=== PATIENT | female | born 1960 | race Caucasian/White ===

== ENCOUNTER 2020-06-09 08:50 | Outpatient (CLI) | payer MEDICARE, SELFPAY ==
[2020-06-09 09:10] LABS: Basophils Absolute Auto 0.04 K/mm3 (0.00-0.10); Basophils Percent Auto 0.5 % (0.0-1.0); Eosinophils Percent Auto 2.6 % (1.0-6.0); Hematocrit 46.1 % (35.0-49.0); Hemoglobin 13.5 g/dL (12.0-15.0); Immature Granulocyte Absolute 0.05 K/mm3 (0.00-0.00); Immature Granulocyte Percent A 0.7 % (0.0-0.0); Lymphocytes Percent Auto 26.2 % (18.0-42.0); Mean Corpuscular HGB Conc 29.3 g/dL (32.0-36.0); Mean Corpuscular Hemoglobin 27.4 pg (27.0-31.0); Mean Corpuscular Volume 93.5 fL (78.0-102.0); Mean Platelet Volume 8.6 fl (9.2-11.8); Monocytes Absolute Auto 0.61 K/mm3 (0.10-0.90); Neutrophils Absolute Auto 4.7 K/mm3 (1.7-7.2); Platelet Count Result 219 K/mm3 (150-420); Red Blood Count 4.93 M/mm3 (4.20-5.40); Red Cell Distribution Width 13.7 % (11.6-14.4); White Blood Count 7.6 K/mm3 (4.8-10.8)
[2020-06-09 09:37] LABS: Albumin Level 3.4 g/dL (3.4-5.0); Alkaline Phosphatase 115 U/L (46-116); Anion Gap 2 mmol/L (8-16); Aspartate Amino Transferase 11 U/L (15-37); Bilirubin,Total 0.6 mg/dL (0.00-1.00); Blood Urea Nitrogen 9 mg/dL (7-18); Calcium 8.8 mg/dL (8.5-10.1); Carbon Dioxide 34 mmol/L (21-32); Chloride 105 mmol/L (98-108); Estimated Glomerular Filt Rate > 60; Glucose 104 mg/dL (70-99); Osmolality Calculated 290 mOsm/kg (285-295); Potassium 4.4 mmol/L (3.5-5.1); Sodium 141 mmol/L (136-145); Total Protein 7.1 g/dL (6.4-8.2)
[2020-06-09 09:45] LABS: Alanine Aminotransferase 17 U/L (14-59)
== END 2020-06-09 08:51 | disposition home or self-care (01) ==
PROVIDERS: PCP Family Medicine; Visit Provider Family Medicine
DX: J96.11 Chronic respiratory failure with hypoxia (principal); J96.12 Chronic respiratory failure with hypercapnia
CPT/HCPCS: 36415; 80053; 85025

== ENCOUNTER 2020-12-22 09:30 | Outpatient (CLI) | payer MEDICARE, SELFPAY ==
[2020-12-22 09:42] LABS: Basophils Absolute Auto 0.08 K/mm3 (0.00-0.10); Basophils Percent Auto 0.8 % (0.0-1.0); Eosinophils Absolute Auto 0.27 K/mm3 (0.02-0.50); Eosinophils Percent Auto 2.8 % (1.0-6.0); Hematocrit 46.3 % (35.0-49.0); Hemoglobin 13.3 g/dL (12.0-15.0); Immature Granulocyte Absolute 0.05 K/mm3 (0.00-0.00); Immature Granulocyte Percent A 0.5 % (0.0-0.0); Lymphocytes Absolute Auto 2.71 K/mm3 (1.10-4.50); Lymphocytes Percent Auto 28.4 % (18.0-42.0); Mean Corpuscular HGB Conc 28.7 g/dL (32.0-36.0); Mean Corpuscular Hemoglobin 25.2 pg (27.0-31.0); Mean Corpuscular Volume 87.9 fL (78.0-102.0); Mean Platelet Volume 9.2 fl (9.2-11.8); Monocytes Absolute Auto 0.74 K/mm3 (0.10-0.90); Monocytes Percent Auto 7.8 % (2.0-11.0); Neutrophils Absolute Auto 5.7 K/mm3 (1.7-7.2); Neutrophils Percent Auto 59.7 % (50.0-70.0); Platelet Count Result 270 K/mm3 (150-420); Red Blood Count 5.27 M/mm3 (4.20-5.40); Red Cell Distribution Width 14.6 % (11.6-14.4); White Blood Count 9.5 K/mm3 (4.8-10.8)
[2020-12-22 11:14] LABS: Alanine Aminotransferase 20 U/L (14-59); Albumin Level 3.6 g/dL (3.4-5.0); Alkaline Phosphatase 108 U/L (46-116); Anion Gap 2 mmol/L (8-16); Aspartate Amino Transferase 11 U/L (15-37); Bilirubin,Total 0.6 mg/dL (0.00-1.00); Blood Urea Nitrogen 11 mg/dL (7-18); Calcium 9.2 mg/dL (8.5-10.1); Carbon Dioxide 39 mmol/L (21-32); Chloride 97 mmol/L (98-108); Cholesterol 189 mg/dL (0-200); Estimated Glomerular Filt Rate > 60; Glucose 101 mg/dL (70-99); HDL Direct 43 mg/dL (40-60); LDL Cholesterol Calculated 112 mg/dL (<130); Osmolality Calculated 285 mOsm/kg (285-295); Potassium 4.1 mmol/L (3.5-5.1); Sodium 138 mmol/L (136-145); Total Protein 7.6 g/dL (6.4-8.2); Triglycerides 168 mg/dL (0-150)
[2020-12-22 11:17] LABS: Thyroid Stimulating Hormone Reflex 1.11 u/IU/mL (0.36-3.74)
[2020-12-25 21:52] LABS: Vitamin D 25 Hydroxy 27 ng/mL (30-100)
== END 2020-12-22 09:31 | disposition home or self-care (01) ==
LOC: CHSLAB 09:32
PROVIDERS: PCP Family Medicine; Visit Provider Family Medicine
DX: J96.11 Chronic respiratory failure with hypoxia (principal); J96.12 Chronic respiratory failure with hypercapnia; E55.9 Vitamin D deficiency, unspecified; Z13.6 Encounter for screening for cardiovascular disorders; D34 Benign neoplasm of thyroid gland
CPT/HCPCS: 36415; 80053; 80061; 82306; 84443; 85025

== ENCOUNTER 2021-08-05 09:18 | Outpatient (CLI) | payer MEDICARE, SELFPAY ==
[2021-08-05 09:55] LABS: Basophils Absolute Auto 0.05 K/mm3 (0.00-0.10); Basophils Percent Auto 0.5 % (0.0-1.0); Eosinophils Absolute Auto 0.15 K/mm3 (0.02-0.50); Eosinophils Percent Auto 1.6 % (1.0-6.0); Hematocrit 45.4 % (35.0-49.0); Hemoglobin 12.3 g/dL (12.0-15.0); Immature Granulocyte Absolute 0.07 K/mm3 (0.00-0.00); Immature Granulocyte Percent A 0.7 % (0.0-0.0); Immature Platelet Fraction Pct 1.5 % (1.0-7.0); Immature Reticulocyte Fraction 24.2 % (2.0-16.52); Lymphocytes Absolute Auto 1.87 K/mm3 (1.10-4.50); Lymphocytes Percent Auto 19.9 % (18.0-42.0); Mean Corpuscular HGB Conc 27.1 g/dL (32.0-36.0); Mean Corpuscular Hemoglobin 22.2 pg (27.0-31.0); Mean Corpuscular Volume 81.9 fL (78.0-102.0); Mean Platelet Volume 9.2 fl (9.2-11.8); Monocytes Percent Auto 7.4 % (2.0-11.0); Neutrophils Absolute Auto 6.6 K/mm3 (1.7-7.2); Neutrophils Percent Auto 69.9 % (50.0-70.0); Platelet Count Result 283 K/mm3 (150-420); Red Blood Count 5.54 M/mm3 (4.20-5.40); Red Cell Distribution Width 16.6 % (11.6-14.4); Reticulocyte Hemoglobin Conten 18.5 pg (28.0-35.0); Reticulocyte Percent 1.64 % (0.50-1.50); Reticulocytes Absolute 0.09 M/mm3 (0.02-0.1); White Blood Count 9.4 K/mm3 (4.8-10.8)
[2021-08-05 10:50] LABS: Alanine Aminotransferase 12 U/L (14-59); Albumin Level 3.1 g/dL (3.4-5.0); Alkaline Phosphatase 120 U/L (46-116); Anion Gap 3 mmol/L (8-16); Aspartate Amino Transferase 13 U/L (15-37); Bilirubin,Total 0.4 mg/dL (0.00-1.00); Blood Urea Nitrogen 11 mg/dL (7-18); Calcium 8.9 mg/dL (8.5-10.1); Carbon Dioxide 40 mmol/L (21-32); Chloride 96 mmol/L (98-108); Estimated Glomerular Filt Rate > 60; Ferritin 10 ng/mL (8-252); Folic Acid 3.5 ng/mL (8.6->20); Glucose 101 mg/dL (70-99); Iron 23 ug/dL (50-170); Osmolality Calculated 287 mOsm/kg (285-295); Percent Iron Saturation 5 % (12-57); Potassium 4.6 mmol/L (3.5-5.1); Sodium 139 mmol/L (136-145); Total Protein 7.4 g/dL (6.4-8.2); Vitamin B12 714 pg/mL (193-986)
[2021-08-07 10:34] LABS: Vitamin D 25 Hydroxy 23 ng/mL (30-100)
== END 2021-08-05 09:19 | disposition home or self-care (01) ==
LOC: CHSLAB 09:25
PROVIDERS: PCP Family Medicine; Visit Provider Family Medicine
DX: J96.11 Chronic respiratory failure with hypoxia (principal); J96.12 Chronic respiratory failure with hypercapnia; E55.9 Vitamin D deficiency, unspecified; D34 Benign neoplasm of thyroid gland; R71.8 Other abnormality of red blood cells
CPT/HCPCS: 36415; 80053; 82306; 82607; 82728; 82746; 83540; 83550; 84443; 85025; 85046; 85055

== ENCOUNTER 2021-09-07 09:01 | Inpatient (IN) | payer OTHER, SELFPAY ==
[2021-09-07] VITALS (24 sets, daily range): BP systolic 95–131; BP diastolic 51–84; PULSE 91–116; RESP 18–27; TEMP 36.6–37.7; O2SAT 86–97; BMI 35.6
--- NOTE | ~2021-09-07 | XR_ITS ---
XR chest 1V portable DATE: 09/10/2021 07:33 INDICATION: Shortness of breath. Covid infection. TECHNIQUE: Portable AP chest on 09/10/2021 at 0708 hours COMPARISON: 09/09/2021 portable AP chest FINDINGS: There is prominent infiltrate in the left mid and lower lung zones and right lower lung zon e. There is cardiomegaly, pulmonary vascular congestion and redistribution. There is mild prominence of minor fissure which may indicate subpleural edema. Small pleural effusions are suggested. Diffuse osteopenia. IMPRESSION: Cardiomegaly, pulmonary vascular congestion, bilateral infiltrates, left greater the righ t. Congestive heart failure and pulmonary edema are suggested. Pneumonia is not excluded. Congestive changes and bilateral infiltrates are increased since 09/09/2021 Reviewed, dictated and finalized at location A. HER AND SHEARER IMPRESSION: Cardiomegaly, pulmonary vascular congestion, bilateral infiltrates, left greater the right. Congestive heart failure and pulmonary edema are sugge sted. Pneumonia is not excluded. Congestive changes and bilateral infiltrates are increased since 09/09/2021
--- NOTE | ~2021-09-07 | XR_ITS ---
EXAMINATION: XR chest 1V portable EXAM DATE: 09/07/2021 13:12 INDICATION: dyspnea, hypoxia. TECHNIQUE: Portable AP frontal chest x-ray was obtained. Comparison is made to prior examination from 08/09/2016. FINDINGS: There is moderate amount of ill-defined bilateral airspace disease, indistinct reticulation . Likely bilateral pneumonia and/or edema. No pneumothorax or pleural effusion. Cardiomediastinal french houette is normal. IMPRESSION: 1. Moderate amount of ill-defined pneumonia or edema. Reviewed, dictated and finalized at location G. HT INSPECTOR
--- NOTE | ~2021-09-07 | XR_ITS ---
EXAMINATION: XR chest 1V portable EXAM DATE: 09/09/2021 08:21 INDICATION: f/u covid pneumonia TECHNIQUE: Portable AP frontal chest x-ray was obtained. Comparison is made to prior examination from 09/08/2021. FINDINGS: There is cardiomegaly. Again there is bibasilar indistinct reticulation, could be edema or pneumonia. Small left pleural effusion. No pneumothorax. There are no osseous abnormalities identifie d. There is aortic arteriosclerosis. IMPRESSION: 1. Moderate amount of bilateral ill-defined airspace disease, pneumonia and/or edema. 2. Small left pleural effusion. 3. Cardiomegaly. Reviewed, dictated and finalized at location G. L MAKER FIREARMS IMPRESSION: 1. Moderate amount of bilateral ill-defined airspace disease, pneumonia and/o r edema. 2. Small left pleural effusion. 3. Cardiomegaly.
--- NOTE | ~2021-09-07 | CT_ITS ---
EXAMINATION: CT brain wo con EXAM DATE: 09/07/2021 13:12 INDICATION: Altered mental status Confusion/Covid Positve/Low O2sats/On Bipap . TECHNIQUE: Spiral CT of the head was performed without contrast. Axial, coronal and sagittal images were reviewed. The dose-length product (DLP) for this examination was 681.00 mGy-cm. The exposure w as tailored according to patient size, and iterative reconstruction (ASIR) was used as additional dos e reduction technique. Comparison is made to prior examination from 07/30/2017. FINDINGS: Study is limited due to patient motion. There is no acute intraparenchymal hemorrhage. No evidence of intraparenchymal brain mass lesion. No evidence of acute infarction. There is no mass e ffect or midline shift. The ventricles are normal in size. There are no extra-axial collections. T here are no acute calvarial fractures. The orbits are unremarkable. Soft tissue is unremarkable. Th e visualized sinuses and mastoid air cells are well aerated. IMPRESSION: 1. No acute intracranial findings. Reviewed, dictated and finalized at location G. IR ELECTRIC MOTOR ASSEMBLER
--- NOTE | 2021-09-07 09:06 | ECG_ITS ---
Measurements Intervals [place] Rate: 117 P: 79 ID: [id number] QRS: 62 QRSD: 110 T: 52 QT: 328 QTc: 458 Interpretive Statements SINUS TACHYCARDIA ATRIAL COUPLET AND ATRIAL PREMATURE COMPLEXES INCOMPLETE RIGHT BUNDLE BRANCH BLOCK BASELINE ARTIFACT- I, II, III, AVR, AVL, V1-V6 ABNORMAL ECG Electronically Signed On 09-07-2021 14:05:01 HVAC COMMERCIAL SALESPERSON by Hong Meade D.O.
--- NOTE | 2021-09-07 09:06 | ED.SOB ---
HPI - SOB/Dyspnea General Chief Complaint: Shortness of Breath/Dyspnea Stated Complaint: ambulance Time Seen by Provider: 09/07/21 09:06 Source: patient Mode of arrival: EMS Limitations: altered mental status History of Present Illness HPI Narrative: 61-year-old woman with a history of COPD with chronic respiratory failure both hypercarbic and hypoxic brought to the emergency department by EMS. Family states that she has not been well lately and seems confused and out of it. Patient does not give a good history but denies chest pain and vomiting. MD elicited complaint: shortness of breath and cough Pertinent past history: COPD and congestive heart failure Onset (ago): day(s) Timing: constant Severity: severe Known history of: COPD and congestive heart failure Associated symptoms: cough and wheezing Treatment prior to arrival: oxygen Related Data Home oxygen amount: other (Unknown) Home Medications Medication Instructions Recorded Confirmed amitriptyline 10 mg PO HS 09/07/21 09/07/21 apixaban [Eliquis] 2.5 mg PO BID 09/07/21 09/07/21 escitalopram oxalate 20 mg PO DAILY 09/07/21 09/07/21 furosemide 40 mg PO DAILY 09/07/21 09/07/21 hydroxyzine HCl 25 mg PO TID PRN 09/07/21 09/07/21 montelukast 10 mg PO DAILY 09/07/21 09/07/21 omeprazole 40 mg PO DAILY 09/07/21 09/07/21 ropinirole 4 mg PO HS 09/07/21 09/07/21 spironolactone 25 mg PO DAILY 09/07/21 09/07/21 trazodone 50 mg PO HS 09/07/21 09/07/21 Allergies Allergy/AdvReac Type Severity Reaction Status Date / Time No Known Drug Allergies Allergy Verified 09/07/21 09:22 Review of Systems Review of Systems: ROS unobtainable: Yes unobtainable due to mental status PMFSH Past Medical History Medical History (Updated 09/07/21 @ 14:03 by Chris Pineda MD) Congestive heart failure COPD (chronic obstructive pulmonary disease) CVA (cerebral vascular accident) GERD (gastroesophageal reflux disease) Jugular vein thrombosis Family History Family History (Updated 09/22/16 @ 14:11 by DOCTOR UNKNOWN) Father Hypertension Acute myocardial infarction Sibling Hypertension Mother Family history of heart disease in male family member before age 55 Brother Acute myocardial infarction Father Acute myocardial infarction Other Cerebrovascular accident Family history of cardiovascular disease Social History Social History (Updated 09/07/21 @ 11:38 by Chris Pineda MD) Smoking status: Current every day smoker Alcohol intake: never Living arrangements: with family Exam Const: General: alert and ill appearing acutely Nutritional Appearance: obese Other: Moderate acute respiratory distress. Hard of hearing. Mildly confused. HENMT: Head: normal to inspection Ears: external ears normal, TM's normal bilaterally and EAC's normal General nose exam: Normal nares present Face and sinus: normal facial exam Mouth: Yes moist mucous membranes Throat: posterior oropharynx normal Eyes: Conjunctivae: conjunctivae normal Pupils: Equal, round and reactive pupils present EOM: EOMs intact bilaterally Resp: Effort & Inspection: labored and tachypneic Auscultation: rales diffuse, wheezes throughout and diminished lung sounds Cardio: Rate: tachycardic Rhythm: regular rhythm GI: GI Palp: Yes Soft to palpation and No Tenderness to palpation present (GI) Skin: General skin exam: normal color, no jaundice and no pallor Rashes: no rashes Other: Cool, dry extremities Neuro: General: moves all extremities, no focal motor deficits and CN's II-XI intact bilaterally Speech: normal speech Extrem: General: normal to inspection and no clubbing, cyanosis or edema Psych: Mental Status: mental status grossly normal Affect: normal affect Attitude: cooperative Thought content: Yes Normal thought content present Course Vital Signs Vital signs: Vital Signs Temperature 37.7 C H 09/07/21 09:10 Pulse Rate 109 H 09/07/21 09:10 Respiratory Rate 26 H 08/24
[2021-09-07 09:34] LABS: Basophils Absolute Auto 0.02 K/mm3 (0.00-0.10); Basophils Percent Auto 0.2 % (0.0-1.0); Hematocrit 43.8 % (35.0-49.0); Hemoglobin 11.6 g/dL (12.0-15.0); Immature Granulocyte Absolute 0.29 K/mm3 (0.00-0.00); Immature Granulocyte Percent A 2.3 % (0.0-0.0); Lymphocytes Absolute Auto 0.92 K/mm3 (1.10-4.50); Lymphocytes Percent Auto 7.4 % (18.0-42.0); Mean Corpuscular HGB Conc 26.5 g/dL (32.0-36.0); Mean Corpuscular Volume 83.1 fL (78.0-102.0); Mean Platelet Volume 8.8 fl (9.2-11.8); Monocytes Absolute Auto 1.25 K/mm3 (0.10-0.90); Monocytes Percent Auto 10.1 % (2.0-11.0); Neutrophils Absolute Auto 9.9 K/mm3 (1.7-7.2); Nucleated Red Blood Cells Absolute Auto 0.05 K/mm3 (0.00-0.00); Nucleated Red Blood Cells Perc 0.4 % (0-0.0); Platelet Count Result 243 K/mm3 (150-420); Red Blood Count 5.27 M/mm3 (4.20-5.40); Red Cell Distribution Width 17.7 % (11.6-14.4); White Blood Count 12.4 K/mm3 (4.8-10.8)
[2021-09-07 09:36] LABS: Carboxyhemoglobin 1.4 % (0-1.5); HCO3 ABG 47.3 mmol/L (23-29); Methemoglobin ABG 0.3 % (0-1.5); Oxygen Content ABG 15.9 %vol (16.0-22.0); Oxygen Saturation ABG 90.9 % (95-97); Oxyhemoglobin 89.4 % (94-100); PO2 ABG 62.4 mmHg (80-90); Reduced Hemoglobin 8.9 % (0-1.5); Total Hemoglobin 12.6 g/dL (12.0-18.0); pH ABG 7.28 (7.35-7.45)
[2021-09-07 09:37] LABS: PCO2 ABG 102.5 mmHg (35-45)
--- NOTE | 2021-09-07 09:37 | PC.NURSE ---
Lab called with critical PCO2 of 102.5 Dr. Pineda notified.
[2021-09-07 09:38] LABS: Device NON-REBREATHER MASK; Modified Allen's Test Pass; Site Drawn RIGHT RADIAL
[2021-09-07 09:43] LABS: INR 1.1; Partial Thromboplastin Time 35.8 SEC (23.90-30.70); Prothrombin Time 11.9 Seconds (9.50-12.10)
[2021-09-07 09:48] LABS: Lactic Acid Reflex 1.3 mmol/L (0.4-2.0)
[2021-09-07] MEDS: methylPREDNISolone SOD SUCC 125 MG VIAL IV PUSH (09:48)
--- NOTE | 2021-09-07 09:50 | PC.NURSE ---
Spoke to who reports pt had not been feeling well this week. States pt had been concerned for UTI. Reports pt not wearing home oxygen like normal. States he was having a hard time getting her to keep her CPAP on and she was out of it. states pt is a full code. He was unaware of her home medications. Did reports she has COPD and wears home oxygen but was unsure how much. Dr. Pineda notified of this conversation.
[2021-09-07 09:51] LABS: Alanine Aminotransferase 12 U/L (14-59); Albumin Level 2.8 g/dL (3.4-5.0); Alkaline Phosphatase 103 U/L (46-116); Aspartate Amino Transferase 15 U/L (15-37); Bilirubin,Total 0.4 mg/dL (0.00-1.00); Blood Urea Nitrogen 23 mg/dL (7-18); Calcium 9.1 mg/dL (8.5-10.1); Chloride 89 mmol/L (98-108); Estimated CRCL calculation 56 ml/min; Estimated Glomerular Filt Rate 52; Glucose 115 mg/dL (70-99); Osmolality Calculated 290 mOsm/kg (285-295); Potassium 3.9 mmol/L (3.5-5.1); Sodium 138 mmol/L (136-145); Total Protein 8.1 g/dL (6.4-8.2)
[2021-09-07] MEDS: ALBUTEROL SULFATE NEB 2.5 MG/3 ML INH 5 MG INHALATION (09:52)
[2021-09-07 09:54] LABS: Carbon Dioxide > 45 mmol/L (21-32)
[2021-09-07 09:55] LABS: CRP 15.2 mg/dL (0.0-0.9)
[2021-09-07 10:09] LABS: Influenza A QL RT-PCR Negative (Negative); Influenza B QL RT-PCR Negative (Negative)
[2021-09-07 10:10] LABS: SARS-CoV-2 RNA PCR Positive (Negative)
[2021-09-07] MEDS: LORazepam INJ (*CRX) 2 MG/ML VIAL 0.5 MG IV PUSH (10:16)
--- NOTE | 2021-09-07 11:45 | PC.NURSE ---
Floor notified of admission. Isabell states they will need to move some things around on the floor and she will get back to bid writer with bed assignment.
--- NOTE | 2021-09-07 12:10 | PC.NURSE ---
Pt to CT with Fabio Wiseman Joann, RT, and comic book writer. Pt remianed on bi-pap during transport. Pulse ox and pulse being monitored during transport. Pt tolerated well.
--- NOTE | 2021-09-07 12:40 | PC.NURSE ---
Urine from stallings obtained and sent to lab.
[2021-09-07 12:47] LABS: Appearance Urine Sl Cloudy (Clear); Bilirubin Urine Negative (Negative); Color Urine Yellow (Yellow); Glucose Urine UA Negative (Negative); Ketones Urine Negative (Negative); Leukocyte Esterase Ur Negative LEU/UL (Negative); Nitrate Urine Negative (Negative); Protein Urine 1+ (Negative); Specific Grav Ur >= 1.030 (1.010-1.020); Urobilinogen Urine 0.2 mg/dL (0.2-1.0)
[2021-09-07 12:51] LABS: Add Urine Microscopic? YES; Bacteria Urine 4+ /hpf; Blood Urine Trace-Intact (Negative); RBC Urine None seen /hpf (0-2); Squamous Epithelial Cell Urine Rare /hpf (Few)
--- NOTE | 2021-09-07 12:54 | PC.NURSE ---
Spoke to Isabell on the floor and pt will be going to room 208 but they are awaiting one discharge to be able to have tele for this pt.
[2021-09-07 13:25] LABS: Base Excess ABG 19.7 mmol/L (0-2); HCO3 ABG 50.5 mmol/L (23-29); Oxygen Content ABG 16.7 %vol (16.0-22.0); Oxygen Saturation ABG 96.1 % (95-97); Oxyhemoglobin 93.5 % (94-100); PO2 ABG 88.2 mmHg (80-90); Total Hemoglobin 12.6 g/dL (12.0-18.0); pH ABG 7.33 (7.35-7.45)
[2021-09-07 13:27] LABS: Device BIPAP; Fractional Inspired Oxygen 60 %; Modified Allen's Test Pass; PCO2 ABG 98.2 mmHg (35-45); Site Drawn RIGHT RADIAL
--- NOTE | 2021-09-07 13:27 | PC.NURSE ---
Lab called with PCO2 of 98.2. Dr. Pineda notified.
[2021-09-07 13:29] LABS: Expiratory Pressure 5 cmH2O; Inspiratory Pressure 12 cmH2O
[2021-09-07 13:50] LABS: NT Pro B Type Natriuretic Pept 705 pg/mL (0-125); Troponin I 52.5 ng/L (0.00-60.4)
[2021-09-07] MEDS: methylPREDNISolone SOD SUCC 40 MG VIAL IV PUSH ×2 (14:40→22:34)
--- NOTE | 2021-09-07 15:47 | PC.NURSE ---
Phone report given to ROX Thomas
--- NOTE | 2021-09-07 16:14 | PHAR ---
LAURENT BARICITINIB RENAL DOSE CHANGE TO 2 MG DAILY STARTING TODAY (09/07/21) WITH DR. MAZA IN ER
[2021-09-07 17:31] LABS: Troponin I 43.1 ng/L (0.00-60.4)
[2021-09-07] MEDS: REMDESIVIR 200 MG/NS 250 ML 200 MG/250 ML BAG 250 MG IVPB (18:27)
[2021-09-07] MEDS: DEXTROSE 5%/0.9% SOD CHL 1,000 ML 100 ML IV CONT (18:27)
[2021-09-07 19:47] LABS: Base Excess ABG 27.3 mmol/L (0-2); HCO3 ABG 62.6 mmol/L (23-29); Oxygen Content ABG 16.4 %vol (16.0-22.0); Oxygen Saturation ABG 97.5 % (95-97); Oxyhemoglobin 96.3 % (94-100); PO2 ABG 114.8 mmHg (80-90)
[2021-09-07 19:52] LABS: Device BIPAP; Modified Allen's Test Pass; PCO2 ABG 163.5 mmHg (35-45); Site Drawn LEFT RADIAL
[2021-09-07 19:53] LABS: Expiratory Pressure 8 cmH2O; Inspiratory Pressure 16 cmH2O
[2021-09-08] VITALS (11 sets, daily range): BP systolic 100–111; BP diastolic 50–70; PULSE 85–107; RESP 16–28; TEMP 36.5–37; O2SAT 94–99
[2021-09-08 00:20] LABS: Base Excess ABG 25.3 mmol/L (0-2); HCO3 ABG 61.1 mmol/L (23-29); Oxygen Content ABG 12.2 %vol (16.0-22.0); Oxygen Saturation ABG 69.9 % (95-97); PO2 ABG 42.3 mmHg (80-90); Total Hemoglobin 12.6 g/dL (12.0-18.0); pH ABG 7.18 (7.35-7.45)
[2021-09-08 00:25] LABS: Device BIPAP; Modified Allen's Test Pass; Site Drawn RIGHT RADIAL
[2021-09-08 00:27] LABS: PCO2 ABG 166.4 mmHg (35-45)
[2021-09-08 00:28] LABS: Expiratory Pressure 10 cmH2O; Inspiratory Pressure 20 cmH2O
--- NOTE | 2021-09-08 01:01 | PC.NURSE ---
Pt much more responsive after changing oxygen delivery from BIPAP to High-Flow. Ice chips were brought to pt and room temp lowered since Cony verbalized she felt very warm. Dr. Pineda placed a fan in the room per pt request. Call light placed within reach and bed is in lowest position for pt safety.
[2021-09-08] MEDS: DEXTROSE 5%/0.9% SOD CHL 1,000 ML 100 ML IV CONT ×2 (04:35→14:29)
[2021-09-08] MEDS: methylPREDNISolone SOD SUCC 40 MG VIAL IV PUSH ×3 (06:02→22:53)
--- NOTE | 2021-09-08 06:19 | PC.NURSE ---
Pt rounding complete. Pt was moved up in bed and educated not to tug on her stallings catheter tube. Pt verbalized understanding, but reinforcement is needed. Call light within reach.
[2021-09-08 06:29] LABS: Hematocrit 43.4 % (35.0-49.0); Mean Corpuscular HGB Conc 25.3 g/dL (32.0-36.0); Mean Corpuscular Hemoglobin 21.6 pg (27.0-31.0); Mean Corpuscular Volume 85.1 fL (78.0-102.0); Mean Platelet Volume 9.4 fl (9.2-11.8); Platelet Count Result 210 K/mm3 (150-420); Red Cell Distribution Width 17.2 % (11.6-14.4); White Blood Count 11.1 K/mm3 (4.8-10.8)
[2021-09-08 06:37] LABS: INR 1.1; Prothrombin Time 11.9 Seconds (9.50-12.10)
[2021-09-08 06:46] LABS: Alanine Aminotransferase 12 U/L (14-59); Albumin Level 2.6 g/dL (3.4-5.0); Alkaline Phosphatase 90 U/L (46-116); Aspartate Amino Transferase 14 U/L (15-37); Bilirubin,Total 0.3 mg/dL (0.00-1.00); Blood Urea Nitrogen 24 mg/dL (7-18); Calcium 9.3 mg/dL (8.5-10.1); Chloride 96 mmol/L (98-108); Estimated CRCL calculation 81 ml/min; Estimated Glomerular Filt Rate > 60; Glucose 120 mg/dL (70-99); Osmolality Calculated 301 mOsm/kg (285-295); Potassium 3.9 mmol/L (3.5-5.1); Sodium 143 mmol/L (136-145); Total Protein 7.6 g/dL (6.4-8.2)
[2021-09-08 06:55] LABS: Carbon Dioxide > 45 mmol/L (21-32)
[2021-09-08 06:56] LABS: Lactic Acid Reflex 0.7 mmol/L (0.4-2.0)
[2021-09-08 07:14] LABS: Alanine Aminotransferase 12 U/L (14-59)
[2021-09-08 07:15] LABS: Aspartate Amino Transferase 14 U/L (15-37)
[2021-09-08 07:37] LABS: Base Excess ABG 28.1 mmol/L (0-2); HCO3 ABG 63.1 mmol/L (23-29); Oxygen Content ABG 13.5 %vol (16.0-22.0); Oxygen Saturation ABG 79.5 % (95-97); Oxyhemoglobin 78.6 % (94-100); PO2 ABG 45.4 mmHg (80-90); Total Hemoglobin 12.2 g/dL (12.0-18.0); pH ABG 7.23 (7.35-7.45)
[2021-09-08 07:59] LABS: Device BIPAP; Modified Allen's Test Pass; PCO2 ABG 155.6 mmHg (35-45); Site Drawn RIGHT RADIAL
[2021-09-08 08:00] LABS: NT Pro B Type Natriuretic Pept 627 pg/mL (0-125)
[2021-09-08 08:01] LABS: Expiratory Pressure 10 cmH2O; Inspiratory Pressure 20 cmH2O
[2021-09-08 08:39] LABS: Band Neutrophils Percent 0 % (0-6); Basophils Percent Manual 0 % (0-1); Eosinophils Percent Manual 0 % (1-6); Lymphocytes Absolute Manual 0.55 K/mm3 (1.1-4.5); Lymphocytes Percent Manual 5 % (18-44); Metamyelocytes Percent 4 %; Monocytes Absolute Manual 0.44 K/mm3 (0.1-0.90); Monocytes Percent Manual 4 % (3-9); Neutrophils Absolute Manual 9.65 K/mm3 (1.7-7.2); Neutrophils Percent Manual 87 % (46-73); Platelet Estimate Adequate (Adequate)
[2021-09-08] MEDS: MONTELUKAST SODIUM 10 MG TABLET PO (10:24)
[2021-09-08] MEDS: NICOTINE (*PBKC) 21 MG PATCH 1 PATCH TRANSDERM (10:24)
[2021-09-08] MEDS: PANTOPRAZOLE 40 MG TABLET PO ×2 (10:24→22:55)
[2021-09-08] MEDS: APIXABAN 2.5 MG TABLET PO ×2 (10:25→17:34)
[2021-09-08] MEDS: FUROSEMIDE 40 MG TABLET PO (10:25)
[2021-09-08] MEDS: ESCITALOPRAM OXALATE 10 MG TABLET 20 MG PO (10:25)
[2021-09-08] MEDS: SPIRONOLACTONE 25 MG TABLET PO (10:25)
[2021-09-08] MEDS: BARICITINIB 2 MG TABLET 4 MG PO (10:31)
[2021-09-08] MEDS: REMDESIVIR 100 MG/NS 250 ML 100 MG/250 ML BAG 250 MG IVPB (10:39)
--- NOTE | 2021-09-08 12:41 | PM.IMHP ---
H&P: HPI History of Present Illness Date/Time: 09/08/21 12:41 this is a 61-year-old female who presents to urgent care with shortness of breath and oxygenation status. Patient has a past medical history of heart failure, COPD, CAD, GERD, GERD,and Jugular vein thrombosis. Patient is 1 month and she was just told but she continues to be confused. Patient is alert and orientated to self only. Patient is a poor historian. Vital signs 107/70, 98, 26, 97.7, 99% on nasal cannula with FiO2 of 70%, WBC 12.4 hemoglobin 11.6 hematocrit 43.8 platelets 2.3 ABG pH 7.28 PCO2 102.5 PO2 62 on 4 bicarb 47.3 sodium 138, potassium 3.9, BUN 23 , creatinine 1.07, glucose 158, lactic acid 1.3, AST 15, ALT 12, alkaline phosphatase 103, troponin 57, CRP 15.2, BUN 75, COVID-positive chest x-ray indicate pneumonia or edema, CT of the head no acute finding EKG sinus tachycardia with a heart rate of 117. Patient will be admitted for COVID-pneumonia, AMS <MANDIE Nunez - Last Filed: 09/09/21 07:20> Chief Complaint: sob, ams <MANDIE Nunez - Last Filed: 09/09/21 07:20> Review of Systems Review of Systems: ROS unobtainable: Yes unobtainable due to mental status <MANDIE Nunez - Last Filed: 09/09/21 07:20> [facility] Past Medical History Medical History: Medical History (Updated 09/07/21 @ 14:03 by Chris Pineda MD) Congestive heart failure COPD (chronic obstructive pulmonary disease) CVA (cerebral vascular accident) GERD (gastroesophageal reflux disease) Jugular vein thrombosis <MANDIE Nunez - Last Filed: 09/09/21 07:20> Family History Family History: Family History (Updated 09/22/16 @ 14:11 by DOCTOR UNKNOWN) Father Hypertension Acute myocardial infarction Sibling Hypertension Mother Family history of heart disease in male family member before age 55 Brother Acute myocardial infarction Father Acute myocardial infarction Other Cerebrovascular accident Family history of cardiovascular disease <MANDIE Nunez - Last Filed: 09/09/21 07:20> Social History Social History: Social History (Updated 09/07/21 @ 11:38 by Chris Pineda MD) Smoking packs per day: 1 Smoking cigarettes per day: 20.0 Smoking status: Current every day smoker Tobacco type: cigarettes Second hand tobacco smoke exposure: Yes Alcohol intake: never Living arrangements: with family <MANDIE Nunez - Last Filed: 09/09/21 07:20> Meds Home Medications and Allergies Home medications: Home Medications Medication Instructions Recorded Confirmed Type amitriptyline 10 mg PO HS 09/07/21 09/07/21 History apixaban [Eliquis] 2.5 mg PO BID 09/07/21 09/07/21 History escitalopram oxalate 20 mg PO DAILY 09/07/21 09/07/21 History furosemide 40 mg PO DAILY 09/07/21 09/07/21 History hydroxyzine HCl 25 mg PO TID PRN 09/07/21 09/07/21 History montelukast 10 mg PO DAILY 09/07/21 09/07/21 History omeprazole 40 mg PO DAILY 09/07/21 09/07/21 History ropinirole 4 mg PO HS 09/07/21 09/07/21 History spironolactone 25 mg PO DAILY 09/07/21 09/07/21 History trazodone 50 mg PO HS 09/07/21 09/07/21 History <MANDIE Nunez - Last Filed: 09/09/21 07:20> Allergies/Adverse reactions: Allergies Allergy/AdvReac Type Severity Reaction Status Date / Time No Known Drug Allergies Allergy Verified 09/07/21 09:22 <MANDIE Nunez - Last Filed: 09/09/21 07:20> Vital Signs Vital Signs - 24 hr 09/07/21 13:00 09/07/21 14:00 09/07/21 14:25 Temperature Pulse Rate 101 H 94 98 Respiratory Rate 18 18 20 Blood Pressure 95/52 L 129/84 Pulse Oximetry 93 97 95 09/07/21 16:21 09/07/21 16:30 09/07/21 16:42 Temperature 97.8 F Pulse Rate 98 102 H Respiratory Rate 24 H 22 H 24 H Blood Pressure 127/51 L 104/80 Pulse Oximetry 97 94 96 09/07/21 17:00 09/07/21 19:00 09/07/21 20:00 Temperature 98 F Pulse Rate 92 95 91 Respiratory Rate 19
[2021-09-08] MEDS: guaiFENesin 12 HR 600 MG TABCR 1200 MG PO ×2 (17:33→22:56)
[2021-09-08] MEDS: BENZONATATE 100 MG CAPSULE 200 MG PO (17:33)
[2021-09-08] MEDS: ALBUTEROL SULFATE (*SP) INHALER 2 PUFF INHALATION ×2 (17:34→22:56)
[2021-09-08] MEDS: FLUTICASONE PROPIONATE 0.05% NA SPR 16 GM BTL (*BKC) 1 SPRAY NASAL ×2 (17:34→22:56)
[2021-09-08] MEDS: LORATADINE 10 MG TABLET PO (17:34)
[2021-09-08] MEDS: AMITRIPTYLINE HCL 10 MG TABLET PO (22:54)
[2021-09-08] MEDS: rOPINIRole HCL 1 MG TABLET 4 MG PO (22:54)
[2021-09-08] MEDS: traZODone HCL 50 MG TABLET PO (22:56)
[2021-09-09] VITALS (10 sets, daily range): BP systolic 107–145; BP diastolic 48–78; PULSE 76–108; RESP 17–23; TEMP 35.5–37.1; O2SAT 74–100
--- NOTE | 2021-09-09 02:27 | PC.NURSE ---
Pt rounding complete. Date on whiteboard updated. Pt was showing signs of confusion asking, Did they leave, and can I go to bed? Pt was reoriented to her room and told she was already in bed. HOB slightly lowered to have Cony be a bit more comfortable. Call light is within reach and bed is in lowest position with the bed alarm on for pt safety.
[2021-09-09] MEDS: DEXTROSE 5%/0.9% SOD CHL 1,000 ML 100 ML IV CONT (03:30)
[2021-09-09] MEDS: methylPREDNISolone SOD SUCC 40 MG VIAL IV PUSH ×3 (05:19→20:40)
[2021-09-09 06:31] LABS: HCO3 ABG 55.2 mmol/L (23-29); Oxygen Content ABG 15.4 %vol (16.0-22.0); Oxygen Saturation ABG 97.2 % (95-97); Oxyhemoglobin 96.7 % (94-100); PO2 ABG 103.1 mmHg (80-90); Total Hemoglobin 11.2 g/dL (12.0-18.0); pH ABG 7.27 (7.35-7.45)
[2021-09-09 06:32] LABS: Basophils Absolute Auto 0.02 K/mm3 (0.00-0.10); Basophils Percent Auto 0.2 % (0.0-1.0); Hematocrit 39.8 % (35.0-49.0); Hemoglobin 10.2 g/dL (12.0-15.0); Immature Granulocyte Absolute 0.22 K/mm3 (0.00-0.00); Immature Granulocyte Percent A 2.7 % (0.0-0.0); Lymphocytes Absolute Auto 0.98 K/mm3 (1.10-4.50); Lymphocytes Percent Auto 11.9 % (18.0-42.0); Mean Corpuscular HGB Conc 25.6 g/dL (32.0-36.0); Mean Corpuscular Hemoglobin 21.8 pg (27.0-31.0); Mean Corpuscular Volume 85.2 fL (78.0-102.0); Mean Platelet Volume 9.5 fl (9.2-11.8); Monocytes Absolute Auto 0.43 K/mm3 (0.10-0.90); Monocytes Percent Auto 5.2 % (2.0-11.0); Neutrophils Absolute Auto 6.6 K/mm3 (1.7-7.2); Platelet Count Result 185 K/mm3 (150-420); Red Blood Count 4.67 M/mm3 (4.20-5.40); White Blood Count 8.2 K/mm3 (4.8-10.8)
[2021-09-09 06:55] LABS: INR 1.2; Prothrombin Time 12.5 Seconds (9.50-12.10)
[2021-09-09 07:00] LABS: Alanine Aminotransferase 11 U/L (14-59); Albumin Level 2.3 g/dL (3.4-5.0); Alkaline Phosphatase 79 U/L (46-116); Aspartate Amino Transferase 13 U/L (15-37); Bilirubin,Total 0.2 mg/dL (0.00-1.00); Blood Urea Nitrogen 22 mg/dL (7-18); Calcium 9.2 mg/dL (8.5-10.1); Chloride 97 mmol/L (98-108); Estimated CRCL calculation 99 ml/min; Estimated Glomerular Filt Rate > 60; Glucose 138 mg/dL (70-99); Modified Allen's Test Pass; NT Pro B Type Natriuretic Pept 808 pg/mL (0-125); Osmolality Calculated 297 mOsm/kg (285-295); PCO2 ABG 123.2 mmHg (35-45); Potassium 3.8 mmol/L (3.5-5.1); Site Drawn RIGHT RADIAL; Sodium 141 mmol/L (136-145); Total Protein 6.6 g/dL (6.4-8.2)
[2021-09-09 07:01] LABS: Device HIGH FLOW NASAL CANN; Fractional Inspired Oxygen 70 %
--- NOTE | 2021-09-09 07:11 | PC.NURSE ---
Dr. Nath notified of pt's critical PcO2 level; no new orders at this time.
[2021-09-09 07:23] LABS: Carbon Dioxide > 45 mmol/L (21-32)
[2021-09-09] MEDS: FLUTICASONE PROPIONATE 0.05% NA SPR 16 GM BTL (*BKC) 1 SPRAY NASAL ×2 (10:30→20:39)
[2021-09-09] MEDS: PANTOPRAZOLE 40 MG TABLET PO ×2 (10:30→20:40)
[2021-09-09] MEDS: BENZONATATE 100 MG CAPSULE 200 MG PO ×3 (11:00→17:00)
[2021-09-09] MEDS: BARICITINIB 2 MG TABLET 4 MG PO (11:50)
[2021-09-09] MEDS: ESCITALOPRAM OXALATE 10 MG TABLET 20 MG PO (11:50)
[2021-09-09] MEDS: FUROSEMIDE 40 MG TABLET PO (11:50)
[2021-09-09] MEDS: DOCUSATE SODIUM 100 MG CAPSULE PO ×2 (11:51→17:37)
[2021-09-09] MEDS: SPIRONOLACTONE 25 MG TABLET PO (11:51)
[2021-09-09] MEDS: guaiFENesin 12 HR 600 MG TABCR 1200 MG PO ×2 (11:52→20:39)
[2021-09-09] MEDS: MONTELUKAST SODIUM 10 MG TABLET PO (11:52)
[2021-09-09] MEDS: LORATADINE 10 MG TABLET PO (11:52)
[2021-09-09] MEDS: ALBUTEROL SULFATE (*SP) INHALER 2 PUFF INHALATION ×4 (11:53→20:39)
[2021-09-09] MEDS: APIXABAN 2.5 MG TABLET PO ×3 (11:53→17:37)
[2021-09-09] MEDS: REMDESIVIR 100 MG/NS 250 ML 100 MG/250 ML BAG 250 MG IVPB (12:12)
--- NOTE | 2021-09-09 14:31 | WPDPN ---
Progress Note: A&P Assessment and Plan (1) 2019 novel coronavirus-infected pneumonia (NCIP): Code(s): U07.1 - COVID-19; J12.82 - Pneumonia due to coronavirus disease 2019 Status: Acute Assessment and Plan: Positive for COVID 09/07/21 Continue supplementary oxygen pco2 102.5>98.2>163.5>166.4>155.6>123.4 po2 62.4>88.2>114.8>42.3>45.4>103.1 lactic acid WNL crp 15.2 continue with azithromycin, Rocephin, olumiant, Solu-Medrol, inhaler and remdesivir Chest x-ray indicates pneumonia trop wnl Blood culture NGTD (2) GERD (gastroesophageal reflux disease): Code(s): K21.9 - Gastro-esophageal reflux disease without esophagitis Status: Acute Assessment and Plan: Continued pantoprazole (3) Congestive heart failure: Code(s): I50.9 - Heart failure, unspecified Status: Acute Assessment and Plan: Compensated BNP 627>808 Continue Lasix 40 mg daily (4) COPD (chronic obstructive pulmonary disease): Code(s): J44.9 - Chronic obstructive pulmonary disease, unspecified Status: Acute Assessment and Plan: Worsening due to COVID-pneumonia Positive for COVID 09/07/21 Continue supplementary oxygen pco2 102.5>98.2>163.5>166.4>155.6>123 po2 62.4>88.2>114.8>42.3>45.4>103.1 lactic acid WNL crp 15.2 continue with azithromycin, Rocephin, olumiant, Solu-Medrol, inhaler and remdesivir Chest x-ray indicates pneumonia Subjective Date/time seen: 09/09/21 14:31 patient mental status has improved since admission still continues to have confusion. She still is requiring HFNC. The patient denies CP, palpitation, extremity numbness, lightheadedness, dizziness, constipation, diarrhea, chills, or fever. Review of Systems Review of Systems: A 14 organ system Review of Systems was performed and pertinent positives included in the HPI, otherwise remaining ROS is negative. Exam Narrative: GENERAL: Confused HEAD: normocephalic, atraumatic. EYES: PERRL. Sclera clear/white. Vision is grossly intact. EARS: External ears normal, auditory canals clear and without drainage, TMs normal without perforation. Hearing grossly intact. NOSE: External nose normal with no obvious nasal discharge, nares without redness, no rhinorrhea. THROAT: Mucous membranes moist, posterior pharynx clear. NECK: Neck supple, non-tender without lymphadenopathy, masses or thyromegaly. CARDIOVASCULAR: Coarse throughout RESPIRATORY: Clear to auscultation. Breath sounds equal bilaterally. No wheezes, rales, or rhonchi. GASTROINTESTINAL: Abdomen soft, non-tender, nondistended. Bowel sounds are active. No hepato-splenomegaly, or palpable masses. No guarding. SKIN: warm, intact with no suspicious lesions or rash, good texture and turgor. NEURO: awake, alert to self only EXTREMITIES: Normal range of motion. No edema. No calf tenderness. Negative Homans sign bilaterally. BACK: Nontender without deformity or crepitance. No flank tenderness. Objective Data Vital Signs Vital Signs: Vital Signs - 24 hr 09/08/21 16:00 09/08/21 20:00 09/09/21 00:00 Temperature 98 F 98.2 F 98.8 F Pulse Rate 88 95 85 Respiratory Rate 21 H 16 17 Blood Pressure 111/56 L 100/57 L 107/48 L Pulse Oximetry 99 98 98 09/09/21 03:53 09/09/21 04:00 09/09/21 08:00 Temperature 98.5 F 97.7 F Pulse Rate 81 83 80 Respiratory Rate 23 H 20 Blood Pressure 128/58 L 125/53 L Pulse Oximetry 98 100 Intake/Output Intake/Output: Intake & Output 09/06/21 09/07/21 09/08/21 09/09/21 23:59 23:59 23:59 23:59 Intake Total 550 5862 1659 Output Total 425 1900 825 Balance 125 3928 834 Meds/Results Medications: Active Medications Generic Name Dose Route Start Last Admin Trade Name Freq PRN Reason Stop Dose Admin Acetaminophen 1,000 mg 09/07/21 12:39 Acetaminophen 500 Mg Tablet PO Q6H PRN Mild Pain (1-3) or Fever Albuterol 2 puff 09/08/21 17:00 09/09/21 11:53 Albuterol Sulfate (*Sp) Inhaler INHA
[2021-09-09] MEDS: AMITRIPTYLINE HCL 10 MG TABLET PO (20:38)
[2021-09-09] MEDS: traZODone HCL 50 MG TABLET PO (20:39)
[2021-09-09] MEDS: rOPINIRole HCL 1 MG TABLET 4 MG PO (20:39)
--- NOTE | 2021-09-09 21:19 | PC.NURSE ---
Patient SP02 dropping to 40.
--- NOTE | 2021-09-09 21:20 | PC.NURSE ---
Notified doctor of low SPO2. Patient continues to remove high flow nasal canula. Experiencing coughing episode. Diaphortic. Repositioned in bed. Hi flow nasal cannula in place. Patient has very thick secretions also. encouraged to cough. SPO2 improved
[2021-09-10] VITALS (8 sets, daily range): BP systolic 126–148; BP diastolic 54–87; PULSE 77–94; RESP 16–24; TEMP 36.1–37.2; O2SAT 94–100
[2021-09-10] MEDS: methylPREDNISolone SOD SUCC 40 MG VIAL IV PUSH ×3 (05:18→22:00)
[2021-09-10 06:03] LABS: Hematocrit 41.8 % (35.0-49.0); Hemoglobin 10.9 g/dL (12.0-15.0); Mean Corpuscular HGB Conc 26.1 g/dL (32.0-36.0); Mean Corpuscular Hemoglobin 21.7 pg (27.0-31.0); Mean Corpuscular Volume 83.3 fL (78.0-102.0); Mean Platelet Volume 9.1 fl (9.2-11.8); Platelet Count Result 174 K/mm3 (150-420); Red Blood Count 5.02 M/mm3 (4.20-5.40)
[2021-09-10 06:18] LABS: INR 1.2; Prothrombin Time 12.6 Seconds (9.50-12.10)
[2021-09-10 06:30] LABS: Alanine Aminotransferase 12 U/L (14-59); Albumin Level 2.4 g/dL (3.4-5.0); Alkaline Phosphatase 75 U/L (46-116); Aspartate Amino Transferase 12 U/L (15-37); Bilirubin,Total 0.4 mg/dL (0.00-1.00); Blood Urea Nitrogen 17 mg/dL (7-18); Calcium 9.5 mg/dL (8.5-10.1); Chloride 96 mmol/L (98-108); Estimated CRCL calculation 106 ml/min; Estimated Glomerular Filt Rate > 60; Glucose 117 mg/dL (70-99); NT Pro B Type Natriuretic Pept 1316 pg/mL (0-125); Osmolality Calculated 296 mOsm/kg (285-295); Potassium 3.9 mmol/L (3.5-5.1); Sodium 142 mmol/L (136-145); Total Protein 6.6 g/dL (6.4-8.2)
[2021-09-10 06:39] LABS: Carbon Dioxide > 45 mmol/L (21-32)
[2021-09-10 06:54] LABS: Band Neutrophils Percent 0 % (0-6); Lymphocytes Absolute Manual 0.72 K/mm3 (1.1-4.5); Lymphocytes Percent Manual 12 % (18-44); Neutrophils Absolute Manual 4.68 K/mm3 (1.7-7.2); Neutrophils Percent Manual 78 % (46-73); Total Cells Counted 100
[2021-09-10 06:55] LABS: Monocytes Absolute Manual 0.42 K/mm3 (0.1-0.90); Monocytes Percent Manual 7 % (3-9); Myelocytes Percent 3 %; Platelet Estimate Adequate (Adequate)
--- NOTE | 2021-09-10 07:20 | PC.NURSE ---
patient has been placed on Bi-pap machine, but she is desatting into the 70's. An attempt was made to notify respiratory therapy, but no one was in the building. The charge nurse and other staff nurses looked at the Bi-pap, and could not figure out what was wrong, so patient was placed back on the High flow at 60L and 70%. Patient stayed in the mid 90's after that.
[2021-09-10] MEDS: DOCUSATE SODIUM 100 MG CAPSULE PO ×2 (09:00→17:17)
[2021-09-10] MEDS: ALBUTEROL SULFATE (*SP) INHALER 2 PUFF INHALATION ×4 (09:15→20:47)
[2021-09-10] MEDS: MONTELUKAST SODIUM 10 MG TABLET PO (09:16)
[2021-09-10] MEDS: LORATADINE 10 MG TABLET PO (09:16)
[2021-09-10] MEDS: ESCITALOPRAM OXALATE 10 MG TABLET 20 MG PO (09:17)
[2021-09-10] MEDS: APIXABAN 2.5 MG TABLET PO ×2 (09:17→17:18)
[2021-09-10] MEDS: PANTOPRAZOLE 40 MG TABLET PO ×2 (09:17→20:48)
[2021-09-10] MEDS: guaiFENesin 12 HR 600 MG TABCR 1200 MG PO ×2 (09:17→20:48)
[2021-09-10] MEDS: BENZONATATE 100 MG CAPSULE 200 MG PO ×3 (09:18→17:17)
[2021-09-10] MEDS: NICOTINE (*PBKC) 21 MG PATCH 1 PATCH TRANSDERM (09:18)
[2021-09-10] MEDS: FLUTICASONE PROPIONATE 0.05% NA SPR 16 GM BTL (*BKC) 1 SPRAY NASAL ×2 (09:18→20:47)
[2021-09-10] MEDS: SPIRONOLACTONE 25 MG TABLET PO (09:18)
[2021-09-10] MEDS: FUROSEMIDE 40 MG TABLET PO (09:19)
[2021-09-10 09:22] LABS: Base Excess ABG 23.9 mmol/L (0-2); HCO3 ABG 54.1 mmol/L (23-29); Oxygen Content ABG 16.9 %vol (16.0-22.0); Oxygen Saturation ABG 96.4 % (95-97); Oxyhemoglobin 95.7 % (94-100); PO2 ABG 88.8 mmHg (80-90); Total Hemoglobin 12.5 g/dL (12.0-18.0); pH ABG 7.39 (7.35-7.45)
[2021-09-10 09:24] LABS: Fractional Inspired Oxygen 71 %; PCO2 ABG 92.1 mmHg (35-45); Site Drawn RIGHT RADIAL
[2021-09-10 09:25] LABS: Device HIGH FLOW NASAL CANN; Modified Allen's Test Pass
[2021-09-10] MEDS: REMDESIVIR 100 MG/NS 250 ML 100 MG/250 ML BAG 250 MG IVPB (10:59)
[2021-09-10] MEDS: BARICITINIB 2 MG TABLET 4 MG PO (12:19)
[2021-09-10] MEDS: SACCHAROMYCES BOULARDII 250 MG CAPSULE PO ×3 (13:47→17:19)
--- NOTE | 2021-09-10 14:34 | PC.NURSE ---
patient has been on high kalpesh most of day. pco2 and po2 remain high. rt is working on bi pap with her @ 1320 today. setting are 08/08. spo2 86-94%. back to bed after lunch.
[2021-09-10 15:40] LABS: Base Excess ABG 24.8 mmol/L (0-2); HCO3 ABG 50.9 mmol/L (23-29); Oxygen Content ABG 16.5 %vol (16.0-22.0); Oxygen Saturation ABG 96.5 % (95-97); Oxyhemoglobin 95.7 % (94-100); PCO2 ABG 59.5 mmHg (35-45); PO2 ABG 75.3 mmHg (80-90); Total Hemoglobin 12.2 g/dL (12.0-18.0); pH ABG 7.55 (7.35-7.45)
[2021-09-10 15:42] LABS: Device BIPAP; Modified Allen's Test Pass; Site Drawn LEFT RADIAL
[2021-09-10 15:43] LABS: Expiratory Pressure 6 cmH2O; Inspiratory Pressure 12 cmH2O
--- NOTE | 2021-09-10 17:01 | P.PNIM_ITS ---
Progress Note: A&P Assessment and Plan (1) 2019 novel coronavirus-infected pneumonia (NCIP): Code(s): U07.1 - COVID-19; J12.82 - Pneumonia due to coronavirus disease 2019 <BILL Calderon - Last Filed: 09/10/21 17:17> Status: Acute <BILL Calderon - Last Filed: 09/10/21 17:17> Assessment and Plan: * Positive for COVID 09/07/21 * Continue supplementary oxygen * pco2 102.5>98.2>163.5>166.4>155.6>123.4 * po2 62.4>88.2>114.8>42.3>45.4>103.1 * lactic acid WNL * crp 15.2 * continue with azithromycin, Rocephin, olumiant, Solu-Medrol, inhaler and remdesivir * Chest x-ray indicates pneumonia * trop wnl * Blood culture NGTD 09/10/2021 ABG showing improvement after BiPAP 07/29 with reading of pH 7.55, p CO2 59.5, pO2 73.5, HCO3 50.9, O2 Sat 96.5%, continue with COVID regimen as noted above <BILL Calderon - Last Filed: 09/10/21 17:17> (2) GERD (gastroesophageal reflux disease): Code(s): K21.9 - Gastro-esophageal reflux disease without esophagitis <BILL Calderon - Last Filed: 09/10/21 17:17> Status: Acute <BILL Calderon - Last Filed: 09/10/21 17:17> Assessment and Plan: * Continued pantoprazole <JOANIE CalderonC - Last Filed: 09/10/21 17:17> (3) Congestive heart failure: Code(s): I50.9 - Heart failure, unspecified <JOANIE CalderonC - Last Filed: 09/10/21 17:17> Status: Acute <BILL Calderon - Last Filed: 09/10/21 17:17> Assessment and Plan: * Compensated * BNP 627>808 * Continue Lasix 40 mg daily 09/10/2021 Lasix increased to BID, <BILL Calderon - Last Filed: 09/10/21 17:17> (4) COPD (chronic obstructive pulmonary disease): Code(s): J44.9 - Chronic obstructive pulmonary disease, unspecified <BILL Calderon - Last Filed: 09/10/21 17:17> Status: Acute <BILL Calderon - Last Filed: 09/10/21 17:17> Assessment and Plan: * Worsening due to COVID-pneumonia * Positive for COVID 09/07/21 * Continue supplementary oxygen * pco2 102.5>98.2>163.5>166.4>155.6>123 * po2 62.4>88.2>114.8>42.3>45.4>103.1 * lactic acid WNL * crp 15.2 * continue with azithromycin, Rocephin, olumiant, Solu-Medrol, inhaler and remdesivir * Chest x-ray indicates pneumonia 09/10/2021 ABG as noted above, continue regimen as noted above, BiPAP added as noted above. <BILL Calderon - Last Filed: 09/10/21 17:17> Subjective Date/time seen: 09/10/21 17:01 Pt is on a [facility] with [facility] and [facility]. Calls made and confirmed today. Still no beds available. Cony states her breathing is not better today. She has coughing episodes but is having a difficult time clearing her throat. She had pain in her chest with coughing only and this is reproducible with pressure applied to her sternum. She denies any fevers or chills. She had some toast this AM. She has no other complaints or concerns this AM. <BILL Calderon - Last Filed: 09/10/21 17:17> Review of Systems Review of Systems: All systems reviewed & are unremarkable except as noted in HPI and below <BILL Calderon - Last Filed: 09/10/21 17:17> Exam Const: General: cooperative, no acute distress, well developed, alert, awake and Physically active <BILL Calderon - Last Filed: 09/10/21 17:17> Nutritional Appearance: obese morbidly obese <BILL Calderon - Last Filed: 09/10/21 17:17> Chest: Other: chest pain reproducible with sternal pressure applied. <BILL Jenkins -
--- NOTE | 2021-09-10 17:01 | PM.IMPN ---
Progress Note: A&P Assessment and Plan (1) 2019 novel coronavirus-infected pneumonia (NCIP): Code(s): U07.1 - COVID-19; J12.82 - Pneumonia due to coronavirus disease 2019 <BILL Calderon - Last Filed: 09/10/21 17:17> Status: Acute <BILL Calderon - Last Filed: 09/10/21 17:17> Assessment and Plan: Positive for COVID 09/07/21 Continue supplementary oxygen pco2 102.5>98.2>163.5>166.4>155.6>123.4 po2 62.4>88.2>114.8>42.3>45.4>103.1 lactic acid WNL crp 15.2 continue with azithromycin, Rocephin, olumiant, Solu-Medrol, inhaler and remdesivir Chest x-ray indicates pneumonia trop wnl Blood culture NGTD 09/10/2021 ABG showing improvement after BiPAP 07/29 with reading of pH 7.55, pCO2 59.5, pO2 73.5, HCO3 50.9, O2 Sat 96.5%, continue with COVID regimen as noted above <BILL Calderon - Last Filed: 09/10/21 17:17> (2) GERD (gastroesophageal reflux disease): Code(s): K21.9 - Gastro-esophageal reflux disease without esophagitis <JOANIE CalderonC - Last Filed: 09/10/21 17:17> Status: Acute <BILL Calderon - Last Filed: 09/10/21 17:17> Assessment and Plan: Continued pantoprazole <JOANIE CalderonC - Last Filed: 09/10/21 17:17> (3) Congestive heart failure: Code(s): I50.9 - Heart failure, unspecified <BILL Calderon - Last Filed: 09/10/21 17:17> Status: Acute <JOANIE CalderonC - Last Filed: 09/10/21 17:17> Assessment and Plan: Compensated BNP 627>808 Continue Lasix 40 mg daily 09/10/2021 Lasix increased to BID, <BILL Calderon - Last Filed: 09/10/21 17:17> (4) COPD (chronic obstructive pulmonary disease): Code(s): J44.9 - Chronic obstructive pulmonary disease, unspecified <BILL Calderon - Last Filed: 09/10/21 17:17> Status: Acute <BILL Calderon - Last Filed: 09/10/21 17:17> Assessment and Plan: Worsening due to COVID-pneumonia Positive for COVID 09/07/21 Continue supplementary oxygen pco2 102.5>98.2>163.5>166.4>155.6>123 po2 62.4>88.2>114.8>42.3>45.4>103.1 lactic acid WNL crp 15.2 continue with azithromycin, Rocephin, olumiant, Solu-Medrol, inhaler and remdesivir Chest x-ray indicates pneumonia 09/10/2021 ABG as noted above, continue regimen as noted above, BiPAP added as noted above. <BILL Calderon - Last Filed: 09/10/21 17:17> Subjective Date/time seen: 09/10/21 17:01 Pt is on a wait list with [facility] and [facility]. Calls made and confirmed today. Still no beds available. Cony states her breathing is not better today. She has coughing episodes but is having a difficult time clearing her throat. She had pain in her chest with coughing only and this is reproducible with pressure applied to her sternum. She denies any fevers or chills. She had some toast this AM. She has no other complaints or concerns this AM. <BILL Calderon - Last Filed: 09/10/21 17:17> Review of Systems Review of Systems: All systems reviewed & are unremarkable except as noted in HPI and below <BILL Calderon - Last Filed: 09/10/21 17:17> Exam Const: General: cooperative, no acute distress, well developed, alert, awake and Physically active <BILL Calderon - Last Filed: 09/10/21 17:17> Nutritional Appearance: obese morbidly obese <BILL Calderon - Last Filed: 09/10/21 17:17> Chest: Other: chest pain reproducible with sternal pressure applied. <BILL Calderon - Last Filed: 09/10/21 17:17> Resp: Effort & Inspection: normal respiratory effort and Actively coughing dry <BILL Calderon - Last Filed: 09/10/21 17:17> Auscultation: rhonchi and diminished lung sounds <BILL Calderon - Last Filed: 09/10/21 17:17> Cardio: Rate: regular rate <BILL Calderon - Last Filed: 09/10/21 17:17> Heart sounds: S1 normal heart sound present and
[2021-09-10] MEDS: FUROSEMIDE INJ 40 MG/4 ML VIAL IV PUSH (17:16)
--- NOTE | 2021-09-10 19:37 | PC.NURSE ---
1829 bi pap off for meals high kalpesh at 60l and 70% applied. ate 50% of supper. son called and update given. she also talked with him. reapplied bi pap with with setting 07/29 and bleed in 12L o2 per mask. hob up. spo2 92%
[2021-09-10] MEDS: AMITRIPTYLINE HCL 10 MG TABLET PO (20:47)
[2021-09-10] MEDS: rOPINIRole HCL 1 MG TABLET 4 MG PO (20:48)
[2021-09-10] MEDS: traZODone HCL 50 MG TABLET PO (20:49)
[2021-09-11] VITALS (10 sets, daily range): BP systolic 115–154; BP diastolic 55–99; PULSE 82–103; RESP 16–22; TEMP 36.2–36.8; O2SAT 92–99
[2021-09-11 05:32] LABS: Hematocrit 47.1 % (35.0-49.0); Hemoglobin 12.7 g/dL (12.0-15.0); Mean Corpuscular Hemoglobin 21.4 pg (27.0-31.0); Mean Corpuscular Volume 79.4 fL (78.0-102.0); Mean Platelet Volume 9.1 fl (9.2-11.8); Platelet Count Result 213 K/mm3 (150-420); Red Blood Count 5.93 M/mm3 (4.20-5.40); Red Cell Distribution Width 17.1 % (11.6-14.4); White Blood Count 6.1 K/mm3 (4.8-10.8)
[2021-09-11 05:40] LABS: INR 1.2
[2021-09-11] MEDS: methylPREDNISolone SOD SUCC 40 MG VIAL IV PUSH ×3 (05:54→21:54)
[2021-09-11 06:00] LABS: Alanine Aminotransferase 14 U/L (14-59); Albumin Level 2.7 g/dL (3.4-5.0); Alkaline Phosphatase 85 U/L (46-116); Aspartate Amino Transferase 12 U/L (15-37); Bilirubin,Total 0.6 mg/dL (0.00-1.00); Blood Urea Nitrogen 18 mg/dL (7-18); Calcium 9.7 mg/dL (8.5-10.1); Chloride 93 mmol/L (98-108); Estimated CRCL calculation 89 ml/min; Estimated Glomerular Filt Rate > 60; Glucose 137 mg/dL (70-99); NT Pro B Type Natriuretic Pept 1282 pg/mL (0-125); Osmolality Calculated 293 mOsm/kg (285-295); Potassium 3.4 mmol/L (3.5-5.1); Sodium 140 mmol/L (136-145); Total Protein 7.3 g/dL (6.4-8.2)
[2021-09-11 06:11] LABS: Carbon Dioxide > 45 mmol/L (21-32)
[2021-09-11 06:16] LABS: Band Neutrophils Percent 1 % (0-6); Basophils Percent Manual 0 % (0-1); Eosinophils Percent Manual 0 % (1-6); Lymphocytes Percent Manual 23 % (18-44); Monocytes Absolute Manual 0.85 K/mm3 (0.1-0.90); Monocytes Percent Manual 14 % (3-9); Neutrophils Absolute Manual 3.84 K/mm3 (1.7-7.2); Neutrophils Percent Manual 62 % (46-73); Platelet Estimate Adequate (Adequate); Total Cells Counted 100
[2021-09-11] MEDS: POTASSIUM CHLORIDE 20 MEQ TABLET PO (08:00)
[2021-09-11] MEDS: FUROSEMIDE INJ 40 MG/4 ML VIAL IV PUSH ×2 (09:34→16:32)
[2021-09-11] MEDS: LORATADINE 10 MG TABLET PO (09:34)
[2021-09-11] MEDS: APIXABAN 2.5 MG TABLET PO ×2 (09:34→17:05)
[2021-09-11] MEDS: PANTOPRAZOLE 40 MG TABLET PO ×2 (09:34→20:25)
[2021-09-11] MEDS: guaiFENesin 12 HR 600 MG TABCR 1200 MG PO ×2 (09:34→20:25)
[2021-09-11] MEDS: ESCITALOPRAM OXALATE 10 MG TABLET 20 MG PO (09:35)
[2021-09-11] MEDS: DOCUSATE SODIUM 100 MG CAPSULE PO ×2 (09:35→19:24)
[2021-09-11] MEDS: SPIRONOLACTONE 25 MG TABLET PO (09:35)
[2021-09-11] MEDS: MONTELUKAST SODIUM 10 MG TABLET PO (09:36)
[2021-09-11] MEDS: BENZONATATE 100 MG CAPSULE 200 MG PO ×3 (09:36→16:33)
[2021-09-11] MEDS: SACCHAROMYCES BOULARDII 250 MG CAPSULE PO ×3 (09:37→16:32)
[2021-09-11] MEDS: FLUTICASONE PROPIONATE 0.05% NA SPR 16 GM BTL (*BKC) 1 SPRAY NASAL ×2 (09:46→20:39)
[2021-09-11] MEDS: ALBUTEROL SULFATE (*SP) INHALER 2 PUFF INHALATION ×4 (09:47→20:40)
[2021-09-11 10:16] LABS: Base Excess ABG 22.8 mmol/L (0-2); HCO3 ABG 49.6 mmol/L (23-29); Oxygen Content ABG 19.3 %vol (16.0-22.0); Oxygen Saturation ABG 98.9 % (95-97); Oxyhemoglobin 97.7 % (94-100); PCO2 ABG 61.1 mmHg (35-45); PO2 ABG 126.4 mmHg (80-90); Total Hemoglobin 13.9 g/dL (12.0-18.0); pH ABG 7.53 (7.35-7.45)
[2021-09-11 10:17] LABS: Site Drawn RIGHT RADIAL
[2021-09-11 10:18] LABS: Device HIGH FLOW THERAPY; Modified Allen's Test Pass
[2021-09-11 10:19] LABS: Fractional Inspired Oxygen 70 %
[2021-09-11] MEDS: BARICITINIB 2 MG TABLET 4 MG PO ×2 (11:00→14:12)
[2021-09-11] MEDS: REMDESIVIR 100 MG/NS 250 ML 100 MG/250 ML BAG 250 MG IVPB (11:11)
[2021-09-11] MEDS: POTASSIUM CHLORIDE 20 MEQ TABLET (11:45)
--- NOTE | 2021-09-11 13:28 | PM.IMPN ---
Progress Note: A&P Assessment and Plan (1) 2019 novel coronavirus-infected pneumonia (NCIP): Code(s): U07.1 - COVID-19; J12.82 - Pneumonia due to coronavirus disease 2019 <Randy ThomasBILL Bacon - Last Filed: 09/11/21 13:48> Status: Acute <Randy GuzmanBILL Bacon - Last Filed: 09/11/21 13:48> Assessment and Plan: Positive for COVID 09/07/21 Continue supplementary oxygen pco2 102.5>98.2>163.5>166.4>155.6>123.4 po2 62.4>88.2>114.8>42.3>45.4>103.1 lactic acid WNL crp 15.2 continue with azithromycin, Rocephin, olumiant, Solu-Medrol, inhaler and remdesivir Chest x-ray indicates pneumonia trop wnl Blood culture NGTD 09/10/2021 ABG showing improvement after BiPAP 07/29 with reading of pH 7.55, pCO2 59.5, pO2 73.5, HCO3 50.9, O2 Sat 96.5%, continue with COVID regimen as noted above 09/11/2021 Now on HFNC 60/60 with SpO2 97%, Pt reports better breathing <Randy GuzmanBILL Bacon - Last Filed: 09/11/21 13:48> (2) GERD (gastroesophageal reflux disease): Code(s): K21.9 - Gastro-esophageal reflux disease without esophagitis <BILL Calderon - Last Filed: 09/11/21 13:48> Status: Acute <Randy ThomasBILL Bacon - Last Filed: 09/11/21 13:48> Assessment and Plan: Continued pantoprazole <BILL Calderon - Last Filed: 09/11/21 13:48> (3) Congestive heart failure: Code(s): I50.9 - Heart failure, unspecified <BILL Calderon - Last Filed: 09/11/21 13:48> Status: Acute <BILL Calderon - Last Filed: 09/11/21 13:48> Assessment and Plan: Compensated BNP 627>808 Continue Lasix 40 mg daily 09/10/2021 Lasix increased to BID 09/11/2021 Pt on Aldactone, continue Lasix <BILL Calderon - Last Filed: 09/11/21 13:48> (4) COPD (chronic obstructive pulmonary disease): Code(s): J44.9 - Chronic obstructive pulmonary disease, unspecified <BILL Calderon - Last Filed: 09/11/21 13:48> Status: Acute <BILL Calderon - Last Filed: 09/11/21 13:48> Assessment and Plan: Worsening due to COVID-pneumonia Positive for COVID 09/07/21 Continue supplementary oxygen pco2 102.5>98.2>163.5>166.4>155.6>123 po2 62.4>88.2>114.8>42.3>45.4>103.1 lactic acid WNL crp 15.2 continue with azithromycin, Rocephin, olumiant, Solu-Medrol, inhaler and remdesivir Chest x-ray indicates pneumonia 09/10/2021 ABG as noted above, continue regimen as noted above, BiPAP added as noted above. 09/11/2021 ABG showing slight increase in pCO2 at 61.1 and increased pO2 at 126.4, Pt now on HFNC as noted above. <BILL Calderon - Last Filed: 09/11/21 13:48> Subjective Date/time seen: 09/11/21 13:28 Pt is quite [place]. Pt states her breathing is doing well. She does complain that it is difficult to eat her breakfast of wiley and toast. When asked what the matter was she replied she did not have her dentures. Her diet was changed to mechanical soft. Pt has no other complaints or concerns at this time. She denies CP but has a cough once in a while especially with deep breathing. Pt currently on HFNC 60/60 with 97% SpO2. <BILL Calderon - Last Filed: 09/11/21 13:48> Review of Systems Review of Systems: All systems reviewed & are unremarkable except as noted in HPI and below <BILL Calderon Last Filed: 09/11/21 13:48> Exam Const: General: cooperative, comfortable, no acute distress, well developed, alert, awake and Physically active <BILL Calderon Last Filed: 09/11/21 13:48> Nutritional Appearance: obese morbidly obese <BILL Calderon - Last Filed: 09/11/21 13:48> Limitations: other limitations (Hard of Hearing) <BILL Calderon Last Filed: 09/11/21 13:48> HENMT: Ears: hearing grossly impaired <BILL Calderon Last Filed: 09/11/21 13:48> Resp: Effort & Inspection: normal respiratory effort <BILL Calderon Xavi Rasta
[2021-09-11] MEDS: traZODone HCL 50 MG TABLET PO (20:25)
[2021-09-11] MEDS: rOPINIRole HCL 1 MG TABLET 4 MG PO (20:25)
[2021-09-11] MEDS: AMITRIPTYLINE HCL 10 MG TABLET PO (20:39)
[2021-09-12] VITALS (9 sets, daily range): BP systolic 104–150; BP diastolic 62–92; PULSE 79–102; RESP 16–20; TEMP 35.9–36.5; O2SAT 95–100
--- NOTE | 2021-09-12 05:10 | PC.NURSE ---
[facility] called to get an update on pt; They said no beds were available but they would keep pt on the wait list.
[2021-09-12 05:27] LABS: Basophils Absolute Auto 0.02 K/mm3 (0.00-0.10); Basophils Percent Auto 0.2 % (0.0-1.0); Eosinophils Absolute Auto 0.09 K/mm3 (0.02-0.50); Eosinophils Percent Auto 0.9 % (1.0-6.0); Hematocrit 49.2 % (35.0-49.0); Hemoglobin 13.4 g/dL (12.0-15.0); Immature Granulocyte Absolute 0.19 K/mm3 (0.00-0.00); Immature Granulocyte Percent A 1.9 % (0.0-0.0); Lymphocytes Absolute Auto 2.55 K/mm3 (1.10-4.50); Lymphocytes Percent Auto 25.2 % (18.0-42.0); Mean Corpuscular HGB Conc 27.2 g/dL (32.0-36.0); Mean Corpuscular Hemoglobin 21.4 pg (27.0-31.0); Mean Corpuscular Volume 78.7 fL (78.0-102.0); Mean Platelet Volume 8.9 fl (9.2-11.8); Monocytes Absolute Auto 1.17 K/mm3 (0.10-0.90); Monocytes Percent Auto 11.6 % (2.0-11.0); Neutrophils Absolute Auto 6.1 K/mm3 (1.7-7.2); Neutrophils Percent Auto 60.2 % (50.0-70.0); Platelet Count Result 244 K/mm3 (150-420); Red Blood Count 6.25 M/mm3 (4.20-5.40); Red Cell Distribution Width 18.1 % (11.6-14.4); White Blood Count 10.1 K/mm3 (4.8-10.8)
[2021-09-12 05:52] LABS: Alanine Aminotransferase 18 U/L (14-59); Albumin Level 2.9 g/dL (3.4-5.0); Alkaline Phosphatase 84 U/L (46-116); Aspartate Amino Transferase 11 U/L (15-37); Blood Urea Nitrogen 26 mg/dL (7-18); Chloride 92 mmol/L (98-108); Estimated CRCL calculation 70 ml/min; Estimated Glomerular Filt Rate > 60; Glucose 106 mg/dL (70-99); NT Pro B Type Natriuretic Pept 563 pg/mL (0-125); Osmolality Calculated 294 mOsm/kg (285-295); Potassium 3.1 mmol/L (3.5-5.1); Sodium 140 mmol/L (136-145); Total Protein 7.3 g/dL (6.4-8.2)
[2021-09-12] MEDS: methylPREDNISolone SOD SUCC 40 MG VIAL IV PUSH ×3 (06:02→21:43)
[2021-09-12 06:05] LABS: Carbon Dioxide > 45 mmol/L (21-32)
--- NOTE | 2021-09-12 06:44 | PC.NURSE ---
Old IV site is nearly out and was removed. New IV site started to the left hand with a #22 gauge catheter.
[2021-09-12 08:21] LABS: Magnesium 1.9 mg/dL (1.8-2.4)
[2021-09-12 08:55] LABS: Base Excess ABG 24.1 mmol/L (0-2); HCO3 ABG 50.5 mmol/L (23-29); Oxygen Content ABG 19.2 %vol (16.0-22.0); Oxyhemoglobin 94.8 % (94-100); PO2 ABG 75.1 mmHg (80-90); Total Hemoglobin 14.4 g/dL (12.0-18.0); pH ABG 7.56 (7.35-7.45)
[2021-09-12] MEDS: FLUTICASONE PROPIONATE 0.05% NA SPR 16 GM BTL (*BKC) 1 SPRAY NASAL ×2 (09:00→21:44)
[2021-09-12] MEDS: BENZONATATE 100 MG CAPSULE 200 MG PO ×3 (09:00→17:11)
[2021-09-12] MEDS: ALBUTEROL SULFATE (*SP) INHALER 2 PUFF INHALATION ×4 (09:00→21:43)
[2021-09-12 09:06] LABS: Fractional Inspired Oxygen 60 %
[2021-09-12 09:07] LABS: Device HIGH FLOW THERAPY; Modified Allen's Test Pass; Site Drawn RIGHT RADIAL
[2021-09-12] MEDS: FUROSEMIDE INJ 40 MG/4 ML VIAL IV PUSH ×2 (09:15→17:11)
[2021-09-12] MEDS: ESCITALOPRAM OXALATE 10 MG TABLET 20 MG PO (09:15)
[2021-09-12] MEDS: MONTELUKAST SODIUM 10 MG TABLET PO (09:16)
[2021-09-12] MEDS: LORATADINE 10 MG TABLET PO (09:16)
[2021-09-12] MEDS: POTASSIUM CHLORIDE 20 MEQ TABLET 40 MEQ PO (09:16)
[2021-09-12] MEDS: PANTOPRAZOLE 40 MG TABLET PO ×2 (09:16→21:42)
[2021-09-12] MEDS: APIXABAN 2.5 MG TABLET PO (09:16)
[2021-09-12] MEDS: DOCUSATE SODIUM 100 MG CAPSULE PO ×2 (09:18→17:00)
[2021-09-12] MEDS: NICOTINE (*PBKC) 21 MG PATCH 1 PATCH TRANSDERM (09:18)
[2021-09-12] MEDS: SPIRONOLACTONE 25 MG TABLET PO (09:18)
[2021-09-12] MEDS: SACCHAROMYCES BOULARDII 250 MG CAPSULE PO ×3 (09:18→17:11)
--- NOTE | 2021-09-12 11:33 | PM.IMPN ---
Progress Note: A&P Assessment and Plan (1) 2019 novel coronavirus-infected pneumonia (NCIP): Code(s): U07.1 - COVID-19; J12.82 - Pneumonia due to coronavirus disease 2018 Status: Acute Assessment and Plan: Positive for COVID 09/07/21 Continue supplementary oxygen pco2 102.5>98.2>163.5>166.4>155.6>123.4 po2 62.4>88.2>114.8>42.3>45.4>103.1 lactic acid WNL crp 15.2 continue with azithromycin, Rocephin, olumiant, Solu-Medrol, inhaler and remdesivir Chest x-ray indicates pneumonia trop wnl Blood culture NGTD 09/10/2021 ABG showing improvement after BiPAP 07/29 with reading of pH 7.55, pCO2 59.5, pO2 73.5, HCO3 50.9, O2 Sat 96.5%, continue with COVID regimen as noted above 09/11/2021 Now on HFNC 60/60 with SpO2 97%, Pt reports better breathing 09/12/2021 HFNC cotinue on current settings as ABG not improved though Pt looks good and sounds better in the lungs. She is likely close to her respiratory baseline. (2) GERD (gastroesophageal reflux disease): Code(s): K21.9 - Gastro-esophageal reflux disease without esophagitis Status: Acute Assessment and Plan: Continued pantoprazole (3) Congestive heart failure: Code(s): I50.9 - Heart failure, unspecified Status: Acute Assessment and Plan: Compensated BNP 627>808 Continue Lasix 40 mg daily 09/10/2021 Lasix increased to BID 09/11/2021 Pt on Aldactone, continue Lasix 09/12/2021 BNP 563 has been trending down, lung sounds clear (4) COPD (chronic obstructive pulmonary disease): Code(s): J44.9 - Chronic obstructive pulmonary disease, unspecified Status: Acute Assessment and Plan: Worsening due to COVID-pneumonia Positive for COVID 09/07/21 Continue supplementary oxygen pco2 102.5>98.2>163.5>166.4>155.6>123 po2 62.4>88.2>114.8>42.3>45.4>103.1 lactic acid WNL crp 15.2 continue with azithromycin, Rocephin, olumiant, Solu-Medrol, inhaler and remdesivir Chest x-ray indicates pneumonia 09/10/2021 ABG as noted above, continue regimen as noted above, BiPAP added as noted above. 09/11/2021 ABG showing slight increase in pCO2 at 61.1 and increased pO2 at 126.4, Pt now on HFNC as noted above. 09/12/2021 Stable Subjective Date/time seen: 09/12/21 11:33 Cony was sitting up having breakfast this AM stating her breathing feel good and is doing better. She is quite [place]. She denies fevers, chills, CP, abdominal pain, muscle/body aches. Her ABG did not show much improvement and her pO2 was decreased today. No changes made to her HFNC. Will obtain ABG in AM. Review of Systems Review of Systems: All systems reviewed & are unremarkable except as noted in HPI and below Exam Const: General: cooperative, comfortable, no acute distress, well developed, alert, awake and Physically active Nutritional Appearance: obese morbidly obese Resp: Effort & Inspection: normal respiratory effort and Actively coughing (minimal with deep breathing) Auscultation: clear to auscultation bilaterally Cardio: Rate: regular rate Heart sounds: S1 normal heart sound present and S2 normal heart sound present Skin: General skin exam: normal color and dry skin Neuro: General: oriented to person, oriented to place, oriented to time, moves all extremities and no focal motor deficits Cranial nerves: Yes CN's II-XII intact bilaterally (grossly intact) Cognition (Neuro): normal cognition Speech: normal speech Motor exam (neuro): 5/5 motor strength present throughout Extrem: General: no pedal edema and no calf tenderness Psych: Appearance: grossly normal Mental Status: mental status grossly normal Speech and movement: Normal speech and movement present Affect: normal affect Attitude: cooperative Thought process: Normal thought process present Objective Data Vital Signs Vital Signs: Vital Signs - 24 hr 09/11/21 11:54 09/11/21 12:00 09/11/21 16:00 Temperature 98.2 F 97.5 F L Pulse Rate 82 85 88 Respiratory Rate 16 20 20 Blood Pre
[2021-09-12] MEDS: guaiFENesin 12 HR 600 MG TABCR 1200 MG PO (21:41)
[2021-09-12] MEDS: traZODone HCL 50 MG TABLET PO (21:42)
[2021-09-12] MEDS: rOPINIRole HCL 1 MG TABLET 4 MG PO (21:42)
[2021-09-12] MEDS: AMITRIPTYLINE HCL 10 MG TABLET PO (21:43)
[2021-09-13] VITALS (10 sets, daily range): BP systolic 108–130; BP diastolic 55–78; PULSE 22–106; RESP 16–96; TEMP 35.7–36.4; O2SAT 94–98
[2021-09-13] MEDS: methylPREDNISolone SOD SUCC 40 MG VIAL IV PUSH ×2 (05:19→20:06)
[2021-09-13 05:27] LABS: HCO3 ABG 44.7 mmol/L (23-29); Oxygen Content ABG 18.7 %vol (16.0-22.0); Oxyhemoglobin 94.8 % (94-100); PCO2 ABG 54.1 mmHg (35-45); PO2 ABG 77.2 mmHg (80-90); pH ABG 7.54 (7.35-7.45)
[2021-09-13 05:33] LABS: Modified Allen's Test Pass; Site Drawn LEFT RADIAL
[2021-09-13 05:34] LABS: Basophils Absolute Auto 0.01 K/mm3 (0.00-0.10); Basophils Percent Auto 0.1 % (0.0-1.0); Eosinophils Absolute Auto 0.01 K/mm3 (0.02-0.50); Eosinophils Percent Auto 0.1 % (1.0-6.0); Hematocrit 47.8 % (35.0-49.0); Hemoglobin 13.2 g/dL (12.0-15.0); Immature Granulocyte Absolute 0.12 K/mm3 (0.00-0.00); Immature Granulocyte Percent A 1.5 % (0.0-0.0); Lymphocytes Absolute Auto 1.04 K/mm3 (1.10-4.50); Lymphocytes Percent Auto 13.4 % (18.0-42.0); Mean Corpuscular HGB Conc 27.6 g/dL (32.0-36.0); Mean Corpuscular Hemoglobin 21.3 pg (27.0-31.0); Mean Corpuscular Volume 77.1 fL (78.0-102.0); Mean Platelet Volume 8.9 fl (9.2-11.8); Monocytes Absolute Auto 0.43 K/mm3 (0.10-0.90); Monocytes Percent Auto 5.5 % (2.0-11.0); Neutrophils Absolute Auto 6.1 K/mm3 (1.7-7.2); Neutrophils Percent Auto 79.4 % (50.0-70.0); Platelet Count Result 267 K/mm3 (150-420); Red Cell Distribution Width 18.6 % (11.6-14.4); White Blood Count 7.8 K/mm3 (4.8-10.8)
[2021-09-13 06:05] LABS: Alanine Aminotransferase 15 U/L (14-59); Albumin Level 2.9 g/dL (3.4-5.0); Alkaline Phosphatase 83 U/L (46-116); Anion Gap 1 mmol/L (8-16); Aspartate Amino Transferase 10 U/L (15-37); Bilirubin,Total 1.1 mg/dL (0.00-1.00); Blood Urea Nitrogen 26 mg/dL (7-18); Calcium 9.3 mg/dL (8.5-10.1); Carbon Dioxide 43 mmol/L (21-32); Chloride 91 mmol/L (98-108); Estimated CRCL calculation 69 ml/min; Estimated Glomerular Filt Rate > 60; Glucose 156 mg/dL (70-99); NT Pro B Type Natriuretic Pept 184 pg/mL (0-125); Osmolality Calculated 287 mOsm/kg (285-295); Potassium 3.5 mmol/L (3.5-5.1); Sodium 135 mmol/L (136-145); Total Protein 7.4 g/dL (6.4-8.2)
[2021-09-13] MEDS: ESCITALOPRAM OXALATE 10 MG TABLET 20 MG PO (09:10)
[2021-09-13] MEDS: FLUTICASONE PROPIONATE 0.05% NA SPR 16 GM BTL (*BKC) 1 SPRAY NASAL ×2 (09:20→20:08)
[2021-09-13] MEDS: ALBUTEROL SULFATE (*SP) INHALER 2 PUFF INHALATION ×4 (09:49→20:08)
[2021-09-13] MEDS: FUROSEMIDE INJ 40 MG/4 ML VIAL IV PUSH ×2 (09:49→17:54)
[2021-09-13 09:50] LABS: Device HIGH FLOW THERAPY; Fractional Inspired Oxygen 60 %
[2021-09-13] MEDS: SPIRONOLACTONE 25 MG TABLET PO (09:50)
[2021-09-13] MEDS: guaiFENesin 12 HR 600 MG TABCR 1200 MG PO ×2 (09:50→20:07)
[2021-09-13] MEDS: LORATADINE 10 MG TABLET PO (09:51)
[2021-09-13] MEDS: APIXABAN 2.5 MG TABLET PO ×2 (09:51→17:54)
[2021-09-13] MEDS: MONTELUKAST SODIUM 10 MG TABLET PO (09:51)
[2021-09-13] MEDS: BENZONATATE 100 MG CAPSULE 200 MG PO ×3 (09:51→17:54)
[2021-09-13] MEDS: SACCHAROMYCES BOULARDII 250 MG CAPSULE PO ×3 (09:51→17:54)
[2021-09-13] MEDS: DOCUSATE SODIUM 100 MG CAPSULE PO ×2 (09:51→17:54)
[2021-09-13] MEDS: PANTOPRAZOLE 40 MG TABLET PO ×2 (09:51→20:06)
[2021-09-13] MEDS: BARICITINIB 2 MG TABLET 4 MG PO (10:35)
--- NOTE | 2021-09-13 16:02 | PM.IMPN ---
Progress Note: A&P Assessment and Plan (1) 2019 novel coronavirus-infected pneumonia (NCIP): Code(s): U07.1 - COVID-19; J12.82 - Pneumonia due to coronavirus disease 2018 Status: Acute Assessment and Plan: Positive for COVID 09/07/21 Continue supplementary oxygen pco2 102.5>98.2>163.5>166.4>155.6>123.4 po2 62.4>88.2>114.8>42.3>45.4>103.1 lactic acid WNL crp 15.2 continue with azithromycin, Rocephin, olumiant, Solu-Medrol, inhaler and remdesivir Chest x-ray indicates pneumonia trop wnl Blood culture NGTD 09/10/2021 ABG showing improvement after BiPAP 07/29 with reading of pH 7.55, pCO2 59.5, pO2 73.5, HCO3 50.9, O2 Sat 96.5%, continue with COVID regimen as noted above 09/11/2021 Now on HFNC 60/60 with SpO2 97%, Pt reports better breathing 09/12/2021 HFNC continue on current settings as ABG not improved though Pt looks good and sounds better in the lungs. She is likely close to her respiratory baseline. 09/13/2021 HFNC with new settings of 50L/50% FiO2 w/ SpO2 of ~97%, lungs clear but a little diminished, talking in complete sentences, no chest pain, hope to transition to [place] tomorrow after AM ABG (2) GERD (gastroesophageal reflux disease): Code(s): K21.9 - Gastro-esophageal reflux disease without esophagitis Status: Acute Assessment and Plan: Continued pantoprazole (3) Congestive heart failure: Code(s): I50.9 - Heart failure, unspecified Status: Acute Assessment and Plan: Compensated BNP 627>808 Continue Lasix 40 mg daily 09/10/2021 Lasix increased to BID 09/11/2021 Pt on Aldactone, continue Lasix 09/12/2021 BNP 563 has been trending down, lung sounds clear 09/13/2021 BNP 184, will not recheck, clear lungs just a little diminished, no rales, cough with deep inspiration (4) COPD (chronic obstructive pulmonary disease): Code(s): J44.9 - Chronic obstructive pulmonary disease, unspecified Status: Acute Assessment and Plan: Worsening due to COVID-pneumonia Positive for COVID 09/07/21 Continue supplementary oxygen pco2 102.5>98.2>163.5>166.4>155.6>123 po2 62.4>88.2>114.8>42.3>45.4>103.1 lactic acid WNL crp 15.2 continue with azithromycin, Rocephin, olumiant, Solu-Medrol, inhaler and remdesivir Chest x-ray indicates pneumonia 09/10/2021 ABG as noted above, continue regimen as noted above, BiPAP added as noted above. 09/11/2021 ABG showing slight increase in pCO2 at 61.1 and increased pO2 at 126.4, Pt now on HFNC as noted above. 09/12/2021 Stable Subjective Date/time seen: 09/13/21 16:02 Cony states she is feeling better today and breathing better. She was on the phone when I entered the room and was able to talk in complete sentences without difficulty. She did not appear to be in any respiratory distress. Pt has no complaints of CP, SOB, abdominal issues, musculoskeletal problems, fevers, chills. Hoping to wean her off of her HFNC tomorrow after ABG results. Review of Systems Review of Systems: All systems reviewed & are unremarkable except as noted in HPI and below Exam Const: General: cooperative, comfortable, no acute distress, well developed, alert, awake and Physically active Nutritional Appearance: obese HENMT: Ears: hearing grossly impaired Resp: Effort & Inspection: normal respiratory effort and Actively coughing (with deep breathing) Auscultation: clear to auscultation bilaterally Cardio: Rate: regular rate Heart sounds: S1 normal heart sound present and S2 normal heart sound present GI: GI Palp: Yes Soft to palpation, No Tenderness to palpation present (GI) and No Guarding due to palpation present (GI) Auscultation: normal bowel sounds Skin: General skin exam: normal color and dry skin Neuro: General: oriented to person, oriented to place, oriented to time, moves all extremities and no focal motor deficits Cranial nerves: Yes CN's II-XII intact bilaterally (grossly intact) Cognition (Neuro): normal cognition Speech: normal
[2021-09-13] MEDS: traZODone HCL 50 MG TABLET PO (20:07)
[2021-09-13] MEDS: rOPINIRole HCL 1 MG TABLET 4 MG PO (20:07)
[2021-09-13] MEDS: AMITRIPTYLINE HCL 10 MG TABLET PO (20:08)
[2021-09-14] VITALS (9 sets, daily range): BP systolic 115–132; BP diastolic 57–76; PULSE 88–102; RESP 18–20; TEMP 35.9–36.5; O2SAT 92–96
[2021-09-14 06:09] LABS: Base Excess ABG 15.4 mmol/L (0-2); HCO3 ABG 40.1 mmol/L (23-29); Oxygen Content ABG 17.9 %vol (16.0-22.0); Oxyhemoglobin 98.3 % (94-100); PCO2 ABG 48.9 mmHg (35-45); PO2 ABG 167.9 mmHg (80-90); Total Hemoglobin 12.7 g/dL (12.0-18.0); pH ABG 7.53 (7.35-7.45)
[2021-09-14 06:13] LABS: Device HIGH FLOW NASAL CANN; Modified Allen's Test Pass; Site Drawn RIGHT RADIAL
[2021-09-14 06:24] LABS: Basophils Absolute Auto 0.01 K/mm3 (0.00-0.10); Basophils Percent Auto 0.1 % (0.0-1.0); Eosinophils Absolute Auto 0.02 K/mm3 (0.02-0.50); Eosinophils Percent Auto 0.2 % (1.0-6.0); Hematocrit 47.5 % (35.0-49.0); Hemoglobin 13.2 g/dL (12.0-15.0); Immature Granulocyte Absolute 0.12 K/mm3 (0.00-0.00); Immature Granulocyte Percent A 1.2 % (0.0-0.0); Lymphocytes Absolute Auto 1.18 K/mm3 (1.10-4.50); Lymphocytes Percent Auto 11.4 % (18.0-42.0); Mean Corpuscular HGB Conc 27.8 g/dL (32.0-36.0); Mean Corpuscular Hemoglobin 21.5 pg (27.0-31.0); Mean Corpuscular Volume 77.4 fL (78.0-102.0); Mean Platelet Volume 9.5 fl (9.2-11.8); Monocytes Absolute Auto 0.62 K/mm3 (0.10-0.90); Neutrophils Absolute Auto 8.4 K/mm3 (1.7-7.2); Neutrophils Percent Auto 81.1 % (50.0-70.0); Platelet Count Result 338 K/mm3 (150-420); Red Blood Count 6.14 M/mm3 (4.20-5.40); Red Cell Distribution Width 18.3 % (11.6-14.4); White Blood Count 10.4 K/mm3 (4.8-10.8)
[2021-09-14 06:47] LABS: Alanine Aminotransferase 16 U/L (14-59); Albumin Level 2.9 g/dL (3.4-5.0); Alkaline Phosphatase 78 U/L (46-116); Anion Gap 1 mmol/L (8-16); Aspartate Amino Transferase 13 U/L (15-37); Bilirubin,Total 1.3 mg/dL (0.00-1.00); Blood Urea Nitrogen 26 mg/dL (7-18); Calcium 9.5 mg/dL (8.5-10.1); Carbon Dioxide 41 mmol/L (21-32); Chloride 91 mmol/L (98-108); Estimated CRCL calculation 72 ml/min; Estimated Glomerular Filt Rate > 60; Glucose 139 mg/dL (70-99); NT Pro B Type Natriuretic Pept 125 pg/mL (0-125); Osmolality Calculated 282 mOsm/kg (285-295); Potassium 3.2 mmol/L (3.5-5.1); Sodium 133 mmol/L (136-145); Total Protein 7.2 g/dL (6.4-8.2)
--- NOTE | 2021-09-14 08:27 | P.PNIM_ITS ---
Progress Note: A&P Assessment and Plan (1) 2019 novel coronavirus-infected pneumonia (NCIP): Code(s): U07.1 - COVID-19; J12.82 - Pneumonia due to coronavirus disease 2019 <BILL Calderon - Last Filed: 09/14/21 14:32> Status: Acute <BILL Claderon - Last Filed: 09/14/21 14:32> Assessment and Plan: * Positive for COVID 09/07/21 * Continue supplementary oxygen * pco2 102.5>98.2>163.5>166.4>155.6>123.4 * po2 62.4>88.2>114.8>42.3>45.4>103.1 * lactic acid WNL * crp 15.2 * continue with azithromycin, Rocephin, olumiant, Solu-Medrol, inhaler and remdesivir * Chest x-ray indicates pneumonia * trop wnl * Blood culture NGTD 09/10/2021 ABG showing improvement after BiPAP 07/29 with reading of pH 7.55, p CO2 59.5, pO2 73.5, HCO3 50.9, O2 Sat 96.5%, continue with COVID regimen as noted above 09/11/2021 Now on HFNC 60/60 with SpO2 97%, Pt reports better breathing 09/12/2021 HFNC continue on current settings as ABG not improved though Pt looks good and sounds better in the lungs. She is likely close to her respiratory baseline. 09/13/2021 HFNC with new settings of 50L/50% FiO2 w/ SpO2 of ~97%, lungs clear but a little diminished, talking in complete sentences, no chest pain, hope to transition to NC tomorrow after AM ABG 09/14/2021 NC @ 5L/min w/ SpO2 >95%, continue with Solu-Medrol (mostly for COPD), Guaifenesin, Baricitinib <BILL Calderon - Last Filed: 09/14/21 14:32> (2) GERD (gastroesophageal reflux disease): Code(s): K21.9 - Gastro-esophageal reflux disease without esophagitis <BILL Calderon - Last Filed: 09/14/21 14:32> Status: Acute <Randy Tang MINER ASSISTANTGrazynaC - Last Filed: 09/14/21 14:32> Assessment and Plan: * Continued pantoprazole <Randy TangCOLERohini - Last Filed: 09/14/21 14:32> (3) Congestive heart failure: Code(s): I50.9 - Heart failure, unspecified <Randy TangCOLEGrazynaElvia - Last Filed: 09/14/21 14:32> Status: Acute <Randy Tang MINER ASSISTANT-C - Last Filed: 09/14/21 14:32> Assessment and Plan: * Compensated * BNP 627>808 * Continue Lasix 40 mg daily 09/10/2021 Lasix increased to BID 09/11/2021 Pt on Aldactone, continue Lasix 09/12/2021 BNP 563 has been trending down, lung sounds clear 09/13/2021 BNP 184, will not recheck, clear lungs just a little diminished, no rales, cough with deep inspiration 09/14/2021 ... <Randy Tang MINER ASSISTANTGrazynaElvia - Last Filed: 09/14/21 14:32> (4) COPD (chronic obstructive pulmonary disease): Code(s): J44.9 - Chronic obstructive pulmonary disease, unspecified <Randy Tang MINER ASSISTANTRohini - Last Filed: 09/14/21 14:32> Status: Acute <Randy Tang BILL - Last Filed: 09/14/21 14:32> Assessment and Plan: * Worsening due to COVID-pneumonia * Positive for COVID 09/07/21 * Continue supplementary oxygen * pco2 102.5>98.2>163.5>166.4>155.6>123 * po2 62.4>88.2>114.8>42.3>45.4>103.1 * lactic acid WNL * crp 15.2 * continue with azithromycin, Rocephin, olumiant, Solu-Medrol, inhaler and remdesivir * Chest x-ray indicates pneumonia 09/10/2021 ABG as noted above, continue regimen as noted above, BiPAP added as noted above. 09/11/2021 ABG showing slight increase in pCO2 at 61.1 and increased pO2 at 126.4, Pt now on HFNC as noted above. 09/12/2021 Stable <Randy Tang, COLE-C - Last Filed: 09/14/21 14:32> Subjective Date/time seen: 09/14/21 08:27 Pt sitting in her bed without complaints. She states her breathing is doing well. I informed her of her ABG and her numbers were good along with her status
--- NOTE | 2021-09-14 08:27 | PM.IMPN ---
Progress Note: A&P Assessment and Plan (1) 2019 novel coronavirus-infected pneumonia (NCIP): Code(s): U07.1 - COVID-19; J12.82 - Pneumonia due to coronavirus disease 2019 <BILL Calderon - Last Filed: 09/14/21 14:32> Status: Acute <BILL Calderon - Last Filed: 09/14/21 14:32> Assessment and Plan: Positive for COVID 09/07/21 Continue supplementary oxygen pco2 102.5>98.2>163.5>166.4>155.6>123.4 po2 62.4>88.2>114.8>42.3>45.4>103.1 lactic acid WNL crp 15.2 continue with azithromycin, Rocephin, olumiant, Solu-Medrol, inhaler and remdesivir Chest x-ray indicates pneumonia trop wnl Blood culture NGTD 09/10/2021 ABG showing improvement after BiPAP 07/29 with reading of pH 7.55, pCO2 59.5, pO2 73.5, HCO3 50.9, O2 Sat 96.5%, continue with COVID regimen as noted above 09/11/2021 Now on HFNC 60/60 with SpO2 97%, Pt reports better breathing 09/12/2021 HFNC continue on current settings as ABG not improved though Pt looks good and sounds better in the lungs. She is likely close to her respiratory baseline. 09/13/2021 HFNC with new settings of 50L/50% FiO2 w/ SpO2 of ~97%, lungs clear but a little diminished, talking in complete sentences, no chest pain, hope to transition to NC tomorrow after AM ABG 09/14/2021 NC @ 5L/min w/ SpO2 >95%, continue with Solu-Medrol (mostly for COPD), Guaifenesin, Baricitinib <BILL Calderon - Last Filed: 09/14/21 14:32> (2) GERD (gastroesophageal reflux disease): Code(s): K21.9 - Gastro-esophageal reflux disease without esophagitis <BILL Calderon - Last Filed: 09/14/21 14:32> Status: Acute <Randy Tang CABLE PULLER-C - Last Filed: 09/14/21 14:32> Assessment and Plan: Continued pantoprazole <Randy GuzmanBILL Bacon - Last Filed: 09/14/21 14:32> (3) Congestive heart failure: Code(s): I50.9 - Heart failure, unspecified <Randy GuzmanBILL Bacon - Last Filed: 09/14/21 14:32> Status: Acute <Randy Cardoza BILL Tang - Last Filed: 09/14/21 14:32> Assessment and Plan: Compensated BNP 627>808 Continue Lasix 40 mg daily 09/10/2021 Lasix increased to BID 09/11/2021 Pt on Aldactone, continue Lasix 09/12/2021 BNP 563 has been trending down, lung sounds clear 09/13/2021 BNP 184, will not recheck, clear lungs just a little diminished, no rales, cough with deep inspiration 09/14/2021 ... <Randy GuzmanBILL Bacon - Last Filed: 09/14/21 14:32> (4) COPD (chronic obstructive pulmonary disease): Code(s): J44.9 - Chronic obstructive pulmonary disease, unspecified <Randy GuzmanBILL Bacon - Last Filed: 09/14/21 14:32> Status: Acute <Randy GuzmanBILL Bacon - Last Filed: 09/14/21 14:32> Assessment and Plan: Worsening due to COVID-pneumonia Positive for COVID 09/07/21 Continue supplementary oxygen pco2 102.5>98.2>163.5>166.4>155.6>123 po2 62.4>88.2>114.8>42.3>45.4>103.1 lactic acid WNL crp 15.2 continue with azithromycin, Rocephin, olumiant, Solu-Medrol, inhaler and remdesivir Chest x-ray indicates pneumonia 09/10/2021 ABG as noted above, continue regimen as noted above, BiPAP added as noted above. 09/11/2021 ABG showing slight increase in pCO2 at 61.1 and increased pO2 at 126.4, Pt now on HFNC as noted above. 09/12/2021 Stable <BILL Claderon - Last Filed: 09/14/21 14:32> Subjective Date/time seen: 09/14/21 08:27 Pt sitting in her bed without complaints. She states her breathing is doing well. I informed her of her ABG and her numbers were good along with her status to change to NC at 5 L/min. She is tolerating this well. She felt relief knowing that she was back on a NC which she uses at home. Pt denies CP, SOB, abdominal issues, fevers, chills, [place], body aches. <BILL Calderon - Last Filed: 09/14/21 14:32> Review of Systems Review of Systems: All systems reviewed & are unremarkable except as noted in HPI and below <Randy Cardoza
[2021-09-14] MEDS: guaiFENesin 12 HR 600 MG TABCR 1200 MG PO ×2 (10:28→21:04)
[2021-09-14] MEDS: APIXABAN 2.5 MG TABLET PO ×2 (10:29→16:29)
[2021-09-14] MEDS: BENZONATATE 100 MG CAPSULE 200 MG PO ×3 (10:29→16:29)
[2021-09-14] MEDS: SPIRONOLACTONE 25 MG TABLET PO (10:29)
[2021-09-14] MEDS: ESCITALOPRAM OXALATE 10 MG TABLET 20 MG PO (10:30)
[2021-09-14] MEDS: LORATADINE 10 MG TABLET PO (10:30)
[2021-09-14] MEDS: MONTELUKAST SODIUM 10 MG TABLET PO (10:30)
[2021-09-14] MEDS: PANTOPRAZOLE 40 MG TABLET PO ×2 (10:30→21:06)
[2021-09-14] MEDS: DOCUSATE SODIUM 100 MG CAPSULE PO (10:31)
[2021-09-14] MEDS: FLUTICASONE PROPIONATE 0.05% NA SPR 16 GM BTL (*BKC) 1 SPRAY NASAL ×2 (10:31→21:08)
[2021-09-14] MEDS: FUROSEMIDE INJ 40 MG/4 ML VIAL IV PUSH ×2 (10:32→16:29)
[2021-09-14] MEDS: methylPREDNISolone SOD SUCC 40 MG VIAL IV PUSH ×2 (10:33→21:04)
[2021-09-14] MEDS: ALBUTEROL SULFATE (*SP) INHALER 2 PUFF INHALATION ×4 (10:36→21:04)
[2021-09-14] MEDS: SACCHAROMYCES BOULARDII 250 MG CAPSULE PO ×3 (10:37→16:30)
[2021-09-14] MEDS: NICOTINE (*PBKC) 21 MG PATCH 1 PATCH TRANSDERM (10:37)
[2021-09-14] MEDS: BARICITINIB 2 MG TABLET 4 MG PO (11:47)
[2021-09-14] MEDS: POTASSIUM CHLORIDE 20 MEQ PACKET (FOR LIQUID) PO (14:05)
[2021-09-14] MEDS: rOPINIRole HCL 1 MG TABLET 4 MG PO (21:05)
[2021-09-14] MEDS: traZODone HCL 50 MG TABLET PO (21:07)
[2021-09-14] MEDS: AMITRIPTYLINE HCL 10 MG TABLET PO (21:08)
[2021-09-15] VITALS (7 sets, daily range): BP systolic 118–138; BP diastolic 63–77; PULSE 72–96; RESP 18–20; TEMP 36–36.6; O2SAT 94–100
[2021-09-15 06:05] LABS: Base Excess ABG 14.5 mmol/L (0-2); HCO3 ABG 41.4 mmol/L (23-29); Oxygen Content ABG 19.8 %vol (16.0-22.0); Oxygen Saturation ABG 94.1 % (95-97); Oxyhemoglobin 92.4 % (94-100); PCO2 ABG 59.3 mmHg (35-45); PO2 ABG 74.2 mmHg (80-90); Total Hemoglobin 15.2 g/dL (12.0-18.0); pH ABG 7.46 (7.35-7.45)
[2021-09-15 06:14] LABS: Modified Allen's Test Pass; Site Drawn LEFT RADIAL
[2021-09-15 06:16] LABS: Basophils Absolute Auto 0.01 K/mm3 (0.00-0.10); Basophils Percent Auto 0.1 % (0.0-1.0); Eosinophils Absolute Auto 0.01 K/mm3 (0.02-0.50); Eosinophils Percent Auto 0.1 % (1.0-6.0); Hematocrit 44.8 % (35.0-49.0); Hemoglobin 12.6 g/dL (12.0-15.0); Immature Granulocyte Absolute 0.14 K/mm3 (0.00-0.00); Immature Granulocyte Percent A 1.2 % (0.0-0.0); Lymphocytes Absolute Auto 1.01 K/mm3 (1.10-4.50); Lymphocytes Percent Auto 8.4 % (18.0-42.0); Mean Corpuscular HGB Conc 28.1 g/dL (32.0-36.0); Mean Corpuscular Hemoglobin 21.8 pg (27.0-31.0); Mean Corpuscular Volume 77.4 fL (78.0-102.0); Monocytes Absolute Auto 0.58 K/mm3 (0.10-0.90); Monocytes Percent Auto 4.8 % (2.0-11.0); Neutrophils Absolute Auto 10.3 K/mm3 (1.7-7.2); Neutrophils Percent Auto 85.4 % (50.0-70.0); Platelet Count Result 408 K/mm3 (150-420); Red Blood Count 5.79 M/mm3 (4.20-5.40); Red Cell Distribution Width 18.1 % (11.6-14.4)
[2021-09-15 06:41] LABS: Alanine Aminotransferase 17 U/L (14-59); Alkaline Phosphatase 75 U/L (46-116); Anion Gap 3 mmol/L (8-16); Aspartate Amino Transferase < 10 U/L (15-37); Bilirubin,Total 1.5 mg/dL (0.00-1.00); Blood Urea Nitrogen 22 mg/dL (7-18); Calcium 9.8 mg/dL (8.5-10.1); Carbon Dioxide 41 mmol/L (21-32); Chloride 91 mmol/L (98-108); Estimated CRCL calculation 80 ml/min; Estimated Glomerular Filt Rate > 60; Glucose 162 mg/dL (70-99); NT Pro B Type Natriuretic Pept 133 pg/mL (0-125); Osmolality Calculated 287 mOsm/kg (285-295); Potassium 3.2 mmol/L (3.5-5.1); Sodium 135 mmol/L (136-145); Total Protein 7.2 g/dL (6.4-8.2)
--- NOTE | 2021-09-15 08:07 | P.PNIM_ITS ---
Progress Note: A&P Assessment and Plan (1) 2019 novel coronavirus-infected pneumonia (NCIP): Code(s): U07.1 - COVID-19; J12.82 - Pneumonia due to coronavirus disease 2019 <BILL Calderon - Last Filed: 09/15/21 16:37> Status: Acute <BILL Calderon - Last Filed: 09/15/21 16:37> Assessment and Plan: * Positive for COVID 09/07/21 * Continue supplementary oxygen * pco2 102.5>98.2>163.5>166.4>155.6>123.4 * po2 62.4>88.2>114.8>42.3>45.4>103.1 * lactic acid WNL * crp 15.2 * continue with azithromycin, Rocephin, olumiant, Solu-Medrol, inhaler and remdesivir * Chest x-ray indicates pneumonia * trop wnl * Blood culture NGTD 09/10/2021 ABG showing improvement after BiPAP 07/29 with reading of pH 7.55, p CO2 59.5, pO2 73.5, HCO3 50.9, O2 Sat 96.5%, continue with COVID regimen as noted above 09/11/2021 Now on HFNC 60/60 with SpO2 97%, Pt reports better breathing 09/12/2021 HFNC continue on current settings as ABG not improved though Pt looks good and sounds better in the lungs. She is likely close to her respiratory baseline. 09/13/2021 HFNC with new settings of 50L/50% FiO2 w/ SpO2 of ~97%, lungs clear but a little diminished, talking in complete sentences, no chest pain, hope to transition to NC tomorrow after AM ABG 09/14/2021 NC @ 5L/min w/ SpO2 >95%, continue with Solu-Medrol (mostly for COPD), Guaifenesin, Baricitinib 09/15/2021 Needs CPAP at night, ABG may be showing Pt's baseline, pCO2 54.9 with pO2 51.5, previous smoker who now admits she started smoking again, will have 6 minute walk test tomorrow. <BILL Calderon - Last Filed: 09/15/21 16:37> (2) GERD (gastroesophageal reflux disease): Code(s): K21.9 - Gastro-esophageal reflux disease without esophagitis <Randy GuzmanBILL Bacon - Last Filed: 09/15/21 16:37> Status: Acute <Randy GuzmanBILL Bacon - Last Filed: 09/15/21 16:37> Assessment and Plan: * Continued pantoprazole <Randy GuzmanBILL Bacon - Last Filed: 09/15/21 16:37> (3) Congestive heart failure: Code(s): I50.9 - Heart failure, unspecified <Randy GuzmanBILL Bacon - Last Filed: 09/15/21 16:37> Status: Acute <Randy GuzmanBILL Bacon - Last Filed: 09/15/21 16:37> Assessment and Plan: * Compensated * BNP 627>808 * Continue Lasix 40 mg daily 09/10/2021 Lasix increased to BID 09/11/2021 Pt on Aldactone, continue Lasix 09/12/2021 BNP 563 has been trending down, lung sounds clear 09/13/2021 BNP 184, will not recheck, clear lungs just a little diminished, no rales, cough with deep inspiration 09/14/2021 ... <Randy GuzmanBILL Bacon - Last Filed: 09/15/21 16:37> (4) COPD (chronic obstructive pulmonary disease): Code(s): J44.9 - Chronic obstructive pulmonary disease, unspecified <BILL Calderon - Last Filed: 09/15/21 16:37> Status: Acute <Randy GuzmanBILL Bacon - Last Filed: 09/15/21 16:37> Assessment and Plan: * Worsening due to COVID-pneumonia * Positive for COVID 09/07/21 * Continue supplementary oxygen * pco2 102.5>98.2>163.5>166.4>155.6>123 * po2 62.4>88.2>114.8>42.3>45.4>103.1 * lactic acid WNL * crp 15.2 * continue with azithromycin, Rocephin, olumiant, Solu-Medrol, inhaler and remdesivir * Chest x-ray indicates pneumonia 09/10/2021 ABG as noted above, continue regimen as noted above, BiPAP added as noted above. 09/11/2021 ABG showing slight increase in pCO2 at 61.1 and increased pO2 at 126.4, Pt now on HFNC as noted above. 09/12/2021 Stable <Randy Tang APN-Elvia - Last Filed: 09/15/21 16:37> Subjective Date/shorty
--- NOTE | 2021-09-15 08:07 | PM.IMPN ---
Progress Note: A&P Assessment and Plan (1) 2019 novel coronavirus-infected pneumonia (NCIP): Code(s): U07.1 - COVID-19; J12.82 - Pneumonia due to coronavirus disease 2019 <BILL Calderon - Last Filed: 09/15/21 16:37> Status: Acute <BILL Calderon - Last Filed: 09/15/21 16:37> Assessment and Plan: Positive for COVID 09/07/21 Continue supplementary oxygen pco2 102.5>98.2>163.5>166.4>155.6>123.4 po2 62.4>88.2>114.8>42.3>45.4>103.1 lactic acid WNL crp 15.2 continue with azithromycin, Rocephin, olumiant, Solu-Medrol, inhaler and remdesivir Chest x-ray indicates pneumonia trop wnl Blood culture NGTD 09/10/2021 ABG showing improvement after BiPAP 07/29 with reading of pH 7.55, pCO2 59.5, pO2 73.5, HCO3 50.9, O2 Sat 96.5%, continue with COVID regimen as noted above 09/11/2021 Now on HFNC 60/60 with SpO2 97%, Pt reports better breathing 09/12/2021 HFNC continue on current settings as ABG not improved though Pt looks good and sounds better in the lungs. She is likely close to her respiratory baseline. 09/13/2021 HFNC with new settings of 50L/50% FiO2 w/ SpO2 of ~97%, lungs clear but a little diminished, talking in complete sentences, no chest pain, hope to transition to NC tomorrow after AM ABG 09/14/2021 NC @ 5L/min w/ SpO2 >95%, continue with Solu-Medrol (mostly for COPD), Guaifenesin, Baricitinib 09/15/2021 Needs CPAP at night, ABG may be showing Pt's baseline, pCO2 54.9 with pO2 51.5, previous smoker who now admits she started smoking again, will have 6 minute walk test tomorrow. <BILL Caldreon - Last Filed: 09/15/21 16:37> (2) GERD (gastroesophageal reflux disease): Code(s): K21.9 - Gastro-esophageal reflux disease without esophagitis <BILL Calderon - Last Filed: 09/15/21 16:37> Status: Acute <Randy GuzmanBILL Bacon - Last Filed: 09/15/21 16:37> Assessment and Plan: Continued pantoprazole <BILL Calderon - Last Filed: 09/15/21 16:37> (3) Congestive heart failure: Code(s): I50.9 - Heart failure, unspecified <BILL Calderon - Last Filed: 09/15/21 16:37> Status: Acute <Randy GuzmanBILL Bacon - Last Filed: 09/15/21 16:37> Assessment and Plan: Compensated BNP 627>808 Continue Lasix 40 mg daily 09/10/2021 Lasix increased to BID 09/11/2021 Pt on Aldactone, continue Lasix 09/12/2021 BNP 563 has been trending down, lung sounds clear 09/13/2021 BNP 184, will not recheck, clear lungs just a little diminished, no rales, cough with deep inspiration 09/14/2021 ... <BILL Calderon - Last Filed: 09/15/21 16:37> (4) COPD (chronic obstructive pulmonary disease): Code(s): J44.9 - Chronic obstructive pulmonary disease, unspecified <BILL Calderon - Last Filed: 09/15/21 16:37> Status: Acute <BILL Calderon - Last Filed: 09/15/21 16:37> Assessment and Plan: Worsening due to COVID-pneumonia Positive for COVID 09/07/21 Continue supplementary oxygen pco2 102.5>98.2>163.5>166.4>155.6>123 po2 62.4>88.2>114.8>42.3>45.4>103.1 lactic acid WNL crp 15.2 continue with azithromycin, Rocephin, olumiant, Solu-Medrol, inhaler and remdesivir Chest x-ray indicates pneumonia 09/10/2021 ABG as noted above, continue regimen as noted above, BiPAP added as noted above. 09/11/2021 ABG showing slight increase in pCO2 at 61.1 and increased pO2 at 126.4, Pt now on HFNC as noted above. 09/12/2021 Stable <Randy Tang, FORENSIC PHOTOGRAPHER-C - Last Filed: 09/15/21 16:37> Subjective Date/time seen: 09/15/21 08:07 Pt was a bit tired this AM and was sleeping late. She is suppose to have her CPAP on at night and was doing so however this seemed to get a bit lost in the light of COVID and attempting to get her back to minimal oxygen requirements. Her ABG this AM is therefor not accurate as she only had her NC on throughout the night. I obtained an additional AB
[2021-09-15] MEDS: methylPREDNISolone SOD SUCC 40 MG VIAL IV PUSH ×2 (09:33→20:34)
[2021-09-15] MEDS: FUROSEMIDE INJ 40 MG/4 ML VIAL IV PUSH ×2 (09:33→16:56)
[2021-09-15] MEDS: NICOTINE (*PBKC) 21 MG PATCH 1 PATCH TRANSDERM (09:34)
[2021-09-15] MEDS: SPIRONOLACTONE 25 MG TABLET PO (09:34)
[2021-09-15] MEDS: DOCUSATE SODIUM 100 MG CAPSULE PO ×2 (09:34→16:56)
[2021-09-15] MEDS: APIXABAN 2.5 MG TABLET PO ×2 (09:35→16:55)
[2021-09-15] MEDS: guaiFENesin 12 HR 600 MG TABCR 1200 MG PO ×2 (09:35→20:29)
[2021-09-15] MEDS: BENZONATATE 100 MG CAPSULE 200 MG PO ×3 (09:35→16:56)
[2021-09-15] MEDS: FLUTICASONE PROPIONATE 0.05% NA SPR 16 GM BTL (*BKC) 1 SPRAY NASAL ×2 (09:36→20:29)
[2021-09-15] MEDS: PANTOPRAZOLE 40 MG TABLET PO ×2 (09:36→20:29)
[2021-09-15] MEDS: LORATADINE 10 MG TABLET PO (09:36)
[2021-09-15] MEDS: ALBUTEROL SULFATE (*SP) INHALER 2 PUFF INHALATION ×4 (09:36→20:48)
[2021-09-15] MEDS: ESCITALOPRAM OXALATE 10 MG TABLET 20 MG PO (09:36)
[2021-09-15] MEDS: MONTELUKAST SODIUM 10 MG TABLET PO (09:36)
[2021-09-15] MEDS: POTASSIUM CHLORIDE 20 MEQ PACKET (FOR LIQUID) PO ×3 (09:39→15:09)
[2021-09-15] MEDS: SACCHAROMYCES BOULARDII 250 MG CAPSULE PO ×3 (09:39→16:56)
[2021-09-15] MEDS: BARICITINIB 2 MG TABLET 4 MG PO (11:12)
[2021-09-15 11:51] LABS: Oxygen Content ABG 16.6 %vol (16.0-22.0); Oxygen Saturation ABG 86.9 % (95-97); Oxyhemoglobin 85.6 % (94-100); PCO2 ABG 54.9 mmHg (35-45); PO2 ABG 51.5 mmHg (80-90); Total Hemoglobin 13.8 g/dL (12.0-18.0); pH ABG 7.48 (7.35-7.45)
[2021-09-15 11:54] LABS: Device NASAL CANNULA; Modified Allen's Test Pass; Site Drawn LEFT RADIAL
--- NOTE | 2021-09-15 18:37 | PC.NURSE ---
Patient cooperative and appropriate with care today. 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 Respiratory contacted. Appetite good. Tolerates O2 via n/c well. Will continue to monitor.
[2021-09-15] MEDS: traZODone HCL 50 MG TABLET PO (20:16)
[2021-09-15] MEDS: AMITRIPTYLINE HCL 10 MG TABLET PO (20:28)
[2021-09-15] MEDS: rOPINIRole HCL 1 MG TABLET 4 MG PO (20:30)
--- NOTE | 2021-09-15 22:10 | PC.NURSE ---
Patient resting in bed with cpap in place.SPO2 98%. Call light in reach. stallings cath patent and draining clear yellow urine.
[2021-09-16] VITALS (13 sets, daily range): BP systolic 110–125; BP diastolic 62–72; PULSE 78–136; RESP 16–95; TEMP 36.4–37.2; O2SAT 87–100
--- NOTE | 2021-09-16 01:42 | PC.NURSE ---
Patient alert and oriented. Call light in reach. Swift catheter patent and draining clear yellow urine. Pain rated at 0
[2021-09-16 05:59] LABS: Base Excess ABG 14.1 mmol/L (0-2); HCO3 ABG 40.4 mmol/L (23-29); Oxygen Content ABG 16.5 %vol (16.0-22.0); Oxygen Saturation ABG 93.9 % (95-97); Oxyhemoglobin 92.8 % (94-100); PCO2 ABG 58.3 mmHg (35-45); PO2 ABG 73.9 mmHg (80-90); Total Hemoglobin 12.6 g/dL (12.0-18.0); pH ABG 7.46 (7.35-7.45)
[2021-09-16 06:08] LABS: Basophils Absolute Auto 0.01 K/mm3 (0.00-0.10); Basophils Percent Auto 0.1 % (0.0-1.0); Eosinophils Absolute Auto 0.03 K/mm3 (0.02-0.50); Eosinophils Percent Auto 0.2 % (1.0-6.0); Hematocrit 44.2 % (35.0-49.0); Hemoglobin 12.4 g/dL (12.0-15.0); Immature Granulocyte Absolute 0.17 K/mm3 (0.00-0.00); Immature Granulocyte Percent A 1.1 % (0.0-0.0); Lymphocytes Absolute Auto 1.72 K/mm3 (1.10-4.50); Mean Corpuscular HGB Conc 28.1 g/dL (32.0-36.0); Mean Corpuscular Hemoglobin 21.9 pg (27.0-31.0); Mean Platelet Volume 9.9 fl (9.2-11.8); Monocytes Absolute Auto 1.34 K/mm3 (0.10-0.90); Monocytes Percent Auto 8.5 % (2.0-11.0); Neutrophils Absolute Auto 12.4 K/mm3 (1.7-7.2); Neutrophils Percent Auto 79.1 % (50.0-70.0); Platelet Count Result 463 K/mm3 (150-420); Red Blood Count 5.67 M/mm3 (4.20-5.40); Red Cell Distribution Width 18.2 % (11.6-14.4); White Blood Count 15.7 K/mm3 (4.8-10.8)
[2021-09-16 06:18] LABS: Device BIPAP; Modified Allen's Test Pass; Site Drawn RIGHT RADIAL
[2021-09-16 06:19] LABS: Expiratory Pressure 13 cmH2O; Inspiratory Pressure 26 cmH2O
[2021-09-16 06:35] LABS: Alanine Aminotransferase 18 U/L (14-59); Alkaline Phosphatase 73 U/L (46-116); Anion Gap 3 mmol/L (8-16); Aspartate Amino Transferase < 10 U/L (15-37); Bilirubin,Total 1.5 mg/dL (0.00-1.00); Blood Urea Nitrogen 24 mg/dL (7-18); Calcium 9.8 mg/dL (8.5-10.1); Carbon Dioxide 39 mmol/L (21-32); Chloride 92 mmol/L (98-108); Estimated CRCL calculation 64 ml/min; Estimated Glomerular Filt Rate 57; Glucose 124 mg/dL (70-99); NT Pro B Type Natriuretic Pept 109 pg/mL (0-125); Osmolality Calculated 283 mOsm/kg (285-295); Potassium 3.5 mmol/L (3.5-5.1); Sodium 134 mmol/L (136-145); Total Protein 7.1 g/dL (6.4-8.2)
--- NOTE | 2021-09-16 07:30 | PC.NURSE ---
Charting for 0358 regarding patients respirations is incorrect. Nurse meant to chart as 02 percentage. This nurse verified with Shakira GRAMAJO over the phone.
[2021-09-16] MEDS: LORATADINE 10 MG TABLET PO (09:49)
[2021-09-16] MEDS: PANTOPRAZOLE 40 MG TABLET PO (09:49)
[2021-09-16] MEDS: ESCITALOPRAM OXALATE 10 MG TABLET 20 MG PO (09:49)
[2021-09-16] MEDS: APIXABAN 2.5 MG TABLET PO (09:49)
[2021-09-16] MEDS: MONTELUKAST SODIUM 10 MG TABLET PO (09:49)
[2021-09-16] MEDS: ALBUTEROL SULFATE (*SP) INHALER 2 PUFF INHALATION ×2 (09:50→13:00)
[2021-09-16] MEDS: guaiFENesin 12 HR 600 MG TABCR 1200 MG PO (09:50)
[2021-09-16] MEDS: SPIRONOLACTONE 25 MG TABLET PO (09:50)
[2021-09-16] MEDS: SACCHAROMYCES BOULARDII 250 MG CAPSULE PO (09:50)
[2021-09-16] MEDS: FLUTICASONE PROPIONATE 0.05% NA SPR 16 GM BTL (*BKC) 1 SPRAY NASAL (09:50)
[2021-09-16] MEDS: NICOTINE (*PBKC) 21 MG PATCH 1 PATCH TRANSDERM (09:50)
[2021-09-16] MEDS: DOCUSATE SODIUM 100 MG CAPSULE PO (09:51)
--- NOTE | 2021-09-16 09:53 | PM.DS ---
DS: Admitting Diagnosis Discharge Date 09/16/2021 Admitting Diagnosis Respiratory Failure, COPD, COVID, CHF DS: Discharge Diagnosis Discharge Diagnosis (1) 2019 novel coronavirus-infected pneumonia (NCIP): Code(s): U07.1 - COVID-19; J12.82 - Pneumonia due to coronavirus disease 2019 Status: Acute Assessment and Plan: Positive for COVID 09/07/21 Continue supplementary oxygen pco2 102.5>98.2>163.5>166.4>155.6>123.4 po2 62.4>88.2>114.8>42.3>45.4>103.1 lactic acid WNL crp 15.2 continue with azithromycin, Rocephin, olumiant, Solu-Medrol, inhaler and remdesivir Chest x-ray indicates pneumonia trop wnl Blood culture NGTD 09/10/2021 ABG showing improvement after BiPAP 07/29 with reading of pH 7.55, pCO2 59.5, pO2 73.5, HCO3 50.9, O2 Sat 96.5%, continue with COVID regimen as noted above 09/11/2021 Now on HFNC 60/60 with SpO2 97%, Pt reports better breathing 09/12/2021 HFNC continue on current settings as ABG not improved though Pt looks good and sounds better in the lungs. She is likely close to her respiratory baseline. 09/13/2021 HFNC with new settings of 50L/50% FiO2 w/ SpO2 of ~97%, lungs clear but a little diminished, talking in complete sentences, no chest pain, hope to transition to NC tomorrow after AM ABG 09/14/2021 NC @ 5L/min w/ SpO2 >95%, continue with Solu-Medrol (mostly for COPD), Guaifenesin, Baricitinib 09/15/2021 Needs CPAP at night, ABG may be showing Pt's baseline, pCO2 54.9 with pO2 51.5, previous smoker who now admits she started smoking again, will have 6 minute walk test tomorrow. 09/16/2021 Pt did well with her 6 minute walk test and may return home at her home oxygen settings with wearing her CPAP at night. She will have steroid taper and inhaler to fruit or nut picker at her pharmacy. (2) GERD (gastroesophageal reflux disease): Code(s): K21.9 - Gastro-esophageal reflux disease without esophagitis Status: Acute Assessment and Plan: Continued pantoprazole (3) Congestive heart failure: Code(s): I50.9 - Heart failure, unspecified Status: Acute Assessment and Plan: Compensated BNP 627>808 Continue Lasix 40 mg daily 09/10/2021 Lasix increased to BID 09/11/2021 Pt on Aldactone, continue Lasix 09/12/2021 BNP 563 has been trending down, lung sounds clear 09/13/2021 BNP 184, will not recheck, clear lungs just a little diminished, no rales, cough with deep inspiration 09/14/2021 ... (4) COPD (chronic obstructive pulmonary disease): Code(s): J44.9 - Chronic obstructive pulmonary disease, unspecified Status: Acute Assessment and Plan: Worsening due to COVID-pneumonia Positive for COVID 09/07/21 Continue supplementary oxygen pco2 102.5>98.2>163.5>166.4>155.6>123 po2 62.4>88.2>114.8>42.3>45.4>103.1 lactic acid WNL crp 15.2 continue with azithromycin, Rocephin, olumiant, Solu-Medrol, inhaler and remdesivir Chest x-ray indicates pneumonia 09/10/2021 ABG as noted above, continue regimen as noted above, BiPAP added as noted above. 09/11/2021 ABG showing slight increase in pCO2 at 61.1 and increased pO2 at 126.4, Pt now on HFNC as noted above. 09/12/2021 Stable DS: Summary Hospital Course Hospital Course: Pt recovered well from her respiratory issues and is able to return home with her home O2 settings. She will also have a steroid taper pack and inhaler to use at home. Time Spent with Patient Time attestation: Total time spent providing and/or coordinating discharge services: < 30 Minutes Exam Const: General: cooperative, comfortable, no acute distress, well developed, alert, awake and Physically active Nutritional Appearance: obese Resp: Effort & Inspection: normal respiratory effort and Actively coughing (with deep inspiration) Auscultation: diminished lung sounds Cardio: Rate: regular rate Heart sounds: S1 normal heart sound present and S2 normal heart sound present Skin: General skin exam: normal color and dry skin Neuro: General: orien
[2021-09-16] MEDS: BENZONATATE 100 MG CAPSULE 200 MG PO (10:17)
--- NOTE | 2021-09-16 11:26 | HOMEO2EVAL ---
Evaluation was performed at [facility] Home Oxygen Evaluation RC: Home Oxygen (O2) Evaluation Start: 09/16/21 05:00 Freq: ONCE Status: Active Protocol: RPE Activity Type Activity Date Activity User E-Sign Co-Sign Detail Recorded Client Recorded Date Recorded By Document 09/16/21 09:00 DIMITRIS [id number] 09/16/21 11:26 DIMITRIS Document 09/16/21 09:02 DIMITRIS [id number] 09/16/21 11:26 DIMITRIS Document 09/16/21 09:04 DIMITRIS [id number] 09/16/21 11:26 DIMITRIS Document 09/16/21 09:06 DIMITRIS [id number] 09/16/21 11:26 DIMITRIS Document 09/16/21 09:08 DIMITRIS [id number] 09/16/21 11:26 DIMITRIS 09/16/21 09/16/21 09/16/21 09:00 09:02 09:04 Home O2 Evaluation Test Phase Resting Resting Resting Oxygen Delivery Room Air Nasal Cannula Nasal Cannula Oxygen Flow Rate (L/min) 1 2 Pulse Oximetry (90-100 %) 87 L 88 L 93 Pulse Rate (60-100 beats/min) 118 H 116 H 110 H Activity Tolerance Fair Rating of Perceived Dyspnea (PD) Rate of Perceived Exertion (PE) Ambulation Distance (feet) Ambulation Distance (meters) Home Oxygen Evaluation Comments at rest will At rest, will will begin walk add oxygen at 1 increase oxygen , using walker lpm to 2 lpm n/c. and gait belt, on 2 lpm Treatment Charges O2 Evaluation - Inpatient 09/16/21 09/16/21 09:06 09:08 Home O2 Evaluation Test Phase Exercise Exercise Oxygen Delivery Nasal Cannula Nasal Cannula Oxygen Flow Rate (L/min) 2 3 Pulse Oximetry (90-100 %) 88 L 92 Pulse Rate (60-100 beats/min) 125 H 136 H Activity Tolerance Poor Poor Rating of Perceived Dyspnea (PD) +2 Mild, Some +2 Mild, Some Difficulty, Difficulty, Noticeable to Noticeable to the Observer the Observer Rate of Perceived Exertion (PE) 13 Somewhat 13 Somewhat Hard Hard Ambulation Distance (feet) 30 30 Ambulation Distance (meters) 9.14 9.14 Home Oxygen Evaluation Comments will increase Walked using oxygen to 3 lpm walker & gait belt, poor gait , legs wobbly, sob due to heart rate. Encouraged PLB. Sp02 on 3 lpm maintained >90% . Treatment Charges
[2021-09-16] MEDS: BARICITINIB 2 MG TABLET 4 MG PO (12:00)
--- NOTE | 2021-09-17 13:31 | PC.NURSE ---
Pt states she received and understood her discharge instructions. Pt has no other comments.
== END 2021-09-16 15:40 | disposition home or self-care (01) | DRG 177 ==
LOC: CHSED 12:09 → CHS2ND 13:05
PROVIDERS: Nurse Practitioner; Nurse Practitioner Family; Admitting Provider Emergency Medicine; Emergency Provider Emergency Medicine; Visit Provider Emergency Medicine
DX: U07.1 COVID-19 (principal); J12.82 Pneumonia due to coronavirus disease 2019; J44.9 Chronic obstructive pulmonary disease, unspecified; J96.12 Chronic respiratory failure with hypercapnia; J96.11 Chronic respiratory failure with hypoxia; I50.9 Heart failure, unspecified; I82.C29 Chronic embolism and thrombosis of unspecified internal jugular vein; F17.200 Nicotine dependence, unspecified, uncomplicated; Z79.01 Long term (current) use of anticoagulants; Z86.73 Personal history of transient ischemic attack (TIA), and cerebral infarction without residual deficits; I25.10 Atherosclerotic heart disease of native coronary artery without angina pectoris; K21.9 Gastro-esophageal reflux disease without esophagitis; F17.210 Nicotine dependence, cigarettes, uncomplicated
CPT/HCPCS: 36415; 36600; 70450; 71045; 80053; 81001; 82375; 82805; 83050; 83605; 83735; 83880; 84450; 84460; 84484; 85025; 85610; 85730; 86140; 87040; 87077; 87086; 87088; 87186; 87502; 93005; 94002; 94003; 94618; 94640; 94660; 96374; 96375; 97014; 97110; 97161; 97165; 97530; 97535; 99285; A9270; C9803; G0283; J0456; J0696; J1940; J2060; J2920; J2930; J7042; U0003; U0005

== ENCOUNTER 2022-08-27 06:39 | Emergency (ER) | payer OTHER, SELFPAY ==
[2022-08-27] VITALS (92 sets, daily range): BP systolic 93–161; BP diastolic 51–112; PULSE 71–125; RESP 11–34; TEMP 36.4–36.6; O2SAT 84–100
--- NOTE | ~2022-08-27 | CT_ITS ---
EXAMINATION: CT brain wo con DATE: 08/27/2022 16:07 INDICATION: Altered mental state TECHNIQUE: Computed tomography (CT) of the head was performed without intravenous contrast. The mA wa s adjusted according to patient size. Iterative reconstruction technique was employed. Exam dose: 60 5.33 mGy-cm total exam DLP. COMPARISON: 09/07/2021 CT brain FINDINGS: No intracranial mass lesion or hemorrhage, midline shift or mass effect effect. Normal vent ricular size. No subdural or epidural hematoma. No fracture or bone destruction of the cranial vault. Normal development and aeration of the paranasal sinuses and mastoid air cells. IMPRESSION: No significant intracranial abnormality Reviewed, dictated and finalized at Location A. Reviewed, dictated and finalized at location B. RIALS ENGINEERING TECHNICIAN
--- NOTE | ~2022-08-27 | XR_ITS ---
Portable chest x-ray Comparison: 09/10/2021 Clinical History: Shortness of breath Findings: Extensive hazy pulmonary disease is present. No pleural effusion or pneumothorax. Cardiom ediastinal silhouette is stable. Bones and soft tissues are unremarkable. Impression: Probable moderate pulmonary edema. Correlate clinically for pneumonia. Consider chronic interstitial disease, although this is felt to be less likely. Reviewed, dictated and finalized at [facility]. RIBUTION DISPATCHER Impression: Probable moderate pulmonary edema. Correlate clinically for pneumonia. Consider chronic interstitial disease, although this is felt to be less likely.
--- NOTE | ~2022-08-27 | CT_ITS ---
EXAMINATION: CT chest high resolution wo ok DATE: 08/27/2022 16:07 INDICATION: respiratory failure TECHNIQUE: Computed tomography (CT) of the chest was performed without intravenous contrast. Automate d exposure control and iterative reconstruction technique were employed. The dose-length product was 818.52 mGy-cm. COMPARISON: X-ray chest 08/27/2022 and CTA chest 07/21/2018. FINDINGS: CHEST: Endotracheal tube terminating 2.5 cm above the maria esther. Thoracic aorta: No significant dilation. Moderate arch calcification. Lung parenchyma and airways: Diffuse tree-in-bud opacities most evident in the right lung. Scattered centrilobular nodular opacities measuring up to 11 mm in the right upper lobe. Mild interlobular sept al thickening. Bibasilar dependent opacities likely representing atelectasis. Mild emphysematous juarez ge. Thoracic inlet, axillae and chest wall: No thyroid or soft tissue mass. No axillary lymphadenopathy. Mediastinum: Mediastinal lymphadenopathy. Dilated central pulmonary arteries as can be seen with pulm onary arterial hypertension. Heart and pericardium: Normal heart size. Aortic valve calcification. No pericardial effusion. Coronary artery calcifications: Mild. Pleura: Trace bilateral pleural fluid. Upper abdomen: No significant finding. Thoracic bones: No acute osseous finding in the chest. IMPRESSION: 1. Tree-in-bud opacities as can be seen with atypical infection (including but not limited to: MAC, T B, fungal), ABPA, airways disease, and less likely aspiration. 2. Nodular opacity in right upper lobe should be followed after the appropriate therapy and cessation of symptoms to ensure resolution. 3. Mediastinal lymphadenopathy. 4. Trace bilateral pleural effusions. 5. Mild interstitial edema. Reviewed, dictated and finalized at location K. G[facility]ENTER IMPRESSION: 1. Tree-in-bud opacities as can be seen with atypical infection (including but not limited to: MAC, TB, fungal), ABPA, airways disease, and less likely aspira tion. 2. Nodular opacity in right upper lobe should be followed after the appropriate therapy and cessation of symptoms to ensure resolution. 3. Mediastinal lymphadenopathy. 4. Trace bilateral pleural effusions. 5. Mild interstitial edema.
--- NOTE | ~2022-08-27 | XR_ITS ---
Portable chest x-ray Comparison: 08/27/2022 at 8:08 AM Clinical History: Tube placement Findings: Endotracheal tube is in satisfactory position. Extensive interstitial disease again presen t. Cardiomediastinal silhouette is stable. Bones and soft tissues are unremarkable. Impression: ET tube in satisfactory position. Stable diffuse chronic interstitial disease versus interstitial pulmonary edema. Reviewed, dictated and finalized at [facility]. RVISOR PHOSPHORIC ACID Impression: ET tube in satisfactory position. Stable diffuse chronic interstitial disease versus interstitial pulmonary edema .
--- NOTE | 2022-08-27 06:43 | ECG_ITS ---
Measurements Intervals [place] Rate: 114 P: MA: 0 QRS: 72 QRSD: 135 T: 45 QT: 316 QTc: 437 Interpretive Statements SINUS TACHYCARDIA RIGHT BUNDLE BRANCH BLOCK BASELINE ARTIFACT- II, III, AVL, AVF, V5-V6 ABNORMAL ECG COMPARED TO ECG 09/07/2021 09:24:16 RIGHT BUNDLE-BRANCH BLOCK NOW PRESENT Electronically Signed On 08-27-2022 7:02:59 LABORATORY ADMINISTRATIVE DIRECTOR by Hong Meade D.O.
[2022-08-27 06:58] LABS: HCO3 ABG 41.9 mmol/L (23-29); Oxygen Content ABG 17.9 %vol (16.0-22.0); Oxygen Saturation ABG 91.3 % (95-97); Oxyhemoglobin 88.2 % (94-100); PO2 ABG 62.9 mmHg (80-90); Total Hemoglobin 14.4 g/dL (12.0-18.0); pH ABG 7.24 (7.35-7.45)
[2022-08-27 07:02] LABS: Hematocrit 45.1 % (35.0-49.0); Hemoglobin 12.9 g/dL (12.0-15.0); Mean Corpuscular HGB Conc 28.6 g/dL (32.0-36.0); Mean Platelet Volume 9.1 fl (9.2-11.8); Modified Allen's Test Pass; PCO2 ABG 100.3 mmHg (35-45); Platelet Count Result 275 K/mm3 (150-420); Red Cell Distribution Width 13.3 % (11.6-14.4); Site Drawn RIGHT RADIAL
[2022-08-27 07:03] LABS: Device NASAL CANNULA
[2022-08-27 07:05] LABS: White Blood Count 27.6 K/mm3 (4.8-10.8)
--- NOTE | 2022-08-27 07:13 | ED.SOB ---
HPI - SOB/Dyspnea General Chief Complaint: Shortness of Breath/Dyspnea Stated Complaint: ambulance Time Seen by Provider: 08/27/22 07:12 Source: EMS, RN notes reviewed and other (MD at change of shift) Mode of arrival: EMS Limitations: altered mental status History of Present Illness HPI Narrative: 62 year old female arrives to the Emergency Department via EMS. Patient is hypoxic and AMS. She has a history of COPD, CVA. Family reports patient decided to take off her home O2 2 days ago. She was dropping her sats into the 50%. When EMS arrived, her O2 sat was 60%. She was given Albuterol neb, Solu Medrol 125mg IVP and Mag Sulfate 2 gm. Upon arrival patient was placed on NRB mask and then venturi at 55%. Her sats now in low 90's. Patient more responsive, but confused still stating she needs someone to come pick her up and still somewhat confused to surroundings. MD elicited complaint: shortness of breath Pertinent past history: COPD Onset (ago): day(s) (2) Context: other (took her home O2 off 2 days ago) Timing: constant Relieving factors: oxygen Known history of: COPD Associated symptoms: denies other symptoms Treatment prior to arrival: oxygen, bronchodilator and other (solu medrol) Related Data Home oxygen amount: other (unknown) Home Medications Medication Instructions Recorded Confirmed amitriptyline 10 mg tablet 10 mg PO HS 09/07/21 09/07/21 apixaban 2.5 mg tablet (Eliquis) 2.5 mg PO BID 09/07/21 09/07/21 escitalopram oxalate 20 mg tablet 20 mg PO DAILY 09/07/21 09/07/21 furosemide 40 mg tablet 40 mg PO DAILY 09/07/21 09/07/21 hydroxyzine HCl 25 mg tablet 25 mg PO TID PRN Anxiety 09/07/21 09/07/21 montelukast 10 mg tablet 10 mg PO DAILY 09/07/21 09/07/21 omeprazole 40 mg capsule,delayed 40 mg PO DAILY 09/07/21 09/07/21 release ropinirole 4 mg tablet 4 mg PO HS 09/07/21 09/07/21 spironolactone 25 mg tablet 25 mg PO DAILY 09/07/21 09/07/21 trazodone 50 mg tablet 50 mg PO HS 09/07/21 09/07/21 Allergies Allergy/AdvReac Type Severity Reaction Status Date / Time No Known Drug Allergies Allergy Verified 09/07/21 09:22 Review of Systems Review of Systems: Patient with known shortness of breath and altered mental status, o/w unable to obtain any meaningful ROS. ROS unobtainable: Yes unobtainable due to medical condition and unobtainable due to mental status Constitutional: Constitutional: Reports as per HPI Cardiovascular: Cardiovascular: Reports as per HPI Respiratory: Respiratory: Reports as per HPI and Reports dyspnea Neurologic: Reports system reviewed and no additional complaints, except as documented and Reports confusion [facility] Past Medical History Medical History (Updated 08/27/22 @ 12:12 by Randy Adhikari MD) Congestive heart failure COPD (chronic obstructive pulmonary disease) CVA (cerebral vascular accident) GERD (gastroesophageal reflux disease) Jugular vein thrombosis Family History Family History Father Hypertension Acute myocardial infarction Sibling Hypertension Mother Family history of heart disease in male family member before age 55 Brother Acute myocardial infarction Father Acute myocardial infarction Other Cerebrovascular accident Family history of cardiovascular disease Social History Social History Smoking packs per day: 1 Smoking cigarettes per day: 20.0 Smoking status: Current every day smoker Tobacco type: cigarettes Second hand tobacco smoke exposure: Yes Alcohol intake: never Exam Const: General: confusion Nutritional Appearance: obese Limitations: altered mental status HENMT: Head: normal to inspection Ears: external ears normal Face/Nose/Sinus: Normal external nose present Face and sinus: normal facial exam Mouth: Yes Normal oral and palatal mucosa present Teeth and gingiva: dentition normal Throat: posterior orophary
[2022-08-27 07:16] LABS: Band Neutrophils Percent 7 % (0-6); Eosinophils Absolute Manual 0.27 K/mm3 (0.02-0.5); Eosinophils Percent Manual 1 % (1-6); Lymphocytes Absolute Manual 1.93 K/mm3 (1.1-4.5); Lymphocytes Percent Manual 7 % (18-44); Metamyelocytes Percent 1 %; Monocytes Absolute Manual 1.93 K/mm3 (0.1-0.90); Monocytes Percent Manual 7 % (3-9); Neutrophils Absolute Manual 23.18 K/mm3 (1.7-7.2); Neutrophils Percent Manual 77 % (46-73); Platelet Estimate Adequate (Adequate); Total Cells Counted 100
[2022-08-27 07:25] LABS: Alanine Aminotransferase 16 U/L (14-59); Albumin Level 2.6 g/dL (3.4-5.0); Alkaline Phosphatase 132 U/L (46-116); Anion Gap 0 mmol/L (8-16); Aspartate Amino Transferase < 10 U/L (15-37); Bilirubin,Total 0.6 mg/dL (0.00-1.00); Blood Urea Nitrogen 21 mg/dL (7-18); Calcium 9.7 mg/dL (8.5-10.1); Carbon Dioxide 41 mmol/L (21-32); Chloride 94 mmol/L (98-108); Estimated Glomerular Filt Rate > 60; Glucose 217 mg/dL (70-99); NT Pro B Type Natriuretic Pept 1073 pg/mL (0-125); Osmolality Calculated 290 mOsm/kg (285-295); Potassium 4.3 mmol/L (3.5-5.1); Sodium 135 mmol/L (136-145); Total Protein 8.5 g/dL (6.4-8.2)
[2022-08-27 07:33] LABS: CRP > 25.0 mg/dL (0.0-0.9)
--- NOTE | 2022-08-27 07:33 | PC.NURSE ---
Pt has been placed on a venturi mask at 55% per respiratory.
[2022-08-27 07:36] LABS: Influenza A QL RT-PCR Negative (Negative); Influenza B QL RT-PCR Negative (Negative); RSV RNA, RT-PCR Negative (Negative); SARS-CoV-2 RNA PCR Negative (Negative)
[2022-08-27 08:10] LABS: Troponin I 28.7 ng/L (0.00-60.4)
[2022-08-27] MEDS: LORazepam INJ (*CRX) 2 MG/ML VIAL 1 MG IV PUSH (08:14)
[2022-08-27] MEDS: FUROSEMIDE INJ 40 MG/4 ML VIAL IV PUSH (09:15)
[2022-08-27 09:22] LABS: Base Excess ABG 9.6 mmol/L (0-2); HCO3 ABG 42.9 mmol/L (23-29); Oxygen Content ABG 18.8 %vol (16.0-22.0); Oxygen Saturation ABG 96.1 % (95-97); Oxyhemoglobin 93.8 % (94-100); PO2 ABG 88.1 mmHg (80-90); Total Hemoglobin 14.2 g/dL (12.0-18.0); pH ABG 7.18 (7.35-7.45)
[2022-08-27 09:24] LABS: Device BIPAP; Modified Allen's Test Pass; PCO2 ABG 117.4 mmHg (35-45); Site Drawn LEFT RADIAL
[2022-08-27 09:25] LABS: Expiratory Pressure 6 cmH2O; Inspiratory Pressure 12 cmH2O
[2022-08-27] MEDS: ETOMIDATE 20 MG/10 ML AMPUL (10:15)
[2022-08-27] MEDS: RAPID SEQUENCE INTUBATION KIT 1 EACH (10:20)
[2022-08-27] MEDS: MIDAZOLAM HCL (*CRX) 2 MG/2 ML VIAL (10:25)
[2022-08-27] MEDS: MIDAZOLAM 100MG/NS 100ML(*CRX) 100 MG/100 ML BAG (10:30)
--- NOTE | 2022-08-27 10:45 | PC.NURSE ---
at 1020 erp intubated pt with 7.5 et tube without difficulty. measures 23 at lip. PCXR completed. thick green secretions suctioned from oral and nasal cavities. specimen collected.
--- NOTE | 2022-08-27 10:48 | PC.NURSE ---
pt continues to cough off and on. resp therapy at bedside suctioning airway. versed titrated ^ to 10mg/hr
[2022-08-27 10:54] LABS: Add Urine Microscopic? YES; Appearance Urine Clear (Clear); Bilirubin Urine Negative (Negative); Blood Urine 1+ (Negative); Color Urine Orange (Yellow); Glucose Urine UA Negative (Negative); Ketones Urine Negative (Negative); Leukocyte Esterase Ur 1+ LEU/UL (Negative); Nitrate Urine Negative (Negative); Protein Urine 2+ (Negative); Specific Grav Ur >= 1.030 (1.010-1.020); pH Urine 5.5 (5.0-8.0)
[2022-08-27 11:02] LABS: Bacteria Urine 3+ /hpf; Squamous Epithelial Cell Urine Few /hpf (Few); WBC Urine 31-50 /hpf (0-3)
[2022-08-27 12:41] LABS: Base Excess ABG 11.2 mmol/L (0-2); HCO3 ABG 41.8 mmol/L (23-29); Oxygen Content ABG 19.2 %vol (16.0-22.0); Oxygen Saturation ABG 99.4 % (95-97); Oxyhemoglobin 97.6 % (94-100); Total Hemoglobin 13.5 g/dL (12.0-18.0); pH ABG 7.28 (7.35-7.45)
[2022-08-27 12:43] LABS: PCO2 ABG 90.8 mmHg (35-45)
[2022-08-27 12:44] LABS: Device VENTILATOR; Modified Allen's Test Pass; Site Drawn RIGHT RADIAL
[2022-08-27 12:45] LABS: Arterial Blood Gas PEEP 10 cmH2O; Arterial Blood Gas Tidal Volume 500 ml; Arterial Blood Gas Vent Mode ASSIST CONTROL; Arterial Blood Gas Ventilator rate 20 /MIN
--- NOTE | 2022-08-27 14:13 | PC.NURSE ---
pt pulled at iv and dislodged right hand site. versed gtt meter installer and remover to right a/c site. dressing applied to right hand iv site.
[2022-08-27 15:45] LABS: Base Excess ABG 15.2 mmol/L (0-2); HCO3 ABG 41.1 mmol/L (23-29); Oxygen Content ABG 18.5 %vol (16.0-22.0); Oxygen Saturation ABG 98.4 % (95-97); Oxyhemoglobin 97.1 % (94-100); PO2 ABG 98.1 mmHg (80-90); Total Hemoglobin 13.5 g/dL (12.0-18.0); pH ABG 7.49 (7.35-7.45)
[2022-08-27 15:48] LABS: Modified Allen's Test Pass
[2022-08-27 15:49] LABS: Device VENTILATOR
[2022-08-27 15:50] LABS: Site Drawn RIGHT RADIAL
[2022-08-27 15:55] LABS: Arterial Blood Gas Ventilator rate 24 /MIN
[2022-08-27 15:57] LABS: Arterial Blood Gas Vent Mode ASSIST CONTROL
[2022-08-27 15:58] LABS: Arterial Blood Gas PEEP 10 cmH2O; Arterial Blood Gas Pressure Support 100 cmH2O
[2022-08-27 16:01] LABS: Arterial Blood Gas Tidal Volume 500 ml; Fractional Inspired Oxygen 60 %
[2022-08-27] MEDS: MIDAZOLAM 100MG/NS 100ML(*CRX) 100 MG/100 ML BAG 15 MG IV CONT (16:54)
--- NOTE | 2022-09-02 13:36 | PC.NURSE ---
FINAL BLOOD CULTURE REPORTS X 2: NO GROWTH AFTER 5 DAYS
--- NOTE | 2022-09-09 14:20 | PC.NURSE ---
FINAL BLOOD CULTURE RESULTS X2: NO GROWTH AFTER 5 DAYS. NO ACTION NEEDED.
== END 2022-08-27 18:00 | disposition short-term general hospital (02) ==
PROVIDERS: Emergency Medicine; Emergency Provider Emergency Medicine
DX: J96.20 Acute and chronic respiratory failure, unspecified whether with hypoxia or hypercapnia (principal); J44.1 Chronic obstructive pulmonary disease with (acute) exacerbation; I50.9 Heart failure, unspecified; K21.9 Gastro-esophageal reflux disease without esophagitis; Z86.73 Personal history of transient ischemic attack (TIA), and cerebral infarction without residual deficits; F17.210 Nicotine dependence, cigarettes, uncomplicated; Z79.01 Long term (current) use of anticoagulants; Z79.51 Long term (current) use of inhaled steroids; Z20.822 Contact with and (suspected) exposure to COVID-19; Z79.899 Other long term (current) drug therapy; Z79.52 Long term (current) use of systemic steroids
CPT/HCPCS: 31500; 36415; 36600; 70450; 71045; 71250; 80053; 81001; 82805; 83880; 84484; 85025; 86140; 87040; 87070; 87077; 87086; 87088; 87147; 87186; 87205; 87637; 93005; 96365; 96367; 96375; 96376; 99291; A4565; J0330; J0456; J0696; J1940; J2060; J2250

== ENCOUNTER 2022-08-27 19:02 | Inpatient (IN) | payer OTHER, SELFPAY ==
[2022-08-27] VITALS (14 sets, daily range): BP systolic 116–128; BP diastolic 68–75; PULSE 76–98; RESP 17–20; TEMP 37.2; O2SAT 95–99; BMI 39.2
--- NOTE | ~2022-08-27 | XR_ITS ---
XR chest 1V portable 08/30/2022 05:58 Indication: Respiratory failure Procedure: AP portable chest Comparison: Comparison to multiple prior studies sequentially, with oldest reviewed study dated 11/2022. Findings: Cardiomegaly. There is developing pulmonary edema. Small right pleural effusion. No pneumot horax. Endotracheal tube tip 3.4 cm above the maria esther. NG tube passes into the stomach. No pneumothora x. No acute osseous abnormality. Impression: 1: Cardiomegaly with developing pulmonary edema. Reviewed, dictated and finalized at location A. T SERVICES COORDINATOR Impression: 1: Cardiomegaly with developing pulmonary edema.
--- NOTE | ~2022-08-27 | CT_ITS ---
EXAMINATION: CT sinus wo con DATE: 09/10/2022 09:07 INDICATION: Sepsis. Evaluate for sinus infection TECHNIQUE: Computed tomography (CT) of the paranasal sinuses was performed without contrast. Iterativ e reconstruction technique was employed. Exam dose: 271.75 mGy-cm total exam DLP. COMPARISON: 09/06/2022 CDT FINDINGS: The paranasal sinuses and mastoid air cells are normally developed and aerated. No mucoperi osteal thickening, air-fluid level, soft tissue mass density of the paranasal sinuses. The mastoid ai r cells are normally developed and aerated. Middle and inner ear apparatus appear normal bilaterally. There is leftward bowing of the nasal septum. The nasal turbinates are symmetric and normal in size. The ostiomeatal units are patent. IMPRESSION: Negative paranasal sinuses and mastoid air cells Reviewed, dictated and finalized at Location A. Reviewed, dictated and finalized at location B. ENT EXPERIENCE COORDINATOR
--- NOTE | ~2022-08-27 | XR_ITS ---
XR chest 1V portable DATE: 09/07/2022 09:39 INDICATION: Post code. Respiratory failure. TECHNIQUE: Portable AP chest on 09/07/2022 0936 hours COMPARISON: 09/07/2022 portable AP chest at 0535 hours FINDINGS: There are persistent bilateral lower lung infiltrates and/or atelectasis, right greater anny n left. Consider pneumonia and aspiration pneumonitis. Heart size appears within normal range considering magnification associated with AP projection. ET tube tip approximately 5 x 5 cm above maria esther. NG tube position is mild determined due to underpene tration in the lower chest and possibly motion is well. No pleural effusion or pneumothorax is evident. IMPRESSION: Persistent bilateral lower lung infiltrate and/atelectasis, right greater than left Reviewed, dictated and finalized at location A. TRAILER FILLER IMPRESSION: Persistent bilateral lower lung infiltrate and/atelectasis, right g reater than left
--- NOTE | ~2022-08-27 | XR_ITS ---
XR chest port-a-cath/central DATE: 09/08/2022 14:28 INDICATION: Tunneled dialysis catheter TECHNIQUE: Portable AP chest on 09/08/2022 at 1423 hours COMPARISON: 09/08/2022 portable AP chest FINDINGS: ET and NG tubes in satisfactory position. Left internal jugular dialysis catheter tip overlies the superior vena cava. No pneumothorax. Prominent bibasilar infiltrate and/or atelectasis. Osteopenia. IMPRESSION: Left internal jugular tunneled dialysis catheter tip overlying superior vena cava Prominent bibasilar infiltrate or atelectasis No pneumothorax Reviewed, dictated and finalized at Location A. Reviewed, dictated and finalized at location B. F BUSINESS OFFICER IMPRESSION: Left internal jugular tunneled dialysis catheter tip overlying supe rior vena cava Prominent bibasilar infiltrate or atelectasis No pneumothorax
--- NOTE | ~2022-08-27 | XR_ITS ---
Portable chest x-ray Comparison: 09/09/2022 Clinical History: Respiratory failure Findings: Endotracheal tube, NG tube, and bilateral central venous lines remain in place. There is p robable bibasilar scarring or atelectasis. Cardiomediastinal silhouette is stable. Bones and soft ti ssues are unremarkable. Impression: Stable support tubes. Probable bibasilar atelectatic change or bibasilar chronic interstitial disease. Reviewed, dictated and finalized at location M. GE BUFFER Impression: Stable support tubes. Probable bibasilar atelectatic change or bibasilar chronic interstitial disease .
--- NOTE | ~2022-08-27 | XR_ITS ---
XR chest ET placement DATE: 09/07/2022 10:32 INDICATION: ET tube placement TECHNIQUE: Portable AP chest on 09/07/2022 at 1020 hours COMPARISON: 09/07/2022 portable AP chest at 0936 hours FINDINGS: ET tube in satisfactory position approximately 3.8 cm above maria esther. NG tube is noted passin g into the stomach. Left internal jugular central venous catheter tip overlies superior vena cava. No pneumothorax. Persistent bibasilar infiltrate and/or atelectasis. IMPRESSION: ET tube in satisfactory position NG tube in stomach Left subclavian central venous catheter in superior vena cava. Bibasilar infiltrate and/or atelectasis Reviewed, dictated and finalized at Location A. Reviewed, dictated and finalized at location A. NG DEPARTMENT END FINDER
--- NOTE | ~2022-08-27 | XR_ITS ---
EXAMINATION: XR chest 1V portable DATE: 09/02/2022 05:39 INDICATION: Respiratory failure. TECHNIQUE: A single frontal view of the chest was obtained. COMPARISON: Chest single view 09/01/2022, chest CT 08/27/2022 FINDINGS: There is a small left pleural effusion. There is a diffuse interstitial pattern in the lung s. There are airspace opacities in the lower lung zones. No pneumothorax. The heart size is normal. T he endotracheal tube tip is 3.0 cm above the maria esther. The nasogastric tube tip is beyond the inferior margin of the radiograph, but at least to the stomach. A left internal jugular central venous cathete r is seen with tip in the superior vena cava. IMPRESSION: 1. Diffuse lung disease with worsening at the lung bases, consistent with pneumonia versus pulmonary edema. 2. Small left pleural effusion. Reviewed, dictated and finalized at location A. ARCH ENGINEER MARINE EQUIPMENT IMPRESSION: 1. Diffuse lung disease with worsening at the lung bases, consistent with pneum onia versus pulmonary edema. 2. Small left pleural effusion.
--- NOTE | ~2022-08-27 | US_ITS ---
EXAMINATION: US venous doppler [facility] DATE: 09/05/2022 09:05 INDICATION: Lower limb edema. Fever. TECHNIQUE: Grayscale ultrasound images without and with compression and Doppler ultrasound images of the bilateral lower extremity veins were obtained. COMPARISON: None. FINDINGS: The visualized portions of right common femoral vein, profunda (deep) femoral vein, femoral vein, pop liteal vein, peroneal veins, posterior tibial veins, and greater saphenous vein outflow are patent. The visualized portions of left common femoral vein, profunda femoral vein, femoral vein, popliteal v ein, peroneal veins, posterior tibial veins, and greater saphenous vein outflow are patent. IMPRESSION: 1. No deep venous thrombosis. Reviewed, dictated and finalized at location A. FISHER
--- NOTE | ~2022-08-27 | XR_ITS ---
Portable chest x-ray Comparison: 09/10/2022 Clinical History: Respiratory failure Findings: Endotracheal tube, NG tube, and right-sided central venous line are in satisfactory positi ons. Bibasilar interstitial prominence again noted. Cardiomediastinal silhouette is stable. Bones an d soft tissues are unremarkable. Impression: Support tubes, as above. Bibasilar chronic interstitial disease or mild bibasilar interstitial pulmonary edema. Reviewed, dictated and finalized at location M. E TRIMMER Impression: Support tubes, as above. Bibasilar chronic interstitial disease or mild bibasilar interstitial pulmonary edema.
--- NOTE | ~2022-08-27 | XR_ITS ---
EXAMINATION: XR chest ET placement DATE: 09/05/2022 05:18 INDICATION: Respiratory failure. Intubation. TECHNIQUE: A single frontal view of the chest was obtained. COMPARISON: Chest single view 09/04/2022, chest CT 08/27/2022 FINDINGS: There are airspace opacities in the lower lung zones. No pleural effusion or pneumothorax. The heart size is normal. The endotracheal tube tip is 3.7 cm above the maria esther. The nasogastric tube tip is beyond the inferior margin of the radiograph, but at least to the stomach. A left internal jug ular central venous catheter is seen with tip in the superior vena cava. IMPRESSION: 1. Stable airspace opacities in the lower lung zones, consistent with atelectasis versus pneumonia. Reviewed, dictated and finalized at location A. HERMAL ELECTRICAL ENGINEER IMPRESSION: 1. Stable airspace opacities in the lower lung zones, consistent with atelectas is versus pneumonia.
--- NOTE | ~2022-08-27 | XR_ITS ---
EXAMINATION: XR chest 1V portable DATE: 09/06/2022 23:51 INDICATION: Change in respiratory status TECHNIQUE: frontal view of the chest was obtained. COMPARISON: Chest radiograph dated 09/06/2022, 09/05/2022 and 09/04/2021 FINDINGS: Large bore left internal jugular central venous catheter with distal tip at the midsuperior vena cava . No significant change in opacities in the left lower lung zone. No pulmonary edema, pleural effusio n or pneumothorax.. The cardiomediastinal silhouette is normal. IMPRESSION: 1. Unchanged mild opacities in the left lower lung zone which could represent atelectasis or pneumoni a but which have improved since 09/04/2022. Reviewed, dictated and finalized at location A. E SAWYER IMPRESSION: 1. Unchanged mild opacities in the left lower lung zone which could represent a telectasis or pneumonia but which have improved since 09/04/2022.
--- NOTE | ~2022-08-27 | XR_ITS ---
Portable chest x-ray Comparison: 09/08/2022 Clinical History: Respiratory failure Findings: Endotracheal tube, NG tube, and left-sided central venous line are in place. Lungs are nolvia ar, without focal consolidation or pleural effusion. Questionable mild bibasilar prominence. Cardiom ediastinal silhouette is stable. Bones and soft tissues are unremarkable. Impression: Support tubes, as above. Possible mild bibasilar interstitial prominence. Correlate for interstitial edema or chronic intersti tial disease at the lung bases. Reviewed, dictated and finalized at location . RNATIONAL RELATIONS TEACHER Impression: Support tubes, as above. Possible mild bibasilar interstitial prominence. Correlate for interstitial kit ma or chronic interstitial disease at the lung bases.
--- NOTE | ~2022-08-27 | XR_ITS ---
EXAMINATION: XR chest 1V portable DATE: 09/01/2022 06:28 INDICATION: Respiratory failure. TECHNIQUE: A single frontal view of the chest was obtained. COMPARISON: Chest single view 08/31/2022, chest CT 08/27/2022 FINDINGS: There is a diffuse interstitial pattern in the lungs. There are mild airspace opacities in left lower lung zone. No pleural effusion or pneumothorax. The heart size is normal. A left internal jugular central venous catheter is seen with tip in the superior vena cava. The endotracheal tube tip is 2.3 cm above the maria esther. The nasogastric tube tip is beyond the inferior margin of the radiograph , but at least to the stomach. IMPRESSION: 1. Stable diffuse lung disease, consistent with pneumonia versus mild pulmonary edema. Reviewed, dictated and finalized at location A. ITORY ACCOUNT MANAGER
--- NOTE | ~2022-08-27 | US_ITS ---
Renal-Bladder ultrasound Clinical History: Renal insufficiency Technique: Real-time sonographic imaging of the kidneys and urinary bladder was performed. Findings: The right kidney measures 12.9 cm in length and the left kidney measures 12.3 cm. There is no hydronephrosis or renal calculus identified. Renal cortical echogenicity is within normal limits. No renal mass lesion is identified. The urinary bladder is collapsed around a Swift catheter.. Impression: Unremarkable ultrasound of the kidneys. Collapsed urinary bladder limits evaluation. Reviewed, dictated and finalized at location M. ING NANNY Impression: Unremarkable ultrasound of the kidneys. Collapsed urinary bladder limits evaluation.
--- NOTE | ~2022-08-27 | XR_ITS ---
EXAMINATION: XR abdomen NG/feed tube insert DATE: 09/05/2022 05:18 INDICATION: Orogastric tube placement. TECHNIQUE: A semiupright view of the abdomen was obtained. COMPARISON: None. FINDINGS: The lower abdomen is excluded. There are no dilated loops of bowel. The nasogastric tube ti p is in the distal stomach. Surgical clips in the right upper quadrant are likely from cholecystectom y. IMPRESSION: 1. Nasogastric tube tip in the distal stomach. Reviewed, dictated and finalized at location A. S AND OPERATIONS TRAINEE
--- NOTE | ~2022-08-27 | XR_ITS ---
XR chest 1V portable 08/30/2022 11:14 Indication: Hemodialysis. Procedure: AP portable chest Comparison: 08/30/2022 and 08/29/2022 Findings: Endotracheal tube tip 3.2 cm above the maria esther. Left IJ central venous catheter tip in the S VC. Distal aspect of the NG tube not visualized. Cardiomegaly with pulmonary edema. Layering right pl eural effusion. No pneumothorax. Impression: 1: Cardiomegaly with pulmonary edema. No significant interval change. Reviewed, dictated and finalized at location A. NISTRATIVE SERVICES COORDINATOR Impression: 1: Cardiomegaly with pulmonary edema. No significant interval change.
--- NOTE | ~2022-08-27 | CT_ITS ---
Clinical Indication: Sepsis CT Scan of the Chest, Abdomen, and Pelvis without Contrast: Technique: Contiguous sections were acquired throughout the chest, abdomen, and pelvis without oral o r IV contrast administration. Dose reduction technique was used on this scan by utilizing automated e xposure control and iterative reconstruction technique. The dose-length product (DLP) was 1823.70 mGy -cm. COMPARISON: 08/27/2022 Findings: Endotracheal tube and NG tube are present. There is no evidence of any significant mediastinal, hilar or axillary lymphadenopathy. The mediastin al soft tissues appear normal. No aortic aneurysm. There is no evidence of pleural or pericardial effusion. Possible mild emphysema. There is minimal bibasilar atelectatic change. No pulmonary consolidation or nodule seen otherwise. The liver, spleen, pancreas, adrenals and kidneys are within normal limits. Cholecystectomy clips are noted. No evidence of aortic aneurysm. No lymphadenopathy. No bowel obstruction or bowel wall thickening. There is no evidence to suggest acute appendicitis. Urinary bladder is collapsed. Swift catheter appears to be within the vagina rather than within the u rinary bladder. No adnexal mass evident. No ascites. Impression: No distinct etiology for sepsis identified. Swift catheter appears to be within the vagina rather than within the urinary bladder. Reassessment o f Swift catheter location recommended. Possible minimal effusion. Reviewed, dictated and finalized at location . ATURE MODEL MAKER Impression: No distinct etiology for sepsis identified. Swift catheter appears to be within the vagina rather than within the urinary b ladder. Reassessment of Swift catheter location recommended. Possible minimal effusion.
--- NOTE | ~2022-08-27 | US_ITS ---
EXAMINATION: US venous doppler UE DATE: 08/30/2022 09:59 INDICATION: History of jugular vein thrombosis. Needs new venous access. TECHNIQUE: Knox scale images with and without compression and Doppler images of the bilateral upper e xtremity veins were obtained. COMPARISON: None. FINDINGS: The bilateral internal jugular vein, subclavian vein, axillary vein, brachial veins, basilic vein, ce phalic vein, radial vein, and ulnar vein are patent. IMPRESSION: 1. Patent bilateral upper extremity veins. No evidence of deep venous thrombosis. Reviewed, dictated and finalized at location A. STED LIVING COORDINATOR IMPRESSION: 1. Patent bilateral upper extremity veins. No evidence of deep venous thrombosi s.
--- NOTE | ~2022-08-27 | XR_ITS ---
Portable chest x-ray Comparison: 08/27/2022 Clinical History: Intubation Findings: Endotracheal tube and NG tube are in satisfactory positions. There is extensive interstiti al disease in the lungs, unchanged. There is prominence of the central pulmonary vasculature, unchang ed. Cardiomediastinal silhouette is stable. Bones and soft tissues are unremarkable. Impression: Probable diffuse chronic interstitial disease. Correlate for interstitial edema. Enlarged central pulmonary vessels. Correlate for pulmonary artery hypertension. Support tubes, as above. Reviewed, dictated and finalized at location . ETRICS EXPERIMENTALIST Impression: Probable diffuse chronic interstitial disease. Correlate for interstitial edema . Enlarged central pulmonary vessels. Correlate for pulmonary artery hypertension . Support tubes, as above.
--- NOTE | ~2022-08-27 | XR_ITS ---
EXAMINATION: XR chest 1V portable DATE: 09/08/2022 05:30 INDICATION: Respiratory failure TECHNIQUE: frontal and lateral views of the chest were obtained. COMPARISON: Chest radiograph dated 09/07/2022 FINDINGS: Endotracheal tube tip 3.6 cm above the maria esther. Nasogastric tube extends below the left hemidiaphragm with distal tip collimated off the study. Left internal jugular central venous catheter with distal tip at the midsuperior vena cava. Opacities at the bilateral lower lung zones, unchanged on the right and slightly increased on the lef t where there is mild tenting of the diaphragm and blunting of the costophrenic angle suggesting a ne w small left pleural effusion. No pneumothorax. Heart size is normal. IMPRESSION: 1. Opacities in bilateral lower lung zones which could represent atelectasis and/or pneumonia. 2. Likely small left pleural effusion. Reviewed, dictated and finalized at location A. D SUPPORT INVESTIGATOR IMPRESSION: 1. Opacities in bilateral lower lung zones which could represent atelectasis an d/or pneumonia. 2. Likely small left pleural effusion.
--- NOTE | ~2022-08-27 | XR_ITS ---
Portable chest x-ray Comparison: 09/09/2022 at 5:41 AM Clinical History: Line placement Findings: Interval placement of right-sided central venous line, in satisfactory position. Endotrach eal tube, NG tube, and left-sided central venous line are unchanged. There is mild pulmonary edema pa ttern. No pneumothorax. Cardiomediastinal silhouette is stable. Bones and soft tissues are unremarka ble. Impression: Interval placement of right-sided central venous line, in satisfactory position. Additional support l shawna are unchanged. No pneumothorax. Mild bibasilar pulmonary edema/atelectasis. Reviewed, dictated and finalized at location M. TOR SERVICES INFORMATION ASSISTANT Impression: Interval placement of right-sided central venous line, in satisfactory position . Additional support lines are unchanged. No pneumothorax. Mild bibasilar pulmonary edema/atelectasis.
--- NOTE | ~2022-08-27 | XR_ITS ---
XR chest 1V portable DATE: 09/06/2022 05:56 INDICATION: Respiratory failure TECHNIQUE: Portable AP chest on 09/06/2022 at 0524 hours COMPARISON: 09/22/2022 portable AP chest at 0445 hours FINDINGS: Left internal jugular central venous catheter tip overlies superior vena cava. Normal heart size. ET and NG tubes have been removed since 09/05/2022. There is mild infiltrate or atelectasis at the lung bases. No pleural effusion or pulmonary vascular congestion or pneumothorax is detected. IMPRESSION: Removal of ET and NG tubes since 09/05/2022 Left internal jugular central venous catheter tip overlies superior vena cava Mild bibasilar infiltrate or atelectasis, mildly improved since 09/05/2022 Reviewed, dictated and finalized at location A. AGE ARCHITECT
--- NOTE | ~2022-08-27 | XR_ITS ---
EXAMINATION: XR fl guide central line place DATE: 09/08/2022 13:35 PACKAGING SUPERVISOR INDICATION: TUNNELED DIALYSIS CATH INSERTION . TECHNIQUE: 2 fluoroscopic images of the lower neck and mid chest were obtained during tunneled dialys is catheter insertion performed by the surgeon. I was not present in the operating room. Fluoroscopy exposure time was 33.8 seconds. Air Kerma 8.77 mGy. DAP [id number] mGym2. COMPARISON: None FINDINGS: There is a mild kink in the mid apex of the turn of the catheter in the lower neck, correlate with fu nction. The tip of the dialysis catheter likely terminates over the right atrium, although assessment is limited by rotation of the image. IMPRESSION: Fluoroscopic documentation of tunnel dialysis catheter insertion. Please refer to the operative note for complete procedural details. Rotation limited images, refer to follow-up radiographs for document ation of final tube position. Reviewed, dictated and finalized at location K. AGING SUPERVISOR IMPRESSION: Fluoroscopic documentation of tunnel dialysis catheter insertion. Please refer to the operative note for complete procedural details. Rotation limited images, refer to follow-up radiographs for documentation of final tube position.
--- NOTE | ~2022-08-27 | XR_ITS ---
EXAMINATION: XR chest ET placement, XR abdomen NG/feed tube insert DATE: 09/07/2022 05:44 INDICATION: Nasogastric tube and endotracheal tube placement TECHNIQUE: 1. AP view of the chest was obtained. 2. AP view of the abdomen was obtained. COMPARISON: Chest radiograph dated 09/06/2022 FINDINGS: CHEST: Endotracheal tube tip 3.8 cm above the maria esther. Large-bore dual-lumen left internal jugular central ve nous catheter with distal tip at the midsuperior vena cava. Increasing interstitial and mild airspace opacities in the bilateral lower lung zones. Possible very small right pleural effusion. No pneumothorax. The cardiomediastinal silhouette is normal. KUB: Nasogastric tube tip in proximal side port in the body the stomach. No dilated loops of bowel in the visualized upper abdomen. IMPRESSION: 1. Endotracheal tube and nasogastric tube in expected positions. 2. Interstitial and airspace opacity in the bilateral lower lung zones which could represent mild pul monary edema or pneumonia. 2. Possible very small right pleural effusion. Reviewed, dictated and finalized at location A. T HISTORY CLERK IMPRESSION: 1. Endotracheal tube and nasogastric tube in expected positions. 2. Interstitial and airspace opacity in the bilateral lower lung zones which co uld represent mild pulmonary edema or pneumonia. 2. Possible very small right pleural effusion.
--- NOTE | ~2022-08-27 | XR_ITS ---
EXAMINATION: XR chest 1V portable DATE: 09/04/2022 05:32 INDICATION: Respiratory failure. TECHNIQUE: A single frontal view of the chest was obtained. COMPARISON: Chest single view 09/03/2022, chest CT 08/27/2022 FINDINGS: There are airspace opacities in the lower lung zones. No pleural effusion or pneumothorax. The heart size is normal. The endotracheal tube tip is 2.5 cm above the maria esther. A left internal jugul ar central venous catheter is seen with tip in the superior vena cava. The nasogastric tube tip is be yond the inferior margin of the radiograph, but at least to the stomach. IMPRESSION: 1. Stable airspace opacities in the lower lung zones, consistent with atelectasis versus pneumonia. Reviewed, dictated and finalized at location A. DEVELOPER IMPRESSION: 1. Stable airspace opacities in the lower lung zones, consistent with atelectas is versus pneumonia.
--- NOTE | ~2022-08-27 | XR_ITS ---
XR chest 1V portable 08/31/2022 07:48 Indication: Respiratory failure Procedure: AP portable chest Comparison: 08/30/2022 and 08/29/2022 Findings: Endotracheal tube tip approximately 3 cm above the maria esther. Left IJ central venous catheter tip in the SVC. Slightly improved diffuse bilateral airspace disease, most likely edema. No significa nt effusion or pneumothorax. Impression: 1: Slightly improved diffuse bilateral airspace disease, most likely edema. Pneumonia less favored. Reviewed, dictated and finalized at location A. NDER PRESS OPERATOR HELPER Impression: 1: Slightly improved diffuse bilateral airspace disease, most likely edema. Pne umonia less favored.
--- NOTE | ~2022-08-27 | XR_ITS ---
EXAMINATION: XR chest 1V portable DATE: 09/03/2022 06:00 INDICATION: Respiratory failure. TECHNIQUE: A single frontal view of the chest was obtained. COMPARISON: Chest one view 09/02/2022, chest CT 08/27/2022 FINDINGS: There are mild airspace opacities in all right lung zones and left lower lung zone. There i s a small left pleural effusion. No pneumothorax. The heart size is normal. The endotracheal tube tip is 2.9 cm above the maria esther. A left internal jugular central venous catheter is seen with tip in the superior vena cava. The nasogastric tube tip is beyond the inferior margin of the radiograph, but at least to the stomach. IMPRESSION: 1. Stable airspace opacities in right lung and left lower lung zone, consistent with pneumonia. 2. Stable small left pleural effusion. Reviewed, dictated and finalized at location A. RCYCLE MAKER
--- NOTE | ~2022-08-27 | XR_ITS ---
Portable chest x-ray Comparison: 08/28/2022 Clinical History: Respiratory failure Findings: Endotracheal tube and NG tube are in satisfactory positions. There is extensive interstiti al disease and mild bibasilar haziness. Cardiomediastinal silhouette is stable. Prominent central pu lmonary arteries are again present. Bones and soft tissues are unremarkable. Impression: Extensive interstitial disease throughout the lungs again present. Correlate for interstitial edema, atypical infection, or chronic interstitial disease. Stable support tubes. Reviewed, dictated and finalized at location . EMATIC MACHINE OPERATOR Impression: Extensive interstitial disease throughout the lungs again present. Correlate fo r interstitial edema, atypical infection, or chronic interstitial disease. Stable support tubes.
--- NOTE | ~2022-08-27 | CT_ITS ---
EXAMINATION: CT brain wo con DATE: 09/06/2022 10:42 INDICATION: Dilated left pupil and facial droop TECHNIQUE: Computed tomography (CT) of the head was performed without intravenous contrast. Sagittal and coronal reconstructions were performed. The mA was adjusted according to patient size. Iterative reconstruction technique was employed. The dose-length product was 605.33 mGy-cm. COMPARISON: head CT dated 08/27/2022 FINDINGS: No acute intracranial hemorrhage, acute infarction or abnormal extra axial fluid collection. There is mild scattered white matter hypoattenuation consistent with chronic small vessel ischemic disease. Ventricles are normal and symmetric. No mass/mass effect. The orbits, paranasal sinuses and mastoid a ir cells are normal. IMPRESSION: 1. No acute intracranial process. 2. Mild scattered white matter hypoattenuation consistent with chronic small vessel ischemic disease. Reviewed, dictated and finalized at location A. FIXER IMPRESSION: 1. No acute intracranial process. 2. Mild scattered white matter hypoattenuation consistent with chronic small ve ssel ischemic disease.
--- NOTE | ~2022-08-27 | XR_ITS ---
EXAMINATION: XR chest 1V portable Exam Date/Time: 08/27/2022 19:15 WINDOW REPAIRER HISTORY: RESPIRATORY DISTRESS Comparison: Same date at 10:38 AM. RESULT: Lines, tubes, and devices: Endotracheal tube remains in stable and good position. NG tube is partial ly out of the [id number], tip and side port terminating in the gastric fundus. Lungs and pleura: Unchanged pulmonary opacities. Cardiomediastinal silhouette: Stable. Other: No acute osseous or upper abdominal finding. IMPRESSION: Endotracheal and nasogastric tubes, in good position. Stable interstitial opacities. Reviewed, dictated and finalized at location K. OW REPAIRER IMPRESSION: Endotracheal and nasogastric tubes, in good position. Stable interstitial opaci ties.
--- NOTE | ~2022-08-27 | XR_ITS ---
EXAM: XR abdomen NG/feed tube insert DATE: 08/27/2022 19:26 HISTORY: ng tube placement . COMPARISON: 12/10/2006. FINDINGS: Stable interstitial opacities. NG tube tip and side port in the stomach. Cholecystectomy c lips. No acute upper abdominal finding. IMPRESSION: NG tube, in good position. Reviewed, dictated and finalized at location K. ENT CARE SPECIALIST IMPRESSION: NG tube, in good position.
[2022-08-27] MEDS: FENTANYL 2,500MCG/NS250ML(*CRX 2,500 MCG/250 ML BAG IV CONT (19:00)
[2022-08-27] MEDS: MIDAZOLAM 100MG/NS 100ML(*CRX) 100 MG/100 ML BAG 10 MG IV CONT (19:00)
--- NOTE | 2022-08-27 19:08 | ADMGEN ---
This patient, Cony Shin, was admitted to Intensive Care Unit-6. Patient/family oriented to hospital policies and general routines including ID bracelet, bed and alarms, visiting hours, pain management, procedures, bathroom and other care routines, personal items, smoking policy, room service/diet, and visiting hours. Information on how to activate the Rapid Response Team has been discussed. Patient/Family are encouraged to report perceived risks to care and to ask questions if they do not understand what they are told or what they should do.
--- NOTE | 2022-08-27 19:14 | PC.NURSE ---
Patient presented with versed drip running at 15 mg/hr. Informed Dr Welch and obtained orders to lower rate of versed to 10 mg/hr and add fentanyl drip. Admitting orders obtained.
[2022-08-27 19:34] LABS: Alveolar/Arterial O2 Gradient 263.7 mmHg; Base Excess ABG 16.2 mEq/l (+/-2.0); Fractional Inspired Oxygen 60 %; Modified Allen's Test Pass; Oxygen Content ABG 17.6 %vol (16.0-22.0); Oxygen Saturation ABG 95.1 % (95.0-100.0); Oxyhemoglobin 94.6 % THb (90.0-100.0); PCO2 ABG 76.6 mmHg (35.0-45.0); PO2 ABG 79.8 mmHg (80.0-100.0); PO2 FiO2 Ratio Arterial Blood 1.33 %; Site Drawn RIGHT RADIAL; Total Hemoglobin 13.2 g/dL (12.0-18.0); pH ABG 7.387 (7.350-7.450)
[2022-08-27 19:35] LABS: Arterial Blood Gas PEEP 10 cmH2O; Arterial Blood Gas Tidal Volume 500 ml; Arterial Blood Gas Vent Mode CMV; Arterial Blood Gas Ventilator rate 18 /MIN; Device VENTILATOR
[2022-08-27 19:41] LABS: Hematocrit 41.2 % (37.0-47.0); Hemoglobin 12.3 g/dL (12.0-15.0); Mean Corpuscular HGB Conc 29.9 g/dl (32-36); Mean Corpuscular Hemoglobin 28.1 pg (26-34); Mean Corpuscular Volume 94.3 fl (80-100); Mean Platelet Volume 9.2 fl (7.4-10.4); Platelet Count Result 287 k/mm3 (150-375); Red Blood Count 4.37 M/mm3 (4.2-5.4); Red Cell Distribution Width 13.3 % (11.5-14.5); White Blood Count 26.7 K/mm3 (4.5-10.0)
[2022-08-27 20:02] LABS: Blood Urea Nitrogen 34 mg/dL (7-17); Calcium 9.5 mg/dL (8.4-10.2); Carbon Dioxide > 40 mmol/L (22-30); Chloride 87 mmol/L (98-107); Estimated CRCL calculation 51 ml/min; Estimated Glomerular Filt Rate 45; Glucose 189 mg/dL (65-110); Magnesium 2.9 mg/dL (1.6-2.3); Potassium 4.4 mmol/L (3.4-5.0); Sodium 132 mmol/L (137-145)
[2022-08-27] MEDS: FUROSEMIDE INJ 40 MG/4 ML VIAL IV PUSH (21:16)
[2022-08-27] MEDS: MINERAL OIL/WHITE PETROLATUM OINTMENT 1 APPLIC EACH EYE (21:16)
[2022-08-27] MEDS: MIDAZOLAM 100MG/NS 100ML(*CRX) 100 MG/100 ML BAG 7 MG IV CONT (22:56)
--- NOTE | 2022-08-27 23:55 | PM.IMHP ---
H&P: HPI History of Present Illness Date/Time: 08/27/22 23:55 Chief Complaint: Acute on chronic respiratory failure. Narrative: This is a 62-year-old female with chronic obstructive pulmonary disease, chronic respiratory failure with hypoxia and hypercarbia, coronary artery disease, congestive heart failure, and history of stroke who is being directly admitted [place] the [place] [facility] and evaluation of acute on chronic respiratory failure. She is intubated on mechanical ventilation at the time my evaluation and is unable to provide history and as such majority of the following is obtained via a review of her electronic medical records. She presented to the ER this morning via EMS for evaluation of hypoxia and altered mental status. Family reported to the ED physician that the patient decided to take her home oxygen off a couple of days before presentation and her oxygen levels had been dropping into the 50s. She had become increasingly confused and they called 911 this morning. On EMS arrival her SpO2 was reportedly 60% on room air and she received an albuterol nebulizer, Solu-Medrol, and magnesium sulfate in route to the hospital. Upon arrival she was placed on a non-rebreather and then Venturi mask 55% with improvement in her saturations. She was reportedly more responsive but remained confused in the ER. Initial ABG showed a pH of 7.24, pCO2 63, and a bicarb of 42. She was placed on BiPAP with a repeat blood gas showing a pH of 7.18 and pCO2 of 88. She was subsequently intubated and ED physician reports that thick, purulent green material was noted in the airway while intubating and that was sent for culture. There was no mention of recent URI symptoms or sick contacts. She was given a dose of Lasix and started on broad-spectrum antibiotics and transferred to [place] ICU for further care. Workup in the ED: Brain CT was unremarkable. Chest x-ray showed moderate pulmonary edema. Chest CT showed small effusions, tree-in-bud opacities, and nodular density at the right upper lobe, and hilar lymphadenopathy. She was negative for COVID, influenza, and RSV. CRP was markedly elevated at greater than 25, proBNP was 1073. Hemoglobin 12.9, hematocrit 45.1, WBC 27.6 with left shift, platelets 275. Sodium 135, potassium 4.3, chloride 94, BUN 21, creatinine 0.93. LFTs normal. DNI 28.7. UA showed 31 to 50 WBC, 1+ leukocyte esterase, 3+ bacteria. Blood, urine, sputum cultures pending. Review of Systems Review of Systems: Unable to be obtained given current condition. [facility] Past Medical History Medical History Cerebrovascular accident Chronic anticoagulation Chronic obstructive pulmonary disease Chronic respiratory failure with hypoxia and hypercapnia Congestive heart failure Gastroesophageal reflux disease Jugular vein thrombosis Surgical History Surgical History (Updated 08/29/22 @ 00:40 by Marielena Alvarez PA-C) Surgical history unknown Family History Family History Father Hypertension Acute myocardial infarction Sibling Hypertension Mother Family history of heart disease in male family member before age 55 Brother Acute myocardial infarction Father Acute myocardial infarction Other Cerebrovascular accident Family history of cardiovascular disease Social History Social History Smoking packs per day: 1 Smoking cigarettes per day: 20.0 Smoking status: Unknown if ever smoked Tobacco type: cigarettes Second hand tobacco smoke exposure: Yes Alcohol intake: unknown Substance use: unknown Spiritual care concerns: No Meds Home Medications and Allergies Home Medications Medication Instructions Recorded Confirmed Type amitriptyline 10 mg tablet 10 mg PO HS 09/07/21
[2022-08-28] VITALS (38 sets, daily range): BP systolic 101–129; BP diastolic 61–75; PULSE 62–96; RESP 18–25; TEMP 37–37.7; O2SAT 94–99; BMI 39.3
--- NOTE | 2022-08-28 | ECHO_ITS ---
Patient Info Name: Cony Shin Age: 62 years : 1960 Gender: Female Ht: 65 in Wt: 236 lbs BSA: 2.27 m2 Heart Rhythm: Sinus Rhythm Exam Date: 08/28/2022 10:26 AM Exam Location: [facility] Pulmonary Patient Status: Inpatient Admit Date: 08/27/2022 Staff Ordering Physician: Brian Welch MD Attending Provider: Khai Jha MD Exam Type: CA echo doppler color flow Summary 1. Left ventricular chamber dimension is normal. 2. Left ventricular systolic function is normal, estimated at 60-65%. 3. The left ventricular diastolic function is grade I diastolic dysfunction. 4. Right ventricular chamber dimension is moderately enlarged. 5. Right ventricular systolic function is normal. 6. There is moderate tricuspid valve regurgitation, which may be underestimated due to the eccentricity of the jet. 7. Dilated inferior vena cava with no collapse upon inspiration consistent with elevated right atrial pressure, 15 mmHg. 8. Pulmonary hypertension with an estimated PASP of 59mmHg. Left Ventricle Left ventricular chamber dimension is normal. Left ventricular systolic function is normal, estimated at 60-65%. There is no increased left ventricular wall thickness. The left ventricular diastolic function is grade I diastolic dysfunction. Right Ventricle Right ventricular chamber dimension is moderately enlarged. Right ventricular systolic function is normal. Left Atria Left atrial chamber dimension is normal. Right Atria Right atrial chamber dimension is normal. Atrial Septum Intact interatrial septum visualized by color flow imaging. Aortic Valve The aortic valve is not well visualized. There is no aortic valve stenosis. There is no aortic valve regurgitation. There is moderate aortic valve calcification. Pulmonic Valve The pulmonic valve is not well visualized. Mitral Valve The mitral valve has thickened leaflets. There is trace mitral valve regurgitation. Tricuspid Valve There is moderate tricuspid valve regurgitation, which may be underestimated due to the eccentricity of the jet. Pericardium/Pleural There is trivial pericardial effusion. Inferior Vena Cava Dilated inferior vena cava with no collapse upon inspiration consistent with elevated right atrial pressure, 15 mmHg. Aorta The aortic root size at the sinus of Valsalva is normal. Left Ventricular Outflow Tract Name Value Normal LVOT 2D LVOT Diameter 2.0 cm LVOT Doppler LVOT Peak Gradient 11 mmHg LVOT Mean Gradient 5 mmHg LVOT VTI 28 cm LVOT VTI/AV VTI Ratio 1.1 LVOT Stroke Volume 91 ml LVOT CO 19.2 l/min LVOT CI 8.5 l/min/m2 Pulmonic Valve Name Value Normal PV Doppler PV Peak Gradient
[2022-08-28 00:22] LABS: Glucose Point of Care 167 mg/dl (65-105)
[2022-08-28] MEDS: cefTRIAXone 2 GM in SODIUM CHLORIDE 0.9% IV 100 ML 200 ML IVPB ×2 (02:43→22:05)
[2022-08-28 05:11] LABS: Alveolar/Arterial O2 Gradient 167.8 mmHg; Base Excess ABG 15.8 mEq/l (+/-2.0); Fractional Inspired Oxygen 45 %; HCO3 ABG 45.1 mEq/l (22.0-26.0); Oxygen Content ABG 21.4 %vol (16.0-22.0); Oxygen Saturation ABG 93.5 % (95.0-100.0); Oxyhemoglobin 92.8 % THb (90.0-100.0); PO2 ABG 70.1 mmHg (80.0-100.0); PO2 FiO2 Ratio Arterial Blood 1.56 %; Total Hemoglobin 16.4 g/dL (12.0-18.0); pH ABG 7.409 (7.350-7.450)
[2022-08-28 05:13] LABS: Device VENTILATOR; Modified Allen's Test Unable to perform; PCO2 ABG 72.9 mmHg (35.0-45.0); Site Drawn RIGHT RADIAL
[2022-08-28 05:14] LABS: Arterial Blood Gas PEEP 10 cmH2O; Arterial Blood Gas Tidal Volume 500 ml; Arterial Blood Gas Vent Mode CMV; Arterial Blood Gas Ventilator rate 18 /MIN
[2022-08-28 05:19] LABS: Hemoglobin A1C 5.7 % (<5.7)
[2022-08-28 05:26] LABS: INR 1.1; Prothrombin Time 13.8 Seconds (11.1-14.7)
[2022-08-28 05:27] LABS: Partial Thromboplastin Time 42.4 SECONDS (22.3-36.8)
[2022-08-28 06:42] LABS: Glucose Point of Care 152 mg/dl (65-105)
[2022-08-28 07:50] LABS: Hematocrit 37.8 % (37.0-47.0); Hemoglobin 11.5 g/dL (12.0-15.0); Mean Corpuscular HGB Conc 30.4 g/dl (32-36); Mean Corpuscular Hemoglobin 28.2 pg (26-34); Mean Corpuscular Volume 92.6 fl (80-100); Mean Platelet Volume 9.5 fl (7.4-10.4); Platelet Count Result 298 k/mm3 (150-375); Red Blood Count 4.08 M/mm3 (4.2-5.4); Red Cell Distribution Width 13.7 % (11.5-14.5); White Blood Count 27.1 K/mm3 (4.5-10.0)
[2022-08-28 08:01] LABS: Alanine Aminotransferase 16 U/L (6-35); Albumin Level 3.4 g/dL (3.5-5.1); Alkaline Phosphatase 134 U/L (38-126); Aspartate Amino Transferase 16 U/L (14-36); Bilirubin,Total 0.2 mg/dL (0.2-1.3); Blood Urea Nitrogen 50 mg/dL (7-17); Calcium 9.3 mg/dL (8.4-10.2); Carbon Dioxide > 40 mmol/L (22-30); Chloride 89 mmol/L (98-107); Estimated CRCL calculation 27 ml/min; Estimated Glomerular Filt Rate 21; Glucose 135 mg/dL (65-110); Potassium 4.2 mmol/L (3.4-5.0); Sodium 135 mmol/L (137-145)
[2022-08-28] MEDS: ALBUTEROL SULFATE NEB 2.5 MG/3 ML INH INHALATION ×3 (08:27→19:44)
[2022-08-28] MEDS: IPRATROPIUM BR 0.02% INH SOLN 0.5 MG/2.5 ML VIAL INHALATION ×3 (08:27→19:44)
[2022-08-28 08:36] LABS: Creatine Kinase 38 U/L (30-135)
[2022-08-28] MEDS: SODIUM CHLORIDE 0.9% IV 500 ML IV CONT (08:43)
[2022-08-28] MEDS: MINERAL OIL/WHITE PETROLATUM OINTMENT 1 APPLIC EACH EYE ×2 (08:44→22:06)
[2022-08-28] MEDS: methylPREDNISolone SOD SUCC 125 MG VIAL 60 MG IV PUSH (08:44)
[2022-08-28] MEDS: ALBUMIN HUMAN 25% 25 GM/100 ML 100 ML IVPB ×2 (08:52→12:05)
[2022-08-28] MEDS: SODIUM CHLORIDE 0.9% IV 1,000 ML 100 ML IV CONT (08:52)
[2022-08-28] MEDS: APIXABAN 2.5 MG TABLET FEED TUBE ×2 (09:20→22:06)
[2022-08-28] MEDS: PERFLUTREN LIPID MICROSPHERES 1.5 ML VIAL DILUTED TO 10 ML TOTAL VOLUME IV PUSH (11:05)
--- NOTE | 2022-08-28 11:10 | WPDCNINT ---
Assessment and Plan Assessment and plan (1) Acute on chronic respiratory failure with hypoxia and hypercapnia: Code(s): J96.21 - Acute and chronic respiratory failure with hypoxia; J96.22 - Acute and chronic respiratory failure with hypercapnia Status: Acute Assessment and Plan: Multifactorial acute on chronic respiratory failure with hypoxia and hypercarbia secondary to COPD, obesity hypoventilation syndrome, CHF and community-acquired pneumonia CT chest 1. Tree-in-bud opacities as can be seen with atypical infection (including but not limited to: MAC, TB, fungal), ABPA, airways disease, and less likely aspiration. 2. Nodular opacity in right upper lobe should be followed after the appropriate therapy and cessation of symptoms to ensure resolution. 3. Mediastinal lymphadenopathy. 4. Trace bilateral pleural effusions. 5. Mild interstitial edema Patient was given Lasix in ER and on presentation but hold further Lasix due to elevation in creatinine Solu-Medrol and bronchodilators Blood and sputum culture Empiric vancomycin Rocephin and azithromycin Chest x-ray ABG reviewed Ventilator settings reviewed-decrease PEEP to 8, increase rate to 20, decrease tidal volume to 450 Influenza RSV and COVID negative Urine Legionella and pneumococcal antigen pending Mycoplasma IgM pending (2) Chronic obstructive pulmonary disease: Code(s): J44.9 - Chronic obstructive pulmonary disease, unspecified Status: Acute Assessment and Plan: See above (3) Congestive heart failure: Code(s): I50.9 - Heart failure, unspecified Status: Acute Assessment and Plan: Hold Lasix due to creatinine elevation Check echocardiogram (4) Acute kidney injury: Code(s): N17.9 - Acute kidney failure, unspecified Status: Acute Assessment and Plan: Patient presented with normal creatinine but was given Lasix in ER and on presentation due to congestive heart failure Creatinine today is 2.3 Hold further diuretics Will give cautious amount of IV fluids Check urine sodium and creatinine Check CK Check renal ultrasound (5) Urinary tract infection: Code(s): N39.0 - Urinary tract infection, site not specified Status: Acute Assessment and Plan: UA suggestive of UTI. She has history of UTI with E coli which was not ESBL Currently on Rocephin Urine culture pending (6) Chronic anticoagulation: Code(s): Z79.01 - salvage determiner (current) use of anticoagulants Status: Acute Assessment and Plan: Patient on Eliquis and she has history of jugular venous thrombosis. Anticoagulation will be continued (7) GERD (gastroesophageal reflux disease): Code(s): K21.9 - Gastro-esophageal reflux disease without esophagitis Status: Acute Assessment and Plan: Continue PPI Plan DVT prophylaxis -Eliquis Stress ulcer prophylaxis -PPI Nutrition -start Tube Feeds Code Status - Full Code Total Critical Care Time - 35 minutes Due to a high probability of clinically significant, life threatening deterioration, the patient required my highest level of preparedness to intervene emergently and I personally spent this critical care time directly and personally managing the patient. This critical care time included obtaining a history; examining the patient; pulse oximetry; ordering and review of studies; arranging urgent treatment with development of a management plan; evaluation of patient's response to treatment; frequent reassessment; and discussions with other providers. It was exclusive of separately billable procedures and treating other patients and teaching time. Please see Assessment and Plan section and the rest of the note for further information on patient assessment and treatment Advertising Dispatch Clerk Consult Note Consult date: 08/28/22 Reason for consult: Acute respiratory failure HPI: Cony Shin is a 62 year old female with chronic obstructive pulmonary disease, chronic respirat
[2022-08-28 11:46] LABS: Glucose Point of Care 145 mg/dl (65-105)
[2022-08-28 16:36] LABS: Creatinine Urine 175.5 mg/dL
[2022-08-28 16:44] LABS: Sodium Urine Random 16 meq/L
--- NOTE | 2022-08-28 16:58 | PM.IMPN ---
Progress Note: A&P Assessment and Plan (1) Acute on chronic respiratory failure with hypoxia and hypercapnia: Code(s): J96.21 - Acute and chronic respiratory failure with hypoxia; J96.22 - Acute and chronic respiratory failure with hypercapnia Status: Acute Assessment and Plan: Patient reportedly stopped wearing her home O2 a couple of days ago for unclear reasons. She has gotten progressively hypoxic and confused since that time. She was started on BiPAP on arrival to the ER however her pH and pCO2 did not improve and in fact worsened and she was subsequently intubated. Currently on a tidal volume of 500 with a PEEP of 10, rate of 20, and an FiO2 of 60%. Repeat blood gas has significantly improved with an ABG of 7.387, pCO2 76.6, bicarb 45.0. Dr. Welch has been consulted and his input is greatly appreciated. 08/28/2021 interval history: patient intubated unable to provide any history or review of symptom discussed with the laborer beam house suspect most likely secondary to pneumonia possibly atypical pneumonia with MAC, TB or fungal, patient empirically treated with vancomycin, ceftriaxone and azithromycin, diuresed, bronchodilator and Solu-Medrol, appreciate intensive will continue to monitor. (2) Chronic obstructive pulmonary disease: Code(s): J44.9 - Chronic obstructive pulmonary disease, unspecified Status: Acute Assessment and Plan: No significant wheezing noted on exam today. Continue scheduled bronchodilators. Hold on steroids. (3) Pneumonia: Code(s): J18.9 - Pneumonia, unspecified organism Status: Acute Assessment and Plan: She has been afebrile though pneumonia suspected with leukocytosis with left shift, markedly elevated CRP, and reports of thick and green secretions noted in the airway upon intubation. Sputum culture pending. Urinary antigens ordered. Continue broad-spectrum antibiotics. (4) Congestive heart failure: Code(s): I50.9 - Heart failure, unspecified Status: Acute Assessment and Plan: Patient was given furosemide 40 milligrams for pulmonary edema noted on chest x-ray at outside facility. No significant swelling noted on exam today. Continue to monitor volume status with close monitoring of I/O and daily weights. (5) Chronic anticoagulation: Code(s): Z79.01 - level designer (current) use of anticoagulants Status: Acute Assessment and Plan: Continue Eliquis. (6) Gastroesophageal reflux disease: Code(s): K21.9 - Gastro-esophageal reflux disease without esophagitis Status: Acute Assessment and Plan: IV Protonix while NPO. (7) Hyperglycemia: Code(s): R73.9 - Hyperglycemia, unspecified Status: Acute Assessment and Plan: Check fasting glucose and hemoglobin A1c. Initiate sliding scale insulin, Accu-Cheks, and hypoglycemic protocol. (8) Encephalopathy: Code(s): G93.40 - Encephalopathy, unspecified Status: Acute Assessment and Plan: Likely due to a combination of hypoxia, hypercarbia, and infection. Brain CT showed no acute findings. Subjective Date/time seen: 08/28/22 16:58 Acute on chronic respiratory failure. HPI- Narrative: This is a 62-year-old female with chronic obstructive pulmonary disease, chronic respiratory failure with hypoxia and hypercarbia, coronary artery disease, congestive heart failure, and history of stroke who is being directly admitted to the ICU from the emergency department at [facility] for further treatment and evaluation of acute on chronic respiratory failure. She is intubated on mechanical ventilation at the time my evaluation and is unable to provide history and as such majority of the following is obtained via a review of her electronic medical records. She presented to the ER this morning via EMS for evaluation of hypoxia and altered mental status. Family reported to the ED physician that the patient decid
[2022-08-28 18:08] LABS: Glucose Point of Care 192 mg/dl (65-105)
[2022-08-28 18:46] LABS: Magnesium 2.9 mg/dL (1.6-2.3)
[2022-08-28] MEDS: MIDAZOLAM 100MG/NS 100ML(*CRX) 100 MG/100 ML BAG IV CONT (22:03)
[2022-08-29] VITALS (74 sets, daily range): BP systolic 104–121; BP diastolic 53–65; PULSE 58–80; RESP 14–32; TEMP 36.7–37.2; O2SAT 90–100
[2022-08-29 00:27] LABS: Glucose Point of Care 192 mg/dl (65-105)
[2022-08-29] MEDS: IPRATROPIUM BR 0.02% INH SOLN 0.5 MG/2.5 ML VIAL INHALATION ×4 (02:36→20:24)
[2022-08-29] MEDS: ALBUTEROL SULFATE NEB 2.5 MG/3 ML INH INHALATION ×4 (02:36→20:23)
[2022-08-29 04:56] LABS: Alveolar/Arterial O2 Gradient 155.9 mmHg; Base Excess ABG 14.5 mEq/l (+/-2.0); Fractional Inspired Oxygen 45 %; HCO3 ABG 43.9 mEq/l (22.0-26.0); Oxygen Content ABG 18.3 %vol (16.0-22.0); Oxygen Saturation ABG 93.8 % (95.0-100.0); Oxyhemoglobin 93.7 % THb (90.0-100.0); PO2 ABG 74.8 mmHg (80.0-100.0); PO2 FiO2 Ratio Arterial Blood 1.66 %; Total Hemoglobin 13.9 g/dL (12.0-18.0); pH ABG 7.361 (7.350-7.450)
[2022-08-29 04:57] LABS: Arterial Blood Gas Vent Mode CMV; Arterial Blood Gas Ventilator rate 20 /MIN; Device VENTILATOR; Modified Allen's Test Pass; PCO2 ABG 79.3 mmHg (35.0-45.0); Site Drawn RIGHT RADIAL
[2022-08-29 04:58] LABS: Arterial Blood Gas PEEP 8 cmH2O; Arterial Blood Gas Tidal Volume 450 ml
[2022-08-29 06:05] LABS: Glucose Point of Care 107 mg/dl (65-105)
[2022-08-29 06:32] LABS: Hematocrit 35.6 % (37.0-47.0); Hemoglobin 10.7 g/dL (12.0-15.0); Mean Corpuscular HGB Conc 30.1 g/dl (32-36); Mean Corpuscular Hemoglobin 28.5 pg (26-34); Mean Corpuscular Volume 94.9 fl (80-100); Mean Platelet Volume 9.4 fl (7.4-10.4); Platelet Count Result 267 k/mm3 (150-375); Red Blood Count 3.75 M/mm3 (4.2-5.4); Red Cell Distribution Width 14.3 % (11.5-14.5); White Blood Count 21.2 K/mm3 (4.5-10.0)
[2022-08-29 06:40] LABS: Anion Gap 7 mmol/L (8-16); Blood Urea Nitrogen 77 mg/dL (7-17); Calcium 9.3 mg/dL (8.4-10.2); Carbon Dioxide 39 mmol/L (22-30); Chloride 90 mmol/L (98-107); Estimated CRCL calculation 16 ml/min; Estimated Glomerular Filt Rate 11; Glucose 110 mg/dL (65-110); Sodium 136 mmol/L (137-145)
[2022-08-29] MEDS: FENTANYL 2,500MCG/NS250ML(*CRX 2,500 MCG/250 ML BAG 7.5 MCG IV CONT (08:38)
[2022-08-29] MEDS: MINERAL OIL/WHITE PETROLATUM OINTMENT 1 APPLIC EACH EYE ×2 (08:40→20:23)
[2022-08-29] MEDS: methylPREDNISolone SOD SUCC 125 MG VIAL 60 MG IV PUSH (08:40)
[2022-08-29] MEDS: APIXABAN 2.5 MG TABLET FEED TUBE (08:40)
[2022-08-29] MEDS: SODIUM CHLORIDE 0.9% IV 500 ML IV CONT (09:42)
[2022-08-29] MEDS: SODIUM CHLORIDE 0.9% IV 1,000 ML 100 ML IV CONT ×2 (09:43→20:34)
--- NOTE | 2022-08-29 10:11 | WPDINTPN ---
Progress Note: A&P Assessment and Plan (1) Acute on chronic respiratory failure with hypoxia and hypercapnia: Code(s): J96.21 - Acute and chronic respiratory failure with hypoxia; J96.22 - Acute and chronic respiratory failure with hypercapnia Status: Acute Assessment and Plan: Multifactorial acute on chronic respiratory failure with hypoxia and hypercarbia secondary to COPD, obesity hypoventilation syndrome, CHF and community-acquired pneumonia CT chest 1. Tree-in-bud opacities as can be seen with atypical infection (including but not limited to: MAC, TB, fungal), ABPA, airways disease, and less likely aspiration. 2. Nodular opacity in right upper lobe should be followed after the appropriate therapy and cessation of symptoms to ensure resolution. 3. Mediastinal lymphadenopathy. 4. Trace bilateral pleural effusions. 5. Mild interstitial edema Patient was given Lasix in ER and on presentation but hold further Lasix due to elevation in creatinine Continue Solu-Medrol and bronchodilators Blood and sputum culture Empiric vancomycin Rocephin and azithromycin Chest x-ray ABG reviewed Ventilator settings reviewed-continue current to vent settings Influenza RSV and COVID negative Urine Legionella and pneumococcal antigen pending Mycoplasma IgM pending (2) Chronic obstructive pulmonary disease: Code(s): J44.9 - Chronic obstructive pulmonary disease, unspecified Status: Acute Assessment and Plan: See above (3) Congestive heart failure: Code(s): I50.9 - Heart failure, unspecified Status: Acute Assessment and Plan: Hold Lasix due to creatinine elevation Echocardiogram ?1. Left ventricular chamber dimension is normal. ? 2. Left ventricular systolic function is normal, estimated at 60-65%. ? 3. The left ventricular diastolic function is grade I diastolic dysfunction. ? 4. Right ventricular chamber dimension is moderately enlarged. ? 5. Right ventricular systolic function is normal. ? 6. There is moderate tricuspid valve regurgitation, which may be underestimated due to the eccentricity of the jet. ? 7. Dilated inferior vena cava with no collapse upon inspiration consistent with elevated right atrial pressure, 15 mmHg. ? 8. Pulmonary hypertension with an estimated PASP of 59mmHg. (4) Acute kidney injury: Code(s): N17.9 - Acute kidney failure, unspecified Status: Acute Assessment and Plan: Patient presented with normal creatinine but was given Lasix in ER and on presentation due to congestive heart failure Creatinine continues to increase and is 4.1 today point Continue to hold diuretics Urine electrolytes suggest prerenal. Although echo shows dilated IVC with increased right atrial pressure, I will give additional IV fluids today and see if creatinine improves Normal CK Unremarkable renal ultrasound Monitor urine output electrolytes and creatinine (5) Urinary tract infection: Code(s): N39.0 - Urinary tract infection, site not specified Status: Acute Assessment and Plan: UA suggestive of UTI. She has history of UTI with E coli which was not ESBL Currently on Rocephin Urine culture pending (6) Chronic anticoagulation: Code(s): Z79.01 - [facility] (current) use of anticoagulants Status: Acute Assessment and Plan: Patient on Eliquis and she has history of jugular venous thrombosis. Anticoagulation will be continued (7) GERD (gastroesophageal reflux disease): Code(s): K21.9 - Gastro-esophageal reflux disease without esophagitis Status: Acute Assessment and Plan: Continue PPI Plan DVT prophylaxis -Eliquis Stress ulcer prophylaxis -PPI Nutrition -start Tube Feeds Code Status - Full Code I spoke to and updated patient's son Juancarlos by phone and discussed in detail patient's current condition including respiratory failure, COPD, CHF, possible pneumonia, acute renal failure and potential of needing dialysis in future. I ex
[2022-08-29] MEDS: METOCLOPRAMIDE HCL 10 MG TABLET FEED TUBE ×2 (11:37→17:24)
--- NOTE | 2022-08-29 11:40 | PCNFU ---
Nutrition Follow-Up Complete: Inadequate Oral Intake as related to mechanical ventilation as evidence by NPO. Goal: Meet estimated nutritional needs Patient is progressing towards goal. We will continue current goal. Pt current nutrition is Vital AF 1.2 at 20 ml/hr. Last recorded weight is 110.2 kg. Bowel Motility:No Bm reported. Labs Reviewed:Cr 4.10,GFR 11, BUN 77, Na 136, Hct 35.6 Meds Noted:Reglan, Versed, Fentanyl, Atrovent,NS Skin: WNL Additional Notes: Patient remains on mechanical vent. Spoke with nursing today, elevated residuals reported. Tube feedings at 20 ml/hr at this time. Reglan started. Goal rate of Vital AF 1.2 at 50 ml/hr will provide 1320 kcals/82 gms protein/892 ml water. Flush 30 ml q 4 hours. Agree with diet orders. Will monitor daily in ICU rounds and reassess every Thursday and Thursday.
[2022-08-29 11:46] LABS: Glucose Point of Care 146 mg/dl (65-105)
--- NOTE | 2022-08-29 11:48 | PM.CNNEP ---
Assessment and Plan Assessment and plan (1) Acute kidney injury: Code(s): N17.9 - Acute kidney failure, unspecified Status: Acute Assessment and Plan: etiology?? (normal renal function on admission) due to overdiuresis? diuretics on hold due to rising creatiine evaluaton to date urine electrolytes prerenal' normal CPK renal ultrasound unremarkable despite signs of volume overload, possible intravascular volume depletion (?) reasonable to give trial of IVFs follow trend of repeat labs and urine (2) Acute on chronic respiratory failure with hypoxia and hypercapnia: Code(s): J96.21 - Acute and chronic respiratory failure with hypoxia; J96.22 - Acute and chronic respiratory failure with hypercapnia Status: Acute Assessment and Plan: multifactorial etiology: COPD DOMINIC CHF pneumonia s/p IV lasix on steroids and bronchodilators follow culture datea broad spectrum antibiotic therapy continue ventilator support (3) Congestive heart failure: Code(s): I50.9 - Heart failure, unspecified Status: Acute Assessment and Plan: as noted by testing on admission s/p IV diuresis Echo with diastolic heart failure and pulmonary HTN follow volume status (4) Pneumonia: Code(s): J18.9 - Pneumonia, unspecified organism Status: Acute Assessment and Plan: suspected with elevated WBC and productive sputm/secretions prior to intubation follow-up on urinary antigens and sputum/blood sultures see #2 on antibiotics (5) COPD (chronic obstructive pulmonary disease): Code(s): J44.9 - Chronic obstructive pulmonary disease, unspecified Status: Chronic Assessment and Plan: see #2 continue current therapy (6) Urinary tract infection: Code(s): N39.0 - Urinary tract infection, site not specified Status: Acute Assessment and Plan: urinalysis highly suggestive follow-up on urine culture Will continue to follow. History of Present Illness Reason for Consult Consult date: 08/29/22 Reason for consult: acute renal failure Chief Complaint Chief complaint: Acute Resp Failure History of Present Illness Narrative: All the information I have obtained is from review of the electronic medical record and discussion with the physician/ nurses involved in the patient's care issues currently intubated and on mechanical ventilation And unable to provide any history. The patient is a 62-year-old female with a past medical history as outlined below who presented as a direct admission to the ICU from [facility] emergency room for further evaluation and treatment of acute on chronic respiratory failure. Apparently, she presented to the emergency room at [facility] via EMS on the day of admission with hypoxia and altered mental status. Family reports that the patient decided to stop taking her home oxygen a few days prior to presentation for unclear reasons. By report, her oxygen levels have been dropping into the 50 percentile range when she did this. This was complicated by the fact that she started becoming increasingly confused and lethargic which prompted them to call 911 on the morning of admission. By the time of EMS arrival, she was reported E 60% on room air and was emergently taken to the nearest emergency room with albuterol nebulizer treatment, steroids, and magnesium sulfate and route to the hospital ER. Further workup and evaluation at the ER at [facility] demonstrated the patient to be still hypoxic and required placement of a non-rebreather oxygen mask. This still did not improve her oxygenation and she had to be started on a Venturi mask which did eventually improve her oxygenation. She was more responsive but still quite confused and ischial ABG showed the patient to have a pH of 7.24 pCO2 of 63 and a bicarb of 42. She was then trans
--- NOTE | 2022-08-29 11:48 | P.CONNP_ITS ---
Assessment and Plan Assessment and plan (1) Acute kidney injury: Code(s): N17.9 - Acute kidney failure, unspecified Status: Acute Assessment and Plan: * etiology?? (normal renal function on admission) * due to overdiuresis? * diuretics on hold due to rising creatiine * evaluaton to date * urine electrolytes prerenal' * normal CPK * renal ultrasound unremarkable * despite signs of volume overload, possible intravascular volume depletion (?) * reasonable to give trial of IVFs * follow trend of repeat labs and urine (2) Acute on chronic respiratory failure with hypoxia and hypercapnia: Code(s): J96.21 - Acute and chronic respiratory failure with hypoxia; J96.22 - Acute and chronic respiratory failure with hypercapnia Status: Acute Assessment and Plan: * multifactorial etiology: * COPD * DOMINIC * CHF * pneumonia * s/p IV lasix * on steroids and bronchodilators * follow culture datea * broad spectrum antibiotic therapy * continue ventilator support (3) Congestive heart failure: Code(s): I50.9 - Heart failure, unspecified Status: Acute Assessment and Plan: * as noted by testing on admission * s/p IV diuresis * Echo with diastolic heart failure and pulmonary HTN * follow volume status (4) Pneumonia: Code(s): J18.9 - Pneumonia, unspecified organism Status: Acute Assessment and Plan: * suspected with elevated WBC and productive sputm/secretions prior to intu bation * follow-up on urinary antigens and sputum/blood sultures * see #2 * on antibiotics (5) COPD (chronic obstructive pulmonary disease): Code(s): J44.9 - Chronic obstructive pulmonary disease, unspecified Status: Chronic Assessment and Plan: * see #2 * continue current therapy (6) Urinary tract infection: Code(s): N39.0 - Urinary tract infection, site not specified Status: Acute Assessment and Plan: * urinalysis highly suggestive * follow-up on urine culture Will continue to follow. History of Present Illness Reason for Consult Consult date: 08/29/22 Reason for consult: acute renal failure Chief Complaint Chief complaint: Acute Resp Failure History of Present Illness Narrative: All the information I have obtained is from review of the electronic medical record and discussion with the physician/ nurses involved in the patient's care issues currently intubated and on mechanical ventilation And unable to provide any history. The patient is a 62-year-old female with a past medical history as outlined below who presented as a direct admission to the ICU from [facility] emergency room for further evaluation and treatment of acute on chronic respiratory failure. Apparently, she presented to the emergency room at [facility] via EMS on the day of admission with hypoxia and altered mental status. Family reports that the patient decided to stop taking her home oxygen a few days prior to presentation for unclear reasons. By report, her oxygen levels have been dropping into the 50 percentile range when she did this. This was complicated by the fact that she started becoming increasingly confused and lethargic which prompted them to call 911 on the morning of admission. By the time of EMS arrival, she was reported E 60% on room air and was emergently taken to the nearest emergency room with albuterol nebulizer treatment, steroids, and magnesium sulfate and route to the hospital ER. Further work
[2022-08-29] MEDS: MIDAZOLAM 100MG/NS 100ML(*CRX) 100 MG/100 ML BAG IV CONT (15:05)
[2022-08-29 18:27] LABS: Glucose Point of Care 192 mg/dl (65-105)
--- NOTE | 2022-08-29 18:49 | PM.IMPN ---
Progress Note: A&P Assessment and Plan (1) Acute on chronic respiratory failure with hypoxia and hypercapnia: Code(s): J96.21 - Acute and chronic respiratory failure with hypoxia; J96.22 - Acute and chronic respiratory failure with hypercapnia Status: Acute Assessment and Plan: Patient reportedly stopped wearing her home O2 a couple of days ago for unclear reasons. She has gotten progressively hypoxic and confused since that time. She was started on BiPAP on arrival to the ER however her pH and pCO2 did not improve and in fact worsened and she was subsequently intubated. Currently on a tidal volume of 500 with a PEEP of 10, rate of 20, and an FiO2 of 60%. Repeat blood gas has significantly improved with an ABG of 7.387, pCO2 76.6, bicarb 45.0. Dr. Welch has been consulted and his input is greatly appreciated. 08/29/2021 interval history:?patient intubated unable to provide any history or review of symptom discussed with the nursing home director suspect most likely secondary to pneumonia possibly atypical pneumonia with MAC, TB or fungal,? patient empirically treated with vancomycin,? ceftriaxone and azithromycin, diuresed, bronchodilator and Solu-Medrol, appreciate intensive will continue to monitor. (2) Chronic obstructive pulmonary disease: Code(s): J44.9 - Chronic obstructive pulmonary disease, unspecified Status: Acute Assessment and Plan: Continue bronchodilators and Solu-Medrol. (3) Pneumonia: Code(s): J18.9 - Pneumonia, unspecified organism Status: Acute Assessment and Plan: She has been afebrile though pneumonia suspected with leukocytosis with left shift, markedly elevated CRP, and reports of thick and green secretions noted in the airway upon intubation. Sputum culture pending. Urinary antigens ordered. Continue broad-spectrum antibiotics. (4) Congestive heart failure: Code(s): I50.9 - Heart failure, unspecified Status: Acute Assessment and Plan: Patient was given furosemide 40 milligrams for pulmonary edema noted on chest x-ray at outside facility. No significant swelling noted on exam today. Continue to monitor volume status with close monitoring of I/O and daily weights. (5) Chronic anticoagulation: Code(s): Z79.01 - [facility] (current) use of anticoagulants Status: Acute Assessment and Plan: Continue Eliquis. (6) Gastroesophageal reflux disease: Code(s): K21.9 - Gastro-esophageal reflux disease without esophagitis Status: Acute Assessment and Plan: IV Protonix while NPO. (7) Hyperglycemia: Code(s): R73.9 - Hyperglycemia, unspecified Status: Acute Assessment and Plan: Check fasting glucose and hemoglobin A1c. Initiate sliding scale insulin, Accu-Cheks, and hypoglycemic protocol. (8) Encephalopathy: Code(s): G93.40 - Encephalopathy, unspecified Status: Acute Assessment and Plan: Likely due to a combination of hypoxia, hypercarbia, and infection. Brain CT showed no acute findings. Subjective Date/time seen: 08/29/22 18:49 08/29/2021 interval history:?patient intubated unable to provide any history or review of symptom discussed with the nursing home director suspect most likely secondary to pneumonia possibly atypical pneumonia with MAC, TB or fungal,? patient empirically treated with vancomycin,? ceftriaxone and azithromycin, diuresed, bronchodilator and Solu-Medrol, appreciate intensive will continue to monitor. Review of Systems Review of Systems: ROS unobtainable: Yes unobtainable due to endotracheal tube Exam Narrative: moderately obese Patient is comfortable, NAD HEENT: ET tube in place LUNGS: normal respiratory effort ABD: distended Lower extremities: no edema SKIN: nonjaundiced Neuro: on vent and sedated. Objective Data Vital Signs Vital Signs: Vital Signs - 24 hr 08/28/22 19:44 08/28/22 19:44 08/28/22 20:02 Temperature Pulse Rate
[2022-08-29 18:57] LABS: Magnesium 3.1 mg/dL (1.6-2.3)
[2022-08-29] MEDS: cefTRIAXone 2 GM in SODIUM CHLORIDE 0.9% IV 100 ML 200 ML IVPB (21:12)
[2022-08-30] VITALS (53 sets, daily range): BP systolic 007–127; BP diastolic 55–87; PULSE 61–96; RESP 18–23; TEMP 36–37; O2SAT 90–100
[2022-08-30] MEDS: METOCLOPRAMIDE HCL 10 MG TABLET FEED TUBE ×4 (00:32→17:37)
[2022-08-30 00:38] LABS: Glucose Point of Care 188 mg/dl (65-105)
[2022-08-30] MEDS: ALBUTEROL SULFATE NEB 2.5 MG/3 ML INH INHALATION ×4 (02:07→20:33)
[2022-08-30] MEDS: IPRATROPIUM BR 0.02% INH SOLN 0.5 MG/2.5 ML VIAL INHALATION ×4 (02:07→20:34)
[2022-08-30 04:38] LABS: Hematocrit 36.1 % (37.0-47.0); Hemoglobin 11.1 g/dL (12.0-15.0); Mean Corpuscular HGB Conc 30.7 g/dl (32-36); Mean Corpuscular Hemoglobin 28.2 pg (26-34); Mean Corpuscular Volume 91.9 fl (80-100); Mean Platelet Volume 9.2 fl (7.4-10.4); Platelet Count Result 274 k/mm3 (150-375); Red Blood Count 3.93 M/mm3 (4.2-5.4); Red Cell Distribution Width 14.5 % (11.5-14.5); White Blood Count 18.8 K/mm3 (4.5-10.0)
[2022-08-30 04:53] LABS: Anion Gap 6 mmol/L (8-16); Blood Urea Nitrogen 102 mg/dL (7-17); Calcium 8.7 mg/dL (8.4-10.2); Carbon Dioxide 37 mmol/L (22-30); Chloride 94 mmol/L (98-107); Estimated CRCL calculation 13 ml/min; Estimated Glomerular Filt Rate 9; Glucose 114 mg/dL (65-110); Potassium 4.6 mmol/L (3.4-5.0); Sodium 137 mmol/L (137-145)
[2022-08-30] MEDS: SODIUM CHLORIDE 0.9% IV 1,000 ML 100 ML IV CONT (05:17)
[2022-08-30 05:19] LABS: Alveolar/Arterial O2 Gradient 170.9 mmHg; Base Excess ABG 7.2 mEq/l (+/-2.0); Fractional Inspired Oxygen 45 %; HCO3 ABG 35.3 mEq/l (22.0-26.0); Oxygen Content ABG 20.7 %vol (16.0-22.0); Oxygen Saturation ABG 94.4 % (95.0-100.0); Oxyhemoglobin 93.2 % THb (90.0-100.0); PO2 ABG 76.5 mmHg (80.0-100.0); Total Hemoglobin 15.8 g/dL (12.0-18.0); pH ABG 7.356 (7.350-7.450)
[2022-08-30 05:23] LABS: Arterial Blood Gas Ventilator rate 20 /MIN; Device VENTILATOR; Modified Allen's Test Unable to perform; PCO2 ABG 64.6 mmHg (35.0-45.0); Site Drawn RIGHT RADIAL
[2022-08-30 05:24] LABS: Arterial Blood Gas PEEP 8 cmH2O; Arterial Blood Gas Tidal Volume 450 ml; Arterial Blood Gas Vent Mode CMV
[2022-08-30 05:30] LABS: Glucose Point of Care 130 mg/dl (65-105)
[2022-08-30] MEDS: methylPREDNISolone SOD SUCC 125 MG VIAL 60 MG IV PUSH (08:31)
[2022-08-30] MEDS: MINERAL OIL/WHITE PETROLATUM OINTMENT 1 APPLIC EACH EYE ×2 (08:31→20:06)
[2022-08-30] MEDS: PANTOPRAZOLE SODIUM IV 40 MG VIAL IV PUSH (08:32)
[2022-08-30 09:05] LABS: Vancomycin Trough 20.5 ug/mL (10.0-20.0)
--- NOTE | 2022-08-30 09:21 | WPDINTPN ---
Progress Note: A&P Assessment and Plan (1) Acute on chronic respiratory failure with hypoxia and hypercapnia: Code(s): J96.21 - Acute and chronic respiratory failure with hypoxia; J96.22 - Acute and chronic respiratory failure with hypercapnia Status: Acute Assessment and Plan: Multifactorial acute on chronic respiratory failure with hypoxia and hypercarbia secondary to COPD, obesity hypoventilation syndrome, CHF and community-acquired pneumonia CT chest 1. Tree-in-bud opacities as can be seen with atypical infection (including but not limited to: MAC, TB, fungal), ABPA, airways disease, and less likely aspiration. 2. Nodular opacity in right upper lobe should be followed after the appropriate therapy and cessation of symptoms to ensure resolution. 3. Mediastinal lymphadenopathy. 4. Trace bilateral pleural effusions. 5. Mild interstitial edema Patient was given Lasix in ER and on presentation but hold further Lasix due to acute renal failure Continue Solu-Medrol and bronchodilators Blood and sputum culture are negative till now Continue empiric vancomycin Rocephin and azithromycin Chest x-ray and ABG reviewed Ventilator settings reviewed-continue current to vent settings Influenza RSV and COVID negative Urine Legionella and pneumococcal antigen pending Mycoplasma IgM pending (2) Chronic obstructive pulmonary disease: Code(s): J44.9 - Chronic obstructive pulmonary disease, unspecified Status: Acute Assessment and Plan: See above (3) Congestive heart failure: Code(s): I50.9 - Heart failure, unspecified Status: Acute Assessment and Plan: Hold Lasix due to creatinine elevation Echocardiogram ?1. Left ventricular chamber dimension is normal. ? 2. Left ventricular systolic function is normal, estimated at 60-65%. ? 3. The left ventricular diastolic function is grade I diastolic dysfunction. ? 4. Right ventricular chamber dimension is moderately enlarged. ? 5. Right ventricular systolic function is normal. ? 6. There is moderate tricuspid valve regurgitation, which may be underestimated due to the eccentricity of the jet. ? 7. Dilated inferior vena cava with no collapse upon inspiration consistent with elevated right atrial pressure, 15 mmHg. ? 8. Pulmonary hypertension with an estimated PASP of 59mmHg. (4) Acute kidney injury: Code(s): N17.9 - Acute kidney failure, unspecified Status: Acute Assessment and Plan: Patient presented with normal creatinine but was given Lasix in ER and on presentation due to congestive heart failure Urine electrolytes suggest prerenal. Although echo shows dilated IVC with increased right atrial pressure, patient was given additional IV fluids but creatinine continues to increase and is at 5.1 today Normal CK Unremarkable renal ultrasound Continue to hold diuretics Discussed with nephrology. Will plan to initiate dialysis today if patient's son agreeable to proceed (5) Urinary tract infection: Code(s): N39.0 - Urinary tract infection, site not specified Status: Acute Assessment and Plan: UA suggestive of UTI. She has history of UTI with E coli which was not ESBL Currently on Rocephin Urine culture pending (6) Chronic anticoagulation: Code(s): Z79.01 - [facility] (current) use of anticoagulants Status: Acute Assessment and Plan: Patient on Eliquis and she has history of jugular venous thrombosis. I spoke to patient's son and he is not aware of any details about this thrombosis She is on anticoagulation rate is currently on hold for invasive procedures Doppler ultrasound to evaluate (7) GERD (gastroesophageal reflux disease): Code(s): K21.9 - Gastro-esophageal reflux disease without esophagitis Status: Acute Assessment and Plan: Continue PPI Plan DVT prophylaxis -Eliquis Stress ulcer prophylaxis -PPI Nutrition -start Tube Feeds Code Status - Full Code 16 I spoke to and update
[2022-08-30] MEDS: MIDAZOLAM HCL (*CRX) 2 MG/2 ML VIAL 4 MG (10:06)
--- NOTE | 2022-08-30 10:15 | PC.NURSE ---
0955: Consent for Hemodialysis catheter obtained from [facility]0: Versed 4mg IV push given. Site confirmed by Krishan Welch and Fantasma GRAMAJO.
--- NOTE | 2022-08-30 11:26 | WPDPROCEDUR ---
Procedures Hemodialysis Catheter Placement Right IJ: Discussed w/ patient and/or surrogate, the non-emergent placement of a hemodialysis catheter, including it's clinincal necessity/indication & associated potential risks & complications.: Yes The patient and/or surrogate understand(s) and acknowledge(s) the need to proceed with hemodialysis catheter insertion as an important element of the patient's clinical management.: Yes HD Catheter Date: 08/30/22 HD Catheter Time: 10:30 Pre-procedural Time-Out was completed immediately before starting the procedure and confirmed: Patient Identification, Site, Procedure, Patient Position and the Availability of Requisite Equipment.: Yes Patient Position: supine Patient Placed on Monitor/Pulse Ox: Yes Provider Prep: mask, sterile gown, sterile gloves, Max. sterile barrier precautions, cap and hand hygiene Hemodialysis Catheter Prep: Povidone-Iodine 1% Ultrasound Used for Placement: Yes Patient Tolerated Procedure: well and no complications Additional Comments: Hemodialysis catheter insertion was not attempted on right IJ site. Patient has history of jugular venous thrombosis. Ultrasound was performed prior to the procedure and showed no thrombus. Right IJ vein was relatively smaller. Two attempts were made and on both times despite having good access to the vein, was unable to advance guidewire comfortably. After trying couple of times procedure was aborted to change the site.
--- NOTE | 2022-08-30 11:28 | P.PCNBED_ITS ---
Procedures Hemodialysis Catheter Placement Left IJ: Discussed w/ patient and/or surrogate, the non-emergent placement of a hemodialysis catheter, including it's clinincal necessity/indication & associated potential risks & complications.: Yes The patient and/or surrogate understand(s) and acknowledge(s) the need to proceed with hemodialysis catheter insertion as an important element of the patient's clinical management.: Yes Consent: Consent was obtained from patient's son by phone HD Catheter Date: 08/30/22 HD Catheter Time: 11:00 Pre-procedural Time-Out was completed immediately before starting the procedure and confirmed: Patient Identification, Site, Procedure, Patient Po sition and the Availability of Requisite Equipment.: Yes Patient Position: supine Patient Placed on Monitor/Pulse Ox: Yes Provider Prep: mask, sterile gown, sterile gloves, Max. sterile barrier precautions, cap and hand hygiene Hemodialysis Catheter Prep: Povidone-Iodine 1% Ultrasound Used for Placement: Yes Hemodialysis Catheter Inserted: triple Length (cm): 20 Depth of Insertion (cm): 20 Post Procedure: sutured in place, good blood return, all ports aspirated, flushed, capped, transparent dressing and aseptic technique maintained throughout procedure Post Procedure X-Ray: tip of catheter in good position and no pneumothorax seen Patient Tolerated Procedure: well Complications: none
[2022-08-30] MEDS: fentaNYL CITRATE INJ (*CRX) 100 MCG/2 ML VIAL (11:29)
[2022-08-30 12:01] LABS: Glucose Point of Care 186 mg/dl (65-105)
[2022-08-30] MEDS: MIDAZOLAM 100MG/NS 100ML(*CRX) 100 MG/100 ML BAG IV CONT (12:19)
[2022-08-30 14:08] LABS: Hepatitis B Surface Antigen Negative (Negative)
[2022-08-30 14:25] LABS: Hepatitis B Surface Anti Res Negative
--- NOTE | 2022-08-30 15:22 | P.PNNP_ITS ---
Progress Note: A&P Assessment and Plan (1) Acute kidney injury: Code(s): N17.9 - Acute kidney failure, unspecified Status: Acute Assessment and Plan: * etiology?? (normal renal function on admission) * possible drop in BP prior to transfer to [place] ICU?? * diuretics on hold due to rising creatinine * evaluation to date * urine electrolytes prerenal' * normal CPK * renal ultrasound unremarkable * no significant response to trial of IVFs yesterday * given declining urine output and risng BUN + creatinine, will proceed with dialysis initiation today * HD catheter placed earlier today * follow electrolytes, volume status, and clearance * fluid removal with HD as tolerated by hemodynamics * follow trend of repeat labs and urine to assess for renal recovery (2) Acute on chronic respiratory failure with hypoxia and hypercapnia: Code(s): J96.21 - Acute and chronic respiratory failure with hypoxia; J96.22 - Acute and chronic respiratory failure with hypercapnia Status: Acute Assessment and Plan: * multifactorial etiology: * COPD * DOMINIC * CHF * pneumonia * s/p IV lasix * on steroids and bronchodilators * follow culture datea * broad spectrum antibiotic therapy * fluid removal with dialysis/HD * continue ventilator support (3) Congestive heart failure: Code(s): I50.9 - Heart failure, unspecified Status: Acute Assessment and Plan: * as noted by testing on admission * s/p IV diuresis * Echo with diastolic heart failure and pulmonary HTN * follow volume status - fluid removal with dialysis/HD (4) Pneumonia: Code(s): J18.9 - Pneumonia, unspecified organism Status: Acute Assessment and Plan: * suspected with elevated WBC and productive sputm/secretions prior to intubation * follow-up on urinary antigens and sputum/blood sultures * see #2 * on antibiotics (5) COPD (chronic obstructive pulmonary disease): Code(s): J44.9 - Chronic obstructive pulmonary disease, unspecified Status: Chronic Assessment and Plan: * see #2 * continue current therapy (6) Urinary tract infection: Code(s): N39.0 - Urinary tract infection, site not specified Status: Acute Assessment and Plan: * urinalysis highly suggestive * follow-up on urine culture Will continue to follow. Subjective Date/time seen: 08/30/22 15:22 Tolerating dialysis treatment at the time of my visit (seen on HD at 3:10PM); w orsening renal dysfunction noted with declining urine output in the last 24 hours with no significant response to trial of IVFs yesterday; acceptable hemodynamics and remains intubated and on full mechanical ventilator support. Exam Narrative: General: WD/WN femnale intubated/sedated and on mechanical ventilaltion Heart: normal S1 and S2; no rub Lungs: coarse breath sound with a few crackles at the bases Abdomen: soft, nontender, nondistended, positive bowel sounds Extremities: no cyanosis or clubbing; no edema Skin: warm and dry Objective Data Vital Signs Vital Signs: Vital Signs Temp Pulse Resp BP Pulse Ox O2 Del Method FiO2 08/30/22 14:00 98.0 F 67 21 H 117/57 L 96 08/30/22 14:00 65 08/30/22 12:00 98.0 F 64 21 H 117/57 L 96 08/30/22 14:30 98.2 F 68 23 H 119/58 L 96 08/30/22 10:42 77
--- NOTE | 2022-08-30 15:22 | PM.PNNEP ---
Progress Note: A&P Assessment and Plan (1) Acute kidney injury: Code(s): N17.9 - Acute kidney failure, unspecified Status: Acute Assessment and Plan: etiology?? (normal renal function on admission) possible drop in BP prior to transfer to [place] ICU?? diuretics on hold due to rising creatinine evaluation to date urine electrolytes prerenal' normal CPK renal ultrasound unremarkable no significant response to trial of IVFs yesterday given declining urine output and risng BUN + creatinine, will proceed with dialysis initiation today HD catheter placed earlier today follow electrolytes, volume status, and clearance fluid removal with HD as tolerated by hemodynamics follow trend of repeat labs and urine to assess for renal recovery (2) Acute on chronic respiratory failure with hypoxia and hypercapnia: Code(s): J96.21 - Acute and chronic respiratory failure with hypoxia; J96.22 - Acute and chronic respiratory failure with hypercapnia Status: Acute Assessment and Plan: multifactorial etiology: COPD DOMINIC CHF pneumonia s/p IV lasix on steroids and bronchodilators follow culture datea broad spectrum antibiotic therapy fluid removal with dialysis/HD continue ventilator support (3) Congestive heart failure: Code(s): I50.9 - Heart failure, unspecified Status: Acute Assessment and Plan: as noted by testing on admission s/p IV diuresis Echo with diastolic heart failure and pulmonary HTN follow volume status - fluid removal with dialysis/HD (4) Pneumonia: Code(s): J18.9 - Pneumonia, unspecified organism Status: Acute Assessment and Plan: suspected with elevated WBC and productive sputm/secretions prior to intubation follow-up on urinary antigens and sputum/blood sultures see #2 on antibiotics (5) COPD (chronic obstructive pulmonary disease): Code(s): J44.9 - Chronic obstructive pulmonary disease, unspecified Status: Chronic Assessment and Plan: see #2 continue current therapy (6) Urinary tract infection: Code(s): N39.0 - Urinary tract infection, site not specified Status: Acute Assessment and Plan: urinalysis highly suggestive follow-up on urine culture Will continue to follow. Subjective Date/time seen: 08/30/22 15:22 Tolerating dialysis treatment at the time of my visit (seen on HD at 3:10PM); worsening renal dysfunction noted with declining urine output in the last 24 hours with no significant response to trial of IVFs yesterday; acceptable hemodynamics and remains intubated and on full mechanical ventilator support. Exam Narrative: General: WD/WN femnale intubated/sedated and on mechanical ventilaltion Heart: normal S1 and S2; no rub Lungs: coarse breath sound with a few crackles at the bases Abdomen: soft, nontender, nondistended, positive bowel sounds Extremities: no cyanosis or clubbing; no edema Skin: warm and dry Objective Data Vital Signs Vital Signs: Vital Signs Temp Pulse Resp BP Pulse Ox O2 Del Method FiO2 08/30/22 14:00 98.0 F 67 21 H 117/57 L 96 08/30/22 14:00 65 08/30/22 12:00 98.0 F 64 21 H 117/57 L 96 08/30/22 14:30 98.2 F 68 23 H 119/58 L 96 08/30/22 10:42 77 20 90 08/30/22 06:42 66 20 96 08/30/22 05:10 66 20 96 08/29/22 22:30 71 20 96 08/29/22 22:15 77 21 H 96 08/29/22 22:01 77 20 121/63 97 08/29/22 22:00 76 22 H 96 08/29/22 21:45 70 19 97 08/29/22 21:30 70 14 97 08/29/22 21:15 60 20 96 08/29/22 21:01 62 20 110/53 L 95 08/29/22 21:00 61 20 94 08/29/22 20:50 61 20 95 08/29/22 20:14 59 L 21 H 96 08/29/22 18:01 63 23 H 107/56 L 90 08/29/22 18:00 61 18 90 08/29/22 17:45 62 18 95 08/29/22 17:30 63 21 H 95 08/29/22 17:15 70 17
[2022-08-30 17:26] LABS: Glucose Point of Care 165 mg/dl (65-105)
[2022-08-30] MEDS: FENTANYL 2,500MCG/NS250ML(*CRX 2,500 MCG/250 ML BAG 7.5 MCG IV CONT (18:05)
[2022-08-30 20:17] LABS: Magnesium 2.5 mg/dL (1.6-2.3)
[2022-08-30] MEDS: cefTRIAXone 2 GM in SODIUM CHLORIDE 0.9% IV 100 ML 200 ML IVPB (21:46)
[2022-08-31] VITALS (153 sets, daily range): BP systolic 81–121; BP diastolic 44–78; PULSE 58–82; RESP 15–26; TEMP 36–37.4; O2SAT 80–100
[2022-08-31 00:33] LABS: Glucose Point of Care 161 mg/dl (65-105)
[2022-08-31] MEDS: METOCLOPRAMIDE HCL 10 MG TABLET FEED TUBE ×3 (00:36→18:11)
[2022-08-31] MEDS: IPRATROPIUM BR 0.02% INH SOLN 0.5 MG/2.5 ML VIAL INHALATION ×4 (02:26→20:03)
[2022-08-31] MEDS: ALBUTEROL SULFATE NEB 2.5 MG/3 ML INH INHALATION ×4 (02:26→20:03)
[2022-08-31 05:29] LABS: Base Excess ABG 4.3 mEq/l (+/-2.0); Fractional Inspired Oxygen 40 %; HCO3 ABG 30.2 mEq/l (22.0-26.0); Oxygen Content ABG 16.3 %vol (16.0-22.0); Oxygen Saturation ABG 93.7 % (95.0-100.0); Oxyhemoglobin 93.5 % THb (90.0-100.0); PCO2 ABG 50.8 mmHg (35.0-45.0); PO2 ABG 69.8 mmHg (80.0-100.0); PO2 FiO2 Ratio Arterial Blood 1.75 %; Total Hemoglobin 12.4 g/dL (12.0-18.0); pH ABG 7.392 (7.350-7.450)
[2022-08-31 05:30] LABS: Device VENTILATOR; Modified Allen's Test Pass; Site Drawn RIGHT RADIAL
[2022-08-31 05:31] LABS: Arterial Blood Gas PEEP 8 cmH2O; Arterial Blood Gas Tidal Volume 450 ml; Arterial Blood Gas Vent Mode CMV; Arterial Blood Gas Ventilator rate 20 /MIN
[2022-08-31 05:36] LABS: Hematocrit 34.3 % (37.0-47.0); Hemoglobin 10.4 g/dL (12.0-15.0); Mean Corpuscular HGB Conc 30.3 g/dl (32-36); Mean Corpuscular Hemoglobin 27.6 pg (26-34); Mean Platelet Volume 9.3 fl (7.4-10.4); Platelet Count Result 274 k/mm3 (150-375); Red Blood Count 3.77 M/mm3 (4.2-5.4); Red Cell Distribution Width 14.6 % (11.5-14.5); White Blood Count 16.6 K/mm3 (4.5-10.0)
[2022-08-31 05:52] LABS: Anion Gap 5 mmol/L (8-16); Blood Urea Nitrogen 67 mg/dL (7-17); Calcium 8.8 mg/dL (8.4-10.2); Carbon Dioxide 30 mmol/L (22-30); Chloride 102 mmol/L (98-107); Estimated CRCL calculation 20 ml/min; Estimated Glomerular Filt Rate 14; Glucose 106 mg/dL (65-110); Magnesium 2.6 mg/dL (1.6-2.3); Potassium 4.4 mmol/L (3.4-5.0); Sodium 137 mmol/L (137-145)
[2022-08-31] MEDS: MIDAZOLAM 100MG/NS 100ML(*CRX) 100 MG/100 ML BAG IV CONT (07:21)
[2022-08-31 07:49] LABS: Mycoplasma IgM Antibody Titer 287 U/mL (<770)
--- NOTE | 2022-08-31 07:54 | PC.NURSE ---
0750: Patient placed on sedation vacation.
[2022-08-31] MEDS: MINERAL OIL/WHITE PETROLATUM OINTMENT 1 APPLIC EACH EYE ×2 (08:07→20:18)
[2022-08-31] MEDS: methylPREDNISolone SOD SUCC 125 MG VIAL 60 MG IV PUSH (08:07)
[2022-08-31] MEDS: PANTOPRAZOLE SODIUM IV 40 MG VIAL IV PUSH (08:08)
--- NOTE | 2022-08-31 08:39 | WPDINTPN ---
Progress Note: A&P Assessment and Plan (1) Acute on chronic respiratory failure with hypoxia and hypercapnia: Code(s): J96.21 - Acute and chronic respiratory failure with hypoxia; J96.22 - Acute and chronic respiratory failure with hypercapnia Status: Acute Assessment and Plan: Multifactorial acute on chronic respiratory failure with hypoxia and hypercarbia secondary to COPD, obesity hypoventilation syndrome, CHF and community-acquired pneumonia CT chest 1. Tree-in-bud opacities as can be seen with atypical infection (including but not limited to: MAC, TB, fungal), ABPA, airways disease, and less likely aspiration. 2. Nodular opacity in right upper lobe should be followed after the appropriate therapy and cessation of symptoms to ensure resolution. 3. Mediastinal lymphadenopathy. 4. Trace bilateral pleural effusions. 5. Mild interstitial edema Patient was given Lasix in ER and on presentation but hold further Lasix due to acute renal failure hemodialysis initiated remove volume Continue Solu-Medrol and bronchodilators Blood and sputum culture are negative till now Continue empiric vancomycin Rocephin and azithromycin Chest x-ray and ABG reviewed Ventilator settings reviewed- decrease PEEP to 5 Influenza RSV and COVID negative Urine Legionella and pneumococcal antigen pending Mycoplasma IgM pending WBC improving. afebrile (2) Chronic obstructive pulmonary disease: Code(s): J44.9 - Chronic obstructive pulmonary disease, unspecified Status: Acute Assessment and Plan: See above (3) Congestive heart failure: Code(s): I50.9 - Heart failure, unspecified Status: Acute Assessment and Plan: hemodialysis to Echocardiogram ?1. Left ventricular chamber dimension is normal. ? 2. Left ventricular systolic function is normal, estimated at 60-65%. ? 3. The left ventricular diastolic function is grade I diastolic dysfunction. ? 4. Right ventricular chamber dimension is moderately enlarged. ? 5. Right ventricular systolic function is normal. ? 6. There is moderate tricuspid valve regurgitation, which may be underestimated due to the eccentricity of the jet. ? 7. Dilated inferior vena cava with no collapse upon inspiration consistent with elevated right atrial pressure, 15 mmHg. ? 8. Pulmonary hypertension with an estimated PASP of 59mmHg. (4) Acute kidney injury: Code(s): N17.9 - Acute kidney failure, unspecified Status: Acute Assessment and Plan: Patient presented with normal creatinine but was given Lasix in ER and on presentation due to congestive heart failure Urine electrolytes suggest prerenal. Although echo shows dilated IVC with increased right atrial pressure, patient was given additional IV fluids but creatinine continues to increase Normal CK Unremarkable renal ultrasound 08/30 after discussion with Nephrology, left internal jugular hemodialysis catheter was placed and patient was started on hemodialysis. 3 to fluid was removed she will need additional sessions to remove additional fluid. Discussed with nephrology and they will try to get her dialyzed again today (5) Urinary tract infection: Code(s): N39.0 - Urinary tract infection, site not specified Status: Acute Assessment and Plan: UA suggestive of UTI. She has history of UTI with E coli which was not ESBL Currently on Rocephin Urine culture is growing Klebsiella which is sensitive to Rocephin (6) Chronic anticoagulation: Code(s): Z79.01 - manager terminal (current) use of anticoagulants Status: Acute Assessment and Plan: Patient on Eliquis and she has history of jugular venous thrombosis. I spoke to patient's son and he is not aware of any details about this thrombosis She is on anticoagulation rate is currently on hold for invasive procedures Doppler ultrasound to evaluate (7) GERD (gastroesophageal reflux disease): Code(s): K21.9 - Gastro-esophageal reflux disease without
[2022-08-31] MEDS: APIXABAN 2.5 MG TABLET FEED TUBE ×2 (09:24→20:18)
--- NOTE | 2022-08-31 10:44 | PM.PNNEP ---
Progress Note: A&P Assessment and Plan (1) Acute kidney injury: Code(s): N17.9 - Acute kidney failure, unspecified Status: Acute Assessment and Plan: etiology?? (normal renal function on admission) possible drop in BP prior to transfer to [place] ICU?? evaluation to date urine electrolytes prerenal normal CPK renal ultrasound unremarkable no significant response to trial of IVFs given declining urine output and risng BUN + creatinine, initiated on HD yesterday (08/30/22) HD catheter in place follow electrolytes, volume status, and clearance fluid removal with HD as tolerated by hemodynamics DUF (dry ultrafiltration) today for further fluid removal follow trend of repeat labs and urine to assess for renal recovery (2) Acute on chronic respiratory failure with hypoxia and hypercapnia: Code(s): J96.21 - Acute and chronic respiratory failure with hypoxia; J96.22 - Acute and chronic respiratory failure with hypercapnia Status: Acute Assessment and Plan: multifactorial etiology: COPD DOMINIC CHF pneumonia s/p IV lasix on steroids and bronchodilators follow culture datea broad spectrum antibiotic therapy fluid removal with dialysis/HD continue ventilator support (3) Congestive heart failure: Code(s): I50.9 - Heart failure, unspecified Status: Acute Assessment and Plan: as noted by testing on admission s/p IV diuresis Echo with diastolic heart failure and pulmonary HTN follow volume status - fluid removal with dialysis/HD (4) Pneumonia: Code(s): J18.9 - Pneumonia, unspecified organism Status: Acute Assessment and Plan: suspected with elevated WBC and productive sputm/secretions prior to intubation follow-up on urinary antigens and sputum/blood sultures see #2 on antibiotics (5) COPD (chronic obstructive pulmonary disease): Code(s): J44.9 - Chronic obstructive pulmonary disease, unspecified Status: Chronic Assessment and Plan: see #2 continue current therapy (6) Urinary tract infection: Code(s): N39.0 - Urinary tract infection, site not specified Status: Acute Assessment and Plan: urinalysis highly suggestive follow-up on urine culture Will continue to follow. Subjective Date/time seen: 08/31/22 10:44 Tolerating dry ultrafiltration at the time of my visit (seen on DUF at 10:35AM); remains intubated/sedated and on mechanical ventilation; stable hemodynamics noted; tolerated hemodialysis treatment yesterday without any issues or problems; discussed with family at bedside. Exam Narrative: General: WD/WN femnale intubated/sedated and on mechanical ventilaltion Heart: normal S1 and S2; no rub Lungs: coarse breath sound with bibasilar crackles Abdomen: soft, nontender, nondistended, positive bowel sounds Extremities: no cyanosis or clubbing; no edema Skin: warm and intact Objective Data Vital Signs Vital Signs: Vital Signs Temp Pulse Resp BP Pulse Ox O2 Del Method FiO2 08/31/22 10:44 68 20 91/47 L 90 08/31/22 10:31 68 23 H 98/44 L 91 08/31/22 10:30 66 21 H 90 08/31/22 10:17 65 20 91 08/31/22 10:16 66 20 95/50 L 91 08/31/22 10:15 65 20 100/49 L 90 08/31/22 10:12 67 18 99/50 L 91 08/31/22 10:02 73 20 99 08/31/22 14:00 65 08/31/22 13:57 66 20 08/31/22 13:06 98.6 F 65 20 106/58 L 90 08/31/22 13:00 67 104/54 L 08/31/22 12:45 64 102/47 L 08/31/22 12:00 62 20 100/56 L 92 08/31/22 12:00 40 08/31/22 12:00 62 08/31/22 11:12 60 92 Mechanical Ventilation 40 08/31/22 10:55 61 20 08/31/22 10:59 61 90 Mechanical Ventilation 40 08/31/22 12:30 64 100/56 L 08/31/22 12:15 61 94/50 L 08/31/22 12:00 63 98/54 L 08/31/22 11:45 63 97/48 L 08/31/22 11:30 59 L 95/48 L
--- NOTE | 2022-08-31 10:44 | P.PNNP_ITS ---
Progress Note: A&P Assessment and Plan (1) Acute kidney injury: Code(s): N17.9 - Acute kidney failure, unspecified Status: Acute Assessment and Plan: * etiology?? (normal renal function on admission) * possible drop in BP prior to transfer to [place] ICU?? * evaluation to date * urine electrolytes prerenal * normal CPK * renal ultrasound unremarkable * no significant response to trial of IVFs * given declining urine output and risng BUN + creatinine, initiated on HD yesterday (08/30/22) * HD catheter in place * follow electrolytes, volume status, and clearance * fluid removal with HD as tolerated by hemodynamics * DUF (dry ultrafiltration) today for further fluid removal * follow trend of repeat labs and urine to assess for renal recovery (2) Acute on chronic respiratory failure with hypoxia and hypercapnia: Code(s): J96.21 - Acute and chronic respiratory failure with hypoxia; J96.22 - Acute and chronic respiratory failure with hypercapnia Status: Acute Assessment and Plan: * multifactorial etiology: * COPD * DOMINIC * CHF * pneumonia * s/p IV lasix * on steroids and bronchodilators * follow culture datea * broad spectrum antibiotic therapy * fluid removal with dialysis/HD * continue ventilator support (3) Congestive heart failure: Code(s): I50.9 - Heart failure, unspecified Status: Acute Assessment and Plan: * as noted by testing on admission * s/p IV diuresis * Echo with diastolic heart failure and pulmonary HTN * follow volume status - fluid removal with dialysis/HD (4) Pneumonia: Code(s): J18.9 - Pneumonia, unspecified organism Status: Acute Assessment and Plan: * suspected with elevated WBC and productive sputm/secretions prior to intubation * follow-up on urinary antigens and sputum/blood sultures * see #2 * on antibiotics (5) COPD (chronic obstructive pulmonary disease): Code(s): J44.9 - Chronic obstructive pulmonary disease, unspecified Status: Chronic Assessment and Plan: * see #2 * continue current therapy (6) Urinary tract infection: Code(s): N39.0 - Urinary tract infection, site not specified Status: Acute Assessment and Plan: * urinalysis highly suggestive * follow-up on urine culture Will continue to follow. Subjective Date/time seen: 08/31/22 10:44 Tolerating dry ultrafiltration at the time of my visit (seen on DUF at 10:35AM); remains intubated/sedated and on mechanical ventilation; stable hemodynamics noted; tolerated hemodialysis treatment yesterday without any issues or problems; discussed with family at bedside. Exam Narrative: General: WD/WN femnale intubated/sedated and on mechanical ventilaltion Heart: normal S1 and S2; no rub Lungs: coarse breath sound with bibasilar crackles Abdomen: soft, nontender, nondistended, positive bowel sounds Extremities: no cyanosis or clubbing; no edema Skin: warm and intact Objective Data Vital Signs Vital Signs: Vital Signs Temp Pulse Resp BP Pulse Ox O2 Del Method FiO2 08/31/22 10:44 68 20 91/47 L 90 08/31/22 10:31 68 23 H 98/44 L 91 08/31/22 10:30 66 21 H 90 08/31/22 10:17 65 20 91 08/31/22 10:16 66 20 95/50 L 91 08/31/22 10:15 65 20 100/49 L 90
[2022-08-31 10:51] LABS: Glucose Point of Care 198 mg/dl (65-105)
--- NOTE | 2022-08-31 14:35 | PM.IMPN ---
Progress Note: A&P Assessment and Plan (1) Acute on chronic respiratory failure with hypoxia and hypercapnia: Code(s): J96.21 - Acute and chronic respiratory failure with hypoxia; J96.22 - Acute and chronic respiratory failure with hypercapnia Status: Acute Assessment and Plan: Patient reportedly stopped wearing her home O2 a couple of days ago for unclear reasons. She has gotten progressively hypoxic and confused since that time. She was started on BiPAP on arrival to the ER however her pH and pCO2 did not improve and in fact worsened and she was subsequently intubated. Currently on a tidal volume of 500 with a PEEP of 10, rate of 20, and an FiO2 of 60%. Repeat blood gas has significantly improved with an ABG of 7.387, pCO2 76.6, bicarb 45.0. Dr. Welch has been consulted and his input is greatly appreciated. 08/30/2021 interval history: currently patient is having cardiac echo, ?patient intubated unable to provide any history or review of symptom discussed with the adjunct professor of law suspect most likely secondary to pneumonia possibly atypical pneumonia with MAC, TB or fungal,? patient empirically treated with vancomycin,? ceftriaxone and azithromycin, patient is being diuresed however patient may need dialysis to remove fluids and adjunct professor of law will place temporary catheter, will continue bronchodilator and Solu-Medrol, appreciate intensive will continue to monitor. (2) Chronic obstructive pulmonary disease: Code(s): J44.9 - Chronic obstructive pulmonary disease, unspecified Status: Acute Assessment and Plan: Continue bronchodilators and Solu-Medrol. (3) Pneumonia: Code(s): J18.9 - Pneumonia, unspecified organism Status: Acute Assessment and Plan: She has been afebrile though pneumonia suspected with leukocytosis with left shift, markedly elevated CRP, and reports of thick and green secretions noted in the airway upon intubation. Sputum culture pending. Urinary antigens ordered. Continue broad-spectrum antibiotics. (4) Congestive heart failure: Code(s): I50.9 - Heart failure, unspecified Status: Acute Assessment and Plan: Patient was given furosemide 40 milligrams for pulmonary edema noted on chest x-ray at outside facility. No significant swelling noted on exam today. Continue to monitor volume status with close monitoring of I/O and daily weights. (5) Chronic anticoagulation: Code(s): Z79.01 - termite treater helper (current) use of anticoagulants Status: Acute Assessment and Plan: Continue Eliquis. (6) Gastroesophageal reflux disease: Code(s): K21.9 - Gastro-esophageal reflux disease without esophagitis Status: Acute Assessment and Plan: IV Protonix while NPO. (7) Hyperglycemia: Code(s): R73.9 - Hyperglycemia, unspecified Status: Acute Assessment and Plan: Check fasting glucose and hemoglobin A1c. Initiate sliding scale insulin, Accu-Cheks, and hypoglycemic protocol. (8) Encephalopathy: Code(s): G93.40 - Encephalopathy, unspecified Status: Acute Assessment and Plan: Likely due to a combination of hypoxia, hypercarbia, and infection. Brain CT showed no acute findings. Subjective Date/time seen: 08/30/22 14:35 08/30/2021 interval history: currently patient is having cardiac echo, ?patient intubated unable to provide any history or review of symptom discussed with the adjunct professor of law suspect most likely secondary to pneumonia possibly atypical pneumonia with MAC, TB or fungal,? patient empirically treated with vancomycin,? ceftriaxone and azithromycin, patient is being diuresed however patient may need dialysis to remove fluids and adjunct professor of law will place temporary catheter, will continue bronchodilator and Solu-Medrol, appreciate intensive will continue to monitor. Review of Systems Review of Systems: ROS unobtainable: Yes unobtainable due to endotracheal tube Exam Narrative:
--- NOTE | 2022-08-31 15:27 | PM.IMPN ---
Progress Note: A&P Assessment and Plan (1) Acute on chronic respiratory failure with hypoxia and hypercapnia: Code(s): J96.21 - Acute and chronic respiratory failure with hypoxia; J96.22 - Acute and chronic respiratory failure with hypercapnia Status: Acute Assessment and Plan: Patient reportedly stopped wearing her home O2 a couple of days ago for unclear reasons. She has gotten progressively hypoxic and confused since that time. She was started on BiPAP on arrival to the ER however her pH and pCO2 did not improve and in fact worsened and she was subsequently intubated. Currently on a tidal volume of 500 with a PEEP of 10, rate of 20, and an FiO2 of 60%. Repeat blood gas has significantly improved with an ABG of 7.387, pCO2 76.6, bicarb 45.0. Dr. Welch has been consulted and his input is greatly appreciated. 08/31/2021 interval history: on 08/30 patient had vasular study, ?patient intubated unable to provide any history or review of symptom discussed with the director supply chain suspect most likely secondary to pneumonia possibly atypical pneumonia with MAC, TB or fungal,? patient empirically treated with vancomycin,? ceftriaxone and azithromycin, patient is being diuresed however patient patient is volume overloaded,may need dialysis to remove fluids and on 08/30 director supply chain placed temporary catheter, and today patient had dialysis and 3L was remove, this will help,will continue bronchodilator and Solu-Medrol, appreciate intensive will continue to monitor. (2) Chronic obstructive pulmonary disease: Code(s): J44.9 - Chronic obstructive pulmonary disease, unspecified Status: Acute Assessment and Plan: Continue bronchodilators and Solu-Medrol. (3) Pneumonia: Code(s): J18.9 - Pneumonia, unspecified organism Status: Acute Assessment and Plan: She has been afebrile though pneumonia suspected with leukocytosis with left shift, markedly elevated CRP, and reports of thick and green secretions noted in the airway upon intubation. Sputum culture pending. Urinary antigens ordered. Continue broad-spectrum antibiotics. (4) Congestive heart failure: Code(s): I50.9 - Heart failure, unspecified Status: Acute Assessment and Plan: Patient was given furosemide 40 milligrams for pulmonary edema noted on chest x-ray at outside facility. No significant swelling noted on exam today. Continue to monitor volume status with close monitoring of I/O and daily weights. (5) Chronic anticoagulation: Code(s): Z79.01 - termination clerk (current) use of anticoagulants Status: Acute Assessment and Plan: Continue Eliquis. (6) Gastroesophageal reflux disease: Code(s): K21.9 - Gastro-esophageal reflux disease without esophagitis Status: Acute Assessment and Plan: IV Protonix while NPO. (7) Hyperglycemia: Code(s): R73.9 - Hyperglycemia, unspecified Status: Acute Assessment and Plan: Check fasting glucose and hemoglobin A1c. Initiate sliding scale insulin, Accu-Cheks, and hypoglycemic protocol. (8) Encephalopathy: Code(s): G93.40 - Encephalopathy, unspecified Status: Acute Assessment and Plan: Likely due to a combination of hypoxia, hypercarbia, and infection. Brain CT showed no acute findings. Subjective Date/time seen: 08/31/22 15:27 Patient reportedly stopped wearing her home O2 a couple of days ago for unclear reasons. She has gotten progressively hypoxic and confused since that time. She was started on BiPAP on arrival to the ER however her pH and pCO2 did not improve and in fact worsened and she was subsequently intubated. Currently on a tidal volume of 500 with a PEEP of 10, rate of 20, and an FiO2 of 60%. Repeat blood gas has significantly improved with an ABG of 7.387, pCO2 76.6, bicarb 45.0. Dr. Welch has been consulted and his input is greatly appreciated. 08/31/2021 interval history: on 08/30 patient had
[2022-08-31 18:18] LABS: Glucose Point of Care 203 mg/dl (65-105)
[2022-08-31] MEDS: INSULIN ASPART (*BKC) 100 UNITS/ML SUB-Q (18:23)
[2022-08-31 19:41] LABS: Legionella pneumophila Ag Ur Not Detected (Not Detected)
[2022-08-31 19:54] LABS: Vancomycin Random 23.8 ug/mL (10-20)
[2022-08-31] MEDS: cefTRIAXone 2 GM in SODIUM CHLORIDE 0.9% IV 100 ML 200 ML IVPB (21:07)
[2022-09-01] VITALS (32 sets, daily range): BP systolic 99–132; BP diastolic 48–97; PULSE 57–73; RESP 20–22; TEMP 37.1–37.5; O2SAT 92–98
[2022-09-01] MEDS: METOCLOPRAMIDE HCL 10 MG TABLET FEED TUBE ×4 (01:06→18:08)
[2022-09-01 01:17] LABS: Glucose Point of Care 137 mg/dl (65-105)
[2022-09-01] MEDS: ALBUTEROL SULFATE NEB 2.5 MG/3 ML INH INHALATION ×4 (01:37→20:40)
[2022-09-01] MEDS: IPRATROPIUM BR 0.02% INH SOLN 0.5 MG/2.5 ML VIAL INHALATION ×4 (01:37→20:40)
[2022-09-01] MEDS: FENTANYL 2,500MCG/NS250ML(*CRX 2,500 MCG/250 ML BAG 7.5 MCG IV CONT (04:20)
[2022-09-01 04:45] LABS: Hematocrit 36.5 % (37.0-47.0); Mean Corpuscular HGB Conc 30.1 g/dl (32-36); Mean Corpuscular Hemoglobin 28.1 pg (26-34); Mean Corpuscular Volume 93.4 fl (80-100); Mean Platelet Volume 9.3 fl (7.4-10.4); Platelet Count Result 282 k/mm3 (150-375); Red Blood Count 3.91 M/mm3 (4.2-5.4); Red Cell Distribution Width 14.6 % (11.5-14.5); White Blood Count 16.3 K/mm3 (4.5-10.0)
[2022-09-01 05:00] LABS: Anion Gap 6 mmol/L (8-16); Blood Urea Nitrogen 87 mg/dL (7-17); Calcium 9.1 mg/dL (8.4-10.2); Carbon Dioxide 29 mmol/L (22-30); Chloride 100 mmol/L (98-107); Estimated CRCL calculation 16 ml/min; Estimated Glomerular Filt Rate 11; Glucose 127 mg/dL (65-110); Magnesium 2.8 mg/dL (1.6-2.3); Sodium 135 mmol/L (137-145)
[2022-09-01 05:48] LABS: Alveolar/Arterial O2 Gradient 165.1 mmHg; Base Excess ABG 2.3 mEq/l (+/-2.0); Fractional Inspired Oxygen 40 %; HCO3 ABG 28.1 mEq/l (22.0-26.0); Oxygen Saturation ABG 91.8 % (95.0-100.0); Oxyhemoglobin 91.5 % THb (90.0-100.0); PCO2 ABG 48.8 mmHg (35.0-45.0); Total Hemoglobin 11.6 g/dL (12.0-18.0); pH ABG 7.378 (7.350-7.450)
[2022-09-01 05:49] LABS: Device VENTILATOR; Modified Allen's Test Pass; Site Drawn RIGHT RADIAL
[2022-09-01 05:50] LABS: Arterial Blood Gas PEEP 5 cmH2O; Arterial Blood Gas Tidal Volume 450 ml; Arterial Blood Gas Vent Mode CMV; Arterial Blood Gas Ventilator rate 20 /MIN
[2022-09-01] MEDS: APIXABAN 2.5 MG TABLET FEED TUBE ×2 (08:57→20:55)
[2022-09-01] MEDS: MINERAL OIL/WHITE PETROLATUM OINTMENT 1 APPLIC EACH EYE ×2 (08:58→20:55)
[2022-09-01] MEDS: PANTOPRAZOLE SODIUM IV 40 MG VIAL IV PUSH (08:58)
[2022-09-01] MEDS: methylPREDNISolone SOD SUCC 125 MG VIAL 60 MG IV PUSH (08:58)
--- NOTE | 2022-09-01 09:34 | WPDINTPN ---
Progress Note: A&P Assessment and Plan (1) Acute on chronic respiratory failure with hypoxia and hypercapnia: Code(s): J96.21 - Acute and chronic respiratory failure with hypoxia; J96.22 - Acute and chronic respiratory failure with hypercapnia Status: Acute Assessment and Plan: Multifactorial acute on chronic respiratory failure with hypoxia and hypercarbia secondary to COPD, obesity hypoventilation syndrome, CHF and community-acquired pneumonia CT chest 1. Tree-in-bud opacities as can be seen with atypical infection (including but not limited to: MAC, TB, fungal), ABPA, airways disease, and less likely aspiration. 2. Nodular opacity in right upper lobe should be followed after the appropriate therapy and cessation of symptoms to ensure resolution. 3. Mediastinal lymphadenopathy. 4. Trace bilateral pleural effusions. 5. Mild interstitial edema Patient was given Lasix in ER and on presentation but hold further Lasix due to acute renal failure hemodialysis initiated to remove volume Continue Short course of Solu-Medrol and continue bronchodilators Blood culture are negative till now sputum cultures growing Haemophilus influenzae Continue empiric vancomycin Rocephin and azithromycin workup required pneumonia coverage Chest x-ray and ABG reviewed Ventilator settings reviewed- decrease PEEP to 5 Influenza RSV and COVID negative Urine Legionella was negativeand pneumococcal antigen pending Mycoplasma IgM was low WBC improving. afebrile I will evaluate for weaning trial after hemodialysis session today (2) Chronic obstructive pulmonary disease: Code(s): J44.9 - Chronic obstructive pulmonary disease, unspecified Status: Acute Assessment and Plan: See above (3) Congestive heart failure: Code(s): I50.9 - Heart failure, unspecified Status: Acute Assessment and Plan: hemodialysis to remove fluid Echocardiogram ?1. Left ventricular chamber dimension is normal. ? 2. Left ventricular systolic function is normal, estimated at 60-65%. ? 3. The left ventricular diastolic function is grade I diastolic dysfunction. ? 4. Right ventricular chamber dimension is moderately enlarged. ? 5. Right ventricular systolic function is normal. ? 6. There is moderate tricuspid valve regurgitation, which may be underestimated due to the eccentricity of the jet. ? 7. Dilated inferior vena cava with no collapse upon inspiration consistent with elevated right atrial pressure, 15 mmHg. ? 8. Pulmonary hypertension with an estimated PASP of 59mmHg. (4) Acute kidney injury: Code(s): N17.9 - Acute kidney failure, unspecified Status: Acute Assessment and Plan: Patient presented with normal creatinine but was given Lasix in ER and on presentation due to congestive heart failure Urine electrolytes suggest prerenal. Although echo shows dilated IVC with increased right atrial pressure, patient was given additional IV fluids but creatinine continues to increase Normal CK Unremarkable renal ultrasound 08/30 after discussion with Nephrology, left internal jugular hemodialysis catheter was placed and patient was started on hemodialysis. 3 to fluid was removed 08/31 3.5 L fluid was removed she is scheduled for another dialysis session today (5) Urinary tract infection: Code(s): N39.0 - Urinary tract infection, site not specified Status: Acute Assessment and Plan: UA suggestive of UTI. She has history of UTI with E coli which was not ESBL Currently on Rocephin Urine culture is growing Klebsiella which is sensitive to Rocephin (6) Chronic anticoagulation: Code(s): Z79.01 - FDC (current) use of anticoagulants Status: Acute Assessment and Plan: Patient on Eliquis and she has history of jugular venous thrombosis. I spoke to patient's son and he is not aware of any details about Doppler ultrasound done on this hospitalization were negative (7) GERD (gastroesophageal re
--- NOTE | 2022-09-01 10:01 | PM.PNNEP ---
Progress Note: A&P Assessment and Plan (1) Acute kidney injury: Code(s): N17.9 - Acute kidney failure, unspecified Status: Acute Assessment and Plan: etiology?? (normal renal function on admission) possible drop in BP prior to transfer to [place] ICU?? evaluation to date urine electrolytes prerenal normal CPK renal ultrasound unremarkable no significant response to trial of IVFs given declining urine output and risng BUN + creatinine, initiated on HD (on 08/30/22) HD catheter in place follow electrolytes, volume status, and clearance fluid removal with HD as tolerated by hemodynamics DUF (dry ultrafiltration) yesterday (08/31/22) for further fluid removal had planned HD treatment today but due to several emergent HD cases, will plan HD tomorrow follow trend of repeat labs and urine to assess for renal recovery (2) Acute on chronic respiratory failure with hypoxia and hypercapnia: Code(s): J96.21 - Acute and chronic respiratory failure with hypoxia; J96.22 - Acute and chronic respiratory failure with hypercapnia Status: Acute Assessment and Plan: multifactorial etiology: COPD DOMINIC CHF pneumonia on steroids and bronchodilators follow culture data - sputum cx results noted broad spectrum antibiotic therapy continue fluid removal with dialysis/HD continue ventilator support (3) Congestive heart failure: Code(s): I50.9 - Heart failure, unspecified Status: Acute Assessment and Plan: as noted by testing on admission s/p IV diuresis Echo with diastolic heart failure and pulmonary HTN follow volume status - fluid removal with dialysis/HD (4) Pneumonia: Code(s): J18.9 - Pneumonia, unspecified organism Status: Acute Assessment and Plan: suspected with elevated WBC and productive sputm/secretions prior to intubation follow-up on urinary antigens and sputum/blood cultures - results noted to date see #2 on antibiotics (5) COPD (chronic obstructive pulmonary disease): Code(s): J44.9 - Chronic obstructive pulmonary disease, unspecified Status: Chronic Assessment and Plan: see #2 continue current therapy (6) Urinary tract infection: Code(s): N39.0 - Urinary tract infection, site not specified Status: Acute Assessment and Plan: urinalysis highly suggestive follow-up on urine culture Will continue to follow. Subjective Date/time seen: 09/01/22 10:01 Tolerated dry ultrafiltration (DUF) session yesterday with approximately 3.5L fluid removal; remains intubated/sedated and on mechanical ventilation; making some urine but BUN + creatinine rising without dialytic intervention; remains hemodynamically stable. Exam Narrative: General: WD/WN femnale intubated/sedated and on mechanical ventilaltion Heart: normal S1 and S2; no rub Lungs: coarse breath sound with bibasilar crackles Abdomen: soft, nontender, nondistended, positive bowel sounds Extremities: no cyanosis or clubbing; no edema Skin: no rash Objective Data Vital Signs Vital Signs: Vital Signs Temp Pulse Resp BP Pulse Ox O2 Del Method FiO2 09/01/22 10:00 69 20 115/55 L 92 09/01/22 10:00 69 09/01/22 11:12 68 92 Mechanical Ventilation 40 09/01/22 10:51 69 20 09/01/22 10:51 69 20 09/01/22 08:00 60 20 09/01/22 08:00 60 20 09/01/22 08:00 40 09/01/22 08:00 60 20 94 Mechanical Ventilation 40 09/01/22 08:00 60 09/01/22 08:12 73 97 Mechanical Ventilation 40 09/01/22 08:11 73 20 09/01/22 07:00 65 09/01/22 07:30 98.9 F 60 20 105/57 L 94 09/01/22 04:00 40 09/01/22 06:00 67 20 132/52 L 96 09/01/22 06:00 67 09/01/22 04:27 70 93 Mechanical Ventilation 40 09/01/22 04:00 95 Mechanical Ventilation 40 09/01/22 04:21 65 20 09/01/22 04:20 65 20
--- NOTE | 2022-09-01 10:01 | P.PNNP_ITS ---
Progress Note: A&P Assessment and Plan (1) Acute kidney injury: Code(s): N17.9 - Acute kidney failure, unspecified Status: Acute Assessment and Plan: * etiology?? (normal renal function on admission) * possible drop in BP prior to transfer to [place] ICU?? * evaluation to date * urine electrolytes prerenal * normal CPK * renal ultrasound unremarkable * no significant response to trial of IVFs * given declining urine output and risng BUN + creatinine, initiated on HD (on 08/30/22) * HD catheter in place * follow electrolytes, volume status, and clearance * fluid removal with HD as tolerated by hemodynamics * DUF (dry ultrafiltration) yesterday (08/31/22) for further fluid removal * had planned HD treatment today but due to several emergent HD cases, will plan HD tomorrow * follow trend of repeat labs and urine to assess for renal recovery (2) Acute on chronic respiratory failure with hypoxia and hypercapnia: Code(s): J96.21 - Acute and chronic respiratory failure with hypoxia; J96.22 - Acute and chronic respiratory failure with hypercapnia Status: Acute Assessment and Plan: * multifactorial etiology: * COPD * DOMINIC * CHF * pneumonia * on steroids and bronchodilators * follow culture data - sputum cx results noted * broad spectrum antibiotic therapy * continue fluid removal with dialysis/HD * continue ventilator support (3) Congestive heart failure: Code(s): I50.9 - Heart failure, unspecified Status: Acute Assessment and Plan: * as noted by testing on admission * s/p IV diuresis * Echo with diastolic heart failure and pulmonary HTN * follow volume status - fluid removal with dialysis/HD (4) Pneumonia: Code(s): J18.9 - Pneumonia, unspecified organism Status: Acute Assessment and Plan: * suspected with elevated WBC and productive sputm/secretions prior to intubation * follow-up on urinary antigens and sputum/blood cultures - results noted to date * see #2 * on antibiotics (5) COPD (chronic obstructive pulmonary disease): Code(s): J44.9 - Chronic obstructive pulmonary disease, unspecified Status: Chronic Assessment and Plan: * see #2 * continue current therapy (6) Urinary tract infection: Code(s): N39.0 - Urinary tract infection, site not specified Status: Acute Assessment and Plan: * urinalysis highly suggestive * follow-up on urine culture Will continue to follow. Subjective Date/time seen: 09/01/22 10:01 Tolerated dry ultrafiltration (DUF) session yesterday with approximately 3.5L fluid removal; remains intubated/sedated and on mechanical ventilation; making some urine but BUN + creatinine rising without dialytic intervention; remains hemodynamically stable. Exam Narrative: General: WD/WN femnale intubated/sedated and on mechanical ventilaltion Heart: normal S1 and S2; no rub Lungs: coarse breath sound with bibasilar crackles Abdomen: soft, nontender, nondistended, positive bowel sounds Extremities: no cyanosis or clubbing; no edema Skin: no rash Objective Data Vital Signs Vital Signs: Vital Signs Temp Pulse Resp BP Pulse Ox O2 Del Method FiO2 09/01/22 10:00 69 20 115/55 L 92 09/01/22 10:00 69 09/01/22 11:12 68 92 Mechanical Ventilation 40 09/01/22 10
[2022-09-01] MEDS: MIDAZOLAM 100MG/NS 100ML(*CRX) 100 MG/100 ML BAG IV CONT (10:51)
--- NOTE | 2022-09-01 11:04 | PCFNICU ---
ICU Rounding Note: Pt current nutrition is Vital 1.2 @ goal rate 50 ml/h with flushes 20 ml q 4. 1320 kcals, 82 g protein, 892 ml free water. Total water 1072 ml. Nutrition recommendation: Continue current tube feeding rate and flushes. If volume decrease is desired, could change formula to Nepro @ 35 ml/h for 1386 kcals, 62 g protein, 559 ml free water Last recorded weight is 110.6 kg. Bowel Motility: +1 BM 09/01/21 Labs Reviewed: Hgb 11, Hct 36.5, Na 135, GFR 11, BUN 87, Cre 4.0 Meds Noted: Fentayl, Versed,Reglan Skin: WNL Additional Notes: Dialysis today. Pt remains on ventilator. Discussed with MD, to remain on Vital 1.2 for now. Agree with current orders Following daily in ICU rounds. Will monitor daily in ICU rounds and reassess every Thursday and Thursday..
[2022-09-01 11:53] LABS: Glucose Point of Care 170 mg/dl (65-105)
[2022-09-01] MEDS: ALTEPLASE 2 MG VIAL (CATHFLO) IV PUSH (12:29)
--- NOTE | 2022-09-01 15:52 | PM.IMPN ---
Progress Note: A&P Assessment and Plan (1) Acute on chronic respiratory failure with hypoxia and hypercapnia: Code(s): J96.21 - Acute and chronic respiratory failure with hypoxia; J96.22 - Acute and chronic respiratory failure with hypercapnia Status: Acute Assessment and Plan: Patient reportedly stopped wearing her home O2 a couple of days ago for unclear reasons. She has gotten progressively hypoxic and confused since that time. She was started on BiPAP on arrival to the ER however her pH and pCO2 did not improve and in fact worsened and she was subsequently intubated. Currently on a tidal volume of 500 with a PEEP of 10, rate of 20, and an FiO2 of 60%. Repeat blood gas has significantly improved with an ABG of 7.387, pCO2 76.6, bicarb 45.0. Dr. Welch has been consulted and his input is greatly appreciated. 09/01/2021 interval history: on 08/30 patient had vasular study, ?patient intubated unable to provide any history or review of symptom discussed with the coal inspector suspect most likely secondary to pneumonia possibly atypical pneumonia with MAC, TB or fungal,? patient empirically treated with vancomycin,? ceftriaxone and azithromycin, patient is being diuresed however patient patient is volume overloaded,may need dialysis to remove fluids and on 08/30 coal inspector placed temporary catheter, and on 08/31 patient had dialysis and 3.5L was removed, this will help with volume overload, patient is seen by executive admin, will continue bronchodilator and Solu-Medrol, appreciate intensive and Nephrology will continue to monitor. (2) Chronic obstructive pulmonary disease: Code(s): J44.9 - Chronic obstructive pulmonary disease, unspecified Status: Acute Assessment and Plan: Continue bronchodilators and Solu-Medrol. (3) Pneumonia: Code(s): J18.9 - Pneumonia, unspecified organism Status: Acute Assessment and Plan: She has been afebrile though pneumonia suspected with leukocytosis with left shift, markedly elevated CRP, and reports of thick and green secretions noted in the airway upon intubation. Sputum culture pending. Urinary antigens ordered. Continue broad-spectrum antibiotics. (4) Congestive heart failure: Code(s): I50.9 - Heart failure, unspecified Status: Acute Assessment and Plan: Patient was given furosemide 40 milligrams for pulmonary edema noted on chest x-ray at outside facility. No significant swelling noted on exam today. Continue to monitor volume status with close monitoring of I/O and daily weights. (5) Chronic anticoagulation: Code(s): Z79.01 - long-term (current) use of anticoagulants Status: Acute Assessment and Plan: Continue Eliquis. (6) Gastroesophageal reflux disease: Code(s): K21.9 - Gastro-esophageal reflux disease without esophagitis Status: Acute Assessment and Plan: IV Protonix while NPO. (7) Hyperglycemia: Code(s): R73.9 - Hyperglycemia, unspecified Status: Acute Assessment and Plan: Check fasting glucose and hemoglobin A1c. Initiate sliding scale insulin, Accu-Cheks, and hypoglycemic protocol. (8) Encephalopathy: Code(s): G93.40 - Encephalopathy, unspecified Status: Acute Assessment and Plan: Likely due to a combination of hypoxia, hypercarbia, and infection. Brain CT showed no acute findings. Subjective Date/time seen: 09/01/22 15:52 09/01/2021 interval history: on 08/30 patient had vasular study, ?patient intubated unable to provide any history or review of symptom discussed with the coal inspector suspect most likely secondary to pneumonia possibly atypical pneumonia with MAC, TB or fungal,? patient empirically treated with vancomycin,? ceftriaxone and azithromycin, patient is being diuresed however patient patient is volume overloaded,may need dialysis to remove fluids and on 08/30 coal inspector placed temporary catheter, and on 08/31 amelia
[2022-09-01] MEDS: CENTRAL LINE FLUSH 10 ML IV PUSH ×3 (16:16→21:03)
[2022-09-01 18:08] LABS: Glucose Point of Care 194 mg/dl (65-105)
[2022-09-01] MEDS: cefTRIAXone 2 GM in SODIUM CHLORIDE 0.9% IV 100 ML 200 ML IVPB (21:02)
[2022-09-02] VITALS (42 sets, daily range): BP systolic 101–140; BP diastolic 49–74; PULSE 56–83; RESP 10–23; TEMP 35.3–37.2; O2SAT 91–98
[2022-09-02 00:14] LABS: Glucose Point of Care 138 mg/dl (65-105)
[2022-09-02] MEDS: ALBUTEROL SULFATE NEB 2.5 MG/3 ML INH INHALATION ×4 (02:10→20:03)
[2022-09-02] MEDS: IPRATROPIUM BR 0.02% INH SOLN 0.5 MG/2.5 ML VIAL INHALATION ×4 (02:10→20:04)
[2022-09-02 04:26] LABS: Hematocrit 35.5 % (37.0-47.0); Hemoglobin 10.8 g/dL (12.0-15.0); Mean Corpuscular HGB Conc 30.4 g/dl (32-36); Mean Corpuscular Hemoglobin 28.2 pg (26-34); Mean Corpuscular Volume 92.7 fl (80-100); Mean Platelet Volume 9.4 fl (7.4-10.4); Platelet Count Result 308 k/mm3 (150-375); Red Blood Count 3.83 M/mm3 (4.2-5.4); Red Cell Distribution Width 14.4 % (11.5-14.5)
[2022-09-02 04:39] LABS: Magnesium 2.7 mg/dL (1.6-2.3)
[2022-09-02 04:50] LABS: Anion Gap 7 mmol/L (8-16); Blood Urea Nitrogen 95 mg/dL (7-17); Calcium 9.1 mg/dL (8.4-10.2); Carbon Dioxide 30 mmol/L (22-30); Chloride 106 mmol/L (98-107); Estimated CRCL calculation 18 ml/min; Estimated Glomerular Filt Rate 12; Glucose 130 mg/dL (65-110); Phosphorus 4.9 mg/dL (2.5-4.5); Potassium 3.8 mmol/L (3.4-5.0); Sodium 143 mmol/L (137-145)
[2022-09-02 04:59] LABS: Band Neutrophils Percent 7 % (0-6); Lymphocytes Absolute Manual 3.15 K/mm3 (1.1-4.5); Metamyelocytes Percent 1 %; Monocytes Absolute Manual 0.63 K/mm3 (0.1-0.90); Monocytes Percent Manual 3 % (3-9); Neutrophils Absolute Manual 17.01 K/mm3 (1.7-7.2); Neutrophils Percent Manual 74 % (46-73); Total Cells Counted 100
[2022-09-02 05:00] LABS: Platelet Estimate Adequate (Adequate); Schistocytes None Seen (NORMAL)
[2022-09-02] MEDS: METOCLOPRAMIDE HCL 10 MG TABLET FEED TUBE ×4 (05:54→17:08)
[2022-09-02] MEDS: CENTRAL LINE FLUSH 10 ML IV PUSH ×4 (05:56→22:00)
[2022-09-02 06:03] LABS: Alveolar/Arterial O2 Gradient 190.6 mmHg; Base Excess ABG 6.6 mEq/l (+/-2.0); Fractional Inspired Oxygen 45 %; HCO3 ABG 32.9 mEq/l (22.0-26.0); Oxygen Saturation ABG 92.7 % (95.0-100.0); Oxyhemoglobin 91.9 % THb (90.0-100.0); PCO2 ABG 55.9 mmHg (35.0-45.0); PO2 ABG 66.7 mmHg (80.0-100.0); PO2 FiO2 Ratio Arterial Blood 1.48 %; Total Hemoglobin 11.6 g/dL (12.0-18.0); pH ABG 7.388 (7.350-7.450)
[2022-09-02 06:04] LABS: Arterial Blood Gas PEEP 5 cmH2O; Arterial Blood Gas Tidal Volume 450 ml; Arterial Blood Gas Vent Mode CMV; Arterial Blood Gas Ventilator rate 20 /MIN; Device VENTILATOR; Modified Allen's Test Pass; Site Drawn LEFT RADIAL
--- NOTE | 2022-09-02 08:56 | PM.PNNEP ---
Progress Note: A&P Assessment and Plan (1) Acute kidney injury: Code(s): N17.9 - Acute kidney failure, unspecified Status: Acute Assessment and Plan: etiology?? (normal renal function on admission) possible drop in BP prior to transfer to [place] ICU?? evaluation to date urine electrolytes prerenal normal CPK renal ultrasound unremarkable no significant response to trial of IVFs given declining urine output and risng BUN + creatinine, initiated on HD (on 08/30/22) HD catheter in place follow electrolytes, volume status, and clearance fluid removal with HD as tolerated by hemodynamics DUF (dry ultrafiltration) on 08/31/22 for further fluid removal HD today follow trend of repeat labs and urine to assess for renal recovery (2) Acute on chronic respiratory failure with hypoxia and hypercapnia: Code(s): J96.21 - Acute and chronic respiratory failure with hypoxia; J96.22 - Acute and chronic respiratory failure with hypercapnia Status: Acute Assessment and Plan: multifactorial etiology: COPD DOMINIC CHF pneumonia on steroids and bronchodilators follow culture data - sputum cx results noted broad spectrum antibiotic therapy continue fluid removal with dialysis/HD continue ventilator support (3) Congestive heart failure: Code(s): I50.9 - Heart failure, unspecified Status: Acute Assessment and Plan: as noted by testing on admission s/p IV diuresis Echo with diastolic heart failure and pulmonary HTN follow volume status - fluid removal with dialysis/HD (4) Pneumonia: Code(s): J18.9 - Pneumonia, unspecified organism Status: Acute Assessment and Plan: suspected with elevated WBC and productive sputm/secretions prior to intubation follow-up on urinary antigens and sputum/blood cultures - results noted to date see #2 on antibiotics (5) COPD (chronic obstructive pulmonary disease): Code(s): J44.9 - Chronic obstructive pulmonary disease, unspecified Status: Chronic Assessment and Plan: see #2 continue current therapy (6) Urinary tract infection: Code(s): N39.0 - Urinary tract infection, site not specified Status: Acute Assessment and Plan: urine culture with Klebsiella on antibiotics Will continue to follow. Subjective Date/time seen: 09/02/22 08:56 Tolerating hemodialysis treatment at the time of my visit (seen on HD at 8:45AM); remains intubated and on mechanical ventilation; making a bit more urine in the last 24 - 48 hours; opens eyes at times; remains hemodynamically stable. Exam Narrative: General: WD/WN femnale intubated and on mechanical ventilaltion Heart: normal S1 and S2; no rub Lungs: coarse breath sound with bibasilar crackles Abdomen: soft, nontender, nondistended, positive bowel sounds Extremities: no cyanosis or clubbing; no edema Skin: no nodules Objective Data Vital Signs Vital Signs: Vital Signs Temp Pulse Resp BP Pulse Ox O2 Del Method FiO2 09/02/22 08:45 74 111/54 L 09/02/22 08:00 62 09/02/22 08:30 70 108/49 L 09/02/22 07:30 45 09/02/22 07:30 98.5 F 63 20 126/58 L 91 09/02/22 08:15 73 106/74 09/02/22 08:00 65 120/49 L 09/02/22 07:45 63 111/50 L 09/02/22 06:53 58 L 20 09/02/22 06:00 57 L 20 09/02/22 06:00 57 L 20 09/02/22 06:00 60 20 124/60 92 09/02/22 06:00 60 09/02/22 05:05 59 L 95 Mechanical Ventilation 45 09/02/22 04:31 45 09/02/22 04:00 65 09/02/22 04:00 40 09/02/22 04:00 92 Mechanical Ventilation 40 09/02/22 04:25 64 20 09/02/22 04:25 64 20 09/02/22 04:00 98.7 F 63 20 117/50 L 92 09/02/22 02:12 59 L 95 Mechanical Ventilation 40 09/02/22 02:20 59 L 20 09/02/22 02:10 60 20 09/02/22 02:04 59 L 20 09/02/22 02:04
--- NOTE | 2022-09-02 08:56 | P.PNNP_ITS ---
Progress Note: A&P Assessment and Plan (1) Acute kidney injury: Code(s): N17.9 - Acute kidney failure, unspecified Status: Acute Assessment and Plan: * etiology?? (normal renal function on admission) * possible drop in BP prior to transfer to [place] ICU?? * evaluation to date * urine electrolytes prerenal * normal CPK * renal ultrasound unremarkable * no significant response to trial of IVFs * given declining urine output and risng BUN + creatinine, initiated on HD (on 08/30/22) * HD catheter in place * follow electrolytes, volume status, and clearance * fluid removal with HD as tolerated by hemodynamics * DUF (dry ultrafiltration) on 08/31/22 for further fluid removal * HD today * follow trend of repeat labs and urine to assess for renal recovery (2) Acute on chronic respiratory failure with hypoxia and hypercapnia: Code(s): J96.21 - Acute and chronic respiratory failure with hypoxia; J96.22 - Acute and chronic respiratory failure with hypercapnia Status: Acute Assessment and Plan: * multifactorial etiology: * COPD * DOMINIC * CHF * pneumonia * on steroids and bronchodilators * follow culture data - sputum cx results noted * broad spectrum antibiotic therapy * continue fluid removal with dialysis/HD * continue ventilator support (3) Congestive heart failure: Code(s): I50.9 - Heart failure, unspecified Status: Acute Assessment and Plan: * as noted by testing on admission * s/p IV diuresis * Echo with diastolic heart failure and pulmonary HTN * follow volume status - fluid removal with dialysis/HD (4) Pneumonia: Code(s): J18.9 - Pneumonia, unspecified organism Status: Acute Assessment and Plan: * suspected with elevated WBC and productive sputm/secretions prior to intubation * follow-up on urinary antigens and sputum/blood cultures - results noted to date * see #2 * on antibiotics (5) COPD (chronic obstructive pulmonary disease): Code(s): J44.9 - Chronic obstructive pulmonary disease, unspecified Status: Chronic Assessment and Plan: * see #2 * continue current therapy (6) Urinary tract infection: Code(s): N39.0 - Urinary tract infection, site not specified Status: Acute Assessment and Plan: * urine culture with Klebsiella * on antibiotics Will continue to follow. Subjective Date/time seen: 09/02/22 08:56 Tolerating hemodialysis treatment at the time of my visit (seen on HD at 8:45AM); remains intubated and on mechanical ventilation; making a bit more urine in the last 24 - 48 hours; opens eyes at times; remains hemodynamically stable. Exam Narrative: General: WD/WN femnale intubated and on mechanical ventilaltion Heart: normal S1 and S2; no rub Lungs: coarse breath sound with bibasilar crackles Abdomen: soft, nontender, nondistended, positive bowel sounds Extremities: no cyanosis or clubbing; no edema Skin: no nodules Objective Data Vital Signs Vital Signs: Vital Signs Temp Pulse Resp BP Pulse Ox O2 Del Method FiO2 09/02/22 08:45 74 111/54 L 09/02/22 08:00 62 09/02/22 08:30 70 108/49 L 09/02/22 07:30 45 09/02/22 07:30 98.5 F 63 20 126/58 L 91 09/02/22 08:15 73 106/74 09/02/22 08:00 65 120/49 L
--- NOTE | 2022-09-02 09:57 | WPDINTPN ---
Progress Note: A&P Assessment and Plan (1) Acute on chronic respiratory failure with hypoxia and hypercapnia: Code(s): J96.21 - Acute and chronic respiratory failure with hypoxia; J96.22 - Acute and chronic respiratory failure with hypercapnia Status: Acute Assessment and Plan: Multifactorial acute on chronic respiratory failure with hypoxia and hypercarbia secondary to COPD, obesity hypoventilation syndrome, CHF and community-acquired pneumonia 08/27/22 CT chest 1. Tree-in-bud opacities as can be seen with atypical infection (including but not limited to: MAC, TB, fungal), ABPA, airways disease, and less likely aspiration. 2. Nodular opacity in right upper lobe should be followed after the appropriate therapy and cessation of symptoms to ensure resolution. 3. Mediastinal lymphadenopathy. 4. Trace bilateral pleural effusions. 5. Mild interstitial edema -08/30/2022 hemodialysis initiated to remove volume -steroids were discontinued -continue bronchodilators -08/27/22: Blood culture are negative till now -08/27/22: sputum cultures growing Haemophilus influenzae -vancomycin discontinued on 09/01/2022 -currently ceftriaxone azithromycin (#7) -chest x-ray this morning: Diffuse lung disease with worsening at the lung bases, consistent with pneumonia versus pulmonary edema. Small left pleural effusion. -patient was switched to ASV mode of ventilation is more comfortable on this -Influenza RSV and COVID negative - Urine Legionella was negative and pneumococcal antigen pending Mycoplasma IgM was low WBC count increase likely related to pneumonia, steroids -once patient is done with her dialysis today, will place her on SBT and evaluate for extubation (2) Chronic obstructive pulmonary disease: Code(s): J44.9 - Chronic obstructive pulmonary disease, unspecified Status: Acute Assessment and Plan: Continue mechanical ventilation, antibiotics and bronchodilators -off steroids (3) Congestive heart failure: Code(s): I50.9 - Heart failure, unspecified Status: Acute Assessment and Plan: hemodialysis to remove fluid Echocardiogram ?1. Left ventricular chamber dimension is normal. ? 2. Left ventricular systolic function is normal, estimated at 60-65%. ? 3. The left ventricular diastolic function is grade I diastolic dysfunction. ? 4. Right ventricular chamber dimension is moderately enlarged. ? 5. Right ventricular systolic function is normal. ? 6. There is moderate tricuspid valve regurgitation, which may be underestimated due to the eccentricity of the jet. ? 7. Dilated inferior vena cava with no collapse upon inspiration consistent with elevated right atrial pressure, 15 mmHg. ? 8. Pulmonary hypertension with an estimated PASP of 59mmHg. (4) Acute kidney injury: Code(s): N17.9 - Acute kidney failure, unspecified Status: Acute Assessment and Plan: Patient presented with normal creatinine but was given Lasix in ER and on presentation due to congestive heart failure Urine electrolytes suggest prerenal. Although echo shows dilated IVC with increased right atrial pressure, patient was given additional IV fluids but creatinine continuesdto increase Normal CK Unremarkable renal ultrasound 08/30 after discussion with Nephrology, left internal jugular hemodialysis catheter was placed and patient was started on hemodialysis with removal of 3 L of fluid 08/31 3.5 L fluid was removed 09/02: Getting dialyzed again today -urology following (5) Urinary tract infection: Code(s): N39.0 - Urinary tract infection, site not specified Status: Acute Assessment and Plan: UA suggestive of UTI. She has history of E coli UTI -08/27/2022: Urine culture is growing Klebsiella which is pansensitive -continue ceftriaxone (6) Chronic anticoagulation: Code(s): Z79.01 - retirement (current) use of anticoagulants Status: Acute Assessment and Plan: Patient on Eliquis a
[2022-09-02] MEDS: MINERAL OIL/WHITE PETROLATUM OINTMENT 1 APPLIC EACH EYE ×2 (11:23→20:34)
[2022-09-02] MEDS: APIXABAN 2.5 MG TABLET FEED TUBE ×2 (11:23→20:34)
[2022-09-02] MEDS: ESCITALOPRAM OXALATE 10 MG TABLET 20 MG PO (11:24)
[2022-09-02] MEDS: PANTOPRAZOLE SODIUM IV 40 MG VIAL IV PUSH (11:24)
[2022-09-02 11:28] LABS: Glucose Point of Care 142 mg/dl (65-105)
--- NOTE | 2022-09-02 11:44 | PCNFU ---
Nutrition Follow-Up Complete: Inadequate Oral Intake as related to mechanical ventilation as evidence by NPO. Goal: Meet estimated nutritional needs Patient is progressing towards goal. We will continue current goal. Pt current nutrition is Vital AF 1.2 at 50 ml/hr. Last recorded weight is 106.8 kg. Bowel Motility:+Bm reported 09/02 Labs Reviewed:Mg 2.7,GFR 12, BUN 95, Cr 3.7,Hct 35.5 Meds Noted:Reglan, Fentanyl, Versed, Rocephin, Zithromax,Eliquis, Protonix. Skin: WNL Additional Notes: Patient remains on mechanical vent. Tube feedings being tolerated at goal rate, providing 1320 kcals/82 gms protein/892 ml water. Flush 30 ml q 4 hours. Plans for breathing trial after dialysis today. Will monitor daily in ICU rounds and reassess every Thursday and Thursday.
[2022-09-02] MEDS: MIDAZOLAM 100MG/NS 100ML(*CRX) 100 MG/100 ML BAG IV CONT (13:35)
[2022-09-02] MEDS: FENTANYL 2,500MCG/NS250ML(*CRX 2,500 MCG/250 ML BAG 7.5 MCG IV CONT (13:36)
--- NOTE | 2022-09-02 17:49 | PM.IMPN ---
Progress Note: A&P Assessment and Plan (1) Acute on chronic respiratory failure with hypoxia and hypercapnia: Code(s): J96.21 - Acute and chronic respiratory failure with hypoxia; J96.22 - Acute and chronic respiratory failure with hypercapnia Status: Acute Assessment and Plan: Patient reportedly stopped wearing her home O2 a couple of days ago for unclear reasons. She has gotten progressively hypoxic and confused since that time. She was started on BiPAP on arrival to the ER however her pH and pCO2 did not improve and in fact worsened and she was subsequently intubated. Currently on a tidal volume of 500 with a PEEP of 10, rate of 20, and an FiO2 of 60%. Repeat blood gas has significantly improved with an ABG of 7.387, pCO2 76.6, bicarb 45.0. Dr. Welch has been consulted and his input is greatly appreciated. 09/02/2021 interval history: on 08/30 patient had vasular study, ?patient intubated unable to provide any history or review of symptom discussed with the plasterer rough suspect most likely secondary to pneumonia possibly atypical pneumonia with MAC, TB or fungal,? patient empirically treated with vancomycin,? ceftriaxone and azithromycin, patient is being diuresed however patient patient is volume overloaded,may need dialysis to remove fluids and on 08/30 plasterer rough placed temporary catheter, and on 08/31 patient had dialysis and 3.5L was removed, this will help with volume overload, today discussed with plasterer rough patient clinical symptoms are improved sedation is ready may give weaning trial tomorrow, patient is seen by gyro compass tester, will have hemodialysis today, will continue bronchodilator and Solu-Medrol, appreciate intensive and Nephrology will continue to monitor. (2) Chronic obstructive pulmonary disease: Code(s): J44.9 - Chronic obstructive pulmonary disease, unspecified Status: Acute Assessment and Plan: Continue bronchodilators and Solu-Medrol. (3) Pneumonia: Code(s): J18.9 - Pneumonia, unspecified organism Status: Acute Assessment and Plan: She has been afebrile though pneumonia suspected with leukocytosis with left shift, markedly elevated CRP, and reports of thick and green secretions noted in the airway upon intubation. Sputum culture pending. Urinary antigens ordered. Continue broad-spectrum antibiotics. (4) Congestive heart failure: Code(s): I50.9 - Heart failure, unspecified Status: Acute Assessment and Plan: Patient was given furosemide 40 milligrams for pulmonary edema noted on chest x-ray at outside facility. No significant swelling noted on exam today. Continue to monitor volume status with close monitoring of I/O and daily weights. (5) Chronic anticoagulation: Code(s): Z79.01 - care home (current) use of anticoagulants Status: Acute Assessment and Plan: Continue Eliquis. (6) Gastroesophageal reflux disease: Code(s): K21.9 - Gastro-esophageal reflux disease without esophagitis Status: Acute Assessment and Plan: IV Protonix while NPO. (7) Hyperglycemia: Code(s): R73.9 - Hyperglycemia, unspecified Status: Acute Assessment and Plan: Check fasting glucose and hemoglobin A1c. Initiate sliding scale insulin, Accu-Cheks, and hypoglycemic protocol. (8) Encephalopathy: Code(s): G93.40 - Encephalopathy, unspecified Status: Acute Assessment and Plan: Likely due to a combination of hypoxia, hypercarbia, and infection. Brain CT showed no acute findings. Subjective Date/time seen: 09/02/22 17:49 09/02/2021 interval history: on 08/30 patient had vasular study, ?patient intubated unable to provide any history or review of symptom discussed with the plasterer rough suspect most likely secondary to pneumonia possibly atypical pneumonia with MAC, TB or fungal,? patient empirically treated with vancomycin,? ceftriaxone and azithromycin, patient is being diuresed
[2022-09-02 18:10] LABS: Glucose Point of Care 136 mg/dl (65-105)
[2022-09-02 20:09] LABS: Pneumococcal Antigen Urine Not Detected (Not Detected)
[2022-09-02] MEDS: cefTRIAXone 2 GM in SODIUM CHLORIDE 0.9% IV 100 ML 200 ML IVPB (22:20)
[2022-09-02 23:37] LABS: Glucose Point of Care 128 mg/dl (65-105)
[2022-09-03] VITALS (36 sets, daily range): BP systolic 99–136; BP diastolic 46–62; PULSE 70–94; RESP 15–23; TEMP 36.9–37.9; O2SAT 92–97
[2022-09-03] MEDS: METOCLOPRAMIDE HCL 10 MG TABLET FEED TUBE ×4 (00:05→23:52)
[2022-09-03] MEDS: IPRATROPIUM BR 0.02% INH SOLN 0.5 MG/2.5 ML VIAL INHALATION ×4 (02:35→20:50)
[2022-09-03] MEDS: ALBUTEROL SULFATE NEB 2.5 MG/3 ML INH INHALATION ×4 (02:35→20:50)
[2022-09-03 05:41] LABS: Alveolar/Arterial O2 Gradient 197.1 mmHg; Base Excess ABG -0.8 mEq/l (+/-2.0); Carboxyhemoglobin 0.3 % THb (0-2.0); Fractional Inspired Oxygen 45 %; HCO3 ABG 25.3 mEq/l (22.0-26.0); Methemoglobin ABG 0.3 %THb (0-1.5); Oxygen Content ABG 15.9 %vol (16.0-22.0); Oxygen Saturation ABG 92.9 % (95.0-100.0); Oxyhemoglobin 92.6 % THb (90.0-100.0); PCO2 ABG 47.7 mmHg (35.0-45.0); PO2 ABG 69.5 mmHg (80.0-100.0); PO2 FiO2 Ratio Arterial Blood 1.54 %; Reduced Hemoglobin 6.8 %THb (0-5.0); Total Hemoglobin 12.2 g/dL (12.0-18.0); pH ABG 7.342 (7.350-7.450)
[2022-09-03 05:43] LABS: Device VENTILATOR; Modified Allen's Test Pass; Site Drawn RIGHT RADIAL
[2022-09-03 05:44] LABS: Arterial Blood Gas PEEP 5 cmH2O; Arterial Blood Gas Tidal Volume 450 ml; Arterial Blood Gas Vent Mode CMV; Arterial Blood Gas Ventilator rate 20 /MIN
[2022-09-03] MEDS: CENTRAL LINE FLUSH 10 ML IV PUSH ×4 (06:35→21:25)
[2022-09-03 06:49] LABS: Hematocrit 39.6 % (37.0-47.0); Hemoglobin 11.9 g/dL (12.0-15.0); Mean Corpuscular HGB Conc 30.1 g/dl (32-36); Mean Corpuscular Hemoglobin 28.6 pg (26-34); Mean Corpuscular Volume 95.2 fl (80-100); Mean Platelet Volume 9.3 fl (7.4-10.4); Platelet Count Result 307 k/mm3 (150-375); Red Blood Count 4.16 M/mm3 (4.2-5.4); Red Cell Distribution Width 14.4 % (11.5-14.5); White Blood Count 23.4 K/mm3 (4.5-10.0)
[2022-09-03 07:06] LABS: Alanine Aminotransferase 38 U/L (6-35); Albumin Level 3.8 g/dL (3.5-5.1); Alkaline Phosphatase 87 U/L (38-126); Anion Gap 7 mmol/L (8-16); Aspartate Amino Transferase 29 U/L (14-36); Bilirubin,Total 0.7 mg/dL (0.2-1.3); Blood Urea Nitrogen 63 mg/dL (7-17); Calcium 9.5 mg/dL (8.4-10.2); Carbon Dioxide 27 mmol/L (22-30); Chloride 106 mmol/L (98-107); Estimated CRCL calculation 25 ml/min; Estimated Glomerular Filt Rate 19; Glucose 133 mg/dL (65-110); Magnesium 2.4 mg/dL (1.6-2.3); Phosphorus 6.1 mg/dL (2.5-4.5); Potassium 4.9 mmol/L (3.4-5.0); Sodium 140 mmol/L (137-145)
[2022-09-03 07:17] LABS: Band Neutrophils Percent 5 % (0-6); Lymphocytes Absolute Manual 4.91 K/mm3 (1.1-4.5); Lymphocytes Percent Manual 21 % (18-44); Monocytes Absolute Manual 1.63 K/mm3 (0.1-0.90); Monocytes Percent Manual 7 % (3-9); Neutrophils Percent Manual 54 % (46-73); Total Cells Counted 100
[2022-09-03 07:18] LABS: Eosinophils Percent Manual 3 % (0-4); Metamyelocytes Percent 5 %; Myelocytes Percent 5 %; Platelet Estimate Adequate (Adequate); Schistocytes None Seen (NORMAL)
[2022-09-03] MEDS: MINERAL OIL/WHITE PETROLATUM OINTMENT 1 APPLIC EACH EYE ×2 (08:03→20:27)
[2022-09-03] MEDS: APIXABAN 2.5 MG TABLET FEED TUBE ×2 (08:03→20:27)
[2022-09-03] MEDS: ESCITALOPRAM OXALATE 10 MG TABLET 20 MG PO (08:03)
[2022-09-03] MEDS: PANTOPRAZOLE SODIUM IV 40 MG VIAL IV PUSH (08:03)
[2022-09-03] MEDS: FUROSEMIDE INJ 40 MG/4 ML VIAL IV PUSH (10:47)
--- NOTE | 2022-09-03 11:17 | WPDINTPN ---
Progress Note: A&P Assessment and Plan (1) Acute on chronic respiratory failure with hypoxia and hypercapnia: Code(s): J96.21 - Acute and chronic respiratory failure with hypoxia; J96.22 - Acute and chronic respiratory failure with hypercapnia Status: Acute Assessment and Plan: Multifactorial acute on chronic respiratory failure with hypoxia and hypercarbia secondary to COPD, obesity hypoventilation syndrome, CHF and community-acquired pneumonia 08/27/22 CT chest 1. Tree-in-bud opacities as can be seen with atypical infection (including but not limited to: MAC, TB, fungal), ABPA, airways disease, and less likely aspiration. 2. Nodular opacity in right upper lobe should be followed after the appropriate therapy and cessation of symptoms to ensure resolution. 3. Mediastinal lymphadenopathy. 4. Trace bilateral pleural effusions. 5. Mild interstitial edema -08/30/2022 hemodialysis initiated to remove volume -steroids were discontinued -continue bronchodilators -08/27/22: Blood culture are negative till now -08/27/22: sputum cultures growing Haemophilus influenzae -vancomycin discontinued on 09/01/2022 -currently ceftriaxone azithromycin (#7) -chest x-ray this morning: Stable airspace opacities in right lung and left lower lung zone, consistent with pneumonia.. Stable small left pleural effusion. -patient tolerated ASV mode of ventilation on 09/02/2022 -switched to pressure support ventilation 05/28 this morning, will place her on 03/28 and evaluate for extubation -Influenza RSV and COVID negative - Urine Legionella and pneumococcal antigen are negative Mycoplasma IgM was low WBC count increase likely related to pneumonia, steroids -patient was dialyzed on 08/30, 08/31, 09/02 -currently in negative 1400 mL in fluid balance since admission -will give a dose of Lasix this morning (2) Chronic obstructive pulmonary disease: Code(s): J44.9 - Chronic obstructive pulmonary disease, unspecified Status: Acute Assessment and Plan: Continue mechanical ventilation, antibiotics and bronchodilators -off steroids (3) Congestive heart failure: Code(s): I50.9 - Heart failure, unspecified Status: Acute Assessment and Plan: hemodialysis to remove fluid Echocardiogram ?1. Left ventricular chamber dimension is normal. ? 2. Left ventricular systolic function is normal, estimated at 60-65%. ? 3. The left ventricular diastolic function is grade I diastolic dysfunction. ? 4. Right ventricular chamber dimension is moderately enlarged. ? 5. Right ventricular systolic function is normal. ? 6. There is moderate tricuspid valve regurgitation, which may be underestimated due to the eccentricity of the jet. ? 7. Dilated inferior vena cava with no collapse upon inspiration consistent with elevated right atrial pressure, 15 mmHg. ? 8. Pulmonary hypertension with an estimated PASP of 59mmHg. (4) Acute kidney injury: Code(s): N17.9 - Acute kidney failure, unspecified Status: Acute Assessment and Plan: Patient presented with normal creatinine but was given Lasix in ER and on presentation due to congestive heart failure Urine electrolytes suggest prerenal. Although echo shows dilated IVC with increased right atrial pressure, patient was given additional IV fluids but creatinine continuesdto increase Normal CK Unremarkable renal ultrasound - 08/30:: After discussion with Nephrology, left internal jugular hemodialysis catheter was placed and patient was started on hemodialysis with removal of 3 L of fluid - 08/31: 3.5 L fluid was removed - 09/02: 3000 mL fluid removal -nephrology following (5) Urinary tract infection: Code(s): N39.0 - Urinary tract infection, site not specified Status: Acute Assessment and Plan: UA suggestive of UTI. She has history of E coli UTI -08/27/2022: Urine culture is growing Klebsiella which is pansensitive -continue ceftriaxone (6) Chronic anticoagulation:
--- NOTE | 2022-09-03 11:36 | PCFNICU ---
ICU Rounding Note: Pt current nutrition is Vital AF 1.2 at 50 ml/hr. Last recorded weight is 105.4 kg. Bowel Motility:+BM reported 09/02 Labs Reviewed:Mg 2.4,BUN 63, Cr 2.5,Glu 133 Meds Noted:Reglan,Rocephin, Zithromax,Eliquis, Protonix Skin: WNL Additional Notes: Patient remains on mechanical vent. Tube feedings on hold for possible extubated. Plans for breathing trial today. Following daily in ICU rounds. Will monitor daily in ICU rounds and reassess every Thursday and Thursday.
[2022-09-03 11:51] LABS: Alveolar/Arterial O2 Gradient 193.7 mmHg; Base Excess ABG 0.1 mEq/l (+/-2.0); Fractional Inspired Oxygen 45 %; HCO3 ABG 26.9 mEq/l (22.0-26.0); Oxygen Content ABG 16.6 %vol (16.0-22.0); Oxygen Saturation ABG 91.6 % (95.0-100.0); Oxyhemoglobin 91.6 % THb (90.0-100.0); PCO2 ABG 53.1 mmHg (35.0-45.0); PO2 ABG 66.8 mmHg (80.0-100.0); PO2 FiO2 Ratio Arterial Blood 1.48 %; Total Hemoglobin 12.9 g/dL (12.0-18.0); pH ABG 7.323 (7.350-7.450)
[2022-09-03 11:52] LABS: Device CPAP; Modified Allen's Test Pass; Site Drawn RIGHT RADIAL
[2022-09-03 11:53] LABS: CPAP 5 cmH2O
--- NOTE | 2022-09-03 11:54 | P.PNNP_ITS ---
Progress Note: A&P Assessment and Plan (1) Acute kidney injury: Code(s): N17.9 - Acute kidney failure, unspecified Status: Acute Assessment and Plan: * etiology?? (normal renal function on admission) * evaluation to date * urine electrolytes prerenal * normal CPK * renal ultrasound unremarkable * no significant response to trial of IVFs * given declining urine output and risng BUN + creatinine, initiated on HD (on 08/30/22) * HD catheter in place * follow electrolytes, volume status, and clearance * fluid removal with HD as tolerated by hemodynamics * plan HD tomorrow * follow trend of repeat labs and urine to assess for renal recovery (2) Acute on chronic respiratory failure with hypoxia and hypercapnia: Code(s): J96.21 - Acute and chronic respiratory failure with hypoxia; J96.22 - Acute and chronic respiratory failure with hypercapnia Status: Acute Assessment and Plan: * multifactorial etiology: * COPD * DOMINIC * CHF * pneumonia * on steroids and bronchodilators * follow culture data - sputum cx results noted * broad spectrum antibiotic therapy * continue fluid removal with dialysis/HD * continue ventilator support (3) Congestive heart failure: Code(s): I50.9 - Heart failure, unspecified Status: Acute Assessment and Plan: * as noted by testing on admission * s/p IV diuresis * Echo with diastolic heart failure and pulmonary HTN * follow volume status - fluid removal with dialysis/HD (4) Pneumonia: Code(s): J18.9 - Pneumonia, unspecified organism Status: Acute Assessment and Plan: * suspected with elevated WBC and productive sputm/secretions prior to intubation * follow-up on urinary antigens and sputum/blood cultures - results noted to date * see #2 * on antibiotics (5) COPD (chronic obstructive pulmonary disease): Code(s): J44.9 - Chronic obstructive pulmonary disease, unspecified Status: Chronic Assessment and Plan: * see #2 * continue current therapy (6) Urinary tract infection: Code(s): N39.0 - Urinary tract infection, site not specified Status: Acute Assessment and Plan: * urine culture with Klebsiella * on antibiotics Will continue to follow. Subjective Date/time seen: 09/03/22 11:54 Tolerated hemodialysis treatment yesterday without any issues or problems; remains intubated and on mechanical ventilation; opens eyes and follows simple commands; remains hemodynamically stable; appears to be making more urine output as well. Exam Narrative: General: WD/WN female intubated and on mechanical ventilaltion Heart: normal S1 and S2; no rub Lungs: coarse breath sound with bibasilar crackles Abdomen: soft, nontender, nondistended, positive bowel sounds Extremities: no cyanosis or clubbing; no edema Skin: warm and dry Objective Data Vital Signs Vital Signs: Vital Signs Temp Pulse Resp BP Pulse Ox O2 Del Method FiO2 09/03/22 12:00 98.6 F 82 18 136/60 93 09/03/22 12:00 45 09/03/22 12:32 88 17 09/03/22 12:00 97 Mechanical Ventilation 55 09/03/22 12:00 83 09/03/22 12:03 82 94 Mechanical Ventilation 45 09/03/22 12:10 81 16 09/03/22 10:00 82 126/60 09/03/22 10:00 78
--- NOTE | 2022-09-03 11:54 | PM.PNNEP ---
Progress Note: A&P Assessment and Plan (1) Acute kidney injury: Code(s): N17.9 - Acute kidney failure, unspecified Status: Acute Assessment and Plan: etiology?? (normal renal function on admission) evaluation to date urine electrolytes prerenal normal CPK renal ultrasound unremarkable no significant response to trial of IVFs given declining urine output and risng BUN + creatinine, initiated on HD (on 08/30/22) HD catheter in place follow electrolytes, volume status, and clearance fluid removal with HD as tolerated by hemodynamics plan HD tomorrow follow trend of repeat labs and urine to assess for renal recovery (2) Acute on chronic respiratory failure with hypoxia and hypercapnia: Code(s): J96.21 - Acute and chronic respiratory failure with hypoxia; J96.22 - Acute and chronic respiratory failure with hypercapnia Status: Acute Assessment and Plan: multifactorial etiology: COPD DOMINIC CHF pneumonia on steroids and bronchodilators follow culture data - sputum cx results noted broad spectrum antibiotic therapy continue fluid removal with dialysis/HD continue ventilator support (3) Congestive heart failure: Code(s): I50.9 - Heart failure, unspecified Status: Acute Assessment and Plan: as noted by testing on admission s/p IV diuresis Echo with diastolic heart failure and pulmonary HTN follow volume status - fluid removal with dialysis/HD (4) Pneumonia: Code(s): J18.9 - Pneumonia, unspecified organism Status: Acute Assessment and Plan: suspected with elevated WBC and productive sputm/secretions prior to intubation follow-up on urinary antigens and sputum/blood cultures - results noted to date see #2 on antibiotics (5) COPD (chronic obstructive pulmonary disease): Code(s): J44.9 - Chronic obstructive pulmonary disease, unspecified Status: Chronic Assessment and Plan: see #2 continue current therapy (6) Urinary tract infection: Code(s): N39.0 - Urinary tract infection, site not specified Status: Acute Assessment and Plan: urine culture with Klebsiella on antibiotics Will continue to follow. Subjective Date/time seen: 09/03/22 11:54 Tolerated hemodialysis treatment yesterday without any issues or problems; remains intubated and on mechanical ventilation; opens eyes and follows simple commands; remains hemodynamically stable; appears to be making more urine output as well. Exam Narrative: General: WD/WN female intubated and on mechanical ventilaltion Heart: normal S1 and S2; no rub Lungs: coarse breath sound with bibasilar crackles Abdomen: soft, nontender, nondistended, positive bowel sounds Extremities: no cyanosis or clubbing; no edema Skin: warm and dry Objective Data Vital Signs Vital Signs: Vital Signs Temp Pulse Resp BP Pulse Ox O2 Del Method FiO2 09/03/22 12:00 98.6 F 82 18 136/60 93 09/03/22 12:00 45 09/03/22 12:32 88 17 09/03/22 12:00 97 Mechanical Ventilation 55 09/03/22 12:00 83 09/03/22 12:03 82 94 Mechanical Ventilation 45 09/03/22 12:10 81 16 09/03/22 10:00 82 126/60 09/03/22 10:00 78 09/03/22 10:08 84 19 09/03/22 10:08 84 19 09/03/22 09:03 79 15 09/03/22 09:02 79 15 09/03/22 08:00 98.6 F 76 16 123/57 L 94 09/03/22 08:29 78 16 09/03/22 08:26 78 95 Mechanical Ventilation 45 09/03/22 08:23 84 17 09/03/22 08:00 45 09/03/22 08:00 94 Mechanical Ventilation 55 09/03/22 08:00 76 09/03/22 08:00 78 16 09/03/22 08:00 78 18 09/03/22 06:00 88 16 105/62 95 09/03/22 06:00 88 09/03/22 05:22 79 95 Mechanical Ventilation 45 09/03/22 04:00 20 94 Mechanical Ventilation 55 09/03/22 04:00 55 09/03/22 04:00 98.9 F 7
[2022-09-03 11:58] LABS: Glucose Point of Care 128 mg/dl (65-105)
[2022-09-03] MEDS: dexmedeTOMIDine 400 MCG/100 ML 400 MCG/100 ML BAG 5.27 MCG IV CONT (12:10)
[2022-09-03 17:12] LABS: Glucose Point of Care 153 mg/dl (65-105)
[2022-09-03] MEDS: dexmedeTOMIDine 400 MCG/100 ML 400 MCG/100 ML BAG 13.18 MCG IV CONT (21:20)
[2022-09-03] MEDS: cefTRIAXone 2 GM in SODIUM CHLORIDE 0.9% IV 100 ML 200 ML IVPB (21:24)
[2022-09-03 23:58] LABS: Glucose Point of Care 199 mg/dl (65-105)
[2022-09-04] VITALS (57 sets, daily range): BP systolic 82–125; BP diastolic 45–88; PULSE 69–97; RESP 13–28; TEMP 36–37.6; O2SAT 93–99
[2022-09-04] MEDS: IPRATROPIUM BR 0.02% INH SOLN 0.5 MG/2.5 ML VIAL INHALATION ×4 (02:45→20:41)
[2022-09-04] MEDS: ALBUTEROL SULFATE NEB 2.5 MG/3 ML INH INHALATION ×4 (02:46→20:41)
[2022-09-04] MEDS: dexmedeTOMIDine 400 MCG/100 ML 400 MCG/100 ML BAG 18.45 MCG IV CONT (03:14)
[2022-09-04 04:38] LABS: Hematocrit 36.2 % (37.0-47.0); Hemoglobin 11.5 g/dL (12.0-15.0); Mean Corpuscular HGB Conc 31.8 g/dl (32-36); Mean Corpuscular Hemoglobin 28.3 pg (26-34); Mean Corpuscular Volume 88.9 fl (80-100); Red Blood Count 4.07 M/mm3 (4.2-5.4); White Blood Count 21.2 K/mm3 (4.5-10.0)
[2022-09-04 05:00] LABS: Alanine Aminotransferase 34 U/L (6-35); Albumin Level 3.7 g/dL (3.5-5.1); Alkaline Phosphatase 84 U/L (38-126); Anion Gap 8 mmol/L (8-16); Aspartate Amino Transferase 21 U/L (14-36); Bilirubin,Total 0.4 mg/dL (0.2-1.3); Blood Urea Nitrogen 77 mg/dL (7-17); Calcium 9.7 mg/dL (8.4-10.2); Carbon Dioxide 28 mmol/L (22-30); Chloride 106 mmol/L (98-107); Estimated CRCL calculation 22 ml/min; Estimated Glomerular Filt Rate 16; Glucose 168 mg/dL (65-110); Magnesium 2.4 mg/dL (1.6-2.3); Potassium 4.3 mmol/L (3.4-5.0); Sodium 142 mmol/L (137-145)
[2022-09-04 05:03] LABS: Alveolar/Arterial O2 Gradient 176.5 mmHg; Base Excess ABG 0.9 mEq/l (+/-2.0); Carboxyhemoglobin 0.5 % THb (0-2.0); Fractional Inspired Oxygen 40 %; Methemoglobin ABG 0.4 %THb (0-1.5); Oxygen Content ABG 22.9 %vol (16.0-22.0); Oxygen Saturation ABG 93.1 % (95.0-100.0); Oxyhemoglobin 91.9 % THb (90.0-100.0); PCO2 ABG 38.6 mmHg (35.0-45.0); PO2 ABG 64.3 mmHg (80.0-100.0); PO2 FiO2 Ratio Arterial Blood 1.61 %; Reduced Hemoglobin 7.2 %THb (0-5.0); Total Hemoglobin 17.8 g/dL (12.0-18.0); pH ABG 7.429 (7.350-7.450)
[2022-09-04 05:04] LABS: Arterial Blood Gas PEEP 5 cmH2O; Arterial Blood Gas Vent Mode ASV; Device VENTILATOR; Modified Allen's Test Pass; Site Drawn LEFT RADIAL
[2022-09-04 05:11] LABS: Band Neutrophils Percent 2 % (0-6); Lymphocytes Absolute Manual 4.66 K/mm3 (1.1-4.5); Monocytes Absolute Manual 1.48 K/mm3 (0.1-0.90); Monocytes Percent Manual 7 % (3-9); Neutrophils Absolute Manual 15.05 K/mm3 (1.7-7.2); Neutrophils Percent Manual 69 % (46-73); Total Cells Counted 100
[2022-09-04 05:12] LABS: Platelet Estimate Adequate (Adequate); Schistocytes None Seen (NORMAL)
[2022-09-04] MEDS: METOCLOPRAMIDE HCL 10 MG TABLET FEED TUBE ×3 (05:32→17:06)
[2022-09-04] MEDS: CENTRAL LINE FLUSH 10 ML IV PUSH ×4 (05:33→20:32)
[2022-09-04 07:40] LABS: Ethanol < 10 mg/dL (<10)
[2022-09-04] MEDS: dexmedeTOMIDine 400 MCG/100 ML 400 MCG/100 ML BAG 21.08 MCG IV CONT (07:57)
[2022-09-04] MEDS: MIDAZOLAM HCL (*CRX) 2 MG/2 ML VIAL IV PUSH (08:10)
[2022-09-04] MEDS: ALTEPLASE 2 MG VIAL (CATHFLO) IV PUSH ×2 (08:11→08:12)
--- NOTE | 2022-09-04 09:34 | WPDINTPN ---
Progress Note: A&P Assessment and Plan (1) Acute on chronic respiratory failure with hypoxia and hypercapnia: Code(s): J96.21 - Acute and chronic respiratory failure with hypoxia; J96.22 - Acute and chronic respiratory failure with hypercapnia Status: Acute Assessment and Plan: Multifactorial acute on chronic respiratory failure with hypoxia and hypercarbia secondary to COPD, obesity hypoventilation syndrome, CHF and community-acquired pneumonia Patient was intubated in the ER on 08/27/2022 -currently on ASV mode of ventilation, 45% FiO2 and peep of 5 -chest x-ray this morning: Stable airspace opacities in the lower lung zones, consistent with atelectasis versus pneumonia -09/03/2022: Patient tolerated pressure support ventilation, post SBT ABG showed hypercapnia and hypoxia. He was placed on ASV mode -patient getting dialysis this morning, will try weaning trial after that -08/30/2022 hemodialysis initiated to remove volume -steroids were discontinued -continue bronchodilators -08/27/22: Blood culture are negative till now -08/27/22: sputum cultures growing Haemophilus influenzae -vancomycin discontinued on 09/01/2022 -currently on ceftriaxone, azithromycin (#8) -leukocytosis persists -Influenza RSV and COVID negative - Urine Legionella and pneumococcal antigen are negative -Mycoplasma IgM was low -patient was dialyzed on 08/30, 08/31, 09/02 -patient diuresed on 09/03/2022 08/27/22 CT chest 1. Tree-in-bud opacities as can be seen with atypical infection (including but not limited to: MAC, TB, fungal), ABPA, airways disease, and less likely aspiration. 2. Nodular opacity in right upper lobe should be followed after the appropriate therapy and cessation of symptoms to ensure resolution. 3. Mediastinal lymphadenopathy. 4. Trace bilateral pleural effusions. 5. Mild interstitial edema (2) Chronic obstructive pulmonary disease: Code(s): J44.9 - Chronic obstructive pulmonary disease, unspecified Status: Acute Assessment and Plan: Continue mechanical ventilation, antibiotics and bronchodilators -off steroids (3) Congestive heart failure: Code(s): I50.9 - Heart failure, unspecified Status: Acute Assessment and Plan: hemodialysis to remove fluid 08/28/2022 Echocardiogram ?1. Left ventricular chamber dimension is normal. ? 2. Left ventricular systolic function is normal, estimated at 60-65%. ? 3. The left ventricular diastolic function is grade I diastolic dysfunction. ? 4. Right ventricular chamber dimension is moderately enlarged. ? 5. Right ventricular systolic function is normal. ? 6. There is moderate tricuspid valve regurgitation, which may be underestimated due to the eccentricity of the jet. ? 7. Dilated inferior vena cava with no collapse upon inspiration consistent with elevated right atrial pressure, 15 mmHg. ? 8. Pulmonary hypertension with an estimated PASP of 59mmHg. (4) Acute kidney injury: Code(s): N17.9 - Acute kidney failure, unspecified Status: Acute Assessment and Plan: Patient presented with normal creatinine but was given Lasix in ER and on presentation due to congestive heart failure Urine electrolytes suggest prerenal. Although echo shows dilated IVC with increased right atrial pressure, patient was given additional IV fluids but creatinine continuesdto increase Normal CK Unremarkable renal ultrasound - 08/30:: After discussion with Nephrology, left internal jugular hemodialysis catheter was placed and patient was started on hemodialysis with removal of 3 L of fluid - 08/31: 3.5 L fluid was removed - 09/02: 3000 mL fluid removal -nephrology following (5) Urinary tract infection: Code(s): N39.0 - Urinary tract infection, site not specified Status: Acute Assessment and Plan: UA suggestive of UTI. She has history of E coli UTI -08/27/2022: Urine culture is growing Klebsiella which is pansensitive -continue ceftriaxone
[2022-09-04] MEDS: ALBUMIN HUMAN 25% 12.5 GM/50ML 50 ML IVPB ×4 (10:00→11:48)
--- NOTE | 2022-09-04 11:24 | PCFNICU ---
ICU Rounding Note: Pt current nutrition is Vital AF 1.2 at 50 ml/hr. Last recorded weight is 104.6 kg. Bowel Motility:+BM reported 09/04 Labs Reviewed:Mg 2.4,PO4 5.0,BUN 77, Cr 2.9,Glu 168.Hct 36.2,Hgb 11.5 Meds Noted:Reglan,Versed, Precedex Skin: WNL Additional Notes: Patient remains on mechanical vent. Tube feedings continue of Vital AF 1.2 at 50 ml/hr and tolerating with free water Flush 30 ml q 4 hours. Dialysis today. Plans for another breathing trial. Agree with diet orders. Following daily in ICU rounds. Will monitor daily in ICU rounds and reassess every Thursday and Thursday.
[2022-09-04] MEDS: MINERAL OIL/WHITE PETROLATUM OINTMENT 1 APPLIC EACH EYE ×2 (11:27→20:32)
[2022-09-04 11:47] LABS: Glucose Point of Care 157 mg/dl (65-105)
[2022-09-04] MEDS: fentaNYL CITRATE INJ (*CRX) 100 MCG/2 ML VIAL 25 MCG IV PUSH (12:12)
--- NOTE | 2022-09-04 12:25 | P.PNNP_ITS ---
Progress Note: A&P Assessment and Plan (1) Acute kidney injury: Code(s): N17.9 - Acute kidney failure, unspecified Status: Acute Assessment and Plan: * etiology?? (normal renal function on admission) * evaluation to date * urine electrolytes prerenal * normal CPK * renal ultrasound unremarkable * no significant response to trial of IVFs * given declining urine output and risng BUN + creatinine, initiated on HD (on 08/30/22) * HD catheter in place * follow electrolytes, volume status, and clearance * fluid removal with HD as tolerated by hemodynamics * HD today * follow trend of repeat labs and urine to assess for renal recovery (2) Acute on chronic respiratory failure with hypoxia and hypercapnia: Code(s): J96.21 - Acute and chronic respiratory failure with hypoxia; J96.22 - Acute and chronic respiratory failure with hypercapnia Status: Acute Assessment and Plan: * multifactorial etiology: * COPD * DOMINIC * CHF * pneumonia * on steroids and bronchodilators * follow culture data - sputum cx results noted * broad spectrum antibiotic therapy * continue fluid removal with dialysis/HD * continue ventilator support (3) Congestive heart failure: Code(s): I50.9 - Heart failure, unspecified Status: Acute Assessment and Plan: * as noted by testing on admission * s/p IV diuresis * Echo with diastolic heart failure and pulmonary HTN * follow volume status - fluid removal with dialysis/HD (4) Pneumonia: Code(s): J18.9 - Pneumonia, unspecified organism Status: Acute Assessment and Plan: * suspected with elevated WBC and productive sputm/secretions prior to intu bation * follow-up on urinary antigens and sputum/blood cultures - results noted to date * see #2 * on antibiotics (5) COPD (chronic obstructive pulmonary disease): Code(s): J44.9 - Chronic obstructive pulmonary disease, unspecified Status: Chronic Assessment and Plan: * see #2 * continue current therapy (6) Urinary tract infection: Code(s): N39.0 - Urinary tract infection, site not specified Status: Acute Assessment and Plan: * urine culture with Klebsiella * on antibiotics Will continue to follow. Subjective Date/time seen: 09/04/22 12:25 Tolerating dialysis at the time of my visit (seen on HD at ~ 12:15PM); attempts at aggressive fluid removal with HD/DUF seem to be limited by her hemodynamics (BP will drop toward the end of treatments); remains intubated and on mechanical ventilation; attempts at ventilator weaning happered by ongoing issues with hypercapnia and hypoxia (as noted by ABGs); continue to make some urine. Exam Narrative: General: WD/WN female intubated and on mechanical ventilaltion Heart: normal S1 and S2; no rub Lungs: coarse breath sound a few crackles at bases Abdomen: soft, nontender, nondistended, positive bowel sounds Extremities: no cyanosis or clubbing; no edema Skin: warm and dry Objective Data Vital Signs Vital Signs: Vital Signs Temp Pulse Resp BP Pulse Ox O2 Del Method FiO2 09/04/22 12:00 94 Mechanical Ventilation 40 09/04/22 12:01 73 23 H 09/04/22 11:45 99.3 F 76 25 H 83/51 L 94 09/04/22 11:30 73 96/62 L 09/04/22 11:15 73 103/62 09/04/22 11:00 73 11
--- NOTE | 2022-09-04 12:25 | PM.PNNEP ---
Progress Note: A&P Assessment and Plan (1) Acute kidney injury: Code(s): N17.9 - Acute kidney failure, unspecified Status: Acute Assessment and Plan: etiology?? (normal renal function on admission) evaluation to date urine electrolytes prerenal normal CPK renal ultrasound unremarkable no significant response to trial of IVFs given declining urine output and risng BUN + creatinine, initiated on HD (on 08/30/22) HD catheter in place follow electrolytes, volume status, and clearance fluid removal with HD as tolerated by hemodynamics HD today follow trend of repeat labs and urine to assess for renal recovery (2) Acute on chronic respiratory failure with hypoxia and hypercapnia: Code(s): J96.21 - Acute and chronic respiratory failure with hypoxia; J96.22 - Acute and chronic respiratory failure with hypercapnia Status: Acute Assessment and Plan: multifactorial etiology: COPD DOMINIC CHF pneumonia on steroids and bronchodilators follow culture data - sputum cx results noted broad spectrum antibiotic therapy continue fluid removal with dialysis/HD continue ventilator support (3) Congestive heart failure: Code(s): I50.9 - Heart failure, unspecified Status: Acute Assessment and Plan: as noted by testing on admission s/p IV diuresis Echo with diastolic heart failure and pulmonary HTN follow volume status - fluid removal with dialysis/HD (4) Pneumonia: Code(s): J18.9 - Pneumonia, unspecified organism Status: Acute Assessment and Plan: suspected with elevated WBC and productive sputm/secretions prior to intubation follow-up on urinary antigens and sputum/blood cultures - results noted to date see #2 on antibiotics (5) COPD (chronic obstructive pulmonary disease): Code(s): J44.9 - Chronic obstructive pulmonary disease, unspecified Status: Chronic Assessment and Plan: see #2 continue current therapy (6) Urinary tract infection: Code(s): N39.0 - Urinary tract infection, site not specified Status: Acute Assessment and Plan: urine culture with Klebsiella on antibiotics Will continue to follow. Subjective Date/time seen: 09/04/22 12:25 Tolerating dialysis at the time of my visit (seen on HD at ~ 12:15PM); attempts at aggressive fluid removal with HD/DUF seem to be limited by her hemodynamics (BP will drop toward the end of treatments); remains intubated and on mechanical ventilation; attempts at ventilator weaning happered by ongoing issues with hypercapnia and hypoxia (as noted by ABGs); continue to make some urine. Exam Narrative: General: WD/WN female intubated and on mechanical ventilaltion Heart: normal S1 and S2; no rub Lungs: coarse breath sound a few crackles at bases Abdomen: soft, nontender, nondistended, positive bowel sounds Extremities: no cyanosis or clubbing; no edema Skin: warm and dry Objective Data Vital Signs Vital Signs: Vital Signs Temp Pulse Resp BP Pulse Ox O2 Del Method FiO2 09/04/22 12:00 94 Mechanical Ventilation 40 09/04/22 12:01 73 23 H 09/04/22 11:45 99.3 F 76 25 H 83/51 L 94 09/04/22 11:30 73 96/62 L 09/04/22 11:15 73 103/62 09/04/22 11:00 73 113/56 L 09/04/22 10:45 77 112/67 09/04/22 10:30 72 106/65 09/04/22 10:15 77 106/54 L 09/04/22 10:00 72 85/55 L 09/04/22 09:45 74 91/50 L 09/04/22 09:30 73 88/52 L 09/04/22 09:15 72 91/45 L 09/04/22 09:00 72 98/51 L 09/04/22 08:52 69 103/56 L 09/04/22 11:26 74 25 H 09/04/22 10:49 78 94 Mechanical Ventilation 40 09/04/22 10:00 77 09/04/22 10:00 76 22 H 85/55 L 97 09/04/22 09:45 70 24 H 09/04/22 08:52 40 09/04/22 07:45 98.9 F 69 16 100/55 L 96 09/04/22 08:47 74 96 Mechanical Ventilation 40
[2022-09-04] MEDS: APIXABAN 2.5 MG TABLET FEED TUBE ×2 (12:33→20:32)
[2022-09-04] MEDS: PANTOPRAZOLE SODIUM IV 40 MG VIAL IV PUSH (12:33)
[2022-09-04] MEDS: ESCITALOPRAM OXALATE 10 MG TABLET 20 MG PO (12:34)
[2022-09-04] MEDS: dexmedeTOMIDine 400 MCG/100 ML 400 MCG/100 ML BAG 26.35 MCG IV CONT (12:41)
[2022-09-04 14:51] LABS: Hepatitis B Core Ab Total Nonreactive (Nonreactive)
[2022-09-04] MEDS: PROPOFOL IV EMULSION 100 ML 3.14 MG IV CONT (15:03)
[2022-09-04 17:23] LABS: Glucose Point of Care 140 mg/dl (65-105)
[2022-09-04] MEDS: PROPOFOL IV EMULSION 100 ML 12.55 MG IV CONT (22:29)
[2022-09-05] VITALS (36 sets, daily range): BP systolic 102–200; BP diastolic 56–115; PULSE 78–126; RESP 14–28; TEMP 36–38.2; O2SAT 90–100
[2022-09-05 00:11] LABS: Glucose Point of Care 176 mg/dl (65-105)
[2022-09-05] MEDS: METOCLOPRAMIDE HCL 10 MG TABLET FEED TUBE (00:30)
[2022-09-05] MEDS: ALBUTEROL SULFATE NEB 2.5 MG/3 ML INH INHALATION ×4 (02:03→20:49)
[2022-09-05] MEDS: IPRATROPIUM BR 0.02% INH SOLN 0.5 MG/2.5 ML VIAL INHALATION ×4 (02:07→20:49)
[2022-09-05] MEDS: PROPOFOL IV EMULSION 100 ML 18.83 MG IV CONT (05:04)
--- NOTE | 2022-09-05 05:05 | PC.NURSE ---
At approximately 0505, pt's vent started alarming. This RN noticed that the pt's ETT was pulled out to 20 cm and OG all the way out. Tube feeds stopped and RT called for assistance. tooth cutter clutch Hira also at bedside. Large amounts of tube feeding suctioned from airway. Propofol titrated to 30 and RT advanced ETT back to 25 cm. OG reinserted at 75 cm and secured to ETT. Stat xray for ETT and OG placement called. Pt VSS.
[2022-09-05 05:28] LABS: Basophils Absolute Auto 0.1 K/mm3 (0.0-0.1); Basophils Percent Auto 0.3 % (0.2-1.2); Eosinophils Absolute Auto 0.9 K/mm3 (0-0.3); Eosinophils Percent Auto 2.5 % (0-4.4); Hematocrit 40.9 % (37.0-47.0); Hemoglobin 12.6 g/dL (12.0-15.0); Immature Granulocyte Absolute 2.99 K/mm3 (0.00-0.031); Immature Granulocyte Percent A 8.8 % (0-0.5); Lymphocytes Absolute Auto 4.17 K/mm3 (0.9-3.2); Lymphocytes Percent Auto 12.3 % (18.3-44.2); Mean Corpuscular HGB Conc 30.8 g/dl (32-36); Mean Corpuscular Hemoglobin 28.3 pg (26-34); Mean Corpuscular Volume 91.9 fl (80-100); Mean Platelet Volume 9.7 fl (7.4-10.4); Monocytes Absolute Auto 1.9 K/mm3 (0.1-0.6); Monocytes Percent Auto 5.7 % (2.6-8.5); Neutrophils Absolute Auto 23.9 K/mm3 (1.3-6.7); Neutrophils Percent Auto 70.4 % (45.5-73.1); Platelet Count Result 330 k/mm3 (150-375); Red Blood Count 4.45 M/mm3 (4.2-5.4); Red Cell Distribution Width 14.3 % (11.5-14.5); White Blood Count 33.9 K/mm3 (4.5-10.0)
[2022-09-05 05:37] LABS: Alanine Aminotransferase 31 U/L (6-35); Albumin Level 4.7 g/dL (3.5-5.1); Alkaline Phosphatase 89 U/L (38-126); Anion Gap 14 mmol/L (8-16); Aspartate Amino Transferase 23 U/L (14-36); Bilirubin,Total 0.6 mg/dL (0.2-1.3); Blood Urea Nitrogen 78 mg/dL (7-17); Calcium 9.8 mg/dL (8.4-10.2); Carbon Dioxide 23 mmol/L (22-30); Chloride 101 mmol/L (98-107); Estimated CRCL calculation 15 ml/min; Estimated Glomerular Filt Rate 11; Glucose 133 mg/dL (65-110); Magnesium 2.2 mg/dL (1.6-2.3); Phosphorus 6.3 mg/dL (2.5-4.5); Potassium 4.5 mmol/L (3.4-5.0); Sodium 138 mmol/L (137-145); Triglycerides 222 mg/dL (<150)
[2022-09-05] MEDS: CENTRAL LINE FLUSH 10 ML IV PUSH ×4 (06:01→22:02)
[2022-09-05 06:14] LABS: Base Excess ABG -3.9 mEq/l (+/-2.0); Carboxyhemoglobin 0.6 % THb (0-2.0); Fractional Inspired Oxygen 35 %; HCO3 ABG 20.9 mEq/l (22.0-26.0); Methemoglobin ABG 0.3 %THb (0-1.5); Oxygen Saturation ABG 94.1 % (95.0-100.0); Oxyhemoglobin 93.4 % THb (90.0-100.0); PCO2 ABG 37.4 mmHg (35.0-45.0); PO2 ABG 72.1 mmHg (80.0-100.0); PO2 FiO2 Ratio Arterial Blood 2.06 %; Reduced Hemoglobin 5.7 %THb (0-5.0); Total Hemoglobin 13.7 g/dL (12.0-18.0); pH ABG 7.365 (7.350-7.450)
[2022-09-05 06:15] LABS: Device VENTILATOR; Modified Allen's Test Pass; Site Drawn LEFT RADIAL
[2022-09-05 06:16] LABS: Arterial Blood Gas PEEP 5 cmH2O; Arterial Blood Gas Vent Mode ASV
[2022-09-05] MEDS: ALTEPLASE 2 MG VIAL (CATHFLO) IV PUSH (06:57)
--- NOTE | 2022-09-05 07:56 | WPDINTPN ---
Progress Note: A&P Assessment and Plan (1) Acute on chronic respiratory failure with hypoxia and hypercapnia: Code(s): J96.21 - Acute and chronic respiratory failure with hypoxia; J96.22 - Acute and chronic respiratory failure with hypercapnia Status: Acute Assessment and Plan: Multifactorial acute on chronic respiratory failure with hypoxia and hypercarbia secondary to COPD, obesity hypoventilation syndrome, CHF and community-acquired pneumonia Patient was intubated in the ER on 08/27/2022 -currently on ASV mode of ventilation, 35% FiO2 and peep of 5 -chest x-ray this morning: Stable airspace opacities in the lower lung zones, consistent with atelectasis versus pneumonia. -09/03/2022: Patient tolerated pressure support ventilation, post SBT ABG showed hypercapnia and hypoxia. He was placed on ASV mode -09/04: Patient got her dialysis very late so was unable to place her on breathing trial -09/05: will place patient on breathing trial today -08/30/2022 hemodialysis initiated to remove volume -steroids were discontinued -continue bronchodilators -08/27/22: Blood culture are negative till now -08/27/22: sputum cultures growing Haemophilus influenzae -vancomycin discontinued on 09/01/2022 -completed 7 days of ceftriaxone, azithromycin (discontinued on 09/03) -09/05: leukocytosis increased with low-grade fevers, will obtain lower extremity venous Dopplers, repeat blood cultures, sputum cultures, urine cultures -Influenza RSV and COVID negative - Urine Legionella and pneumococcal antigen are negative -Mycoplasma IgM was low -patient was dialyzed on 08/30, 08/31, 09/02 -patient diuresed on 09/03/2022 08/27/22 CT chest 1. Tree-in-bud opacities as can be seen with atypical infection (including but not limited to: MAC, TB, fungal), ABPA, airways disease, and less likely aspiration. 2. Nodular opacity in right upper lobe should be followed after the appropriate therapy and cessation of symptoms to ensure resolution. 3. Mediastinal lymphadenopathy. 4. Trace bilateral pleural effusions. 5. Mild interstitial edema (2) Chronic obstructive pulmonary disease: Code(s): J44.9 - Chronic obstructive pulmonary disease, unspecified Status: Acute Assessment and Plan: Continue mechanical ventilation, antibiotics and bronchodilators -off steroids (3) Congestive heart failure: Code(s): I50.9 - Heart failure, unspecified Status: Acute Assessment and Plan: hemodialysis to remove fluid 08/28/2022 Echocardiogram ?1. Left ventricular chamber dimension is normal. ? 2. Left ventricular systolic function is normal, estimated at 60-65%. ? 3. The left ventricular diastolic function is grade I diastolic dysfunction. ? 4. Right ventricular chamber dimension is moderately enlarged. ? 5. Right ventricular systolic function is normal. ? 6. There is moderate tricuspid valve regurgitation, which may be underestimated due to the eccentricity of the jet. ? 7. Dilated inferior vena cava with no collapse upon inspiration consistent with elevated right atrial pressure, 15 mmHg. ? 8. Pulmonary hypertension with an estimated PASP of 59mmHg. (4) Acute kidney injury: Code(s): N17.9 - Acute kidney failure, unspecified Status: Acute Assessment and Plan: Patient presented with normal creatinine but was given Lasix in ER and on presentation due to congestive heart failure Urine electrolytes suggest prerenal. Although echo shows dilated IVC with increased right atrial pressure, patient was given additional IV fluids but creatinine continuesdto increase Normal CK Unremarkable renal ultrasound - 08/30:: After discussion with Nephrology, left internal jugular hemodialysis catheter was placed and patient was started on hemodialysis with removal of 3000 mL of fluid - 08/31: 3500 fluid was removed - 09/02: 3000 mL fluid removal -09/04: 3000 mL fluid removal -nephrology following (5) Urinary tract infection: Co
[2022-09-05] MEDS: ESCITALOPRAM OXALATE 10 MG TABLET 20 MG PO (08:26)
[2022-09-05] MEDS: APIXABAN 2.5 MG TABLET FEED TUBE (08:26)
[2022-09-05] MEDS: PANTOPRAZOLE SODIUM IV 40 MG VIAL IV PUSH (08:26)
[2022-09-05] MEDS: MINERAL OIL/WHITE PETROLATUM OINTMENT 1 APPLIC EACH EYE ×2 (08:26→20:35)
--- NOTE | 2022-09-05 09:34 | PM.PNNEP ---
Progress Note: A&P Assessment and Plan (1) Acute kidney injury: Code(s): N17.9 - Acute kidney failure, unspecified Status: Acute Assessment and Plan: etiology?? (normal renal function on admission) evaluation to date urine electrolytes prerenal normal CPK renal ultrasound unremarkable no significant response to trial of IVFs given declining urine output and risng BUN + creatinine, initiated on HD (on 08/30/22) HD catheter in place follow electrolytes, volume status, and clearance fluid removal with HD as tolerated by hemodynamics plan HD tomorrow follow trend of repeat labs and urine to assess for renal recovery (2) Acute on chronic respiratory failure with hypoxia and hypercapnia: Code(s): J96.21 - Acute and chronic respiratory failure with hypoxia; J96.22 - Acute and chronic respiratory failure with hypercapnia Status: Acute Assessment and Plan: multifactorial etiology: COPD DOMINIC CHF pneumonia on steroids and bronchodilators follow culture data - sputum cx results noted broad spectrum antibiotic therapy continue fluid removal with dialysis/HD continue ventilator support - weaning in progress (3) Congestive heart failure: Code(s): I50.9 - Heart failure, unspecified Status: Acute Assessment and Plan: as noted by testing on admission s/p IV diuresis with limited response Echo with diastolic heart failure and pulmonary HTN follow volume status - fluid removal with dialysis/HD (4) Pneumonia: Code(s): J18.9 - Pneumonia, unspecified organism Status: Acute Assessment and Plan: suspected with elevated WBC and productive sputm/secretions prior to intubation follow-up on urinary antigens and sputum/blood cultures - results noted to date see #2 on antibiotics (5) COPD (chronic obstructive pulmonary disease): Code(s): J44.9 - Chronic obstructive pulmonary disease, unspecified Status: Chronic Assessment and Plan: see #2 continue current therapy (6) Urinary tract infection: Code(s): N39.0 - Urinary tract infection, site not specified Status: Acute Assessment and Plan: urine culture with Klebsiella on antibiotics Will continue to follow. Subjective Date/time seen: 09/05/22 09:34 Tolerated dialysis + DUF yesterday with ~ 3L fluid removal -- attempts at removing more fluid resulted in drops in systolic blood pressure; noted plan for SBT and possible extubation later today depending on results; still making reasonable urine output. Exam Narrative: General: WD/WN female intubated and on mechanical ventilaltion Heart: normal S1 and S2; no rub Lungs: coarse breath sound; decreased at bases Abdomen: soft, nontender, nondistended, positive bowel sounds Extremities: no cyanosis or clubbing; no edema Skin: warm and intact Objective Data Vital Signs Vital Signs: Vital Signs Temp Pulse Resp BP Pulse Ox O2 Del Method FiO2 09/05/22 09:15 83 21 H 09/05/22 09:15 83 95 Mechanical Ventilation 35 09/05/22 08:00 93 Mechanical Ventilation 50 09/05/22 08:00 30 09/05/22 05:05 Mechanical Ventilation 09/05/22 06:00 90 17 120/65 96 09/05/22 06:00 90 09/05/22 04:00 35 09/05/22 04:00 100 F H 87 19 116/69 97 09/05/22 04:00 87 09/05/22 06:08 87 93 Mechanical Ventilation 35 09/05/22 06:13 Mechanical Ventilation 30 09/05/22 04:00 Mechanical Ventilation 35 09/05/22 05:04 91 27 H 09/05/22 03:20 85 20 09/05/22 02:54 99.8 F H 09/05/22 02:00 91 14 102/62 99 09/05/22 02:00 91 09/05/22 02:05 84 100 Mechanical Ventilation 40 09/05/22 02:05 84 20 09/04/22 20:58 97 27 H 09/04/22 23:00 86 98 Mechanical Ventilation 40 09/04/22 20:45 94 27 H 09/05/22 00:00 35 09/05/22 00:00 Me
--- NOTE | 2022-09-05 09:34 | P.PNNP_ITS ---
Progress Note: A&P Assessment and Plan (1) Acute kidney injury: Code(s): N17.9 - Acute kidney failure, unspecified Status: Acute Assessment and Plan: * etiology?? (normal renal function on admission) * evaluation to date * urine electrolytes prerenal * normal CPK * renal ultrasound unremarkable * no significant response to trial of IVFs * given declining urine output and risng BUN + creatinine, initiated on HD (on 08/30/22) * HD catheter in place * follow electrolytes, volume status, and clearance * fluid removal with HD as tolerated by hemodynamics * plan HD tomorrow * follow trend of repeat labs and urine to assess for renal recovery (2) Acute on chronic respiratory failure with hypoxia and hypercapnia: Code(s): J96.21 - Acute and chronic respiratory failure with hypoxia; J96.22 - Acute and chronic respiratory failure with hypercapnia Status: Acute Assessment and Plan: * multifactorial etiology: * COPD * DOMINIC * CHF * pneumonia * on steroids and bronchodilators * follow culture data - sputum cx results noted * broad spectrum antibiotic therapy * continue fluid removal with dialysis/HD * continue ventilator support - weaning in progress (3) Congestive heart failure: Code(s): I50.9 - Heart failure, unspecified Status: Acute Assessment and Plan: * as noted by testing on admission * s/p IV diuresis with limited response * Echo with diastolic heart failure and pulmonary HTN * follow volume status - fluid removal with dialysis/HD (4) Pneumonia: Code(s): J18.9 - Pneumonia, unspecified organism Status: Acute Assessment and Plan: * suspected with elevated WBC and productive sputm/secretions prior to intubation * follow-up on urinary antigens and sputum/blood cultures - results noted to date * see #2 * on antibiotics (5) COPD (chronic obstructive pulmonary disease): Code(s): J44.9 - Chronic obstructive pulmonary disease, unspecified Status: Chronic Assessment and Plan: * see #2 * continue current therapy (6) Urinary tract infection: Code(s): N39.0 - Urinary tract infection, site not specified Status: Acute Assessment and Plan: * urine culture with Klebsiella * on antibiotics Will continue to follow. Subjective Date/time seen: 09/05/22 09:34 Tolerated dialysis + DUF yesterday with ~ 3L fluid removal -- attempts at removing more fluid resulted in drops in systolic blood pressure; noted plan for SBT and possible extubation later today depending on results; still making reasonable urine output. Exam Narrative: General: WD/WN female intubated and on mechanical ventilaltion Heart: normal S1 and S2; no rub Lungs: coarse breath sound; decreased at bases Abdomen: soft, nontender, nondistended, positive bowel sounds Extremities: no cyanosis or clubbing; no edema Skin: warm and intact Objective Data Vital Signs Vital Signs: Vital Signs Temp Pulse Resp BP Pulse Ox O2 Del Method FiO2 09/05/22 09:15 83 21 H 09/05/22 09:15 83 95 Mechanical Ventilation 35 09/05/22 08:00 93 Mechanical Ventilation 50 09/05/22 08:00 30 09/05/22 05:05 Mechanical Ventilation 09/05/22 06:00 90 17 120/65 96 09/05/22 06:00 90 09/05/22 04
[2022-09-05 11:32] LABS: Alveolar/Arterial O2 Gradient 100.1 mmHg; Base Excess ABG -2.5 mEq/l (+/-2.0); Fractional Inspired Oxygen 30 %; HCO3 ABG 22.7 mEq/l (22.0-26.0); Oxygen Content ABG 17.7 %vol (16.0-22.0); Oxygen Saturation ABG 92.4 % (95.0-100.0); Oxyhemoglobin 91.3 % THb (90.0-100.0); PCO2 ABG 40.8 mmHg (35.0-45.0); PO2 ABG 65.9 mmHg (80.0-100.0); Total Hemoglobin 13.8 g/dL (12.0-18.0); pH ABG 7.364 (7.350-7.450)
[2022-09-05 11:33] LABS: Device VENTILATOR; Modified Allen's Test Pass; Site Drawn RIGHT RADIAL
[2022-09-05 11:34] LABS: Arterial Blood Gas PEEP 5 cmH2O; Arterial Blood Gas Pressure Support 8 cmH2O; Arterial Blood Gas Vent Mode SPONTANEOUS
[2022-09-05] MEDS: racEPINEPHrine 2.25% NEBU SOLN 0.5 ML VIAL.NEB INHALATION (12:15)
[2022-09-05] MEDS: METOPROLOL TARTRATE INJ 5 MG/5 ML VIAL IV PUSH (12:22)
[2022-09-05 12:26] LABS: Glucose Point of Care 149 mg/dl (65-105)
--- NOTE | 2022-09-05 13:13 | PCNFU ---
Nutrition Follow-Up Complete: Inadequate Oral Intake as related to mechanical ventilation as evidence by NPO. Goal: Meet estimated nutritional needs Patient is progressing towards goal. We will continue current goal. Pt current nutrition is Vital AF 1.2 at 50 ml/hr. Last recorded weight is 101.4 kg. Bowel Motility:+Bm reported 09/05 Labs Reviewed:TG 222,Glu 133, BUN 78,GFR 11, Cr 4.10 Meds Noted:Reglan,Eliquis Skin: WNL Additional Notes: Patient remains on mechanical vent at this time. Breathing trial today. Tube feedings on hold for possible extubation. Agree with diet orders. Will monitor daily in ICU rounds and reassess every Thursday and Thursday.
[2022-09-05] MEDS: DEXAMETHASONE SOD PHOS INJ 4 MG/ML VIAL IV PUSH ×3 (13:42→23:48)
--- NOTE | 2022-09-05 15:22 | PM.IMPN ---
Progress Note: A&P Assessment and Plan (1) Acute on chronic respiratory failure with hypoxia and hypercapnia: Code(s): J96.21 - Acute and chronic respiratory failure with hypoxia; J96.22 - Acute and chronic respiratory failure with hypercapnia Status: Acute Assessment and Plan: Multifactorial acute on chronic respiratory failure with hypoxia and hypercarbia secondary to COPD, obesity hypoventilation syndrome, CHF and community-acquired pneumonia Patient was intubated in the ER on 08/27/2022 extubated and placed on bipap 09/05/2022 Chest xary: Stable airspace opacities in the lower lung zones, consistent with atelectasis versus pneumonia. HD started to remove fluid. steroid discontinued continue on bronchodilator -08/27/22: Blood culture are negative till now -08/27/22: sputum cultures growing Haemophilus influenzae -vancomycin discontinued on 09/01/2022 -completed 7 days of ceftriaxone, azithromycin (discontinued on 09/03) -09/05: leukocytosis increased with low-grade fevers, lower extremity venous Dopplers negative, repeat blood cultures, sputum cultures, urine cultures -Influenza RSV and COVID negative - Urine Legionella and pneumococcal antigen are negative -Mycoplasma IgM was low -patient was dialyzed on 08/30, 08/31, 09/02 -patient diuresed on 09/03/2022 08/27/22 CT chest 1. Tree-in-bud opacities as can be seen with atypical infection (including but not limited to: MAC, TB, fungal), ABPA, airways disease, and less likely aspiration. 2. Nodular opacity in right upper lobe should be followed after the appropriate therapy and cessation of symptoms to ensure resolution. 3. Mediastinal lymphadenopathy. 4. Trace bilateral pleural effusions. 5. Mild interstitial edema (2) Chronic obstructive pulmonary disease: Code(s): J44.9 - Chronic obstructive pulmonary disease, unspecified Status: Acute Assessment and Plan: Continue mechanical ventilation, antibiotics and bronchodilators -off steroids (3) Congestive heart failure: Code(s): I50.9 - Heart failure, unspecified Status: Acute Assessment and Plan: hemodialysis to remove fluid 08/28/2022 Echocardiogram ?1. Left ventricular chamber dimension is normal. ? 2. Left ventricular systolic function is normal, estimated at 60-65%. ? 3. The left ventricular diastolic function is grade I diastolic dysfunction. ? 4. Right ventricular chamber dimension is moderately enlarged. ? 5. Right ventricular systolic function is normal. ? 6. There is moderate tricuspid valve regurgitation, which may be underestimated due to the eccentricity of the jet. ? 7. Dilated inferior vena cava with no collapse upon inspiration consistent with elevated right atrial pressure, 15 mmHg. ? 8. Pulmonary hypertension with an estimated PASP of 59mmHg. (4) Acute kidney injury: Code(s): N17.9 - Acute kidney failure, unspecified Status: Acute Assessment and Plan: Patient presented with normal creatinine but was given Lasix in ER and on presentation due to congestive heart failure Urine electrolytes suggest prerenal. Although echo shows dilated IVC with increased right atrial pressure, patient was given additional IV fluids but creatinine continuesdto increase Normal CK Unremarkable renal ultrasound - 08/30:: After discussion with Nephrology, left internal jugular hemodialysis catheter was placed and patient was started on hemodialysis with removal of 3000 mL of fluid - 08/31: 3500 fluid was removed - 09/02: 3000 mL fluid removal -09/04: 3000 mL fluid removal -nephrology following (5) Urinary tract infection: Code(s): N39.0 - Urinary tract infection, site not specified Status: Acute Assessment and Plan: UA suggestive of UTI. She has history of E coli UTI -08/27/2022: Urine culture is growing Klebsiella which is pansensitive -status post ceftriaxone (6) Chronic anticoagulation: Code(s): Z79.01 - [facility] (current) use of anticoagu
[2022-09-05 18:46] LABS: Glucose Point of Care 175 mg/dl (65-105)
[2022-09-05] MEDS: ONDANSETRON INJ 4 MG/2 ML VIAL IV PUSH ×2 (19:44→23:48)
--- NOTE | 2022-09-05 19:50 | PCRCNOTE ---
Per MD and RN, Airvo was suggested, after pt vomited in her BIPAP mask once. RN was concern about aspiration. RT placed pt on 40L/40Fi02. Per RN, she stated pt is a COPD/C02 Retainer pt. That requires CPAP at night. RT suggested that X-ray be done. RT voiced his concerns about voice and the possibilities of this pt C02 climbing.
--- NOTE | 2022-09-05 20:39 | PCRCNOTE ---
pt sp02 drop to 74-81% while sleeping. Aviro setting was titrated with the goal to maintain 90% saturation. Unable to achieve saturation. Pt placed back on BIPAP with order setting. Sp02 95% on BIPAP 40% FI02
[2022-09-05 22:07] LABS: Alveolar/Arterial O2 Gradient 180.1 mmHg; Base Excess ABG -8.3 mEq/l (+/-2.0); Fractional Inspired Oxygen 45 %; HCO3 ABG 19.1 mEq/l (22.0-26.0); Methemoglobin ABG 0.4 %THb (0-1.5); Oxygen Content ABG 18.8 %vol (16.0-22.0); Oxygen Saturation ABG 95.2 % (95.0-100.0); Oxyhemoglobin 93.7 % THb (90.0-100.0); PCO2 ABG 45.9 mmHg (35.0-45.0); PO2 ABG 88.5 mmHg (80.0-100.0); PO2 FiO2 Ratio Arterial Blood 1.97 %; Reduced Hemoglobin 4.9 %THb (0-5.0); Total Hemoglobin 14.2 g/dL (12.0-18.0)
[2022-09-05 22:10] LABS: Device BIPAP; Modified Allen's Test Pass; Site Drawn LEFT RADIAL; pH ABG 7.236 (7.350-7.450)
[2022-09-05 22:11] LABS: Expiratory Pressure 6 cmH2O; Inspiratory Pressure 14 cmH2O
[2022-09-06] VITALS (37 sets, daily range): BP systolic 98–173; BP diastolic 59–122; PULSE 77–122; RESP 17–22; TEMP 36–37.4; O2SAT 87–100
[2022-09-06 00:02] LABS: Glucose Point of Care 156 mg/dl (65-105)
[2022-09-06] MEDS: ALBUTEROL SULFATE NEB 2.5 MG/3 ML INH INHALATION ×2 (02:49→08:19)
[2022-09-06] MEDS: IPRATROPIUM BR 0.02% INH SOLN 0.5 MG/2.5 ML VIAL INHALATION ×4 (02:49→20:23)
[2022-09-06] MEDS: ONDANSETRON INJ 4 MG/2 ML VIAL IV PUSH (04:10)
[2022-09-06] MEDS: DEXAMETHASONE SOD PHOS INJ 4 MG/ML VIAL IV PUSH (05:14)
[2022-09-06] MEDS: CENTRAL LINE FLUSH 10 ML IV PUSH ×3 (05:18→22:50)
[2022-09-06 05:33] LABS: Alveolar/Arterial O2 Gradient 150.4 mmHg; Base Excess ABG -6.9 mEq/l (+/-2.0); Fractional Inspired Oxygen 40 %; HCO3 ABG 19.8 mEq/l (22.0-26.0); Oxygen Content ABG 17.5 %vol (16.0-22.0); Oxygen Saturation ABG 94.9 % (95.0-100.0); PCO2 ABG 44.2 mmHg (35.0-45.0); Total Hemoglobin 13.2 g/dL (12.0-18.0)
[2022-09-06 05:42] LABS: Device BIPAP; Modified Allen's Test Pass; Site Drawn LEFT RADIAL
[2022-09-06 05:43] LABS: Expiratory Pressure 6 cmH2O; Inspiratory Pressure 14 cmH2O
[2022-09-06 05:44] LABS: Basophils Absolute Auto 0.2 K/mm3 (0.0-0.1); Basophils Percent Auto 0.7 % (0.2-1.2); Hematocrit 41.5 % (37.0-47.0); Hemoglobin 12.9 g/dL (12.0-15.0); Immature Granulocyte Absolute 2.01 K/mm3 (0.00-0.031); Immature Granulocyte Percent A 7.4 % (0-0.5); Lymphocytes Absolute Auto 2.17 K/mm3 (0.9-3.2); Mean Corpuscular HGB Conc 31.1 g/dl (32-36); Mean Corpuscular Hemoglobin 28.4 pg (26-34); Mean Corpuscular Volume 91.2 fl (80-100); Mean Platelet Volume 9.8 fl (7.4-10.4); Monocytes Absolute Auto 0.9 K/mm3 (0.1-0.6); Monocytes Percent Auto 3.2 % (2.6-8.5); Neutrophils Absolute Auto 21.9 K/mm3 (1.3-6.7); Neutrophils Percent Auto 80.7 % (45.5-73.1); Platelet Count Result 382 k/mm3 (150-375); Red Blood Count 4.55 M/mm3 (4.2-5.4); Red Cell Distribution Width 14.1 % (11.5-14.5); White Blood Count 27.1 K/mm3 (4.5-10.0)
[2022-09-06 05:53] LABS: Alanine Aminotransferase 34 U/L (6-35); Alkaline Phosphatase 98 U/L (38-126); Anion Gap 20 mmol/L (8-16); Aspartate Amino Transferase 18 U/L (14-36); Bilirubin,Total 0.5 mg/dL (0.2-1.3); Blood Urea Nitrogen 117 mg/dL (7-17); Calcium 10.2 mg/dL (8.4-10.2); Carbon Dioxide 18 mmol/L (22-30); Chloride 101 mmol/L (98-107); Estimated CRCL calculation 12 ml/min; Estimated Glomerular Filt Rate 8; Glucose 151 mg/dL (65-110); Magnesium 2.5 mg/dL (1.6-2.3); Phosphorus 12.3 mg/dL (2.5-4.5); Potassium 5.3 mmol/L (3.4-5.0); Sodium 139 mmol/L (137-145)
[2022-09-06] MEDS: ALTEPLASE 2 MG VIAL (CATHFLO) IV PUSH (07:50)
[2022-09-06] MEDS: PANTOPRAZOLE SODIUM IV 40 MG VIAL IV PUSH (09:35)
--- NOTE | 2022-09-06 09:50 | WPDINTPN ---
Progress Note: A&P Assessment and Plan (1) Acute on chronic respiratory failure with hypoxia and hypercapnia: Code(s): J96.21 - Acute and chronic respiratory failure with hypoxia; J96.22 - Acute and chronic respiratory failure with hypercapnia Status: Acute Assessment and Plan: Multifactorial acute on chronic respiratory failure with hypoxia and hypercarbia secondary to COPD, obesity hypoventilation syndrome, CHF and community-acquired pneumonia Patient was intubated in the ER on 08/27/2022 Extubated on 09/05/2022. Post extubation patient had some stridor, dyspnea, tachycardia and hypertension. Patient was given Decadron, racemic epinephrine with improvement -chest x-ray this morning: Left internal jugular central venous catheter tip overlies superior vena cava. Mild bibasilar infiltrate or atelectasis, mildly improved since 09/05/2022 -patient uses 5-6 L of oxygen at home during the day and CPAP at night -will place patient on home oxygen settings evaluate, if she does not tolerate will place her on Airvo and/or BiPAP -08/30/2022 hemodialysis initiated to remove volume -steroids were discontinued -continue bronchodilators -08/27/22: Blood culture are negative till now -08/27/22: sputum cultures growing Haemophilus influenzae -vancomycin discontinued on 09/01/2022 -completed 7 days of ceftriaxone, azithromycin (discontinued on 09/03) -09/05: leukocytosis increased with low-grade fevers, will obtain lower extremity venous Dopplers, repeat blood cultures, sputum cultures, urine cultures 09/06: Leukocytosis improving, will continue to monitor, afebrile, hemodynamically stable. Will hold off antibiotics -Influenza RSV and COVID negative - Urine Legionella and pneumococcal antigen are negative -Mycoplasma IgM was low -patient was dialyzed on 08/30, 08/31, 09/02 -patient diuresed on 09/03/2022 08/27/22 CT chest 1. Tree-in-bud opacities as can be seen with atypical infection (including but not limited to: MAC, TB, fungal), ABPA, airways disease, and less likely aspiration. 2. Nodular opacity in right upper lobe should be followed after the appropriate therapy and cessation of symptoms to ensure resolution. 3. Mediastinal lymphadenopathy. 4. Trace bilateral pleural effusions. 5. Mild interstitial edema (2) Chronic obstructive pulmonary disease: Code(s): J44.9 - Chronic obstructive pulmonary disease, unspecified Status: Acute Assessment and Plan: Continue mechanical ventilation, antibiotics and bronchodilators -off steroids (3) Congestive heart failure: Code(s): I50.9 - Heart failure, unspecified Status: Acute Assessment and Plan: hemodialysis to remove fluid 08/28/2022 Echocardiogram ?1. Left ventricular chamber dimension is normal. ? 2. Left ventricular systolic function is normal, estimated at 60-65%. ? 3. The left ventricular diastolic function is grade I diastolic dysfunction. ? 4. Right ventricular chamber dimension is moderately enlarged. ? 5. Right ventricular systolic function is normal. ? 6. There is moderate tricuspid valve regurgitation, which may be underestimated due to the eccentricity of the jet. ? 7. Dilated inferior vena cava with no collapse upon inspiration consistent with elevated right atrial pressure, 15 mmHg. ? 8. Pulmonary hypertension with an estimated PASP of 59mmHg. (4) Acute kidney injury: Code(s): N17.9 - Acute kidney failure, unspecified Status: Acute Assessment and Plan: Patient presented with normal creatinine but was given Lasix in ER and on presentation due to congestive heart failure Urine electrolytes suggest prerenal. Although echo shows dilated IVC with increased right atrial pressure, patient was given additional IV fluids but creatinine continuesdto increase Normal CK Unremarkable renal ultrasound - 08/30:: After discussion with Nephrology, left internal jugular hemodialysis catheter was placed and patient was started on hemodialy
--- NOTE | 2022-09-06 09:51 | PCHDNOTE ---
Cathflo instilled for 30 mins in both limbs of CVC due to inability to aspirate; Both limbs flush with ease. After cathflo art limb aspirates, but sluggish; venous limb aspirates with ease. Pt connected to machine with lines reversed and 200BFR with art pressures -220 thru -270 and frequent alarms when pt moves, which was frequently. Pt got heparin bolus and 500cc/hr maintenance and clotting observed in venous chamber, along with increasing venous pressures after one hour of treatment. Tx was d/c'd and Dr. Hernadez notified. Dr. Villareal updated and pt will get Permcath on Thursday.
[2022-09-06] MEDS: FUROSEMIDE INJ 40 MG/4 ML VIAL IV PUSH (09:58)
--- NOTE | 2022-09-06 11:48 | PCSTNOTE ---
Bedside swallowing evaluation. Patient has history of severe respiratory problems and came to ER on 08/27/22 and was subsequently admitted with acute and chronic respiratory failure and placed on mechanical ventilation. Extubated on 09/05/22. NG tube was removed as well. Patient is alert but confused, follow commands with 50% accuracy. Patient positioned upright in bed and presented with individual 3 ML trials of chilled applesauce by spoon, given by speech pathologist. No signs of aspiration were observed (NO: coughing, gagging, watering eyes, delayed oral transit). Vocal quality was hoarse prior to swallowing trials, and hoarse afterwards as well. Please note: silent aspiration cannot be ruled out at bedside. Recommendations: pureed diet with moderately thickened liquids (level 4 and 3). Swallowing precaution recommendations posted in chart. Patient is not a candidate for modified barium swallow study today due to confusion. Discussed with physician and nurse and recommended modified barium swallow study possibly tomorrow if patient is less confused and able to follow directions. Thank you for the referral of this patient.
[2022-09-06] MEDS: ESCITALOPRAM OXALATE 10 MG TABLET 20 MG PO (12:05)
[2022-09-06] MEDS: APIXABAN 2.5 MG TABLET FEED TUBE ×2 (12:06→22:50)
[2022-09-06 12:31] LABS: Glucose Point of Care 154 mg/dl (65-105)
--- NOTE | 2022-09-06 12:41 | P.PNNP_ITS ---
Progress Note: A&P Assessment and Plan (1) Acute kidney injury: Code(s): N17.9 - Acute kidney failure, unspecified Status: Acute Assessment and Plan: * FARZANEH * evaluation to date * urine electrolytes prerenal * normal CPK * renal ultrasound unremarkable * no significant response to trial of IVFs * given declining urine output and risng BUN + creatinine, initiated on HD (on 08/30/22) * HD catheter in place * follow electrolytes, volume status, and clearance * fluid removal with HD as tolerated by hemodynamics * today the catheter did not work very well. * She gets a tunneled dialysis catheter on Thursday * she got a short dialysis today removing about 1L. * follow trend of repeat labs and urine to assess for renal recovery (2) Acute on chronic respiratory failure with hypoxia and hypercapnia: Code(s): J96.21 - Acute and chronic respiratory failure with hypoxia; J96.22 - Acute and chronic respiratory failure with hypercapnia Status: Acute Assessment and Plan: * multifactorial etiology: * COPD * DOMINIC * CHF * pneumonia * on steroids and bronchodilators * follow culture data - sputum cx results Show lower respiratory tract organisms on Gram stain * broad spectrum antibiotic therapy * continue fluid removal with dialysis/HD * off the ventilator now. (3) Congestive heart failure: Code(s): I50.9 - Heart failure, unspecified Status: Acute Assessment and Plan: * as noted by testing on admission * s/p IV diuresis with limited response * Echo with diastolic heart failure and pulmonary HTN * follow volume status - fluid removal with dialysis/HD * Catheter did not work very well this morning. I asked the nurse to try it again this afternoon. * will give a couple of doses of Bumex. (4) Pneumonia: Code(s): J18.9 - Pneumonia, unspecified organism Status: Acute Assessment and Plan: * Finished the course of antibiotics. (5) COPD (chronic obstructive pulmonary disease): Code(s): J44.9 - Chronic obstructive pulmonary disease, unspecified Status: Chronic Assessment and Plan: * see #2 * continue current therapy (6) Urinary tract infection: Code(s): N39.0 - Urinary tract infection, site not specified Status: Acute Assessment and Plan: * Finished the course Subjective Date/time seen: 09/06/22 12:41 Interval history: 09/06/2022 patient is awake. She is extubated. She is a little confused. She denies shortness of breath. Exam Narrative: General: WD/WN female intubated and on mechanical ventilaltion Heart: normal S1 and S2; no rub or gallop Lungs: coarse breath sound; decreased at bases. Mildly increased expiratory phase Abdomen: soft, nontender, nondistended, positive bowel sounds Extremities: no cyanosis or clubbing; no edema Skin: no rash Objective Data Vital Signs Vital Signs: Vital Signs - 24 hr 09/05/22 13:45 09/05/22 13:45 09/05/22 14:01 Temperature Pulse Rate 88 93 91 Respiratory Rate 22 H 22 H 23 H Blood Pressure Pulse Oximetry 93 Oxygen Delivery BiPAP Oxygen Flow Rate Fraction of Inspired Oxygen 09/05/22 13:50 09/05/22 14:00 09/05/22 14:00 Temperature Pulse Rate 87 86 Resp
--- NOTE | 2022-09-06 12:41 | PM.PNNEP ---
Progress Note: A&P Assessment and Plan (1) Acute kidney injury: Code(s): N17.9 - Acute kidney failure, unspecified Status: Acute Assessment and Plan: FARZANEH evaluation to date urine electrolytes prerenal normal CPK renal ultrasound unremarkable no significant response to trial of IVFs given declining urine output and risng BUN + creatinine, initiated on HD (on 08/30/22) HD catheter in place follow electrolytes, volume status, and clearance fluid removal with HD as tolerated by hemodynamics today the catheter did not work very well. She gets a tunneled dialysis catheter on Thursday she got a short dialysis today removing about 1L. follow trend of repeat labs and urine to assess for renal recovery (2) Acute on chronic respiratory failure with hypoxia and hypercapnia: Code(s): J96.21 - Acute and chronic respiratory failure with hypoxia; J96.22 - Acute and chronic respiratory failure with hypercapnia Status: Acute Assessment and Plan: multifactorial etiology: COPD DOMINIC CHF pneumonia on steroids and bronchodilators follow culture data - sputum cx results Show lower respiratory tract organisms on Gram stain broad spectrum antibiotic therapy continue fluid removal with dialysis/HD off the ventilator now. (3) Congestive heart failure: Code(s): I50.9 - Heart failure, unspecified Status: Acute Assessment and Plan: as noted by testing on admission s/p IV diuresis with limited response Echo with diastolic heart failure and pulmonary HTN follow volume status - fluid removal with dialysis/HD Catheter did not work very well this morning. I asked the nurse to try it again this afternoon. will give a couple of doses of Bumex. (4) Pneumonia: Code(s): J18.9 - Pneumonia, unspecified organism Status: Acute Assessment and Plan: Finished the course of antibiotics. (5) COPD (chronic obstructive pulmonary disease): Code(s): J44.9 - Chronic obstructive pulmonary disease, unspecified Status: Chronic Assessment and Plan: see #2 continue current therapy (6) Urinary tract infection: Code(s): N39.0 - Urinary tract infection, site not specified Status: Acute Assessment and Plan: Finished the course Subjective Date/time seen: 09/06/22 12:41 Interval history: 09/06/2022 patient is awake. She is extubated. She is a little confused. She denies shortness of breath. Exam Narrative: General: WD/WN female intubated and on mechanical ventilaltion Heart: normal S1 and S2; no rub or gallop Lungs: coarse breath sound; decreased at bases. Mildly increased expiratory phase Abdomen: soft, nontender, nondistended, positive bowel sounds Extremities: no cyanosis or clubbing; no edema Skin: no rash Objective Data Vital Signs Vital Signs: Vital Signs - 24 hr 09/05/22 13:45 09/05/22 13:45 09/05/22 14:01 Temperature Pulse Rate 88 93 91 Respiratory Rate 22 H 22 H 23 H Blood Pressure Pulse Oximetry 93 Oxygen Delivery BiPAP Oxygen Flow Rate Fraction of Inspired Oxygen 09/05/22 13:50 09/05/22 14:00 09/05/22 14:00 Temperature Pulse Rate 87 86 Respiratory Rate 19 Blood Pressure 128/69 123/88 Pulse Oximetry 93 Oxygen Delivery Oxygen Flow Rate Fraction of Inspired Oxygen 09/05/22 16:24 09/05/22 16:00 09/05/22 16:00 Temperature Pulse Rate 88 80 Respiratory Rate 21 H Blood Pressure Pulse Oximetry 96 93 Oxygen Delivery BiPAP BiPAP Oxygen Flow Rate Fraction of Inspired Oxygen 50 09/05/22 16:00 09/05/22 18:00 09/05/22 18:00 Temperature 98.8 F Pulse Rate 81 79 85 Respiratory Rate 20 20 Blood Pressure 132/62 132/66 Pulse Oximetry 96 97 Oxygen Delivery Oxygen Flow Rate Fraction of Inspired Oxygen 09/05/22 20:55 09/05/22 20:00 09/05/22 20:00 Temperature Pulse
[2022-09-06] MEDS: LEVALBUTEROL NEB 1.25 MG/3 ML 0.63 MG INHALATION ×2 (13:19→20:22)
[2022-09-06 13:45] LABS: Anion Gap 18 mmol/L (8-16); Blood Urea Nitrogen 108 mg/dL (7-17); Calcium 10.4 mg/dL (8.4-10.2); Carbon Dioxide 20 mmol/L (22-30); Chloride 102 mmol/L (98-107); Estimated CRCL calculation 11 ml/min; Estimated Glomerular Filt Rate 8; Glucose 175 mg/dL (65-110); Potassium 5.3 mmol/L (3.4-5.0); Sodium 140 mmol/L (137-145)
--- NOTE | 2022-09-06 14:19 | PM.IMPN ---
Progress Note: A&P Assessment and Plan (1) Acute on chronic respiratory failure with hypoxia and hypercapnia: Code(s): J96.21 - Acute and chronic respiratory failure with hypoxia; J96.22 - Acute and chronic respiratory failure with hypercapnia Status: Acute Assessment and Plan: Multifactorial acute on chronic respiratory failure with hypoxia and hypercarbia secondary to COPD, obesity hypoventilation syndrome, CHF and community-acquired pneumonia Patient was intubated in the ER on 08/27/2022 extubated and placed on bipap 09/05/2022 Chest xary: Stable airspace opacities in the lower lung zones, consistent with atelectasis versus pneumonia. HD started to remove fluid. steroid discontinued continue on bronchodilator -08/27/22: Blood culture are negative till now -08/27/22: sputum cultures growing Haemophilus influenzae -vancomycin discontinued on 09/01/2022 -completed 7 days of ceftriaxone, azithromycin (discontinued on 09/03) -09/05: leukocytosis increased with low-grade fevers, lower extremity venous Dopplers negative, repeat blood cultures, sputum cultures, urine cultures -Influenza RSV and COVID negative - Urine Legionella and pneumococcal antigen are negative -Mycoplasma IgM was low -patient was dialyzed on 08/30, 08/31, 09/02, 09/04, 09/06 -patient diuresed on 09/03/2022 08/27/22 CT chest 1. Tree-in-bud opacities as can be seen with atypical infection (including but not limited to: MAC, TB, fungal), ABPA, airways disease, and less likely aspiration. 2. Nodular opacity in right upper lobe should be followed after the appropriate therapy and cessation of symptoms to ensure resolution. 3. Mediastinal lymphadenopathy. 4. Trace bilateral pleural effusions. 5. Mild interstitial edema Switched to nasal cannula 5-6 L. Which her home requirement BiPAP at night Continue to monitor in ICU (2) Chronic obstructive pulmonary disease: Code(s): J44.9 - Chronic obstructive pulmonary disease, unspecified Status: Acute Assessment and Plan: Continue mechanical ventilation, antibiotics and bronchodilators -off steroids (3) Congestive heart failure: Code(s): I50.9 - Heart failure, unspecified Status: Acute Assessment and Plan: hemodialysis to remove fluid 08/28/2022 Echocardiogram ?1. Left ventricular chamber dimension is normal. ? 2. Left ventricular systolic function is normal, estimated at 60-65%. ? 3. The left ventricular diastolic function is grade I diastolic dysfunction. ? 4. Right ventricular chamber dimension is moderately enlarged. ? 5. Right ventricular systolic function is normal. ? 6. There is moderate tricuspid valve regurgitation, which may be underestimated due to the eccentricity of the jet. ? 7. Dilated inferior vena cava with no collapse upon inspiration consistent with elevated right atrial pressure, 15 mmHg. ? 8. Pulmonary hypertension with an estimated PASP of 59mmHg. (4) Acute kidney injury: Code(s): N17.9 - Acute kidney failure, unspecified Status: Acute Assessment and Plan: Patient presented with normal creatinine but was given Lasix in ER and on presentation due to congestive heart failure Urine electrolytes suggest prerenal. Although echo shows dilated IVC with increased right atrial pressure, patient was given additional IV fluids but creatinine continuesdto increase Normal CK Unremarkable renal ultrasound - 08/30:: After discussion with Nephrology, left internal jugular hemodialysis catheter was placed and patient was started on hemodialysis with removal of 3000 mL of fluid - 08/31: 3500 fluid was removed - 09/02: 3000 mL fluid removal -09/04: 3000 mL fluid removal -09/06: 1 L fluid removal (5) Urinary tract infection: Code(s): N39.0 - Urinary tract infection, site not specified Status: Acute Assessment and Plan: UA suggestive of UTI. She has history of E coli UTI -08/27/2022: Urine culture is growing Klebsiella which is pansensi
[2022-09-06] MEDS: BUMETANIDE INJ 2.5 MG/10 ML VIAL 2 MG IV PUSH ×2 (14:36→17:24)
[2022-09-06] MEDS: SODIUM CHLORIDE 0.9% IV 1,000 ML 999 ML IV CONT (15:49)
[2022-09-06 18:08] LABS: Glucose Point of Care 116 mg/dl (65-105)
[2022-09-06 18:35] LABS: Anion Gap 20 mmol/L (8-16); Blood Urea Nitrogen 116 mg/dL (7-17); Calcium 10.1 mg/dL (8.4-10.2); Carbon Dioxide 19 mmol/L (22-30); Chloride 103 mmol/L (98-107); Estimated CRCL calculation 11 ml/min; Estimated Glomerular Filt Rate 7; Glucose 169 mg/dL (65-110); Potassium 5.3 mmol/L (3.4-5.0); Sodium 142 mmol/L (137-145)
[2022-09-06] MEDS: INSULIN HUMAN REGULAR (*BKC) 100 UNITS/ML 10 UNITS IV PUSH (19:01)
[2022-09-06] MEDS: SODIUM BICARBONATE 8.4% 50 MEQ/50 ML SYRINGE IV PUSH (19:02)
[2022-09-06] MEDS: DEXTROSE 50% 25 GM/50 ML SYRINGE IV PUSH (19:06)
[2022-09-06] MEDS: SODIUM ZIRCONIUM CYCLOSILICATE 10 GM POWD.PACK PO (20:11)
[2022-09-06] MEDS: hydrALAZINE HCL 20 MG/ML VIAL 10 MG IV PUSH (20:13)
[2022-09-06] MEDS: MINERAL OIL/WHITE PETROLATUM OINTMENT 1 APPLIC EACH EYE (20:16)
[2022-09-06 23:49] LABS: Alveolar/Arterial O2 Gradient 247.9 mmHg; Base Excess ABG -5.9 mEq/l (+/-2.0); Fractional Inspired Oxygen 100 %; HCO3 ABG 23.1 mEq/l (22.0-26.0); Oxygen Saturation ABG 99.7 % (95.0-100.0); Oxyhemoglobin 98.4 % THb (90.0-100.0); PO2 ABG 404.9 mmHg (80.0-100.0); PO2 FiO2 Ratio Arterial Blood 4.05 %; Total Hemoglobin 14.4 g/dL (12.0-18.0)
[2022-09-06 23:50] LABS: Device NON-INVASIVE VENT; Modified Allen's Test Pass; PCO2 ABG 60.2 mmHg (35.0-45.0); Site Drawn RIGHT RADIAL; pH ABG 7.201 (7.350-7.450)
[2022-09-06 23:51] LABS: Non-Invasive Expiratory Pressure 6 CMH2O; Non-Invasive Inspiratory Pressure 14 CMH2O; Non-Invasive Vent Rate 20 /MIN
[2022-09-07] VITALS (100 sets, daily range): BP systolic 89–203; BP diastolic 45–127; PULSE 83–156; RESP 14–29; TEMP 36.2–37.2; O2SAT 87–100
[2022-09-07 00:37] LABS: Hematocrit 42.9 % (37.0-47.0); Hemoglobin 13.3 g/dL (12.0-15.0); Mean Corpuscular Hemoglobin 28.5 pg (26-34); Mean Corpuscular Volume 91.9 fl (80-100); Mean Platelet Volume 9.5 fl (7.4-10.4); Platelet Count Result 388 k/mm3 (150-375); Red Blood Count 4.67 M/mm3 (4.2-5.4); Red Cell Distribution Width 14.3 % (11.5-14.5)
[2022-09-07 00:47] LABS: Lactic Acid Reflex 0.7 mmol/L (0.7-2.0)
[2022-09-07 00:53] LABS: Anion Gap 21 mmol/L (8-16); Calcium 9.9 mg/dL (8.4-10.2); Carbon Dioxide 19 mmol/L (22-30); Chloride 103 mmol/L (98-107); Estimated CRCL calculation 11 ml/min; Estimated Glomerular Filt Rate 7; Glucose 126 mg/dL (65-110); Magnesium 2.6 mg/dL (1.6-2.3); Sodium 143 mmol/L (137-145)
[2022-09-07 00:57] LABS: Blood Urea Nitrogen 121 mg/dL (7-17); Phosphorus 12.8 mg/dL (2.5-4.5)
[2022-09-07 01:14] LABS: Troponin I 0.044 ng/mL (0.000-0.034)
[2022-09-07] MEDS: LEVALBUTEROL NEB 1.25 MG/3 ML 0.63 MG INHALATION ×4 (02:15→19:51)
[2022-09-07] MEDS: IPRATROPIUM BR 0.02% INH SOLN 0.5 MG/2.5 ML VIAL INHALATION ×4 (02:15→19:51)
[2022-09-07] MEDS: hydrALAZINE HCL 20 MG/ML VIAL 10 MG IV PUSH (04:09)
[2022-09-07] MEDS: ONDANSETRON INJ 4 MG/2 ML VIAL IV PUSH (05:05)
[2022-09-07 05:12] LABS: Base Excess ABG -7.4 mEq/l (+/-2.0); Carboxyhemoglobin 0.2 % THb (0-2.0); HCO3 ABG 25.2 mEq/l (22.0-26.0); Methemoglobin ABG 0.5 %THb (0-1.5); Oxygen Content ABG 20.1 %vol (16.0-22.0); Oxygen Saturation ABG 97.3 % (95.0-100.0); Oxyhemoglobin 96.8 % THb (90.0-100.0); PO2 ABG 137.3 mmHg (80.0-100.0); PO2 FiO2 Ratio Arterial Blood 3.92 %; Reduced Hemoglobin 2.5 %THb (0-5.0); Total Hemoglobin 14.6 g/dL (12.0-18.0)
[2022-09-07] MEDS: ETOMIDATE 20 MG/10 ML AMPUL 15 MG IV PUSH (05:17)
[2022-09-07] MEDS: ROCURONIUM BROMIDE 50 MG/5 ML VIAL 80 MG IV PUSH (05:18)
[2022-09-07] MEDS: MIDAZOLAM 100MG/NS 100ML(*CRX) 100 MG/100 ML BAG IV CONT (05:53)
[2022-09-07] MEDS: FENTANYL 2,500MCG/NS250ML(*CRX 2,500 MCG/250 ML BAG IV CONT (05:55)
--- NOTE | 2022-09-07 05:55 | P.RRN_ITS ---
Critical Care Event Note Summary Code activated: No Narrative: Patient had significant decline and vomit to with aspiration while on BiPAP upon evaluation it was noted patient in moderate respiratory distress, altered mental status, lethargic, unresponsive. Objective: Unresponsive, respiratory distress Subjective: Unresponsive General: In bed in moderate respiratory distress, unresponsive. HEENT: Atraumatic normocephalic, PERRLA, EOM intact, supple no JVD. Respiratory: Tachypneic, diminished breath sounds. Cardiovascular: S1-S2 heard Abdomen: Soft nontender nondistended no hepatosplenomegaly Extremities: No edema, no clubbing. Central nervous system: Lethargy Assessment and plan; 1. Hypercarbic respiratory failure: ABG reviewed patient was placed on ventilator. The ventilator management as per button station worker critical care 2. Altered mental status: Likely secondary to toxic metabolic encephalopathy secondary to hypercarbia 3. Aspiration pneumonia: Patient placed on Zosyn and vancomycin, labs in progress. This case had a high probability of a clinically significant, sudden, or life threatening deterioration of this patient's condition which required my full and direct attention, intervention and personal management. Critical care time: 75 - 104 mins
[2022-09-07] MEDS: CENTRAL LINE FLUSH 10 ML IV PUSH ×4 (05:56→21:42)
--- NOTE | 2022-09-07 05:56 | WPDPROCEDUR ---
Procedures Intubation Intubation Date: 09/07/22 Intubation Time: 05:10 Sedative: etomidate Mg given: 15 Paralytic: rocuronium Mg given: 80 Laryngoscope: fiber optic video scope Assist device used: fiber optic device ET tube size: 7.5 Tube secured depth (cm): 26 Tube secured location: lips Tube placement confirmation: visualized tube passing through cords, equal breath sounds bilaterally, no breath sounds over epigastrium and confirmation by capnometry Patient tolerated procedure: well and no complications Intubation complications: none
[2022-09-07 06:01] LABS: Basophils Absolute Auto 0.3 K/mm3 (0.0-0.1); Basophils Percent Auto 0.7 % (0.2-1.2); Eosinophils Absolute Auto 0.2 K/mm3 (0-0.3); Eosinophils Percent Auto 0.6 % (0-4.4); Hematocrit 44.7 % (37.0-47.0); Hemoglobin 13.5 g/dL (12.0-15.0); Immature Granulocyte Absolute 1.95 K/mm3 (0.00-0.031); Immature Granulocyte Percent A 5.2 % (0-0.5); Lymphocytes Absolute Auto 2.23 K/mm3 (0.9-3.2); Mean Corpuscular HGB Conc 30.2 g/dl (32-36); Mean Corpuscular Hemoglobin 28.5 pg (26-34); Mean Corpuscular Volume 94.3 fl (80-100); Mean Platelet Volume 9.9 fl (7.4-10.4); Monocytes Absolute Auto 2.6 K/mm3 (0.1-0.6); Neutrophils Absolute Auto 29.9 K/mm3 (1.3-6.7); Neutrophils Percent Auto 80.5 % (45.5-73.1); Platelet Count Result 457 k/mm3 (150-375); Red Blood Count 4.74 M/mm3 (4.2-5.4); Red Cell Distribution Width 14.3 % (11.5-14.5); White Blood Count 37.2 K/mm3 (4.5-10.0)
[2022-09-07 06:08] LABS: Glucose Point of Care 217 mg/dl (65-105)
[2022-09-07 06:11] LABS: Alanine Aminotransferase 33 U/L (6-35); Alkaline Phosphatase 97 U/L (38-126); Anion Gap 22 mmol/L (8-16); Aspartate Amino Transferase 18 U/L (14-36); Bilirubin,Total 0.5 mg/dL (0.2-1.3); Calcium 9.4 mg/dL (8.4-10.2); Carbon Dioxide 19 mmol/L (22-30); Chloride 100 mmol/L (98-107); Estimated CRCL calculation 10 ml/min; Estimated Glomerular Filt Rate 6; Glucose 211 mg/dL (65-110); Magnesium 2.6 mg/dL (1.6-2.3); Sodium 141 mmol/L (137-145); Triglycerides 233 mg/dL (<150)
[2022-09-07 06:11] LABS: pH ABG 7.059 (7.350-7.450)
[2022-09-07 06:12] LABS: Device NON-INVASIVE VENT; Fractional Inspired Oxygen 100 %; Modified Allen's Test Pass; PCO2 ABG 91.4 mmHg (35.0-45.0); Site Drawn RIGHT RADIAL
[2022-09-07 06:13] LABS: Non-Invasive Expiratory Pressure 6 CMH2O; Non-Invasive Inspiratory Pressure 14 CMH2O; Non-Invasive Vent Rate 20 /MIN
[2022-09-07] MEDS: INSULIN ASPART (*BKC) 100 UNITS/ML SUB-Q ×2 (06:30→11:18)
[2022-09-07 06:46] LABS: Blood Urea Nitrogen 131 mg/dL (7-17); Phosphorus 15.9 mg/dL (2.5-4.5)
--- NOTE | 2022-09-07 07:35 | WPDINTPN ---
Progress Note: A&P Assessment and Plan (1) Sepsis: Code(s): A41.9 - Sepsis, unspecified organism Status: Acute Assessment and Plan: Leukocytosis, hypercapnic respiratory failure -WBC trending up -afebrile -09/05/2022 Blood cultures: Preliminary results are negative x2 -09/22/2022 urine cultures negative so far -09/22/2022 sputum cultures negative so far Patient was Re-intubated on 09/07/2022 due to possible aspiration, hypercapnia respiratory failure S seen on ABG, possible pneumonia -started patient on vancomycin and Zosyn (09/07) -blood pressures have remained stable (2) Acute on chronic respiratory failure with hypoxia and hypercapnia: Code(s): J96.21 - Acute and chronic respiratory failure with hypoxia; J96.22 - Acute and chronic respiratory failure with hypercapnia Status: Acute Assessment and Plan: Multifactorial acute on chronic respiratory failure with hypoxia and hypercarbia secondary to COPD, obesity hypoventilation syndrome, CHF and community-acquired pneumonia. Patient uses 5-6 L of oxygen at home all times and CPAP at night Patient was intubated in the ER on 08/27/2022 Extubated on 09/05/2022. Post extubation patient had some stridor, dyspnea, tachycardia and hypertension. Patient was given Decadron, racemic epinephrine with improvement RE intubated 09/07/2022, due to hypercapnic respiratory failure and possible aspiration she had emesis, will obtain post intubation and ABG -chest x-ray this morning:?Interstitial and airspace opacity in the bilateral lower lung zones which could represent mild pulmonary edema or pneumonia.. Possible very small right pleural effusion. ET tube and OG tube in place -Vancomycin and Zosyn was started 09/07 -Influenza RSV and COVID negative on admission - Urine Legionella and pneumococcal antigen are negative on admission -Mycoplasma IgM was low on admission 08/27/22 CT chest 1. Tree-in-bud opacities as can be seen with atypical infection (including but not limited to: MAC, TB, fungal), ABPA, airways disease, and less likely aspiration. 2. Nodular opacity in right upper lobe should be followed after the appropriate therapy and cessation of symptoms to ensure resolution. 3. Mediastinal lymphadenopathy. 4. Trace bilateral pleural effusions. 5. Mild interstitial edema (3) Acute kidney injury: Code(s): N17.9 - Acute kidney failure, unspecified Status: Acute Assessment and Plan: Patient presented with normal creatinine but was given Lasix in ER and on presentation due to congestive heart failure Urine electrolytes suggest prerenal. Although echo shows dilated IVC with increased right atrial pressure, patient was given additional IV fluids but creatinine continuesdto increase Normal CK Unremarkable renal ultrasound -dialysis started on 08/30/2022 -patient was dialyzed on 08/30, 08/31, 09/02, 09/03, 09/04 -patient was diuresed on 09/05 with 1000 mL in fluid removal as the dialysis catheter was not functioning well -discussed with Nephrology, likely will get a PermCath on Thursday09/08/2022 (4) Chronic obstructive pulmonary disease: Code(s): J44.9 - Chronic obstructive pulmonary disease, unspecified Status: Acute Assessment and Plan: Continue mechanical ventilation, antibiotics and bronchodilators -off steroids (5) Congestive heart failure: Code(s): I50.9 - Heart failure, unspecified Status: Acute Assessment and Plan: hemodialysis to remove fluid 08/28/2022 Echocardiogram ?1. Left ventricular chamber dimension is normal. ? 2. Left ventricular systolic function is normal, estimated at 60-65%. ? 3. The left ventricular diastolic function is grade I diastolic dysfunction. ? 4. Right ventricular chamber dimension is moderately enlarged. ? 5. Right ventricular systolic function is normal. ? 6. There is moderate tricuspid valve regurgitation, which may be underestimated due to the eccentricity of the jet. ?
[2022-09-07 08:05] LABS: Alveolar/Arterial O2 Gradient 171.7 mmHg; Base Excess ABG -4.6 mEq/l (+/-2.0); Fractional Inspired Oxygen 50 %; HCO3 ABG 23.3 mEq/l (22.0-26.0); Oxygen Content ABG 19.8 %vol (16.0-22.0); Oxygen Saturation ABG 97.9 % (95.0-100.0); Oxyhemoglobin 96.9 % THb (90.0-100.0); PO2 ABG 124.1 mmHg (80.0-100.0); PO2 FiO2 Ratio Arterial Blood 2.48 %; Total Hemoglobin 14.4 g/dL (12.0-18.0)
[2022-09-07 08:10] LABS: pH ABG 7.252 (7.350-7.450)
[2022-09-07 08:11] LABS: Arterial Blood Gas Vent Mode CMV; Arterial Blood Gas Ventilator rate 20 /MIN; Device VENTILATOR; Modified Allen's Test Pass; Site Drawn RIGHT RADIAL
[2022-09-07 08:11] LABS: Lactic Acid Reflex 0.9 mmol/L (0.7-2.0)
[2022-09-07 08:12] LABS: Arterial Blood Gas PEEP 8 cmH2O; Arterial Blood Gas Tidal Volume 450 ml
[2022-09-07] MEDS: PANTOPRAZOLE SODIUM IV 40 MG VIAL IV PUSH (09:13)
[2022-09-07] MEDS: BUMETANIDE INJ 2.5 MG/10 ML VIAL 2 MG IV PUSH ×2 (09:13→17:07)
--- NOTE | 2022-09-07 09:13 | P.PNNP_ITS ---
Progress Note: A&P Assessment and Plan (1) Acute kidney injury: Code(s): N17.9 - Acute kidney failure, unspecified Status: Acute Assessment and Plan: * FARZANEH * evaluation to date * urine electrolytes prerenal * normal CPK * renal ultrasound unremarkable * no significant response to trial of IVFs * given declining urine output and risng BUN + creatinine, initiated on HD (on 08/30/22) * HD catheter in place * Yesterday they tried to do dialysis in the morning but the catheter would not work they tried later in the afternoon again and in spite of repositioning catheter, reducing head movement etc they were unable to do much dialysis. 1L was removed yesterday. * She gets a tunneled dialysis catheter on Thursday * follow trend of repeat labs and urine to assess for renal recovery (2) Acute on chronic respiratory failure with hypoxia and hypercapnia: Code(s): J96.21 - Acute and chronic respiratory failure with hypoxia; J96.22 - Acute and chronic respiratory failure with hypercapnia Status: Acute Assessment and Plan: * multifactorial etiology: * COPD * DOMINIC * CHF * pneumonia * Now aspiration pneumonia is added to the list. * on steroids and bronchodilators * follow culture data - sputum cx results Show lower respiratory tract organisms on Gram stain * broad spectrum antibiotic therapy * Remove fluid when she gets a new catheter. (3) Congestive heart failure: Code(s): I50.9 - Heart failure, unspecified Status: Acute Assessment and Plan: * as noted by testing on admission * s/p IV diuresis with limited response * Echo shows diastolic heart failure and pulmonary HTN * follow volume status - fluid removal with dialysis/HD * Tunnel line will be placed tomorrow. Will do dialysis after that (4) Pneumonia: Code(s): J18.9 - Pneumonia, unspecified organism Status: Acute Assessment and Plan: * Because of the recent aspiration event, she is back on antibiotics. (5) COPD (chronic obstructive pulmonary disease): Code(s): J44.9 - Chronic obstructive pulmonary disease, unspecified Status: Chronic Assessment and Plan: * see #2 * continue current therapy (6) Urinary tract infection: Code(s): N39.0 - Urinary tract infection, site not specified Status: Acute Assessment and Plan: * Treatment completed Subjective Date/time seen: 09/07/22 09:13 Interval history: 09/06/2022 patient is awake. She is extubated. She is a little confused. She denies shortness of breath. 09/07/2022 Patient aspirated last night and needed to be intubated. Food was suctioned from her trachea. She is on 2 sedatives right now. She opens her eyes and regards the examiner, but does not interact much more than that. Exam Narrative: General: WD/WN female intubated and on mechanical ventilaltion. On sedatives. Heart: normal S1 and S2; no rub or gallop Lungs: coarse breath sounds bilaterally. Abdomen: soft, nontender, nondistended, positive bowel sounds Extremities: no edema Skin: no rash or subQ not Objective Data Vital Signs Vital Signs: Vital Signs - 24 hr 09/06/22 09:32 09/06/22 09:32 09/06/22 09:39 Temperature Pulse Rate 114 H Respiratory Rate Blood Pressure 130/97 H 142/85 H Pulse Oximetry 87 L Oxygen [employer]
--- NOTE | 2022-09-07 09:13 | PM.PNNEP ---
Progress Note: A&P Assessment and Plan (1) Acute kidney injury: Code(s): N17.9 - Acute kidney failure, unspecified Status: Acute Assessment and Plan: FARZANEH evaluation to date urine electrolytes prerenal normal CPK renal ultrasound unremarkable no significant response to trial of IVFs given declining urine output and risng BUN + creatinine, initiated on HD (on 08/30/22) HD catheter in place Yesterday they tried to do dialysis in the morning but the catheter would not work they tried later in the afternoon again and in spite of repositioning catheter, reducing head movement etc they were unable to do much dialysis. 1L was removed yesterday. She gets a tunneled dialysis catheter on Thursday follow trend of repeat labs and urine to assess for renal recovery (2) Acute on chronic respiratory failure with hypoxia and hypercapnia: Code(s): J96.21 - Acute and chronic respiratory failure with hypoxia; J96.22 - Acute and chronic respiratory failure with hypercapnia Status: Acute Assessment and Plan: multifactorial etiology: COPD DOMINIC CHF pneumonia Now aspiration pneumonia is added to the list. on steroids and bronchodilators follow culture data - sputum cx results Show lower respiratory tract organisms on Gram stain broad spectrum antibiotic therapy Remove fluid when she gets a new catheter. (3) Congestive heart failure: Code(s): I50.9 - Heart failure, unspecified Status: Acute Assessment and Plan: as noted by testing on admission s/p IV diuresis with limited response Echo shows diastolic heart failure and pulmonary HTN follow volume status - fluid removal with dialysis/HD Tunnel line will be placed tomorrow. Will do dialysis after that (4) Pneumonia: Code(s): J18.9 - Pneumonia, unspecified organism Status: Acute Assessment and Plan: Because of the recent aspiration event, she is back on antibiotics. (5) COPD (chronic obstructive pulmonary disease): Code(s): J44.9 - Chronic obstructive pulmonary disease, unspecified Status: Chronic Assessment and Plan: see #2 continue current therapy (6) Urinary tract infection: Code(s): N39.0 - Urinary tract infection, site not specified Status: Acute Assessment and Plan: Treatment completed Subjective Date/time seen: 09/07/22 09:13 Interval history: 09/06/2022 patient is awake. She is extubated. She is a little confused. She denies shortness of breath. 09/07/2022 Patient aspirated last night and needed to be intubated. Food was suctioned from her trachea. She is on 2 sedatives right now. She opens her eyes and regards the examiner, but does not interact much more than that. Exam Narrative: General: WD/WN female intubated and on mechanical ventilaltion. On sedatives. Heart: normal S1 and S2; no rub or gallop Lungs: coarse breath sounds bilaterally. Abdomen: soft, nontender, nondistended, positive bowel sounds Extremities: no edema Skin: no rash or subQ not Objective Data Vital Signs Vital Signs: Vital Signs - 24 hr 09/06/22 09:32 09/06/22 09:32 09/06/22 09:39 Temperature Pulse Rate 114 H Respiratory Rate Blood Pressure 130/97 H 142/85 H Pulse Oximetry 87 L Oxygen Delivery High Flow Nasal Cannula Oxygen Flow Rate 6 Fraction of Inspired Oxygen 09/06/22 09:34 09/06/22 09:59 09/06/22 10:00 Temperature Pulse Rate 114 H 106 H Respiratory Rate 19 Blood Pressure 173/79 H 173/79 H Pulse Oximetry 94 93 Oxygen Delivery High Flow Nasal Cannula Oxygen Flow Rate 6 Fraction of Inspired Oxygen 09/06/22 10:48 09/06/22 12:00 09/06/22 13:19 Temperature 98.5 F Pulse Rate 104 H 97 Respiratory Rate 22 H 21 H Blood Pressure 126/73 140/74 Pulse Oximetry 97 Oxygen Delivery Oxygen Flow Rate Fraction of Inspired Oxygen 09/06/22 13:20 01
[2022-09-07] MEDS: APIXABAN 2.5 MG TABLET FEED TUBE ×2 (09:14→21:41)
[2022-09-07] MEDS: ESCITALOPRAM OXALATE 10 MG TABLET 20 MG PO (09:14)
[2022-09-07] MEDS: MINERAL OIL/WHITE PETROLATUM OINTMENT 1 APPLIC EACH EYE ×3 (09:14→21:42)
--- NOTE | 2022-09-07 09:32 | ECG_ITS ---
Measurements Intervals [place] Rate: 106 P: -48 [place]: 138 QRS: 32 QRSD: 138 T: 30 QT: 343 QTc: 456 Interpretive Statements SINUS TACHYCARDIA POSSIBLE LEFT ATRIAL ENLARGEMENT RIGHT BUNDLE BRANCH BLOCK ABNORMAL ECG COMPARED TO ECG 08/27/2022 06:47:03 NO SIGNIFICANT CHANGES Electronically Signed On 09-07-2022 13:57:54 [employer]PLICATION OPERATIONS ENGINEER by Hong Meade D.O.
[2022-09-07 09:33] LABS: Glucose Point of Care 145 mg/dl (65-105)
[2022-09-07 09:50] LABS: Hematocrit 41.1 % (37.0-47.0); Hemoglobin 12.4 g/dL (12.0-15.0); Mean Corpuscular HGB Conc 30.2 g/dl (32-36); Mean Corpuscular Hemoglobin 28.2 pg (26-34); Mean Corpuscular Volume 93.6 fl (80-100); Mean Platelet Volume 9.9 fl (7.4-10.4); Platelet Count Result 416 k/mm3 (150-375); Red Blood Count 4.39 M/mm3 (4.2-5.4); Red Cell Distribution Width 14.4 % (11.5-14.5); White Blood Count 36.3 K/mm3 (4.5-10.0)
[2022-09-07 09:51] LABS: Alveolar/Arterial O2 Gradient 157.8 mmHg; Carboxyhemoglobin 0.4 % THb (0-2.0); Fractional Inspired Oxygen 45 %; Methemoglobin ABG 0.4 %THb (0-1.5); Oxygen Content ABG 18.1 %vol (16.0-22.0); Oxygen Saturation ABG 93.3 % (95.0-100.0); Oxyhemoglobin 93.5 % THb (90.0-100.0); PO2 ABG 86.4 mmHg (80.0-100.0); PO2 FiO2 Ratio Arterial Blood 1.92 %; Reduced Hemoglobin 5.7 %THb (0-5.0); Total Hemoglobin 13.7 g/dL (12.0-18.0)
[2022-09-07 09:53] LABS: PCO2 ABG 67.4 mmHg (35.0-45.0)
[2022-09-07 09:54] LABS: Device VENTILATOR; Modified Allen's Test Pass; Site Drawn RIGHT RADIAL
[2022-09-07 09:55] LABS: Arterial Blood Gas PEEP 5 cmH2O; Arterial Blood Gas Tidal Volume 450 ml; Arterial Blood Gas Vent Mode CMV; Arterial Blood Gas Ventilator rate 20 /MIN
[2022-09-07 10:01] LABS: INR 1.2; Prothrombin Time 14.9 Seconds (11.1-14.7)
[2022-09-07 10:03] LABS: Anion Gap 24 mmol/L (8-16); Calcium 8.8 mg/dL (8.4-10.2); Carbon Dioxide 21 mmol/L (22-30); Chloride 98 mmol/L (98-107); Estimated CRCL calculation 10 ml/min; Estimated Glomerular Filt Rate 7; Glucose 375 mg/dL (65-110); Magnesium 2.8 mg/dL (1.6-2.3); Potassium 5.1 mmol/L (3.4-5.0); Sodium 143 mmol/L (137-145)
[2022-09-07 10:14] LABS: Blood Urea Nitrogen 135 mg/dL (7-17); Phosphorus 15.1 mg/dL (2.5-4.5)
[2022-09-07 10:29] LABS: Band Neutrophils Percent 7 % (0-6); Lymphocytes Absolute Manual 3.99 K/mm3 (1.1-4.5); Metamyelocytes Percent 1 %; Monocytes Absolute Manual 1.45 K/mm3 (0.1-0.90); Monocytes Percent Manual 4 % (3-9); Myelocytes Percent 7 %; Neutrophils Absolute Manual 27.95 K/mm3 (1.7-7.2); Neutrophils Percent Manual 70 % (46-73); Total Cells Counted 100
[2022-09-07] MEDS: ROCURONIUM BROMIDE 50 MG/5 ML VIAL IV PUSH (10:29)
[2022-09-07] MEDS: ETOMIDATE 40 MG/20 ML VIAL 20 MG IV PUSH (10:29)
[2022-09-07 10:30] LABS: Platelet Estimate Increased (Adequate); Schistocytes None Seen (NORMAL)
--- NOTE | 2022-09-07 10:31 | PDCODEBLUE ---
Code Blue Note Code Blue Note Time Arrived at Code Blue: 09/07/2022 9:27 a.m. Initial Rhythm on Arrival: Asystole Cardiac Rhythm Post Code: SVT Code Blue Summary: Nurses with turning the patient and cleaning her when she desaturated and became ashen in color, I was called and went to the bedside immediately which she initially had a pulse and was difficult to bag her, and then she lost her pulse at 9:27 a.m. and CPR was started. Patient was given 1 round of epinephrine, bicarbonate and D50 and we had return of spontaneous circulation and 9:29 a.m. patient was placed back on the ventilator. On examination patient had bilateral breath sounds, chest x-ray showed ET tube in appropriate position, bilateral lung infiltrates and/or atelectasis right greater than left. Patient opens her eyes, follows simple commands in bilateral upper and lower extremities. [place] labs and ABGs were ordered
--- NOTE | 2022-09-07 10:36 | WPDPROCEDUR ---
Procedures Intubation Intubation Date: 09/07/22 Intubation Time: 10:30 Consent: Emergent intubation as patient was desaturating, was unable to bag the patient, decided to remove the ETT and bagged the patient. Once ETT was out it was shown to be clogged at the end with thick secretions. Once patient was bagged her O2 sats were 100%. Sedative: etomidate Paralytic: rocuronium Laryngoscope: fiber optic video scope Assist device used: fiber optic device ET tube size: 7.5 Tube secured depth (cm): 22 Tube secured location: lips Tube placement confirmation: visualized tube passing through cords, equal breath sounds bilaterally, no breath sounds over epigastrium and confirmation by capnometry Patient tolerated procedure: well Intubation complications: none
[2022-09-07] MEDS: SODIUM ZIRCONIUM CYCLOSILICATE 10 GM POWD.PACK PO (11:10)
[2022-09-07 11:39] LABS: Glucose Point of Care 328 mg/dl (65-105)
[2022-09-07 12:48] LABS: Reflex Lactic Acid Yes or No Add Lactic
[2022-09-07] MEDS: DORNASE ALFA INH SOLN 1 MG/ML 2.5 ML AMP 2.5 MG INHALATION ×2 (12:55→19:53)
[2022-09-07 13:06] LABS: Alveolar/Arterial O2 Gradient 359.2 mmHg; Base Excess ABG -1.6 mEq/l (+/-2.0); Carboxyhemoglobin 0.2 % THb (0-2.0); Fractional Inspired Oxygen 80 %; HCO3 ABG 25.5 mEq/l (22.0-26.0); Methemoglobin ABG 0.3 %THb (0-1.5); Oxygen Content ABG 19.4 %vol (16.0-22.0); Oxygen Saturation ABG 98.8 % (95.0-100.0); Oxyhemoglobin 97.9 % THb (90.0-100.0); PCO2 ABG 52.2 mmHg (35.0-45.0); PO2 ABG 156.4 mmHg (80.0-100.0); PO2 FiO2 Ratio Arterial Blood 1.95 %; Reduced Hemoglobin 1.6 %THb (0-5.0); Total Hemoglobin 13.9 g/dL (12.0-18.0); pH ABG 7.306 (7.350-7.450)
[2022-09-07 13:08] LABS: Arterial Blood Gas PEEP 5 cmH2O; Arterial Blood Gas Vent Mode CMV; Arterial Blood Gas Ventilator rate 20 /MIN; Device VENTILATOR; Modified Allen's Test Pass; Site Drawn RIGHT RADIAL
[2022-09-07 13:09] LABS: Arterial Blood Gas Tidal Volume 450 ml
[2022-09-07 13:32] LABS: Appearance Urine Slightly Cloudy (Clear); Bilirubin Urine Negative (Negative); Blood Urine 2+ (Negative); Color Urine Yellow (Yellow); Glucose Urine UA Negative (Negative); Ketones Urine Negative (Negative); Leukocyte Esterase Ur 1+ LEU/UL (NEGATIVE); Nitrate Urine Negative (Negative); Protein Urine 2+ mg/dL (Negative); Specific Grav Ur >= 1.030 (1.001-1.035); Urobilinogen Urine 0.2 mg/dL (<2.0)
--- NOTE | 2022-09-07 13:40 | PM.IMPN ---
Progress Note: A&P Assessment and Plan (1) Acute on chronic respiratory failure with hypoxia and hypercapnia: Code(s): J96.21 - Acute and chronic respiratory failure with hypoxia; J96.22 - Acute and chronic respiratory failure with hypercapnia Status: Acute Assessment and Plan: Multifactorial acute on chronic respiratory failure with hypoxia and hypercarbia secondary to COPD, obesity hypoventilation syndrome, CHF and community-acquired pneumonia Patient was intubated in the ER on 08/27/2022 extubated and placed on bipap 09/05/2022 Chest xary: Stable airspace opacities in the lower lung zones, consistent with atelectasis versus pneumonia. HD started to remove fluid. steroid discontinued continue on bronchodilator -08/27/22: Blood culture are negative till now -08/27/22: sputum cultures growing Haemophilus influenzae -vancomycin discontinued on 09/01/2022 -completed 7 days of ceftriaxone, azithromycin (discontinued on 09/03) -09/05: leukocytosis increased with low-grade fevers, lower extremity venous Dopplers negative, repeat blood cultures, sputum cultures, urine cultures -Influenza RSV and COVID negative - Urine Legionella and pneumococcal antigen are negative -Mycoplasma IgM was low -patient was dialyzed on 08/30, 08/31, 09/02, 09/04, 09/06 -patient diuresed on 09/03/2022 08/27/22 CT chest 1. Tree-in-bud opacities as can be seen with atypical infection (including but not limited to: MAC, TB, fungal), ABPA, airways disease, and less likely aspiration. 2. Nodular opacity in right upper lobe should be followed after the appropriate therapy and cessation of symptoms to ensure resolution. 3. Mediastinal lymphadenopathy. 4. Trace bilateral pleural effusions. 5. Mild interstitial edema Switched to nasal cannula 5-6 L. Which her home requirement BiPAP at night Continue to monitor in ICU 09/07/2022 reintubated due to hypercapnic respiratory failure and possible aspiration with emesis. Vanc and Zosyn started (2) Chronic obstructive pulmonary disease: Code(s): J44.9 - Chronic obstructive pulmonary disease, unspecified Status: Acute Assessment and Plan: Continue mechanical ventilation, antibiotics and bronchodilators -off steroids (3) Congestive heart failure: Code(s): I50.9 - Heart failure, unspecified Status: Acute Assessment and Plan: hemodialysis to remove fluid 08/28/2022 Echocardiogram ?1. Left ventricular chamber dimension is normal. ? 2. Left ventricular systolic function is normal, estimated at 60-65%. ? 3. The left ventricular diastolic function is grade I diastolic dysfunction. ? 4. Right ventricular chamber dimension is moderately enlarged. ? 5. Right ventricular systolic function is normal. ? 6. There is moderate tricuspid valve regurgitation, which may be underestimated due to the eccentricity of the jet. ? 7. Dilated inferior vena cava with no collapse upon inspiration consistent with elevated right atrial pressure, 15 mmHg. ? 8. Pulmonary hypertension with an estimated PASP of 59mmHg. (4) Acute kidney injury: Code(s): N17.9 - Acute kidney failure, unspecified Status: Acute Assessment and Plan: Patient presented with normal creatinine but was given Lasix in ER and on presentation due to congestive heart failure Urine electrolytes suggest prerenal. Although echo shows dilated IVC with increased right atrial pressure, patient was given additional IV fluids but creatinine continuesdto increase Normal CK Unremarkable renal ultrasound - 08/30:: After discussion with Nephrology, left internal jugular hemodialysis catheter was placed and patient was started on hemodialysis with removal of 3000 mL of fluid - 08/31: 3500 fluid was removed - 09/02: 3000 mL fluid removal -09/04: 3000 mL fluid removal -09/06: 1 L fluid removal Plan for PermCath placement on 09/08/2022 has dialysis catheter not functioning well (5) Urinary tract infection: Code(s): N39.0 - Urinary
[2022-09-07 13:41] LABS: Bacteria Urine Trace /hpf; Hyaline Casts Urine 20-29 /lpf; Mucus Urine Rare /lpf; RBC Urine 51-75 /hpf (0-2); Squamous Epithelial Cell Urine Occasional /hpf (Few); WBC Clumps Urine Present /HPF; WBC Urine >75 /hpf (0-3)
[2022-09-07 13:42] LABS: Add Urine Microscopic? YES; Lactic Acid 1.1 mmol/L (0.7-2.0)
[2022-09-07 17:06] LABS: Glucose Point of Care 71 mg/dl (65-105)
[2022-09-07 20:56] LABS: Glucose Point of Care 100 mg/dl (65-105)
[2022-09-08] VITALS (37 sets, daily range): BP systolic 98–118; BP diastolic 57–70; PULSE 90–104; RESP 17–28; TEMP 36.3–37.1; O2SAT 92–98; BMI 36.7
[2022-09-08] MEDS: LEVALBUTEROL NEB 1.25 MG/3 ML 0.63 MG INHALATION ×4 (03:17→21:03)
[2022-09-08] MEDS: IPRATROPIUM BR 0.02% INH SOLN 0.5 MG/2.5 ML VIAL INHALATION ×4 (03:17→21:04)
[2022-09-08 04:32] LABS: Basophils Absolute Auto 0.1 K/mm3 (0.0-0.1); Basophils Percent Auto 0.4 % (0.2-1.2); Eosinophils Absolute Auto 0.1 K/mm3 (0-0.3); Eosinophils Percent Auto 0.3 % (0-4.4); Hematocrit 39.9 % (37.0-47.0); Hemoglobin 12.8 g/dL (12.0-15.0); Immature Granulocyte Absolute 0.74 K/mm3 (0.00-0.031); Immature Granulocyte Percent A 2.7 % (0-0.5); Lymphocytes Absolute Auto 3.03 K/mm3 (0.9-3.2); Lymphocytes Percent Auto 11.2 % (18.3-44.2); Mean Corpuscular HGB Conc 32.1 g/dl (32-36); Mean Corpuscular Hemoglobin 28.4 pg (26-34); Mean Corpuscular Volume 88.5 fl (80-100); Mean Platelet Volume 9.8 fl (7.4-10.4); Monocytes Absolute Auto 1.8 K/mm3 (0.1-0.6); Monocytes Percent Auto 6.5 % (2.6-8.5); Neutrophils Absolute Auto 21.3 K/mm3 (1.3-6.7); Neutrophils Percent Auto 78.9 % (45.5-73.1); Platelet Count Result 340 k/mm3 (150-375); Red Blood Count 4.51 M/mm3 (4.2-5.4); Red Cell Distribution Width 14.1 % (11.5-14.5)
[2022-09-08 04:53] LABS: Alanine Aminotransferase 30 U/L (6-35); Albumin Level 4.5 g/dL (3.5-5.1); Alkaline Phosphatase 83 U/L (38-126); Anion Gap 21 mmol/L (8-16); Aspartate Amino Transferase 19 U/L (14-36); Bilirubin,Total 0.9 mg/dL (0.2-1.3); Carbon Dioxide 23 mmol/L (22-30); Chloride 95 mmol/L (98-107); Estimated CRCL calculation 8 ml/min; Estimated Glomerular Filt Rate 5; Glucose 133 mg/dL (65-110); Magnesium 2.6 mg/dL (1.6-2.3); Phosphorus 12.6 mg/dL (2.5-4.5); Potassium 4.9 mmol/L (3.4-5.0); Sodium 139 mmol/L (137-145)
[2022-09-08 05:19] LABS: Hypochromasia 2+ (NORMAL); Platelet Estimate Adequate (Adequate); Schistocytes None Seen (NORMAL)
[2022-09-08 05:45] LABS: Alveolar/Arterial O2 Gradient 160.9 mmHg; Base Excess ABG -3.7 mEq/l (+/-2.0); Carboxyhemoglobin 0.6 % THb (0-2.0); Fractional Inspired Oxygen 40 %; HCO3 ABG 22.3 mEq/l (22.0-26.0); Methemoglobin ABG 0.2 %THb (0-1.5); Oxygen Content ABG 17.7 %vol (16.0-22.0); Oxygen Saturation ABG 93.8 % (95.0-100.0); Oxyhemoglobin 91.5 % THb (90.0-100.0); PCO2 ABG 43.9 mmHg (35.0-45.0); PO2 ABG 73.8 mmHg (80.0-100.0); PO2 FiO2 Ratio Arterial Blood 1.85 %; Reduced Hemoglobin 7.7 %THb (0-5.0); Total Hemoglobin 13.7 g/dL (12.0-18.0); pH ABG 7.323 (7.350-7.450)
[2022-09-08 05:46] LABS: Site Drawn RIGHT RADIAL
[2022-09-08 05:47] LABS: Arterial Blood Gas PEEP 5 cmH2O; Arterial Blood Gas Tidal Volume 450 ml; Arterial Blood Gas Vent Mode CMV; Arterial Blood Gas Ventilator rate 20 /MIN; Device VENTILATOR; Modified Allen's Test Pass
[2022-09-08] MEDS: CENTRAL LINE FLUSH 10 ML IV PUSH ×4 (05:58→20:37)
[2022-09-08 06:01] LABS: Blood Urea Nitrogen 156 mg/dL (7-17)
[2022-09-08] MEDS: PANTOPRAZOLE SODIUM IV 40 MG VIAL IV PUSH (08:41)
[2022-09-08] MEDS: BUMETANIDE INJ 2.5 MG/10 ML VIAL 2 MG IV PUSH ×2 (08:41→17:54)
[2022-09-08] MEDS: ESCITALOPRAM OXALATE 10 MG TABLET 20 MG PO (08:42)
[2022-09-08] MEDS: MINERAL OIL/WHITE PETROLATUM OINTMENT 1 APPLIC EACH EYE ×4 (08:42→20:29)
[2022-09-08] MEDS: APIXABAN 2.5 MG TABLET FEED TUBE ×2 (08:42→20:29)
[2022-09-08] MEDS: DORNASE ALFA INH SOLN 1 MG/ML 2.5 ML AMP 2.5 MG INHALATION (10:01)
--- NOTE | 2022-09-08 10:09 | PM.PNNEP ---
Progress Note: A&P Assessment and Plan (1) Acute kidney injury: Code(s): N17.9 - Acute kidney failure, unspecified Status: Acute Assessment and Plan: suspect due to ATN evaluation to date urine electrolytes prerenal normal CPK renal ultrasound unremarkable no significant response to trial of IVFs given declining urine output and risng BUN + creatinine, initiated on HD (on 08/30/22) poor dialysis treatment on Thursday (09/06/22) plan tunneled HD catheter placement today resume dialysis treatment tomorrow follow trend of repeat labs and urine to assess for renal recovery (2) Acute on chronic respiratory failure with hypoxia and hypercapnia: Code(s): J96.21 - Acute and chronic respiratory failure with hypoxia; J96.22 - Acute and chronic respiratory failure with hypercapnia Status: Acute Assessment and Plan: multifactorial etiology: COPD DOMINIC CHF pneumonia now aspiration pneumonia is added to the list. on steroids and bronchodilators follow culture data broad spectrum antibiotic therapy ongoing fluid removal with dialysis (3) Congestive heart failure: Code(s): I50.9 - Heart failure, unspecified Status: Acute Assessment and Plan: as noted by testing on admission s/p IV diuresis with limited response Echo shows diastolic heart failure and pulmonary HTN follow volume status - fluid removal with dialysis/HD plan HD tomorrow with fluid removal as tolerated (4) Pneumonia: Code(s): J18.9 - Pneumonia, unspecified organism Status: Acute Assessment and Plan: due to concerns for aspiration, on antibiotics follow repeat culture data (5) COPD (chronic obstructive pulmonary disease): Code(s): J44.9 - Chronic obstructive pulmonary disease, unspecified Status: Chronic Assessment and Plan: see #2 continue current therapy Will continue to follow. Subjective Date/time seen: 09/08/22 10:09 Chart reviewed - assuming care from Dr. Hernadez; events noted yesterday with regard to possible aspiration, need for re-intubation, and subsequen rapid response/code blue; remains hemodynamically stable but significant rise in BUN + creatinine noted with associated low urine output; tentatively scheduled for tunneled HD catheter placement today; remains intubated and on mechanical ventilation. Exam Narrative: General: WD/WN female intubated and on mechanical ventilaltion. Heart: normal S1 and S2; no rub Lungs: coarse breath sounds bilaterally Abdomen: soft, nontender, nondistended, positive bowel sounds Extremities: trace edema Skin: warm and dry Objective Data Vital Signs Vital Signs: Vital Signs Temp Pulse Resp BP Pulse Ox O2 Del Method FiO2 09/08/22 10:00 104 H 20 104/70 97 09/08/22 10:05 100 95 Mechanical Ventilation 50 09/08/22 10:02 99 20 09/08/22 08:00 100 09/08/22 08:00 40 09/08/22 08:00 100 22 H 96 Mechanical Ventilation 40 09/08/22 07:35 98.8 F 99 25 H 110/64 95 09/08/22 05:12 90 95 Mechanical Ventilation 40 09/08/22 06:00 102 H 22 H 98/64 L 93 09/08/22 05:59 102 H 09/08/22 04:00 94 20 94 Mechanical Ventilation 40 09/08/22 04:00 40 09/08/22 04:00 97 09/08/22 04:00 97.8 F 94 20 108/67 93 09/07/22 23:15 94 20 09/08/22 02:15 93 95 Mechanical Ventilation 40 09/08/22 02:00 96 09/08/22 02:00 96 22 H 107/63 93 09/08/22 00:00 94 20 94 Mechanical Ventilation 40 09/08/22 00:00 40 09/08/22 00:00 97.3 F L 94 20 112/57 L 94 09/08/22 00:00 94 09/07/22 22:56 93 94 Mechanical Ventilation 40 09/07/22 22:00 92 09/07/22 22:00 93 22 H 119/58 L 92 09/07/22 20:00 97 20 94 Mechanical Ventilation 40 09/07/22 20:00 40 09/07/22 20:00 97 09/07/22 20:00 97.5 F L 97 20 117/5
--- NOTE | 2022-09-08 10:09 | P.PNNP_ITS ---
Progress Note: A&P Assessment and Plan (1) Acute kidney injury: Code(s): N17.9 - Acute kidney failure, unspecified Status: Acute Assessment and Plan: * suspect due to ATN * evaluation to date * urine electrolytes prerenal * normal CPK * renal ultrasound unremarkable * no significant response to trial of IVFs * given declining urine output and risng BUN + creatinine, initiated on HD (on 08/30/22) * poor dialysis treatment on Thursday (09/06/22) * plan tunneled HD catheter placement today * resume dialysis treatment tomorrow * follow trend of repeat labs and urine to assess for renal recovery (2) Acute on chronic respiratory failure with hypoxia and hypercapnia: Code(s): J96.21 - Acute and chronic respiratory failure with hypoxia; J96.22 - Acute and chronic respiratory failure with hypercapnia Status: Acute Assessment and Plan: * multifactorial etiology: * COPD * DOMINIC * CHF * pneumonia * now aspiration pneumonia is added to the list. * on steroids and bronchodilators * follow culture data * broad spectrum antibiotic therapy * ongoing fluid removal with dialysis (3) Congestive heart failure: Code(s): I50.9 - Heart failure, unspecified Status: Acute Assessment and Plan: * as noted by testing on admission * s/p IV diuresis with limited response * Echo shows diastolic heart failure and pulmonary HTN * follow volume status - fluid removal with dialysis/HD * plan HD tomorrow with fluid removal as tolerated (4) Pneumonia: Code(s): J18.9 - Pneumonia, unspecified organism Status: Acute Assessment and Plan: * due to concerns for aspiration, on antibiotics * follow repeat culture data (5) COPD (chronic obstructive pulmonary disease): Code(s): J44.9 - Chronic obstructive pulmonary disease, unspecified Status: Chronic Assessment and Plan: * see #2 * continue current therapy Will continue to follow. Subjective Date/time seen: 09/08/22 10:09 Chart reviewed - assuming care from Dr. Hernadez; events noted yesterday with regard to possible aspiration, need for re-intubation, and subsequen rapid response/code blue; remains hemodynamically stable but significant rise in BUN + creatinine noted with associated low urine output; tentatively scheduled for tunneled HD catheter placement today; remains intubated and on mechanical ve ntilation. Exam Narrative: General: WD/WN female intubated and on mechanical ventilaltion. Heart: normal S1 and S2; no rub Lungs: coarse breath sounds bilaterally Abdomen: soft, nontender, nondistended, positive bowel sounds Extremities: trace edema Skin: warm and dry Objective Data Vital Signs Vital Signs: Vital Signs Temp Pulse Resp BP Pulse Ox O2 Del Method FiO2 09/08/22 10:00 104 H 20 104/70 97 09/08/22 10:05 100 95 Mechanical Ventilation 50 09/08/22 10:02 99 20 09/08/22 08:00 100 09/08/22 08:00 40 09/08/22 08:00 100 22 H 96 Mechanical Ventilation 40 09/08/22 07:35 98.8 F 99 25 H 110/64 95 09/08/22 05:12 90 95 Mechanical Ventilation 40 09/08/22 06:00 102 H 22 H 98/64 L 93 09/08/22 05:59 102 H 09/08/22 04:00 94 20 94 Mechanical Ventilation 40 09/08/22 04:00 40
--- NOTE | 2022-09-08 10:50 | PM.CNGS ---
Assessment and Plan Assessment and plan (1) Complication, dialysis catheter clot or failure: Status: Acute Assessment and Plan: Left IJ temporary dialysis catheter placed on 08/30/22 after failed attempt on the right side. Over the weekend, they were unable to complete dialysis due to the left IJ catheter not functioning well. Nephrology has requested tunneled dialysis catheter placement. I have discussed the patient's case and plan of care with Dr. Gauthier. He will speak with the OR to try and add the patient onto the OR schedule later today for placement of Permacath. If this is more urgent and unable to add her onto the schedule until later today, then another option would be trying to exchange the left IJ catheter over a guidewire today at the bedside. Dr. Gauthier will call the OR and plan accordingly. Thank you for allowing us to see the patient in consultation. (2) Acute kidney injury: Code(s): N17.9 - Acute kidney failure, unspecified Status: Acute (3) Acute on chronic respiratory failure with hypoxia and hypercapnia: Code(s): J96.21 - Acute and chronic respiratory failure with hypoxia; J96.22 - Acute and chronic respiratory failure with hypercapnia Status: Acute (4) Pneumonia: Code(s): J18.9 - Pneumonia, unspecified organism Status: Acute (5) Sepsis: Code(s): A41.9 - Sepsis, unspecified organism Status: Acute (6) Urinary tract infection: Code(s): N39.0 - Urinary tract infection, site not specified Status: Acute (7) Chronic anticoagulation: Code(s): Z79.01 - [facility] (current) use of anticoagulants Status: Acute Assessment and Plan: Currently on Eliquis 2.5 mg Q12H with last dose this morning. Discussed this with Dr. Gauthier. Increases surgical risks. (8) Chronic obstructive pulmonary disease: Code(s): J44.9 - Chronic obstructive pulmonary disease, unspecified Status: Acute (9) Congestive heart failure: Code(s): I50.9 - Heart failure, unspecified Status: Acute (10) Obesity (BMI 30-39.9): Code(s): E66.9 - Obesity, unspecified Status: Acute Plan I have discussed the patient's case and plan of care with Dr. Gauthier. 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 She presented to the ER on 08/27/2022 via EMS with hypoxia and altered mental status. She was intubated in the ER. She was admitted to the ICU and has been treated for pneumonia, urinary tract infection, and acute kidney injury. She was eventually extubated on 09/05/2022 and reintubated yesterday due to hypercapnic respiratory failure and possible aspiration after having emesis. Yesterday morning, after being cleaned up by nursing staff she desaturated and had cardiopulmonary arrest. She had return of spontaneous circulation after 2 minutes. Her ETT tube was found to be clogged and she was reintubated. Nephrology has been following and she was started on hemodialysis through a left IJ temporary dialysis catheter on 08/30/2022. Over the weekend, they have had issues with her left IJ dialysis catheter not functioning. They attempted dialysis 2 days ago and were unable to complete dialysis due to positional alarms. She only had 1 liter removed. We are now asked to see the patient in consultation for tunneled dialysis catheter placement. She is seen in the ICU intubated and sedated. No family at the bedside. To note, in review of her EMR, she has a history of jugular vein thrombosis but details are unknown even after contacting her family. She is currently on Eliquis 2.5 mg Q12H with her most recent dose given this morning. Since admission, she had a venous doppler ultrasound of upper extremities that showed NO DVT with
--- NOTE | 2022-09-08 11:01 | PCNFU ---
Nutrition Follow-Up Complete: Inadequate Oral Intake as related to mechanical ventilation as evidence by NPO. Goal: Meet estimated nutritional needs - Not meeting goal due to NPO Pt current nutrition is NPO for placement of dialysis port today. Nutrition recommendation: Nepro @ 50 ml/h with Prosource TF protein modular once per day. 1980 kcals, total 109 g protein, 800 ml free water. Flushes 30 ml q 4 hours for total 980 ml free water. Last recorded weight is 100.1 kg. -16 lb weight loss/ 10 days. Bowel Motility: +1 BM 09/07/22 Labs Reviewed: Na 139, eGFR 5, BUN 156, Cre 7.7, PO4 12.6 Meds Noted: fentanyk, versed, rocephin, reglan Skin: WNL Additional Notes: Pt to start on dialysis, getting a port placed today. No propofol. Sedation with fentanyl, versed. Had brief cardiac arrest yesterday. When tube feeding is restarted recommend switching formula to Nepro because of labs. Will monitor daily in ICU rounds and reassess every Thursday and Thursday.
[2022-09-08 12:13] LABS: Glucose Point of Care 180 mg/dl (65-105)
--- NOTE | 2022-09-08 12:59 | WPDHPUPDATE1 ---
History and Physical Update Update Date/Time: 09/08/22 12:59 History and Physical has been reviewed, including an updated exam of the patient. There are NO changes in the patient's condition. Risks, benefits, and alternatives have been discussed and questions answered. Patient agrees to proceed with procedure.
--- NOTE | 2022-09-08 13:06 | WPDANESEPPF ---
Anes - Initial Pre Proc Eval Procedure: Operation Date: 09/08/22 13:30 Proposed Procedures p Insertion Tunneled Dialysis Catheter - Paulette Gauthier MD Date/Time: 09/08/22 13:06 Surgeon: John Jha MD Pre Op Diagnosis: Acute Resp Failure Patient Data Age: 62 Gender: F Height: 1.65 m Weight: 100.1 kg Last Vital Signs Temp 97.8 F 09/08/22 12:00 Pulse 104 H 09/08/22 12:00 Resp 20 09/08/22 12:00 BP 113/63 09/08/22 12:00 Pulse Ox 98 09/08/22 12:00 O2 Del Method Mechanical Ventilation 09/08/22 11:08 O2 Flow Rate 4 09/06/22 20:25 FiO2 50 09/08/22 11:08 Allergies Allergy/AdvReac Type Severity Reaction Status Date / Time No Known Drug Allergies Allergy Verified 09/07/21 09:22 Home Medications Medication Instructions Recorded Confirmed Type amitriptyline 10 mg tablet 10 mg PO HS 09/07/21 08/27/22 History apixaban 2.5 mg tablet (Eliquis) 2.5 mg PO BID 09/07/21 08/27/22 History escitalopram oxalate 20 mg tablet 20 mg PO DAILY 09/07/21 08/27/22 History furosemide 40 mg tablet 40 mg PO DAILY 09/07/21 08/27/22 History hydroxyzine HCl 25 mg tablet 25 mg PO TID PRN Anxiety 09/07/21 08/27/22 History montelukast 10 mg tablet 10 mg PO DAILY 09/07/21 08/27/22 History omeprazole 40 mg capsule,delayed 40 mg PO DAILY 09/07/21 08/27/22 History release ropinirole 4 mg tablet 4 mg PO HS 09/07/21 08/27/22 History spironolactone 25 mg tablet 25 mg PO DAILY 09/07/21 08/27/22 History trazodone 50 mg tablet 50 mg PO HS 09/07/21 08/27/22 History albuterol sulfate 90 mcg/actuation 2 puff inhalation QID PRN 09/16/21 08/27/22 Rx aerosol inhaler (Proventil HFA) shortness of breath #1 BA unit Laboratory Tests 09/07/22 09/07/22 09/07/22 12:58 13:24 13:24 WBC RBC Hgb Hct MCV MCH MCHC RDW Plt Count MPV Immature Gran % (Auto) Neut % (Auto) Lymph % (Auto) [place]verse % (Auto) Eos % (Auto) Baso % (Auto) Lymph # (Auto) [place] # (Auto) Eos # (Auto) Baso # (Auto) Abs Immat Gran (auto) Absolute Neuts (auto) Absolute Nucleated RBC Nucleated RBC % Platelet Estimate Hypochromasia Schistocytes Puncture Site Right radial ABG pH 7.306 L (7.350-7.450) ABG pCO2 52.2 mmHg H mmHg (35.0-45.0) ABG pO2 156.4 mmHg H mmHg (80.0-100.0) ABG PO2/FiO2 Ratio 1.95 % % ABG HCO3 25.5 mEq/l mEq/l (22.0-26.0) ABG O2 Saturation 98.8 % % (95.0-100.0) ABG O2 Content 19.4 %vol %vol (16.0-22.0) ABG Base Excess -1.6 mEq/l mEq/l (+/-2.0) A-a Gradient 359.2 mmHg mmHg Oxyhemoglobin 97.9 % THb % THb (90.0-100.0) Carboxyhemoglobin 0.2 % THb % THb (0-2.0) Methemoglobin 0.3 %THb %THb (0-1.5) Reduced Hemoglobin 1.6 %THb %THb (0-5.0) Total Hemoglobin 13.9 g/dL g/dL (12.0-18.0) O2 Delivery Device Ventilator O2 Liters/Min Not Reportable Minute Volume Not Reportable Vent Rate 20 /MIN /MIN Vent Mode Cmv FiO2 80 % % Tidal Volume 450 ml ml PEEP 5 cmH2O cmH2O Peak Inspir Pressure Not Reportable Pressure Support Not Reportable Sodium Potassium Chloride Carbon Dioxide Anion Gap BUN Creatinine Estim Creat Clear Calc Estimated GFR Glucose POC Capillary Glucose Lactic Acid 1.1 mmol/L mmol/L (0.7-2.0) Calcium Phosphorus Magnesium Total Bilirubin
--- NOTE | 2022-09-08 13:14 | WPDINTPN ---
Progress Note: A&P Assessment and Plan (1) Sepsis: Code(s): A41.9 - Sepsis, unspecified organism Status: Acute Assessment and Plan: Leukocytosis, hypercapnic respiratory failure -WBC improving -afebrile -09/07/2022 blood cultures, preliminary results are negative x2 -09/05/2022 Blood cultures: Preliminary results are negative x2 -09/05/2022 urine cultures are negative -09/22/2022 urine cultures negative so far -09/22/2022 sputum cultures negative so far Patient was Re-intubated on 09/07/2022 due to possible aspiration, hypercapnia respiratory failure S seen on ABG, possible pneumonia -started patient on vancomycin and Zosyn (09/07) -blood pressures have remained stable (2) Acute on chronic respiratory failure with hypoxia and hypercapnia: Code(s): J96.21 - Acute and chronic respiratory failure with hypoxia; J96.22 - Acute and chronic respiratory failure with hypercapnia Status: Acute Assessment and Plan: Multifactorial acute on chronic respiratory failure with hypoxia and hypercarbia secondary to COPD, obesity hypoventilation syndrome, CHF and community-acquired pneumonia. Patient uses 5-6 L of oxygen at home all times and CPAP at night Patient was intubated in the ER on 08/27/2022 Extubated on 09/05/2022. Post extubation patient had some stridor, dyspnea, tachycardia and hypertension. Patient was given Decadron, racemic epinephrine with improvement RE intubated 09/07/2022, due to hypercapnic respiratory failure and possible aspiration she had emesis, -09/07/2022: Patient became hypoxic, Unable to bag the patient, ETT was removed, had inch and a half plan of thick secretions. New ETT was inserted using a glide scope, intubation was uneventful -chest x-ray this morning:?Opacities in bilateral lower lung zones which could represent atelectasis and/or pneumonia.. Likely small left pleural effusion ABGs reviewed -continue vancomycin and Zosyn was started 09/07 -Influenza RSV and COVID negative on admission - Urine Legionella and pneumococcal antigen are negative on admission -Mycoplasma IgM was low on admission 08/27/22 CT chest 1. Tree-in-bud opacities as can be seen with atypical infection (including but not limited to: MAC, TB, fungal), ABPA, airways disease, and less likely aspiration. 2. Nodular opacity in right upper lobe should be followed after the appropriate therapy and cessation of symptoms to ensure resolution. 3. Mediastinal lymphadenopathy. 4. Trace bilateral pleural effusions. 5. Mild interstitial edema (3) Acute kidney injury: Code(s): N17.9 - Acute kidney failure, unspecified Status: Acute Assessment and Plan: Patient presented with normal creatinine but was given Lasix in ER and on presentation due to congestive heart failure Urine electrolytes suggest prerenal. Although echo shows dilated IVC with increased right atrial pressure, patient was given additional IV fluids but creatinine continuesdto increase Normal CK Unremarkable renal ultrasound -dialysis started on 08/30/2022 -patient was dialyzed on 08/30, 08/31, 09/02, 09/03, 09/04 -patient was diuresed on 09/05 with 1000 mL in fluid removal as the dialysis catheter was not functioning well -discussed with Nephrology, discussed with surgery, PermCath this afternoon and dialysis thereafter (4) Chronic obstructive pulmonary disease: Code(s): J44.9 - Chronic obstructive pulmonary disease, unspecified Status: Acute Assessment and Plan: Continue mechanical ventilation, antibiotics and bronchodilators -off steroids (5) Congestive heart failure: Code(s): I50.9 - Heart failure, unspecified Status: Acute Assessment and Plan: hemodialysis to remove fluid 08/28/2022 Echocardiogram ?1. Left ventricular chamber dimension is normal. ? 2. Left ventricular systolic function is normal, estimated at 60-65%. ? 3. The left ventricular diastolic function is grade I diastolic dysfunction. ?
[2022-09-08] MEDS: HEPARIN SODIUM 5,000 UNITS/ML VIAL 5000 UNITS IRRIGATION (13:39)
--- NOTE | 2022-09-08 13:53 | SUR.OPER ---
28CM DURAFLOW HEMODIALYSIS CATHETER SET EXP LOT [id number] LEFT IJ
[2022-09-08] MEDS: HEPARIN SODIUM, PORCINE 10,000 UNITS/10 ML VIAL 4500 UNITS XX (13:54)
--- NOTE | 2022-09-08 14:11 | P.OP_ITS ---
Procedure Note - Detailed Date of Procedure 09/08/22 Pre-op Diagnosis Acute renal failure Post-op Diagnosis Same Procedure Performed placement of 28 cm tunneled hemodialysis catheter in left internal jugular vein under fluroscopic guidance Surgeon Paulette Gauthier MD Anesthesia General and Local Indications 62 y/o F presenting c MSOF, including ARF, necessitating emergent dialysis Findings wire exchange LIJ Description of Procedure Patient was taken to the operating room and placed in the supine position. After adequate induction of general anesthesia, the patient was prepped and draped in normal sterile fashion. A time-out was then done to verify the patient's identity as well as the procedure being performed. I began by using fluro and confirming placement of previously placed temporary dialysis catheter in the left internal jugular vein. Once this was done, I placed a guidewire over the catheter. Again using fluro to confirm position, I removed the previously placed catheter. I then went ahead and measured the 28 cm tunneled dialysis catheter to our stick site in the left neck. I then localized the tract going from the left chest to the left neck. I then made a small incision in the left chest and tunneled the catheter to the left neck. I then serially dilated the left internal jugular vein under fluoroscopic guidance. Once adequately dilated, I placed the dilating sheath over the guidewire into the left internal jugular vein under fluoroscopic visualization. Once this was noted to be in good position, I removed both the guidewire and dilator, now just leaving the sheath in the vein. I then went ahead and fed the previously tunneled catheter into the sheath. Once the catheter was fed and positioned correctly, I went ahead and peeled the sheath away. Final fluoroscopic view showed the catheter in good position from its insertion point in the left chest to its termination in the atrial caval junction. It was noted there was no kinking of the catheter. I was able to easily draw and flush from both ports of the catheter. I placed 2.2 and 2.3 cc of final heparin flush into each port as marked. The catheter was then sutured into place and the incision in the n mikey was closed with 4 O Monocryl subcuticular suture. The patient tolerated the procedure well and will be transferred to the ICU in critical condition. Sterile dressing was placed on the catheter. Portable chest x-ray will be done in the ICU. Implants 28 cm tunneled hemodialysis catheter Estimated Blood Loss 10 Drains No Packing No Pathology None sent Complications No immediate complications Condition Stable Disposition ICU [facility] Billing Surgery - Charge Forward: Surgery Billing
--- NOTE | 2022-09-08 14:34 | SUR.OPER ---
late entry transfered to ICU with anesthesia HOB/ventilation per bag/full monitor visible and on. Nurse and PCT assisting transfer. No complications.Report given to PODODERMATOLOGIST per Henrry Mcconnell RN. Informed patient needs post op chest x-ray as per Dr Gauthier.
--- NOTE | 2022-09-08 17:19 | PM.IMPN ---
Progress Note: A&P Assessment and Plan (1) Acute on chronic respiratory failure with hypoxia and hypercapnia: Code(s): J96.21 - Acute and chronic respiratory failure with hypoxia; J96.22 - Acute and chronic respiratory failure with hypercapnia Status: Acute Assessment and Plan: Multifactorial acute on chronic respiratory failure with hypoxia and hypercarbia secondary to COPD, obesity hypoventilation syndrome, CHF and community-acquired pneumonia Patient was intubated in the ER on 08/27/2022 extubated and placed on bipap 09/05/2022 Chest xary: Stable airspace opacities in the lower lung zones, consistent with atelectasis versus pneumonia. HD started to remove fluid. steroid discontinued continue on bronchodilator -08/27/22: Blood culture are negative till now -08/27/22: sputum cultures growing Haemophilus influenzae -vancomycin discontinued on 09/01/2022 -completed 7 days of ceftriaxone, azithromycin (discontinued on 09/03) -09/05: leukocytosis increased with low-grade fevers, lower extremity venous Dopplers negative, repeat blood cultures, sputum cultures, urine cultures -Influenza RSV and COVID negative - Urine Legionella and pneumococcal antigen are negative -Mycoplasma IgM was low -patient was dialyzed on 08/30, 08/31, 09/02, 09/04, 09/06 -patient diuresed on 09/03/2022 08/27/22 CT chest 1. Tree-in-bud opacities as can be seen with atypical infection (including but not limited to: MAC, TB, fungal), ABPA, airways disease, and less likely aspiration. 2. Nodular opacity in right upper lobe should be followed after the appropriate therapy and cessation of symptoms to ensure resolution. 3. Mediastinal lymphadenopathy. 4. Trace bilateral pleural effusions. 5. Mild interstitial edema Switched to nasal cannula 5-6 L. Which her home requirement BiPAP at night Continue to monitor in ICU 09/07/2022 reintubated due to hypercapnic respiratory failure and possible aspiration with emesis. Vanc and Zosyn started continue per beam department supervisor (2) Chronic obstructive pulmonary disease: Code(s): J44.9 - Chronic obstructive pulmonary disease, unspecified Status: Acute Assessment and Plan: Continue mechanical ventilation, antibiotics and bronchodilators -off steroids (3) Congestive heart failure: Code(s): I50.9 - Heart failure, unspecified Status: Acute Assessment and Plan: hemodialysis to remove fluid 08/28/2022 Echocardiogram ?1. Left ventricular chamber dimension is normal. ? 2. Left ventricular systolic function is normal, estimated at 60-65%. ? 3. The left ventricular diastolic function is grade I diastolic dysfunction. ? 4. Right ventricular chamber dimension is moderately enlarged. ? 5. Right ventricular systolic function is normal. ? 6. There is moderate tricuspid valve regurgitation, which may be underestimated due to the eccentricity of the jet. ? 7. Dilated inferior vena cava with no collapse upon inspiration consistent with elevated right atrial pressure, 15 mmHg. ? 8. Pulmonary hypertension with an estimated PASP of 59mmHg. (4) Acute kidney injury: Code(s): N17.9 - Acute kidney failure, unspecified Status: Acute Assessment and Plan: Patient presented with normal creatinine but was given Lasix in ER and on presentation due to congestive heart failure Urine electrolytes suggest prerenal. Although echo shows dilated IVC with increased right atrial pressure, patient was given additional IV fluids but creatinine continuesdto increase Normal CK Unremarkable renal ultrasound - 08/30:: After discussion with Nephrology, left internal jugular hemodialysis catheter was placed and patient was started on hemodialysis with removal of 3000 mL of fluid - 08/31: 3500 fluid was removed - 09/02: 3000 mL fluid removal -09/04: 3000 mL fluid removal -09/06: 1 L fluid removal permcath placemet 09/08 (5) Urinary tract infection: Code(s): N39.0 - Urinary tract infection, site not specified
[2022-09-08] MEDS: TOLNAFTATE 1% POWDER 45 GM BTL 1 APPLIC TOPICAL ×2 (17:54→20:30)
[2022-09-08 18:31] LABS: Glucose Point of Care 187 mg/dl (65-105)
[2022-09-09] VITALS (163 sets, daily range): BP systolic 50–172; BP diastolic 34–127; PULSE 84–133; RESP 15–44; TEMP 36–37.5; O2SAT 88–98
[2022-09-09 00:06] LABS: Glucose Point of Care 204 mg/dl (65-105)
[2022-09-09] MEDS: INSULIN ASPART (*BKC) 100 UNITS/ML SUB-Q ×3 (00:13→23:51)
[2022-09-09] MEDS: LEVALBUTEROL NEB 1.25 MG/3 ML 0.63 MG INHALATION ×4 (02:40→20:38)
[2022-09-09] MEDS: IPRATROPIUM BR 0.02% INH SOLN 0.5 MG/2.5 ML VIAL INHALATION ×4 (02:40→20:38)
[2022-09-09] MEDS: MIDAZOLAM 100MG/NS 100ML(*CRX) 100 MG/100 ML BAG IV CONT ×2 (02:47→18:17)
[2022-09-09 04:20] LABS: Basophils Absolute Auto 0.1 K/mm3 (0.0-0.1); Basophils Percent Auto 0.4 % (0.2-1.2); Eosinophils Absolute Auto 0.1 K/mm3 (0-0.3); Eosinophils Percent Auto 0.4 % (0-4.4); Immature Granulocyte Absolute 0.37 K/mm3 (0.00-0.031); Immature Granulocyte Percent A 1.8 % (0-0.5); Lymphocytes Absolute Auto 2.52 K/mm3 (0.9-3.2); Lymphocytes Percent Auto 12.5 % (18.3-44.2); Mean Corpuscular HGB Conc 32.4 g/dl (32-36); Mean Corpuscular Hemoglobin 28.3 pg (26-34); Mean Corpuscular Volume 87.3 fl (80-100); Mean Platelet Volume 10.2 fl (7.4-10.4); Monocytes Absolute Auto 1.9 K/mm3 (0.1-0.6); Monocytes Percent Auto 9.4 % (2.6-8.5); Neutrophils Absolute Auto 15.1 K/mm3 (1.3-6.7); Neutrophils Percent Auto 75.5 % (45.5-73.1); Platelet Count Result 331 k/mm3 (150-375); Red Blood Count 4.24 M/mm3 (4.2-5.4); Red Cell Distribution Width 14.2 % (11.5-14.5); White Blood Count 20.1 K/mm3 (4.5-10.0)
[2022-09-09 04:58] LABS: Alanine Aminotransferase 24 U/L (6-35); Albumin Level 4.1 g/dL (3.5-5.1); Alkaline Phosphatase 72 U/L (38-126); Anion Gap 22 mmol/L (8-16); Aspartate Amino Transferase 15 U/L (14-36); Bilirubin,Total 0.6 mg/dL (0.2-1.3); Calcium 8.8 mg/dL (8.4-10.2); Carbon Dioxide 23 mmol/L (22-30); Chloride 98 mmol/L (98-107); Estimated CRCL calculation 8 ml/min; Estimated Glomerular Filt Rate 5; Glucose 181 mg/dL (65-110); Potassium 4.3 mmol/L (3.4-5.0); Sodium 143 mmol/L (137-145)
[2022-09-09] MEDS: CENTRAL LINE FLUSH 10 ML IV PUSH ×4 (05:06→21:45)
[2022-09-09 05:33] LABS: PCO2 ABG 41.8 mmHg (35.0-45.0); pH ABG 7.395 (7.350-7.450)
[2022-09-09 05:34] LABS: Base Excess ABG 0.1 mEq/l (+/-2.0); Oxygen Saturation ABG 95.7 % (95.0-100.0); PO2 ABG 79.7 mmHg (80.0-100.0); Total Hemoglobin 13.6 g/dL (12.0-18.0)
[2022-09-09 05:35] LABS: Oxygen Content ABG 17.9 %vol (16.0-22.0); Oxyhemoglobin 93.3 % THb (90.0-100.0)
[2022-09-09 05:36] LABS: Carboxyhemoglobin 0.2 % THb (0-2.0); Device VENTILATOR; Fractional Inspired Oxygen 40 %; Methemoglobin ABG 0.3 %THb (0-1.5); Modified Allen's Test Pass; PO2 FiO2 Ratio Arterial Blood 1.99 %; Reduced Hemoglobin 6.2 %THb (0-5.0); Site Drawn RIGHT RADIAL
[2022-09-09 05:37] LABS: Arterial Blood Gas PEEP 5 cmH2O; Arterial Blood Gas Tidal Volume 450 ml; Arterial Blood Gas Vent Mode CMV; Arterial Blood Gas Ventilator rate 20 /MIN
[2022-09-09 05:43] LABS: Blood Urea Nitrogen 187 mg/dL (7-17)
--- NOTE | 2022-09-09 09:47 | WPDINTPN ---
Progress Note: A&P Assessment and Plan (1) Sepsis: Code(s): A41.9 - Sepsis, unspecified organism Status: Acute Assessment and Plan: Leukocytosis, hypercapnic respiratory failure -WBC improving -afebrile -09/07/2022 blood cultures, preliminary results are negative x2 -09/05/2022 Blood cultures: Preliminary results are negative x2 -09/05/2022 urine cultures are negative -09/22/2022 urine cultures negative so far -09/22/2022 sputum cultures negative so far Patient was Re-intubated on 09/07/2022 due to possible aspiration, hypercapnia respiratory failure S seen on ABG, possible pneumonia -started patient on vancomycin and Zosyn (09/07) -blood pressures have remained stable (2) Acute on chronic respiratory failure with hypoxia and hypercapnia: Code(s): J96.21 - Acute and chronic respiratory failure with hypoxia; J96.22 - Acute and chronic respiratory failure with hypercapnia Status: Acute Assessment and Plan: Multifactorial acute on chronic respiratory failure with hypoxia and hypercarbia secondary to COPD, obesity hypoventilation syndrome, CHF and community-acquired pneumonia. Patient uses 5-6 L of oxygen at home all times and CPAP at night Patient was intubated in the ER on 08/27/2022 Extubated on 09/05/2022. Post extubation patient had some stridor, dyspnea, tachycardia and hypertension. Patient was given Decadron, racemic epinephrine with improvement RE intubated 09/07/2022, due to hypercapnic respiratory failure and possible aspiration she had emesis, -09/07/2022: Patient became hypoxic, Unable to bag the patient, ETT was removed, had inch and a half plan of thick secretions. New ETT was inserted using a glide scope, intubation was uneventful -chest x-ray reviewed - ABGs reviewed. I will decrease minute ventilation to increase her pCO2 up slowly as patient has chronic hypercarbia and will develop acidosis once extubated -continue vancomycin and Zosyn was started 09/07 -Influenza RSV and COVID negative on admission - Urine Legionella and pneumococcal antigen are negative on admission -Mycoplasma IgM was low on admission 08/27/22 CT chest 1. Tree-in-bud opacities as can be seen with atypical infection (including but not limited to: MAC, TB, fungal), ABPA, airways disease, and less likely aspiration. 2. Nodular opacity in right upper lobe should be followed after the appropriate therapy and cessation of symptoms to ensure resolution. 3. Mediastinal lymphadenopathy. 4. Trace bilateral pleural effusions. 5. Mild interstitial edema (3) Acute kidney injury: Code(s): N17.9 - Acute kidney failure, unspecified Status: Acute Assessment and Plan: Patient presented with normal creatinine but was given Lasix in ER and on presentation due to congestive heart failure Urine electrolytes suggest prerenal. Although echo shows dilated IVC with increased right atrial pressure, patient was given additional IV fluids but creatinine continuesdto increase Normal CK Unremarkable renal ultrasound -dialysis started on 08/30/2022 -patient was dialyzed on 08/30, 08/31, 09/02, 09/03, 09/04 -patient was diuresed on 09/05 with 1000 mL in fluid removal as the dialysis catheter was not functioning well -09/08 tunneled dialysis catheter was placed. - 09/09 patient is scheduled for dialysis today but there is some issue with the tunneled dialysis catheter. General surgery will re-evaluate the catheter today (4) Chronic obstructive pulmonary disease: Code(s): J44.9 - Chronic obstructive pulmonary disease, unspecified Status: Acute Assessment and Plan: Continue mechanical ventilation, antibiotics and bronchodilators -off steroids (5) Congestive heart failure: Code(s): I50.9 - Heart failure, unspecified Status: Acute Assessment and Plan: hemodialysis to remove fluid 08/28/2022 Echocardiogram ?1. Left ventricular chamber dimension is normal. ? 2. Left ventricular systolic function is
[2022-09-09] MEDS: ESCITALOPRAM OXALATE 10 MG TABLET 20 MG PO (09:54)
[2022-09-09] MEDS: MINERAL OIL/WHITE PETROLATUM OINTMENT 1 APPLIC EACH EYE ×3 (09:54→21:15)
[2022-09-09] MEDS: PANTOPRAZOLE SODIUM IV 40 MG VIAL IV PUSH (09:54)
[2022-09-09] MEDS: BUMETANIDE INJ 2.5 MG/10 ML VIAL 2 MG IV PUSH ×2 (09:54→17:00)
[2022-09-09] MEDS: APIXABAN 2.5 MG TABLET FEED TUBE ×2 (09:54→21:05)
[2022-09-09] MEDS: TOLNAFTATE 1% POWDER 45 GM BTL 1 APPLIC TOPICAL ×2 (09:55→21:05)
--- NOTE | 2022-09-09 10:04 | WPDANESPN ---
Anes - Prog Note Post-Op Date/Time: 09/09/22 10:04 Respiratory status: other (pt remains on ventilatory suppport) Airway patency: other (pt intubated) Mental status: baseline and other (sedated) Vital Signs: Last Vital Signs Temp 97.3 F L 09/09/22 08:26 Pulse 94 09/09/22 08:26 Resp 23 H 09/09/22 08:26 BP 101/61 09/09/22 08:26 Pulse Ox 95 09/09/22 08:26 O2 Del Method Mechanical Ventilation 09/09/22 04:45 O2 Flow Rate 4 09/06/22 20:25 FiO2 40 09/09/22 04:45 Pain Score (VAS): 0 I/O: Intake & Output 09/08/22 09/09/22 09/09/22 23:59 07:59 15:59 Intake Total 100 540 Output Total 100 200 Balance 0 340 Laboratory Tests 09/09/22 04:00 09/09/22 04:00 09/08/22 09/08/22 09/09/22 11:38 18:28 00:03 WBC RBC Hgb Hct MCV MCH MCHC RDW Plt Count MPV Immature Gran % (Auto) Neut % (Auto) Lymph % (Auto) Bowman % (Auto) Eos % (Auto) Baso % (Auto) Lymph # (Auto) Bowman # (Auto) Eos # (Auto) Baso # (Auto) Abs Immat Gran (auto) Absolute Neuts (auto) Absolute Nucleated RBC Nucleated RBC % Puncture Site ABG pH ABG pCO2 ABG pO2 ABG PO2/FiO2 Ratio ABG HCO3 ABG O2 Saturation ABG O2 Content ABG Base Excess A-a Gradient Oxyhemoglobin Carboxyhemoglobin Methemoglobin Reduced Hemoglobin Total Hemoglobin O2 Delivery Device O2 Liters/Min Minute Volume Vent Rate Vent Mode FiO2 Tidal Volume PEEP Peak Inspir Pressure Pressure Support Sodium Potassium Chloride Carbon Dioxide Anion Gap BUN Creatinine Estim Creat Clear Calc Estimated GFR Glucose POC Capillary Glucose 180 H 187 H 204 H Calcium Total Bilirubin AST ALT Alkaline Phosphatase Total Protein Albumin 09/09/22 09/09/22 09/09/22 04:00 04:00 04:30 WBC 20.1 H RBC 4.24 Hgb 12.0 Hct 37.0 MCV 87.3 MCH 28.3 MCHC 32.4 RDW 14.2 Plt Count 331 MPV 10.2 Immature Gran % (Auto) 1.8 H Neut % (Auto) 75.5 H Lymph % (Auto) 12.5 L Bowman % (Auto) 9.4 H Eos % (Auto) 0.4 Baso % (Auto) 0.4 Lymph # (Auto) 2.52 Bowman # (Auto) 1.9 H Eos # (Auto) 0.1 Baso # (Auto) 0.1 Abs Immat Gran (auto) 0.37 H Absolute Neuts (auto) 15.1 H Absolute Nucleated RBC 0.0 Nucleated RBC % 0.0 Puncture Site Right radial ABG pH 7.395 ABG pCO2 41.8 ABG pO2 79.7 L ABG PO2/FiO2 Ratio 1.99 ABG HCO3 25.0 ABG O2 Saturation 95.7 ABG O2 Content 17.9 ABG Base Excess 0.1 A-a Gradient 81.0 Oxyhemoglobin 93.3 Carboxyhemoglobin 0.2 Methemoglobin 0.3 Reduced Hemoglobin 6.2 H Total Hemoglobin 13.6 O2 Delivery Device Ventilator O2 Liters/Min Not Reportable Minute Volume Not Reportable Vent Rate 20 Vent Mode Cmv FiO2 40 Tidal Volume 450 PEEP 5 Peak Inspir Pressure Not Reportable Pressure Support Not Reportable Sodium 143 Potassium 4.3 Chloride 98 Carbon Dioxide 23 Anion Gap 22 H BUN 187 H D Creatinine 8.00 H Estim Creat Clear Calc 8 Estimated GFR 5 L Glucose 181 H POC Capillary Glucose Calcium 8.8 Total Bilirubin 0.6 AST 15 ALT 24 Alkaline Phosphatase 72 Total Protein 8.0 Albumin 4.1 Microbiology 09/05/22 08:17 Sputum Sputum Culture - Final Post-procedural complaints: none Patient Feedback: Patient satisfied with anesthetic care.
[2022-09-09] MEDS: DORNASE ALFA INH SOLN 1 MG/ML 2.5 ML AMP 2.5 MG INHALATION ×2 (11:07→20:38)
--- NOTE | 2022-09-09 11:48 | PCNFU ---
Nutrition Follow-Up Complete: Inadequate Oral Intake as related to mechanical ventilation as evidence by NPO. Goal; Meet estimated nutritional needs Patient is progressing towards goal. We will continue current goal. Pt current nutrition is Nepro at 50 ml/hr. Last recorded weight is 100.8 kg. Bowel Motility:+BM reported 09/07 Labs Reviewed:Glu 181, Cr 8.0,BUN 187, GFR 5 Meds Noted:Fentanyl, Versed, Rocephin. Skin: WNL Additional Notes: Patient reintubated on 09/07. Tube feeding formula change to Nepro at goal rate of 50 ml/hr which is providing 1980 kcals/89 gms protein/800 ml water. Tolerating tube feeding per nursing. Protein Modular of Prosource once daily adding an additional 80 kcals and 20 gms protein. Flush 30 ml q 4 hours. Dialysis today. Will monitor daily in ICU rounds and reassess every Thursday and Thursday.
--- NOTE | 2022-09-09 11:52 | P.PNNP_ITS ---
Progress Note: A&P Assessment and Plan (1) Acute kidney injury: Code(s): N17.9 - Acute kidney failure, unspecified Status: Acute Assessment and Plan: * suspect due to ATN * evaluation to date * urine electrolytes prerenal * normal CPK * renal ultrasound unremarkable * no significant response to trial of IVFs * given declining urine output and risng BUN + creatinine, initiated on HD (on 08/30/22) * poor dialysis treatment on Thursday (09/06/22) * s/p tunneled catheter yesterday -- unfortunately, catheter not working * possibly repositioning versus need tempoorary catheter?? * will reattempt HD later today depending on intervention * follow trend of repeat labs and urine to assess for renal recovery (2) Acute on chronic respiratory failure with hypoxia and hypercapnia: Code(s): J96.21 - Acute and chronic respiratory failure with hypoxia; J96.22 - Acute and chronic respiratory failure with hypercapnia Status: Acute Assessment and Plan: * multifactorial etiology: * COPD * DOMINIC * CHF * pneumonia (aspiration?) * on steroids and bronchodilators * follow culture data * broad spectrum antibiotic therapy * fluid removal with dialysis as tolerated (3) Congestive heart failure: Code(s): I50.9 - Heart failure, unspecified Status: Acute Assessment and Plan: * as noted by testing on admission * s/p IV diuresis with limited response * Echo shows diastolic heart failure and pulmonary HTN * follow volume status - fluid removal with dialysis/HD (4) Pneumonia: Code(s): J18.9 - Pneumonia, unspecified organism Status: Acute Assessment and Plan: * due to concerns for aspiration - on antibiotics * follow repeat culture data (5) COPD (chronic obstructive pulmonary disease): Code(s): J44.9 - Chronic obstructive pulmonary disease, unspecified Status: Chronic Assessment and Plan: * see #2 * continue current therapy Will continue to follow. Subjective Date/time seen: 09/09/22 11:52 S/P tunneled HD catheter placement yesterday (and removal of IJ temporary catheter) and tolerated procedure reasonably well; unfortunately, despite attempts by HD nurse with regard to repositioning, power flusing, reversing lines...etc, new HD catheter would not function properly -- Surgery notified of this issue; remains intubated and on mechanical ventilation. Exam Narrative: General: WD/WN female intubated and on mechanical ventilaltion. Heart: normal S1 and S2; no rub Lungs: coarse breath sounds bilaterally Abdomen: soft, nontender, nondistended, positive bowel sounds Extremities: trace edema present Skin: warm and intact Objective Data Vital Signs Vital Signs: Vital Signs Temp Pulse Resp BP Pulse Ox O2 Del Method FiO2 09/09/22 11:26 93 92 Mechanical Ventilation 40 09/09/22 09:00 98 20 09/09/22 09:00 98 95 Mechanical Ventilation 40 09/09/22 08:57 40 09/09/22 10:34 88 20 88/50 L 96 09/09/22 10:31 88 17 94/57 L 94 09/09/22 10:30 90 18 94 09/09/22 10:16 95 23 H 90/55 L 94 09/09/22 10:15 93 23 H 93 09/09/22 10:01 95 23 H 95/55 L 94 09/09/22 10:00 93 24 H 94 09/09/22 09:46 90 20 106/47 L 94 09/09/22 09:45 96 23 H
--- NOTE | 2022-09-09 11:52 | PM.PNNEP ---
Progress Note: A&P Assessment and Plan (1) Acute kidney injury: Code(s): N17.9 - Acute kidney failure, unspecified Status: Acute Assessment and Plan: suspect due to ATN evaluation to date urine electrolytes prerenal normal CPK renal ultrasound unremarkable no significant response to trial of IVFs given declining urine output and risng BUN + creatinine, initiated on HD (on 08/30/22) poor dialysis treatment on Thursday (09/06/22) s/p tunneled catheter yesterday -- unfortunately, catheter not working possibly repositioning versus need tempoorary catheter?? will reattempt HD later today depending on intervention follow trend of repeat labs and urine to assess for renal recovery (2) Acute on chronic respiratory failure with hypoxia and hypercapnia: Code(s): J96.21 - Acute and chronic respiratory failure with hypoxia; J96.22 - Acute and chronic respiratory failure with hypercapnia Status: Acute Assessment and Plan: multifactorial etiology: COPD DOMINIC CHF pneumonia (aspiration?) on steroids and bronchodilators follow culture data broad spectrum antibiotic therapy fluid removal with dialysis as tolerated (3) Congestive heart failure: Code(s): I50.9 - Heart failure, unspecified Status: Acute Assessment and Plan: as noted by testing on admission s/p IV diuresis with limited response Echo shows diastolic heart failure and pulmonary HTN follow volume status - fluid removal with dialysis/HD (4) Pneumonia: Code(s): J18.9 - Pneumonia, unspecified organism Status: Acute Assessment and Plan: due to concerns for aspiration - on antibiotics follow repeat culture data (5) COPD (chronic obstructive pulmonary disease): Code(s): J44.9 - Chronic obstructive pulmonary disease, unspecified Status: Chronic Assessment and Plan: see #2 continue current therapy Will continue to follow. Subjective Date/time seen: 09/09/22 11:52 S/P tunneled HD catheter placement yesterday (and removal of IJ temporary catheter) and tolerated procedure reasonably well; unfortunately, despite attempts by HD nurse with regard to repositioning, power flusing, reversing lines...etc, new HD catheter would not function properly -- Surgery notified of this issue; remains intubated and on mechanical ventilation. Exam Narrative: General: WD/WN female intubated and on mechanical ventilaltion. Heart: normal S1 and S2; no rub Lungs: coarse breath sounds bilaterally Abdomen: soft, nontender, nondistended, positive bowel sounds Extremities: trace edema present Skin: warm and intact Objective Data Vital Signs Vital Signs: Vital Signs Temp Pulse Resp BP Pulse Ox O2 Del Method FiO2 09/09/22 11:26 93 92 Mechanical Ventilation 40 09/09/22 09:00 98 20 09/09/22 09:00 98 95 Mechanical Ventilation 40 09/09/22 08:57 40 09/09/22 10:34 88 20 88/50 L 96 09/09/22 10:31 88 17 94/57 L 94 09/09/22 10:30 90 18 94 09/09/22 10:16 95 23 H 90/55 L 94 09/09/22 10:15 93 23 H 93 09/09/22 10:01 95 23 H 95/55 L 94 09/09/22 10:00 93 24 H 94 09/09/22 09:46 90 20 106/47 L 94 09/09/22 09:45 96 23 H 94 09/09/22 09:31 94 22 H 99/61 L 93 09/09/22 09:30 91 25 H 95 09/09/22 09:16 94 24 H 99/59 L 95 09/09/22 09:15 95 22 H 95 09/09/22 09:03 91 23 H 96/57 L 95 09/09/22 09:01 91 24 H 94/59 L 95 09/09/22 09:00 91 25 H 94 09/09/22 08:56 89 24 H 94/53 L 94 09/09/22 08:45 90 23 H 96 09/09/22 08:44 93 25 H 95/55 L 95 09/09/22 08:30 95 23 H 95 09/09/22 08:28 96 22 H 101/61 95 09/09/22 08:15 93 22 H 92 09/09/22 08:01 91 21 H 85/64 L 96 09/09/22 08:00 92 21 H 95 09/09/22 07:45 94 21 H 96 09/09/22 07:30 93 23 H 92 01
[2022-09-09] MEDS: MIDAZOLAM HCL (*CRX) 2 MG/2 ML VIAL 4 MG IV PUSH (12:32)
--- NOTE | 2022-09-09 12:54 | P.OP_ITS ---
Procedure Note - Detailed Date of Procedure 09/09/22 Pre-op Diagnosis acute renal failure, nonfunctional tunneled dialysis catheter Post-op Diagnosis Same Procedure Performed placement of 12 Setswana right the subclavian vein temporary hemodialysis catheter measuring 20 cm Surgeon Paulette Gauthier MD Anesthesia Local Indications 62-year-old female with multiple medical issues including acute renal necessitating emergent dialysis. Patient had previously placed left internal jugular tunneled hemodialysis catheter, however the catheter is very positional and unable to be used for dialysis this point. Findings right subclavian vein 1st stick Description of Procedure The patient was placed in the supine position. The bed was then placed in Trendelenburg with the patient facing to her left to expose the right neck/chest. I then prepped and draped the right chest in normal sterile fashion. A time-out was then done to verify the patient's identity as well as the procedure being performed. I then used the ultrasound to view the right internal jugular vein. The vein was noted to be very small and previous attempt at cannulation by the ICU doctor was unsuccessful. Given this, decision was made to use the right subclavian vein for access. I then used the 18 gauge needle to gain access into the right subclavian vein. Once this was noted in good position, I removed the needle just leaving the guidewire in the vein. I then enlarged the incision around the guidewire in the right chest. I then dilated the vein and using the dilators provided in the kit under sterile Seldinger technique. Once the vein was adequately dilated, I was able to easily slide the catheter over the guidewire into the right internal jugular vein. I placed a 20 cm 12 Setswana Trialysis catheter into the right subclavian vein. I then removed the guidewire, now just leaving the catheter in the vein. I was then able to easily draw and flush from all 3 port sites . I then sutured the catheter in place in the right chest. Sterile dressing was then placed. I did not place final heparin flush into the catheter as the patient is going to get emergent dialysis today. The patient tolerated the procedure well. Estimated Blood Loss 10 Drains No Packing No Pathology None sent Complications No immediate complications Condition Critical Disposition ICU [facility] Billing Surgery - Charge Forward: Surgery Billing
[2022-09-09 13:19] LABS: Glucose Point of Care 208 mg/dl (65-105)
[2022-09-09] MEDS: FENTANYL 2,500MCG/NS250ML(*CRX 2,500 MCG/250 ML BAG IV CONT (18:16)
[2022-09-09] MEDS: NOREPINEPHRINE 8 MG/D5W 250 ML 8 MG/250 ML BAG 9.38 MG IV CONT (18:18)
[2022-09-09] MEDS: MIDAZOLAM HCL (*CRX) 2 MG/2 ML VIAL IV PUSH (21:05)
[2022-09-09 23:51] LABS: Glucose Point of Care 245 mg/dl (65-105)
[2022-09-10] VITALS (76 sets, daily range): BP systolic 57–185; BP diastolic 26–89; PULSE 85–136; RESP 20–42; TEMP 36–39.3; O2SAT 95–100
--- NOTE | 2022-09-10 | ECHO_ITS ---
Patient Info Name: Cony Shin Age: 62 years : 1960 Gender: Female Ht: 65 in Wt: 218 lbs BSA: 2.17 m2 HR: 118 bpm BP: 84 / 52 mmHg Heart Rhythm: Sinus Rhythm Technical Quality: Fair Exam Date: 09/10/2022 12:46 PM Exam Location: [facility] Patient Status: Inpatient Admit Date: 08/27/2022 Staff Ordering Physician: Brian Welch MD [employer] Material Operator: Ching Wilson RDCS Attending Provider: Khai Jha MD Exam Type: CA echo limited w contrast Study Info Indications - Shock, RV, LV FUNCTION Limited two-dimensional transthoracic echocardiogram is performed with contrast. Contrast/Agitated Saline Contrast/Ag. Saline: Definity Amount: 3.00 ml Administered By: Ching Wilson RDCS Existing IV Access: Yes IV Access Condition: patent with no signs of infiltration Summary 1. Technically difficult study with limited views. Regional wall motion assessment limited due to poor endomyocardial border definition despite definity contrast enhancement. 2. Left ventricular chamber dimension is normal. 3. Left ventricular systolic function is normal, estimated at 65-70%. 4. There is mildly increased left ventricular wall thickness. 5. Right ventricular chamber dimension is normal. 6. Right ventricular systolic function is moderately reduced. TAPSE 1.3. 7. There is trace tricuspid valve regurgitation. 8. Mild pulmonary hypertension, estimated pulmonary arterial systolic pressure is 37 mmHg. 9. Normal inferior vena cava with <50% collapse upon inspiration consistent with elevated right atrial pressure, 10 mmHg. Left Ventricle Technically difficult study with limited views. Regional wall motion assessment limited due to poor endomyocardial border definition despite definity contrast enhancement. Left ventricular chamber dimension is normal. Left ventricular systolic function is normal, estimated at 65-70%. There is mildly increased left ventricular wall thickness. Right Ventricle Right ventricular chamber dimension is normal. Right ventricular systolic function is moderately reduced. TAPSE 1.3. Aortic Valve The aortic valve is not well visualized. Pulmonic Valve The pulmonic valve is not well visualized. Mitral Valve The mitral valve has normal leaflets. Tricuspid Valve The tricuspid valve leaflets are normal. There is trace tricuspid valve regurgitation. Mild pulmonary hypertension, estimated pulmonary arterial systolic pressure is 37 mmHg. Pericardium/Pleural The pericardium appears normal. There is trivial pericardial effusion. Left pleural effusion. Inferior Vena Cava Normal inferior vena cava with <50% collapse upon inspiration consistent with elevated right atrial pressure, 10 mmHg. Tricuspid Valve Name Value Normal TV Regurgitation Doppler TR Peak Velocity 260 cm/s TR Peak Gradient 27 mmHg Estimated PAP/RSVP RA Pressure 10 mmHg <=5 PA Systolic Pressure 37 mmHg <36 RV Systolic Pressure 37 mmHg <36 Ventricles
[2022-09-10] MEDS: NOREPINEPHRINE 8 MG/D5W 250 ML 8 MG/250 ML BAG 46.88 MG IV CONT (01:07)
[2022-09-10 01:52] LABS: Vancomycin Random 17.4 ug/mL (10-20)
[2022-09-10] MEDS: IPRATROPIUM BR 0.02% INH SOLN 0.5 MG/2.5 ML VIAL INHALATION ×4 (02:01→20:14)
[2022-09-10] MEDS: LEVALBUTEROL NEB 1.25 MG/3 ML 0.63 MG INHALATION ×4 (02:01→20:13)
[2022-09-10] MEDS: CENTRAL LINE FLUSH 10 ML IV PUSH ×4 (05:27→20:59)
[2022-09-10] MEDS: SODIUM CHLORIDE 0.9% IV 1,000 ML 999 ML IV CONT ×2 (05:37→11:14)
[2022-09-10] MEDS: INSULIN ASPART (*BKC) 100 UNITS/ML SUB-Q ×2 (05:41→18:16)
[2022-09-10 05:42] LABS: Glucose Point of Care 259 mg/dl (65-105)
[2022-09-10 05:53] LABS: Alveolar/Arterial O2 Gradient 224.7 mmHg; Base Excess ABG -4.6 mEq/l (+/-2.0); Carboxyhemoglobin 0.7 % THb (0-2.0); Device VENTILATOR; Fractional Inspired Oxygen 50 %; HCO3 ABG 20.6 mEq/l (22.0-26.0); Methemoglobin ABG 0.5 %THb (0-1.5); Modified Allen's Test Pass; Oxygen Content ABG 22.3 %vol (16.0-22.0); Oxygen Saturation ABG 96.3 % (95.0-100.0); Oxyhemoglobin 94.8 % THb (90.0-100.0); PCO2 ABG 38.8 mmHg (35.0-45.0); PO2 ABG 88.2 mmHg (80.0-100.0); PO2 FiO2 Ratio Arterial Blood 1.76 %; Site Drawn RIGHT RADIAL; Total Hemoglobin 16.7 g/dL (12.0-18.0); pH ABG 7.343 (7.350-7.450)
[2022-09-10 05:54] LABS: Arterial Blood Gas PEEP 5 cmH2O; Arterial Blood Gas Tidal Volume 400 ml; Arterial Blood Gas Vent Mode CMV; Arterial Blood Gas Ventilator rate 18 /MIN
[2022-09-10 06:06] LABS: Basophils Absolute Auto 0.2 K/mm3 (0.0-0.1); Basophils Percent Auto 0.4 % (0.2-1.2); Hematocrit 40.4 % (37.0-47.0); Hemoglobin 12.8 g/dL (12.0-15.0); Immature Granulocyte Absolute 1.43 K/mm3 (0.00-0.031); Immature Granulocyte Percent A 3.2 % (0-0.5); Lymphocytes Percent Auto 3.8 % (18.3-44.2); Mean Corpuscular HGB Conc 31.7 g/dl (32-36); Mean Corpuscular Hemoglobin 27.8 pg (26-34); Mean Corpuscular Volume 87.6 fl (80-100); Mean Platelet Volume 10.8 fl (7.4-10.4); Monocytes Absolute Auto 2.8 K/mm3 (0.1-0.6); Monocytes Percent Auto 6.2 % (2.6-8.5); Neutrophils Absolute Auto 39.1 K/mm3 (1.3-6.7); Neutrophils Percent Auto 86.4 % (45.5-73.1); Platelet Count Result 355 k/mm3 (150-375); Red Blood Count 4.61 M/mm3 (4.2-5.4); Red Cell Distribution Width 14.2 % (11.5-14.5); White Blood Count 45.2 K/mm3 (4.5-10.0)
[2022-09-10 06:36] LABS: Alanine Aminotransferase 552 U/L (6-35); Albumin Level 4.5 g/dL (3.5-5.1); Alkaline Phosphatase 79 U/L (38-126); Anion Gap 18 mmol/L (8-16); Aspartate Amino Transferase 540 U/L (14-36); Bilirubin,Total 1.1 mg/dL (0.2-1.3); Blood Urea Nitrogen 107 mg/dL (7-17); Calcium 8.4 mg/dL (8.4-10.2); Carbon Dioxide 22 mmol/L (22-30); Chloride 98 mmol/L (98-107); Glucose 261 mg/dL (65-110); Phosphorus 6.2 mg/dL (2.5-4.5); Potassium 4.7 mmol/L (3.4-5.0); Sodium 138 mmol/L (137-145)
[2022-09-10 06:40] LABS: Estimated CRCL calculation 10 ml/min; Estimated Glomerular Filt Rate 7
[2022-09-10] MEDS: NOREPINEPHRINE 8 MG/D5W 250 ML 8 MG/250 ML BAG 28.13 MG IV CONT ×2 (06:52→17:18)
[2022-09-10 07:09] LABS: Glucose Point of Care 122 mg/dl (65-105)
--- NOTE | 2022-09-10 07:47 | WPDINTPN ---
Progress Note: A&P Assessment and Plan (1) Sepsis: Code(s): A41.9 - Sepsis, unspecified organism Status: Acute Assessment and Plan: -09/07/2022 blood cultures, preliminary results are negative x2 -09/05/2022 Blood cultures: Preliminary results are negative x2 -09/05/2022 urine cultures are negative -09/22/2022 urine cultures negative so far -09/22/2022 sputum cultures negative so far Patient was Re-intubated on 09/07/2022 due to possible aspiration, hypercapnia respiratory failure , possible pneumonia patient was started on vancomycin and Zosyn (09/07) 09/10 patient became febrile overnight, tachycardic and hypotensive suggestive of sepsis. She is already on vancomycin Zosyn Patient had her tunneled dialysis catheter manipulated multiple times yesterday trouble should and a right subclavian temporary dialysis catheter was placed which could be the cause of fever. Patient also appears to be tender on abdominal exam. No significant diarrhea -repeat blood culture sent -change Swift catheter, send UA and urine culture -repeat sputum cultures -CT chest abdomen pelvis noncontrast and CT sinuses noncontrast to evaluate for source of infection -continue vancomycin, change Zosyn to imipenem (2) Shock: Code(s): R57.9 - Shock, unspecified Status: Acute Assessment and Plan: Likely secondary to sepsis and sedation Patient was given 1 L saline overnight and I will give additional fluid boluses 1 Patient is on hemodialysis and hence not a candidate for liberal IV fluids (3) Acute on chronic respiratory failure with hypoxia and hypercapnia: Code(s): J96.21 - Acute and chronic respiratory failure with hypoxia; J96.22 - Acute and chronic respiratory failure with hypercapnia Status: Acute Assessment and Plan: Multifactorial acute on chronic respiratory failure with hypoxia and hypercarbia secondary to COPD, obesity hypoventilation syndrome, CHF and community-acquired pneumonia. Patient uses 5-6 L of oxygen at home all times and CPAP at night Patient was intubated in the ER on 08/27/2022 Extubated on 09/05/2022. Post extubation patient had some stridor, dyspnea, tachycardia and hypertension. Patient was given Decadron, racemic epinephrine with improvement RE intubated 09/07/2022, due to hypercapnic respiratory failure and possible aspiration she had emesis, -09/07/2022: Patient became hypoxic, Unable to bag the patient, ETT was removed, had inch and a half plan of thick secretions. New ETT was inserted using a glide scope, intubation was uneventful -chest x-ray reviewed - ABGs reviewed. -Influenza RSV and COVID negative on admission - Urine Legionella and pneumococcal antigen are negative on admission -Mycoplasma IgM was low on admission 08/27/22 CT chest 1. Tree-in-bud opacities as can be seen with atypical infection (including but not limited to: MAC, TB, fungal), ABPA, airways disease, and less likely aspiration. 2. Nodular opacity in right upper lobe should be followed after the appropriate therapy and cessation of symptoms to ensure resolution. 3. Mediastinal lymphadenopathy. 4. Trace bilateral pleural effusions. 5. Mild interstitial edema (4) Acute kidney injury: Code(s): N17.9 - Acute kidney failure, unspecified Status: Acute Assessment and Plan: Patient presented with normal creatinine but was given Lasix in ER and on presentation due to congestive heart failure Urine electrolytes suggest prerenal. Although echo shows dilated IVC with increased right atrial pressure, patient was given additional IV fluids but creatinine continuesdto increase Normal CK Unremarkable renal ultrasound -dialysis started on 08/30/2022 -patient was diuresed on 09/05 with 1000 mL in fluid removal as the dialysis catheter was not functioning well -09/08 tunneled dialysis catheter was placed. - 09/09-tunneled dialysis catheter did not work properly and despite multiple attempts to fix it by general surgery it
--- NOTE | 2022-09-10 10:07 | P.PNNP_ITS ---
Progress Note: A&P Assessment and Plan (1) Acute kidney injury: Code(s): N17.9 - Acute kidney failure, unspecified Status: Acute Assessment and Plan: * suspect due to ATN * evaluation to date * urine electrolytes prerenal * normal CPK * renal ultrasound unremarkable * no significant response to trial of IVFs * given declining urine output and risng BUN + creatinine, initiated on HD (on 08/30/22) * poor dialysis treatment on Thursday (09/06/22) * s/p tunneled catheter yesterday -- unfortunately, catheter not working * possibly repositioning versus need tempoorary catheter?? * will reattempt HD later today depending on intervention * follow trend of repeat labs and urine to assess for renal recovery (2) Shock: Code(s): R57.9 - Shock, unspecified Status: Acute Assessment and Plan: * s/p IVF boluses and on levophed * fluid removal with HD will be challenging in this situation * follow repeat cultures * on antibioitcs (3) Acute on chronic respiratory failure with hypoxia and hypercapnia: Code(s): J96.21 - Acute and chronic respiratory failure with hypoxia; J96.22 - Acute and chronic respiratory failure with hypercapnia Status: Acute Assessment and Plan: * multifactorial etiology: * COPD * DOMINIC * CHF * pneumonia (aspiration?) * possible sepsis * follow culture data * on broad spectrum antibiotic therapy * fluid removal with dialysis as tolerated by hemodynamics (4) Congestive heart failure: Code(s): I50.9 - Heart failure, unspecified Status: Acute Assessment and Plan: * as noted by testing on admission * s/p IV diuresis with limited response * Echo shows diastolic heart failure and pulmonary HTN * follow volume status - fluid removal with dialysis/HD (5) Pneumonia: Code(s): J18.9 - Pneumonia, unspecified organism Status: Acute Assessment and Plan: * due to concerns for aspiration - on antibiotics * follow repeat culture data (6) COPD (chronic obstructive pulmonary disease): Code(s): J44.9 - Chronic obstructive pulmonary disease, unspecified Status: Chronic Assessment and Plan: * see #2 * continue current therapy The patient remains critically ill with noted deterioration in the last 24 hours. Given her deteriorating clinical status, may need to discuss goals of care with family to determine how aggressive care should be at this time. Will continue to follow. Subjective Date/time seen: 09/10/22 10:07 Events overnight/last 24 hours noted -- s/p temporary subclavian HD catheter placed with subsequent short dialysis treatment in the evening; hypotension t oward the end of dialyis treatment with persisted even after discontinuation of HD treatment requiring initiation of vasopressors and IVF boluses; febrile overnight/this AM; remains intubated and sedated and just started dialysis treatment at the time of my visit. Exam Narrative: General: WD/WN female intubated and on mechanical ventilaltion. Heart: normal S1 and S2; no rub Lungs: coarse breath sounds bilaterally Abdomen: soft, nontender, nondistended, positive bowel sounds Extremities: 1+ edema noted Skin: no rash Objective Data Vital Signs Vital Signs: Vital Signs Temp Pulse Resp BP Pulse Ox O2 Del Method FiO2 09/10/22 09:45 102.7 F H 118 H 34 H 88/59 L 95
--- NOTE | 2022-09-10 10:07 | PM.PNNEP ---
Progress Note: A&P Assessment and Plan (1) Acute kidney injury: Code(s): N17.9 - Acute kidney failure, unspecified Status: Acute Assessment and Plan: suspect due to ATN evaluation to date urine electrolytes prerenal normal CPK renal ultrasound unremarkable no significant response to trial of IVFs given declining urine output and risng BUN + creatinine, initiated on HD (on 08/30/22) poor dialysis treatment on Thursday (09/06/22) s/p tunneled catheter yesterday -- unfortunately, catheter not working possibly repositioning versus need tempoorary catheter?? will reattempt HD later today depending on intervention follow trend of repeat labs and urine to assess for renal recovery (2) Shock: Code(s): R57.9 - Shock, unspecified Status: Acute Assessment and Plan: s/p IVF boluses and on levophed fluid removal with HD will be challenging in this situation follow repeat cultures on antibioitcs (3) Acute on chronic respiratory failure with hypoxia and hypercapnia: Code(s): J96.21 - Acute and chronic respiratory failure with hypoxia; J96.22 - Acute and chronic respiratory failure with hypercapnia Status: Acute Assessment and Plan: multifactorial etiology: COPD DOMINIC CHF pneumonia (aspiration?) possible sepsis follow culture data on broad spectrum antibiotic therapy fluid removal with dialysis as tolerated by hemodynamics (4) Congestive heart failure: Code(s): I50.9 - Heart failure, unspecified Status: Acute Assessment and Plan: as noted by testing on admission s/p IV diuresis with limited response Echo shows diastolic heart failure and pulmonary HTN follow volume status - fluid removal with dialysis/HD (5) Pneumonia: Code(s): J18.9 - Pneumonia, unspecified organism Status: Acute Assessment and Plan: due to concerns for aspiration - on antibiotics follow repeat culture data (6) COPD (chronic obstructive pulmonary disease): Code(s): J44.9 - Chronic obstructive pulmonary disease, unspecified Status: Chronic Assessment and Plan: see #2 continue current therapy The patient remains critically ill with noted deterioration in the last 24 hours. Given her deteriorating clinical status, may need to discuss goals of care with family to determine how aggressive care should be at this time. Will continue to follow. Subjective Date/time seen: 09/10/22 10:07 Events overnight/last 24 hours noted -- s/p temporary subclavian HD catheter placed with subsequent short dialysis treatment in the evening; hypotension toward the end of dialyis treatment with persisted even after discontinuation of HD treatment requiring initiation of vasopressors and IVF boluses; febrile overnight/this AM; remains intubated and sedated and just started dialysis treatment at the time of my visit. Exam Narrative: General: WD/WN female intubated and on mechanical ventilaltion. Heart: normal S1 and S2; no rub Lungs: coarse breath sounds bilaterally Abdomen: soft, nontender, nondistended, positive bowel sounds Extremities: 1+ edema noted Skin: no rash Objective Data Vital Signs Vital Signs: Vital Signs Temp Pulse Resp BP Pulse Ox O2 Del Method FiO2 09/10/22 09:45 102.7 F H 118 H 34 H 88/59 L 95 09/10/22 09:20 115 H 98 Mechanical Ventilation 50 09/10/22 08:00 102.8 F H 117 H 36 H 109/70 98 09/10/22 08:29 116 H 98 Mechanical Ventilation 50 09/10/22 08:16 117 H 34 H 09/10/22 07:06 115 H 110/61 09/10/22 06:52 115 H 09/10/22 06:45 115 H 110/60 09/10/22 06:31 117 H 103/62 09/10/22 05:15 102.1 F H 134 H 34 H 97 Mechanical Ventilation 09/10/22 06:23 119 H 101/69 09/10/22 06:00 124 H 09/10/22 06:00 124 H 36 H 09/10/22 05:00 127 H 34 H 09/10/22 06:00 36 H 09/10/22 05:0
--- NOTE | 2022-09-10 10:29 | P.PNINT_ITS ---
Progress Note: A&P Assessment and Plan (1) Sepsis: Code(s): A41.9 - Sepsis, unspecified organism Status: Acute Assessment and Plan: -09/07/2022 blood cultures, preliminary results are negative x2 -09/05/2022 Blood cultures: Preliminary results are negative x2 -09/05/2022 urine cultures are negative -09/22/2022 urine cultures negative so far -09/22/2022 sputum cultures negative so far Patient was Re-intubated on 09/07/2022 due to possible aspiration, hypercapnia respiratory failure , possible pneumonia patient was started on vancomycin and Zosyn (09/07) 09/10 patient became febrile overnight, tachycardic and hypotensive suggestive of sepsis. She is already on vancomycin Zosyn Patient had her tunneled dialysis catheter manipulated multiple times yesterday trouble should and a right subclavian temporary dialysis catheter was placed which could be the cause of fever. Patient also appears to be tender on abdominal exam. No significant diarrhea -repeat blood culture sent -change Swift catheter, send UA and urine culture -repeat sputum cultures -CT chest abdomen pelvis noncontrast and CT sinuses noncontrast to evaluate for source of infection -continue vancomycin, change Zosyn to imipenem (2) Shock: Code(s): R57.9 - Shock, unspecified Status: Acute Assessment and Plan: Likely secondary to sepsis and sedation Patient was given 1 L saline overnight and I will give additional fluid boluses 1 Patient is on hemodialysis and hence not a candidate for liberal IV fluids (3) Acute on chronic respiratory failure with hypoxia and hypercapnia: Code(s): J96.21 - Acute and chronic respiratory failure with hypoxia; J96.22 - Acute and chronic respiratory failure with hypercapnia Status: Acute Assessment and Plan: Multifactorial acute on chronic respiratory failure with hypoxia and hypercarbia secondary to COPD, obesity hypoventilation syndrome, CHF and community-acquired pneumonia. Patient uses 5-6 L of oxygen at home all times and CPAP at night Patient was intubated in the ER on 08/27/2022 Extubated on 09/05/2022. Post extubation patient had some stridor, dyspnea, tachycardia and hypertension. Patient was given Decadron, racemic epinephrine with improvement RE intubated 09/07/2022, due to hypercapnic respiratory failure and possible aspiration she had emesis, -09/07/2022: Patient became hypoxic, Unable to bag the patient, ETT was removed, had inch and a half plan of thick secretions. New ETT was inserted using a glide scope, intubation was uneventful -chest x-ray reviewed - ABGs reviewed. -Influenza RSV and COVID negative on admission - Urine Legionella and pneumococcal antigen are negative on admission -Mycoplasma IgM was low on admission 08/27/22 CT chest 1. Tree-in-bud opacities as can be seen with atypical infection (including but not limited to: MAC, TB, fungal), ABPA, airways disease, and less likely aspiration. 2. Nodular opacity in right upper lobe should be followed after the appropriate therapy and cessation of symptoms to ensure resolution. 3. Mediastinal lymphadenopathy. 4. Trace bilateral pleural effusions. 5. Mild interstitial edema (4) Acute kidney injury: Code(s): N17.9 - Acute kidney failure, unspecified Status: Acute Assessment and Plan: Patient presented with normal creatinine but was given Lasix in ER and on presentation due to congestive heart failure Urine electrolytes suggest prerenal. Although echo shows dilated IVC with increased right atrial pressure, patient was given additional IV fluids but creatinine continuesdto increase Normal CK Unremarkable jae
[2022-09-10] MEDS: EPINEPHrine INJ 1 MG in DEXTROSE 5% IN WATER 250 ML 45.18 MG IV CONT (10:30)
[2022-09-10] MEDS: SODIUM BICARBONATE 8.4% 50 MEQ/50 ML SYRINGE 100 MEQ IV PUSH ×2 (10:31→11:14)
[2022-09-10] MEDS: ALBUMIN HUMAN 5% 25 GM/500 ML BTL IV CONT (10:32)
[2022-09-10] MEDS: VASOPRESSIN INJ 100 UNITS in DEXTROSE 5% 95 ML IV CONT (10:38)
[2022-09-10 11:14] LABS: Appearance Urine Cloudy (Clear); Bilirubin Urine Negative (Negative); Blood Urine 3+ (Negative); Color Urine Yellow (Yellow); Glucose Urine UA Negative (Negative); Ketones Urine Negative (Negative); Leukocyte Esterase Ur 2+ LEU/UL (Negative); Nitrate Urine Negative (Negative); Protein Urine 2+ mg/dL (Negative); Urobilinogen Urine 0.2 mg/dL (<2.0); pH Urine 5.5 (5.0-9.0)
[2022-09-10] MEDS: CALCIUM GLUC 2,000 MG/NS 100ML 2,000 MG/100 ML BAG 100 MG IVPB (11:16)
[2022-09-10 11:26] LABS: Bacteria Urine Trace /hpf; Mucus Urine Rare /lpf; RBC Urine >75 /hpf (0-2); Renal Epithelial Cells Urine Rare /hpf (None Seen); Squamous Epithelial Cell Urine Rare /hpf (Few); WBC Clumps Urine Present /HPF; WBC Urine >75 /hpf
[2022-09-10 11:27] LABS: Add Urine Microscopic? YES
[2022-09-10] MEDS: VANCOMYCIN ORAL 500 MG/10 ML SYRUP FEED TUBE (11:29)
--- NOTE | 2022-09-10 11:36 | P.PNCROSS_ITS ---
Event Note Event Note Event Note: Patient continues to deteriorate requiring increasing dose of pressors. I requ neelad dialysis nurse to discontinue hemodialysis after 1 hour as patient was too unstable. Arterial line was placed emergently to get accurate blood pressure monitoring since patient was on high dose of vasopressors. Patient was given additional 2 amps of bicarb is being given calcium now. 1 L saline bolus is additionally being given at this time. Patient is on Levophed vasopressin and epinephrine. Patient's son and are bedside. Again had detailed discussion with them explained them patient's current status including severe septic shock, respiratory failure and baseline medical condition. I explained them the patient is critically ill and may not survive this hospitalization considering severe sepsis and shock she is in. They requested the patient be kept full code at this time until they can have other family members visit her. I spoken to General surgery and Dr. Gauthier will be here shortly to remove the tunneled dialysis catheter. Will also get stat echo. Additional critical care time 60 minutes
[2022-09-10 11:47] LABS: Toxigenic C. Diff NEGATIVE (NEGATIVE)
--- NOTE | 2022-09-10 11:54 | P.PCNBED_ITS ---
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 Patient hemodynamically unstable. Procedure done emergently for accurate blood pressure monitoring. Later I spoke to patient's son and and updated them with the reasoning behind the emergent procedure.
--- NOTE | 2022-09-10 11:57 | W.PM.PROC2 ---
Procedure Note - Detailed Date of Procedure 09/10/22 Pre-op Diagnosis septic shock, renal failure, nonfunctional [facility] TDC Post-op Diagnosis Same Procedure Performed Removal left internal jugular tunneled dialysis catheter Surgeon Paulette Gauthier MD Anesthesia General Indications 62-year-old female with worsening septic shock of unknown origin. Patient had left internal jugular tunnel dialysis catheter placed 2 days ago, however this is very positional and has been largely nonfunctional for dialysis. The patient has subsequently had a right subclavian temporary dialysis catheter placed that is working properly. Given her worsening sepsis, I have been asked to remove tunnel dialysis catheter. Findings Clot noted at the end left IJ tunneled dialysis catheter, tip sent for culture Description of Procedure The patient was placed in the supine position. Patient was already adequately sedated and is on mechanical ventilation. I then prepped and draped the area in normal sterile fashion. A time-out was then done to verify the patient's identity, as well as the procedure being performed. I began by removing the previously placed stitches in the left chest. I then gently placed traction on the catheter and was able to free up the cuff. Once the cuff was freed, I was able to gently remove the catheter in full. The tip of the catheter was noted to be clotted. I then cut the tip off and send the tip for culture. I then held pressure at the level of the left internal jugular vein for approximately 5 minutes. No bleeding or hematoma was noted. Sterile dressing including pressure dressing at the left internal jugular vein was placed. The patient tolerated the procedure and will continue to be in critical condition in the ICU. Estimated Blood Loss 10 Complications No immediate complications Condition Critical Disposition ICU [facility] Billing Surgery - Charge Forward: Surgery Billing
[2022-09-10 12:02] LABS: Glucose Point of Care 213 mg/dl (65-105)
--- NOTE | 2022-09-10 12:03 | PCFNICU ---
ICU Rounding Note: Pt current nutrition is Nepro at 50 ml/hr Last recorded weight is 99.2 kg. Bowel Motility:FMS-discussed with Vision Teacher. Plans for Cdiff culture. Labs Reviewed:BUN 107,GFR 18,Cr 6.2,PO4 6.2 Meds Noted:Levophed,Vasopressin,Epinephrine,Versed, Fentanyl,Vancomycin Skin: WNL Additional Notes: Patient remains on mechanical vent. Tube feedings on hold. 3 vasopressors today. Dialysis discontinue after 1 hour of treatment. Artline placed. Following daily in ICU rounds. Will monitor daily in ICU rounds and reassess every Thursday and Thursday.
[2022-09-10 12:10] LABS: Alveolar/Arterial O2 Gradient 213.9 mmHg; Base Excess ABG -0.9 mEq/l (+/-2.0); Fractional Inspired Oxygen 50 %; HCO3 ABG 23.8 mEq/l (22.0-26.0); Oxygen Content ABG 14.8 %vol (16.0-22.0); Oxygen Saturation ABG 97.4 % (95.0-100.0); Oxyhemoglobin 95.6 % THb (90.0-100.0); PCO2 ABG 39.8 mmHg (35.0-45.0); PO2 ABG 97.8 mmHg (80.0-100.0); PO2 FiO2 Ratio Arterial Blood 1.96 %; Total Hemoglobin 10.9 g/dL (12.0-18.0); pH ABG 7.395 (7.350-7.450)
[2022-09-10 12:12] LABS: Device VENTILATOR; Site Drawn ARTLINE
[2022-09-10 12:13] LABS: Arterial Blood Gas PEEP 5 cmH2O; Arterial Blood Gas Tidal Volume 450 ml; Arterial Blood Gas Vent Mode CMV; Arterial Blood Gas Ventilator rate 18 /MIN
[2022-09-10] MEDS: PERFLUTREN LIPID MICROSPHERES 1.5 ML VIAL DILUTED TO 10 ML TOTAL VOLUME IV PUSH (13:13)
--- NOTE | 2022-09-10 13:14 | IVDEFINITY ---
Prior to administration of IV Definity the patient was educated on the risks and benefits of the imaging enhancing agent including potential adverse side effects. The patient verbalized understanding. Allergies were verified. No exclusion criteria were identified and at least one of the following inclusion criteria were met: 1) physician request, 2) patient technically difficult to image (per the [place] [employer] guidelines of two or more segments not discernable within the apical view), or 3) questionable left ventricular function. ?
[2022-09-10] MEDS: PANTOPRAZOLE SODIUM IV 40 MG VIAL IV PUSH (14:49)
[2022-09-10] MEDS: TOLNAFTATE 1% POWDER 45 GM BTL 1 APPLIC TOPICAL ×2 (14:50→20:58)
[2022-09-10] MEDS: MINERAL OIL/WHITE PETROLATUM OINTMENT 1 APPLIC EACH EYE ×2 (14:50→20:58)
[2022-09-10] MEDS: INSULIN GLARGINE (*BKC) 100 UNITS/ML 15 UNITS SUB-Q (14:52)
[2022-09-10 18:09] LABS: Glucose Point of Care 245 mg/dl (65-105)
[2022-09-10 20:58] LABS: Glucose Point of Care 185 mg/dl (65-105)
[2022-09-10] MEDS: APIXABAN 2.5 MG TABLET FEED TUBE (20:58)
[2022-09-11] VITALS (65 sets, daily range): BP systolic 71–126; BP diastolic 34–59; PULSE 85–108; RESP 18–25; TEMP 34.1–37.4; O2SAT 91–99
[2022-09-11 00:38] LABS: Glucose Point of Care 188 mg/dl (65-105)
[2022-09-11] MEDS: LEVALBUTEROL NEB 1.25 MG/3 ML 0.63 MG INHALATION ×3 (01:47→14:37)
[2022-09-11] MEDS: IPRATROPIUM BR 0.02% INH SOLN 0.5 MG/2.5 ML VIAL INHALATION ×3 (01:49→14:37)
[2022-09-11] MEDS: INSULIN ASPART (*BKC) 100 UNITS/ML SUB-Q ×2 (04:41→16:13)
[2022-09-11 04:43] LABS: Glucose Point of Care 205 mg/dl (65-105)
[2022-09-11 05:12] LABS: Alveolar/Arterial O2 Gradient 152.7 mmHg; Base Excess ABG -0.9 mEq/l (+/-2.0); Carboxyhemoglobin 0.5 % THb (0-2.0); Fractional Inspired Oxygen 40 %; HCO3 ABG 25.2 mEq/l (22.0-26.0); Methemoglobin ABG 0.4 %THb (0-1.5); Oxygen Content ABG 18.2 %vol (16.0-22.0); Oxygen Saturation ABG 94.9 % (95.0-100.0); Oxyhemoglobin 93.5 % THb (90.0-100.0); PO2 ABG 78.5 mmHg (80.0-100.0); PO2 FiO2 Ratio Arterial Blood 1.96 %; Reduced Hemoglobin 5.6 %THb (0-5.0); Total Hemoglobin 13.8 g/dL (12.0-18.0); pH ABG 7.347 (7.350-7.450)
[2022-09-11 05:13] LABS: Device VENTILATOR; Modified Allen's Test Pass; Site Drawn LEFT RADIAL
[2022-09-11 05:14] LABS: Arterial Blood Gas PEEP 5 cmH2O; Arterial Blood Gas Tidal Volume 450 ml; Arterial Blood Gas Vent Mode CMV; Arterial Blood Gas Ventilator rate 18 /MIN
[2022-09-11 05:38] LABS: Hemoglobin 10.5 g/dL (12.0-15.0); Mean Corpuscular HGB Conc 31.8 g/dl (32-36); Mean Corpuscular Hemoglobin 28.8 pg (26-34); Mean Corpuscular Volume 90.7 fl (80-100); Platelet Count Result 180 k/mm3 (150-375); Red Blood Count 3.64 M/mm3 (4.2-5.4); Red Cell Distribution Width 14.5 % (11.5-14.5); White Blood Count 32.3 K/mm3 (4.5-10.0)
[2022-09-11 06:01] LABS: Albumin Level 3.6 g/dL (3.5-5.1); Alkaline Phosphatase 59 U/L (38-126); Anion Gap 15 mmol/L (8-16); Bilirubin,Total 0.6 mg/dL (0.2-1.3); Blood Urea Nitrogen 116 mg/dL (7-17); Calcium 8.7 mg/dL (8.4-10.2); Carbon Dioxide 25 mmol/L (22-30); Chloride 97 mmol/L (98-107); Estimated CRCL calculation 11 ml/min; Estimated Glomerular Filt Rate 7; Glucose 189 mg/dL (65-110); Potassium 3.5 mmol/L (3.4-5.0); Sodium 137 mmol/L (137-145)
[2022-09-11 06:52] LABS: Alanine Aminotransferase 1901 U/L (6-35); Aspartate Amino Transferase 829 U/L (14-36)
[2022-09-11] MEDS: MIDAZOLAM 100MG/NS 100ML(*CRX) 100 MG/100 ML BAG IV CONT (07:50)
[2022-09-11] MEDS: PANTOPRAZOLE SODIUM IV 40 MG VIAL IV PUSH (08:27)
[2022-09-11] MEDS: APIXABAN 2.5 MG TABLET FEED TUBE (08:27)
[2022-09-11] MEDS: TOLNAFTATE 1% POWDER 45 GM BTL 1 APPLIC TOPICAL (08:27)
[2022-09-11] MEDS: INSULIN GLARGINE (*BKC) 100 UNITS/ML 20 UNITS SUB-Q (08:28)
[2022-09-11 08:44] LABS: Glucose Point of Care 197 mg/dl (65-105)
[2022-09-11] MEDS: CENTRAL LINE FLUSH 10 ML IV PUSH ×3 (08:47→17:32)
--- NOTE | 2022-09-11 09:01 | WPDINTPN ---
Progress Note: A&P Assessment and Plan (1) Sepsis: Code(s): A41.9 - Sepsis, unspecified organism Status: Acute Assessment and Plan: -09/07/2022 blood cultures, preliminary results are negative x2 -09/05/2022 Blood cultures: Preliminary results are negative x2 -09/05/2022 urine cultures are negative -09/22/2022 urine cultures negative so far -09/22/2022 sputum cultures negative so far Patient was Re-intubated on 09/07/2022 due to possible aspiration, hypercapnia respiratory failure , possible pneumonia patient was started on vancomycin and Zosyn (09/07) 09/10 patient became febrile overnight, tachycardic and hypotensive suggestive of sepsis. She was already on vancomycin Zosyn Patient had her tunneled dialysis catheter manipulated multiple times 09/09 trouble should and a right subclavian temporary dialysis catheter was placed which could be the cause of fever. Patient also appears to be tender on abdominal exam. No significant diarrhea She was placed on dialysis which further led to drop in blood pressure. Patient was given albumin bolus, vasopressin and started on epinephrine infusion CT scan of sinuses chest abdomen pelvis were done and did not show any specific source of infection Stool was negative for C diff -will DC p.o. vanc I also discussed with Dr. Gauthier from General surgery and he removed the tunneled dialysis catheter as a suspected may be infected -repeat blood culture sent and is growing Gram-positive cocci in 1/2 bottles -Swift catheter was changed - UA suggestive of UTI and urine culture is pending -sputum cultures is pending but CT scan not suggestive of pneumonia -continue vancomycin and imipenem (2) Bacteremia: Code(s): R78.81 - Bacteremia Status: Acute Assessment and Plan: See above (3) Shock: Code(s): R57.9 - Shock, unspecified Status: Acute Assessment and Plan: Likely secondary to sepsis Hold further IV fluids Epinephrine and vasopressin has been weaned off Currently on low-dose Levophed which will be continued. Will re-attempt hemodialysis today Repeat echo was ordered (4) Acute on chronic respiratory failure with hypoxia and hypercapnia: Code(s): J96.21 - Acute and chronic respiratory failure with hypoxia; J96.22 - Acute and chronic respiratory failure with hypercapnia Status: Acute Assessment and Plan: Multifactorial acute on chronic respiratory failure with hypoxia and hypercarbia secondary to COPD, obesity hypoventilation syndrome, CHF and community-acquired pneumonia. Patient uses 5-6 L of oxygen at home all times and CPAP at night Patient was intubated in the ER on 08/27/2022 Extubated on 09/05/2022. Post extubation patient had some stridor, dyspnea, tachycardia and hypertension. Patient was given Decadron, racemic epinephrine with improvement RE intubated 09/07/2022, due to hypercapnic respiratory failure and possible aspiration she had emesis, -09/07/2022: Patient became hypoxic, Unable to bag the patient, ETT was removed, had inch and a half plan of thick secretions. New ETT was inserted using a glide scope, intubation was uneventful -chest x-ray reviewed - ABGs reviewed. -Influenza RSV and COVID negative on admission - Urine Legionella and pneumococcal antigen are negative on admission -Mycoplasma IgM was low on admission -will attempt weaning trial if patient tolerates hemodialysis (5) Acute kidney injury: Code(s): N17.9 - Acute kidney failure, unspecified Status: Acute Assessment and Plan: Patient presented with normal creatinine but was given Lasix in ER and on presentation due to congestive heart failure Urine electrolytes suggest prerenal. Although echo shows dilated IVC with increased right atrial pressure, patient was given additional IV fluids but creatinine continuesdto increase Normal CK Unremarkable renal ultrasound -dialysis started on 08/30/2022 -patient was diuresed on 09/05 with 1000 mL in fluid rem
[2022-09-11] MEDS: NOREPINEPHRINE 8 MG/D5W 250 ML 8 MG/250 ML BAG 18.75 MG IV CONT (09:15)
[2022-09-11] MEDS: EPOETIN ALFA-EPBX 4,000 UNITS/ML VIAL 4000 UNITS IV PUSH (09:44)
[2022-09-11] MEDS: SODIUM CHLORIDE 0.9% IV 1,000 ML 999 ML IV CONT (09:45)
--- NOTE | 2022-09-11 09:54 | PC.NURSE ---
Called pt's son Juancarlos with patient update and per Dr. Welch's request; discussed patient needing CRRT and not tolerating hemodialysis and need for transfer to different facility for that; Juancarlos stated that he understood and was okay with transfer; Dr. Welch updated and starting phone calls for transfer facility's
--- NOTE | 2022-09-11 10:15 | PCFNICU ---
ICU Rounding Note: Pt current nutrition is Nepor @ 50ml/hr. Nutrition recommendation: Continue with current plan of care Last recorded weight is 103.3 kg. Bowel Motility: +BM 09/10 Labs Reviewed: Hgb:10.5, HCT:33, BUN:116, Cr:5.8, Glu:197 Meds Noted: eliquis, Levophed,Vasopressin,Epinephrine,Versed, Fentanyl,Vancomycin Skin: WNL Additional Notes: Pt continues on mechanical ventilation. Tube feeding at goal rate and pt is tolerating. prosource added for additional protein. Pt not tolerating dialysis, potential to transfer today. Following daily in ICU rounds. Will monitor daily in ICU rounds and reassess every Thursday and Thursday.
--- NOTE | 2022-09-11 12:07 | P.PNNP_ITS ---
Progress Note: A&P Assessment and Plan (1) Acute kidney injury: Code(s): N17.9 - Acute kidney failure, unspecified Status: Acute Assessment and Plan: * suspect due to ATN * evaluation to date * urine electrolytes prerenal * normal CPK * renal ultrasound unremarkable * no significant response to trial of IVFs * given declining urine output and risng BUN + creatinine, initiated on HD (on 08/30/22) * poor dialysis treatment on Thursday (09/06/22) * s/p tunneled catheter yesterday -- unfortunately, catheter not working * s/p new temporary HD catheter -- working reasonably well * follow trend of repeat labs and urine to assess for renal recovery (2) Shock: Code(s): R57.9 - Shock, unspecified Status: Acute Assessment and Plan: * s/p IVF boluses and on levophed * fluid removal with HD will be challenging in this situation * follow repeat cultures * on antibioitcs (3) Acute on chronic respiratory failure with hypoxia and hypercapnia: Code(s): J96.21 - Acute and chronic respiratory failure with hypoxia; J96.22 - Acute and chronic respiratory failure with hypercapnia Status: Acute Assessment and Plan: * multifactorial etiology: * COPD * DOMINIC * CHF * pneumonia (aspiration?) * possible sepsis * follow culture data * on broad spectrum antibiotic therapy * fluid removal with dialysis as tolerated by hemodynamics (4) Congestive heart failure: Code(s): I50.9 - Heart failure, unspecified Status: Acute Assessment and Plan: * as noted by testing on admission * s/p IV diuresis with limited response * Echo shows diastolic heart failure and pulmonary HTN * follow volume status - fluid removal with dialysis/HD (5) Pneumonia: Code(s): J18.9 - Pneumonia, unspecified organism Status: Acute Assessment and Plan: * due to concerns for aspiration - on antibiotics * follow repeat culture data (6) COPD (chronic obstructive pulmonary disease): Code(s): J44.9 - Chronic obstructive pulmonary disease, unspecified Status: Chronic Assessment and Plan: * see #2 * continue current therapy The patient remains critically ill with noted deterioration in the last 24 hours. Given her deteriorating clinical status, may need to discuss goals of care with family to determine how aggressive care should be at this time. Furthermore, may need transfer to another facility where CRRT is available given limitations with intermittent HD as noted. Will continue to follow. Subjective Date/time seen: 09/11/22 12:07 Patient tolerating hemodialysis treatment at the time of my visit (seen on HD at 12:00PM); not tolerating fluid removal so ultrafiltration is currently off; remains intubated and on mechanical ventilation as well as vasopressor therapy. Exam Narrative: General: WD/WN female intubated and on mechanical ventilaltion. Heart: normal S1 and S2; no rub Lungs: coarse breath sounds bilaterally Abdomen: soft, nontender, nondistended, positive bowel sounds Extremities: 1+ edema noted Skin: no rash Objective Data Vital Signs Vital Signs: Vital Signs Temp Pulse Resp BP Pulse Ox O2 Del Method FiO2 09/11/22 12:00 97 Mechanical Ventilation 40 09/11/22 12:42 96 24 H 09/11/22 12:41 96 24 H 09/11/22 12:39 96 107/50 L
--- NOTE | 2022-09-11 12:07 | PM.PNNEP ---
Progress Note: A&P Assessment and Plan (1) Acute kidney injury: Code(s): N17.9 - Acute kidney failure, unspecified Status: Acute Assessment and Plan: suspect due to ATN evaluation to date urine electrolytes prerenal normal CPK renal ultrasound unremarkable no significant response to trial of IVFs given declining urine output and risng BUN + creatinine, initiated on HD (on 08/30/22) poor dialysis treatment on Thursday (09/06/22) s/p tunneled catheter yesterday -- unfortunately, catheter not working s/p new temporary HD catheter -- working reasonably well follow trend of repeat labs and urine to assess for renal recovery (2) Shock: Code(s): R57.9 - Shock, unspecified Status: Acute Assessment and Plan: s/p IVF boluses and on levophed fluid removal with HD will be challenging in this situation follow repeat cultures on antibioitcs (3) Acute on chronic respiratory failure with hypoxia and hypercapnia: Code(s): J96.21 - Acute and chronic respiratory failure with hypoxia; J96.22 - Acute and chronic respiratory failure with hypercapnia Status: Acute Assessment and Plan: multifactorial etiology: COPD DOMINIC CHF pneumonia (aspiration?) possible sepsis follow culture data on broad spectrum antibiotic therapy fluid removal with dialysis as tolerated by hemodynamics (4) Congestive heart failure: Code(s): I50.9 - Heart failure, unspecified Status: Acute Assessment and Plan: as noted by testing on admission s/p IV diuresis with limited response Echo shows diastolic heart failure and pulmonary HTN follow volume status - fluid removal with dialysis/HD (5) Pneumonia: Code(s): J18.9 - Pneumonia, unspecified organism Status: Acute Assessment and Plan: due to concerns for aspiration - on antibiotics follow repeat culture data (6) COPD (chronic obstructive pulmonary disease): Code(s): J44.9 - Chronic obstructive pulmonary disease, unspecified Status: Chronic Assessment and Plan: see #2 continue current therapy The patient remains critically ill with noted deterioration in the last 24 hours. Given her deteriorating clinical status, may need to discuss goals of care with family to determine how aggressive care should be at this time. Furthermore, may need transfer to another facility where CRRT is available given limitations with intermittent HD as noted. Will continue to follow. Subjective Date/time seen: 09/11/22 12:07 Patient tolerating hemodialysis treatment at the time of my visit (seen on HD at 12:00PM); not tolerating fluid removal so ultrafiltration is currently off; remains intubated and on mechanical ventilation as well as vasopressor therapy. Exam Narrative: General: WD/WN female intubated and on mechanical ventilaltion. Heart: normal S1 and S2; no rub Lungs: coarse breath sounds bilaterally Abdomen: soft, nontender, nondistended, positive bowel sounds Extremities: 1+ edema noted Skin: no rash Objective Data Vital Signs Vital Signs: Vital Signs Temp Pulse Resp BP Pulse Ox O2 Del Method FiO2 09/11/22 12:00 97 Mechanical Ventilation 40 09/11/22 12:42 96 24 H 09/11/22 12:41 96 24 H 09/11/22 12:39 96 107/50 L 09/11/22 12:00 40 09/11/22 12:00 98.9 F 98 24 H 107/50 L 99 09/11/22 12:00 97 09/11/22 11:55 98 99 Mechanical Ventilation 50 09/11/22 10:00 99 09/11/22 10:05 98 18 09/11/22 10:04 98 18 09/11/22 10:00 98.4 F 98 105/44 L 91 09/11/22 09:41 104 H 80/36 L 09/11/22 09:38 94 96/42 L 09/11/22 12:45 96 111/48 L 09/11/22 12:30 96 111/48 L 09/11/22 12:15 95 108/46 L 09/11/22 12:00 100 117/50 L 09/11/22 11:45 96 109/49 L 09/11/22 11:30 98 104/47 L 09/11/22 11:15 97 101/45 L
[2022-09-11 12:29] LABS: Glucose Point of Care 135 mg/dl (65-105)
[2022-09-11 16:07] LABS: Glucose Point of Care 210 mg/dl (65-105)
[2022-09-11] MEDS: NOREPINEPHRINE 8 MG/D5W 250 ML 8 MG/250 ML BAG 33.75 MG IV CONT (17:29)
[2022-09-11] MEDS: FENTANYL 2,500MCG/NS250ML(*CRX 2,500 MCG/250 ML BAG IV CONT (17:33)
--- NOTE | 2022-09-25 13:48 | PM.TDS ---
Transfer Discharge Sum: Prov Provider Date of admission: 08/27/22 19:02 Primary care physician: UNKNOWN,DOCTOR Admitting clinician: John Jha MD Consults: 08/29/22 Consult to Physician Routine Comment: spoke w office @ 0880 (, ) Consulting Provider: Sy Osborne callisthenics instructor/MD group to consult: Nephrology Reason for consultation: FARZANEH Has provider been notified: Yes 09/03/22 Consult to Physician Routine Comment: Consulting Provider: Porter Villareal Reason for consultation: respiratory failure Has provider been notified: Yes 09/08/22 08:01 Consult to Physician Routine Comment: spoke w office @ 0815 (, ) Consulting Provider: Paulette Gauthier callisthenics instructor/MD group to consult: SURGERY Reason for consultation: PERMACATH Has provider been notified: Yes Receiving physician/facility: [facility] DS: Admitting Diagnosis Discharge Date 09/11/22 Admitting Diagnosis Acute on chronic respiratory failure DS: Discharge Diagnosis Discharge Diagnosis (1) Shock: Code(s): R57.9 - Shock, unspecified Status: Acute (2) Sepsis: Code(s): A41.9 - Sepsis, unspecified organism Status: Acute (3) Bacteremia: Code(s): R78.81 - Bacteremia Status: Acute (4) Acute on chronic respiratory failure with hypoxia and hypercapnia: Code(s): J96.21 - Acute and chronic respiratory failure with hypoxia; J96.22 - Acute and chronic respiratory failure with hypercapnia Status: Acute (5) Acute kidney injury: Code(s): N17.9 - Acute kidney failure, unspecified Status: Acute (6) Chronic obstructive pulmonary disease: Code(s): J44.9 - Chronic obstructive pulmonary disease, unspecified Status: Acute (7) Congestive heart failure: Code(s): I50.9 - Heart failure, unspecified Status: Acute (8) Chronic anticoagulation: 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 Status: Acute (9) Gastroesophageal reflux disease: Code(s): K21.9 - Gastro-esophageal reflux disease without esophagitis Status: Acute Transfer Discharge Sum: Med Medications Active and Home Medications: Home Medications amitriptyline 10 mg tablet 10 mg PO HS 09/07/21 [History Confirmed 08/27/22] apixaban 2.5 mg tablet (Eliquis) 2.5 mg PO BID 09/07/21 [History Confirmed 08/27/22] escitalopram oxalate 20 mg tablet 20 mg PO DAILY 09/07/21 [History Confirmed 08/27/22] furosemide 40 mg tablet 40 mg PO DAILY 09/07/21 [History Confirmed 08/27/22] hydroxyzine HCl 25 mg tablet 25 mg PO TID PRN Anxiety 09/07/21 [History Confirmed 08/27/22] montelukast 10 mg tablet 10 mg PO DAILY 09/07/21 [History Confirmed 08/27/22] omeprazole 40 mg capsule,delayed release 40 mg PO DAILY 09/07/21 [History Confirmed 08/27/22] ropinirole 4 mg tablet 4 mg PO HS 09/07/21 [History Confirmed 08/27/22] spironolactone 25 mg tablet 25 mg PO DAILY 09/07/21 [History Confirmed 08/27/22] trazodone 50 mg tablet 50 mg PO HS 09/07/21 [History Confirmed 08/27/22] albuterol sulfate 90 mcg/actuation aerosol inhaler (Proventil HFA) 2 puff inhalation QID PRN shortness of breath #1 BA unit 09/16/21 [Rx Confirmed 08/27/22] Transfer Discharge Sum: Hosp Hospital Course Hospital course: Cony Shin is a 62 year old female with past medical history of chronic obstructive pulmonary disease, chronic respiratory failure with hypoxia and hypercarbia, coronary artery disease, congestive heart failure, and history of stroke who was directly admitted to the ICU from the emergency department at [facility] for further treatment and evaluation of acute on chronic respiratory failure on 08/28/22. She she presented there with hypoxia, respiratory distress and confusion.? ABG showed hypercarbic respiratory failure.? BiPAP was not attempted but ABG got worse and patient had to be intubated.? Post intubation patient was transferred to [facility] for [facility]
== END 2022-09-11 18:15 | disposition short-term general hospital (02) | DRG 870 ==
PROVIDERS: Internal Medicine; Internal Medicine Nephrology; Nurse Practitioner; Physician Assistant; Surgery; Admitting Provider Internal Medicine; Visit Provider Internal Medicine
PROC: 0JH63XZ Insertion of Tunneled Vascular Access Device into Chest Subcutaneous Tissue and Fascia, Percutaneous Approach (ICD-10-PCS; CPT 36908; principal; 2022-09-08 13:30)
DX: A41.9 Sepsis, unspecified organism (principal); G92.8 Other toxic encephalopathy; J96.21 Acute and chronic respiratory failure with hypoxia; J96.22 Acute and chronic respiratory failure with hypercapnia; J69.0 Pneumonitis due to inhalation of food and vomit; R65.21 Severe sepsis with septic shock; T82.49XA Other complication of vascular dialysis catheter, initial encounter; N39.0 Urinary tract infection, site not specified; Z79.01 Long term (current) use of anticoagulants; I50.9 Heart failure, unspecified; K21.9 Gastro-esophageal reflux disease without esophagitis; R73.9 Hyperglycemia, unspecified; I25.10 Atherosclerotic heart disease of native coronary artery without angina pectoris; B96.1 Klebsiella pneumoniae [K. pneumoniae] as the cause of diseases classified elsewhere; Z20.822 Contact with and (suspected) exposure to COVID-19; Z86.73 Personal history of transient ischemic attack (TIA), and cerebral infarction without residual deficits; Z79.899 Other long term (current) drug therapy; Z79.51 Long term (current) use of inhaled steroids; Z82.49 Family history of ischemic heart disease and other diseases of the circulatory system; Z82.3 Family history of stroke
CPT/HCPCS: 36415; 36600; 70450; 70486; 71045; 71250; 74176; 76775; 77001; 80048; 80053; 80202; 80307; 81001; 82375; 82550; 82570; 82805; 82948; 83036; 83050; 83605; 83735; 84100; 84300; 84478; 84484; 85025; 85027; 85610; 85730; 86704; 86706; 86738; 87040; 87070; 87075; 87086; 87147; 87181; 87186; 87205; 87340; 87449; 87493; 87899; 92610; 93005; 93308; 93970; 94002; 94003; 94640; 94660; C1752; A9270; C1750; C1751; C8924; C8929; C9113; G0257; J0131; J0171; J0282; J0360; J0456; J0612; J0696; J0743; J1100; J1644; J1815; J1940; J2250; J2405; J2543; J2704; J2930; J2997; J3010; J3370; J7030; J7040; J7060; P9045; P9047; Q5105; Q9957

== ENCOUNTER 2022-10-08 14:17 | Observation (INO) | payer OTHER, SELFPAY ==
[2022-10-08] VITALS (56 sets, daily range): BP systolic 86–139; BP diastolic 51–82; PULSE 72–161; RESP 11–26; TEMP 37.5; O2SAT 92–100
--- NOTE | ~2022-10-08 | XR_ITS ---
EXAMINATION: XR chest 2V DATE: 10/08/2022 14:56 INDICATION: Shortness of breath TECHNIQUE: AP and lateral views of the chest are obtained. COMPARISON: 09/11/2022 FINDINGS: Cardiomegaly is noted. There is a mild diffuse interstitial pattern. There are small pleura l effusions. No pneumothorax. There are bibasilar airspace opacities. There is mild thoracic spondylo sis. IMPRESSION: 1. Cardiomegaly with mild pulmonary edema. 2. Small pleural effusions with associated bibasilar airspace opacities, atelectasis versus pneumonia . Reviewed, dictated and finalized at location B. RNAL COMMUNICATIONS MANAGER IMPRESSION: 1. Cardiomegaly with mild pulmonary edema. 2. Small pleural effusions with associated bibasilar airspace opacities, atelec tasis versus pneumonia.
--- NOTE | 2022-10-08 14:32 | ECG_ITS ---
Measurements Intervals [place] Rate: 96 P: 40 IA: 140 QRS: 22 QRSD: 112 T: 14 QT: 326 QTc: 413 Interpretive Statements SINUS RHYTHM WITH OCCASIONAL SUPRAVENTRICULAR PREMATURE COMPLEXES INCOMPLETE RIGHT BUNDLE BRANCH BLOCK [90+ ms QRS DURATION, TERMINAL R IN V1/V2, 40+ ms S IN I/aVL/V4/V5/V6] COMPARED TO ECG 09/07/2022 09:51:15 SINUS RHYTHM NOW PRESENT Electronically Signed On 10-08-2022 15:39:33 APPRENTICE PATTERN MAKER by Bg Chaparro M.D.
[2022-10-08 14:49] LABS: Basophils Percent Auto 0.4 % (0.2-1.2); Eosinophils Absolute Auto 0.2 K/mm3 (0-0.3); Eosinophils Percent Auto 2.4 % (0-4.4); Hematocrit 28.4 % (37.0-47.0); Immature Granulocyte Absolute 0.16 K/mm3 (0.00-0.031); Lymphocytes Absolute Auto 2.45 K/mm3 (0.9-3.2); Lymphocytes Percent Auto 30.4 % (18.3-44.2); Mean Corpuscular HGB Conc 28.2 g/dl (32-36); Mean Corpuscular Volume 95.9 fl (80-100); Mean Platelet Volume 8.7 fl (7.4-10.4); Monocytes Absolute Auto 0.7 K/mm3 (0.1-0.6); Monocytes Percent Auto 8.8 % (2.6-8.5); Neutrophils Absolute Auto 4.5 K/mm3 (1.3-6.7); Platelet Count Result 307 k/mm3 (150-375); Red Blood Count 2.96 M/mm3 (4.2-5.4); Red Cell Distribution Width 14.8 % (11.5-14.5); White Blood Count 8.1 K/mm3 (4.5-10.0)
[2022-10-08 15:04] LABS: Alanine Aminotransferase 23 U/L (6-35); Albumin Level 2.9 g/dL (3.5-5.1); Alkaline Phosphatase 150 U/L (38-126); Aspartate Amino Transferase 26 U/L (14-36); Bilirubin,Total 0.3 mg/dL (0.2-1.3); Blood Urea Nitrogen 13 mg/dL (7-17); Calcium 8.1 mg/dL (8.4-10.2); Carbon Dioxide > 40 mmol/L (22-30); Chloride 97 mmol/L (98-107); Estimated CRCL calculation 53 ml/min; Estimated Glomerular Filt Rate 45; Glucose 123 mg/dL (65-110); Potassium 4.1 mmol/L (3.4-5.0); Sodium 138 mmol/L (137-145)
[2022-10-08 15:15] LABS: Platelet Estimate Adequate (Adequate)
[2022-10-08 15:16] LABS: Anisocytosis 1+ (NORMAL); Hypochromasia 1+ (NORMAL); Schistocytes None Seen (NORMAL)
[2022-10-08] MEDS: ALBUTEROL SULFATE NEB 2.5 MG/3 ML INH INHALATION (15:43)
[2022-10-08] MEDS: LORazepam (*CRX) 0.5 MG TABLET PO (15:49)
--- NOTE | 2022-10-08 16:52 | ED.GENADULT ---
HPI - General Adult General Chief complaint: Shortness of Breath/Dyspnea Stated complaint: SOB Time Seen by Provider: 10/08/22 14:23 History of Present Illness HPI narrative: 62 old female presented to the emergency department for evaluation of hypoxia. Patient was at a skilled facility for rehab when they state they are doing the morning vitals rounds and found her to be hypoxic on 3 L. Patient states that she supposed be on 5 L of oxygen by nasal cannula. Patient states that she started on 3 L and 2009 but that her physicians have slowly bumped her up to 5 L and she is was to be at 5 L at all times. Patient had a prolonged illness and ultimately ended up getting temporary dialysis and went to the skilled facility for rehab. She states that the [facility] facility told her that 3 L was good enough. Patient was treated with a breathing treatment and placed on 4 L and she is saturating in mid 90s. Upon arrival to the emergency department patient states she has no chest pain or shortness of breath. Related Data Home Medications Medication Instructions Recorded Confirmed amitriptyline 10 mg tablet 10 mg PO HS 09/07/21 08/27/22 apixaban 2.5 mg tablet (Eliquis) 2.5 mg PO BID 09/07/21 08/27/22 escitalopram oxalate 20 mg tablet 20 mg PO DAILY 09/07/21 08/27/22 furosemide 40 mg tablet 40 mg PO DAILY 09/07/21 08/27/22 hydroxyzine HCl 25 mg tablet 25 mg PO TID PRN Anxiety 09/07/21 08/27/22 montelukast 10 mg tablet 10 mg PO DAILY 09/07/21 08/27/22 omeprazole 40 mg capsule,delayed 40 mg PO DAILY 09/07/21 08/27/22 release ropinirole 4 mg tablet 4 mg PO HS 09/07/21 08/27/22 spironolactone 25 mg tablet 25 mg PO DAILY 09/07/21 08/27/22 trazodone 50 mg tablet 50 mg PO HS 09/07/21 08/27/22 Allergies Allergy/AdvReac Type Severity Reaction Status Date / Time No Known Drug Allergies Allergy Verified 09/07/21 09:22 Review of Systems Review of Systems: CONSTITUTIONAL: Denies fever, chills, or sweats. EYES: Denies visual changes, redness, or discharge. ENT: Denies rhinorrhea, congestion, sore throat, or otalgia. CARDIOVASCULAR: Denies chest pain, palpitations, or edema. RESPIRATORY: See HPI GASTROINTESTINAL: Denies abdominal pain, nausea, vomiting, or diarrhea. GENITOURINARY: Denies dysuria or hematuria. SKIN: Denies rash or itching. MUSCULOSKELETAL: Denies back pain, joint pain, or myalgia. NEUROLOGIC: Denies headache, numbness, or weakness. PSYCHIATRIC: Denies anxiety or depression. [facility] Past Medical History Medical History (Updated 10/08/22 @ 19:32 by Hosea Weaver MD) Cerebrovascular accident Chronic anticoagulation Chronic obstructive pulmonary disease Chronic respiratory failure with hypoxia and hypercapnia Congestive heart failure Diastolic dysfunction Echo in August 2022 showed normal LV function with an EF of 60 to 65%, grade 1 diastolic dysfunction, moderate enlarged right ventricular chamber, normal right ventricular systolic function, moderate tricuspid valve regurgitation, and pulmonary hypertension with an estimated PASP of 59 mmHg. Gastroesophageal reflux disease Jugular vein thrombosis Surgical History Surgical History Surgical history unknown Family History Family History Father Hypertension Acute myocardial infarction Sibling Hypertension Mother Family history of heart disease in male family member before age 55 Brother Acute myocardial infarction Father Acute myocardial infarction Other Cerebrovascular accident Family history of cardiovascular disease Social History Social History (Updated 10/08/22 @ 18:56 by Marielena Alvarez PA-C) Social History: Surrogate medical decision maker: Shabbir or Braeden Shin, children. Code status: Full code. Smoking packs per day: 1 Smoking cigarettes per day: 20.0 Smoking status: Unknown if ever smoked Tobacco type: cigare
--- NOTE | 2022-10-08 17:01 | ECG_ITS ---
Measurements Intervals [place] Rate: 142 P: -85 OK: 113 QRS: 25 QRSD: 87 T: 24 QT: 295 QTc: 454 Interpretive Statements ATRIAL FLUTTER WITH 2-1 BLOCK POSSIBLE RIGHT VENTRICULAR CONDUCTION DELAY [RSR (QR) IN V1/V2] ST DEPRESSION, CONSIDER SUBENDOCARDIAL INJURY [0.2+ mV ST DEPRESSION] COMPARED TO ECG 10/08/2022 14:35:08 THE PATIENT IS NOW IN ATRIAL FLUTTER Electronically Signed On 10-08-2022 19:50:38 SPACE SYSTEMS OPERATIONS SUPERINTENDENT by Zaira Galarza M.D.
--- NOTE | 2022-10-08 17:05 | ECG_ITS ---
Measurements Intervals [place] Rate: 149 P: 252 [place]: 94 QRS: 9 QRSD: 102 T: -21 QT: 226 QTc: 356 Interpretive Statements SUPRAVENTRICULAR TACHYCARDIA, POSSIBLE ATRIAL FLUTTER INCOMPLETE RIGHT BUNDLE BRANCH BLOCK [90+ ms QRS DURATION, TERMINAL R IN V1/V2, 40+ ms S IN I/aVL/V4/V5/V6] NONSPECIFIC ST & T-WAVE ABNORMALITY ABNORMAL RHYTHM ECG COMPARED TO ECG 10/08/2022 14:35:08 SUPRAVENTRICULAR TACHYCARDIA NOW PRESENT Electronically Signed On 10-09-2022 14:50:07 WEBMETHODS ARCHITECT by Bg Chaparro M.D.
[2022-10-08] MEDS: dilTIAZem HCl INJ 25 MG/5 ML VIAL 10 MG IV PUSH (17:11)
--- NOTE | 2022-10-08 17:12 | PC.NURSE ---
Addendum entered by Fantasma Candelario RN 10/08/22 17:12: pt dc cancelled d/t increased HR, DR MORNA aware ekg done diltiazem 10mg ivp x1 edp to order Lopressor 5 mg ivp Original Note: pt dc cancelled d/t increased R
[2022-10-08] MEDS: METOPROLOL TARTRATE INJ 5 MG/5 ML VIAL IV PUSH (17:16)
--- NOTE | 2022-10-08 17:41 | PC.NURSE ---
Dr. Weaver at bedside, pacer pads in place, 6mg adenosine given at 1735, and heart rate slowed down to 132 bpm and returned to 146bpm. 12mg adenosine given at 1740 and no change in heart race.
[2022-10-08] MEDS: ADENOSINE IV SOLN 6 MG/2 ML VIAL 12 MG IV PUSH (17:43)
[2022-10-08] MEDS: ADENOSINE IV SOLN 6 MG/2 ML VIAL IV PUSH (17:43)
[2022-10-08] MEDS: AMIODARONE 150 MG/D5W 100 ML 150 MG/100 ML BAG 600 MG IV CONT (17:58)
[2022-10-08] MEDS: AMIODARONE 360 MG/D5W 200 ML 360 MG/200 ML BAG 33.33 MG IV CONT (18:09)
--- NOTE | 2022-10-08 18:10 | ECG_ITS ---
Measurements Intervals [place] Rate: 79 P: 32 ID: 142 QRS: 21 QRSD: 113 T: 24 QT: 346 QTc: 399 Interpretive Statements SINUS RHYTHM WITH OCCASIONAL SUPRAVENTRICULAR PREMATURE COMPLEXES INCOMPLETE RIGHT BUNDLE BRANCH BLOCK [90+ ms QRS DURATION, TERMINAL R IN V1/V2, 40+ ms S IN I/aVL/V4/V5/V6] NONSPECIFIC ST & T-WAVE ABNORMALITY ABNORMAL ECG COMPARED TO ECG 10/08/2022 17:40:02 SINUS RHYTHM NOW PRESENT INCOMPLETE RIGHT BUNDLE-BRANCH BLOCK NOW PRESENT T-WAVE ABNORMALITY NOW PRESENT Electronically Signed On 10-14-2022 14:05:57 ONLINE MARKETING SPECIALIST by Benito Altamirano M.D.
[2022-10-08 18:23] LABS: Influenza A QL RT-PCR Negative (Negative); Influenza B QL RT-PCR Negative (Negative); SARS-CoV-2 RNA PCR Negative
[2022-10-08] MEDS: SODIUM CHLORIDE 0.9% IV 1,000 ML 125 ML IV CONT (18:31)
--- NOTE | 2022-10-08 18:45 | PM.IMHP ---
H&P: HPI History of Present Illness Date/Time: 10/08/22 18:45 Chief Complaint: Shortness of breath. Narrative: This is a 62-year-old female with chronic obstructive pulmonary disease, chronic respiratory failure with hypoxia and hypercarbia, coronary artery disease, congestive heart failure, and history of stroke who came to the emergency department for evaluation of shortness of breath. She is known to myself and the hospitalist service from a recent admission early last month with acute on chronic respiratory failure and pneumonia requiring endotracheal intubation. She went into acute renal failure during the stay and required dialysis, later developing Staph epidermis bacteremia thought to be secondary to a tunneled dialysis catheter which was removed. She was ultimately transferred to a tertiary care facility for CRRT. She was discharged to a senior care facility about 2 weeks ago where she remains. When she got there she was not able to walk and is now up with a walker with some assistance. She is hopeful that she will be able to go home following this hospitalization. In any event she was complaining of shortness of breath this morning and was found hypoxic in the 70s on 3 L. Patient tells me that she uses 5 L while at home and she states that she was not feeling short of breath at all this morning. She was given a nebulizer treatment in route to the hospital and her SpO2 has been maintaining in the mid to upper 90s on 5 L. Chest x-ray showed cardiomegaly with mild pulmonary edema and small pleural effusions with associated bibasilar airspace opacities (atelectasis versus pneumonia). She otherwise appeared euvolemic, felt fine, and was going to be discharged. While the paperwork was being processed, she went into atrial flutter with rapid ventricular response which did not respond to diltiazem or metoprolol. Adenosine x2 slowed her down briefly. She has since been started on amiodarone drip with some improvement in her rate and she is being admitted in this setting. She has only mild sensations of racing heart and she overtly denies chest pain and pleuritic pain. She has also not feeling short of breath and denies nausea, vomiting, and sweats. She goes on to say that is not unusual for her to have palpitations though CT she has ever been diagnosed with atrial fibrillation or flutter. Review of Systems Review of Systems: Twelve systems were reviewed and are negative except for as per HPI. PMFSH Past Medical History Medical History (Updated 10/08/22 @ 21:58 by Marielena Alvarez PA-C) Cerebrovascular accident Chronic anticoagulation Chronic obstructive pulmonary disease Chronic respiratory failure with hypoxia and hypercapnia Congestive heart failure Diastolic dysfunction Echo in August 2022 showed normal LV function with an EF of 60 to 65%, grade 1 diastolic dysfunction, moderate enlarged right ventricular chamber, normal right ventricular systolic function, moderate tricuspid valve regurgitation, and pulmonary hypertension with an estimated PASP of 59 mmHg. Gastroesophageal reflux disease Jugular vein thrombosis Renal failure Requiring temporary dialysis and CRRT in 09/15. Staphylococcus epidermidis bacteremia (08/2022) Surgical History Surgical History (Updated 10/08/22 @ 21:53 by Marielena Alvarez PA-C) History of 3 sections History of cholecystectomy History of left knee replacement Family History Family History Father Hypertension Acute myocardial infarction Sibling Hypertension Mother Family history of heart disease in male family member before age 55 Brother Acute myocardial infarction Father Acute myocardial infarction Other Cerebrovascular accident Family history of cardiovascular disease Social History Social History (Updated 10/08/22 @ 21:54 by Marielena Alvarez PA-C) Social History: Surrogate medical decision maker: Sai Fleming
[2022-10-09] VITALS (25 sets, daily range): BP systolic 120–157; BP diastolic 57–79; PULSE 67–88; RESP 12–24; TEMP 36.8–37; O2SAT 94–100
[2022-10-09 00:21] LABS: Hematocrit 27.5 % (37.0-47.0); Hemoglobin 7.8 g/dL (12.0-15.0)
[2022-10-09] MEDS: AMIODARONE 360 MG/D5W 200 ML 360 MG/200 ML BAG 33.3 MG IV CONT (00:35)
[2022-10-09 01:05] LABS: NT Pro B Type Natriuretic Pept 2790 pg/mL (19.9-100); Troponin I 0.017 ng/mL (0.000-0.034)
[2022-10-09 01:56] LABS: Iron 16 ug/dL (37-170)
[2022-10-09 02:06] LABS: Percent Iron Saturation 6 % (20-50)
[2022-10-09] MEDS: AMIODARONE 360 MG/D5W 200 ML 360 MG/200 ML BAG 16.66 MG IV CONT (05:26)
[2022-10-09 05:54] LABS: Folic Acid 5.3 ng/mL (2.76->20)
--- NOTE | 2022-10-09 07:30 | PC.NURSE ---
Breakfast tray ordered for pt and had sent to IMU room.
--- NOTE | 2022-10-09 08:00 | ADMGEN ---
This patient, Cony Shin, was admitted to IMU Room 204-01. Patient/family oriented to hospital policies and general routines including ID bracelet, bed and alarms, visiting hours, pain management, procedures, bathroom and other care routines, personal items, smoking policy, room service/diet, and visiting hours. Information on how to activate the Rapid Response Team has been discussed. Patient/Family are encouraged to report perceived risks to care and to ask questions if they do not understand what they are told or what they should do.
--- NOTE | 2022-10-09 13:28 | PCOTNOTE ---
Attempted to see patient for OT evaluation. She adamantly declined any/all activity due to being too tired . Will continue to attempt. RN updated.
--- NOTE | 2022-10-09 13:32 | PM.CNCAR ---
Assessment and Plan Assessment and plan (1) Atrial flutter with rapid ventricular response: Code(s): I48.92 - Unspecified atrial flutter Status: Acute Assessment and Plan: Episode of atrial flutter with RVR in the ER, converted to sinus rhythm on amiodarone and remains in sinus rhythm now. Will start low dose beta polina. She is already on systemic anticoagulation with apixaban 2.5mg b.i.d. This should be increased to 5mg b.i.d. for therapeutic dosing. OK for discharge from a cardiac standpoint with close follow up in our office which I will arrange. (2) Diastolic dysfunction: Code(s): I51.89 - Other ill-defined heart diseases Status: Acute Assessment and Plan: She has HFpEF. Some lower extremity swelling and pulmonary edema on chest xray. Was previously on diuretic but states she was taken off of it during her last hospitalization (presumably because of her FARZANEH requiring dialysis). Recommend 40mg p.o. lasix daily. We can further optimize her medical therapy for HFpEF as an outpatient. History of Present Illness History of Present Illness Consult date/time: 10/09/22 13:32 Requesting physician: Hosea Weaver MD Consult reason: Other (Atrial flutter ) Reason For Visit: Atrial Flutter Narrative: Cony Shin is a 62 year old female with a past medical history of coronary artery disease, congestive heart failure, and chronic obstructive pulmonary disease. This is a patient who presented to the emergency department from her intermediate facility because of low oxygen saturations noted on a routine vital signs check. She denies any complaint of significant shortness of breath at that time. Upon evaluation in the emergency department she was noted to be hypoxic and had an SpO2 in the 70's. She was feeling well after receiving a nebulizer treatment but it was noted on telemetry that she was in atrial flutter with rapid ventricular response. She was treated with diltiazem, metoprolol, adenosine, and ultimately was placed on amiodarone. She converted to sinus rhythm and remains in sinus rhythm now. She does report a history of arrhythmias and is on eliquis for stroke prophylaxis. She also reports a history of congestive heart failure and has been having some swelling because she was taken off of any diuretic during her last hospitalization. Review of Systems Constitutional: Constitutional: Denies chills, Denies fever(s), Denies headache(s) and Denies malaise Eyes: Eyes: Denies change in vision ENT: Reports Normal hearing present, Denies dizziness, Denies headache(s) and Denies hearing loss Cardiovascular: Cardiovascular: Denies chest pain, Denies chest pain at rest, Denies chest pain with activity, Denies syncope, Denies leg edema, Denies palpitations, Denies dyspnea and Denies dyspnea on exertion Respiratory: Respiratory: Denies cough, Denies dyspnea, Denies dyspnea on exertion and Denies wheezing Gastrointestinal: Gastrointestinal: Denies abdominal pain, Denies constipation and Denies diarrhea Genitourinary: Genitourinary: Denies hematuria and Denies dysuria Musculoskeletal: Musculoskeletal: Denies myalgias, Denies arthralgias and Denies muscle cramps Integumentary/Breasts: Skin/Breast: Denies wounds Neurologic: Reports Normal hearing present, Denies confusion, Denies dizziness, Denies syncope and Denies headache(s) Psychiatric: Psychiatric: Denies anxiety, Denies confusion and Denies depression Endocrine: Endocrine: Denies cold intolerance, Denies flushing, Denies heat intolerance and Denies palpitations Hematologic/Lymphatic: Hematologic/Lymphatic: Denies easy bleeding and Denies easy bruising Allergic/Immunologic: Allergic/Immunologic: Denies wheezing PMFSH Past Medical History Medical History Cerebrovascular accident Chronic anticoagulation Chronic obstructive pulmonary disease Chronic respiratory failure with hyp
--- NOTE | 2022-10-09 14:53 | PM.DS ---
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 Patient states that she is typically on 5 L at home and reports that she was not all feeling short of breath this morning. Workup today for showed a normocytic anemia with an H&H lower than what she had been running with her recent hospitalization. Creatinine continues to improve. Chest x-ray shows mild pulmonary edema and small pleural effusions as well as atelectasis, pneumonia seems unlikely by history. Patient states that she has not been started back on furosemide since her acute kidney injury with her most recent hospitalization. Pulmonary embolism seems unlikely as she is on Eliquis. Prior to her being discharged she went into atrial flutter with rapid ventricular response which did not respond to diltiazem or metoprolol. She was put on an amiodarone drip with significant rate improvement. Time Spent with Patient Time attestation: Total time spent providing and/or coordinating discharge services: DS: Data Data Completed and Pending Labs on day of discharge: Labs from last 24 hours 10/09/22 10/09/22 10/09/22 00:00 00:00 00:00 WBC RBC Hgb 7.8 L Hct 27.5 L MCV MCH MCHC RDW Plt Count MPV Immature Gran % (Auto) Neut % (Auto) Lymph % (Auto) [place] % (Auto) Eos % (Auto) Baso % (Auto) Lymph # (Auto) [place] # (Auto) Eos # (Auto) Baso # (Auto) Abs Immat Gran (auto) Absolute Neuts (auto) Absolute Nucleated RBC Nucleated RBC % Platelet Estimate Hypochromasia Anisocytosis Schistocytes Sodium Potassium Chloride Carbon Dioxide Anion Gap BUN Creatinine Estim Creat Clear Calc Estimated GFR Glucose Calcium Iron TIBC % Saturation Ferritin Total Bilirubin AST ALT Alkaline Phosphatase Troponin I 0.017 NT-Pro-B Natriuret Pep 2790 H Total Protein Albumin Vitamin B12 534.0 Folate 5.3 TSH (Reflex) Influenza A (RT-PCR) Influenza B (RT-PCR) SARS-CoV-2 RNA (RT-PCR) 10/09/22 10/08/22 10/08/22 00:00 17:20 14:39 WBC RBC Hgb Hct MCV MCH MCHC RDW Plt Count MPV Immature Gran % (Auto) Neut % (Auto) Lymph % (Auto) [place] % (Auto) Eos % (Auto) Baso % (Auto) Lymph # (Auto) [place] # (Auto) Eos # (Auto) Baso # (Auto) Abs Immat Gran (auto) Absolute Neuts (auto) Absolute Nucleated RBC Nucleated RBC % Platelet Estimate Hypochromasia Anisocytosis Schistocytes Sodium 138 Potassium 4.1 Chloride 97 L Carbon Dioxide > 40 H Anion Gap BUN 13 D Creatinine 1.20 H Estim Creat Clear Calc 53 Estimated GFR 45 L Glucose 123 H Calcium 8.1 L Iron 16 L TIBC 284 % S[place]
--- NOTE | 2022-10-09 15:02 | PM.IMPN ---
Progress Note: A&P Assessment and Plan (1) Atrial flutter with rapid ventricular response: Code(s): I48.92 - Unspecified atrial flutter Status: Acute Assessment and Plan: Prior to her being discharged from the ED she went into atrial flutter with rapid ventricular response which did not respond to diltiazem or metoprolol. She was put on an amiodarone drip with significant rate improvement. cardiology consulted patient started on metoprolol 2.5 mg p.o. q12h patient being monitored by telemetry continue amiodarone drip for total of 24 hours blood pressure stable (2) Normocytic anemia: Code(s): D64.9 - Anemia, unspecified Status: Acute Assessment and Plan: patient with a history of anemia. Takes iron daily. monitor H&H iron studies revealed low iron, low % saturation, normal TIBC and normal ferritin continue ferrous sulfate 324 mg daily (3) Diastolic dysfunction: Code(s): I51.89 - Other ill-defined heart diseases Status: Acute Assessment and Plan: Patient with a history of diastolic dysfunction. Patient was on furosemide but this was discontinued due to recent hospitalization she had an FARZANEH. Chest x-ray revealed pulmonary edema, and small pleural effusions as well as atelectasis. I discussed case with aluminum pool installer and he stated that furosemide can be restarted. Patient not in acute exacerbation. Continue home medications (4) Renal failure: Code(s): N19 - Unspecified kidney failure Status: Acute Assessment and Plan: Patient recently hospitalized and had an FARZANEH. Patient's creatinine in improving from hospitalization. Discussed case with Nephrology. (5) Chronic anticoagulation: Code(s): Z79.01 - detention (current) use of anticoagulants Status: Acute Assessment and Plan: Patient on Eliquis. This was increased from 2.5 mg to 5 mg for stroke prophylaxis. (6) Chronic respiratory failure with hypoxia, on home oxygen therapy: Code(s): J96.11 - Chronic respiratory failure with hypoxia; Z99.81 - Dependence on supplemental oxygen Status: Acute Assessment and Plan: Not in acute exacerbation. Patient on home oxygen at 5 L and saturation is 100%. DuoNebs every 6 hours (7) Chronic obstructive pulmonary disease: Code(s): J44.9 - Chronic obstructive pulmonary disease, unspecified Status: Acute Assessment and Plan: see above Time Spent With Patient Time with patient: Greater than 35 minutes Subjective Date/time seen: 10/09/22 15:02 Interval history: patient lying in bed relaxing when I enter the room. Patient in a bad mood due to being hospitalized. Patient stated to me that she does not having any symptoms but due to her low oxygenation status she was sent to the ED. patient started crying when discussing being in the hospital because she did not want to miss her granddaughter's birthday libertarian this weekend. Patient denies chest pain, shortness a breath, heart palpitations, difficulty breathing, nausea, vomiting and fever. Review of Systems Review of Systems: All systems reviewed & are unremarkable except as noted in HPI and below Exam Narrative: GENERAL: Comfortable, no acute distress HENMT: moist mucous membranes EYES: EOM intact b/l NECK: no lymphadenopathy RESPIRATORY: distant breath sounds CARDIO: Distant heart sounds but regular rate and rhythm GI: soft, nontender, bowel sounds present SKIN: no rashes EXTREMITIES: no edema, redness or tenderness Objective Data Vital Signs Vital Signs: Vital Signs - 24 hr 10/08/22 15:35 10/08/22 15:43 10/08/22 15:54 Temperature Pulse Rate 98 91 95 Respiratory Rate 13 18 21 H Blood Pressure Pulse Oximetry 94 Oxygen Delivery Oxygen Flow Rate 10/08/22 17:11 10/08/22 17:16 10/08/22 17:20 Temperature Pulse Rate 154 H 150 H 148 H Respiratory Ra
[2022-10-09] MEDS: PANTOPRAZOLE 40 MG TABLET PO (17:14)
[2022-10-09] MEDS: SACCHAROMYCES BOULARDII 250 MG CAPSULE PO (17:14)
[2022-10-09] MEDS: APIXABAN 5 MG TABLET PO (17:14)
[2022-10-09] MEDS: VANCOMYCIN ORAL 125 MG/2.5 ML SYRUP PO ×2 (17:14→23:16)
[2022-10-09] MEDS: ALBUTEROL SULFATE NEB 2.5 MG/3 ML INH INHALATION (22:07)
[2022-10-09] MEDS: IPRATROPIUM BR 0.02% INH SOLN 0.5 MG/2.5 ML VIAL INHALATION (22:08)
[2022-10-09] MEDS: METOPROLOL TARTRATE 12.5 MG TABLET PO (22:14)
[2022-10-09] MEDS: traZODone HCL 50 MG TABLET PO (22:14)
[2022-10-09] MEDS: QUEtiapine FUMARATE 25 MG TABLET PO (22:14)
[2022-10-10] VITALS (17 sets, daily range): BP systolic 107–155; BP diastolic 54–75; PULSE 63–84; RESP 18–22; TEMP 36.2–36.8; O2SAT 97–99
[2022-10-10 05:00] LABS: Basophils Percent Auto 0.3 % (0.2-1.2); Eosinophils Absolute Auto 0.2 K/mm3 (0-0.3); Hematocrit 26.4 % (37.0-47.0); Hemoglobin 7.4 g/dL (12.0-15.0); Immature Granulocyte Absolute 0.06 K/mm3 (0.00-0.031); Immature Granulocyte Percent A 0.8 % (0-0.5); Lymphocytes Percent Auto 32.4 % (18.3-44.2); Mean Corpuscular Hemoglobin 27.1 pg (26-34); Mean Corpuscular Volume 96.7 fl (80-100); Mean Platelet Volume 8.5 fl (7.4-10.4); Monocytes Absolute Auto 0.7 K/mm3 (0.1-0.6); Monocytes Percent Auto 8.7 % (2.6-8.5); Neutrophils Absolute Auto 4.2 K/mm3 (1.3-6.7); Neutrophils Percent Auto 54.8 % (45.5-73.1); Platelet Count Result 239 k/mm3 (150-375); Red Blood Count 2.73 M/mm3 (4.2-5.4); Red Cell Distribution Width 14.9 % (11.5-14.5); White Blood Count 7.7 K/mm3 (4.5-10.0)
[2022-10-10 05:10] LABS: Alanine Aminotransferase 23 U/L (6-35); Albumin Level 2.8 g/dL (3.5-5.1); Alkaline Phosphatase 135 U/L (38-126); Aspartate Amino Transferase 30 U/L (14-36); Bilirubin,Total 0.3 mg/dL (0.2-1.3); Blood Urea Nitrogen 14 mg/dL (7-17); Calcium 8.6 mg/dL (8.4-10.2); Carbon Dioxide > 40 mmol/L (22-30); Chloride 98 mmol/L (98-107); Estimated CRCL calculation 49 ml/min; Estimated Glomerular Filt Rate 41; Glucose 81 mg/dL (65-110); Potassium 4.3 mmol/L (3.4-5.0); Sodium 138 mmol/L (137-145)
[2022-10-10 05:46] LABS: Platelet Estimate Adequate (Adequate)
[2022-10-10 05:47] LABS: Anisocytosis 1+ (NORMAL); Hypochromasia 2+ (NORMAL); Microcytosis 1+ (NORMAL)
[2022-10-10 05:48] LABS: Atypical Lymphocytes Present; Macrocytosis 1+ (NORMAL); Schistocytes None Seen (NORMAL); Spherocytes 1+ (NORMAL); Stomatocytes 1+ (NORMAL)
[2022-10-10] MEDS: VANCOMYCIN ORAL 125 MG/2.5 ML SYRUP PO ×2 (06:19→12:56)
[2022-10-10] MEDS: ALBUTEROL SULFATE NEB 2.5 MG/3 ML INH INHALATION ×2 (08:39→14:15)
[2022-10-10] MEDS: IPRATROPIUM BR 0.02% INH SOLN 0.5 MG/2.5 ML VIAL INHALATION ×2 (08:39→14:15)
--- NOTE | 2022-10-10 08:47 | PCOTNOTE ---
Attempted to see pt. for occupational therapy evaluation. Pt. with reparatory therapy at this time.
--- NOTE | 2022-10-10 08:57 | PM.IMPN ---
Progress Note: A&P Assessment and Plan (1) Atrial flutter with rapid ventricular response: Code(s): I48.92 - Unspecified atrial flutter Status: Acute Assessment and Plan: Prior to her being discharged from the ED she went into atrial flutter with rapid ventricular response which did not respond to diltiazem or metoprolol. She was put on an amiodarone drip with significant rate improvement. cardiology consulted patient started on metoprolol 2.5 mg p.o. q12h patient being monitored by telemetry continue amiodarone drip for total of 24 hours blood pressure stable (2) Normocytic anemia: Code(s): D64.9 - Anemia, unspecified Status: Acute Assessment and Plan: patient with a history of anemia. Takes iron daily. monitor H&H iron studies revealed low iron, low % saturation, normal TIBC and normal ferritin continue ferrous sulfate 324 mg daily (3) Diastolic dysfunction: Code(s): I51.89 - Other ill-defined heart diseases Status: Acute Assessment and Plan: Patient with a history of diastolic dysfunction. Patient was on furosemide but this was discontinued due to recent hospitalization she had an FARZANEH. Chest x-ray revealed pulmonary edema, and small pleural effusions as well as atelectasis. I discussed case with society reporter and he stated that furosemide can be restarted. Patient not in acute exacerbation. Continue home medications (4) Renal failure: Code(s): N19 - Unspecified kidney failure Status: Acute Assessment and Plan: Patient recently hospitalized and had an FARZANEH. Patient's creatinine in improving from hospitalization. Discussed case with Nephrology. 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 This was increased from 2.5 mg to 5 mg for stroke prophylaxis. (6) Chronic respiratory failure with hypoxia, on home oxygen therapy: Code(s): J96.11 - Chronic respiratory failure with hypoxia; Z99.81 - Dependence on supplemental oxygen Status: Acute Assessment and Plan: Not in acute exacerbation. Patient on home oxygen at 5 L and saturation is 100%. DuoNebs every 6 hours (7) Chronic obstructive pulmonary disease: Code(s): J44.9 - Chronic obstructive pulmonary disease, unspecified Status: Acute Assessment and Plan: see above (8) C. difficile colitis: Code(s): A04.72 - Enterocolitis due to Clostridium difficile, not specified as recurrent Status: Acute Assessment and Plan: Patient presented to the ED on vanc for C. diff. Will continue PO vanc here. Isolation due to patient continuing to have diarrhea. Subjective Date/time seen: 10/10/22 08:57 Objective Data Vital Signs Vital Signs: Vital Signs - 24 hr 10/09/22 12:00 10/09/22 10:00 10/09/22 12:00 Temperature 98.6 F Pulse Rate 78 80 88 Respiratory Rate 16 Blood Pressure 140/68 Pulse Oximetry 100 Oxygen Delivery Oxygen Flow Rate 10/09/22 12:11 10/09/22 14:00 10/09/22 16:00 Temperature 98.4 F Pulse Rate 85 78 Respiratory Rate 20 Blood Pressure 147/58 H Pulse Oximetry 100 97 Oxygen Delivery Nasal Cannula Oxygen Flow Rate 5 10/09/22 16:00 10/09/22 16:00 10/09/22 18:00 Temperature Pulse Rate 77 83 Respiratory Rate Blood Pressure Pulse Oximetry 100 Oxygen Delivery Nasal Cannula Oxygen Flow Rate 5 10/09/22 21:35 10/09/22 22:09 10/09/22 22:14 Temperature 98.3 F Pulse Rate 82 80 79 Respiratory Rate 20 18 Blood Pressure 157/74 H Pulse Oximetry 99 Oxygen Delivery Oxygen Flow Rate 10/09/22 20:00 10/09/22 20:00 10/09/22 22:00 Temperature Pulse Rate 79 79 67 Respiratory Rate 18 Blood Pressure
[2022-10-10] MEDS: SACCHAROMYCES BOULARDII 250 MG CAPSULE PO (09:33)
[2022-10-10] MEDS: CHOLECALCIFEROL 1,000 UNITS TABLET 4000 UNITS PO (09:34)
[2022-10-10] MEDS: APIXABAN 5 MG TABLET PO (09:34)
[2022-10-10] MEDS: FERROUS SULFATE 324 MG TABLET PO (09:34)
[2022-10-10] MEDS: FUROSEMIDE 20 MG TABLET PO (09:34)
[2022-10-10] MEDS: PANTOPRAZOLE 40 MG TABLET PO (09:34)
[2022-10-10] MEDS: ESCITALOPRAM OXALATE 10 MG TABLET 20 MG PO (09:34)
[2022-10-10] MEDS: MONTELUKAST SODIUM 10 MG TABLET PO (09:34)
[2022-10-10] MEDS: METOPROLOL TARTRATE 12.5 MG TABLET PO (09:35)
[2022-10-10 10:31] LABS: IFOB Positive Control Positive; Immunochemical Fecal Occult Bl Negative (N)
--- NOTE | 2022-10-10 12:22 | PM.PNCARD ---
Progress Note: A&P Assessment and Plan (1) Atrial flutter: Qualifiers: Atrial flutter type: unspecified Qualified Code(s): I48.92 - Unspecified atrial flutter Code(s): I48.92 - Unspecified atrial flutter Status: Acute Plan This is a 62-year-old lady who has been found to have atrial flutter. She is back in sinus rhythm after being given an amiodarone infusion and is now been put on metoprolol treatment. She is already anticoagulated because of DVT history. The patient's rhythm is stable I do not have any documentation of additional cardiac problems although she is a very poor historian. She is hopeful of being discharged to home if not today relatively soon. Her PCP is up in [place]. Told the patient that she can certainly follow up with our practice after discharge here at [facility] or choose a physician that sees patients up in [place] for her convenience. She is stable for discharge as my nurse practitioner indicated yesterday. I will transition her metoprolol to succinate for more dosing convenience for her. Zay Bridges MD [facility] Subjective Date/time seen: Date of service: 10/10/22 12:22 Interval history: Follow-up visit in this 62-year-old female with: Episode of atrial flutter with two-to-one conduction/RVR occurred upon admission here. She was treated with IV amiodarone restoring sinus rhythm. Patient had already been systemically anticoagulated with apixaban. Now on low-dose beta-polina and in sinus rhythm. Patient a feels well today offers no complaints and is hopeful of being discharged. Very poor historian regarding previous cardiovascular problems. Exam Const: General: comfortable and no acute distress Other: Obese somewhat anxious white female pleasant and cooperative no distress HENMT: Mouth: Yes moist mucous membranes Eyes: Sclera: sclerae normal Neck: Neck: supple Resp: Effort & Inspection: normal respiratory effort Auscultation: clear to auscultation bilaterally Other: No pulmonary rales or wheezing Cardio: Rate: regular rate Rhythm: regular rhythm GI: GI Palp: Yes Soft to palpation Auscultation: normal bowel sounds Skin: General skin exam: normal color Neuro: Other: Alert and oriented x3, poor historian Objective Data Vital Signs Vital Signs: Vital Signs - 24 hr 10/09/22 14:00 10/09/22 16:00 10/09/22 16:00 Temperature 36.9 C Pulse Rate 85 78 77 Respiratory Rate 20 Blood Pressure 147/58 H Pulse Oximetry 97 Oxygen Delivery Oxygen Flow Rate 10/09/22 16:00 10/09/22 18:00 10/09/22 21:35 Temperature 36.8 C Pulse Rate 83 82 Respiratory Rate 20 Blood Pressure 157/74 H Pulse Oximetry 100 99 Oxygen Delivery Nasal Cannula Oxygen Flow Rate 5 10/09/22 22:09 10/09/22 22:14 10/09/22 20:00 Temperature Pulse Rate 80 79 79 Respiratory Rate 18 18 Blood Pressure Pulse Oximetry 99 Oxygen Delivery Nasal Cannula Oxygen Flow Rate 5 10/09/22 20:00 10/09/22 22:00 10/10/22 00:18 Temperature 36.8 C Pulse Rate 79 67 79 Respiratory Rate 20 Blood Pressure 149/72 H Pulse Oximetry 98 Oxygen Delivery Oxygen Flow Rate 10/10/22 00:00 10/10/22 00:00 10/10/22 04:16 Temperature 36.8 C Pulse Rate 79 79 63 Respiratory Rate 20 20 Blood Pressure 107/54 L Pulse Oximetry 98 98 Oxygen Delivery Nasal Cannula Oxygen Flow Rate 5 10/10/22 02:00 10/10/22 04:00 10/10/22 04:00 Temperature Pulse Rate 70 70 63 Respiratory Rate 20 Blood Pressure Pulse Oximetry 98 Oxygen Delivery Nasal Cannula Oxygen Flow Rate 5 10/10/22 06:00 10/10/22 08:40 10/10/22 09:02 Temperature Pulse Rate 76 84 84 Respiratory Rate 20 20 Blood Pressure Pulse Oximetry Oxygen Delivery Oxygen Flow Rate 10/10/22 08:00 10/10/22 09:35 10/10/22 08:00 Temperature 36.4 C Pulse Rate 71 78 71 Respiratory Rate 22 H Blood Pressure 121/54 L Pulse Oximetry 99 Oxy
--- NOTE | 2022-10-10 15:20 | PM.DS ---
DS: Admitting Diagnosis Discharge Date 10/10/22 Admitting Diagnosis A flutter RVR DS: Discharge Diagnosis Discharge Diagnosis (1) Atrial flutter with rapid ventricular response: Code(s): I48.92 - Unspecified atrial flutter Status: Acute Assessment and Plan: Prior to her being discharged from the ED she went into atrial flutter with rapid ventricular response which did not respond to diltiazem or metoprolol. She was put on an amiodarone drip with significant rate improvement. cardiology consulted patient started on metoprolol 2.5 mg p.o. q12h patient being monitored by telemetry continue amiodarone drip for total of 24 hours Then discontinue. blood pressure stable (2) Normocytic anemia: Code(s): D64.9 - Anemia, unspecified Status: Acute Assessment and Plan: patient with a history of anemia. Takes iron daily. monitor H&H iron studies revealed low iron, low % saturation, normal TIBC and normal ferritin continue ferrous sulfate 324 mg daily (3) Diastolic dysfunction: Code(s): I51.89 - Other ill-defined heart diseases Status: Acute Assessment and Plan: Patient with a history of diastolic dysfunction. Patient was on furosemide but this was discontinued due to recent hospitalization she had an FARZANEH. Chest x-ray revealed pulmonary edema, and small pleural effusions as well as atelectasis. I discussed case with process improvement analyst and he stated that furosemide can be restarted. Furosemide prescribed 20 mg twice a day. Patient not in acute exacerbation. Continue home medications (4) Renal failure: Code(s): N19 - Unspecified kidney failure Status: Acute Assessment and Plan: Patient recently hospitalized and had an FARZANEH. Patient's creatinine in improving from hospitalization. Discussed case with Nephrology. Nephrology okay with patient being restarted on Lasix (5) Chronic anticoagulation: Code(s): Z79.01 - [facility] (current) use of anticoagulants Status: Acute Assessment and Plan: Patient on Eliquis. This was increased from 2.5 mg to 5 mg for stroke prophylaxis. (6) Chronic respiratory failure with hypoxia, on home oxygen therapy: Code(s): J96.11 - Chronic respiratory failure with hypoxia; Z99.81 - Dependence on supplemental oxygen Status: Acute Assessment and Plan: Not in acute exacerbation. Patient on home oxygen at 5 L and saturation is 100%. [place] every 6 hours (7) Chronic obstructive pulmonary disease: Code(s): J44.9 - Chronic obstructive pulmonary disease, unspecified Status: Acute Assessment and Plan: see above DS: Summary Hospital Course Reason for hospitalization: A flutter RVR Hospital Course: The patient presented to the emergency department from [facility] for evaluation after she was found to have an SpO2 in the 70s on 3 L. Patient states that she is typically on 5 L at home and reports that she was not all feeling short of breath this morning. Workup today for showed a normocytic anemia with an H&H lower than what she had been running with her recent hospitalization. Patient is stable and asymptomatic. Creatinine continues to improve. Chest x-ray shows mild pulmonary edema and small pleural effusions as well as atelectasis, pneumonia seems unlikely by history. Patient states that she has not been started back on furosemide since her acute kidney injury with her most recent hospitalization. I talked with Nephrology and they were okay with patient being restarted on furosemide. Patient restarted on furosemide 20 mg b.i.d. and this will be continued as an outpatient. Pulmonary embolism seems unlikely as she is on Eliquis. Prior to her being discharged she went into atrial flutter with rapid ventricular response which did not respond to diltiazem or metoprolol. She was put on an amiodarone drip with sig
== END 2022-10-10 17:09 | disposition home or self-care (01) ==
LOC: ANHED 18:19 → ANHIMU 10-09 13:11
PROVIDERS: Internal Medicine Critical Care Medicine; Physician Assistant; Admitting Provider Family Medicine; Emergency Provider Emergency Medicine; PCP Internal Medicine; Visit Provider Internal Medicine
DX: I48.92 Unspecified atrial flutter (principal); J96.12 Chronic respiratory failure with hypercapnia; J96.11 Chronic respiratory failure with hypoxia; Z99.81 Dependence on supplemental oxygen; I51.89 Other ill-defined heart diseases; D64.9 Anemia, unspecified; N19 Unspecified kidney failure; K21.9 Gastro-esophageal reflux disease without esophagitis; J44.9 Chronic obstructive pulmonary disease, unspecified; Z87.891 Personal history of nicotine dependence; Z79.01 Long term (current) use of anticoagulants; Z20.822 Contact with and (suspected) exposure to COVID-19
CPT/HCPCS: 36415; 71046; 80053; 82274; 82607; 82728; 82746; 83540; 83550; 83880; 84443; 84484; 85014; 85018; 85025; 87636; 93005; 94640; 96365; 96366; 96375; 97161; 97165; 99285; A9270; G0378; J0153; J0282; J7030

== ENCOUNTER 2022-10-20 06:10 | Emergency (ER) | payer OTHER, SELFPAY ==
[2022-10-20] VITALS (26 sets, daily range): BP systolic 73–161; BP diastolic 54–138; PULSE 82–90; RESP 12–31; TEMP 36.8–37.2; O2SAT 58–100
--- NOTE | ~2022-10-20 | XR_ITS ---
Portable chest x-ray Comparison: 10/08/2022 Clinical History: Shortness of breath Findings: Moderate interstitial pulmonary edema pattern is present. Questionable small right pleural effusion. Cardiomediastinal silhouette is stable. Bones and soft tissues are unremarkable. Impression: Moderate interstitial pulmonary edema pattern with possible small right pleural effusion. Reviewed, dictated and finalized at [facility]. REMOVER Impression: Moderate interstitial pulmonary edema pattern with possible small right pleural effusion.
--- NOTE | 2022-10-20 06:18 | ED.SOB ---
HPI - SOB/Dyspnea General Chief Complaint: Shortness of Breath/Dyspnea Stated Complaint: SOB Time Seen by Provider: 10/20/22 06:18 Source: patient, EMS and RN notes reviewed Mode of arrival: EMS Limitations: no limitations History of Present Illness HPI Narrative: patient apparently somehow got her oxygen turned off or knocked off her face in the middle the night. Woke up this morning confused short of breath could not breathe. Oxygen saturations at 82%. Patient put on oxygen by EMS and slowly improving becoming more responsive still confused when trying to answer questions MD elicited complaint: shortness of breath Pertinent past history: COPD Onset (ago): hour(s) (1.5) Timing: constant Severity: severe Exacerbating factors: other ( oxygen was not on) Relieving factors: oxygen Known history of: COPD Associated symptoms: lightheadedness and other ( Confusion) Related Data Home oxygen amount: other (6 liters) Home Medications Medication Instructions Recorded Confirmed escitalopram oxalate 20 mg tablet 20 mg PO DAILY 09/07/21 10/20/22 montelukast 10 mg tablet 10 mg PO DAILY 09/07/21 10/20/22 omeprazole 40 mg capsule,delayed 40 mg PO DAILY 09/07/21 10/20/22 release trazodone 50 mg tablet 50 mg PO HS 09/07/21 10/20/22 B-complex with vitamin C 1 cap PO DAILY 10/09/22 10/20/22 Saccharomyces boulardii 250 mg 250 mg PO BID 10/09/22 10/20/22 capsule bisacodyl 10 mg rectal suppository 10 mg RECTAL DAILY PRN Constipation 10/09/22 10/20/22 cholecalciferol (vitamin D3) 100 100 mcg PO DAILY 10/09/22 10/20/22 mcg (4,000 unit) tablet magnesium citrate (Citroma oral 300 ml PO DAILY PRN Constipation 10/09/22 10/20/22 solution) magnesium hydroxide 400 mg/5 mL 30 ml PO HS PRN Constipation 10/09/22 10/20/22 oral suspension (Milk of Magnesia) melatonin 5 mg capsule 5 mg PO HS PRN Insomnia 10/09/22 10/20/22 quetiapine 25 mg tablet 25 mg PO HS 10/09/22 10/20/22 sodium phosphates 19 gram-7 118 ml RECTAL ONCE 10/09/22 10/20/22 gram/118 mL enema (Fleet Enema) amitriptyline 10 mg tablet 10 mg PO HS 10/20/22 10/20/22 ropinirole 4 mg tablet 4 mg PO HS 10/20/22 10/20/22 topiramate 100 mg tablet 200 mg PO BID 10/20/22 10/20/22 Allergies Allergy/AdvReac Type Severity Reaction Status Date / Time No Known Drug Allergies Allergy Unknown Verified 10/09/22 01:47 Review of Systems Review of Systems: All systems reviewed & are unremarkable except as noted in HPI and below PMFSH Past Medical History Medical History 2018 novel coronavirus-infected pneumonia (NCIP) Acute exacerbation of chronic obstructive pulmonary disease Acute kidney injury Acute on chronic respiratory failure with hypoxia and hypercapnia Atrial flutter with rapid ventricular response Bacteremia C. difficile colitis Cerebrovascular accident Chronic anticoagulation Chronic obstructive pulmonary disease Congestive heart failure COPD (chronic obstructive pulmonary disease) Diastolic dysfunction Echo in August 2022 showed normal LV function with an EF of 60 to 65%, grade 1 diastolic dysfunction, moderate enlarged right ventricular chamber, normal right ventricular systolic function, moderate tricuspid valve regurgitation, and pulmonary hypertension with an estimated PASP of 59 mmHg. Encephalopathy Gastroesophageal reflux disease Jugular vein thrombosis Normocytic anemia Obesity (BMI 30-39.9) Pneumonia Renal failure Requiring temporary dialysis and CRRT in 09/15. Sepsis Shock Staphylococcus epidermidis bacteremia (08/2022) Urinary tract infection Surgical History Surgical History History of 3 sections History of cholecystectomy History of left knee replacement Family History Family History Father Hypertension Acute myocardial infarction Sibling Hypertension Mother Family his
--- NOTE | 2022-10-20 06:32 | PC.NURSE ---
Pt's son, Juancarlos Shin, calls for an update and wants to be called when pt is ready to be discharged.
[2022-10-20 06:54] LABS: Base Excess ABG 19.1 mmol/L (0-2); HCO3 ABG 44.8 mmol/L (23-29); Oxygen Content ABG 11.1 %vol (16.0-22.0); Oxygen Saturation ABG 89.1 % (95-97); Oxyhemoglobin 88.2 % (94-100); PCO2 ABG 60.7 mmHg (35-45); PO2 ABG 47.8 mmHg (80-90); Total Hemoglobin 8.9 g/dL (12.0-18.0); pH ABG 7.49 (7.35-7.45)
[2022-10-20 06:57] LABS: Basophils Absolute Auto 0.04 K/mm3 (0.00-0.10); Basophils Percent Auto 0.4 % (0.0-1.0); Eosinophils Absolute Auto 0.06 K/mm3 (0.02-0.50); Eosinophils Percent Auto 0.7 % (1.0-6.0); Hematocrit 26.7 % (35.0-49.0); Hemoglobin 7.4 g/dL (12.0-15.0); Immature Granulocyte Absolute 0.05 K/mm3 (0.00-0.00); Immature Granulocyte Percent A 0.6 % (0.0-0.0); Lymphocytes Absolute Auto 2.18 K/mm3 (1.10-4.50); Lymphocytes Percent Auto 24.2 % (18.0-42.0); Mean Corpuscular HGB Conc 27.7 g/dL (32.0-36.0); Mean Corpuscular Hemoglobin 26.5 pg (27.0-31.0); Mean Corpuscular Volume 95.7 fL (78.0-102.0); Mean Platelet Volume 9.2 fl (9.2-11.8); Monocytes Absolute Auto 0.58 K/mm3 (0.10-0.90); Monocytes Percent Auto 6.4 % (2.0-11.0); Neutrophils Absolute Auto 6.1 K/mm3 (1.7-7.2); Neutrophils Percent Auto 67.7 % (50.0-70.0); Platelet Count Result 268 K/mm3 (150-420); Red Blood Count 2.79 M/mm3 (4.20-5.40)
[2022-10-20 06:58] LABS: Device HIGH FLOW NASAL CANN; Modified Allen's Test Pass
--- NOTE | 2022-10-20 07:06 | PC.NURSE ---
Pt remains confused at times, asking same questions, hard to get complete accurate hx. Phone # obtained for pts. son who lives c her, pt keeps stating she wants to go home when her O2 levels are up. And then asking for her friend to take her clothes home. Spo2 noted upper 80's on 6L [place] O2. Update report given to Dr Putnam, Report givent eugene Nunez RN
[2022-10-20 07:17] LABS: Lactic Acid Reflex 1.6 mmol/L (0.4-2.0)
--- NOTE | 2022-10-20 07:18 | ED.GENADULT ---
HPI - General Adult General Chief complaint: Shortness of Breath/Dyspnea Stated complaint: SOB Time Seen by Provider: 10/20/22 06:18 Source: patient, EMS and RN notes reviewed Mode of arrival: EMS Limitations: no limitations History of Present Illness HPI narrative: I took over from the previous provider in the management of this patient. Please refer to the note for further details. In brief, the patient is a 62-year-old woman with multiple comorbidities including history of COPD on oxygen 6 L at all times, on CPAP therapy at night, prior stroke, history of respiratory failure, chronic kidney disease, congestive heart failure. Also with obesity, UTIs, GERD, atrial flutter on Eliquis therapy. she presents from home via EMS due to increasing dyspnea and confusion. The patient had an oxygen saturation of 82% on her home oxygen at home 6 L. she received Solu-Medrol 125 mg IV by EMS as well as a DuoNeb. She was transferred here for further evaluation. Related Data Home Medications Medication Instructions Recorded Confirmed escitalopram oxalate 20 mg tablet 20 mg PO DAILY 09/07/21 10/20/22 montelukast 10 mg tablet 10 mg PO DAILY 09/07/21 10/20/22 omeprazole 40 mg capsule,delayed 40 mg PO DAILY 09/07/21 10/20/22 release trazodone 50 mg tablet 50 mg PO HS 09/07/21 10/20/22 B-complex with vitamin C 1 cap PO DAILY 10/09/22 10/20/22 Saccharomyces boulardii 250 mg 250 mg PO BID 10/09/22 10/20/22 capsule bisacodyl 10 mg rectal suppository 10 mg RECTAL DAILY PRN Constipation 10/09/22 10/20/22 cholecalciferol (vitamin D3) 100 100 mcg PO DAILY 10/09/22 10/20/22 mcg (4,000 unit) tablet magnesium citrate (Citroma oral 300 ml PO DAILY PRN Constipation 10/09/22 10/20/22 solution) magnesium hydroxide 400 mg/5 mL 30 ml PO HS PRN Constipation 10/09/22 10/20/22 oral suspension (Milk of Magnesia) melatonin 5 mg capsule 5 mg PO HS PRN Insomnia 10/09/22 10/20/22 quetiapine 25 mg tablet 25 mg PO HS 10/09/22 10/20/22 sodium phosphates 19 gram-7 118 ml RECTAL ONCE 10/09/22 10/20/22 gram/118 mL enema (Fleet Enema) amitriptyline 10 mg tablet 10 mg PO HS 10/20/22 10/20/22 ropinirole 4 mg tablet 4 mg PO HS 10/20/22 10/20/22 topiramate 100 mg tablet 400 mg PO BID 10/20/22 10/20/22 Allergies Allergy/AdvReac Type Severity Reaction Status Date / Time No Known Drug Allergies Allergy Unknown Verified 10/09/22 01:47 Review of Systems Review of Systems: All systems reviewed & are unremarkable except as noted in HPI and below Constitutional: Constitutional: Reports as per HPI, Reports no additional constitutional complaints, Denies chills, Denies excessive sweating, Reports fatigue, Denies fever(s), Denies headache(s) and Denies weakness Eyes: Eyes: Reports as per HPI, Reports no additional eye complaints, Denies change in vision and Denies photophobia ENT: Reports system reviewed and no additional complaints, except as documented, Reports as per HPI, Denies dysphagia, Denies vertigo, Denies dizziness, Denies headache(s), Denies lip swelling, Denies nasal congestion, Denies sore throat, Denies throat swelling and Denies tongue swelling Cardiovascular: Cardiovascular: Reports as per HPI, Reports no additional cardiovascular complaints, Denies chest pain, Denies syncope, Denies rapid heart rate and Reports dyspnea Respiratory: Respiratory: Reports as per HPI, Reports no additional respiratory complaints, Denies chest congestion, Denies cough, Reports dyspnea and Denies wheezing Gastrointestinal: Gastrointestinal: Reports as per HPI, Reports no additional gastrointestinal complaints, Denies abdominal pain, Denies constipation, Denies dysphagia, Denies diarrhea, Denies nausea and Denies vomiting Genitourinary: Genitourinary: Reports as per HPI, Denies hematuria, Denies urinary frequency, Denies dysuria, Denies urinary incontinence and Denies urinary urgency Musculoskeletal: Musculoskeletal: Reports no additional musculoskeletal complaints, Denie
--- NOTE | 2022-10-20 07:20 | ECG_ITS ---
Measurements Intervals [place] Rate: 84 P: 59 NV: 153 QRS: 54 QRSD: 131 T: 64 QT: 360 QTc: 426 Interpretive Statements SINUS RHYTHM RIGHT BUNDLE BRANCH BLOCK ABNORMAL ECG COMPARED TO ECG 10/08/2022 18:10:22 RIGHT BUNDLE-BRANCH BLOCK NOW PRESENT Electronically Signed On 10-20-2022 13:51:41 PRODUCTION STAGE MANAGER by Isaac Orlando M.D.
[2022-10-20 07:21] LABS: Alanine Aminotransferase 40 U/L (14-59); Albumin Level 2.3 g/dL (3.4-5.0); Alkaline Phosphatase 135 U/L (46-116); Aspartate Amino Transferase 30 U/L (15-37); Bilirubin,Total 0.3 mg/dL (0.00-1.00); Blood Urea Nitrogen 12 mg/dL (7-18); Chloride 95 mmol/L (98-108); Estimated CRCL calculation 42 ml/min; Estimated Glomerular Filt Rate 38; Glucose 106 mg/dL (70-99); Osmolality Calculated 293 mOsm/kg (285-295); Potassium 4.7 mmol/L (3.5-5.1); Sodium 142 mmol/L (136-145)
[2022-10-20 07:22] LABS: Appearance Urine Clear (Clear); Bilirubin Urine Negative (Negative); Blood Urine Negative (Negative); Color Urine Light Yellow (Yellow); Glucose Urine UA Negative (Negative); Ketones Urine Negative (Negative); Leukocyte Esterase Ur 1+ LEU/UL (Negative); Nitrate Urine Negative (Negative); Protein Urine Negative (Negative); Urobilinogen Urine 0.2 mg/dL (0.2-1.0); pH Urine 7.5 (5.0-8.0)
[2022-10-20 07:23] LABS: NT Pro B Type Natriuretic Pept 1874 pg/mL (0-125)
[2022-10-20 07:23] LABS: CRP 2.1 mg/dL (0.0-0.9); Magnesium 1.7 mg/dL (1.8-2.4)
[2022-10-20 07:33] LABS: Influenza A QL RT-PCR Negative (Negative); Influenza B QL RT-PCR Negative (Negative); SARS-CoV-2 RNA PCR Negative (Negative)
[2022-10-20 07:34] LABS: Carbon Dioxide > 45 mmol/L (21-32)
[2022-10-20 07:39] LABS: Add Urine Microscopic? YES; Bacteria Urine 1+ /hpf; Squamous Epithelial Cell Urine None seen /hpf (Few)
[2022-10-20 07:43] LABS: Troponin I 29.3 ng/L (0.00-60.4)
[2022-10-20 07:44] LABS: D Dimer 1.13 mg/L (0.19-0.50)
[2022-10-20] MEDS: IPRATROPIUM 0.5 MG/ALBUTEROL SULFATE 2.5 MG AMPUL.NEB 3 ML INHALATION (07:58)
[2022-10-20] MEDS: FUROSEMIDE INJ 100 MG/10 ML VIAL 80 MG IV PUSH (08:05)
[2022-10-20 08:31] LABS: Erythrocyte Sedimentation Rate 64 mm/hr (0-20)
[2022-10-20 08:41] LABS: Strep Group A RT-PCR NOT DETECTED (Negative)
[2022-10-20 09:17] LABS: pH VBG 7.33 (7.33-7.43)
[2022-10-20 09:19] LABS: HCO3 VBG 45.6 mEq/l (24.0-30.0); PCO2 VBG 88.7 mmHg (42.0-48.0); PO2 VBG 30.4 mmHg (35.0-45.0)
[2022-10-20 09:20] LABS: Device BIPAP
[2022-10-20 09:21] LABS: Expiratory Pressure 8 cmH2O; Inspiratory Pressure 18 cmH2O
--- NOTE | 2022-10-23 14:19 | PC.NURSE ---
final urine culture report reviewed. pt transferred to [facility] with dx of UTI
--- NOTE | 2022-10-26 18:40 | PC.NURSE ---
FINAL BLOOD CULTURE RESULTS: no growth after 5 days.
--- NOTE | 2022-10-28 13:18 | PC.NURSE ---
final blood culture reports x2 reviewed. no growth after 5 days. no change in plan of care.
== END 2022-10-20 09:55 | disposition short-term general hospital (02) ==
PROVIDERS: Emergency Medicine; Emergency Provider Emergency Medicine; PCP Internal Medicine
DX: J96.92 Respiratory failure, unspecified with hypercapnia (principal); J96.91 Respiratory failure, unspecified with hypoxia; I50.9 Heart failure, unspecified; J44.1 Chronic obstructive pulmonary disease with (acute) exacerbation; N18.9 Chronic kidney disease, unspecified; N39.0 Urinary tract infection, site not specified; Z20.822 Contact with and (suspected) exposure to COVID-19; Z86.73 Personal history of transient ischemic attack (TIA), and cerebral infarction without residual deficits; Z99.81 Dependence on supplemental oxygen; Z87.891 Personal history of nicotine dependence; Z79.01 Long term (current) use of anticoagulants
CPT/HCPCS: 36415; 36600; 71045; 80053; 81001; 82803; 82805; 83605; 83735; 83880; 84484; 85025; 85380; 85652; 86140; 87040; 87077; 87086; 87088; 87186; 87636; 87651; 93005; 94640; 96365; 96375; 99285; J1650; J1940; J2543

== ENCOUNTER 2022-10-20 10:30 | Inpatient (IN) | payer OTHER, SELFPAY ==
[2022-10-20] VITALS (36 sets, daily range): BP systolic 108–131; BP diastolic 13–99; PULSE 69–90; RESP 13–31; TEMP 36.6–36.9; O2SAT 82–100; BMI 37.2
--- NOTE | ~2022-10-20 | CT_ITS ---
EXAMINATION: CTA chest PE protocol DATE: 10/20/2022 14:04 INDICATION: Shortness of breath. TECHNIQUE: Computed tomography angiography (CTA) of the chest was performed with 100 mL Omnipaque-350 intravenous contrast timed to evaluate the pulmonary arteries. Coronal maximum intensity projection 3D-reconstructions were created by the technologist. Automated exposure control and iterative reconst ruction technique were employed. The dose-length product was 793.13 mGy-cm. COMPARISON: Chest CT 09/10/2022, 08/27/22 FINDINGS: There is mild emphysema. There is smooth septal thickening in the lungs, consistent with mi ld pulmonary edema. There are small pleural effusions. There is mild dependent atelectasis bilaterall y. Left thyroid lobe is enlarged. Cardiomegaly is noted. There are coronary artery calcifications. Th ere are calcifications aortic valve. There is no pulmonary embolus. There is mild right hilar and med iastinal lymphadenopathy, likely reactive. There are changes of cholecystectomy. There are multiple h ealing left-sided rib fractures with callus formation. IMPRESSION: 1. No pulmonary embolus. 2. Mild pulmonary edema with small pleural effusions. 3. Mild emphysema. 4. Mild right hilar and mediastinal lymphadenopathy, likely reactive. Reviewed, dictated and finalized at location A. R METAL PATTERNS
--- NOTE | ~2022-10-20 | US_ITS ---
EXAMINATION: US venous doppler [facility] DATE: 10/20/2022 15:20 INDICATION: Lower limb edema. TECHNIQUE: Grayscale ultrasound images without and with compression and Doppler ultrasound images of the bilateral lower extremity veins were obtained. COMPARISON: None. FINDINGS: The visualized portions of right common femoral vein, profunda (deep) femoral vein, femoral vein, pop liteal vein, peroneal veins, posterior tibial veins, and greater saphenous vein outflow are patent. The visualized portions of left common femoral vein, profunda femoral vein, femoral vein, popliteal v ein, peroneal veins, posterior tibial veins, and greater saphenous vein outflow are patent. IMPRESSION: 1. No deep venous thrombosis. Reviewed, dictated and finalized at location A. ICAL RESEARCH SPECIALIST
--- NOTE | 2022-10-20 10:41 | ADMIMU ---
This patient, Cony Shin, was admitted to IMU status, and placed in Intensive Care Unit-2. Patient/family oriented to hospital policies and general routines including ID bracelet, bed and alarms, visiting hours, pain management, procedures, bathroom and other care routines, personal items, smoking policy, room service/diet, and visiting hours. Valuables list has been completed. Information on how to activate the Rapid Response Team has been discussed. Patient/Family are encouraged to report perceived risks to care and to ask questions if they do not understand what they are told or what they should do.
--- NOTE | 2022-10-20 11:47 | PM.IMHP ---
H&P: HPI History of Present Illness Date/Time: 10/20/22 11:45 Chief Complaint: Shortness of breath Narrative: patient is 62-year-old female with a past medical history of acute on chronic respiratory failure with hypoxia and hypercapnia, a flutter, CHF, CVA, encephalopathy, shock and sepsis who presented to the ED at [facility] with complaints of shortness of breath. Patient stated that her CPAP was overloaded water and she was unable to breathe. She stated that her did notice that she was desatting and she did not know what time it was or what had happened. According to the ED physician note, it was noted that the patient's oxygen was turned off at home and her saturation was 82% on room air. Patient is a very poor historian and also stated that she was just released from [facility] however review of her last visit which was about 10 days ago patient had went home from the hospital as she did well with PT and OT. Labs remained stable at this time. It is noted that her H&H is slightly 7.4/26.7. Chest x-ray did show moderate CHF. D-dimer is elevated at 1.13. Patient did come over on CPAP was able to titrate the CPAP off and she is currently on 5 L nasal cannula per home settings. Saturations have been stable awaiting results from ABG that was ordered at 12:45 p.m.. Currently patient denies any nausea, vomiting, diarrhea, constipation, sweats, fevers, chills. She did state that she had chest pain, shortness a breath, difficulty breathing or taking a deep breath on inspiration. She did deny any sputum changes or wheezes. She denies having a cough. CTA was ordered due to elevated D-dimer. Will get venous Dopplers as well. Patient is being admitted to the hospitalist service as an inpatient and will need greater than 2 midnights for evaluation and recovery. Review of Systems Review of Systems: All systems reviewed & are unremarkable except as noted in HPI and below PMFSH Past Medical History Medical History 2019 novel coronavirus-infected pneumonia (NCIP) Acute exacerbation of chronic obstructive pulmonary disease Acute kidney injury Acute on chronic respiratory failure with hypoxia and hypercapnia Atrial flutter with rapid ventricular response Bacteremia C. difficile colitis Cerebrovascular accident Chronic anticoagulation Chronic obstructive pulmonary disease Congestive heart failure COPD (chronic obstructive pulmonary disease) Diastolic dysfunction Echo in August 2022 showed normal LV function with an EF of 60 to 65%, grade 1 diastolic dysfunction, moderate enlarged right ventricular chamber, normal right ventricular systolic function, moderate tricuspid valve regurgitation, and pulmonary hypertension with an estimated PASP of 59 mmHg. Encephalopathy Gastroesophageal reflux disease Jugular vein thrombosis Normocytic anemia Obesity (BMI 30-39.9) Pneumonia Renal failure Requiring temporary dialysis and CRRT in 09/15. Sepsis Shock Staphylococcus epidermidis bacteremia (08/2022) Urinary tract infection Surgical History Surgical History History of 3 sections History of cholecystectomy History of left knee replacement Family History Family History Father Hypertension Acute myocardial infarction Sibling Hypertension Mother Family history of heart disease in male family member before age 55 Brother Acute myocardial infarction Father Acute myocardial infarction Other Cerebrovascular accident Family history of cardiovascular disease Social History Social History Social History: Surrogate medical decision maker: Sainestor Shin, brother. Code status: Full code. Smoking packs per day: 1 Smoking cigarettes per day: 20.0 Years smoked: 50 Smokin
[2022-10-20] MEDS: MAGNESIUM SULF 4 GM/WATER100ML 4 GM/100 ML BAG IVPB (12:30)
[2022-10-20] MEDS: FUROSEMIDE INJ 40 MG/4 ML VIAL IV PUSH ×2 (12:30→17:17)
[2022-10-20] MEDS: METOPROLOL SUCCINATE EXT REL 25 MG TABCR PO (12:31)
[2022-10-20] MEDS: ESCITALOPRAM OXALATE 10 MG TABLET 20 MG PO (12:31)
[2022-10-20] MEDS: MONTELUKAST SODIUM 10 MG TABLET PO (12:32)
[2022-10-20 13:15] LABS: Alveolar/Arterial O2 Gradient 151.2 mmHg; Base Excess ABG 18.1 mEq/l (+/-2.0); Carboxyhemoglobin 0.9 % THb (0-2.0); Fractional Inspired Oxygen 40 %; HCO3 ABG 44.5 mEq/l (22.0-26.0); Methemoglobin ABG 0.4 %THb (0-1.5); Oxygen Content ABG 11.4 %vol (16.0-22.0); Oxygen Saturation ABG 90.5 % (95.0-100.0); Oxyhemoglobin 90.6 % THb (90.0-100.0); PO2 ABG 58.6 mmHg (80.0-100.0); PO2 FiO2 Ratio Arterial Blood 1.46 %; Reduced Hemoglobin 8.1 %THb (0-5.0); Total Hemoglobin 8.9 g/dL (12.0-18.0); pH ABG 7.449 (7.350-7.450)
[2022-10-20 13:18] LABS: PCO2 ABG 65.6 mmHg (35.0-45.0); Site Drawn RIGHT RADIAL
[2022-10-20 13:19] LABS: Device NASAL CANNULA; Modified Allen's Test Pass
[2022-10-20] MEDS: rOPINIRole HCL 1 MG TABLET PO (14:56)
[2022-10-20] MEDS: TOPIRAMATE 100 MG TABLET 200 MG PO (17:18)
[2022-10-20] MEDS: APIXABAN 5 MG TABLET PO (17:18)
[2022-10-20] MEDS: rOPINIRole HCL 1 MG TABLET 4 MG PO (20:14)
[2022-10-20] MEDS: traZODone HCL 50 MG TABLET PO (20:15)
[2022-10-20] MEDS: QUEtiapine FUMARATE 25 MG TABLET PO (20:15)
[2022-10-20] MEDS: AMITRIPTYLINE HCL 10 MG TABLET PO (20:15)
--- NOTE | 2022-10-20 22:46 | PC.NURSE ---
Report given to Grant GRAMAJO, all patient belongings and medication sent with patient.
--- NOTE | 2022-10-20 23:08 | PC.NURSE ---
Patient admitted on 3 Med-Surg on 10/20/2021 at 22:40
[2022-10-21] VITALS (9 sets, daily range): BP systolic 104–127; BP diastolic 49–65; PULSE 67–76; RESP 16–20; TEMP 35.9–36.4; O2SAT 93–100
[2022-10-21 06:29] LABS: Basophils Percent Auto 0.2 % (0.2-1.2); Eosinophils Absolute Auto 0.1 K/mm3 (0-0.3); Eosinophils Percent Auto 1.2 % (0-4.4); Hematocrit 23.2 % (37.0-47.0); Immature Granulocyte Absolute 0.06 K/mm3 (0.00-0.031); Immature Granulocyte Percent A 0.7 % (0-0.5); Lymphocytes Absolute Auto 2.24 K/mm3 (0.9-3.2); Lymphocytes Percent Auto 27.7 % (18.3-44.2); Mean Corpuscular HGB Conc 28.9 g/dl (32-36); Mean Corpuscular Hemoglobin 26.6 pg (26-34); Mean Corpuscular Volume 92.1 fl (80-100); Mean Platelet Volume 9.2 fl (7.4-10.4); Monocytes Absolute Auto 0.7 K/mm3 (0.1-0.6); Monocytes Percent Auto 8.4 % (2.6-8.5); Neutrophils Percent Auto 61.8 % (45.5-73.1); Platelet Count Result 227 k/mm3 (150-375); Red Blood Count 2.52 M/mm3 (4.2-5.4); Red Cell Distribution Width 14.2 % (11.5-14.5); White Blood Count 8.1 K/mm3 (4.5-10.0)
[2022-10-21 06:49] LABS: Alanine Aminotransferase 30 U/L (6-35); Albumin Level 2.9 g/dL (3.5-5.1); Alkaline Phosphatase 118 U/L (38-126); Aspartate Amino Transferase 29 U/L (14-36); Bilirubin,Total 0.4 mg/dL (0.2-1.3); Blood Urea Nitrogen 20 mg/dL (7-17); Calcium 8.7 mg/dL (8.4-10.2); Carbon Dioxide > 40 mmol/L (22-30); Chloride 85 mmol/L (98-107); Estimated CRCL calculation 39 ml/min; Estimated Glomerular Filt Rate 32; Glucose 94 mg/dL (65-110); Magnesium 2.7 mg/dL (1.6-2.3); Potassium 3.4 mmol/L (3.4-5.0); Sodium 135 mmol/L (137-145)
[2022-10-21 06:52] LABS: Hemoglobin 6.7 g/dL (12.0-15.0)
[2022-10-21 07:12] LABS: Anisocytosis 1+ (NORMAL); Hypochromasia 2+ (NORMAL); Microcytosis 1+ (NORMAL); Platelet Estimate Adequate (Adequate); Schistocytes None Seen (NORMAL)
--- NOTE | 2022-10-21 09:15 | P.PNIM_ITS ---
Progress Note: A&P Assessment and Plan (1) Acute on chronic congestive heart failure: Code(s): I50.9 - Heart failure, unspecified Status: Inactive Assessment and Plan: * acute on chronic diastolic heart failure in exacerbation * Chest xray shows moderate pulmonary edema * echo shows an EF of 60 65% with grade 1 diastolic dysfunction * 2+ pitting edema bilateral lower extremities * BNP 1874 * hold IV Lasix 40 mg b.i.d. 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 * started last visit with AFib RVR * currently in sinus rhythm * Hold Eliquis since her HGB is low (3) Acute on chronic respiratory failure with hypoxia and hypercapnia: Code(s): J96.21 - Acute and chronic respiratory failure with hypoxia; J96.22 - Acute and chronic respiratory failure with hypercapnia Status: Acute Assessment and Plan: * upon arrival to the hospital patient was noted to be 82% on 5 L nasal cannula at home * ABG did show respiratory acidosis patient was placed on BiPAP * repeat ABG ordered and pending * continue home O2 at 5 L along with home BiPAP CPAP * Trend respiratory status * adjust therapy as indicated (4) Chronic obstructive pulmonary disease: Code(s): J44.9 - Chronic obstructive pulmonary disease, unspecified Status: Acute Assessment and Plan: * patient denies any cough with sputum changes or increased amount of sputum, or wheezes * patient does have shortness of breath * chronic not in exacerbation * supplemental oxygen wean to maintain home settings and saturation greater than 88% * Atrovent and albuterol ordered, Singulair continued * Trend respiratory status * adjust therapy as indicated (5) Iron deficiency anemia: Code(s): D50.9 - Iron deficiency anemia, unspecified Status: Acute Assessment and Plan: * anemia labs from last visit: Iron 16, TIBC 284,% saturation 6, ferritin 46.60, B12 534, folate 5.3 * iron 325 b.i.d. ordered * current H&H 6.7/23.2 * One unit of PRBC given 10/21/22 * Occult blood ordered * continue trend H&H * transfuse as indicated if hemoglobin less than 7 * Hold Eliquis for now (6) Elevated d-dimer: Code(s): R79.89 - Other specified abnormal findings of blood chemistry Status: Acute Assessment and Plan: * D-dimer 1.13 * CTA shows no PE, however, indicates pulmonary edema * Hold home Eliquis since she is now anemic * will rule out PE with patient complaining of chest pain, difficulty with inspiration or deep inspiration, tachypnea * venous Dopplers no DVT noted * continue Trend respiratory status (7) Restless leg syndrome: Code(s): G25.81 - Restless legs syndrome Status: Acute Assessment and Plan: * seems to be a problem right now as patient cannot hold still * will add a 1 time dose of 2 mg of ropinirole * continue home dose (8) Acute metabolic encephalopathy: Code(s): G93.41 - [place]
--- NOTE | 2022-10-21 09:15 | PM.IMPN ---
Progress Note: A&P Assessment and Plan (1) Acute on chronic congestive heart failure: Code(s): I50.9 - Heart failure, unspecified Status: Inactive Assessment and Plan: acute on chronic diastolic heart failure in exacerbation Chest xray shows moderate pulmonary edema echo shows an EF of 60 65% with grade 1 diastolic dysfunction 2+ pitting edema bilateral lower extremities BNP 1874 hold IV Lasix 40 mg b.i.d. due to worsening renal function Give one dose of Diamox 500mg IV with CO2 elevated continue home metoprolol trend daily weights trend urine output adjust therapy as indicated (2) Chronic anticoagulation: Code(s): Z79.01 - FDC (current) use of anticoagulants Status: Acute Assessment and Plan: currently on Eliquis 5 mg b.i.d. started last visit with AFib RVR currently in sinus rhythm Hold Eliquis since her HGB is low (3) Acute on chronic respiratory failure with hypoxia and hypercapnia: Code(s): J96.21 - Acute and chronic respiratory failure with hypoxia; J96.22 - Acute and chronic respiratory failure with hypercapnia Status: Acute Assessment and Plan: upon arrival to the hospital patient was noted to be 82% on 5 L nasal cannula at home ABG did show respiratory acidosis patient was placed on BiPAP repeat ABG ordered and pending continue home O2 at 5 L along with home BiPAP CPAP Trend respiratory status adjust therapy as indicated (4) Chronic obstructive pulmonary disease: Code(s): J44.9 - Chronic obstructive pulmonary disease, unspecified Status: Acute Assessment and Plan: patient denies any cough with sputum changes or increased amount of sputum, or wheezes patient does have shortness of breath chronic not in exacerbation supplemental oxygen wean to maintain home settings and saturation greater than 88% Atrovent and albuterol ordered, Singulair continued Trend respiratory status adjust therapy as indicated (5) Iron deficiency anemia: Code(s): D50.9 - Iron deficiency anemia, unspecified Status: Acute Assessment and Plan: anemia labs from last visit: Iron 16, TIBC 284,% saturation 6, ferritin 46.60, B12 534, folate 5.3 iron 325 b.i.d. ordered current H&H 6.7/23.2 One unit of PRBC given 10/21/22 Occult blood ordered continue trend H&H transfuse as indicated if hemoglobin less than 7 Hold Eliquis for now (6) Elevated d-dimer: Code(s): R79.89 - Other specified abnormal findings of blood chemistry Status: Acute Assessment and Plan: D-dimer 1.13 CTA shows no PE, however, indicates pulmonary edema Hold home Eliquis since she is now anemic will rule out PE with patient complaining of chest pain, difficulty with inspiration or deep inspiration, tachypnea venous Dopplers no DVT noted continue Trend respiratory status (7) Restless leg syndrome: Code(s): G25.81 - Restless legs syndrome Status: Acute Assessment and Plan: seems to be a problem right now as patient cannot hold still will add a 1 time dose of 2 mg of ropinirole continue home dose (8) Acute metabolic encephalopathy: Code(s): G93.41 - Metabolic encephalopathy Status: Acute Assessment and Plan: patient does seem slightly confused most likely related to low oxygen could also be chronic as the patient did have a stroke and seemed to be a little demented continue trend mental status consider head CT if indicated Time Spent With Patient Time: 53 minnutes Time with patient: Greater than 35 minutes Subjective Date/time seen: 10/21/22 09:15 Interval history: 10/21/22 0915 Patient is doing ok. She is wanting to know if she can go home. Currently, HGB 6.7 HCT 23.2. Will give patient one unit o
[2022-10-21] MEDS: SODIUM CHLORIDE 0.9% IV 250 ML 30 ML IV CONT (09:30)
[2022-10-21] MEDS: MONTELUKAST SODIUM 10 MG TABLET PO (09:31)
[2022-10-21] MEDS: METOPROLOL SUCCINATE EXT REL 25 MG TABCR PO (09:31)
[2022-10-21] MEDS: CHOLECALCIFEROL 1,000 UNITS TABLET 4000 UNITS PO (09:31)
[2022-10-21] MEDS: acetaZOLAMIDE SODIUM FOR INJ 500 MG VIAL IV PUSH (09:31)
[2022-10-21] MEDS: TOPIRAMATE 100 MG TABLET 200 MG PO ×2 (09:32→16:41)
[2022-10-21] MEDS: VITAMIN B COMPLEX/VIT C CAPSULE 1 EACH PO (09:32)
[2022-10-21] MEDS: ESCITALOPRAM OXALATE 10 MG TABLET 20 MG PO (09:32)
[2022-10-21] MEDS: APIXABAN 5 MG TABLET PO (09:33)
[2022-10-21 18:33] LABS: Hematocrit 27.5 % (37.0-47.0); Hemoglobin 7.9 g/dL (12.0-15.0)
[2022-10-21 20:05] LABS: IFOB Positive Control Positive; Immunochemical Fecal Occult Bl Negative (N)
[2022-10-21] MEDS: rOPINIRole HCL 1 MG TABLET 4 MG PO (21:07)
[2022-10-21] MEDS: traZODone HCL 50 MG TABLET PO (21:07)
[2022-10-21] MEDS: QUEtiapine FUMARATE 25 MG TABLET PO (21:07)
[2022-10-21] MEDS: AMITRIPTYLINE HCL 10 MG TABLET PO (21:07)
[2022-10-22] VITALS (7 sets, daily range): BP systolic 105–122; BP diastolic 40–64; PULSE 68–90; RESP 14–20; TEMP 35.9–36.4; O2SAT 87–99
[2022-10-22 06:16] LABS: Alanine Aminotransferase 36 U/L (6-35); Albumin Level 3.2 g/dL (3.5-5.1); Alkaline Phosphatase 123 U/L (38-126); Aspartate Amino Transferase 33 U/L (14-36); Bilirubin,Total 0.4 mg/dL (0.2-1.3); Blood Urea Nitrogen 19 mg/dL (7-17); Calcium 8.9 mg/dL (8.4-10.2); Carbon Dioxide > 40 mmol/L (22-30); Chloride 88 mmol/L (98-107); Estimated CRCL calculation 42 ml/min; Estimated Glomerular Filt Rate 35; Glucose 92 mg/dL (65-110); Magnesium 2.4 mg/dL (1.6-2.3); Potassium 3.3 mmol/L (3.4-5.0); Sodium 134 mmol/L (137-145)
[2022-10-22 06:30] LABS: Basophils Absolute Auto 0.1 K/mm3 (0.0-0.1); Basophils Percent Auto 0.6 % (0.2-1.2); Eosinophils Absolute Auto 0.3 K/mm3 (0-0.3); Eosinophils Percent Auto 2.4 % (0-4.4); Hematocrit 28.1 % (37.0-47.0); Hemoglobin 8.1 g/dL (12.0-15.0); Immature Granulocyte Absolute 0.06 K/mm3 (0.00-0.031); Immature Granulocyte Percent A 0.6 % (0-0.5); Lymphocytes Absolute Auto 1.75 K/mm3 (0.9-3.2); Lymphocytes Percent Auto 16.2 % (18.3-44.2); Mean Corpuscular HGB Conc 28.8 g/dl (32-36); Mean Corpuscular Volume 93.7 fl (80-100); Mean Platelet Volume 9.3 fl (7.4-10.4); Monocytes Absolute Auto 0.9 K/mm3 (0.1-0.6); Neutrophils Absolute Auto 7.8 K/mm3 (1.3-6.7); Neutrophils Percent Auto 72.2 % (45.5-73.1); Platelet Count Result 252 k/mm3 (150-375); Red Cell Distribution Width 14.3 % (11.5-14.5); White Blood Count 10.8 K/mm3 (4.5-10.0)
[2022-10-22 08:40] LABS: Hypochromasia 1+ (NORMAL); Platelet Estimate Adequate (Adequate); Schistocytes None Seen (NORMAL); Stomatocytes 1+ (NORMAL)
[2022-10-22] MEDS: METOPROLOL SUCCINATE EXT REL 25 MG TABCR PO (09:01)
[2022-10-22] MEDS: TOPIRAMATE 100 MG TABLET 200 MG PO ×2 (09:01→17:08)
[2022-10-22] MEDS: MONTELUKAST SODIUM 10 MG TABLET PO (09:03)
[2022-10-22] MEDS: ESCITALOPRAM OXALATE 10 MG TABLET 20 MG PO (09:03)
[2022-10-22] MEDS: FUROSEMIDE INJ 40 MG/4 ML VIAL IV PUSH ×2 (09:04→17:07)
[2022-10-22] MEDS: CHOLECALCIFEROL 1,000 UNITS TABLET 4000 UNITS PO (09:04)
[2022-10-22] MEDS: VITAMIN B COMPLEX/VIT C CAPSULE 1 EACH PO (09:04)
--- NOTE | 2022-10-22 13:57 | PM.IMPN ---
Progress Note: A&P Assessment and Plan (1) Acute on chronic congestive heart failure: Code(s): I50.9 - Heart failure, unspecified Status: Acute Assessment and Plan: Patient presented with shortness of breath, lower extremity edema. CXR on presentation showed moderate interstitial pulmonary edema with possible small right pleural effusion. BNP 1900 on admission patient has been diuresed with IV Lasix with symptomatic improvement IV Lasix held given elevation in serum creatinine plan to resume home Lasix 20 mg b.i.d. for tomorrow morning if continued improvement in renal function last echo in August 2022 showed EF of 60-65% with grade 1 diastolic dysfunction patient was given 1 dose of Diamox. appears to have chronically elevated serum bicarb lower extremity edema has improved continue to monitor volume status. Monitor I&O and daily weights (2) Acute on chronic respiratory failure with hypoxia and hypercapnia: Code(s): J96.21 - Acute and chronic respiratory failure with hypoxia; J96.22 - Acute and chronic respiratory failure with hypercapnia Status: Acute Assessment and Plan: patient with chronic home oxygen requirement of 5 L, increases up to 8 L with activity. Noted to be hypoxic on presentation at 82% patient initially placed on BiPAP upon review of ABG which demonstrated hypercapnia patient is now maintaining adequate O2 sats on her chronic 5 L supplemental O2 continue home CPAP (3) Chronic obstructive pulmonary disease: Code(s): J44.9 - Chronic obstructive pulmonary disease, unspecified Status: Chronic Assessment and Plan: not in acute exacerbation continue albuterol and Atrovent nebs as needed continue singular supportive care continue supplemental oxygen (4) Iron deficiency anemia: Code(s): D50.9 - Iron deficiency anemia, unspecified Status: Acute Assessment and Plan: patient noted to be anemic with hemoglobin of 6.7 patient transfuse 1 unit packed RBC on 10/21/2022 H&H remaining stable following transfusion Eliquis on hold at this time due to anemia stool occult blood test is negative likely due to iron deficiency. Continue oral iron supplementation trend H&H to ensure remaining stable (5) UTI (urinary tract infection): Code(s): N39.0 - Urinary tract infection, site not specified Status: Acute Assessment and Plan: urinalysis abnormal on presentation. patient isn incontinent and not able to indicate symptoms urine culture with growth of >100k Klebsiella pneumoniae will begin IV ceftriaxone (6) Elevated d-dimer: Code(s): R79.89 - Other specified abnormal findings of blood chemistry Status: Acute Assessment and Plan: D-dimer 1.13 CTA shows no PE Hold home Eliquis since she is now anemic venous Dopplers no DVT noted (7) Acute metabolic encephalopathy: Code(s): G93.41 - Metabolic encephalopathy Status: Acute Assessment and Plan: resolved. Likely due to hypercapnia /hypoxia may have been worsened due to UTI. See above patient A&O x4 this time Subjective Date/time seen: 10/22/22 13:57 Interval history: Date of service: 10/22/2022 Priscila Shin is a 62-year-old female with history of chronic respiratory failure on 5 L supplemental O2, COPD, DOMINIC, CVA, diastolic CHF, and several other medical problems who is seen in follow-up for CHF exacerbation. She is feeling well at this time. States her shortness of breath has improved. She denies cough or chest pain. Denies wheezing. Does endorse orthopnea and some conversational dyspnea. Feels her swelling has gone down in her legs. She denies abdominal pain, nausea, vomiting, fever, or chills. She states that she is incontinent of urine. denies dysuria or hematuria. Review of Systems Review of Systems: All systems reviewed & are unremarkable ex
--- NOTE | 2022-10-22 13:57 | P.PNIM_ITS ---
Progress Note: A&P Assessment and Plan (1) Acute on chronic congestive heart failure: Code(s): I50.9 - Heart failure, unspecified Status: Acute Assessment and Plan: Patient presented with shortness of breath, lower extremity edema. CXR on presentation showed moderate interstitial pulmonary edema with possible small right pleural effusion. BNP 1900 on admission * patient has been diuresed with IV Lasix with symptomatic improvement * IV Lasix held given elevation in serum creatinine * plan to resume home Lasix 20 mg b.i.d. for tomorrow morning if continued improvement in renal function * last echo in August 2022 showed EF of 60-65% with grade 1 diastolic dysfunction * patient was given 1 dose of Diamox. appears to have chronically elevated serum bicarb * lower extremity edema has improved * continue to monitor volume status. Monitor I&O and daily weights (2) Acute on chronic respiratory failure with hypoxia and hypercapnia: Code(s): J96.21 - Acute and chronic respiratory failure with hypoxia; J96.22 - Acute and chronic respiratory failure with hypercapnia Status: Acute Assessment and Plan: patient with chronic home oxygen requirement of 5 L, increases up to 8 L with activity. Noted to be hypoxic on presentation at 82% * patient initially placed on BiPAP upon review of ABG which demonstrated hypercapnia * patient is now maintaining adequate O2 sats on her chronic 5 L supplemental O2 * continue home CPAP (3) Chronic obstructive pulmonary disease: Code(s): J44.9 - Chronic obstructive pulmonary disease, unspecified Status: Chronic Assessment and Plan: not in acute exacerbation * continue albuterol and Atrovent nebs as needed * continue singular * supportive care * continue supplemental oxygen (4) Iron deficiency anemia: Code(s): D50.9 - Iron deficiency anemia, unspecified Status: Acute Assessment and Plan: patient noted to be anemic with hemoglobin of 6.7 * patient transfuse 1 unit packed RBC on 10/21/2022 * H&H remaining stable following transfusion * Eliquis on hold at this time due to anemia * stool occult blood test is negative * likely due to iron deficiency. Continue oral iron supplementation * trend H&H to ensure remaining stable (5) UTI (urinary tract infection): Code(s): N39.0 - Urinary tract infection, site not specified Status: Acute Assessment and Plan: urinalysis abnormal on presentation. patient isn incontinent and not able to indicate symptoms * urine culture with growth of >100k Klebsiella pneumoniae * will begin IV ceftriaxone (6) Elevated d-dimer: Code(s): R79.89 - Other specified abnormal findings of blood chemistry Status: Acute Assessment and Plan: D-dimer 1.13 * CTA shows no PE * Hold home Eliquis since she is now anemic * venous Dopplers no DVT noted (7) Acute metabolic encephalopathy: Code(s): G93.41 - Metabolic encephalopathy Status: Acute Assessment and Plan: resolved. * Likely due to hypercapnia /hypoxia * may have been worsened due to UTI. See above * patient A&O x4 this time Subjective Date/time seen: 10/22/22 13:57 Interval history: Date of service: 10/22/2022 Priscila Shin is a 62-year-old female with history of chronic respiratory failure on 5 L supplemental O2, COPD, DOMINIC, CVA, diastolic CHF, and several other medical problems who is seen in follow-up for CHF exacerbation. She is
[2022-10-22] MEDS: traZODone HCL 50 MG TABLET PO (20:29)
[2022-10-22] MEDS: AMITRIPTYLINE HCL 10 MG TABLET PO (20:30)
[2022-10-22] MEDS: rOPINIRole HCL 1 MG TABLET 4 MG PO (20:30)
[2022-10-22] MEDS: QUEtiapine FUMARATE 25 MG TABLET PO (20:30)
[2022-10-23 02:25] VITALS: O2SAT 96
[2022-10-23 05:30] VITALS: BP 105/59; PULSE 82; RESP 18; TEMP 36.2; O2SAT 99
[2022-10-23 07:46] LABS: Hemoglobin 7.8 g/dL (12.0-15.0); Mean Corpuscular HGB Conc 28.9 g/dl (32-36); Mean Corpuscular Hemoglobin 26.6 pg (26-34); Mean Corpuscular Volume 92.2 fl (80-100); Mean Platelet Volume 9.4 fl (7.4-10.4); Platelet Count Result 247 k/mm3 (150-375); Red Blood Count 2.93 M/mm3 (4.2-5.4); Red Cell Distribution Width 14.4 % (11.5-14.5); White Blood Count 9.5 K/mm3 (4.5-10.0)
[2022-10-23 08:03] LABS: Blood Urea Nitrogen 21 mg/dL (7-17); Calcium 8.7 mg/dL (8.4-10.2); Carbon Dioxide > 40 mmol/L (22-30); Chloride 87 mmol/L (98-107); Estimated CRCL calculation 36 ml/min; Estimated Glomerular Filt Rate 28; Glucose 86 mg/dL (65-110); Potassium 3.6 mmol/L (3.4-5.0); Sodium 133 mmol/L (137-145)
[2022-10-23] MEDS: CHOLECALCIFEROL 1,000 UNITS TABLET 4000 UNITS PO (08:36)
[2022-10-23] MEDS: TOPIRAMATE 100 MG TABLET 200 MG PO (08:36)
[2022-10-23] MEDS: ESCITALOPRAM OXALATE 10 MG TABLET 20 MG PO (08:36)
[2022-10-23] MEDS: POTASSIUM CHLORIDE 20 MEQ PACKET (FOR LIQUID) PO (08:36)
[2022-10-23] MEDS: MONTELUKAST SODIUM 10 MG TABLET PO (08:36)
[2022-10-23 08:37] VITALS: PULSE 71
[2022-10-23] MEDS: FUROSEMIDE INJ 40 MG/4 ML VIAL IV PUSH (08:37)
[2022-10-23] MEDS: METOPROLOL SUCCINATE EXT REL 25 MG TABCR PO (08:37)
--- NOTE | 2022-10-23 09:30 | PM.DS ---
DS: Admitting Diagnosis Discharge Date 10/23/22929 Admitting Diagnosis COPD exacerbation, acute on chronic respiratory failure, UTI, CHF exacerbation DS: Discharge Diagnosis Discharge Diagnosis (1) Acute on chronic congestive heart failure: Code(s): I50.9 - Heart failure, unspecified Status: Acute Assessment and Plan: Patient presented with shortness of breath, lower extremity edema. CXR on presentation showed moderate interstitial pulmonary edema with possible small right pleural effusion. BNP 1900 on admission patient has been diuresed with IV Lasix with symptomatic improvement IV Lasix held given elevation in serum creatinine plan to resume home Lasix 20 mg b.i.d. for tomorrow morning if continued improvement in renal function last echo in August 2022 showed EF of 60-65% with grade 1 diastolic dysfunction patient was given 1 dose of Diamox. appears to have chronically elevated serum bicarb lower extremity edema has improved continue to monitor volume status. Monitor I&O and daily weights (2) Acute on chronic respiratory failure with hypoxia and hypercapnia: Code(s): J96.21 - Acute and chronic respiratory failure with hypoxia; J96.22 - Acute and chronic respiratory failure with hypercapnia Status: Acute Assessment and Plan: patient with chronic home oxygen requirement of 5 L, increases up to 8 L with activity. Noted to be hypoxic on presentation at 82% patient initially placed on BiPAP upon review of ABG which demonstrated hypercapnia patient is now maintaining adequate O2 sats on her chronic 5 L supplemental O2 continue home CPAP (3) Chronic obstructive pulmonary disease: Code(s): J44.9 - Chronic obstructive pulmonary disease, unspecified Status: Chronic Assessment and Plan: not in acute exacerbation continue albuterol and Atrovent nebs as needed continue singular supportive care continue supplemental oxygen (4) Iron deficiency anemia: Code(s): D50.9 - Iron deficiency anemia, unspecified Status: Acute Assessment and Plan: patient noted to be anemic with hemoglobin of 6.7 patient transfuse 1 unit packed RBC on 10/21/2022 H&H remaining stable following transfusion Eliquis on hold at this time due to anemia stool occult blood test is negative likely due to iron deficiency. Continue oral iron supplementation trend H&H to ensure remaining stable (5) UTI (urinary tract infection): Code(s): N39.0 - Urinary tract infection, site not specified Status: Acute Assessment and Plan: urinalysis abnormal on presentation. patient isn incontinent and not able to indicate symptoms urine culture with growth of >100k Klebsiella pneumoniae will begin IV ceftriaxone (6) Elevated d-dimer: Code(s): R79.89 - Other specified abnormal findings of blood chemistry Status: Acute Assessment and Plan: D-dimer 1.13 CTA shows no PE Hold home Eliquis since she is now anemic venous Dopplers no DVT noted (7) Acute metabolic encephalopathy: Code(s): G93.41 - Metabolic encephalopathy Status: Acute Assessment and Plan: resolved. Likely due to hypercapnia /hypoxia may have been worsened due to UTI. See above patient A&O x4 this time DS: Summary Hospital Course Hospital Course: Patient is a 62-year-old female with a past medical history of chronic respiratory failure with home O2, a flutter, CHF, CVA, encephalopathy, sepsis who presented the ED at [facility] with complaints of shortness of breath and was transferred to [place] for further evaluation and treatment. Upon arrival to the ED patient was noted to have a saturation in the 80s. Patient called EMS and patient was given Solu-Medrol along with a breathing treatment. Chest x-ray did show moderate CHF. Patient was given IV Lasix at [facility] and is transferred here for further evaluat
--- NOTE | 2022-10-23 09:30 | P.DS_ITS ---
DS: Admitting Diagnosis Discharge Date 10/23/22929 Admitting Diagnosis COPD exacerbation, acute on chronic respiratory failure, UTI, CHF exacerbation DS: Discharge Diagnosis Discharge Diagnosis (1) Acute on chronic congestive heart failure: Code(s): I50.9 - Heart failure, unspecified Status: Acute Assessment and Plan: Patient presented with shortness of breath, lower extremity edema. CXR on presentation showed moderate interstitial pulmonary edema with possible small right pleural effusion. BNP 1900 on admission * patient has been diuresed with IV Lasix with symptomatic improvement * IV Lasix held given elevation in serum creatinine * plan to resume home Lasix 20 mg b.i.d. for tomorrow morning if continued improvement in renal function * last echo in August 2022 showed EF of 60-65% with grade 1 diastolic dysfunction * patient was given 1 dose of Diamox. appears to have chronically elevated serum bicarb * lower extremity edema has improved * continue to monitor volume status. Monitor I&O and daily weights (2) Acute on chronic respiratory failure with hypoxia and hypercapnia: Code(s): J96.21 - Acute and chronic respiratory failure with hypoxia; J96.22 - Acute and chronic respiratory failure with hypercapnia Status: Acute Assessment and Plan: patient with chronic home oxygen requirement of 5 L, increases up to 8 L with activity. Noted to be hypoxic on presentation at 82% * patient initially placed on BiPAP upon review of ABG which demonstrated hypercapnia * patient is now maintaining adequate O2 sats on her chronic 5 L supplemental O2 * continue home CPAP (3) Chronic obstructive pulmonary disease: Code(s): J44.9 - Chronic obstructive pulmonary disease, unspecified Status: Chronic Assessment and Plan: not in acute exacerbation * continue albuterol and Atrovent nebs as needed * continue singular * supportive care * continue supplemental oxygen (4) Iron deficiency anemia: Code(s): D50.9 - Iron deficiency anemia, unspecified Status: Acute Assessment and Plan: patient noted to be anemic with hemoglobin of 6.7 * patient transfuse 1 unit packed RBC on 10/21/2022 * H&H remaining stable following transfusion * Eliquis on hold at this time due to anemia * stool occult blood test is negative * likely due to iron deficiency. Continue oral iron supplementation * trend H&H to ensure remaining stable (5) UTI (urinary tract infection): Code(s): N39.0 - Urinary tract infection, site not specified Status: Acute Assessment and Plan: urinalysis abnormal on presentation. patient isn incontinent and not able to indicate symptoms * urine culture with growth of >100k Klebsiella pneumoniae * will begin IV ceftriaxone (6) Elevated d-dimer: Code(s): R79.89 - Other specified abnormal findings of blood chemistry Status: Acute Assessment and Plan: D-dimer 1.13 * CTA shows no PE * Hold home Eliquis since she is now anemic * venous Dopplers no DVT noted (7) Acute metabolic encephalopathy: Code(s): G93.41 - Metabolic encephalopathy Status: Acute Assessment and Plan: resolved. * Likely due to hypercapnia /hypoxia * may have been worsened due to UTI. See above * patient A&O x4 this time DS: Summary Hospital Course Hospital Course: Patient is a 62-year-old female with a past medical history of chronic respiratory failure with home O2, a flut
[2022-10-23] MEDS: VITAMIN B COMPLEX/VIT C CAPSULE 1 EACH PO (11:11)
[2022-10-23] MEDS: CEFDINIR 300 MG CAPSULE PO (11:11)
[2022-10-23] MEDS: IRON SUCROSE COMPLEX 500 MG in SODIUM CHLORIDE 0.9% IV 250 ML 78.57 MG IVPB (11:31)
[2022-10-23 15:19] VITALS: BP 104/54; PULSE 72; RESP 18; TEMP 36.1; O2SAT 99
== END 2022-10-23 15:50 | disposition home or self-care (01) | DRG 189 ==
LOC: ANHICU 11:52 → ANH3MEDSUR 22:43
PROVIDERS: Physician Assistant; Admitting Provider Chiropractor; PCP Internal Medicine; Visit Provider Nurse Practitioner
DX: J96.22 Acute and chronic respiratory failure with hypercapnia (principal); G93.41 Metabolic encephalopathy; I50.33 Acute on chronic diastolic (congestive) heart failure; N39.0 Urinary tract infection, site not specified; J96.21 Acute and chronic respiratory failure with hypoxia; B96.1 Klebsiella pneumoniae [K. pneumoniae] as the cause of diseases classified elsewhere; D50.9 Iron deficiency anemia, unspecified; G47.33 Obstructive sleep apnea (adult) (pediatric); G25.81 Restless legs syndrome; J44.9 Chronic obstructive pulmonary disease, unspecified; R79.89 Other specified abnormal findings of blood chemistry; Z79.01 Long term (current) use of anticoagulants; Z99.81 Dependence on supplemental oxygen; Z86.73 Personal history of transient ischemic attack (TIA), and cerebral infarction without residual deficits
CPT/HCPCS: 36415; 36430; 36600; 71275; 80048; 80053; 82274; 82375; 82805; 83050; 83735; 85014; 85018; 85025; 85027; 86850; 86900; 86901; 86923; 93970; 94002; 94660; 97161; A9270; J0696; J1120; J1756; J1940; J3475; J7050; P9016; Q9967

== ENCOUNTER 2023-04-06 20:41 | Emergency (ER) | payer OTHER, SELFPAY ==
[2023-04-06] VITALS (16 sets, daily range): BP systolic 94–135; BP diastolic 47–80; PULSE 92–109; RESP 14–20; TEMP 36.4; O2SAT 78–100
--- NOTE | ~2023-04-06 | XR_ITS ---
EXAMINATION: XR chest 1V portable Exam Date/Time: 04/06/2023 21:00 CDT HISTORY: COUGH Comparison: 10/20/2022. RESULT: Lines, tubes, and devices: None. Lungs and pleura: Suggestion of reticulonodular opacities in the right lower lung. Cardiomediastinal silhouette: Stable. Other: No acute osseous or upper abdominal finding. IMPRESSION: Pulmonary opacities may represent bronchiolitis, as can be seen with atypical infection, asthma, aspi ration, and small airways disease. Reviewed, dictated and finalized at location K. IMPRESSION: Pulmonary opacities may represent bronchiolitis, as can be seen with atypical i nfection, asthma, aspiration, and small airways disease.
--- NOTE | ~2023-04-06 | CT_ITS ---
EXAMINATION: CT chest abdomen pelvis w con DATE: 04/06/2023 22:04 INDICATION: Chest pain, Abdominal pain, hypotension . TECHNIQUE: Computed tomography (CT) of the chest, abdomen, and pelvis was performed with 100 mL Omnip aque-350 intravenous contrast. Automated exposure control and iterative reconstruction technique were employed. The dose-length product was 1932.17 mGy-cm. COMPARISON: 09/10/2022; CTPA 08/19/2023 FINDINGS: CHEST: Thoracic aorta: Mild arch calcification. Lung parenchyma and airways: Emphysematous change. Bibasilar scar/atelectasis, including a focus of r ounded atelectasis in the right medial lower lung. Thoracic inlet, axillae and chest wall: No thyroid or soft tissue mass. No axillary lymphadenopathy. Mediastinum: Stable mediastinal and right hilar lymphadenopathy.. Heart and pericardium: Normal heart size. Aortic valve calcification. No pericardial effusion. Coronary artery calcifications: Mild. Pleura: No effusion or mass. Thoracic bones: No acute osseous finding in the chest. Multiple left-sided healed rib fractures. ABDOMEN/PELVIS: Liver: Normal. Biliary/Gallbladder: Gallbladder is absent. No bile duct dilation. Pancreas: No mass or duct dilation. Spleen: Normal. Adrenals:No mass. Kidneys: Bilateral cortical atrophy and scarring, no suspicious mass or hydronephrosis. GI tract: No small or large bowel dilation. Normal appendix. Diverticulosis without diverticulitis. Mesentery/Peritoneum: No ascites, mass, or free air. Retroperitoneum: No mass Atherosclerotic abdominal aortic and/or arterial calcifications. Pelvis: Pelvic organs are within normal limits Soft Tissues: 8.0 x 17.4 x 15.0 cm heterogeneous collection in the left rectus abdominis muscle, mackenzie ed thickening of the left anterior abdominal wall, with significant surrounding subcutaneous strandin g. Abdominopelvic bones: No acute osseous finding in the abdomen/pelvis. IMPRESSION: Large left rectus abdominis intramuscular hematoma measuring up to 15.0 cm, with considerable surroun ding soft tissue hemorrhage/fluid in the left anterior abdominal wall. No active extravasation detect ed. Reviewed, dictated and finalized at location K. IMPRESSION: Large left rectus abdominis intramuscular hematoma measuring up to 15.0 cm, wit h considerable surrounding soft tissue hemorrhage/fluid in the left anterior ab dominal wall. No active extravasation detected.
--- NOTE | 2023-04-06 20:51 | ECG_ITS ---
Measurements Intervals [place] Rate: 100 P: 60 [place]: 132 QRS: 53 QRSD: 142 T: 32 QT: 349 QTc: 452 Interpretive Statements SINUS TACHYCARDIA RIGHT BUNDLE BRANCH BLOCK COMPARED TO ECG 10/20/2022 07:46:02 SINUS TACHYCARDIA NOW PRESENT Electronically Signed On 04-07-2023 14:37:34 CDT by Bg Chaparro M.D.
--- NOTE | 2023-04-06 21:02 | ED.GENADULT ---
HPI - General Adult General Chief complaint: Weakness Stated complaint: HYPOTENSIVE, ABD PAIN, N/V Time Seen by Provider: 04/06/23 21:00 History of Present Illness HPI narrative: This is a 63-year-old female presenting to ED for abdominal pain and hypertension. Patient states that earlier today she was coughing and felt something pop in the left side of her abdomen. She then called her who called EMS. When [facility] arrived the patient was pale clammy diaphoretic with a blood pressure of 70/40. She is given a small fluid bolus and brought to the hospital. At this time the patient says she does not have pain anywhere. She denies fever chills headache chest pain difficulty breathing or abdominal pain. She does say that her abdomen is more distended than usual. Related Data Home Medications Medication Instructions Recorded Confirmed escitalopram oxalate 20 mg tablet 20 mg PO DAILY 09/07/21 10/20/22 montelukast 10 mg tablet 10 mg PO DAILY 09/07/21 10/20/22 omeprazole 40 mg capsule,delayed 40 mg PO DAILY 09/07/21 10/20/22 release trazodone 50 mg tablet 50 mg PO HS 09/07/21 10/20/22 B-complex with vitamin C 1 cap PO DAILY 10/09/22 10/20/22 Saccharomyces boulardii 250 mg 250 mg PO BID 10/09/22 10/20/22 capsule bisacodyl 10 mg rectal suppository 10 mg RECTAL DAILY PRN Constipation 10/09/22 10/20/22 cholecalciferol (vitamin D3) 100 100 mcg PO DAILY 10/09/22 10/20/22 mcg (4,000 unit) tablet magnesium citrate (Citroma oral 300 ml PO DAILY PRN Constipation 10/09/22 10/20/22 solution) magnesium hydroxide 400 mg/5 mL 30 ml PO HS PRN Constipation 10/09/22 10/20/22 oral suspension (Milk of Magnesia) melatonin 5 mg capsule 5 mg PO HS PRN Insomnia 10/09/22 10/20/22 quetiapine 25 mg tablet 25 mg PO HS 10/09/22 10/20/22 sodium phosphates 19 gram-7 118 ml RECTAL ONCE 10/09/22 10/20/22 gram/118 mL enema (Fleet Enema) amitriptyline 10 mg tablet 10 mg PO HS 10/20/22 10/20/22 ropinirole 4 mg tablet 4 mg PO HS 10/20/22 10/20/22 topiramate 100 mg tablet 200 mg PO BID 10/20/22 10/20/22 Allergies Allergy/AdvReac Type Severity Reaction Status Date / Time No Known Drug Allergies Allergy Unknown Verified 04/06/23 20:57 [facility] Past Medical History Medical History 2018 novel coronavirus-infected pneumonia (NCIP) Acute exacerbation of chronic obstructive pulmonary disease Acute kidney injury Acute on chronic respiratory failure with hypoxia and hypercapnia Atrial flutter with rapid ventricular response Bacteremia C. difficile colitis Cerebrovascular accident Chronic anticoagulation Chronic obstructive pulmonary disease Congestive heart failure COPD (chronic obstructive pulmonary disease) Diastolic dysfunction Echo in August 2022 showed normal LV function with an EF of 60 to 65%, grade 1 diastolic dysfunction, moderate enlarged right ventricular chamber, normal right ventricular systolic function, moderate tricuspid valve regurgitation, and pulmonary hypertension with an estimated PASP of 59 mmHg. Encephalopathy Gastroesophageal reflux disease Jugular vein thrombosis Normocytic anemia Obesity (BMI 30-39.9) Pneumonia Renal failure Requiring temporary dialysis and CRRT in 09/15. Sepsis Shock Staphylococcus epidermidis bacteremia (08/2022) Urinary tract infection Surgical History Surgical History History of 3 sections History of cholecystectomy History of left knee replacement Family History Family History Father Hypertension Acute myocardial infarction Sibling Hypertension Mother Family history of heart disease in male family member before age 55 Brother Acute myocardial infarction Father Acute myocardial infarction Other Cerebrovascular accident Family history of cardiovascular disease Social History Social History (Reviewed 04/06/23
[2023-04-06] MEDS: SODIUM CHLORIDE 0.9% IV 2,000 ML 999 ML IV CONT (21:03)
[2023-04-06 21:06] LABS: Hematocrit 23.8 % (37.0-47.0); Mean Corpuscular Hemoglobin 26.8 pg (26-34); Mean Corpuscular Volume 92.6 fl (80-100); Platelet Count Result 474 k/mm3 (150-375); Red Blood Count 2.57 M/mm3 (4.2-5.4); Red Cell Distribution Width 14.4 % (11.5-14.5); White Blood Count 43.7 K/mm3 (4.5-10.0)
[2023-04-06 21:15] LABS: Alanine Aminotransferase 19 U/L (6-35); Albumin Level 3.4 g/dL (3.5-5.1); Alkaline Phosphatase 57 U/L (38-126); Anion Gap 7 mmol/L (8-16); Aspartate Amino Transferase 19 U/L (14-36); Bilirubin,Total 0.3 mg/dL (0.2-1.3); Blood Urea Nitrogen 30 mg/dL (7-17); Calcium 8.5 mg/dL (8.4-10.2); Carbon Dioxide 33 mmol/L (22-30); Chloride 88 mmol/L (98-107); Estimated CRCL calculation 37 ml/min; Estimated Glomerular Filt Rate 27; Glucose 204 mg/dL (65-110); Potassium 5.6 mmol/L (3.4-5.0); Sodium 128 mmol/L (137-145)
[2023-04-06 21:18] LABS: INR 1.1
[2023-04-06 21:19] LABS: Partial Thromboplastin Time 30.3 SECONDS (22.3-36.8)
[2023-04-06 21:23] LABS: Hemoglobin 6.9 g/dL (12.0-15.0)
[2023-04-06] MEDS: IPRATROPIUM BR 0.02% INH SOLN 0.5 MG/2.5 ML VIAL INHALATION (21:23)
[2023-04-06] MEDS: ALBUTEROL SULFATE NEB 2.5 MG/3 ML INH 5 MG INHALATION (21:23)
[2023-04-06 21:27] LABS: NT Pro B Type Natriuretic Pept 793 pg/mL (19.9-100); Troponin I 0.024 ng/mL (0.000-0.034)
[2023-04-06] MEDS: ONDANSETRON INJ 4 MG/2 ML VIAL IV PUSH (21:27)
[2023-04-06] MEDS: SODIUM CHLORIDE 0.9% IV 1,000 ML 999 ML IV CONT (21:27)
[2023-04-06 21:28] LABS: Band Neutrophils Percent 2 % (0-6); Total Cells Counted 100
[2023-04-06 21:29] LABS: Lymphocytes Absolute Manual 1.74 K/mm3 (1.1-4.5); Lymphocytes Percent Manual 4 % (18-44); Metamyelocytes Percent 1 %; Monocytes Absolute Manual 2.62 K/mm3 (0.1-0.90); Monocytes Percent Manual 6 % (3-9); Myelocytes Percent 1 %; Neutrophils Absolute Manual 38.45 K/mm3 (1.7-7.2); Neutrophils Percent Manual 86 % (46-73); Platelet Estimate Increased (Adequate); Schistocytes None Seen (NORMAL)
[2023-04-06 22:05] LABS: Lactic Acid Reflex 4.7 mmol/L (0.7-2.0)
[2023-04-06 22:17] LABS: Creatine Kinase 20 U/L (30-135); Lipase 133 U/L (23-300); Magnesium 1.8 mg/dL (1.6-2.3); Phosphorus 3.5 mg/dL (2.5-4.5)
[2023-04-06 22:24] LABS: Influenza A QL RT-PCR Negative (Negative); Influenza B QL RT-PCR Negative (Negative); RSV RNA, RT-PCR Negative (Negative); SARS-CoV-2 RNA PCR Negative (Negative)
[2023-04-06 22:27] LABS: Glucose Point of Care 145 mg/dl (65-105)
[2023-04-06 23:32] LABS: Appearance Urine Cloudy (Clear); Bacteria Urine None Seen /hpf; Bilirubin Urine Negative (Negative); Blood Urine Negative (Negative); Calcium Oxalate Crystals Urine Present /hpf; Color Urine Yellow (Yellow); Glucose Urine UA Negative (Negative); Ketones Urine Negative (Negative); Leukocyte Esterase Ur Negative LEU/UL (Negative); Mucus Urine Present /lpf; Need Manual Microscopic Reviewed; Nitrate Urine Negative (Negative); Non Pathogenic Casts >20; Protein Urine Trace mg/dL (Negative); RBC Urine 0-2 /hpf (0-2); Squamous Epithelial Cell Urine None seen /hpf (Few); Urobilinogen Urine 0.2 mg/dL (<2.0); WBC Urine 0-5 /hpf
[2023-04-06 23:33] LABS: Add Urine Microscopic? YES; Specific Grav Ur 1.044 (1.001-1.035)
[2023-04-06] MEDS: HUMAN PROTHROMBIN COMPLEX(PCC) 5,000 UNITS in PREMIXIV 0 ML 504 UNITS IV CONT (23:37)
[2023-04-06] MEDS: INSULIN HUMAN REGULAR (*BKC) 100 UNITS/ML 10 UNITS IV PUSH (23:41)
[2023-04-06] MEDS: DEXTROSE 50% 25 GM/50 ML SYRINGE IV PUSH (23:42)
[2023-04-07] VITALS (32 sets, daily range): BP systolic 97–150; BP diastolic 59–110; PULSE 92–106; RESP 12–23; TEMP 36.4–36.5; O2SAT 79–100
[2023-04-07] MEDS: SODIUM ZIRCONIUM CYCLOSILICATE 10 GM POWD.PACK PO (00:38)
[2023-04-07 00:45] LABS: Reflex Lactic Acid Yes or No Add Lactic
[2023-04-07] MEDS: SODIUM CHLORIDE 0.9% IV 250 ML 30 ML IV CONT (01:00)
[2023-04-07] MEDS: TUBING, BLOOD PLUM PUMP TUBING 1 EACH XX (01:04)
== END 2023-04-07 03:54 | disposition short-term general hospital (02) ==
PROVIDERS: Emergency Provider Emergency Medicine; PCP Internal Medicine
DX: S30.1XXA Contusion of abdominal wall, initial encounter (principal); D64.9 Anemia, unspecified; E86.0 Dehydration; Z20.822 Contact with and (suspected) exposure to COVID-19; J44.9 Chronic obstructive pulmonary disease, unspecified; J96.10 Chronic respiratory failure, unspecified whether with hypoxia or hypercapnia; I48.92 Unspecified atrial flutter; I50.9 Heart failure, unspecified; K21.9 Gastro-esophageal reflux disease without esophagitis; E66.9 Obesity, unspecified; Z68.41 Body mass index [BMI] 40.0-44.9, adult; Z96.652 Presence of left artificial knee joint; Z87.440 Personal history of urinary (tract) infections; Z86.73 Personal history of transient ischemic attack (TIA), and cerebral infarction without residual deficits; Z87.891 Personal history of nicotine dependence; Z86.16 Personal history of COVID-19; Z87.01 Personal history of pneumonia (recurrent); Z90.49 Acquired absence of other specified parts of digestive tract; Z79.01 Long term (current) use of anticoagulants; I45.10 Unspecified right bundle-branch block; R00.0 Tachycardia, unspecified; X50.9XXA Other and unspecified overexertion or strenuous movements or postures, initial encounter
CPT/HCPCS: 36415; 36430; 71045; 71260; 74177; 80053; 81001; 82550; 82948; 83605; 83690; 83735; 83880; 84100; 84443; 84484; 85025; 85610; 85730; 86850; 86900; 86901; 86923; 87040; 87637; 93005; 94640; 96361; 96365; 96375; 99285; A9270; J1815; J2405; J7030; J7050; J7168; P9016; Q9967

== ENCOUNTER 2023-07-13 12:51 | Emergency (ER) | payer OTHER, SELFPAY ==
[2023-07-13] VITALS (39 sets, daily range): BP systolic 91–173; BP diastolic 66–117; PULSE 90–106; RESP 13–20; TEMP 36.1–36.6; O2SAT 87–100
--- NOTE | ~2023-07-13 | CT_ITS ---
EXAMINATION: CT abdomen pelvis w con DATE: 07/13/2023 14:37 INDICATION: Right-sided abdominal pain for 2 days. TECHNIQUE: Computed tomography (CT) of the abdomen and pelvis was performed with 100 cc Omnipaque 350 intravenous contrast. The dose-length product was 1550.94 mGy-cm. Automated exposure control and ite rative reconstruction technique were employed. COMPARISON: CT dated 04/06/2013. FINDINGS: There is a large right rectus sheath hematoma with extension into the peritoneum. Mild mass effect on the bladder. No evidence for active extravasation. Dependent atelectasis. Heart size normal. Fatty infiltration of the liver. The spleen, pancreas, adre nal glands and kidneys are unremarkable. No significant vascular abnormality. No lymphadenopathy. Col onic diverticulosis without diverticulitis. IMPRESSION: 1. Large right rectus sheath hematoma with intraperitoneal extension causing mild mass effect on the bladder. No evidence for active extravasation. Interval resolution of left rectus sheath hematoma sin ce 04/06/2023 examination. Reviewed, dictated and finalized at location B. TER ASSEMBLER IMPRESSION: 1. Large right rectus sheath hematoma with intraperitoneal extension causing mi ld mass effect on the bladder. No evidence for active extravasation. Interval r esolution of left rectus sheath hematoma since 04/06/2023 examination.
--- NOTE | 2023-07-13 13:07 | ED.ABDPAIN ---
HPI - Abdominal Pain General Chief Complaint: Abdominal Pain Stated Complaint: R abdominal pain Time Seen by Provider: 07/13/23 13:06 History of Present Illness HPI narrative: 63 years old white female came from home by ambulance complaining of right abdominal pain started 2-3 days ago. aching , no radiation, associated with nausea and vomiting once on arrival to the ED. History of dehydration, COPD on 5 L oxygen by nasal cannula, congestive heart failure, chronic anticoagulation, CVA, C diff, GERD, jugular vein thrombosis, normocytic anemia, obesity, pneumonia, renal failure, urinary tract infection Related Data Home Medications Medication Instructions Recorded Confirmed escitalopram oxalate 20 mg tablet 20 mg PO DAILY 09/07/21 10/20/22 montelukast 10 mg tablet 10 mg PO DAILY 09/07/21 10/20/22 omeprazole 40 mg capsule,delayed 40 mg PO DAILY 09/07/21 10/20/22 release trazodone 50 mg tablet 50 mg PO HS 09/07/21 10/20/22 B-complex with vitamin C 1 cap PO DAILY 10/09/22 10/20/22 Saccharomyces boulardii 250 mg 250 mg PO BID 10/09/22 10/20/22 capsule bisacodyl 10 mg rectal suppository 10 mg RECTAL DAILY PRN Constipation 10/09/22 10/20/22 cholecalciferol (vitamin D3) 100 100 mcg PO DAILY 10/09/22 10/20/22 mcg (4,000 unit) tablet magnesium citrate (Citroma oral 300 ml PO DAILY PRN Constipation 10/09/22 10/20/22 solution) magnesium hydroxide 400 mg/5 mL 30 ml PO HS PRN Constipation 10/09/22 10/20/22 oral suspension (Milk of Magnesia) melatonin 5 mg capsule 5 mg PO HS PRN Insomnia 10/09/22 10/20/22 quetiapine 25 mg tablet 25 mg PO HS 10/09/22 10/20/22 sodium phosphates 19 gram-7 118 ml RECTAL ONCE 10/09/22 10/20/22 gram/118 mL enema (Fleet Enema) amitriptyline 10 mg tablet 10 mg PO HS 10/20/22 10/20/22 ropinirole 4 mg tablet 4 mg PO HS 10/20/22 10/20/22 topiramate 100 mg tablet 200 mg PO BID 10/20/22 10/20/22 Allergies Allergy/AdvReac Type Severity Reaction Status Date / Time No Known Drug Allergies Allergy Unknown Verified 07/13/23 13:02 Review of Systems Review of Systems: All systems reviewed & are unremarkable except as noted in HPI and below PMFSH Past Medical History Medical History 2018 novel coronavirus-infected pneumonia (NCIP) Acute exacerbation of chronic obstructive pulmonary disease Acute kidney injury Acute on chronic respiratory failure with hypoxia and hypercapnia Atrial flutter with rapid ventricular response Bacteremia C. difficile colitis Cerebrovascular accident Chronic anticoagulation Chronic obstructive pulmonary disease Congestive heart failure COPD (chronic obstructive pulmonary disease) Diastolic dysfunction Echo in August 2022 showed normal LV function with an EF of 60 to 65%, grade 1 diastolic dysfunction, moderate enlarged right ventricular chamber, normal right ventricular systolic function, moderate tricuspid valve regurgitation, and pulmonary hypertension with an estimated PASP of 59 mmHg. Encephalopathy Gastroesophageal reflux disease Jugular vein thrombosis Normocytic anemia Obesity (BMI 30-39.9) Pneumonia Renal failure Requiring temporary dialysis and CRRT in 09/15. Sepsis Shock Staphylococcus epidermidis bacteremia (08/2022) Urinary tract infection Surgical History Surgical History History of 3 sections History of cholecystectomy History of left knee replacement Family History Family History Father Hypertension Acute myocardial infarction Sibling Hypertension Mother Family history of heart disease in male family member before age 55 Brother Acute myocardial infarction Father Acute myocardial infarction Other Cerebrovascular accident Family history of cardiovascular disease Social History Social History Social History: Surrogate med
--- NOTE | 2023-07-13 13:11 | PC.NURSE ---
Patient is on baseline home o2 at 5L
[2023-07-13] MEDS: SODIUM CHLORIDE 0.9% IV 1,000 ML 999 ML IV CONT (13:20)
[2023-07-13] MEDS: ONDANSETRON INJ 4 MG/2 ML VIAL IV PUSH (13:21)
[2023-07-13] MEDS: HYDROmorphone HCL INJ (*CRX) 2 MG/ML VIAL 0.5 MG IV PUSH ×2 (13:21→15:39)
[2023-07-13 13:27] LABS: Hematocrit 32.3 % (35.0-42.0); Hemoglobin 9.8 g/dL (11.7-13.8); Mean Corpuscular HGB Conc 30.3 g/dL (32.0-36.0); Mean Corpuscular Hemoglobin 26.8 pg (27.0-31.0); Mean Corpuscular Volume 88.3 fL (78.0-102.0); Mean Platelet Volume 8.9 fl (9.2-11.8); Platelet Count Result 323 K/mm3 (150-420); Red Blood Count 3.66 M/mm3 (4.20-5.40); Red Cell Distribution Width 13.6 % (11.6-14.4)
[2023-07-13 13:28] LABS: White Blood Count 22.6 K/mm3 (4.8-10.8)
[2023-07-13 13:40] LABS: Appearance Urine Clear (Clear); Bilirubin Urine Negative (Negative); Blood Urine Negative (Negative); Color Urine Light Yellow (Yellow); Glucose Urine UA Negative (Negative); Ketones Urine Negative (Negative); Leukocyte Esterase Ur 2+ LEU/UL (Negative); Nitrate Urine Negative (Negative); Protein Urine Negative (Negative); Urobilinogen Urine 0.2 mg/dL (0.2-1.0)
[2023-07-13 13:41] LABS: Band Neutrophils Percent 0 % (0-6); Basophils Percent Manual 0 % (0-1); Eosinophils Percent Manual 0 % (1-6); Lymphocytes Absolute Manual 1.58 K/mm3 (1.1-4.5); Lymphocytes Percent Manual 7 % (18-44); Monocytes Absolute Manual 0.67 K/mm3 (0.1-0.90); Monocytes Percent Manual 3 % (3-9); Neutrophils Absolute Manual 20.34 K/mm3 (1.7-7.2); Neutrophils Percent Manual 90 % (46-73); Platelet Estimate Adequate (Adequate); Total Cells Counted 100
[2023-07-13 13:43] LABS: Lactic Acid Reflex 2.9 mmol/L (0.4-2.0)
[2023-07-13 13:45] LABS: Add Urine Microscopic? YES; Bacteria Urine 4+ /hpf; RBC Urine None seen /hpf (0-2); Squamous Epithelial Cell Urine Few /hpf (Few)
[2023-07-13 13:58] LABS: Alanine Aminotransferase 13 U/L (14-59); Albumin Level 2.8 g/dL (3.4-5.0); Alkaline Phosphatase 94 U/L (46-116); Anion Gap 3 mmol/L (8-16); Aspartate Amino Transferase < 10 U/L (15-37); Bilirubin,Total 0.3 mg/dL (0.00-1.00); Blood Urea Nitrogen 23 mg/dL (7-18); Calcium 9.1 mg/dL (8.5-10.1); Carbon Dioxide 40 mmol/L (21-32); Chloride 91 mmol/L (98-108); Estimated Glomerular Filt Rate 34; Glucose 176 mg/dL (70-99); Lipase 32 U/L (16-77); Osmolality Calculated 285 mOsm/kg (285-295); Potassium 3.7 mmol/L (3.5-5.1); Sodium 134 mmol/L (136-145)
--- NOTE | 2023-07-13 14:10 | PC.NURSE ---
Patient taken down to Ct.
--- NOTE | 2023-07-13 14:32 | PC.NURSE ---
Patient back in room from Ct.
--- NOTE | 2023-07-13 15:40 | PC.NURSE ---
Lab has been notified of blood cultures, will start antibiotic once drawn.
--- NOTE | 2023-07-13 15:45 | PC.NURSE ---
lab is finished with blood cultures, will start antibiotics at this time.
[2023-07-13 16:23] LABS: Reflex Lactic Acid Yes or No Add Lactic
[2023-07-13 16:27] LABS: Lactic Acid 1.6 mmol/L (0.4-2.0)
--- NOTE | 2023-07-16 17:15 | PCDIET ---
pt transferred to [facility] in [place]. room 460. charge nurse, kathie, contacted and final urine culture report shared, >100,000 E. coli. RBV completed.
--- NOTE | 2023-07-19 12:39 | PC.NURSE ---
Final blood culture result: no growth after 5 days, no further action or treatment needed at this time.
== END 2023-07-13 18:25 | disposition short-term general hospital (02) ==
PROVIDERS: Emergency Provider Emergency Medicine; PCP Internal Medicine
DX: S30.1XXA Contusion of abdominal wall, initial encounter (principal); D72.829 Elevated white blood cell count, unspecified; R05.9 Cough, unspecified; N39.0 Urinary tract infection, site not specified; J44.9 Chronic obstructive pulmonary disease, unspecified; Z99.81 Dependence on supplemental oxygen; I50.9 Heart failure, unspecified; Z86.73 Personal history of transient ischemic attack (TIA), and cerebral infarction without residual deficits; Z87.891 Personal history of nicotine dependence; X58.XXXA Exposure to other specified factors, initial encounter
CPT/HCPCS: 11740; 36415; 74177; 80053; 81001; 83605; 83690; 85025; 87040; 87077; 87086; 87088; 87186; 96361; 96365; 96375; 99285; J0696; J1170; J2405; J7030; Q9967

== ENCOUNTER 2023-10-15 08:58 | Outpatient (CLI) | payer MEDICARE, MEDICAID, SELFPAY ==
--- NOTE | ~2023-10-15 | US_ITS ---
EXAMINATION: US venous doppler UE DATE: 10/15/2023 INDICATION: History of bilateral jugular vein thrombosis, request for scanner proximal veins only COMPARISON: 08/30/2022 TECHNIQUE: Grayscale ultrasound images without and with compression and Doppler ultrasound images of the bilateral upper extremity veins were obtained. COMPARISON: None. FINDINGS: There is chronic eccentric thrombosis in the right internal jugular vein. The right subclavian vein a nd axillary vein are patent. The left internal jugular vein, subclavian vein, and axillary vein are patent. IMPRESSION: 1. 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 2. No central left venous thrombosis. Reviewed, dictated and finalized at location L. ILLERY MILLER
--- NOTE | ~2023-10-15 | CT_ITS ---
CT of the Abdomen and Pelvis: Indication: Hematoma Technique: 2.5 mm axial scans were obtained through the abdomen and pelvis following intravenous adm inistration of 100 cc of Omnipaque 350. Dose reduction technique was used on this scan by utilizing a utomated exposure control and iterative reconstruction technique. The dose-length product (DLP) was 1 641.25 mGy-cm. COMPARISON: 07/13/2023 Findings: Scans through the lung bases are unremarkable. The liver, spleen, pancreas, adrenals and kidneys are within normal limits. Patient is status post ch olecystectomy. There are atherosclerotic calcifications of the aorta. No lymphadenopathy. No bowel obstruction or bowel wall thickening. There is no evidence to suggest acute appendicitis. Sm all residual hematoma present at the right rectus abdominis musculature as compared to prior exam, no w measuring approximately 2.9 x 1.9 cm. Images through the pelvis were performed. Questionable mild urinary bladder wall thickening. No pelvi c mass. No ascites. Impression: Small residual hematoma in the right rectus abdominis musculature, as detailed above, markedly decrea sed from prior exam. Reviewed, dictated and finalized at location . [employer]OR ASSEMBLER Impression: Small residual hematoma in the right rectus abdominis musculature, as detailed above, markedly decreased from prior exam.
[2023-10-15 09:23] LABS: Estimated Glomerular Filt Rate 45
== END 2023-10-15 08:59 | disposition home or self-care (01) ==
LOC: CHSIMG 09:02
PROVIDERS: PCP Internal Medicine; Visit Provider Internal Medicine Hematology
DX: I82.C21 Chronic embolism and thrombosis of right internal jugular vein (principal); S30.1XXA Contusion of abdominal wall, initial encounter
CPT/HCPCS: 74177; 93970; Q9967

== ENCOUNTER 2023-12-17 10:03 | Outpatient (CLI) | payer OTHER, SELFPAY ==
--- NOTE | ~2023-12-17 | CT_ITS ---
CT Scan of the Chest without Contrast: Clinical Indication: Lung cancer screening, nicotine dependence Technique: Contiguous sections were acquired throughout the chest without intravenous contrast. Dose reduction technique was used on this scan by utilizing automated exposure control and iterative recon struction technique. The dose-length product (DLP) was 341.26 mGy-cm. COMPARISON: 04/06/2023 Findings: Stable enlarged left thyroid lobe. There is no evidence of any significant mediastinal, hilar or axillary lymphadenopathy. Atherosclerot ic calcifications of the aorta are present. There is no evidence of pleural or pericardial effusion. There is irregular airspace opacity in the posterior right lower lobe, improved from prior exam, like ly representing postinflammatory change, as there is a previous more extensive area of consolidation in this location. Mild emphysema. Images through the upper abdomen reveal no abnormalities. Impression: Lung RADS 2: Benign appearance. 12 month follow-up screening CT advised. Reviewed, dictated and finalized at location . Impression: Lung RADS 2: Benign appearance. 12 month follow-up screening CT advised.
== END 2023-12-17 10:04 | disposition home or self-care (01) ==
PROVIDERS: PCP Internal Medicine; Visit Provider Internal Medicine Hematology
DX: Z12.2 Encounter for screening for malignant neoplasm of respiratory organs (principal); Z87.891 Personal history of nicotine dependence
CPT/HCPCS: 71271

== ENCOUNTER 2024-12-01 20:35 | Inpatient (IN) | payer MEDICARE, MEDICAID, SELFPAY ==
[2024-12-01] VITALS (8 sets, daily range): BP systolic 98–142; BP diastolic 63–106; PULSE 104–115; RESP 16–23; TEMP 37.7–39.4; O2SAT 92–99
--- NOTE | ~2024-12-01 | US_ITS ---
US renal BI Ordering provider: Sy Osborne MD History: . FARZANEH/ARF . Comparison: None. Technique: Ultrasound bilateral kidneys. Findings: RIGHT KIDNEY: Measures 11.6x 4.9x 5.3 cm in length which is normal in size. No renal cysts. No renal mass or visualized echogenic stones. Otherwise, normal echotexture and contour. No hydronephrosis. No rmal renal cortical thickness. LEFT KIDNEY: Measures 10.6x 5x 4.6 cm in length which is normal in size. No renal cysts. No renal mas s or visualized echogenic stones. Otherwise, normal echotexture and contour. No hydronephrosis. Chiara l renal cortical thickness. BLADDER: Normal. Ureteral jets were not seen bilaterally. IMPRESSION: Normal study. Reviewed, dictated and finalized at location A. IMPRESSION: Normal study.
--- NOTE | ~2024-12-01 | US_ITS ---
EXAMINATION: US venous doppler [facility] DATE: 12/02/2024 16:19 INDICATION: Upper extremity swelling TECHNIQUE: Grayscale images without and with compression and Doppler images of the bilateral upper ex tremity veins were obtained. COMPARISON: None. FINDINGS: The right internal jugular vein, subclavian vein, axillary vein, brachial vein, basilic vein, cephali c vein, radial vein, and ulnar vein are patent. The left internal jugular vein, subclavian vein, axillary vein, brachial vein, basilic vein, cephalic vein, radial vein, and ulnar vein are patent. IMPRESSION: 1. Patent bilateral upper extremity veins. No evidence of venous thrombosis. Reviewed, dictated and finalized at location A.
--- NOTE | ~2024-12-01 | XR_ITS ---
Portable chest x-ray Comparison: 12/01/2024 Clinical History: CHF, pneumonia Findings: Probable minimal bibasilar pulmonary edema with discoid left basilar atelectasis. Cardiom ediastinal silhouette is stable. Bones and soft tissues are unremarkable. Impression: Probable minimal bibasilar pulmonary edema with discoid left basilar atelectasis. Reviewed, dictated and finalized at location . Impression: Probable minimal bibasilar pulmonary edema with discoid left basilar atelectasi s.
--- NOTE | ~2024-12-01 | US_ITS ---
EXAMINATION: US venous doppler [facility] DATE: 12/02/2024 16:18 INDICATION: Lower limb swelling TECHNIQUE: Grayscale ultrasound images without and with compression and Doppler ultrasound images of the bilateral lower extremity veins were obtained. COMPARISON: None. FINDINGS: The visualized portions of right common femoral vein, profunda (deep) femoral vein, femoral vein, pop liteal vein, posterior tibial veins, peroneal veins and greater saphenous vein outflow are patent. The visualized portions of left common femoral vein, profunda femoral vein, femoral vein, popliteal v ein, posterior tibial veins, peroneal veins and greater saphenous vein outflow are patent. IMPRESSION: 1. No deep venous thrombosis in either lower limb. Reviewed, dictated and finalized at location A.
--- NOTE | ~2024-12-01 | XR_ITS ---
XR chest 1V portable Ordering provider: Khai Galindo MD History: 64 years Female with . dyspnea . Comparison: April 06, 2023 FINDINGS: MEDIASTINUM: The cardiac silhouette is slightly enlarged. Congestive sully. LUNGS: No effusions or pneumothorax. Bilateral interstitial thickening suggestive of pulmonary edema versus pneumonitis more prominent in the lower lobes. OTHER: No free air under the diaphragm. IMPRESSION: Cardiomegaly with cardiac decompensation and pulmonary edema. Pneumonitis in the lower lobes is not e xcluded Reviewed, dictated and finalized at location A. IMPRESSION: Cardiomegaly with cardiac decompensation and pulmonary edema. Pneumonitis in th e lower lobes is not excluded
--- NOTE | ~2024-12-01 | CT_ITS ---
CTA chest PE protocol Ordering provider: Zay Gray MD History: 64 years Female with . R/O PE . Comparison: None. Technique: CT angiogram chest was performed following timed intravenous injection of contrast. Thin s lice axial images and reformatted coronal images were obtained. Three dimensional reformatted images of the chest were also obtained using a [employer] workstation. . Automated exposure control and iterati ve reconstruction technique were employed. The dose-length product was 1038.26 mGy-cm. 100 mL Omnipaq ue 350 was given IV. Findings: PULMONARY ARTERIES: No pulmonary embolus. VISUALIZED THORACIC INLET: Left thyroid nodule is noted. Ultrasound evaluation advised. MEDIASTINUM: Aorta/coronary arteries: Mild atheromatous disease. Heart/other: The heart is not enlarged. Lymph nodes: No mediastinal or hilar adenopathy. Precarinal lymph node measuring 1.6 cm noted. LUNGS: Atelectasis versus pneumonia seen in the right lung base inferiorly. Minimal atelectasis versus pneum onia in the left lung base is also noted. No pulmonary nodules or masses. No effusions. No pneumothor ax. VISUALIZED UPPER abdomen: the visualized upper abdomen is normal. MUSCULOSKELETAL: Soft tissues: The superficial soft tissues are normal. Bones: Age appropriate degenerative changes of the spine. IMPRESSION: 1. No pulmonary embolism. 2. Bilateral basal atelectasis versus pneumonia. Clinical correlation advised. Reviewed, dictated and finalized at location A.
--- NOTE | 2024-12-01 20:59 | ECG_ITS ---
Test Date: 2024-12-01 21:07:02 Measurements Intervals [place] Rate: 110 P: 0 KS: 0 QRS: 28 QRSD: 142 T: 37 QT: 335 QTc: 453 Interpretive Statements SINUS TACHYCARDIA WITH FREQUENT ATRIAL PREMATURE COMPLEXES RIGHT BUNDLE BRANCH BLOCK BASELINE ARTIFACT- II, AVF, V4-V6 ABNORMAL ECG No previous ECG available for comparison Electronically Signed On 12-02-2024 06:20:10 CDT by Hong Meade D.O.
[2024-12-01 21:08] LABS: Basophils Percent Auto 0.2 % (0.2-1.2); Eosinophils Absolute Auto 0.1 K/mm3 (0-0.3); Eosinophils Percent Auto 0.6 % (0-4.4); Hematocrit 34.6 % (37.0-47.0); Hemoglobin 9.8 g/dL (12.0-15.0); Immature Granulocyte Absolute 0.16 K/mm3 (0.00-0.031); Immature Granulocyte Percent A 1.1 % (0-0.5); Lymphocytes Percent Auto 6.1 % (18.3-44.2); Mean Corpuscular HGB Conc 28.3 g/dl (32-36); Mean Corpuscular Hemoglobin 26.6 pg (26-34); Mean Corpuscular Volume 93.8 fl (80-100); Mean Platelet Volume 8.8 fl (7.4-10.4); Monocytes Absolute Auto 0.9 K/mm3 (0.1-0.6); Neutrophils Absolute Auto 12.7 K/mm3 (1.3-6.7); Platelet Count Result 223 k/mm3 (150-375); Red Blood Count 3.69 M/mm3 (4.2-5.4); Red Cell Distribution Width 14.6 % (11.5-14.5); White Blood Count 14.8 K/mm3 (4.5-10.0)
[2024-12-01 21:17] LABS: Platelet Estimate Adequate (Adequate); Schistocytes None Seen; Stomatocytes 1+
[2024-12-01 21:20] LABS: Prothrombin Time 13.7 Seconds (11.1-14.7)
[2024-12-01 21:21] LABS: Partial Thromboplastin Time 31.9 Seconds (22.3-36.8)
[2024-12-01 21:30] LABS: Alanine Aminotransferase 13 U/L (6-35); Albumin Level 3.7 g/dL (3.5-5.1); Alkaline Phosphatase 85 U/L (38-126); Aspartate Amino Transferase 16 U/L (14-36); Blood Urea Nitrogen 22 mg/dL (7-17); Calcium 8.5 mg/dL (8.4-10.2); Carbon Dioxide > 40 mmol/L (22-30); Chloride 88 mmol/L (98-107); Estimated CRCL calculation 62 ml/min; Estimated Glomerular Filt Rate 52; Glucose 147 mg/dL (65-110); Lipase 61 U/L (23-300); Magnesium 1.4 mg/dL (1.6-2.3); Potassium 4.6 mmol/L (3.4-5.0); Sodium 133 mmol/L (137-145)
--- OUTSIDE RECORDS SUMMARY | 2024-12-01 21:30 | XMS_ITS | Clinical Summary ---
Author Organization [facility] Address [address] [place] [address] Phone Care Team Providers Care Batt Machine Operator Name Role Phone Unavailable Primary Care Provider Unavailabl e Allergies No known active allergies Medications apixaban (ELIQUIS) 2.5 mg tablet Take by mouth 2 times daily. Active escitalopram oxalate (LEXAPRO) 20 mg tablet Take 20 mg by mouth daily. Active montelukast (SINGULAIR) 10 mg tablet Take 10 mg by mouth daily at bedtime. Active omeprazole (PriLOSEC) 40 mg Capsule, Delayed Release(E.C.) Take 40 mg by mouth daily. Active traZODone (DESYREL) 50 mg tablet Take 50 mg by mouth daily at bedtime. Active albuterol sulfate HFA 90 mcg/actuation aerosol inhaler Take 2 Puffs by inhalation every 6 hours as needed for Shortness of Breath. Active B-complex + vitamin C (SUPER B-C) Tablet Take 1 Tablet by mouth daily. 3 Active cholecalciferol , vitamin D3, 1,000 unit Take 4 Tablets (4,000 Units) by mouth daily. 3 Active melatonin 5 mg Tablet, Rapid Dissolve Take 1 Tablet (5 mg) by mouth nightly as needed for Insomnia. 3 Active miconazole nitrate (REMEDY-AF,ZEAS ORB-AF) 2 % PowderIndicatio ns:necrotizing fasciitis of perineum or genital area Apply to affected area 2 times daily. 3 Active QUEtiapine (SEROquel) 25 mg tablet Take 1 Tablet (25 mg) by mouth daily at bedtime. 1 3 Active Active Problems Problem Noted Date Diagnosed Date DM (diabetes mellitus), type 2 09/22/2022 Acute on chronic respiratory failure with hypoxi a 09/17/2022 Gastroesophageal reflux disease 09/17/2022 Staph infection 09/17/2022 FARZANEH (acute kidney injury) 09/12/2022 Gram-positive cocci bacteremia 09/12/2022 Acute renal failure with tubular necrosis 2022 Elevated transaminase level 09/12/2022 History of CVA (cerebrovascular accident) 2022 Hypervolemia 09/12/2022 COPD (chronic obstructive pulmonary disease) CHF (congestive heart failure) 09/11/2022 CAD (coronary atherosclerotic disease) Cerebrovascular accident (CVA) due to embolism 0 09/11/2022 Obesity (BMI 30.0-34.9) 09/11/2022 Obesity hypoventilation syndrome 09/11/2022 Resolved Problems Problem Noted Date Diagnosed Date Resolved Date Shock circulatory 09/17/2022 09/24/2022 Severe sepsis with septic shock 09/17/2022 09/24/2022 Septic encephalopathy 09/12/20222022 Acute respiratory failure wi th hypoxia and hypercapnia 09/12/2022 09/24/2022 Hyperkalemia 09/12/2022 09/24/2022 Social History Tobacco Use Types Packs/Day Years Used Date Smoking Tobacco: Never Assessed Comments Unknown Sex and Gender Information Value Date Recorded Sex Assigned at Not on file Legal Sex Female 10:10 AM SEED TESTER Gender Identity Not on file Sexual Orientation Not on file Last Filed Vital Signs Vital Sign Reading Time Taken Comments Blood Pressure 116/68 09/24/2022 11:01 AM SEED TESTER Pulse 96 09/24/2022 11:01 AM SEED TESTER Temperature 36.3 C (97.4 F) 09/24/2022 11:01 AM SEED TESTER Respiratory Rate 16 09/24/2022 11:0 1 AM SEED TESTER Oxygen Saturation 92% 09/24/2022 4:5 5 PM SEED TESTER Inhaled Oxygen Concentration - - Weight 99.8 kg (220 lb) 09/22/2022 6:00 AM SEED TESTER bedscale not zeroed Height 167.6 cm (5' 6 ) 09/17/2022 10:2 8 AM SEED TESTER Body Mass Index 35.51 09/17/2022 10:28 AM SEED TESTER Plan of Treatment Health Maintenance Due Date Last Done Comments DIABETES ANNUAL FOOT EXAM 1976 DIABETES ANNUAL RETINAL EXAM 1976 DIABETES HBA1C Q 6 MONTHS 1976 DIABETES MICROALBUMIN ANNUAL SCREEN 1976 LDL CHOLESTEROL ANNUAL 1976 DTAP/TDAP/TD VACCINES (1 - Tdap) 1977 PNEUMOCOCCAL VACCINE 50+ YEARS (1 of 2 - PCV) 03/01/19 77 BREAST CANCER SCREENING 1998 COLORECTAL SCREENING 2003 Colorectal Cancer Screening 2003 FIT-DNA Q 3 years 2003 FIT/FOBT Q 1 year 2003 Flex Sig/CT Colonography Q 5 years 2003 ZOSTER VACCINE (1 of 2) 2008 RSV VACCINE (60+ or ) (1 - Risk 60-74 years 1-dose series) 2018 OSTEOPOROSIS SCREENING 2023 INFLUENZA VACCINE (#1) 2024 Insurance MEDICAID [facility] Advance Directives For more information, please contact: [phone] * Full Code (Latest Code Status on File) Date Activated Date Inactivated Comments 09/11/2022 7:58 PM 09/24/2022 7:43 PM
--- OUTSIDE RECORDS SUMMARY | 2024-12-01 21:30 | XMS_ITS | Clinical Summary ---
Author Organization [facility] Address [address] [place] [address] Care Team Providers Care Sports Coordinator Name Role Phone Heri Juarez MD Unavailable Lucho Golden MD Primary Care Provider [phone] Allergies No known active allergies Medications furosemide 40 MG tablet Take 1 tablet (40 mg total) by mouth 2 (two) times daily. 9 Active montelukast 10 MG tablet Take 1 tablet (10 mg total) by mouth daily. 8 Active omeprazole 40 MG capsule Take 1 tablet by mouth 2 (two) times a day. 8 Active PROAIR HFA 108 (90 Base) MCG/ACT inhaler Inhale 1 puff into the lungs as needed. 8 Active spironolactone 25 MG tablet Take 1 tablet (25 mg total) by mouth daily. 8 Active trazodone 50 MG tablet Take 1 tablet (50 mg total) by mouth nightly at bedtime. 8 Active triamcinolone 0.1 % cream JULIANNE EXT AA BID PRN 0 9 Active budesonide-form oterol 160-4.5 MCG/ACT inhaler Inhale 2 puffs into the lungs 2 (two) times daily. Active topiramate 100 MG tablet Take 1 tablet (100 mg total) by mouth 2 (two) times daily. Active COMPRESSION STOCKINGSIndica tions:Acute deep vein thrombosis (DVT) of other vein of right upper extremity ([facility]),PAD (peripheral artery disease) 20-30 MMHg Compression Stocking Knee High open or closed toe Dx I83.893 1 Container 6 9 Active amitriptyline 10 MG tablet Take 1 tablet (10 mg total) by mouth nightly at bedtime. 1 9 Active potassium chloride CR 10 MEQ Tab CR tablet Take 1 tablet (10 mEq total) by mouth 2 (two) times daily. 0 9 Active OXYGEN 2 L/mL by Nasal route continuous. Active escitalopram 20 MG tablet Take 1 tablet (20 mg total) by mouth daily. 1 9 Active hydrOXYzine 25 MG tablet Take 1 tablet (25 mg total) by mouth 3 (three) times daily as needed. 1 Active rOPINIRole 4 MG tablet Take 1 tablet (4 mg total) by mouth nightly at bedtime. at bedtime. 1 Active fluticasone propionate 50 MCG/ACT nasal spray USE 2 PUFFS IN EACH NOSTRIL DAILY 1 Active FEROSUL 325 (65 Fe) MG tablet Take 1 tablet (325 mg total) by mouth 2 (two) times daily. 3 Active TRELEGY ELLIPTA 200-62.5-25 MCG/ACT AEROSOL POWDER, BREATH ACTIVATED Inhale 1 puff into the lungs daily. 3 Active metoprolol succinate ER (TOPROL-XL) 25 MG 24 hr tablet Take 1 tablet (25 mg total) by mouth daily. 3 Active Active Problems Problem Noted Date Diagnosed Date Blood loss 07/13/2023 Chronic deep vein thrombosis (DVT) of right upper extremity, unspecified vein ([facility]) 11/27/2020 Acute deep vein thrombosis ( DVT) of other vein of right upper extremity ([facility]) 10/12/2018 PAD (peripheral artery disease) 10/12/2018 Thrombus 09/15/2018 Jugular vein occlusion ([facility]) 019 Family History Relation Status Comments Father Maternal Grandfather Maternal Grandmother Mother Paternal Grandfather Paternal Grandmother Sister 1 Alive Sister 2 Alive Social History Tobacco Use Types Packs/Day Years Used Date Smoking Tobacco: Former Cigarettes Q uit: 2015 Smokeless Tobacco: Never Alcohol Use Standard Drinks/Week Comments No 0 (1 standard drink = 0.6 oz pur e alcohol) [facility] Utilities Answer Date Recorded In the past 12 months has th e electric, gas, oil, or water company threatened to shut off services in your home? No 07/13/2023 Humiliation, Afraid, Rape, and Kick questionnair e Answer Date Recorded Within the last year, have y ou been afraid of your partner or ex-partner? No 07/13/2023 Within the last year, have y ou been humiliated or emotionally abused in other ways by your partner or ex-partner? No Within the last year, have y ou been kicked, hit, slapped, or otherwise physically hurt by your partner or ex-partner? No 07/13/2023 Within the last year, have y ou been raped or forced to have any kind of sexual activity by your partner or ex-partner? No 07/13/2023 AUDIT-C Answer Date Recorded Frequency of Alcohol Consumption Never 09/14/2018 Average Number of Drinks Not on file 019 Frequency of Binge Drinking Not on file 08/25 Overall Financial Resource Strain (CARDIA) Answe r Date Recorded How hard is it for you to pa y for the very basics like food, housing, medical care, and heating? Not hard at all 07/13/2023 PHQ-2 Answer Date Recorded PHQ-2 Score - If the patient scores above 3, please move on to questions 3-9 5 04/24/2021 Hunger Vital Sign Answer Date Recorded Within the past 12 months, y ou worried that your food would run out before you got the money to buy more. Never true 07/13/20 23 Within the past 12 months, t he food you bought just didn't last and you didn't have money to get more. Never true 07/13/2023 PRAPARE - Transportation Answer Date Re corded In the past 12 months, has l ack of transportation kept you from medical appointments or from getting medications? No 06/25 In the past 12 months, has l ack of transportation kept you from meetings, work, or from getting things needed for daily living? No 07/13/2023 Housing Stability Vital Sign Answer Sree e Recorded In the last 12 months, was t here a time when you were not able to pay the mortgage or rent on time? No 07/13/2023 In the last 12 months, how many places have you lived? 1 07/13/2023 In the last 12 months, was t here a time when you did not have a steady place to sleep or slept in a senior living (including now)? No 07/13/2023 Comments No Sex and Gender Information Value Date Recorded Sex Assigned at Not on file Legal Sex Female 3:29 PM CERTIFIED HYPERBARIC TECHNICIAN Gender Identity Not on file Sexual Orientation Not on file Occupation Industry Job Start Date Job End Date Not on file Not on file Not on file Not on file Last Filed Vital Signs Vital Sign Reading Time Taken Comments Blood Pressure 154/46 07/20/2023 7:51 AM CERTIFIED HYPERBARIC TECHNICIAN Pulse 94 07/20/2023 7:59 AM CERTIFIED HYPERBARIC TECHNICIAN Temperature 36.8 C (98.2 F) 07/20/2023 7:51 AM CERTIFIED HYPERBARIC TECHNICIAN Respiratory Rate 18 07/19/2023 4:11 AM CERTIFIED HYPERBARIC TECHNICIAN Oxygen Saturation 95% 07/20/2023 7:51 AM CERTIFIED HYPERBARIC TECHNICIAN Inhaled Oxygen Concentration - - Weight 115.8 kg (255 lb 4.7 oz) 07/15/2023 2:53 AM CERTIFIED HYPERBARIC TECHNICIAN Height 165.1 cm (5' 5 ) 07/13/2023 9:51 PM CERTIFIED HYPERBARIC TECHNICIAN Body Mass Index 42.48 07/13/2023 9:51 PM CERTIFIED HYPERBARIC TECHNICIAN Plan of Treatment Health Maintenance Due Date Last Done Comments ASCVD LDL 1958 ASCVD Statin 1958 Colorectal Cancer Screening Colonoscopy (10 Years) 1958 DTaP, Tdap and Td Vaccines (1 - Tdap) 1977 Mammogram Screening 1998 Zoster Vaccines (1 of 2) 2008 RSV Immunization or 60+ Years (1 - Risk 60-74 years 1-dose series) 2018 Annual Medicare Wellness Visit 2023 Dexa Scan (General) 2023 Pneumococcal Vaccine: 65+ Years (1 of 1 - PCV) 2023 COVID-19 Vaccine (1 - 2024-25 season) 2024 Hepatitis C Completed 09/16/2022, 08/25, 09/16/2022, Additional history exists Meningococcal B Vaccine Aged Out No l onger eligible based on patient's age to complete this topic Meningococcal Vaccine Aged Out No maru arie eligible based on patient's age to complete this topic RSV Immunizations Under 20 Months Aged Out No longer eligible based on patient's age to complete this topic Goals Goal Patient Goal Type Associated Problems Recent Progress Patient-Stated? Author Family - family caregiver with be involved in care transitions and discharge planning Lifestyle No Gricelda Arreaga, RN Insurance [facility] Advance Directives * Full Code (Latest Code Status on File) Date Activated Date Inactivated Comments 07/13/2023 7:44 PM 07/20/2023 3:30 PM * Full Code Date Activated Date Inactivated Comments 09/14/2018 7:08 PM 09/19/2018 4:55 PM Care Teams Sports Coordinator Relationship Specialty Start Date End Date Lucho Golden MD [address] [place] [address] PCP - General INTERNAL MEDICINE 07/14/23 Heri Juarez MD Vascular/Sports Administrator INTERNAL MEDICINE 09/21/18
--- OUTSIDE RECORDS SUMMARY | 2024-12-01 21:30 | XMS_ITS | Clinical Summary ---
Author Organization [facility] Address [address] [address] Phone Care Team Providers Care Heavy Equipment Supervisor Name Role Phone Unavailable Primary Care Provider Unavailabl e Social History Tobacco Use Types Packs/Day Years Used Date Smoking Tobacco: Never Assessed Comments Unknown Sex and Gender Information Value Date Recorded Sex Assigned at Not on file Legal Sex Female 10:12 PM CDT Gender Identity Not on file Sexual Orientation Not on file Plan of Treatment Not on file
--- OUTSIDE RECORDS SUMMARY | 2024-12-01 21:30 | XMS_ITS ---
Author Organization [facility] Care Team Providers Care Transmission And Coordination Engineer Name Role Phone Shireen Castaneda Unavailable Unavaila Ronnie Angela Unavailable Unavailable Allergies and adverse reactions No Known Allergies Care Team Name Role Address Phone Organization Dates Ronnie Paez PCP [address], [place], [facility] (Office): [facility] 09/25/2022 - 10/08/2022 Shireen Castaneda Attending Physician [address], [place], [facility] (Office): : [facility] 09/25/2022 - 10/08/2022 Goals Section Description Status Target Date The resident will have no in dications of psychosocial well-being problem by/through review date. Active 01/06/2023 Current level of care is lesly ropriate considering current physical/ social/ emotional status. Active 01/06/2023 If the resident's heart stop s, or if they stop breathing, CPR WILL be initiated in honor with their FULL code wishes. Active Minimize the risk of residen t exposure to the novel Coronavirus (COVID-19). Active 01/06/2023 Prevent a serious fall related injury Active 01/06/2023 Resident dietary PREFERENCES will be honored thr ough next review. Active 01/06/2023 Resident to maintain Isolation as directed Activ e 01/06/2023 Resident will be able to safely and comfortably consume meals. Active 01/06/2023 Resident will be free from s igns and symptoms of abnormal bleeding through the next review date. Active 01/06/2023 Resident will be free of com plications related to ADL deficit through next review date: Active 01/06/2023 Resident will be kept clean, dry and comfortable daily through next review Active 01/06/2023 Resident will be maintained at their respiratory baseline with a patent airway and unlabored respirations through next review date. Active 01/06/2023 Resident will have a regular bowel elimination pattern AEB soft/formed bowel movements at least once every three days through the next review: Active 01/06/2023 Resident will have a regular bowel elimination pattern AEB soft/formed bowel movements at least once every three days through the next review: Active 01/06/2023 Resident will have adequate fluid volume balance AEB good skin turgor, pink & moist mucous membranes, and sufficient fluid intake through next review. Active 01/06/2023 Resident will maintain ADEQUATE NUTRITION levels . Active 01/06/2023 Resident will maintain intac t skin or current condition of skin integrity through next review date. Active 01/06/2023 Resident will participate in ordered therapy ser vices Active 01/06/2023 Resident will receive the le ast dosage of the prescribed psychotropic drug(s) to ensure maximum functional ability both mentally and physically through next review date. Active 12/22 Resident will remain free fr om discomfort or further complications related to renal disease. Active 01/06/2023 Residents preferences will be honored as able Ac tive 01/06/2023 The resident will be kept cl danish and comfortable through next review date. Active 01/06/2023 The resident will have all n eeded items and materials to fully engage in preferred individual INDEPENDENT pursuits Active The resident will have an un derstanding of the disease process and the importance of compliance with treatment through the review date. Active 01/06/2023 The resident will have impro chris mood state (SPECIFY: happier, calmer appearance, no s/sx of depression, anxiety or sadness) through the review date. Active 01/06/2023 The resident will have impro chris sleep pattern by reporting satisfaction with rest or fewer documented episodes of insomnia through the review date Active 01/06/2023 The resident will have no co mplications from hyper or hypoglycemia through the review date. Active 01/06/2023 The resident will have no in dications of psychosocial well-being problem by/through review date. Active 01/06/2023 The resident will have no s/ sx of fluid volume deficit through review date. Active 01/06/2023 The resident will maintain o ptimal quality of life within limitation imposed by visual function through the review date. Active 01/06/2023 The resident will not harm t hemselves or others through their personal choices though next review Active 01/06/2023 The resident will not have c omplications related to aspiration through the review date. Active 01/06/2023 The resident will remain lory e of complications related to altered hematological status through the review date. Active 01/07/20 23 Immunizations Immunization Status Vaccine Details Vaccine Code CodeSystem Date Notes Flucelvax (Influenza vaccine) cancelled Influenza, split virus, quadrivalent, injectable, preservative free 150 CVX created date: 09/25/2022 consent date: 09/25/2022 Pneumovax (PCV 20) cancelled Pneumococcal conjugate vaccine 20-valent (PCV20), polysaccharide ESE255 conjugate, adjuvant, preservative free 216 CVX created date: 09/25/2022 consent date: 09/25/2022 Mental Status Section Date Assessment Total Score Description 10/08/2022 CAM 0 No delirium ind icated 09/30/2022 BIMS 10 moderate cognit faheem impairment CAM 0 No delirium ind icated PHQ-9 15 moderately judah re depression Problems Problem # Description Date of onset Resolved Date Code CodeSystem Concern Status 1 ENTEROCOLITIS DUE TO CLOSTRIDIUM DIFFICILE, NOT SPECIFIED RECURRENT 09/30/[address] active 2 ACUTE RESPIRATORY FAILURE WITH HYPERCAPNIA 09/24/[address] active 3 ACUTE RESPIRATORY FAILURE WITH HYPOXIA 09/24/[address] active 4 ANEMIA, UNSPECIFIED 09/24/[address] active 5 ATHEROSCLEROTIC HEART DISEASE OF [place] CORONARY ARTERY WITHOUT ANGINA PECTORIS 09/24/[address] active 6 CEREBRAL INFARCTION DUE TO EMBOLISM OF UNSPECIFIED CEREBRAL ARTERY 09/24/[address] active 7 CHRONIC KIDNEY DISEASE, UNSPECIFIED 09/24/[address] active 8 CHRONIC OBSTRUCTIVE PULMONARY DISEASE, UNSPECIFIED 09/24/[address] active 9 CHRONIC RESPIRATORY FAILURE WITH HYPOXIA 09/24/[address] active 10 COGNITIVE COMMUNICATION DEFICIT 09/24/[address] active 11 DYSPHAGIA, ORAL PHASE 09/24/[address] active 12 ENCEPHALOPATHY, UNSPECIFIED 09/24/[address] active 13 ESSENTIAL (PRIMARY) HYPERTENSION 09/24/[address] active 14 GASTRO-ESOPHAGEAL REFLUX DISEASE WITH ESOPHAGITIS, WITHOUT BLEEDING 09/24/[address] active 15 HEART FAILURE, UNSPECIFIED 09/24/[address] active 16 HYPERKALEMIA 09/24/[address] active 17 HYPERLIPIDEMIA, UNSPECIFIED 09/24/[address] active 18 MUSCLE WEAKNESS (GENERALIZED) 09/24/[address] active 19 OBESITY, UNSPECIFIED 09/24/[address] active 20 OBSTRUCTIVE SLEEP APNEA (ADULT) (PEDIATRIC) 09/24/[address] active 21 OTHER LACK OF COORDINATION 09/24/[address] active 22 SEVERE SEPSIS WITH SEPTIC SHOCK 09/24/[address] active 23 SHOCK, UNSPECIFIED 09/24/[address] active 24 TYPE 2 DIABETES MELLITUS WITHOUT COMPLICATIONS 09/24/[address] active 25 UNSPECIFIED ATRIAL FIBRILLATION 09/24/[address] active Reason for Referral No Reasons for Referral Entered Social History Social History Observation Description Start Date End Date Code Code System Current Smoking Status Tobacco smoking consumption unknown 195257351 SNOMED CT Sex Assigned At Female 1960 87126-8 [facility] Vital Signs Code Code System Vitals Name Values and Units Timing Information 31265-2 [facility] Pain Level Value=5.0 10/08/2022 9279-1 [facility] Respiratory Rate Value=18.0 Units=/m in 10/08/2022 8462-4 [facility] Blood Pressure-Diastolic Value=61 Un its=mmHg 10/08/2022 8480-6 [facility] Blood Pressure-Systolic Mionf=799 Un its=mmHg 10/08/2022 8310-5 [facility] Body Temperature Value=97.2 Units= F 10/08/2022 8867-4 [facility] Heart rate Value=98.0 Units=/min 85931-8 [facility] O2 % BldC Oximetry Value=93.0 Units= % 10/08/2022 91676-8 [facility] Weight Mpokk=828.8 Units=Lbs 10/2022 8302-2 [facility] Height Value=66.0 Units=Inches 09/25/2022
[2024-12-01] MEDS: ACETAMINOPHEN 500 MG TABLET 1000 MG PO (21:31)
[2024-12-01 21:35] LABS: Procalcitonin 0.4 ng/mL
[2024-12-01 21:38] LABS: NT Pro B Type Natriuretic Pept 758 pg/mL (19.9-100)
[2024-12-01] MEDS: MAGNESIUM SULF 2 GM/WATER 50ML 2 GM/50 ML BAG IVPB (21:50)
[2024-12-01] MEDS: IPRATROPIUM 0.5 MG/ALBUTEROL SULFATE 2.5 MG AMPUL.NEB 3 ML INHALATION (21:51)
[2024-12-01 21:54] LABS: Lactic Acid Reflex 1.5 mmol/L (0.7-2.0)
[2024-12-01 22:03] LABS: Alveolar/Arterial O2 Gradient 179.7 mmHg; Base Excess ABG 6.5 mEq/l (+/-2.0); Fractional Inspired Oxygen 50 %; HCO3 ABG 34.3 mEq/l (22.0-26.0); Oxygen Content ABG 16.8 %vol (16.0-22.0); Oxygen Saturation ABG 97.2 % (95.0-100.0); Oxyhemoglobin 95.8 % THb (90.0-100.0); PO2 ABG 103.2 mmHg (80.0-100.0); PO2 FiO2 Ratio Arterial Blood 2.06 %; Total Hemoglobin 12.4 g/dL (12.0-18.0); pH ABG 7.337 (7.350-7.450)
[2024-12-01 22:11] LABS: Device NON-REBREATHER MASK; Modified Allen's Test Pass; PCO2 ABG 65.4 mmHg (35.0-45.0); Site Drawn RIGHT RADIAL
[2024-12-01 22:21] LABS: Influenza A QL RT-PCR Negative (Negative); Influenza B QL RT-PCR Negative (Negative); RSV RNA, RT-PCR Negative (Negative); SARS-CoV-2 RNA PCR Negative (Negative)
[2024-12-01 22:30] LABS: Troponin I 0.024 ng/mL (0.000-0.034)
[2024-12-01 23:28] LABS: Bacteria Urine None Seen /hpf; Hyaline Casts Urine Present /lpf; Need Manual Microscopic Reviewed; RBC Urine 0-2 /hpf (0-2); Squamous Epithelial Cell Urine Occasional /hpf (Few); WBC Urine 0-5 /hpf (0-3)
[2024-12-01 23:36] LABS: Appearance Urine Clear (Clear); Blood Urine Negative (Negative); Color Urine Yellow (Yellow); Glucose Urine UA Negative (Negative); Ketones Urine Negative (Negative); Protein Urine 2+ mg/dL (Negative)
[2024-12-01 23:37] LABS: Add Urine Microscopic? YES; Bilirubin Urine Negative (Negative); Leukocyte Esterase Ur Negative LEU/UL (Negative); Nitrate Urine Negative (Negative); Urobilinogen Urine 0.2 mg/dL (<2.0)
[2024-12-02] VITALS (31 sets, daily range): BP systolic 103–148; BP diastolic 48–88; PULSE 83–106; RESP 14–25; TEMP 36.1–37.6; O2SAT 92–100; BMI 42.2
--- NOTE | 2024-12-02 | ECHO_ITS ---
Patient Info Name: Cony Shin Age: 64 years : 1960 Gender: Female Ht: 66 in Wt: 261 lbs BSA: 2.41 m2 HR: 88 bpm BP: 136 / 63 mmHg Heart Rhythm: Sinus Rhythm Technical Quality: Fair Exam Date: 12/02/2024 2:13 PM Exam Location: Echo Lab Patient Status: Inpatient Admit Date: 12/02/2024 Staff Ordering Physician: Teofilo Farfan MD Silver Designer: Ching Wilson RDCS Attending Provider: Gerardo Patel MD Exam Type: CA echo dop color flow w con Study Info Indications - r/o chf Complete two-dimensional, color flow and Doppler transthoracic echocardiogram is performed with contrast to opacify the left ventricle and to improve the deliniation of the left ventricle endocardial borders. Contrast/Agitated Saline Contrast/Ag. Saline: Definity Amount: 2.00 ml Administered By: Ching Wilson RDCS Existing IV Access: Yes IV Access Condition: patent with no signs of infiltration Summary 1. The left ventricle is normal in size and systolic function. The left ventricular ejection fraction visually estimated to be 60-60%. 2. The right ventricle is dilated with normal systolic function. 3. There are no significant valvular abnormalities. 4. Technically difficult study. Left Ventricle The left ventricle is normal in size and systolic function. The left ventricular ejection fraction visually estimated to be 60-60%. Diastolic dysfunction is present. Right Ventricle The right ventricle is dilated with normal systolic function. Left Atria The left atrium is normal size. Right Atria The right atrium is normal size. Atrial Septum The atrial septum appears intact. Aortic Valve The aortic valve appears to be opening well. Pulmonic Valve The pulmonic valve is not visualized. Mitral Valve The mitral valve is grossly normal. There is trace mitral regurgitation. Tricuspid Valve The tricuspid valve is grossly normal. There is trace tricuspid regurgitation. Pericardium/Pleural Pericardium is normal in appearance with no evidence for significant pericardial effusion. Inferior Vena Cava Normal inferior vena cava with <50% collapse upon inspiration consistent with elevated right atrial pressure, 8 mmHg. Normal inferior vena cava with <50% collapse upon inspiration consistent with elevated right atrial pressure, 8 mmHg. Aorta The aortic root at the level of the sinus of Valsalva measures 2.9 cm in diameter. Left Ventricular Outflow Tract Name Value Normal LVOT 2D LVOT Diameter 2.03 cm LVOT Doppler LVOT Peak Gradient 5 mmHg LVOT Mean Gradient 3 mmHg LVOT VTI 20.87 cm LVOT VTI/AV VTI Ratio 0.57 LVOT Stroke Volume 67.65 ml LVOT CO 5.83 l/min LVOT CI 2.42 L/min/m2 Mitral Valve Name Value Normal MV Doppler MV Decel [place] 331.53 cm/s2 MV PHT 0 s MV Area (PHT) 2.71 cm2 4.00-5.00 MV Diastolic Function MV E Peak Velocity 92.71 cm/s MV A Peak Velocity 140.86 cm/s MV E/A 0.66 MV Decel Time 0 s MV Annular TDI MV E/e' (Septal) 15.14 <=8.00 MV E/e' (Lateral) 14.38 <=8.00 MV E/e' (Average) 14.76 Tricuspid Valve Name Value Normal TV Regurgitation Doppler TR Peak Velocity 216.21 cm/s TR Peak Gradient 19 mmHg Estimated PAP/RSVP RA Pressure 8 mmHg <=5 PA Systolic Pressure 27 mmHg <36 RV Systolic Pressure 27 mmHg <36 Aorta Name Value Normal Ascending Aorta Ao Root Diameter (MM) 3.17 cm Ao Root Diam Index (MM) 1.32 cm/m2 Aortic Valve Name Value Normal AV Doppler AV Peak Velocity 207.41 cm/s AV Peak Gradient 17 mmHg AV Mean Gradient 10 mmHg AV VTI 36.48 cm AV Area (Cont Eq VTI) 1.86 cm2 >=3.00 AV Area (Cont Eq Frank) 1.70 cm2 AV Regurgitation 2D LVOT Area 3.24 cm2 Ventricles Name Value Normal LV Dimensions 2D/MM IVS Diastolic Thickness (2D) 1.03 cm 0.60-1.00 LVID Diastole (2D) 4.87 cm 3.80-5.20 LVIW Diastolic Thickness (2D) 0.93 cm 0.60-0.90 LVID Systole (2D) 3.24 cm 2.20-3.50 LVOT Diameter 2.03 cm LV Mass (2D Cubed) 168.47 g 67.00-162.00 LV Mass Index (2D Cubed) 0.01 g/cm2 0.00-0.01 Relative Wall Thickness (2D) 0.38 LV Fractional Shortening/Ejection Fraction 2D/MM LV Fractional Shortening (2D) 34 % 27-45 LV EF (2D Teicholz) 62 % 54-74 LV Diastolic Volume (4C MOD) 94.40 ml LV EF (4C MOD) 74 % LV Diastolic Volume (2C MOD) 60.68 ml LV EF (2C MOD) 68 % LV Diastolic Volume (BP MOD) 75.71 ml 46.00-106.00 LV Diastolic Volume Index (BP MOD) 0.03 l/m2 0.03-0.06 LV Systolic Volume (BP MOD) 23.14 ml 14.00-42.00 LV Systolic Volume Index (BP MOD) 0.01 l/m2 0.01-0.02 LV EF (BP MOD) 69 % 54-74 LV Diastolic Length (4C) 8.29 cm LV Systolic Length (4C) 6.91 cm LV Stroke Volume (4C MOD) 70.32 ml Atria Name Value Normal LA Dimensions LA Dimension (MM) 4.04 cm 2.70-3.80 LA Volume (4C A-L) 46.25 ml LA Volume (BP A-L) 63.85 ml RA Dimensions RA Area (4C) 19.84 cm2 <=18.00 Report Signatures
--- NOTE | 2024-12-02 00:13 | ED_ITS ---
HPI - General Adult General Chief complaint: Shortness of Breath/Dyspnea Stated complaint: SOB Time Seen by Provider: 12/01/24 20:44 History of Present Illness HPI narrative: Patient is 64-year-old female who presents emergency department with chief complaint of shortness of breath. The patient has history COPD and wears oxygen at home patient has been having increasing shortness of breath and was found to be saturating in the 80s at home the patient reports that patient reports she has hand having increasing shortness of breath just has not felt well reports she was diagnosed with UTI yesterday and started on Cipro Related Data Home Medications ?Medication ?Instructions ?Recorded ?Confirmed ?Last Taken ?Type escitalopram oxalate 20 mg tablet 20 mg PO DAILY 09/07/21 10/20/22 Unknown History montelukast 10 mg tablet 10 mg PO DAILY 09/07/21 10/20/22 Unknown History omeprazole 40 mg capsule,delayed 40 mg PO DAILY 09/07/21 10/20/22 Unknown History release trazodone 50 mg tablet 50 mg PO HS 09/07/21 10/20/22 Unknown History B-complex with vitamin C 1 cap PO DAILY 10/09/22 10/20/22 Unknown History Saccharomyces boulardii 250 mg 250 mg PO BID 10/09/22 10/20/22 Unknown History capsule bisacodyl 10 mg rectal suppository 10 mg RECTAL DAILY PRN Constipation 10/09/22 10/20/22 Unknown History cholecalciferol (vitamin D3) 100 100 mcg PO DAILY 10/09/22 10/20/22 Unknown History mcg (4,000 unit) tablet magnesium citrate (Citroma oral 300 ml PO DAILY PRN Constipation 10/09/22 10/20/22 Unknown History solution) magnesium hydroxide 400 mg/5 mL 30 ml PO HS PRN Constipation 10/09/22 10/20/22 Unknown History oral suspension (Milk of Magnesia) melatonin 5 mg capsule 5 mg PO HS PRN Insomnia 10/09/22 10/20/22 Unknown History quetiapine 25 mg tablet 25 mg PO HS 10/09/22 10/20/22 Unknown History sodium phosphates 19 gram-7 118 ml RECTAL ONCE 10/09/22 10/20/22 Unknown History gram/118 mL enema (Fleet Enema) amitriptyline 10 mg tablet 10 mg PO HS 10/20/22 10/20/22 Unknown History ropinirole 4 mg tablet 4 mg PO HS 10/20/22 10/20/22 Unknown History topiramate 100 mg tablet 200 mg PO BID 10/20/22 10/20/22 Unknown History Allergies Allergy/AdvReac Type Severity Reaction Status Date / Time No Known Drug Allergies Allergy Unknown Verified 07/13/23 13:02 Review of Systems 2 Review of Systems: A 10 system review of systems was completed on the patient and is negative except for what is stated in the HPI. Nursing and ancillary documentation was reviewed. [facility] Past Medical History Medical History Acute exacerbation of chronic obstructive pulmonary disease C. difficile colitis Renal failure Requiring temporary dialysis and CRRT in 09/15. Staphylococcus epidermidis bacteremia (08/2022) Diastolic dysfunction Echo in August 2022 showed normal LV function with an EF of 60 to 65%, grade 1 diastolic dysfunction, moderate enlarged right ventricular chamber, normal right ventricular systolic function, moderate tricuspid valve regurgitation, and pulmonary hypertension with an estimated PASP of 59 mmHg. Normocytic anemia Atrial flutter with rapid ventricular response Bacteremia Shock Obesity (BMI 30-39.9) Sepsis Urinary tract infection Acute kidney injury Encephalopathy Chronic anticoagulation Gastroesophageal reflux disease Cerebrovascular accident Pneumonia Chronic obstructive pulmonary disease Acute on chronic respiratory failure with hypoxia and hypercapnia Jugular vein thrombosis 2019 novel coronavirus-infected pneumonia (NCIP) Congestive heart failure COPD (chronic obstructive pulmonary disease) Surgical History Surgical History History of cholecystectomy History of 3 sections History of left knee replacement Family History Family History Father Hypertension Acute myocardial infarction Sibling Hypertension Mother Family history of heart disease in male family member before age 55 Brother Acute myocardial infarction Father Acute myocardial infarction Other Cerebrovascular accident Family history of cardiovascular disease Social History Social History Social History: Surrogate medical decision maker: Sainestor Shin, brother. Code status: Full code. Smoking packs per day: 1 Smoking cigarettes per day: 20.0 Years smoked: 50 Smoking pack-years: 50.00 Smoking status: Former smoker Tobacco type: cigarettes Second hand tobacco smoke exposure: Yes Smoking end date: 08/23/22 Alcohol intake: unknown Drinks per week: 0 Substance use: unknown Lack of Transportation: No Lack of Food: Never True Current Housing: I Have Housing Concerned About Future Housing: No Difficulty Paying Gas/Electric Bills: No Difficulty Paying for Meds: No Currently Unemployed: No Education: High School Diploma/GED Difficulty w/ Childcare or Family Care: No Living arrangements: with family Additional living arrangements comments: Lives with family in [place]. 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 Spiritual care concerns: No Exam 2 Narrative: GENERAL: Well-appearing, well-nourished, and in no acute distress. HEAD: Normocephalic, atraumatic. EYES: PERRLA and EOMI. ENT: Nares clear, no rhinorrhea or epistaxis. Mucous membranes moist. NECK: Supple. CHEST: Clear to auscultation. No respiratory distress. HEART: Regular rate and rhythm. No murmur heard. Normal peripheral pulses. ABDOMEN: Soft, nontender, nondistended, normal active bowel sounds. EXTREMITIES: Normal range of motion. No edema. SKIN: Warm, dry, no rash. NEURO: No focal deficits. Alert and oriented x3. PSYCH: Normal mood and affect. Course Vital Signs Vital signs: Vital Signs Temperature 37.7 C H 12/01/24 20:37 Pulse Rate 115 H 12/01/24 20:37 Respiratory Rate 22 H 12/01/24 20:37 Blood Pressure 142/106 H 12/01/24 20:37 Pulse Oximetry 98 12/01/24 20:37 Oxygen Delivery Non-Rebreather Mask 12/01/24 20:37 Oxygen Flow Rate 15 12/01/24 20:37 Temperature 39.4 C H 12/01/24 21:30 Pulse Rate 104 H 12/01/24 22:02 Respiratory Rate 17 12/01/24 22:25 Blood Pressure 98/63 L 12/01/24 21:30 Pulse Oximetry 92 12/01/24 22:25 Oxygen Delivery BiPAP 12/01/24 22:25 Oxygen Flow Rate 10 12/01/24 21:37 Medical Decision Making Vital Signs Vital Signs: Vital Signs Temperature 37.7 C H 12/01/24 20:37 Pulse Rate 115 H 12/01/24 20:37 Respiratory Rate 22 H 12/01/24 20:37 Blood Pressure 142/106 H 12/01/24 20:37 Pulse Oximetry 98 12/01/24 20:37 Oxygen Delivery Non-Rebreather Mask 12/01/24 20:37 Oxygen Flow Rate 15 12/01/24 20:37 Temperature 39.4 C H 12/01/24 21:30 Pulse Rate 104 H 12/01/24 22:02 Respiratory Rate 17 12/01/24 22:25 Blood Pressure 98/63 L 12/01/24 21:30 Pulse Oximetry 92 12/01/24 22:25 Oxygen Delivery BiPAP 12/01/24 22:25 Oxygen Flow Rate 10 12/01/24 21:37 Lab Data 12/01/24 21:03 12/01/24 21:03 Labs: Lab Results 12/01/24 12/01/24 12/01/24 Range/Units 21:03 21:03 21:26 WBC 14.8 H (4.5-10.0) K/mm3 RBC 3.69 L (4.2-5.4) M/mm3 Hgb 9.8 L (12.0-15.0) g/dL Hct 34.6 L (37.0-47.0) % MCV 93.8 (80-100) fl MCH 26.6 (26-34) pg MCHC 28.3 L (32-36) g/dl RDW 14.6 H (11.5-14.5) % Plt Count 223 D (150-375) k/mm3 MPV 8.8 (7.4-10.4) fl Immature Gran % (Auto) 1.1 H (0-0.5) % Neut % (Auto) 86.0 H (45.5-73.1) % Lymph % (Auto) 6.1 L (18.3-44.2) % [place] % (Auto) 6.0 (2.6-8.5) % Eos % (Auto) 0.6 (0-4.4) % Baso % (Auto) 0.2 (0.2-1.2) % Lymph # (Auto) 0.90 (0.9-3.2) K/mm3 [place] # (Auto) 0.9 H (0.1-0.6) K/mm3 Eos # (Auto) 0.1 (0-0.3) K/mm3 Baso # (Auto) 0.0 (0.0-0.1) K/mm3 Abs Immat Gran (auto) 0.16 H (0.00-0.031) K/mm3 Absolute Neuts (auto) 12.7 H (1.3-6.7) K/mm3 Absolute Nucleated RBC 0.000 (0.0-0.012) K/mm3 Band Neutrophils % Not Reportable Nucleated RBC % 0.0 (0.0-0.2) % Platelet Estimate Adequate (Adequate) Stomatocytes 1+ Schistocytes None seen PT 13.7 (11.1-14.7) Seconds INR 1.0 APTT 31.9 (22.3-36.8) Seconds Sodium 133 L (137-145) mmol/L Potassium 4.6 (3.4-5.0) mmol/L Chloride 88 L (98-107) mmol/L Carbon Dioxide > 40 H (22-30) mmol/L Anion Gap (4-12) mmol/L BUN 22 H (7-17) mg/dL Creatinine 1.06 H (0.7-1.0) mg/dL Estim Creat Clear Calc 62 ml/min Estimated GFR 52 L (59 - ) Glucose 147 H (65-110) mg/dL Lactic Acid 1.5 (0.7-2.0) mmol/L Calcium 8.5 (8.4-10.2) mg/dL Magnesium 1.4 L (1.6-2.3) mg/dL Total Bilirubin 1.0 (0.2-1.3) mg/dL AST 16 (14-36) U/L ALT 13 (6-35) U/L Alkaline Phosphatase 85 (38-126) U/L Troponin I Cancelled 0.024 NT-Pro-B Natriuret Pep 758 H (19.9-100) pg/mL Total Protein 7.0 (6.3-8.2) g/dL Albumin 3.7 (3.5-5.1) g/dL Lipase 61 (23-300) U/L Procalcitonin 0.4 ng/mL Urine Color (Yellow) Urine Appearance (Clear) Urine pH (5.0-9.0) Ur Specific [place] (1.001-1.035) Urine Protein (Negative) mg/dL Urine Glucose (UA) (Negative) mg/dL Urine Ketones (Negative) mg/dL Ur Blood (Man) (Negative) Urine Nitrate (Negative) Urine Bilirubin (Negative) Urine Urobilinogen (<2.0) mg/dL Add Ur Microanalysis Leukocyte Esterase Rfl (Negative) JAVY/UL Urine RBC (0-2) /hpf Urine WBC (0-3) /hpf Ur Squamous Epith Cells (Few) /hpf Urine Bacteria /hpf Urine Casts Hyaline Casts (None) /lpf Influenza A (RT-PCR) Negative (Negative) Influenza B (RT-PCR) Negative (Negative) RSV (RT-PCR) Negative (Negative) SARS-CoV-2 RNA (RT-PCR) Negative (Negative) 12/01/24 Range/Units 22:56 WBC (4.5-10.0) K/mm3 RBC (4.2-5.4) M/mm3 Hgb (12.0-15.0) g/dL Hct (37.0-47.0) % MCV (80-100) fl MCH (26-34) pg MCHC (32-36) g/dl RDW (11.5-14.5) % Plt Count (150-375) k/mm3 MPV (7.4-10.4) fl Immature Gran % (Auto) (0-0.5) % Neut % (Auto) (45.5-73.1) % Lymph % (Auto) (18.3-44.2) % [place] % (Auto) (2.6-8.5) % Eos % (Auto) (0-4.4) % Baso % (Auto) (0.2-1.2) % Lymph # (Auto) (0.9-3.2) K/mm3 [place] # (Auto) (0.1-0.6) K/mm3 Eos # (Auto) (0-0.3) K/mm3 Baso # (Auto) (0.0-0.1) K/mm3 Abs Immat Gran (auto) (0.00-0.031) K/mm3 Absolute Neuts (auto) (1.3-6.7) K/mm3 Absolute Nucleated RBC (0.0-0.012) K/mm3 Band Neutrophils % Nucleated RBC % (0.0-0.2) % Platelet Estimate (Adequate) Stomatocytes Schistocytes PT (11.1-14.7) Seconds INR APTT (22.3-36.8) Seconds Sodium (137-145) mmol/L Potassium (3.4-5.0) mmol/L Chloride (98-107) mmol/L Carbon Dioxide (22-30) mmol/L Anion Gap (4-12) mmol/L BUN (7-17) mg/dL Creatinine (0.7-1.0) mg/dL Estim Creat Clear Calc ml/min Estimated GFR (59 - ) Glucose (65-110) mg/dL Lactic Acid (0.7-2.0) mmol/L Calcium (8.4-10.2) mg/dL Magnesium (1.6-2.3) mg/dL Total Bilirubin (0.2-1.3) mg/dL AST (14-36) U/L ALT (6-35) U/L Alkaline Phosphatase (38-126) U/L Troponin I NT-Pro-B Natriuret Pep (19.9-100) pg/mL Total Protein (6.3-8.2) g/dL Albumin (3.5-5.1) g/dL Lipase (23-300) U/L Procalcitonin ng/mL Urine Color Yellow (Yellow) Urine Appearance Clear (Clear) Urine pH 6.0 (5.0-9.0) Ur Specific [place] 1.020 (1.001-1.035) Urine Protein 2+ H (Negative) mg/dL Urine Glucose (UA) Negative (Negative) mg/dL Urine Ketones Negative (Negative) mg/dL Ur Blood (Man) Negative (Negative) Urine Nitrate Negative (Negative) Urine Bilirubin Negative (Negative) Urine Urobilinogen 0.2 (<2.0) mg/dL Add Ur Microanalysis Reviewed Leukocyte Esterase Rfl Negative (Negative) JAVY/UL Urine RBC 0-2 (0-2) /hpf Urine WBC 0-5 (0-3) /hpf Ur Squamous Epith Cells Occasional (Few) /hpf Urine Bacteria None seen /hpf Urine Casts 11-20 Hyaline Casts Present (None) /lpf Influenza A (RT-PCR) (Negative) Influenza B (RT-PCR) (Negative) RSV (RT-PCR) (Negative) SARS-CoV-2 RNA (RT-PCR) (Negative) ABG Data ABG results: 12/01/24 21:39 Puncture Site Right radial ABG pH 7.337 L ABG pCO2 65.4 H* ABG pO2 103.2 H ABG PO2/FiO2 Ratio 2.06 ABG HCO3 34.3 H ABG O2 Saturation 97.2 ABG O2 Content 16.8 ABG Base Excess 6.5 A-a Gradient 179.7 Oxyhemoglobin 95.8 Total Hemoglobin 12.4 O2 Delivery Device Non-rebreather mask O2 Liters/Min 10.0 FiO2 50 Critical Care Time Critical Care Time Critical Care Time: Yes Total Critical Care Time: 35 Discharge Plan Discharge Clinical Impression: Acute on chronic respiratory failure with hypoxia and hypercapnia, Chronic obstructive pulmonary disease Patient Disposition: Still a Patient Condition: Stable Patient Language: Togolese Prescriptions: No Action amitriptyline 10 mg tablet 10 mg PO HS topiramate 100 mg tablet 200 mg PO BID ropinirole 4 mg tablet 4 mg PO HS trazodone 50 mg tablet 50 mg PO HS omeprazole 40 mg capsule,delayed release(DR/EC) 40 mg PO DAILY montelukast 10 mg tablet 10 mg PO DAILY escitalopram oxalate 20 mg tablet 20 mg PO DAILY albuterol sulfate [Proventil HFA] 90 mcg/actuation Hfa Aerosol Inhaler 2 puff inhalation QID PRN (Reason: shortness of breath) Qty: 1 0RF potassium chloride 20 mEq Packet 20 meq PO DAILY Qty: 30 0RF cefdinir 300 mg Capsule 300 mg PO Q12HR Qty: 20 0RF ferrous sulfate 325 mg (65 mg iron) tablet 325 mg PO BID Qty: 60 0RF quetiapine 25 mg tablet 25 mg PO HS B-complex with vitamin C Capsule 1 cap PO DAILY Saccharomyces boulardii 250 mg Capsule 250 mg PO BID Patient Comments: until 10/27/22 cholecalciferol (vitamin D3) 100 mcg (4,000 unit) Tablet 100 mcg PO DAILY magnesium hydroxide [Milk of Magnesia] 400 mg/5 mL Suspension 30 ml PO HS PRN (Reason: Constipation) bisacodyl 10 mg Suppository 10 mg RECTAL DAILY PRN (Reason: Constipation) Fleet Enema 19-7 gram/118 mL Enema 118 ml RECTAL ONCE magnesium citrate [Citroma] Solution 300 ml PO DAILY PRN (Reason: Constipation) melatonin 5 mg Capsule 5 mg PO HS PRN (Reason: Insomnia) furosemide 20 mg Tablet 20 mg PO BID Qty: 60 0RF metoprolol succinate [Toprol XL] 25 mg Tablet Extended Release 24 Hr 25 mg PO QAM Qty: 30 0RF Eliquis 5 mg Tablet 5 mg PO BID Qty: 60 0RF Follow-up/Referrals: Venancio Breaux DO [Primary Care Provider] - Time of Disposition: 00:31
[2024-12-02] MEDS: methylPREDNISolone SOD SUCC 125 MG VIAL 60 MG IV PUSH ×3 (00:48→13:02)
[2024-12-02] MEDS: IPRATROPIUM 0.5 MG/ALBUTEROL SULFATE 2.5 MG AMPUL.NEB 3 ML INHALATION ×4 (01:44→20:43)
[2024-12-02 02:05] LABS: Alveolar/Arterial O2 Gradient 137.1 mmHg; Base Excess ABG 6.1 mEq/l (+/-2.0); Fractional Inspired Oxygen 40 %; HCO3 ABG 34.1 mEq/l (22.0-26.0); Oxygen Content ABG 14.3 %vol (16.0-22.0); Oxygen Saturation ABG 91.3 % (95.0-100.0); Oxyhemoglobin 91.5 % THb (90.0-100.0); PO2 ABG 68.2 mmHg (80.0-100.0); Total Hemoglobin 11.1 g/dL (12.0-18.0); pH ABG 7.309 (7.350-7.450)
[2024-12-02 02:10] LABS: Device BIPAP; Expiratory Pressure 5 cmH2O; Inspiratory Pressure 15 cmH2O; Modified Allen's Test Pass; PCO2 ABG 69.5 mmHg (35.0-45.0); Site Drawn RIGHT RADIAL
[2024-12-02 02:12] LABS: Troponin I 0.024 ng/mL (0.000-0.034)
--- NOTE | 2024-12-02 02:22 | ADMGEN ---
This patient, Cony Shin, was admitted to IMU Room 209-. Patient/family oriented to hospital policies and general routines including ID bracelet, bed and alarms, visiting hours, pain management, procedures, bathroom and other care routines, personal items, smoking policy, room service/diet, and visiting hours. Information on how to activate the Rapid Response Team has been discussed. Patient/Family are encouraged to report perceived risks to care and to ask questions if they do not understand what they are told or what they should do.
--- NOTE | 2024-12-02 03:33 | PM.IMHP ---
H&P: HPI History of Present Illness Date/Time: 12/02/24 03:33 Chief Complaint: 1. Shortness of breath Narrative: Cony Shin is a 64-year-old female with a medical history significant for obesity, depression with anxiety, hypertension, insomnia, restless leg syndrome, chronic hypoxia Over the last 1-2 weeks has been developing worsening dyspnea; it 1st was present with moderate exertion but in the last few days has come under present even at rest, poly elevated by rescue inhaler as an activity; associated with malaise, insomnia, anorexia restriction of ADLs She denies fevers, hemoptysis, flank pain, dysuria, dizziness, chest pain or LOC. She does not smoke/chew tobacco, vapes nicotine, drink alcohol or consume recreational/illicit drugs. Work-up findings WBC 14.8; HGB 9.8; MCV 93; PLT 223; PT 13, INR 1, APTT 31 ABG: PH 7.33, pCO2 65, PO2 103 NA 133, K 4.6, Cl 88, CO2> 60, BUN 22, CR 1.06, GFR 52 Lactic acid 1.5, mg 1.4 Troponin 0.024, 0.024; BNP 758 UA: Unremarkable Influenza a/B, RSV, COVID-19: Negative CXR: Cardiomegaly with cardiac decompensation and pulmonary edema. Pneumonitis in the lower lobes is not excluded Cony Shin be admitted, evaluated, managed for COPD exacerbation with acute on chronic hypoxia with hypercapnia Review of Systems Review of Systems: All systems reviewed & are unremarkable except as noted in HPI and below PMFSH Past Medical History Medical History Acute exacerbation of chronic obstructive pulmonary disease C. difficile colitis Renal failure Requiring temporary dialysis and CRRT in 09/15. Staphylococcus epidermidis bacteremia (08/2022) Diastolic dysfunction Echo in August 2022 showed normal LV function with an EF of 60 to 65%, grade 1 diastolic dysfunction, moderate enlarged right ventricular chamber, normal right ventricular systolic function, moderate tricuspid valve regurgitation, and pulmonary hypertension with an estimated PASP of 59 mmHg. Normocytic anemia Atrial flutter with rapid ventricular response Bacteremia Shock Obesity (BMI 30-39.9) Sepsis Urinary tract infection Acute kidney injury Encephalopathy Chronic anticoagulation Gastroesophageal reflux disease Cerebrovascular accident Pneumonia Chronic obstructive pulmonary disease Acute on chronic respiratory failure with hypoxia and hypercapnia Jugular vein thrombosis 2019 novel coronavirus-infected pneumonia (NCIP) Congestive heart failure COPD (chronic obstructive pulmonary disease) Surgical History Surgical History History of cholecystectomy History of 3 sections History of left knee replacement Family History Family History Father Hypertension Acute myocardial infarction Sibling Hypertension Mother Family history of heart disease in male family member before age 55 Brother Acute myocardial infarction Father Acute myocardial infarction Other Cerebrovascular accident Family history of cardiovascular disease Social History Social History Social History: Surrogate medical decision maker: Sai Shin, brother. Code status: Full code. Smoking packs per day: 1 Smoking cigarettes per day: 20.0 Years smoked: 50 Smoking pack-years: 50.00 Smoking status: Former smoker Tobacco type: cigarettes Second hand tobacco smoke exposure: Yes Smoking end date: 08/23/22 Alcohol intake: never Drinks per week: 0 Substance use: never Do You Feel Safe in your Home?: Yes Lack of Transportation: No Lack of Food: Never True Current Housing: I Have Housing Concerned About Future Housing: No Difficulty Paying Gas/Electric Bills: No Difficulty Paying for Meds: No Currently Unemployed: No Education: High School Diploma/GED Difficulty w/ Childcare or Family Care: No Living arrangements: with family Additional living arrangements comments: Lives with family in [place]. 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 Spiritual care concerns: No Meds Home Medications and Allergies Home Medications ?Medication ?Instructions ?Recorded ?Confirmed ?Type escitalopram oxalate 20 mg tablet 20 mg PO DAILY 09/07/21 12/02/24 History montelukast 10 mg tablet 10 mg PO DAILY 09/07/21 12/02/24 History omeprazole 40 mg capsule,delayed 40 mg PO DAILY 09/07/21 12/02/24 History release trazodone 50 mg tablet 50 mg PO HS 09/07/21 12/02/24 History albuterol sulfate 90 mcg/actuation 2 puff inhalation QID PRN 09/16/21 12/02/24 Rx aerosol inhaler (Proventil HFA) shortness of breath #1 BA unit magnesium hydroxide 400 mg/5 mL 30 ml PO HS PRN Constipation 10/09/22 12/02/24 History oral suspension (Milk of Magnesia) melatonin 5 mg capsule 5 mg PO HS PRN Insomnia 10/09/22 12/02/24 History quetiapine 25 mg tablet 25 mg PO HS 10/09/22 12/02/24 History apixaban 5 mg tablet (Eliquis) 5 mg PO BID #60 tabs 10/10/22 12/02/24 Rx furosemide 20 mg tablet 20 mg PO BID #60 tabs 10/10/22 12/02/24 Rx metoprolol succinate 25 mg 25 mg PO QAM #30 tabs 10/10/22 12/02/24 Rx tablet,extended release 24 hr (Toprol XL) amitriptyline 10 mg tablet 10 mg PO HS 10/20/22 12/02/24 History ropinirole 4 mg tablet 4 mg PO HS 10/20/22 12/02/24 History topiramate 100 mg tablet 200 mg PO BID 10/20/22 12/02/24 History potassium chloride 20 mEq oral 20 meq PO DAILY #30 ea 10/23/22 12/02/24 Rx packet ferrous sulfate 325 mg (65 mg 325 mg PO BID #60 tabs 10/25/22 12/02/24 Rx iron) tablet ciprofloxacin HCl 250 mg tablet 250 mg PO Q12H 12/02/24 12/02/24 History duloxetine 20 mg capsule,delayed 20 mg PO DAILY 12/02/24 12/02/24 History release Allergies Allergy/AdvReac Type Severity Reaction Status Date / Time No Known Drug Allergies Allergy Unknown Verified 07/13/23 13:02 Vital Signs Vital Signs - 24 hr 12/01/24 20:37 12/01/24 21:01 12/01/24 21:30 Temperature 99.9 F H 102.9 F H Pulse Rate 115 H 105 H 110 H Respiratory Rate 22 H 16 18 Blood Pressure 142/106 H 124/89 98/63 L Pulse Oximetry 98 99 98 Oxygen Delivery Non-Rebreather Mask Oxygen Flow Rate 15 Fraction of Inspired Oxygen 12/01/24 21:37 12/01/24 21:39 12/01/24 21:51 Temperature Pulse Rate 108 H 108 H Respiratory Rate 23 H Blood Pressure Pulse Oximetry 97 Oxygen Delivery Non-Rebreather Mask Oxygen Flow Rate 10 Fraction of Inspired Oxygen 12/01/24 21:51 12/01/24 22:02 12/01/24 22:25 Temperature Pulse Rate 108 H 104 H Respiratory Rate 23 H 17 17 Blood Pressure Pulse Oximetry 92 Oxygen Delivery BiPAP Oxygen Flow Rate Fraction of Inspired Oxygen 12/01/24 22:25 12/02/24 00:41 12/02/24 01:16 Temperature 99.6 F Pulse Rate 99 99 Respiratory Rate 15 15 Blood Pressure 132/82 140/76 Pulse Oximetry 93 93 Oxygen Delivery BiPAP Oxygen Flow Rate Fraction of Inspired Oxygen 12/02/24 01:39 12/02/24 01:44 12/02/24 01:48 Temperature Pulse Rate 100 100 97 Respiratory Rate 20 14 18 Blood Pressure Pulse Oximetry 94 Oxygen Delivery BiPAP Oxygen Flow Rate Fraction of Inspired Oxygen 12/02/24 02:36 12/02/24 03:22 Temperature 98.4 F Pulse Rate 102 H Respiratory Rate 24 H Blood Pressure 109/64 Pulse Oximetry 95 Oxygen Delivery BiPAP Oxygen Flow Rate Fraction of Inspired Oxygen 50 Exam Const: General: in distress HENMT: Ears: TM's normal bilaterally Face/Nose/Sinus: Normal nares present Eyes: General: appearance normal, both eyes and all related structures Sclera: sclerae normal Pupils: Equal, round and reactive pupils present Neck: Neck: supple Resp: Effort & Inspection: abnormal respiratory effort Auscultation: wheezes and diminished lung sounds bilateral throughout Cardio: Rate: regular rate Skin: General skin exam: normal color Neuro: Motor exam (neuro): 5/5 motor strength present throughout and Normal motor muscle tone present throughout Sensory Exam: normal sensation Extrem: General: normal to inspection Psych: Mental Status: mental status grossly normal Affect: Anxious affect present H&P: Results Labs Labs: Short CBC 12/01/24 Range/Units 21:03 WBC 14.8 H (4.5-10.0) K/mm3 Hgb 9.8 L (12.0-15.0) g/dL Hct 34.6 L (37.0-47.0) % Plt Count 223 D (150-375) k/mm3 BMP 12/01/24 21:03 Sodium 133 L Potassium 4.6 Chloride 88 L Carbon Dioxide > 40 H BUN 22 H Creatinine 1.06 H Glucose 147 H Calcium 8.5 Cardiac Enzymes 12/01/24 12/01/24 12/02/24 Range/Units 21:03 21:03 01:46 Troponin I Cancelled 0.024 0.024 Liver Function 12/01/24 Range/Units 21:03 Total Bilirubin 1.0 (0.2-1.3) mg/dL AST 16 (14-36) U/L ALT 13 (6-35) U/L Alkaline Phosphatase 85 (38-126) U/L Albumin 3.7 (3.5-5.1) g/dL Urine 12/01/24 Range/Units 22:56 Urine Color Yellow (Yellow) Urine Appearance Clear (Clear) Urine pH 6.0 (5.0-9.0) Ur Specific [place] 1.020 (1.001-1.035) Urine Protein 2+ H (Negative) mg/dL Urine Glucose (UA) Negative (Negative) mg/dL Assessment and Plan Assessment and plan (1) Acute on chronic respiratory failure with hypoxia and hypercapnia: Code(s): J96.21 - Acute and chronic respiratory failure with hypoxia; J96.22 - Acute and chronic respiratory failure with hypercapnia Status: Acute Plan Acute and principal conditions 1. Acute on chronic hypoxia with hypercapnia 2. Community-acquired 3. Fluid overload Rx: A. Zosyn, anti-tussives; DuoNeb; Steroids B. BiPAP; monitor blood gases C. Supplemental oxygen with wean as tolerated D. IV Lasix E. ECHO Chronic and stable conditions 1. Obesity, BMI 42. 2. RLS 3. Hypertension 4. Depression with anxiety. 5. Insomnia 6. GERD. Miscellaneous care 1. Code status. Full 2. VTE prophylaxis. 3. Nutrition. Heart healthy. Hospitalist [facility] Advance Care Plan I have confirmed that the patient's Advanced Care Plan is present, code status is documented, or surrogate decision maker is listed in patient medical record.: Yes Medication Reconciliation I have utilized all available resources to obtain, update and review the patients current medications (includes all prescriptions, OTC, herbals, cannabis, and nutritional supplements).: Yes The patient is not eligible for med reconciliation; the patient is in a emergent medical situation where delaying treatment would jeopardize the patients health.: Yes
[2024-12-02] MEDS: PIPERACILLN/TAZ 3.375GM/NS50ML 3.375 GM/50 ML BAG IVPB ×3 (03:57→17:04)
[2024-12-02 05:09] LABS: Fractional Inspired Oxygen 40 %; HCO3 VBG 31.4 mEq/l (24.0-30.0); PCO2 VBG 51.8 mmHg (42.0-48.0); PO2 VBG 42.5 mmHg (35.0-45.0)
[2024-12-02 05:10] LABS: Device NON-INVASIVE VENT; Non-Invasive Expiratory Pressure 8 CMH2O; Non-Invasive Inspiratory Pressure 16 CMH2O; Non-Invasive Vent Rate 22 /MIN
[2024-12-02 05:16] LABS: Basophils Percent Auto 0.1 % (0.2-1.2); Eosinophils Percent Auto 0.1 % (0-4.4); Hematocrit 35.7 % (37.0-47.0); Hemoglobin 10.1 g/dL (12.0-15.0); Lymphocytes Absolute Auto 0.35 K/mm3 (0.9-3.2); Lymphocytes Percent Auto 3.5 % (18.3-44.2); Mean Corpuscular HGB Conc 28.3 g/dl (32-36); Mean Corpuscular Hemoglobin 26.6 pg (26-34); Mean Corpuscular Volume 94.2 fl (80-100); Mean Platelet Volume 9.3 fl (7.4-10.4); Monocytes Absolute Auto 0.1 K/mm3 (0.1-0.6); Neutrophils Absolute Auto 9.3 K/mm3 (1.3-6.7); Neutrophils Percent Auto 94.3 % (45.5-73.1); Platelet Count Result 207 k/mm3 (150-375); Red Blood Count 3.79 M/mm3 (4.2-5.4); Red Cell Distribution Width 14.8 % (11.5-14.5); White Blood Count 9.9 K/mm3 (4.5-10.0)
[2024-12-02 05:24] LABS: Hemoglobin A1C 5.6 % (<5.7)
[2024-12-02 05:27] LABS: Alanine Aminotransferase 13 U/L (6-35); Albumin Level 3.8 g/dL (3.5-5.1); Alkaline Phosphatase 87 U/L (38-126); Anion Gap 11 mmol/L (4-12); Aspartate Amino Transferase 13 U/L (14-36); Bilirubin,Total 0.6 mg/dL (0.2-1.3); Blood Urea Nitrogen 25 mg/dL (7-17); Carbon Dioxide 32 mmol/L (22-30); Chloride 90 mmol/L (98-107); Cholesterol 146 mg/dL (0-200); Estimated CRCL calculation 56 ml/min; Estimated Glomerular Filt Rate 47; Glucose 210 mg/dL (65-110); HDL Direct 43 mg/dL; Potassium 4.8 mmol/L (3.4-5.0); Sodium 133 mmol/L (137-145); Triglycerides 118 mg/dL (<150)
[2024-12-02 05:43] LABS: LDL Cholesterol Direct < 30 mg/dL
[2024-12-02 05:49] LABS: Band Neutrophils Percent 0 % (0-6); Hypochromasia 1+; Platelet Estimate Adequate (Adequate)
[2024-12-02 05:50] LABS: Schistocytes None Seen
[2024-12-02] MEDS: ESCITALOPRAM OXALATE 10 MG TABLET 20 MG PO (09:36)
[2024-12-02] MEDS: PANTOPRAZOLE 40 MG TABLET PO ×2 (09:36→20:35)
[2024-12-02] MEDS: METOPROLOL SUCCINATE EXT REL 25 MG TABCR PO (09:36)
[2024-12-02] MEDS: FERROUS SULFATE 325 MG TABLET DR PO ×2 (09:36→17:04)
[2024-12-02] MEDS: TOPIRAMATE 100 MG TABLET 200 MG PO ×2 (09:36→20:35)
--- NOTE | 2024-12-02 10:45 | PM.IMPN ---
Progress Note: A&P Assessment and Plan (1) Acute on chronic respiratory failure with hypoxia and hypercapnia: Code(s): J96.21 - Acute and chronic respiratory failure with hypoxia; J96.22 - Acute and chronic respiratory failure with hypercapnia Status: Acute Plan COPD exacerbation: Home O2 Long smoking history Previous exacerbation on 01/14/2024 Multiple comorbid conditions including CHF COPD Exacerbation requiring BiPAP Currently on steroid methylprednisone 60 mg IV q.8 hours No evidence of Pulmonology workup done as OP ECHO ordered Currently on Zosyn Negative for RSV Influenza and COVID CHF exacerbation BNP 758 Continue Lasix 20 mg p.o. b.i.d. monitor renal function during diuresis echocardiogram pending EKG sinus tachycardia Chest x-ray Pulmonary edema Optimize Scooter inhibitors, beta-blockers, ARNI Daily weights. fluid restriction Strict I&O's elevate/Scooter wrap legs if needed Continue metoprolol succinate to 25 mg p.o. q.d. Optimize blood pressure less than 130/80. Fall risk assessment. Subjective Date/time seen: 12/02/24 10:45 Interval history: 64-year-old female with a past medical history of obesity, depression, anxiety, hypertension, insomnia, restless leg syndrome, chronic hypoxia. Patient is admitted in the setting of COPD exacerbation with acute on chronic hypoxia with hypercapnia Pertinent ED labs: WBC 9 point, Hemoglobin 10.1, platelet 207, sodium 133, potassium 4.3, BUN 25, creatinine 1.15, GFR 47 Negative for RSV, COVID, fluid ABG shows pH 7.3, CO2 69.5, O2 68.2, bicarb 34.1, O2 saturation 91.3 Chest x-ray shows cardiomegaly with cardiac decompensation and pulmonary edema. Pneumonitis in the left lower lobe is not excluded Patient is admitted in the setting of COPD exacerbation versus CHF exacerbation. Order echocardiogram. BNP is 758. Review of Systems Review of Systems: All systems reviewed & are unremarkable except as noted in HPI and below Exam Const: General: in distress HENMT: Ears: TM's normal bilaterally Face/Nose/Sinus: Normal nares present Eyes: General: appearance normal, both eyes and all related structures Sclera: sclerae normal Pupils: Equal, round and reactive pupils present Neck: Neck: supple Resp: Effort & Inspection: abnormal respiratory effort Auscultation: wheezes and diminished lung sounds bilateral throughout Cardio: Rate: regular rate Skin: General skin exam: normal color Neuro: Cranial nerves: Yes Equal, round and reactive pupils present Motor exam (neuro): 5/5 motor strength present throughout and Normal motor muscle tone present throughout Sensory Exam: normal sensation Extrem: General: normal to inspection Psych: Mental Status: mental status grossly normal Affect: Anxious affect present Objective Data Vital Signs Vital Signs: Vital Signs - 24 hr 12/01/24 20:37 12/01/24 21:01 12/01/24 21:30 Temperature 99.9 F H 102.9 F H Pulse Rate 115 H 105 H 110 H Respiratory Rate 22 H 16 18 Blood Pressure 142/106 H 124/89 98/63 L Pulse Oximetry 98 99 98 Oxygen Delivery Non-Rebreather Mask Oxygen Flow Rate 15 Fraction of Inspired Oxygen 12/01/24 21:37 12/01/24 21:39 12/01/24 21:51 Temperature Pulse Rate 108 H 108 H Respiratory Rate 23 H Blood Pressure Pulse Oximetry 97 Oxygen Delivery Non-Rebreather Mask Oxygen Flow Rate 10 Fraction of Inspired Oxygen 12/01/24 21:51 12/01/24 22:02 12/01/24 22:25 Temperature Pulse Rate 108 H 104 H Respiratory Rate 23 H 17 17 Blood Pressure Pulse Oximetry 92 Oxygen Delivery BiPAP Oxygen Flow Rate Fraction of Inspired Oxygen 12/01/24 22:25 12/02/24 00:41 12/02/24 01:16 Temperature 99.6 F Pulse Rate 99 99 Respiratory Rate 15 15 Blood Pressure 132/82 140/76 Pulse Oximetry 93 93 Oxygen Delivery BiPAP Oxygen Flow Rate Fraction of Inspired Oxygen 12/02/24 01:39 12/02/24 01:44 12/02/24 01:48 Temperature Pulse Rate 100 100 97 Respiratory Rate 20 14 18 Blood Pressure Pulse Oximetry 94 Oxygen Delivery BiPAP Oxygen Flow Rate Fraction of Inspired Oxygen 12/02/24 02:36 12/02/24 03:22 12/02/24 03:34 Temperature 98.4 F Pulse Rate 102 H 100 Respiratory Rate 24 H 23 H Blood Pressure 109/64 Pulse Oximetry 95 94 Oxygen Delivery BiPAP BiPAP Oxygen Flow Rate Fraction of Inspired Oxygen 50 12/02/24 03:48 12/02/24 04:00 12/02/24 04:24 Temperature 97.0 F L Pulse Rate 106 H 93 101 H Respiratory Rate 25 H Blood Pressure 148/48 H Pulse Oximetry 100 Oxygen Delivery Oxygen Flow Rate Fraction of Inspired Oxygen 12/02/24 06:00 12/02/24 08:00 12/02/24 08:17 Temperature 98.2 F Pulse Rate 90 88 86 Respiratory Rate 22 H 16 Blood Pressure 136/63 Pulse Oximetry 96 Oxygen Delivery Oxygen Flow Rate Fraction of Inspired Oxygen 12/02/24 08:20 Temperature Pulse Rate 88 Respiratory Rate 22 H Blood Pressure Pulse Oximetry 98 Oxygen Delivery BiPAP Oxygen Flow Rate Fraction of Inspired Oxygen Intake/Output Intake/Output: Intake & Output 11/29/24 11/30/24 12/01/24 12/02/24 23:59 23:59 23:59 23:59 Intake Total 100 Balance 100 Meds/Results Medications: Active Medications Generic Name Dose Route Start Last Admin Trade Name Freq PRN Reason Stop Dose Admin Acetaminophen 650 mg 12/02/24 03:29 Acetaminophen 325 Mg Tablet PO Q4H PRN Mild Pain (1-3) or Fever Albuterol/Ipratropium 3 ml 12/02/24 02:00 12/02/24 08:16 Ipratropium 0.5 Mg/Albuterol Sulfate 2.5 Mg Ampul.Neb 3 Ml INHALATION 3 ml Q6HRT YODIT Administration Albuterol/Ipratropium 3 ml 12/02/24 03:30 Ipratropium 0.5 Mg/Albuterol Sulfate 2.5 Mg Ampul.Neb 3 Ml INHALATION Q4HRT PRN shortness of breath/Wheezing Duloxetine HCl 20 mg 12/02/24 09:00 Duloxetine Hcl 20 Mg Capsule. PO DAILY YODIT Escitalopram Oxalate 20 mg 12/02/24 09:00 12/02/24 09:36 Escitalopram Oxalate 10 Mg Tablet PO 20 mg DAILY YODIT Administration Ferrous Sulfate 325 mg 12/02/24 09:00 12/02/24 09:36 Ferrous Sulfate [address] PO 325 mg BID YODIT Administration Guaifenesin/Dextromethorphan 10 ml 12/02/24 03:29 Guaifenesin/Dextromethorphan 10 Ml Udc PO Q4H PRN Cough Heparin Sodium (Porcine) 5,000 units 12/02/24 06:00 12/02/24 06:21 Heparin Sodium 5,000 Units/Ml Vial SUB-Q Not Given Q8HR [facility] Piperacillin/Tazobactam/Dextrose 3.375 gm in 50 mls @ 100 mls/hr 12/02/24 04:00 12/02/24 04:27 Zosyn 3.375 Gm/Ns 50 Ml IVPB Infused Q6HR YODIT Infusion Melatonin 5 mg 12/02/24 03:29 Melatonin 5 Mg Tablet PO HS PRN Insomnia Methylprednisolone Sodium Succinate 60 mg 12/02/24 00:35 12/02/24 06:21 Methylprednisolone Sod Succ 125 Mg Vial IV PUSH 60 mg Q8HR YODIT Administration Metoprolol Succinate 25 mg 12/02/24 09:00 12/02/24 09:36 Metoprolol Succinate Ext Rel 25 Mg Tabcr PO 25 mg QAM YODIT Administration Miscellaneous Information 1 each 12/02/24 00:01 External Med History Indicated Pt Is Taking Duloxetine Dr 20mg Bid Versus Daily, Please C XX 01/01/25 00:00 CLARIFY YODIT Ondansetron HCl 4 mg 12/02/24 00:29 Ondansetron Inj 4 Mg/2 Ml Vial IV PUSH Q4H PRN Nausea Pantoprazole Sodium 40 mg 12/02/24 09:00 12/02/24 09:36 Pantoprazole 40 Mg Tablet PO 40 mg Q12HR YODIT Administration Quetiapine Fumarate 25 mg 12/02/24 21:00 Quetiapine Fumarate 25 Mg Tablet PO HS YODIT Ropinirole HCl 4 mg 12/02/24 21:00 Ropinirole Hcl 1 Mg Tablet PO HS YODIT Topiramate 200 mg 12/02/24 09:00 12/02/24 09:36 Topiramate 100 Mg Tablet PO 200 mg Q12HR YODIT Administration Radiology Results: ITS Impressions Chest X-Ray 12/01/24 21:45 IMPRESSION: Cardiomegaly with cardiac decompensation and pulmonary edema. Pneumonitis in the lower lobes is not excluded Labs Labs: Laboratory Results - last 24 hr 12/01/24 12/01/24 12/01/24 21:03 21:03 21:26 WBC 14.8 H RBC 3.69 L Hgb 9.8 L Hct 34.6 L MCV 93.8 MCH 26.6 MCHC 28.3 L RDW 14.6 H Plt Count 223 D MPV 8.8 Immature Gran % (Auto) 1.1 H Neut % (Auto) 86.0 H Lymph % (Auto) 6.1 L [place] % (Auto) 6.0 Eos % (Auto) 0.6 Baso % (Auto) 0.2 Lymph # (Auto) 0.90 [place] # (Auto) 0.9 H Eos # (Auto) 0.1 Baso # (Auto) 0.0 Abs Immat Gran (auto) 0.16 H Absolute Neuts (auto) 12.7 H Absolute Nucleated RBC 0.000 Band Neutrophils % Not Reportable Nucleated RBC % 0.0 Platelet Estimate Adequate Hypochromasia Stomatocytes 1+ Schistocytes None seen PT 13.7 INR 1.0 APTT 31.9 Puncture Site ABG pH ABG pCO2 ABG pO2 ABG PO2/FiO2 Ratio ABG HCO3 ABG O2 Saturation ABG O2 Content ABG Base Excess VBG pH VBG pCO2 VBG pO2 VBG HCO3 A-a Gradient Oxyhemoglobin Total Hemoglobin O2 Delivery Device O2 Liters/Min Vent Rate FiO2 Expiratory Pressure Inspiratory Pressure Sodium 133 L Potassium 4.6 Chloride 88 L Carbon Dioxide > 40 H Anion Gap BUN 22 H Creatinine 1.06 H Estim Creat Clear Calc 62 Estimated GFR 52 L Glucose 147 H Hemoglobin A1c Lactic Acid 1.5 Calcium 8.5 Magnesium 1.4 L Total Bilirubin 1.0 AST 16 ALT 13 Alkaline Phosphatase 85 Troponin I Cancelled 0.024 NT-Pro-B Natriuret Pep 758 H Total Protein 7.0 Albumin 3.7 Triglycerides Cholesterol LDL Cholesterol Direct HDL Direct Lipase 61 Procalcitonin 0.4 Urine Color Urine Appearance Urine pH Ur Specific [place] Urine Protein Urine Glucose (UA) Urine Ketones Ur Blood (Man) Urine Nitrate Urine Bilirubin Urine Urobilinogen Add Ur Microanalysis Leukocyte Esterase Rfl Urine RBC Urine WBC Ur Squamous Epith Cells Urine Bacteria Urine Casts Hyaline Casts Influenza A (RT-PCR) Negative Influenza B (RT-PCR) Negative RSV (RT-PCR) Negative SARS-CoV-2 RNA (RT-PCR) Negative 12/01/24 12/01/24 12/02/24 21:39 22:56 01:46 WBC RBC Hgb Hct MCV MCH MCHC RDW Plt Count MPV Immature Gran % (Auto) Neut % (Auto) Lymph % (Auto) [place] % (Auto) Eos % (Auto) Baso % (Auto) Lymph # (Auto) [place] # (Auto) Eos # (Auto) Baso # (Auto) Abs Immat Gran (auto) Absolute Neuts (auto) Absolute Nucleated RBC Band Neutrophils % Nucleated RBC % Platelet Estimate Hypochromasia Stomatocytes Schistocytes PT INR APTT Puncture Site Right radial ABG pH 7.337 L ABG pCO2 65.4 H* ABG pO2 103.2 H ABG PO2/FiO2 Ratio 2.06 ABG HCO3 34.3 H ABG O2 Saturation 97.2 ABG O2 Content 16.8 ABG Base Excess 6.5 VBG pH VBG pCO2 VBG pO2 VBG HCO3 A-a Gradient 179.7 Oxyhemoglobin 95.8 Total Hemoglobin 12.4 O2 Delivery Device Non-rebreather mask O2 Liters/Min 10.0 Vent Rate FiO2 50 Expiratory Pressure Inspiratory Pressure Sodium Potassium Chloride Carbon Dioxide Anion Gap BUN Creatinine Estim Creat Clear Calc Estimated GFR Glucose Hemoglobin A1c Lactic Acid Calcium Magnesium Total Bilirubin AST ALT Alkaline Phosphatase Troponin I 0.024 NT-Pro-B Natriuret Pep Total Protein Albumin Triglycerides Cholesterol LDL Cholesterol Direct HDL Direct Lipase Procalcitonin Urine Color Yellow Urine Appearance Clear Urine pH 6.0 Ur Specific [place] 1.020 Urine Protein 2+ H Urine Glucose (UA) Negative Urine Ketones Negative Ur Blood (Man) Negative Urine Nitrate Negative Urine Bilirubin Negative Urine Urobilinogen 0.2 Add Ur Microanalysis Reviewed Leukocyte Esterase Rfl Negative Urine RBC 0-2 Urine WBC 0-5 Ur Squamous Epith Cells Occasional Urine Bacteria None seen Urine Casts 11-20 Hyaline Casts Present Influenza A (RT-PCR) Influenza B (RT-PCR) RSV (RT-PCR) SARS-CoV-2 RNA (RT-PCR) 12/02/24 12/02/24 12/02/24 01:47 04:37 05:00 WBC 9.9 RBC 3.79 L Hgb 10.1 L Hct 35.7 L MCV 94.2 MCH 26.6 MCHC 28.3 L RDW 14.8 H Plt Count 207 MPV 9.3 Immature Gran % (Auto) 1.0 H Neut % (Auto) 94.3 H Lymph % (Auto) 3.5 L [place] % (Auto) 1.0 L Eos % (Auto) 0.1 Baso % (Auto) 0.1 L Lymph # (Auto) 0.35 L [place] # (Auto) 0.1 Eos # (Auto) 0.0 Baso # (Auto) 0.0 Abs Immat Gran (auto) 0.10 H Absolute Neuts (auto) 9.3 H Absolute Nucleated RBC 0.000 Band Neutrophils % 0 Nucleated RBC % 0.0 Platelet Estimate Adequate Hypochromasia 1+ Stomatocytes Schistocytes None seen PT INR APTT Puncture Site Right radial ABG pH 7.309 L ABG pCO2 69.5 H* ABG pO2 68.2 L ABG PO2/FiO2 Ratio 1.70 ABG HCO3 34.1 H ABG O2 Saturation 91.3 L ABG O2 Content 14.3 L ABG Base Excess 6.1 VBG pH 7.400 VBG pCO2 51.8 H VBG pO2 42.5 VBG HCO3 31.4 H A-a Gradient 137.1 Oxyhemoglobin 91.5 Total Hemoglobin 11.1 L O2 Delivery Device Bipap Non-invasive vent O2 Liters/Min Not Reportable Not Reportable Vent Rate 22 FiO2 40 40 Expiratory Pressure 5 8 Inspiratory Pressure 15 16 Sodium 133 L Potassium 4.8 Chloride 90 L Carbon Dioxide 32 H Anion Gap 11 BUN 25 H Creatinine 1.15 H Estim Creat Clear Calc 56 Estimated GFR 47 L Glucose 210 H Hemoglobin A1c 5.6 Lactic Acid Calcium 9.0 Magnesium Total Bilirubin 0.6 AST 13 L ALT 13 Alkaline Phosphatase 87 Troponin I NT-Pro-B Natriuret Pep Total Protein 7.0 Albumin 3.8 Triglycerides 118 Cholesterol 146 LDL Cholesterol Direct < 30 HDL Direct 43 Lipase Procalcitonin Urine Color Urine Appearance Urine pH Ur Specific [place] Urine Protein Urine Glucose (UA) Urine Ketones Ur Blood (Man) Urine Nitrate Urine Bilirubin Urine Urobilinogen Add Ur Microanalysis Leukocyte Esterase Rfl Urine RBC Urine WBC Ur Squamous Epith Cells Urine Bacteria Urine Casts Hyaline Casts Influenza A (RT-PCR) Influenza B (RT-PCR) RSV (RT-PCR) SARS-CoV-2 RNA (RT-PCR) Hospitalist [facility] Advance Care Plan I have confirmed that the patient's Advanced Care Plan is present, code status is documented, or surrogate decision maker is listed in patient medical record.: Yes Medication Reconciliation I have utilized all available resources to obtain, update and review the patients current medications (includes all prescriptions, OTC, herbals, cannabis, and nutritional supplements).: Yes
--- NOTE | 2024-12-02 11:17 | PM.CNPUL ---
Assessment and Plan Assessment and plan (1) Chronic obstructive pulmonary disease: Code(s): J44.9 - Chronic obstructive pulmonary disease, unspecified Status: Chronic Assessment and Plan: Regarding her COPD the patient has been on oxygen for the last 5 years. I have no PFTs. She is using 5 L at rest with home saturations 92-96%. For CT scan in our system is from 08/27/2022 and this shows mild apical predominant centrilobular emphysema. She is using 6 L with activity but even with walking room to room her saturations go into the mid 70s. Patient is maintained on trelegy inhaler but she does not use a because of the taste. Patient takes montelukast 10 and albuterol p.r.n.. Patient follows with a certification technician in [place] Dr. Zamorano. Patient has chronic hypercarbic respiratory failure from her COPD with a blood gas of 7.34/65/103 and a serum bicarbonate greater than 40. She would benefit from a noninvasive ventilation. Patient was placed on BiPAP but could not tolerate these settings because the flow in pressures were too high. I will initiate the process for a home noninvasive ventilator with the AVAPS mode. 12/02/24: patient with a history of COPD, worsening cough, shortness of breath and hypoxemia. She says she has had no change in her phlegm production. No wheezing currently. Plan: will treat the patient for COPD exacerbation and will continue Solu-Medrol 60 Q 8. Will change to prednisone 40 mg p.o. q.day on 12/03/2024. Continue DuoNebs q.6 hours. Continue montelukast 10. Patient has a history of UTI and was started on ciprofloxacin on 12/01/2024. Patient currently on Zosyn. Will add azithromycin. Goal saturation 90-94%. Adjust study oxygen accordingly. I will send respiratory pathogen panel, mycoplasma IgM antibody, urine pneumococcal, urine Legionella studies looking for infectious etiology. I will send alpha 1 anti trypsin genotype and level looking for genetic predisposition for her COPD. Patient has a positive D-dimer and I will check a CT angiogram of the chest, she has swelling of the lower extremities and upper extremities bilaterally and I will get upper and lower extremity Dopplers. Echocardiogram has been ordered. Discussed with family in room and Dr. Farfan, will follow with you. (2) Chronic hypercapnic respiratory failure: Code(s): J96.12 - Chronic respiratory failure with hypercapnia Status: Acute Assessment and Plan: Patient has chronic hypercarbic respiratory failure from her COPD with a blood gas of 7.34/65/103 and a serum bicarbonate greater than 40. She would benefit from a noninvasive ventilation. Patient was placed on BiPAP but could not tolerate these settings because the flow in pressures were too high. I will initiate the process for a home noninvasive ventilator with the AVAPS mode. 12/02/2024: When I enter the room the patient was on BiPAP in no respiratory distress. Patient told me the machine and the breathing was uncomfortable and that she would not be able to sleep with this. I changed her to noninvasive ventilator with the AVAS mode an adjusted settings to comfort resulting in a rate of 14, tidal volume 500, EPAP 5, minimal inspiratory pressure 6, maximal inspiratory pressure 25, inspiratory time 1.0, rise of 1 which is are fast this and it and 40% FiO2. She was able to tolerate these settings. She felt she could come off of the BiPAP and I placed her on 5 L nasal cannula and after 12 minutes her saturations were 92%. Plan: Patient can use noninvasive ventilation with the AVAPS mode p.r.n. during the day but should wear this at night. I will perform an overnight oximetry and ABG prior to removal on these settings. History of Present Illness History of Present Illness Consult date: 12/02/24 Chief complaint: Acute hypoxic/hypercapnic respiratory failure, [employer] Narrative: 12/02/2024: This is a new pulmonary consult for acute on chronic hypercarbic and hypoxemic respiratory failure. 64-year-old with a history of hypertension, restless legs syndrome, anxiety and COPD. Regarding her COPD the patient has been on oxygen for the last 5 years. I have no PFTs. She is using 5 L at rest with home saturations 92-96%. For CT scan in our system is from 08/27/2022 and this shows mild apical predominant centrilobular emphysema. She is using 6 L with activity but even with walking room to room her saturations go into the mid 70s. Patient is maintained on trelegy inhaler but she does not use a because of the taste. Patient takes montelukast 10 and albuterol p.r.n.. Patient follows with a certification technician in [place] Dr. Zamorano. Patient is currently on BiPAP and family is in the room who aids with history. For the last 2-3 weeks patient has had worsening shortness of breath, wheezing, cough with no phlegm production, swelling of the legs and abdomen. She was diagnosed with the UTI on 12/01/2024 and started on ciprofloxacin. Later the night, She had worsening hypoxemia and yesterday she could not keep her saturations up and presented to the emergency room. in the emergency room her blood pressure was 142/106, heart rate 115, respirations 22 and on 15 L non-rebreather her saturation were 98%. Patient had white blood cell count of 14.8 was 0.6% eosinophils equals 89 per micro L, creatinine 1.16, serum bicarbonate greater than 40, COVID influenza and RSV RT PCR study negative. ABG on 10 L non-rebreather was 7.34/65/103. Procalcitonin was 0.4. BNP was 758. Chest x-ray showed pulmonary congestion with left greater than right interstitial infiltrates. Patient was treated for COPD exacerbation, pneumonia, fluid overload. 12/02/2024: When I enter the room the patient was on BiPAP in no respiratory distress. She was awake communicative and following simple commands. The patient told me she was breathing back to her normal. She complained of some dizziness but denied fever, chills, rigors, wheezing, phlegm production or hemoptysis. She said her coughing is slightly increased compared to her baseline. Patient was on BiPAP rate of 22, pressures 16/8 with tidal volumes 880 inspiratory time 1.0 with a blood gas of 7.40/52/43. patient told me the machine and the breathing was uncomfortable and that she would not be able to sleep with this. I changed her to noninvasive ventilator with the AVAS mode an adjusted settings to comfort resulting in a rate of 14, tidal volume 500, EPAP 5, minimal inspiratory pressure 6, maximal inspiratory pressure 25, inspiratory time 1.0, rise of 1 which is are fast this and it and 40% FiO2. She was able to tolerate these settings. She felt she could come off of the BiPAP and I placed her on 5 L nasal cannula and after 12 minutes her saturations were 92%. DATA 12/17/2023: CT Scan of the Chest without Contrast: Clinical Indication: Lung cancer screening, nicotine dependence Technique: Contiguous sections were acquired throughout the chest without intravenous contrast. Dose reduction technique was used on this scan by utilizing automated exposure control and iterative reconstruction technique. The dose-length product (DLP) was 341.26 mGy-cm. COMPARISON: 04/06/2023 Findings: Stable enlarged left thyroid lobe. There is no evidence of any significant mediastinal, hilar or axillary lymphadenopathy. Atherosclerotic calcifications of the aorta are present. There is no evidence of pleural or pericardial effusion. There is irregular airspace opacity in the posterior right lower lobe, improved from prior exam, likely representing postinflammatory change, as there is a previous more extensive area of consolidation in this location. Mild emphysema. Images through the upper abdomen reveal no abnormalities. Impression: Lung RADS 2: Benign appearance. 12 month follow-up screening CT advised. 09/10/2022: Echo Summary 1. Technically difficult study with limited views. Regional wall motion assessment limited due to poor endomyocardial border definition despite definity contrast enhancement. 2. Left ventricular chamber dimension is normal. 3. Left ventricular systolic function is normal, estimated at 65-70%. 4. There is mildly increased left ventricular wall thickness. 5. Right ventricular chamber dimension is normal. 6. Right ventricular systolic function is moderately reduced. TAPSE 1.3. 7. There is trace tricuspid valve regurgitation. 8. Mild pulmonary hypertension, estimated pulmonary arterial systolic pressure is 37 mmHg. 9. Normal inferior vena cava with <50% collapse upon inspiration consistent with elevated right atrial pressure, 10 mmHg. 08/28/2022: Summary 1. Left ventricular chamber dimension is normal. 2. Left ventricular systolic function is normal, estimated at 60-65%. 3. The left ventricular diastolic function is grade I diastolic dysfunction. 4. Right ventricular chamber dimension is moderately enlarged. 5. Right ventricular systolic function is normal. 6. There is moderate tricuspid valve regurgitation, which may be underestimated due to the eccentricity of the jet. 7. Dilated inferior vena cava with no collapse upon inspiration consistent with elevated right atrial pressure, 15 mmHg. 8. Pulmonary hypertension with an estimated PASP of 59mmHg. Right Ventricle Right ventricular chamber dimension is moderately enlarged. Right ventricular systolic function is normal. Right Atria Right atrial chamber dimension is normal. Atrial Septum Intact interatrial septum visualized by color flow imaging. 08/27/2022: EXAMINATION: CT chest high resolution wo co DATE: 08/27/2022 16:07 INDICATION: respiratory failure TECHNIQUE: Computed tomography (CT) of the chest was performed without intravenous contrast. Automated exposure control and iterative reconstruction technique were employed. The dose-length product was 818.52 mGy-cm. COMPARISON: X-ray chest 08/27/2022 and CTA chest 07/21/2018. FINDINGS: CHEST: Endotracheal tube terminating 2.5 cm above the maria esther. Thoracic aorta: No significant dilation. Moderate arch calcification. Lung parenchyma and airways: Diffuse tree-in-bud opacities most evident in the right lung. Scattered centrilobular nodular opacities measuring up to 11 mm in the right upper lobe. Mild interlobular septal thickening. Bibasilar dependent opacities likely representing atelectasis. Mild emphysematous change. Thoracic inlet, axillae and chest wall: No thyroid or soft tissue mass. No axillary lymphadenopathy. Mediastinum: Mediastinal lymphadenopathy. Dilated central pulmonary arteries as can be seen with pulmonary arterial hypertension. Heart and pericardium: Normal heart size. Aortic valve calcification. No pericardial effusion. Coronary artery calcifications: Mild. Pleura: Trace bilateral pleural fluid. Upper abdomen: No significant finding. Thoracic bones: No acute osseous finding in the chest. IMPRESSION: 1. Tree-in-bud opacities as can be seen with atypical infection (including but not limited to: MAC, TB, fungal), ABPA, airways disease, and less likely aspiration. 2. Nodular opacity in right upper lobe should be followed after the appropriate therapy and cessation of symptoms to ensure resolution. 3. Mediastinal lymphadenopathy. 4. Trace bilateral pleural effusions. 5. Mild interstitial edema. Review of Systems Constitutional: Constitutional: Reports no additional constitutional complaints Eyes: Eyes: Reports no additional eye complaints ENT: Reports system reviewed and no additional complaints, except as documented Cardiovascular: Cardiovascular: Reports no additional cardiovascular complaints Respiratory: Respiratory: Reports no additional respiratory complaints Gastrointestinal: Gastrointestinal: Reports no additional gastrointestinal complaints Musculoskeletal: Musculoskeletal: Reports no additional musculoskeletal complaints Neurologic: Reports system reviewed and no additional complaints, except as documented Psychiatric: Psychiatric: Reports no additional psychiatric complaints Endocrine: Endocrine: Reports no additional endocrine complaints Hematologic/Lymphatic: Hematologic/Lymphatic: Reports no additional hematologic/lymphatic complaints Allergic/Immunologic: Allergic/Immunologic: Reports no additional allergic/immunologic complaints FOR[facility]LY [facility] Past Medical History Medical History Acute exacerbation of chronic obstructive pulmonary disease C. difficile colitis Renal failure Requiring temporary dialysis and CRRT in 09/15. Staphylococcus epidermidis bacteremia (08/2022) Diastolic dysfunction Echo in August 2022 showed normal LV function with an EF of 60 to 65%, grade 1 diastolic dysfunction, moderate enlarged right ventricular chamber, normal right ventricular systolic function, moderate tricuspid valve regurgitation, and pulmonary hypertension with an estimated PASP of 59 mmHg. Normocytic anemia Atrial flutter with rapid ventricular response Bacteremia Shock Obesity (BMI 30-39.9) Sepsis Urinary tract infection Acute kidney injury Encephalopathy Chronic anticoagulation Gastroesophageal reflux disease Cerebrovascular accident Pneumonia Chronic obstructive pulmonary disease Acute on chronic respiratory failure with hypoxia and hypercapnia Jugular vein thrombosis 2019 novel coronavirus-infected pneumonia (NCIP) Congestive heart failure COPD (chronic obstructive pulmonary disease) Surgical History Surgical History History of cholecystectomy History of 3 sections History of left knee replacement Family History Family History Father Hypertension Acute myocardial infarction Sibling Hypertension Mother Family history of heart disease in male family member before age 55 Brother Acute myocardial infarction Father Acute myocardial infarction Other Cerebrovascular accident Family history of cardiovascular disease Social History Social History Social History: Surrogate medical decision maker: Sai Shin, brother. Code status: Full code. Smoking packs per day: 1 Smoking cigarettes per day: 20.0 Years smoked: 50 Smoking pack-years: 50.00 Smoking status: Former smoker Tobacco type: cigarettes Second hand tobacco smoke exposure: Yes Smoking end date: 08/23/22 Alcohol intake: never Drinks per week: 0 Substance use: never Do You Feel Safe in your Home?: Yes Lack of Transportation: No Lack of Food: Never True Current Housing: I Have Housing Concerned About Future Housing: No Difficulty Paying Gas/Electric Bills: No Difficulty Paying for Meds: No Currently Unemployed: No Education: High School Diploma/GED Difficulty w/ Childcare or Family Care: No Living arrangements: with family Additional living arrangements comments: Lives with family in [place]. 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 Spiritual care concerns: No Meds Home Medications and Allergies Home Medications ?Medication ?Instructions ?Recorded ?Confirmed ?Type escitalopram oxalate 20 mg tablet 20 mg PO DAILY 09/07/21 12/02/24 History montelukast 10 mg tablet 10 mg PO DAILY 09/07/21 12/02/24 History omeprazole 40 mg capsule,delayed 40 mg PO DAILY 09/07/21 12/02/24 History release trazodone 50 mg tablet 50 mg PO HS 09/07/21 12/02/24 History albuterol sulfate 90 mcg/actuation 2 puff inhalation QID PRN 09/16/21 12/02/24 Rx aerosol inhaler (Proventil HFA) shortness of breath #1 BA unit magnesium hydroxide 400 mg/5 mL 30 ml PO HS PRN Constipation 10/09/22 12/02/24 History oral suspension (Milk of Magnesia) melatonin 5 mg capsule 5 mg PO HS PRN Insomnia 10/09/22 12/02/24 History quetiapine 25 mg tablet 25 mg PO HS 10/09/22 12/02/24 History apixaban 5 mg tablet (Eliquis) 5 mg PO BID #60 tabs 10/10/22 12/02/24 Rx furosemide 20 mg tablet 20 mg PO BID #60 tabs 10/10/22 12/02/24 Rx metoprolol succinate 25 mg 25 mg PO QAM #30 tabs 10/10/22 12/02/24 Rx tablet,extended release 24 hr (Toprol XL) amitriptyline 10 mg tablet 10 mg PO HS 10/20/22 12/02/24 History ropinirole 4 mg tablet 4 mg PO HS 10/20/22 12/02/24 History topiramate 100 mg tablet 200 mg PO BID 10/20/22 12/02/24 History potassium chloride 20 mEq oral 20 meq PO DAILY #30 ea 10/23/22 12/02/24 Rx packet ferrous sulfate 325 mg (65 mg 325 mg PO BID #60 tabs 10/25/22 12/02/24 Rx iron) tablet ciprofloxacin HCl 250 mg tablet 250 mg PO Q12H 12/02/24 12/02/24 History duloxetine 20 mg capsule,delayed 20 mg PO DAILY 12/02/24 12/02/24 History release Allergies Allergy/AdvReac Type Severity Reaction Status Date / Time No Known Drug Allergies Allergy Unknown Verified 07/13/23 13:02 Vital Signs Vital Signs - 24 hr 12/01/24 20:37 12/01/24 21:01 12/01/24 21:30 Temperature 37.7 C H 39.4 C H Pulse Rate 115 H 105 H 110 H Respiratory Rate 22 H 16 18 Blood Pressure 142/106 H 124/89 98/63 L Pulse Oximetry 98 99 98 Oxygen Delivery Non-Rebreather Mask Oxygen Flow Rate 15 Fraction of Inspired Oxygen 12/01/24 21:37 12/01/24 21:39 12/01/24 21:51 Temperature Pulse Rate 108 H 108 H Respiratory Rate 23 H Blood Pressure Pulse Oximetry 97 Oxygen Delivery Non-Rebreather Mask Oxygen Flow Rate 10 Fraction of Inspired Oxygen 12/01/24 21:51 12/01/24 22:02 12/01/24 22:25 Temperature Pulse Rate 108 H 104 H Respiratory Rate 23 H 17 17 Blood Pressure Pulse Oximetry 92 Oxygen Delivery BiPAP Oxygen Flow Rate Fraction of Inspired Oxygen 12/01/24 22:25 12/02/24 00:41 12/02/24 01:16 Temperature 37.6 C Pulse Rate 99 99 Respiratory Rate 15 15 Blood Pressure 132/82 140/76 Pulse Oximetry 93 93 Oxygen Delivery BiPAP Oxygen Flow Rate Fraction of Inspired Oxygen 12/02/24 01:39 12/02/24 01:44 12/02/24 01:48 Temperature Pulse Rate 100 100 97 Respiratory Rate 20 14 18 Blood Pressure Pulse Oximetry 94 Oxygen Delivery BiPAP Oxygen Flow Rate Fraction of Inspired Oxygen 12/02/24 02:36 12/02/24 03:22 12/02/24 03:34 Temperature 36.9 C Pulse Rate 102 H 100 Respiratory Rate 24 H 23 H Blood Pressure 109/64 Pulse Oximetry 95 94 Oxygen Delivery BiPAP BiPAP Oxygen Flow Rate Fraction of Inspired Oxygen 50 12/02/24 03:48 12/02/24 04:00 12/02/24 04:24 Temperature 36.1 C L Pulse Rate 106 H 93 101 H Respiratory Rate 25 H Blood Pressure 148/48 H Pulse Oximetry 100 Oxygen Delivery Oxygen Flow Rate Fraction of Inspired Oxygen 12/02/24 06:00 12/02/24 08:00 12/02/24 08:00 Temperature 36.8 C Pulse Rate 90 88 Respiratory Rate 22 H Blood Pressure 136/63 Pulse Oximetry 96 98 Oxygen Delivery BiPAP Oxygen Flow Rate Fraction of Inspired Oxygen 45 12/02/24 08:17 12/02/24 08:20 Temperature Pulse Rate 86 88 Respiratory Rate 16 22 H Blood Pressure Pulse Oximetry 98 Oxygen Delivery BiPAP Oxygen Flow Rate Fraction of Inspired Oxygen Exam Const: General: cooperative, healthy appearing and comfortable Orientation/consciousness: oriented to person, oriented to place and oriented to time HENMT: Head: normal to inspection Ears: hearing grossly normal bilaterally Eyes: General: appearance normal, both eyes and all related structures Neck: Neck: normal visual inspection Chest: Chest palpation & inspection: normal inspection of the chest Resp: Effort & Inspection: normal respiratory effort and able to speak in complete sentences Auscultation: no crackles, no rales, no rhonchi, no wheezes and diminished lung sounds Cardio: Jugular venous distension: no JVD GI: Inspection: normal to inspection GI Palp: No abdominal tenderness Skin: General skin exam: normal color Neuro: General: oriented to person, oriented to place and oriented to time Extrem: General: edema Other: pitting edema upper and lower extremities Psych: Appearance: grossly normal Results Laboratory Findings 12/02/24 04:37 12/02/24 04:37 ABG, PT/INR, D-dimer: ABG ABG pH 7.309 (7.350-7.450) L 12/02/24 01:47 ABG pCO2 69.5 mmHg (35.0-45.0) H* 12/02/24 01:47 ABG pO2 68.2 mmHg (80.0-100.0) L 12/02/24 01:47 ABG O2 Saturation 91.3 % (95.0-100.0) L 12/02/24 01:47 PT/INR, D-dimer PT 13.7 Seconds (11.1-14.7) 12/01/24 21:03 INR 1.0 12/01/24 21:03 Abnormal lab findings: Abnormal Labs 12/01/24 12/01/24 12/01/24 21:03 21:39 22:56 WBC 14.8 H RBC 3.69 L Hgb 9.8 L Hct 34.6 L MCHC 28.3 L RDW 14.6 H Immature Gran % (Auto) 1.1 H Neut % (Auto) 86.0 H Lymph % (Auto) 6.1 L [place] % (Auto) Baso % (Auto) Lymph # (Auto) [place] # (Auto) 0.9 H Abs Immat Gran (auto) 0.16 H Absolute Neuts (auto) 12.7 H ABG pH 7.337 L ABG pCO2 65.4 H* ABG pO2 103.2 H ABG HCO3 34.3 H ABG O2 Saturation ABG O2 Content VBG pCO2 VBG HCO3 Total Hemoglobin Sodium 133 L Chloride 88 L Carbon Dioxide > 40 H BUN 22 H Creatinine 1.06 H Estimated GFR 52 L Glucose 147 H Magnesium 1.4 L AST NT-Pro-B Natriuret Pep 758 H Urine Protein 2+ H 12/02/24 12/02/24 12/02/24 01:47 04:37 05:00 WBC RBC 3.79 L Hgb 10.1 L Hct 35.7 L MCHC 28.3 L RDW 14.8 H Immature Gran % (Auto) 1.0 H Neut % (Auto) 94.3 H Lymph % (Auto) 3.5 L [place] % (Auto) 1.0 L Baso % (Auto) 0.1 L Lymph # (Auto) 0.35 L [place] # (Auto) Abs Immat Gran (auto) 0.10 H Absolute Neuts (auto) 9.3 H ABG pH 7.309 L ABG pCO2 69.5 H* ABG pO2 68.2 L ABG HCO3 34.1 H ABG O2 Saturation 91.3 L ABG O2 Content 14.3 L VBG pCO2 51.8 H VBG HCO3 31.4 H Total Hemoglobin 11.1 L Sodium 133 L Chloride 90 L Carbon Dioxide 32 H BUN 25 H Creatinine 1.15 H Estimated GFR 47 L Glucose 210 H Magnesium AST 13 L NT-Pro-B Natriuret Pep Urine Protein Diagnostic Findings Additional studies: ITS Impressions Chest X-Ray 12/01/24 21:45 IMPRESSION: Cardiomegaly with cardiac decompensation and pulmonary edema. Pneumonitis in the lower lobes is not excluded
[2024-12-02 11:21] LABS: Alveolar/Arterial O2 Gradient 136.4 mmHg; Base Excess ABG 11.3 mEq/l (+/-2.0); Fractional Inspired Oxygen 40 %; Oxygen Content ABG 13.5 %vol (16.0-22.0); Oxygen Saturation ABG 91.6 % (95.0-100.0); Oxyhemoglobin 92.5 % THb (90.0-100.0); PO2 ABG 66.7 mmHg (80.0-100.0); PO2 FiO2 Ratio Arterial Blood 1.67 %; Total Hemoglobin 10.3 g/dL (12.0-18.0); pH ABG 7.355 (7.350-7.450)
[2024-12-02 11:23] LABS: PCO2 ABG 71.4 mmHg (35.0-45.0)
[2024-12-02 11:24] LABS: Device BIPAP; Expiratory Pressure 8 cmH2O; Inspiratory Pressure 16 cmH2O; Modified Allen's Test Pass; Site Drawn RIGHT RADIAL
[2024-12-02 12:07] LABS: D Dimer 2.17 ug/mL (<0.48)
--- NOTE | 2024-12-02 12:41 | PC.NURSE ---
On 12/02/24, the student, [Susu Hinkle], provided care and completed [facility] documentation on this patient. I have reviewed the student's documentation and agree with the findings.
[2024-12-02] MEDS: PERFLUTREN LIPID MICROSPHERES 1.5 ML VIAL DILUTED TO 10 ML TOTAL VOLUME IV PUSH (14:35)
--- NOTE | 2024-12-02 15:04 | IVDEFINITY ---
Prior to administration of IV Definity the patient was educated on the risks and benefits of the imaging enhancing agent including potential adverse side effects. The patient verbalized understanding. Allergies were verified. No exclusion criteria were identified and at least one of the following inclusion criteria were met: 1) physician request, 2) patient technically difficult to image (per the [place] [employer] guidelines of two or more segments not discernable within the apical view), or 3) questionable left ventricular function. ?
[2024-12-02] MEDS: AZITHROMYCIN 500 MG/NS 250 ML 500 MG/250 ML BAG 250 MG IVPB (17:04)
[2024-12-02] MEDS: QUEtiapine FUMARATE 25 MG TABLET PO (20:35)
[2024-12-02] MEDS: rOPINIRole HCL 1 MG TABLET 4 MG PO (20:35)
[2024-12-02] MEDS: AMITRIPTYLINE HCL 10 MG TABLET PO (20:35)
[2024-12-02] MEDS: traZODone HCL 50 MG TABLET PO (20:35)
[2024-12-03] VITALS (34 sets, daily range): BP systolic 103–167; BP diastolic 51–97; PULSE 64–170; RESP 15–23; TEMP 36.7–37.2; O2SAT 92–99
[2024-12-03] MEDS: PIPERACILLN/TAZ 3.375GM/NS50ML 3.375 GM/50 ML BAG IVPB ×5 (00:58→23:17)
--- NOTE | 2024-12-03 01:11 | PCRCNOTE ---
Patient is on an overnight sleep study, therefore her 0200 breathing tx was not given. See next scheduled tx
[2024-12-03 05:11] LABS: Alveolar/Arterial O2 Gradient 117.6 mmHg; Base Excess ABG 11.7 mEq/l (+/-2.0); Fractional Inspired Oxygen 40 %; HCO3 ABG 37.8 mEq/l (22.0-26.0); Oxygen Content ABG 14.7 %vol (16.0-22.0); Oxygen Saturation ABG 97.6 % (95.0-100.0); Oxyhemoglobin 97.5 % THb (90.0-100.0); PCO2 ABG 58.1 mmHg (35.0-45.0); PO2 ABG 100.8 mmHg (80.0-100.0); PO2 FiO2 Ratio Arterial Blood 2.52 %; Total Hemoglobin 10.6 g/dL (12.0-18.0); pH ABG 7.431 (7.350-7.450)
[2024-12-03 05:14] LABS: Device OTHER DEVICE; Modified Allen's Test Pass; Site Drawn RIGHT RADIAL
[2024-12-03 05:49] LABS: Basophils Percent Auto 0.1 % (0.2-1.2); Hematocrit 31.2 % (37.0-47.0); Hemoglobin 9.4 g/dL (12.0-15.0); Immature Granulocyte Absolute 0.08 K/mm3 (0.00-0.031); Immature Granulocyte Percent A 0.7 % (0-0.5); Lymphocytes Absolute Auto 1.29 K/mm3 (0.9-3.2); Lymphocytes Percent Auto 10.7 % (18.3-44.2); Mean Corpuscular HGB Conc 30.1 g/dl (32-36); Mean Corpuscular Volume 89.7 fl (80-100); Mean Platelet Volume 9.5 fl (7.4-10.4); Monocytes Absolute Auto 1.1 K/mm3 (0.1-0.6); Monocytes Percent Auto 8.8 % (2.6-8.5); Neutrophils Absolute Auto 9.7 K/mm3 (1.3-6.7); Neutrophils Percent Auto 79.7 % (45.5-73.1); Platelet Count Result 236 k/mm3 (150-375); Red Blood Count 3.48 M/mm3 (4.2-5.4); Red Cell Distribution Width 14.6 % (11.5-14.5); White Blood Count 12.1 K/mm3 (4.5-10.0)
[2024-12-03 06:01] LABS: Alanine Aminotransferase 12 U/L (6-35); Albumin Level 3.6 g/dL (3.5-5.1); Alkaline Phosphatase 76 U/L (38-126); Anion Gap 4 mmol/L (4-12); Aspartate Amino Transferase 15 U/L (14-36); Bilirubin,Total 0.5 mg/dL (0.2-1.3); Blood Urea Nitrogen 32 mg/dL (7-17); Calcium 9.1 mg/dL (8.4-10.2); Carbon Dioxide 38 mmol/L (22-30); Chloride 94 mmol/L (98-107); Estimated CRCL calculation 51 ml/min; Estimated Glomerular Filt Rate 41; Glucose 131 mg/dL (65-110); Potassium 4.2 mmol/L (3.4-5.0); Sodium 136 mmol/L (137-145)
[2024-12-03 06:24] LABS: Alpha-1-Antitrypsin, QN 135 mg/dL (83-199)
[2024-12-03 07:37] LABS: NT Pro B Type Natriuretic Pept 972 pg/mL (19.9-100)
[2024-12-03 08:23] LABS: Procalcitonin 0.3 ng/mL
[2024-12-03] MEDS: IPRATROPIUM 0.5 MG/ALBUTEROL SULFATE 2.5 MG AMPUL.NEB 3 ML INHALATION (08:32)
[2024-12-03] MEDS: predniSONE 20 MG TABLET 40 MG PO (08:46)
[2024-12-03] MEDS: METOPROLOL SUCCINATE EXT REL 25 MG TABCR PO (08:46)
[2024-12-03] MEDS: ESCITALOPRAM OXALATE 10 MG TABLET 20 MG PO (08:47)
[2024-12-03] MEDS: TOPIRAMATE 100 MG TABLET 200 MG PO ×2 (08:47→21:14)
[2024-12-03] MEDS: MONTELUKAST SODIUM 10 MG TABLET PO (08:47)
[2024-12-03] MEDS: FERROUS SULFATE 325 MG TABLET DR PO ×2 (08:47→17:14)
[2024-12-03] MEDS: PANTOPRAZOLE 40 MG TABLET PO ×2 (08:47→21:15)
[2024-12-03] MEDS: POTASSIUM CHLORIDE 20 MEQ PACKET (FOR LIQUID) PO (08:51)
--- NOTE | 2024-12-03 08:58 | PC.NURSE ---
made aware that status post duo neb treatment, patient heart rate increased 145-150. Orders recieved at this time, see eMAR.
[2024-12-03] MEDS: METOPROLOL TARTRATE INJ 5 MG/5 ML VIAL 2.5 MG IV PUSH ×2 (09:06→09:15)
--- NOTE | 2024-12-03 09:08 | PC.NURSE ---
Per MD gutiérrez, blood pressure taken status post Metoprol given IV (see eMAR) 150/97, HR 144, Oxygen saturation 94% on 5L. Patient denies chest pain or discomfort, however states she feels tired and needs to rest. Orders recieved to give the rest 2.5mg of Metoprolol IV if BP stable. Orders placed.
--- NOTE | 2024-12-03 09:20 | ECG_ITS ---
Test Date: 2024-12-03 09:29:59 Measurements Intervals Clyman Rate: 166 P: 0 VA: 0 QRS: 32 QRSD: 133 T: 12 QT: 277 QTc: 461 Interpretive Statements ATRIAL FIBRILLATION WITH RAPID VENTRICULAR RESPONSE RIGHT BUNDLE BRANCH BLOCK BASELINE ARTIFACT- II, III, AVF ABNORMAL ECG Compared to ECG 12/01/2024 21:07:02 Sinus tachycardia no longer present Electronically Signed On 12-03-2024 10:07:00 CDT by Hong Meade D.O.
--- NOTE | 2024-12-03 09:21 | PC.NURSE ---
MD called and made aware of ongoing increased heart rate s/p IV metoprolol. New orders recieved to start Cardizem gtt and get EKG at this time.
--- NOTE | 2024-12-03 09:26 | PM.IMPN ---
Progress Note: A&P Assessment and Plan (1) Acute on chronic respiratory failure with hypoxia and hypercapnia: Code(s): J96.21 - Acute and chronic respiratory failure with hypoxia; J96.22 - Acute and chronic respiratory failure with hypercapnia Status: Acute Plan COPD exacerbation: Home O2 Discontinued DuoNeb due to tachycardia Start Xopenex Continue Zosyn and azithromycin Currently on prednisone 40 mg p.o. q.d. Long smoking history Previous exacerbation on 01/14/2024 Multiple comorbid conditions including CHF COPD Exacerbation requiring BiPAP Currently on steroid methylprednisone 60 mg IV q.8 hours No evidence of Pulmonology workup done as OP ECHO ordered Currently on Zosyn Negative for RSV Influenza and COVID CTA negative for pulmonary embolism Ultrasound of upper and lower extremity no evidence of DVT CHF exacerbation BNP 758 Holding Lasix 20 mg p.o. b.i.d. due to recent contrast monitor renal function during diuresis echocardiogram pending EKG sinus tachycardia Chest x-ray Pulmonary edema Optimize Scooter inhibitors, beta-blockers, ARNI Daily weights. fluid restriction Strict I&O's elevate/Scooter wrap legs if needed Continue metoprolol succinate to 25 mg p.o. q.d. Optimize blood pressure less than 130/80. Fall risk assessment. A.fib Not taking Eliquis for about 2 years due to previous history of rectus sheath Hematoma ? twice Cardiology following Left atrial appendage occlusion device as OP Lopressor 50 mg q.6 hours Subjective Date/time seen: 12/03/24 09:26 Interval history: Patient has episode of tachycardia after receiving DuoNeb. Ordered metoprolol 5 mg IV still patient is tachycardic. Started Cardizem drip and given Cardizem 5mg IV push. Later given Adenosine 6mg followed by 12mg. Called [employer] and was given Metoprolol 5mg IV x 1, Ativan 0.5mg IV x 1, Amiodarone 150mg IV x 1 and increased Cardizem drip to 15mg. Discontinue DuoNeb . Order EKG. Currently patient on Zosyn and azithromycin Review of Systems Review of Systems: All systems reviewed & are unremarkable except as noted in HPI and below Exam Const: General: in distress HENMT: Ears: TM's normal bilaterally Face/Nose/Sinus: Normal nares present Eyes: General: appearance normal, both eyes and all related structures Sclera: sclerae normal Pupils: Equal, round and reactive pupils present Neck: Neck: supple Resp: Effort & Inspection: abnormal respiratory effort Auscultation: wheezes and diminished lung sounds bilateral throughout Cardio: Rate: regular rate Skin: General skin exam: normal color Neuro: Cranial nerves: Yes Equal, round and reactive pupils present Motor exam (neuro): 5/5 motor strength present throughout and Normal motor muscle tone present throughout Sensory Exam: normal sensation Extrem: General: normal to inspection Psych: Mental Status: mental status grossly normal Affect: Anxious affect present Objective Data Vital Signs Vital Signs: Vital Signs - 24 hr 12/02/24 10:00 12/02/24 11:30 12/02/24 12:00 Temperature 97.9 F Pulse Rate 88 83 Respiratory Rate 23 H Blood Pressure 145/53 H Pulse Oximetry 97 100 Oxygen Delivery BiPAP Oxygen Flow Rate Fraction of Inspired Oxygen 45 12/02/24 12:00 12/02/24 12:00 12/02/24 13:44 Temperature Pulse Rate 87 87 Respiratory Rate 16 Blood Pressure Pulse Oximetry 95 Oxygen Delivery Nasal Cannula Oxygen Flow Rate 5 Fraction of Inspired Oxygen 12/02/24 14:00 12/02/24 15:01 12/02/24 16:00 Temperature Pulse Rate 95 86 Respiratory Rate 18 Blood Pressure Pulse Oximetry 94 95 Oxygen Delivery Nasal Cannula Nasal Cannula Oxygen Flow Rate 5 5 Fraction of Inspired Oxygen 12/02/24 16:00 12/02/24 16:00 12/02/24 18:00 Temperature 97.8 F Pulse Rate 98 96 95 Respiratory Rate 24 H Blood Pressure 124/56 L Pulse Oximetry 97 Oxygen Delivery Oxygen Flow Rate Fraction of Inspired Oxygen 12/02/24 19:54 12/02/24 20:00 12/02/24 20:00 Temperature 99 F Pulse Rate 96 95 Respiratory Rate 20 Blood Pressure 103/88 Pulse Oximetry 92 92 Oxygen Delivery BiPAP Oxygen Flow Rate Fraction of Inspired Oxygen 12/02/24 20:44 12/02/24 20:45 12/02/24 20:50 Temperature Pulse Rate 100 100 97 Respiratory Rate 18 18 18 Blood Pressure Pulse Oximetry 94 Oxygen Delivery Nasal Cannula Oxygen Flow Rate 5 Fraction of Inspired Oxygen 12/02/24 20:58 12/02/24 22:00 12/02/24 23:39 Temperature 98.7 F Pulse Rate 97 92 92 Respiratory Rate 21 H 20 Blood Pressure 139/59 L Pulse Oximetry 97 97 Oxygen Delivery BiPAP Oxygen Flow Rate Fraction of Inspired Oxygen 12/02/24 23:50 12/03/24 00:00 12/03/24 01:37 Temperature Pulse Rate 88 92 Respiratory Rate 21 H Blood Pressure Pulse Oximetry 95 93 Oxygen Delivery BiPAP BiPAP Oxygen Flow Rate Fraction of Inspired Oxygen 45 12/03/24 02:00 12/03/24 03:46 12/03/24 03:49 Temperature 99 F Pulse Rate 84 81 81 Respiratory Rate 20 20 Blood Pressure 135/71 Pulse Oximetry 98 98 Oxygen Delivery BiPAP Oxygen Flow Rate Fraction of Inspired Oxygen 45 12/03/24 04:00 12/03/24 05:18 12/03/24 06:00 Temperature Pulse Rate 78 88 85 Respiratory Rate 15 Blood Pressure Pulse Oximetry 96 Oxygen Delivery BiPAP Oxygen Flow Rate Fraction of Inspired Oxygen 12/03/24 08:00 12/03/24 08:00 12/03/24 08:00 Temperature 98.4 F Pulse Rate 97 145 H 98 Respiratory Rate 16 16 Blood Pressure 167/76 H Pulse Oximetry 99 95 Oxygen Delivery High Flow Nasal Cannula Oxygen Flow Rate 5 Fraction of Inspired Oxygen 45 12/03/24 08:32 12/03/24 08:34 12/03/24 08:44 Temperature Pulse Rate 97 95 146 H Respiratory Rate 16 16 16 Blood Pressure Pulse Oximetry 97 Oxygen Delivery BiPAP Oxygen Flow Rate Fraction of Inspired Oxygen 12/03/24 08:45 12/03/24 08:46 12/03/24 09:06 Temperature Pulse Rate 145 H 145 H Respiratory Rate Blood Pressure Pulse Oximetry 95 Oxygen Delivery High Flow Nasal Cannula Oxygen Flow Rate 5 Fraction of Inspired Oxygen 12/03/24 09:06 12/03/24 09:15 12/03/24 09:15 Temperature Pulse Rate 144 H 170 H 170 H Respiratory Rate Blood Pressure 150/97 H 147/93 H Pulse Oximetry 92 96 Oxygen Delivery Oxygen Flow Rate Fraction of Inspired Oxygen Intake/Output Intake/Output: Intake & Output 11/30/24 12/01/24 12/02/24 12/03/24 23:59 23:59 23:59 23:59 Intake Total 674 50 Output Total 1700 1100 Balance -1026 -1050 Meds/Results Medications: Active Medications Generic Name Dose Route Start Last Admin Trade Name Freq PRN Reason Stop Dose Admin Acetaminophen 650 mg 12/02/24 03:29 Acetaminophen 325 Mg Tablet PO Q4H PRN Mild Pain (1-3) or Fever Albuterol 2 puff 12/02/24 11:06 Albuterol Sulfate (*Sp) Aerosol 1 Puff INHALATION QID PRN shortness of breath Albuterol/Ipratropium 3 ml 12/02/24 02:00 12/03/24 08:32 Ipratropium 0.5 Mg/Albuterol Sulfate 2.5 Mg Ampul.Neb 3 Ml INHALATION 3 ml Q6HRT YODIT Administration Albuterol/Ipratropium 3 ml 12/02/24 03:30 Ipratropium 0.5 Mg/Albuterol Sulfate 2.5 Mg Ampul.Neb 3 Ml INHALATION Q4HRT PRN shortness of breath/Wheezing Amitriptyline HCl 10 mg 12/02/24 21:00 12/02/24 20:35 Amitriptyline Hcl 10 Mg Tablet PO 10 mg HS YODIT Administration Duloxetine HCl 20 mg 12/02/24 09:00 Duloxetine Hcl 20 Mg Capsule. PO DAILY YODIT Escitalopram Oxalate 20 mg 12/02/24 09:00 12/03/24 08:47 Escitalopram Oxalate 10 Mg Tablet PO 20 mg DAILY YODIT Administration Ferrous Sulfate 325 mg 12/02/24 09:00 12/03/24 08:47 Ferrous Sulfate [address] PO 325 mg BID YODIT Administration Guaifenesin/Dextromethorphan 10 ml 12/02/24 03:29 Guaifenesin/Dextromethorphan 10 Ml Udc PO Q4H PRN Cough Heparin Sodium (Porcine) 5,000 units 12/02/24 06:00 12/03/24 05:29 Heparin Sodium 5,000 Units/Ml Vial SUB-Q Not Given Q8HR [facility] Piperacillin/Tazobactam/Dextrose 3.375 gm in 50 mls @ 100 mls/hr 12/02/24 04:00 12/03/24 05:29 Zosyn 3.375 Gm/Ns 50 Ml IVPB 100 mls/hr Q6HR YODIT Administration Azithromycin 500 mg in 250 mls @ 250 mls/hr 12/02/24 13:00 12/02/24 17:04 Zithromax IVPB 250 mls/hr Q24H YODIT Administration Diltiazem HCl 100 mg in 100 mls @ 5 mls/hr 12/03/24 09:19 Cardizem 100 Mg/100 Ml IV CONT 12/04/24 05:18 .Q20H STA 5 MG/HR Melatonin 5 mg 12/02/24 03:29 Melatonin 5 Mg Tablet PO HS PRN Insomnia Melatonin 5 mg 12/02/24 11:06 Melatonin 5 Mg Tablet PO HS PRN Insomnia Metoprolol Succinate 25 mg 12/02/24 09:00 12/03/24 08:46 Metoprolol Succinate Ext Rel 25 Mg Tabcr PO 25 mg QAM YODIT Administration Miscellaneous Information 1 each 12/02/24 00:01 External Med History Indicated Pt Is Taking Duloxetine Dr 20mg Bid Versus Daily, Please C XX 01/01/25 00:00 CLARIFY YODIT Montelukast Sodium 10 mg 12/03/24 09:00 12/03/24 08:47 Montelukast Sodium 10 Mg Tablet PO 10 mg DAILY YODIT Administration Ondansetron HCl 4 mg 12/02/24 00:29 Ondansetron Inj 4 Mg/2 Ml Vial IV PUSH Q4H PRN Nausea Pantoprazole Sodium 40 mg 12/02/24 09:00 12/03/24 08:47 Pantoprazole 40 Mg Tablet PO 40 mg Q12HR YODIT Administration Potassium Chloride 20 meq 12/03/24 09:00 12/03/24 08:51 Potassium Chloride 20 Meq Packet (For Liquid) PO 20 meq DAILY YODIT Administration Prednisone 40 mg 12/03/24 08:00 12/03/24 08:46 Prednisone 20 Mg Tablet PO 40 mg DAILY@0800 YODIT Administration Quetiapine Fumarate 25 mg 12/02/24 21:00 12/02/24 20:35 Quetiapine Fumarate 25 Mg Tablet PO 25 mg HS YODIT Administration Ropinirole HCl 4 mg 12/02/24 21:00 12/02/24 20:35 Ropinirole Hcl 1 Mg Tablet PO 4 mg HS YODIT Administration Topiramate 200 mg 12/02/24 09:00 12/03/24 08:47 Topiramate 100 Mg Tablet PO 200 mg Q12HR YODIT Administration Trazodone HCl 50 mg 12/02/24 21:00 12/02/24 20:35 Trazodone Hcl 50 Mg Tablet PO 50 mg HS YODIT Administration Radiology Results: ITS Impressions Chest X-Ray 12/01/24 21:45 IMPRESSION: Cardiomegaly with cardiac decompensation and pulmonary edema. Pneumonitis in the lower lobes is not excluded Chest CTA 12/02/24 15:44 IMPRESSION: 1. No pulmonary embolism. 2. Bilateral basal atelectasis versus pneumonia. Clinical correlation advised. Venous Doppler Study 12/02/24 16:23 IMPRESSION: 1. Patent bilateral upper extremity veins. No evidence of venous thrombosis. Labs Labs: Laboratory Results - last 24 hr 12/02/24 12/02/24 12/03/24 11:11 11:41 05:00 WBC RBC Hgb Hct MCV MCH MCHC RDW Plt Count MPV Immature Gran % (Auto) Neut % (Auto) Lymph % (Auto) [place]ores % (Auto) Eos % (Auto) Baso % (Auto) Lymph # (Auto) [place]ores # (Auto) Eos # (Auto) Baso # (Auto) Abs Immat Gran (auto) Absolute Neuts (auto) Absolute Nucleated RBC Nucleated RBC % D-Dimer 2.17 H Puncture Site Right radial Right radial ABG pH 7.355 7.431 ABG pCO2 71.4 H* 58.1 H ABG pO2 66.7 L 100.8 H ABG PO2/FiO2 Ratio 1.67 2.52 ABG HCO3 39.0 H 37.8 H ABG O2 Saturation 91.6 L 97.6 ABG O2 Content 13.5 L 14.7 L ABG Base Excess 11.3 11.7 A-a Gradient 136.4 117.6 Oxyhemoglobin 92.5 97.5 Total Hemoglobin 10.3 L 10.6 L O2 Delivery Device Bipap Other device O2 Liters/Min Not Reportable FiO2 40 40 Expiratory Pressure 8 Inspiratory Pressure 16 Sodium Potassium Chloride Carbon Dioxide Anion Gap BUN Creatinine Estim Creat Clear Calc Estimated GFR Glucose Calcium Total Bilirubin AST ALT Alkaline Phosphatase NT-Pro-B Natriuret Pep Total Protein Albumin [id number] 135 Procalcitonin 12/03/24 12/03/24 05:26 05:32 WBC 12.1 H RBC 3.48 L Hgb 9.4 L Hct 31.2 L MCV 89.7 MCH 27.0 MCHC 30.1 L RDW 14.6 H Plt Count 236 MPV 9.5 Immature Gran % (Auto) 0.7 H Neut % (Auto) 79.7 H Lymph % (Auto) 10.7 L Dolores % (Auto) 8.8 H Eos % (Auto) 0.0 Baso % (Auto) 0.1 L Lymph # (Auto) 1.29 [place]ores # (Auto) 1.1 H Eos # (Auto) 0.0 Baso # (Auto) 0.0 Abs Immat Gran (auto) 0.08 H Absolute Neuts (auto) 9.7 H Absolute Nucleated RBC 0.000 Nucleated RBC % 0.0 D-Dimer Puncture Site ABG pH ABG pCO2 ABG pO2 ABG PO2/FiO2 Ratio ABG HCO3 ABG O2 Saturation ABG O2 Content ABG Base Excess A-a Gradient Oxyhemoglobin Total Hemoglobin O2 Delivery Device O2 Liters/Min FiO2 Expiratory Pressure Inspiratory Pressure Sodium 136 L Potassium 4.2 Chloride 94 L Carbon Dioxide 38 H Anion Gap 4 BUN 32 H Creatinine 1.29 H Estim Creat Clear Calc 51 Estimated GFR 41 L Glucose 131 H Calcium 9.1 Total Bilirubin 0.5 AST 15 ALT 12 Alkaline Phosphatase 76 NT-Pro-B Natriuret Pep 972 H Total Protein 7.0 Albumin 3.6 [id number] Procalcitonin 0.3 Hospitalist MIPS Advance Care Plan I have confirmed that the patient's Advanced Care Plan is present, code status is documented, or surrogate decision maker is listed in patient medical record.: Yes Medication Reconciliation I have utilized all available resources to obtain, update and review the patients current medications (includes all prescriptions, OTC, herbals, cannabis, and nutritional supplements).: Yes
[2024-12-03] MEDS: dilTIAZem 100 MG/100 ML 100 MG/100 ML BAG IV CONT (09:36)
[2024-12-03] MEDS: dilTIAZem HCl INJ 25 MG/5 ML VIAL 5 MG IV PUSH (10:42)
--- NOTE | 2024-12-03 10:46 | ECG_ITS ---
Test Date: 2024-12-03 10:52:34 Measurements Intervals [place] Rate: 143 P: 0 SD: 0 QRS: 31 QRSD: 132 T: 13 QT: 279 QTc: 431 Interpretive Statements ATRIAL FIBRILLATION WITH RAPID VENTRICULAR RESPONSE RIGHT BUNDLE BRANCH BLOCK BASELINE ARTIFACT- I, II, III, AVR, AVL, AVF, V3 ABNORMAL ECG Compared to ECG 12/03/2024 09:29:59 HEART RATE HAS DECREASED Electronically Signed On 12-03-2024 14:43:25 CDT by Hong Meade D.O.
[2024-12-03] MEDS: ADENOSINE IV SOLN 6 MG/2 ML VIAL IV PUSH (11:05)
[2024-12-03] MEDS: ADENOSINE IV SOLN 6 MG/2 ML VIAL 12 MG IV PUSH (11:08)
[2024-12-03] MEDS: METOPROLOL TARTRATE INJ 5 MG/5 ML VIAL IV PUSH (11:11)
--- NOTE | 2024-12-03 11:24 | P.PNPL_ITS ---
Progress Note: A&P Assessment and Plan (1) Chronic obstructive pulmonary disease: Code(s): J44.9 - Chronic obstructive pulmonary disease, unspecified Status: Chronic Assessment and Plan: Regarding her COPD the patient has been on oxygen for the last 5 years. I have no PFTs. She is using 5 L at rest with home saturations 92-96%. First CT scan in our system is from 08/27/2022 and this shows mild apical predominant centrilobular emphysema. Repeat CT angiogram of the chest on 12/02/2024 demonstrates mild apical predominant centrilobular emphysema. She is using 6 L with activity but even with walking room to room her saturations go into the mid 70s. Patient is maintained on trelegy inhaler but she does not use a because of the taste. Patient takes montelukast 10 and albuterol p.r.n.. Patient follows with a cover marker in [place] Dr. Zamorano. Patient has chronic hypercarbic respiratory failure from her COPD with a blood gas of 7.34/65/103 and a serum bicarbonate greater than 40. She would benefit from a noninvasive ventilation. Patient was placed on BiPAP but could not tolerate these settings because the flow in pressures were too high. I will initiate the process for a home noninvasive ventilator with the AVAPS mode. 12/02/24: patient with a history of COPD, worsening cough, shortness of breath and hypoxemia. She says she has had no change in her phlegm production. No wheezing currently. Plan: will treat the patient for COPD exacerbation and will continue Solu- Medrol 60 Q 8. Will change to prednisone 40 mg p.o. q.day on 12/03/2024. Continue DuoNebs q.6 hours. Continue montelukast 10. Patient has a history of UTI and was started on ciprofloxacin on 12/01/2024. Patient currently on Zosyn. Will add azithromycin. Goal saturation 90-94%. Adjust study oxygen accordingly. I will send respiratory pathogen panel, mycoplasma IgM antibody, urine pneumococcal, urine Legionella studies looking for infectious etiology. I will send alpha 1 anti trypsin genotype and level looking for genetic predisposition for her COPD. Patient has a positive D-dimer and I will check a CT angiogram of the chest, she has swelling of the lower extremities and upper extremities bilaterally and I will get upper and lower extremity Dopplers. Echocardiogram has been ordered. Later in the day patient had a CT angiogram of the chest which was negative for PE, mild apical predominant centrilobular emphysema, posterior lower lobe atelectasis versus infiltrate right greater than left. No pleural effusions. Upper and lower extremity Dopplers were negative for DVT. 12/03/2024: Patient told me she slept with the noninvasive ventilator in the AVAPS last night and did well. She said she slept well and was well rested. Currently she is in AFib RVR on 5 of Dilt drip but her heart rate remains 160. She says she has no shortness of breath but just feels bad. Her saturations on the 5 L are 94%. She is in no respiratory distress. She had a fever last night. White blood cell count 12.1, creatinine 1.29, BNP 972. Procalcitonin 0.3. She received 1 dose of Lasix yesterday. Plan: she has no wheezing at this time. Continue prednisone 40 mg p.o. q.day, day 2 steroids. I will discontinue all beta agonists as she has a tachyarrhythmia. I will increase her ipratropium nebulizers to q.[address] scan shows small posterior lower lobe atelectasis versus infiltrate, she had a fever, procalcitonin is low and she has a leukocytosis. She is on Zosyn and azithromycin for possible pneumonia. I am not convinced this is pneumonia but will continue treatment for now while other etiologies of her fever and leukocytosis are being worked up. Discussed with Dr. Farfan, will follow with you. (2) Chronic hypercapnic respiratory failure: Code(s): J96.12 - Chronic respiratory failure with hypercapnia Status: Acute Assessment and Plan: Patient has chronic hypercarbic respiratory failure from her COPD with a blood gas of 7.34/65/103 and a serum bicarbonate greater than 40. She would benefit from a noninvasive ventilation. Patient was placed on BiPAP but could not tolerate these settings because the flow in pressures were too high. I will initiate the process for a home noninvasive ventilator with the AVAPS mode. 12/02/2024: When I enter the room the patient was on BiPAP in no respiratory distress. Patient told me the machine and the breathing was uncomfortable and that she would not be able to sleep with this. I changed her to noninvasive ventilator with the AVAS mode an adjusted settings to comfort resulting in a rate of 14, tidal volume 500, EPAP 5, minimal inspiratory pressure 6, maximal inspiratory pressure 25, inspiratory time 1.0, rise of 1 which is are fast this and it and 40% FiO2. She was able to tolerate these settings. She felt she could come off BiPAP and I placed her on 5 L nasal cannula and after 12 minutes her saturations were 92%. Plan: Patient can use noninvasive ventilation with the AVAPS mode p.r.n. during the day but should wear this at night. I will perform an overnight oximetry and ABG prior to removal on these settings. 12/03/24: Patient slept with the noninvasive ventilator last night and said she did well and was able to sleep. On the noninvasive ventilator with the AVAPS settings as above and 40% FiO2 the patient had an overnight oximetry with recording duration of 7 hours and 45 minutes. Average saturation 95%. Low saturation 89%. Time with saturation less than or equal to 88% was 0 minutes. Oxygen desaturation index 2.2. Patient an ABG prior to removal with a pH of 7.43/58/101. Plan: Current noninvasive ventilation with the AVAPS mode rate of 14, tidal volume 500, EPAP 5, minimal inspiratory pressure 6, maximal inspiratory pressure 25, inspiratory time 1.0, rise of 1 which is are fast this and it and 40% FiO2, provide adequate ventilation and oxygenation. I will place her on AVAPS mode with 32% FiO2 tonight and repeat an overnight oximetry. Subjective Date/time seen: 12/03/24 11:24 Interval history: 12/02/2024: This is a new pulmonary consult for acute on chronic hypercarbic and hypoxemic respiratory failure. 64-year-old with a history of hypertension, restless legs syndrome, anxiety and COPD With chronic hypoxemic respiratory failure on 5 L at rest and 6 L with activity. Regarding her COPD the patient has been on oxygen for the last 5 years. I have no PFTs. She is using 5 L at rest with home saturations 92-96%. For CT scan in our system is from 08/27/2022 and this shows mild apical predominant centrilobular emphysema. She is using 6 L with activity but even with walking room to room her saturations go into the mid 70s. Patient is maintained on trelegy inhaler but she does not use a because of the taste. Patient takes montelukast 10 and albuterol p.r.n.. Patient follows with a cover marker in [place] Dr. Zamorano. Patient is currently on BiPAP and family is in the room who aids with history. For the last 2-3 weeks patient has had worsening shortness of breath, wheezing, cough with no phlegm production, swelling of the legs and abdomen. She was diagnosed with the UTI on 12/01/2024 and started on ciprofloxacin. Later the night, She had worsening hypoxemia and yesterday she could not keep her saturations up and presented to the emergency room. in the emergency room her blood pressure was 142/106, heart rate 115, respirations 22 and on 15 L non- rebreather her saturation were 98%. Patient had white blood cell count of 14.8 was 0.6% eosinophils equals 89 per micro L, creatinine 1.16, serum bicarbonate greater than 40, COVID influenza and RSV RT PCR study negative. ABG on 10 L non-rebreather was 7.34/65/103. Procalcitonin was 0.4. BNP was 758. Chest x-ray showed pulmonary congestion with left greater than right interstitial infiltrates. Patient was treated for COPD exacerbation, pneumonia, fluid overload. 12/02/2024: When I enter the room the patient was on BiPAP in no respiratory distress. She was awake communicative and following simple commands. The patient told me she was breathing back to her normal. She complained of some dizziness but denied fever, chills, rigors, wheezing, phlegm production or hemoptysis. She said her coughing is slightly increased compared to her baseline. Patient was on BiPAP rate of 22, pressures 16/8 with tidal volumes 880 inspiratory time 1.0 with a blood gas of 7.40/52/43. patient told me the machine and the breathing was uncomfortable and that she would not be able to sleep with this. I changed her to noninvasive ventilator with the AVAS mode an adjusted settings to comfort resulting in a rate of 14, tidal volume 500, EPAP 5, minimal inspiratory pressure 6, maximal inspiratory pressure 25, inspiratory time 1.0, rise of 1 which is are fast this and it and 40% FiO2. She was able to tolerate these settings. She felt she could come off of the BiPAP and I placed her on 5 L nasal cannula and after 12 minutes her saturations were 92%. Later in the day patient had a CT angiogram of the chest which was negative for PE, mild apical predominant centrilobular emphysema posterior lower lobe atelectasis versus infiltrate right greater than left. No pleural effusions. Upper and lower extremity Dopplers were negative for DVT. 12/03/2024: Patient told me she slept with the noninvasive ventilator in the AVAPS last night and did well. She said she slept well and was well rested. Currently she is in AFib RVR on 5 of Dilt drip but her heart rate remains 160. She says she has no shortness of breath but just feels bad. Her saturations on the 5 L are 94%. She is in no respiratory distress. She had a fever last night. White blood cell count 12.1, creatinine 1.29, BNP 972. Procalcitonin 0.3. She received 1 dose of Lasix yesterday. On the noninvasive ventilator with the AVAPS settings as above and 40% FiO2 the patient had an overnight oximetry with recording duration of 7 hours and 45 minutes. Average saturation 95%. Low saturation 89%. Time with saturation less than or equal to 88% was 0 minutes. Oxygen desaturation index 2.2. Patient an ABG prior to removal with a pH of 7.43/58/101. DATA 12/17/2023: CT Scan of the Chest without Contrast: Clinical Indication: Lung cancer screening, nicotine dependence Technique: Contiguous sections were acquired throughout the chest without intravenous contrast. Dose reduction technique was used on this scan by utilizing automated exposure control and iterative reconstruction technique. The dose-length product (DLP) was 341.26 mGy-cm. COMPARISON: 04/06/2023 Findings: Stable enlarged left thyroid lobe. There is no evidence of any significant mediastinal, hilar or axillary lymphadenopathy. Atherosclerotic calcifications of the aorta are present. There is no evidence of pleural or pericardial effusion. There is irregular airspace opacity in the posterior right lower lobe, improved from prior exam, likely representing postinflammatory change, as there is a previous more extensive area of consolidation in this location. Mild emphysema. Images through the upper abdomen reveal no abnormalities. Impression: Lung RADS 2: Benign appearance. 12 month follow-up screening CT advised. 09/10/2022: Echo Summary 1. Technically difficult study with limited views. Regional wall motion assessment limited due to poor endomyocardial border definition despite definity contrast enhancement. 2. Left ventricular chamber dimension is normal. 3. Left ventricular systolic function is normal, estimated at 65-70%. 4. There is mildly increased left ventricular wall thickness. 5. Right ventricular chamber dimension is normal. 6. Right ventricular systolic function is moderately reduced. TAPSE 1.3. 7. There is trace tricuspid valve regurgitation. 8. Mild pulmonary hypertension, estimated pulmonary arterial systolic pressure is 37 mmHg. 9. Normal inferior vena cava with <50% collapse upon inspiration consistent with elevated right atrial pressure, 10 mmHg. 08/28/2022: Summary 1. Left ventricular chamber dimension is normal. 2. Left ventricular systolic function is normal, estimated at 60-65%. 3. The left ventricular diastolic function is grade I diastolic dysfunction. 4. Right ventricular chamber dimension is moderately enlarged. 5. Right ventricular systolic function is normal. 6. There is moderate tricuspid valve regurgitation, which may be underestimated due to the eccentricity of the jet. 7. Dilated inferior vena cava with no collapse upon inspiration consistent with elevated right atrial pressure, 15 mmHg. 8. Pulmonary hypertension with an estimated PASP of 59mmHg. Right Ventricle Right ventricular chamber dimension is moderately enlarged. Right ventricular systolic function is normal. Right Atria Right atrial chamber dimension is normal. Atrial Septum Intact interatrial septum visualized by color flow imaging. 08/27/2022: EXAMINATION: CT chest high resolution wo co DATE: 08/27/2022 16:07 INDICATION: respiratory failure TECHNIQUE: Computed tomography (CT) of the chest was performed without intravenous contrast. Automated exposure control and iterative reconstruction technique were employed. The dose-length product was 818.52 mGy-cm. COMPARISON: X-ray chest 08/27/2022 and CTA chest 07/21/2018. FINDINGS: CHEST: Endotracheal tube terminating 2.5 cm above the maria esther. Thoracic aorta: No significant dilation. Moderate arch calcification. Lung parenchyma and airways: Diffuse tree-in-bud opacities most evident in the right lung. Scattered centrilobular nodular opacities measuring up to 11 mm in the right upper lobe. Mild interlobular septal thickening. Bibasilar dependent opacities likely representing atelectasis. Mild emphysematous change. Thoracic inlet, axillae and chest wall: No thyroid or soft tissue mass. No axillary lymphadenopathy. Mediastinum: Mediastinal lymphadenopathy. Dilated central pulmonary arteries as can be seen with pulmonary arterial hypertension. Heart and pericardium: Normal heart size. Aortic valve calcification. No pericardial effusion. Coronary artery calcifications: Mild. Pleura: Trace bilateral pleural fluid. Upper abdomen: No significant finding. Thoracic bones: No acute osseous finding in the chest. IMPRESSION: 1. Tree-in-bud opacities as can be seen with atypical infection (including but not limited to: MAC, TB, fungal), ABPA, airways disease, and less likely aspiration. 2. Nodular opacity in right upper lobe should be followed after the appropriate therapy and cessation of symptoms to ensure resolution. 3. Mediastinal lymphadenopathy. 4. Trace bilateral pleural effusions. 5. Mild interstitial edema. Review of Systems Constitutional: Constitutional: Reports no additional constitutional complaints Eyes: Eyes: Reports no additional eye complaints ENT: Reports system reviewed and no additional complaints, except as documented Cardiovascular: Cardiovascular: Reports no additional cardiovascular complaints Respiratory: Respiratory: Reports no additional respiratory complaints Gastrointestinal: Gastrointestinal: Reports no additional gastrointestinal complaints Musculoskeletal: Musculoskeletal: Reports no additional musculoskeletal complaints Neurologic: Reports system reviewed and no additional complaints, except as documented Psychiatric: Psychiatric: Reports no additional psychiatric complaints Endocrine: Endocrine: Reports no additional endocrine complaints Hematologic/Lymphatic: Hematologic/Lymphatic: Reports no additional hematologic/lymphatic complaints Allergic/Immunologic: Allergic/Immunologic: Reports no additional allergic/immunologic complaints Exam Const: General: cooperative, healthy appearing and comfortable Orientation/consciousness: oriented to person, oriented to place and oriented to time HENMT: Head: normal to inspection Ears: hearing grossly normal bilaterally Eyes: General: appearance normal, both eyes and all related structures Neck: Neck: normal visual inspection Chest: Chest palpation & inspection: normal inspection of the chest Resp: Effort & Inspection: normal respiratory effort and able to speak in complete sentences Auscultation: no crackles, no rales, no rhonchi, no wheezes and diminished lung sounds Cardio: Jugular venous distension: no JVD GI: Inspection: normal to inspection Skin: General skin exam: normal color Neuro: General: oriented to person, oriented to place and oriented to time Extrem: General: edema Other: pitting edema upper and lower extremities Psych: Appearance: grossly normal Objective Data Vital Signs Vital Signs: Vital Signs - 24 hr 12/02/24 11:30 12/02/24 12:00 12/02/24 12:00 Temperature 36.6 C Pulse Rate 83 Respiratory Rate 23 H Blood Pressure 145/53 H Pulse Oximetry 97 100 95 Oxygen Delivery BiPAP Nasal Cannula Oxygen Flow Rate 5 Fraction of Inspired Oxygen 45 12/02/24 12:00 12/02/24 13:44 12/02/24 14:00 Temperature Pulse Rate 87 87 95 Respiratory Rate 16 Blood Pressure Pulse Oximetry Oxygen Delivery Oxygen Flow Rate Fraction of Inspired Oxygen 12/02/24 15:01 12/02/24 16:00 12/02/24 16:00 Temperature 36.6 C Pulse Rate 86 98 Respiratory Rate 18 24 H Blood Pressure 124/56 L Pulse Oximetry 94 95 97 Oxygen Delivery Nasal Cannula Nasal Cannula Oxygen Flow Rate 5 5 Fraction of Inspired Oxygen 12/02/24 16:00 12/02/24 18:00 12/02/24 19:54 Temperature 37.2 C Pulse Rate 96 95 96 Respiratory Rate 20 Blood Pressure 103/88 Pulse Oximetry 92 Oxygen Delivery Oxygen Flow Rate Fraction of Inspired Oxygen 12/02/24 20:00 12/02/24 20:00 12/02/24 20:44 Temperature Pulse Rate 95 100 Respiratory Rate 18 Blood Pressure Pulse Oximetry 92 Oxygen Delivery BiPAP Oxygen Flow Rate Fraction of Inspired Oxygen 12/02/24 20:45 12/02/24 20:50 12/02/24 20:58 Temperature Pulse Rate 100 97 97 Respiratory Rate 18 18 21 H Blood Pressure Pulse Oximetry 94 97 Oxygen Delivery Nasal Cannula BiPAP Oxygen Flow Rate 5 Fraction of Inspired Oxygen 12/02/24 22:00 12/02/24 23:39 12/02/24 23:50 Temperature 37.1 C Pulse Rate 92 92 Respiratory Rate 20 Blood Pressure 139/59 L Pulse Oximetry 97 95 Oxygen Delivery BiPAP Oxygen Flow Rate Fraction of Inspired Oxygen 45 12/03/24 00:00 12/03/24 01:37 12/03/24 02:00 Temperature Pulse Rate 88 92 84 Respiratory Rate 21 H Blood Pressure Pulse Oximetry 93 Oxygen Delivery BiPAP Oxygen Flow Rate Fraction of Inspired Oxygen 12/03/24 03:46 12/03/24 03:49 12/03/24 04:00 Temperature 37.2 C Pulse Rate 81 81 78 Respiratory Rate 20 20 Blood Pressure 135/71 Pulse Oximetry 98 98 Oxygen Delivery BiPAP Oxygen Flow Rate Fraction of Inspired Oxygen 45 12/03/24 05:18 12/03/24 06:00 12/03/24 08:00 Temperature 36.9 C Pulse Rate 88 85 97 Respiratory Rate 15 16 Blood Pressure 167/76 H Pulse Oximetry 96 99 Oxygen Delivery BiPAP Oxygen Flow Rate Fraction of Inspired Oxygen 12/03/24 08:00 12/03/24 08:00 12/03/24 08:32 Temperature Pulse Rate 145 H 98 97 Respiratory Rate 16 16 Blood Pressure Pulse Oximetry 95 Oxygen Delivery High Flow Nasal Cannula Oxygen Flow Rate 5 Fraction of Inspired Oxygen 45 12/03/24 08:34 12/03/24 08:44 12/03/24 08:45 Temperature Pulse Rate 95 146 H Respiratory Rate 16 16 Blood Pressure Pulse Oximetry 97 95 Oxygen Delivery BiPAP High Flow Nasal Cannula Oxygen Flow Rate 5 Fraction of Inspired Oxygen 12/03/24 08:46 12/03/24 09:06 12/03/24 09:06 Temperature Pulse Rate 145 H 145 H 144 H Respiratory Rate Blood Pressure 150/97 H Pulse Oximetry 92 Oxygen Delivery Oxygen Flow Rate Fraction of Inspired Oxygen 12/03/24 09:15 12/03/24 09:15 12/03/24 09:36 Temperature Pulse Rate 170 H 170 H 164 H Respiratory Rate Blood Pressure 147/93 H 147/94 H Pulse Oximetry 96 Oxygen Delivery Oxygen Flow Rate Fraction of Inspired Oxygen 12/03/24 10:00 Temperature 37.1 C Pulse Rate 160 H Respiratory Rate 16 Blood Pressure 140/96 H Pulse Oximetry 97 Oxygen Delivery Oxygen Flow Rate Fraction of Inspired Oxygen Intake/Output Intake/Output: Intake & Output 11/30/24 12/01/24 12/02/24 12/03/24 23:59 23:59 23:59 23:59 Intake Total 674 50 Output Total 1700 1100 Balance -1026 -1050 Meds/Results Medications: Active Medications Generic Name Dose Route Start Last Admin Trade Name Freq PRN Reason Stop Dose Admin Acetaminophen 650 mg 12/02/24 03:29 Acetaminophen 325 Mg Tablet PO Q4H PRN Mild Pain (1-3) or Fever Amitriptyline HCl 10 mg 12/02/24 21:00 12/02/24 20:35 Amitriptyline Hcl 10 Mg Tablet PO 10 mg HS YODIT Administration Duloxetine HCl 20 mg 12/02/24 09:00 Duloxetine Hcl 20 Mg Capsule.Dr PO DAILY YODIT Escitalopram Oxalate 20 mg 12/02/24 09:00 12/03/24 08:47 Escitalopram Oxalate 10 Mg Tablet PO 20 mg DAILY YODIT Administration Ferrous Sulfate 325 mg 12/02/24 09:00 12/03/24 08:47 Ferrous Sulfate [address] PO 325 mg BID YODIT Administration Guaifenesin/Dextromethorphan 10 ml 12/02/24 03:29 Guaifenesin/Dextromethorphan 10 Ml Udc PO Q4H PRN Cough Heparin Sodium (Porcine) 5,000 units 12/02/24 06:00 12/03/24 05:29 Heparin Sodium 5,000 Units/Ml Vial SUB-Q Not Given Q8HR YODIT Piperacillin/Tazobactam/Dextrose 3.375 gm in 50 mls @ 100 mls/hr 12/02/24 04:00 12/03/24 05:29 Zosyn 3.375 Gm/Ns 50 Ml IVPB 100 mls/hr Q6HR YODIT Administration Azithromycin 500 mg in 250 mls @ 250 mls/hr 12/02/24 13:00 12/02/24 17:04 Zithromax IVPB 250 mls/hr Q24H YODIT Administration Diltiazem HCl 100 mg in 100 mls @ 15 mls/hr 12/03/24 09:19 12/03/24 09:36 Cardizem 100 Mg/100 Ml IV CONT 12/03/24 15:58 5 mg/hr .Q6H40M STA 5 mls/hr Administration 15 MG/HR Ipratropium [place] 0.5 mg 12/03/24 12:00 Ipratropium Br 0.02% Inh Soln 0.5 Mg/2.5 Ml Vial INHALATION Q4HRT YODIT Melatonin 5 mg 12/02/24 03:29 Melatonin 5 Mg Tablet PO HS PRN Insomnia Melatonin 5 mg 12/02/24 11:06 Melatonin 5 Mg Tablet PO HS PRN Insomnia Metoprolol Succinate 25 mg 12/02/24 09:00 12/03/24 08:46 Metoprolol Succinate Ext Rel 25 Mg Tabcr PO 25 mg QAM YODIT Administration Miscellaneous Information 1 each 12/02/24 00:01 External Med History Indicated Pt Is Taking Duloxetine Dr 20mg Bid Versus Daily, Please C XX 01/01/25 00:00 CLARIFY YODIT Montelukast Sodium 10 mg 12/03/24 09:00 12/03/24 08:47 Montelukast Sodium 10 Mg Tablet PO 10 mg DAILY YODIT Administration Ondansetron HCl 4 mg 12/02/24 00:29 Ondansetron Inj 4 Mg/2 Ml Vial IV PUSH Q4H PRN Nausea Pantoprazole Sodium 40 mg 12/02/24 09:00 12/03/24 08:47 Pantoprazole 40 Mg Tablet PO 40 mg Q12HR YODIT Administration Potassium Chloride 20 meq 12/03/24 09:00 12/03/24 08:51 Potassium Chloride 20 Meq Packet (For Liquid) PO 20 meq DAILY YODIT Administration Prednisone 40 mg 12/03/24 08:00 12/03/24 08:46 Prednisone 20 Mg Tablet PO 40 mg DAILY@0800 YODIT Administration Quetiapine Fumarate 25 mg 12/02/24 21:00 12/02/24 20:35 Quetiapine Fumarate 25 Mg Tablet PO 25 mg HS YODIT Administration Ropinirole HCl 4 mg 12/02/24 21:00 12/02/24 20:35 Ropinirole Hcl 1 Mg Tablet PO 4 mg HS YODIT Administration Topiramate 200 mg 12/02/24 09:00 12/03/24 08:47 Topiramate 100 Mg Tablet PO 200 mg Q12HR YODIT Administration Trazodone HCl 50 mg 12/02/24 21:00 12/02/24 20:35 Trazodone Hcl 50 Mg Tablet PO 50 mg HS YODIT Administration Radiology Results: ITS Impressions Chest X-Ray 12/01/24 21:45 IMPRESSION: Cardiomegaly with cardiac decompensation and pulmonary edema. Pneumonitis in the lower lobes is not excluded Chest CTA 12/02/24 15:44 IMPRESSION: 1. No pulmonary embolism. 2. Bilateral basal atelectasis versus pneumonia. Clinical correlation advised. Venous Doppler Study 12/02/24 16:23 IMPRESSION: 1. Patent bilateral upper extremity veins. No evidence of venous thrombosis. Labs Labs: Laboratory Results - last 24 hr 12/02/24 12/02/24 12/03/24 11:11 11:41 05:00 WBC RBC Hgb Hct MCV MCH MCHC RDW Plt Count MPV Immature Gran % (Auto) Neut % (Auto) Lymph % (Auto) [place] % (Auto) Eos % (Auto) Baso % (Auto) Lymph # (Auto) [place] # (Auto) Eos # (Auto) Baso # (Auto) Abs Immat Gran (auto) Absolute Neuts (auto) Absolute Nucleated RBC Nucleated RBC % D-Dimer 2.17 H Puncture Site Right radial Right radial ABG pH 7.355 7.431 ABG pCO2 71.4 H* 58.1 H ABG pO2 66.7 L 100.8 H ABG PO2/FiO2 Ratio 1.67 2.52 ABG HCO3 39.0 H 37.8 H ABG O2 Saturation 91.6 L 97.6 ABG O2 Content 13.5 L 14.7 L ABG Base Excess 11.3 11.7 A-a Gradient 136.4 117.6 Oxyhemoglobin 92.5 97.5 Total Hemoglobin 10.3 L 10.6 L O2 Delivery Device Bipap Other device O2 Liters/Min Not Reportable FiO2 40 40 Expiratory Pressure 8 Inspiratory Pressure 16 Sodium Potassium Chloride Carbon Dioxide Anion Gap BUN Creatinine Estim Creat Clear Calc Estimated GFR Glucose Calcium Total Bilirubin AST ALT Alkaline Phosphatase NT-Pro-B Natriuret Pep Total Protein Albumin Qnhlz-1-Pchcldrfetm 135 Procalcitonin 12/03/24 12/03/24 05:26 05:32 WBC 12.1 H RBC 3.48 L Hgb 9.4 L Hct 31.2 L MCV 89.7 MCH 27.0 MCHC 30.1 L RDW 14.6 H Plt Count 236 MPV 9.5 Immature Gran % (Auto) 0.7 H Neut % (Auto) 79.7 H Lymph % (Auto) 10.7 L [place] % (Auto) 8.8 H Eos % (Auto) 0.0 Baso % (Auto) 0.1 L Lymph # (Auto) 1.29 [place] # (Auto) 1.1 H Eos # (Auto) 0.0 Baso # (Auto) 0.0 Abs Immat Gran (auto) 0.08 H Absolute Neuts (auto) 9.7 H Absolute Nucleated RBC 0.000 Nucleated RBC % 0.0 D-Dimer Puncture Site ABG pH ABG pCO2 ABG pO2 ABG PO2/FiO2 Ratio ABG HCO3 ABG O2 Saturation ABG O2 Content ABG Base Excess A-a Gradient Oxyhemoglobin Total Hemoglobin O2 Delivery Device O2 Liters/Min FiO2 Expiratory Pressure Inspiratory Pressure Sodium 136 L Potassium 4.2 Chloride 94 L Carbon Dioxide 38 H Anion Gap 4 BUN 32 H Creatinine 1.29 H Estim Creat Clear Calc 51 Estimated GFR 41 L Glucose 131 H Calcium 9.1 Total Bilirubin 0.5 AST 15 ALT 12 Alkaline Phosphatase 76 NT-Pro-B Natriuret Pep 972 H Total Protein 7.0 Albumin 3.6 Lcbbk-2-Lkprbwsdabh Procalcitonin 0.3
[2024-12-03] MEDS: LORazepam INJ (*CRX) 2 MG/ML VIAL 0.5 MG IV PUSH (11:30)
[2024-12-03] MEDS: AMIODARONE INJ 150 MG/3 ML VIAL XX (11:40)
[2024-12-03] MEDS: AMIODARONE 150 MG/D5W 100 ML 150 MG/100 ML BAG 600 MG IV CONT (12:18)
[2024-12-03] MEDS: AMIODARONE 360 MG/D5W 200 ML 360 MG/200 ML BAG 33.33 MG IV CONT (12:19)
[2024-12-03 12:36] LABS: Troponin I 0.025 ng/mL (0.000-0.034)
[2024-12-03] MEDS: DIGOXIN INJ 250 MCG/ML 2 ML AMP (*BKC) IV PUSH (13:24)
[2024-12-03] MEDS: AZITHROMYCIN 500 MG/NS 250 ML 500 MG/250 ML BAG 250 MG IVPB (13:29)
[2024-12-03] MEDS: HEPARIN SODIUM 5,000 UNITS/ML VIAL 5000 UNITS SUB-Q ×2 (14:35→21:15)
--- NOTE | 2024-12-03 15:09 | P.CONCA_ITS ---
Assessment and Plan Assessment and plan (1) Acute on chronic congestive heart failure: Code(s): I50.9 - Heart failure, unspecified Status: Acute Plan 64-year-old woman with atrial flutter/fibrillation who is not on anticoagulation due to history of rectus sheath hematomas for which vascular surgery had recommended stopping anticoagulation and hypertension initially presented with shortness of breath and admitted for COPD exacerbation now found to be in atrial fibrillation with rapid ventricular rates Atrial fibrillation with RVR -we discussed given her bleeding history from rectus sheath hematoma, she has not a good candidate for anticoagulation which does place her at higher risk of stroke -we discussed necessity for left atrial appendage occlusion devices moving forward which will need to be discussed in outpatient setting -she clearly has clinical instability from rapid ventricular rate, would continue amiodarone drip as trials of metoprolol and diltiazem have not been successful -will continue Lopressor 50 mg q.6 hours and will give 1 time digoxin 250 mcg IV push -should she continue to have rapid ventricular rates the cause any formal clinical instability, would have to proceed with transesophageal echocardiogram guided cardioversion which I have discussed with her would necessitate a minimum of 4-6 weeks of anticoagulation Chronic diastolic heart failure with right ventricular enlargement -appears clinically euvolemic -start Lasix 40 mg IV push daily to maintain euvolemic status Acute on chronic hypoxic and hypercarbic respiratory failure -pulmonology following History of Present Illness History of Present Illness Consult date/time: 12/03/24 15:09 Requesting physician: Teofilo Farfan MD Consult reason: atrial fibrillation Reason For Visit: Acute hypoxic/hypercapnic respiratory failure, 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 This morning while she was using inhaler therapy, she developed rapid narrow complex tachycardia which would slow down by adenosine did appear to be atrial flutter with eventual degeneration to atrial fibrillation with rapid ventricular rates. She does have worsening shortness of breath and development of chest discomfort when her ventricular rates are rapid and greater than 150 beats per minute. Both the shortness of breath and chest discomfort significantly improved after rates are better control on amiodarone drip. Overall for the past few months now, she has been unable to take more than a few steps without developing shortness of breath. Denies any orthopnea but does use oxygen at night. No lower extremity swelling. No syncopal events. Review of Systems 2 Cardiovascular: Cardiovascular: Reports as per HPI Respiratory: Respiratory: Reports as per HPI [facility] Past Medical History Medical History (Updated 12/03/24 @ 15:25 by Rafiq Gutierrez MD) Atrial flutter with rapid ventricular response Acute exacerbation of chronic obstructive pulmonary disease C. difficile colitis Renal failure Requiring temporary dialysis and CRRT in 09/15. Staphylococcus epidermidis bacteremia (08/2022) Diastolic dysfunction Echo in August 2022 showed normal LV function with an EF of 60 to 65%, grade 1 diastolic dysfunction, moderate enlarged right ventricular chamber, normal right ventricular systolic function, moderate tricuspid valve regurgitation, and pulmonary hypertension with an estimated PASP of 59 mmHg. Normocytic anemia Bacteremia Shock Obesity (BMI 30-39.9) Sepsis Urinary tract infection Acute kidney injury Encephalopathy Chronic anticoagulation Gastroesophageal reflux disease Cerebrovascular accident Pneumonia Chronic obstructive pulmonary disease Acute on chronic respiratory failure with hypoxia and hypercapnia Jugular vein thrombosis 2019 novel coronavirus-infected pneumonia (NCIP) Congestive heart failure COPD (chronic obstructive pulmonary disease) Surgical History Surgical History History of cholecystectomy History of 3 sections History of left knee replacement Family History Family History Father Hypertension Acute myocardial infarction Sibling Hypertension Mother Family history of heart disease in male family member before age 55 Brother Acute myocardial infarction Father Acute myocardial infarction Other Cerebrovascular accident Family history of cardiovascular disease Social History Social History Social History: Surrogate medical decision maker: Sai Shin, brother. Code status: Full code. Smoking packs per day: 1 Smoking cigarettes per day: 20.0 Years smoked: 50 Smoking pack-years: 50.00 Smoking status: Former smoker Tobacco type: cigarettes Second hand tobacco smoke exposure: Yes Smoking end date: 08/23/22 Alcohol intake: never Drinks per week: 0 Substance use: never Do You Feel Safe in your Home?: Yes Lack of Transportation: No Lack of Food: Never True Current Housing: I Have Housing Concerned About Future Housing: No Difficulty Paying Gas/Electric Bills: No Difficulty Paying for Meds: No Currently Unemployed: No Education: High School Diploma/GED Difficulty w/ Childcare or Family Care: No Living arrangements: with family Additional living arrangements comments: Lives with family in [place]. 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 Spiritual care concerns: No Meds Home Medications and Allergies Home Medications ?Medication ?Instructions ?Recorded ?Confirmed ?Type escitalopram oxalate 20 mg tablet 20 mg PO DAILY 09/07/21 12/02/24 History montelukast 10 mg tablet 10 mg PO DAILY 09/07/21 12/02/24 History omeprazole 40 mg capsule,delayed 40 mg PO DAILY 09/07/21 12/02/24 History release trazodone 50 mg tablet 50 mg PO HS 09/07/21 12/02/24 History albuterol sulfate 90 mcg/actuation 2 puff inhalation QID PRN 09/16/21 12/02/24 Rx aerosol inhaler (Proventil HFA) shortness of breath #1 BA unit magnesium hydroxide 400 mg/5 mL 30 ml PO HS PRN Constipation 10/09/22 12/02/24 History oral suspension (Milk of Magnesia) melatonin 5 mg capsule 5 mg PO HS PRN Insomnia 10/09/22 12/02/24 History quetiapine 25 mg tablet 25 mg PO HS 10/09/22 12/02/24 History apixaban 5 mg tablet (Eliquis) 5 mg PO BID #60 tabs 10/10/22 12/02/24 Rx furosemide 20 mg tablet 20 mg PO BID #60 tabs 10/10/22 12/02/24 Rx metoprolol succinate 25 mg 25 mg PO QAM #30 tabs 10/10/22 12/02/24 Rx tablet,extended release 24 hr (Toprol XL) amitriptyline 10 mg tablet 10 mg PO HS 10/20/22 12/02/24 History ropinirole 4 mg tablet 4 mg PO HS 10/20/22 12/02/24 History topiramate 100 mg tablet 200 mg PO BID 10/20/22 12/02/24 History potassium chloride 20 mEq oral 20 meq PO DAILY #30 ea 10/23/22 12/02/24 Rx packet ferrous sulfate 325 mg (65 mg 325 mg PO BID #60 tabs 10/25/22 12/02/24 Rx iron) tablet ciprofloxacin HCl 250 mg tablet 250 mg PO Q12H 12/02/24 12/02/24 History duloxetine 20 mg capsule,delayed 40 mg PO DAILY 12/02/24 12/03/24 History release Allergies Allergy/AdvReac Type Severity Reaction Status Date / Time No Known Drug Allergies Allergy Unknown Verified 07/13/23 13:02 Vital Signs Vital Signs - 24 hr 12/02/24 16:00 12/02/24 16:00 12/02/24 16:00 Temperature 36.6 C Pulse Rate 98 96 Respiratory Rate 24 H Blood Pressure 124/56 L Pulse Oximetry 95 97 Oxygen Delivery Nasal Cannula Oxygen Flow Rate 5 Fraction of Inspired Oxygen 12/02/24 18:00 12/02/24 19:54 12/02/24 20:00 Temperature 37.2 C Pulse Rate 95 96 Respiratory Rate 20 Blood Pressure 103/88 Pulse Oximetry 92 92 Oxygen Delivery BiPAP Oxygen Flow Rate Fraction of Inspired Oxygen 12/02/24 20:00 12/02/24 20:44 12/02/24 20:45 Temperature Pulse Rate 95 100 100 Respiratory Rate 18 18 Blood Pressure Pulse Oximetry 94 Oxygen Delivery Nasal Cannula Oxygen Flow Rate 5 Fraction of Inspired Oxygen 12/02/24 20:50 12/02/24 20:58 12/02/24 22:00 Temperature Pulse Rate 97 97 92 Respiratory Rate 18 21 H Blood Pressure Pulse Oximetry 97 Oxygen Delivery BiPAP Oxygen Flow Rate Fraction of Inspired Oxygen 12/02/24 23:39 12/02/24 23:50 12/03/24 00:00 Temperature 37.1 C Pulse Rate 92 88 Respiratory Rate 20 Blood Pressure 139/59 L Pulse Oximetry 97 95 Oxygen Delivery BiPAP Oxygen Flow Rate Fraction of Inspired Oxygen 45 12/03/24 01:37 12/03/24 02:00 12/03/24 03:46 Temperature 37.2 C Pulse Rate 92 84 81 Respiratory Rate 21 H 20 Blood Pressure 135/71 Pulse Oximetry 93 98 Oxygen Delivery BiPAP Oxygen Flow Rate Fraction of Inspired Oxygen 12/03/24 03:49 12/03/24 04:00 12/03/24 05:18 Temperature Pulse Rate 81 78 88 Respiratory Rate 20 15 Blood Pressure Pulse Oximetry 98 96 Oxygen Delivery BiPAP BiPAP Oxygen Flow Rate Fraction of Inspired Oxygen 45 12/03/24 06:00 12/03/24 08:00 12/03/24 08:00 Temperature 36.9 C Pulse Rate 85 97 145 H Respiratory Rate 16 16 Blood Pressure 167/76 H Pulse Oximetry 99 95 Oxygen Delivery High Flow Nasal Cannula Oxygen Flow Rate 5 Fraction of Inspired Oxygen 45 12/03/24 08:00 12/03/24 08:32 12/03/24 08:34 Temperature Pulse Rate 98 97 95 Respiratory Rate 16 16 Blood Pressure Pulse Oximetry 97 Oxygen Delivery BiPAP Oxygen Flow Rate Fraction of Inspired Oxygen 12/03/24 08:44 12/03/24 08:45 12/03/24 08:46 Temperature Pulse Rate 146 H 145 H Respiratory Rate 16 Blood Pressure Pulse Oximetry 95 Oxygen Delivery High Flow Nasal Cannula Oxygen Flow Rate 5 Fraction of Inspired Oxygen 12/03/24 09:06 12/03/24 09:06 12/03/24 09:15 Temperature Pulse Rate 145 H 144 H 170 H Respiratory Rate Blood Pressure 150/97 H Pulse Oximetry 92 Oxygen Delivery Oxygen Flow Rate Fraction of Inspired Oxygen 12/03/24 09:15 12/03/24 09:36 12/03/24 10:00 Temperature 37.1 C Pulse Rate 170 H 164 H 160 H Respiratory Rate 16 Blood Pressure 147/93 H 147/94 H 140/96 H Pulse Oximetry 96 97 Oxygen Delivery Oxygen Flow Rate Fraction of Inspired Oxygen 12/03/24 11:11 12/03/24 11:31 12/03/24 12:00 Temperature 37.1 C Pulse Rate 163 H 128 H 149 H Respiratory Rate 20 Blood Pressure 103/77 117/94 H Pulse Oximetry 98 Oxygen Delivery Oxygen Flow Rate Fraction of Inspired Oxygen 12/03/24 12:18 12/03/24 12:19 12/03/24 12:19 Temperature Pulse Rate 133 H 135 H 135 H Respiratory Rate Blood Pressure 112/66 112/66 112/66 Pulse Oximetry Oxygen Delivery Oxygen Flow Rate Fraction of Inspired Oxygen 12/03/24 13:24 12/03/24 14:00 Temperature 36.9 C Pulse Rate 136 H 138 H Respiratory Rate 20 Blood Pressure 118/73 Pulse Oximetry 95 Oxygen Delivery Oxygen Flow Rate Fraction of Inspired Oxygen Exam 2 Const: Other: Appears ill HENMT: Mouth: Yes moist mucous membranes Eyes: EOM: EOMs intact bilaterally Neck: Neck: no JVD Resp: Effort & Inspection: normal respiratory effort Auscultation: rales Cardio: Rate: tachycardic Rhythm: abnormal rhythm GI: GI Palp: Yes Soft to palpation Extrem: General: no pedal edema Results Labs and Meds 12/03/24 05:32 12/03/24 05:32 Lab results: Cardiac Enzymes 12/03/24 12/03/24 Range/Units 05:32 12:09 AST 15 (14-36) U/L Troponin I 0.025 (0.000-0.034) ng/mL CBC 12/03/24 Range/Units 05:32 WBC 12.1 H (4.5-10.0) K/mm3 RBC 3.48 L (4.2-5.4) M/mm3 Hgb 9.4 L (12.0-15.0) g/dL Hct 31.2 L (37.0-47.0) % Plt Count 236 (150-375) k/mm3 Lymph # (Auto) 1.29 (0.9-3.2) K/mm3 [place] # (Auto) 1.1 H (0.1-0.6) K/mm3 Eos # (Auto) 0.0 (0-0.3) K/mm3 Baso # (Auto) 0.0 (0.0-0.1) K/mm3 Comprehensive Metabolic Panel 12/03/24 Range/Units 05:32 Sodium 136 L (137-145) mmol/L Potassium 4.2 (3.4-5.0) mmol/L Chloride 94 L (98-107) mmol/L Carbon Dioxide 38 H (22-30) mmol/L BUN 32 H (7-17) mg/dL Creatinine 1.29 H (0.7-1.0) mg/dL Glucose 131 H (65-110) mg/dL Calcium 9.1 (8.4-10.2) mg/dL AST 15 (14-36) U/L ALT 12 (6-35) U/L Alkaline Phosphatase 76 (38-126) U/L Total Protein 7.0 (6.3-8.2) g/dL Albumin 3.6 (3.5-5.1) g/dL Intake and Output 12/02/24 12/03/24 12/03/24 23:59 07:59 15:59 Intake Total 537 100 139.6 Output Total 300 1100 Balance 237 -1000 139.6 Intake: IV 300 100 19.6 dilTIAZem 100 MG/100 ML 100 mg 19.6 In 100 ml @ 15 MG/HR 15 mls/hr IV CONT .Q6H40M STA Rx#: [id number] Azithromycin 500 mg/Ns 250 ml 250 500 mg In 250 ml @ 250 mls/hr IVPB Q24H [facility] Rx#:[id number] Piperacilln/Donald 3.375GM/Ns50ml 50 100 3.375 gm In 50 ml @ 100 mls/hr IVPB Q6HR [facility] Rx#:[id number] Oral 237 120 Output: Urine 1100 Catheter Urine 300 Urethral Catheter 300 Patient Weight 12/03/24 23:59 Weight 120.5 kg
[2024-12-03] MEDS: METOPROLOL TARTRATE 50 MG TAB PO ×2 (17:14→23:16)
[2024-12-03] MEDS: AMIODARONE 360 MG/D5W 200 ML 360 MG/200 ML BAG 16.67 MG IV CONT (18:44)
--- NOTE | 2024-12-03 19:45 | ECG_ITS ---
Test Date: 2024-12-03 20:00:54 Measurements Intervals [place] Rate: 70 P: 35 CA: 161 QRS: 17 QRSD: 150 T: 30 QT: 399 QTc: 433 Interpretive Statements SINUS RHYTHM WITH OCCASIONAL SUPRAVENTRICULAR PREMATURE COMPLEXES RIGHT BUNDLE BRANCH BLOCK ABNORMAL ECG Compared to ECG 12/03/2024 10:52:34 Atrial fibrillation no longer present Electronically Signed On 12-04-2024 07:49:10 CDT by Hong Meade D.O.
--- NOTE | 2024-12-03 20:52 | PC.NURSE ---
call out clerk physician Dr. Mena called at 2014. Still awaiting call back. Will pass on to ROX Roach that EKG reflects pt is now in NSR. Message left for Dr. Mena.
--- NOTE | 2024-12-03 21:04 | PC.NURSE ---
Updated Dr. Mena on pts status. Advised to continue amio gtt. D/c if HR < 50. ROX Roach made aware.
[2024-12-03] MEDS: rOPINIRole HCL 1 MG TABLET 4 MG PO (21:13)
[2024-12-03] MEDS: AMITRIPTYLINE HCL 10 MG TABLET PO (21:14)
[2024-12-03] MEDS: QUEtiapine FUMARATE 25 MG TABLET PO (21:15)
[2024-12-03] MEDS: HYALURONIDASE, HUMAN RECOMB. 150 UNITS/ML VIAL SUB-Q (21:15)
[2024-12-04] VITALS (27 sets, daily range): BP systolic 108–148; BP diastolic 53–91; PULSE 60–84; RESP 14–20; TEMP 36.6–37.2; O2SAT 93–98
[2024-12-04] MEDS: AMIODARONE 360 MG/D5W 200 ML 360 MG/200 ML BAG 16.67 MG IV CONT ×2 (02:00→04:00)
[2024-12-04 04:11] LABS: Basophils Percent Auto 0.2 % (0.2-1.2); Eosinophils Percent Auto 0.3 % (0-4.4); Hematocrit 32.3 % (37.0-47.0); Hemoglobin 9.5 g/dL (12.0-15.0); Immature Granulocyte Absolute 0.08 K/mm3 (0.00-0.031); Immature Granulocyte Percent A 0.8 % (0-0.5); Lymphocytes Absolute Auto 2.69 K/mm3 (0.9-3.2); Lymphocytes Percent Auto 26.5 % (18.3-44.2); Mean Corpuscular HGB Conc 29.4 g/dl (32-36); Mean Corpuscular Hemoglobin 26.5 pg (26-34); Mean Corpuscular Volume 90.2 fl (80-100); Mean Platelet Volume 9.5 fl (7.4-10.4); Monocytes Percent Auto 9.5 % (2.6-8.5); Neutrophils Absolute Auto 6.4 K/mm3 (1.3-6.7); Neutrophils Percent Auto 62.7 % (45.5-73.1); Platelet Count Result 258 k/mm3 (150-375); Red Blood Count 3.58 M/mm3 (4.2-5.4); Red Cell Distribution Width 14.7 % (11.5-14.5); White Blood Count 10.2 K/mm3 (4.5-10.0)
[2024-12-04 04:25] LABS: Alanine Aminotransferase 26 U/L (6-35); Albumin Level 3.5 g/dL (3.5-5.1); Alkaline Phosphatase 84 U/L (38-126); Anion Gap 7 mmol/L (4-12); Aspartate Amino Transferase 33 U/L (14-36); Bilirubin,Total 0.5 mg/dL (0.2-1.3); Blood Urea Nitrogen 35 mg/dL (7-17); Calcium 9.2 mg/dL (8.4-10.2); Carbon Dioxide 35 mmol/L (22-30); Chloride 96 mmol/L (98-107); Estimated CRCL calculation 49 ml/min; Estimated Glomerular Filt Rate 39; Glucose 97 mg/dL (65-110); Potassium 3.7 mmol/L (3.4-5.0); Sodium 138 mmol/L (137-145)
[2024-12-04 04:33] LABS: Anisocytosis 1+; Hypochromasia 1+; Platelet Estimate Adequate (Adequate); Stomatocytes 1+
[2024-12-04 04:34] LABS: Schistocytes None Seen
[2024-12-04] MEDS: PIPERACILLN/TAZ 3.375GM/NS50ML 3.375 GM/50 ML BAG IVPB ×3 (05:21→18:03)
[2024-12-04] MEDS: HEPARIN SODIUM 5,000 UNITS/ML VIAL 5000 UNITS SUB-Q ×2 (05:24→13:30)
[2024-12-04] MEDS: METOPROLOL TARTRATE 50 MG TAB PO (05:24)
[2024-12-04] MEDS: IPRATROPIUM BR 0.02% INH SOLN 0.5 MG/2.5 ML VIAL INHALATION ×4 (07:38→19:57)
--- NOTE | 2024-12-04 08:17 | PM.IMPN ---
Progress Note: A&P Assessment and Plan (1) Acute on chronic respiratory failure with hypoxia and hypercapnia: Code(s): J96.21 - Acute and chronic respiratory failure with hypoxia; J96.22 - Acute and chronic respiratory failure with hypercapnia Status: Acute Plan COPD exacerbation: Home O2 Discontinued DuoNeb due to tachycardia Started on Xopenex Continue Zosyn and azithromycin Currently on prednisone 40 mg p.o. q.d. Long smoking history Previous exacerbation on 01/14/2024 Multiple comorbid conditions including CHF COPD Exacerbation requiring BiPAP Currently on steroid methylprednisone 60 mg IV q.8 hours No evidence of Pulmonology workup done as OP. Currently on Zosyn Negative for RSV Influenza and COVID CTA negative for pulmonary embolism Ultrasound of upper and lower extremity no evidence of DVT CHF exacerbation BNP 758 ECHO: The left ventricular ejection fraction visually estimated to be 60-60%. Previously Holding Lasix 20 mg p.o. b.i.d. due to recent contrast Cardiology started Lasix 40mg IV BID but will decrease to 20mg IV BID due to decreasing renal function. monitor renal function during diuresis echocardiogram pending EKG sinus tachycardia Chest x-ray Pulmonary edema Optimize Scooter inhibitors, beta-blockers, ARNI Daily weights. fluid restriction Strict I&O's elevate/Scooter wrap legs if needed Continue metoprolol succinate to 25 mg p.o. q.d. Optimize blood pressure less than 130/80. Fall risk assessment. A.fib Not taking Eliquis for about 2 years due to previous history of rectus sheath Hematoma ? twice Cardiology following Left atrial appendage occlusion device as OP Lopressor 50 mg q.6 hours Amiodarone S/P Amiodarone 200 mg p.o. b.i.d., metoprolol 100 mg p.o. b.i.d. Subjective Date/time seen: 12/04/24 08:17 Interval history: Patient reports currently doing well compared to yesterday. Cardiology started Lasix 40mg IV BID but will decrease to 20mg IV BID due to decreasing renal function and recent contrast exposure. Exam Const: General: in distress HENMT: Ears: TM's normal bilaterally Face/Nose/Sinus: Normal nares present Eyes: General: appearance normal, both eyes and all related structures Sclera: sclerae normal Pupils: Equal, round and reactive pupils present Neck: Neck: supple Resp: Effort & Inspection: abnormal respiratory effort Auscultation: wheezes and diminished lung sounds bilateral throughout Cardio: Rate: regular rate Skin: General skin exam: normal color Neuro: Cranial nerves: Yes Equal, round and reactive pupils present Motor exam (neuro): 5/5 motor strength present throughout and Normal motor muscle tone present throughout Sensory Exam: normal sensation Extrem: General: normal to inspection Psych: Mental Status: mental status grossly normal Affect: Anxious affect present Objective Data Vital Signs Vital Signs: Vital Signs - 24 hr 12/03/24 08:32 12/03/24 08:34 12/03/24 08:44 Temperature Pulse Rate 97 95 146 H Respiratory Rate 16 16 16 Blood Pressure Pulse Oximetry 97 Oxygen Delivery BiPAP Oxygen Flow Rate Fraction of Inspired Oxygen 12/03/24 08:45 12/03/24 08:46 12/03/24 09:06 Temperature Pulse Rate 145 H 145 H Respiratory Rate Blood Pressure Pulse Oximetry 95 Oxygen Delivery High Flow Nasal Cannula Oxygen Flow Rate 5 Fraction of Inspired Oxygen 12/03/24 09:06 12/03/24 09:15 12/03/24 09:15 Temperature Pulse Rate 144 H 170 H 170 H Respiratory Rate Blood Pressure 150/97 H 147/93 H Pulse Oximetry 92 96 Oxygen Delivery Oxygen Flow Rate Fraction of Inspired Oxygen 12/03/24 09:36 12/03/24 10:00 12/03/24 10:00 Temperature 98.7 F Pulse Rate 164 H 160 H 160 H Respiratory Rate 16 Blood Pressure 147/94 H 140/96 H 140/96 H Pulse Oximetry 97 Oxygen Delivery Oxygen Flow Rate Fraction of Inspired Oxygen 12/03/24 10:00 12/03/24 11:11 12/03/24 11:31 Temperature Pulse Rate 163 H 163 H 128 H Respiratory Rate Blood Pressure 103/77 Pulse Oximetry Oxygen Delivery Oxygen Flow Rate Fraction of Inspired Oxygen 12/03/24 12:00 12/03/24 12:00 12/03/24 12:00 Temperature 98.7 F Pulse Rate 149 H 149 H 151 H Respiratory Rate 20 Blood Pressure 117/94 H 117/94 H Pulse Oximetry 98 Oxygen Delivery Oxygen Flow Rate Fraction of Inspired Oxygen 12/03/24 12:00 12/03/24 12:18 12/03/24 12:19 Temperature Pulse Rate 133 H 135 H Respiratory Rate Blood Pressure 112/66 112/66 Pulse Oximetry 97 Oxygen Delivery High Flow Nasal Cannula Oxygen Flow Rate 5 Fraction of Inspired Oxygen 12/03/24 12:19 12/03/24 13:24 12/03/24 14:00 Temperature 98.4 F Pulse Rate 135 H 136 H 138 H Respiratory Rate 20 Blood Pressure 112/66 118/73 Pulse Oximetry 95 Oxygen Delivery Oxygen Flow Rate Fraction of Inspired Oxygen 12/03/24 14:00 12/03/24 14:00 12/03/24 16:00 Temperature 98.1 F Pulse Rate 138 H 145 H 75 Respiratory Rate 20 Blood Pressure 118/73 129/81 Pulse Oximetry 97 Oxygen Delivery Oxygen Flow Rate Fraction of Inspired Oxygen 12/03/24 16:00 12/03/24 16:00 12/03/24 16:00 Temperature Pulse Rate 75 78 Respiratory Rate Blood Pressure 129/81 Pulse Oximetry 96 Oxygen Delivery High Flow Nasal Cannula Oxygen Flow Rate 5 Fraction of Inspired Oxygen 12/03/24 17:14 12/03/24 18:00 12/03/24 18:00 Temperature 98.1 F Pulse Rate 76 77 77 Respiratory Rate 23 H Blood Pressure 140/61 140/61 Pulse Oximetry 99 Oxygen Delivery Oxygen Flow Rate Fraction of Inspired Oxygen 12/03/24 18:00 12/03/24 18:44 12/03/24 20:00 Temperature 98.2 F Pulse Rate 77 77 69 Respiratory Rate 20 Blood Pressure 140/61 127/57 L Pulse Oximetry 98 Oxygen Delivery Oxygen Flow Rate Fraction of Inspired Oxygen 12/03/24 20:00 12/03/24 20:00 12/03/24 20:00 Temperature Pulse Rate 69 68 Respiratory Rate Blood Pressure 127/57 L Pulse Oximetry 97 Oxygen Delivery High Flow Nasal Cannula Oxygen Flow Rate 5 Fraction of Inspired Oxygen 12/03/24 20:17 12/03/24 22:00 12/03/24 22:00 Temperature Pulse Rate 64 64 Respiratory Rate Blood Pressure 125/51 L 125/51 L Pulse Oximetry 97 Oxygen Delivery High Flow Nasal Cannula Oxygen Flow Rate 5 Fraction of Inspired Oxygen 12/03/24 22:00 12/03/24 22:00 12/03/24 23:16 Temperature Pulse Rate 64 64 67 Respiratory Rate 17 Blood Pressure Pulse Oximetry 98 Oxygen Delivery BiPAP Oxygen Flow Rate Fraction of Inspired Oxygen 12/03/24 23:25 12/04/24 00:00 12/04/24 00:00 Temperature 97.9 F Pulse Rate 63 63 Respiratory Rate 20 Blood Pressure 148/63 H 148/63 H Pulse Oximetry 92 95 Oxygen Delivery BiPAP Oxygen Flow Rate Fraction of Inspired Oxygen 32 12/04/24 00:00 12/04/24 02:00 12/04/24 02:00 Temperature Pulse Rate 60 66 66 Respiratory Rate Blood Pressure 142/69 H Pulse Oximetry Oxygen Delivery Oxygen Flow Rate Fraction of Inspired Oxygen 12/04/24 02:00 12/04/24 02:00 12/04/24 04:00 Temperature Pulse Rate 66 66 69 Respiratory Rate Blood Pressure 142/69 H 142/69 H 141/80 H Pulse Oximetry Oxygen Delivery Oxygen Flow Rate Fraction of Inspired Oxygen 12/04/24 04:00 12/04/24 04:00 12/04/24 04:00 Temperature 98.0 F Pulse Rate 69 69 Respiratory Rate 20 Blood Pressure 141/80 H 141/80 H Pulse Oximetry 98 98 Oxygen Delivery High Flow Nasal Cannula Oxygen Flow Rate 5 Fraction of Inspired Oxygen 12/04/24 04:00 12/04/24 05:24 12/04/24 06:00 Temperature Pulse Rate 65 66 67 Respiratory Rate Blood Pressure Pulse Oximetry Oxygen Delivery Oxygen Flow Rate Fraction of Inspired Oxygen 12/04/24 06:00 12/04/24 06:00 12/04/24 07:39 Temperature Pulse Rate 67 67 Respiratory Rate Blood Pressure 121/68 121/68 Pulse Oximetry 95 Oxygen Delivery High Flow Nasal Cannula Oxygen Flow Rate 5 Fraction of Inspired Oxygen 12/04/24 07:39 12/04/24 07:48 Temperature Pulse Rate 72 73 Respiratory Rate 16 16 Blood Pressure Pulse Oximetry Oxygen Delivery Oxygen Flow Rate Fraction of Inspired Oxygen Intake/Output Intake/Output: Intake & Output 12/01/24 12/02/24 12/03/24 12/04/24 23:59 23:59 23:59 23:59 Intake Total 924 875.5 483.2 Output Total 1700 1610 950 Balance -776 -1174.5 -466.8 Meds/Results Medications: Active Medications Generic Name Dose Route Start Last Admin Trade Name Freq PRN Reason Stop Dose Admin Acetaminophen 650 mg 12/02/24 03:29 Acetaminophen 325 Mg Tablet PO Q4H PRN Mild Pain (1-3) or Fever Amitriptyline HCl 10 mg 12/02/24 21:00 12/03/24 21:14 Amitriptyline Hcl 10 Mg Tablet PO 10 mg HS YODIT Administration Duloxetine HCl 40 mg 12/04/24 09:00 Duloxetine Hcl 20 Mg Capsule.Dr PO DAILY YODIT Escitalopram Oxalate 20 mg 12/02/24 09:00 12/03/24 08:47 Escitalopram Oxalate 10 Mg Tablet PO 20 mg DAILY YODIT Administration Ferrous Sulfate 325 mg 12/02/24 09:00 12/03/24 17:14 Ferrous Sulfate [address] PO 325 mg BID YODIT Administration Furosemide 40 mg 12/04/24 09:00 Furosemide Inj 40 Mg/4 Ml Vial IV PUSH DAILY YODIT Guaifenesin/Dextromethorphan 10 ml 12/02/24 03:29 Guaifenesin/Dextromethorphan 10 Ml Udc PO Q4H PRN Cough Heparin Sodium (Porcine) 5,000 units 12/02/24 06:00 12/04/24 05:24 Heparin Sodium 5,000 Units/Ml Vial SUB-Q 5,000 units Q8HR YODIT Administration Piperacillin/Tazobactam/Dextrose 3.375 gm in 50 mls @ 100 mls/hr 12/02/24 04:00 12/04/24 05:51 Zosyn 3.375 Gm/Ns 50 Ml IVPB Infused Q6HR YODIT Infusion Azithromycin 500 mg in 250 mls @ 250 mls/hr 12/02/24 13:00 12/03/24 13:29 Zithromax IVPB 250 mls/hr Q24H YODIT Administration Amiodarone HCl/Dextrose 360 mg in 200 mls @ 16.667 mls/hr 12/04/24 02:30 12/04/24 06:00 Nexterone 360 Mg/D5w 200 Ml IV CONT 0.5 mg/min .Q12H YODIT 16.67 mls/hr Infusion 0.5 MG/MIN Ipratropium [place] 0.5 mg 12/03/24 12:00 12/04/24 07:38 Ipratropium Br 0.02% Inh Soln 0.5 Mg/2.5 Ml Vial INHALATION 0.5 mg Q4HRT YODIT Administration Melatonin 5 mg 12/02/24 03:29 Melatonin 5 Mg Tablet PO HS PRN Insomnia Melatonin 5 mg 12/02/24 11:06 Melatonin 5 Mg Tablet PO HS PRN Insomnia Metoprolol Tartrate 50 mg 12/03/24 18:00 12/04/24 05:24 Metoprolol Tartrate 50 Mg Tab PO 50 mg Q6HR YODIT Administration Miscellaneous Information 1 each 12/02/24 00:01 12/03/24 15:05 External Med History Indicated Pt Is Taking Duloxetine Dr 20mg Bid Versus Daily, Please C XX 01/01/25 00:00 Not Given CLARIFY YODIT Montelukast Sodium 10 mg 12/03/24 09:00 12/03/24 08:47 Montelukast Sodium 10 Mg Tablet PO 10 mg DAILY YODIT Administration Ondansetron HCl 4 mg 12/02/24 00:29 Ondansetron Inj 4 Mg/2 Ml Vial IV PUSH Q4H PRN Nausea Pantoprazole Sodium 40 mg 12/02/24 09:00 12/03/24 21:15 Pantoprazole 40 Mg Tablet PO 40 mg Q12HR YODIT Administration Potassium Chloride 20 meq 12/03/24 09:00 12/03/24 08:51 Potassium Chloride 20 Meq Packet (For Liquid) PO 20 meq DAILY YODIT Administration Prednisone 40 mg 12/03/24 08:00 12/03/24 08:46 Prednisone 20 Mg Tablet PO 40 mg DAILY@0800 YODIT Administration Quetiapine Fumarate 25 mg 12/02/24 21:00 12/03/24 21:15 Quetiapine Fumarate 25 Mg Tablet PO 25 mg HS YODIT Administration Ropinirole HCl 4 mg 12/02/24 21:00 12/03/24 21:13 Ropinirole Hcl 1 Mg Tablet PO 4 mg HS YODIT Administration Topiramate 200 mg 12/02/24 09:00 12/03/24 21:14 Topiramate 100 Mg Tablet PO 200 mg Q12HR YODIT Administration Trazodone HCl 50 mg 12/02/24 21:00 12/03/24 21:24 Trazodone Hcl 50 Mg Tablet PO Not Given HS YODIT Radiology Results: ITS Impressions Chest X-Ray 12/01/24 21:45 IMPRESSION: Cardiomegaly with cardiac decompensation and pulmonary edema. Pneumonitis in the lower lobes is not excluded Chest CTA 12/02/24 15:44 IMPRESSION: 1. No pulmonary embolism. 2. Bilateral basal atelectasis versus pneumonia. Clinical correlation advised. Venous Doppler Study 12/02/24 16:23 IMPRESSION: 1. Patent bilateral upper extremity veins. No evidence of venous thrombosis. Labs Labs: Laboratory Results - last 24 hr 12/03/24 12/03/24 12/04/24 05:26 12:09 03:50 WBC 10.2 H RBC 3.58 L Hgb 9.5 L Hct 32.3 L MCV 90.2 MCH 26.5 MCHC 29.4 L RDW 14.7 H Plt Count 258 MPV 9.5 Immature Gran % (Auto) 0.8 H Neut % (Auto) 62.7 Lymph % (Auto) 26.5 [place] % (Auto) 9.5 H Eos % (Auto) 0.3 Baso % (Auto) 0.2 Lymph # (Auto) 2.69 [place] # (Auto) 1.0 H Eos # (Auto) 0.0 Baso # (Auto) 0.0 Abs Immat Gran (auto) 0.08 H Absolute Neuts (auto) 6.4 Absolute Nucleated RBC 0.000 Band Neutrophils % Not Reportable Nucleated RBC % 0.0 Platelet Estimate Adequate Hypochromasia 1+ Anisocytosis 1+ Stomatocytes 1+ Schistocytes None seen Sodium 138 Potassium 3.7 Chloride 96 L Carbon Dioxide 35 H Anion Gap 7 BUN 35 H Creatinine 1.36 H Estim Creat Clear Calc 49 Estimated GFR 39 L Glucose 97 Calcium 9.2 Total Bilirubin 0.5 AST 33 ALT 26 Alkaline Phosphatase 84 Troponin I 0.025 Total Protein 7.0 Albumin 3.5 Procalcitonin 0.3 Hospitalist MIPS Advance Care Plan I have confirmed that the patient's Advanced Care Plan is present, code status is documented, or surrogate decision maker is listed in patient medical record.: Yes Medication Reconciliation I have utilized all available resources to obtain, update and review the patients current medications (includes all prescriptions, OTC, herbals, cannabis, and nutritional supplements).: Yes
[2024-12-04] MEDS: MONTELUKAST SODIUM 10 MG TABLET PO (08:36)
[2024-12-04] MEDS: TOPIRAMATE 100 MG TABLET 200 MG PO (08:39)
[2024-12-04] MEDS: POTASSIUM CHLORIDE 20 MEQ PACKET (FOR LIQUID) PO (08:39)
[2024-12-04] MEDS: ESCITALOPRAM OXALATE 10 MG TABLET 20 MG PO (08:40)
[2024-12-04] MEDS: FERROUS SULFATE 325 MG TABLET DR PO ×2 (08:40→18:03)
[2024-12-04] MEDS: FUROSEMIDE INJ 40 MG/4 ML VIAL 20 MG IV PUSH (08:40)
[2024-12-04] MEDS: predniSONE 20 MG TABLET 40 MG PO (08:40)
[2024-12-04] MEDS: DULoxetine HCL 20 MG CAPSULE.DR 40 MG PO (08:40)
[2024-12-04] MEDS: PANTOPRAZOLE 40 MG TABLET PO ×2 (08:40→21:48)
--- NOTE | 2024-12-04 08:54 | P.PNPL_ITS ---
Progress Note: A&P Assessment and Plan (1) Chronic obstructive pulmonary disease: Code(s): J44.9 - Chronic obstructive pulmonary disease, unspecified Status: Chronic Assessment and Plan: Regarding her COPD the patient has been on oxygen for the last 5 years. I have no PFTs. She is using 5 L at rest with home saturations 92-96%. First CT scan in our system is from 08/27/2022 and this shows mild apical predominant centrilobular emphysema. Repeat CT angiogram of the chest on 12/02/2024 demonstrates mild apical predominant centrilobular emphysema. She is using 6 L with activity but even with walking room to room her saturations go into the mid 70s. Patient is maintained on trelegy inhaler but she does not use a because of the taste. Patient takes montelukast 10 and albuterol p.r.n.. Patient follows with a telecommunications facility examiner in [place] Dr. Zamorano. Patient has chronic hypercarbic respiratory failure from her COPD with a blood gas of 7.34/65/103 and a serum bicarbonate greater than 40. She would benefit from a noninvasive ventilation. Patient was placed on BiPAP but could not tolerate these settings because the flow in pressures were too high. I will initiate the process for a home noninvasive ventilator with the AVAPS mode through her [employer] for oxygen which is [employer]. 12/02/24: patient with a history of COPD, worsening cough, shortness of breath and hypoxemia. She says she has had no change in her phlegm production. No wheezing currently. Plan: will treat the patient for COPD exacerbation and will continue Solu- Medrol 60 Q 8. Will change to prednisone 40 mg p.o. q.day on 12/03/2024. Continue DuoNebs q.6 hours. Continue montelukast 10. Patient has a history of UTI and was started on ciprofloxacin on 12/01/2024. Patient currently on Zosyn. Will add azithromycin. Goal saturation 90-94%. Adjust study oxygen accordingly. I will send respiratory pathogen panel, mycoplasma IgM antibody, urine pneumococcal, urine Legionella studies looking for infectious etiology. I will send alpha 1 anti trypsin genotype and level looking for genetic predisposition for her COPD. Patient has a positive D-dimer and I will check a CT angiogram of the chest, she has swelling of the lower extremities and upper extremities bilaterally and I will get upper and lower extremity Dopplers. Echocardiogram has been ordered. Later in the day patient had a CT angiogram of the chest which was negative for PE, mild apical predominant centrilobular emphysema, posterior lower lobe atelectasis versus infiltrate right greater than left. No pleural effusions. Upper and lower extremity Dopplers were negative for DVT. Echocardiogram with LVEF 60 65%, RV was dilated with normal systolic function. Left atrium normal, right atrium normal, RVSP 27 12/03/2024: Patient told me she slept with the noninvasive ventilator in the AVAPS last night and did well. She said she slept well and was well rested. Cu rrently she is in AFib RVR on 5 of Dilt drip but her heart rate remains 160. She says she has no shortness of breath but just feels bad. Her saturations on the 5 L are 94%. She is in no respiratory distress. She had a fever last night. White blood cell count 12.1, creatinine 1.29, BNP 972. Procalcitonin 0.3. She received 1 dose of Lasix yesterday. Plan: she has no wheezing at this time. Continue prednisone 40 mg p.o. q.day, day 2 steroids. I will discontinue all beta agonists as she has a tachyarrhythmia. I will increase her ipratropium nebulizers to q.[address] scan shows small posterior lower lobe atelectasis versus infiltrate, she had a fever, procalcitonin is low and she has a leukocytosis. She is on Zosyn and azithromycin for possible pneumonia. I am not convinced this is pneumonia but will continue treatment for now while other etiologies of her fever and leukocytosis are being worked up. 12/04/24: Patient feels better than she did yesterday. Overall she tells me she is breathing normal. She denies cough, phlegm or hemoptysis. She is afebrile. White blood cell count 10.2, creatinine 1.36. She diuresed 1.1 L yesterday and cumulative she has diuresed 2.4 L. Her weight today is 121.7 with an admission weight of 121.8. She is wheezing on exam. On amiodarone drip heart rate over the last 12 hours 60 to 74. Plan: Patient has wheezing on exam is but denies shortness of breath. Oxygenation continues to improve. She is in no respiratory distress. I will continue prednisone 40 mg p.o. q.day, day 3 of steroids. I will continue iprat ropium 0.5 mg nebulized q.4 hours and add levalbuterol 1.25 mg nebulized Q 4 hours. currently patient is on Zosyn and azithromycin for possible pneumonia, both day 3. Will continue. AFib RVR, and fluid overload managed per hospitalist and real estate agency licensee teams. Discussed with Dr. Farfan, will follow with you. (2) Chronic hypercapnic respiratory failure: Code(s): J96.12 - Chronic respiratory failure with hypercapnia Status: Acute Assessment and Plan: Patient has chronic hypercarbic respiratory failure from her COPD with a blood gas of 7.34/65/103 and a serum bicarbonate greater than 40. She would benefit from a noninvasive ventilation. Patient was placed on BiPAP but could not tolerate these settings because the flow in pressures were too high. I will initiate the process for a home noninvasive ventilator with the AVAPS mode [facility] [employer] for oxygen which is [employer]. 12/02/2024: When I enter the room the patient was on BiPAP in no respiratory distress. Patient told me the machine and the breathing was uncomfortable and that she would not be able to sleep with this. I changed her to noninvasive ventilator with the AVAS mode an adjusted settings to comfort resulting in a rate of 14, tidal volume 500, EPAP 5, minimal inspiratory pressure 6, maximal inspiratory pressure 25, inspiratory time 1.0, rise of 1 which is are fast this and it and 40% FiO2. She was able to tolerate these settings. She felt she could come off BiPAP and I placed her on 5 L nasal cannula and after 12 minutes her saturations were 92%. Plan: Patient can use noninvasive ventilation with the AVAPS mode p.r.nSangita woods g the day but should wear this at night. I will perform an overnight oximetry and ABG prior to removal on these settings. Later in the day initiated home noninvasive ventilation 12/03/24: Patient slept with the noninvasive ventilator last night and said she did well and was able to sleep. On the noninvasive ventilator with the AVAPS settings as above and 40% FiO2 the patient had an overnight oximetry with recording duration of 7 hours and 45 minutes. Average saturation 95%. Low saturation 89%. Time with saturation less than or equal to 88% was 0 minutes. Oxygen desaturation index 2.2. Patient an ABG prior to removal with a pH of 7.43/58/101. Plan: Current noninvasive ventilation with the AVAPS mode rate of 14, tidal volume 500, EPAP 5, minimal inspiratory pressure 6, maximal inspiratory pressure 25, inspiratory time 1.0, rise of 1 which is are fast this and it and 40% FiO2, provide adequate ventilation and oxygenation. I will place her on AVAPS mode with 32% FiO2 tonight and repeat an overnight oximetry. 12/04/24: Patient wore the noninvasive ventilator last night with 32% FiO2. She had an overnight oximetry on these settings with recording duration of 7 hours a nd 2 minutes, average saturation 96%. Low saturation 85%. Time with saturation less than or equal to 88% was 3 minutes, oxygen desaturation index 3.3. Plan: current noninvasive ventilation with the AVAPS settings above and 32% FiO2 provide adequate ventilation and oxygenation and will continue. Subjective Date/time seen: 12/04/24 08:54 Interval history: 12/02/2024: This is a new pulmonary consult for acute on chronic hypercarbic and hypoxemic respiratory failure. 64-year-old with a history of hypertension, restless legs syndrome, anxiety and COPD With chronic hypoxemic respiratory failure on 5 L at rest and 6 L with activity. Regarding her COPD the patient has been on oxygen for the last 5 years. I have no PFTs. She is using 5 L at rest with home saturations 92-96%. For CT scan in our system is from 08/27/2022 and this shows mild apical predominant centrilobular emphysema. She is using 6 L with activity but even with walking room to room her saturations go into the mid 70s. Patient is maintained on trelegy inhaler but she does not use a because of the taste. Patient takes montelukast 10 and albuterol p.r.n.. Patient follows with a telecommunications facility examiner in [place] Dr. Zamorano. Patient is currently on BiPAP and family is in the room who aids with history. For the last 2-3 weeks patient has had worsening shortness of breath, wheezing, cough with no phlegm production, swelling of the legs and abdomen. She was diagnosed with the UTI on 12/01/2024 and started on ciprofloxacin. Later the night, She had worsening hypoxemia and yesterday she could not keep her saturations up and presented to the emergency room. in the emergency room her blood pressure was 142/106, heart rate 115, respirations 22 and on 15 L non- rebreather her saturation were 98%. Patient had white blood cell count of 14.8 was 0.6% eosinophils equals 89 per micro L, creatinine 1.16, serum bicarbonate greater than 40, COVID influenza and RSV RT PCR study negative. ABG on 10 L non-rebreather was 7.34/65/103. Procalcitonin was 0.4. BNP was 758. Chest x-ray showed pulmonary congestion with left greater than right interstitial infiltrates. Patient was treated for COPD exacerbation, pneumonia, fluid overload. 12/02/2024: When I enter the room the patient was on BiPAP in no respiratory distress. She was awake communicative and following simple commands. The patient told me she was breathing back to her normal. She complained of some dizziness but denied fever, chills, rigors, wheezing, phlegm production or hemoptysis. She said her coughing is slightly increased compared to her baseline. Patient was on BiPAP rate of 22, pressures 16/8 with tidal volumes 880 inspiratory time 1.0 with a blood gas of 7.40/52/43. patient told me the machine and the breathing was uncomfortable and that she would not be able to sleep with this. I changed her to noninvasive ventilator with the AVAS mode an adjusted settings to comfort resulting in a rate of 14, tidal volume 500, EPAP 5, minimal inspiratory pressure 6, maximal inspiratory pressure 25, inspiratory time 1.0, rise of 1 which is are fast this and it and 40% FiO2. She was able to tolerate these settings. She felt she could come off of the BiPAP and I placed her on 5 L nasal cannula and after 12 minutes her saturations were 92%. Later in the day patient had a CT angiogram of the chest which was negative for PE, mild apical predominant centrilobular emphysema posterior lower lobe atelectasis versus infiltrate right greater than left. No pleural effusions. Upper and lower extremity Dopplers were negative for DVT. Echocardiogram with LVEF 60 65%, RV was dilated with normal systolic function. Left atrium normal, right atrium normal, RVSP 27 12/03/2024: Patient told me she slept with the noninvasive ventilator in the AVAPS last night and did well. She said she slept well and was well rested. Currently she is in AFib RVR on 5 of Dilt drip but her heart rate remains 160. She says she has no shortness of breath but just feels bad. Her saturations on the 5 L are 94%. She is in no respiratory distress. She had a fever last night. White blood cell count 12.1, creatinine 1.29, BNP 972. Procalcitonin 0.3. She received 1 dose of Lasix yesterday. Albuterol and levalbuterol treatments discontinued. given metoprolol and diltiazem for AFib RVR which were unsuccessful and started on amiodarone drip yesterday. On the noninvasive ventilator with the AVAPS settings as above and 40% FiO2 the patient had an overnight oximetry with recording duration of 7 hours and 45 minutes. Average saturation 95%. Low saturation 89%. Time with saturation less than or equal to 88% was 0 minutes. Oxygen desaturation index 2.2. Patient an ABG prior to removal with a pH of 7.43/58/101. /: patient feels better than she did yesterday. Overall she tells me she is breathing normal. She denies cough, phlegm or hemoptysis. She is afebrile. White blood cell count 10.2, creatinine 1.36. When I enter the room the patient was on 5 L nasal cannula saturations 97%. I decreased her to 3 L nasal cannula saturations were 92%. She diuresed 1.1 L yesterday and cumulative she has diuresed 2.4 L. Her weight today is 121.7 with an admission weight of 121.8. Patient wore the noninvasive ventilator last night with 32% FiO2. She had an overnight oximetry on these settings with recording duration of 7 hours and 2 minutes, average saturation 96%. Low saturation 85%. Time with saturation less than or equal to 88% was 3 minutes, oxygen desaturation index 3.3. She is wheezing on exam. On amiodarone drip heart rate over the last 12 hours 60 to 74. DATA 12/17/2023: CT Scan of the Chest without Contrast: Clinical Indication: Lung cancer screening, nicotine dependence Technique: Contiguous sections were acquired throughout the chest without intravenous contrast. Dose reduction technique was used on this scan by utilizing automated exposure control and iterative reconstruction technique. The dose-length product (DLP) was 341.26 mGy-cm. COMPARISON: 04/06/2023 Findings: Stable enlarged left thyroid lobe. There is no evidence of any significant mediastinal, hilar or axillary l ymphadenopathy. Atherosclerotic calcifications of the aorta are present. There is no evidence of pleural or pericardial effusion. There is irregular airspace opacity in the posterior right lower lobe, improved from prior exam, likely representing postinflammatory change, as there is a previous more extensive area of consolidation in this location. Mild emphysema. Images through the upper abdomen reveal no abnormalities. Impression: Lung RADS 2: Benign appearance. 12 month follow-up screening CT advised. 09/10/2022: Echo Summary 1. Technically difficult study with limited views. Regional wall motion assessment limited due to poor endomyocardial border definition despite definity contrast enhancement. 2. Left ventricular chamber dimension is normal. 3. Left ventricular systolic function is normal, estimated at 65-70%. 4. There is mildly increased left ventricular wall thickness. 5. Right ventricular chamber dimension is normal. 6. Right ventricular systolic function is moderately reduced. TAPSE 1.3. 7. There is trace tricuspid valve regurgitation. 8. Mild pulmonary hypertension, estimated pulmonary arterial systolic pressure is 37 mmHg. 9. Normal inferior vena cava with <50% collapse upon inspiration consistent with elevated right atrial pressure, 10 mmHg. 08/28/2022: Summary 1. Left ventricular chamber dimension is normal. 2. Left ventricular systolic function is normal, estimated at 60-65%. 3. The left ventricular diastolic function is grade I diastolic dysfunction. 4. Right ventricular chamber dimension is moderately enlarged. 5. Right ventricular systolic function is normal. 6. There is moderate tricuspid valve regurgitation, which may be underestimated due to the eccentricity of the jet. 7. Dilated inferior vena cava with no collapse upon inspiration consistent with elevated right atrial pressure, 15 mmHg. 8. Pulmonary hypertension with an estimated PASP of 59mmHg. Right Ventricle Right ventricular chamber dimension is moderately enlarged. Right ventricular systolic function is normal. Right Atria Right atrial chamber dimension is normal. Atrial Septum Intact interatrial septum visualized by color flow imaging. 08/27/2022: EXAMINATION: CT chest high resolution wo co DATE: 08/27/2022 16:07 INDICATION: respiratory failure TECHNIQUE: Computed tomography (CT) of the chest was performed without intravenous contrast. Automated exposure control and iterative reconstruction technique were employed. The dose-length product was 818.52 mGy-cm. COMPARISON: X-ray chest 08/27/2022 and CTA chest 07/21/2018. FINDINGS: CHEST: Endotracheal tube terminating 2.5 cm above the maria esther. Thoracic aorta: No significant dilation. Moderate arch calcification. Lung parenchyma and airways: Diffuse tree-in-bud opacities most evident in the right lung. Scattered centrilobular nodular opacities measuring up to 11 mm in t he right upper lobe. Mild interlobular septal thickening. Bibasilar dependent opacities likely representing atelectasis. Mild emphysematous change. Thoracic inlet, axillae and chest wall: No thyroid or soft tissue mass. No axillary lymphadenopathy. Mediastinum: Mediastinal lymphadenopathy. Dilated central pulmonary arteries as can be seen with pulmonary arterial hypertension. Heart and pericardium: Normal heart size. Aortic valve calcification. No pericardial effusion. Coronary artery calcifications: Mild. Pleura: Trace bilateral pleural fluid. Upper abdomen: No significant finding. Thoracic bones: No acute osseous finding in the chest. IMPRESSION: 1. Tree-in-bud opacities as can be seen with atypical infection (including but not limited to: MAC, TB, fungal), ABPA, airways disease, and less likely aspiration. 2. Nodular opacity in right upper lobe should be followed after the appropriate therapy and cessation of symptoms to ensure resolution. 3. Mediastinal lymphadenopathy. 4. Trace bilateral pleural effusions. 5. Mild interstitial edema. Review of Systems Constitutional: Constitutional: Reports no additional constitutional complaints Eyes: Eyes: Reports no additional eye complaints ENT: Reports system reviewed and no additional complaints, except as documented Cardiovascular: Cardiovascular: Reports no additional cardiovascular co mplaints Respiratory: Respiratory: Reports no additional respiratory complaints Gastrointestinal: Gastrointestinal: Reports no additional gastrointestinal complaints Musculoskeletal: Musculoskeletal: Reports no additional musculoskeletal complaints Neurologic: Reports system reviewed and no additional complaints, except as documented Psychiatric: Psychiatric: Reports no additional psychiatric complaints Endocrine: Endocrine: Reports no additional endocrine complaints Hematologic/Lymphatic: Hematologic/Lymphatic: Reports no additional hematologic/lymphatic complaints Allergic/Immunologic: Allergic/Immunologic: Reports no additional allergic/immunologic complaints Exam Const: General: cooperative, healthy appearing and comfortable Orientation/consciousness: oriented to person, oriented to place and oriented to time HENMT: Head: normal to inspection Ears: hearing grossly normal bilaterally Eyes: General: appearance normal, both eyes and all related structures Neck: Neck: normal visual inspection Chest: Chest palpation & inspection: normal inspection of the chest Resp: Effort & Inspection: normal respiratory effort and able to speak in complete sentences Auscultation: no crackles, no rales, no rhonchi, wheezes and diminished lung sounds Cardio: Jugular venous distension: no JVD GI: Inspection: normal to inspection Skin: General skin exam: normal color Neuro: General: oriented to person, oriented to place and oriented to time Extrem: General: edema Other: pitting edema upper and lower extremities Psych: Appearance: grossly normal Objective Data Vital Signs Vital Signs: Vital Signs - 24 hr 12/03/24 09:06 12/03/24 09:06 12/03/24 09:15 Temperature Pulse Rate 145 H 144 H 170 H Respiratory Rate Blood Pressure 150/97 H Pulse Oximetry 92 Oxygen Delivery Oxygen Flow Rate Fraction of Inspired Oxygen 12/03/24 09:15 12/03/24 09:36 12/03/24 10:00 Temperature 37.1 C Pulse Rate 170 H 164 H 160 H Respiratory Rate 16 Blood Pressure 147/93 H 147/94 H 140/96 H Pulse Oximetry 96 97 Oxygen Delivery Oxygen Flow Rate Fraction of Inspired Oxygen 12/03/24 10:00 12/03/24 10:00 12/03/24 11:11 Temperature Pulse Rate 160 H 163 H 163 H Respiratory Rate Blood Pressure 140/96 H Pulse Oximetry Oxygen Delivery Oxygen Flow Rate Fraction of Inspired Oxygen 12/03/24 11:31 12/03/24 12:00 12/03/24 12:00 Temperature 37.1 C Pulse Rate 128 H 149 H 149 H Respiratory Rate 20 Blood Pressure 103/77 117/94 H 117/94 H Pulse Oximetry 98 Oxygen Delivery Oxygen Flow Rate Fraction of Inspired Oxygen 12/03/24 12:00 12/03/24 12:00 12/03/24 12:18 Temperature Pulse Rate 151 H 133 H Respiratory Rate Blood Pressure 112/66 Pulse Oximetry 97 Oxygen Delivery High Flow Nasal Cannula Oxygen Flow Rate 5 Fraction of Inspired Oxygen 12/03/24 12:19 12/03/24 12:19 12/03/24 13:24 Temperature Pulse Rate 135 H 135 H 136 H Respiratory Rate Blood Pressure 112/66 112/66 Pulse Oximetry Oxygen Delivery Oxygen Flow Rate Fraction of Inspired Oxygen 12/03/24 14:00 12/03/24 14:00 12/03/24 14:00 Temperature 36.9 C Pulse Rate 138 H 138 H 145 H Respiratory Rate 20 Blood Pressure 118/73 118/73 Pulse Oximetry 95 Oxygen Delivery Oxygen Flow Rate Fraction of Inspired Oxygen 12/03/24 16:00 12/03/24 16:00 12/03/24 16:00 Temperature 36.7 C Pulse Rate 75 75 78 Respiratory Rate 20 Blood Pressure 129/81 129/81 Pulse Oximetry 97 Oxygen Delivery Oxygen Flow Rate Fraction of Inspired Oxygen 12/03/24 16:00 12/03/24 17:14 12/03/24 18:00 Temperature 36.7 C Pulse Rate 76 77 Respiratory Rate 23 H Blood Pressure 140/61 Pulse Oximetry 96 99 Oxygen Delivery High Flow Nasal Cannula Oxygen Flow Rate 5 Fraction of Inspired Oxygen 12/03/24 18:00 12/03/24 18:00 12/03/24 18:44 Temperature Pulse Rate 77 77 77 Respiratory Rate Blood Pressure 140/61 140/61 Pulse Oximetry Oxygen Delivery Oxygen Flow Rate Fraction of Inspired Oxygen 12/03/24 20:00 12/03/24 20:00 12/03/24 20:00 Temperature 36.8 C Pulse Rate 69 69 Respiratory Rate 20 Blood Pressure 127/57 L 127/57 L Pulse Oximetry 98 97 Oxygen Delivery High Flow Nasal Cannula Oxygen Flow Rate 5 Fraction of Inspired Oxygen 12/03/24 20:00 12/03/24 20:17 12/03/24 22:00 Temperature Pulse Rate 68 64 Respiratory Rate Blood Pressure 125/51 L Pulse Oximetry 97 Oxygen Delivery High Flow Nasal Cannula Oxygen Flow Rate 5 Fraction of Inspired Oxygen 12/03/24 22:00 12/03/24 22:00 12/03/24 22:00 Temperature Pulse Rate 64 64 64 Respiratory Rate 17 Blood Pressure 125/51 L Pulse Oximetry 98 Oxygen Delivery BiPAP Oxygen Flow Rate Fraction of Inspired Oxygen 12/03/24 23:16 12/03/24 23:25 12/04/24 00:00 Temperature 36.6 C Pulse Rate 67 63 Respiratory Rate 20 Blood Pressure 148/63 H Pulse Oximetry 92 95 Oxygen Delivery BiPAP Oxygen Flow Rate Fraction of Inspired Oxygen 32 12/04/24 00:00 12/04/24 00:00 12/04/24 02:00 Temperature Pulse Rate 63 60 66 Respiratory Rate Blood Pressure 148/63 H Pulse Oximetry Oxygen Delivery Oxygen Flow Rate Fraction of Inspired Oxygen 12/04/24 02:00 12/04/24 02:00 12/04/24 02:00 Temperature Pulse Rate 66 66 66 Respiratory Rate Blood Pressure 142/69 H 142/69 H 142/69 H Pulse Oximetry Oxygen Delivery Oxygen Flow Rate Fraction of Inspired Oxygen 12/04/24 04:00 12/04/24 04:00 12/04/24 04:00 Temperature 36.7 C Pulse Rate 69 69 69 Respiratory Rate 20 Blood Pressure 141/80 H 141/80 H 141/80 H Pulse Oximetry 98 Oxygen Delivery Oxygen Flow Rate Fraction of Inspired Oxygen 12/04/24 04:00 12/04/24 04:00 12/04/24 05:24 Temperature Pulse Rate 65 66 Respiratory Rate Blood Pressure Pulse Oximetry 98 Oxygen Delivery High Flow Nasal Cannula Oxygen Flow Rate 5 Fraction of Inspired Oxygen 12/04/24 06:00 12/04/24 06:00 12/04/24 06:00 Temperature Pulse Rate 67 67 67 Respiratory Rate Blood Pressure 121/68 121/68 Pulse Oximetry Oxygen Delivery Oxygen Flow Rate Fraction of Inspired Oxygen 12/04/24 07:39 12/04/24 07:39 12/04/24 07:48 Temperature Pulse Rate 72 73 Respiratory Rate 16 16 Blood Pressure Pulse Oximetry 95 Oxygen Delivery High Flow Nasal Cannula Oxygen Flow Rate 5 Fraction of Inspired Oxygen 12/04/24 08:00 Temperature 36.8 C Pulse Rate 74 Respiratory Rate 16 Blood Pressure 138/91 H Pulse Oximetry 95 Oxygen Delivery Oxygen Flow Rate Fraction of Inspired Oxygen Intake/Output Intake/Output: Intake & Output 12/01/24 12/02/24 12/03/24/13/25 23:59 23:59 23:59 23:59 Intake Total 924 875.5 483.2 Output Total 5147 2606 950 Balance -776 -1174.5 -466.8 Meds/Results Medications: Active Medications Generic Name Dose Route Start Last Admin Trade Name Freq PRN Reason Stop Dose Admin Acetaminophen 650 mg 12/02/24 03:29 Acetaminophen 325 Mg Tablet PO Q4H PRN Mild Pain (1-3) or Fever Amiodarone HCl 200 mg 12/04/24 09:00 Amiodarone Hcl 200 Mg Tablet PO BID YODIT Amitriptyline HCl 10 mg 12/02/24 21:00 12/03/24 21:14 Amitriptyline Hcl 10 Mg Tablet PO 10 mg HS YODIT Administration Duloxetine HCl 40 mg 12/04/24 09:00 12/04/24 08:40 Duloxetine Hcl 20 Mg Capsule.Dr PO 40 mg DAILY YODIT Administration Escitalopram Oxalate 20 mg 12/02/24 09:00 12/04/24 08:40 Escitalopram Oxalate 10 Mg Tablet PO 20 mg DAILY YODIT Administration Ferrous Sulfate 325 mg 12/02/24 09:00 12/04/24 08:40 Ferrous Sulfate [address] PO 325 mg BID YODIT Administration Furosemide 20 mg 12/06/24 09:00 Furosemide 20 Mg Tablet PO BID YODIT Guaifenesin/Dextromethorphan 10 ml 12/02/24 03:29 Guaifenesin/Dextromethorphan 10 Ml Udc PO Q4H PRN Cough Heparin Sodium (Porcine) 5,000 units 12/02/24 06:00 12/04/24 05:24 Heparin Sodium 5,000 Units/Ml Vial SUB-Q 5,000 units Q8HR YODIT Administration Piperacillin/Tazobactam/Dextrose 3.375 gm in 50 mls @ 100 mls/hr 12/02/24 04:00 12/04/24 05:51 Zosyn 3.375 Gm/Ns 50 Ml IVPB Infused Q6HR YODIT Infusion Azithromycin 500 mg in 250 mls @ 250 mls/hr 12/02/24 13:00 12/03/24 13:29 Zithromax IVPB 250 mls/hr Q24H YODIT Administration Ipratropium [place] 0.5 mg 12/03/24 12:00 12/04/24 07:38 Ipratropium Br 0.02% Inh Soln 0.5 Mg/2.5 Ml Vial INHALATION 0.5 mg Q4HRT YODIT Administration Levalbuterol HCl 1.25 mg 12/04/24 12:00 Levalbuterol Neb 1.25 Mg/3 Ml INHALATION Q4HRT YODIT Melatonin 5 mg 12/02/24 03:29 Melatonin 5 Mg Tablet PO HS PRN Insomnia Melatonin 5 mg 12/02/24 11:06 Melatonin 5 Mg Tablet PO HS PRN Insomnia Metoprolol Tartrate 100 mg 12/04/24 09:00 Metoprolol Tartrate 50 Mg Tab PO Q12HR [facility] Miscellaneous Information 1 each 12/02/24 00:01 12/03/24 15:05 External Med History Indicated Pt Is Taking Duloxetine Dr 20mg Bid Versus Daily, Please C XX 01/01/25 00:00 Not Given CLARIFY YODIT Montelukast Sodium 10 mg 12/03/24 09:00 12/04/24 08:36 Montelukast Sodium 10 Mg Tablet PO 10 mg DAILY YODIT Administration Ondansetron HCl 4 mg 12/02/24 00:29 Ondansetron Inj 4 Mg/2 Ml Vial IV PUSH Q4H PRN Nausea Pantoprazole Sodium 40 mg 12/02/24 09:00 12/04/24 08:40 Pantoprazole 40 Mg Tablet PO 40 mg Q12HR YODIT Administration Potassium Chloride 20 meq 12/03/24 09:00 12/04/24 08:39 Potassium Chloride 20 Meq Packet (For Liquid) PO 20 meq DAILY YODIT Administration Prednisone 40 mg 12/03/24 08:00 12/04/24 08:40 Prednisone 20 Mg Tablet PO 40 mg DAILY@0800 YODIT Administration Quetiapine Fumarate 25 mg 12/02/24 21:00 12/03/24 21:15 Quetiapine Fumarate 25 Mg Tablet PO 25 mg HS YODIT Administration Ropinirole HCl 4 mg 12/02/24 21:00 12/03/24 21:13 Ropinirole Hcl 1 Mg Tablet PO 4 mg HS YODIT Administration Topiramate 200 mg 12/02/24 09:00 12/04/24 08:39 Topiramate 100 Mg Tablet PO 200 mg Q12HR YODIT Administration Trazodone HCl 50 mg 12/02/24 21:00 12/03/24 21:24 Trazodone Hcl 50 Mg Tablet PO Not Given HS [facility] Radiology Results: ITS Impressions Chest X-Ray 12/01/24 21:45 IMPRESSION: Cardiomegaly with cardiac decompensation and pulmonary edema. Pneumonitis in the lower lobes is not excluded Chest CTA 12/02/24 15:44 IMPRESSION: 1. No pulmonary embolism. 2. Bilateral basal atelectasis versus pneumonia. Clinical correlation advised. Venous Doppler Study 12/02/24 16:23 IMPRESSION: 1. Patent bilateral upper extremity veins. No evidence of venous thrombosis. Labs Labs: Laboratory Results - last 24 hr 12/03/24 12/04/24 12:09 03:50 WBC 10.2 H RBC 3.58 L Hgb 9.5 L Hct 32.3 L MCV 90.2 MCH 26.5 MCHC 29.4 L RDW 14.7 H Plt Count 258 MPV 9.5 Immature Gran % (Auto) 0.8 H Neut % (Auto) 62.7 Lymph % (Auto) 26.5 [place] % (Auto) 9.5 H Eos % (Auto) 0.3 Baso % (Auto) 0.2 Lymph # (Auto) 2.69 [place] # (Auto) 1.0 H Eos # (Auto) 0.0 Baso # (Auto) 0.0 Abs Immat Gran (auto) 0.08 H Absolute Neuts (auto) 6.4 Absolute Nucleated RBC 0.000 Band Neutrophils % Not Reportable Nucleated RBC % 0.0 Platelet Estimate Adequate Hypochromasia 1+ Anisocytosis 1+ Stomatocytes 1+ Schistocytes None seen Sodium 138 Potassium 3.7 Chloride 96 L Carbon Dioxide 35 H Anion Gap 7 BUN 35 H Creatinine 1.36 H Estim Creat Clear Calc 49 Estimated GFR 39 L Glucose 97 Calcium 9.2 Total Bilirubin 0.5 AST 33 ALT 26 Alkaline Phosphatase 84 Troponin I 0.025 Total Protein 7.0 Albumin 3.5
[2024-12-04] MEDS: AMIODARONE HCL 200 MG TABLET PO ×2 (10:24→18:03)
[2024-12-04] MEDS: METOPROLOL TARTRATE 50 MG TAB 100 MG PO ×2 (10:24→21:47)
--- NOTE | 2024-12-04 10:44 | P.PNCA_ITS ---
Progress Note: A&P Assessment and Plan (1) Atrial flutter with rapid ventricular response: Code(s): I48.92 - Unspecified atrial flutter Status: Acute Plan 64-year-old woman with atrial flutter/fibrillation who is not on anticoagulation due to history of rectus sheath hematomas for which vascular surgery had recommended stopping anticoagulation and hypertension initially presented with shortness of breath and admitted for COPD exacerbation now found to be in atrial fibrillation with rapid ventricular rates Atrial fibrillation with RVR -we discussed again given her bleeding history from rectus sheath hematoma, she has not a good candidate for anticoagulation which does place her at higher risk of stroke -we discussed necessity for left atrial appendage occlusion devices moving forward which will need to be discussed in outpatient setting -she clearly has clinical instability from rapid ventricular rate as evident yesterday and now that she is in sinus rhythm, would attempt to maintain sinus rhythm -will change her IV amiodarone to 200mg PO BID for 10 days to be transitioned to 200mg PO daily on 12/14/2024 -will change her lopressor to 100mg PO BID Chronic diastolic heart failure with right ventricular enlargement -appears clinically euvolemic and can hold lasix today and tomorrow with plans to resume her home dose 20mg PO BID on 12/06/2024 Acute on chronic hypoxic and hypercarbic respiratory failure -pulmonology following I have asked our office to reach out and set up an appointment with her to discuss LAAO Subjective Date/time seen: 12/04/24 10:44 Interval history: She is worried and anxious however has no significant shortness of breath or chest discomfort. Review of Systems Cardiovascular: Cardiovascular: Reports as per HPI Respiratory: Respiratory: Reports as per HPI Exam Const: General: comfortable HENMT: Mouth: Yes dry mucous membranes Eyes: EOM: EOMs intact bilaterally Neck: Neck: no JVD Resp: Effort & Inspection: normal respiratory effort Auscultation: crackles and rhonchi Cardio: Rate: regular rate Rhythm: regular rhythm GI: GI Palp: Yes Soft to palpation Neuro: Speech: normal speech Extrem: General: no pedal edema Objective Data Vital Signs Vital Signs: Vital Signs - 24 hr 12/03/24 11:11 12/03/24 11:31 12/03/24 12:00 Temperature 37.1 C Pulse Rate 163 H 128 H 149 H Respiratory Rate 20 Blood Pressure 103/77 117/94 H Pulse Oximetry 98 Oxygen Delivery Oxygen Flow Rate Fraction of Inspired Oxygen 12/03/24 12:00 12/03/24 12:00 12/03/24 12:00 Temperature Pulse Rate 149 H 151 H Respiratory Rate Blood Pressure 117/94 H Pulse Oximetry 97 Oxygen Delivery High Flow Nasal Cannula Oxygen Flow Rate 5 Fraction of Inspired Oxygen 12/03/24 12:18 12/03/24 12:19 12/03/24 12:19 Temperature Pulse Rate 133 H 135 H 135 H Respiratory Rate Blood Pressure 112/66 112/66 112/66 Pulse Oximetry Oxygen Delivery Oxygen Flow Rate Fraction of Inspired Oxygen 12/03/24 13:24 12/03/24 14:00 12/03/24 14:00 Temperature 36.9 C Pulse Rate 136 H 138 H 138 H Respiratory Rate 20 Blood Pressure 118/73 118/73 Pulse Oximetry 95 Oxygen Delivery Oxygen Flow Rate Fraction of Inspired Oxygen 12/03/24 14:00 12/03/24 16:00 12/03/24 16:00 Temperature 36.7 C Pulse Rate 145 H 75 75 Respiratory Rate 20 Blood Pressure 129/81 129/81 Pulse Oximetry 97 Oxygen Delivery Oxygen Flow Rate Fraction of Inspired Oxygen 12/03/24 16:00 12/03/24 16:00 12/03/24 17:14 Temperature Pulse Rate 78 76 Respiratory Rate Blood Pressure Pulse Oximetry 96 Oxygen Delivery High Flow Nasal Cannula Oxygen Flow Rate 5 Fraction of Inspired Oxygen 12/03/24 18:00 12/03/24 18:00 12/03/24 18:00 Temperature 36.7 C Pulse Rate 77 77 77 Respiratory Rate 23 H Blood Pressure 140/61 140/61 Pulse Oximetry 99 Oxygen Delivery Oxygen Flow Rate Fraction of Inspired Oxygen 12/03/24 18:44 12/03/24 20:00 12/03/24 20:00 Temperature 36.8 C Pulse Rate 77 69 Respiratory Rate 20 Blood Pressure 140/61 127/57 L Pulse Oximetry 98 97 Oxygen Delivery High Flow Nasal Cannula Oxygen Flow Rate 5 Fraction of Inspired Oxygen 12/03/24 20:00 12/03/24 20:00 12/03/24 20:17 Temperature Pulse Rate 69 68 Respiratory Rate Blood Pressure 127/57 L Pulse Oximetry 97 Oxygen Delivery High Flow Nasal Cannula Oxygen Flow Rate 5 Fraction of Inspired Oxygen 12/03/24 22:00 12/03/24 22:00 12/03/24 22:00 Temperature Pulse Rate 64 64 64 Respiratory Rate Blood Pressure 125/51 L 125/51 L Pulse Oximetry Oxygen Delivery Oxygen Flow Rate Fraction of Inspired Oxygen 12/03/24 22:00 12/03/24 23:16 12/03/24 23:25 Temperature Pulse Rate 64 67 Respiratory Rate 17 Blood Pressure Pulse Oximetry 98 92 Oxygen Delivery BiPAP BiPAP Oxygen Flow Rate Fraction of Inspired Oxygen 32 12/04/24 00:00 12/04/24 00:00 12/04/24 00:00 Temperature 36.6 C Pulse Rate 63 63 60 Respiratory Rate 20 Blood Pressure 148/63 H 148/63 H Pulse Oximetry 95 Oxygen Delivery Oxygen Flow Rate Fraction of Inspired Oxygen 12/04/24 02:00 12/04/24 02:00 12/04/24 02:00 Temperature Pulse Rate 66 66 66 Respiratory Rate Blood Pressure 142/69 H 142/69 H Pulse Oximetry Oxygen Delivery Oxygen Flow Rate Fraction of Inspired Oxygen 12/04/24 02:00 12/04/24 04:00 12/04/24 04:00 Temperature Pulse Rate 66 69 69 Respiratory Rate Blood Pressure 142/69 H 141/80 H 141/80 H Pulse Oximetry Oxygen Delivery Oxygen Flow Rate Fraction of Inspired Oxygen 12/04/24 04:00 12/04/24 04:00 12/04/24 04:00 Temperature 36.7 C Pulse Rate 69 65 Respiratory Rate 20 Blood Pressure 141/80 H Pulse Oximetry 98 98 Oxygen Delivery High Flow Nasal Cannula Oxygen Flow Rate 5 Fraction of Inspired Oxygen 12/04/24 05:24 12/04/24 06:00 12/04/24 06:00 Temperature Pulse Rate 66 67 67 Respiratory Rate Blood Pressure 121/68 Pulse Oximetry Oxygen Delivery Oxygen Flow Rate Fraction of Inspired Oxygen 12/04/24 06:00 12/04/24 07:39 12/04/24 07:39 Temperature Pulse Rate 67 72 Respiratory Rate 16 Blood Pressure 121/68 Pulse Oximetry 95 Oxygen Delivery High Flow Nasal Cannula Oxygen Flow Rate 5 Fraction of Inspired Oxygen 12/04/24 07:48 12/04/24 08:00 12/04/24 08:00 Temperature 36.8 C Pulse Rate 73 74 74 Respiratory Rate 16 16 Blood Pressure 138/91 H 138/91 H Pulse Oximetry 95 Oxygen Delivery Oxygen Flow Rate Fraction of Inspired Oxygen 12/04/24 10:00 12/04/24 10:00 12/04/24 10:23 Temperature Pulse Rate 84 84 83 Respiratory Rate Blood Pressure 125/75 125/75 125/75 Pulse Oximetry Oxygen Delivery Oxygen Flow Rate Fraction of Inspired Oxygen 12/04/24 10:24 12/04/24 10:24 Temperature Pulse Rate 74 74 Respiratory Rate Blood Pressure Pulse Oximetry Oxygen Delivery Oxygen Flow Rate Fraction of Inspired Oxygen Intake/Output Intake/Output: Intake & Output 12/01/24 12/02/24 12/03/24 12/04/24 23:59 23:59 23:59 23:59 Intake Total 924 875.5 802.2 Output Total 1700 2050 950 Balance -776 -1174.5 -147.8 Meds/Results Medications: Active Medications Generic Name Dose Route Start Last Admin Trade Name Freq PRN Reason Stop Dose Admin Acetaminophen 650 mg 12/02/24 03:29 Acetaminophen 325 Mg Tablet PO Q4H PRN Mild Pain (1-3) or Fever Amiodarone HCl 200 mg 12/04/24 09:00 12/04/24 10:24 Amiodarone Hcl 200 Mg Tablet PO 200 mg BID YODIT Administration Amitriptyline HCl 10 mg 12/02/24 21:00 12/03/24 21:14 Amitriptyline Hcl 10 Mg Tablet PO 10 mg HS YODIT Administration Duloxetine HCl 40 mg 12/04/24 09:00 12/04/24 08:40 Duloxetine Hcl 20 Mg Capsule.Dr PO 40 mg DAILY YODIT Administration Escitalopram Oxalate 20 mg 12/02/24 09:00 12/04/24 08:40 Escitalopram Oxalate 10 Mg Tablet PO 20 mg DAILY YODIT Administration Ferrous Sulfate 325 mg 12/02/24 09:00 12/04/24 08:40 Ferrous Sulfate [address] PO 325 mg BID YODIT Administration Furosemide 20 mg 12/06/24 09:00 Furosemide 20 Mg Tablet PO BID YODIT Guaifenesin/Dextromethorphan 10 ml 12/02/24 03:29 Guaifenesin/Dextromethorphan 10 Ml Udc PO Q4H PRN Cough Heparin Sodium (Porcine) 5,000 units 12/02/24 06:00 12/04/24 05:24 Heparin Sodium 5,000 Units/Ml Vial SUB-Q 5,000 units Q8HR YODIT Administration Piperacillin/Tazobactam/Dextrose 3.375 gm in 50 mls @ 100 mls/hr 12/02/24 04:00 12/04/24 05:51 Zosyn 3.375 Gm/Ns 50 Ml IVPB Infused Q6HR YODIT Infusion Azithromycin 500 mg in 250 mls @ 250 mls/hr 12/02/24 13:00 12/03/24 13:29 Zithromax IVPB 250 mls/hr Q24H YODIT Administration Ipratropium [place] 0.5 mg 12/03/24 12:00 12/04/24 07:38 Ipratropium Br 0.02% Inh Soln 0.5 Mg/2.5 Ml Vial INHALATION 0.5 mg Q4HRT YODIT Administration Levalbuterol HCl 1.25 mg 12/04/24 12:00 Levalbuterol Neb 1.25 Mg/3 Ml INHALATION Q4HRT YODIT Melatonin 5 mg 12/02/24 03:29 Melatonin 5 Mg Tablet PO HS PRN Insomnia Melatonin 5 mg 12/02/24 11:06 Melatonin 5 Mg Tablet PO HS PRN Insomnia Metoprolol Tartrate 100 mg 12/04/24 09:00 12/04/24 10:24 Metoprolol Tartrate 50 Mg Tab PO 100 mg Q12HR YODIT Administration Miscellaneous Information 1 each 12/02/24 00:01 12/03/24 15:05 External Med History Indicated Pt Is Taking Duloxetine Dr 20mg Bid Versus Daily, Please C XX 01/01/25 00:00 Not Given CLARIFY YODIT Montelukast Sodium 10 mg 12/03/24 09:00 12/04/24 08:36 Montelukast Sodium 10 Mg Tablet PO 10 mg DAILY YODIT Administration Ondansetron HCl 4 mg 12/02/24 00:29 Ondansetron Inj 4 Mg/2 Ml Vial IV PUSH Q4H PRN Nausea Pantoprazole Sodium 40 mg 12/02/24 09:00 12/04/24 08:40 Pantoprazole 40 Mg Tablet PO 40 mg Q12HR YODIT Administration Potassium Chloride 20 meq 12/03/24 09:00 12/04/24 08:39 Potassium Chloride 20 Meq Packet (For Liquid) PO 20 meq DAILY YODIT Administration Prednisone 40 mg 12/03/24 08:00 12/04/24 08:40 Prednisone 20 Mg Tablet PO 40 mg DAILY@0800 YODIT Administration Quetiapine Fumarate 25 mg 12/02/24 21:00 12/03/24 21:15 Quetiapine Fumarate 25 Mg Tablet PO 25 mg HS YODIT Administration Ropinirole HCl 4 mg 12/02/24 21:00 12/03/24 21:13 Ropinirole Hcl 1 Mg Tablet PO 4 mg HS YODIT Administration Topiramate 200 mg 12/02/24 09:00 12/04/24 08:39 Topiramate 100 Mg Tablet PO 200 mg Q12HR YODIT Administration Trazodone HCl 50 mg 12/02/24 21:00 12/03/24 21:24 Trazodone Hcl 50 Mg Tablet PO Not Given HS YODIT Radiology Results: ITS Impressions Chest X-Ray 12/01/24 21:45 IMPRESSION: Cardiomegaly with cardiac decompensation and pulmonary edema. Pneumonitis in the lower lobes is not excluded Chest CTA 12/02/24 15:44 IMPRESSION: 1. No pulmonary embolism. 2. Bilateral basal atelectasis versus pneumonia. Clinical correlation advised. Venous Doppler Study 12/02/24 16:23 IMPRESSION: 1. Patent bilateral upper extremity veins. No evidence of venous thrombosis. Labs Labs: Laboratory Results - last 24 hr 12/03/24 12/04/24 12:09 03:50 WBC 10.2 H RBC 3.58 L Hgb 9.5 L Hct 32.3 L MCV 90.2 MCH 26.5 MCHC 29.4 L RDW 14.7 H Plt Count 258 MPV 9.5 Immature Gran % (Auto) 0.8 H Neut % (Auto) 62.7 Lymph % (Auto) 26.5 [place] % (Auto) 9.5 H Eos % (Auto) 0.3 Baso % (Auto) 0.2 Lymph # (Auto) 2.69 [place] # (Auto) 1.0 H Eos # (Auto) 0.0 Baso # (Auto) 0.0 Abs Immat Gran (auto) 0.08 H Absolute Neuts (auto) 6.4 Absolute Nucleated RBC 0.000 Band Neutrophils % Not Reportable Nucleated RBC % 0.0 Platelet Estimate Adequate Hypochromasia 1+ Anisocytosis 1+ Stomatocytes 1+ Schistocytes None seen Sodium 138 Potassium 3.7 Chloride 96 L Carbon Dioxide 35 H Anion Gap 7 BUN 35 H Creatinine 1.36 H Estim Creat Clear Calc 49 Estimated GFR 39 L Glucose 97 Calcium 9.2 Total Bilirubin 0.5 AST 33 ALT 26 Alkaline Phosphatase 84 Troponin I 0.025 Total Protein 7.0 Albumin 3.5
[2024-12-04] MEDS: LEVALBUTEROL NEB 1.25 MG/3 ML INHALATION ×3 (11:13→19:56)
[2024-12-04] MEDS: AZITHROMYCIN 500 MG/NS 250 ML 500 MG/250 ML BAG 250 MG IVPB (12:26)
[2024-12-04] MEDS: AMITRIPTYLINE HCL 10 MG TABLET PO (21:47)
[2024-12-04] MEDS: traZODone HCL 50 MG TABLET PO (21:48)
[2024-12-04] MEDS: rOPINIRole HCL 1 MG TABLET 4 MG PO (21:48)
[2024-12-04] MEDS: QUEtiapine FUMARATE 25 MG TABLET PO (21:48)
[2024-12-04] MEDS: MELATONIN 5 MG TABLET PO (21:48)
[2024-12-05] VITALS (30 sets, daily range): BP systolic 117–144; BP diastolic 51–66; PULSE 58–74; RESP 15–20; TEMP 36.6–37.2; O2SAT 91–98
[2024-12-05] MEDS: HEPARIN SODIUM 5,000 UNITS/ML VIAL 5000 UNITS SUB-Q ×4 (00:13→21:39)
[2024-12-05] MEDS: TOPIRAMATE 100 MG TABLET 200 MG PO ×3 (00:13→21:39)
[2024-12-05] MEDS: PIPERACILLN/TAZ 3.375GM/NS50ML 3.375 GM/50 ML BAG IVPB ×5 (01:05→23:01)
[2024-12-05] MEDS: LEVALBUTEROL NEB 1.25 MG/3 ML INHALATION ×7 (01:12→23:13)
[2024-12-05] MEDS: IPRATROPIUM BR 0.02% INH SOLN 0.5 MG/2.5 ML VIAL INHALATION ×7 (01:12→23:13)
[2024-12-05 04:11] LABS: Basophils Percent Auto 0.1 % (0.2-1.2); Eosinophils Absolute Auto 0.1 K/mm3 (0-0.3); Eosinophils Percent Auto 0.8 % (0-4.4); Hematocrit 32.8 % (37.0-47.0); Hemoglobin 9.6 g/dL (12.0-15.0); Immature Granulocyte Absolute 0.06 K/mm3 (0.00-0.031); Immature Granulocyte Percent A 0.7 % (0-0.5); Lymphocytes Percent Auto 33.7 % (18.3-44.2); Mean Corpuscular HGB Conc 29.3 g/dl (32-36); Mean Corpuscular Hemoglobin 26.2 pg (26-34); Mean Corpuscular Volume 89.6 fl (80-100); Mean Platelet Volume 9.5 fl (7.4-10.4); Monocytes Absolute Auto 0.9 K/mm3 (0.1-0.6); Monocytes Percent Auto 9.4 % (2.6-8.5); Neutrophils Absolute Auto 5.1 K/mm3 (1.3-6.7); Neutrophils Percent Auto 55.3 % (45.5-73.1); Platelet Count Result 244 k/mm3 (150-375); Red Blood Count 3.66 M/mm3 (4.2-5.4); Red Cell Distribution Width 14.7 % (11.5-14.5); White Blood Count 9.2 K/mm3 (4.5-10.0)
[2024-12-05 04:22] LABS: Alanine Aminotransferase 50 U/L (6-35); Albumin Level 3.5 g/dL (3.5-5.1); Alkaline Phosphatase 81 U/L (38-126); Anion Gap 8 mmol/L (4-12); Aspartate Amino Transferase 35 U/L (14-36); Bilirubin,Total 0.5 mg/dL (0.2-1.3); Blood Urea Nitrogen 31 mg/dL (7-17); Calcium 8.7 mg/dL (8.4-10.2); Carbon Dioxide 32 mmol/L (22-30); Chloride 96 mmol/L (98-107); Estimated CRCL calculation 44 ml/min; Estimated Glomerular Filt Rate 34; Glucose 98 mg/dL (65-110); Potassium 3.5 mmol/L (3.4-5.0); Sodium 136 mmol/L (137-145)
[2024-12-05 04:34] LABS: Anisocytosis 1+; Microcytosis 1+ (NORMAL); Platelet Estimate Adequate (Adequate); Stomatocytes 1+
[2024-12-05 04:35] LABS: Schistocytes None Seen
[2024-12-05 08:12] LABS: NT Pro B Type Natriuretic Pept 832 pg/mL (19.9-100)
--- NOTE | 2024-12-05 08:41 | P.PNPL_ITS ---
Progress Note: A&P Assessment and Plan (1) Chronic obstructive pulmonary disease: Code(s): J44.9 - Chronic obstructive pulmonary disease, unspecified Status: Chronic Assessment and Plan: Regarding her COPD the patient has been on oxygen for the last 5 years. I have no PFTs. She is using 5 L at rest with home saturations 92-96%. First CT scan in our system is from 08/27/2022 and this shows mild apical predominant centrilobular emphysema. Repeat CT angiogram of the chest on 12/02/2024 demonstrates mild apical predominant centrilobular emphysema. She is using 6 L with activity but even with walking room to room her saturations go into the mid 70s. Patient is maintained on trelegy inhaler but she does not use a because of the taste. Patient takes montelukast 10 and albuterol p.r.n.. Patient tells me she wheezes every day when she takes rescue albuterol at home it relieves her wheezing for 1-2 minutes. Patient follows with a reproductive endocrinologist in [place] Dr. Zamorano. Patient has chronic hypercarbic respiratory failure from her COPD with a blood gas of 7.34/65/103 and a serum bicarbonate greater than 40. She would benefit from a noninvasive ventilation. Patient was placed on BiPAP but could not tolerate these settings because the flow in pressures were too high. I will initiate the process for a home noninvasive ventilator with the AVAPS mode through her [employer] for oxygen which is [employer]. 12/02/24: patient with a history of COPD, worsening cough, shortness of breath and hypoxemia. She says she has had no change in her phlegm production. No wheezing currently. Plan: will treat the patient for COPD exacerbation and will continue Solu- Medrol 60 Q 8. Will change to prednisone 40 mg p.o. q.day on 12/03/2024. Continue DuoNebs q.6 hours. Continue montelukast 10. Patient has a history of UTI and was started on ciprofloxacin on 12/01/2024. Patient currently on Zosyn. Will add azithromycin. Goal saturation 90-94%. Adjust study oxygen accordingly. I will send respiratory pathogen panel, mycoplasma IgM antibody, urine pneumococcal, urine Legionella studies looking for infectious etiology. I will send alpha 1 anti trypsin genotype and level looking for genetic predisposition for her COPD. Patient has a positive D-dimer and I will check a CT angiogram of the chest, she has swelling of the lower extremities and upper extremities bilaterally and I will get upper and lower extremity Dopplers. Echocardiogram has been ordered. Later in the day patient had a CT angiogram of the chest which was negative for PE, mild apical predominant centrilobular emphysema, posterior lower lobe atelectasis versus infiltrate right greater than left. No pleural effusions. Upper and lower extremity Dopplers were negative for DVT. Echocardiogram with LVEF 60 65%, RV was dilated with normal systolic function. Left atrium normal, right atrium normal, RVSP 27 12/03/2024: Patient told me she slept with the noninvasive ventilator in the AVAPS last night and did well. She said she slept well and was well rested. Currently she is in AFib RVR on 5 of Dilt drip but her heart rate remains 160. She says she has no shortness of breath but just feels bad. Her saturations on the 5 L are 94%. She is in no respiratory distress. She had a fever last night. White blood cell count 12.1, creatinine 1.29, BNP 972. Procalcitonin 0.3. She received 1 dose of Lasix yesterday. Plan: she has no wheezing at this time. Continue prednisone 40 mg p.o. q.day, day 2 steroids. I will discontinue all beta agonists as she has a tachyarrhythmia. I will increase her ipratropium nebulizers to q.[address] scan shows small posterior lower lobe atelectasis versus infiltrate, she had a fever, procalcitonin is low and she has a leukocytosis. She is on Zosyn and azithromycin for possible pneumonia. I am not convinced this is pneumonia but will continue treatment for now while other etiologies of her fever and leukocytosis are being worked up. 12/04/24: Patient feels better than she did yesterday. Overall she tells me she is breathing normal. She denies cough, phlegm or hemoptysis. She is afebrile. White blood cell count 10.2, creatinine 1.36. She diuresed 1.1 L yesterday and cumulative she has diuresed 2.4 L. Her weight today is 121.7 with an admission weight of 121.8. She is wheezing on exam. On amiodarone drip heart rate over the last 12 hours 60 to 74. Plan: Patient has wheezing on exam is but denies shortness of breath. Oxygenation continues to improve. She is in no respiratory distress. I will continue prednisone 40 mg p.o. q.day, day 3 of steroids. I will continue ipratropium 0.5 mg nebulized q.4 hours and add levalbuterol 1.25 mg nebulized Q 4 hours. currently patient is on Zosyn and azithromycin for possible pneumonia, both day 3. Will continue. AFib RVR, and fluid overload managed per hospitalist and light equipment operator teams. 12/05/24: Patient continues to improve. Patient tells me she is breathing back at her normal. She denies cough, phlegm, hemoptysis. Patient slept well with a fullface mask in the hospital noninvasive ventilator. Currently she is on 3 L nasal cannula saturations 92%. White blood cell count 9.2, creatinine 1.51. she diuresed 177 mL yesterday and cumulative diuresis 3.1 L since admission. Her weight today is 120.1 kg. BNP has decreased from 972 on 12/03/2024 to a value of 832 today. Chest x-ray today with cardiomegaly, mild perihilar congestion, discoid atelectasis at the bases and no pleural effusion. plan: Patient is wheezing but tells me she wheezes every day. Continue prednisone 40 mg p.o. q.day, day 4 steroids. Continue ipratropium and levalbuterol nebulizers q.4 hours. Continue Zosyn and azithromycin both day 4. AFib with RVR, fluid overload managed by hospitalist and light equipment operator team. Creatinine increased to 1.51 will consider decreasing diuretics. Discussed with Dr. Farfan, will follow with you. (2) Chronic hypercapnic respiratory failure: Code(s): J96.12 - Chronic respiratory failure with hypercapnia Status: Acute Assessment and Plan: Patient has chronic hypercarbic respiratory failure from her COPD with a blood gas of 7.34/65/103 and a serum bicarbonate greater than 40. She would benefit from a noninvasive ventilation. Patient was placed on BiPAP but could not tolerate these settings because the flow in pressures were too high. I will initiate the process for a home noninvasive ventilator with the AVAPS mode through her [employer] for oxygen which is [employer]. 12/02/2024: When I enter the room the patient was on BiPAP in no respiratory distress. Patient told me the machine and the breathing was uncomfortable and that she would not be able to sleep with this. I changed her to noninvasive ventilator with the AVAS mode an adjusted settings to comfort resulting in a rate of 14, tidal volume 500, EPAP 5, minimal inspiratory pressure 6, maximal inspiratory pressure 25, inspiratory time 1.0, rise of 1 which is are fast this and it and 40% FiO2. She was able to tolerate these settings. She felt she could come off BiPAP and I placed her on 5 L nasal cannula and after 12 minutes her saturations were 92%. Plan: Patient can use noninvasive ventilation with the AVAPS mode p.r.n. during the day but should wear this at night. I will perform an overnight oximetry and ABG prior to removal on these settings. Later in the day initiated home noninvasive ventilation with [employer]. 12/03/24: Patient slept with the noninvasive ventilator last night and said she did well and was able to sleep. On the noninvasive ventilator with the AVAPS settings as above and 40% FiO2 the patient had an overnight oximetry with recording duration of 7 hours and 45 minutes. Average saturation 95%. Low saturation 89%. Time with saturation less than or equal to 88% was 0 minutes. Oxygen desaturation index 2.2. Patient an ABG prior to removal with a pH of 7.43/58/101. Plan: Current noninvasive ventilation with the AVAPS mode rate of 14, tidal volume 500, EPAP 5, minimal inspiratory pressure 6, maximal inspiratory pressure 25, inspiratory time 1.0, rise of 1 which is are fast this and it and 40% FiO2, provide adequate ventilation and oxygenation. I will place her on AVAPS mode with 32% FiO2 tonight and repeat an overnight oximetry. 12/04/24: Patient wore the noninvasive ventilator last night with 32% FiO2. She had an overnight oximetry on these settings with recording duration of 7 hours and 2 minutes, average saturation 96%. Low saturation 85%. Time with saturation less than or equal to 88% was 3 minutes, oxygen desaturation index 3.3. Plan: current noninvasive ventilation with the AVAPS settings above and 32% FiO2 provide adequate ventilation and oxygenation and will continue. 12/05/24: Patient continues to improve. Patient tells me she is breathing back at her normal. She denies cough, phlegm, hemoptysis. Patient slept well with a fullface mask in the hospital noninvasive ventilator. Currently she is on 3 L nasal cannula saturations 92%. Plan: Discussed with clinical training coordinator and waiting for home noninvasive ventilation through [facility]. Subjective Date/time seen: 12/05/24 08:41 Interval history: 12/02/2024: This is a new pulmonary consult for acute on chronic hypercarbic and hypoxemic respiratory failure. 64-year-old with a history of hypertension, restless legs syndrome, anxiety and COPD With chronic hypoxemic respiratory failure on 5 L at rest and 6 L with activity. Regarding her COPD the patient has been on oxygen for the last 5 years. I have no PFTs. She is using 5 L at rest with home saturations 92-96%. For CT scan in our system is from 08/27/2022 and this shows mild apical predominant centrilobular emphysema. She is using 6 L with activity but even with walking room to room her saturations go into the mid 70s. Patient is maintained on trelegy inhaler but she does not use a because of the taste. Patient takes montelukast 10 and albuterol p.r.n.. Patient tells me she has wheezing every day when she takes rescue albuterol it relieves the reason wheezing for approximately 1-2 minutes. Patient follows with a reproductive endocrinologist in [place] Dr. Zamorano. Patient is currently on BiPAP and family is in the room who aids with history. For the last 2-3 weeks patient has had worsening shortness of breath, wheezing, cough with no phlegm production, swelling of the legs and abdomen. She was diagnosed with the UTI on 12/01/2024 and started on ciprofloxacin. Later the night, She had worsening hypoxemia and yesterday she could not keep her saturations up and presented to the emergency room. in the emergency room her blood pressure was 142/106, heart rate 115, respirations 22 and on 15 L non-r ebreather her saturation were 98%. Patient had white blood cell count of 14.8 was 0.6% eosinophils equals 89 per micro L, creatinine 1.16, serum bicarbonate greater than 40, COVID influenza and RSV RT PCR study negative. ABG on 10 L non-rebreather was 7.34/65/103. Procalcitonin was 0.4. BNP was 758. Chest x-ray showed pulmonary congestion with left greater than right interstitial infiltrates. Patient was treated for COPD exacerbation, pneumonia, fluid overload. 12/02/2024: When I enter the room the patient was on BiPAP in no respiratory distress. She was awake communicative and following simple commands. The patient told me she was breathing back to her normal. She complained of some dizziness but denied fever, chills, rigors, wheezing, phlegm production or hemoptysis. She said her coughing is slightly increased compared to her baseline. Patient was on BiPAP rate of 22, pressures 16/8 with tidal volumes 880 inspiratory time 1.0 with a blood gas of 7.40/52/43. patient told me the machine and the breathing was uncomfortable and that she would not be able to sleep with this. I changed her to noninvasive ventilator with the AVAS mode an adjusted settings to comfort resulting in a rate of 14, tidal volume 500, EPAP 5, minimal inspiratory pressure 6, maximal inspiratory pressure 25, inspiratory time 1.0, rise of 1 which is are fast this and it and 40% FiO2. She was able to tolerate these settings. She felt she could come off of the BiPAP and I placed her on 5 L nasal cannula and after 12 minutes her saturations were 92%. Later in the day patient had a CT angiogram of the chest which was negative for PE, mild apical predominant centrilobular emphysema posterior lower lobe atelectasis versus infiltrate right greater than left. No pleural effusions. Upper and lower extremity Dopplers were negative for DVT. Echocardiogram with LVEF 60 65%, RV was dilated with normal systolic function. Left atrium normal, right atrium normal, RVSP 27 12/03/2024: Patient told me she slept with the noninvasive ventilator in the AVAPS last night and did well. She said she slept well and was well rested. Currently she is in AFib RVR on 5 of Dilt drip but her heart rate remains 160. She says she has no shortness of breath but just feels bad. Her saturations on the 5 L are 94%. She is in no respiratory distress. She had a fever last night. White blood cell count 12.1, creatinine 1.29, BNP 972. Procalcitonin 0.3. She received 1 dose of Lasix yesterday. Albuterol and levalbuterol treatments discontinued. given metoprolol and diltiazem for AFib RVR which were unsuccessful and started on amiodarone drip yesterday. On the noninvasive ventilator with the AVAPS settings as above and 40% FiO2 the patient had an overnight oximetry with recording duration of 7 hours and 45 minutes. Average saturation 95%. Low saturation 89%. Time with saturation less than or equal to 88% was 0 minutes. Oxygen desaturation index 2.2. Patient an ABG prior to removal with a pH of 7.43/58/101. 12/04/24: patient feels better than she did yesterday. Overall she tells me she is breathing normal. She denies cough, phlegm or hemoptysis. She is afebrile. White blood cell count 10.2, creatinine 1.36. When I enter the room the patient was on 5 L nasal cannula saturations 97%. I decreased her to 3 L nasal cannula saturations were 92%. She diuresed 1.1 L yesterday and cumulative she has diuresed 2.4 L. Her weight today is 121.7 with an admission weight of 121.8. Patient wore the noninvasive ventilator last night with 32% FiO2. She had an overnight oximetry on these settings with recording duration of 7 hours and 2 minutes, average saturation 96%. Low saturation 85%. Time with saturation less than or equal to 88% was 3 minutes, oxygen desaturation index 3.3. She is wheezing on exam. On amiodarone drip heart rate over the last 12 hours 60 to 74. 4/: Patient continues to improve. Patient tells me she is breathing back at her normal. She denies cough, phlegm, hemoptysis. Patient slept well with a fullface mask in the hospital noninvasive ventilator. Currently she is on 3 L nasal cannula saturations 92%. White blood cell count 9.2, creatinine 1.51. she diuresed 177 mL yesterday and cumulative diuresis 3.1 L since admission. Her weight today is 120.1 kg. BNP has decreased from 972 on 12/03/2024 to a value of 832 today. Chest x-ray today with cardiomegaly, mild perihilar congestion, discoid atelectasis at the bases and no pleural effusion. DATA 12/17/2023: CT Scan of the Chest without Contrast: Clinical Indication: Lung cancer screening, nicotine dependence Technique: Contiguous sections were acquired throughout the chest without intravenous contrast. Dose reduction technique was used on this scan by utilizing automated exposure control and iterative reconstruction technique. The dose-length product (DLP) was 341.26 mGy-cm. COMPARISON: 04/06/2023 Findings: Stable enlarged left thyroid lobe. There is no evidence of any significant mediastinal, hilar or axillary lymphadenopathy. Atherosclerotic calcifications of the aorta are present. There is no evidence of pleural or pericardial effusion. There is irregular airspace opacity in the posterior right lower lobe, improved from prior exam, likely representing postinflammatory change, as there is a previous more extensive area of consolidation in this location. Mild emphysema. Images through the upper abdomen reveal no abnormalities. Impression: Lung RADS 2: Benign appearance. 12 month follow-up screening CT advised. 09/10/2022: Echo Summary 1. Technically difficult study with limited views. Regional wall motion assessment limited due to poor endomyocardial border definition despite definity contrast enhancement. 2. Left ventricular chamber dimension is normal. 3. Left ventricular systolic function is normal, estimated at 65-70%. 4. There is mildly increased left ventricular wall thickness. 5. Right ventricular chamber dimension is normal. 6. Right ventricular systolic function is moderately reduced. TAPSE 1.3. 7. There is trace tricuspid valve regurgitation. 8. Mild pulmonary hypertension, estimated pulmonary arterial systolic pressure is 37 mmHg. 9. Normal inferior vena cava with <50% collapse upon inspiration consistent with elevated right atrial pressure, 10 mmHg. 08/28/2022: Summary 1. Left ventricular chamber dimension is normal. 2. Left ventricular systolic function is normal, estimated at 60-65%. 3. The left ventricular diastolic function is grade I diastolic dysfunction. 4. Right ventricular chamber dimension is moderately enlarged. 5. Right ventricular systolic function is normal. 6. There is moderate tricuspid valve regurgitation, which may be underestimated due to the eccentricity of the jet. 7. Dilated inferior vena cava with no collapse upon inspiration consistent with elevated right atrial pressure, 15 mmHg. 8. Pulmonary hypertension with an estimated PASP of 59mmHg. Right Ventricle Right ventricular chamber dimension is moderately enlarged. Right ventricular systolic function is normal. Right Atria Right atrial chamber dimension is normal. Atrial Septum Intact interatrial septum visualized by color flow imaging. 08/27/2022: EXAMINATION: CT chest high resolution wo co DATE: 08/27/2022 16:07 INDICATION: respiratory failure TECHNIQUE: Computed tomography (CT) of the chest was performed without intravenous contrast. Automated exposure control and iterative reconstruction technique were employed. The dose-length product was 818.52 mGy-cm. COMPARISON: X-ray chest 08/27/2022 and CTA chest 07/21/2018. FINDINGS: CHEST: Endotracheal tube terminating 2.5 cm above the maria esther. Thoracic aorta: No significant dilation. Moderate arch calcification. Lung parenchyma and airways: Diffuse tree-in-bud opacities most evident in the right lung. Scattered centrilobular nodular opacities measuring up to 11 mm in the right upper lobe. Mild interlobular septal thickening. Bibasilar dependent opacities likely representing atelectasis. Mild emphysematous change. Thoracic inlet, axillae and chest wall: No thyroid or soft tissue mass. No axillary lymphadenopathy. Mediastinum: Mediastinal lymphadenopathy. Dilated central pulmonary arteries as can be seen with pulmonary arterial hypertension. Heart and pericardium: Normal heart size. Aortic valve calcification. No pericardial effusion. Coronary artery calcifications: Mild. Pleura: Trace bilateral pleural fluid. Upper abdomen: No significant finding. Thoracic bones: No acute osseous finding in the chest. IMPRESSION: 1. Tree-in-bud opacities as can be seen with atypical infection (including but not limited to: MAC, TB, fungal), ABPA, airways disease, and less likely aspiration. 2. Nodular opacity in right upper lobe should be followed after the appropriate therapy and cessation of symptoms to ensure resolution. 3. Mediastinal lymphadenopathy. 4. Trace bilateral pleural effusions. 5. Mild interstitial edema. Review of Systems Constitutional: Constitutional: Reports no additional constitutional complaints Eyes: Eyes: Reports no additional eye complaints ENT: Reports system reviewed and no additional complaints, except as docume nted Cardiovascular: Cardiovascular: Reports no additional cardiovascular complaints Respiratory: Respiratory: Reports no additional respiratory complaints Gastrointestinal: Gastrointestinal: Reports no additional gastrointestinal complaints Musculoskeletal: Musculoskeletal: Reports no additional musculoskeletal complaints Neurologic: Reports system reviewed and no additional complaints, except as documented Psychiatric: Psychiatric: Reports no additional psychiatric complaints Endocrine: Endocrine: Reports no additional endocrine complaints Hematologic/Lymphatic: Hematologic/Lymphatic: Reports no additional hematologic/lymphatic complaints Allergic/Immunologic: Allergic/Immunologic: Reports no additional allergic/immunologic complaints Exam Const: General: cooperative, healthy appearing and comfortable Orientation/consciousness: oriented to person, oriented to place and oriented to time HENMT: Head: normal to inspection Ears: hearing grossly normal bilaterally Eyes: General: appearance normal, both eyes and all related structures Neck: Neck: normal visual inspection Chest: Chest palpation & inspection: normal inspection of the chest Resp: Effort & Inspection: normal respiratory effort and able to speak in complete sentences Auscultation: no crackles, no rales, no rhonchi, wheezes and diminished lung sounds Cardio: Jugular venous distension: no JVD GI: Inspection: normal to inspection Skin: General skin exam: normal color Neuro: General: oriented to person, oriented to place and oriented to time Extrem: General: edema Other: pitting edema upper and lower extremities Psych: Appearance: grossly normal Objective Data Vital Signs Vital Signs: Vital Signs - 24 hr 12/04/24 10:00 12/04/24 10:00 12/04/24 10:00 Temperature Pulse Rate 84 84 75 Respiratory Rate Blood Pressure 125/75 125/75 Pulse Oximetry Oxygen Delivery Oxygen Flow Rate Fraction of Inspired Oxygen 12/04/24 10:23 12/04/24 10:24 12/04/24 10:24 Temperature Pulse Rate 83 74 74 Respiratory Rate Blood Pressure 125/75 Pulse Oximetry Oxygen Delivery Oxygen Flow Rate Fraction of Inspired Oxygen 12/04/24 11:12 12/04/24 11:14 12/04/24 11:29 Temperature Pulse Rate 66 67 Respiratory Rate 16 16 Blood Pressure Pulse Oximetry 95 Oxygen Delivery High Flow Nasal Cannula Oxygen Flow Rate 3 Fraction of Inspired Oxygen 12/04/24 11:56 12/04/24 12:00 12/04/24 13:53 Temperature 37.2 C Pulse Rate 66 63 69 Respiratory Rate 20 Blood Pressure 132/64 Pulse Oximetry 98 Oxygen Delivery Oxygen Flow Rate Fraction of Inspired Oxygen 12/04/24 15:27 12/04/24 15:42 12/04/24 16:00 Temperature 36.8 C Pulse Rate 65 66 64 Respiratory Rate 16 16 16 Blood Pressure 108/54 L Pulse Oximetry 97 Oxygen Delivery Oxygen Flow Rate Fraction of Inspired Oxygen 12/04/24 16:00 12/04/24 18:00 12/04/24 18:03 Temperature Pulse Rate 62 68 70 Respiratory Rate Blood Pressure Pulse Oximetry Oxygen Delivery Oxygen Flow Rate Fraction of Inspired Oxygen 12/04/24 19:36 12/04/24 20:00 12/04/24 20:00 Temperature 36.9 C Pulse Rate 72 61 72 Respiratory Rate 16 14 15 Blood Pressure 127/53 L Pulse Oximetry 93 93 Oxygen Delivery Nasal Cannula Oxygen Flow Rate 3 Fraction of Inspired Oxygen 12/04/24 20:00 12/04/24 20:13 12/04/24 21:47 Temperature Pulse Rate 72 64 67 Respiratory Rate 15 Blood Pressure Pulse Oximetry Oxygen Delivery Oxygen Flow Rate Fraction of Inspired Oxygen 12/04/24 22:00 12/04/24 22:00 12/05/24 00:00 Temperature 36.9 C Pulse Rate 65 61 Respiratory Rate 17 20 Blood Pressure 139/62 Pulse Oximetry 96 Oxygen Delivery BiPAP Oxygen Flow Rate Fraction of Inspired Oxygen 12/05/24 00:00 12/05/24 00:00 12/05/24 01:13 Temperature Pulse Rate 60 60 60 Respiratory Rate 20 17 Blood Pressure Pulse Oximetry 96 Oxygen Delivery BiPAP Oxygen Flow Rate Fraction of Inspired Oxygen 32 12/05/24 01:19 12/05/24 02:00 12/05/24 04:00 Temperature 36.6 C Pulse Rate 58 L 62 67 Respiratory Rate 16 16 Blood Pressure 121/54 L Pulse Oximetry 97 Oxygen Delivery Oxygen Flow Rate Fraction of Inspired Oxygen 12/05/24 04:00 12/05/24 04:00 12/05/24 04:31 Temperature Pulse Rate 60 60 61 Respiratory Rate 16 15 Blood Pressure Pulse Oximetry 97 Oxygen Delivery BiPAP Oxygen Flow Rate Fraction of Inspired Oxygen 32 12/05/24 04:39 12/05/24 07:37 12/05/24 07:47 Temperature Pulse Rate 59 L 61 68 Respiratory Rate 16 18 18 Blood Pressure Pulse Oximetry Oxygen Delivery Oxygen Flow Rate Fraction of Inspired Oxygen 12/05/24 07:52 12/05/24 08:00 Temperature 36.8 C Pulse Rate 64 Respiratory Rate 18 Blood Pressure 138/51 L Pulse Oximetry 91 97 Oxygen Delivery High Flow Nasal Cannula Oxygen Flow Rate 3 Fraction of Inspired Oxygen Intake/Output Intake/Output: Intake & Output 12/02/24 12/03/24 12/04/24 12/05/24 23:59 23:59 23:59 23:59 Intake Total 924 1125.5 1622.2 290 Output Total 1700 2050 1800 1500 [facility] [phone] [phone] [phone] Meds/Results Medications: Active Medications Generic Name Dose Route Start Last Admin Trade Name Freq PRN Reason Stop Dose Admin Acetaminophen 650 mg 12/02/24 03:29 Acetaminophen 325 Mg Tablet PO Q4H PRN Mild Pain (1-3) or Fever Amiodarone HCl 200 mg 12/04/24 09:00 12/04/24 18:03 Amiodarone Hcl 200 Mg Tablet PO 200 mg BID YODIT Administration Amitriptyline HCl 10 mg 12/02/24 21:00 12/04/24 21:47 Amitriptyline Hcl 10 Mg Tablet PO 10 mg HS YODIT Administration Duloxetine HCl 40 mg 12/05/24 09:00 Duloxetine Hcl 20 Mg Capsule.Dr PO Q12HR YODIT Escitalopram Oxalate 20 mg 12/02/24 09:00 12/04/24 08:40 Escitalopram Oxalate 10 Mg Tablet PO 20 mg DAILY YODIT Administration Ferrous Sulfate 325 mg 12/02/24 09:00 12/04/24 18:03 Ferrous Sulfate [address] PO 325 mg BID YODIT Administration Furosemide 20 mg 12/06/24 09:00 Furosemide 20 Mg Tablet PO BID YODIT Guaifenesin/Dextromethorphan 10 ml 12/02/24 03:29 Guaifenesin/Dextromethorphan 10 Ml Udc PO Q4H PRN Cough Heparin Sodium (Porcine) 5,000 units 12/02/24 06:00 12/05/24 05:52 Heparin Sodium 5,000 Units/Ml Vial SUB-Q 5,000 units Q8HR YODIT Administration Piperacillin/Tazobactam/Dextrose 3.375 gm in 50 mls @ 100 mls/hr 12/02/24 04:00 12/05/24 05:52 Zosyn 3.375 Gm/Ns 50 Ml IVPB 100 mls/hr Q6HR YODIT Administration Azithromycin 500 mg in 250 mls @ 250 mls/hr 12/02/24 13:00 12/04/24 12:26 Zithromax IVPB 250 mls/hr Q24H YODIT Administration Ipratropium [place] 0.5 mg 12/03/24 12:00 12/05/24 07:35 Ipratropium Br 0.02% Inh Soln 0.5 Mg/2.5 Ml Vial INHALATION 0.5 mg Q4HRT YODIT Administration Levalbuterol HCl 1.25 mg 12/04/24 12:00 12/05/24 07:35 Levalbuterol Neb 1.25 Mg/3 Ml INHALATION 1.25 mg Q4HRT YODIT Administration Melatonin 5 mg 12/02/24 03:29 12/04/24 21:48 Melatonin 5 Mg Tablet PO 5 mg HS PRN Administration Insomnia Melatonin 5 mg 12/02/24 11:06 Melatonin 5 Mg Tablet PO HS PRN Insomnia Metoprolol Tartrate 100 mg 12/04/24 09:00 12/04/24 21:47 Metoprolol Tartrate 50 Mg Tab PO 100 mg Q12HR YODIT Administration Montelukast Sodium 10 mg 12/03/24 09:00 12/04/24 08:36 Montelukast Sodium 10 Mg Tablet PO 10 mg DAILY YODIT Administration Ondansetron HCl 4 mg 12/02/24 00:29 Ondansetron Inj 4 Mg/2 Ml Vial IV PUSH Q4H PRN Nausea Pantoprazole Sodium 40 mg 12/02/24 09:00 12/04/24 21:48 Pantoprazole 40 Mg Tablet PO 40 mg Q12HR YODIT Administration Potassium Chloride 20 meq 12/03/24 09:00 12/04/24 08:39 Potassium Chloride 20 Meq Packet (For Liquid) PO 20 meq DAILY YODIT Administration Prednisone 40 mg 12/03/24 08:00 12/04/24 08:40 Prednisone 20 Mg Tablet PO 40 mg DAILY@0800 YODIT Administration Quetiapine Fumarate 25 mg 12/02/24 21:00 12/04/24 21:48 Quetiapine Fumarate 25 Mg Tablet PO 25 mg HS YODIT Administration Ropinirole HCl 4 mg 12/02/24 21:00 12/05/24 00:13 Ropinirole Hcl 1 Mg Tablet PO Not Given HS YODIT Topiramate 200 mg 12/02/24 09:00 12/05/24 00:13 Topiramate 100 Mg Tablet PO 200 mg Q12HR YODIT Administration Trazodone HCl 50 mg 12/02/24 21:00 12/04/24 21:48 Trazodone Hcl 50 Mg Tablet PO 50 mg HS YODIT Administration Radiology Results: ITS Impressions Chest CTA 12/02/24 15:44 IMPRESSION: 1. No pulmonary embolism. 2. Bilateral basal atelectasis versus pneumonia. Clinical correlation advised. Venous Doppler Study 12/02/24 16:23 IMPRESSION: 1. Patent bilateral upper extremity veins. No evidence of venous thrombosis. Chest X-Ray 12/05/24 07:59 Impression: Probable minimal bibasilar pulmonary edema with discoid left basilar atelectasis. Labs Labs: Laboratory Results - last 24 hr 12/05/24 12/05/24 04:01 04:04 WBC 9.2 RBC 3.66 L Hgb 9.6 L Hct 32.8 L MCV 89.6 MCH 26.2 MCHC 29.3 L RDW 14.7 H Plt Count 244 MPV 9.5 Immature Gran % (Auto) 0.7 H Neut % (Auto) 55.3 Lymph % (Auto) 33.7 [place] % (Auto) 9.4 H Eos % (Auto) 0.8 Baso % (Auto) 0.1 L Lymph # (Auto) 3.10 [place] # (Auto) 0.9 H Eos # (Auto) 0.1 Baso # (Auto) 0.0 Abs Immat Gran (auto) 0.06 H Absolute Neuts (auto) 5.1 Absolute Nucleated RBC 0.000 Band Neutrophils % Not Reportable Nucleated RBC % 0.0 Platelet Estimate Adequate Anisocytosis 1+ Microcytosis 1+ Stomatocytes 1+ Schistocytes None seen Sodium 136 L Potassium 3.5 Chloride 96 L Carbon Dioxide 32 H Anion Gap 8 BUN 31 H Creatinine 1.51 H Estim Creat Clear Calc 44 Estimated GFR 34 L Glucose 98 Calcium 8.7 Total Bilirubin 0.5 AST 35 ALT 50 H Alkaline Phosphatase 81 NT-Pro-B Natriuret Pep 832 H Total Protein 7.0 Albumin 3.5
[2024-12-05] MEDS: POTASSIUM CHLORIDE 20 MEQ PACKET (FOR LIQUID) PO (09:16)
[2024-12-05] MEDS: FERROUS SULFATE 325 MG TABLET DR PO ×2 (09:17→16:18)
[2024-12-05] MEDS: AMIODARONE HCL 200 MG TABLET PO ×2 (09:17→16:17)
[2024-12-05] MEDS: METOPROLOL TARTRATE 50 MG TAB 100 MG PO ×2 (09:17→21:38)
[2024-12-05] MEDS: DULoxetine HCL 20 MG CAPSULE.DR 40 MG PO ×2 (09:18→22:40)
[2024-12-05] MEDS: PANTOPRAZOLE 40 MG TABLET PO ×2 (09:18→21:39)
[2024-12-05] MEDS: MONTELUKAST SODIUM 10 MG TABLET PO (09:18)
[2024-12-05] MEDS: predniSONE 20 MG TABLET 40 MG PO (09:18)
[2024-12-05] MEDS: ESCITALOPRAM OXALATE 10 MG TABLET 20 MG PO (09:18)
--- NOTE | 2024-12-05 10:26 | PCRCNOTE ---
Spoke to Varsha at [facility] in regards to approval of NIV unit. She stated she will look into status and call us back to let us know. I mentioned Dr Ingram request to have trial in hospital prior to d/c. Awaiting response
--- NOTE | 2024-12-05 11:09 | P.PNIM_ITS ---
Progress Note: A&P Assessment and Plan (1) Acute on chronic respiratory failure with hypoxia and hypercapnia: Code(s): J96.21 - Acute and chronic respiratory failure with hypoxia; J96.22 - Acute and chronic respiratory failure with hypercapnia Status: Acute Plan COPD exacerbation: Home O2 Discontinued DuoNeb due to tachycardia Started on Xopenex Continue Zosyn and azithromycin Currently on prednisone 40 mg p.o. q.d. Long smoking history Previous exacerbation on 01/14/2024 Multiple comorbid conditions including CHF COPD Exacerbation requiring BiPAP Currently on steroid methylprednisone 60 mg IV q.8 hours No evidence of Pulmonology workup done as OP. Currently on Zosyn Negative for RSV Influenza and COVID CTA negative for pulmonary embolism Ultrasound of upper and lower extremity no evidence of DVT CHF exacerbation BNP 758 ECHO: The left ventricular ejection fraction visually estimated to be 60-60%. Cardiology started Lasix 40mg IV BID but will decrease to 20mg IV BID due to decreasing renal function. Holding Lasix due to worsening renal function. Recent contrast exposure monitor renal function during diuresis echocardiogram ventricular ejection fraction visually estimated to be 60-60%. EKG sinus tachycardia Chest x-ray Pulmonary edema Optimize Scooter inhibitors, beta-blockers, ARNI Daily weights. fluid restriction Strict I&O's elevate/Scooter wrap legs if needed Continue metoprolol succinate to 25 mg p.o. q.d. Optimize blood pressure less than 130/80. Fall risk assessment. A.fib Not taking Eliquis for about 2 years due to previous history of rectus sheath Hematoma ? twice Cardiology following Left atrial appendage occlusion device as OP Lopressor 50 mg q.6 hours Amiodarone S/P Amiodarone 200 mg p.o. b.i.d., metoprolol 100 mg p.o. b.i.d. Subjective Date/time seen: 12/05/24 11:09 Interval history: Interval history: 64-year-old female with a past medical history of obesity, depression, anxiety, hypertension, insomnia, restless leg syndrome, chronic hypoxia. Patient is admitted in the setting of COPD exacerbation with acute on chronic hypoxia with hypercapnia Pertinent ED labs: WBC 9 point, Hemoglobin 10.1, platelet 207, sodium 133, potassium 4.3, BUN 25, creatinine 1.15, GFR 47 Negative for RSV, COVID, fluid ABG shows pH 7.3, CO2 69.5, O2 68.2, bicarb 34.1, O2 saturation 91.3 Chest x-ray shows cardiomegaly with cardiac decompensation and pulmonary edema. Pneumonitis in the left lower lobe is not excluded Patient is admitted in the setting of COPD exacerbation versus CHF exacerbation. Order echocardiogram. BNP is 758. Patient had a incidence of atrial fibrillation after receiving albuterol treatment. Initially patient did not respond to metoprolol, Cardizem push and Cardizem drip. Cardiology was consulted and started on amiodarone drip which was late after transition to p.o. amiodarone. Pulmonology is on the board due to COPD exacerbation. 12/05: Holding the Lasix, monitor weight, I's and O's. Removed fluid restriction. Review of Systems Review of Systems: All systems reviewed & are unremarkable except as noted in HPI and below Exam Const: General: in distress HENMT: Ears: TM's normal bilaterally Face/Nose/Sinus: Normal nares present Eyes: General: appearance normal, both eyes and all related structures Sclera: sclerae normal Pupils: Equal, round and reactive pupils present Neck: Neck: supple Resp: Effort & Inspection: abnormal respiratory effort Auscultation: whe ezes and diminished lung sounds bilateral throughout Cardio: Rate: regular rate Skin: General skin exam: normal color Neuro: Cranial nerves: Yes Equal, round and reactive pupils present Motor exam (neuro): 5/5 motor strength present throughout and Normal motor muscle tone present throughout Sensory Exam: normal sensation Extrem: General: normal to inspection Psych: Mental Status: mental status grossly normal Affect: Anxious affect present Objective Data Vital Signs Vital Signs: Vital Signs - 24 hr 12/04/24 11:12 12/04/24 11:14 12/04/24 11:29 Temperature Pulse Rate 66 67 Respiratory Rate 16 16 Blood Pressure Pulse Oximetry 95 Oxygen Delivery High Flow Nasal Cannula Oxygen Flow Rate 3 Fraction of Inspired Oxygen 12/04/24 11:56 12/04/24 12:00 12/04/24 13:53 Temperature 99.0 F Pulse Rate 66 63 69 Respiratory Rate 20 Blood Pressure 132/64 Pulse Oximetry 98 Oxygen Delivery Oxygen Flow Rate Fraction of Inspired Oxygen 12/04/24 15:27 12/04/24 15:42 12/04/24 16:00 Temperature 98.2 F Pulse Rate 65 66 64 Respiratory Rate 16 16 16 Blood Pressure 108/54 L Pulse Oximetry 97 Oxygen Delivery Oxygen Flow Rate Fraction of Inspired Oxygen 12/04/24 16:00 12/04/24 18:00 12/04/24 18:03 Temperature Pulse Rate 62 68 70 Respiratory Rate Blood Pressure Pulse Oximetry Oxygen Delivery Oxygen Flow Rate Fraction of Inspired Oxygen 12/04/24 19:36 12/04/24 20:00 12/04/24 20:00 Temperature 98.5 F Pulse Rate 72 61 72 Respiratory Rate 16 14 15 Blood Pressure 127/53 L Pulse Oximetry 93 93 Oxygen Delivery Nasal Cannula Oxygen Flow Rate 3 Fraction of Inspired Oxygen 12/04/24 20:00 12/04/24 20:13 12/04/24 21:47 Temperature Pulse Rate 72 64 67 Respiratory Rate 15 Blood Pressure Pulse Oximetry Oxygen Delivery Oxygen Flow Rate Fraction of Inspired Oxygen 12/04/24 22:00 12/04/24 22:00 12/05/24 00:00 Temperature 98.4 F Pulse Rate 65 61 Respiratory Rate 17 20 Blood Pressure 139/62 Pulse Oximetry 96 Oxygen Delivery BiPAP Oxygen Flow Rate Fraction of Inspired Oxygen 12/05/24 00:00 12/05/24 00:00 12/05/24 01:13 Temperature Pulse Rate 60 60 60 Respiratory Rate 20 17 Blood Pressure Pulse Oximetry 96 Oxygen Delivery BiPAP Oxygen Flow Rate Fraction of Inspired Oxygen 32 12/05/24 01:19 12/05/24 02:00 12/05/24 04:00 Temperature 97.8 F Pulse Rate 58 L 62 67 Respiratory Rate 16 16 Blood Pressure 121/54 L Pulse Oximetry 97 Oxygen Delivery Oxygen Flow Rate Fraction of Inspired Oxygen 12/05/24 04:00 12/05/24 04:00 12/05/24 04:31 Temperature Pulse Rate 60 60 61 Respiratory Rate 16 15 Blood Pressure Pulse Oximetry 97 Oxygen Delivery BiPAP Oxygen Flow Rate Fraction of Inspired Oxygen 32 12/05/24 04:39 12/05/24 07:37 12/05/24 07:47 Temperature Pulse Rate 59 L 61 68 Respiratory Rate 16 18 18 Blood Pressure Pulse Oximetry Oxygen Delivery Oxygen Flow Rate Fraction of Inspired Oxygen 12/05/24 07:52 12/05/24 08:00 12/05/24 08:00 Temperature 98.3 F Pulse Rate 64 Respiratory Rate 18 Blood Pressure 138/51 L Pulse Oximetry 91 97 97 Oxygen Delivery High Flow Nasal Cannula Nasal Cannula Oxygen Flow Rate 3 3 Fraction of Inspired Oxygen 12/05/24 08:41 12/05/24 09:17 12/05/24 09:17 Temperature Pulse Rate 70 70 Respiratory Rate Blood Pressure Pulse Oximetry Oxygen Delivery Nasal Cannula Oxygen Flow Rate 3 Fraction of Inspired Oxygen Intake/Output Intake/Output: Intake & Output 12/02/24 12/03/24 12/04/24 12/05/24 23:59 23:59 23:59 23:59 Intake Total 924 1125.5 1622.2 290 Output Total 1700 2050 1800 1500 [facility] -[phone] -[phone] -1210 Meds/Results Medications: Active Medications Generic Name Dose Route Start Last Admin Trade Name Freq PRN Reason Stop Dose Admin Acetaminophen 650 mg 12/02/24 03:29 Acetaminophen 325 Mg Tablet PO Q4H PRN Mild Pain (1-3) or Fever Amiodarone HCl 200 mg 12/04/24 09:00 12/05/24 09:17 Amiodarone Hcl 200 Mg Tablet PO 200 mg BID YODIT Administration Amitriptyline HCl 10 mg 12/02/24 21:00 12/04/24 21:47 Amitriptyline Hcl 10 Mg Tablet PO 10 mg HS YODIT Administration Duloxetine HCl 40 mg 12/05/24 09:00 12/05/24 09:18 Duloxetine Hcl 20 Mg Capsule.Dr PO 40 mg Q12HR YODIT Administration Escitalopram Oxalate 20 mg 12/02/24 09:00 12/05/24 09:18 Escitalopram Oxalate 10 Mg Tablet PO 20 mg DAILY YODIT Administration Ferrous Sulfate 325 mg 12/02/24 09:00 12/05/24 09:17 Ferrous Sulfate [address] PO 325 mg BID YODIT Administration Furosemide 20 mg 12/06/24 09:00 Furosemide 20 Mg Tablet PO BID YODIT Guaifenesin/Dextromethorphan 10 ml 12/02/24 03:29 Guaifenesin/Dextromethorphan 10 Ml Udc PO Q4H PRN Cough Heparin Sodium (Porcine) 5,000 units 12/02/24 06:00 12/05/24 05:52 Heparin Sodium 5,000 Units/Ml Vial SUB-Q 5,000 units Q8HR YODIT Administration Piperacillin/Tazobactam/Dextrose 3.375 gm in 50 mls @ 100 mls/hr 12/02/24 04:00 12/05/24 05:52 Zosyn 3.375 Gm/Ns 50 Ml IVPB 100 mls/hr Q6HR YODIT Administration Azithromycin 500 mg in 250 mls @ 250 mls/hr 12/02/24 13:00 12/04/24 12:26 Zithromax IVPB 250 mls/hr Q24H YODIT Administration Ipratropium [place] 0.5 mg 12/03/24 12:00 12/05/24 07:35 Ipratropium Br 0.02% Inh Soln 0.5 Mg/2.5 Ml Vial INHALATION 0.5 mg Q4HRT YODIT Administration Levalbuterol HCl 1.25 mg 12/04/24 12:00 12/05/24 07:35 Levalbuterol Neb 1.25 Mg/3 Ml INHALATION 1.25 mg Q4HRT YODIT Administration Melatonin 5 mg 12/02/24 03:29 12/04/24 21:48 Melatonin 5 Mg Tablet PO 5 mg HS PRN Administration Insomnia Melatonin 5 mg 12/02/24 11:06 Melatonin 5 Mg Tablet PO HS PRN Insomnia Metoprolol Tartrate 100 mg 12/04/24 09:00 12/05/24 09:17 Metoprolol Tartrate 50 Mg Tab PO 100 mg Q12HR YODIT Administration Montelukast Sodium 10 mg 12/03/24 09:00 12/05/24 09:18 Montelukast Sodium 10 Mg Tablet PO 10 mg DAILY YODIT Administration Ondansetron HCl 4 mg 12/02/24 00:29 Ondansetron Inj 4 Mg/2 Ml Vial IV PUSH Q4H PRN Nausea Pantoprazole Sodium 40 mg 12/02/24 09:00 12/05/24 09:18 Pantoprazole 40 Mg Tablet PO 40 mg Q12HR YODIT Administration Potassium Chloride 20 meq 12/03/24 09:00 12/05/24 09:16 Potassium Chloride 20 Meq Packet (For Liquid) PO 20 meq DAILY YODIT Administration Prednisone 40 mg 12/03/24 08:00 12/05/24 09:18 Prednisone 20 Mg Tablet PO 40 mg DAILY@0800 YODIT Administration Quetiapine Fumarate 25 mg 12/02/24 21:00 12/04/24 21:48 Quetiapine Fumarate 25 Mg Tablet PO 25 mg HS YODIT Administration Ropinirole HCl 4 mg 12/02/24 21:00 12/05/24 00:13 Ropinirole Hcl 1 Mg Tablet PO Not Given HS YODIT Topiramate 200 mg 12/02/24 09:00 12/05/24 09:17 Topiramate 100 Mg Tablet PO 200 mg Q12HR YODIT Administration Trazodone HCl 50 mg 12/02/24 21:00 12/04/24 21:48 Trazodone Hcl 50 Mg Tablet PO 50 mg HS YODIT Administration Radiology Results: ITS Impressions Chest CTA 12/02/24 15:44 IMPRESSION: 1. No pulmonary embolism. 2. Bilateral basal atelectasis versus pneumonia. Clinical correlation advised. Venous Doppler Study 12/02/24 16:23 IMPRESSION: 1. Patent bilateral upper extremity veins. No evidence of venous thrombosis. Chest X-Ray 12/05/24 07:59 Impression: Probable minimal bibasilar pulmonary edema with discoid left basilar atelectasis. Labs Labs: Laboratory Results - last 24 hr 12/05/24 12/05/24 04:01 04:04 WBC 9.2 RBC 3.66 L Hgb 9.6 L Hct 32.8 L MCV 89.6 MCH 26.2 MCHC 29.3 L RDW 14.7 H Plt Count 244 MPV 9.5 Immature Gran % (Auto) 0.7 H Neut % (Auto) 55.3 Lymph % (Auto) 33.7 [place] % (Auto) 9.4 H Eos % (Auto) 0.8 Baso % (Auto) 0.1 L Lymph # (Auto) 3.10 [place] # (Auto) 0.9 H Eos # (Auto) 0.1 Baso # (Auto) 0.0 Abs Immat Gran (auto) 0.06 H Absolute Neuts (auto) 5.1 Absolute Nucleated RBC 0.000 Band Neutrophils % Not Reportable Nucleated RBC % 0.0 Platelet Estimate Adequate Anisocytosis 1+ Microcytosis 1+ Stomatocytes 1+ Schistocytes None seen Sodium 136 L Potassium 3.5 Chloride 96 L Carbon Dioxide 32 H Anion Gap 8 BUN 31 H Creatinine 1.51 H Estim Creat Clear Calc 44 Estimated GFR 34 L Glucose 98 Calcium 8.7 Total Bilirubin 0.5 AST 35 ALT 50 H Alkaline Phosphatase 81 NT-Pro-B Natriuret Pep 832 H Total Protein 7.0 Albumin 3.5 Hospitalist MIPS Advance Care Plan I have confirmed that the patient's Advanced Care Plan is present, code status is documented, or surrogate decision maker is listed in patient medical record.: Yes Medication Reconciliation I have utilized all available resources to obtain, update and review the patients current medications (includes all prescriptions, OTC, herbals, cannabis, and nutritional supplements).: Yes
[2024-12-05] MEDS: AZITHROMYCIN 500 MG/NS 250 ML 500 MG/250 ML BAG 250 MG IVPB (12:02)
--- NOTE | 2024-12-05 17:00 | PC.NURSE ---
This patient, Cony Shin, was received from IMU 209 on 12/05/24 at 1700. Patient/family oriented to unit policies and routines
--- NOTE | 2024-12-05 18:00 | PC.NURSE ---
This patient, Cony Shin, was transferred to room 325 on 12/05/24 at 1800. Personal belongings sent with patient. Report given to ROX Donnelly. Appropriate documentation sent with patient.
[2024-12-05] MEDS: traZODone HCL 50 MG TABLET PO (21:39)
[2024-12-05] MEDS: QUEtiapine FUMARATE 25 MG TABLET PO (21:39)
[2024-12-05] MEDS: MELATONIN 5 MG TABLET PO (22:39)
[2024-12-05] MEDS: AMITRIPTYLINE HCL 10 MG TABLET PO (22:41)
[2024-12-05] MEDS: rOPINIRole HCL 1 MG TABLET 4 MG PO (22:43)
[2024-12-06] VITALS (21 sets, daily range): BP systolic 121–168; BP diastolic 57–89; PULSE 48–65; RESP 15–20; TEMP 35.8–36.4; O2SAT 94–98
[2024-12-06] MEDS: IPRATROPIUM BR 0.02% INH SOLN 0.5 MG/2.5 ML VIAL INHALATION ×4 (03:04→20:23)
[2024-12-06] MEDS: LEVALBUTEROL NEB 1.25 MG/3 ML INHALATION ×4 (03:04→20:23)
[2024-12-06] MEDS: HEPARIN SODIUM 5,000 UNITS/ML VIAL 5000 UNITS SUB-Q ×3 (05:26→21:16)
[2024-12-06] MEDS: PIPERACILLN/TAZ 3.375GM/NS50ML 3.375 GM/50 ML BAG IVPB ×4 (05:27→23:59)
[2024-12-06 06:13] LABS: Basophils Percent Auto 0.2 % (0.2-1.2); Eosinophils Absolute Auto 0.1 K/mm3 (0-0.3); Eosinophils Percent Auto 1.5 % (0-4.4); Hematocrit 33.7 % (37.0-47.0); Hemoglobin 9.6 g/dL (12.0-15.0); Immature Granulocyte Absolute 0.08 K/mm3 (0.00-0.031); Immature Granulocyte Percent A 0.9 % (0-0.5); Lymphocytes Absolute Auto 2.91 K/mm3 (0.9-3.2); Lymphocytes Percent Auto 33.9 % (18.3-44.2); Mean Corpuscular HGB Conc 28.5 g/dl (32-36); Mean Corpuscular Hemoglobin 26.4 pg (26-34); Mean Corpuscular Volume 92.6 fl (80-100); Mean Platelet Volume 9.6 fl (7.4-10.4); Monocytes Absolute Auto 0.8 K/mm3 (0.1-0.6); Monocytes Percent Auto 9.2 % (2.6-8.5); Neutrophils Absolute Auto 4.7 K/mm3 (1.3-6.7); Neutrophils Percent Auto 54.3 % (45.5-73.1); Platelet Count Result 232 k/mm3 (150-375); Red Blood Count 3.64 M/mm3 (4.2-5.4); Red Cell Distribution Width 14.8 % (11.5-14.5); White Blood Count 8.6 K/mm3 (4.5-10.0)
[2024-12-06 06:31] LABS: Alanine Aminotransferase 52 U/L (6-35); Albumin Level 3.7 g/dL (3.5-5.1); Alkaline Phosphatase 75 U/L (38-126); Anion Gap 8 mmol/L (4-12); Aspartate Amino Transferase 23 U/L (14-36); Bilirubin,Total 0.6 mg/dL (0.2-1.3); Blood Urea Nitrogen 25 mg/dL (7-17); Calcium 8.8 mg/dL (8.4-10.2); Carbon Dioxide 29 mmol/L (22-30); Chloride 101 mmol/L (98-107); Estimated CRCL calculation 48 ml/min; Estimated Glomerular Filt Rate 39; Glucose 94 mg/dL (65-110); Potassium 3.5 mmol/L (3.4-5.0); Sodium 138 mmol/L (137-145)
[2024-12-06 06:43] LABS: Hypochromasia 1+; Platelet Estimate Adequate (Adequate); Schistocytes None Seen
[2024-12-06] MEDS: predniSONE 20 MG TABLET 40 MG PO (08:04)
--- NOTE | 2024-12-06 08:21 | P.PNPL_ITS ---
Progress Note: A&P Assessment and Plan (1) Chronic obstructive pulmonary disease: Code(s): J44.9 - Chronic obstructive pulmonary disease, unspecified Status: Chronic Assessment and Plan: Regarding her COPD the patient has been on oxygen for the last 5 years. I have no PFTs. She is using 5 L at rest with home saturations 92-96%. First CT scan in our system is from 08/27/2022 and this shows mild apical predominant centrilobular emphysema. Repeat CT angiogram of the chest on 12/02/2024 demonstrates mild apical predominant centrilobular emphysema. She is using 6 L with activity but even with walking room to room her saturations go into the mid 70s. Patient is maintained on trelegy inhaler but she does not use a because of the taste. Patient takes montelukast 10 and albuterol p.r.n.. Patient tells me she wheezes every day when she takes rescue albuterol at home it relieves her wheezing for 1-2 minutes. Patient follows with a crusher and binder operator in [place] Dr. Zamorano. Patient has chronic hypercarbic respiratory failure from her COPD with a blood gas of 7.34/65/103 and a serum bicarbonate greater than 40. She would benefit from a noninvasive ventilation. Patient was placed on BiPAP but could not tolerate these settings because the flow in pressures were too high. I will initiate the process for a home noninvasive ventilator with the AVAPS mode through her [employer] for oxygen which is [employer]. 12/02/24: patient with a history of COPD, worsening cough, shortness of breath and hypoxemia. She says she has had no change in her phlegm production. No wheezing currently. Plan: will treat the patient for COPD exacerbation and will continue Solu- Medrol 60 Q 8. Will change to prednisone 40 mg p.o. q.day on 12/03/2024. Continue DuoNebs q.6 hours. Continue montelukast 10. Patient has a history of UTI and was started on ciprofloxacin on 12/01/2024. Patient currently on Zosyn. Will add azithromycin. Goal saturation 90-94%. Adjust study oxygen accordingly. I will send respiratory pathogen panel, mycoplasma IgM antibody, urine pneumococcal, urine Legionella studies looking for infectious etiology. I will send alpha 1 anti trypsin genotype and level looking for genetic predisposition for her COPD. Patient has a positive D-dimer and I will check a CT angiogram of the chest, she has swelling of the lower extremities and upper extremities bilaterally and I will get upper and lower extremity Dopplers. Echocardiogram has been ordered. Later in the day patient had a CT angiogram of the chest which was negative for PE, mild apical predominant centrilobular emphysema, posterior lower lobe atelectasis versus infiltrate right greater than left. No pleural effusions. Upper and lower extremity Dopplers were negative for DVT. Echocardiogram with LVEF 60 65%, RV was dilated with normal systolic function. Left atrium normal, right atrium normal, RVSP 27 12/03/2024: Patient told me she slept with the noninvasive ventilator in the AVAPS last night and did well. She said she slept well and was well rested. Currently she is in AFib RVR on 5 of Dilt drip but her heart rate remains 160. She says she has no shortness of breath but just feels bad. Her saturations on the 5 L are 94%. She is in no respiratory distress. She had a fever last night. White blood cell count 12.1, creatinine 1.29, BNP 972. Procalcitonin 0.3. She received 1 dose of Lasix yesterday. Plan: she has no wheezing at this time. Continue prednisone 40 mg p.o. q.day, day 2 steroids. I will discontinue all beta agonists as she has a tachyarrhythmia. I will increase her ipratropium nebulizers to q.[address] scan shows small posterior lower lobe atelectasis versus infiltrate, she had a fever, procalcitonin is low and she has a leukocytosis. She is on Zosyn and azithromycin for possible pneumonia. I am not convinced this is pneumonia but will continue treatment for now while other etiologies of her fever and leukocytosis are being worked up. 12/04/24: Patient feels better than she did yesterday. Overall she tells me she is breathing normal. She denies cough, phlegm or hemoptysis. She is afebrile. White blood cell count 10.2, creatinine 1.36. She diuresed 1.1 L yesterday and cumulative she has diuresed 2.4 L. Her weight today is 121.7 with an admission weight of 121.8. She is wheezing on exam. On amiodarone drip heart rate over the last 12 hours 60 to 74. Plan: Patient has wheezing on exam is but denies shortness of breath. Oxygenation continues to improve. She is in no respiratory distress. I will continue prednisone 40 mg p.o. q.day, day 3 of steroids. I will continue ipratropium 0.5 mg nebulized q.4 hours and add levalbuterol 1.25 mg nebulized Q 4 hours. currently patient is on Zosyn and azithromycin for possible pneumonia, both day 3. Will continue. AFib RVR, and fluid overload managed per hospitalist and publications inspector teams. 12/05/24: Patient continues to improve. Patient tells me she is breathing back at her normal. She denies cough, phlegm, hemoptysis. Patient slept well with a fullface mask in the hospital noninvasive ventilator. Currently she is on 3 L nasal cannula saturations 92%. White blood cell count 9.2, creatinine 1.51. she diuresed 177 mL yesterday and cumulative diuresis 3.1 L since admission. Her weight today is 120.1 kg. BNP has decreased from 972 on 12/03/2024 to a value of 832 today. Chest x-ray today with cardiomegaly, mild perihilar congestion, discoid atelectasis at the bases and no pleural effusion. plan: Patient is wheezing but tells me she wheezes every day. Continue prednisone 40 mg p.o. q.day, day 4 steroids. Continue ipratropium and levalbuterol nebulizers q.4 hours. Continue Zosyn and azithromycin both day 4. AFib with RVR, fluid overload managed by hospitalist and publications inspector team. Creatinine increased to 1.51 will consider decreasing diuretics. 12/06/24: Patient tells me she continues to improve. She has tells me that she is breathing well back to her baseline. She denies cough, phlegm, hemoptysis. She is afebrile. When she walks she says she has her usual dyspnea on exertion. White blood cell count 8.6, creatinine 1.37. Yesterday she diuresed 1.05 L, with cumulative diuresis since admission 3.3 L. No weight was measured today. Plan: Patient with mild expiratory wheezes. Continue prednisone 40 mg p.o. q.day, day 5 of steroids. Will decrease her ipratropium and levalbuterol nebulizers to Q 6 hours. Continue Zosyn and azithromycin, both day 5. Will discontinue azithromycin after today's dose. Patient auto diuresed yesterday with no Lasix. Creatinine is improved. Discussed with Dr. Farfan, will follow with you. (2) Chronic hypercapnic respiratory failure: Code(s): J96.12 - Chronic respiratory failure with hypercapnia Status: Acute Assessment and Plan: Patient has chronic hypercarbic respiratory failure from her COPD with a blood gas of 7.34/65/103 and a serum bicarbonate greater than 40. She would benefit from a noninvasive ventilation. Patient was placed on BiPAP but could not tolerate these settings because the flow in pressures were too high. I will initiate the process for a home noninvasive ventilator with the AVAPS mode through her [employer] for oxygen which is [employer]. 12/02/2024: When I enter the room the patient was on BiPAP in no respiratory distress. Patient told me the machine and the breathing was uncomfortable and that she would not be able to sleep with this. I changed her to noninvasive ventilator with the AVAS mode an adjusted settings to comfort resulting in a rate of 14, tidal volume 500, EPAP 5, minimal inspiratory pressure 6, maximal inspiratory pressure 25, inspiratory time 1.0, rise of 1 which is are fast this and it and 40% FiO2. She was able to tolerate these settings. She felt she could come off BiPAP and I placed her on 5 L nasal cannula and after 12 minutes her saturations were 92%. Plan: Patient can use noninvasive ventilation with the AVAPS mode p.r.n. during the day but should wear this at night. I will perform an overnight oximetry and ABG prior to removal on these settings. Later in the day initiated home noninvasive ventilation with [employer]. 12/03/24: Patient slept with the noninvasive ventilator last night and said she did well and was able to sleep. On the noninvasive ventilator with the AVAPS settings as above and 40% FiO2 the patient had an overnight oximetry with recording duration of 7 hours and 45 minutes. Average saturation 95%. Low saturation 89%. Time with saturation less than or equal to 88% was 0 minutes. Oxygen desaturation index 2.2. Patient an ABG prior to removal with a pH of 7.43/58/101. Plan: Current noninvasive ventilation with the AVAPS mode rate of 14, tidal volume 500, EPAP 5, minimal inspiratory pressure 6, maximal inspiratory pressure 25, inspiratory time 1.0, rise of 1 which is are fast this and it and 40% FiO2, provide adequate ventilation and oxygenation. I will place her on AVAPS mode with 32% FiO2 tonight and repeat an overnight oximetry. 12/04/24: Patient wore the noninvasive ventilator last night with 32% FiO2. She had an overnight oximetry on these settings with recording duration of 7 hours and 2 minutes, average saturation 96%. Low saturation 85%. Time with saturation less than or equal to 88% was 3 minutes, oxygen desaturation index 3.3. Plan: current noninvasive ventilation with the AVAPS settings above and 32% FiO2 provide adequate ventilation and oxygenation and will continue. 12/05/24: Patient continues to improve. Patient tells me she is breathing back at her normal. She denies cough, phlegm, hemoptysis. Patient slept well with a fullface mask in the hospital noninvasive ventilator. Currently she is on 3 L nasal cannula saturations 92%. Plan: Discussed with wardrobe coordinator and waiting for home noninvasive ventilation through [facility]. Later in the day filled out an order for for noninvasive ventilation with [facility]: I have apps-AE with a rate of 14, EPAP minimum 5, EPAP maximum 20, pressure support minimum 5, pressure support maximum 20, inspiratory time 0.5- 1.5 and 3 L bleed in. 12/06/24: She slept with the hospital noninvasive ventilator in the fullface mask last night. Plan: Discussed with respiratory care, awaiting to hear updates from [facility] and her insurance, [facility], regarding her home noninvasive ventilator set up. Subjective Date/time seen: 12/06/24 08:21 Interval history: 12/02/2024: This is a new pulmonary consult for acute on chronic hypercarbic and hypoxemic respiratory failure. 64-year-old with a history of hypertension, restless legs syndrome, anxiety and COPD With chronic hypoxemic respiratory failure on 5 L at rest and 6 L with activity. Regarding her COPD the patient has been on oxygen for the last 5 years. I have no PFTs. She is using 5 L at rest with home saturations 92-96%. For CT scan in our system is from 08/27/2022 and this shows mild apical predominant centrilobular emphysema. She is using 6 L with activity but even with walking room to room her saturations go into the mid 70s. Patient is maintained on trelegy inhaler but she does not use a because of the taste. Patient takes montelukast 10 and albuterol p.r.n.. Patient tells me she has wheezing every day when she takes rescue albuterol it relieves the reason wheezing for approximately 1-2 minutes. Patient follows with a crusher and binder operator in [place] Dr. Zamorano. Patient is currently on BiPAP and family is in the room who aids with history. For the last 2-3 weeks patient has had worsening shortness of breath, wheezing, cough with no phlegm production, swelling of the legs and abdomen. She was diagnosed with the UTI on 12/01/2024 and started on ciprofloxacin. Later the night, She had worsening hypoxemia and yesterday she could not keep her saturations up and presented to the emergency room. in the emergency room her blood pressure was 142/106, heart rate 115, respirations 22 and on 15 L non- rebreather her saturation were 98%. Patient had white blood cell count of 14.8 was 0.6% eosinophils equals 89 per micro L, creatinine 1.16, serum bicarbonate greater than 40, COVID influenza and RSV RT PCR study negative. ABG on 10 L non-rebreather was 7.34/65/103. Procalcitonin was 0.4. BNP was 758. Chest x-ray showed pulmonary congestion with left greater than right interstitial infiltrates. Patient was treated for COPD exacerbation, pneumonia, fluid overload. 12/02/2024: When I enter the room the patient was on BiPAP in no respiratory distress. She was awake communicative and following simple commands. The patient told me she was breathing back to her normal. She complained of some dizziness but denied fever, chills, rigors, wheezing, phlegm production or hemoptysis. She said her coughing is slightly increased compared to her baseline. Patient was on BiPAP rate of 22, pressures 16/8 with tidal volumes 880 inspiratory time 1.0 with a blood gas of 7.40/52/43. patient told me the machine and the breathing was uncomfortable and that she would not be able to sleep with this. I changed her to noninvasive ventilator with the AVAS mode an adjusted settings to comfort resulting in a rate of 14, tidal volume 500, EPAP 5, minimal inspiratory pressure 6, maximal inspiratory pressure 25, inspiratory time 1.0, rise of 1 which is are fast this and it and 40% FiO2. She was able to tolerate these settings. She felt she could come off of the BiPAP and I placed her on 5 L nasal cannula and after 12 minutes her saturations were 92%. Later in the day patient had a CT angiogram of the chest which was negative for PE, mild apical predominant centrilobular emphysema posterior lower lobe atelectasis versus infiltrate right greater than left. No pleural effusions. Upper and lower extremity Dopplers were negative for DVT. Echocardiogram with LVEF 60 65%, RV was dilated with normal systolic function. Left atrium normal, right atrium normal, RVSP 27 12/03/2024: Patient told me she slept with the noninvasive ventilator in the AVAPS last night and did well. She said she slept well and was well rested. Currently she is in AFib RVR on 5 of Dilt drip but her heart rate remains 160. She says she has no shortness of breath but just feels bad. Her saturations on the 5 L are 94%. She is in no respiratory distress. She had a fever last night. White blood cell count 12.1, creatinine 1.29, BNP 972. Procalcitonin 0.3. She received 1 dose of Lasix yesterday. Albuterol and levalbuterol treatments discontinued. given metoprolol and diltiazem for AFib RVR which were unsuccessful and started on amiodarone drip yesterday. On the noninvasive ventilator with the AVAPS settings as above and 40% FiO2 the patient had an overnight oximetry with recording duration of 7 hours and 45 minutes. Average saturation 95%. Low saturation 89%. Time with saturation less than or equal to 88% was 0 minutes. Oxygen desaturation index 2.2. Patient an ABG prior to removal with a pH of 7.43/58/101. 4/: patient feels better than she did yesterday. Overall she tells me she is breathing normal. She denies cough, phlegm or hemoptysis. She is afebrile. White blood cell count 10.2, creatinine 1.36. When I enter the room the patient was on 5 L nasal cannula saturations 97%. I decreased her to 3 L nasal cannula saturations were 92%. She diuresed 1.1 L yesterday and cumulative she has diuresed 2.4 L. Her weight today is 121.7 with an admission weight of 121.8. Patient wore the noninvasive ventilator last night with 32% FiO2. She had an overnight oximetry on these settings with recording duration of 7 hours and 2 minutes, average saturation 96%. Low saturation 85%. Time with saturation less than or equal to 88% was 3 minutes, oxygen desaturation index 3.3. She is wheezing on exam. On amiodarone drip heart rate over the last 12 hours 60 to 74. 12/05/24: Patient continues to improve. Patient tells me she is breathing back at her normal. She denies cough, phlegm, hemoptysis. Patient slept well with a fullface mask in the hospital noninvasive ventilator. Currently she is on 3 L nasal cannula saturations 92%. White blood cell count 9.2, creatinine 1.51. she diuresed 177 mL yesterday and cumulative diuresis 3.1 L since admission. Her weight today is 120.1 kg. BNP has decreased from 972 on 12/03/2024 to a value of 832 today. Chest x-ray today with cardiomegaly, mild perihilar congestion, discoid atelectasis at the bases and no pleural effusion. Later in the day filled out an order for for noninvasive ventilation with [facility]: I have apps-AE with a rate of 14, EPAP minimum 5, EPAP maximum 20, pressure support minimum 5, pressure support maximum 20, inspiratory time 0.5- 1.5 and 3 L bleed in. 12/06/24: Patient tells me she continues to improve. She has tells me that she is breathing well back to her baseline. She denies cough, phlegm, hemoptysis. She is afebrile. She slept with the hospital noninvasive ventilator in the fullface mask last night. When she walks she says she has her usual dyspnea on exertion. White blood cell count 8.6, creatinine 1.37. Yesterday she diuresed 1.05 L, with cumulative diuresis since admission 3.3 L. No weight was measured today. DATA 12/17/2023: CT Scan of the Chest without Contrast: Clinical Indication: Lung cancer screening, nicotine dependence Technique: Contiguous sections were acquired throughout the chest without intravenous contrast. Dose reduction technique was used on this scan by utilizing automated exposure control and iterative reconstruction technique. The dose-length product (DLP) was 341.26 mGy-cm. COMPARISON: 04/06/2023 Findings: Stable enlarged left thyroid lobe. There is no evidence of any significant mediastinal, hilar or axillary lymphadenopathy. Atherosclerotic calcifications of the aorta are present. There is no evidence of pleural or pericardial effusion. There is irregular airspace opacity in the posterior right lower lobe, improved from prior exam, likely representing postinflammatory change, as there is a previous more extensive area of consolidation in this location. Mild emphysema. Images through the upper abdomen reveal no abnormalities. Impression: Lung RADS 2: Benign appearance. 12 month follow-up screening CT advised. 09/10/2022: Echo Summary 1. Technically difficult study with limited views. Regional wall motion assessment limited due to poor endomyocardial border definition despite definity contrast enhancement. 2. Left ventricular chamber dimension is normal. 3. Left ventricular systolic function is normal, estimated at 65-70%. 4. There is mildly increased left ventricular wall thickness. 5. Right ventricular chamber dimension is normal. 6. Right ventricular systolic function is moderately reduced. TAPSE 1.3. 7. There is trace tricuspid valve regurgitation. 8. Mild pulmonary hypertension, estimated pulmonary arterial systolic pressure is 37 mmHg. 9. Normal inferior vena cava with <50% collapse upon inspiration consistent with elevated right atrial pressure, 10 mmHg. 08/28/2022: Summary 1. Left ventricular chamber dimension is normal. 2. Left ventricular systolic function is normal, estimated at 60-65%. 3. The left ventricular diastolic function is grade I diastolic dysfunction. 4. Right ventricular chamber dimension is moderately enlarged. 5. Right ventricular systolic function is normal. 6. There is moderate tricuspid valve regurgitation, which may be underestimated due to the eccentricity of the jet. 7. Dilated inferior vena cava with no collapse upon inspiration consistent with elevated right atrial pressure, 15 mmHg. 8. Pulmonary hypertension with an estimated PASP of 59mmHg. Right Ventricle Right ventricular chamber dimension is moderately enlarged. Right ventricular systolic function is normal. Right Atria Right atrial chamber dimension is normal. Atrial Septum Intact interatrial septum visualized by color flow imaging. 08/27/2022: EXAMINATION: CT chest high resolution wo co DATE: 08/27/2022 16:07 INDICATION: respiratory failure TECHNIQUE: Computed tomography (CT) of the chest was performed without intravenous contrast. Automated exposure control and iterative reconstruction technique were employed. The dose-length product was 818.52 mGy-cm. COMPARISON: X-ray chest 08/27/2022 and CTA chest 07/21/2018. FINDINGS: CHEST: Endotracheal tube terminating 2.5 cm above the maria esther. Thoracic aorta: No significant dilation. Moderate arch calcification. Lung parenchyma and airways: Diffuse tree-in-bud opacities most evident in the right lung. Scattered centrilobular nodular opacities measuring up to 11 mm in the right upper lobe. Mild interlobular septal thickening. Bibasilar dependent opacities likely representing atelectasis. Mild emphysematous change. Thoracic inlet, axillae and chest wall: No thyroid or soft tissue mass. No axillary lymphadenopathy. Mediastinum: Mediastinal lymphadenopathy. Dilated central pulmonary arteries as can be seen with pulmonary arterial hypertension. Heart and pericardium: Normal heart size. Aortic valve calcification. No pericardial effusion. Coronary artery calcifications: Mild. Pleura: Trace bilateral pleural fluid. Upper abdomen: No significant finding. Thoracic bones: No acute osseous finding in the chest. IMPRESSION: 1. Tree-in-bud opacities as can be seen with atypical infection (including but not limited to: MAC, TB, fungal), ABPA, airways disease, and less likely aspiration. 2. Nodular opacity in right upper lobe should be followed after the appropriate therapy and cessation of symptoms to ensure resolution. 3. Mediastinal lymphadenopathy. 4. Trace bilateral pleural effusions. 5. Mild interstitial edema. Review of Systems Constitutional: Constitutional: Reports no additional constitutional complaints Eyes: Eyes: Reports no additional eye complaints ENT: Reports system reviewed and no additional complaints, except as documented Cardiovascular: Cardiovascular: Reports no additional cardiovascular complaints Respiratory: Respiratory: Reports no additional respiratory complaints Gastrointestinal: Gastrointestinal: Reports no additional gastrointestinal complaints Musculoskeletal: Musculoskeletal: Reports no additional musculoskeletal complaints Neurologic: Reports system reviewed and no additional complaints, except as documented Psychiatric: Psychiatric: Reports no additional psychiatric complaints Endocrine: Endocrine: Reports no additional endocrine complaints Hematologic/Lymphatic: Hematologic/Lymphatic: Reports no additional hematologic/lymphatic complaints Allergic/Immunologic: Allergic/Immunologic: Reports no additional allergic/immunologic complaints Exam Const: General: cooperative, healthy appearing and comfortable Orientation/consciousness: oriented to person, oriented to place and oriented to time HENMT: Head: normal to inspection Ears: hearing grossly normal bilaterally Eyes: General: appearance normal, both eyes and all related structures Neck: Neck: normal visual inspection Chest: Chest palpation & inspection: normal inspection of the chest Resp: Effort & Inspection: normal respiratory effort and able to speak in complete sentences Auscultation: no crackles, no rales, no rhonchi, wheezes and diminished lung sounds Cardio: Jugular venous distension: no JVD GI: Inspection: normal to inspection Skin: General skin exam: normal color Neuro: General: oriented to person, oriented to place and oriented to time Extrem: General: edema Other: pitting edema upper and lower extremities Psych: Appearance: grossly normal Objective Data Vital Signs Vital Signs: Vital Signs - 24 hr 12/05/24 08:41 12/05/24 09:17 12/05/24 09:17 Temperature Pulse Rate 70 70 Respiratory Rate Blood Pressure Pulse Oximetry Oxygen Delivery Nasal Cannula Oxygen Flow Rate 3 12/05/24 10:00 12/05/24 11:48 12/05/24 11:57 Temperature 36.6 C Pulse Rate 69 63 58 L Respiratory Rate 18 20 Blood Pressure 144/66 H Pulse Oximetry 95 Oxygen Delivery Oxygen Flow Rate 12/05/24 12:00 12/05/24 12:00 12/05/24 12:00 Temperature Pulse Rate 60 62 Respiratory Rate 18 Blood Pressure Pulse Oximetry 95 Oxygen Delivery Nasal Cannula Oxygen Flow Rate 3 12/05/24 14:00 12/05/24 15:57 12/05/24 16:00 Temperature 37.2 C Pulse Rate 67 68 60 Respiratory Rate 20 Blood Pressure 144/52 H Pulse Oximetry 96 Oxygen Delivery Oxygen Flow Rate 12/05/24 16:00 12/05/24 16:00 12/05/24 16:03 Temperature 37.2 C Pulse Rate 60 60 Respiratory Rate 20 Blood Pressure 144/52 H Pulse Oximetry 96 97 Oxygen Delivery High Flow Nasal Cannula Oxygen Flow Rate 3 12/05/24 16:09 12/05/24 16:17 12/05/24 20:03 Temperature Pulse Rate 69 64 61 Respiratory Rate 16 Blood Pressure Pulse Oximetry Oxygen Delivery Oxygen Flow Rate 12/05/24 21:03 12/05/24 21:03 12/05/24 21:05 Temperature 36.8 C Pulse Rate 58 L 66 Respiratory Rate 20 20 Blood Pressure 117/59 L Pulse Oximetry 95 98 Oxygen Delivery High Flow Nasal Cannula Oxygen Flow Rate 3 12/05/24 21:15 12/05/24 21:15 12/05/24 21:38 Temperature Pulse Rate 60 66 Respiratory Rate 20 Blood Pressure Pulse Oximetry 95 Oxygen Delivery High Flow Nasal Cannula Oxygen Flow Rate 3 12/05/24 21:39 12/05/24 23:13 12/05/24 23:13 Temperature Pulse Rate 58 L 58 L Respiratory Rate 15 15 Blood Pressure Pulse Oximetry 98 98 Oxygen Delivery High Flow Nasal Cannula Oxygen Flow Rate 3 12/06/24 00:02 12/06/24 03:04 12/06/24 03:04 Temperature Pulse Rate 57 L 52 L 52 L Respiratory Rate 16 16 Blood Pressure Pulse Oximetry 95 Oxygen Delivery BiPAP Oxygen Flow Rate 12/06/24 03:12 12/06/24 04:03 12/06/24 05:29 Temperature 36.4 C Pulse Rate 54 L 60 62 Respiratory Rate 16 18 Blood Pressure 168/84 H Pulse Oximetry 97 Oxygen Delivery Oxygen Flow Rate 12/06/24 07:37 12/06/24 07:37 12/06/24 07:57 Temperature Pulse Rate 48 L 48 L 54 L Respiratory Rate 16 16 20 Blood Pressure Pulse Oximetry 96 Oxygen Delivery BiPAP Oxygen Flow Rate 12/06/24 08:00 12/06/24 08:17 Temperature 35.8 C L Pulse Rate 59 L Respiratory Rate 15 Blood Pressure 121/67 Pulse Oximetry 96 98 Oxygen Delivery Nasal Cannula Oxygen Flow Rate 3 Intake/Output Intake/Output: Intake & Output 12/03/24 12/04/24 12/05/24 04/15/25 23:59 23:59 23:59 23:59 Intake Total 1125.5 1872.2 2000 300 Output Total 0 1800 3050 1000 Balance -924.5 72.2 -1050 -700 Meds/Results Medications: Active Medications Generic Name Dose Route Start Last Admin Trade Name Freq PRN Reason Stop Dose Admin Acetaminophen 650 mg 12/02/24 03:29 Acetaminophen 325 Mg Tablet PO Q4H PRN Mild Pain (1-3) or Fever Amiodarone HCl 200 mg 12/04/24 09:00 12/05/24 16:17 Amiodarone Hcl 200 Mg Tablet PO 200 mg BID YODIT Administration Amitriptyline HCl 10 mg 12/02/24 21:00 12/05/24 22:41 Amitriptyline Hcl 10 Mg Tablet PO 10 mg HS YODIT Administration Azithromycin 500 mg 12/06/24 09:00 Azithromycin 250 Mg Tablet PO 12/08/24 23:59 DAILY YODIT Duloxetine HCl 40 mg 12/05/24 09:00 12/05/24 22:40 Duloxetine Hcl 20 Mg Capsule.Dr PO 40 mg Q12HR YODIT Administration Escitalopram Oxalate 20 mg 12/02/24 09:00 12/05/24 09:18 Escitalopram Oxalate 10 Mg Tablet PO 20 mg DAILY YODIT Administration Ferrous Sulfate 325 mg 12/02/24 09:00 12/05/24 16:18 Ferrous Sulfate [address] PO 325 mg BID YODIT Administration Furosemide 20 mg 12/06/24 09:00 Furosemide 20 Mg Tablet PO BID YODIT Guaifenesin/Dextromethorphan 10 ml 12/02/24 03:29 Guaifenesin/Dextromethorphan 10 Ml Udc PO Q4H PRN Cough Heparin Sodium (Porcine) 5,000 units 12/02/24 06:00 12/06/24 05:26 Heparin Sodium 5,000 Units/Ml Vial SUB-Q 5,000 units Q8HR YODIT Administration Piperacillin/Tazobactam/Dextrose 3.375 gm in 50 mls @ 100 mls/hr 12/02/24 04:00 12/06/24 05:27 Zosyn 3.375 Gm/Ns 50 Ml IVPB 12/08/24 23:59 100 mls/hr Q6HR YODIT Administration Ipratropium [place] 0.5 mg 12/03/24 12:00 12/06/24 07:36 Ipratropium Br 0.02% Inh Soln 0.5 Mg/2.5 Ml Vial INHALATION 0.5 mg Q4HRT YODIT Administration Levalbuterol HCl 1.25 mg 12/04/24 12:00 12/06/24 07:36 Levalbuterol Neb 1.25 Mg/3 Ml INHALATION 1.25 mg Q4HRT YODIT Administration Melatonin 5 mg 12/02/24 03:29 12/04/24 21:48 Melatonin 5 Mg Tablet PO 5 mg HS PRN Administration Insomnia Melatonin 5 mg 12/02/24 11:06 12/05/24 22:39 Melatonin 5 Mg Tablet PO 5 mg HS PRN Administration Insomnia Metoprolol Tartrate 100 mg 12/04/24 09:00 12/05/24 21:38 Metoprolol Tartrate 50 Mg Tab PO 100 mg Q12HR YODIT Administration Montelukast Sodium 10 mg 12/03/24 09:00 12/05/24 09:18 Montelukast Sodium 10 Mg Tablet PO 10 mg DAILY YODIT Administration Ondansetron HCl 4 mg 12/02/24 00:29 Ondansetron Inj 4 Mg/2 Ml Vial IV PUSH Q4H PRN Nausea Pantoprazole Sodium 40 mg 12/02/24 09:00 12/05/24 21:39 Pantoprazole 40 Mg Tablet PO 40 mg Q12HR YODIT Administration Potassium Chloride 20 meq 12/03/24 09:00 12/05/24 09:16 Potassium Chloride 20 Meq Packet (For Liquid) PO 20 meq DAILY YODIT Administration Prednisone 40 mg 12/03/24 08:00 12/06/24 08:04 Prednisone 20 Mg Tablet PO 40 mg DAILY@0800 YODIT Administration Quetiapine Fumarate 25 mg 12/02/24 21:00 12/05/24 21:39 Quetiapine Fumarate 25 Mg Tablet PO 25 mg HS YODIT Administration Ropinirole HCl 4 mg 12/05/24 22:10 12/05/24 22:43 Ropinirole Hcl 1 Mg Tablet PO 4 mg HS YODIT Administration Topiramate 200 mg 12/02/24 09:00 12/05/24 21:39 Topiramate 100 Mg Tablet PO 200 mg Q12HR YODIT Administration Trazodone HCl 50 mg 12/02/24 21:00 12/05/24 21:39 Trazodone Hcl 50 Mg Tablet PO 50 mg HS YODIT Administration Radiology Results: ITS Impressions Chest CTA 12/02/24 15:44 IMPRESSION: 1. No pulmonary embolism. 2. Bilateral basal atelectasis versus pneumonia. Clinical correlation advised. Venous Doppler Study 12/02/24 16:23 IMPRESSION: 1. Patent bilateral upper extremity veins. No evidence of venous thrombosis. Chest X-Ray 12/05/24 07:59 Impression: Probable minimal bibasilar pulmonary edema with discoid left basilar atelectasis. Labs Labs: Laboratory Results - last 24 hr 12/06/24 05:58 WBC 8.6 RBC 3.64 L Hgb 9.6 L Hct 33.7 L MCV 92.6 MCH 26.4 MCHC 28.5 L RDW 14.8 H Plt Count 232 MPV 9.6 Immature Gran % (Auto) 0.9 H Neut % (Auto) 54.3 Lymph % (Auto) 33.9 [place] % (Auto) 9.2 H Eos % (Auto) 1.5 Baso % (Auto) 0.2 Lymph # (Auto) 2.91 [place] # (Auto) 0.8 H Eos # (Auto) 0.1 Baso # (Auto) 0.0 Abs Immat Gran (auto) 0.08 H Absolute Neuts (auto) 4.7 Absolute Nucleated RBC 0.000 Band Neutrophils % Not Reportable Nucleated RBC % 0.0 Platelet Estimate Adequate Hypochromasia 1+ Schistocytes None seen Sodium 138 Potassium 3.5 Chloride 101 Carbon Dioxide 29 Anion Gap 8 BUN 25 H Creatinine 1.37 H Estim Creat Clear Calc 48 Estimated GFR 39 L Glucose 94 Calcium 8.8 Total Bilirubin 0.6 AST 23 ALT 52 H Alkaline Phosphatase 75 Total Protein 7.0 Albumin 3.7
[2024-12-06] MEDS: AZITHROMYCIN 250 MG TABLET 500 MG PO (09:38)
[2024-12-06] MEDS: METOPROLOL TARTRATE 50 MG TAB 100 MG PO ×2 (09:40→21:15)
[2024-12-06] MEDS: FERROUS SULFATE 325 MG TABLET DR PO ×2 (09:41→17:06)
[2024-12-06] MEDS: TOPIRAMATE 100 MG TABLET 200 MG PO ×2 (09:41→21:14)
[2024-12-06] MEDS: DULoxetine HCL 20 MG CAPSULE.DR 40 MG PO ×2 (09:42→21:16)
[2024-12-06] MEDS: ESCITALOPRAM OXALATE 10 MG TABLET 20 MG PO (09:43)
[2024-12-06] MEDS: PANTOPRAZOLE 40 MG TABLET PO ×2 (09:44→21:16)
[2024-12-06] MEDS: AMIODARONE HCL 200 MG TABLET PO ×2 (09:45→17:06)
[2024-12-06] MEDS: MONTELUKAST SODIUM 10 MG TABLET PO (09:46)
[2024-12-06] MEDS: POTASSIUM CHLORIDE 20 MEQ PACKET (FOR LIQUID) PO (09:46)
--- NOTE | 2024-12-06 16:12 | PM.IMPN ---
Progress Note: A&P Assessment and Plan (1) Acute on chronic respiratory failure with hypoxia and hypercapnia: Code(s): J96.21 - Acute and chronic respiratory failure with hypoxia; J96.22 - Acute and chronic respiratory failure with hypercapnia Status: Acute Plan COPD exacerbation: Home O2 Discontinued DuoNeb due to tachycardia Started on Xopenex Continue Zosyn and azithromycin Currently on prednisone 40 mg p.o. q.d. Long smoking history Previous exacerbation on 01/14/2024 Multiple comorbid conditions including CHF s/p BiPAP now on baseline oxygen S/p IV methylprednisone 60 mg IV q.8 hours, now on Prednisone 40mg daily Currently on Zosyn Negative for RSV Influenza and COVID CTA negative for pulmonary embolism Ultrasound of upper and lower extremity no evidence of DVT CHF exacerbation BNP 758 ECHO: The left ventricular ejection fraction visually estimated to be 60-60%. Cardiology started Lasix 40mg IV BID but will decrease to 20mg IV BID due to decreasing renal function. Holding Lasix due to worsening renal function. Recent contrast exposure monitor renal function during diuresis echocardiogram ventricular ejection fraction visually estimated to be 60-60%. EKG sinus tachycardia Chest x-ray Pulmonary edema Optimize Scooter inhibitors, beta-blockers, ARNI Daily weights. fluid restriction Strict I&O's elevate/Scooter wrap legs if needed Continue metoprolol succinate to 25 mg p.o. q.d. Optimize blood pressure less than 130/80. Fall risk assessment. A.fib Not taking Eliquis for about 2 years due to previous history of rectus sheath Hematoma ? twice Cardiology following Left atrial appendage occlusion device as OP Lopressor 50 mg q.6 hours Amiodarone S/P Amiodarone 200 mg p.o. b.i.d., metoprolol 100 mg p.o. b.i.d.\ DVT prophylaxis on Eliquis Subjective Date/time seen: 12/06/24 16:12 Interval history: Comfortable at bedside Review of Systems Review of Systems: All systems reviewed & are unremarkable except as noted in HPI and below Exam Const: General: in distress HENMT: Ears: TM's normal bilaterally Face/Nose/Sinus: Normal nares present Eyes: General: appearance normal, both eyes and all related structures Sclera: sclerae normal Pupils: Equal, round and reactive pupils present Neck: Neck: supple Resp: Effort & Inspection: abnormal respiratory effort Auscultation: wheezes and diminished lung sounds bilateral throughout Cardio: Rate: regular rate Skin: General skin exam: normal color Neuro: Cranial nerves: Yes Equal, round and reactive pupils present Motor exam (neuro): 5/5 motor strength present throughout and Normal motor muscle tone present throughout Sensory Exam: normal sensation Extrem: General: normal to inspection Psych: Mental Status: mental status grossly normal Affect: Anxious affect present Objective Data Vital Signs Vital Signs: Vital Signs - 24 hr 12/05/24 16:17 12/05/24 20:03 12/05/24 21:03 Temperature Pulse Rate 64 61 Respiratory Rate Blood Pressure Pulse Oximetry 95 Oxygen Delivery High Flow Nasal Cannula Oxygen Flow Rate 3 12/05/24 21:03 12/05/24 21:05 12/05/24 21:15 Temperature 98.2 F Pulse Rate 58 L 66 Respiratory Rate 20 20 Blood Pressure 117/59 L Pulse Oximetry 98 95 Oxygen Delivery High Flow Nasal Cannula Oxygen Flow Rate 3 12/05/24 21:15 12/05/24 21:38 12/05/24 21:39 Temperature Pulse Rate 60 66 Respiratory Rate 20 Blood Pressure Pulse Oximetry 98 Oxygen Delivery High Flow Nasal Cannula Oxygen Flow Rate 3 12/05/24 23:13 12/05/24 23:13 12/06/24 00:02 Temperature Pulse Rate 58 L 58 L 57 L Respiratory Rate 15 15 Blood Pressure Pulse Oximetry 98 Oxygen Delivery Oxygen Flow Rate 12/06/24 03:04 12/06/24 03:04 12/06/24 03:12 Temperature Pulse Rate 52 L 52 L 54 L Respiratory Rate 16 16 16 Blood Pressure Pulse Oximetry 95 Oxygen Delivery BiPAP Oxygen Flow Rate 12/06/24 04:03 12/06/24 05:29 12/06/24 07:37 Temperature 97.6 F Pulse Rate 60 62 48 L Respiratory Rate 18 16 Blood Pressure 168/84 H Pulse Oximetry 97 96 Oxygen Delivery BiPAP Oxygen Flow Rate 12/06/24 07:37 12/06/24 07:57 12/06/24 08:00 Temperature Pulse Rate 48 L 54 L Respiratory Rate 16 20 Blood Pressure Pulse Oximetry 96 Oxygen Delivery Nasal Cannula Oxygen Flow Rate 3 12/06/24 08:00 12/06/24 08:00 12/06/24 08:17 Temperature 96.5 F L Pulse Rate 62 61 59 L Respiratory Rate 15 Blood Pressure 121/67 Pulse Oximetry 94 98 Oxygen Delivery Nasal Cannula Oxygen Flow Rate 3 12/06/24 12:00 12/06/24 13:40 12/06/24 13:40 Temperature Pulse Rate 63 61 61 Respiratory Rate 20 20 Blood Pressure Pulse Oximetry 95 Oxygen Delivery Nasal Cannula Oxygen Flow Rate 3 12/06/24 14:00 12/06/24 14:01 Temperature 96.4 F L Pulse Rate 61 65 Respiratory Rate 18 20 Blood Pressure 132/57 L Pulse Oximetry 96 Oxygen Delivery Oxygen Flow Rate Intake/Output Intake/Output: Intake & Output 12/03/24 12/04/24 12/05/24 12/06/24 23:59 23:59 23:59 23:59 Intake Total 1125.5 1872.2 2000 636 Output Total 2050 1800 3050 1000 Balance -924.5 72.2 -1050 -364 Meds/Results Medications: Active Medications Generic Name Dose Route Start Last Admin Trade Name Freq PRN Reason Stop Dose Admin Acetaminophen 650 mg 12/02/24 03:29 Acetaminophen 325 Mg Tablet PO Q4H PRN Mild Pain (1-3) or Fever Amiodarone HCl 200 mg 12/04/24 09:00 12/06/24 09:45 Amiodarone Hcl 200 Mg Tablet PO 200 mg BID YODIT Administration Amitriptyline HCl 10 mg 12/02/24 21:00 12/05/24 22:41 Amitriptyline Hcl 10 Mg Tablet PO 10 mg HS YODIT Administration Duloxetine HCl 40 mg 12/05/24 09:00 12/06/24 09:42 Duloxetine Hcl 20 Mg Capsule.Dr PO 40 mg Q12HR YODIT Administration Escitalopram Oxalate 20 mg 12/02/24 09:00 12/06/24 09:43 Escitalopram Oxalate 10 Mg Tablet PO 20 mg DAILY YODIT Administration Ferrous Sulfate 325 mg 12/02/24 09:00 12/06/24 09:41 Ferrous Sulfate [address] PO 325 mg BID YODIT Administration Furosemide 20 mg 12/06/24 09:00 Furosemide 20 Mg Tablet PO BID YODIT Guaifenesin/Dextromethorphan 10 ml 12/02/24 03:29 Guaifenesin/Dextromethorphan 10 Ml Udc PO Q4H PRN Cough Heparin Sodium (Porcine) 5,000 units 12/02/24 06:00 12/06/24 14:10 Heparin Sodium 5,000 Units/Ml Vial SUB-Q 5,000 units Q8HR YODIT Administration Piperacillin/Tazobactam/Dextrose 3.375 gm in 50 mls @ 100 mls/hr 12/02/24 04:00 12/06/24 11:47 Zosyn 3.375 Gm/Ns 50 Ml IVPB 12/08/24 23:59 Infused Q6HR YODIT Infusion Ipratropium [place] 0.5 mg 12/06/24 14:00 12/06/24 13:40 Ipratropium Br 0.02% Inh Soln 0.5 Mg/2.5 Ml Vial INHALATION 0.5 mg Q6HRT YODIT Administration Levalbuterol HCl 1.25 mg 12/06/24 14:00 12/06/24 13:39 Levalbuterol Neb 1.25 Mg/3 Ml INHALATION 1.25 mg Q6HRT YODIT Administration Melatonin 5 mg 12/02/24 11:06 12/05/24 22:39 Melatonin 5 Mg Tablet PO 5 mg HS PRN Administration Insomnia Metoprolol Tartrate 100 mg 12/04/24 09:00 12/06/24 09:40 Metoprolol Tartrate 50 Mg Tab PO 100 mg Q12HR YODIT Administration Montelukast Sodium 10 mg 12/03/24 09:00 12/06/24 09:46 Montelukast Sodium 10 Mg Tablet PO 10 mg DAILY YODIT Administration Ondansetron HCl 4 mg 12/02/24 00:29 Ondansetron Inj 4 Mg/2 Ml Vial IV PUSH Q4H PRN Nausea Pantoprazole Sodium 40 mg 12/02/24 09:00 12/06/24 09:44 Pantoprazole 40 Mg Tablet PO 40 mg Q12HR YODIT Administration Potassium Chloride 20 meq 12/03/24 09:00 12/06/24 09:46 Potassium Chloride 20 Meq Packet (For Liquid) PO 20 meq DAILY YODIT Administration Prednisone 40 mg 12/03/24 08:00 12/06/24 08:04 Prednisone 20 Mg Tablet PO 40 mg DAILY@0800 YODIT Administration Quetiapine Fumarate 25 mg 12/02/24 21:00 12/05/24 21:39 Quetiapine Fumarate 25 Mg Tablet PO 25 mg HS YODIT Administration Ropinirole HCl 4 mg 12/05/24 22:10 12/05/24 22:43 Ropinirole Hcl 1 Mg Tablet PO 4 mg HS YODIT Administration Topiramate 200 mg 12/02/24 09:00 12/06/24 09:41 Topiramate 100 Mg Tablet PO 200 mg Q12HR YODIT Administration Trazodone HCl 50 mg 12/02/24 21:00 12/05/24 21:39 Trazodone Hcl 50 Mg Tablet PO 50 mg HS YODIT Administration Radiology Results: ITS Impressions Chest CTA 12/02/24 15:44 IMPRESSION: 1. No pulmonary embolism. 2. Bilateral basal atelectasis versus pneumonia. Clinical correlation advised. Venous Doppler Study 12/02/24 16:23 IMPRESSION: 1. Patent bilateral upper extremity veins. No evidence of venous thrombosis. Chest X-Ray 12/05/24 07:59 Impression: Probable minimal bibasilar pulmonary edema with discoid left basilar atelectasis. Labs Labs: Laboratory Results - last 24 hr 12/06/24 05:58 WBC 8.6 RBC 3.64 L Hgb 9.6 L Hct 33.7 L MCV 92.6 MCH 26.4 MCHC 28.5 L RDW 14.8 H Plt Count 232 MPV 9.6 Immature Gran % (Auto) 0.9 H Neut % (Auto) 54.3 Lymph % (Auto) 33.9 [place] % (Auto) 9.2 H Eos % (Auto) 1.5 Baso % (Auto) 0.2 Lymph # (Auto) 2.91 [place] # (Auto) 0.8 H Eos # (Auto) 0.1 Baso # (Auto) 0.0 Abs Immat Gran (auto) 0.08 H Absolute Neuts (auto) 4.7 Absolute Nucleated RBC 0.000 Band Neutrophils % Not Reportable Nucleated RBC % 0.0 Platelet Estimate Adequate Hypochromasia 1+ Schistocytes None seen Sodium 138 Potassium 3.5 Chloride 101 Carbon Dioxide 29 Anion Gap 8 BUN 25 H Creatinine 1.37 H Estim Creat Clear Calc 48 Estimated GFR 39 L Glucose 94 Calcium 8.8 Total Bilirubin 0.6 AST 23 ALT 52 H Alkaline Phosphatase 75 Total Protein 7.0 Albumin 3.7
[2024-12-06 17:29] LABS: Alveolar/Arterial O2 Gradient 132.9 mmHg; Base Excess ABG 2.4 mEq/l (+/-2.0); Fractional Inspired Oxygen 40 %; Oxygen Content ABG 15.2 %vol (16.0-22.0); Oxygen Saturation ABG 97.3 % (95.0-100.0); Oxyhemoglobin 97.1 % THb (90.0-100.0); PCO2 ABG 47.8 mmHg (35.0-45.0); PO2 ABG 97.3 mmHg (80.0-100.0); PO2 FiO2 Ratio Arterial Blood 2.43 %; Site Drawn LEFT RADIAL; pH ABG 7.385 (7.350-7.450)
[2024-12-06 17:30] LABS: Device NASAL CANNULA; Modified Allen's Test Pass
[2024-12-06] MEDS: rOPINIRole HCL 1 MG TABLET 4 MG PO (21:13)
[2024-12-06] MEDS: traZODone HCL 50 MG TABLET PO (21:13)
[2024-12-06] MEDS: AMITRIPTYLINE HCL 10 MG TABLET PO (21:14)
[2024-12-06] MEDS: QUEtiapine FUMARATE 25 MG TABLET PO (21:15)
[2024-12-06] MEDS: MELATONIN 5 MG TABLET PO (21:28)
[2024-12-07] VITALS (22 sets, daily range): BP systolic 121–156; BP diastolic 56–58; PULSE 54–69; RESP 16–20; TEMP 36.1–36.9; O2SAT 93–100
[2024-12-07] MEDS: LEVALBUTEROL NEB 1.25 MG/3 ML INHALATION ×4 (02:20→20:05)
[2024-12-07] MEDS: IPRATROPIUM BR 0.02% INH SOLN 0.5 MG/2.5 ML VIAL INHALATION ×4 (02:20→20:05)
[2024-12-07] MEDS: PIPERACILLN/TAZ 3.375GM/NS50ML 3.375 GM/50 ML BAG IVPB ×3 (06:40→17:07)
[2024-12-07] MEDS: HEPARIN SODIUM 5,000 UNITS/ML VIAL 5000 UNITS SUB-Q ×2 (06:41→21:03)
[2024-12-07 07:03] LABS: Basophils Percent Auto 0.3 % (0.2-1.2); Eosinophils Absolute Auto 0.2 K/mm3 (0-0.3); Eosinophils Percent Auto 1.8 % (0-4.4); Hematocrit 33.7 % (37.0-47.0); Immature Granulocyte Absolute 0.14 K/mm3 (0.00-0.031); Immature Granulocyte Percent A 1.4 % (0-0.5); Lymphocytes Absolute Auto 3.16 K/mm3 (0.9-3.2); Mean Corpuscular HGB Conc 29.7 g/dl (32-36); Mean Corpuscular Volume 90.8 fl (80-100); Mean Platelet Volume 9.7 fl (7.4-10.4); Monocytes Absolute Auto 0.9 K/mm3 (0.1-0.6); Monocytes Percent Auto 9.1 % (2.6-8.5); Neutrophils Absolute Auto 5.8 K/mm3 (1.3-6.7); Neutrophils Percent Auto 56.4 % (45.5-73.1); Platelet Count Result 263 k/mm3 (150-375); Red Blood Count 3.71 M/mm3 (4.2-5.4); Red Cell Distribution Width 14.8 % (11.5-14.5); White Blood Count 10.2 K/mm3 (4.5-10.0)
[2024-12-07 07:24] LABS: Alanine Aminotransferase 53 U/L (6-35); Albumin Level 3.7 g/dL (3.5-5.1); Alkaline Phosphatase 70 U/L (38-126); Anion Gap 8 mmol/L (4-12); Aspartate Amino Transferase 26 U/L (14-36); Bilirubin,Total 0.5 mg/dL (0.2-1.3); Blood Urea Nitrogen 25 mg/dL (7-17); Calcium 8.9 mg/dL (8.4-10.2); Carbon Dioxide 31 mmol/L (22-30); Chloride 101 mmol/L (98-107); Estimated CRCL calculation 39 ml/min; Estimated Glomerular Filt Rate 30; Glucose 105 mg/dL (65-110); Magnesium 2.3 mg/dL (1.6-2.3); Potassium 3.7 mmol/L (3.4-5.0); Sodium 140 mmol/L (137-145)
[2024-12-07 07:54] LABS: Hypochromasia 1+; Platelet Estimate Adequate (Adequate); Schistocytes None Seen
[2024-12-07] MEDS: POTASSIUM CHLORIDE 20 MEQ PACKET (FOR LIQUID) PO (08:38)
[2024-12-07] MEDS: FERROUS SULFATE 325 MG TABLET DR PO ×2 (08:41→17:08)
[2024-12-07] MEDS: METOPROLOL TARTRATE 50 MG TAB 100 MG PO ×2 (08:41→21:00)
[2024-12-07] MEDS: DULoxetine HCL 20 MG CAPSULE.DR 40 MG PO ×2 (08:42→21:01)
[2024-12-07] MEDS: PANTOPRAZOLE 40 MG TABLET PO ×2 (08:42→21:00)
[2024-12-07] MEDS: MONTELUKAST SODIUM 10 MG TABLET PO (08:42)
[2024-12-07] MEDS: ESCITALOPRAM OXALATE 10 MG TABLET 20 MG PO (08:43)
[2024-12-07] MEDS: predniSONE 20 MG TABLET 40 MG PO (08:43)
[2024-12-07] MEDS: AMIODARONE HCL 200 MG TABLET PO ×2 (08:43→17:08)
[2024-12-07] MEDS: TOPIRAMATE 100 MG TABLET 200 MG PO ×2 (08:44→21:00)
--- NOTE | 2024-12-07 08:58 | P.PNPL_ITS ---
Progress Note: A&P Assessment and Plan (1) Chronic obstructive pulmonary disease: Code(s): J44.9 - Chronic obstructive pulmonary disease, unspecified Status: Chronic Assessment and Plan: Regarding her COPD the patient has been on oxygen for the last 5 years. I have no PFTs. She is using 5 L at rest with home saturations 92-96%. First CT scan in our system is from 08/27/2022 and this shows mild apical predominant centrilobular emphysema. Repeat CT angiogram of the chest on 12/02/2024 demonstrates mild apical predominant centrilobular emphysema. She is using 6 L with activity but even with walking room to room her saturations go into the mid 70s. Patient is maintained on trelegy inhaler but she does not use a because of the taste. Patient takes montelukast 10 and albuterol p.r.n.. Patient tells me she wheezes every day when she takes rescue albuterol at home it relieves her wheezing for 1-2 minutes. Patient follows with a ride attendant in [place] Dr. Zamorano. 12/01/2024: White blood cell count 14.8, eosinophils 0.6%= 89 per micro L, Patient has chronic hypercarbic respiratory failure from her COPD with a blood gas of 7.34/65/103 and a serum bicarbonate greater than 40. She would benefit from a noninvasive ventilation. Patient was placed on BiPAP but could not tolerate these settings because the flow in pressures were too high. I will initiate the process for a home noninvasive ventilator with the AVAPS mode through her [employer] company for oxygen which is [employer]. 12/02/24: patient with a history of COPD, worsening cough, shortness of breath and hypoxemia. She says she has had no change in her phlegm production. No wheezing currently. Plan: will treat the patient for COPD exacerbation and will continue Solu- Medrol 60 Q 8. Will change to prednisone 40 mg p.o. q.day on 12/03/2024. Continue DuoNebs q.6 hours. Continue montelukast 10. Patient has a history of UTI and was started on ciprofloxacin on 12/01/2024. Patient currently on Zosyn. Will add azithromycin. Goal saturation 90-94%. Adjust study oxygen accordingly. I will send respiratory pathogen panel, mycoplasma IgM antibody, urine pneumococcal, urine Legionella studies looking for infectious etiology. I will send alpha 1 anti trypsin genotype and level looking for genetic predisposition for her COPD. Patient has a positive D-dimer and I will check a CT angiogram of the chest, she has swelling of the lower extremities and upper extremities bilaterally and I will get upper and lower extremity Dopplers. Echocardiogram has been ordered. Later in the day patient had a CT angiogram of the chest which was negative for PE, mild apical predominant centrilobular emphysema, posterior lower lobe atelectasis versus infiltrate right greater than left. No pleural effusions. Upper and lower extremity Dopplers were negative for DVT. Echocardiogram with LVEF 60 65%, RV was dilated with normal systolic function. Left atrium normal, right atrium normal, RVSP 27 12/03/2024: Patient told me she slept with the noninvasive ventilator in the AVAPS last night and did well. She said she slept well and was well rested. Currently she is in AFib RVR on 5 of Dilt drip but her heart rate remains 160. She says she has no shortness of breath but just feels bad. Her saturations on the 5 L are 94%. She is in no respiratory distress. She had a fever last night. White blood cell count 12.1, creatinine 1.29, BNP 972. Procalcitonin 0.3. She received 1 dose of Lasix yesterday. Plan: she has no wheezing at this time. Continue prednisone 40 mg p.o. q.day, day 2 steroids. I will discontinue all beta agonists as she has a tachyarrhythmia. I will increase her ipratropium nebulizers to q.[address] scan shows small posterior lower lobe atelectasis versus infiltrate, she had a fever, procalcitonin is low and she has a leukocytosis. She is on Zosyn and azithromycin for possible pneumonia. I am not convinced this is pneumonia but will continue treatment for now while other etiologies of her fever and leukocytosis are being worked up. 12/04/24: Patient feels better than she did yesterday. Overall she tells me she is breathing normal. She denies cough, phlegm or hemoptysis. She is afebrile. White blood cell count 10.2, creatinine 1.36. She diuresed 1.1 L yesterday and cumulative she has diuresed 2.4 L. Her weight today is 121.7 with an admission weight of 121.8. She is wheezing on exam. On amiodarone drip heart rate over the last 12 hours 60 to 74. Plan: Patient has wheezing on exam is but denies shortness of breath. Oxygenation continues to improve. She is in no respiratory distress. I will continue prednisone 40 mg p.o. q.day, day 3 of steroids. I will continue ipratropium 0.5 mg nebulized q.4 hours and add levalbuterol 1.25 mg nebulized Q 4 hours. currently patient is on Zosyn and azithromycin for possible pneumonia, both day 3. Will continue. AFib RVR, and fluid overload managed per hospitalist and bead forming machine set up operator teams. 12/05/24: Patient continues to improve. Patient tells me she is breathing back at her normal. She denies cough, phlegm, hemoptysis. Patient slept well with a fullface mask in the hospital noninvasive ventilator. Currently she is on 3 L nasal cannula saturations 92%. White blood cell count 9.2, creatinine 1.51. she diuresed 177 mL yesterday and cumulative diuresis 3.1 L since admission. Her weight today is 120.1 kg. BNP has decreased from 972 on 12/03/2024 to a value of 832 today. Chest x-ray today with cardiomegaly, mild perihilar congestion, discoid atelectasis at the bases and no pleural effusion. plan: Patient is wheezing but tells me she wheezes every day. Continue prednisone 40 mg p.o. q.day, day 4 steroids. Continue ipratropium and levalbuterol nebulizers q.4 hours. Continue Zosyn and azithromycin both day 4. AFib with RVR, fluid overload managed by hospitalist and bead forming machine set up operator team. Creatinine increased to 1.51 will consider decreasing diuretics. 12/06/24: Patient tells me she continues to improve. She has tells me that she is breathing well back to her baseline. She denies cough, phlegm, hemoptysis. She is afebrile. When she walks she says she has her usual dyspnea on exertion. White blood cell count 8.6, creatinine 1.37. Yesterday she diuresed 1.05 L, with cumulative diuresis since admission 3.3 L. No weight was measured today. Plan: Patient with mild expiratory wheezes. Continue prednisone 40 mg p.o. q.day, day 5 of steroids. Will decrease her ipratropium and levalbuterol nebulizers to Q 6 hours. Continue Zosyn and azithromycin, both day 5. Will discontinue azithromycin after today's dose. Patient auto diuresed yesterday with no Lasix. Creatinine is improved. 12/07/24: overall the patient is improved from admission and tells me she is breathing a little worse than yesterday. She has a cough that is nonproductive with no phlegm and no hemoptysis. She is afebrile. Patient did some walking in the hallways yesterday, 52 ft, and says she is walking better yesterday than she has in the last 3 years. she walked with physical therapy on 3 L nasal cannula and her sats decreased to 88%. Currently she is on 3 L nasal cannula with saturations 98%. I decreased her to 2 L nasal cannula her saturations are 93%. White blood cell count 10.2, creatinine 1.69. Yesterday she was positive 676 mL cumulative she has diuresed 1.9 L since admission. Her weight today is 120.2 kg with an admission weight of 121.8. Last night she was post to wear 5 L nasal cannula and have an overnight oximetry but inadvertently got placed on noninvasive ventilation to approximately 2:30 in the morning. after 230 she was placed on 5 L and she had 1 desaturation for 18 minutes on these settings. Plan: Patient had no wheezing today. She says she is breathing little worse than yesterday and I will continue prednisone 40 mg a day today, day 6 of steroids. Continue ipratropium and levalbuterol Nebs q.6. patient tells me she is having difficulty expectorating and I will add guaifenesin 1200 mg p.o. b.i.d.. Goal saturation 90-94%. Adjust oxygen accordingly. Continue Zosyn day 6 and I will plan on discontinuing after tomorrow's dose. If the patient remains clinically stable consider discharge on 12/08/2024 on these pulmonary medications: Beta agonist and muscarinic antagonist that insurance will cover (Anoro Ellipta 62.5/25 at 1 puff Q day, stiolto respimat 2.5/2.5 at 1 puff BID, bevespi aerosphere 9 mcg/4.8 at 2 puffs BID, combivent respimat at 2 puffs Q 4 HR or separate albuterol and atrovent inhalers at 2 puffs Q 4 HR) rescue albuterol 2 puffs q.4 hours p.r.n. shortness of breath montelukast 10 mg p.o. q.day Guaifenesin 600 mg p.o. b.i.d. p.r.n. congestion oxygen per formal home O2 assessment on the day of discharge. Oxygen at night guided by overnight oximetry tonight Discussed with Dr. Crawford, will follow with you. (2) Acute hypercapnic respiratory failure: Code(s): J96.02 - Acute respiratory failure with hypercapnia Status: Acute Assessment and Plan: 12/02/2024: When I enter the room the patient was on BiPAP in no respiratory distress. Patient told me the machine and the breathing was uncomfortable and that she would not be able to sleep with this. I changed her to noninvasive ventilator with the AVAS mode an adjusted settings to comfort resulting in a rate of 14, tidal volume 500, EPAP 5, minimal inspiratory pressure 6, maximal inspiratory pressure 25, inspiratory time 1.0, rise of 1 which is are fast this and it and 40% FiO2. She was able to tolerate these settings. She felt she could come off BiPAP and I placed her on 5 L nasal cannula and after 12 minutes her saturations were 92%. Plan: Patient can use noninvasive ventilation with the AVAPS mode p.r.n. during the day but should wear this at night. I will perform an overnight oximetry and ABG prior to removal on these settings. Later in the day initiated home noninvasive ventilation with [employer]. 12/03/24: Patient slept with the noninvasive ventilator last night and said she did well and was able to sleep. On the noninvasive ventilator with the AVAPS settings as above and 40% FiO2 the patient had an overnight oximetry with recording duration of 7 hours and 45 minutes. Average saturation 95%. Low saturation 89%. Time with saturation less than or equal to 88% was 0 minutes. Oxygen desaturation index 2.2. Patient an ABG prior to removal with a pH of 7.43/58/101. Plan: Current noninvasive ventilation with the AVAPS mode rate of 14, tidal volume 500, EPAP 5, minimal inspiratory pressure 6, maximal inspiratory pressure 25, inspiratory time 1.0, rise of 1 which is are fast this and it and 40% FiO2, provide adequate ventilation and oxygenation. I will place her on AVAPS mode with 32% FiO2 tonight and repeat an overnight oximetry. 12/04/24: Patient wore the noninvasive ventilator last night with 32% FiO2. She had an overnight oximetry on these settings with recording duration of 7 hours and 2 minutes, average saturation 96%. Low saturation 85%. Time with saturation less than or equal to 88% was 3 minutes, oxygen desaturation index 3.3. Plan: current noninvasive ventilation with the AVAPS settings above and 32% FiO2 provide adequate ventilation and oxygenation and will continue. 12/05/24: Patient continues to improve. Patient tells me she is breathing back at her normal. She denies cough, phlegm, hemoptysis. Patient slept well with a fullface mask in the hospital noninvasive ventilator. Currently she is on 3 L nasal cannula saturations 92%. Plan: Discussed with sales and events coordinator and waiting for home noninvasive ventilation through [facility]. Later in the day filled out an order for for noninvasive ventilation with [facility]: I have apps-AE with a rate of 14, EPAP minimum 5, EPAP maximum 20, pressure support minimum 5, pressure support maximum 20, inspiratory time 0.5- 1.5 and 3 L bleed in. 12/06/24: She slept with the hospital noninvasive ventilator in the fullface mask last night. Plan: Discussed with respiratory care, awaiting to hear updates from [facility] and her insurance, [facility], regarding her home noninvasive ventilator set up. Later in the day patient had an ABG on 5 L nasal cannula the pH of 7.39/48/97. No evidence of chronic hypercarbic respiratory failure that will qualify for her for a noninvasive ventilator 12/07/24: Last night she was supposed to wear 5 L nasal cannula and have an overnight oximetry but inadvertently got placed on noninvasive ventilation to approximately 2:30 in the morning. after 230 she was placed on 5 L and she had 1 desaturation for 18 minutes on these settings. Plan: Patient with improved blood gas and no longer has chronic elevated pCO2 that will qualify her for home noninvasive ventilator. Will perform overnight oximetry on 5 L tonight. Subjective Date/time seen: 12/07/24 08:58 Interval history: 12/02/2024: This is a new pulmonary consult for acute on chronic hypercarbic and hypoxemic respiratory failure. 64-year-old with a history of hypertension, restless legs syndrome, anxiety and COPD With chronic hypoxemic respiratory failure on 5 L at rest and 6 L with activity. Regarding her COPD the patient has been on oxygen for the last 5 years. I have no PFTs. She is using 5 L at rest with home saturations 92-96%. For CT scan in our system is from 08/27/2022 and this shows mild apical predominant centrilobular emphysema. She is using 6 L with activity but even with walking room to room her saturations go into the mid 70s. Patient is maintained on trelegy inhaler but she does not use a because of the taste. Patient takes montelukast 10 and albuterol p.r.n.. Patient tells me she has wheezing every day when she takes rescue albuterol it relieves the reason wheezing for approximately 1-2 minutes. Patient follows with a ride attendant in [place] Dr. Zamorano. Patient is currently on BiPAP and family is in the room who aids with history. For the last 2-3 weeks patient has had worsening shortness of breath, wheezing, cough with no phlegm production, swelling of the legs and abdomen. She was diagnosed with the UTI on 12/01/2024 and started on ciprofloxacin. Later the night, She had worsening hypoxemia and yesterday she could not keep her saturations up and presented to the emergency room. in the emergency room her blood pressure was 142/106, heart rate 115, respirations 22 and on 15 L non- rebreather her saturation were 98%. Patient had white blood cell count of 14.8 was 0.6% eosinophils equals 89 per micro L, creatinine 1.16, serum bicarbonate greater than 40, COVID influenza and RSV RT PCR study negative. ABG on 10 L non-rebreather was 7.34/65/103. Procalcitonin was 0.4. BNP was 758. Chest x-ray showed pulmonary congestion with left greater than right interstitial infiltrates. Patient was treated for COPD exacerbation, pneumonia, fluid overload. 12/02/2024: When I enter the room the patient was on BiPAP in no respiratory distress. She was awake communicative and following simple commands. The patient told me she was breathing back to her normal. She complained of some dizziness but denied fever, chills, rigors, wheezing, phlegm production or hemoptysis. She said her coughing is slightly increased compared to her baseline. Patient was on BiPAP rate of 22, pressures 16/8 with tidal volumes 880 inspiratory time 1.0 with a blood gas of 7.40/52/43. patient told me the machine and the breathing was uncomfortable and that she would not be able to sleep with this. I changed her to noninvasive ventilator with the AVAS mode an adjusted settings to comfort resulting in a rate of 14, tidal volume 500, EPAP 5, minimal inspiratory pressure 6, maximal inspiratory pressure 25, inspiratory time 1.0, rise of 1 which is are fast this and it and 40% FiO2. She was able to tolerate these settings. She felt she could come off of the BiPAP and I placed her on 5 L nasal cannula and after 12 minutes her saturations were 92%. Later in the day patient had a CT angiogram of the chest which was negative for PE, mild apical predominant centrilobular emphysema posterior lower lobe atelectasis versus infiltrate right greater than left. No pleural effusions. Upper and lower extremity Dopplers were negative for DVT. Echocardiogram with LVEF 60 65%, RV was dilated with normal systolic function. Left atrium normal, right atrium normal, RVSP 27 12/03/2024: Patient told me she slept with the noninvasive ventilator in the AVAPS last night and did well. She said she slept well and was well rested. Currently she is in AFib RVR on 5 of Dilt drip but her heart rate remains 160. She says she has no shortness of breath but just feels bad. Her saturations on the 5 L are 94%. She is in no respiratory distress. She had a fever last night. White blood cell count 12.1, creatinine 1.29, BNP 972. Procalcitonin 0.3. She received 1 dose of Lasix yesterday. Albuterol and levalbuterol treatments discontinued. given metoprolol and diltiazem for AFib RVR which were unsuccessful and started on amiodarone drip yesterday. On the noninvasive ventilator with the AVAPS settings as above and 40% FiO2 the patient had an overnight oximetry with recording duration of 7 hours and 45 minutes. Average saturation 95%. Low saturation 89%. Time with saturation less than or equal to 88% was 0 minutes. Oxygen desaturation index 2.2. Patient an ABG prior to removal with a pH of 7.43/58/101. 4/: patient feels better than she did yesterday. Overall she tells me she is breathing normal. She denies cough, phlegm or hemoptysis. She is afebrile. White blood cell count 10.2, creatinine 1.36. When I enter the room the patient was on 5 L nasal cannula saturations 97%. I decreased her to 3 L nasal cannula saturations were 92%. She diuresed 1.1 L yesterday and cumulative she has diuresed 2.4 L. Her weight today is 121.7 with an admission weight of 121.8. Patient wore the noninvasive ventilator last night with 32% FiO2. She had an overnight oximetry on these settings with recording duration of 7 hours and 2 minutes, average saturation 96%. Low saturation 85%. Time with saturation less than or equal to 88% was 3 minutes, oxygen desaturation index 3.3. She is wheezing on exam. On amiodarone drip heart rate over the last 12 hours 60 to 74. 4/: Patient continues to improve. Patient tells me she is breathing back at her normal. She denies cough, phlegm, hemoptysis. Patient slept well with a fullface mask in the hospital noninvasive ventilator. Currently she is on 3 L nasal cannula saturations 92%. White blood cell count 9.2, creatinine 1.51. she diuresed 177 mL yesterday and cumulative diuresis 3.1 L since admission. Her weight today is 120.1 kg. BNP has decreased from 972 on 12/03/2024 to a value of 832 today. Chest x-ray today with cardiomegaly, mild perihilar congestion, discoid atelectasis at the bases and no pleural effusion. Later in the day filled out an order for for noninvasive ventilation with [facility]: I have apps-AE with a rate of 14, EPAP minimum 5, EPAP maximum 20, pressure support minimum 5, pressure support maximum 20, inspiratory time 0.5- 1.5 and 3 L bleed in. 12/06/24: Patient tells me she continues to improve. She has tells me that she is breathing well back to her baseline. She denies cough, phlegm, hemoptysis. She is afebrile. She slept with the hospital noninvasive ventilator in the fullface mask last night. When she walks she says she has her usual dyspnea on exertion. White blood cell count 8.6, creatinine 1.37. Yesterday she diuresed 1.05 L, with cumulative diuresis since admission 3.3 L. No weight was measured today. Later in the day patient had an ABG on 5 L nasal cannula the pH of 7.39/48/97. No evidence of chronic hypercarbic respiratory failure that will qualify for her for a noninvasive ventilator 12/07/24: overall the patient is improved from admission and tells me she is breathing a little worse than yesterday. She has a cough that is nonproductive with no phlegm and no hemoptysis. She is afebrile. Patient did some walking in the hallways yesterday, 52 ft, and says she is walking better yesterday than she has in the last 3 years. she walked with physical therapy on 3 L nasal cannula and her sats decreased to 88%. Currently she is on 3 L nasal cannula with saturations 98%. I decreased her to 2 L nasal cannula her saturations are 93%. White blood cell count 10.2, creatinine 1.69. Yesterday she was positive 676 mL cumulative she has diuresed 1.9 L since admission. Her weight today is 120.2 kg with an admission weight of 121.8. Last night she was post to wear 5 L nasal cannula and have an overnight oximetry but inadvertently got placed on noninvasive ventilation to approximately 2:30 in the morning. after 230 she was placed on 5 L and she had 1 desaturation for 18 minutes on these settings. DATA 12/17/2023: CT Scan of the Chest without Contrast: Clinical Indication: Lung cancer screening, nicotine dependence Technique: Contiguous sections were acquired throughout the chest without intravenous contrast. Dose reduction technique was used on this scan by utilizing automated exposure control and iterative reconstruction technique. The dose-length product (DLP) was 341.26 mGy-cm. COMPARISON: 04/06/2023 Findings: Stable enlarged left thyroid lobe. There is no evidence of any significant mediastinal, hilar or axillary lymphadenopathy. Atherosclerotic calcifications of the aorta are present. There is no evidence of pleural or pericardial effusion. There is irregular airspace opacity in the posterior right lower lobe, improved from prior exam, likely representing postinflammatory change, as there is a previous more extensive area of consolidation in this location. Mild emphysema. Images through the upper abdomen reveal no abnormalities. Impression: Lung RADS 2: Benign appearance. 12 month follow-up screening CT advised. 09/10/2022: Echo Summary 1. Technically difficult study with limited views. Regional wall motion assessment limited due to poor endomyocardial border definition despite definity contrast enhancement. 2. Left ventricular chamber dimension is normal. 3. Left ventricular systolic function is normal, estimated at 65-70%. 4. There is mildly increased left ventricular wall thickness. 5. Right ventricular chamber dimension is normal. 6. Right ventricular systolic function is moderately reduced. TAPSE 1.3. 7. There is trace tricuspid valve regurgitation. 8. Mild pulmonary hypertension, estimated pulmonary arterial systolic pressure is 37 mmHg. 9. Normal inferior vena cava with <50% collapse upon inspiration consistent with elevated right atrial pressure, 10 mmHg. 08/28/2022: Summary 1. Left ventricular chamber dimension is normal. 2. Left ventricular systolic function is normal, estimated at 60-65%. 3. The left ventricular diastolic function is grade I diastolic dysfunction. 4. Right ventricular chamber dimension is moderately enlarged. 5. Right ventricular systolic function is normal. 6. There is moderate tricuspid valve regurgitation, which may be underestimated due to the eccentricity of the jet. 7. Dilated inferior vena cava with no collapse upon inspiration consistent with elevated right atrial pressure, 15 mmHg. 8. Pulmonary hypertension with an estimated PASP of 59mmHg. Right Ventricle Right ventricular chamber dimension is moderately enlarged. Right ventricular systolic function is normal. Right Atria Right atrial chamber dimension is normal. Atrial Septum Intact interatrial septum visualized by color flow imaging. 08/27/2022: EXAMINATION: CT chest high resolution wo co DATE: 08/27/2022 16:07 INDICATION: respiratory failure TECHNIQUE: Computed tomography (CT) of the chest was performed without intravenous contrast. Automated exposure control and iterative reconstruction technique were employed. The dose-length product was 818.52 mGy-cm. COMPARISON: X-ray chest 08/27/2022 and CTA chest 07/21/2018. FINDINGS: CHEST: Endotracheal tube terminating 2.5 cm above the maria esther. Thoracic aorta: No significant dilation. Moderate arch calcification. Lung parenchyma and airways: Diffuse tree-in-bud opacities most evident in the r ight lung. Scattered centrilobular nodular opacities measuring up to 11 mm in the right upper lobe. Mild interlobular septal thickening. Bibasilar dependent opacities likely representing atelectasis. Mild emphysematous change. Thoracic inlet, axillae and chest wall: No thyroid or soft tissue mass. No axillary lymphadenopathy. Mediastinum: Mediastinal lymphadenopathy. Dilated central pulmonary arteries as can be seen with pulmonary arterial hypertension. Heart and pericardium: Normal heart size. Aortic valve calcification. No pericardial effusion. Coronary artery calcifications: Mild. Pleura: Trace bilateral pleural fluid. Upper abdomen: No significant finding. Thoracic bones: No acute osseous finding in the chest. IMPRESSION: 1. Tree-in-bud opacities as can be seen with atypical infection (including but not limited to: MAC, TB, fungal), ABPA, airways disease, and less likely aspiration. 2. Nodular opacity in right upper lobe should be followed after the appropriate therapy and cessation of symptoms to ensure resolution. 3. Mediastinal lymphadenopathy. 4. Trace bilateral pleural effusions. 5. Mild interstitial edema. Review of Systems Constitutional: Constitutional: Reports no additional constitutional complaints Eyes: Eyes: Reports no additional eye complaints ENT: Reports system reviewed and no additional complaints, except as documented Cardiovascular: Cardiovascular: Reports no additional cardiovascular complaints Respiratory: Respiratory: Reports no additional respiratory complaints Gastrointestinal: Gastrointestinal: Reports no additional gastrointestinal complaints Musculoskeletal: Musculoskeletal: Reports no additional musculoskeletal complaints Neurologic: Reports system reviewed and no additional complaints, except as documented Psychiatric: Psychiatric: Reports no additional psychiatric complaints Endocrine: Endocrine: Reports no additional endocrine complaints Hematologic/Lymphatic: Hematologic/Lymphatic: Reports no additional hematologic/lymphatic complaints Allergic/Immunologic: Allergic/Immunologic: Reports no additional allergic/immunologic complaints Exam Const: General: cooperative, healthy appearing and comfortable Orientation/consciousness: oriented to person, oriented to place and oriented to time HENMT: Head: normal to inspection Ears: hearing grossly normal bilaterally Eyes: General: appearance normal, both eyes and all related structures Neck: Neck: normal visual inspection Chest: Chest palpation & inspection: normal inspection of the chest Resp: Effort & Inspection: normal respiratory effort and able to speak in complete sentences Auscultation: no crackles, no rales, no rhonchi, wheezes and diminished lung sounds Cardio: Jugular venous distension: no JVD GI: Inspection: normal to inspection Skin: General skin exam: normal color Neuro: General: oriented to person, oriented to place and oriented to time Extrem: General: edema Other: Psych: Appearance: grossly normal Objective Data Vital Signs Vital Signs: Vital Signs - 24 hr 12/06/24 12:00 12/06/24 13:40 12/06/24 13:40 Temperature Pulse Rate 63 61 61 Respiratory Rate 20 20 Blood Pressure Pulse Oximetry 95 Oxygen Delivery Nasal Cannula Oxygen Flow Rate 3 12/06/24 14:00 12/06/24 14:01 12/06/24 16:00 Temperature 35.8 C L Pulse Rate 61 65 62 Respiratory Rate 18 20 Blood Pressure 132/57 L Pulse Oximetry 96 Oxygen Delivery Oxygen Flow Rate 12/06/24 17:06 12/06/24 20:00 12/06/24 20:00 Temperature Pulse Rate 64 62 Respiratory Rate Blood Pressure Pulse Oximetry 97 Oxygen Delivery Nasal Cannula Oxygen Flow Rate 3 12/06/24 20:23 12/06/24 20:47 12/06/24 21:15 Temperature Pulse Rate 63 63 63 Respiratory Rate 18 18 Blood Pressure Pulse Oximetry Oxygen Delivery Oxygen Flow Rate 12/06/24 22:00 12/06/24 22:40 12/07/24 00:00 Temperature 36.3 C L Pulse Rate 62 57 L Respiratory Rate 18 15 Blood Pressure 124/89 Pulse Oximetry 97 Oxygen Delivery BiPAP Oxygen Flow Rate 12/07/24 02:20 12/07/24 04:00 12/07/24 06:00 Temperature 36.3 C L Pulse Rate 56 L 54 L 60 Respiratory Rate 20 18 Blood Pressure 130/58 L Pulse Oximetry 100 Oxygen Delivery Oxygen Flow Rate 12/07/24 07:27 12/07/24 07:27 12/07/24 07:39 Temperature Pulse Rate 62 62 60 Respiratory Rate 20 20 20 Blood Pressure Pulse Oximetry 99 Oxygen Delivery Nasal Cannula Oxygen Flow Rate 3 12/07/24 08:41 12/07/24 08:43 Temperature Pulse Rate 58 L 58 L Respiratory Rate Blood Pressure Pulse Oximetry Oxygen Delivery Oxygen Flow Rate Intake/Output Intake/Output: Intake & Output 12/04/24 12/05/24 12/06/24 12/07/24 23:59 23:59 23:59 23:59 Intake Total 1872.2 2000 1676 100 Output Total 1800 3050 1000 Balance 72.2 -1050 676 100 Meds/Results Medications: Active Medications Generic Name Dose Route Start Last Admin Trade Name Freq PRN Reason Stop Dose Admin Acetaminophen 650 mg 12/02/24 03:29 Acetaminophen 325 Mg Tablet PO Q4H PRN Mild Pain (1-3) or Fever Amiodarone HCl 200 mg 12/04/24 09:00 12/07/24 08:43 Amiodarone Hcl 200 Mg Tablet PO 200 mg BID YODIT Administration Amitriptyline HCl 10 mg 12/02/24 21:00 12/06/24 21:14 Amitriptyline Hcl 10 Mg Tablet PO 10 mg HS YODIT Administration Duloxetine HCl 40 mg 12/05/24 09:00 12/07/24 08:42 Duloxetine Hcl 20 Mg Capsule.Dr PO 40 mg Q12HR YODIT Administration Escitalopram Oxalate 20 mg 12/02/24 09:00 12/07/24 08:43 Escitalopram Oxalate 10 Mg Tablet PO 20 mg DAILY YODIT Administration Ferrous Sulfate 325 mg 12/02/24 09:00 12/07/24 08:41 Ferrous Sulfate [address] PO 325 mg BID YODIT Administration Furosemide 20 mg 12/06/24 09:00 Furosemide 20 Mg Tablet PO BID YODIT Guaifenesin 1,200 mg 12/07/24 09:00 Guaifenesin 12 Hr 600 Mg Tabcr PO Q12HR YODIT Guaifenesin/Dextromethorphan 10 ml 12/02/24 03:29 Guaifenesin/Dextromethorphan 10 Ml Udc PO Q4H PRN Cough Heparin Sodium (Porcine) 5,000 units 12/02/24 06:00 12/07/24 06:41 Heparin Sodium 5,000 Units/Ml Vial SUB-Q 5,000 units Q8HR YODIT Administration Piperacillin/Tazobactam/Dextrose 3.375 gm in 50 mls @ 100 mls/hr 12/02/24 04 :00 12/07/24 07:10 Zosyn 3.375 Gm/Ns 50 Ml IVPB 12/08/24 23:59 Infused Q6HR YODIT Infusion Ipratropium [place] 0.5 mg 12/06/24 14:00 12/07/24 07:27 Ipratropium Br 0.02% Inh Soln 0.5 Mg/2.5 Ml Vial INHALATION 0.5 mg Q6HRT YODIT Administration Levalbuterol HCl 1.25 mg 12/06/24 14:00 12/07/24 07:26 Levalbuterol Neb 1.25 Mg/3 Ml INHALATION 1.25 mg Q6HRT YODIT Administration Melatonin 5 mg 12/02/24 11:06 12/06/24 21:28 Melatonin 5 Mg Tablet PO 5 mg HS PRN Administration Insomnia Metoprolol Tartrate 100 mg 12/04/24 09:00 12/07/24 08:41 Metoprolol Tartrate 50 Mg Tab PO 100 mg Q12HR YODIT Administration Montelukast Sodium 10 mg 12/03/24 09:00 12/07/24 08:42 Montelukast Sodium 10 Mg Tablet PO 10 mg DAILY YODIT Administration Ondansetron HCl 4 mg 12/02/24 00:29 Ondansetron Inj 4 Mg/2 Ml Vial IV PUSH Q4H PRN Nausea Pantoprazole Sodium 40 mg 12/02/24 09:00 12/07/24 08:42 Pantoprazole 40 Mg Tablet PO 40 mg Q12HR YODIT Administration Potassium Chloride 20 meq 12/03/24 09:00 12/07/24 08:38 Potassium Chloride 20 Meq Packet (For Liquid) PO 20 meq DAILY YODIT Administration Prednisone 40 mg 12/03/24 08:00 12/07/24 08:43 Prednisone 20 Mg Tablet PO 40 mg DAILY@0800 YODIT Administration Quetiapine Fumarate 25 mg 12/02/24 21:00 12/06/24 21:15 Quetiapine Fumarate 25 Mg Tablet PO 25 mg HS YODIT Administration Ropinirole HCl 4 mg 12/05/24 22:10 12/06/24 21:13 Ropinirole Hcl 1 Mg Tablet PO 4 mg HS YODIT Administration Topiramate 200 mg 12/02/24 09:00 12/07/24 08:44 Topiramate 100 Mg Tablet PO 200 mg Q12HR YODIT Administration Trazodone HCl 50 mg 12/02/24 21:00 12/06/24 21:13 Trazodone Hcl 50 Mg Tablet PO 50 mg HS YODIT Administration Radiology Results: ITS Impressions Chest CTA 12/02/24 15:44 IMPRESSION: 1. No pulmonary embolism. 2. Bilateral basal atelectasis versus pneumonia. Clinical correlation advised. Venous Doppler Study 12/02/24 16:23 IMPRESSION: 1. Patent bilateral upper extremity veins. No evidence of venous thrombosis. Chest X-Ray 12/05/24 07:59 Impression: Probable minimal bibasilar pulmonary edema with discoid left basilar atelectasis. Labs Labs: Laboratory Results - last 24 hr 12/06/24 12/07/24 17:22 06:57 WBC 10.2 H RBC 3.71 L Hgb 10.0 L Hct 33.7 L MCV 90.8 MCH 27.0 MCHC 29.7 L RDW 14.8 H Plt Count 263 MPV 9.7 Immature Gran % (Auto) 1.4 H Neut % (Auto) 56.4 Lymph % (Auto) 31.0 [place] % (Auto) 9.1 H Eos % (Auto) 1.8 Baso % (Auto) 0.3 Lymph # (Auto) 3.16 [place] # (Auto) 0.9 H Eos # (Auto) 0.2 Baso # (Auto) 0.0 Abs Immat Gran (auto) 0.14 H Absolute Neuts (auto) 5.8 Absolute Nucleated RBC 0.000 Band Neutrophils % Not Reportable Nucleated RBC % 0.0 Platelet Estimate Adequate Hypochromasia 1+ Schistocytes None seen Puncture Site Left radial ABG pH 7.385 ABG pCO2 47.8 H ABG pO2 97.3 ABG PO2/FiO2 Ratio 2.43 ABG HCO3 28.0 H ABG O2 Saturation 97.3 ABG O2 Content 15.2 L ABG Base Excess 2.4 A-a Gradient 132.9 Oxyhemoglobin 97.1 Total Hemoglobin 11.0 L O2 Delivery Device Nasal cannula O2 Liters/Min 5.0 FiO2 40 Sodium 140 Potassium 3.7 Chloride 101 Carbon Dioxide 31 H Anion Gap 8 BUN 25 H Creatinine 1.69 H Estim Creat Clear Calc 39 Estimated GFR 30 L Glucose 105 Calcium 8.9 Magnesium 2.3 Total Bilirubin 0.5 AST 26 ALT 53 H Alkaline Phosphatase 70 Total Protein 7.0 Albumin 3.7
[2024-12-07] MEDS: guaiFENesin 12 HR 600 MG TABCR 1200 MG PO ×2 (09:47→21:02)
[2024-12-07 11:31] LABS: Glucose Point of Care 161 mg/dl (65-105)
--- NOTE | 2024-12-07 11:31 | P.PNIM_ITS ---
Progress Note: A&P Assessment and Plan (1) Acute on chronic respiratory failure with hypoxia and hypercapnia: Code(s): J96.21 - Acute and chronic respiratory failure with hypoxia; J96.22 - Acute and chronic respiratory failure with hypercapnia Status: Acute Plan COPD exacerbation: Home O2 Discontinued DuoNeb due to tachycardia Started on Xopenex Continue Zosyn and azithromycin Currently on prednisone 40 mg p.o. q.d. Long smoking history Previous exacerbation on 01/14/2024 Multiple comorbid conditions including CHF s/p BiPAP now on baseline oxygen S/p IV methylprednisone 60 mg IV q.8 hours, now on Prednisone 40mg daily Currently on Zosyn Negative for RSV Influenza and COVID CTA negative for pulmonary embolism Ultrasound of upper and lower extremity no evidence of DVT For overnight oximetry CHF exacerbation BNP 758 ECHO: The left ventricular ejection fraction visually estimated to be 60-60%. Cardiology started Lasix 40mg IV BID but will decrease to 20mg IV BID due to decreasing renal function. Holding Lasix due to worsening renal function. Recent contrast exposure monitor renal function during diuresis echocardiogram ventricular ejection fraction visually estimated to be 60-60%. EKG sinus tachycardia Chest x-ray Pulmonary edema Optimize Scooter inhibitors, beta-blockers, ARNI Daily weights. fluid restriction Strict I&O's elevate/Scooter wrap legs if needed Continue metoprolol succinate to 25 mg p.o. q.d. Optimize blood pressure less than 130/80. Fall risk assessment. A.fib Not taking Eliquis for about 2 years due to previous history of rectus sheath Hematoma ? twice Cardiology following Left atrial appendage occlusion device as OP Lopressor 50 mg q.6 hours Amiodarone S/P Amiodarone 200 mg p.o. b.i.d., metoprolol 100 mg p.o. b.i.d.\ DVT prophylaxis on Eliquis Subjective Date/time seen: 12/07/24 11:31 Interval history: Comfortable at bedside Review of Systems Review of Systems: All systems reviewed & are unremarkable except as noted in HPI and below Exam Const: General: in distress HENMT: Ears: TM's normal bilaterally Face/Nose/Sinus: Normal nares present Eyes: General: appearance normal, both eyes and all related structures Sclera: sclerae normal Pupils: Equal, round and reactive pupils present Neck: Neck: supple Resp: Effort & Inspection: abnormal respiratory effort Auscultation: wheezes and diminished lung sounds bilateral throughout Cardio: Rate: regular rate Skin: General skin exam: normal color Neuro: Cranial nerves: Yes Equal, round and reactive pupils present Motor exam (neuro): 5/5 motor strength present throughout and Normal motor muscle tone present throughout Sensory Exam: normal sensation Extrem: General: normal to inspection Psych: Mental Status: mental status grossly normal Affect: Anxious affect present Objective Data Vital Signs Vital Signs: Vital Signs - 24 hr 12/06/24 12:00 12/06/24 13:40 12/06/24 13:40 Temperature Pulse Rate 63 61 61 Respiratory Rate 20 20 Blood Pressure Pulse Oximetry 95 Oxygen Delivery Nasal Cannula Oxygen Flow Rate 3 12/06/24 14:00 12/06/24 14:01 12/06/24 16:00 Temperature 96.4 F L Pulse Rate 61 65 62 Respiratory Rate 18 20 Blood Pressure 132/57 L Pulse Oximetry 96 Oxygen Delivery Oxygen Flow Rate 12/06/24 17:06 12/06/24 20:00 12/06/24 20:00 Temperature Pulse Rate 64 62 Respiratory Rate Blood Pressure Pulse Oximetry 97 Oxygen Delivery Nasal Cannula Oxygen Flow Rate 3 12/06/24 20:23 12/06/24 20:47 12/06/24 21:15 Temperature Pulse Rate 63 63 63 Respiratory Rate 18 18 Blood Pressure Pulse Oximetry Oxygen Delivery Oxygen Flow Rate 12/06/24 22:00 12/06/24 22:40 12/07/24 00:00 Temperature 97.3 F L Pulse Rate 62 57 L Respiratory Rate 18 15 Blood Pressure 124/89 Pulse Oximetry 97 Oxygen Delivery BiPAP Oxygen Flow Rate 12/07/24 02:20 12/07/24 04:00 12/07/24 06:00 Temperature 97.4 F L Pulse Rate 56 L 54 L 60 Respiratory Rate 20 18 Blood Pressure 130/58 L Pulse Oximetry 100 Oxygen Delivery Oxygen Flow Rate 12/07/24 07:27 12/07/24 07:27 12/07/24 07:39 Temperature Pulse Rate 62 62 60 Respiratory Rate 20 20 20 Blood Pressure Pulse Oximetry 99 Oxygen Delivery Nasal Cannula Oxygen Flow Rate 3 12/07/24 08:41 12/07/24 08:43 Temperature Pulse Rate 58 L 58 L Respiratory Rate Blood Pressure Pulse Oximetry Oxygen Delivery Oxygen Flow Rate Intake/Output Intake/Output: Intake & Output 12/04/24 12/05/24 12/06/24 12/07/24 23:59 23:59 23:59 23:59 Intake Total 1872.2 1999 1676 460 Output Total 1800 3050 1000 Balance 72.2 -1050 676 460 Meds/Results Medications: Active Medications Generic Name Dose Route Start Last Admin Trade Name Freq PRN Reason Stop Dose Admin Acetaminophen 650 mg 12/02/24 03:29 Acetaminophen 325 Mg Tablet PO Q4H PRN Mild Pain (1-3) or Fever Amiodarone HCl 200 mg 12/04/24 09:00 12/07/24 08:43 Amiodarone Hcl 200 Mg Tablet PO 200 mg BID YODIT Administration Amitriptyline HCl 10 mg 12/02/24 21:00 12/06/24 21:14 Amitriptyline Hcl 10 Mg Tablet PO 10 mg HS YODIT Administration Duloxetine HCl 40 mg 12/05/24 09:00 12/07/24 08:42 Duloxetine Hcl 20 Mg Capsule.Dr PO 40 mg Q12HR YODIT Administration Escitalopram Oxalate 20 mg 12/02/24 09:00 12/07/24 08:43 Escitalopram Oxalate 10 Mg Tablet PO 20 mg DAILY YODIT Administration Ferrous Sulfate 325 mg 12/02/24 09:00 12/07/24 08:41 Ferrous Sulfate [address] PO 325 mg BID YODIT Administration Furosemide 20 mg 12/06/24 09:00 Furosemide 20 Mg Tablet PO BID YODIT Guaifenesin 1,200 mg 12/07/24 09:00 12/07/24 09:47 Guaifenesin 12 Hr 600 Mg Tabcr PO 1,200 mg Q12HR YODIT Administration Heparin Sodium (Porcine) 5,000 units 12/02/24 06:00 12/07/24 06:41 Heparin Sodium 5,000 Units/Ml Vial SUB-Q 5,000 units Q8HR YODIT Administration Piperacillin/Tazobactam/Dextrose 3.375 gm in 50 mls @ 100 mls/hr 12/02/24 04:00 12/07/24 07:10 Zosyn 3.375 Gm/Ns 50 Ml IVPB 12/08/24 23:59 Infused Q6HR YODIT Infusion Ipratropium [place] 0.5 mg 12/06/24 14:00 12/07/24 07:27 Ipratropium Br 0.02% Inh Soln 0.5 Mg/2.5 Ml Vial INHALATION 0.5 mg Q6HRT YODIT Administration Levalbuterol HCl 1.25 mg 12/06/24 14:00 12/07/24 07:26 Levalbuterol Neb 1.25 Mg/3 Ml INHALATION 1.25 mg Q6HRT YODIT Administration Melatonin 5 mg 12/02/24 11:06 12/06/24 21:28 Melatonin 5 Mg Tablet PO 5 mg HS PRN Administration Insomnia Metoprolol Tartrate 100 mg 12/04/24 09:00 12/07/24 08:41 Metoprolol Tartrate 50 Mg Tab PO 100 mg Q12HR YODIT Administration Montelukast Sodium 10 mg 12/03/24 09:00 12/07/24 08:42 Montelukast Sodium 10 Mg Tablet PO 10 mg DAILY YODIT Administration Ondansetron HCl 4 mg 12/02/24 00:29 Ondansetron Inj 4 Mg/2 Ml Vial IV PUSH Q4H PRN Nausea Pantoprazole Sodium 40 mg 12/02/24 09:00 12/07/24 08:42 Pantoprazole 40 Mg Tablet PO 40 mg Q12HR YODIT Administration Potassium Chloride 20 meq 12/03/24 09:00 12/07/24 08:38 Potassium Chloride 20 Meq Packet (For Liquid) PO 20 meq DAILY YODIT Administration Prednisone 40 mg 12/03/24 08:00 12/07/24 08:43 Prednisone 20 Mg Tablet PO 40 mg DAILY@0800 YODIT Administration Quetiapine Fumarate 25 mg 12/02/24 21:00 12/06/24 21:15 Quetiapine Fumarate 25 Mg Tablet PO 25 mg HS YODIT Administration Ropinirole HCl 4 mg 12/05/24 22:10 12/06/24 21:13 Ropinirole Hcl 1 Mg Tablet PO 4 mg HS YODIT Administration Topiramate 200 mg 12/02/24 09:00 12/07/24 08:44 Topiramate 100 Mg Tablet PO 200 mg Q12HR YODIT Administration Trazodone HCl 50 mg 12/02/24 21:00 12/06/24 21:13 Trazodone Hcl 50 Mg Tablet PO 50 mg HS YODIT Administration Radiology Results: ITS Impressions Chest CTA 12/02/24 15:44 IMPRESSION: 1. No pulmonary embolism. 2. Bilateral basal atelectasis versus pneumonia. Clinical correlation advised. Venous Doppler Study 12/02/24 16:23 IMPRESSION: 1. Patent bilateral upper extremity veins. No evidence of venous thrombosis. Chest X-Ray 12/05/24 07:59 Impression: Probable minimal bibasilar pulmonary edema with discoid left basilar atelectasis. Labs Labs: Laboratory Results - last 24 hr 12/06/24 12/07/24 17:22 06:57 WBC 10.2 H RBC 3.71 L Hgb 10.0 L Hct 33.7 L MCV 90.8 MCH 27.0 MCHC 29.7 L RDW 14.8 H Plt Count 263 MPV 9.7 Immature Gran % (Auto) 1.4 H Neut % (Auto) 56.4 Lymph % (Auto) 31.0 [place] % (Auto) 9.1 H Eos % (Auto) 1.8 Baso % (Auto) 0.3 Lymph # (Auto) 3.16 [place] # (Auto) 0.9 H Eos # (Auto) 0.2 Baso # (Auto) 0.0 Abs Immat Gran (auto) 0.14 H Absolute Neuts (auto) 5.8 Absolute Nucleated RBC 0.000 Band Neutrophils % Not Reportable Nucleated RBC % 0.0 Platelet Estimate Adequate Hypochromasia 1+ Schistocytes None seen Puncture Site Left radial ABG pH 7.385 ABG pCO2 47.8 H ABG pO2 97.3 ABG PO2/FiO2 Ratio 2.43 ABG HCO3 28.0 H ABG O2 Saturation 97.3 ABG O2 Content 15.2 L ABG Base Excess 2.4 A-a Gradient 132.9 Oxyhemoglobin 97.1 Total Hemoglobin 11.0 L O2 Delivery Device Nasal cannula O2 Liters/Min 5.0 FiO2 40 Sodium 140 Potassium 3.7 Chloride 101 Carbon Dioxide 31 H Anion Gap 8 BUN 25 H Creatinine 1.69 H Estim Creat Clear Calc 39 Estimated GFR 30 L Glucose 105 Calcium 8.9 Magnesium 2.3 Total Bilirubin 0.5 AST 26 ALT 53 H Alkaline Phosphatase 70 Total Protein 7.0 Albumin 3.7
--- NOTE | 2024-12-07 13:03 | P.CONNP_ITS ---
Assessment and Plan Assessment and plan (1) Acute kidney injury: Code(s): N17.9 - Acute kidney failure, unspecified Status: Acute Assessment and Plan: * suspect multifactorial: * diuretics/diuresis * contrast exposure (CTA of chest on 12/02) * infection (bronchitis/pneumonia + UTI) * hypoxia (?) * other (?) * agree with holding diuretics * check urine studies, renal ultrasound, and CPK * follow trend of repeat labs and UOP (2) Chronic kidney disease, stage 3: Code(s): N18.30 - Chronic kidney disease, stage 3 unspecified Status: Acute Assessment and Plan: * baseline creatinine can fluctuate to extremes * prior to August 2022, renal function normal * then had FARZANEH/ARF due to ATN during August 2022 hospitalization requiring temporary dialysis - creatinine then fluctuated around 1.3 - 1.9mg/dl during 2022 * seemed to stabilize around 1.21mg/dl in 2023 * admission creatinine (12/01/24) 1.06mg/dl (although this might be a dilutional value since she was volume overloaded) * suspect creatinine runs around 1.0 - 1.5mg/dl at its best (but probably is a bit higher than this) * this causes her to fluctuate between CKD stage 3A and stage 3B * baseline CKD likely due to CHF, vascular disease, COPD, and obesity and need for diuretic therapy (3) Acute on chronic respiratory failure with hypoxia and hypercapnia: Code(s): J96.21 - Acute and chronic respiratory failure with hypoxia; J96.22 - Acute and chronic respiratory failure with hypercapnia Status: Acute Assessment and Plan: * due to a combination of COPD and CHF * clinical improvement noted with current interventions/therapy * continue supportive therapy (see #4 and #5) (4) Acute exacerbation of chronic obstructive pulmonary disease: Code(s): J44.1 - Chronic obstructive pulmonary disease with (acute) exacerbation Status: Acute Assessment and Plan: * slow improvement * on antibiotics and steroids * on supplemental oxygen * viral testing for RSV/influenza/COVID negative * CTA of chest negative for PE * Pulmonary following with recommendations noted (5) Acute on chronic congestive heart failure: Code(s): I50.9 - Heart failure, unspecified Status: Acute Assessment and Plan: * suggested on admission * BNP elevated * CXR findings with pulmonary vascular congestion/pulmonary edema * was on lasix but on hold due to #1 * will need to restart once renal function improves/stabilizes * follow daily weights, I/Os, and respiratory status * Cardiology following (6) Atrial fibrillation: Code(s): I48.91 - Unspecified atrial fibrillation Status: Chronic Assessment and Plan: * rate control strategy * anticoagulation on hold due to history of rectus sheath hematoma (?) (7) Anemia: Code(s): D64.9 - Anemia, unspecified Status: Inactive Assessment and Plan: * probably related to FARZANEH, CKD, and acute illness * follow trend of H/H I will continue to follow the patient with you while she remains hospitalized and make further recommendations as deemed necessary. Thank you for allowing me to participate in the care of this patient. 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 The patient states that over the last 1-2 weeks she has been developing worsening shortness of breath despite conservative therapy. Initially, the shortness of breath was with exertional activities but over the last few days, it has been present even at rest. Interventions with regard to use of her rescue inhaler and supplemental oxygen have not resulted in any improvement in her symptoms. Other associated symptoms include malaise, insomnia, poor appetite, and decreased ability to perform her ADLs. On further questioning, she denies any fevers, chills, hemoptysis, dysuria, palpitations, dizziness, chest pain, or syncope. Due to the ongoing progression of these symptoms, she presented to the ER for further assessment. Workup and evaluation emergency room demonstrated the patient be hemodynamically stable. Routine blood tests were noted for a white blood cell count of 14.8, hemoglobin 9.8, platelet count of 223, sodium 133, potassium 4.6, CO2 greater than 60, BUN 22, creatinine 1.06, lactic acid 1.5, magnesium 1.4, and a BNP of 758. Her urinalysis was unremarkable and viral testing for influenza, RSV, and COVID were negative. Her chest x-ray showed cardiomegaly with cardiac decompensation and pulmonary edema with the possibility of pneumonitis in the lower lobes. Her ABG showed a pH is 7.33, pCO2 65, PO2 of 103. It was felt that her shortness of breath was a combination of CHF and possible COPD and the patient was subsequently admitted to the hospital for further evaluation and therapy. Since her hospitalization, is been noted that her renal function has been worsening although interventions to optimize her respiratory status have been successful. Renal consultation was requested due to her acute kidney injury/acute renal failure on top of her baseline chronic kidney disease. The patient is somewhat familiar to me as I took care of her during a previous hospitalization here at [facility] in 2022 when she suffered acute kidney injury/acute renal failure thought to be secondary to ATN. During that hospitalization chin, she had bacteremia along with acute respiratory failure required intubation and mechanical ventilation. She was eventually transferred to another facility for ongoing management of these issues and from what I can tell, her renal function stabilized after a brief period time on dialysis. Review her records since that last hospitalization in 2022 indicate that she does have some underlying renal insufficiency/ baseline kidney disease since that hospital stay possibly due to left over from her acute tubular necrosis. Her baseline creatinine seems around 1.0-1.5 mg/dL and although she was at baseline on admission, her creatinine has gone up to 1.69 mg/dL by labs done today. She was getting diuresis to treat her CHF as well as antibiotics for her COPD exacerbation as well. Even with discontinuation of her diuretics, she appears to making reasonable amounts of urine and respiratory status has stabilized if not improved in general. Currently, at the time my evaluation, she appears to be in no acute distress. Review of Systems 2 Review of Systems: As per HPI. [facility] Past Medical History Medical History (Updated 12/08/24 @ 16:55 by Sy Osborne MD) Acute exacerbation of chronic obstructive pulmonary disease Acute kidney injury C. difficile colitis Renal failure Requiring temporary dialysis and CRRT in 09/15. Staphylococcus epidermidis bacteremia (08/2022) Diastolic dysfunction Echo in August 2022 showed normal LV function with an EF of 60 to 65%, grade 1 diastolic dysfunction, moderate enlarged right ventricular chamber, normal right ventricular systolic function, moderate tricuspid valve regurgitation, and pulmonary hypertension with an estimated PASP of 59 mmHg. Normocytic anemia Atrial flutter with rapid ventricular response Bacteremia Shock Obesity (BMI 30-39.9) Sepsis Urinary tract infection Encephalopathy Chronic anticoagulation Gastroesophageal reflux disease Cerebrovascular accident Pneumonia Chronic obstructive pulmonary disease Acute on chronic respiratory failure with hypoxia and hypercapnia Jugular vein thrombosis 2019 novel coronavirus-infected pneumonia (NCIP) Congestive heart failure COPD (chronic obstructive pulmonary disease) Surgical History Surgical History History of cholecystectomy History of 3 sections History of left knee replacement Family History Family History Father Hypertension Acute myocardial infarction Sibling Hypertension Mother Family history of heart disease in male family member before age 55 Brother Acute myocardial infarction Father Acute myocardial infarction Other Cerebrovascular accident Family history of cardiovascular disease Social History Social History Social History: Surrogate medical decision maker: Sai Shin, brother. Code status: Full code. Smoking packs per day: 1 Smoking cigarettes per day: 20.0 Years smoked: 50 Smoking pack-years: 50.00 Smoking status: Former smoker Tobacco type: cigarettes Second hand tobacco smoke exposure: Yes Smoking end date: 08/23/22 Alcohol intake: never Drinks per week: 0 Substance use: never Do You Feel Safe in your Home?: Yes Lack of Transportation: No Lack of Food: Never True Current Housing: I Have Housing Concerned About Future Housing: No Difficulty Paying Gas/Electric Bills: No Difficulty Paying for Meds: No Currently Unemployed: No Education: High School Diploma/GED Difficulty w/ Childcare or Family Care: No Living arrangements: with family Additional living arrangements comments: Lives with family in [place]. 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 Spiritual care concerns: No Meds Home Medications and Allergies Home Medications ?Medication ?Instructions ?Recorded ?Confirmed ?Type escitalopram oxalate 20 mg tablet 20 mg PO DAILY 09/07/21 12/02/24 History montelukast 10 mg tablet 10 mg PO DAILY 09/07/21 12/02/24 History omeprazole 40 mg capsule,delayed 40 mg PO DAILY 09/07/21 12/02/24 History release trazodone 50 mg tablet 50 mg PO HS 09/07/21 12/02/24 History albuterol sulfate 90 mcg/actuation 2 puff inhalation QID PRN 09/16/21 12/02/24 Rx aerosol inhaler (Proventil HFA) shortness of breath #1 BA unit magnesium hydroxide 400 mg/5 mL 30 ml PO HS PRN Constipation 10/09/22 12/02/24 History oral suspension (Milk of Magnesia) melatonin 5 mg capsule 5 mg PO HS PRN Insomnia 10/09/22 12/02/24 History quetiapine 25 mg tablet 25 mg PO HS 10/09/22 12/02/24 History furosemide 20 mg tablet 20 mg PO BID #60 tabs 10/10/22 12/02/24 Rx amitriptyline 10 mg tablet 10 mg PO HS 10/20/22 12/02/24 History ropinirole 4 mg tablet 4 mg PO HS 10/20/22 12/02/24 History topiramate 100 mg tablet 200 mg PO BID 10/20/22 12/02/24 History potassium chloride 20 mEq oral 20 meq PO DAILY #30 ea 10/23/22 12/02/24 Rx packet ferrous sulfate 325 mg (65 mg 325 mg PO BID #60 tabs 10/25/22 12/02/24 Rx iron) tablet duloxetine 20 mg capsule,delayed 40 mg PO BID 12/02/24 12/05/24 History release amiodarone 200 mg tablet 200 mg PO DAILY 30 days #30 tabs 12/08/24 Rx amiodarone 200 mg tablet (Pacerone) 200 mg PO BID 6 days #12 tabs 12/08/24 Rx fluticasone fur. 100 mcg-umeclid 1 inh inhalation DAILY #28 ea 12/08/24 Rx 62.5 mcg-vilant 25 mcg inhalat.powder (Trelegy Ellipta) metoprolol tartrate 50 mg tablet 100 mg (2 x 50 mg) PO Q12HR 30 12/08/24 Rx days #120 tabs prednisone 10 mg tablet 10 mg PO DIRECTED #32 tabs 12/08/24 Rx Allergies Allergy/AdvReac Type Severity Reaction Status Date / Time No Known Drug Allergies Allergy Unknown Verified 07/13/23 13:02 Vital Signs Vital Signs Temp Pulse Resp BP Pulse Ox O2 Del Method O2 Flow Rate 12/07/24 12:00 58 L 12/07/24 08:43 58 L 12/07/24 08:41 58 L 12/07/24 08:00 57 L 12/07/24 08:00 58 L 93 Nasal Cannula 2 12/07/24 07:39 60 20 12/07/24 07:27 62 20 12/07/24 07:27 62 20 99 Nasal Cannula 3 12/07/24 06:00 97.4 F L 60 18 130/58 L 100 12/07/24 04:00 54 L 12/07/24 02:20 56 L 20 12/07/24 00:00 57 L 12/06/24 22:40 15 BiPAP 12/06/24 22:00 97.3 F L 62 18 124/89 97 12/06/24 21:15 63 12/06/24 20:47 63 18 12/06/24 20:23 63 18 12/06/24 20:00 62 12/06/24 20:00 97 Nasal Cannula 3 12/06/24 17:06 64 Exam 2 Narrative: GENERAL APPEARANCE: well developed well nourished female in no acute distress HEENT: normocephalic, atraumatic, normal conjunctiva and sclera, nares patient NECK: no lymphadenopathy, thyromegaly, or JVD MOUTH: normal lips, teeth, and gums CARDIOVASCULAR: RRR, normal S1 and S2, no rub RESPIRATORY: coarse breath sounds ABDOMEN: soft, nontender, nondistended, positive bowel sounds present EXTREMITIES: no evidence of cyanosis, clubbing, trace edema NEUROLOGICAL: alert and oriented x 3; CN II - XII intact bilaterally; no focal deficits noted Results Lab Results 12/08/24 05:51 12/08/24 05:51 Lab results: Most recent lab results ABG pH 7.385 (7.350-7.450) 12/06/24 17:22 ABG pCO2 47.8 mmHg (35.0-45.0) H 12/06/24 17:22 ABG pO2 97.3 mmHg (80.0-100.0) 12/06/24 17:22 ABG HCO3 28.0 mEq/l (22.0-26.0) H 12/06/24 17:22 ABG O2 Saturation 97.3 % (95.0-100.0) 12/06/24 17:22 Calcium 8.9 mg/dL (8.4-10.2) 12/07/24 06:57 Magnesium 2.3 mg/dL (1.6-2.3) 12/07/24 06:57
[2024-12-07 17:34] LABS: Mycoplasma IgM Antibody Titer 299 U/mL
[2024-12-07 18:49] LABS: Creatinine Urine 55.1 mg/dL; Total Protein Urine Random 20 mg/dL; Ur Ttl Prot Creatinine Ratio 0.36 mg/mg (0-0.20)
[2024-12-07 18:50] LABS: Urea Random Urine 479 MG/DL
[2024-12-07 18:51] LABS: Sodium Urine Random 77 meq/L
[2024-12-07 19:02] LABS: Eosinophil Urine None Seen % (None Seen); Urine Eos QC 2nd Tech Confirmed
[2024-12-07 19:18] LABS: Pneumococcal Antigen Urine NOT DETECTED
[2024-12-07 19:24] LABS: Legionella pneumophila Ag Ur NOT DETECTED
[2024-12-07] MEDS: rOPINIRole HCL 1 MG TABLET 4 MG PO (20:59)
[2024-12-07] MEDS: MELATONIN 5 MG TABLET PO (20:59)
[2024-12-07] MEDS: traZODone HCL 50 MG TABLET PO (21:00)
[2024-12-07] MEDS: AMITRIPTYLINE HCL 10 MG TABLET PO (21:01)
[2024-12-07] MEDS: QUEtiapine FUMARATE 25 MG TABLET PO (21:02)
[2024-12-08] VITALS (16 sets, daily range): BP systolic 113–134; BP diastolic 57–63; PULSE 49–78; RESP 14–20; TEMP 36.1–36.7; O2SAT 87–100
[2024-12-08] MEDS: PIPERACILLN/TAZ 3.375GM/NS50ML 3.375 GM/50 ML BAG IVPB ×3 (00:11→11:18)
--- NOTE | 2024-12-08 04:25 | PCRCNOTE ---
Oximetry Study in progress; 0200 nebulizers omitted
[2024-12-08 06:05] LABS: Basophils Percent Auto 0.3 % (0.2-1.2); Eosinophils Absolute Auto 0.2 K/mm3 (0-0.3); Eosinophils Percent Auto 1.9 % (0-4.4); Hematocrit 33.8 % (37.0-47.0); Hemoglobin 9.5 g/dL (12.0-15.0); Immature Granulocyte Absolute 0.18 K/mm3 (0.00-0.031); Immature Granulocyte Percent A 1.6 % (0-0.5); Lymphocytes Absolute Auto 2.91 K/mm3 (0.9-3.2); Lymphocytes Percent Auto 25.8 % (18.3-44.2); Mean Corpuscular HGB Conc 28.1 g/dl (32-36); Mean Corpuscular Hemoglobin 26.5 pg (26-34); Mean Corpuscular Volume 94.4 fl (80-100); Mean Platelet Volume 9.8 fl (7.4-10.4); Monocytes Absolute Auto 0.9 K/mm3 (0.1-0.6); Monocytes Percent Auto 7.8 % (2.6-8.5); Neutrophils Absolute Auto 7.1 K/mm3 (1.3-6.7); Neutrophils Percent Auto 62.6 % (45.5-73.1); Platelet Count Result 253 k/mm3 (150-375); Red Blood Count 3.58 M/mm3 (4.2-5.4); Red Cell Distribution Width 14.9 % (11.5-14.5); White Blood Count 11.3 K/mm3 (4.5-10.0)
[2024-12-08 06:22] LABS: Alanine Aminotransferase 56 U/L (6-35); Albumin Level 3.5 g/dL (3.5-5.1); Alkaline Phosphatase 65 U/L (38-126); Anion Gap 6 mmol/L (4-12); Aspartate Amino Transferase 28 U/L (14-36); Bilirubin,Total 0.4 mg/dL (0.2-1.3); Blood Urea Nitrogen 24 mg/dL (7-17); Calcium 8.7 mg/dL (8.4-10.2); Carbon Dioxide 30 mmol/L (22-30); Chloride 103 mmol/L (98-107); Creatine Kinase < 20 U/L (30-135); Estimated CRCL calculation 39 ml/min; Estimated Glomerular Filt Rate 30; Glucose 109 mg/dL (65-110); Sodium 139 mmol/L (137-145)
[2024-12-08] MEDS: HEPARIN SODIUM 5,000 UNITS/ML VIAL 5000 UNITS SUB-Q ×2 (06:27→14:06)
[2024-12-08 07:06] LABS: Hypochromasia 1+; Schistocytes None Seen
[2024-12-08 07:07] LABS: Platelet Estimate Adequate (Adequate)
--- NOTE | 2024-12-08 08:09 | P.PNPL_ITS ---
Progress Note: A&P Assessment and Plan (1) Chronic obstructive pulmonary disease: Code(s): J44.9 - Chronic obstructive pulmonary disease, unspecified Status: Chronic Assessment and Plan: Regarding her COPD the patient has been on oxygen for the last 5 years. I have no PFTs. She is using 5 L at rest with home saturations 92-96%. First CT scan in our system is from 08/27/2022 and this shows mild apical predominant centrilobular emphysema. Repeat CT angiogram of the chest on 12/02/2024 demonstrates mild apical predominant centrilobular emphysema. She is using 6 L with activity but even with walking room to room her saturations go into the mid 70s. Patient is maintained on trelegy inhaler but she does not use a because of the taste. Patient takes Trelegy 100, montelukast 10 and albuterol p.r.n.. Patient tells me she wheezes every day when she takes rescue albuterol at home it relieves her wheezing for 1-2 minutes. . 12/01/2024: White blood cell count 14.8, eosinophils 0.6%= 89 per micro L, Patient has chronic hypercarbic respiratory failure from her COPD with a blood gas of 7.34/65/103 and a serum bicarbonate greater than 40. She would benefit from a noninvasive ventilation. Patient was placed on BiPAP but could not tolerate these settings because the flow in pressures were too high. I will initiate the process for a home noninvasive ventilator with the AVAPS mode through her [employer] company for oxygen which is [employer]. 12/02/24: patient with a history of COPD, worsening cough, shortness of breath and hypoxemia. She says she has had no change in her phlegm production. No wheezing currently. Plan: will treat the patient for COPD exacerbation and will continue Solu- Medrol 60 Q 8. Will change to prednisone 40 mg p.o. q.day on 12/03/2024. Continue DuoNebs q.6 hours. Continue montelukast 10. Patient has a history of UTI and was started on ciprofloxacin on 12/01/2024. Patient currently on Zosyn. Will add azithromycin. Goal saturation 90-94%. Adjust study oxygen accordingly. I will send respiratory pathogen panel, mycoplasma IgM antibody, urine pneumococcal, urine Legionella studies looking for infectious etiology. I will send alpha 1 anti trypsin genotype and level looking for genetic predisposition for her COPD. Patient has a positive D-dimer and I will check a CT angiogram of the chest, she has swelling of the lower extremities and upper extremities bilaterally and I will get upper and lower extremity Dopplers. Echocardiogram has been ordered. Later in the day patient had a CT angiogram of the chest which was negative for PE, mild apical predominant centrilobular emphysema, posterior lower lobe atelectasis versus infiltrate right greater than left. No pleural effusions. Upper and lower extremity Dopplers were negative for DVT. Echocardiogram with LVEF 60 65%, RV was dilated with normal systolic function. Left atrium normal, right atrium normal, RVSP 27 12/03/2024: Patient told me she slept with the noninvasive ventilator in the AVAPS last night and did well. She said she slept well and was well rested. Currently she is in AFib RVR on 5 of Dilt drip but her heart rate remains 160. She says she has no shortness of breath but just feels bad. Her saturations on the 5 L are 94%. She is in no respiratory distress. She had a fever last night. White blood cell count 12.1, creatinine 1.29, BNP 972. Procalcitonin 0.3. She received 1 dose of Lasix yesterday. Plan: she has no wheezing at this time. Continue prednisone 40 mg p.o. q.day, day 2 steroids. I will discontinue all beta agonists as she has a tachyarrhythmia. I will increase her ipratropium nebulizers to q.[address] scan shows small posterior lower lobe atelectasis versus infiltrate, she had a fever, procalcitonin is low and she has a leukocytosis. She is on Zosyn and azithromycin for possible pneumonia. I am not convinced this is pneumonia but will continue treatment for now while other etiologies of her fever and leukocytosis are being worked up. 12/04/24: Patient feels better than she did yesterday. Overall she tells me she is breathing normal. She denies cough, phlegm or hemoptysis. She is afebrile. White blood cell count 10.2, creatinine 1.36. She diuresed 1.1 L yesterday and cumulative she has diuresed 2.4 L. Her weight today is 121.7 with an admission weight of 121.8. She is wheezing on exam. On amiodarone drip heart rate over the last 12 hours 60 to 74. Plan: Patient has wheezing on exam is but denies shortness of breath. Oxygenation continues to improve. She is in no respiratory distress. I will continue prednisone 40 mg p.o. q.day, day 3 of steroids. I will continue ipratropium 0.5 mg nebulized q.4 hours and add levalbuterol 1.25 mg nebulized Q 4 hours. currently patient is on Zosyn and azithromycin for possible pneumonia, both day 3. Will continue. AFib RVR, and fluid overload managed per hospitalist and filling machine tender teams. 12/05/24: Patient continues to improve. Patient tells me she is breathing back at her normal. She denies cough, phlegm, hemoptysis. Patient slept well with a fullface mask in the hospital noninvasive ventilator. Currently she is on 3 L nasal cannula saturations 92%. White blood cell count 9.2, creatinine 1.51. she diuresed 177 mL yesterday and cumulative diuresis 3.1 L since admission. Her weight today is 120.1 kg. BNP has decreased from 972 on 12/03/2024 to a value of 832 today. Chest x-ray today with cardiomegaly, mild perihilar congestion, discoid atelectasis at the bases and no pleural effusion. plan: Patient is wheezing but tells me she wheezes every day. Continue prednisone 40 mg p.o. q.day, day 4 steroids. Continue ipratropium and levalbuterol nebulizers q.4 hours. Continue Zosyn and azithromycin both day 4. AFib with RVR, fluid overload managed by hospitalist and filling machine tender team. Creatinine increased to 1.51 will consider decreasing diuretics. 12/06/24: Patient tells me she continues to improve. She has tells me that she is breathing well back to her baseline. She denies cough, phlegm, hemoptysis. She is afebrile. When she walks she says she has her usual dyspnea on exertion. White blood cell count 8.6, creatinine 1.37. Yesterday she diuresed 1.05 L, with cumulative diuresis since admission 3.3 L. No weight was measured today. Plan: Patient with mild expiratory wheezes. Continue prednisone 40 mg p.o. q.day, day 5 of steroids. Will decrease her ipratropium and levalbuterol nebulizers to Q 6 hours. Continue Zosyn and azithromycin, both day 5. Will discontinue azithromycin after today's dose. Patient auto diuresed yesterday with no Lasix. Creatinine is improved. 12/07/24: overall the patient is improved from admission and tells me she is breathing a little worse than yesterday. She has a cough that is nonproductive with no phlegm and no hemoptysis. She is afebrile. Patient did some walking in the hallways yesterday, 52 ft, and says she is walking better yesterday than she has in the last 3 years. she walked with physical therapy on 3 L nasal cannula and her sats decreased to 88%. Currently she is on 3 L nasal cannula with saturations 98%. I decreased her to 2 L nasal cannula her saturations are 93%. White blood cell count 10.2, creatinine 1.69. Yesterday she was positive 676 mL cumulative she has diuresed 1.9 L since admission. Her weight today is 120.2 kg with an admission weight of 121.8. Last night she was post to wear 5 L nasal cannula and have an overnight oximetry but inadvertently got placed on noninvasive ventilation to approximately 2:30 in the morning. after 230 she was placed on 5 L and she had 1 desaturation for 18 minutes on these settings. Plan: Patient had no wheezing today. She says she is breathing little worse than yesterday and I will continue prednisone 40 mg a day today, day 6 of steroids. Continue ipratropium and levalbuterol Nebs q.6. patient tells me she is having difficulty expectorating and I will add guaifenesin 1200 mg p.o. b.i.d.. Goal saturation 90-94%. Adjust oxygen accordingly. Continue Zosyn day 6 and I will plan on discontinuing after tomorrow's dose. 12/08/24: Overall the patient is improved since admission she sells me she is breathing normal. Her cough is normal. She has no phlegm. Dyspnea on exertion is normal for her. She is afebrile. White blood cell count 11.3, creatinine 1.68. Her weight is 120.8 kg. When I enter the room she was on 5 L nasal cannula at 98% sats. I decreased her to 2 L and her saturations were 96%. Patient had an overnight oximetry on 5 L nasal cannula with recording duration of 6 hours and 58 minutes. Average saturation 98%. Low saturation 95%. Time with saturation less than or equal to 88% was 0 minutes. Oxygen desaturation index 0. Patient walked 42 ft with physical therapy on 2 L with saturation 94%. Patient tells me she is ready for discharge. from a pulmonary perspective patient can be discharged on these pulmonary medicines: trelegy 100 - 62.5-25 at 1 puff q.day rescue albuterol 2 puffs q.4 hours p.r.n. shortness of breath montelukast 10 mg p.o. q.day Guaifenesin 600 mg p.o. b.i.d. p.r.n. congestion oxygen at rest and with activity per formal home O2 assessment which I have ordered. When she naps or sleeps: 5 L nasal cannula oxygen. follow-up in the Pulmonary Clinic in 4 weeks. She will need an outpatient split night sleep study. I gave her our business card and informed our solutions analyst Discussed with Dr. Crawford, will signoff, call with questions. (2) Acute hypercapnic respiratory failure: Code(s): J96.02 - Acute respiratory failure with hypercapnia Status: Acute Assessment and Plan: 12/02/2024: When I enter the room the patient was on BiPAP in no respiratory distress. Patient told me the machine and the breathing was uncomfortable and that she would not be able to sleep with this. I changed her to noninvasive ventilator with the AVAS mode an adjusted settings to comfort resulting in a rate of 14, tidal volume 500, EPAP 5, minimal inspiratory pressure 6, maximal inspiratory pressure 25, inspiratory time 1.0, rise of 1 which is are fast this and it and 40% FiO2. She was able to tolerate these settings. She felt she could come off BiPAP and I placed her on 5 L nasal cannula and after 12 minutes her saturations were 92%. Plan: Patient can use noninvasive ventilation with the AVAPS mode p.r.n. during the day but should wear this at night. I will perform an overnight oximetry and ABG prior to removal on these settings. Later in the day [facility] 12/03/24: Patient slept with the noninvasive ventilator last night and said she did well and was able to sleep. On the noninvasive ventilator with the AVAPS settings as above and 40% FiO2 the patient had an overnight oximetry with recording duration of 7 hours and 45 minutes. Average saturation 95%. Low s aturation 89%. Time with saturation less than or equal to 88% was 0 minutes. Oxygen desaturation index 2.2. Patient an ABG prior to removal with a pH of 7.43/58/101. Plan: Current noninvasive ventilation with the AVAPS mode rate of 14, tidal volume 500, EPAP 5, minimal inspiratory pressure 6, maximal inspiratory pressure 25, inspiratory time 1.0, rise of 1 which is are fast this and it and 40% FiO2, provide adequate ventilation and oxygenation. I will place her on AVAPS mode with 32% FiO2 tonight and repeat an overnight oximetry. 12/04/24: Patient wore the noninvasive ventilator last night with 32% FiO2. She had an overnight oximetry on these settings with recording duration of 7 hours and 2 minutes, average saturation 96%. Low saturation 85%. Time with saturation less than or equal to 88% was 3 minutes, oxygen desaturation index 3.3. Plan: current noninvasive ventilation with the AVAPS settings above and 32% FiO2 provide adequate ventilation and oxygenation and will continue. 12/05/24: Patient continues to improve. Patient tells me she is breathing back at her normal. She denies cough, phlegm, hemoptysis. Patient slept well with a fullface mask in the hospital noninvasive ventilator. Currently she is on 3 L nasal cannula saturations 92%. Plan: Discussed with optometric coordinator and waiting for home noninvasive ventilation through [facility] [place]. Later in the day filled out an order for for noninvasive ventilation with [facility] [place]: I have apps-AE with a rate of 14, EPAP minimum 5, EPAP maximum 20, pressure support minimum 5, pressure support maximum 20, inspiratory time 0.5- 1.5 and 3 L bleed in. 12/06/24: She slept with the hospital noninvasive ventilator in the fullface mask last night. Plan: Discussed with respiratory care, awaiting to hear updates from [facility] [place] and her insurance, [facility], regarding her home noninvasive ventilator set up. Later in the day patient had an ABG on 5 L nasal cannula the pH of 7.39/48/97. No evidence of chronic hypercarbic respiratory failure that will qualify for her for a noninvasive ventilator 12/07/24: Last night she was supposed to wear 5 L nasal cannula and have an overnight oximetry but inadvertently got placed on noninvasive ventilation to approximately 2:30 in the morning. after 230 she was placed on 5 L and she had 1 desaturation for 18 minutes on these settings. Plan: Patient with improved blood gas and no longer has chronic elevated pCO2 that will qualify her for home noninvasive ventilator. Will perform overnight oximetry on 5 L tonight. 12/08/24: Patient had an overnight oximetry on 5 L nasal cannula with recording duration of 6 hours and 58 minutes. Average saturation 98%. Low saturation 95%. Time with saturation less than or equal to 88% was 0 minutes. Oxygen desaturation index 0. plan: Continue 5 L nasal cannula at night. Patient will need an outpatient split night sleep study to assess for sleep-related breathing disorder. Subjective Date/time seen: 12/08/24 08:09 Interval history: 12/02/2024: This is a new pulmonary consult for acute on chronic hypercarbic and hypoxemic respiratory failure. 64-year-old with a history of hypertension, restless legs syndrome, anxiety and COPD With chronic hypoxemic respiratory failure on 5 L at rest and 6 L with activity. Regarding her COPD the patient has been on oxygen for the last 5 years. I have no PFTs. She is using 5 L at rest with home saturations 92-96%. For CT scan in our system is from 08/27/2022 and this shows mild apical predominant centrilobular emphysema. She is using 6 L with activity but even with walking room to room her saturations go into the mid 70s. Patient is maintained on trelegy inhaler but she does not use a because of the taste. Patient takes montelukast 10 and albuterol p.r.n.. Patient tells me she has wheezing every day when she takes rescue albuterol it relieves the reason wheezing for approximately 1-2 minutes. Patient follows with a environmental sampler in [place] Dr. Zamorano. Patient is currently on BiPAP and family is in the room who aids with history. For the last 2-3 weeks patient has had worsening shortness of breath, wheezing, cough with no phlegm production, swelling of the legs and abdomen. She was diagnosed with the UTI on 12/01/2024 and started on ciprofloxacin. Later the night, She had worsening hypoxemia and yesterday she could not keep her saturations up and presented to the emergency room. in the emergency room her blood pressure was 142/106, heart rate 115, respirations 22 and on 15 L non- rebreather her saturation were 98%. Patient had white blood cell count of 14.8 was 0.6% eosinophils equals 89 per micro L, creatinine 1.16, serum bicarbonate greater than 40, COVID influenza and RSV RT PCR study negative. ABG on 10 L non-rebreather was 7.34/65/103. Procalcitonin was 0.4. BNP was 758. Chest x-ray showed pulmonary congestion with left greater than right interstitial infiltrates. Patient was treated for COPD exacerbation, pneumonia, fluid overload. 12/02/2024: When I enter the room the patient was on BiPAP in no respiratory distress. She was awake communicative and following simple commands. The patient told me she was breathing back to her normal. She complained of some dizziness but denied fever, chills, rigors, wheezing, phlegm production or hemoptysis. She said her coughing is slightly increased compared to her baseline. Patient was on BiPAP rate of 22, pressures 16/8 with tidal volumes 880 inspiratory time 1.0 with a blood gas of 7.40/52/43. patient told me the machine and the breathing was uncomfortable and that she would not be able to sleep with this. I changed her to noninvasive ventilator with the AVAS mode an adjusted settings to comfort resulting in a rate of 14, tidal volume 500, EPAP 5, minimal inspiratory pressure 6, maximal inspiratory pressure 25, inspiratory time 1.0, rise of 1 which is are fast this and it and 40% FiO2. She was able to tolerate these settings. She felt she could come off of the BiPAP and I placed her on 5 L nasal cannula and after 12 minutes her saturations were 92%. Later in the day patient had a CT angiogram of the chest which was negative for PE, mild apical predominant centrilobular emphysema posterior lower lobe atelectasis versus infiltrate right greater than left. No pleural effusions. Upper and lower extremity Dopplers were negative for DVT. Echocardiogram with LVEF 60 65%, RV was dilated with normal systolic function. Left atrium normal, right atrium normal, RVSP 27 12/03/2024: Patient told me she slept with the noninvasive ventilator in the AVAPS last night and did well. She said she slept well and was well rested. Currently she is in AFib RVR on 5 of Dilt drip but her heart rate remains 160. She says she has no shortness of breath but just feels bad. Her saturations on the 5 L are 94%. She is in no respiratory distress. She had a fever last night. White blood cell count 12.1, creatinine 1.29, BNP 972. Procalcitonin 0.3. She received 1 dose of Lasix yesterday. Albuterol and levalbuterol treatments discontinued. given metoprolol and diltiazem for AFib RVR which were unsuccessful and started on amiodarone drip yesterday. On the noninvasive ventilator with the AVAPS settings as above and 40% FiO2 the patient had an overnight oximetry with recording duration of 7 hours and 45 minutes. Average saturation 95%. Low saturation 89%. Time with saturation less than or equal to 88% was 0 minutes. Oxygen desaturation index 2.2. Patient an ABG prior to removal with a pH of 7.43/58/101. /: patient feels better than she did yesterday. Overall she tells me she is breathing normal. She denies cough, phlegm or hemoptysis. She is af ebrile. White blood cell count 10.2, creatinine 1.36. When I enter the room the patient was on 5 L nasal cannula saturations 97%. I decreased her to 3 L nasal cannula saturations were 92%. She diuresed 1.1 L yesterday and cumulative she has diuresed 2.4 L. Her weight today is 121.7 with an admission weight of 121.8. Patient wore the noninvasive ventilator last night with 32% FiO2. She had an overnight oximetry on these settings with recording duration of 7 hours and 2 minutes, average saturation 96%. Low saturation 85%. Time with saturation less than or equal to 88% was 3 minutes, oxygen desaturation index 3.3. She is wheezing on exam. On amiodarone drip heart rate over the last 12 hours 60 to 74. 12/05/24: Patient continues to improve. Patient tells me she is breathing back at her normal. She denies cough, phlegm, hemoptysis. Patient slept well with a fullface mask in the hospital noninvasive ventilator. Currently she is on 3 L nasal cannula saturations 92%. White blood cell count 9.2, creatinine 1.51. she diuresed 177 mL yesterday and cumulative diuresis 3.1 L since admission. Her weight today is 120.1 kg. BNP has decreased from 972 on 12/03/2024 to a value of 832 today. Chest x-ray today with cardiomegaly, mild perihilar congestion, discoid atelectasis at the bases and no pleural effusion. Later in the day filled out an order for for noninvasive ventilation with [employer]: I have apps-AE with a rate of 14, EPAP minimum 5, EPAP maximum 20, pressure support minimum 5, pressure support maximum 20, inspiratory time 0.5- 1.5 and 3 L bleed in. 12/06/24: Patient tells me she continues to improve. She has tells me that she is breathing well back to her baseline. She denies cough, phlegm, hemoptysis. She is afebrile. She slept with the hospital noninvasive ventilator in the fullface mask last night. When she walks she says she has her usual dyspnea on exertion. White blood cell count 8.6, creatinine 1.37. Yesterday she diuresed 1.05 L, with cumulative diuresis since admission 3.3 L. No weight was measured today. Later in the day patient had an ABG on 5 L nasal cannula the pH of 7.39/48/97. No evidence of chronic hypercarbic respiratory failure that will qualify for her for a noninvasive ventilator 12/07/24: overall the patient is improved from admission and tells me she is breathing a little worse than yesterday. She has a cough that is nonproductive with no phlegm and no hemoptysis. She is afebrile. Patient did some walking in the hallways yesterday, 52 ft, and says she is walking better yesterday than she has in the last 3 years. she walked with physical therapy on 3 L nasal cannula and her sats decreased to 88%. Currently she is on 3 L nasal cannula with saturations 98%. I decreased her to 2 L nasal cannula her saturations are 93%. White blood cell count 10.2, creatinine 1.69. Yesterday she was positive 676 mL cumulative she has diuresed 1.9 L since admission. Her weight today is 120.2 kg with an admission weight of 121.8. Last night she was post to wear 5 L nasal cannula and have an overnight oximetry but inadvertently got placed on noninvasive ventilation to approximately 2:30 in the morning. after 230 she was placed on 5 L and she had 1 desaturation for 18 minutes on these settings. 12/08/24: Overall the patient is improved since admission she sells me she is breathing normal. Her cough is normal. She has no phlegm. Dyspnea on exertion is normal for her. She is afebrile. White blood cell count 11.3, creatinine 1.68. Her weight is 120.8 kg. When I enter the room she was on 5 L nasal cannula at 98% sats. I decreased her to 2 L and her saturations were 96%. Patient had an overnight oximetry on 5 L nasal cannula with recording duration of 6 hours and 58 minutes. Average saturation 98%. Low saturation 95%. Time with saturation less than or equal to 88% was 0 minutes. Oxygen desaturation index 0. Patient walked 42 ft with physical therapy on 2 L with saturation 94%. Patient tells me she is ready for discharge. DATA 12/17/2023: CT Scan of the Chest without Contrast: Clinical Indication: Lung cancer screening, nicotine dependence Technique: Contiguous sections were acquired throughout the chest without intravenous contrast. Dose reduction technique was used on this scan by utilizing automated exposure control and iterative reconstruction technique. The dose-length product (DLP) was 341.26 mGy-cm. COMPARISON: 04/06/2023 Findings: Stable enlarged left thyroid lobe. There is no evidence of any significant mediastinal, hilar or axillary lymphadenopathy. Atherosclerotic calcifications of the aorta are present. There is no evidence of pleural or pericardial effusion. There is irregular airspace opacity in the posterior right lower lobe, improved from prior exam, likely representing postinflammatory change, as there is a previous more extensive area of consolidation in this location. Mild emphysema. Images through the upper abdomen reveal no abnormalities. Impression: Lung RADS 2: Benign appearance. 12 month follow-up screening CT advised. 09/10/2022: Echo Summary 1. Technically difficult study with limited views. Regional wall motion assessment limited due to poor endomyocardial border definition despite definity contrast enhancement. 2. Left ventricular chamber dimension is normal. 3. Left ventricular systolic function is normal, estimated at 65-70%. 4. There is mildly increased left ventricular wall thickness. 5. Right ventricular chamber dimension is normal. 6. Right ventricular systolic function is moderately reduced. TAPSE 1.3. 7. There is trace tricuspid valve regurgitation. 8. Mild pulmonary hypertension, estimated pulmonary arterial systolic pressure is 37 mmHg. 9. Normal inferior vena cava with <50% collapse upon inspiration consistent with elevated right atrial pressure, 10 mmHg. 08/28/2022: Summary 1. Left ventricular chamber dimension is normal. 2. Left ventricular systolic function is normal, estimated at 60-65%. 3. The left ventricular diastolic function is grade I diastolic dysfunction. 4. Right ventricular chamber dimension is moderately enlarged. 5. Right ventricular systolic function is normal. 6. There is moderate tricuspid valve regurgitation, which may be underestimated due to the eccentricity of the jet. 7. Dilated inferior vena cava with no collapse upon inspiration consistent with elevated right atrial pressure, 15 mmHg. 8. Pulmonary hypertension with an estimated PASP of 59mmHg. Right Ventricle Right ventricular chamber dimension is moderately enlarged. Right ventricular systolic function is normal. Right Atria Right atrial chamber dimension is normal. Atrial Septum Intact interatrial septum visualized by color flow imaging. 08/27/2022: EXAMINATION: CT chest high resolution wo co DATE: 08/27/2022 16:07 INDICATION: respiratory failure TECHNIQUE: Computed tomography (CT) of the chest was performed without intravenous contrast. Automated exposure control and iterative reconstruction technique were employed. The dose-length product was 818.52 mGy-cm. COMPARISON: X-ray chest 08/27/2022 and CTA chest 07/21/2018. FINDINGS: CHEST: Endotracheal tube terminating 2.5 cm above the maria esther. Thoracic aorta: No significant dilation. Moderate arch calcification. Lung parenchyma and airways: Diffuse tree-in-bud opacities most evident in the right lung. Scattered centrilobular nodular opacities measuring up to 11 mm in the right upper lobe. Mild interlobular septal thickening. Bibasilar dependent opacities likely representing atelectasis. Mild emphysematous change. Thoracic inlet, axillae and chest wall: No thyroid or soft tissue mass. No axillary lymphadenopathy. Mediastinum: Mediastinal lymphadenopathy. Dilated central pulmonary arteries as can be seen with pulmonary arterial hypertension. Heart and pericardium: Normal heart size. Aortic valve calcification. No pericardial effusion. Coronary artery calcifications: Mild. Pleura: Trace bilateral pleural fluid. Upper abdomen: No significant finding. Thoracic bones: No acute osseous finding in the chest. IMPRESSION: 1. Tree-in-bud opacities as can be seen with atypical infection (including but not limited to: MAC, TB, fungal), ABPA, airways disease, and less likely aspiration. 2. Nodular opacity in right upper lobe should be followed after the appropriate therapy and cessation of symptoms to ensure resolution. 3. Mediastinal lymphadenopathy. 4. Trace bilateral pleural effusions. 5. Mild interstitial edema. Review of Systems Constitutional: Constitutional: Reports no additional constitutional complaints Eyes: Eyes: Reports no additional eye complaints ENT: Reports system reviewed and no additional complaints, except as documented Cardiovascular: Cardiovascular: Reports no additional cardiovascular complaints Respiratory: Respiratory: Reports no additional respiratory complaints Gastrointestinal: Gastrointestinal: Reports no additional gastrointestinal complaints Musculoskeletal: Musculoskeletal: Reports no additional musculoskeletal complaints Neurologic: Reports system reviewed and no additional complaints, except as documented Psychiatric: Psychiatric: Reports no additional psychiatric complaints Endocrine: Endocrine: Reports no additional endocrine complaints Hematologic/Lymphatic: Hematologic/Lymphatic: Reports no additional hematologic/lymphatic complaints Allergic/Immunologic: Allergic/Immunologic: Reports no additional allergic/immunologic complaints Exam Const: General: cooperative, healthy appearing and comfortable Orientation/consciousness: oriented to person, oriented to place and oriented to time HENMT: Head: normal to inspection Ears: hearing grossly normal bilaterally Eyes: General: appearance normal, both eyes and all related structures Neck: Neck: normal visual inspection Chest: Chest palpation & inspection: normal inspection of the chest Resp: Effort & Inspection: normal respiratory effort and able to speak in complete sentences Auscultation: no crackles, no rales, no rhonchi, wheezes and diminished lung sounds Cardio: Jugular venous distension: no JVD GI: Inspection: normal to inspection Skin: General skin exam: normal color Neuro: General: oriented to person, oriented to place and oriented to time Extrem: General: edema Other: Psych: Appearance: grossly normal Objective Data Vital Signs Vital Signs: Vital Signs - 24 hr 12/07/24 08:41 12/07/24 08:43 12/07/24 12:00 Temperature Pulse Rate 58 L 58 L 58 L Respiratory Rate Blood Pressure Pulse Oximetry Oxygen Delivery Oxygen Flow Rate 12/07/24 13:49 12/07/24 13:58 12/07/24 14:00 Temperature 36.1 C L Pulse Rate 64 69 60 Respiratory Rate 20 20 20 Blood Pressure 121/56 L Pulse Oximetry 94 Oxygen Delivery Oxygen Flow Rate 12/07/24 16:00 12/07/24 17:08 12/07/24 20:00 Temperature Pulse Rate 60 61 Respiratory Rate Blood Pressure Pulse Oximetry 94 Oxygen Delivery Nasal Cannula Oxygen Flow Rate 2 12/07/24 20:00 12/07/24 20:05 12/07/24 20:12 Temperature Pulse Rate 60 60 57 L Respiratory Rate 16 18 Blood Pressure Pulse Oximetry Oxygen Delivery Oxygen Flow Rate 12/07/24 21:00 12/07/24 22:00 12/07/24 22:05 Temperature 36.9 C Pulse Rate 60 61 57 L Respiratory Rate 18 18 Blood Pressure 156/58 H Pulse Oximetry 95 96 Oxygen Delivery High Flow Nasal Cannula Oxygen Flow Rate 5 12/08/24 00:00 12/08/24 04:00 12/08/24 06:00 Temperature 36.7 C Pulse Rate 53 L 49 L 60 Respiratory Rate 18 Blood Pressure 134/63 Pulse Oximetry 100 Oxygen Delivery Oxygen Flow Rate Intake/Output Intake/Output: Intake & Output 12/05/24 12/06/24 12/07/24 12/08/24 23:59 23:59 23:59 23:59 Intake Total 1999 1676 1520 100 Output Total 3050 1000 Balance -4526 498 5129 100 Meds/Results Medications: Active Medications Generic Name Dose Route Start Last Admin Trade Name Ellisq PRN Reason Stop Dose Admin Acetaminophen 650 mg 12/02/24 03:29 Acetaminophen 325 Mg Tablet PO Q4H PRN Mild Pain (1-3) or Fever Amiodarone HCl 200 mg 12/04/24 09:00 12/07/24 17:08 Amiodarone Hcl 200 Mg Tablet PO 200 mg BID YODIT Administration Amitriptyline HCl 10 mg 12/02/24 21:00 12/07/24 21:01 Amitriptyline Hcl 10 Mg Tablet PO 10 mg HS YODIT Administration Duloxetine HCl 40 mg 12/05/24 09:00 12/07/24 21:01 Duloxetine Hcl 20 Mg Capsule.Dr PO 40 mg Q12HR YODIT Administration Escitalopram Oxalate 20 mg 12/02/24 09:00 12/07/24 08:43 Escitalopram Oxalate 10 Mg Tablet PO 20 mg DAILY YODIT Administration Ferrous Sulfate 325 mg 12/02/24 09:00 12/07/24 17:08 Ferrous Sulfate [address] PO 325 mg BID YODIT Administration Furosemide 20 mg 12/06/24 09:00 Furosemide 20 Mg Tablet PO BID YODIT Guaifenesin 1,200 mg 12/07/24 09:00 12/07/24 21:02 Guaifenesin 12 Hr 600 Mg Tabcr PO 1,200 mg Q12HR YODIT Administration Heparin Sodium (Porcine) 5,000 units 12/02/24 06:00 12/08/24 06:27 Heparin Sodium 5,000 Units/Ml Vial SUB-Q 5,000 units Q8HR YODIT Administration Piperacillin/Tazobactam/Dextrose 3.375 gm in 50 mls @ 100 mls/hr 12/02/24 04:00 12/08/24 07:03 Zosyn 3.375 Gm/Ns 50 Ml IVPB 12/08/24 23:59 Infused Q6HR YODIT Infusion Ipratropium [place] 0.5 mg 12/06/24 14:00 12/08/24 04:24 Ipratropium Br 0.02% Inh Soln 0.5 Mg/2.5 Ml Vial INHALATION Not Given Q6HRT YODIT Levalbuterol HCl 1.25 mg 12/06/24 14:00 12/08/24 04:24 Levalbuterol Neb 1.25 Mg/3 Ml INHALATION Not Given Q6HRT YODIT Melatonin 5 mg 12/02/24 11:06 12/07/24 20:59 Melatonin 5 Mg Tablet PO 5 mg HS PRN Administration Insomnia Metoprolol Tartrate 100 mg 12/04/24 09:00 12/07/24 21:00 Metoprolol Tartrate 50 Mg Tab PO 100 mg Q12HR YODIT Administration Montelukast Sodium 10 mg 12/03/24 09:00 12/07/24 08:42 Montelukast Sodium 10 Mg Tablet PO 10 mg DAILY YODIT Administration Ondansetron HCl 4 mg 12/02/24 00:29 Ondansetron Inj 4 Mg/2 Ml Vial IV PUSH Q4H PRN Nausea Pantoprazole Sodium 40 mg 12/02/24 09:00 12/07/24 21:00 Pantoprazole 40 Mg Tablet PO 40 mg Q12HR YODIT Administration Potassium Chloride 20 meq 12/03/24 09:00 12/07/24 08:38 Potassium Chloride 20 Meq Packet (For Liquid) PO 20 meq DAILY YODIT Administration Prednisone 40 mg 12/03/24 08:00 12/07/24 08:43 Prednisone 20 Mg Tablet PO 40 mg DAILY@0800 YODIT Administration Quetiapine Fumarate 25 mg 12/02/24 21:00 12/07/24 21:02 Quetiapine Fumarate 25 Mg Tablet PO 25 mg HS YODIT Administration Ropinirole HCl 4 mg 12/05/24 22:10 12/07/24 20:59 Ropinirole Hcl 1 Mg Tablet PO 4 mg HS YODIT Administration Topiramate 200 mg 12/02/24 09:00 12/07/24 21:00 Topiramate 100 Mg Tablet PO 200 mg Q12HR YODIT Administration Trazodone HCl 50 mg 12/02/24 21:00 12/07/24 21:00 Trazodone Hcl 50 Mg Tablet PO 50 mg HS YODIT Administration Radiology Results: ITS Impressions Chest CTA 12/02/24 15:44 IMPRESSION: 1. No pulmonary embolism. 2. Bilateral basal atelectasis versus pneumonia. Clinical correlation advised. Venous Doppler Study 12/02/24 16:23 IMPRESSION: 1. Patent bilateral upper extremity veins. No evidence of venous thrombosis. Chest X-Ray 12/05/24 07:59 Impression: Probable minimal bibasilar pulmonary edema with discoid left basilar atelectasis. Renal Ultrasound 12/07/24 23:39 IMPRESSION: Normal study. Labs Labs: Laboratory Results - last 24 hr 12/02/24 12/02/24 12/02/24 11:41 12:56 17:13 WBC RBC Hgb Hct MCV MCH MCHC RDW Plt Count MPV Immature Gran % (Auto) Neut % (Auto) Lymph % (Auto) [place] % (Auto) Eos % (Auto) Baso % (Auto) Lymph # (Auto) [place] # (Auto) Eos # (Auto) Baso # (Auto) Abs Immat Gran (auto) Absolute Neuts (auto) Absolute Nucleated RBC Band Neutrophils % Nucleated RBC % Platelet Estimate Hypochromasia Schistocytes Sodium Potassium Chloride Carbon Dioxide Anion Gap BUN Creatinine Estim Creat Clear Calc Estimated GFR Glucose POC Capillary Glucose Calcium Total Bilirubin AST ALT Alkaline Phosphatase Total Creatine Kinase Total Protein Albumin Urine Eosinophils U Random Total Protein Ur Random Sodium Ur Random Urea Urine Total Volume Urine Creatinine Protein/Creat Ratio 2 Ur L.pneumophila Ag Not detected Mycoplasma pneumon IgM 299 SARS-CoV-2 RNA (RT-PCR) Not detected Urine Pneumococcal Ag Not detected 12/07/24 12/07/24 12/07/24 11:28 18:17 18:17 WBC RBC Hgb Hct MCV MCH MCHC RDW Plt Count MPV Immature Gran % (Auto) Neut % (Auto) Lymph % (Auto) [place] % (Auto) Eos % (Auto) Baso % (Auto) Lymph # (Auto) [place] # (Auto) Eos # (Auto) Baso # (Auto) Abs Immat Gran (auto) Absolute Neuts (auto) Absolute Nucleated RBC Band Neutrophils % Nucleated RBC % Platelet Estimate Hypochromasia Schistocytes Sodium Potassium Chloride Carbon Dioxide Anion Gap BUN Creatinine Estim Creat Clear Calc Estimated GFR Glucose POC Capillary Glucose 161 H Calcium Total Bilirubin AST ALT Alkaline Phosphatase Total Creatine Kinase Total Protein Albumin Urine Eosinophils None seen U Random Total Protein 20 Cancelled Ur Random Sodium 77 Ur Random Urea 479 Urine Total Volume Cancelled Urine Creatinine 55.1 Protein/Creat Ratio 2 0.36 H Ur L.pneumophila Ag Mycoplasma pneumon IgM SARS-CoV-2 RNA (RT-PCR) Urine Pneumococcal Ag 12/08/24 05:51 WBC 11.3 H RBC 3.58 L Hgb 9.5 L Hct 33.8 L MCV 94.4 MCH 26.5 MCHC 28.1 L RDW 14.9 H Plt Count 253 MPV 9.8 Immature Gran % (Auto) 1.6 H Neut % (Auto) 62.6 Lymph % (Auto) 25.8 [place] % (Auto) 7.8 Eos % (Auto) 1.9 Baso % (Auto) 0.3 Lymph # (Auto) 2.91 [place] # (Auto) 0.9 H Eos # (Auto) 0.2 Baso # (Auto) 0.0 Abs Immat Gran (auto) 0.18 H Absolute Neuts (auto) 7.1 H Absolute Nucleated RBC 0.000 Band Neutrophils % Not Reportable Nucleated RBC % 0.0 Platelet Estimate Adequate Hypochromasia 1+ Schistocytes None seen Sodium 139 Potassium 4.0 Chloride 103 Carbon Dioxide 30 Anion Gap 6 BUN 24 H Creatinine 1.68 H Estim Creat Clear Calc 39 Estimated GFR 30 L Glucose 109 POC Capillary Glucose Calcium 8.7 Total Bilirubin 0.4 AST 28 ALT 56 H Alkaline Phosphatase 65 Total Creatine Kinase < 20 L Total Protein 7.0 Albumin 3.5 Urine Eosinophils U Random Total Protein Ur Random Sodium Ur Random Urea Urine Total Volume Urine Creatinine Protein/Creat Ratio 2 Ur L.pneumophila Ag Mycoplasma pneumon IgM SARS-CoV-2 RNA (RT-PCR) Urine Pneumococcal Ag
[2024-12-08] MEDS: LEVALBUTEROL NEB 1.25 MG/3 ML INHALATION ×2 (08:58→13:29)
[2024-12-08] MEDS: IPRATROPIUM BR 0.02% INH SOLN 0.5 MG/2.5 ML VIAL INHALATION ×2 (08:58→13:29)
[2024-12-08] MEDS: TOPIRAMATE 100 MG TABLET 200 MG PO (09:13)
[2024-12-08] MEDS: MONTELUKAST SODIUM 10 MG TABLET PO (09:13)
[2024-12-08] MEDS: AMIODARONE HCL 200 MG TABLET PO (09:13)
[2024-12-08] MEDS: FERROUS SULFATE 325 MG TABLET DR PO (09:13)
[2024-12-08] MEDS: guaiFENesin 12 HR 600 MG TABCR 1200 MG PO (09:14)
[2024-12-08] MEDS: ESCITALOPRAM OXALATE 10 MG TABLET 20 MG PO (09:14)
[2024-12-08] MEDS: DULoxetine HCL 20 MG CAPSULE.DR 40 MG PO (09:14)
[2024-12-08] MEDS: PANTOPRAZOLE 40 MG TABLET PO (09:14)
[2024-12-08] MEDS: predniSONE 20 MG TABLET 40 MG PO (09:14)
[2024-12-08] MEDS: METOPROLOL TARTRATE 50 MG TAB 100 MG PO (09:14)
[2024-12-08] MEDS: POTASSIUM CHLORIDE 20 MEQ PACKET (FOR LIQUID) PO (09:16)
[2024-12-08 09:28] LABS: Adenovirus DNA Not Detected (Not Detected); Chlamydophila pneumoniae Not Detected (Not Detected); Coronavirus 229E Not Detected (Not Detected); Coronavirus HKU1 Not Detected (Not Detected); Coronavirus NL63 Not Detected (Not Detected); Coronavirus OC43 Not Detected (Not Detected); Human Metapneumovirus Not Detected (Not Detected); Human Parainfluenza Virus 1 Not Detected (Not Detected); Human Parainfluenza Virus 2 Not Detected (Not Detected); Human Parainfluenza Virus 3 Not Detected (Not Detected); Human Parainfluenza Virus 4 Not Detected (Not Detected); Human RSV B Not Detected (Not Detected); Influenza A Not Detected (Not Detected); Influenza B Not Detected (Not Detected); Mycoplasma pneumoniae Not Detected (Not Detected); Rhinovirus/Enterovirus Not Detected (Not Detected)
--- NOTE | 2024-12-08 11:37 | PCRCNOTE ---
Home O2 eval done, RN notified. Pt has all home O2 equipment when she d/c. [facility] is her DME. 2 liters rest and activity
--- NOTE | 2024-12-08 13:01 | P.PNNP_ITS ---
Progress Note: A&P Assessment and Plan (1) Acute kidney injury: Code(s): N17.9 - Acute kidney failure, unspecified Status: Acute Assessment and Plan: * suspect multifactorial: * diuretics/diuresis * contrast exposure (CTA of chest on 12/02) * infection (bronchitis/pneumonia + UTI) * hypoxia (?) * other (?) * evaluation to date noted: * renal ultrasound normal * urine electrolytes non-prerenal * urine eosinophils negative * mild proteinuria * CPK low * follow trend of repeat labs and UOP (2) Chronic kidney disease, stage 3: Code(s): N18.30 - Chronic kidney disease, stage 3 unspecified Status: Acute Assessment and Plan: * baseline creatinine can fluctuate to extremes * prior to August 2022, renal function normal * then had FARZANEH/ARF due to ATN during August 2022 hospitalization requiring temporary dialysis - creatinine then fluctuated around 1.3 - 1.9mg/dl during 2022 * seemed to stabilize around 1.21mg/dl in 2023 * admission creatinine (12/01/24) 1.06mg/dl (although this might be a dilutional value since she was volume overloaded) * suspect creatinine runs around 1.0 - 1.5mg/dl at its best (but probably is a bit higher than this) * this causes her to fluctuate between CKD stage 3A and stage 3B * baseline CKD likely due to CHF, vascular disease, COPD, and obesity and necessity of diuretic therapy (3) Acute on chronic respiratory failure with hypoxia and hypercapnia: Code(s): J96.21 - Acute and chronic respiratory failure with hypoxia; J96.22 - Acute and chronic respiratory failure with hypercapnia Status: Acute Assessment and Plan: * due to a combination of COPD and CHF * clinical improvement noted with current interventions/therapy * continue supportive therapy (see #4 and #5) (4) Acute exacerbation of chronic obstructive pulmonary disease: Code(s): J44.1 - Chronic obstructive pulmonary disease with (acute) exacerbation Status: Acute Assessment and Plan: * slow improvement * on antibiotics and steroids * on supplemental oxygen * viral testing for RSV/influenza/COVID negative * CTA of chest negative for PE * Pulmonary following with recommendations noted (5) Acute on chronic congestive heart failure: Code(s): I50.9 - Heart failure, unspecified Status: Acute Assessment and Plan: * suggested on admission * BNP elevated * CXR findings with pulmonary vascular congestion/pulmonary edema * was on lasix but on hold due to #1 * will need to restart once renal function improves/stabilizes * follow daily weights, I/Os, and respiratory status * Cardiology following (6) Atrial fibrillation: Code(s): I48.91 - Unspecified atrial fibrillation Status: Chronic Assessment and Plan: * rate control strategy * anticoagulation on hold due to history of rectus sheath hematoma (?) (7) Anemia: Code(s): D64.9 - Anemia, unspecified Status: Inactive Assessment and Plan: * probably related to FARZANEH, CKD, and acute illness * follow trend of H/H Will continue to follow. L Subjective Date/time seen: 12/08/24 13:01 Interval history: Follow-up for acute kidney injury/acute renal failure on chronic kidney disease. Renal function/creatinie relatively stable if not a tad better by AM labs; continues to make reasonable urine output; breathing/respiratory status appears stable if not better at the time of my visit; no other acute issues/events overnight or earlier this morning; feeling reasonably well. Exam 2 Narrative: General: WD/WN female in NAD Heart: normal S1 and S2; no rub Lungs: coarse breath sounds bilaterally Abdomen: soft, nontender, nondistended, positive bowel sounds Extremities: no cayanosis or clubbing; trace edema Skin: warm and dry Objective Data Vital Signs Vital Signs: Vital Signs Temp Pulse Resp BP Pulse Ox O2 Del Method O2 Flow Rate 12/08/24 13:00 97.0 F L 55 L 14 113/57 L 100 12/08/24 11:00 63 95 Nasal Cannula 2 12/08/24 10:50 78 94 Nasal Cannula 2 12/08/24 10:48 54 L 93 Nasal Cannula 2 12/08/24 10:46 88 L Nasal Cannula 1 12/08/24 10:45 87 L Room Air 12/08/24 09:17 53 L 18 12/08/24 09:14 56 L 12/08/24 09:13 57 L 12/08/24 09:13 96 Nasal Cannula 2 12/08/24 09:13 56 L 12/08/24 08:59 55 L 20 12/08/24 08:59 92 Nasal Cannula 2 12/08/24 06:00 98.0 F 60 18 134/63 100 12/08/24 04:00 49 L 12/08/24 00:00 53 L 12/07/24 22:05 57 L 18 96 High Flow Nasal Cannula 5 12/07/24 22:00 98.4 F 61 18 156/58 H 95 12/07/24 21:00 60 12/07/24 20:12 57 L 18 12/07/24 20:05 60 16 12/07/24 20:00 60 12/07/24 20:00 94 Nasal Cannula 2 12/07/24 17:08 61 Intake/Output Intake/Output: Intake & Output 12/05/24 12/06/24 12/07/24 12/08/24 23:59 23:59 23:59 23:59 Intake Total 1999 1676 1520 627 Output Total 3050 1000 Balance -3320 212 0870 627 Meds/Results Medications: Active Medications Generic Name Dose Route Start Last Admin Trade Name Freq PRN Reason Stop Dose Admin Acetaminophen 650 mg 12/02/24 03:29 Acetaminophen 325 Mg Tablet PO Q4H PRN Mild Pain (1-3) or Fever Amiodarone HCl 200 mg 12/04/24 09:00 12/08/24 09:13 Amiodarone Hcl 200 Mg Tablet PO 200 mg BID YODIT Administration Amitriptyline HCl 10 mg 12/02/24 21:00 12/07/24 21:01 Amitriptyline Hcl 10 Mg Tablet PO 10 mg HS YODIT Administration Duloxetine HCl 40 mg 12/05/24 09:00 12/08/24 09:14 Duloxetine Hcl 20 Mg Capsule.Dr PO 40 mg Q12HR YODIT Administration Escitalopram Oxalate 20 mg 12/02/24 09:00 12/08/24 09:14 Escitalopram Oxalate 10 Mg Tablet PO 20 mg DAILY YODIT Administration Ferrous Sulfate 325 mg 12/02/24 09:00 12/08/24 09:13 Ferrous Sulfate [address] PO 325 mg BID YODIT Administration Furosemide 20 mg 12/06/24 09:00 Furosemide 20 Mg Tablet PO BID YODIT Guaifenesin 1,200 mg 12/07/24 09:00 12/08/24 09:14 Guaifenesin 12 Hr 600 Mg Tabcr PO 1,200 mg Q12HR YODIT Administration Heparin Sodium (Porcine) 5,000 units 12/02/24 06:00 12/08/24 14:06 Heparin Sodium 5,000 Units/Ml Vial SUB-Q 5,000 units Q8HR YODIT Administration Piperacillin/Tazobactam/Dextrose 3.375 gm in 50 mls @ 100 mls/hr 12/02/24 04:00 12/08/24 11:48 Zosyn 3.375 Gm/Ns 50 Ml IVPB 12/08/24 23:59 Infused Q6HR YODIT Infusion Ipratropium [place] 0.5 mg 12/06/24 14:00 12/08/24 13:29 Ipratropium Br 0.02% Inh Soln 0.5 Mg/2.5 Ml Vial INHALATION 0.5 mg Q6HRT YODIT Administration Levalbuterol HCl 1.25 mg 12/06/24 14:00 12/08/24 13:29 Levalbuterol Neb 1.25 Mg/3 Ml INHALATION 1.25 mg Q6HRT YODIT Administration Melatonin 5 mg 12/02/24 11:06 12/07/24 20:59 Melatonin 5 Mg Tablet PO 5 mg HS PRN Administration Insomnia Metoprolol Tartrate 100 mg 12/04/24 09:00 12/08/24 09:14 Metoprolol Tartrate 50 Mg Tab PO 100 mg Q12HR YODIT Administration Montelukast Sodium 10 mg 12/03/24 09:00 12/08/24 09:13 Montelukast Sodium 10 Mg Tablet PO 10 mg DAILY YODIT Administration Ondansetron HCl 4 mg 12/02/24 00:29 Ondansetron Inj 4 Mg/2 Ml Vial IV PUSH Q4H PRN Nausea Pantoprazole Sodium 40 mg 12/02/24 09:00 12/08/24 09:14 Pantoprazole 40 Mg Tablet PO 40 mg Q12HR YODIT Administration Potassium Chloride 20 meq 12/03/24 09:00 12/08/24 09:16 Potassium Chloride 20 Meq Packet (For Liquid) PO 20 meq DAILY YODIT Administration Prednisone 40 mg 12/03/24 08:00 12/08/24 09:14 Prednisone 20 Mg Tablet PO 40 mg DAILY@0800 YODIT Administration Quetiapine Fumarate 25 mg 12/02/24 21:00 12/07/24 21:02 Quetiapine Fumarate 25 Mg Tablet PO 25 mg HS YODIT Administration Ropinirole HCl 4 mg 12/05/24 22:10 12/07/24 20:59 Ropinirole Hcl 1 Mg Tablet PO 4 mg HS YODIT Administration Topiramate 200 mg 12/02/24 09:00 12/08/24 09:13 Topiramate 100 Mg Tablet PO 200 mg Q12HR YODIT Administration Trazodone HCl 50 mg 12/02/24 21:00 12/07/24 21:00 Trazodone Hcl 50 Mg Tablet PO 50 mg HS YODIT Administration Radiology Results: ITS Impressions Chest CTA 12/02/24 15:44 IMPRESSION: 1. No pulmonary embolism. 2. Bilateral basal atelectasis versus pneumonia. Clinical correlation advised. Venous Doppler Study 12/02/24 16:23 IMPRESSION: 1. Patent bilateral upper extremity veins. No evidence of venous thrombosis. Chest X-Ray 12/05/24 07:59 Impression: Probable minimal bibasilar pulmonary edema with discoid left basilar atelectasis. Renal Ultrasound 12/07/24 23:39 IMPRESSION: Normal study. Labs Labs: Laboratory Tests 12/08/24 05:51 12/08/24 05:51 Calcium 8.7 Total Bilirubin 0.4 AST 28 ALT 56 H Alkaline Phosphatase 65 Total Creatine Kinase < 20 L Total Protein 7.0 Albumin 3.5 Microbiology 12/01/24 21:26 Blood Blood Culture - Final 12/01/24 21:26 Blood Blood Culture - Final
--- NOTE | 2024-12-08 15:04 | P.DS_ITS ---
DS: Admitting Diagnosis Discharge Date 12/08/24 Admitting Diagnosis Shortness of breath DS: Discharge Diagnosis Discharge Diagnosis (1) Acute kidney injury: Code(s): N17.9 - Acute kidney failure, unspecified Status: Acute (2) Atrial flutter with rapid ventricular response: Code(s): I48.92 - Unspecified atrial flutter Status: Acute (3) Acute on chronic respiratory failure with hypoxia and hypercapnia: Code(s): J96.21 - Acute and chronic respiratory failure with hypoxia; J96.22 - Acute and chronic respiratory failure with hypercapnia Status: Acute DS: Summary Hospital Course Hospital Course: Cony Shin is a 64-year-old female with a medical history significant for obesity, depression with anxiety, hypertension, insomnia, restless leg syndrome, chronic hypoxia. CXR showed cardiomegaly with cardiac decompensation and pulmonary edema with pneumonitis in the lower lobes in not excluded. She was managed for COPD exacerbation with Steroid and bronchodilators, pulmonology was consulted and patient was initially on BiPAP later transitioned to baseline oxygen. Pulmonology carried out nocturnal oximetry and patient requiring 5 liters oxygen. Completed 5 days of Antibiotics. Was in Atrial flutter with RVR, cardiology was consulted and patient was placed on Amiodarone, metoprolol and noted that patient has been off Eliquis for the past 2 years due to abdominal rectal sheath hematoma. Patient will continue Amiodarone 20mmg bid to complete on 12/14 and then continue at 200mg daily. Continue Metoprolol Lopressor 100mg bid per cards. F/u with cards Also managed for Jil on CKD, nephrology was consulted and involved and noted that patient's Creatinine fluctuated between 1.3-1.9 and patient may be at her baseline at 1.68 and 1.06 on admission may have come from dilution. PT/OT eval recommended Home health. F/u with PCP in 3-5 days, F/u cardiology, pulmonology and Nephrology as instructed. Time Spent with Patient Time attestation: Total time spent providing and/or coordinating discharge services: DS: Data Data Completed and Pending Labs on day of discharge: Labs from last 24 hours 12/08/24 12/07/24 12/07/24 05:51 18:17 18:17 WBC 11.3 H RBC 3.58 L Hgb 9.5 L Hct 33.8 L MCV 94.4 MCH 26.5 MCHC 28.1 L RDW 14.9 H Plt Count 253 MPV 9.8 Immature Gran % (Auto) 1.6 H Neut % (Auto) 62.6 Lymph % (Auto) 25.8 [place] % (Auto) 7.8 Eos % (Auto) 1.9 Baso % (Auto) 0.3 Lymph # (Auto) 2.91 [place] # (Auto) 0.9 H Eos # (Auto) 0.2 Baso # (Auto) 0.0 Abs Immat Gran (auto) 0.18 H Absolute Neuts (auto) 7.1 H Absolute Nucleated RBC 0.000 Band Neutrophils % Not Reportable Nucleated RBC % 0.0 Platelet Estimate Adequate Hypochromasia 1+ Schistocytes None seen Sodium 139 Potassium 4.0 Chloride 103 Carbon Dioxide 30 Anion Gap 6 BUN 24 H Creatinine 1.68 H Estim Creat Clear Calc 39 Estimated GFR 30 L Glucose 109 Calcium 8.7 Total Bilirubin 0.4 AST 28 ALT 56 H Alkaline Phosphatase 65 Total Creatine Kinase < 20 L Total Protein 7.0 Albumin 3.5 Urine Eosinophils None seen U Random Total Protein Cancelled 20 Ur Random Sodium 77 Ur Random Urea 479 Urine Total Volume Cancelled Urine Creatinine 55.1 Protein/Creat Ratio 2 0.36 H Nasal RSV Type A (PCR) Nasal RSV Type B (PCR) Chlamy pneumoniae PCR Adenovirus DNA Human Bocavirus (DESHAUN) Coronavirus Type OC43 Coronavirus Type HKU1 Coronavirus Type 229E Coronavirus Type NL63 Human Metapneumovir PCR Influenza A (PCR) Influenza A (H1) RNA Influenza A (H3) PCR Ur L.pneumophila Ag Mycoplasma pneumon IgM M. pneumoniae DNA Parainfluenza PCR Parainfluenza 2 (PCR) Parainfluenza 3 RNA (PCR) Parainfluenza 4 (PCR) Rhino/Enterovirus (DESHAUN) SARS-CoV-2 RNA (RT-PCR) Urine Pneumococcal Ag Influenza Type B (PCR) Misc Test Comment 12/02/24 12/02/24 12/02/24 17:13 12:56 11:41 WBC RBC Hgb Hct MCV MCH MCHC RDW Plt Count MPV Immature Gran % (Auto) Neut % (Auto) Lymph % (Auto) [place] % (Auto) Eos % (Auto) Baso % (Auto) Lymph # (Auto) [place] # (Auto) Eos # (Auto) Baso # (Auto) Abs Immat Gran (auto) Absolute Neuts (auto) Absolute Nucleated RBC Band Neutrophils % Nucleated RBC % Platelet Estimate Hypochromasia Schistocytes Sodium Potassium Chloride Carbon Dioxide Anion Gap BUN Creatinine Estim Creat Clear Calc Estimated GFR Glucose Calcium Total Bilirubin AST ALT Alkaline Phosphatase Total Creatine Kinase Total Protein Albumin Urine Eosinophils U Random Total Protein Ur Random Sodium Ur Random Urea Urine Total Volume Urine Creatinine Protein/Creat Ratio 2 Nasal RSV Type A (PCR) Not detected Nasal RSV Type B (PCR) Not detected Chlamy pneumoniae PCR Not detected Adenovirus DNA Not detected Human Bocavirus (DESHAUN) Not detected Coronavirus Type OC43 Not detected Coronavirus Type HKU1 Not detected Coronavirus Type 229E Not detected Coronavirus Type NL63 Not detected Human Metapneumovir PCR Not detected Influenza A (PCR) Not detected Influenza A (H1) RNA Not detected Influenza A (H3) PCR Not detected Ur L.pneumophila Ag Not detected Mycoplasma pneumon IgM 299 M. pneumoniae DNA Not detected Parainfluenza PCR Not detected Parainfluenza 2 (PCR) Not detected Parainfluenza 3 RNA (PCR) Not detected Parainfluenza 4 (PCR) Not detected Rhino/Enterovirus (DESHAUN) Not detected SARS-CoV-2 RNA (RT-PCR) Not detected Urine Pneumococcal Ag Not detected Influenza Type B (PCR) Not detected Misc Test Comment see note Discharge Plan Discharge Attending physician on discharge: Al Crawford Consulting providers: Zay Gray; Rafiq Gutierrez; Sy Osborne Discharging Clinician: Al Crawford Anticipated Discharge Date/Time: 12/08/24 14:37 Patient Disposition: Home with Home Health Service Activity: as tolerated Diet: as tolerated and heart healthy Discharge Instructions: Per Care Coordination: [facility] ([phone]) will call to set up initial visit. Patient Instructions: Antibiotic Form, Heart Failure (DC) Patient Language: Togolese Stand Alone Forms: General Discharge Information Follow-up/Referrals: Venancio Breaux DO [Primary Care Provider] - (F/u with PCP in 3-5 days ) Sy Osborne MD [Physician] - (F/u with Nephrology as instructed ) Rafiq Gutierrez MD [Physician] - (F/u with cardiology as instructed ) Zay Gray MD [Physician] - (F/u with Pulmonology as instructed. ) Discharge Medications: [place]im Ellipta 100-62.5-25 mcg blister with device 1 inh inhalation DAILY Qty: 28 1RF amiodarone [Pacerone] 200 mg Tablet 200 mg PO BID 6 Days Qty: 12 0RF metoprolol tartrate 50 mg Tablet 100 mg PO Q12HR 30 Days Qty: 120 0RF amiodarone 200 mg tablet 200 mg PO DAILY 30 Days Qty: 30 0RF Rx Instructions: Start 200mg daily from 12/15/24 prednisone 10 mg tablet 10 mg PO DIRECTED Qty: 32 0RF Rx Instructions: see taper instructions 4 tabs daily x 3 days, then, 3 tabs daily x 3 days, 2 tabs daily x 3days, 1 tab daily x 3 days, then 5mg daily x 3 days, then stop. Continued amitriptyline 10 mg tablet 10 mg PO HS topiramate 100 mg tablet 200 mg PO BID ropinirole 4 mg tablet 4 mg PO HS trazodone 50 mg tablet 50 mg PO HS omeprazole 40 mg capsule,delayed release(DR/EC) 40 mg PO DAILY montelukast 10 mg tablet 10 mg PO DAILY escitalopram oxalate 20 mg tablet 20 mg PO DAILY albuterol sulfate [Proventil HFA] 90 mcg/actuation Hfa Aerosol Inhaler 2 puff inhalation QID PRN (Reason: shortness of breath) Qty: 1 0RF potassium chloride 20 mEq Packet 20 meq PO DAILY Qty: 30 0RF ferrous sulfate 325 mg (65 mg iron) tablet 325 mg PO BID Qty: 60 0RF duloxetine 20 mg capsule,delayed release(DR/EC) 40 mg PO BID quetiapine 25 mg tablet 25 mg PO HS magnesium hydroxide [Milk of Magnesia] 400 mg/5 mL Suspension 30 ml PO HS PRN (Reason: Constipation) melatonin 5 mg Capsule 5 mg PO HS PRN (Reason: Insomnia) furosemide 20 mg Tablet 20 mg PO BID Qty: 60 0RF Discontinued ciprofloxacin HCl 250 mg tablet 250 mg PO Q12H Patient Comments: x 7 days. Started 11/2024 metoprolol succinate [Toprol XL] 25 mg Tablet Extended Release 24 Hr 25 mg PO QAM Qty: 30 0RF Eliquis 5 mg Tablet 5 mg PO BID Qty: 60 0RF Date of admission: 12/02/24 08:51 Primary Care Provider: Venancio Breaux Admitting Provider: Gerardo Patel Attending physician on admission: Al Crawford Condition: Stable
--- NOTE | 2024-12-09 07:14 | P.CDI_ITS ---
CDI Query Clarification Request Patient with a BMI of 43.0 please provide a diagnosis to accompany this finding: * Overweight * Obesity * Morbid Obesity * Other/Unknown <Octavia Anguiano RN - Last Filed: 12/09/24 07:15> Clarified Diagnosis Clarified Diagnosis: * Morbid Obesity <Al Crawford MD - Last Filed: 12/09/24 07:57>
--- NOTE | 2024-12-09 07:14 | WPDCDIQUERY2 ---
CDI Query Clarification Request Patient with a BMI of 43.0 please provide a diagnosis to accompany this finding: Overweight Obesity Morbid Obesity Other/Unknown <Octavia Anguiano RN - Last Filed: 12/09/24 07:15> Clarified Diagnosis Clarified Diagnosis: Morbid Obesity <Al Crawford MD - Last Filed: 12/09/24 07:57>
--- NOTE | 2024-12-10 15:08 | PC.NURSE ---
Patient called with questions regarding discharge medications. All questions answered. Patient prompted to call with any further questions or concern. Patient voiced understanding.
== END 2024-12-08 16:12 | disposition home health service (06) | DRG 190 ==
LOC: ANHED 12-02 00:15 → ANHIMU 12-02 00:55 → ANHICU 12-03 11:11 → ANHIMU 12-03 11:23 → ANH3MEDSUR 12-05 17:08
PROVIDERS: General Practice; Internal Medicine Nephrology; Internal Medicine Pulmonary Disease; Admitting Provider Internal Medicine; Emergency Provider Emergency Medicine; PCP Family Medicine; Visit Provider Internal Medicine
DX: J44.1 Chronic obstructive pulmonary disease with (acute) exacerbation (principal); I50.33 Acute on chronic diastolic (congestive) heart failure; J96.21 Acute and chronic respiratory failure with hypoxia; J96.22 Acute and chronic respiratory failure with hypercapnia; I48.92 Unspecified atrial flutter; N17.9 Acute kidney failure, unspecified; I13.0 Hypertensive heart and chronic kidney disease with heart failure and stage 1 through stage 4 chronic kidney disease, or unspecified chronic kidney disease; Z68.41 Body mass index [BMI] 40.0-44.9, adult; N39.0 Urinary tract infection, site not specified; I48.91 Unspecified atrial fibrillation; N18.30 Chronic kidney disease, stage 3 unspecified; K21.9 Gastro-esophageal reflux disease without esophagitis; E66.01 Morbid (severe) obesity due to excess calories; G25.81 Restless legs syndrome; F32.A Depression, unspecified; F41.9 Anxiety disorder, unspecified; Z96.652 Presence of left artificial knee joint; Z20.822 Contact with and (suspected) exposure to COVID-19; Z87.891 Personal history of nicotine dependence; Z79.01 Long term (current) use of anticoagulants; Z99.81 Dependence on supplemental oxygen; Z86.73 Personal history of transient ischemic attack (TIA), and cerebral infarction without residual deficits
CPT/HCPCS: 36415; 36600; 71045; 71275; 76775; 80053; 80061; 81001; 82103; 82104; 82550; 82570; 82803; 82805; 82948; 83036; 83605; 83690; 83735; 83880; 84145; 84156; 84300; 84484; 84540; 85018; 85025; 85380; 85610; 85730; 85999; 86738; 87040; 87449; 87633; 87637; 87899; 93005; 93970; 94002; 94003; 94640; 94660; 94762; 96365; 96366; 96375; 97110; 97161; 97165; 97530; 97535; 99291; A9270; C8929; G0378; J0153; J0282; J0456; J1160; J1644; J1938; J2060; J2543; J2919; J3473; J3475; J7512; Q9957; Q9967

== ENCOUNTER 2024-12-28 00:41 | Inpatient (IN) | payer MEDICARE, MEDICAID, SELFPAY ==
[2024-12-28] VITALS (37 sets, daily range): BP systolic 99–143; BP diastolic 31–117; PULSE 65–161; RESP 12–90; TEMP 36.3–37.3; O2SAT 90–100; BMI 40.6
--- NOTE | ~2024-12-28 | CT_ITS ---
CLINICAL INDICATION: Pneumonia suspected clinically COMPARISON: Reference is made to plain film evaluation of the chest, performed approximately 12 hours earlier and dating back to 12/05/2024. Reference is also made to a CT angiogram of the chest dated 10/20/2022 TECHNIQUE: Multiple contiguous axial images of the chest was performed without the administration of intravenous contrast. This CT examination was performed utilizing dose reduction techniques. DLP: 593 mGy-cm FINDINGS/OBSERVATIONS: Lung: bibasilar atelectasis, unchanged from chest radiograph. The remainder the lungs are clear. HEART: The heart is borderline enlarged, without pericardial effusion. MEDIASTINUM: Redemonstration of a large left thyroid nodule, increased in size from 2022 examination. No pathologically enlarged or morphologically suspicious lymph nodes are identified within the medias tinum, bilateral axilla, within the soft tissues of the anterior chest wall. SOFT TISSUES OF THE CHEST: Unremarkable. BONES OF THE CHEST: No acute fracture. No lytic or blastic lesions are identified. IMPRESSION: No cross-sectional imaging evidence to suggest the presence of pneumonia. Bibasilar atelectasis, unchanged from a recent radiograph, as detailed above.. Reviewed, dictated and finalized at location A.
--- NOTE | ~2024-12-28 | XR_ITS ---
MODIFIED ESOPHAGRAM HISTORY: Coughing when swallowing TECHNIQUE: Modified barium esophagram was performed on 01/03/2025. I administered fluoroscopy and perf ormed the exam with speech pathologist. Patient was seated for lateral fluoroscopic imaging for magy stion of thin liquids, pudding, solids and quantified amounts, followed by thin liquids in uncontroll ed amounts. This was recorded on tape. A single fluoroscopic spot image was also recorded. The DAP fo r this procedure was 2.267 Gycm2. The amount of fluoroscopy time used during this procedure was 2.0 m inutes. FINDINGS: Oral stage: Adequate function. Pharyngeal stage: Adequate function. Cervical/esophageal stage: Adequate function. IMPRESSION: Patient tolerated regular consistency oral feedings in the upright position. Please colleen elate with speech pathologist findings and specific feeding recommendations. Reviewed, dictated and finalized at location A. IMPRESSION: Patient tolerated regular consistency oral feedings in the upright position. Please correlate with speech pathologist findings and specific feedi ng recommendations.
--- NOTE | ~2024-12-28 | XR_ITS ---
EXAMINATION: XR chest 1V portable DATE: 01/02/2025 09:23 INDICATION: COPD TECHNIQUE: frontal view of the chest was obtained. COMPARISON: Chest radiograph and CT dated 12/28/2024 FINDINGS: Mild increase in opacities at the bilateral lower lung zones and now on the right middle lung zone wh ich could represent worsening atelectasis or pneumonia. No pleural effusion or pneumothorax. Cardiome diastinal silhouette is within normal limits for AP technique. IMPRESSION: 1. Increasing opacities in the right mid and bilateral lower lung zones which could represent worseni ng atelectasis or pneumonia. Reviewed, dictated and finalized at location A. IMPRESSION: 1. Increasing opacities in the right mid and bilateral lower lung zones which c ould represent worsening atelectasis or pneumonia.
--- NOTE | ~2024-12-28 | XR_ITS ---
Portable chest x-ray Comparison: 12/05/2024 Clinical History: Dyspnea Findings: Probable chronic interstitial change with basilar predominance. No other consolidation or pleural effusion evident. Cardiomediastinal silhouette is stable. Bones and soft tissues are unremar kable. Impression: Probable chronic interstitial disease with basilar predominance. Reviewed, dictated and finalized at [facility]. Impression: Probable chronic interstitial disease with basilar predominance.
--- NOTE | ~2024-12-28 | CT_ITS ---
EXAMINATION: CT diagnostic chest wo con DATE: 01/05/2025 13:28 INDICATION: RIGGINS, wheezing TECHNIQUE: Computed tomography (CT) of the chest was performed without intravenous contrast. Addition al 3D reconstructions utilizing coronal maximum intensity projection (MIP) were performed. Automated exposure control and iterative reconstruction technique were employed. The dose-length product was 70 5.77 mGy-cm. COMPARISON: 12/28/2024 FINDINGS: Mild emphysema. Small region with increased reticulonodular pattern at the posterior segment of the r ight upper lobe consistent with progression of pneumonia. Linear and bandlike atelectasis in the bila teral lower lobes and in the lingula. No pulmonary edema or pleural effusion. Heart size is normal. A therosclerotic coronary artery calcium location and aortic valve calcification. Thoracic aorta normal in caliber. No pathologically enlarged thoracic lymphadenopathy. Again seen is a 3.5 cm mass extendi ng posteriorly from the left thyroid lobe. Cholecystectomy clips at the gallbladder fossa. Moderate t horacic spondylosis. IMPRESSION: 1. Mild emphysema with right upper lobe pneumonia. 2. 3.5 cm left thyroid mass. Reviewed, dictated and finalized at location A.
--- NOTE | 2024-12-28 00:45 | ECG_ITS ---
Test Date: 2024-12-28 00:59:47 Measurements Intervals [place] Rate: 74 P: -76 [place]: 165 QRS: 19 QRSD: 154 T: 22 QT: 428 QTc: 476 Interpretive Statements SINUS RHYTHM RIGHT BUNDLE BRANCH BLOCK [120+ ms QRS DURATION, UPRIGHT V1, 40+ ms S IN I/aVL/V4/V5/V6] ABNORMAL ECG Compared to ECG 12/03/2024 20:00:54 No significant changes Electronically Signed On 12-28-2024 07:25:16 CDT by Zay Bridges M.D.
--- OUTSIDE RECORDS SUMMARY | 2024-12-28 00:53 | XMS_ITS | Clinical Summary ---
Author Organization [facility] Address [address] [address] Phone Care Team Providers Care Line And Frame Poler Name Role Phone Unavailable Primary Care Provider [...]
--- OUTSIDE RECORDS SUMMARY | 2024-12-28 00:53 | XMS_ITS | Clinical Summary ---
Author Organization [facility] Address [address] [place] [address] Care Team Providers Care Regional Sales Director Name Role Phone Heri Juarez MD Unavailable Lucho Golden MD Primary Care Provider [phone] Allergies No known active allergies Medications furosemide [...] of other vein of right upper extremity ([facility]),PAD (peripheral artery disease) 20-30 MMHg Compression Stocking [...] (DVT) of right upper extremity, unspecified vein ([facility]) 11/27/2020 Acute deep vein thrombosis ( DVT) of other vein of right upper extremity ([facility]) 10/12/2018 PAD (peripheral artery disease) 10/12/2018 Thrombus 09/15/2018 Jugular vein occlusion ([facility]) 019 Family History Relation Status Comments Father Maternal Grandfather Maternal Grandmother Mother Paternal Grandfather Paternal Grandmother Sister 1 Alive Sister 2 Alive Social History Tobacco Use Types Packs/Day Years Used Date Smoking Tobacco: Former Cigarettes Q uit: 2015 Smokeless Tobacco: Never Alcohol Use Standard Drinks/Week Comments No 0 (1 standard drink = 0.6 oz pur e alcohol) [facility] Utilities Answer Date Recorded In the past [...] place to sleep or slept in a prison (including now)? No 07/13/2023 Comments No Sex and Gender Information Value Date Recorded Sex Assigned at Not on file Legal Sex Female 3:29 PM TONGSMAN Gender Identity Not on file Sexual Orientation Not on file Occupation Industry Job Start Date Job End Date Not on file Not on file Not on file Not on file Last Filed Vital Signs Vital Sign Reading Time Taken Comments Blood Pressure 154/46 07/20/2023 7:51 AM TONGSMAN Pulse 94 07/20/2023 7:59 AM TONGSMAN Temperature 36.8 C (98.2 F) 07/20/2023 7:51 AM TONGSMAN Respiratory Rate 18 07/19/2023 4:11 AM TONGSMAN Oxygen Saturation 95% 07/20/2023 7:51 AM TONGSMAN Inhaled Oxygen Concentration - - Weight 115.8 kg (255 lb 4.7 oz) 07/15/2023 2:53 AM TONGSMAN Height 165.1 cm (5' 5 ) 07/13/2023 9:51 PM TONGSMAN Body Mass Index 42.48 07/13/2023 9:51 PM TONGSMAN Plan of Treatment Health Maintenance Due Date Last Done Comments ASCVD LDL 1958 ASCVD Statin 1958 Colorectal Cancer Screening Colonoscopy (10 Years) 1958 DTaP, Tdap and Td Vaccines (1 - Tdap) 1977 Mammogram Screening 1998 Pneumococcal Vaccine: 50+ Years (1 of 1 - PCV) 2008 Zoster Vaccines (1 of 2) 2008 RSV Immunization or 60+ Years (1 - Risk 60-74 years 1-dose series) 2018 Annual Medicare Wellness Visit 2023 Dexa Scan (General) 2023 COVID-19 Vaccine (1 - 2023- season) 2024 Hepatitis C Completed 09/16/2022, 08/25, [...] planning Lifestyle No Gricelda Arreaga, RN Insurance [facility] Advance Directives * Full Code (Latest Code Status on File) Date Activated Date Inactivated Comments 07/13/2023 7:44 PM 07/20/2023 3:30 PM * Full Code Date Activated Date Inactivated Comments 09/14/2018 7:08 PM 09/19/2018 4:55 PM Care Teams Regional Sales Director Relationship Specialty Start Date End Date Lucho Golden MD [address] [place] [address] PCP - General INTERNAL MEDICINE 07/14/23 Heri Juarez MD Vascular/Pipe Fitter Helper INTERNAL MEDICINE 09/21/18
--- OUTSIDE RECORDS SUMMARY | 2024-12-28 00:53 | XMS_ITS | Clinical Summary ---
Author Organization [facility] Address [address] [place] [address] Phone Care Team Providers Care Supervisor [employer]ace Name Role Phone Unavailable Primary Care Provider [...] on file Legal Sex Female 10:10 AM STEEL SPAR OPERATOR Gender Identity Not on file Sexual Orientation Not on file Last Filed Vital Signs Vital Sign Reading Time Taken Comments Blood Pressure 116/68 09/24/2022 11:01 AM STEEL SPAR OPERATOR Pulse 96 09/24/2022 11:01 AM STEEL SPAR OPERATOR Temperature 36.3 C (97.4 F) 09/24/2022 11:01 AM STEEL SPAR OPERATOR Respiratory Rate 16 09/24/2022 11:0 1 AM STEEL SPAR OPERATOR Oxygen Saturation 92% 09/24/2022 4:5 5 PM STEEL SPAR OPERATOR Inhaled Oxygen Concentration - - Weight 99.8 kg (220 lb) 09/22/2022 6:00 AM STEEL SPAR OPERATOR bedscale not zeroed Height 167.6 cm (5' 6 ) 09/17/2022 10:2 8 AM STEEL SPAR OPERATOR Body Mass Index 35.51 09/17/2022 10:28 AM STEEL SPAR OPERATOR Plan of Treatment Health Maintenance Due Date [...] INFLUENZA VACCINE (#1) 2024 Insurance [place]ICAID [place] [facility] Address: [address] [address] [place] [address] Advance Directives For more information, please contact: [phone] * Full Code (Latest Code Status on File) Date Activated Date Inactivated Comments 09/11/2022 7:58 PM 09/24/2022 7:43 PM
[2024-12-28 01:05] LABS: Fractional Inspired Oxygen 21 %; HCO3 VBG 37.1 mEq/l (24.0-30.0); PO2 VBG 42.9 mmHg (35.0-45.0); pH VBG 7.329 (7.300-7.400)
[2024-12-28 01:08] LABS: PCO2 VBG 72.1 mmHg (42.0-48.0)
[2024-12-28 01:12] LABS: Basophils Percent Auto 0.3 % (0.2-1.2); Eosinophils Absolute Auto 0.2 K/mm3 (0-0.3); Eosinophils Percent Auto 1.8 % (0-4.4); Hematocrit 36.4 % (37.0-47.0); Hemoglobin 10.6 g/dL (12.0-15.0); Immature Granulocyte Absolute 0.07 K/mm3 (0.00-0.031); Immature Granulocyte Percent A 0.5 % (0-0.5); Lymphocytes Absolute Auto 2.66 K/mm3 (0.9-3.2); Lymphocytes Percent Auto 19.9 % (18.3-44.2); Mean Corpuscular HGB Conc 29.1 g/dl (32-36); Mean Corpuscular Hemoglobin 26.4 pg (26-34); Mean Corpuscular Volume 90.8 fl (80-100); Mean Platelet Volume 9.5 fl (7.4-10.4); Monocytes Absolute Auto 1.1 K/mm3 (0.1-0.6); Monocytes Percent Auto 8.4 % (2.6-8.5); Neutrophils Absolute Auto 9.2 K/mm3 (1.3-6.7); Neutrophils Percent Auto 69.1 % (45.5-73.1); Platelet Count Result 186 k/mm3 (150-375); Red Blood Count 4.01 M/mm3 (4.2-5.4); Red Cell Distribution Width 14.6 % (11.5-14.5); White Blood Count 13.4 K/mm3 (4.5-10.0)
[2024-12-28] MEDS: LEVALBUTEROL NEB 1.25 MG/3 ML 3.75 MG INHALATION (01:16)
[2024-12-28 01:19] LABS: Platelet Estimate Adequate (Adequate)
[2024-12-28 01:20] LABS: Anisocytosis 1+; Band Neutrophils Percent 0 % (0-6); Hypochromasia 1+; Schistocytes None Seen
[2024-12-28 01:22] LABS: Magnesium 1.7 mg/dL (1.6-2.3)
[2024-12-28 03:37] LABS: Alanine Aminotransferase 11 U/L (6-35); Albumin Level 3.8 g/dL (3.5-5.1); Alkaline Phosphatase 112 U/L (38-126); Anion Gap 6 mmol/L (4-12); Aspartate Amino Transferase 14 U/L (14-36); Bilirubin,Total 0.6 mg/dL (0.2-1.3); Blood Urea Nitrogen 19 mg/dL (7-17); Calcium 9.3 mg/dL (8.4-10.2); Carbon Dioxide 37 mmol/L (22-30); Chloride 89 mmol/L (98-107); Estimated CRCL calculation 48 ml/min; Estimated Glomerular Filt Rate 40; Glucose 160 mg/dL (65-110); Sodium 132 mmol/L (137-145)
[2024-12-28 03:46] LABS: NT Pro B Type Natriuretic Pept 563 pg/mL (19.9-100)
[2024-12-28] MEDS: methylPREDNISolone SOD SUCC 40 MG VIAL IV PUSH (03:50)
[2024-12-28] MEDS: FUROSEMIDE INJ 40 MG/4 ML VIAL IV PUSH (03:50)
--- NOTE | 2024-12-28 04:08 | ED_ITS ---
HPI - SOB/Dyspnea General Chief Complaint: Shortness of Breath/Dyspnea Stated Complaint: lethargic, low o2 sat Time Seen by Provider: 12/28/24 00:45 History of Present Illness HPI Narrative: Patient has COPD, on oxygen, for last few days to weeks has been having increasing shortness of breath, does not always use her albuterol at home. No new productive cough. Related Data Home Medications ?Medication ?Instructions ?Recorded ?Confirmed ?Last Taken ?Type escitalopram oxalate 20 mg tablet 20 mg PO DAILY 09/07/21 12/02/24 Unknown History montelukast 10 mg tablet 10 mg PO DAILY 09/07/21 12/02/24 Unknown History omeprazole 40 mg capsule,delayed 40 mg PO DAILY 09/07/21 12/02/24 Unknown History release trazodone 50 mg tablet 50 mg PO HS 09/07/21 12/02/24 Unknown History magnesium hydroxide 400 mg/5 mL 30 ml PO HS PRN Constipation 10/09/22 12/02/24 Unknown History oral suspension (Milk of Magnesia) melatonin 5 mg capsule 5 mg PO HS PRN Insomnia 10/09/22 12/02/24 Unknown History quetiapine 25 mg tablet 25 mg PO HS 10/09/22 12/02/24 Unknown History amitriptyline 10 mg tablet 10 mg PO HS 10/20/22 12/02/24 Unknown History ropinirole 4 mg tablet 4 mg PO HS 10/20/22 12/02/24 Unknown History topiramate 100 mg tablet 200 mg PO BID 10/20/22 12/02/24 Unknown History duloxetine 20 mg capsule,delayed 40 mg PO BID 12/02/24 12/05/24 Unknown History release Allergies Allergy/AdvReac Type Severity Reaction Status Date / Time No Known Drug Allergies Allergy Unknown Verified 12/28/24 00:51 Review of Systems 2 Review of Systems: All systems reviewed & are unremarkable except as noted in HPI and below PMFSH Past Medical History Medical History (Updated 12/28/24 @ 04:23 by Tahira Crowell MD) Atrial flutter with rapid ventricular response Acute exacerbation of chronic obstructive pulmonary disease C. difficile colitis Renal failure Requiring temporary dialysis and CRRT in 09/15. Staphylococcus epidermidis bacteremia (08/2022) Diastolic dysfunction Echo in August 2022 showed normal LV function with an EF of 60 to 65%, grade 1 diastolic dysfunction, moderate enlarged right ventricular chamber, normal right ventricular systolic function, moderate tricuspid valve regurgitation, and pulmonary hypertension with an estimated PASP of 59 mmHg. Normocytic anemia Bacteremia Shock Obesity (BMI 30-39.9) Sepsis Urinary tract infection Acute kidney injury Encephalopathy Chronic anticoagulation Gastroesophageal reflux disease Cerebrovascular accident Pneumonia Chronic obstructive pulmonary disease Acute on chronic respiratory failure with hypoxia and hypercapnia Jugular vein thrombosis 2019 novel coronavirus-infected pneumonia (NCIP) Congestive heart failure COPD (chronic obstructive pulmonary disease) Surgical History Surgical History History of cholecystectomy History of 3 sections History of left knee replacement Family History Family History Father Hypertension Acute myocardial infarction Sibling Hypertension Mother Family history of heart disease in male family member before age 55 Brother Acute myocardial infarction Father Acute myocardial infarction Other Cerebrovascular accident Family history of cardiovascular disease Social History Social History Social History: Surrogate medical decision maker: Sai Shin, brother. Code status: Full code. Smoking packs per day: 1 Smoking cigarettes per day: 20.0 Years smoked: 50 Smoking pack-years: 50.00 Smoking status: Former smoker Tobacco type: cigarettes Second hand tobacco smoke exposure: Yes Smoking end date: 08/23/22 Alcohol intake: never Drinks per week: 0 Substance use: never Do You Feel Safe in your Home?: Yes Lack of Transportation: No Lack of Food: Never True Current Housing: I Have Housing Concerned About Future Housing: No Difficulty Paying Gas/Electric Bills: No Difficulty Paying for Meds: No Currently Unemployed: No Education: High School Diploma/GED Difficulty w/ Childcare or Family Care: No Living arrangements: with family Additional living arrangements comments: Lives with family in [place]. 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 Spiritual care concerns: No Exam 2 Narrative: EXAMINATION OF ORGAN SYSTEMS/BODY AREAS: Constitutional: Vital signs per nursing GENERAL: Appears dyspneic HEAD: Normal with no signs of head trauma. EYES: EOMI, conjunctiva normal ENT: Hearing grossly intact LUNGS: Wheezing all lung paul HEART: [Regular rate and rhythm] ABD: [Soft], [nontender to palpation] EXT: Normal range of motion, no swelling or tenderness to either extremity SKIN: [No rashes or lesions.] NEURO: [Alert and oriented x 3. No gross focal sensory or strength deficits.] PSYCH: Normal affect Course Vital Signs Vital signs: Vital Signs Temperature 97.9 F 12/28/24 00:41 Pulse Rate 76 12/28/24 00:41 Respiratory Rate 22 H 12/28/24 00:41 Blood Pressure 136/117 H 12/28/24 00:41 Pulse Oximetry 93 12/28/24 00:41 Oxygen Delivery Nasal Cannula 12/28/24 00:41 Oxygen Flow Rate 4 12/28/24 00:41 Temperature 97.9 F 12/28/24 00:41 Pulse Rate 85 12/28/24 03:14 Respiratory Rate 23 H 12/28/24 03:14 Blood Pressure 138/92 H 12/28/24 02:32 Pulse Oximetry 96 12/28/24 03:14 Oxygen Delivery BiPAP 12/28/24 03:14 Oxygen Flow Rate 4 12/28/24 00:49 Procedures ABG Interpretation ABG Interpretation 1: ABG Results: VBG showing normal-low pH, CO2 retention at 72 MDM - SOB/Dyspnea MDM Narrative Medical decision making narrative: 54-year-old female history of COPD presenting with shortness of breath, on exam she is wheezing all lung paul, admits she has not always use her albuterol due to concern it may affect her heart, and I have started her on Xopenex, she does feel better afterwards with improved wheezing. VBG does show she is retaining CO2 so I have started her on BiPAP and I have talked to the patient would like to be admitted and I feel this is reasonable. Got steroids with EMS. I did also review prior admission records. Discussed with hospitalist for admission. Lab Data 12/28/24 01:04 12/28/24 01:04 Labs: Lab Results 12/28/24 Range/Units 01:04 WBC 13.4 H (4.5-10.0) K/mm3 RBC 4.01 L (4.2-5.4) M/mm3 Hgb 10.6 L (12.0-15.0) g/dL Hct 36.4 L (37.0-47.0) % MCV 90.8 (80-100) fl MCH 26.4 (26-34) pg MCHC 29.1 L (32-36) g/dl RDW 14.6 H (11.5-14.5) % Plt Count 186 (150-375) k/mm3 MPV 9.5 (7.4-10.4) fl Immature Gran % (Auto) 0.5 (0-0.5) % Neut % (Auto) 69.1 (45.5-73.1) % Lymph % (Auto) 19.9 (18.3-44.2) % Colbert % (Auto) 8.4 (2.6-8.5) % Eos % (Auto) 1.8 (0-4.4) % Baso % (Auto) 0.3 (0.2-1.2) % Lymph # (Auto) 2.66 (0.9-3.2) K/mm3 Colbert # (Auto) 1.1 H (0.1-0.6) K/mm3 Eos # (Auto) 0.2 (0-0.3) K/mm3 Baso # (Auto) 0.0 (0.0-0.1) K/mm3 Abs Immat Gran (auto) 0.07 H (0.00-0.031) K/mm3 Absolute Neuts (auto) 9.2 H (1.3-6.7) K/mm3 Absolute Nucleated RBC 0.000 (0.0-0.012) K/mm3 Band Neutrophils % 0 (0-6) % Nucleated RBC % 0.0 (0.0-0.2) % Platelet Estimate Adequate (Adequate) Hypochromasia 1+ Anisocytosis 1+ Schistocytes None seen Sodium 132 L (137-145) mmol/L Potassium 4.0 (3.4-5.0) mmol/L Chloride 89 L (98-107) mmol/L Carbon Dioxide 37 H (22-30) mmol/L Anion Gap 6 (4-12) mmol/L BUN 19 H (7-17) mg/dL Creatinine 1.34 H (0.7-1.0) mg/dL Estim Creat Clear Calc 48 ml/min Estimated GFR 40 L (59 - ) Glucose 160 H (65-110) mg/dL Calcium 9.3 (8.4-10.2) mg/dL Magnesium 1.7 (1.6-2.3) mg/dL Total Bilirubin 0.6 (0.2-1.3) mg/dL AST 14 (14-36) U/L ALT 11 (6-35) U/L Alkaline Phosphatase 112 (38-126) U/L NT-Pro-B Natriuret Pep 563 H (19.9-100) pg/mL Total Protein 7.0 (6.3-8.2) g/dL Albumin 3.8 (3.5-5.1) g/dL ABG Data ABG results: 12/28/24 01:00 VBG pH 7.329 VBG pCO2 72.1 H* VBG pO2 42.9 VBG HCO3 37.1 H O2 Delivery Device Not Reportable O2 Liters/Min Not Reportable FiO2 21 Discharge Plan Discharge Clinical Impression: Chronic obstructive pulmonary disease, Acute on chronic respiratory failure with hypoxia and hypercapnia Patient Disposition: Still a Patient Condition: Stable Patient Language: Swedish Prescriptions: No Action amitriptyline 10 mg tablet 10 mg PO HS topiramate 100 mg tablet 200 mg PO BID ropinirole 4 mg tablet 4 mg PO HS trazodone 50 mg tablet 50 mg PO HS omeprazole 40 mg capsule,delayed release(DR/EC) 40 mg PO DAILY montelukast 10 mg tablet 10 mg PO DAILY escitalopram oxalate 20 mg tablet 20 mg PO DAILY albuterol sulfate [Proventil HFA] 90 mcg/actuation Hfa Aerosol Inhaler 2 puff inhalation QID PRN (Reason: shortness of breath) Qty: 1 0RF potassium chloride 20 mEq Packet 20 meq PO DAILY Qty: 30 0RF ferrous sulfate 325 mg (65 mg iron) tablet 325 mg PO BID Qty: 60 0RF duloxetine 20 mg capsule,delayed release(DR/EC) 40 mg PO BID amiodarone [Pacerone] 200 mg Tablet 200 mg PO BID 6 Days Qty: 12 0RF metoprolol tartrate 50 mg Tablet 100 mg PO Q12HR 30 Days Qty: 120 0RF amiodarone 200 mg tablet 200 mg PO DAILY 30 Days Qty: 30 0RF Rx Instructions: Start 200mg daily from 12/15/24 Trelegy Ellipta 100-62.5-25 mcg blister with device 1 inh inhalation DAILY Qty: 28 1RF prednisone 10 mg tablet 10 mg PO DIRECTED Qty: 32 0RF Rx Instructions: see taper instructions 4 tabs daily x 3 days, then, 3 tabs daily x 3 days, 2 tabs daily x 3days, 1 tab daily x 3 days, then 5mg daily x 3 days, then stop. quetiapine 25 mg tablet 25 mg PO HS magnesium hydroxide [Milk of Magnesia] 400 mg/5 mL Suspension 30 ml PO HS PRN (Reason: Constipation) melatonin 5 mg Capsule 5 mg PO HS PRN (Reason: Insomnia) furosemide 20 mg Tablet 20 mg PO BID Qty: 60 0RF Follow-up/Referrals: Ben Golden MD [Primary Care Provider] -
--- NOTE | 2024-12-28 04:51 | P.HP_ITS ---
H&P: HPI History of Present Illness Date/Time: 12/28/24 04:51 Chief Complaint: Fatigued and hypoxic Narrative: This 64 year old female pt with PMH of A-fib off of Eliquis for two years secondary to abdominal rectal sheath hematoma, COPD, Diastolic dysfunction, anemia, GERD, CVA and HF came to the ER from home with complaints of feeling fatigued and dyspneic. She was recently admitted and was just discharged on 12/08/24 w/acute COPD exacerbation. She was determined to need 5L oxygen per nocturnal oximetry and completed abx and discharged to follow up with [facility] as outpt as well as Cardiology as outpt. Patient is a former smoker that quit 2021, she does not use alcohol or any illicit drugs. Patient was recently treated with steroids at the time of discharge. She denies any chest pain but is very fatigued and difficult to awaken. She was requiring BiPAP to maintain her saturations. Emergency room workup was performed with labs, imaging. Chest x-ray is pending but appears similar to most recent chest x-ray. CBC showing leukocytosis at 13.4 otherwise unremarkable, metabolic panel unremarkable. BNP is 563, magnesium is 1.7. Patient on BiPAP with settings 14/8, respiratory rate of 21 a nd 40% FiO2 with pH of 7.329, pCO2 of 72.1 PO2 of 42.9 bicarb of 37.1. Patient given a Xopenex treatment and received IV steroids. Review of Systems Review of Systems: All systems reviewed & are unremarkable except as noted in HPI and below [facility] Past Medical History Medical History (Updated 12/28/24 @ 05:11 by Kathi Rodriguez APN-Elvia) Hypoxic respiratory failure Atrial flutter with rapid ventricular response Acute exacerbation of chronic obstructive pulmonary disease C. difficile colitis Renal failure Requiring temporary dialysis and CRRT in 09/15. Staphylococcus epidermidis bacteremia (08/2022) Diastolic dysfunction Echo in August 2022 showed normal LV function with an EF of 60 to 65%, grade 1 diastolic dysfunction, moderate enlarged right ventricular chamber, normal right ventricular systolic function, moderate tricuspid valve regurgitation, and pulmonary hypertension with an estimated PASP of 59 mmHg. Normocytic anemia Bacteremia Shock Obesity (BMI 30-39.9) Sepsis Urinary tract infection Acute kidney injury Encephalopathy Chronic anticoagulation Gastroesophageal reflux disease Cerebrovascular accident Pneumonia Chronic obstructive pulmonary disease Acute on chronic respiratory failure with hypoxia and hypercapnia Jugular vein thrombosis 2019 novel coronavirus-infected pneumonia (NCIP) Congestive heart failure COPD (chronic obstructive pulmonary disease) Surgical History Surgical History History of cholecystectomy History of 3 sections History of left knee replacement Family History Family History Father Hypertension Acute myocardial infarction Sibling Hypertension Mother Family history of heart disease in male family member before age 55 Brother Acute myocardial infarction Father Acute myocardial infarction Other Cerebrovascular accident Family history of cardiovascular disease Social History Social History Social History: Surrogate medical decision maker: Sainestor Shin, brother. Code status: Full code. Smoking packs per day: 1 Smoking cigarettes per day: 20.0 Years smoked: 50 Smoking pack-years: 50.00 Smoking status: Former smoker Tobacco type: cigarettes Second hand tobacco smoke exposure: Yes Smoking end date: 08/23/22 Alcohol intake: never Drinks per week: 0 Substance use: never Do You Feel Safe in your Home?: Yes Lack of Transportation: No Lack of Food: Never True Current Housing: I Have Housing Concerned About Future Housing: No Difficulty Paying Gas/Electric Bills: No Difficulty Paying for Meds: No Currently Unemployed: No Education: High School Diploma/GED Difficulty w/ Childcare or Family Care: No Living arrangements: with family Additional living arrangements comments: Lives with family in [place]. 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 Spiritual care concerns: No Meds Home Medications and Allergies Home Medications ?Medication ?Instructions ?Recorded ?Confirmed ?Type escitalopram oxalate 20 mg tablet 20 mg PO DAILY 09/07/21 12/02/24 History montelukast 10 mg tablet 10 mg PO DAILY 09/07/21 12/02/24 History omeprazole 40 mg capsule,delayed 40 mg PO DAILY 09/07/21 12/02/24 History release trazodone 50 mg tablet 50 mg PO HS 09/07/21 12/02/24 History albuterol sulfate 90 mcg/actuation 2 puff inhalation QID PRN 09/16/21 12/02/24 Rx aerosol inhaler (Proventil HFA) shortness of breath #1 BA unit magnesium hydroxide 400 mg/5 mL 30 ml PO HS PRN Constipation 10/09/22 12/02/24 History oral suspension (Milk of Magnesia) melatonin 5 mg capsule 5 mg PO HS PRN Insomnia 10/09/22 12/02/24 History quetiapine 25 mg tablet 25 mg PO HS 10/09/22 12/02/24 History furosemide 20 mg tablet 20 mg PO BID #60 tabs 10/10/22 12/02/24 Rx amitriptyline 10 mg tablet 10 mg PO HS 10/20/22 12/02/24 History ropinirole 4 mg tablet 4 mg PO HS 10/20/22 12/02/24 History topiramate 100 mg tablet 200 mg PO BID 10/20/22 12/02/24 History potassium chloride 20 mEq oral 20 meq PO DAILY #30 ea 10/23/22 12/02/24 Rx packet ferrous sulfate 325 mg (65 mg 325 mg PO BID #60 tabs 10/25/22 12/02/24 Rx iron) tablet duloxetine 20 mg capsule,delayed 40 mg PO BID 12/02/24 12/05/24 History release amiodarone 200 mg tablet 200 mg PO DAILY 30 days #30 tabs 12/08/24 Rx amiodarone 200 mg tablet (Pacerone) 200 mg PO BID 6 days #12 tabs 12/08/24 Rx fluticasone fur. 100 mcg-umeclid 1 inh inhalation DAILY #28 ea 12/08/24 Rx 62.5 mcg-vilant 25 mcg inhalat.powder (Trelegy Ellipta) metoprolol tartrate 50 mg tablet 100 mg (2 x 50 mg) PO Q12HR 30 12/08/24 Rx days #120 tabs prednisone 10 mg tablet 10 mg PO DIRECTED #32 tabs 12/08/24 Rx Allergies Allergy/AdvReac Type Severity Reaction Status Date / Time No Known Drug Allergies Allergy Unknown Verified 12/28/24 00:51 Vital Signs Vital Signs - 24 hr 12/28/24 00:41 12/28/24 00:49 12/28/24 01:16 Temperature 97.9 F Pulse Rate 76 71 Respiratory Rate 22 H 16 Blood Pressure 136/117 H Pulse Oximetry 93 93 Oxygen Delivery Nasal Cannula Nasal Cannula Oxygen Flow Rate 4 4 12/28/24 01:16 12/28/24 01:46 12/28/24 02:01 Temperature Pulse Rate 71 72 71 Respiratory Rate 16 17 18 Blood Pressure 132/86 129/54 L 113/94 H Pulse Oximetry 94 100 100 Oxygen Delivery Oxygen Flow Rate 12/28/24 02:32 12/28/24 03:14 12/28/24 04:04 Temperature Pulse Rate 70 85 71 Respiratory Rate 18 23 H 21 H Blood Pressure 138/92 H 99/49 L Pulse Oximetry 96 Oxygen Delivery BiPAP Oxygen Flow Rate 12/28/24 04:16 12/28/24 04:31 Temperature Pulse Rate 69 66 Respiratory Rate 19 17 Blood Pressure 119/49 L 122/49 L Pulse Oximetry 97 Oxygen Delivery Oxygen Flow Rate Exam Const: Other: Obese, somnolent HENMT: Face/Nose/Sinus: Normal nares present Mouth: Yes dry mucous membranes Eyes: General: appearance normal, both eyes and all related structures Sclera: sclerae normal Pupils: Equal, round and reactive pupils present EOM: EOMs intact bilaterally Neck: Neck: supple and no JVD Lymphatic: lymphadenopathy not noted Chest: Other: not tender Resp: Effort & Inspection: abnormal respiratory effort (Increased effort) Auscultation: diminished lung sounds bilateral (Bases) Cardio: Rate: regular rate Rhythm: regular rhythm Heart sounds: no gallops, no murmurs and no rubs GI: Inspection: non-distended GI Palp: Yes Soft to palpation and No Tenderness to palpation present (GI) Auscultation: normal bowel sounds Skin: General skin exam: No normal color (pale) Lesions: no lesions noted Rashes: no rashes noted Wounds: no wounds Neuro: Speech: normal speech Motor exam (neuro): Abnormal motor strength present (Generalized weakness) Extrem: General: edema Other: BLE edema. Not pitting Psych: Mental Status: mental status grossly normal Affect: normal affect H&P: Results Labs Labs: Short CBC 12/28/24 Range/Units 01:04 WBC 13.4 H (4.5-10.0) K/mm3 Hgb 10.6 L (12.0-15.0) g/dL Hct 36.4 L (37.0-47.0) % Plt Count 186 (150-375) k/mm3 [facility] 12/28/24 01:04 Sodium 132 L Potassium 4.0 Chloride 89 L Carbon Dioxide 37 H BUN 19 H Creatinine 1.34 H Glucose 160 H Calcium 9.3 Liver Function 12/28/24 Range/Units 01:04 Total Bilirubin 0.6 (0.2-1.3) mg/dL AST 14 (14-36) U/L ALT 11 (6-35) U/L Alkaline Phosphatase 112 (38-126) U/L Albumin 3.8 (3.5-5.1) g/dL Assessment and Plan Assessment and plan (1) Acute exacerbation of chronic obstructive pulmonary disease: Code(s): J44.1 - Chronic obstructive pulmonary disease with (acute) exacerbation Status: Acute Assessment and Plan: * Consult Pulmonology * IV Steroids * Levaquin 750 mg daily * Continue BiPap to blow off CO2 * Trend labs and VS * Awaiting results of CXR * Nebs * urine for strep pneumo, mycoplasma and legionella ordered (2) Iron deficiency anemia: Code(s): D50.9 - Iron deficiency anemia, unspecified Status: Chronic Assessment and Plan: * Continue home meds once they are confirmed. * Monitor and trend CBC. (3) Atrial fibrillation: Code(s): I48.91 - Unspecified atrial fibrillation Status: Chronic Assessment and Plan: * Telemetry * Continue home meds once confirmed. * Strip showing NSR. (4) Acute on chronic congestive heart failure: Code(s): I50.9 - Heart failure, unspecified Status: Chronic Assessment and Plan: * Chronic heart failure * Last ECHO showing normal LVSF w/EF of 60-65% on 12/02/24. * Daily weight * Accurate Intake and output Quality VTE Prophylaxis VTE prophylaxis: mechanical ordered
[2024-12-28] MEDS: levoFLOXacin 750 MG TABLET PO (06:11)
[2024-12-28] MEDS: IPRATROPIUM 0.5 MG/ALBUTEROL SULFATE 2.5 MG AMPUL.NEB 3 ML INHALATION (08:23)
[2024-12-28] MEDS: methylPREDNISolone SOD SUCC 125 MG VIAL 60 MG IV PUSH (09:29)
--- NOTE | 2024-12-28 09:55 | PM.CNPUL ---
Assessment and Plan Assessment and plan (1) Chronic obstructive pulmonary disease: Code(s): J44.9 - Chronic obstructive pulmonary disease, unspecified Status: Chronic Assessment and Plan: Regarding her COPD, 50 pack year tobacco use, quit 08/23/2022, alpha 1 anti trypsin genotype MZ, alpha 1 anti trypsin level 134, normal. The patient has been on oxygen for the last 5 years. I have no PFTs. She is using 5 L at rest with home saturations 92-96%. First CT scan in our system is from 08/27/2022 shows mild apical predominant centrilobular emphysema. Repeat CT angiogram of the chest on 12/02/2024 demonstrates mild apical predominant centrilobular emphysema. Patient is maintained on trelegy inhaler but she does not use a because of the taste. Patient takes Trelegy 100, montelukast 10 and albuterol p.r.n.. Patient tells me she wheezes every day when she takes rescue albuterol at home it relieves her wheezing for 1-2 minutes. 12/01/2024: White blood cell count 14.8, eosinophils 0.6%= 89 per micro L. patient presents with shortness of breath, no change in phlegm production or color, worsening shortness of breath and hypoxemic respiratory failure. Patient treated with bronchodilators, steroids and BiPAP. 12/28/24: The patient tells me that the day after she left the hospital she started getting worse with fatigue and then worsening oxygenation about 5 days ago. On her prescribed 2 L her saturations were in the 80s and then as low as 79%. She denied fever, chills, rigors. She had a dry cough with no phlegm and no hemoptysis. Currently says she is improved and breathing 50% back to her normal but she feels still feels tired and short of breath. The patient told me she had improved and could come off of the mask and she was placed on 3 L nasal cannula with saturations 91% Plan: Will continue treatment for possible COPD exacerbation. Patient has wheezing but has wheezing every day. I will decrease her Solu-Medrol to 20 mg IV q.6 hours. Continue DuoNebs q.6 hours. Patient is on levofloxacin for possible pneumonia and bronchitis. I will obtain a D-dimer and if positive will get a CT angiogram of the chest. If negative will get a CT scan of the chest looking for focal infiltrates consistent with a pneumonia. Goal saturation 90-94%, Adjust oxygen accordingly. Will add guaifenesin 1200 mg p.o. b.i.d. (2) Chronic hypercapnic respiratory failure: Code(s): J96.12 - Chronic respiratory failure with hypercapnia Status: Acute Assessment and Plan: Last admission patient presented with hypercarbic respiratory failure but after she improved with treatment for COPD exacerbation and fluid overload her blood gas was 7.39/48/97 and she did not qualify for BiPAP or noninvasive ventilation. Current venous blood gas Venous blood gas listed as room air 7.33/72/ 43. The patient told me she had improved and could come off of the mask and she was placed on 3 L nasal cannula with saturations 91% 12/28/24: Currently the patient is on BiPAP rate of 18, pressures 14/8 with 40% FiO2. Patient told me these settings were uncomfortable for her and I changed them to noninvasive ventilation with the AVAPS mode rate of 14, tidal volume 500, EPAP 5, minimal inspiratory pressure 6, maximal inspiratory pressure 25, inspiratory time 1.0, rise of 1 which is the fastest and 40% FiO2. She said this was more comfortable. The patient told me she had improved and could come off of the mask and she was placed on 3 L nasal cannula with saturations 91%. Plan: noninvasive ventilation with the AVAPS mode p.r.n. during the day. I recommend she wear this tonight. After she has improved will repeat ABG during the day. History of Present Illness History of Present Illness Consult date: 12/28/24 Chief complaint: COPD exac Narrative: 12/28/2024: This is a new pulmonary consult for COPD exacerbation. 64-year-old with a history of AFib off anticoagulation for 2 years secondary to abdominal rectal sheath hematoma, diastolic dysfunction, GERD, HTN, restless legs syndrome, anxiety and COPD with chronic hypoxemic respiratory failure on 5 L at Night and 2 L with rest and activity per home O2 assessment on 12/08/2024. I previously saw the patient as an inpatient on 12/02/2024 when she was admitted for COPD exacerbation. Regarding her COPD, 50 pack year tobacco use, quit 08/23/2022, alpha 1 anti trypsin genotype MZ, alpha 1 anti trypsin level 134, normal. The patient has been on oxygen for the last 5 years. I have no PFTs. She is using 5 L at rest with home saturations 92-96%. First CT scan in our system is from 08/27/2022 shows mild apical predominant centrilobular emphysema. Repeat CT angiogram of the chest on 12/02/2024 demonstrates mild apical predominant centrilobular emphysema. Patient is maintained on trelegy inhaler but she does not use a because of the taste. Patient takes Trelegy 100, montelukast 10 and albuterol p.r.n.. Patient tells me she wheezes every day when she takes rescue albuterol at home it relieves her wheezing for 1-2 minutes. 12/01/2024: White blood cell count 14.8, eosinophils 0.6%= 89 per micro L. 12/02/2024 through 12/08/2024:? Presented to the emergency room with COPD exacerbation, hypercarbic and hypoxemic respiratory failure, AFib with RVR, and fluid overload.? Treated with BiPAP, steroids, bronchodilators, antibiotics, and diuretics.? CTA of the chest with no PE, mild apical predominant centrilobular emphysema, ?upper and lower extremity Dopplers negative for DVT.? Echocardiogram with LVEF 60-65%, RV was dilated with normal systolic function.? Left atrium normal, right atrium normal, RVSP 27. ?After she improved clinically on 12/06/2024: ABG on 5 L nasal cannula pH 7.39/48/97. ?Patient improved and was discharged on 12/08/24 on trelegy 100, rescue albuterol, montelukast 10, guaifenesin 600 b.i.d. p.r.n. congestion, no Lasix, amiodarone 200 b.i.d., metoprolol 100 q.12, she had completed 5 days of steroids in house and I did not recommend a discharge taper, however, the hospitalist discharge her on a 15 day prednisone taper. Required 2 L oxygen at rest and with activity per home O2 assessment and per overnight oximetry required 5 L NC when she naps or sleeps. ?12/08/24: creatinine 1.68. Her weight is 120.8 kg.? 12/28/2024: Presented to the emergency room with shortness of breath. blood pressure 136/117, heart rate 76, nasal cannula saturation 93%. Patient had wheezing throughout all lung paul. White blood cell count 13.4 with eosinophils 1.8%=241/ul. creatinine 1.34, serum bicarbonate 37, BNP 563. Venous blood gas listed as room air 7.33/72/ 43. patient placed on BiPAP, treated with bronchodilators, received IV steroids per EMS, lasix 40 IV. 12/28/24: Currently the patient is on BiPAP rate of 18, pressures 14/8 with 40% FiO2. Patient told me these settings were uncomfortable for her and I changed them to noninvasive ventilation with the AVAPS mode rate of 14, tidal volume 500, EPAP 5, minimal inspiratory pressure 6, maximal inspiratory pressure 25, inspiratory time 1.0, rise of 1 which is the fastest and 40% FiO2. She said this was more comfortable. The patient told me she had improved and could come off of the mask and she was placed on 3 L nasal cannula with saturations 91% The patient tells me that the day after she left the hospital she started getting worse with fatigue and then worsening oxygenation about 5 days ago. On her prescribed 2 L her saturations were in the 80s and then as low as 79%. She denied fever, chills, rigors. She had a dry cough with no phlegm and no hemoptysis. Currently says she is improved and breathing 50% back to her normal but she feels still feels tired and short of breath. DATA: 12/08/2024: Home O2 assessment: Rest room air saturation 87%. Rest nasal cannula 1 L saturation 88%. Rest nasal cannula saturation 93%. Exercise nasal cannula 2 L saturation 94%. Patient requires 2 L with rest and with activity. 12/07/24: Patient had an overnight oximetry on 5 L nasal cannula with recording duration of 6 hours and 58 minutes. Average saturation 98%. Low saturation 95%. Time with saturation less than or equal to 88% was 0 minutes. Oxygen desaturation index 0. 12/06/2024: ABG on 5 L nasal cannula pH 7.39/48/97. ? 12/02/2024: Alpha 1 anti trypsin genotype ruthie LEWIS. 12/02/2024: Alpha 1 anti trypsin level 135, normal 83-199. 12/02/24: CTA chest PE protocol History: 64 years Female with . R/O PE . Findings: PULMONARY ARTERIES: No pulmonary embolus. VISUALIZED THORACIC INLET: Left thyroid nodule is noted. Ultrasound evaluation advised. MEDIASTINUM: Aorta/coronary arteries: Mild atheromatous disease. Heart/other: The heart is not enlarged. Lymph nodes: No mediastinal or hilar adenopathy. Precarinal lymph node measuring 1.6 cm noted. LUNGS: Atelectasis versus pneumonia seen in the right lung base inferiorly. Minimal atelectasis versus pneumonia in the left lung base is also noted. No pulmonary nodules or masses. No effusions. No pneumothorax. VISUALIZED UPPER abdomen: the visualized upper abdomen is normal. MUSCULOSKELETAL: Soft tissues: The superficial soft tissues are normal. Bones: Age appropriate degenerative changes of the spine. IMPRESSION: 1. No pulmonary embolism. 2. Bilateral basal atelectasis versus pneumonia. Clinical correlation advised. 12/02/2024: Echo Summary 1. The left ventricle is normal in size and systolic function. The left ventricular ejection fraction visually estimated to be 60-60%. 2. The right ventricle is dilated with normal systolic function. 3. There are no significant valvular abnormalities. 4. Technically difficult study. Left Ventricle The left ventricle is normal in size and systolic function. The left ventricular ejection fraction visually estimated to be 60-60%. Diastolic dysfunction is present. Right Ventricle The right ventricle is dilated with normal systolic function. Left Atria The left atrium is normal size. Right Atria The right atrium is normal size. RVSP 27 12/17/2023: CT Scan of the Chest without Contrast: Clinical Indication: Lung cancer screening, nicotine dependence COMPARISON: 04/06/2023 Findings: Stable enlarged left thyroid lobe. There is no evidence of any significant mediastinal, hilar or axillary lymphadenopathy. Atherosclerotic calcifications of the aorta are present. There is no evidence of pleural or pericardial effusion. There is irregular airspace opacity in the posterior right lower lobe, improved from prior exam, likely representing postinflammatory change, as there is a previous more extensive area of consolidation in this location. Mild emphysema. Images through the upper abdomen reveal no abnormalities. Impression: Lung RADS 2: Benign appearance. 12 month follow-up screening CT advised. 09/10/2022: Echo Summary 1. Technically difficult study with limited views. Regional wall motion assessment limited due to poor endomyocardial border definition despite definity contrast enhancement. 2. Left ventricular chamber dimension is normal. 3. Left ventricular systolic function is normal, estimated at 65-70%. 4. There is mildly increased left ventricular wall thickness. 5. Right ventricular chamber dimension is normal. 6. Right ventricular systolic function is moderately reduced. TAPSE 1.3. 7. There is trace tricuspid valve regurgitation. 8. Mild pulmonary hypertension, estimated pulmonary arterial systolic pressure is 37 mmHg. 9. Normal inferior vena cava with <50% collapse upon inspiration consistent with elevated right atrial pressure, 10 mmHg. 08/28/2022: Summary 1. Left ventricular chamber dimension is normal. 2. Left ventricular systolic function is normal, estimated at 60-65%. 3. The left ventricular diastolic function is grade I diastolic dysfunction. 4. Right ventricular chamber dimension is moderately enlarged. 5. Right ventricular systolic function is normal. 6. There is moderate tricuspid valve regurgitation, which may be underestimated due to the eccentricity of the jet. 7. Dilated inferior vena cava with no collapse upon inspiration consistent with elevated right atrial pressure, 15 mmHg. 8. Pulmonary hypertension with an estimated PASP of 59mmHg. Right Ventricle Right ventricular chamber dimension is moderately enlarged. Right ventricular systolic function is normal. Right Atria Right atrial chamber dimension is normal. Atrial Septum Intact interatrial septum visualized by color flow imaging. 08/27/2022: EXAMINATION: CT chest high resolution wo co DATE: 08/27/2022 16:07 INDICATION: respiratory failure TECHNIQUE: Computed tomography (CT) of the chest was performed without intravenous contrast. Automated exposure control and iterative reconstruction technique were employed. The dose-length product was 818.52 mGy-cm. COMPARISON: X-ray chest 08/27/2022 and CTA chest 07/21/2018. FINDINGS: CHEST: Endotracheal tube terminating 2.5 cm above the maria esther. Thoracic aorta: No significant dilation. Moderate arch calcification. Lung parenchyma and airways: Diffuse tree-in-bud opacities most evident in the right lung. Scattered centrilobular nodular opacities measuring up to 11 mm in the right upper lobe. Mild interlobular septal thickening. Bibasilar dependent opacities likely representing atelectasis. Mild emphysematous change. Thoracic inlet, axillae and chest wall: No thyroid or soft tissue mass. No axillary lymphadenopathy. Mediastinum: Mediastinal lymphadenopathy. Dilated central pulmonary arteries as can be seen with pulmonary arterial hypertension. Heart and pericardium: Normal heart size. Aortic valve calcification. No pericardial effusion. Coronary artery calcifications: Mild. Pleura: Trace bilateral pleural fluid. Upper abdomen: No significant finding. Thoracic bones: No acute osseous finding in the chest. IMPRESSION: 1. Tree-in-bud opacities as can be seen with atypical infection (including but not limited to: MAC, TB, fungal), ABPA, airways disease, and less likely aspiration. 2. Nodular opacity in right upper lobe should be followed after the appropriate therapy and cessation of symptoms to ensure resolution. 3. Mediastinal lymphadenopathy. 4. Trace bilateral pleural effusions. 5. Mild interstitial edema. Review of Systems Constitutional: Constitutional: Reports no additional constitutional complaints Eyes: Eyes: Reports no additional eye complaints ENT: Reports system reviewed and no additional complaints, except as documented Cardiovascular: Cardiovascular: Reports no additional cardiovascular complaints Respiratory: Respiratory: Reports no additional respiratory complaints Gastrointestinal: Gastrointestinal: Reports no additional gastrointestinal complaints Musculoskeletal: Musculoskeletal: Reports no additional musculoskeletal complaints Neurologic: Reports system reviewed and no additional complaints, except as documented Psychiatric: Psychiatric: Reports no additional psychiatric complaints Endocrine: Endocrine: Reports no additional endocrine complaints Hematologic/Lymphatic: Hematologic/Lymphatic: Reports no additional hematologic/lymphatic complaints Allergic/Immunologic: Allergic/Immunologic: Reports no additional allergic/immunologic complaints [facility] Past Medical History Medical History (Updated 12/28/24 @ 05:11 by IBLL Guzman) Hypoxic respiratory failure Atrial flutter with rapid ventricular response Acute exacerbation of chronic obstructive pulmonary disease C. difficile colitis Renal failure Requiring temporary dialysis and CRRT in 09/15. Staphylococcus epidermidis bacteremia (08/2022) Diastolic dysfunction Echo in August 2022 showed normal LV function with an EF of 60 to 65%, grade 1 diastolic dysfunction, moderate enlarged right ventricular chamber, normal right ventricular systolic function, moderate tricuspid valve regurgitation, and pulmonary hypertension with an estimated PASP of 59 mmHg. Normocytic anemia Bacteremia Shock Obesity (BMI 30-39.9) Sepsis Urinary tract infection Acute kidney injury Encephalopathy Chronic anticoagulation Gastroesophageal reflux disease Cerebrovascular accident Pneumonia Chronic obstructive pulmonary disease Acute on chronic respiratory failure with hypoxia and hypercapnia Jugular vein thrombosis 2019 novel coronavirus-infected pneumonia (NCIP) Congestive heart failure COPD (chronic obstructive pulmonary disease) Surgical History Surgical History History of cholecystectomy History of 3 sections History of left knee replacement Family History Family History Father Hypertension Acute myocardial infarction Sibling Hypertension Mother Family history of heart disease in male family member before age 55 Brother Acute myocardial infarction Father Acute myocardial infarction Other Cerebrovascular accident Family history of cardiovascular disease Social History Social History Social History: Surrogate medical decision maker: Sainestor Shin, brother. Code status: Full code. Smoking packs per day: 1 Smoking cigarettes per day: 20.0 Years smoked: 50 Smoking pack-years: 50.00 Smoking status: Former smoker Tobacco type: cigarettes Second hand tobacco smoke exposure: No Smoking end date: 08/23/22 Alcohol intake: never Drinks per week: 0 Substance use: never Substance use type: does not use Do You Feel Safe in your Home?: Yes Lack of Transportation: No Lack of Food: Never True Current Housing: I Have Housing Concerned About Future Housing: No Difficulty Paying Gas/Electric Bills: No Difficulty Paying for Meds: No Currently Unemployed: No Education: High School Diploma/GED Difficulty w/ Childcare or Family Care: No Living arrangements: with family Additional living arrangements comments: Lives with family in [place]. 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 Spiritual care concerns: No Meds Home Medications and Allergies Home Medications ?Medication ?Instructions ?Recorded ?Confirmed ?Type escitalopram oxalate 20 mg tablet 20 mg PO DAILY 09/07/21 12/28/24 History montelukast 10 mg tablet 10 mg PO DAILY 09/07/21 12/28/24 History omeprazole 40 mg capsule,delayed 40 mg PO DAILY 09/07/21 12/28/24 History release trazodone 50 mg tablet 50 mg PO HS 09/07/21 12/28/24 History albuterol sulfate 90 mcg/actuation 2 puff inhalation QID PRN 09/16/21 12/28/24 Rx aerosol inhaler (Proventil HFA) shortness of breath #1 BA unit magnesium hydroxide 400 mg/5 mL 30 ml PO HS PRN Constipation 10/09/22 12/28/24 History oral suspension (Milk of Magnesia) melatonin 5 mg capsule 5 mg PO HS PRN Insomnia 10/09/22 12/28/24 History quetiapine 25 mg tablet 25 mg PO HS 10/09/22 12/28/24 History furosemide 20 mg tablet 20 mg PO BID #60 tabs 10/10/22 12/28/24 Rx amitriptyline 10 mg tablet 10 mg PO HS 10/20/22 12/28/24 History ropinirole 4 mg tablet 4 mg PO HS 10/20/22 12/28/24 History topiramate 100 mg tablet 200 mg PO BID 10/20/22 12/28/24 History potassium chloride 20 mEq oral 20 meq PO DAILY #30 ea 10/23/22 12/28/24 Rx packet ferrous sulfate 325 mg (65 mg 325 mg PO BID #60 tabs 10/25/22 12/28/24 Rx iron) tablet duloxetine 20 mg capsule,delayed 40 mg PO BID 12/02/24 12/28/24 History release amiodarone 200 mg tablet 200 mg PO DAILY 30 days #30 tabs 12/08/24 12/28/24 Rx fluticasone fur. 100 mcg-umeclid 1 inh inhalation DAILY #28 ea 12/08/24 12/28/24 Rx 62.5 mcg-vilant 25 mcg inhalat.powder (Trelegy Ellipta) metoprolol tartrate 50 mg tablet 100 mg (2 x 50 mg) PO Q12HR 30 12/08/24 12/28/24 Rx days #120 tabs prednisone 10 mg tablet 10 mg PO DIRECTED #32 tabs 12/08/24 12/28/24 Rx Allergies Allergy/AdvReac Type Severity Reaction Status Date / Time No Known Drug Allergies Allergy Unknown Verified 12/28/24 00:51 Vital Signs Vital Signs - 24 hr 12/28/24 00:41 12/28/24 00:49 12/28/24 01:16 Temperature 36.6 C Pulse Rate 76 71 Respiratory Rate 22 H 16 Blood Pressure 136/117 H Pulse Oximetry 93 93 Oxygen Delivery Nasal Cannula Nasal Cannula Oxygen Flow Rate 4 4 12/28/24 01:16 12/28/24 01:46 12/28/24 02:01 Temperature Pulse Rate 71 72 71 Respiratory Rate 16 17 18 Blood Pressure 132/86 129/54 L 113/94 H Pulse Oximetry 94 100 100 Oxygen Delivery Oxygen Flow Rate 12/28/24 02:32 12/28/24 03:14 12/28/24 04:04 Temperature Pulse Rate 70 85 71 Respiratory Rate 18 23 H 21 H Blood Pressure 138/92 H 99/49 L Pulse Oximetry 96 Oxygen Delivery BiPAP Oxygen Flow Rate 12/28/24 04:16 12/28/24 04:31 12/28/24 04:46 Temperature Pulse Rate 69 66 68 Respiratory Rate 19 17 18 Blood Pressure 119/49 L 122/49 L 131/70 Pulse Oximetry 97 96 Oxygen Delivery Oxygen Flow Rate 12/28/24 05:01 12/28/24 05:16 12/28/24 05:31 Temperature Pulse Rate 67 66 67 Respiratory Rate 18 16 22 H Blood Pressure 129/52 L 115/53 L 111/53 L Pulse Oximetry 98 96 Oxygen Delivery Oxygen Flow Rate 12/28/24 05:53 12/28/24 06:00 12/28/24 06:25 Temperature 36.4 C Pulse Rate 70 68 68 Respiratory Rate 24 H 24 H Blood Pressure 143/96 H Pulse Oximetry 95 95 Oxygen Delivery BiPAP Oxygen Flow Rate 12/28/24 06:41 12/28/24 08:18 12/28/24 08:23 Temperature Pulse Rate 65 105 H Respiratory Rate 19 18 20 Blood Pressure Pulse Oximetry 97 Oxygen Delivery BiPAP BiPAP Oxygen Flow Rate 12/28/24 08:40 Temperature 36.3 C L Pulse Rate 69 Respiratory Rate 19 Blood Pressure 114/47 L Pulse Oximetry 97 Oxygen Delivery Oxygen Flow Rate Exam Const: General: cooperative, healthy appearing and comfortable Orientation/consciousness: oriented to person, oriented to place and oriented to time HENMT: Head: normal to inspection Ears: hearing grossly normal bilaterally Eyes: General: appearance normal, both eyes and all related structures Neck: Neck: normal visual inspection Chest: Chest palpation & inspection: normal inspection of the chest Resp: Effort & Inspection: normal respiratory effort and able to speak in complete sentences Auscultation: no crackles, no rales, no rhonchi, wheezes and diminished lung sounds Other: Expiratory wheezes Cardio: Jugular venous distension: no JVD GI: Inspection: normal to inspection Skin: General skin exam: normal color Neuro: General: oriented to person, oriented to place and oriented to time Extrem: General: edema Other: Psych: Appearance: grossly normal Results Laboratory Findings 12/28/24 01:04 12/28/24 01:04 Abnormal lab findings: Abnormal Labs 12/28/24 12/28/24 01:00 01:04 WBC 13.4 H RBC 4.01 L Hgb 10.6 L Hct 36.4 L MCHC 29.1 L RDW 14.6 H [place] # (Auto) 1.1 H Abs Immat Gran (auto) 0.07 H Absolute Neuts (auto) 9.2 H VBG pCO2 72.1 H* VBG HCO3 37.1 H Sodium 132 L Chloride 89 L Carbon Dioxide 37 H BUN 19 H Creatinine 1.34 H Estimated GFR 40 L Glucose 160 H NT-Pro-B Natriuret Pep 563 H Diagnostic Findings Additional studies: ITS Impressions Chest X-Ray 12/28/24 05:22 Impression: Probable chronic interstitial disease with basilar predominance.
--- OUTSIDE RECORDS SUMMARY | 2024-12-28 09:59 | XMS_ITS | Clinical Summary ---
Author Organization [facility] Address [address] [address] Phone Care Team Providers Care Advertising Account Manager Name Role Phone Unavailable Primary Care Provider [...]
--- OUTSIDE RECORDS SUMMARY | 2024-12-28 09:59 | XMS_ITS | Clinical Summary ---
Author Organization [facility] Address [address] [place] [address] Care Team Providers Care Cancer Program Coordinator Name Role Phone Heri Juarez MD Unavailable Lucho Golden MD Primary Care Provider Allergies No known active allergies Medications furosemide [...] of other vein of right upper extremity ([facility]),PAD (peripheral artery disease) 20-30 MMHg Compression [...] (DVT) of right upper extremity, unspecified vein ([facility]) 11/27/2020 Acute deep vein thrombosis ( DVT) of other vein of right upper extremity ([facility]) 10/12/2018 PAD (peripheral artery disease) 10/12/2018 Thrombus 09/15/2018 Jugular vein occlusion ([facility]) 019 Family History Relation Status Comments Father Maternal Grandfather Maternal Grandmother Mother Paternal Grandfather Paternal Grandmother Sister 1 Alive Sister 2 Alive Social History Tobacco Use Types Packs/Day Years Used Date Smoking Tobacco: Former Cigarettes Q uit: 2015 Smokeless Tobacco: Never Alcohol Use Standard Drinks/Week Comments No 0 (1 standard drink = 0.6 oz pur e alcohol) [facility] Utilities Answer Date Recorded In the [...] place to sleep or slept in a skilled nursing (including now)? No 07/13/2023 Comments No Sex and Gender Information Value Date Recorded Sex Assigned at Not on file Legal Sex Female 3:29 PM BMET Gender Identity Not on file Sexual Orientation Not on file Occupation Industry Job Start Date Job End Date Not on file Not on file Not on file Not on file Last Filed Vital Signs Vital Sign Reading Time Taken Comments Blood Pressure 154/46 07/20/2023 7:51 AM BMET Pulse 94 07/20/2023 7:59 AM BMET Temperature 36.8 C (98.2 F) 07/20/2023 7:51 AM BMET Respiratory Rate 18 07/19/2023 4:11 AM BMET Oxygen Saturation 95% 07/20/2023 7:51 AM BMET Inhaled Oxygen Concentration - - Weight 115.8 kg (255 lb 4.7 oz) 07/15/2023 2:53 AM BMET Height 165.1 cm (5' 5 ) 07/13/2023 9:51 PM BMET Body Mass Index 42.48 07/13/2023 9:51 PM BMET Plan of Treatment Health Maintenance Due Date [...] planning Lifestyle No Gricelda Arreaga, RN Insurance [facility] Advance Directives * Full Code (Latest Code Status on File) Date Activated Date Inactivated Comments 07/13/2023 7:44 PM 07/20/2023 3:30 PM * Full Code Date Activated Date Inactivated Comments 09/14/2018 7:08 PM 09/19/2018 4:55 PM Care Teams Cancer Program Coordinator Relationship Specialty Start Date End Date Lucho Golden MD [address] [place] [address] PCP - General INTERNAL MEDICINE 07/14/23 Heri Juarez MD Vascular/Photo Mask Cleaner INTERNAL MEDICINE 09/21/18
--- OUTSIDE RECORDS SUMMARY | 2024-12-28 09:59 | XMS_ITS | Clinical Summary ---
Author Organization [facility] Address [address] [place] [address] Phone Care Team Providers Care Liquefaction And Regasification Helper Name Role Phone Unavailable Primary Care Provider [...] on file Legal Sex Female 10:10 AM PICK UP OPERATOR Gender Identity Not on file Sexual Orientation Not on file Last Filed Vital Signs Vital Sign Reading Time Taken Comments Blood Pressure 116/68 09/24/2022 11:01 AM PICK UP OPERATOR Pulse 96 09/24/2022 11:01 AM PICK UP OPERATOR Temperature 36.3 C (97.4 F) 09/24/2022 11:01 AM PICK UP OPERATOR Respiratory Rate 16 09/24/2022 11:0 1 AM PICK UP OPERATOR Oxygen Saturation 92% 09/24/2022 4:5 5 PM PICK UP OPERATOR Inhaled Oxygen Concentration - - Weight 99.8 kg (220 lb) 09/22/2022 6:00 AM PICK UP OPERATOR bedscale not zeroed Height 167.6 cm (5' 6 ) 09/17/2022 10:2 8 AM PICK UP OPERATOR Body Mass Index 35.51 09/17/2022 10:28 AM PICK UP OPERATOR Plan of Treatment Health Maintenance Due [...] INFLUENZA VACCINE (#1) 2024 Insurance MEDICAID [facility] Advance Directives For more information, please contact: [phone] * Full Code (Latest Code Status on File) Date Activated Date Inactivated Comments 09/11/2022 7:58 PM 09/24/2022 7:43 PM
[2024-12-28 10:39] LABS: D Dimer 0.43 ug/mL (<0.48)
[2024-12-28 11:36] LABS: Influenza A QL RT-PCR Negative (Negative); Influenza B QL RT-PCR Negative (Negative); RSV RNA, RT-PCR Negative (Negative); SARS-CoV-2 RNA PCR Negative (Negative)
--- NOTE | 2024-12-28 13:10 | P.PNIM_ITS ---
Progress Note: A&P Assessment and Plan (1) Acute exacerbation of chronic obstructive pulmonary disease: Code(s): J44.1 - Chronic obstructive pulmonary disease with (acute) exacerbation Status: Acute Assessment and Plan: * Consult Pulmonology * IV Steroids 20 mg q 6h * Levaquin 750 mg daily * Continue BiPap to blow off CO2 * Trend labs and VS * Awaiting results of CXR * Nebs levalbuterol * urine for strep pneumo, mycoplasma and legionella ordered (2) Iron deficiency anemia: Code(s): D50.9 - Iron deficiency anemia, unspecified Status: Chronic Assessment and Plan: * Continue home meds once they are confirmed. * Monitor and trend CBC. (3) Atrial fibrillation: Code(s): I48.91 - Unspecified atrial fibrillation Status: Chronic Assessment and Plan: * Telemetry * Continue home meds once confirmed. * Strip showing NSR. (4) Acute on chronic congestive heart failure: Code(s): I50.9 - Heart failure, unspecified Status: Chronic Assessment and Plan: * Chronic heart failure * Last ECHO showing normal LVSF w/EF of 60-65% on 12/02/24. * Daily weight * Accurate Intake and output Time Spent With Patient Time with patient: 25 - 35 minutes Subjective Date/time seen: 12/28/24 13:10 Interval history: This 64 year old female pt with PMH of A-fib off of Eliquis for two years secondary to abdominal rectal sheath hematoma, COPD, Diastolic dysfunction, anemia, GERD, CVA and HF came to the ER from home with complaints of feeling fatigued and dyspneic. She was recently admitted and was just discharged on 12/08/24 w/acute COPD exacerbation. She was determined to need 5L oxygen per nocturnal oximetry and completed abx and discharged to follow up with Power Regulator as outpt as well as Cardiology as outpt. Patient is a former smoker that quit 2021, she does not use alcohol or any illicit drugs. Patient was recently treated with steroids at the time of discharge. She denies any chest pain but is very fatigued and difficult to awaken. She was requiring BiPAP to maintain her saturations. see cross cover note Review of Systems Review of Systems: All systems reviewed & are unremarkable except as noted in HPI and below Exam Const: General: comfortable Other: Obese, somnolent HENMT: Face/Nose/Sinus: Normal nares present Mouth: Yes dry mucous membranes Eyes: General: appearance normal, both eyes and all related structures Sclera: sclerae normal Pupils: Equal, round and reactive pupils present EOM: EOMs intact bilaterally Neck: Neck: supple and no JVD Lymphatic: lymphadenopathy not noted Chest: Other: not tender Resp: Effort & Inspection: abnormal respiratory effort (Increased effort) Auscultation: diminished lung sounds bilateral (Bases) Other: scattered wheezing Cardio: Rate: regular rate Rhythm: regular rhythm Heart sounds: no g allops, no murmurs and no rubs GI: Inspection: non-distended Auscultation: normal bowel sounds Skin: General skin exam: No normal color (pale), No lesion and No rashes Lesions: no lesions noted Rashes: no rashes noted Wounds: no wounds Neuro: Cranial nerves: Yes Equal, round and reactive pupils present Speech: normal speech Motor exam (neuro): Abnormal motor strength present (Generalized weakness) Extrem: General: edema Other: BLE edema. Not pitting Psych: Mental Status: mental status grossly normal Affect: normal affect Objective Data Vital Signs Vital Signs: Vital Signs - 24 hr 12/28/24 00:41 12/28/24 00:49 12/28/24 01:16 Temperature 97.9 F Pulse Rate 76 71 Respiratory Rate 22 H 16 Blood Pressure 136/117 H Pulse Oximetry 93 93 Oxygen Delivery Nasal Cannula Nasal Cannula Oxygen Flow Rate 4 4 12/28/24 01:16 12/28/24 01:46 12/28/24 02:01 Temperature Pulse Rate 71 72 71 Respiratory Rate 16 17 18 Blood Pressure 132/86 129/54 L 113/94 H Pulse Oximetry 94 100 100 Oxygen Delivery Oxygen Flow Rate 12/28/24 02:32 12/28/24 03:14 12/28/24 04:04 Temperature Pulse Rate 70 85 71 Respiratory Rate 18 23 H 21 H Blood Pressure 138/92 H 99/49 L Pulse Oximetry 96 Oxygen Delivery BiPAP Oxygen Flow Rate 12/28/24 04:16 12/28/24 04:31 12/28/24 04:46 Temperature Pulse Rate 69 66 68 Respiratory Rate 19 17 18 Blood Pressure 119/49 L 122/49 L 131/70 Pulse Oximetry 97 96 Oxygen Delivery Oxygen Flow Rate 12/28/24 05:01 12/28/24 05:16 12/28/24 05:31 Temperature Pulse Rate 67 66 67 Respiratory Rate 18 16 22 H Blood Pressure 129/52 L 115/53 L 111/53 L Pulse Oximetry 98 96 Oxygen Delivery Oxygen Flow Rate 12/28/24 05:53 12/28/24 06:00 12/28/24 06:25 Temperature 97.6 F Pulse Rate 70 68 68 Respiratory Rate 24 H 24 H Blood Pressure 143/96 H Pulse Oximetry 95 95 Oxygen Delivery BiPAP Oxygen Flow Rate 12/28/24 06:41 12/28/24 08:18 12/28/24 08:23 Temperature Pulse Rate 65 105 H Respiratory Rate 19 18 20 Blood Pressure Pulse Oximetry 97 Oxygen Delivery BiPAP BiPAP Oxygen Flow Rate 12/28/24 08:40 12/28/24 11:59 Temperature 97.4 F L 98.3 F Pulse Rate 69 79 Respiratory Rate 19 18 Blood Pressure 114/47 L 126/45 L Pulse Oximetry 97 94 Oxygen Delivery Oxygen Flow Rate Meds/Results Medications: Active Medications Generic Name Dose Route Start Last Admin Trade Name Freq PRN Reason Stop Dose Admin Albuterol 2.5 mg 12/28/24 05:06 Albuterol Sulfate Neb 2.5 Mg/3 Ml Inh INHALATION Q4HRT PRN Shortness Of Breath Albuterol/Ipratropium 3 ml 12/28/24 08:00 12/28/24 08:23 Ipratropium 0.5 Mg/Albuterol Sulfate 2.5 Mg Ampul.Neb 3 Ml INHALATION 3 ml Q6HRT YODIT Administration Guaifenesin 1,200 mg 12/28/24 21:00 Guaifenesin 12 Hr 600 Mg Tabcr PO Q12HR YODIT Levofloxacin 750 mg 12/28/24 06:00 12/28/24 06:11 Levofloxacin 750 Mg Tablet PO 750 mg Q48H YODIT Administration Methylprednisolone Sodium Succinate 20 mg 12/28/24 18:00 Methylprednisolone Sod Succ 125 Mg Vial IV PUSH Q6HR [facility] Radiology Results: ITS Impressions Chest X-Ray 12/28/24 05:22 Impression: Probable chronic interstitial disease with basilar predominance. Labs Labs: Laboratory Results - last 24 hr 12/28/24 12/28/24 12/28/24 01:00 01:04 10:21 WBC 13.4 H RBC 4.01 L Hgb 10.6 L Hct 36.4 L MCV 90.8 MCH 26.4 MCHC 29.1 L RDW 14.6 H Plt Count 186 MPV 9.5 Immature Gran % (Auto) 0.5 Neut % (Auto) 69.1 Lymph % (Auto) 19.9 [place] % (Auto) 8.4 Eos % (Auto) 1.8 Baso % (Auto) 0.3 Lymph # (Auto) 2.66 [place] # (Auto) 1.1 H Eos # (Auto) 0.2 Baso # (Auto) 0.0 Abs Immat Gran (auto) 0.07 H Absolute Neuts (auto) 9.2 H Absolute Nucleated RBC 0.000 Band Neutrophils % 0 Nucleated RBC % 0.0 Platelet Estimate Adequate Hypochromasia 1+ Anisocytosis 1+ Schistocytes None seen D-Dimer 0.43 VBG pH 7.329 VBG pCO2 72.1 H* VBG pO2 42.9 VBG HCO3 37.1 H O2 Delivery Device Not Reportable O2 Liters/Min Not Reportable FiO2 21 Sodium 132 L Potassium 4.0 Chloride 89 L Carbon Dioxide 37 H Anion Gap 6 BUN 19 H Creatinine 1.34 H Estim Creat Clear Calc 48 Estimated GFR 40 L Glucose 160 H Calcium 9.3 Magnesium 1.7 Total Bilirubin 0.6 AST 14 ALT 11 Alkaline Phosphatase 112 NT-Pro-B Natriuret Pep 563 H Total Protein 7.0 Albumin 3.8 Influenza A (RT-PCR) Influenza B (RT-PCR) RSV (RT-PCR) SARS-CoV-2 RNA (RT-PCR) 12/28/24 10:52 WBC RBC Hgb Hct MCV MCH MCHC RDW Plt Count MPV Immature Gran % (Auto) Neut % (Auto) Lymph % (Auto) [place] % (Auto) Eos % (Auto) Baso % (Auto) Lymph # (Auto) [place] # (Auto) Eos # (Auto) Baso # (Auto) Abs Immat Gran (auto) Absolute Neuts (auto) Absolute Nucleated RBC Band Neutrophils % Nucleated RBC % Platelet Estimate Hypochromasia Anisocytosis Schistocytes D-Dimer VBG pH VBG pCO2 VBG pO2 VBG HCO3 O2 Delivery Device O2 Liters/Min FiO2 Sodium Potassium Chloride Carbon Dioxide Anion Gap BUN Creatinine Estim Creat Clear Calc Estimated GFR Glucose Calcium Magnesium Total Bilirubin AST ALT Alkaline Phosphatase NT-Pro-B Natriuret Pep Total Protein Albumin Influenza A (RT-PCR) Negative Influenza B (RT-PCR) Negative RSV (RT-PCR) Negative SARS-CoV-2 RNA (RT-PCR) Negative Quality VTE Prophylaxis VTE prophylaxis: mechanical ordered
--- NOTE | 2024-12-28 14:50 | PM.EVENT ---
Event Note Event Note Event Note: Pt is seen by previous provider at 0451 this am. See H/P. This is a f/u note. PT is seen and examined. Pt is following by pulm. currently on o2. Home meds reviewed and restarted. She c/o elevated HR from breathing tx she previous received, so ok to stop those and start levalbuterol as it should not affect hr as much. She is ok otherwise- denies any other complains. She is on levaquin 750 mg q48h. IV steroids - decreased to 20 mg iv q6h per DR Gray.
[2024-12-28] MEDS: ESCITALOPRAM OXALATE 10 MG TABLET 20 MG PO (15:55)
[2024-12-28] MEDS: FUROSEMIDE 20 MG TABLET PO (16:25)
[2024-12-28] MEDS: DULoxetine HCL 20 MG CAPSULE.DR 40 MG PO (16:26)
[2024-12-28] MEDS: FERROUS SULFATE 325 MG TABLET DR BY MOUTH (16:26)
[2024-12-28] MEDS: methylPREDNISolone SOD SUCC 125 MG VIAL 20 MG IV PUSH (17:49)
[2024-12-28] MEDS: IPRATROPIUM BR 0.02% INH SOLN 0.5 MG/2.5 ML VIAL INHALATION (20:13)
[2024-12-28] MEDS: LEVALBUTEROL NEB 1.25 MG/3 ML INHALATION (20:14)
[2024-12-28] MEDS: rOPINIRole HCL 1 MG TABLET 4 MG PO (20:56)
[2024-12-28] MEDS: AMITRIPTYLINE HCL 10 MG TABLET PO (20:56)
[2024-12-28] MEDS: QUEtiapine FUMARATE 25 MG TABLET PO (20:57)
[2024-12-28] MEDS: TOPIRAMATE 100 MG TABLET 200 MG PO (20:57)
[2024-12-28] MEDS: PANTOPRAZOLE 40 MG TABLET PO (20:58)
[2024-12-28] MEDS: guaiFENesin 12 HR 600 MG TABCR 1200 MG PO (20:58)
[2024-12-28] MEDS: METOPROLOL TARTRATE 50 MG TAB 100 MG PO (20:58)
[2024-12-28] MEDS: traZODone HCL 50 MG TABLET PO (20:59)
--- NOTE | 2024-12-28 21:05 | ECG_ITS ---
Test Date: 2024-12-28 21:11:45 Measurements Intervals [place] Rate: 161 P: 225 GA: 85 QRS: 32 QRSD: 146 T: -14 QT: 297 QTc: 486 Interpretive Statements SUPRAVENTRICULAR TACHYCARDIA RIGHT BUNDLE BRANCH BLOCK [120+ ms QRS DURATION, UPRIGHT V1, 40+ ms S IN I/aVL/V4/V5/V6] ST DEPRESSION, CONSIDER SUBENDOCARDIAL INJURY [0.1+ mV ST DEPRESSION] Compared to ECG 12/28/2024 00:59:47 TACHYCARDIA NOW PRESENT Electronically Signed On 12-29-2024 10:07:20 CDT by Bg Chaparro M.D.
[2024-12-29] VITALS (26 sets, daily range): BP systolic 105–128; BP diastolic 44–92; PULSE 56–80; RESP 12–30; TEMP 36.5–37.1; O2SAT 92–100
[2024-12-29] MEDS: methylPREDNISolone SOD SUCC 125 MG VIAL 20 MG IV PUSH ×4 (00:01→17:01)
[2024-12-29 04:45] LABS: Basophils Percent Auto 0.1 % (0.2-1.2); Hematocrit 33.2 % (37.0-47.0); Hemoglobin 9.7 g/dL (12.0-15.0); Immature Granulocyte Absolute 0.19 K/mm3 (0.00-0.031); Immature Granulocyte Percent A 1.2 % (0-0.5); Lymphocytes Absolute Auto 0.73 K/mm3 (0.9-3.2); Lymphocytes Percent Auto 4.8 % (18.3-44.2); Mean Corpuscular HGB Conc 29.2 g/dl (32-36); Mean Corpuscular Hemoglobin 26.5 pg (26-34); Mean Corpuscular Volume 90.7 fl (80-100); Mean Platelet Volume 9.9 fl (7.4-10.4); Monocytes Absolute Auto 0.4 K/mm3 (0.1-0.6); Monocytes Percent Auto 2.5 % (2.6-8.5); Neutrophils Absolute Auto 13.9 K/mm3 (1.3-6.7); Neutrophils Percent Auto 91.4 % (45.5-73.1); Platelet Count Result 181 k/mm3 (150-375); Red Blood Count 3.66 M/mm3 (4.2-5.4); Red Cell Distribution Width 14.6 % (11.5-14.5); White Blood Count 15.2 K/mm3 (4.5-10.0)
[2024-12-29 05:00] LABS: Alanine Aminotransferase 12 U/L (6-35); Albumin Level 3.6 g/dL (3.5-5.1); Alkaline Phosphatase 93 U/L (38-126); Anion Gap 6 mmol/L (4-12); Aspartate Amino Transferase 10 U/L (14-36); Bilirubin,Total 0.2 mg/dL (0.2-1.3); Blood Urea Nitrogen 35 mg/dL (7-17); Calcium 9.6 mg/dL (8.4-10.2); Carbon Dioxide 39 mmol/L (22-30); Chloride 91 mmol/L (98-107); Estimated CRCL calculation 40 ml/min; Estimated Glomerular Filt Rate 32; Glucose 206 mg/dL (65-110); Potassium 4.5 mmol/L (3.4-5.0); Sodium 136 mmol/L (137-145)
[2024-12-29 05:18] LABS: Anisocytosis 1+; Band Neutrophils Percent 0 % (0-6); Ovalocytes 1+; Platelet Estimate Adequate (Adequate); Schistocytes None Seen
--- NOTE | 2024-12-29 08:06 | P.PNPL_ITS ---
Progress Note: A&P Assessment and Plan (1) Chronic obstructive pulmonary disease: Code(s): J44.9 - Chronic obstructive pulmonary disease, unspecified Status: Chronic Assessment and Plan: Regarding her COPD, 50 pack year tobacco use, quit 08/23/2022, alpha 1 anti trypsin genotype MZ, alpha 1 anti trypsin level 134, normal. The patient has been on oxygen for the last 5 years. I have no PFTs. She is using 5 L at rest with home saturations 92-96%. First CT scan in our system is from 08/27/2022 shows mild apical predominant centrilobular emphysema. Repeat CT angiogram of the chest on 12/02/2024 demonstrates mild apical predominant centrilobular emphysema. Patient is maintained on trelegy inhaler but she does not use a because of the taste. Patient takes Trelegy 100, montelukast 10 and albuterol p.r.n.. Patient tells me she wheezes every day when she takes rescue albuterol at home it relieves her wheezing for 1-2 minutes. 12/01/2024: White blood cell count 14.8, eosinophils 0.6%= 89 per micro L. patient presents with shortness of breath, no change in phlegm production or color, worsening shortness of breath and hypoxemic respiratory failure. Patient treated with bronchodilators, steroids and BiPAP. 12/28/24: The patient tells me that the day after she left the hospital she started getting worse with fatigue and then worsening oxygenation about 5 days ago. On her prescribed 2 L her saturations were in the 80s and then as low as 79%. She denied fever, chills, rigors. She had a dry cough with no phlegm and no hemoptysis. Currently says she is improved and breathing 50% back to her normal but she feels still feels tired and short of breath. The patient told me she had improved and could come off of the mask and she was placed on 3 L nasal cannula with saturations 91% Plan: Will continue treatment for possible COPD exacerbation. Patient has wheezing but has wheezing every day. I will decrease her Solu-Medrol to 20 mg IV q.6 hours. Continue DuoNebs q.6 hours. Patient is on levofloxacin for possible pneumonia and bronchitis. I will obtain a D-dimer and if positive will get a CT angiogram of the chest. If negative will get a CT scan of the chest looking for focal infiltrates consistent with a pneumonia. Goal saturation 90- 94%, Adjust oxygen accordingly. Will add guaifenesin 1200 mg p.o. b.i.d. Later in the day patient had a CT scan of the chest with moderate apical predominant centrilobular emphysema and bibasilar atelectasis with no evidence of pneumonia. 12/29/2024: Patient states she had a bad night and his breathing worse today. Her cough is increased with no phlegm and no blood. She is afebrile. White blood cell count 15.2, creatinine 1.61. Currently patient is on 4 L nasal cannula saturations 94%. Patient received a Xopenex treatment and had a heart rate 160 that decreased on its own and required no medical intervention. Plan: I will continue Solu-Medrol 20 mg IV q.6. I will discontinue her levalbuterol due to the tachy arrhythmia increase her ipratropium nebulizers to q.4 hours. No evidence of pneumonia. Will treat for tracheobronchitis with Levaquin 750 mg p.o. q.48h, day 2. Continue guaifenesin 12 50 b.i.d., montelukast 10. Patient is on Lasix 20 p.o. b.i.d.. Will follow with you. (2) Chronic hypercapnic respiratory failure: Code(s): J96.12 - Chronic respiratory failure with hypercapnia Status: Acute Assessment and Plan: Last admission patient presented with hypercarbic respiratory failure but after she improved with treatment for COPD exacerbation and fluid overload her blood gas was 7.39/48/97 and she did not qualify for BiPAP or noninvasive ventilation. Current venous blood gas Venous blood gas listed as room air 7.33/72/ 43. The patient told me she had improved and could come off of the mask and she was placed on 3 L nasal cannula with saturations 91% 12/28/24: Currently the patient is on BiPAP rate of 18, pressures 14/8 with 40% FiO2. Patient told me these settings were uncomfortable for her and I changed them to noninvasive ventilation with the AVAPS mode rate of 14, tidal volume 500, EPAP 5, minimal inspiratory pressure 6, maximal inspiratory pressure 25, inspiratory time 1.0, rise of 1 which is the fastest and 40% FiO2. She said this was more comfortable. The patient told me she had improved and could come off of the mask and she was placed on 3 L nasal cannula with saturations 91%. Plan: noninvasive ventilation with the AVAPS mode p.r.n. during the day. I recommend she wear this tonight. After she has improved will repeat ABG during the day. 12/29/24: Patient attempted to wear the fullface mask with the AVAPS settings as above and she did wear the mask but she could not sleep. plan: Patient says she will try to wear the AVAPS again tonight. I told her if she can not sleep with the mask on that she needs to take the mask off so that she can try to sleep. Subjective Date/time seen: 12/29/24 08:06 Interval history: 12/28/2024: This is a new pulmonary consult for COPD exacerbation. 64-year-old with a history of AFib off anticoagulation for 2 years secondary to abdominal rectal sheath hematoma, diastolic dysfunction, GERD, HTN, restless legs syndrome, anxiety and COPD with chronic hypoxemic respiratory failure on 5 L at Night and 2 L with rest and activity per home O2 assessment on 12/08/2024. I previously saw the patient as an inpatient on 12/02/2024 when she was admitted for COPD exacerbation. Regarding her COPD, 50 pack year tobacco use, quit 08/23/2022, alpha 1 anti trypsin genotype MZ, alpha 1 anti trypsin level 134, normal. The patient has been on oxygen for the last 5 years. I have no PFTs. She is using 5 L at rest with home saturations 92-96%. First CT scan in our system is from 08/27/2022 shows mild apical predominant centrilobular emphysema. Repeat CT angiogram of the chest on 12/02/2024 demonstrates mild apical predominant centrilobular emphysema. Patient is maintained on trelegy inhaler but she does not use a because of the taste. Patient takes Trelegy 100, montelukast 10 and albuterol p.r.n.. Patient tells me she wheezes every day when she takes rescue albuterol at home it relieves her wheezing for 1-2 minutes. 12/01/2024: White blood cell count 14.8, eosinophils 0.6%= 89 per micro L. 12/02/2024 through 12/08/2024:? Presented to the emergency room with COPD exacerbation, hypercarbic and hypoxemic respiratory failure, AFib with RVR, and fluid overload.? Treated with BiPAP, steroids, bronchodilators, antibiotics, and diuretics.? CTA of the chest with no PE, mild apical predominant centrilobular emphysema, ?upper and lower extremity Dopplers negative for DVT.? Echocardiogram with LVEF 60-65%, RV was dilated with normal systolic function.? Left atrium normal, right atrium normal, RVSP 27. ?After she improved clinically on 12/06/2024: ABG on 5 L nasal cannula pH 7.39/48/97. ?Patient improved and was discharged on 12/08/24 on trelegy 100, rescue albuterol, montelukast 10, guaifenesin 600 b.i.d. p.r.n. congestion, no Lasix, amiodarone 200 b.i.d., metoprolol 100 q.12, she had completed 5 days of steroids in house and I did not recommend a discharge taper, however, the hospitalist discharge her on a 15 day prednisone taper. Required 2 L oxygen at rest and with activity per home O2 assessment and per overnight oximetry required 5 L NC when she naps or sleeps. ?12/08/24: creatinine 1.68. Her weight is 120.8 kg.? 12/28/2024: Presented to the emergency room with shortness of breath. blood pressure 136/117, heart rate 76, nasal cannula saturation 93%. Patient had wheezing throughout all lung paul. White blood cell count 13.4 with eosinophils 1.8%=241/ul. creatinine 1.34, serum bicarbonate 37, BNP 563. Venous blood gas listed as room air 7.33/72/ 43. patient placed on BiPAP, treated with bronchodilators, received IV steroids per EMS, lasix 40 IV. 12/28/24: Currently the patient is on BiPAP rate of 18, pressures 14/8 with 40% FiO2. Patient told me these settings were uncomfortable for her and I changed them to noninvasive ventilation with the AVAPS mode rate of 14, tidal volume 500, EPAP 5, minimal inspiratory pressure 6, maximal inspiratory pressure 25, inspiratory time 1.0, rise of 1 which is the fastest and 40% FiO2. She said this was more comfortable. The patient told me she had improved and could come off of the mask and she was placed on 3 L nasal cannula with saturations 91% The patient tells me that the day after she left the hospital she started getting worse with fatigue and then worsening oxygenation about 5 days ago. On her prescribed 2 L her saturations were in the 80s and then as low as 79%. She denied fever, chills, rigors. She had a dry cough with no phlegm and no hemoptysis. Currently says she is improved and breathing 50% back to her normal but she feels still feels tired and short of breath. Later in the day patient had a CT scan of the chest with moderate apical predominant centrilobular emphysema and bibasilar atelectasis with no evidence of pneumonia. 12/29/2024: Patient states she had a bad night and his breathing worse today. Her cough is increased with no phlegm and no blood. She is afebrile. White blood cell count 15.2, creatinine 1.61. Currently patient is on 4 L nasal cannula saturations 94%. Patient tempted to wear the fullface mask with the AVAPS settings as above and she did wear the mask but she could not sleep. Patient received a Xopenex treatment and had a heart rate 160 that decreased on its own and required no medical intervention. DATA: 12/28/24: CT chest CLINICAL INDICATION: Pneumonia suspected clinically COMPARISON: Reference is made to plain film evaluation of the chest, performed approximately 12 hours earlier and dating back to 12/05/2024. Reference is also made to a CT angiogram of the chest dated 10/20/2022 FINDINGS/OBSERVATIONS: Lung: bibasilar atelectasis, unchanged from chest radiograph. The remainder the lungs are clear. HEART: The heart is borderline enlarged, without pericardial effusion. MEDIASTINUM: Redemonstration of a large left thyroid nodule, increased in size from 2022 examination. No pathologically enlarged or morphologically suspicious lymph nodes are identified within the mediastinum, bilateral axilla, within the soft tissues of the anterior chest wall. SOFT TISSUES OF THE CHEST: Unremarkable. BONES OF THE CHEST: No acute fracture. No lytic or blastic lesions are identified. IMPRESSION: No cross-sectional imaging evidence to suggest the presence of pneumonia. Bibasilar atelectasis, unchanged from a recent radiograph, as detailed above.. 12/08/2024: Home O2 assessment: Rest room air saturation 87%. Rest nasal cannula 1 L saturation 88%. Rest nasal cannula saturation 93%. Exercise nasal cannula 2 L saturation 94%. Patient requires 2 L with rest and with activity. 12/07/24: Patient had an overnight oximetry on 5 L nasal cannula with recording duration of 6 hours and 58 minutes. Average saturation 98%. Low saturation 95%. Time with saturation less than or equal to 88% was 0 minutes. Oxygen desaturation index 0. 12/06/2024: ABG on 5 L nasal cannula pH 7.39/48/97. ? 12/02/2024: Alpha 1 anti trypsin genotype [place] MZ. 12/02/2024: Alpha 1 anti trypsin level 135, normal 83-199. 12/02/24: CTA chest PE protocol History: 64 years Female with . R/O PE . Findings: PULMONARY ARTERIES: No pulmonary embolus. VISUALIZED THORACIC INLET: Left thyroid nodule is noted. Ultrasound evaluation advised. MEDIASTINUM: Aorta/coronary arteries: Mild atheromatous disease. Heart/other: The heart is not enlarged. Lymph nodes: No mediastinal or hilar adenopathy. Precarinal lymph node measuring 1.6 cm noted. LUNGS: Atelectasis versus pneumonia seen in the right lung base inferiorly. Minimal atelectasis versus pneumonia in the left lung base is also noted. No pulmonary nodules or masses. No effusions. No pneumothorax. VISUALIZED UPPER abdomen: the visualized upper abdomen is normal. MUSCULOSKELETAL: Soft tissues: The superficial soft tissues are normal. Bones: Age appropriate degenerative changes of the spine. IMPRESSION: 1. No pulmonary embolism. 2. Bilateral basal atelectasis versus pneumonia. Clinical correlation advised. 12/02/2024: Echo Summary 1. The left ventricle is normal in size and systolic function. The left ventricular ejection fraction visually estimated to be 60-60%. 2. The right ventricle is dilated with normal systolic function. 3. There are no significant valvular abnormalities. 4. Technically difficult study. Left Ventricle The left ventricle is normal in size and systolic function. The left ventricular ejection fraction visually estimated to be 60-60%. Diastolic dysfunction is present. Right Ventricle The right ventricle is dilated with normal systolic function. Left Atria The left atrium is normal size. Right Atria The right atrium is normal size. RVSP 27 12/17/2023: CT Scan of the Chest without Contrast: Clinical Indication: Lung cancer screening, nicotine dependence COMPARISON: 04/06/2023 Findings: Stable enlarged left thyroid lobe. There is no evidence of any significant mediastinal, hilar or axillary lymphadenopathy. Atherosclerotic calcifications of the aorta are present. There is no evidence of pleural or pericardial effusion. There is irregular airspace opacity in the posterior right lower lobe, improved from prior exam, likely representing postinflammatory change, as there is a previous more extensive area of consolidation in this location. Mild emphysema. Images through the upper abdomen reveal no abnormalities. Impression: Lung RADS 2: Benign appearance. 12 month follow-up screening CT advised. 09/10/2022: Echo Summary 1. Technically difficult study with limited views. Regional wall motion assessment limited due to poor endomyocardial border definition despite definity contrast enhancement. 2. Left ventricular chamber dimension is normal. 3. Left ventricular systolic function is normal, estimated at 65-70%. 4. There is mildly increased left ventricular wall thickness. 5. Right ventricular chamber dimension is normal. 6. Right ventricular systolic function is moderately reduced. TAPSE 1.3. 7. There is trace tricuspid valve regurgitation. 8. Mild pulmonary hypertension, estimated pulmonary arterial systolic pressure is 37 mmHg. 9. Normal inferior vena cava with <50% collapse upon inspiration consistent with elevated right atrial pressure, 10 mmHg. 08/28/2022: Summary 1. Left ventricular chamber dimension is normal. 2. Left ventricular systolic function is normal, estimated at 60-65%. 3. The left ventricular diastolic function is grade I diastolic dysfunction. 4. Right ventricular chamber dimension is moderately enlarged. 5. Right ventricular systolic function is normal. 6. There is moderate tricuspid valve regurgitation, which may be underestimated due to the eccentricity of the jet. 7. Dilated inferior vena cava with no collapse upon inspiration consistent with elevated right atrial pressure, 15 mmHg. 8. Pulmonary hypertension with an estimated PASP of 59mmHg. Right Ventricle Right ventricular chamber dimension is moderately enlarged. Right ventricular systolic function is normal. Right Atria Right atrial chamber dimension is normal. Atrial Septum Intact interatrial septum visualized by color flow imaging. 08/27/2022: EXAMINATION: CT chest high resolution wo co DATE: 08/27/2022 16:07 INDICATION: respiratory failure TECHNIQUE: Computed tomography (CT) of the chest was performed without intravenous contrast. Automated exposure control and iterative reconstruction technique were employed. The dose-length product was 818.52 mGy-cm. COMPARISON: X-ray chest 08/27/2022 and CTA chest 07/21/2018. FINDINGS: CHEST: Endotracheal tube terminating 2.5 cm above the maria esther. Thoracic aorta: No significant dilation. Moderate arch calcification. Lung parenchyma and airways: Diffuse tree-in-bud opacities most evident in the right lung. Scattered centrilobular nodular opacities measuring up to 11 mm in the right upper lobe. Mild interlobular septal thickening. Bibasilar dependent opacities likely representing atelectasis. Mild emphysematous change. Thoracic inlet, axillae and chest wall: No thyroid or soft tissue mass. No axillary lymphadenopathy. Mediastinum: Mediastinal lymphadenopathy. Dilated central pulmonary arteries as can be seen with pulmonary arterial hypertension. Heart and pericardium: Normal heart size. Aortic valve calcification. No pericardial effusion. Coronary artery calcifications: Mild. Pleura: Trace bilateral pleural fluid. Upper abdomen: No significant finding. Thoracic bones: No acute osseous finding in the chest. IMPRESSION: 1. Tree-in-bud opacities as can be seen with atypical infection (including but not limited to: MAC, TB, fungal), ABPA, airways disease, and less likely aspiration. 2. Nodular opacity in right upper lobe should be followed after the appropriate therapy and cessation of symptoms to ensure resolution. 3. Mediastinal lymphadenopathy. 4. Trace bilateral pleural effusions. 5. Mild interstitial edema. Review of Systems Constitutional: Constitutional: Reports no additional constitutional complaints Eyes: Eyes: Reports no additional eye complaints ENT: Reports system reviewed and no additional complaints, except as documented Cardiovascular: Cardiovascular: Reports no additional cardiovascular complaints Respiratory: Respiratory: Reports no additional respiratory complaints Gastrointestinal: Gastrointestinal: Reports no additional gastrointestinal complaints Musculoskeletal: Musculoskeletal: Reports no additional musculoskeletal complaints Neurologic: Reports system reviewed and no additional complaints, except as documented Psychiatric: Psychiatric: Reports no additional psychiatric complaints Endocrine: Endocrine: Reports no additional endocrine complaints Hematologic/Lymphatic: Hematologic/Lymphatic: Reports no additional hematologic/lymphatic complaints Allergic/Immunologic: Allergic/Immunologic: Reports no additional allergic/immunologic complaints Exam Const: General: cooperative, healthy appearing and comfortable Orientation/consciousness: oriented to person, oriented to place and oriented to time HENMT: Head: normal to inspection Ears: hearing grossly normal bilaterally Eyes: General: appearance normal, both eyes and all related structures Neck: Neck: normal visual inspection Chest: Chest palpation & inspection: normal inspection of the chest Resp: Effort & Inspection: normal respiratory effort and able to speak in complete sentences Auscultation: no crackles, no rales, no rhonchi, wheezes and diminished lung sounds Other: Expiratory wheezes Cardio: Jugular venous distension: no JVD GI: Inspection: normal to inspection Skin: General skin exam: normal color Neuro: General: oriented to person, oriented to place and oriented to time Extrem: General: edema Other: Psych: Appearance: grossly normal Objective Data Vital Signs Vital Signs: Vital Signs - 24 hr 12/28/24 08:18 12/28/24 08:23 12/28/24 08:40 Temperature 36.3 C L Pulse Rate 65 105 H 69 Respiratory Rate 18 20 19 Blood Pressure 114/47 L Pulse Oximetry 97 97 Oxygen Delivery BiPAP Oxygen Flow Rate 12/28/24 10:00 12/28/24 11:59 12/28/24 12:00 Temperature 36.8 C Pulse Rate 71 79 Respiratory Rate 18 Blood Pressure 126/45 L Pulse Oximetry 94 95 Oxygen Delivery Nasal Cannula Oxygen Flow Rate 3 12/28/24 12:00 12/28/24 14:00 12/28/24 14:53 Temperature Pulse Rate 74 76 Respiratory Rate Blood Pressure Pulse Oximetry 94 Oxygen Delivery Nasal Cannula Oxygen Flow Rate 3 12/28/24 16:00 12/28/24 16:00 12/28/24 16:00 Temperature 37.3 C Pulse Rate 85 87 Respiratory Rate 12 Blood Pressure 110/45 L Pulse Oximetry 91 90 Oxygen Delivery Nasal Cannula Oxygen Flow Rate 3 12/28/24 18:00 12/28/24 20:00 12/28/24 20:00 Temperature 36.8 C Pulse Rate 85 84 85 Respiratory Rate 18 90 H Blood Pressure 118/31 L Pulse Oximetry 92 95 Oxygen Delivery Nasal Cannula Oxygen Flow Rate 4 12/28/24 20:00 12/28/24 20:14 12/28/24 20:20 Temperature Pulse Rate 85 84 Respiratory Rate 20 Blood Pressure Pulse Oximetry 95 Oxygen Delivery Nasal Cannula Oxygen Flow Rate 3 12/28/24 20:29 12/28/24 20:58 12/28/24 21:10 Temperature Pulse Rate 87 88 161 H Respiratory Rate 20 Blood Pressure Pulse Oximetry Oxygen Delivery Oxygen Flow Rate 12/28/24 21:39 12/28/24 21:48 12/29/24 00:00 Temperature 36.9 C Pulse Rate 86 87 71 Respiratory Rate 22 H 18 Blood Pressure 105/65 Pulse Oximetry 97 98 Oxygen Delivery Oxygen Flow Rate 12/29/24 00:00 12/29/24 00:00 12/29/24 01:43 Temperature Pulse Rate 70 70 66 Respiratory Rate 18 Blood Pressure Pulse Oximetry 96 Oxygen Delivery BiPAP Oxygen Flow Rate 12/29/24 04:00 12/29/24 04:00 12/29/24 04:00 Temperature 36.6 C Pulse Rate 68 68 64 Respiratory Rate 18 17 Blood Pressure 128/92 H Pulse Oximetry 98 98 Oxygen Delivery BiPAP Oxygen Flow Rate 12/29/24 06:00 12/29/24 07:51 Temperature 36.8 C Pulse Rate 72 64 Respiratory Rate 12 Blood Pressure 127/48 L Pulse Oximetry 93 Oxygen Delivery Oxygen Flow Rate Intake/Output Intake/Output: Intake & Output 12/26/24 12/27/24 12/28/24 12/29/24 23:59 23:59 23:59 23:59 Intake Total 1030 350 Balance 1030 350 Meds/Results Medications: Active Medications Generic Name Dose Route Start Last Admin Trade Name Freq PRN Reason Stop Dose Admin Albuterol 2 puff 12/28/24 16:08 Albuterol Sulfate (*Sp) Aerosol 1 Puff INHALATION Q6HRT PRN Shortness Of Breath Amiodarone HCl 200 mg 12/29/24 09:00 Amiodarone Hcl 200 Mg Tablet PO DAILY YODIT Amitriptyline HCl 10 mg 12/28/24 21:00 12/28/24 20:56 Amitriptyline Hcl 10 Mg Tablet PO 10 mg HS YODIT Administration Duloxetine HCl 40 mg 12/28/24 17:00 12/28/24 16:26 Duloxetine Hcl 20 Mg Capsule.Dr PO 40 mg BID YODIT Administration Escitalopram Oxalate 20 mg 12/28/24 15:30 12/28/24 15:55 Escitalopram Oxalate 10 Mg Tablet PO 20 mg DAILY YODIT Administration Ferrous Sulfate 325 mg 12/28/24 17:00 12/28/24 16:26 Ferrous Sulfate [address] BY MOUTH 325 mg BID YODIT Administration Furosemide 20 mg 12/28/24 17:00 12/28/24 16:25 Furosemide 20 Mg Tablet PO 20 mg BID YODIT Administration Guaifenesin 1,200 mg 12/28/24 21:00 12/28/24 20:58 Guaifenesin 12 Hr 600 Mg Tabcr PO 1,200 mg Q12HR YODIT Administration Ipratropium [place] 0.5 mg 12/28/24 20:00 12/29/24 01:42 Ipratropium Br 0.02% Inh Soln 0.5 Mg/2.5 Ml Vial INHALATION Not Given Q6HRT YODIT Levalbuterol HCl 1.25 mg 12/28/24 20:00 12/29/24 01:41 Levalbuterol Neb 1.25 Mg/3 Ml INHALATION Not Given Q6HRT YODIT Levofloxacin 750 mg 12/28/24 06:00 12/28/24 06:11 Levofloxacin 750 Mg Tablet PO 750 mg Q48H YODIT Administration Magnesium Hydroxide 30 ml 12/28/24 14:40 Magnesium Hydroxide Susp 30 Ml Udc PO HS PRN Constipation Melatonin 5 mg 12/28/24 14:40 Melatonin 5 Mg Tablet PO HS PRN Insomnia Methylprednisolone Sodium Succinate 20 mg 12/28/24 18:00 12/29/24 05:39 Methylprednisolone Sod Succ 125 Mg Vial IV PUSH 20 mg Q6HR YODIT Administration Metoprolol Tartrate 100 mg 12/28/24 21:00 12/28/24 20:58 Metoprolol Tartrate 50 Mg Tab PO 100 mg Q12HR YODIT Administration Montelukast Sodium 10 mg 12/29/24 09:00 Montelukast Sodium 10 Mg Tablet PO DAILY YODIT Pantoprazole Sodium 40 mg 12/28/24 21:00 12/28/24 20:58 Pantoprazole 40 Mg Tablet PO 40 mg Q12HR YODIT Administration Quetiapine Fumarate 25 mg 12/28/24 21:00 12/28/24 20:57 Quetiapine Fumarate 25 Mg Tablet PO 25 mg HS YODIT Administration Ropinirole HCl 4 mg 12/28/24 21:00 12/28/24 20:56 Ropinirole Hcl 1 Mg Tablet PO 4 mg HS YODIT Administration Topiramate 200 mg 12/28/24 21:00 12/28/24 20:57 Topiramate 100 Mg Tablet PO 200 mg Q12HR YODIT Administration Trazodone HCl 50 mg 12/28/24 21:00 12/28/24 20:59 Trazodone Hcl 50 Mg Tablet PO 50 mg HS YODIT Administration Radiology Results: ITS Impressions Chest X-Ray 12/28/24 05:22 Impression: Probable chronic interstitial disease with basilar predominance. Chest CT 12/28/24 15:42 IMPRESSION: No cross-sectional imaging evidence to suggest the presence of pneumonia. Bibasilar atelectasis, unchanged from a recent radiograph, as detailed above.. Labs Labs: Laboratory Results - last 24 hr 12/28/24 12/28/24 12/29/24 10:21 10:52 04:12 WBC 15.2 H RBC 3.66 L Hgb 9.7 L Hct 33.2 L MCV 90.7 MCH 26.5 MCHC 29.2 L RDW 14.6 H Plt Count 181 MPV 9.9 Immature Gran % (Auto) 1.2 H Neut % (Auto) 91.4 H Lymph % (Auto) 4.8 L [place] % (Auto) 2.5 L Eos % (Auto) 0.0 Baso % (Auto) 0.1 L Lymph # (Auto) 0.73 L [place] # (Auto) 0.4 Eos # (Auto) 0.0 Baso # (Auto) 0.0 Abs Immat Gran (auto) 0.19 H Absolute Neuts (auto) 13.9 H Absolute Nucleated RBC 0.000 Band Neutrophils % 0 Nucleated RBC % 0.0 Platelet Estimate Adequate Anisocytosis 1+ Ovalocytes 1+ Schistocytes None seen D-Dimer 0.43 Sodium 136 L Potassium 4.5 Chloride 91 L Carbon Dioxide 39 H Anion Gap 6 BUN 35 H D Creatinine 1.61 H Estim Creat Clear Calc 40 Estimated GFR 32 L Glucose 206 H Calcium 9.6 Magnesium 2.0 Total Bilirubin 0.2 AST 10 L ALT 12 Alkaline Phosphatase 93 Total Protein 7.0 Albumin 3.6 Influenza A (RT-PCR) Negative Influenza B (RT-PCR) Negative RSV (RT-PCR) Negative SARS-CoV-2 RNA (RT-PCR) Negative
[2024-12-29 08:20] LABS: Procalcitonin 0.1 ng/mL
[2024-12-29] MEDS: AMIODARONE HCL 200 MG TABLET PO (09:39)
[2024-12-29] MEDS: TOPIRAMATE 100 MG TABLET 200 MG PO ×2 (09:39→20:22)
[2024-12-29] MEDS: MONTELUKAST SODIUM 10 MG TABLET PO (09:39)
[2024-12-29] MEDS: guaiFENesin 12 HR 600 MG TABCR 1200 MG PO ×2 (09:39→20:24)
[2024-12-29] MEDS: PANTOPRAZOLE 40 MG TABLET PO ×2 (09:39→20:24)
[2024-12-29] MEDS: METOPROLOL TARTRATE 50 MG TAB 100 MG PO ×2 (09:40→20:23)
[2024-12-29] MEDS: DULoxetine HCL 20 MG CAPSULE.DR 40 MG PO ×2 (09:40→16:58)
[2024-12-29] MEDS: FUROSEMIDE 20 MG TABLET PO ×2 (09:40→16:58)
[2024-12-29] MEDS: FERROUS SULFATE 325 MG TABLET DR BY MOUTH ×2 (09:40→16:57)
[2024-12-29] MEDS: ESCITALOPRAM OXALATE 10 MG TABLET 20 MG PO (09:40)
--- NOTE | 2024-12-29 10:44 | P.PNIM_ITS ---
Progress Note: A&P Assessment and Plan (1) Acute exacerbation of chronic obstructive pulmonary disease: Code(s): J44.1 - Chronic obstructive pulmonary disease with (acute) exacerbation Status: Acute Assessment and Plan: * Consult Pulmonology * IV Steroids 20 mg q 6h * Levaquin 750 mg daily * Continue BiPap to blow off CO2 * Trend labs and VS * Awaiting results of CXR * duonebs prn * urine for strep pneumo, mycoplasma and legionella ordered * will order chest physio therapy * continue mucinex (2) Iron deficiency anemia: Code(s): D50.9 - Iron deficiency anemia, unspecified Status: Chronic Assessment and Plan: * Continue home meds once they are confirmed. * Monitor and trend CBC. (3) Atrial fibrillation: Code(s): I48.91 - Unspecified atrial fibrillation Status: Chronic Assessment and Plan: * Telemetry * Continue home meds once confirmed. * Strip showing NSR. (4) Acute on chronic congestive heart failure: Code(s): I50.9 - Heart failure, unspecified Status: Chronic Assessment and Plan: * Chronic heart failure * Last ECHO showing normal LVSF w/EF of 60-65% on 12/02/24. * Daily weight * Accurate Intake and output Plan insomnia- melatonin doesnot help much will add trazadone avoid atarax Time Spent With Patient Time with patient: 25 - 35 minutes Subjective Date/time seen: 12/29/24 10:44 Interval history: 64 year old female pt with PMH of A-fib off of Eliquis for two years secondary to abdominal rectal sheath hematoma, COPD, Diastolic dysfunction, anemia, GERD, CVA and HF came to the ER from home with complaints of feeling fatigued and dyspneic. She was recently admitted and was just discharged on 12/08/24 w/acute COPD exacerbation. She was determined to need 5L oxygen per nocturnal oximetry and completed abx and discharged to follow up with [employer] as outpt as well as Cardiology as outpt. Patient is a former smoker that quit 2021, she does not use alcohol or any illicit drugs. Patient was recently treated with steroids at the time of discharge. She denies any chest pain but is very fatigued and difficult to awaken. She was requiring BiPAP to maintain her saturations. 12/29/2024: Pt is seen and examined. Patient states she had a bad night and she is not feeling much better. She is c/o cough. She is on 4 L nasal cannula saturations 94%. Patient tempted to wear the full face mask with the AVAPS settings -managed per pulm, but she could not sleep well. she is willing to try it again tonight. Patient received a Xopenex treatment and had a heart rate 160 that decreased on its own. Pt is seen and examined today. she is calm and comfortable. no pain. feels like it is hard for her to bring phlegm up. HR had been controlled and stable. Review of Systems Review of Systems: All systems reviewed & are unremarkable except as noted in HPI and below Exam Const: General: comfortable Other: Obese, somnolent HENMT: Face/Nose/Sinus: Normal nares present Mouth: Yes dry mucous membranes Eyes: General: appearance normal, both eyes and all related structures Sclera: sclerae normal Pupils: Equal, round and reactive pupils present EOM: EOMs intact bilaterally Neck: Neck: supple and no JVD Lymphatic: lymphadenopathy not noted Chest: Other: not tender Resp: Effort & Inspection: abnormal respiratory effort (Increased effort) Auscultation: diminished lung sounds bilateral (Bases) Other: scattered wheezing Cardio: Rate: regular rate Rhythm: regular rhythm Heart sounds: no gallops, no murmurs and no rubs GI: Inspection: non-distended Auscultation: normal bowel sounds Skin: General skin exam: No normal color (pale), No lesion and No rashes Lesions: no lesions noted Rashes: no rashes noted Wounds: no wounds Neuro: Cranial nerves: Yes Equal, round and reactive pupils present Speech: normal speech Motor exam (neuro): Abnormal motor strength present (Generalized weakness) Extrem: General: edema Other: BLE edema. Not pitting Psych: Mental Status: mental status grossly normal Affect: normal affect Objective Data Vital Signs Vital Signs: Vital Signs - 24 hr 12/28/24 11:59 12/28/24 12:00 12/28/24 12:00 Temperature 98.3 F Pulse Rate 79 74 Respiratory Rate 18 Blood Pressure 126/45 L Pulse Oximetry 94 95 Oxygen Delivery Nasal Cannula Oxygen Flow Rate 3 12/28/24 14:00 12/28/24 14:53 12/28/24 16:00 Temperature 99.1 F Pulse Rate 76 85 Respiratory Rate 12 Blood Pressure 110/45 L Pulse Oximetry 94 91 Oxygen Delivery Nasal Cannula Oxygen Flow Rate 3 12/28/24 16:00 12/28/24 16:00 12/28/24 18:00 Temperature Pulse Rate 87 85 Respiratory Rate Blood Pressure Pulse Oximetry 90 Oxygen Delivery Nasal Cannula Oxygen Flow Rate 3 12/28/24 20:00 12/28/24 20:00 12/28/24 20:00 Temperature 98.2 F Pulse Rate 84 85 85 Respiratory Rate 18 90 H Blood Pressure 118/31 L Pulse Oximetry 92 95 Oxygen Delivery Nasal Cannula Oxygen Flow Rate 4 12/28/24 20:14 12/28/24 20:20 12/28/24 20:29 Temperature Pulse Rate 84 87 Respiratory Rate 20 20 Blood Pressure Pulse Oximetry 95 Oxygen Delivery Nasal Cannula Oxygen Flow Rate 3 12/28/24 20:58 12/28/24 21:10 12/28/24 21:39 Temperature Pulse Rate 88 161 H 86 Respiratory Rate Blood Pressure Pulse Oximetry Oxygen Delivery Oxygen Flow Rate 12/28/24 21:48 12/29/24 00:00 12/29/24 00:00 Temperature 98.5 F Pulse Rate 87 71 70 Respiratory Rate 22 H 18 18 Blood Pressure 105/65 Pulse Oximetry 97 98 96 Oxygen Delivery BiPAP Oxygen Flow Rate 12/29/24 00:00 12/29/24 01:43 12/29/24 04:00 Temperature Pulse Rate 70 66 68 Respiratory Rate 18 Blood Pressure Pulse Oximetry 98 Oxygen Delivery BiPAP Oxygen Flow Rate 12/29/24 04:00 12/29/24 04:00 12/29/24 06:00 Temperature 97.8 F Pulse Rate 68 64 72 Respiratory Rate 17 Blood Pressure 128/92 H Pulse Oximetry 98 Oxygen Delivery Oxygen Flow Rate 12/29/24 07:51 12/29/24 08:24 12/29/24 09:39 Temperature 98.2 F Pulse Rate 64 63 Respiratory Rate 12 Blood Pressure 127/48 L Pulse Oximetry 93 92 Oxygen Delivery Nasal Cannula Oxygen Flow Rate 4 12/29/24 09:40 Temperature Pulse Rate 64 Respiratory Rate Blood Pressure Pulse Oximetry Oxygen Delivery Oxygen Flow Rate Intake/Output Intake/Output: Intake & Output 12/26/24 12/27/24 12/28/24 12/29/24 23:59 23:59 23:59 23:59 Intake Total 1030 710 Balance 1030 710 Meds/Results Medications: Active Medications Generic Name Dose Route Start Last Admin Trade Name Freq PRN Reason Stop Dose Admin Amiodarone HCl 200 mg 12/29/24 09:00 12/29/24 09:39 Amiodarone Hcl 200 Mg Tablet PO 200 mg DAILY YODIT Administration Amitriptyline HCl 10 mg 12/28/24 21:00 12/28/24 20:56 Amitriptyline Hcl 10 Mg Tablet PO 10 mg HS YODIT Administration Duloxetine HCl 40 mg 12/28/24 17:00 12/29/24 09:40 Duloxetine Hcl 20 Mg Capsule.Dr PO 40 mg BID YODIT Administration Escitalopram Oxalate 20 mg 12/28/24 15:30 12/29/24 09:40 Escitalopram Oxalate 10 Mg Tablet PO 20 mg DAILY YODIT Administration Ferrous Sulfate 325 mg 12/28/24 17:00 12/29/24 09:40 Ferrous Sulfate [address] BY MOUTH 325 mg BID YODIT Administration Furosemide 20 mg 12/28/24 17:00 12/29/24 09:40 Furosemide 20 Mg Tablet PO 20 mg BID YODIT Administration Guaifenesin 1,200 mg 12/28/24 21:00 12/29/24 09:39 Guaifenesin 12 Hr 600 Mg Tabcr PO 1,200 mg Q12HR YODIT Administration Ipratropium [place] 0.5 mg 12/29/24 12:00 Ipratropium Br 0.02% Inh Soln 0.5 Mg/2.5 Ml Vial INHALATION Q4HRT [facility] Levofloxacin 750 mg 12/28/24 06:00 12/28/24 06:11 Levofloxacin 750 Mg Tablet PO 750 mg Q48H YODIT Administration Magnesium Hydroxide 30 ml 12/28/24 14:40 Magnesium Hydroxide Susp 30 Ml Udc PO HS PRN Constipation Melatonin 5 mg 12/28/24 14:40 Melatonin 5 Mg Tablet PO HS PRN Insomnia Methylprednisolone Sodium Succinate 20 mg 12/28/24 18:00 12/29/24 05:39 Methylprednisolone Sod Succ 125 Mg Vial IV PUSH 20 mg Q6HR YODIT Administration Metoprolol Tartrate 100 mg 12/28/24 21:00 12/29/24 09:40 Metoprolol Tartrate 50 Mg Tab PO 100 mg Q12HR YODIT Administration Montelukast Sodium 10 mg 12/29/24 09:00 12/29/24 09:39 Montelukast Sodium 10 Mg Tablet PO 10 mg DAILY YODIT Administration Pantoprazole Sodium 40 mg 12/28/24 21:00 12/29/24 09:39 Pantoprazole 40 Mg Tablet PO 40 mg Q12HR YODIT Administration Quetiapine Fumarate 25 mg 12/28/24 21:00 12/28/24 20:57 Quetiapine Fumarate 25 Mg Tablet PO 25 mg HS YODIT Administration Ropinirole HCl 4 mg 12/28/24 21:00 12/28/24 20:56 Ropinirole Hcl 1 Mg Tablet PO 4 mg HS YODIT Administration Topiramate 200 mg 12/28/24 21:00 12/29/24 09:39 Topiramate 100 Mg Tablet PO 200 mg Q12HR YODIT Administration Trazodone HCl 50 mg 12/28/24 21:00 12/28/24 20:59 Trazodone Hcl 50 Mg Tablet PO 50 mg HS YODIT Administration Radiology Results: ITS Impressions Chest X-Ray 12/28/24 05:22 Impression: Probable chronic interstitial disease with basilar predominance. Chest CT 12/28/24 15:42 IMPRESSION: No cross-sectional imaging evidence to suggest the presence of pneumonia. Bibasilar atelectasis, unchanged from a recent radiograph, as detailed above.. Labs Labs: Laboratory Results - last 24 hr 12/28/24 12/29/24 10:52 04:12 WBC 15.2 H RBC 3.66 L Hgb 9.7 L Hct 33.2 L MCV 90.7 MCH 26.5 MCHC 29.2 L RDW 14.6 H Plt Count 181 MPV 9.9 Immature Gran % (Auto) 1.2 H Neut % (Auto) 91.4 H Lymph % (Auto) 4.8 L [place] % (Auto) 2.5 L Eos % (Auto) 0.0 Baso % (Auto) 0.1 L Lymph # (Auto) 0.73 L [place] # (Auto) 0.4 Eos # (Auto) 0.0 Baso # (Auto) 0.0 Abs Immat Gran (auto) 0.19 H Absolute Neuts (auto) 13.9 H Absolute Nucleated RBC 0.000 Band Neutrophils % 0 Nucleated RBC % 0.0 Platelet Estimate Adequate Anisocytosis 1+ Ovalocytes 1+ Schistocytes None seen Sodium 136 L Potassium 4.5 Chloride 91 L Carbon Dioxide 39 H Anion Gap 6 BUN 35 H D Creatinine 1.61 H Estim Creat Clear Calc 40 Estimated GFR 32 L Glucose 206 H Calcium 9.6 Magnesium 2.0 Total Bilirubin 0.2 AST 10 L ALT 12 Alkaline Phosphatase 93 Total Protein 7.0 Albumin 3.6 Procalcitonin 0.1 Influenza A (RT-PCR) Negative Influenza B (RT-PCR) Negative RSV (RT-PCR) Negative SARS-CoV-2 RNA (RT-PCR) Negative Quality VTE Prophylaxis VTE prophylaxis: mechanical ordered
[2024-12-29] MEDS: IPRATROPIUM BR 0.02% INH SOLN 0.5 MG/2.5 ML VIAL INHALATION ×4 (11:57→23:17)
[2024-12-29] MEDS: rOPINIRole HCL 1 MG TABLET 4 MG PO (20:23)
[2024-12-29] MEDS: traZODone HCL 50 MG TABLET PO (20:24)
[2024-12-29] MEDS: QUEtiapine FUMARATE 25 MG TABLET PO (20:24)
[2024-12-29] MEDS: AMITRIPTYLINE HCL 10 MG TABLET PO (20:24)
[2024-12-29] MEDS: MELATONIN 5 MG TABLET PO (20:29)
[2024-12-30] VITALS (21 sets, daily range): BP systolic 131–148; BP diastolic 52–94; PULSE 56–92; RESP 17–21; TEMP 36.1–36.4; O2SAT 88–98
[2024-12-30] MEDS: methylPREDNISolone SOD SUCC 125 MG VIAL 20 MG IV PUSH ×2 (00:43→06:02)
[2024-12-30] MEDS: IPRATROPIUM BR 0.02% INH SOLN 0.5 MG/2.5 ML VIAL INHALATION ×4 (03:07→19:40)
[2024-12-30] MEDS: levoFLOXacin 750 MG TABLET PO (05:57)
--- NOTE | 2024-12-30 08:14 | P.PNIM_ITS ---
Progress Note: A&P Assessment and Plan (1) Acute exacerbation of chronic obstructive pulmonary disease: Code(s): J44.1 - Chronic obstructive pulmonary disease with (acute) exacerbation Status: Acute Assessment and Plan: * Pulmonology following * IV Steroids 20 mg q 6h * Levaquin 750 mg daily * Continue BiPap to blow off CO2 * Trend labs and VS * Awaiting results of CXR * duonebs prn * urine for strep pneumo, mycoplasma and legionella ordered * will order chest physio therapy * continue mucine * * 12/30- prednisone 40 mg po daily per pulm. day 3 of steroids today (2) Iron deficiency anemia: Code(s): D50.9 - Iron deficiency anemia, unspecified Status: Chronic Assessment and Plan: * Continue home meds once they are confirmed. * Monitor and trend CBC. (3) Atrial fibrillation: Code(s): I48.91 - Unspecified atrial fibrillation Status: Chronic Assessment and Plan: * Telemetry * Continue home meds once confirmed. * NSR. (4) Acute on chronic congestive heart failure: Code(s): I50.9 - Heart failure, unspecified Status: Chronic Assessment and Plan: * Chronic heart failure * Last ECHO showing normal LVSF w/EF of 60-65% on 12/02/24. * Daily weight * Accurate Intake and output (5) Insomnia: Code(s): G47.00 - Insomnia, unspecified Status: Acute Assessment and Plan: insomnia- melatonin doesnot help much added trazadone 12/29- helped avoid atarax Time Spent With Patient Time with patient: 25 - 35 minutes Subjective Date/time seen: 12/30/24 08:14 Interval history: 64 year old female pt with PMH of A-fib off of Eliquis for two years secondary to abdominal rectal sheath hematoma, COPD, Diastolic dysfunction, anemia, GERD, CVA and HF came to the ER from home with complaints of feeling fatigued and dyspneic. She was recently admitted and was just discharged on 12/08/24 w/acute COPD exacerbation. She was determined to need 5L oxygen per nocturnal oximetry and completed abx and discharged to follow up with [employer] as outpt as well as Cardiology as outpt. Patient is a former smoker that quit 2021, she does not use alcohol or any illicit drugs. Patient was recently treated with steroids at the time of discharge. She denies any chest pain but is very fatigued and difficult to awaken. She was requiring BiPAP to maintain her saturations. 12/29/2024: Pt is seen and examined. Patient states she had a bad night and she is not feeling much better. She is c/o cough. She is on 4 L nasal cannula saturations 94%. Patient tempted to wear the full face mask with the AVAPS settings -managed per pulm, but she could not sleep well. she is willing to try it again tonight. Patient received a Xopenex treatment and had a heart rate 160 that decreased on its own. Pt is seen and examined today. she is calm and comfortable. no pain. feels like it is hard for her to bring phlegm up. HR had been controlled and stable. 12/30- pt is seen and examine. she slept better and her breathing is better as well. easier to cough. remains on oxygen. Review of Systems Review of Systems: All systems reviewed & are unremarkable except as noted in HPI and below Exam Const: General: comfortable Other: Obese, somnolent HENMT: Face/Nose/Sinus: Normal nares present Mouth: Yes dry mucous membranes Eyes: General: appearance normal, both eyes and all related structures Sclera: sclerae normal Pupils: Equal, round and reactive pupils present EOM: EOMs intact bilaterally Neck: Neck: supple and no JVD Lymphatic: lymphadenopathy not noted Chest: Other: not tender Resp: Effort & Inspection: abnormal respiratory effort (Increased effort) Auscultation: diminished lung sounds bilateral (Bases) Other: scattered wheezing Cardio: Rate: regular rate Rhythm: regular rhythm Heart sounds: no gallops, no murmurs and no rubs GI: Inspection: non-distended Auscultation: normal bowel sounds Skin: General skin exam: No normal color (pale), No lesion and No rashes Lesions: no lesions noted Rashes: no rashes noted Wounds: no wounds Neuro: Cranial nerves: Yes Equal, round and reactive pupils present Speech: normal speech Motor exam (neuro): Abnormal motor strength present (Generalized weakness) Extrem: General: edema Other: BLE edema. Not pitting Psych: Mental Status: mental status grossly normal Affect: normal affect Objective Data Vital Signs Vital Signs: Vital Signs - 24 hr 12/29/24 08:24 12/29/24 09:39 12/29/24 09:40 Temperature Pulse Rate 63 64 Respiratory Rate Blood Pressure Pulse Oximetry 92 Oxygen Delivery Nasal Cannula Oxygen Flow Rate 4 Fraction of Inspired Oxygen 12/29/24 10:00 12/29/24 11:58 12/29/24 12:00 Temperature 98.7 F Pulse Rate 62 60 64 Respiratory Rate 17 20 Blood Pressure 125/44 L Pulse Oximetry 100 Oxygen Delivery Oxygen Flow Rate Fraction of Inspired Oxygen 12/29/24 12:00 12/29/24 12:00 12/29/24 12:09 Temperature Pulse Rate 65 67 Respiratory Rate 20 Blood Pressure Pulse Oximetry 97 Oxygen Delivery Nasal Cannula Oxygen Flow Rate 3 Fraction of Inspired Oxygen 12/29/24 14:00 12/29/24 16:00 12/29/24 17:28 Temperature 97.7 F Pulse Rate 59 L 60 71 Respiratory Rate 18 20 Blood Pressure 116/48 L Pulse Oximetry 97 Oxygen Delivery Oxygen Flow Rate Fraction of Inspired Oxygen 12/29/24 17:38 12/29/24 20:00 12/29/24 20:17 Temperature 97.8 F Pulse Rate 80 71 Respiratory Rate 20 Blood Pressure 110/44 L Pulse Oximetry 99 93 Oxygen Delivery Nasal Cannula Oxygen Flow Rate 4 Fraction of Inspired Oxygen 12/29/24 20:23 12/29/24 20:43 12/29/24 20:44 Temperature Pulse Rate 63 63 63 Respiratory Rate 20 20 Blood Pressure Pulse Oximetry 98 Oxygen Delivery Nasal Cannula Oxygen Flow Rate 4 Fraction of Inspired Oxygen 36 12/29/24 20:56 12/29/24 22:49 12/29/24 23:07 Temperature 98.2 F Pulse Rate 62 60 56 L Respiratory Rate 18 30 H 22 H Blood Pressure 108/47 L Pulse Oximetry 99 98 98 Oxygen Delivery BiPAP BiPAP Oxygen Flow Rate Fraction of Inspired Oxygen 12/29/24 23:17 12/30/24 03:08 12/30/24 03:10 Temperature Pulse Rate 60 92 56 L Respiratory Rate 17 17 18 Blood Pressure Pulse Oximetry 98 Oxygen Delivery BiPAP Oxygen Flow Rate Fraction of Inspired Oxygen 12/30/24 07:26 12/30/24 08:00 12/30/24 08:00 Temperature 97.0 F L Pulse Rate 62 68 Respiratory Rate 18 20 Blood Pressure 135/52 L Pulse Oximetry 98 93 Oxygen Delivery Nasal Cannula Oxygen Flow Rate 4 Fraction of Inspired Oxygen 12/30/24 08:11 Temperature Pulse Rate 85 Respiratory Rate 20 Blood Pressure Pulse Oximetry Oxygen Delivery Oxygen Flow Rate Fraction of Inspired Oxygen Intake/Output Intake/Output: Intake & Output 12/27/24 12/28/24 12/29/24 12/30/24 23:59 23:59 23:59 23:59 Intake Total 1030 1490 Output Total 750 400 Balance 1030 740 -400 Meds/Results Medications: Active Medications Generic Name Dose Route Start Last Admin Trade Name Freq PRN Reason Stop Dose Admin Amiodarone HCl 200 mg 12/29/24 09:00 12/29/24 09:39 Amiodarone Hcl 200 Mg Tablet PO 200 mg DAILY YODIT Administration Amitriptyline HCl 10 mg 12/28/24 21:00 12/29/24 20:24 Amitriptyline Hcl 10 Mg Tablet PO 10 mg HS YODIT Administration Duloxetine HCl 40 mg 12/28/24 17:00 12/29/24 16:58 Duloxetine Hcl 20 Mg Capsule.Dr PO 40 mg BID YODIT Administration Escitalopram Oxalate 20 mg 12/28/24 15:30 12/29/24 09:40 Escitalopram Oxalate 10 Mg Tablet PO 20 mg DAILY YODIT Administration Ferrous Sulfate 325 mg 12/28/24 17:00 12/29/24 16:57 Ferrous Sulfate [address] BY MOUTH 325 mg BID YODIT Administration Furosemide 20 mg 12/28/24 17:00 12/29/24 16:58 Furosemide 20 Mg Tablet PO 20 mg BID YODIT Administration Guaifenesin 1,200 mg 12/28/24 21:00 12/29/24 20:24 Guaifenesin 12 Hr 600 Mg Tabcr PO 1,200 mg Q12HR YODIT Administration Ipratropium [place] 0.5 mg 12/29/24 12:00 12/30/24 07:54 Ipratropium Br 0.02% Inh Soln 0.5 Mg/2.5 Ml Vial INHALATION 0.5 mg Q4HRT YODIT Administration Levofloxacin 750 mg 12/28/24 06:00 12/30/24 05:57 Levofloxacin 750 Mg Tablet PO 750 mg Q48H YODIT Administration Magnesium Hydroxide 30 ml 12/28/24 14:40 Magnesium Hydroxide Susp 30 Ml Udc PO HS PRN Constipation Melatonin 5 mg 12/28/24 14:40 12/29/24 20:29 Melatonin 5 Mg Tablet PO 5 mg HS PRN Administration Insomnia Methylprednisolone Sodium Succinate 20 mg 12/28/24 18:00 12/30/24 06:02 Methylprednisolone Sod Succ 125 Mg Vial IV PUSH 20 mg Q6HR YODIT Administration Metoprolol Tartrate 100 mg 12/28/24 21:00 12/29/24 20:23 Metoprolol Tartrate 50 Mg Tab PO 100 mg Q12HR YODIT Administration Montelukast Sodium 10 mg 12/29/24 09:00 12/29/24 09:39 Montelukast Sodium 10 Mg Tablet PO 10 mg DAILY YODIT Administration Pantoprazole Sodium 40 mg 12/28/24 21:00 12/29/24 20:24 Pantoprazole 40 Mg Tablet PO 40 mg Q12HR YODIT Administration Quetiapine Fumarate 25 mg 12/28/24 21:00 12/29/24 20:24 Quetiapine Fumarate 25 Mg Tablet PO 25 mg HS YODIT Administration Ropinirole HCl 4 mg 12/28/24 21:00 12/29/24 20:23 Ropinirole Hcl 1 Mg Tablet PO 4 mg HS YODIT Administration Topiramate 200 mg 12/28/24 21:00 12/29/24 20:22 Topiramate 100 Mg Tablet PO 200 mg Q12HR YODIT Administration Trazodone HCl 50 mg 12/28/24 21:00 12/29/24 20:24 Trazodone Hcl 50 Mg Tablet PO 50 mg HS YODIT Administration Trazodone HCl 50 mg 12/29/24 15:16 Trazodone Hcl 50 Mg Tablet PO HS PRN Insomnia Radiology Results: ITS Impressions Chest X-Ray 12/28/24 05:22 Impression: Probable chronic interstitial disease with basilar predominance. Chest CT 12/28/24 15:42 IMPRESSION: No cross-sectional imaging evidence to suggest the presence of pneumonia. Bibasilar atelectasis, unchanged from a recent radiograph, as detailed above.. Labs Labs: Laboratory Results - last 24 hr 12/29/24 04:12 Procalcitonin 0.1 Quality VTE Prophylaxis VTE prophylaxis: mechanical ordered
[2024-12-30 08:41] LABS: Hematocrit 34.6 % (37.0-47.0); Mean Corpuscular HGB Conc 28.9 g/dl (32-36); Mean Corpuscular Hemoglobin 26.5 pg (26-34); Mean Corpuscular Volume 91.5 fl (80-100); Mean Platelet Volume 9.8 fl (7.4-10.4); Platelet Count Result 216 k/mm3 (150-375); Red Blood Count 3.78 M/mm3 (4.2-5.4); Red Cell Distribution Width 14.7 % (11.5-14.5); White Blood Count 15.3 K/mm3 (4.5-10.0)
[2024-12-30] MEDS: FUROSEMIDE 20 MG TABLET PO ×2 (08:48→17:26)
[2024-12-30] MEDS: METOPROLOL TARTRATE 50 MG TAB 100 MG PO ×2 (08:48→21:22)
[2024-12-30] MEDS: guaiFENesin 12 HR 600 MG TABCR 1200 MG PO ×2 (08:49→21:20)
[2024-12-30] MEDS: FERROUS SULFATE 325 MG TABLET DR BY MOUTH ×2 (08:49→17:26)
[2024-12-30] MEDS: ESCITALOPRAM OXALATE 10 MG TABLET 20 MG PO (08:49)
[2024-12-30] MEDS: PANTOPRAZOLE 40 MG TABLET PO ×2 (08:49→21:21)
[2024-12-30] MEDS: AMIODARONE HCL 200 MG TABLET PO (08:49)
[2024-12-30] MEDS: TOPIRAMATE 100 MG TABLET 200 MG PO ×2 (08:49→21:21)
[2024-12-30] MEDS: MONTELUKAST SODIUM 10 MG TABLET PO (08:49)
[2024-12-30] MEDS: DULoxetine HCL 20 MG CAPSULE.DR 40 MG PO ×2 (08:50→17:26)
--- NOTE | 2024-12-30 08:52 | P.PNPL_ITS ---
Progress Note: A&P Assessment and Plan (1) Chronic obstructive pulmonary disease: Code(s): J44.9 - Chronic obstructive pulmonary disease, unspecified Status: Chronic Assessment and Plan: Regarding her COPD, 50 pack year tobacco use, quit 08/23/2022, alpha 1 anti trypsin genotype MZ, alpha 1 anti trypsin level 134, normal. The patient has been on oxygen for the last 5 years. I have no PFTs. She is using 5 L at rest with home saturations 92-96%. First CT scan in our system is from 08/27/2022 shows mild apical predominant centrilobular emphysema. Repeat CT angiogram of the chest on 12/02/2024 demonstrates mild apical predominant centrilobular emphysema. Patient is maintained on trelegy inhaler but she does not use a because of the taste. Patient takes Trelegy 100, montelukast 10 and albuterol p.r.n.. Patient tells me she wheezes every day when she takes rescue albuterol at home it relieves her wheezing for 1-2 minutes. 12/01/2024: White blood cell count 14.8, eosinophils 0.6%= 89 per micro L. patient presents with shortness of breath, no change in phlegm production or color, worsening shortness of breath and hypoxemic respiratory failure. Patient treated with bronchodilators, steroids and BiPAP. 12/28/24: The patient tells me that the day after she left the hospital she started getting worse with fatigue and then worsening oxygenation about 5 days ago. On her prescribed 2 L her saturations were in the 80s and then as low as 79%. She denied fever, chills, rigors. She had a dry cough with no phlegm and no hemoptysis. Currently says she is improved and breathing 50% back to her normal but she feels still feels tired and short of breath. The patient told me she had improved and could come off of the mask and she was placed on 3 L nasal cannula with saturations 91% Plan: Will continue treatment for possible COPD exacerbation. Patient has wheezing but has wheezing every day. I will decrease her Solu-Medrol to 20 mg IV q.6 hours. Continue DuoNebs q.6 hours. Patient is on levofloxacin for possible pneumonia and bronchitis. I will obtain a D-dimer and if positive will get a CT angiogram of the chest. If negative will get a CT scan of the chest looking for focal infiltrates consistent with a pneumonia. Goal saturation 90- 94%, Adjust oxygen accordingly. Will add guaifenesin 1200 mg p.o. b.i.d. Later in the day patient had a CT scan of the chest with moderate apical predominant centrilobular emphysema and bibasilar atelectasis with no evidence of pneumonia. 12/29/2024: Patient states she had a bad night and his breathing worse today. Her cough is increased with no phlegm and no blood. She is afebrile. White blood cell count 15.2, creatinine 1.61. Currently patient is on 4 L nasal cannula saturations 94%. Patient received a Xopenex treatment and had a heart rate 160 that decreased on its own and required no medical intervention. Plan: I will continue Solu-Medrol 20 mg IV q.6. I will discontinue her levalbuterol due to the tachy arrhythmia increase her ipratropium nebulizers to q.4 hours. No evidence of pneumonia. Will treat for tracheobronchitis with Levaquin 750 mg p.o. q.48h, day 2. Continue guaifenesin 12 50 b.i.d., montelukast 10. Patient is on Lasix 20 p.o. b.i.d.. 12/30/24: Patient tells me she is having a better day today. She says that her breathing is 75% back to her normal. Her cough is improved but increased from baseline. She has no phlegm and no hemoptysis. She is afebrile. Her weight today is 112.7 kg. Patient wore the hospital noninvasive ventilator with the AVAPS mode and said that she slept well. Plan: I will change the patient to prednisone 40 mg p.o. q.day, Day 3 of steroids. I will continue ipratropium nebulizers q.4 hours. Continue montelukast 10 q day and guaifenesin 1200 p.o. b.i.d.. continue Levaquin for tracheobronchitis, day 3. Encouraged her out of bed to chair, ambulation as tolerated, physical therapy has been ordered on 12/29/2024. Respiratory path ogen panel, urine Legionella, urine pneumococcal antigen pending. pulmonary inpatient services will resume on 01/02/2025, call with questions. Discussed with Nicky Rock. (2) Chronic hypercapnic respiratory failure: Code(s): J96.12 - Chronic respiratory failure with hypercapnia Status: Acute Assessment and Plan: Last admission 12/02/2024 to 12/08/2024) patient presented with hypercarbic respiratory failure. After she improved with treatment for COPD exacerbation and fluid overload she remained with hypercarbia but not sufficient to qualify her for home BiPAP or NIV. Her blood gas was 7.39/48/97 so she did not qualify for BiPAP or noninvasive ventilation. 12/28/2024: She again presents with shortness of breath, hypoxemic and hypercarbic respiratory failure. Current venous blood gas listed as room air 7.33/72/ 43. The patient told me she had improved and could come off of the mask and she was placed on 3 L nasal cannula with saturations 91% 12/28/24: Currently the patient is on BiPAP rate of 18, pressures 14/8 with 40% FiO2. Patient told me these settings were uncomfortable for her and I changed them to noninvasive ventilation with the AVAPS mode rate of 14, tidal volume 500, EPAP 5, minimal inspiratory pressure 6, maximal inspiratory pressure 25, inspiratory time 1.0, rise of 1 which is the fastest and 40% FiO2. She said this was more comfortable. The patient told me she had improved and could come off of the mask and she was placed on 3 L nasal cannula with saturations 91%. Plan: noninvasive ventilation with the AVAPS mode p.r.n. during the day. I recommend she wear this tonight. After she has improved will repeat ABG during the day. 12/29/24: Patient attempted to wear the fullface mask with the AVAPS settings as above and she did wear the mask but she could not sleep. plan: Patient says she will try to wear the AVAPS again tonight. I told her if she can not sleep with the mask on that she needs to take the mask off so that she can try to sleep. 12/30/24: Patient wore the hospital noninvasive ventilator with the AVAPS mode and said that she slept well. Plan: Patient tells me she still requires breathing support at night. If the patient qualifies for ventilatory support with a home machine it will need to be BiPAP with no rate. Tonight will place the patient on BiPAP no rate, pressures 15/5 and 28% FiO2 with overnight oximetry and ABG in the morning. Subjective Date/time seen: 12/30/24 08:52 Interval history: 12/28/2024: This is a new pulmonary consult for COPD exacerbation. 64-year-old with a history of AFib off anticoagulation for 2 years secondary to abdominal rectal sheath hematoma, diastolic dysfunction, GERD, HTN, restless legs syndrome, anxiety and COPD with chronic hypoxemic respiratory failure on 5 L at Night and 2 L with rest and activity per home O2 assessment on 12/08/2024. I previously saw the patient as an inpatient on 12/02/2024 when she was admitted for COPD exacerbation. Regarding her COPD, 50 pack year tobacco use, quit 08/23/2022, alpha 1 anti trypsin genotype MZ, alpha 1 anti trypsin level 134, normal. The patient has been on oxygen for the last 5 years. I have no PFTs. She is using 5 L at rest with home saturations 92-96%. First CT scan in our system is from 08/27/2022 shows mild apical predominant centrilobular emphysema. Repeat CT angiogram of the chest on 12/02/2024 demonstrates mild apical predominant centrilobular emphysema. Patient is maintained on trelegy inhaler but she does not use a elder use of the taste. Patient takes Trelegy 100, montelukast 10 and albuterol p.r.n.. Patient tells me she wheezes every day when she takes rescue albuterol at home it relieves her wheezing for 1-2 minutes. 12/01/2024: White blood cell count 14.8, eosinophils 0.6%= 89 per micro L. 12/02/2024 through 12/08/2024:? Presented to the emergency room with COPD exacerbation, hypercarbic and hypoxemic respiratory failure, AFib with RVR, and fluid overload.? Treated with BiPAP, steroids, bronchodilators, antibiotics, and diuretics.? CTA of the chest with no PE, mild apical predominant centrilobular emphysema, ?upper and lower extremity Dopplers negative for DVT.? Echocardiogram with LVEF 60-65%, RV was dilated with normal systolic function.? Left atrium no rmal, right atrium normal, RVSP 27. ?After she improved clinically on 12/06/2024: ABG on 5 L nasal cannula pH 7.39/48/97. ?Patient improved and was discharged on 12/08/24 on trelegy 100, rescue albuterol, montelukast 10, guaifenesin 600 b.i.d. p.r.n. congestion, no Lasix, amiodarone 200 b.i.d., metoprolol 100 q.12, she had completed 5 days of steroids in house and I did not recommend a discharge taper, however, the hospitalist discharge her on a 15 day prednisone taper. Required 2 L oxygen at rest and with activity per home O2 assessment and per overnight oximetry required 5 L NC when she naps or sleeps. ?12/08/24: creatinine 1.68. Her weight is 120.8 kg.? 12/28/2024: Presented to the emergency room with shortness of breath. blood pressure 136/117, heart rate 76, nasal cannula saturation 93%. Patient had wheezing throughout all lung paul. White blood cell count 13.4 with eosinophils 1.8%=241/ul. creatinine 1.34, serum bicarbonate 37, BNP 563. Venous blood gas listed as room air 7.33/72/ 43. patient placed on BiPAP, treated with bronchodilators, received IV steroids per EMS, lasix 40 IV. 12/28/24: Currently the patient is on BiPAP rate of 18, pressures 14/8 with 40% FiO2. Patient told me these settings were uncomfortable for her and I changed them to noninvasive ventilation with the AVAPS mode rate of 14, tidal volume 500, EPAP 5, minimal inspiratory pressure 6, maximal inspiratory pressure 25, inspiratory time 1.0, rise of 1 which is the fastest and 40% FiO2. She said this was more comfortable. The patient told me she had improved and could come off of the mask and she was placed on 3 L nasal cannula with saturations 91% The patient tells me that the day after she left the hospital she started getting worse with fatigue and then worsening oxygenation about 5 days ago. On her prescribed 2 L her saturations were in the 80s and then as low as 79%. She denied fever, chills, rigors. She had a dry cough with no phlegm and no hemoptysis. Currently says she is improved and breathing 50% back to her normal but she feels still feels tired and short of breath. Later in the day patient had a CT scan of the chest with moderate apical predominant centrilobular emphysema and bibasilar atelectasis with no evidence of pneumonia. 12/29/2024: Patient states she had a bad night and his breathing worse today. Her cough is increased with no phlegm and no blood. She is afebrile. White blood cell count 15.2, creatinine 1.61. Currently patient is on 4 L nasal cannula saturations 94%. Patient tempted to wear the fullface mask with the AVAPS settings as above and she did wear the mask but she could not sleep. Patient received a Xopenex treatment and had a heart rate 160 that decreased on its own and required no medical intervention. 12/30/24: Patient tells me she is having a better day today. She says that her breathing is 75% back to her normal. Her cough is improved but increased from baseline. She has no phlegm and no hemoptysis. She is afebrile. Her weight today is 112.7 kg. Patient wore the hospital noninvasive ventilator with the AVAPS mode and said that she slept well. DATA: 12/28/24: CT chest CLINICAL INDICATION: Pneumonia suspected clinically COMPARISON: Reference is made to plain film evaluation of the chest, performed approximately 12 hours earlier and dating back to 12/05/2024. Reference is also made to a CT angiogram of the chest dated 10/20/2022 FINDINGS/OBSERVATIONS: Lung: bibasilar atelectasis, unchanged from chest radiograph. The remainder the lungs are clear. HEART: The heart is borderline enlarged, without pericardial effusion. MEDIASTINUM: Redemonstration of a large left thyroid nodule, increased in size from 2022 examination. No pathologically enlarged or morphologically suspicious lymph nodes are identified within the mediastinum, bilateral axilla, within the soft tissues of the anterior chest wall. SOFT TISSUES OF THE CHEST: Unremarkable. BONES OF THE CHEST: No acute fracture. No lytic or blastic lesions are identified. IMPRESSION: No cross-sectional imaging evidence to suggest the presence of pneumonia. Bibasilar atelectasis, unchanged from a recent radiograph, as detailed above.. 12/08/2024: Home O2 assessment: Rest room air saturation 87%. Rest nasal cannula 1 L saturation 88%. Rest nasal cannula saturation 93%. Exercise nasal cannula 2 L saturation 94%. Patient requires 2 L with rest and with activity. 12/07/24: Patient had an overnight oximetry on 5 L nasal cannula with recording duration of 6 hours and 58 minutes. Average saturation 98%. Low saturation 95%. Time with saturation less than or equal to 88% was 0 minutes. Oxygen desat uration index 0. 12/06/2024: ABG on 5 L nasal cannula pH 7.39/48/97. ? 12/02/2024: Alpha 1 anti trypsin genotype ruthie MZ. 12/02/2024: Alpha 1 anti trypsin level 135, normal 83-199. 12/02/24: CTA chest PE protocol History: 64 years Female with . R/O PE . Findings: PULMONARY ARTERIES: No pulmonary embolus. VISUALIZED THORACIC INLET: Left thyroid nodule is noted. Ultrasound evaluation advised. MEDIASTINUM: Aorta/coronary arteries: Mild atheromatous disease. Heart/other: The heart is not enlarged. Lymph nodes: No mediastinal or hilar adenopathy. Precarinal lymph node measuring 1.6 cm noted. LUNGS: Atelectasis versus pneumonia seen in the right lung base inferiorly. Minimal atelectasis versus pneumonia in the left lung base is also noted. No pulmonary nodules or masses. No effusions. No pneumothorax. VISUALIZED UPPER abdomen: the visualized upper abdomen is normal. MUSCULOSKELETAL: Soft tissues: The superficial soft tissues are normal. Bones: Age appropriate degenerative changes of the spine. IMPRESSION: 1. No pulmonary embolism. 2. Bilateral basal atelectasis versus pneumonia. Clinical correlation advised. 12/02/2024: Echo Summary 1. The left ventricle is normal in size and systolic function. The left ventricular ejection fraction visually estimated to be 60-60%. 2. The right ventricle is dilated with normal systolic function. 3. There are no significant valvular abnormalities. 4. Technically difficult study. Left Ventricle The left ventricle is normal in size and systolic function. The left ventricular ejection fraction visually estimated to be 60-60%. Diastolic dysfunction is present. Right Ventricle The right ventricle is dilated with normal systolic function. Left Atria The left atrium is normal size. Right Atria The right atrium is normal size. RVSP 27 12/17/2023: CT Scan of the Chest without Contrast: Clinical Indication: Lung cancer screening, nicotine dependence COMPARISON: 04/06/2023 Findings: Stable enlarged left thyroid lobe. There is no evidence of any significant mediastinal, hilar or axillary lymphadenopathy. Atherosclerotic calcifications of the aorta are present. There is no evidence of pleural or pericardial effusion. There is irregular airspace opacity in the posterior right lower lobe, improved from prior exam, likely representing postinflammatory change, as there is a previous more extensive area of consolidation in this location. Mild emphysema. Images through the upper abdomen reveal no abnormalities. Impression: Lung RADS 2: Benign appearance. 12 month follow-up screening CT advised. 09/10/2022: Echo Summary 1. Technically difficult study with limited views. Regional wall motion assessment limited due to poor endomyocardial border definition despite definity contrast enhancement. 2. Left ventricular chamber dimension is normal. 3. Left ventricular systolic function is normal, estimated at 65-70%. 4. There is mildly increased left ventricular wall thickness. 5. Right ventricular chamber dimension is normal. 6. Right ventricular systolic function is moderately reduced. TAPSE 1.3. 7. There is trace tricuspid valve regurgitation. 8. Mild pulmonary hypertension, estimated pulmonary arterial systolic pressure is 37 mmHg. 9. Normal inferior vena cava with <50% collapse upon inspiration consistent with elevated right atrial pressure, 10 mmHg. 08/28/2022: Summary 1. Left ventricular chamber dimension is normal. 2. Left ventricular systolic function is normal, estimated at 60-65%. 3. The left ventricular diastolic function is grade I diastolic dysfunction. 4. Right ventricular chamber dimension is moderately enlarged. 5. Right ventricular systolic function is normal. 6. There is moderate tricuspid valve regurgitation, which may be underestimated due to the eccentricity of the jet. 7. Dilated inferior vena cava with no collapse upon inspiration consistent with elevated right atrial pressure, 15 mmHg. 8. Pulmonary hypertension with an estimated PASP of 59mmHg. Right Ventricle Right ventricular chamber dimension is moderately enlarged. Right ventricular systolic function is normal. Right Atria Right atrial chamber dimension is normal. Atrial Septum Intact interatrial septum visualized by color flow imaging. 08/27/2022: EXAMINATION: CT chest high resolution wo co DATE: 08/27/2022 16:07 INDICATION: respiratory failure TECHNIQUE: Computed tomography (CT) of the chest was performed without intravenous contrast. Automated exposure control and iterative reconstruction technique were employed. The dose-length product was 818.52 mGy-cm. COMPARISON: X-ray chest 08/27/2022 and CTA chest 07/21/2018. FINDINGS: CHEST: Endotracheal tube terminating 2.5 cm above the maria esther. Thoracic aorta: No significant dilation. Moderate arch calcification. Lung parenchyma and airways: Diffuse tree-in-bud opacities most evident in the right lung. Scattered centrilobular nodular opacities measuring up to 11 mm in the right upper lobe. Mild interlobular septal thickening. Bibasilar dependent opacities likely representing atelectasis. Mild emphysematous change. Thoracic inlet, axillae and chest wall: No thyroid or soft tissue mass. No ax illary lymphadenopathy. Mediastinum: Mediastinal lymphadenopathy. Dilated central pulmonary arteries as can be seen with pulmonary arterial hypertension. Heart and pericardium: Normal heart size. Aortic valve calcification. No pericardial effusion. Coronary artery calcifications: Mild. Pleura: Trace bilateral pleural fluid. Upper abdomen: No significant finding. Thoracic bones: No acute osseous finding in the chest. IMPRESSION: 1. Tree-in-bud opacities as can be seen with atypical infection (including but not limited to: MAC, TB, fungal), ABPA, airways disease, and less likely aspiration. 2. Nodular opacity in right upper lobe should be followed after the appropriate therapy and cessation of symptoms to ensure resolution. 3. Mediastinal lymphadenopathy. 4. Trace bilateral pleural effusions. 5. Mild interstitial edema. Review of Systems Constitutional: Constitutional: Reports no additional constitutional complaints Eyes: Eyes: Reports no additional eye complaints ENT: Reports system reviewed and no additional complaints, except as documented Cardiovascular: Cardiovascular: Reports no additional cardiovascular complaints Respiratory: Respiratory: Reports no additional respiratory complaints Gastrointestinal: Gastrointestinal: Reports no additional gastrointestinal complaints Musculoskeletal: Musculoskeletal: Reports no additional musculoskeletal complaints Neurologic: Reports system reviewed and no additional complaints, except as documented Psychiatric: Psychiatric: Reports no additional psychiatric complaints Endocrine: Endocrine: Reports no additional endocrine complaints Hematologic/Lymphatic: Hematologic/Lymphatic: Reports no additional hematologic/lymphatic complaints Allergic/Immunologic: Allergic/Immunologic: Reports no additional allergic/immunologic complaints Exam Const: General: cooperative, healthy appearing and comfortable Orientation/consciousness: oriented to person, oriented to place and oriented to time HENMT: Head: normal to inspection Ears: hearing grossly normal bilaterally Eyes: General: appearance normal, both eyes and all related structures Neck: Neck: normal visual inspection Chest: Chest palpation & inspection: normal inspection of the chest Resp: Effort & Inspection: normal respiratory effort and able to speak in complete sentences Auscultation: no crackles, no rales, no rhonchi, wheezes and diminished lung sounds Other: Expiratory wheezes Cardio: Jugular venous distension: no JVD GI: Inspection: normal to inspection Skin: General skin exam: normal color Neuro: General: oriented to person, oriented to place and oriented to time Extrem: General: edema Other: Psych: Appearance: grossly normal Objective Data Vital Signs Vital Signs: Vital Signs - 24 hr 12/29/24 09:39 12/29/24 09:40 12/29/24 10:00 Temperature Pulse Rate 63 64 62 Respiratory Rate Blood Pressure Pulse Oximetry Oxygen Delivery Oxygen Flow Rate Fraction of Inspired Oxygen 12/29/24 11:58 12/29/24 12:00 12/29/24 12:00 Temperature 37.1 C Pulse Rate 60 64 Respiratory Rate 17 20 Blood Pressure 125/44 L Pulse Oximetry 100 97 Oxygen Delivery Nasal Cannula Oxygen Flow Rate 3 Fraction of Inspired Oxygen 12/29/24 12:00 12/29/24 12:09 12/29/24 14:00 Temperature Pulse Rate 65 67 59 L Respiratory Rate 20 Blood Pressure Pulse Oximetry Oxygen Delivery Oxygen Flow Rate Fraction of Inspired Oxygen 12/29/24 16:00 12/29/24 17:28 12/29/24 17:38 Temperature 36.5 C Pulse Rate 60 71 80 Respiratory Rate 18 20 20 Blood Pressure 116/48 L Pulse Oximetry 97 Oxygen Delivery Oxygen Flow Rate Fraction of Inspired Oxygen 12/29/24 20:00 12/29/24 20:17 12/29/24 20:23 Temperature 36.6 C Pulse Rate 71 63 Respiratory Rate Blood Pressure 110/44 L Pulse Oximetry 99 93 Oxygen Delivery Nasal Cannula Oxygen Flow Rate 4 Fraction of Inspired Oxygen 12/29/24 20:43 12/29/24 20:44 12/29/24 20:56 Temperature Pulse Rate 63 63 62 Respiratory Rate 20 20 18 Blood Pressure Pulse Oximetry 98 99 Oxygen Delivery Nasal Cannula BiPAP Oxygen Flow Rate 4 Fraction of Inspired Oxygen 36 12/29/24 22:49 12/29/24 23:07 12/29/24 23:17 Temperature 36.8 C Pulse Rate 60 56 L 60 Respiratory Rate 30 H 22 H 17 Blood Pressure 108/47 L Pulse Oximetry 98 98 Oxygen Delivery BiPAP Oxygen Flow Rate Fraction of Inspired Oxygen 12/30/24 03:08 12/30/24 03:10 12/30/24 07:26 Temperature 36.1 C L Pulse Rate 92 56 L 62 Respiratory Rate 17 18 18 Blood Pressure 135/52 L Pulse Oximetry 98 98 Oxygen Delivery BiPAP Oxygen Flow Rate Fraction of Inspired Oxygen 12/30/24 08:00 12/30/24 08:00 12/30/24 08:11 Temperature Pulse Rate 68 85 Respiratory Rate 20 20 Blood Pressure Pulse Oximetry 93 Oxygen Delivery Nasal Cannula Oxygen Flow Rate 4 Fraction of Inspired Oxygen 12/30/24 08:48 12/30/24 08:49 Temperature Pulse Rate 62 62 Respiratory Rate Blood Pressure Pulse Oximetry Oxygen Delivery Oxygen Flow Rate Fraction of Inspired Oxygen Intake/Output Intake/Output: Intake & Output 12/27/24 12/28/24 12/29/24 12/30/24 23:59 23:59 23:59 23:59 Intake Total 1030 1490 360 Output Total 750 400 Balance 1030 740 -40 Meds/Results Medications: Active Medications Generic Name Dose Route Start Last Admin Trade Name Freq PRN Reason Stop Dose Admin Amiodarone HCl 200 mg 12/29/24 09:00 12/30/24 08:49 Amiodarone Hcl 200 Mg Tablet PO 200 mg DAILY YODIT Administration Amitriptyline HCl 10 mg 12/28/24 21:00 12/29/24 20:24 Amitriptyline Hcl 10 Mg Tablet PO 10 mg HS YODIT Administration Duloxetine HCl 40 mg 12/28/24 17:00 12/30/24 08:50 Duloxetine Hcl 20 Mg Capsule.Dr PO 40 mg BID YODIT Administration Escitalopram Oxalate 20 mg 12/28/24 15:30 12/30/24 08:49 Escitalopram Oxalate 10 Mg Tablet PO 20 mg DAILY YODIT Administration Ferrous Sulfate 325 mg 12/28/24 17:00 12/30/24 08:49 Ferrous Sulfate [address] BY MOUTH 325 mg BID YODIT Administration Furosemide 20 mg 12/28/24 17:00 12/30/24 08:48 Furosemide 20 Mg Tablet PO 20 mg BID YODIT Administration Guaifenesin 1,200 mg 12/28/24 21:00 12/30/24 08:49 Guaifenesin 12 Hr 600 Mg Tabcr PO 1,200 mg Q12HR YODIT Administration Ipratropium [place] 0.5 mg 12/29/24 12:00 12/30/24 07:54 Ipratropium Br 0.02% Inh Soln 0.5 Mg/2.5 Ml Vial INHALATION 0.5 mg Q4HRT YODIT Administration Levofloxacin 750 mg 12/28/24 06:00 12/30/24 05:57 Levofloxacin 750 Mg Tablet PO 750 mg Q48H YODIT Administration Magnesium Hydroxide 30 ml 12/28/24 14:40 Magnesium Hydroxide Susp 30 Ml Udc PO HS PRN Constipation Melatonin 5 mg 12/28/24 14:40 12/29/24 20:29 Melatonin 5 Mg Tablet PO 5 mg HS PRN Administration Insomnia Methylprednisolone Sodium Succinate 20 mg 12/28/24 18:00 12/30/24 06:02 Methylprednisolone Sod Succ 125 Mg Vial IV PUSH 20 mg Q6HR YODIT Administration Metoprolol Tartrate 100 mg 12/28/24 21:00 12/30/24 08:48 Metoprolol Tartrate 50 Mg Tab PO 100 mg Q12HR YODIT Administration Montelukast Sodium 10 mg 12/29/24 09:00 12/30/24 08:49 Montelukast Sodium 10 Mg Tablet PO 10 mg DAILY YODIT Administration Pantoprazole Sodium 40 mg 12/28/24 21:00 12/30/24 08:49 Pantoprazole 40 Mg Tablet PO 40 mg Q12HR YODIT Administration Quetiapine Fumarate 25 mg 12/28/24 21:00 12/29/24 20:24 Quetiapine Fumarate 25 Mg Tablet PO 25 mg HS YODIT Administration Ropinirole HCl 4 mg 12/28/24 21:00 12/29/24 20:23 Ropinirole Hcl 1 Mg Tablet PO 4 mg HS YODIT Administration Topiramate 200 mg 12/28/24 21:00 12/30/24 08:49 Topiramate 100 Mg Tablet PO 200 mg Q12HR YODIT Administration Trazodone HCl 50 mg 12/28/24 21:00 12/29/24 20:24 Trazodone Hcl 50 Mg Tablet PO 50 mg HS YODIT Administration Trazodone HCl 50 mg 12/29/24 15:16 Trazodone Hcl 50 Mg Tablet PO HS PRN Insomnia Radiology Results: ITS Impressions Chest X-Ray 12/28/24 05:22 Impression: Probable chronic interstitial disease with basilar predominance. Chest CT 12/28/24 15:42 IMPRESSION: No cross-sectional imaging evidence to suggest the presence of pneumonia. Bibasilar atelectasis, unchanged from a recent radiograph, as detailed above.. Labs Labs: Laboratory Results - last 24 hr 12/30/24 08:35 WBC 15.3 H RBC 3.78 L Hgb 10.0 L Hct 34.6 L MCV 91.5 MCH 26.5 MCHC 28.9 L RDW 14.7 H Plt Count 216 MPV 9.8
[2024-12-30 08:55] LABS: Blood Urea Nitrogen 45 mg/dL (7-17); Calcium 9.4 mg/dL (8.4-10.2); Carbon Dioxide > 40 mmol/L (22-30); Chloride 92 mmol/L (98-107); Estimated CRCL calculation 41 ml/min; Estimated Glomerular Filt Rate 34; Glucose 154 mg/dL (65-110); Potassium 4.5 mmol/L (3.4-5.0); Sodium 137 mmol/L (137-145)
[2024-12-30] MEDS: predniSONE 20 MG TABLET 40 MG PO (11:10)
[2024-12-30 17:43] LABS: Adenovirus DNA Not Detected (Not Detected); Chlamydophila pneumoniae Not Detected (Not Detected); Coronavirus 229E Not Detected (Not Detected); Coronavirus HKU1 Not Detected (Not Detected); Coronavirus NL63 Not Detected (Not Detected); Coronavirus OC43 Not Detected (Not Detected); Human Metapneumovirus Not Detected (Not Detected); Human Parainfluenza Virus 1 Not Detected (Not Detected); Human Parainfluenza Virus 2 Not Detected (Not Detected); Human Parainfluenza Virus 3 Not Detected (Not Detected); Human Parainfluenza Virus 4 Not Detected (Not Detected); Human RSV B Not Detected (Not Detected); Influenza A Not Detected (Not Detected); Influenza B Not Detected (Not Detected); Mycoplasma pneumoniae Not Detected (Not Detected); Rhinovirus/Enterovirus Not Detected (Not Detected)
[2024-12-30] MEDS: rOPINIRole HCL 1 MG TABLET 4 MG PO (21:21)
[2024-12-30] MEDS: AMITRIPTYLINE HCL 10 MG TABLET PO (21:21)
[2024-12-30] MEDS: traZODone HCL 50 MG TABLET PO (21:22)
[2024-12-30] MEDS: QUEtiapine FUMARATE 25 MG TABLET PO (21:22)
[2024-12-30] MEDS: MELATONIN 5 MG TABLET PO (21:23)
[2024-12-31] VITALS (21 sets, daily range): BP systolic 98–122; BP diastolic 42–95; PULSE 51–65; RESP 14–24; TEMP 36.5–36.9; O2SAT 90–96
[2024-12-31] MEDS: IPRATROPIUM BR 0.02% INH SOLN 0.5 MG/2.5 ML VIAL INHALATION ×6 (00:53→21:13)
[2024-12-31 05:24] LABS: Hematocrit 35.6 % (37.0-47.0); Hemoglobin 10.2 g/dL (12.0-15.0); Mean Corpuscular HGB Conc 28.7 g/dl (32-36); Mean Corpuscular Hemoglobin 26.4 pg (26-34); Mean Platelet Volume 9.7 fl (7.4-10.4); Platelet Count Result 233 k/mm3 (150-375); Red Blood Count 3.87 M/mm3 (4.2-5.4); Red Cell Distribution Width 14.7 % (11.5-14.5); White Blood Count 14.5 K/mm3 (4.5-10.0)
[2024-12-31 05:26] LABS: Alveolar/Arterial O2 Gradient < 0.0 mmHg; Base Excess ABG 8.8 mEq/l (+/-2.0); Oxygen Content ABG 15.2 %vol (16.0-22.0); Oxygen Saturation ABG 92.9 % (95.0-100.0); PO2 ABG 69.3 mmHg (80.0-100.0); PO2 FiO2 Ratio Arterial Blood 3.47 %; Total Hemoglobin 11.6 g/dL (12.0-18.0)
[2024-12-31 05:38] LABS: Blood Urea Nitrogen 41 mg/dL (7-17); Calcium 9.4 mg/dL (8.4-10.2); Carbon Dioxide > 40 mmol/L (22-30); Chloride 93 mmol/L (98-107); Estimated CRCL calculation 40 ml/min; Estimated Glomerular Filt Rate 32; Glucose 107 mg/dL (65-110); Potassium 3.7 mmol/L (3.4-5.0); Sodium 138 mmol/L (137-145)
[2024-12-31 05:51] LABS: Device BIPAP; Fractional Inspired Oxygen 28 %; Modified Allen's Test Pass; PCO2 ABG 63.7 mmHg (35.0-45.0); Site Drawn LEFT RADIAL
[2024-12-31 05:52] LABS: Expiratory Pressure 5 cmH2O; Inspiratory Pressure 15 cmH2O
--- NOTE | 2024-12-31 07:47 | P.PNIM_ITS ---
Progress Note: A&P Assessment and Plan (1) Acute exacerbation of chronic obstructive pulmonary disease: Code(s): J44.1 - Chronic obstructive pulmonary disease with (acute) exacerbation Status: Acute Assessment and Plan: * Pulmonology following * IV Steroids 20 mg q 6h * Levaquin 750 mg daily * Continue BiPap to blow off CO2 * Trend labs and VS * Awaiting results of CXR * duonebs prn * urine for strep pneumo, mycoplasma and legionella ordered * will order chest physio therapy * continue mucine * * 12/30- prednisone 40 mg po daily per pulm. day 3 of steroids today * 12/31 abg worse on bipap 15/,28%. will use 20/, 32% tonight with repeat abg in am and apnea link overnight. stop solumedrol and start prednisone 40 mg po starting today. Pulm continues to follow * -will add lidocaine to be applied to chest as needed for pain from coughing (2) Iron deficiency anemia: Code(s): D50.9 - Iron deficiency anemia, unspecified Status: Chronic Assessment and Plan: * Continue home meds once they are confirmed. * Monitor and trend CBC. (3) Atrial fibrillation: Code(s): I48.91 - Unspecified atrial fibrillation Status: Chronic Assessment and Plan: * Telemetry * Continue home meds once confirmed. * NSR. (4) Acute on chronic congestive heart failure: Code(s): I50.9 - Heart failure, unspecified Status: Chronic Assessment and Plan: * Chronic heart failure * Last ECHO showing normal LVSF w/EF of 60-65% on 12/02/24. * Daily weight * Accurate Intake and output (5) Insomnia: Code(s): G47.00 - Insomnia, unspecified Status: Acute Assessment and Plan: insomnia- melatonin doesnot help much added trazadone 12/29- helped-will continue avoid atarax Time Spent With Patient Time with patient: 25 - 35 minutes Subjective Date/time seen: 12/31/24 07:47 Interval history: 64 year old female pt with PMH of A-fib off of Eliquis for two years secondary to abdominal rectal sheath hematoma, COPD, Diastolic dysfunction, anemia, GERD, CVA and HF came to the ER from home with complaints of feeling fatigued and dyspneic. She was recently admitted and was just discharged on 12/08/24 w/acute COPD exacerbation. She was determined to need 5L oxygen per nocturnal oximetry and completed abx and discharged to follow up with [employer] as outpt as well as Cardiology as outpt. Patient is a former smoker that quit 2021, she does not use alcohol or any illicit drugs. Patient was recently treated with steroids at the time of discharge. She denies any chest pain but is very fatigued and difficult to awaken. She was requiring BiPAP to maintain her saturations. 12/29/2024: Pt is seen and examined. Patient states she had a bad night and she is not feeling much better. She is c/o cough. She is on 4 L nasal cannula saturations 94%. Patient tempted to wear the full face mask with the AVAPS settings -managed per pulm, but she could not sleep well. she is willing to try it again tonight. Patient received a Xopenex treatment and had a heart rate 160 that decreased on its own. Pt is seen and examined today. she is calm and comfortable. no pain. feels like it is hard for her to bring phlegm up. HR had been controlled and stable. 12/30- pt is seen and examine. she slept better and her breathing is better as well. easier to cough. remains on oxygen. 12/31 - seen and examined during morning rounds. chest discomfort from coughing. did not have a good night )different BIPap setting were used- as dictated per insurance- as pt has to meet certain threshold in order to qualify for bipap for home use) Review of Systems Review of Systems: All systems reviewed & are unremarkable except as noted in HPI and below Exam Const: General: comfortable Other: Obese, somnolent HENMT: Face/Nose/Sinus: Normal nares present Mouth: Yes dry mucous membranes Eyes: General: appearance normal, both eyes and all related structures Sclera: sclerae normal Pupils: Equal, round and reactive pupils present EOM: EOMs intact bilaterally Neck: Neck: supple and no JVD Lymphatic: lymphadenopathy not noted Chest: Other: not tender Resp: Effort & Inspection: abnormal respiratory effort (Increased effort) Auscultation: diminished lung sounds bilateral (Bases) Other: scattered wheezing Cardio: Rate: regular rate Rhythm: regular rhythm Heart sounds: no gallops, no murmurs and no rubs GI: Inspection: non-distended Auscultation: normal bowel sounds Skin: General skin exam: No normal color (pale), No lesion and No rashes Lesions: no lesions noted Rashes: no rashes noted Wounds: no wounds Neuro: Cranial nerves: Yes Equal, round and reactive pupils present Speech: normal speech Motor exam (neuro): Abnormal motor strength present (Generalized weakness) Extrem: General: edema Other: BLE edema. Not pitting Psych: Mental Status: mental status grossly normal Affect: normal affect Objective Data Vital Signs Vital Signs: Vital Signs - 24 hr 12/30/24 08:00 12/30/24 08:00 12/30/24 08:00 Temperature Pulse Rate 68 Respiratory Rate 20 Blood Pressure Pulse Oximetry 93 94 Oxygen Delivery Nasal Cannula Nasal Cannula Oxygen Flow Rate 4 4 12/30/24 08:11 12/30/24 08:48 12/30/24 08:49 Temperature Pulse Rate 85 62 62 Respiratory Rate 20 Blood Pressure Pulse Oximetry Oxygen Delivery Oxygen Flow Rate 12/30/24 11:07 12/30/24 11:28 12/30/24 11:28 Temperature Pulse Rate 68 68 Respiratory Rate 20 20 Blood Pressure Pulse Oximetry 94 Oxygen Delivery High Flow Therapy with Na Nasal Cannula Oxygen Flow Rate 4 4 12/30/24 11:40 12/30/24 15:15 12/30/24 15:18 Temperature Pulse Rate 72 Respiratory Rate 20 Blood Pressure Pulse Oximetry 88 L 94 Oxygen Delivery Nasal Cannula Nasal Cannula Oxygen Flow Rate 4 5 12/30/24 15:26 12/30/24 15:29 12/30/24 15:37 Temperature Pulse Rate 66 57 L Respiratory Rate 20 20 Blood Pressure Pulse Oximetry 97 Oxygen Delivery Nasal Cannula Oxygen Flow Rate 4 12/30/24 16:00 12/30/24 19:34 12/30/24 19:51 Temperature 97.0 F L 97.6 F Pulse Rate 61 59 L 66 Respiratory Rate 18 18 17 Blood Pressure 148/53 H 131/94 H Pulse Oximetry 97 97 98 Oxygen Delivery Nasal Cannula Oxygen Flow Rate 4 12/30/24 19:51 12/30/24 20:06 12/30/24 21:21 Temperature Pulse Rate 66 68 Respiratory Rate 17 20 Blood Pressure Pulse Oximetry 98 Oxygen Delivery Nasal Cannula Oxygen Flow Rate 4 12/30/24 21:22 12/30/24 22:30 12/31/24 05:10 Temperature 98.5 F Pulse Rate 68 51 L Respiratory Rate 21 H 17 Blood Pressure 116/54 L Pulse Oximetry 94 Oxygen Delivery BiPAP Oxygen Flow Rate 12/31/24 05:15 12/31/24 07:30 12/31/24 07:30 Temperature Pulse Rate 60 57 L Respiratory Rate 19 24 H Blood Pressure Pulse Oximetry 93 90 Oxygen Delivery BiPAP Nasal Cannula Oxygen Flow Rate 4 12/31/24 07:39 Temperature Pulse Rate 56 L Respiratory Rate 20 Blood Pressure Pulse Oximetry Oxygen Delivery Oxygen Flow Rate Intake/Output Intake/Output: Intake & Output 12/28/24 12/29/24 12/30/24 12/31/24 23:59 23:59 23:59 23:59 Intake Total 1030 1490 3290 350 Output Total 750 2700 1200 Balance 1030 740 590 -850 Meds/Results Medications: Active Medications Generic Name Dose Route Start Last Admin Trade Name Freq PRN Reason Stop Dose Admin Amiodarone HCl 200 mg 12/29/24 09:00 12/30/24 08:49 Amiodarone Hcl 200 Mg Tablet PO 200 mg DAILY YODIT Administration Amitriptyline HCl 10 mg 12/28/24 21:00 12/30/24 21:21 Amitriptyline Hcl 10 Mg Tablet PO 10 mg HS YODIT Administration Duloxetine HCl 40 mg 12/28/24 17:00 12/30/24 17:26 Duloxetine Hcl 20 Mg Capsule.Dr PO 40 mg BID YODIT Administration Escitalopram Oxalate 20 mg 12/28/24 15:30 12/30/24 08:49 Escitalopram Oxalate 10 Mg Tablet PO 20 mg DAILY YODIT Administration Ferrous Sulfate 325 mg 12/28/24 17:00 12/30/24 17:26 Ferrous Sulfate [address] BY MOUTH 325 mg BID YODIT Administration Furosemide 20 mg 12/28/24 17:00 12/30/24 17:26 Furosemide 20 Mg Tablet PO 20 mg BID YODIT Administration Guaifenesin 1,200 mg 12/28/24 21:00 12/30/24 21:20 Guaifenesin 12 Hr 600 Mg Tabcr PO 1,200 mg Q12HR YODIT Administration Ipratropium [place] 0.5 mg 12/29/24 12:00 12/31/24 07:40 Ipratropium Br 0.02% Inh Soln 0.5 Mg/2.5 Ml Vial INHALATION Not Given Q4HRT YODIT Levofloxacin 750 mg 12/28/24 06:00 12/30/24 05:57 Levofloxacin 750 Mg Tablet PO 750 mg Q48H YODIT Administration Magnesium Hydroxide 30 ml 12/28/24 14:40 Magnesium Hydroxide Susp 30 Ml Udc PO HS PRN Constipation Melatonin 5 mg 12/28/24 14:40 12/30/24 21:23 Melatonin 5 Mg Tablet PO 5 mg HS PRN Administration Insomnia Metoprolol Tartrate 100 mg 12/28/24 21:00 12/30/24 21:22 Metoprolol Tartrate 50 Mg Tab PO 100 mg Q12HR YODIT Administration Montelukast Sodium 10 mg 12/29/24 09:00 12/30/24 08:49 Montelukast Sodium 10 Mg Tablet PO 10 mg DAILY YODIT Administration Pantoprazole Sodium 40 mg 12/28/24 21:00 12/30/24 21:21 Pantoprazole 40 Mg Tablet PO 40 mg Q12HR YODIT Administration Prednisone 40 mg 12/30/24 09:05 12/30/24 11:10 Prednisone 20 Mg Tablet PO 40 mg DAILY@0800 YODIT Administration Quetiapine Fumarate 25 mg 12/28/24 21:00 12/30/24 21:22 Quetiapine Fumarate 25 Mg Tablet PO 25 mg HS YODIT Administration Ropinirole HCl 4 mg 12/28/24 21:00 12/30/24 21:21 Ropinirole Hcl 1 Mg Tablet PO 4 mg HS YODIT Administration Topiramate 200 mg 12/28/24 21:00 12/30/24 21:21 Topiramate 100 Mg Tablet PO 200 mg Q12HR YODIT Administration Trazodone HCl 50 mg 12/28/24 21:00 12/30/24 21:22 Trazodone Hcl 50 Mg Tablet PO 50 mg HS YODIT Administration Trazodone HCl 50 mg 12/29/24 15:16 Trazodone Hcl 50 Mg Tablet PO HS PRN Insomnia Radiology Results: ITS Impressions Chest X-Ray 12/28/24 05:22 Impression: Probable chronic interstitial disease with basilar predominance. Chest CT 12/28/24 15:42 IMPRESSION: No cross-sectional imaging evidence to suggest the presence of pneumonia. Bibasilar atelectasis, unchanged from a recent radiograph, as detailed above.. Labs Labs: Laboratory Results - last 24 hr 12/28/24 12/30/24 12/31/24 10:52 08:35 04:20 WBC 15.3 H 14.5 H RBC 3.78 L 3.87 L Hgb 10.0 L 10.2 L Hct 34.6 L 35.6 L MCV 91.5 92.0 MCH 26.5 26.4 MCHC 28.9 L 28.7 L RDW 14.7 H 14.7 H Plt Count 216 233 MPV 9.8 9.7 Puncture Site ABG pH ABG pCO2 ABG pO2 ABG PO2/FiO2 Ratio ABG HCO3 ABG O2 Saturation ABG O2 Content ABG Base Excess A-a Gradient Oxyhemoglobin Total Hemoglobin O2 Delivery Device FiO2 Expiratory Pressure Inspiratory Pressure Sodium 137 138 Potassium 4.5 3.7 Chloride 92 L 93 L Carbon Dioxide > 40 H > 40 H Anion Gap BUN 45 H D 41 H Creatinine 1.54 H 1.61 H Estim Creat Clear Calc 41 40 Estimated GFR 34 L 32 L Glucose 154 H 107 Calcium 9.4 9.4 Nasal RSV Type A (PCR) Not detected Nasal RSV Type B (PCR) Not detected Chlamy pneumoniae PCR Not detected Adenovirus DNA Not detected Human Bocavirus (DESHAUN) Not detected Coronavirus Type OC43 Not detected Coronavirus Type HKU1 Not detected Coronavirus Type 229E Not detected Coronavirus Type NL63 Not detected Human Metapneumovir PCR Not detected Influenza A (PCR) Not detected Influenza A (H1) RNA Not detected Influenza A (H3) PCR Not detected M. pneumoniae DNA Not detected Parainfluenza PCR Not detected Parainfluenza 2 (PCR) Not detected Parainfluenza 3 RNA (PCR) Not detected Parainfluenza 4 (PCR) Not detected Rhino/Enterovirus (DESHAUN) Not detected Influenza Type B (PCR) Not detected Misc Test Comment see note 12/31/24 05:06 WBC RBC Hgb Hct MCV MCH MCHC RDW Plt Count MPV Puncture Site Left radial ABG pH 7.370 ABG pCO2 63.7 H* ABG pO2 69.3 L ABG PO2/FiO2 Ratio 3.47 ABG HCO3 36.0 H ABG O2 Saturation 92.9 L ABG O2 Content 15.2 L ABG Base Excess 8.8 A-a Gradient < 0.0 Oxyhemoglobin 93.0 Total Hemoglobin 11.6 L O2 Delivery Device Bipap FiO2 28 Expiratory Pressure 5 Inspiratory Pressure 15 Sodium Potassium Chloride Carbon Dioxide Anion Gap BUN Creatinine Estim Creat Clear Calc Estimated GFR Glucose Calcium Nasal RSV Type A (PCR) Nasal RSV Type B (PCR) Chlamy pneumoniae PCR Adenovirus DNA Human Bocavirus (DESHAUN) Coronavirus Type OC43 Coronavirus Type HKU1 Coronavirus Type 229E Coronavirus Type NL63 Human Metapneumovir PCR Influenza A (PCR) Influenza A (H1) RNA Influenza A (H3) PCR M. pneumoniae DNA Parainfluenza PCR Parainfluenza 2 (PCR) Parainfluenza 3 RNA (PCR) Parainfluenza 4 (PCR) Rhino/Enterovirus (DESHAUN) Influenza Type B (PCR) Misc Test Comment Quality VTE Prophylaxis VTE prophylaxis: mechanical ordered
[2024-12-31] MEDS: predniSONE 20 MG TABLET 40 MG PO (09:19)
[2024-12-31] MEDS: TOPIRAMATE 100 MG TABLET 200 MG PO ×2 (09:19→20:34)
[2024-12-31] MEDS: guaiFENesin 12 HR 600 MG TABCR 1200 MG PO ×2 (09:20→20:35)
[2024-12-31] MEDS: AMIODARONE HCL 200 MG TABLET PO (09:20)
[2024-12-31] MEDS: METOPROLOL TARTRATE 50 MG TAB 100 MG PO ×2 (09:20→20:36)
[2024-12-31] MEDS: PANTOPRAZOLE 40 MG TABLET PO ×2 (09:20→20:35)
[2024-12-31] MEDS: FERROUS SULFATE 325 MG TABLET DR BY MOUTH ×2 (09:20→17:31)
[2024-12-31] MEDS: MONTELUKAST SODIUM 10 MG TABLET PO (09:20)
[2024-12-31] MEDS: DULoxetine HCL 20 MG CAPSULE.DR 40 MG PO ×2 (09:20→17:30)
[2024-12-31] MEDS: ESCITALOPRAM OXALATE 10 MG TABLET 20 MG PO (09:20)
[2024-12-31] MEDS: FUROSEMIDE 20 MG TABLET PO ×2 (09:20→17:31)
--- NOTE | 2024-12-31 10:07 | ECG_ITS ---
Test Date: 2024-12-31 11:08:19 Measurements Intervals [place] Rate: 56 P: -50 NH: 163 QRS: 30 QRSD: 154 T: 38 QT: 459 QTc: 443 Interpretive Statements SINUS BRADYCARDIA INTRAVENTRICULAR CONDUCTION DELAY [130+ ms QRS DURATION] Electronically Signed On 12-31-2024 15:35:41 CDT by Adrianna Ny M.D.
[2024-12-31] MEDS: HYDROcodone/acetaminophen (*CRX) 5-325 MG TABLET 1 TAB PO (10:10)
--- NOTE | 2024-12-31 15:45 | PC.NURSE ---
Patient told RN she was hallucinating. RN called Nicky to update. She wants to continue to monitor.
--- NOTE | 2024-12-31 16:03 | PC.NURSE ---
RN spoke to Nicky on phone again. Nicky advises ABGs are necessary and a physician will come to lay eyes on patient.
[2024-12-31 17:20] LABS: Alveolar/Arterial O2 Gradient 151.1 mmHg; Base Excess ABG 8.5 mEq/l (+/-2.0); Fractional Inspired Oxygen 38 %; HCO3 ABG 35.9 mEq/l (22.0-26.0); Oxygen Content ABG 15.4 %vol (16.0-22.0); Oxygen Saturation ABG 92.9 % (95.0-100.0); Oxyhemoglobin 93.1 % THb (90.0-100.0); PO2 ABG 69.9 mmHg (80.0-100.0); PO2 FiO2 Ratio Arterial Blood 1.84 %; Total Hemoglobin 11.7 g/dL (12.0-18.0); pH ABG 7.362 (7.350-7.450)
[2024-12-31 17:28] LABS: PCO2 ABG 64.7 mmHg (35.0-45.0)
[2024-12-31 17:29] LABS: Liters per Minute 4.5 LPM; Modified Allen's Test Pass; Site Drawn LEFT RADIAL
[2024-12-31] MEDS: QUEtiapine FUMARATE 25 MG TABLET PO (20:35)
[2024-12-31] MEDS: traZODone HCL 50 MG TABLET PO (20:35)
[2024-12-31] MEDS: AMITRIPTYLINE HCL 10 MG TABLET PO (20:35)
[2024-12-31] MEDS: rOPINIRole HCL 1 MG TABLET 4 MG PO (20:35)
[2024-12-31] MEDS: MELATONIN 5 MG TABLET PO (20:36)
[2025-01-01] VITALS (21 sets, daily range): BP systolic 115–141; BP diastolic 41–92; PULSE 52–65; RESP 11–20; TEMP 35.8–36.8; O2SAT 91–97
--- NOTE | 2025-01-01 03:42 | PCRCNOTE ---
Patient did not receive 00:00 updraft treatment due to being on an overnight oximetry study. This RT will administer pt's 0400 updraft treatment when study is removed around 5.
[2025-01-01] MEDS: IPRATROPIUM BR 0.02% INH SOLN 0.5 MG/2.5 ML VIAL INHALATION ×5 (05:01→19:56)
[2025-01-01 05:59] LABS: Alveolar/Arterial O2 Gradient 79.4 mmHg; Base Excess ABG 9.6 mEq/l (+/-2.0); Fractional Inspired Oxygen 32 %; HCO3 ABG 36.9 mEq/l (22.0-26.0); Oxygen Content ABG 15.7 %vol (16.0-22.0); Oxyhemoglobin 93.8 % THb (90.0-100.0); PO2 ABG 73.6 mmHg (80.0-100.0); Total Hemoglobin 11.9 g/dL (12.0-18.0); pH ABG 7.377 (7.350-7.450)
[2025-01-01 06:01] LABS: Device NON-INVASIVE VENT; PCO2 ABG 64.2 mmHg (35.0-45.0); Site Drawn RIGHT BRACHIAL
[2025-01-01 06:02] LABS: Non-Invasive Expiratory Pressure 5 CMH2O; Non-Invasive Inspiratory Pressure 20 CMH2O; Non-Invasive Vent Rate 4 /MIN
[2025-01-01] MEDS: levoFLOXacin 750 MG TABLET PO (06:09)
--- NOTE | 2025-01-01 06:20 | PC.NURSE ---
Dr. Lopez, notified critical ABG Paco2 64.2, criteria to call not doctor if PH is or above 7.3, unless patient has mental status changes.
[2025-01-01 06:25] LABS: Hematocrit 36.5 % (37.0-47.0); Hemoglobin 10.3 g/dL (12.0-15.0); Mean Corpuscular HGB Conc 28.2 g/dl (32-36); Mean Corpuscular Hemoglobin 26.1 pg (26-34); Mean Corpuscular Volume 92.4 fl (80-100); Mean Platelet Volume 9.1 fl (7.4-10.4); Platelet Count Result 235 k/mm3 (150-375); Red Blood Count 3.95 M/mm3 (4.2-5.4); Red Cell Distribution Width 14.6 % (11.5-14.5); White Blood Count 14.7 K/mm3 (4.5-10.0)
[2025-01-01 06:51] LABS: Blood Urea Nitrogen 33 mg/dL (7-17); Calcium 9.1 mg/dL (8.4-10.2); Carbon Dioxide > 40 mmol/L (22-30); Chloride 93 mmol/L (98-107); Estimated CRCL calculation 40 ml/min; Estimated Glomerular Filt Rate 32; Glucose 115 mg/dL (65-110); Potassium 3.8 mmol/L (3.4-5.0); Sodium 139 mmol/L (137-145)
--- NOTE | 2025-01-01 06:52 | PC.NURSE ---
Dr. Lopez, notified critical PAco2 64.7. If PH is 7.3 or above do not call doctor unless patient is experiencing mental statue changes.
--- NOTE | 2025-01-01 08:21 | P.PNIM_ITS ---
Progress Note: A&P Assessment and Plan (1) Acute exacerbation of chronic obstructive pulmonary disease: Code(s): J44.1 - Chronic obstructive pulmonary disease with (acute) exacerbation Status: Acute Assessment and Plan: * Pulmonology following * IV Steroids 20 mg q 6h * Levaquin 750 mg daily * Continue BiPap to blow off CO2 * Trend labs and VS * Awaiting results of CXR * duonebs prn * urine for strep pneumo, mycoplasma and legionella ordered * will order chest physio therapy * continue mucine * * 12/30- prednisone 40 mg po daily per pulm. day 3 of steroids today * 12/31 abg worse on bipap 15/5,28%. will use 20/5, 32% tonight with repeat abg in am and apnea link overnight. stop solumedrol and start prednisone 40 mg po starting today. Pulm continues to follow * -will add lidocaine to be applied to chest as needed for pain from coughing * * 01/01 abg: co2 64.2, o2 73.6, hco3 36.9. BIpap setting for notigh: r20 20/5, 32% fio2 per pulm order. * continue to monitor (2) Iron deficiency anemia: Code(s): D50.9 - Iron deficiency anemia, unspecified Status: Chronic Assessment and Plan: * Continue home meds once they are confirmed. * Monitor and trend CBC. (3) Atrial fibrillation: Code(s): I48.91 - Unspecified atrial fibrillation Status: Chronic Assessment and Plan: * Telemetry * Continue home meds once confirmed. * NSR. (4) Acute on chronic congestive heart failure: Code(s): I50.9 - Heart failure, unspecified Status: Chronic Assessment and Plan: * Chronic heart failure * Last ECHO showing normal LVSF w/EF of 60-65% on 12/02/24. * Daily weight * Accurate Intake and output (5) Insomnia: Code(s): G47.00 - Insomnia, unspecified Status: Acute Assessment and Plan: insomnia- melatonin doesnot help much added trazadone 12/29- helped-will continue avoid atarax (6) Hallucination: Code(s): R44.3 - Hallucinations, unspecified Status: Acute Assessment and Plan: reported to RN yesterday- was too embarrassed to discuss it CT was done last night- no acute events pt reports that she had same symptoms before -same kinds of hallucinations and had UTI. Will collect UA and start treatment for UTI now and monitor closely. Time Spent With Patient Time with patient: Greater than 35 minutes Subjective Date/time seen: 01/01/25 08:21 Interval history: 64 year old female pt with PMH of A-fib off of Eliquis for two years secondary to abdominal rectal sheath hematoma, COPD, Diastolic dysfunction, anemia, GERD, CVA and HF came to the ER from home with complaints of feeling fatigued and dyspneic. She was recently admitted and was just discharged on 12/08/24 w/acute COPD exacerbation. She was determined to need 5L oxygen per nocturnal oximetry and completed abx and discharged to follow up with [facility] as outpt as well as Cardiology as outpt. Patient is a former smoker that quit 2021, she does not use alcohol or any illicit drugs. Patient was recently treated with steroids at the time of discharge. She denies any chest pain but is very fatigued and difficult to awaken. She was requiring BiPAP to maintain her saturations. 12/29/2024: Pt is seen and examined. Patient states she had a bad night and she is not feeling much better. She is c/o cough. She is on 4 L nasal cannula saturations 94%. Patient tempted to wear the full face mask with the AVAPS se ttings -managed per pulm, but she could not sleep well. she is willing to try it again tonight. Patient received a Xopenex treatment and had a heart rate 160 that decreased on its own. Pt is seen and examined today. she is calm and comfortable. no pain. feels like it is hard for her to bring phlegm up. HR had been controlled and stable. 12/30- pt is seen and examine. she slept better and her breathing is better as well. easier to cough. remains on oxygen. 12/31 - seen and examined during morning rounds. chest discomfort from coughing. did not have a good night )different BIPap setting were used- as dictated per insurance- as pt has to meet certain threshold in order to qualify for bipap for home use) 01/01 reported to RN yesterday evening that she was hallucinating. abg repeated. she was alert and appropriate. pt reports that this is not new to her. She had same hallucinations in the past and ended up being dx with UTI. she is alert, oriented, in no distress. Review of Systems Review of Systems: All systems reviewed & are unremarkable except as noted in HPI and below Exam Const: General: comfortable Other: Obese, somnolent HENMT: Face/Nose/Sinus: Normal nares present Mouth: Yes dry mucous membranes Eyes: General: appearance normal, both eyes and all related structures Sclera: sclerae normal Pupils: Equal, round and reactive pupils present EOM: EOMs intact bilaterally Neck: Neck: supple and no JVD Lymphatic: lymphadenopathy not noted Chest: Other: not tender Resp: Effort & Inspection: abnormal respiratory effort (Increased effort) Auscultation: diminished lung sounds bilateral (Bases) Other: scattered wheezing Cardio: Rate: regular rate Rhythm: regular rhythm Heart sounds: no gallops, no murmurs and no rubs GI: Inspection: non-distended Auscultation: normal bowel sounds Skin: General skin exam: No normal color (pale), No lesion and No rashes Lesions: no lesions noted Rashes: no rashes noted Wounds: no wounds Neuro: Cranial nerves: Yes Equal, round and reactive pupils present Speech: normal speech Motor exam (neuro): Abnormal motor strength present (Generalized weakness) Extrem: General: edema Other: BLE edema. Not pitting Psych: Mental Status: mental status grossly normal Affect: normal affect Objective Data Vital Signs Vital Signs: Vital Signs - 24 hr 12/31/24 09:09 12/31/24 09:09 12/31/24 09:20 Temperature Pulse Rate 64 64 Respiratory Rate 22 H Blood Pressure 109/42 L Pulse Oximetry 91 91 Oxygen Delivery Nasal Cannula Oxygen Flow Rate 4.5 Fraction of Inspired Oxygen 12/31/24 09:20 12/31/24 12:42 12/31/24 12:53 Temperature 97.8 F Pulse Rate 64 59 L 59 L Respiratory Rate 23 H 18 Blood Pressure 98/52 L Pulse Oximetry 90 Oxygen Delivery Oxygen Flow Rate Fraction of Inspired Oxygen 12/31/24 13:02 12/31/24 14:12 12/31/24 16:10 Temperature 97.7 F Pulse Rate 60 64 60 Respiratory Rate 18 20 14 Blood Pressure 116/69 Pulse Oximetry 96 Oxygen Delivery Oxygen Flow Rate Fraction of Inspired Oxygen 12/31/24 16:21 12/31/24 16:22 12/31/24 17:32 Temperature Pulse Rate 60 65 Respiratory Rate 14 14 Blood Pressure 122/95 H Pulse Oximetry 95 Oxygen Delivery Nasal Cannula Oxygen Flow Rate 4.5 Fraction of Inspired Oxygen 12/31/24 20:08 12/31/24 20:34 12/31/24 20:36 Temperature 97.8 F Pulse Rate 62 60 Respiratory Rate 16 Blood Pressure 121/73 Pulse Oximetry 95 96 Oxygen Delivery Nasal Cannula Oxygen Flow Rate 4 Fraction of Inspired Oxygen 12/31/24 21:13 12/31/24 21:21 12/31/24 21:29 Temperature Pulse Rate 61 61 64 Respiratory Rate 16 16 Blood Pressure Pulse Oximetry 96 Oxygen Delivery Nasal Cannula Oxygen Flow Rate 4.5 Fraction of Inspired Oxygen 12/31/24 22:04 12/31/24 22:04 01/01/25 05:01 Temperature Pulse Rate 61 52 L Respiratory Rate 14 11 L Blood Pressure Pulse Oximetry 96 96 96 Oxygen Delivery BiPAP BiPAP BiPAP Oxygen Flow Rate Fraction of Inspired Oxygen 32 01/01/25 05:02 01/01/25 05:10 01/01/25 05:56 Temperature 97.3 F L Pulse Rate 52 L 56 L 59 L Respiratory Rate 12 15 20 Blood Pressure 115/48 L Pulse Oximetry 93 Oxygen Delivery Oxygen Flow Rate Fraction of Inspired Oxygen 01/01/25 07:42 01/01/25 07:42 01/01/25 07:55 Temperature Pulse Rate 57 L 58 L Respiratory Rate 16 16 Blood Pressure Pulse Oximetry 97 Oxygen Delivery Nasal Cannula Oxygen Flow Rate 4.5 Fraction of Inspired Oxygen Intake/Output Intake/Output: Intake & Output 12/29/24 12/30/24 12/31/24 01/01/25 23:59 23:59 23:59 23:59 Intake Total 1490 3290 955 500 Output Total 750 2700 2600 1100 Balance 743 258 -5004 -228 Meds/Results Medications: Active Medications Generic Name Dose Route Start Last Admin Trade Name Freq PRN Reason Stop Dose Admin Hydrocodone Bitart/Acetaminophen 1 tab 12/31/24 09:42 12/31/24 10:10 Hydrocodone/Acetaminophen (*Crx) 5-325 Mg Tablet PO 1 tab Q4H PRN Administration Pain Rated 4-6 Amiodarone HCl 200 mg 12/29/24 09:00 12/31/24 09:20 Amiodarone Hcl 200 Mg Tablet PO 200 mg DAILY YODIT Administration Amitriptyline HCl 10 mg 12/28/24 21:00 12/31/24 20:35 Amitriptyline Hcl 10 Mg Tablet PO 10 mg HS YODIT Administration Duloxetine HCl 40 mg 12/28/24 17:00 12/31/24 17:30 Duloxetine Hcl 20 Mg Capsule.Dr PO 40 mg BID YODIT Administration Escitalopram Oxalate 20 mg 12/28/24 15:30 12/31/24 09:20 Escitalopram Oxalate 10 Mg Tablet PO 20 mg DAILY YODIT Administration Ferrous Sulfate 325 mg 12/28/24 17:00 12/31/24 17:31 Ferrous Sulfate [address] BY MOUTH 325 mg BID OYDIT Administration Furosemide 20 mg 12/28/24 17:00 12/31/24 17:31 Furosemide 20 Mg Tablet PO 20 mg BID YODIT Administration Guaifenesin 1,200 mg 12/28/24 21:00 12/31/24 20:35 Guaifenesin 12 Hr 600 Mg Tabcr PO 1,200 mg Q12HR YODIT Administration Ipratropium [place] 0.5 mg 12/29/24 12:00 01/01/25 07:40 Ipratropium Br 0.02% Inh Soln 0.5 Mg/2.5 Ml Vial INHALATION 0.5 mg Q4HRT YODIT Administration Levofloxacin 750 mg 12/28/24 06:00 01/01/25 06:09 Levofloxacin 750 Mg Tablet PO 750 mg Q48H YODIT Administration Lidocaine 1 patch 12/31/24 11:55 12/31/24 13:19 Lidocaine 5% Patch TRANSDERM Not Given DAILY YODIT Magnesium Hydroxide 30 ml 12/28/24 14:40 Magnesium Hydroxide Susp 30 Ml Udc PO HS PRN Constipation Melatonin 5 mg 12/28/24 14:40 12/31/24 20:36 Melatonin 5 Mg Tablet PO 5 mg HS PRN Administration Insomnia Metoprolol Tartrate 100 mg 12/28/24 21:00 12/31/24 20:36 Metoprolol Tartrate 50 Mg Tab PO 100 mg Q12HR YODIT Administration Montelukast Sodium 10 mg 12/29/24 09:00 12/31/24 09:20 Montelukast Sodium 10 Mg Tablet PO 10 mg DAILY YODIT Administration Pantoprazole Sodium 40 mg 12/28/24 21:00 12/31/24 20:35 Pantoprazole 40 Mg Tablet PO 40 mg Q12HR YODIT Administration Prednisone 40 mg 12/30/24 09:05 12/31/24 09:19 Prednisone 20 Mg Tablet PO 40 mg DAILY@0800 YODIT Administration Quetiapine Fumarate 25 mg 12/28/24 21:00 12/31/24 20:35 Quetiapine Fumarate 25 Mg Tablet PO 25 mg HS YODIT Administration Ropinirole HCl 4 mg 12/28/24 21:00 12/31/24 20:35 Ropinirole Hcl 1 Mg Tablet PO 4 mg HS YODIT Administration Topiramate 200 mg 12/28/24 21:00 12/31/24 20:34 Topiramate 100 Mg Tablet PO 200 mg Q12HR YODIT Administration Trazodone HCl 50 mg 12/28/24 21:00 12/31/24 20:35 Trazodone Hcl 50 Mg Tablet PO 50 mg HS YODIT Administration Trazodone HCl 50 mg 12/29/24 15:16 Trazodone Hcl 50 Mg Tablet PO HS PRN Insomnia Radiology Results: ITS Impressions Chest X-Ray 12/28/24 05:22 Impression: Probable chronic interstitial disease with basilar predominance. Chest CT 12/28/24 15:42 IMPRESSION: No cross-sectional imaging evidence to suggest the presence of pneumonia. Bibasilar atelectasis, unchanged from a recent radiograph, as detailed above.. Labs Labs: Laboratory Results - last 24 hr 12/28/24 12/31/24 01/01/25 10:52 17:14 05:36 WBC RBC Hgb Hct MCV MCH MCHC RDW Plt Count MPV Puncture Site Left radial Right brachial ABG pH 7.362 7.377 ABG pCO2 64.7 H* 64.2 H* ABG pO2 69.9 L 73.6 L ABG PO2/FiO2 Ratio 1.84 2.30 ABG HCO3 35.9 H 36.9 H ABG O2 Saturation 92.9 L 94.0 L ABG O2 Content 15.4 L 15.7 L ABG Base Excess 8.5 9.6 A-a Gradient 151.1 79.4 Oxyhemoglobin 93.1 93.8 Total Hemoglobin 11.7 L 11.9 L O2 Delivery Device Not Reportable Non-invasive vent O2 Liters/Min 4.5 Not Reportable Vent Rate 4 FiO2 38 32 Expiratory Pressure 5 Inspiratory Pressure 20 Sodium Potassium Chloride Carbon Dioxide Anion Gap BUN Creatinine Estim Creat Clear Calc Estimated GFR Glucose Calcium SARS-CoV-2 RNA (RT-PCR) Not detected 01/01/25 06:17 WBC 14.7 H RBC 3.95 L Hgb 10.3 L Hct 36.5 L MCV 92.4 MCH 26.1 MCHC 28.2 L RDW 14.6 H Plt Count 235 MPV 9.1 Puncture Site ABG pH ABG pCO2 ABG pO2 ABG PO2/FiO2 Ratio ABG HCO3 ABG O2 Saturation ABG O2 Content ABG Base Excess A-a Gradient Oxyhemoglobin Total Hemoglobin O2 Delivery Device O2 Liters/Min Vent Rate FiO2 Expiratory Pressure Inspiratory Pressure Sodium 139 Potassium 3.8 Chloride 93 L Carbon Dioxide > 40 H Anion Gap BUN 33 H Creatinine 1.59 H Estim Creat Clear Calc 40 Estimated GFR 32 L Glucose 115 H Calcium 9.1 SARS-CoV-2 RNA (RT-PCR) Quality VTE Prophylaxis VTE prophylaxis: mechanical ordered
[2025-01-01] MEDS: AMIODARONE HCL 200 MG TABLET PO (08:56)
[2025-01-01] MEDS: FUROSEMIDE 20 MG TABLET PO ×2 (08:56→17:01)
[2025-01-01] MEDS: TOPIRAMATE 100 MG TABLET 200 MG PO ×2 (08:56→20:47)
[2025-01-01] MEDS: predniSONE 20 MG TABLET 40 MG PO (08:56)
[2025-01-01] MEDS: METOPROLOL TARTRATE 50 MG TAB 100 MG PO ×2 (08:57→20:47)
[2025-01-01] MEDS: FERROUS SULFATE 325 MG TABLET DR BY MOUTH ×2 (08:57→17:01)
[2025-01-01] MEDS: PANTOPRAZOLE 40 MG TABLET PO ×2 (08:57→20:47)
[2025-01-01] MEDS: ESCITALOPRAM OXALATE 10 MG TABLET 20 MG PO (08:57)
[2025-01-01] MEDS: guaiFENesin 12 HR 600 MG TABCR 1200 MG PO ×2 (08:57→20:47)
[2025-01-01] MEDS: MONTELUKAST SODIUM 10 MG TABLET PO (08:57)
[2025-01-01] MEDS: DULoxetine HCL 20 MG CAPSULE.DR 40 MG PO ×2 (08:57→17:01)
[2025-01-01] MEDS: LIDOCAINE 5% PATCH 1 PATCH TRANSDERM (08:58)
[2025-01-01 10:40] LABS: Add Urine Microscopic? YES; Appearance Urine Clear (Clear); Bacteria Urine None Seen /hpf; Bilirubin Urine Negative (Negative); Blood Urine Negative (Negative); Color Urine Yellow (Yellow); Glucose Urine UA Negative (Negative); Ketones Urine Negative (Negative); Leukocyte Esterase Ur Trace LEU/UL (Negative); Nitrate Urine Negative (Negative); Non Pathogenic Casts 0-2; Protein Urine Negative (Negative); RBC Urine 0-2 /hpf (0-2); Specific Grav Ur 1.009 (1.001-1.035); Squamous Epithelial Cell Urine None Seen /hpf (Few); Urobilinogen Urine 0.2 mg/dL (<2.0); WBC Urine 0-5 /hpf (0-3)
[2025-01-01 16:09] LABS: Pneumococcal Antigen Urine NOT DETECTED
[2025-01-01] MEDS: AMITRIPTYLINE HCL 10 MG TABLET PO (20:46)
[2025-01-01] MEDS: rOPINIRole HCL 1 MG TABLET 4 MG PO (20:46)
[2025-01-01] MEDS: traZODone HCL 50 MG TABLET PO (20:46)
[2025-01-01] MEDS: MELATONIN 5 MG TABLET PO (20:47)
[2025-01-01] MEDS: QUEtiapine FUMARATE 25 MG TABLET PO (20:47)
[2025-01-01 21:48] LABS: Legionella pneumophila Ag Ur NOT DETECTED
[2025-01-02] VITALS (17 sets, daily range): BP systolic 110–113; BP diastolic 47–66; PULSE 59–89; RESP 16–21; TEMP 36.1–36.3; O2SAT 91–97
[2025-01-02] MEDS: IPRATROPIUM BR 0.02% INH SOLN 0.5 MG/2.5 ML VIAL INHALATION ×5 (03:21→19:44)
[2025-01-02 04:48] LABS: Hematocrit 34.5 % (37.0-47.0); Mean Corpuscular Hemoglobin 26.2 pg (26-34); Mean Corpuscular Volume 90.6 fl (80-100); Mean Platelet Volume 9.4 fl (7.4-10.4); Platelet Count Result 260 k/mm3 (150-375); Red Blood Count 3.81 M/mm3 (4.2-5.4); Red Cell Distribution Width 14.6 % (11.5-14.5); White Blood Count 14.1 K/mm3 (4.5-10.0)
[2025-01-02 04:57] LABS: Anion Gap 4 mmol/L (4-12); Blood Urea Nitrogen 28 mg/dL (7-17); Calcium 9.1 mg/dL (8.4-10.2); Carbon Dioxide 39 mmol/L (22-30); Chloride 93 mmol/L (98-107); Estimated CRCL calculation 44 ml/min; Estimated Glomerular Filt Rate 36; Glucose 107 mg/dL (65-110); Potassium 3.4 mmol/L (3.4-5.0); Sodium 136 mmol/L (137-145)
--- NOTE | 2025-01-02 06:04 | PC.NURSE ---
RESPIRATORY THERAPIST INFORMED ME THAT PT HAD REMOVED BIPAP 1HR PRIOR. PT ON SLEEP STUDY AND RESPIRATORY WAS ORDERED TO COLLECT BLOOD GASSES ON PT WHILE SHE STILL HAD MASK ON. THERAPIST STATED WITH THE PT NOT HAVING THE MASK ON FOR SUCH AN EXTENDED TIME THE RESULTS WOULD BE INCORRECT AND THEY WOULD NOT BE ABLE TO BE USED. RESPIRATORY ASKED ME TO CLARIFY WITH THE PHYSICIAN ABOUT DRAWING THE LABS. CALLED DR. ROOT HE REQUESTED WE D/C THE ORDER FOR THIS MORNING TO DRAW PT ABG. RESPIRATORY THERAPIST AND PT NURSE RORY INFORMED.
[2025-01-02 08:05] LABS: NT Pro B Type Natriuretic Pept 859 pg/mL (19.9-100)
--- NOTE | 2025-01-02 08:23 | P.PNPL_ITS ---
Progress Note: A&P Assessment and Plan (1) Chronic obstructive pulmonary disease: Code(s): J44.9 - Chronic obstructive pulmonary disease, unspecified Status: Chronic Assessment and Plan: Regarding her COPD, 50 pack year tobacco use, quit 08/23/2022, alpha 1 anti trypsin genotype MZ, alpha 1 anti trypsin level 134, normal. The patient has been on oxygen for the last 5 years. I have no PFTs. She is using 5 L at rest with home saturations 92-96%. First CT scan in our system is from 08/27/2022 shows mild apical predominant centrilobular emphysema. Repeat CT angiogram of the chest on 12/02/2024 demonstrates mild apical predominant centrilobular emphysema. Patient is maintained on trelegy inhaler but she does not use a because of the taste. Patient takes Trelegy 100, montelukast 10 and albuterol p.r.n.. Patient tells me she wheezes every day when she takes rescue albuterol at home it relieves her wheezing for 1-2 minutes. 12/01/2024: White blood cell count 14.8, eosinophils 0.6%= 89 per micro L. patient presents with shortness of breath, no change in phlegm production or color, worsening shortness of breath and hypoxemic respiratory failure. Patient treated with bronchodilators, steroids and BiPAP. 12/28/24: The patient tells me that the day after she left the hospital she started getting worse with fatigue and then worsening oxygenation about 5 days ago. On her prescribed 2 L her saturations were in the 80s and then as low as 79%. She denied fever, chills, rigors. She had a dry cough with no phlegm and no hemoptysis. Currently says she is improved and breathing 50% back to her normal but she feels still feels tired and short of breath. The patient told me she had improved and could come off of the mask and she was placed on 3 L nasal cannula with saturations 91% Plan: Will continue treatment for possible COPD exacerbation. Patient has wheezing but has wheezing every day. I will decrease her Solu-Medrol to 20 mg IV q.6 hours. Continue DuoNebs q.6 hours. Patient is on levofloxacin for possible pneumonia and bronchitis. I will obtain a D-dimer and if positive will get a CT angiogram of the chest. If negative will get a CT scan of the chest looking for focal infiltrates consistent with a pneumonia. Goal saturation 90- 94%, Adjust oxygen accordingly. Will add guaifenesin 1200 mg p.o. b.i.d. Later in the day patient had a CT scan of the chest with moderate apical predominant centrilobular emphysema and bibasilar atelectasis with no evidence of pneumonia. 12/29/2024: Patient states she had a bad night and his breathing worse today. Her cough is increased with no phlegm and no blood. She is afebrile. White blood cell count 15.2, creatinine 1.61. Currently patient is on 4 L nasal cannula saturations 94%. Patient received a Xopenex treatment and had a heart rate 160 that decreased on its own and required no medical intervention. Plan: I will continue Solu-Medrol 20 mg IV q.6. I will discontinue her levalbuterol due to the tachy arrhythmia increase her ipratropium nebulizers to q.4 hours. No evidence of pneumonia. Will treat for tracheobronchitis with Levaquin 750 mg p.o. q.48h, day 2. Continue guaifenesin 12 50 b.i.d., montelukast 10. Patient is on Lasix 20 p.o. b.i.d.. 12/30/24: Patient tells me she is having a better day today. She says that her breathing is 75% back to her normal. Her cough is improved but increased from baseline. She has no phlegm and no hemoptysis. She is afebrile. Her weight today is 112.7 kg. Patient wore the hospital noninvasive ventilator with the AVAPS mode and said that she slept well. Plan: I will change the patient to prednisone 40 mg p.o. q.day, Day 3 of steroids. I will continue ipratropium nebulizers q.4 hours. Continue montelukast 10 q day and guaifenesin 1200 p.o. b.i.d.. continue Levaquin for tracheobronchitis, day 3. Encouraged her out of bed to chair, ambulation as tolerated, physical therapy has been ordered on 12/29/2024. Respiratory path ogen panel, urine Legionella, urine pneumococcal antigen pending. pulmonary inpatient services will resume on 01/02/2025, call with questions. 01/03/2024 patient states that she is breathing 75% back to her normal. Her dyspnea on exertion is back at her normal. His cough is persistent but improved. She is afebrile. White blood cell count 14.1, creatinine 1.46. Her weight is 114. Her currently the patient is on 3 L with saturation 95%. Patient wore the hospital BiPAP with a rate of 20 pressures 20/5 and 32% FiO2 and said that she could not sleep last night because the pressure was too high and the machine had a loud leak and kept her up. BNP 859 which is increased from 563. Continue Lasix 20 p.o. b.i.d.. Plan: Patient continues to improve. Today is day 6 of prednisone and will discontinue after today's dose. Continue ipratropium q.4 hours. Patient is on Levaquin day 6. She is on ceftriaxone day 2 for UTI. Goal saturation 90- 94%, adjust oxygen accordingly. Discussed with Nicky Rock. Will follow with you. (2) Chronic hypercapnic respiratory failure: Code(s): J96.12 - Chronic respiratory failure with hypercapnia Status: Acute Assessment and Plan: Last admission 12/02/2024 to 12/08/2024) patient presented with hypercarbic respiratory failure with ABG 7.33/65/103 and serum bicarb > 40. 12/28/2024: She again presents with shortness of breath, hypoxemic and hypercarbic respiratory failure. Current venous blood gas listed as room air 7.33/72/ 43. Patient has chronic hypercarbic respiratory failure from her COPD with a room air blood gas of 7.33/72/43 (venous) and a serum bicarbonate greater than 37. She would benefit from a noninvasive ventilation as this is her 2nd hospitalization in the last month for hypercarbic respiratory failure. noninvasive ventilation would prevent further hospitalizations and deterioration. Patient was placed on BiPAP With no rate and pressures 15/5 with 28% with blood gas of 7.37/64/69. Patient was then placed on BiPAP with no rate and pressure 20/5 and 32% with a blood gas of 7.38/64/74. [employer] on these settings demonstrated adequate oxygenation. Patient was then placed on BiPAP rate of 20 pressures 20/5 and she said she could not tolerate these settings as it was too much pressure, high leak and she could not sleep at night. I will initiate the process for a home noninvasive ventilator with the AVAPS mode through her [employer], oxygen DME is Rene who we will use. The patient told me she had improved and could come off of the mask and she was placed on 3 L nasal cannula with saturations 91% 12/28/24: Currently the patient is on BiPAP rate of 18, pressures 14/8 with 40% FiO2. Patient told me these settings were uncomfortable for her and I changed them to noninvasive ventilation with the AVAPS mode rate of 14, tidal volume 500, EPAP 5, minimal inspiratory pressure 6, maximal inspiratory pressure 25, inspiratory time 1.0, rise of 1 which is the fastest and 40% FiO2. She said this was more comfortable. The patient told me she had improved and could come off of the mask and she was placed on 3 L nasal cannula with saturations 91%. Plan: noninvasive ventilation with the AVAPS mode p.r.n. during the day. I recommend she wear this tonight. After she has improved will repeat ABG during the day. 12/29/24: Patient attempted to wear the fullface mask with the AVAPS settings as above and she did wear the mask but she could not sleep. plan: Patient says she will try to wear the AVAPS again tonight. I told her if she can not sleep with the mask on that she needs to take the mask off so that she can try to sleep. 12/30/24: Patient wore the hospital noninvasive ventilator with the AVAPS mode and said that she slept well. Plan: Patient tells me she still requires breathing support at night. If the patient qualifies for ventilatory support with a home machine it will need to be BiPAP with no rate. Tonight will place the patient on BiPAP no rate, pressures 15/5 and 28% FiO2 with overnight oximetry and ABG in the morning. 12/31/24: Patient wore a hospital BiPAP with no rate pressures 15/5 with 28% with blood gas the next morning 7.37/64/69 and overnight oximetry with hypoxia. 01/02/2024: Patient wore the hospital BiPAP with no rate pressures 20/5 with 32% a blood gas of 7.38/64/74 and overnight oximetry with adequate saturations. 01/03/2024 Patient wore the hospital BiPAP with a rate of 20 pressures 20/5 and 32% FiO2 and said that she could not sleep last night because the pressure was too high and the machine had a loud leak and kept her up. Plan: I will place the patient on noninvasive ventilation with the AVAPS mode rate of 14, tidal volume 500, EPAP 5, minimum inspiratory pressure 6, maximum inspiratory pressure 25, inspiratory time 1.0, rise of 1 and 32% FiO2. I will obtain an overnight oximetry and ABG on these settings. I will initiate home noninvasive ventilation through [facility] and her insurance [facility]. Subjective Date/time seen: 01/02/25 08:23 Interval history: 12/28/2024: This is a new pulmonary consult for COPD exacerbation. 64-year-old with a history of AFib off anticoagulation for 2 years secondary to abdominal rectal sheath hematoma, diastolic dysfunction, GERD, HTN, restless legs syndrome, anxiety and COPD with chronic hypoxemic respiratory failure on 5 L at Night and 2 L with rest and activity per home O2 assessment on 12/08/2024. I previously saw the patient as an inpatient on 12/02/2024 when she was admitted for COPD exacerbation. Regarding her COPD, 50 pack year tobacco use, quit 08/23/2022, alpha 1 anti trypsin genotype MZ, alpha 1 anti trypsin level 134, normal. The patient has been on oxygen for the last 5 years. I have no PFTs. She is using 5 L at rest with home saturations 92-96%. First CT scan in our system is from 08/27/2022 shows mild apical predominant centrilobular emphysema. Repeat CT angiogram of the chest on 12/02/2024 demonstrates mild apical predominant centrilobular emphysema. Patient is maintained on trelegy inhaler but she does not use a because of the taste. Patient takes Trelegy 100, montelukast 10 and albuterol p.r.n.. Patient tells me she wheezes every day when she takes rescue albuterol at home it relieves her wheezing for 1-2 minutes. 12/01/2024: White blood cell count 14.8, eosinophils 0.6%= 89 per micro L. 12/02/2024 through 12/08/2024:? Presented to the emergency room with COPD exac erbation, hypercarbic and hypoxemic respiratory failure, AFib with RVR, and fluid overload.? Treated with BiPAP, steroids, bronchodilators, antibiotics, and diuretics.? CTA of the chest with no PE, mild apical predominant centrilobular emphysema, ?upper and lower extremity Dopplers negative for DVT.? Echocardiogram with LVEF 60-65%, RV was dilated with normal systolic function.? Left atrium normal, right atrium normal, RVSP 27. ?After she improved clinically on 12/06/2024: ABG on 5 L nasal cannula pH 7.39/48/97. ?Patient improved and was discharged on 12/08/24 on trelegy 100, rescue albuterol, montelukast 10, guaifenesin 600 b.i.d. p.r.n. congestion, no Lasix, amiodarone 200 b.i.d., metoprolol 100 q.12, she had completed 5 days of steroids in house and I did not recommend a discharge taper, however, the hospitalist discharge her on a 15 day prednisone taper. Required 2 L oxygen at rest and with activity per home O2 assessment and per overnight oximetry required 5 L NC when she naps or sleeps. ?12/08/24: creatinine 1.68. Her weight is 120.8 kg.? 12/28/2024: Presented to the emergency room with shortness of breath. blood pressure 136/117, heart rate 76, nasal cannula saturation 93%. Patient had wheezing throughout all lung paul. White blood cell count 13.4 with eosinophils 1.8%=241/ul. creatinine 1.34, serum bicarbonate 37, BNP 563. Venous blood gas listed as room air 7.33/72/ 43. patient placed on BiPAP, treated with bronchodilators, received IV steroids per EMS, lasix 40 IV. 12/28/24: Currently the patient is on BiPAP rate of 18, pressures 14/8 with 40% FiO2. Patient told me these settings were uncomfortable for her and I changed them to noninvasive ventilation with the AVAPS mode rate of 14, tidal volume 500, EPAP 5, minimal inspiratory pressure 6, maximal inspiratory pressure 25, inspiratory time 1.0, rise of 1 which is the fastest and 40% FiO2. She said this was more comfortable. The patient told me she had improved and could come off of the mask and she was placed on 3 L nasal cannula with saturations 91% The patient tells me that the day after she left the hospital she started getting worse with fatigue and then worsening oxygenation about 5 days ago. On her prescribed 2 L her saturations were in the 80s and then as low as 79%. She denied fever, chills, rigors. She had a dry cough with no phlegm and no hemoptysis. Currently says she is improved and breathing 50% back to her normal but she feels still feels tired and short of breath. Later in the day patient had a CT scan of the chest with moderate apical predominant centrilobular emphysema and bibasilar atelectasis with no evidence of pneumonia. 12/29/2024: Patient states she had a bad night and his breathing worse today. Her cough is increased with no phlegm and no blood. She is afebrile. White blood cell count 15.2, creatinine 1.61. Currently patient is on 4 L nasal cannula saturations 94%. Patient tempted to wear the fullface mask with the AVAPS settings as above and she did wear the mask but she could not sleep. Patient received a Xopenex treatment and had a heart rate 160 that decreased on its own and required no medical intervention. 12/30/24: Patient tells me she is having a better day today. She says that her breathing is 75% back to her normal. Her cough is improved but increased from baseline. She has no phlegm and no hemoptysis. She is afebrile. Her weight today is 112.7 kg. [facility]ator with the AVAPS mode and said that she slept well. 12/31/24: Patient wore a hospital BiPAP with no rate pressures 15/5 with 28% with blood gas the next morning 7.37/64/69 and overnight oximetry with hypoxia. 01/02/2024: Patient wore the hospital BiPAP with no rate pressures 20/5 with 32% a blood gas of 7.38/64/74 and overnight oximetry with adequate saturations. 01/03/2024 patient states that she is breathing 75% back to her normal. Her dyspnea on exertion is back at her normal. His cough is persistent but improved. She is afebrile. White blood cell count 14.1, creatinine 1.46. Her weight is 114. Patient wore the hospital BiPAP with a rate of 20 pressures 20/5 and 32% FiO2 and said that she could not sleep last night because the pressure was too high and the machine had a loud leak and kept her up. DATA: 12/28/24: CT chest CLINICAL INDICATION: Pneumonia suspected clinically COMPARISON: Reference is made to plain film evaluation of the chest, performed approximately 12 hours earlier and dating back to 12/05/2024. Reference is also made to a CT angiogram of the chest dated 10/20/2022 FINDINGS/OBSERVATIONS: Lung: bibasilar atelectasis, unchanged from chest radiograph. The remainder the lungs are clear. HEART: The heart is borderline enlarged, without pericardial effusion. MEDIASTINUM: Redemonstration of a large left thyroid nodule, increased in size from 2022 examination. No pathologically enlarged or morphologically suspicious lymph nodes are identified within the mediastinum, bilateral axilla, within the soft tissues of the anterior chest wall. SOFT TISSUES OF THE CHEST: Unremarkable. BONES OF THE CHEST: No acute fracture. No lytic or blastic lesions are identified. IMPRESSION: No cross-sectional imaging evidence to suggest the presence of pneumonia. Bibasilar atelectasis, unchanged from a recent radiograph, as detailed above.. 12/08/2024: Home O2 assessment: Rest room air saturation 87%. Rest nasal cannula 1 L saturation 88%. Rest nasal cannula saturation 93%. Exercise nasal cannula 2 L saturation 94%. Patient requires 2 L with rest and with activity. 12/07/24: Patient had an overnight oximetry on 5 L nasal cannula with recording duration of 6 hours and 58 minutes. Average saturation 98%. Low saturation 95%. Time with saturation less than or equal to 88% was 0 minutes. Oxygen desaturation index 0. 12/06/2024: ABG on 5 L nasal cannula pH 7.39/48/97. ? 12/02/2024: Alpha 1 anti trypsin genotype ruthie LEWIS. 12/02/2024: Alpha 1 anti trypsin level 135, normal 83-199. 12/02/24: CTA chest PE protocol History: 64 years Female with . R/O PE . Findings: PULMONARY ARTERIES: No pulmonary embolus. VISUALIZED THORACIC INLET: Left thyroid nodule is noted. Ultrasound evaluation advised. MEDIASTINUM: Aorta/coronary arteries: Mild atheromatous disease. Heart/other: The heart is not enlarged. Lymph nodes: No mediastinal or hilar adenopathy. Precarinal lymph node measuring 1.6 cm noted. LUNGS: Atelectasis versus pneumonia seen in the right lung base inferiorly. Minimal atelectasis versus pneumonia in the left lung base is also noted. No pulmonary nodules or masses. No effusions. No pneumothorax. VISUALIZED UPPER abdomen: the visualized upper abdomen is normal. MUSCULOSKELETAL: Soft tissues: The superficial soft tissues are normal. Bones: Age appropriate degenerative changes of the spine. IMPRESSION: 1. No pulmonary embolism. 2. Bilateral basal atelectasis versus pneumonia. Clinical correlation advised. 12/02/2024: Echo Summary 1. The left ventricle is normal in size and systolic function. The left ventricular ejection fraction visually estimated to be 60-60%. 2. The right ventricle is dilated with normal systolic function. 3. There are no significant valvular abnormalities. 4. Technically difficult study. Left Ventricle The left ventricle is normal in size and systolic function. The left ventricular ejection fraction visually estimated to be 60-60%. Diastolic dysfunction is present. Right Ventricle The right ventricle is dilated with normal systolic function. Left Atria The left atrium is normal size. Right Atria The right atrium is normal size. RVSP 27 12/17/2023: CT Scan of the Chest without Contrast: Clinical Indication: Lung cancer screening, nicotine dependence COMPARISON: 04/06/2023 Findings: Stable enlarged left thyroid lobe. There is no evidence of any significant mediastinal, hilar or axillary lymphadenopathy. Atherosclerotic calcifications of the aorta are present. There is no evidence of pleural or pericardial effusion. There is irregular airspace opacity in the posterior right lower lobe, improved from prior exam, likely representing postinflammatory change, as there is a previous more extensive area of consolidation in this location. Mild emphysema. Images through the upper abdomen reveal no abnormalities. Impression: Lung RADS 2: Benign appearance. 12 month follow-up screening CT advised. 09/10/2022: Echo Summary 1. Technically difficult study with limited views. Regional wall motion assessment limited due to poor endomyocardial border definition despite definity contrast enhancement. 2. Left ventricular chamber dimension is normal. 3. Left ventricular systolic function is normal, estimated at 65-70%. 4. There is mildly increased left ventricular wall thickness. 5. Right ventricular chamber dimension is normal. 6. Right ventricular systolic function is moderately reduced. TAPSE 1.3. 7. There is trace tricuspid valve regurgitation. 8. Mild pulmonary hypertension, estimated pulmonary arterial systolic pressure is 37 mmHg. 9. Normal inferior vena cava with <50% collapse upon inspiration consistent with elevated right atrial pressure, 10 mmHg. 08/28/2022: Summary 1. Left ventricular chamber dimension is normal. 2. Left ventricular systolic function is normal, estimated at 60-65%. 3. The left ventricular diastolic function is grade I diastolic dysfunction. 4. Right ventricular chamber dimension is moderately enlarged. 5. Right ventricular systolic function is normal. 6. There is moderate tricuspid valve regurgitation, which may be underestimated due to the eccentricity of the jet. 7. Dilated inferior vena cava with no collapse upon inspiration consistent with elevated right atrial pressure, 15 mmHg. 8. Pulmonary hypertension with an estimated PASP of 59mmHg. Right Ventricle Right ventricular chamber dimension is moderately enlarged. Right ventricular systolic function is normal. Right Atria Right atrial chamber dimension is normal. Atrial Septum Intact interatrial septum visualized by color flow imaging. 08/27/2022: EXAMINATION: CT chest high resolution wo co DATE: 08/27/2022 16:07 INDICATION: respiratory failure TECHNIQUE: Computed tomography (CT) of the chest was performed without intravenous contrast. Automated exposure control and iterative reconstruction technique were employed. The dose-length product was 818.52 mGy-cm. COMPARISON: X-ray chest 08/27/2022 and CTA chest 07/21/2018. FINDINGS: CHEST: Endotracheal tube terminating 2.5 cm above the maria esther. Thoracic aorta: No significant dilation. Moderate arch calcification. Lung parenchyma and airways: Diffuse tree-in-bud opacities most evident in the right lung. Scattered centrilobular nodular opacities measuring up to 11 mm in the right upper lobe. Mild interlobular septal thickening. Bibasilar dependent opacities likely representing atelectasis. Mild emphysematous change. Thoracic inlet, axillae and chest wall: No thyroid or soft tissue mass. No axillary lymphadenopathy. Mediastinum: Mediastinal lymphadenopathy. Dilated central pulmonary arteries as can be seen with pulmonary arterial hypertension. Heart and pericardium: Normal heart size. Aortic valve calcification. No pericardial effusion. Coronary artery calcifications: Mild. Pleura: Trace bilateral pleural fluid. Upper abdomen: No significant finding. Thoracic bones: No acute osseous finding in the chest. IMPRESSION: 1. Tree-in-bud opacities as can be seen with atypical infection (including but not limited to: MAC, TB, fungal), ABPA, airways disease, and less likely aspiration. 2. Nodular opacity in right upper lobe should be followed after the appropriate therapy and cessation of symptoms to ensure resolution. 3. Mediastinal lymphadenopathy. 4. Trace bilateral pleural effusions. 5. Mild interstitial edema. Review of Systems Constitutional: Constitutional: Reports no additional constitutional c omplaints Eyes: Eyes: Reports no additional eye complaints ENT: Reports system reviewed and no additional complaints, except as documented Cardiovascular: Cardiovascular: Reports no additional cardiovascular complaints Respiratory: Respiratory: Reports no additional respiratory complaints Gastrointestinal: Gastrointestinal: Reports no additional gastrointestinal complaints Musculoskeletal: Musculoskeletal: Reports no additional musculoskeletal complaints Neurologic: Reports system reviewed and no additional complaints, except as documented Psychiatric: Psychiatric: Reports no additional psychiatric complaints Endocrine: Endocrine: Reports no additional endocrine complaints Hematologic/Lymphatic: Hematologic/Lymphatic: Reports no additional hematologic/lymphatic complaints Allergic/Immunologic: Allergic/Immunologic: Reports no additional aller gic/immunologic complaints Exam Const: General: cooperative, healthy appearing and comfortable Orientation/consciousness: oriented to person, oriented to place and oriented to time HENMT: Head: normal to inspection Ears: hearing grossly normal bilaterally Eyes: General: appearance normal, both eyes and all related structures Neck: Neck: normal visual inspection Chest: Chest palpation & inspection: normal inspection of the chest Resp: Effort & Inspection: normal respiratory effort and able to speak in complete sentences Auscultation: no crackles, no rales, no rhonchi, no wheezes and diminished lung sounds Other: no wheezes Cardio: Jugular venous distension: no JVD GI: Inspection: normal to inspection Skin: General skin exam: normal color Neuro: General: oriented to person, oriented to place and oriented to time Extrem: General: edema Other: Psych: Appearance: grossly normal Objective Data Vital Signs Vital Signs: Vital Signs - 24 hr 01/01/25 08:39 01/01/25 08:40 01/01/25 08:54 Temperature Pulse Rate Respiratory Rate Blood Pressure Pulse Oximetry 91 94 94 Oxygen Delivery Nasal Cannula Nasal Cannula Nasal Cannula Oxygen Flow Rate 3 3.5 3 01/01/25 08:56 01/01/25 08:57 01/01/25 08:59 Temperature 36.8 C Pulse Rate 63 63 63 Respiratory Rate 18 Blood Pressure 141/46 H Pulse Oximetry 95 Oxygen Delivery Oxygen Flow Rate 01/01/25 11:31 01/01/25 11:40 01/01/25 12:41 Temperature 36.7 C Pulse Rate 57 L 59 L 64 Respiratory Rate 16 16 Blood Pressure 118/92 H Pulse Oximetry 94 Oxygen Delivery Oxygen Flow Rate 01/01/25 15:49 01/01/25 16:00 01/01/25 16:00 Temperature 35.8 C L Pulse Rate 61 59 L 62 Respiratory Rate 16 16 18 Blood Pressure 121/41 L Pulse Oximetry 96 Oxygen Delivery Oxygen Flow Rate 01/01/25 19:59 01/01/25 20:47 01/01/25 20:47 Temperature Pulse Rate 65 Respiratory Rate 16 Blood Pressure Pulse Oximetry 96 Oxygen Delivery Nasal Cannula Oxygen Flow Rate 3 01/01/25 20:56 01/01/25 22:15 01/02/25 05:45 Temperature 36.2 C L 36.2 C L Pulse Rate 61 65 59 L Respiratory Rate 20 20 20 Blood Pressure 120/52 L 113/47 L Pulse Oximetry 96 96 91 Oxygen Delivery BiPAP Oxygen Flow Rate Intake/Output Intake/Output: Intake & Output 12/30/24 12/31/24 01/01/25 01/02/25 23:59 23:59 23:59 23:59 Intake Total 3290 955 2440 500 Output Total 2700 2600 2950 800 Balance 590 -1645 -510 -300 Meds/Results Medications: Active Medications Generic Name Dose Route Start Last Admin Trade Name Freq PRN Reason Stop Dose Admin Hydrocodone Bitart/Acetaminophen 1 tab 12/31/24 09:42 12/31/24 10:10 Hydrocodone/Acetaminophen (*Crx) 5-325 Mg Tablet PO 1 tab Q4H PRN Administration Pain Rated 4-6 Amiodarone HCl 200 mg 12/29/24 09:00 01/01/25 08:56 Amiodarone Hcl 200 Mg Tablet PO 200 mg DAILY YODIT Administration Amitriptyline HCl 10 mg 12/28/24 21:00 01/01/25 20:46 Amitriptyline Hcl 10 Mg Tablet PO 10 mg HS YODIT Administration Duloxetine HCl 40 mg 12/28/24 17:00 01/01/25 17:01 Duloxetine Hcl 20 Mg Capsule.Dr PO 40 mg BID YODIT Administration Escitalopram Oxalate 20 mg 12/28/24 15:30 01/01/25 08:57 Escitalopram Oxalate 10 Mg Tablet PO 20 mg DAILY YODIT Administration Ferrous Sulfate 325 mg 12/28/24 17:00 01/01/25 17:01 Ferrous Sulfate [address] BY MOUTH 325 mg BID YODIT Administration Furosemide 20 mg 12/28/24 17:00 01/01/25 17:01 Furosemide 20 Mg Tablet PO 20 mg BID YODIT Administration Guaifenesin 1,200 mg 12/28/24 21:00 01/01/25 20:47 Guaifenesin 12 Hr 600 Mg Tabcr PO 1,200 mg Q12HR YODIT Administration Ceftriaxone Sodium 1 gm in 50 mls @ 100 mls/hr 01/01/25 09:40 01/01/25 10:22 Rocephin 1 Gm/Ns 50 Ml IVPB 100 mls/hr QAM YODIT Administration Ipratropium [place] 0.5 mg 12/29/24 12:00 01/02/25 03:22 Ipratropium Br 0.02% Inh Soln 0.5 Mg/2.5 Ml Vial INHALATION Not Given Q4HRT YODIT Levofloxacin 750 mg 12/28/24 06:00 01/01/25 06:09 Levofloxacin 750 Mg Tablet PO 750 mg Q48H YODIT Administration Lidocaine 1 patch 12/31/24 11:55 01/01/25 08:58 Lidocaine 5% Patch TRANSDERM 1 patch DAILY YODIT Administration Magnesium Hydroxide 30 ml 12/28/24 14:40 Magnesium Hydroxide Susp 30 Ml Udc PO HS PRN Constipation Melatonin 5 mg 12/28/24 14:40 01/01/25 20:47 Melatonin 5 Mg Tablet PO 5 mg HS PRN Administration Insomnia Metoprolol Tartrate 100 mg 12/28/24 21:00 01/01/25 20:47 Metoprolol Tartrate 50 Mg Tab PO 100 mg Q12HR YODIT Administration Montelukast Sodium 10 mg 12/29/24 09:00 01/01/25 08:57 Montelukast Sodium 10 Mg Tablet PO 10 mg DAILY YODIT Administration Pantoprazole Sodium 40 mg 12/28/24 21:00 01/01/25 20:47 Pantoprazole 40 Mg Tablet PO 40 mg Q12HR YODIT Administration Prednisone 40 mg 12/30/24 09:05 01/01/25 08:56 Prednisone 20 Mg Tablet PO 40 mg DAILY@0800 YODIT Administration Quetiapine Fumarate 25 mg 12/28/24 21:00 01/01/25 20:47 Quetiapine Fumarate 25 Mg Tablet PO 25 mg HS YODIT Administration Ropinirole HCl 4 mg 12/28/24 21:00 01/01/25 20:46 Ropinirole Hcl 1 Mg Tablet PO 4 mg HS YODIT Administration Topiramate 200 mg 12/28/24 21:00 01/01/25 20:47 Topiramate 100 Mg Tablet PO 200 mg Q12HR YODIT Administration Trazodone HCl 50 mg 12/28/24 21:00 01/01/25 20:46 Trazodone Hcl 50 Mg Tablet PO 50 mg HS YODIT Administration Trazodone HCl 50 mg 05/08/25 15:16 Trazodone Hcl 50 Mg Tablet PO HS PRN Insomnia Radiology Results: ITS Impressions Chest X-Ray 12/28/24 05:22 Impression: Probable chronic interstitial disease with basilar predominance. Chest CT 12/28/24 15:42 IMPRESSION: No cross-sectional imaging evidence to suggest the presence of pneumonia. Bibasilar atelectasis, unchanged from a recent radiograph, as detailed above.. Labs Labs: Laboratory Results - last 24 hr 12/29/24 01/01/25 01/02/25 12:15 09:14 04:25 WBC 14.1 H RBC 3.81 L Hgb 10.0 L Hct 34.5 L MCV 90.6 MCH 26.2 MCHC 29.0 L RDW 14.6 H Plt Count 260 MPV 9.4 Sodium 136 L Potassium 3.4 Chloride 93 L Carbon Dioxide 39 H Anion Gap 4 BUN 28 H Creatinine 1.46 H Estim Creat Clear Calc 44 Estimated GFR 36 L Glucose 107 Calcium 9.1 NT-Pro-B Natriuret Pep 859 H Urine Color Yellow Urine Appearance Clear Urine pH 7.0 Ur Specific [place] 1.009 Urine Protein Negative Urine Glucose (UA) Negative Urine Ketones Negative Ur Blood (Man) Negative Urine Nitrate Negative Urine Bilirubin Negative Urine Urobilinogen 0.2 Leukocyte Esterase Rfl Trace H Urine RBC 0-2 Urine WBC 0-5 Ur Squamous Epith Cells None seen Urine Bacteria None seen Urine Casts 0-2 Ur L.pneumophila Ag Not detected Urine Pneumococcal Ag Not detected
--- NOTE | 2025-01-02 09:09 | P.PNIM_ITS ---
Progress Note: A&P Assessment and Plan (1) Acute exacerbation of chronic obstructive pulmonary disease: Code(s): J44.1 - Chronic obstructive pulmonary disease with (acute) exacerbation Status: Acute Assessment and Plan: * Pulmonology following * IV Steroids 20 mg q 6h * Levaquin 750 mg daily * Continue BiPap to blow off CO2 * Trend labs and VS * Awaiting results of CXR * duonebs prn * urine for strep pneumo, mycoplasma and legionella ordered * will order chest physio therapy * continue mucine * * 12/30- prednisone 40 mg po daily per pulm. day 3 of steroids today * 12/31 abg worse on bipap 15/5,28%. will use 20/5, 32% tonight with repeat abg in am and apnea link overnight. stop solumedrol and start prednisone 40 mg po starting today. Pulm continues to follow * -will add lidocaine to be applied to chest as needed for pain from coughing * * 01/01 abg: co2 64.2, o2 73.6, hco3 36.9. BIpap setting for notigh: r20 20/5, 32% fio2 per pulm order. * continue to monitor * 01/02- Today is day 6 of prednisone- last day. Continue ipratropium q.4 hours. Patient is on Levaquin day 6. O2 goal saturation 90-94% (2) Iron deficiency anemia: Code(s): D50.9 - Iron deficiency anemia, unspecified Status: Chronic Assessment and Plan: * Continue home meds once they are confirmed. * Monitor and trend CBC. (3) Atrial fibrillation: Code(s): I48.91 - Unspecified atrial fibrillation Status: Chronic Assessment and Plan: * Telemetry * Continue home meds once confirmed. * NSR. (4) Acute on chronic congestive heart failure: Code(s): I50.9 - Heart failure, unspecified Status: Chronic Assessment and Plan: * Chronic heart failure * Last ECHO showing normal LVSF w/EF of 60-65% on 12/02/24. * Daily weight * Accurate Intake and output (5) Insomnia: Code(s): G47.00 - Insomnia, unspecified Status: Acute Assessment and Plan: insomnia- melatonin doesnot help much added trazadone 12/29- helped-will continue avoid atarax - wants dose increase as didnot help much last night -will increase to 100 mg and monitor (6) Hallucination: Code(s): R44.3 - Hallucinations, unspecified Status: Acute Assessment and Plan: reported to RN yesterday- was too embarrassed to discuss it CT was done last night- no acute events pt reports that she had same symptoms before -same kinds of hallucinations and had UTI. Will collect UA and start treatment for UTI now and monitor closely. 01/02 reports improvement Time Spent With Patient Time with patient: 25 - 35 minutes Subjective Date/time seen: 01/02/25 09:09 Interval history: 64 year old female pt with PMH of A-fib off of Eliquis for two years secondary to abdominal rectal sheath hematoma, COPD, Diastolic dysfunction, anemia, GERD, CVA and HF came to the ER from home with complaints of feeling fatigued and dyspneic. She was recently admitted and was just discharged on 12/08/24 w/acute COPD exacerbation. She was determined to need 5L oxygen per nocturnal oximetry and completed abx and discharged to follow up with [facility] as outpt as well as Cardiology as outpt. Patient is a former smoker that quit 2021, she does not use alcohol or any illicit drugs. Patient was recently treated with steroids at the time of discharge. She denies any chest pain but is very fatigued and difficult to awaken. She was requiring BiPAP to maintain her saturations. 12/29/2024: Pt is seen and examined. Patient states she had a bad night and she is not feeling much better. She is c/o cough. She is on 4 L nasal cannula saturations 94%. Patient tempted to wear the full face mask with the AVAPS settings -managed per pulm, but she could not sleep well. she is willing to try it again tonight. Patient received a Xopenex treatment and had a heart rate 160 that decreased on its own. Pt is seen and examined today. she is calm and comfortable. no pain. feels like it is hard for her to bring phlegm up. HR had been controlled and stable. 12/30- pt is seen and examine. she slept better and her breathing is better as well. easier to cough. remains on oxygen. 12/31 - seen and examined during morning rounds. chest discomfort from coughing. did not have a good night )different BIPap setting were used- as dictated per insurance- as pt has to meet certain threshold in order to qualify for bipap for home use) 01/01 reported to RN yesterday evening that she was hallucinating. abg repeated. she was alert and appropriate. pt reports that this is not new to her. She had same hallucinations in the past and ended up being dx with UTI. she is alert, oriented, in no distress. 01/02 feeling overall better today. Day 6 of prednisone -last day. on ipratropium q.4 hours. Patient is on Levaquin day 6. She is on ceftriaxone day 2 for UTI. pulm following.did not sleep good last night, wants trazadone dose increased. Review of Systems Review of Systems: All systems reviewed & are unremarkable except as noted in HPI and below Exam Const: General: comfortable Other: Obese, somnolent HENMT: Face/Nose/Sinus: Normal nares present Mouth: Yes dry mucous membranes Eyes: General: appearance normal, both eyes and all related structures Sclera: sclerae normal Pupils: Equal, round and reactive pupils present EOM: EOMs intact bilaterally Neck: Neck: supple and no JVD Lymphatic: lymphadenopathy not noted Chest: Other: not tender Resp: Effort & Inspection: abnormal respiratory effort (Increased effort) Auscultation: diminished lung sounds bilateral (Bases) Other: scattered wheezing Cardio: Rate: regular rate Rhythm: regular rhythm Heart sounds: no gallops, no murmurs and no rubs GI: Inspection: non-distended Auscultation: normal bowel sounds Skin: General skin exam: No normal color (pale), No lesion and No rashes Lesions: no lesions noted Rashes: no rashes noted Wounds: no wounds Neuro: Cranial nerves: Yes Equal, round and reactive pupils present Speech: normal speech Motor exam (neuro): Abnormal motor strength present (Generalized weakness) Extrem: General: edema Other: BLE edema. Not pitting Psych: Mental Status: mental status grossly normal Affect: normal affect Objective Data Vital Signs Vital Signs: Vital Signs - 24 hr 01/01/25 11:31 01/01/25 11:40 01/01/25 12:41 Temperature 98.1 F Pulse Rate 57 L 59 L 64 Respiratory Rate 16 16 Blood Pressure 118/92 H Pulse Oximetry 94 Oxygen Delivery Oxygen Flow Rate 01/01/25 15:49 01/01/25 16:00 01/01/25 16:00 Temperature 96.4 F L Pulse Rate 61 59 L 62 Respiratory Rate 16 16 18 Blood Pressure 121/41 L Pulse Oximetry 96 Oxygen Delivery Oxygen Flow Rate 01/01/25 19:59 01/01/25 20:47 01/01/25 20:47 Temperature Pulse Rate 65 Respiratory Rate 16 Blood Pressure Pulse Oximetry 96 Oxygen Delivery Nasal Cannula Oxygen Flow Rate 3 01/01/25 20:56 01/01/25 22:15 01/02/25 05:45 Temperature 97.2 F L 97.1 F L Pulse Rate 61 65 59 L Respiratory Rate 20 20 20 Blood Pressure 120/52 L 113/47 L Pulse Oximetry 96 96 91 Oxygen Delivery BiPAP Oxygen Flow Rate 01/02/25 08:52 01/02/25 08:52 01/02/25 09:04 Temperature Pulse Rate 63 67 Respiratory Rate 20 20 Blood Pressure Pulse Oximetry 91 Oxygen Delivery Nasal Cannula Oxygen Flow Rate 3 Intake/Output Intake/Output: Intake & Output 12/30/24 12/31/24 01/01/25 01/02/25 23:59 23:59 23:59 23:59 Intake Total 3290 955 2440 740 Output Total 2700 2600 2950 800 Balance 590 -1645 -510 -60 Meds/Results Medications: Active Medications Generic Name Dose Route Start Last Admin Trade Name Freq PRN Reason Stop Dose Admin Hydrocodone Bitart/Acetaminophen 1 tab 12/31/24 09:42 12/31/24 10:10 Hydrocodone/Acetaminophen (*Crx) 5-325 Mg Tablet PO 1 tab Q4H PRN Administration Pain Rated 4-6 Amiodarone HCl 200 mg 12/29/24 09:00 01/01/25 08:56 Amiodarone Hcl 200 Mg Tablet PO 200 mg DAILY YODIT Administration Amitriptyline HCl 10 mg 12/28/24 21:00 01/01/25 20:46 Amitriptyline Hcl 10 Mg Tablet PO 10 mg HS YODIT Administration Duloxetine HCl 40 mg 12/28/24 17:00 01/01/25 17:01 Duloxetine Hcl 20 Mg Capsule.Dr PO 40 mg BID YODIT Administration Escitalopram Oxalate 20 mg 12/28/24 15:30 01/01/25 08:57 Escitalopram Oxalate 10 Mg Tablet PO 20 mg DAILY YODIT Administration Ferrous Sulfate 325 mg 12/28/24 17:00 01/01/25 17:01 Ferrous Sulfate [address] BY MOUTH 325 mg BID YODIT Administration Furosemide 20 mg 12/28/24 17:00 01/01/25 17:01 Furosemide 20 Mg Tablet PO 20 mg BID YODIT Administration Guaifenesin 1,200 mg 12/28/24 21:00 01/01/25 20:47 Guaifenesin 12 Hr 600 Mg Tabcr PO 1,200 mg Q12HR YODIT Administration Ceftriaxone Sodium 1 gm in 50 mls @ 100 mls/hr 01/01/25 09:40 01/01/25 10:22 Rocephin 1 Gm/Ns 50 Ml IVPB 100 mls/hr QAM YODIT Administration Ipratropium [place] 0.5 mg 12/29/24 12:00 01/02/25 08:50 Ipratropium Br 0.02% Inh Soln 0.5 Mg/2.5 Ml Vial INHALATION 0.5 mg Q4HRT YODIT Administration Levofloxacin 750 mg 12/28/24 06:00 01/01/25 06:09 Levofloxacin 750 Mg Tablet PO 750 mg Q48H YODIT Administration Lidocaine 1 patch 12/31/24 11:55 01/01/25 08:58 Lidocaine 5% Patch TRANSDERM 1 patch DAILY YODIT Administration Magnesium Hydroxide 30 ml 12/28/24 14:40 Magnesium Hydroxide Susp 30 Ml Udc PO HS PRN Constipation Melatonin 5 mg 12/28/24 14:40 01/01/25 20:47 Melatonin 5 Mg Tablet PO 5 mg HS PRN Administration Insomnia Metoprolol Tartrate 100 mg 12/28/24 21:00 01/01/25 20:47 Metoprolol Tartrate 50 Mg Tab PO 100 mg Q12HR YODIT Administration Montelukast Sodium 10 mg 12/29/24 09:00 01/01/25 08:57 Montelukast Sodium 10 Mg Tablet PO 10 mg DAILY YODIT Administration Pantoprazole Sodium 40 mg 12/28/24 21:00 01/01/25 20:47 Pantoprazole 40 Mg Tablet PO 40 mg Q12HR YODIT Administration Prednisone 40 mg 12/30/24 09:05 01/01/25 08:56 Prednisone 20 Mg Tablet PO 01/02/25 12:00 40 mg DAILY@0800 YODIT Administration Quetiapine Fumarate 25 mg 12/28/24 21:00 01/01/25 20:47 Quetiapine Fumarate 25 Mg Tablet PO 25 mg HS YODIT Administration Ropinirole HCl 4 mg 12/28/24 21:00 01/01/25 20:46 Ropinirole Hcl 1 Mg Tablet PO 4 mg HS YODIT Administration Topiramate 200 mg 12/28/24 21:00 01/01/25 20:47 Topiramate 100 Mg Tablet PO 200 mg Q12HR YODIT Administration Trazodone HCl 50 mg 12/28/24 21:00 01/01/25 20:46 Trazodone Hcl 50 Mg Tablet PO 50 mg HS YODIT Administration Trazodone HCl 50 mg 12/29/24 15:16 Trazodone Hcl 50 Mg Tablet PO HS PRN Insomnia Radiology Results: ITS Impressions Chest X-Ray 12/28/24 05:22 Impression: Probable chronic interstitial disease with basilar predominance. Chest CT 12/28/24 15:42 IMPRESSION: No cross-sectional imaging evidence to suggest the presence of pneumonia. Bibasilar atelectasis, unchanged from a recent radiograph, as detailed above.. Labs Labs: Laboratory Results - last 24 hr 12/29/24 01/01/25 01/02/25 12:15 09:14 04:25 WBC 14.1 H RBC 3.81 L Hgb 10.0 L Hct 34.5 L MCV 90.6 MCH 26.2 MCHC 29.0 L RDW 14.6 H Plt Count 260 MPV 9.4 Sodium 136 L Potassium 3.4 Chloride 93 L Carbon Dioxide 39 H Anion Gap 4 BUN 28 H Creatinine 1.46 H Estim Creat Clear Calc 44 Estimated GFR 36 L Glucose 107 Calcium 9.1 NT-Pro-B Natriuret Pep 859 H Urine Color Yellow Urine Appearance Clear Urine pH 7.0 Ur Specific [place] 1.009 Urine Protein Negative Urine Glucose (UA) Negative Urine Ketones Negative Ur Blood (Man) Negative Urine Nitrate Negative Urine Bilirubin Negative Urine Urobilinogen 0.2 Leukocyte Esterase Rfl Trace H Urine RBC 0-2 Urine WBC 0-5 Ur Squamous Epith Cells None seen Urine Bacteria None seen Urine Casts 0-2 Ur L.pneumophila Ag Not detected Urine Pneumococcal Ag Not detected Quality VTE Prophylaxis VTE prophylaxis: mechanical ordered
[2025-01-02] MEDS: PANTOPRAZOLE 40 MG TABLET PO ×2 (09:31→20:29)
[2025-01-02] MEDS: METOPROLOL TARTRATE 50 MG TAB 100 MG PO ×2 (09:31→20:32)
[2025-01-02] MEDS: FERROUS SULFATE 325 MG TABLET DR BY MOUTH ×2 (09:31→16:11)
[2025-01-02] MEDS: TOPIRAMATE 100 MG TABLET 200 MG PO ×2 (09:31→20:29)
[2025-01-02] MEDS: DULoxetine HCL 20 MG CAPSULE.DR 40 MG PO ×2 (09:31→16:11)
[2025-01-02] MEDS: AMIODARONE HCL 200 MG TABLET PO (09:31)
[2025-01-02] MEDS: MONTELUKAST SODIUM 10 MG TABLET PO (09:32)
[2025-01-02] MEDS: guaiFENesin 12 HR 600 MG TABCR 1200 MG PO ×2 (09:32→20:28)
[2025-01-02] MEDS: FUROSEMIDE 20 MG TABLET PO ×2 (09:32→16:12)
[2025-01-02] MEDS: ESCITALOPRAM OXALATE 10 MG TABLET 20 MG PO (09:32)
[2025-01-02] MEDS: predniSONE 20 MG TABLET 40 MG PO (09:32)
[2025-01-02] MEDS: rOPINIRole HCL 1 MG TABLET 4 MG PO (20:28)
[2025-01-02] MEDS: traZODone HCL 50 MG TABLET 100 MG PO (20:29)
[2025-01-02] MEDS: QUEtiapine FUMARATE 25 MG TABLET PO (20:29)
[2025-01-02] MEDS: MELATONIN 5 MG TABLET PO (20:29)
[2025-01-02] MEDS: AMITRIPTYLINE HCL 10 MG TABLET PO (20:29)
[2025-01-03] VITALS (17 sets, daily range): BP systolic 102–147; BP diastolic 44–88; PULSE 51–70; RESP 14–23; TEMP 36.1–36.7; O2SAT 92–99
--- NOTE | 2025-01-03 01:46 | PCRCNOTE ---
Addendum entered by Cheryl Arciniega, [employer] 01/03/25 07:08: 0000 and 0400 tx omitted due to apena link testing Original Note: 0000 treatment omitted due to apnea link testing
[2025-01-03] MEDS: IPRATROPIUM BR 0.02% INH SOLN 0.5 MG/2.5 ML VIAL INHALATION ×5 (04:00→20:00)
[2025-01-03] MEDS: levoFLOXacin 750 MG TABLET PO (05:44)
[2025-01-03 05:46] LABS: Alveolar/Arterial O2 Gradient 84.9 mmHg; Base Excess ABG 3.4 mEq/l (+/-2.0); Fractional Inspired Oxygen 32 %; HCO3 ABG 30.3 mEq/l (22.0-26.0); Oxygen Saturation ABG 94.9 % (95.0-100.0); Oxyhemoglobin 94.5 % THb (90.0-100.0); PCO2 ABG 55.4 mmHg (35.0-45.0); PO2 ABG 78.4 mmHg (80.0-100.0); PO2 FiO2 Ratio Arterial Blood 2.45 %; Total Hemoglobin 14.3 g/dL (12.0-18.0); pH ABG 7.356 (7.350-7.450)
[2025-01-03 06:41] LABS: Hematocrit 37.6 % (37.0-47.0); Hemoglobin 10.9 g/dL (12.0-15.0); Mean Corpuscular Hemoglobin 26.1 pg (26-34); Mean Platelet Volume 9.5 fl (7.4-10.4); Platelet Count Result 308 k/mm3 (150-375); Red Blood Count 4.18 M/mm3 (4.2-5.4); Red Cell Distribution Width 14.6 % (11.5-14.5); White Blood Count 15.7 K/mm3 (4.5-10.0)
[2025-01-03 06:51] LABS: Anion Gap 6 mmol/L (4-12); Blood Urea Nitrogen 29 mg/dL (7-17); Carbon Dioxide 37 mmol/L (22-30); Chloride 94 mmol/L (98-107); Estimated CRCL calculation 45 ml/min; Estimated Glomerular Filt Rate 37; Glucose 129 mg/dL (65-110); Potassium 3.5 mmol/L (3.4-5.0); Sodium 137 mmol/L (137-145)
[2025-01-03 07:04] LABS: Device BIPAP; Modified Allen's Test Pass; Site Drawn LEFT RADIAL
[2025-01-03 07:05] LABS: Expiratory Pressure 5 cmH2O; Inspiratory Pressure 20 cmH2O
--- NOTE | 2025-01-03 07:12 | PCRCNOTE ---
Apnea link testing done bipap settings. Test to be repeated tonight 01/03.
[2025-01-03] MEDS: FUROSEMIDE 20 MG TABLET PO ×2 (08:54→17:36)
[2025-01-03] MEDS: guaiFENesin 12 HR 600 MG TABCR 1200 MG PO ×2 (08:54→20:31)
[2025-01-03] MEDS: MONTELUKAST SODIUM 10 MG TABLET PO (08:54)
[2025-01-03] MEDS: AMIODARONE HCL 200 MG TABLET PO (08:54)
[2025-01-03] MEDS: DULoxetine HCL 20 MG CAPSULE.DR 40 MG PO ×2 (08:54→17:36)
[2025-01-03] MEDS: TOPIRAMATE 100 MG TABLET 200 MG PO ×2 (08:55→20:34)
[2025-01-03] MEDS: METOPROLOL TARTRATE 50 MG TAB 100 MG PO ×2 (08:55→20:34)
[2025-01-03] MEDS: ESCITALOPRAM OXALATE 10 MG TABLET 20 MG PO (08:55)
[2025-01-03] MEDS: FERROUS SULFATE 325 MG TABLET DR BY MOUTH ×2 (08:55→17:35)
[2025-01-03] MEDS: LIDOCAINE 5% PATCH 1 PATCH TRANSDERM (08:55)
[2025-01-03] MEDS: PANTOPRAZOLE 40 MG TABLET PO ×2 (08:55→20:31)
--- NOTE | 2025-01-03 09:40 | PM.PNPUL ---
Progress Note: A&P Assessment and Plan (1) Chronic obstructive pulmonary disease: Code(s): J44.9 - Chronic obstructive pulmonary disease, unspecified Status: Chronic Assessment and Plan: Regarding her COPD, 50 pack year tobacco use, quit 08/23/2022, alpha 1 anti trypsin genotype MZ, alpha 1 anti trypsin level 134, normal. The patient has been on oxygen for the last 5 years. I have no PFTs. She is using 5 L at rest with home saturations 92-96%. First CT scan in our system is from 08/27/2022 shows mild apical predominant centrilobular emphysema. Repeat CT angiogram of the chest on 12/02/2024 demonstrates mild apical predominant centrilobular emphysema. Patient is maintained on trelegy inhaler but she does not use a because of the taste. Patient takes Trelegy 100, montelukast 10 and albuterol p.r.n.. Patient tells me she wheezes every day when she takes rescue albuterol at home it relieves her wheezing for 1-2 minutes. 12/01/2024: White blood cell count 14.8, eosinophils 0.6%= 89 per micro L. patient presents with shortness of breath, no change in phlegm production or color, worsening shortness of breath and hypoxemic respiratory failure. Patient treated with bronchodilators, steroids and BiPAP. 12/28/24: The patient tells me that the day after she left the hospital she started getting worse with fatigue and then worsening oxygenation about 5 days ago. On her prescribed 2 L her saturations were in the 80s and then as low as 79%. She denied fever, chills, rigors. She had a dry cough with no phlegm and no hemoptysis. Currently says she is improved and breathing 50% back to her normal but she feels still feels tired and short of breath. The patient told me she had improved and could come off of the mask and she was placed on 3 L nasal cannula with saturations 91% Plan: Will continue treatment for possible COPD exacerbation. Patient has wheezing but has wheezing every day. I will decrease her Solu-Medrol to 20 mg IV q.6 hours. Continue DuoNebs q.6 hours. Patient is on levofloxacin for possible pneumonia and bronchitis. I will obtain a D-dimer and if positive will get a CT angiogram of the chest. If negative will get a CT scan of the chest looking for focal infiltrates consistent with a pneumonia. Goal saturation 90-94%, Adjust oxygen accordingly. Will add guaifenesin 1200 mg p.o. b.i.d. Later in the day patient had a CT scan of the chest with moderate apical predominant centrilobular emphysema and bibasilar atelectasis with no evidence of pneumonia. 12/29/2024: Patient states she had a bad night and his breathing worse today. Her cough is increased with no phlegm and no blood. She is afebrile. White blood cell count 15.2, creatinine 1.61. Currently patient is on 4 L nasal cannula saturations 94%. Patient received a Xopenex treatment and had a heart rate 160 that decreased on its own and required no medical intervention. Plan: I will continue Solu-Medrol 20 mg IV q.6. I will discontinue her levalbuterol due to the tachy arrhythmia increase her ipratropium nebulizers to q.4 hours. No evidence of pneumonia. Will treat for tracheobronchitis with Levaquin 750 mg p.o. q.48h, day 2. Continue guaifenesin 12 50 b.i.d., montelukast 10. Patient is on Lasix 20 p.o. b.i.d.. 12/30/24: Patient tells me she is having a better day today. She says that her breathing is 75% back to her normal. Her cough is improved but increased from baseline. She has no phlegm and no hemoptysis. She is afebrile. Her weight today is 112.7 kg. Patient wore the hospital noninvasive ventilator with the AVAPS mode and said that she slept well. Plan: I will change the patient to prednisone 40 mg p.o. q.day, Day 3 of steroids. I will continue ipratropium nebulizers q.4 hours. Continue montelukast 10 q day and guaifenesin 1200 p.o. b.i.d.. continue Levaquin for tracheobronchitis, day 3. Encouraged her out of bed to chair, ambulation as tolerated, physical therapy has been ordered on 12/29/2024. Respiratory pathogen panel, urine Legionella, urine pneumococcal antigen pending. pulmonary inpatient services will resume on 01/02/2025, call with questions. 01/03/2024 patient states that she is breathing 75% back to her normal. Her dyspnea on exertion is back at her normal. His cough is persistent but improved. She is afebrile. White blood cell count 14.1, creatinine 1.46. Her weight is 114. Her currently the patient is on 3 L with saturation 95%. Patient wore the hospital BiPAP with a rate of 20 pressures 20/5 and 32% FiO2 and said that she could not sleep last night because the pressure was too high and the machine had a loud leak and kept her up. BNP 859 which is increased from 563. Continue Lasix 20 p.o. b.i.d.. Plan: Patient continues to improve. Today is day 6 of prednisone and will discontinue after today's dose. Continue ipratropium q.4 hours. Patient is on Levaquin day 6. She is on ceftriaxone day 2 for UTI. Goal saturation 90-94%, adjust oxygen accordingly. 01/04/2024: Patient tells me she is breathing worse today. She says her cough is more persistent and heavier, remains dry with no phlegm. Her breathing is worse. She is able to walk with physical therapy yesterday and did well. White blood cell count 15.7, creatinine 1.42. Respiratory pathogen panel is negative. Plan. Patient worse today and will restart prednisone 40. Her respiratory pathogen panel is negative. I will obtain a modified barium swallow. Will begin Tessalon Perles 200 t.i.d. standing. Will start levalbuterol 0.63 mcg q.4 hours to see if this will provide some relief. Patient remains on Lasix 20 p.o. b.i.d. she is status post 7 days of levofloxacin and now on ceftriaxone for UTI, day 2. Continue guaifenesin 1200 q.12 hours, Vest therapy, montelukast. Patient is on metoprolol 100 q.12 hours as well as amiodarone 200, Discussed with Nicky Rock. Will follow with you. (2) Chronic hypercapnic respiratory failure: Code(s): J96.12 - Chronic respiratory failure with hypercapnia Status: Acute Assessment and Plan: Last admission 12/02/2024 to 12/08/2024) patient presented with hypercarbic respiratory failure with ABG 7.33/65/103 and serum bicarb > 40. 12/28/2024: She again presents with shortness of breath, hypoxemic and hypercarbic respiratory failure. Current venous blood gas listed as room air 7.33/72/ 43. Patient has chronic hypercarbic respiratory failure from her COPD with a room air blood gas of 7.33/72/43 (venous) and a serum bicarbonate greater than 37. She would benefit from a noninvasive ventilation as this is her 2nd hospitalization in the last month for hypercarbic respiratory failure. noninvasive ventilation would prevent further hospitalizations and deterioration. Patient was placed on BiPAP With no rate and pressures 15/5 with 28% with blood gas of 7.37/64/69. Patient was then placed on BiPAP with no rate and pressure 20/5 and 32% with a blood gas of 7.38/64/74. [employer] on these settings demonstrated adequate oxygenation. Patient was then placed on BiPAP rate of 20 pressures 20/5 and she said she could not tolerate these settings as it was too much pressure, high leak and she could not sleep at night. I will initiate the process for a home noninvasive ventilator with the AVAPS mode through her [employer] company, oxygen DME is [employer] who we will use. The patient told me she had improved and could come off of the mask and she was placed on 3 L nasal cannula with saturations 91% 12/28/24: Currently the patient is on BiPAP rate of 18, pressures 14/8 with 40% FiO2. Patient told me these settings were uncomfortable for her and I changed them to noninvasive ventilation with the AVAPS mode rate of 14, tidal volume 500, EPAP 5, minimal inspiratory pressure 6, maximal inspiratory pressure 25, inspiratory time 1.0, rise of 1 which is the fastest and 40% FiO2. She said this was more comfortable. The patient told me she had improved and could come off of the mask and she was placed on 3 L nasal cannula with saturations 91%. Plan: noninvasive ventilation with the AVAPS mode p.r.n. during the day. I recommend she wear this tonight. After she has improved will repeat ABG during the day. 12/29/24: Patient attempted to wear the fullface mask with the AVAPS settings as above and she did wear the mask but she could not sleep. plan: Patient says she will try to wear the AVAPS again tonight. I told her if she can not sleep with the mask on that she needs to take the mask off so that she can try to sleep. 12/30/24: Patient wore the hospital noninvasive ventilator with the AVAPS mode and said that she slept well. Plan: Patient tells me she still requires breathing support at night. If the patient qualifies for ventilatory support with a home machine it will need to be BiPAP with no rate. [facility] will place the patient on BiPAP no rate, pressures 15/5 and 28% FiO2 with overnight oximetry and ABG in the morning. 12/31/24: Patient wore a hospital BiPAP with no rate pressures 15/5 with 28% with blood gas the next morning 7.37/64/69 and overnight oximetry with hypoxia. 01/02/2024: Patient wore the hospital BiPAP with no rate pressures 20/5 with 32% a blood gas of 7.38/64/74 and overnight oximetry with adequate saturations. 01/03/2024 Patient wore the hospital BiPAP with a rate of 20 pressures 20/5 and 32% FiO2 and said that she could not sleep last night because the pressure was too high and the machine had a loud leak and kept her up. Plan: I will place the patient on noninvasive ventilation with the AVAPS mode rate of 14, tidal volume 500, EPAP 5, minimum inspiratory pressure 6, maximum inspiratory pressure 25, inspiratory time 1.0, rise of 1 and 32% FiO2. I will obtain an overnight oximetry and ABG on these settings. I will initiate home noninvasive ventilation through [facility] and her insurance [facility]. Later in the day filled out a home noninvasive ventilator form for [facility] through [facility] insurance for IVAPS with AE: Rate 14, tidal volume 500, minimum EPAP 5, maximum EPAP 15, minimum pressure support 6, maximum pressure support 25, 3 L bleed in. 01/03/25: Patient wore the hospital machine BiPAP rate of 20, pressures 20/5, inspiratory time 1, rise of 3 and 32% FiO2. She said she had a difficult time sleeping in the mask did not fit with a large leak. Overnight oximetry on these settings with recording duration of 7 hours and 40 minutes, average saturation 94%. Low saturation 63%. Time with saturation less than or equal to 88% 6 minutes, oxygen desaturation index 5.1. ABG 7.36/55/78. Plan: Waiting to hear back from his DME [employer] regarding a home machine. tonight AVAPS mode rate of 14, tidal volume 500, EPAP 5, minimum inspiratory pressure 6, maximum inspiratory pressure 25, inspiratory time 1.0, rise of 1 and 32% FiO2. I will obtain an overnight oximetry and ABG on these settings. Subjective Date/time seen: 01/03/25 09:40 Interval history: 12/28/2024: This is a new pulmonary consult for COPD exacerbation. 64-year-old with a history of AFib off anticoagulation for 2 years secondary to abdominal rectal sheath hematoma, diastolic dysfunction, GERD, HTN, restless legs syndrome, anxiety and COPD with chronic hypoxemic respiratory failure on 5 L at Night and 2 L with rest and activity per home O2 assessment on 12/08/2024. I previously saw the patient as an inpatient on 12/02/2024 when she was admitted for COPD exacerbation. Regarding her COPD, 50 pack year tobacco use, quit 08/23/2022, alpha 1 anti trypsin genotype MZ, alpha 1 anti trypsin level 134, normal. The patient has been on oxygen for the last 5 years. I have no PFTs. She is using 5 L at rest with home saturations 92-96%. First CT scan in our system is from 08/27/2022 shows mild apical predominant centrilobular emphysema. Repeat CT angiogram of the chest on 12/02/2024 demonstrates mild apical predominant centrilobular emphysema. Patient is maintained on trelegy inhaler but she does not use a because of the taste. Patient takes Trelegy 100, montelukast 10 and albuterol p.r.n.. Patient tells me she wheezes every day when she takes rescue albuterol at home it relieves her wheezing for 1-2 minutes. 12/01/2024: White blood cell count 14.8, eosinophils 0.6%= 89 per micro L. 12/02/2024 through 12/08/2024:? Presented to the emergency room with COPD exacerbation, hypercarbic and hypoxemic respiratory failure, AFib with RVR, and fluid overload.? Treated with BiPAP, steroids, bronchodilators, antibiotics, and diuretics.? CTA of the chest with no PE, mild apical predominant centrilobular emphysema, ?upper and lower extremity Dopplers negative for DVT.? Echocardiogram with LVEF 60-65%, RV was dilated with normal systolic function.? Left atrium normal, right atrium normal, RVSP 27. ?After she improved clinically on 12/06/2024: ABG on 5 L nasal cannula pH 7.39/48/97. ?Patient improved and was discharged on 12/08/24 on trelegy 100, rescue albuterol, montelukast 10, guaifenesin 600 b.i.d. p.r.n. congestion, no Lasix, amiodarone 200 b.i.d., metoprolol 100 q.12, she had completed 5 days of steroids in house and I did not recommend a discharge taper, however, the hospitalist discharge her on a 15 day prednisone taper. Required 2 L oxygen at rest and with activity per home O2 assessment and per overnight oximetry required 5 L NC when she naps or sleeps. ?12/08/24: creatinine 1.68. Her weight is 120.8 kg.? 12/28/2024: Presented to the emergency room with shortness of breath. blood pressure 136/117, heart rate 76, nasal cannula saturation 93%. Patient had wheezing throughout all lung paul. White blood cell count 13.4 with eosinophils 1.8%=241/ul. creatinine 1.34, serum bicarbonate 37, BNP 563. Venous blood gas listed as room air 7.33/72/ 43. patient placed on BiPAP, treated with bronchodilators, received IV steroids per EMS, lasix 40 IV. 12/28/24: Currently the patient is on BiPAP rate of 18, pressures 14/8 with 40% FiO2. Patient told me these settings were uncomfortable for her and I changed them to noninvasive ventilation with the AVAPS mode rate of 14, tidal volume 500, EPAP 5, minimal inspiratory pressure 6, maximal inspiratory pressure 25, inspiratory time 1.0, rise of 1 which is the fastest and 40% FiO2. She said this was more comfortable. The patient told me she had improved and could come off of the mask and she was placed on 3 L nasal cannula with saturations 91% The patient tells me that the day after she left the hospital she started getting worse with fatigue and then worsening oxygenation about 5 days ago. On her prescribed 2 L her saturations were in the 80s and then as low as 79%. She denied fever, chills, rigors. She had a dry cough with no phlegm and no hemoptysis. Currently says she is improved and breathing 50% back to her normal but she feels still feels tired and short of breath. Later in the day patient had a CT scan of the chest with moderate apical predominant centrilobular emphysema and bibasilar atelectasis with no evidence of pneumonia. 12/29/2024: Patient states she had a bad night and his breathing worse today. Her cough is increased with no phlegm and no blood. She is afebrile. White blood cell count 15.2, creatinine 1.61. Currently patient is on 4 L nasal cannula saturations 94%. Patient tempted to wear the fullface mask with the AVAPS settings as above and she did wear the mask but she could not sleep. Patient received a Xopenex treatment and had a heart rate 160 that decreased on its own and required no medical intervention. 12/30/24: Patient tells me she is having a better day today. She says that her breathing is 75% back to her normal. Her cough is improved but increased from baseline. She has no phlegm and no hemoptysis. She is afebrile. Her weight today is 112.7 kg. Patient wore the [facility] noninvasive ventilator with the AVAPS mode and said that she slept well. 12/31/24: Patient wore a hospital BiPAP with no rate pressures 15/5 with 28% with blood gas the next morning 7.37/64/69 and overnight oximetry with hypoxia. 01/02/2024: Patient wore the hospital BiPAP with no rate pressures 20/5 with 32% a blood gas of 7.38/64/74 and overnight oximetry with adequate saturations. 01/03/2024 patient states that she is breathing 75% back to her normal. Her dyspnea on exertion is back at her normal. His cough is persistent but improved. She is afebrile. White blood cell count 14.1, creatinine 1.46. Her weight is 114. Patient wore the hospital BiPAP with a rate of 20 pressures 20/5 and 32% FiO2 and said that she could not sleep last night because the pressure was too high and the machine had a loud leak and kept her up. Later in the day filled out a home noninvasive ventilator form for [employer] through [facility] insurance for IVAPS with AE: Rate 14, tidal volume 500, minimum EPAP 5, maximum EPAP 15, minimum pressure support 6, maximum pressure support 25, 3 L bleed in. 01/04/2024: Patient tells me she is breathing worse today. She says her cough is more persistent and heavier, remains dry with no phlegm. Her breathing is worse. She is able to walk with physical therapy yesterday and did well. White blood cell count 15.7, creatinine 1.42. Respiratory pathogen panel is negative. Patient wore the hospital machine BiPAP rate of 20, pressures 20/5, inspiratory time 1, rise of 3 and 32% FiO2. She said she had a difficult time sleeping in the mask did not fit with a large leak. Overnight oximetry on these settings with recording duration of 7 hours and 40 minutes, average saturation 94%. Low saturation 63%. Time with saturation less than or equal to 88% 6 minutes, oxygen desaturation index 5.1. ABG 7.36//. DATA: 12/28/24: CT chest CLINICAL INDICATION: Pneumonia suspected clinically COMPARISON: Reference is made to plain film evaluation of the chest, performed approximately 12 hours earlier and dating back to 12/05/2024. Reference is also made to a CT angiogram of the chest dated 10/20/2022 FINDINGS/OBSERVATIONS: Lung: bibasilar atelectasis, unchanged from chest radiograph. The remainder the lungs are clear. HEART: The heart is borderline enlarged, without pericardial effusion. MEDIASTINUM: Redemonstration of a large left thyroid nodule, increased in size from 2022 examination. No pathologically enlarged or morphologically suspicious lymph nodes are identified within the mediastinum, bilateral axilla, within the soft tissues of the anterior chest wall. SOFT TISSUES OF THE CHEST: Unremarkable. BONES OF THE CHEST: No acute fracture. No lytic or blastic lesions are identified. IMPRESSION: No cross-sectional imaging evidence to suggest the presence of pneumonia. Bibasilar atelectasis, unchanged from a recent radiograph, as detailed above.. 12/08/2024: Home O2 assessment: Rest room air saturation 87%. Rest nasal cannula 1 L saturation 88%. Rest nasal cannula saturation 93%. Exercise nasal cannula 2 L saturation 94%. Patient requires 2 L with rest and with activity. 12/07/24: Patient had an overnight oximetry on 5 L nasal cannula with recording duration of 6 hours and 58 minutes. Average saturation 98%. Low saturation 95%. Time with saturation less than or equal to 88% was 0 minutes. Oxygen desaturation index 0. 12/06/2024: ABG on 5 L nasal cannula pH 7.39/48/97. ? 12/02/2024: Alpha 1 anti trypsin genotype [place] MZ. 12/02/2024: Alpha 1 anti trypsin level 135, normal 83-199. 12/02/24: CTA chest PE protocol History: 64 years Female with . R/O PE . Findings: PULMONARY ARTERIES: No pulmonary embolus. VISUALIZED THORACIC INLET: Left thyroid nodule is noted. Ultrasound evaluation advised. MEDIASTINUM: Aorta/coronary arteries: Mild atheromatous disease. Heart/other: The heart is not enlarged. Lymph nodes: No mediastinal or hilar adenopathy. Precarinal lymph node measuring 1.6 cm noted. LUNGS: Atelectasis versus pneumonia seen in the right lung base inferiorly. Minimal atelectasis versus pneumonia in the left lung base is also noted. No pulmonary nodules or masses. No effusions. No pneumothorax. VISUALIZED UPPER abdomen: the visualized upper abdomen is normal. MUSCULOSKELETAL: Soft tissues: The superficial soft tissues are normal. Bones: Age appropriate degenerative changes of the spine. IMPRESSION: 1. No pulmonary embolism. 2. Bilateral basal atelectasis versus pneumonia. Clinical correlation advised. 12/02/2024: Echo Summary 1. The left ventricle is normal in size and systolic function. The left ventricular ejection fraction visually estimated to be 60-60%. 2. The right ventricle is dilated with normal systolic function. 3. There are no significant valvular abnormalities. 4. Technically difficult study. Left Ventricle The left ventricle is normal in size and systolic function. The left ventricular ejection fraction visually estimated to be 60-60%. Diastolic dysfunction is present. Right Ventricle The right ventricle is dilated with normal systolic function. Left Atria The left atrium is normal size. Right Atria The right atrium is normal size. RVSP 27 12/17/2023: CT Scan of the Chest without Contrast: Clinical Indication: Lung cancer screening, nicotine dependence COMPARISON: 04/06/2023 Findings: Stable enlarged left thyroid lobe. There is no evidence of any significant mediastinal, hilar or axillary lymphadenopathy. Atherosclerotic calcifications of the aorta are present. There is no evidence of pleural or pericardial effusion. There is irregular airspace opacity in the posterior right lower lobe, improved from prior exam, likely representing postinflammatory change, as there is a previous more extensive area of consolidation in this location. Mild emphysema. Images through the upper abdomen reveal no abnormalities. Impression: Lung RADS 2: Benign appearance. 12 month follow-up screening CT advised. 09/10/2022: Echo Summary 1. Technically difficult study with limited views. Regional wall motion assessment limited due to poor endomyocardial border definition despite definity contrast enhancement. 2. Left ventricular chamber dimension is normal. 3. Left ventricular systolic function is normal, estimated at 65-70%. 4. There is mildly increased left ventricular wall thickness. 5. Right ventricular chamber dimension is normal. 6. Right ventricular systolic function is moderately reduced. TAPSE 1.3. 7. There is trace tricuspid valve regurgitation. 8. Mild pulmonary hypertension, estimated pulmonary arterial systolic pressure is 37 mmHg. 9. Normal inferior vena cava with <50% collapse upon inspiration consistent with elevated right atrial pressure, 10 mmHg. 08/28/2022: Summary 1. Left ventricular chamber dimension is normal. 2. Left ventricular systolic function is normal, estimated at 60-65%. 3. The left ventricular diastolic function is grade I diastolic dysfunction. 4. Right ventricular chamber dimension is moderately enlarged. 5. Right ventricular systolic function is normal. 6. There is moderate tricuspid valve regurgitation, which may be underestimated due to the eccentricity of the jet. 7. Dilated inferior vena cava with no collapse upon inspiration consistent with elevated right atrial pressure, 15 mmHg. 8. Pulmonary hypertension with an estimated PASP of 59mmHg. Right Ventricle Right ventricular chamber dimension is moderately enlarged. Right ventricular systolic function is normal. Right Atria Right atrial chamber dimension is normal. Atrial Septum Intact interatrial septum visualized by color flow imaging. 08/27/2022: EXAMINATION: CT chest high resolution wo co DATE: 08/27/2022 16:07 INDICATION: respiratory failure TECHNIQUE: Computed tomography (CT) of the chest was performed without intravenous contrast. Automated exposure control and iterative reconstruction technique were employed. The dose-length product was 818.52 mGy-cm. COMPARISON: X-ray chest 08/27/2022 and CTA chest 07/21/2018. FINDINGS: CHEST: Endotracheal tube terminating 2.5 cm above the maria esther. Thoracic aorta: No significant dilation. Moderate arch calcification. Lung parenchyma and airways: Diffuse tree-in-bud opacities most evident in the right lung. Scattered centrilobular nodular opacities measuring up to 11 mm in the right upper lobe. Mild interlobular septal thickening. Bibasilar dependent opacities likely representing atelectasis. Mild emphysematous change. Thoracic inlet, axillae and chest wall: No thyroid or soft tissue mass. No axillary lymphadenopathy. Mediastinum: Mediastinal lymphadenopathy. Dilated central pulmonary arteries as can be seen with pulmonary arterial hypertension. Heart and pericardium: Normal heart size. Aortic valve calcification. No pericardial effusion. Coronary artery calcifications: Mild. Pleura: Trace bilateral pleural fluid. Upper abdomen: No significant finding. Thoracic bones: No acute osseous finding in the chest. IMPRESSION: 1. Tree-in-bud opacities as can be seen with atypical infection (including but not limited to: MAC, TB, fungal), ABPA, airways disease, and less likely aspiration. 2. Nodular opacity in right upper lobe should be followed after the appropriate therapy and cessation of symptoms to ensure resolution. 3. Mediastinal lymphadenopathy. 4. Trace bilateral pleural effusions. 5. Mild interstitial edema. Review of Systems Constitutional: Constitutional: Reports no additional constitutional complaints Eyes: Eyes: Reports no additional eye complaints ENT: Reports system reviewed and no additional complaints, except as documented Cardiovascular: Cardiovascular: Reports no additional cardiovascular complaints Respiratory: Respiratory: Reports no additional respiratory complaints Gastrointestinal: Gastrointestinal: Reports no additional gastrointestinal complaints Musculoskeletal: Musculoskeletal: Reports no additional musculoskeletal complaints Neurologic: Reports system reviewed and no additional complaints, except as documented Psychiatric: Psychiatric: Reports no additional psychiatric complaints Endocrine: Endocrine: Reports no additional endocrine complaints Hematologic/Lymphatic: Hematologic/Lymphatic: Reports no additional hematologic/lymphatic complaints Allergic/Immunologic: Allergic/Immunologic: Reports no additional allergic/immunologic complaints Exam Const: General: cooperative, healthy appearing and comfortable Orientation/consciousness: oriented to person, oriented to place and oriented to time HENMT: Head: normal to inspection Ears: hearing grossly normal bilaterally Eyes: General: appearance normal, both eyes and all related structures Neck: Neck: normal visual inspection Chest: Chest palpation & inspection: normal inspection of the chest Resp: Effort & Inspection: normal respiratory effort and able to speak in complete sentences Auscultation: no crackles, no rales, no rhonchi, no wheezes and diminished lung sounds Other: wheezes Cardio: Jugular venous distension: no JVD GI: Inspection: normal to inspection Skin: General skin exam: normal color Neuro: General: oriented to person, oriented to place and oriented to time Extrem: General: edema Other: Psych: Appearance: grossly normal Objective Data Vital Signs Vital Signs: Vital Signs - 24 hr 01/02/25 11:19 01/02/25 11:30 01/02/25 14:00 Temperature 36.1 C L Pulse Rate 85 83 62 Respiratory Rate 20 20 20 Blood Pressure 110/51 L Pulse Oximetry 97 Oxygen Delivery Oxygen Flow Rate Fraction of Inspired Oxygen 01/02/25 16:15 01/02/25 16:31 01/02/25 19:44 Temperature Pulse Rate 89 82 61 Respiratory Rate 20 20 16 Blood Pressure Pulse Oximetry Oxygen Delivery Oxygen Flow Rate Fraction of Inspired Oxygen 01/02/25 19:55 01/02/25 20:19 01/02/25 20:28 Temperature Pulse Rate 61 Respiratory Rate 16 Blood Pressure Pulse Oximetry 95 96 Oxygen Delivery Nasal Cannula BiPAP Oxygen Flow Rate 3 4 Fraction of Inspired Oxygen 01/02/25 20:30 01/02/25 20:32 01/02/25 22:03 Temperature 36.3 C L Pulse Rate 60 60 62 Respiratory Rate 20 21 H Blood Pressure 110/66 Pulse Oximetry 96 96 Oxygen Delivery BiPAP Oxygen Flow Rate Fraction of Inspired Oxygen 01/03/25 01:50 01/03/25 04:16 01/03/25 06:00 Temperature 36.1 C L Pulse Rate 62 57 L Respiratory Rate 20 20 Blood Pressure 147/44 H Pulse Oximetry 96 95 96 Oxygen Delivery BiPAP BiPAP Oxygen Flow Rate Fraction of Inspired Oxygen 32 01/03/25 07:15 01/03/25 08:19 01/03/25 08:25 Temperature Pulse Rate 51 L 55 L 60 Respiratory Rate 23 H 16 16 Blood Pressure Pulse Oximetry 98 Oxygen Delivery BiPAP Oxygen Flow Rate Fraction of Inspired Oxygen 01/03/25 08:54 01/03/25 08:55 Temperature Pulse Rate 60 60 Respiratory Rate Blood Pressure Pulse Oximetry Oxygen Delivery Oxygen Flow Rate Fraction of Inspired Oxygen Intake/Output Intake/Output: Intake & Output 12/31/24 01/01/25 01/02/25 01/03/25 23:59 23:59 23:59 23:59 Intake Total 955 2490 2770 450 Output Total 2600 2950 1300 900 Balance -1645 -460 1470 -450 Meds/Results Medications: Active Medications Generic Name Dose Route Start Last Admin Trade Name Freq PRN Reason Stop Dose Admin Hydrocodone Bitart/Acetaminophen 1 tab 12/31/24 09:42 12/31/24 10:10 Hydrocodone/Acetaminophen (*Crx) 5-325 Mg Tablet PO 1 tab Q4H PRN Administration Pain Rated 4-6 Amiodarone HCl 200 mg 12/29/24 09:00 01/03/25 08:54 Amiodarone Hcl 200 Mg Tablet PO 200 mg DAILY YODIT Administration Amitriptyline HCl 10 mg 12/28/24 21:00 01/02/25 20:29 Amitriptyline Hcl 10 Mg Tablet PO 10 mg HS YODIT Administration Benzonatate 200 mg 01/03/25 09:00 Benzonatate 100 Mg Capsule PO TID [facility] Duloxetine HCl 40 mg 12/28/24 17:00 01/03/25 08:54 Duloxetine Hcl 20 Mg Capsule.Dr PO 40 mg BID YODIT Administration Escitalopram Oxalate 20 mg 12/28/24 15:30 01/03/25 08:55 Escitalopram Oxalate 10 Mg Tablet PO 20 mg DAILY YODIT Administration Ferrous Sulfate 325 mg 12/28/24 17:00 01/03/25 08:55 Ferrous Sulfate [address] BY MOUTH 325 mg BID YODIT Administration Furosemide 20 mg 12/28/24 17:00 01/03/25 08:54 Furosemide 20 Mg Tablet PO 20 mg BID [facility] Administration Guaifenesin 1,200 mg 12/28/24 21:00 01/03/25 08:54 Guaifenesin 12 Hr 600 Mg Tabcr PO 1,200 mg Q12HR [facility] Administration Ceftriaxone Sodium 1 gm in 50 mls @ 100 mls/hr 01/01/25 09:40 01/03/25 08:55 Rocephin 1 Gm/Ns 50 Ml IVPB 100 mls/hr QAM [facility] Administration Ipratropium [place] 0.5 mg 12/29/24 12:00 01/03/25 08:16 Ipratropium Br 0.02% Inh Soln 0.5 Mg/2.5 Ml Vial INHALATION 0.5 mg Q4HRT [facility] Administration Levalbuterol HCl 0.63 mg 01/03/25 12:00 Levalbuterol Neb 1.25 Mg/3 Ml INHALATION Q4HRT [facility] Lidocaine 1 patch 12/31/24 11:55 01/03/25 08:55 Lidocaine 5% Patch TRANSDERM 1 patch DAILY YODIT Administration Magnesium Hydroxide 30 ml 12/28/24 14:40 Magnesium Hydroxide Susp 30 Ml Udc PO HS PRN Constipation Melatonin 5 mg 12/28/24 14:40 01/02/25 20:29 Melatonin 5 Mg Tablet PO 5 mg HS PRN Administration Insomnia Metoprolol Tartrate 100 mg 12/28/24 21:00 01/03/25 08:55 Metoprolol Tartrate 50 Mg Tab PO 100 mg Q12HR [facility] Administration Montelukast Sodium 10 mg 12/29/24 09:00 01/03/25 08:54 Montelukast Sodium 10 Mg Tablet PO 10 mg DAILY YODIT Administration Pantoprazole Sodium 40 mg 12/28/24 21:00 01/03/25 08:55 Pantoprazole 40 Mg Tablet PO 40 mg Q12HR YODIT Administration Prednisone 40 mg 01/03/25 09:15 Prednisone 20 Mg Tablet PO DAILY@0800 YODIT Quetiapine Fumarate 25 mg 12/28/24 21:00 01/02/25 20:29 Quetiapine Fumarate 25 Mg Tablet PO 25 mg HS YODIT Administration Ropinirole HCl 4 mg 12/28/24 21:00 01/02/25 20:28 Ropinirole Hcl 1 Mg Tablet PO 4 mg HS YODIT Administration Topiramate 200 mg 12/28/24 21:00 01/03/25 08:55 Topiramate 100 Mg Tablet PO 200 mg Q12HR YODIT Administration Trazodone HCl 50 mg 12/28/24 21:00 01/02/25 20:36 Trazodone Hcl 50 Mg Tablet PO Not Given HS YODIT Trazodone HCl 100 mg 01/02/25 12:12 01/02/25 20:29 Trazodone Hcl 50 Mg Tablet PO 100 mg HS PRN Administration Insomnia Radiology Results: ITS Impressions Chest CT 12/28/24 15:42 IMPRESSION: No cross-sectional imaging evidence to suggest the presence of pneumonia. Bibasilar atelectasis, unchanged from a recent radiograph, as detailed above.. Chest X-Ray 01/02/25 09:39 IMPRESSION: 1. Increasing opacities in the right mid and bilateral lower lung zones which could represent worsening atelectasis or pneumonia. Labs Labs: Laboratory Results - last 24 hr 01/03/25 01/03/25 05:40 06:37 WBC 15.7 H RBC 4.18 L Hgb 10.9 L Hct 37.6 MCV 90.0 MCH 26.1 MCHC 29.0 L RDW 14.6 H Plt Count 308 MPV 9.5 Puncture Site Left radial ABG pH 7.356 ABG pCO2 55.4 H ABG pO2 78.4 L ABG PO2/FiO2 Ratio 2.45 ABG HCO3 30.3 H ABG O2 Saturation 94.9 L ABG O2 Content 19.0 ABG Base Excess 3.4 A-a Gradient 84.9 Oxyhemoglobin 94.5 Total Hemoglobin 14.3 O2 Delivery Device Bipap O2 Liters/Min Not Reportable FiO2 32 Expiratory Pressure 5 Inspiratory Pressure 20 Sodium 137 Potassium 3.5 Chloride 94 L Carbon Dioxide 37 H Anion Gap 6 BUN 29 H Creatinine 1.42 H Estim Creat Clear Calc 45 Estimated GFR 37 L Glucose 129 H Calcium 9.0
--- NOTE | 2025-01-03 09:51 | PCRCNOTE ---
Addendum entered by Ramona Hunter, BILLING AND QUALITY TECHNICIAN 01/03/25 14:34: SPOKE WITH GAIL AT [facility], THEY ARE STILL WORKING IN THE AUTH PROCESS FOR THE NIV. Original Note: LEFT MESSAGE FOR STATUS UPDATE ON NIV WITH [facility] [phone].
[2025-01-03] MEDS: BENZONATATE 100 MG CAPSULE 200 MG PO ×3 (10:07→17:36)
[2025-01-03] MEDS: predniSONE 20 MG TABLET 40 MG PO (10:07)
--- NOTE | 2025-01-03 13:13 | P.PNIM_ITS ---
Progress Note: A&P Assessment and Plan (1) Acute exacerbation of chronic obstructive pulmonary disease: Code(s): J44.1 - Chronic obstructive pulmonary disease with (acute) exacerbation Status: Acute Assessment and Plan: * Pulmonology following * IV Steroids 20 mg q 6h * Levaquin 750 mg daily * Continue BiPap to blow off CO2 * Trend labs and VS * Awaiting results of CXR * duonebs prn * urine for strep pneumo, mycoplasma and legionella ordered * will order chest physio therapy * continue mucine * * 12/30- prednisone 40 mg po daily per pulm. day 3 of steroids today * 12/31 abg worse on bipap 15/5,28%. will use 20/5, 32% tonight with repeat abg in am and apnea link overnight. stop solumedrol and start prednisone 40 mg po starting today. Pulm continues to follow * -will add lidocaine to be applied to chest as needed for pain from coughing * * 01/01 abg: co2 64.2, o2 73.6, hco3 36.9. BIpap setting for notigh: r20 20/5, 32% fio2 per pulm order. * continue to monitor * 01/02- Today is day 6 of prednisone- last day. Continue ipratropium q.4 hours. Patient is on Levaquin day 6. O2 goal saturation 90-94% * 01/03 feeling worse today - restarted prednisone 40mg per pulm. * respiratory pathogen panel is negative. * modified barium swallow ordered nd normal. level 7 easy to swallow recommended. * continue Tessalon Perles 200 t.i.d. * restarted levalbuterol 0.63 mcg q.4 hours - monitor fir HR increase * Patient remains on Lasix 20 p.o. b.i.d. she is status post 7 days of levofloxacin * continue Vest therapy, montelukast. (2) Iron deficiency anemia: Code(s): D50.9 - Iron deficiency anemia, unspecified Status: Chronic Assessment and Plan: * Continue home meds once they are confirmed. * Monitor and trend CBC. (3) Atrial fibrillation: Code(s): I48.91 - Unspecified atrial fibrillation Status: Chronic Assessment and Plan: * Telemetry * Continue home meds once confirmed. * NSR. * metoprolol, amiodarone (4) Acute on chronic congestive heart failure: Code(s): I50.9 - Heart failure, unspecified Status: Chronic Assessment and Plan: * Chronic heart failure * Last ECHO showing normal LVSF w/EF of 60-65% on 12/02/24. * Daily weight * Accurate Intake and output * stable (5) Insomnia: Code(s): G47.00 - Insomnia, unspecified Status: Acute Assessment and Plan: insomnia- melatonin doesnot help much added trazadone 12/29- helped-will continue avoid atarax - 01/03 wants dose increase as didnot help much last night -will increase to 150 mg and monitor (6) Hallucination: Code(s): R44.3 - Hallucinations, unspecified Status: Acute Assessment and Plan: reported to RN yesterday- was too embarrassed to discuss it CT was done last night- no acute events pt reports that she had same symptoms before -same kinds of hallucinations and had UTI. Will collect UA and start treatment for UTI now and monitor closely. 01/02 reports improvement no acute c/o hallucinations Time Spent With Patient Time with patient: 25 - 35 minutes Subjective Date/time seen: 01/03/25 13:13 Interval history: 64 year old female pt with PMH of A-fib off of Eliquis for two years secondary to abdominal rectal sheath hematoma, COPD, Diastolic dysfunction, anemia, GERD, CVA and HF came to the ER from home with complaints of feeling fatigued and dyspneic. She was recently admitted and was just discharged on 12/08/24 w/acute COPD exacerbation. She was determined to need 5L oxygen per nocturnal oximetry and completed abx and discharged to follow up with Executive Administrator as outpt as well as Cardiology as outpt. Patient is a former smoker that quit 2021, she does not use alcohol or any illicit drugs. Patient was recently treated with steroids at the time of discharge. She denies any chest pain but is very fatigued and difficult to awaken. She was requiring BiPAP to maintain her saturations. 12/29/2024: Pt is seen and examined. Patient states she had a bad night and she is not feeling much better. She is c/o cough. She is on 4 L nasal cannula saturations 94%. Patient tempted to wear the full face mask with the AVAPS settings -managed per pulm, but she could not sleep well. she is willing to try it again tonight. Patient received a Xopenex treatment and had a heart rate 160 that decreased on its own. Pt is seen and examined today. she is calm and comfortable. no pain. feels like it is hard for her to bring phlegm up. HR had been controlled and stable. 12/30- pt is seen and examine. she slept better and her breathing is better as we ll. easier to cough. remains on oxygen. 12/31 - seen and examined during morning rounds. chest discomfort from coughing. did not have a good night )different BIPap setting were used- as dictated per insurance- as pt has to meet certain threshold in order to qualify for bipap for home use) 01/01 reported to RN yesterday evening that she was hallucinating. abg repeated. she was alert and appropriate. pt reports that this is not new to her. She had same hallucinations in the past and ended up being dx with UTI. she is alert, oriented, in no distress. 01/02 feeling overall better today. Day 6 of prednisone -last day. on ipratropium q.4 hours. Patient is on Levaquin day 6. She is on ceftriaxone day 2 for UTI. pulm following.did not sleep good last night, wants trazadone dose increased. Review of Systems Review of Systems: All systems reviewed & are unremarkable except as noted in HPI and below Exam Const: General: comfortable Other: Obese, somnolent HENMT: Face/Nose/Sinus: Normal nares present Mouth: Yes dry mucous membranes Eyes: General: appearance normal, both eyes and all related structures Sclera: sclerae normal Pupils: Equal, round and reactive pupils present EOM: EOMs intact bilaterally Neck: Neck: supple and no JVD Lymphatic: lymphadenopathy not noted Chest: Other: not tender Resp: Effort & Inspection: abnormal respiratory effort (Increased effort) Auscultation: diminished lung sounds bilateral (Bases) Other: scattered wheezing Cardio: Rate: regular rate Rhythm: regular rhythm Heart sounds: no gallops, no murmurs and no rubs GI: Inspection: non-distended Auscultation: normal bowel sounds Skin: General skin exam: No normal color (pale), No lesion and No rashes Lesions: no lesions noted Rashes: no rashes noted Wounds: no wounds Neuro: Cranial nerves: Yes Equal, round and reactive pupils present Speech: normal speech Motor exam (neuro): Abnormal motor strength present (Generalized weakness) Extrem: General: edema Other: BLE edema. Not pitting Psych: Mental Status: mental status grossly normal Affect: normal affect Objective Data Vital Signs Vital Signs: Vital Signs - 24 hr 01/02/25 14:00 01/02/25 16:15 01/02/25 16:31 Temperature 97 F L Pulse Rate 62 89 82 Respiratory Rate 20 20 20 Blood Pressure 110/51 L Pulse Oximetry 97 Oxygen Delivery Oxygen Flow Rate Fraction of Inspired Oxygen 01/02/25 19:44 01/02/25 19:55 01/02/25 20:19 Temperature Pulse Rate 61 61 Respiratory Rate 16 16 Blood Pressure Pulse Oximetry 95 Oxygen Delivery Nasal Cannula Oxygen Flow Rate 3 Fraction of Inspired Oxygen 01/02/25 20:28 01/02/25 20:30 01/02/25 20:32 Temperature 97.4 F L Pulse Rate 60 60 Respiratory Rate 20 Blood Pressure 110/66 Pulse Oximetry 96 96 Oxygen Delivery BiPAP Oxygen Flow Rate 4 Fraction of Inspired Oxygen 01/02/25 22:03 01/03/25 01:50 01/03/25 04:16 Temperature Pulse Rate 62 62 Respiratory Rate 21 H 20 Blood Pressure Pulse Oximetry 96 96 95 Oxygen Delivery BiPAP BiPAP BiPAP Oxygen Flow Rate Fraction of Inspired Oxygen 32 01/03/25 06:00 01/03/25 07:15 01/03/25 08:00 Temperature 97 F L Pulse Rate 57 L 51 L 60 Respiratory Rate 20 23 H 16 Blood Pressure 147/44 H Pulse Oximetry 96 98 98 Oxygen Delivery BiPAP Nasal Cannula Oxygen Flow Rate 3 Fraction of Inspired Oxygen 32 01/03/25 08:19 01/03/25 08:25 01/03/25 08:54 Temperature Pulse Rate 55 L 60 60 Respiratory Rate 16 16 Blood Pressure Pulse Oximetry Oxygen Delivery Oxygen Flow Rate Fraction of Inspired Oxygen 01/03/25 08:55 Temperature Pulse Rate 60 Respiratory Rate Blood Pressure Pulse Oximetry Oxygen Delivery Oxygen Flow Rate Fraction of Inspired Oxygen Intake/Output Intake/Output: Intake & Output 12/31/24 01/01/25 01/02/25 01/03/25 23:59 23:59 23:59 23:59 Intake Total 955 2490 2770 730 Output Total 2600 2950 1300 900 Balance -1645 -460 1470 -170 Meds/Results Medications: Active Medications Generic Name Dose Route Start Last Admin Trade Name Freq PRN Reason Stop Dose Admin Hydrocodone Bitart/Acetaminophen 1 tab 12/31/24 09:42 12/31/24 10:10 Hydrocodone/Acetaminophen (*Crx) 5-325 Mg Tablet PO 1 tab Q4H PRN Administration Pain Rated 4-6 Amiodarone HCl 200 mg 12/29/24 09:00 01/03/25 08:54 Amiodarone Hcl 200 Mg Tablet PO 200 mg DAILY YODIT Administration Amitriptyline HCl 10 mg 12/28/24 21:00 01/02/25 20:29 Amitriptyline Hcl 10 Mg Tablet PO 10 mg HS YODIT Administration Benzonatate 200 mg 01/03/25 09:00 01/03/25 10:07 Benzonatate 100 Mg Capsule PO 200 mg TID YODIT Administration Duloxetine HCl 40 mg 12/28/24 17:00 01/03/25 08:54 Duloxetine Hcl 20 Mg Capsule.Dr PO 40 mg BID YODIT Administration Escitalopram Oxalate 20 mg 12/28/24 15:30 01/03/25 08:55 Escitalopram Oxalate 10 Mg Tablet PO 20 mg DAILY YODIT Administration Ferrous Sulfate 325 mg 12/28/24 17:00 01/03/25 08:55 Ferrous Sulfate [address] BY MOUTH 325 mg BID YODIT Administration Furosemide 20 mg 12/28/24 17:00 01/03/25 08:54 Furosemide 20 Mg Tablet PO 20 mg BID YODIT Administration Guaifenesin 1,200 mg 12/28/24 21:00 01/03/25 08:54 Guaifenesin 12 Hr 600 Mg Tabcr PO 1,200 mg Q12HR YODIT Administration Ceftriaxone Sodium 1 gm in 50 mls @ 100 mls/hr 01/01/25 09:40 01/03/25 08:55 Rocephin 1 Gm/Ns 50 Ml IVPB 100 mls/hr QAM YODIT Administration Ipratropium [place] 0.5 mg 12/29/24 12:00 01/03/25 08:16 Ipratropium Br 0.02% Inh Soln 0.5 Mg/2.5 Ml Vial INHALATION 0.5 mg Q4HRT YODIT Administration Levalbuterol HCl 0.63 mg 01/03/25 12:00 Levalbuterol Neb 1.25 Mg/3 Ml INHALATION Q4HRT YODIT Lidocaine 1 patch 12/31/24 11:55 01/03/25 08:55 Lidocaine 5% Patch TRANSDERM 1 patch DAILY YODIT Administration Magnesium Hydroxide 30 ml 12/28/24 14:40 Magnesium Hydroxide Susp 30 Ml Udc PO HS PRN Constipation Melatonin 5 mg 12/28/24 14:40 01/02/25 20:29 Melatonin 5 Mg Tablet PO 5 mg HS PRN Administration Insomnia Metoprolol Tartrate 100 mg 12/28/24 21:00 01/03/25 08:55 Metoprolol Tartrate 50 Mg Tab PO 100 mg Q12HR YODIT Administration Montelukast Sodium 10 mg 12/29/24 09:00 01/03/25 08:54 Montelukast Sodium 10 Mg Tablet PO 10 mg DAILY YODIT Administration Pantoprazole Sodium 40 mg 12/28/24 21:00 01/03/25 08:55 Pantoprazole 40 Mg Tablet PO 40 mg Q12HR YODIT Administration Prednisone 40 mg 01/03/25 09:15 01/03/25 10:07 Prednisone 20 Mg Tablet PO 40 mg DAILY@0800 YODIT Administration Quetiapine Fumarate 25 mg 12/28/24 21:00 01/02/25 20:29 Quetiapine Fumarate 25 Mg Tablet PO 25 mg HS YODIT Administration Ropinirole HCl 4 mg 12/28/24 21:00 01/02/25 20:28 Ropinirole Hcl 1 Mg Tablet PO 4 mg HS YODIT Administration Topiramate 200 mg 12/28/24 21:00 01/03/25 08:55 Topiramate 100 Mg Tablet PO 200 mg Q12HR YODIT Administration Trazodone HCl 50 mg 12/28/24 21:00 01/02/25 20:36 Trazodone Hcl 50 Mg Tablet PO Not Given HS YODIT Trazodone HCl 100 mg 01/02/25 12:12 01/02/25 20:29 Trazodone Hcl 50 Mg Tablet PO 100 mg HS PRN Administration Insomnia Radiology Results: ITS Impressions Chest CT 12/28/24 15:42 IMPRESSION: No cross-sectional imaging evidence to suggest the presence of pneumonia. Bibasilar atelectasis, unchanged from a recent radiograph, as detailed above.. Chest X-Ray 01/02/25 09:39 IMPRESSION: 1. Increasing opacities in the right mid and bilateral lower lung zones which could represent worsening atelectasis or pneumonia. Labs Labs: Laboratory Results - last 24 hr 01/03/25 01/03/25 05:40 06:37 WBC 15.7 H RBC 4.18 L Hgb 10.9 L Hct 37.6 MCV 90.0 MCH 26.1 MCHC 29.0 L RDW 14.6 H Plt Count 308 MPV 9.5 Puncture Site Left radial ABG pH 7.356 ABG pCO2 55.4 H ABG pO2 78.4 L ABG PO2/FiO2 Ratio 2.45 ABG HCO3 30.3 H ABG O2 Saturation 94.9 L ABG O2 Content 19.0 ABG Base Excess 3.4 A-a Gradient 84.9 Oxyhemoglobin 94.5 Total Hemoglobin 14.3 O2 Delivery Device Bipap O2 Liters/Min Not Reportable FiO2 32 Expiratory Pressure 5 Inspiratory Pressure 20 Sodium 137 Potassium 3.5 Chloride 94 L Carbon Dioxide 37 H Anion Gap 6 BUN 29 H Creatinine 1.42 H Estim Creat Clear Calc 45 Estimated GFR 37 L Glucose 129 H Calcium 9.0 Quality VTE Prophylaxis VTE prophylaxis: mechanical ordered
--- NOTE | 2025-01-03 13:17 | PCSTNOTE ---
Please refer to the Modified Barium Swallow Evaluation in the EMR. The above pleasant and cooperative pt was seen for a modified barium swallow. She was alert & oriented, and able to follow commands. She is currently on a regular diet and reports occasional difficulty with thin liquids but stated it doesn't occur every day and was very sporadic. She reports exacerbation of her COPD and recurrent pneumonia. Oral mucosa is normal; pt is edentulous; she was able to dry swallow on command & exhibited clear vocal quality. The patient was seated for a lateral view and presented with 5cc of thin liquid barium via spoon, pudding consistency barium via a spoon, cracker coated with barium pudding via spoon, and uncontrolled thin liquid barium. This was presented via a cup & straw. Oral preparatory and oral phase symptoms: none. Pharyngeal phase symptoms: none. Esophageal stage symptoms: none. No aspiration occurred. Impressions: Normal swallow Ability No further ST is warranted at this time.
[2025-01-03] MEDS: LEVALBUTEROL NEB 1.25 MG/3 ML 0.63 MG INHALATION ×2 (16:34→20:00)
[2025-01-03] MEDS: rOPINIRole HCL 1 MG TABLET 4 MG PO (20:32)
[2025-01-03] MEDS: MELATONIN 5 MG TABLET PO (20:32)
[2025-01-03] MEDS: traZODone HCL 50 MG TABLET 150 MG PO (20:33)
[2025-01-03] MEDS: AMITRIPTYLINE HCL 10 MG TABLET PO (20:34)
[2025-01-03] MEDS: QUEtiapine FUMARATE 25 MG TABLET PO (20:34)
[2025-01-03] MEDS: traZODone HCL 50 MG TABLET PO (20:34)
[2025-01-04] VITALS (15 sets, daily range): BP systolic 104–123; BP diastolic 56–74; PULSE 59–72; RESP 16–22; TEMP 36.3–36.7; O2SAT 92–97
[2025-01-04] MEDS: LEVALBUTEROL NEB 1.25 MG/3 ML 0.63 MG INHALATION ×5 (04:20→20:42)
[2025-01-04] MEDS: IPRATROPIUM BR 0.02% INH SOLN 0.5 MG/2.5 ML VIAL INHALATION ×5 (04:21→20:42)
[2025-01-04 04:31] LABS: Alveolar/Arterial O2 Gradient 80.4 mmHg; Base Excess ABG 2.4 mEq/l (+/-2.0); Fractional Inspired Oxygen 32 %; HCO3 ABG 28.8 mEq/l (22.0-26.0); Oxygen Content ABG 15.2 %vol (16.0-22.0); Oxygen Saturation ABG 95.8 % (95.0-100.0); Oxyhemoglobin 95.2 % THb (90.0-100.0); PCO2 ABG 53.4 mmHg (35.0-45.0); PO2 ABG 85.3 mmHg (80.0-100.0); PO2 FiO2 Ratio Arterial Blood 2.67 %; Total Hemoglobin 11.3 g/dL (12.0-18.0)
[2025-01-04 04:32] LABS: Site Drawn RIGHT BRACHIAL
[2025-01-04 04:33] LABS: Device BIPAP; Modified Allen's Test Pass
[2025-01-04 04:34] LABS: Expiratory Pressure 5 cmH2O
[2025-01-04] MEDS: PANTOPRAZOLE 40 MG TABLET PO ×2 (08:24→21:29)
[2025-01-04] MEDS: guaiFENesin 12 HR 600 MG TABCR 1200 MG PO ×2 (08:24→21:29)
[2025-01-04] MEDS: BENZONATATE 100 MG CAPSULE 200 MG PO ×3 (08:25→17:11)
[2025-01-04] MEDS: DULoxetine HCL 20 MG CAPSULE.DR 40 MG PO ×2 (08:25→17:11)
[2025-01-04] MEDS: TOPIRAMATE 100 MG TABLET 200 MG PO ×2 (08:25→21:28)
[2025-01-04] MEDS: MONTELUKAST SODIUM 10 MG TABLET PO (08:25)
[2025-01-04] MEDS: ESCITALOPRAM OXALATE 10 MG TABLET 20 MG PO (08:25)
[2025-01-04] MEDS: FERROUS SULFATE 325 MG TABLET DR BY MOUTH ×2 (08:25→17:11)
[2025-01-04] MEDS: predniSONE 20 MG TABLET 40 MG PO (08:25)
[2025-01-04] MEDS: FUROSEMIDE 20 MG TABLET PO ×2 (08:25→17:11)
--- NOTE | 2025-01-04 08:46 | P.PNPL_ITS ---
Progress Note: A&P Assessment and Plan (1) Chronic obstructive pulmonary disease: Code(s): J44.9 - Chronic obstructive pulmonary disease, unspecified Status: Chronic Assessment and Plan: Regarding her COPD, 50 pack year tobacco use, quit 08/23/2022, alpha 1 anti trypsin genotype MZ, alpha 1 anti trypsin level 134, normal. The patient has been on oxygen for the last 5 years. I have no PFTs. She is using 5 L at rest with home saturations 92-96%. First CT scan in our system is from 08/27/2022 shows mild apical predominant centrilobular emphysema. Repeat CT angiogram of the chest on 12/02/2024 demonstrates mild apical predominant centrilobular emphysema. Patient is maintained on trelegy inhaler but she does not use a because of the taste. Patient takes Trelegy 100, montelukast 10 and albuterol p.r.n.. Patient tells me she wheezes every day when she takes rescue albuterol at home it relieves her wheezing for 1-2 minutes. 12/01/2024: White blood cell count 14.8, eosinophils 0.6%= 89 per micro L. patient presents with shortness of breath, no change in phlegm production or color, worsening shortness of breath and hypoxemic respiratory failure. Patient treated with bronchodilators, steroids and BiPAP. 12/28/24: The patient tells me that the day after she left the hospital she started getting worse with fatigue and then worsening oxygenation about 5 days ago. On her prescribed 2 L her saturations were in the 80s and then as low as 79%. She denied fever, chills, rigors. She had a dry cough with no phlegm and no hemoptysis. Currently says she is improved and breathing 50% back to her normal but she feels still feels tired and short of breath. The patient told me she had improved and could come off of the mask and she was placed on 3 L nasal cannula with saturations 91% Plan: Will continue treatment for possible COPD exacerbation. Patient has wheezing but has wheezing every day. I will decrease her Solu-Medrol to 20 mg IV q.6 hours. Continue DuoNebs q.6 hours. Patient is on levofloxacin for possible pneumonia and bronchitis. I will obtain a D-dimer and if positive will get a CT angiogram of the chest. If negative will get a CT scan of the chest looking for focal infiltrates consistent with a pneumonia. Goal saturation 90- 94%, Adjust oxygen accordingly. Will add guaifenesin 1200 mg p.o. b.i.d. Later in the day patient had a CT scan of the chest with moderate apical predominant centrilobular emphysema and bibasilar atelectasis with no evidence of pneumonia. 12/29/2024: Patient states she had a bad night and his breathing worse today. Her cough is increased with no phlegm and no blood. She is afebrile. White blood cell count 15.2, creatinine 1.61. Currently patient is on 4 L nasal cannula saturations 94%. Patient received a Xopenex treatment and had a heart rate 160 that decreased on its own and required no medical intervention. Plan: I will continue Solu-Medrol 20 mg IV q.6. I will discontinue her levalbuterol due to the tachy arrhythmia increase her ipratropium nebulizers to q.4 hours. No evidence of pneumonia. Will treat for tracheobronchitis with Levaquin 750 mg p.o. q.48h, day 2. Continue guaifenesin 12 50 b.i.d., montelukast 10. Patient is on Lasix 20 p.o. b.i.d.. 12/30/24: Patient tells me she is having a better day today. She says that her breathing is 75% back to her normal. Her cough is improved but increased from baseline. She has no phlegm and no hemoptysis. She is afebrile. Her weight today is 112.7 kg. Patient wore the hospital noninvasive ventilator with the AVAPS mode and said that she slept well. Plan: I will change the patient to prednisone 40 mg p.o. q.day, Day 3 of steroids. I will continue ipratropium nebulizers q.4 hours. Continue montelukast 10 q day and guaifenesin 1200 p.o. b.i.d.. continue Levaquin for tracheobronchitis, day 3. Encouraged her out of bed to chair, ambulation as tolerated, physical therapy has been ordered on 12/29/2024. Respiratory path ogen panel, urine Legionella, urine pneumococcal antigen pending. pulmonary inpatient services will resume on 01/02/2025, call with questions. 01/03/2024 patient states that she is breathing 75% back to her normal. Her dyspnea on exertion is back at her normal. His cough is persistent but improved. She is afebrile. White blood cell count 14.1, creatinine 1.46. Her weight is 114. Her currently the patient is on 3 L with saturation 95%. Patient wore the hospital BiPAP with a rate of 20 pressures 20/5 and 32% FiO2 and said that she could not sleep last night because the pressure was too high and the machine had a loud leak and kept her up. BNP 859 which is increased from 563. Continue Lasix 20 p.o. b.i.d.. Plan: Patient continues to improve. Today is day 6 of prednisone and will discontinue after today's dose. Continue ipratropium q.4 hours. Patient is on Levaquin day 6. She is on ceftriaxone day 2 for UTI. Goal saturation 90- 94%, adjust oxygen accordingly. 01/04/2024: Patient tells me she is breathing worse today. She says her cough is more persistent and heavier, remains dry with no phlegm. Her breathing is worse. She is able to walk with physical therapy yesterday and did well. White blood cell count 15.7, creatinine 1.42. Respiratory pathogen panel is negative. Plan. Patient worse today and will restart prednisone 40. Her respiratory pathogen panel is negative. I will obtain a modified barium swallow. Will begin Tessalon Perles 200 t.i.d. standing. Will start levalbuterol 0.63 mcg q.4 hours to see if this will provide some relief. Patient remains on Lasix 20 p.o. b.i.d. she is status post 7 days of levofloxacin and now on ceftriaxone for UTI, day 2. Continue guaifenesin 1200 q.12 hours, Vest therapy, montelukast. Patient is on metoprolol 100 q.12 hours as well as amiodarone 200, Later in the day patient had a modified barium swallow with no evidence of aspiration. 01/05/2024: Patient tells me she is breathing better today. Her cough persists but is better. Her shortness of breath and wheezing persists. She is afebrile. her weight today is 117.4 kg, yesterday she was 1.4 L positive on Lasix 20 p.o. b.i.d.. Plan: Patient had just received vest therapy as well as a nebulized treatment and she still had diffuse wheezing. Overall she is no better after 8 days of steroids, course of levofloxacin and now on ceftriaxone, bronchodilators, Lasix, montelukast and guaifenesin. Last admission on 12/02/2024 patient had AFib with RVR and her metoprolol was increased from 25 XL a day to 100 p.o. b.i.d. and she was started on amiodarone. She tells me she has had persistent symptoms since then. I have placed a hold on the metoprolol and amiodarone. Discussed with Lesley Rock and she will consult Cardiology regarding AFib management. Discussed with Lesley Rock. Will follow with you. (2) Chronic hypercapnic respiratory failure: Code(s): J96.12 - Chronic respiratory failure with hypercapnia Status: Acute Assessment and Plan: Last admission 12/02/2024 to 12/08/2024) patient presented with hypercarbic respiratory failure with ABG 7.33/65/103 and serum bicarb > 40. 12/28/2024: She again presents with shortness of breath, hypoxemic and hypercarbic respiratory failure. Current venous blood gas listed as room air 7.33/72/ 43. Patient has chronic hypercarbic respiratory failure from her COPD with a room air blood gas of 7.33/72/43 (venous) and a serum bicarbonate greater than 37. She would benefit from a noninvasive ventilation as this is her 2nd hospitalization in the last month for hypercarbic respiratory failure. noninvasive ventilation would prevent further hospitalizations and deterioration. Patient was placed on BiPAP With no rate and pressures 15/5 with 28% with blood gas of 7.37/64/69. Patient was then placed on BiPAP with no rate and pressure 20/5 and 32% with a blood gas of 7.38/64/74. ApneaLink on these settings demonstrated adequate oxygenation. Patient was then placed on BiPAP rate of 20 pressures 20/5 and she said she could not tolerate these settings as it was too much pressure, high leak and she could not sleep at night. I will initiate the process for a home noninvasive ventilator with the AVAPS mode through her [employer], oxygen DME is Rene who we will use. The patient told me she had improved and could come off of the mask and she was placed on 3 L nasal cannula with saturations 91% 12/28/24: Currently the patient is on BiPAP rate of 18, pressures 14/8 with 40% FiO2. Patient told me these settings were uncomfortable for her and I changed them to noninvasive ventilation with the AVAPS mode rate of 14, tidal volume 500, EPAP 5, minimal inspiratory pressure 6, maximal inspiratory pressure 25, inspiratory time 1.0, rise of 1 which is the fastest and 40% FiO2. She said this was more comfortable. The patient told me she had improved and could come off of the mask and she was placed on 3 L nasal cannula with saturations 91%. Plan: noninvasive ventilation with the AVAPS mode p.r.n. during the day. I recommend she wear this tonight. After she has improved will repeat ABG during the day. 12/29/24: Patient attempted to wear the fullface mask with the AVAPS settings as above and she did wear the mask but she could not sleep. plan: Patient says she will try to wear the AVAPS again tonight. I told her if she can not sleep with the mask on that she needs to take the mask off so that she can try to sleep. 12/30/24: Patient wore the hospital noninvasive ventilator with the AVAPS mode and said that she slept well. Plan: Patient tells me she still requires breathing support at night. If the patient qualifies for ventilatory support with a home machine it will need to be BiPAP with no rate. Tonight will place the patient on BiPAP no rate, pressures 15/5 and 28% FiO2 with overnight oximetry and ABG in the morning. 12/31/24: Patient wore a hospital BiPAP with no rate pressures 15/5 with 28% with blood gas the next morning 7.37/64/69 and overnight oximetry with hypoxia. 01/02/2024: Patient wore the hospital BiPAP with no rate pressures 20/5 with 32% a blood gas of 7.38/64/74 and overnight oximetry with adequate saturations. 01/03/2024 Patient wore the hospital BiPAP with a rate of 20 pressures 20/5 and 32% FiO2 and said that she could not sleep last night because the pressure was too high and the machine had a loud leak and kept her up. Plan: I will place the patient on noninvasive ventilation with the AVAPS mode rate of 14, tidal volume 500, EPAP 5, minimum inspiratory pressure 6, maximum inspiratory pressure 25, inspiratory time 1.0, rise of 1 and 32% FiO2. I will obtain an overnight oximetry and ABG on these settings. I will initiate home noninvasive ventilation through [facility] and her insurance [facility]. Later in the day filled out a home noninvasive ventilator form for [facility] through [facility] insurance for IVAPS with AE: Rate 14, tidal volume 500, minimum EP AP 5, maximum EPAP 15, minimum pressure support 6, maximum pressure support 25, 3 L bleed in. 01/03/25: Patient wore the hospital machine BiPAP rate of 20, pressures 20/5, inspiratory time 1, rise of 3 and 32% FiO2. She said she had a difficult time sleeping in the mask did not fit with a large leak. Overnight oximetry on these settings with recording duration of 7 hours and 40 minutes, average saturation 94%. Low saturation 63%. Time with saturation less than or equal to 88% 6 minutes, oxygen desaturation index 5.1. ABG 7.36/55/78. Plan: Waiting to hear back from his DME [employer] regarding a home machine. tonight AVAPS mode rate of 14, tidal volume 500, EPAP 5, minimum inspiratory pressure 6, maximum inspiratory pressure 25, inspiratory time 1.0, rise of 1 and 32% FiO2. I will obtain an overnight oximetry and ABG on these settings. 01/04/25: Patient could not tolerate the BiPAP but does tolerate noninvasive ventilation with the AVAPS mode. She used the hospital noninvasive ventilator with the AVAPS mode rate of 14, tidal volume 500, EPAP 5, minimal inspiratory pressure 6, maximal inspiratory pressure 25, I-time 1.0, rise of 1 and 32% FiO2. Patient said she slept well and could tolerate this machine. There was no leak. Patient had an overnight oximetry on these settings with recording duration of 6 hours and 56 minutes, average saturation 95%, low saturation 89%, time with saturation less than or equal to 88% was 0 minutes, oxygen desaturation index 2.1. ABG prior to removal was 7.35/53/85. Plan: Current noninvasive ventilation with the AVAPS mode provide adequate ventilation and oxygenation. Waiting to hear from [facility] regarding home noninvasive ventilation approval. Subjective Date/time seen: 01/04/25 08:46 Interval history: 12/28/2024: This is a new pulmonary consult for COPD exacerbation. 64-year-old with a history of AFib off anticoagulation for 2 years secondary to abdominal rectal sheath hematoma, diastolic dysfunction, GERD, HTN, restless legs syndrome, anxiety and COPD with chronic hypoxemic respiratory failure on 5 L at Night and 2 L with rest and activity per home O2 assessment on 12/08/2024. I previously saw the patient as an inpatient on 12/02/2024 when she was admitted for COPD exacerbation. Regarding her COPD, 50 pack year tobacco use, quit 08/23/2022, alpha 1 anti trypsin genotype MZ, alpha 1 anti trypsin level 134, normal. The patient has been on oxygen for the last 5 years. I have no PFTs. She is using 5 L at rest with home saturations 92-96%. First CT scan in our system is from 08/27/2022 shows mild apical predominant centrilobular emphysema. Repeat CT angiogram of the chest on 12/02/2024 demonstrates mild apical predominant centrilobular emphysema. Patient is maintained on trelegy inhaler but she does not use a because of the taste. Patient takes Trelegy 100, montelukast 10 and albuterol p.r.n.. Patient tells me she wheezes every day when she takes rescue albuterol at home it relieves her wheezing for 1-2 minutes. 12/01/2024: White blood cell count 14.8, eosinophils 0.6%= 89 per micro L. 12/02/2024 through 12/08/2024:? Presented to the emergency room with COPD exacerbation, hypercarbic and hypoxemic respiratory failure, AFib with RVR, and fluid overload.? Treated with BiPAP, steroids, bronchodilators, antibiotics, and diuretics.? CTA of the chest with no PE, mild apical predominant centrilobular emphysema, ?upper and lower extremity Dopplers negative for DVT.? Echocardiogram with LVEF 60-65%, RV was dilated with normal systolic function.? Left atrium normal, right atrium normal, RVSP 27. ?After she improved clinically on 12/06/2024: ABG on 5 L nasal cannula pH 7.39/48/97. ?Patient improved and was discharged on 12/08/24 on trelegy 100, rescue albuterol, montelukast 10, guaifenesin 600 b.i.d. p.r.n. congestion, no Lasix, amiodarone 200 b.i.d., metoprolol 100 q.12, she had completed 5 days of steroids in house and I did not recommend a discharge taper, however, the hospitalist discharge her on a 15 day prednisone taper. Required 2 L oxygen at rest and with activity per home O2 assessment and per overnight oximetry required 5 L NC when she naps or sleeps. ?12/08/24: creatinine 1.68. Her weight is 120.8 kg.? 12/28/2024: Presented to the emergency room with shortness of breath. blood pressure 136/117, heart rate 76, nasal cannula saturation 93%. Patient had wheezing throughout all lung paul. White blood cell count 13.4 with eosinophils 1.8%=241/ul. creatinine 1.34, serum bicarbonate 37, BNP 563. Venous blood gas listed as room air 7.33/72/ 43. patient placed on BiPAP, treated with bronchodilators, received IV steroids per EMS, lasix 40 IV. 12/28/24: Currently the patient is on BiPAP rate of 18, pressures 14/8 with 40% FiO2. Patient told me these settings were uncomfortable for her and I changed them to noninvasive ventilation with the AVAPS mode rate of 14, tidal volume 500, EPAP 5, minimal inspiratory pressure 6, maximal inspiratory pressure 25, inspiratory time 1.0, rise of 1 which is the fastest and 40% FiO2. She said this was more comfortable. The patient told me she had improved and could come off of the mask and she was placed on 3 L nasal cannula with saturations 91% The patient tells me that the day after she left the hospital she started getting worse with fatigue and then worsening oxygenation about 5 days ago. On her prescribed 2 L her saturations were in the 80s and then as low as 79%. She denied fever, chills, rigors. She had a dry cough with no phlegm and no hemoptysis. Currently says she is improved and breathing 50% back to her normal but she feels still feels tired and short of breath. Later in the day patient had a CT scan of the chest with moderate apical predominant centrilobular emphysema and bibasilar atelectasis with no evidence of pneumonia. 12/29/2024: Patient states she had a bad night and his breathing worse today. Her cough is increased with no phlegm and no blood. She is afebrile. White blood cell count 15.2, creatinine 1.61. Currently patient is on 4 L nasal cannula saturations 94%. Patient tempted to wear the fullface mask with the AVAPS settings as above and she did wear the mask but she could not sleep. Patient received a Xopenex treatment and had a heart rate 160 that decreased on its own and required no medical intervention. 12/30/24: Patient tells me she is having a better day today. She says that her breathing is 75% back to her normal. Her cough is improved but increased from baseline. She has no phlegm and no hemoptysis. She is afebrile. Her weight today is 112.7 kg. Patient wore the hospital noninvasive ventilator with the AVAPS mode and said that she slept well. 12/31/24: Patient wore a hospital BiPAP with no rate pressures 15/5 with 28% with blood gas the next morning 7.37/64/69 and overnight oximetry with hypoxia. 01/02/2024: Patient wore the hospital BiPAP with no rate pressures 20/5 with 32% a blood gas of 7.38/64/74 and overnight oximetry with adequate saturations. 01/03/2024 patient states that she is breathing 75% back to her normal. Her dyspnea on exertion is back at her normal. His cough is persistent but improved. She is afebrile. White blood cell count 14.1, creatinine 1.46. Her weight is 114. Patient wore the hospital BiPAP with a rate of 20 pressures 20/5 and 32% FiO2 and said that she could not sleep last night because the p ressure was too high and the machine had a loud leak and kept her up. Later in the day filled out a home noninvasive ventilator form for [facility] through [facility] insurance for IVAPS with AE: Rate 14, tidal volume 500, minimum EPAP 5, maximum EPAP 15, minimum pressure support 6, maximum pressure support 25, 3 L bleed in. 01/04/2024: Patient tells me she is breathing worse today. She says her co ugh is more persistent and heavier, remains dry with no phlegm. Her breathing is worse. She is able to walk with physical therapy yesterday and did well. White blood cell count 15.7, creatinine 1.42. Respiratory pathogen panel is negative. Patient wore the hospital machine BiPAP rate of 20, pressures 20/5, inspiratory time 1, rise of 3 and 32% FiO2. She said she had a difficult time sleeping in the mask did not fit with a large leak. She cannot sleep with this machine. Overnight oximetry on these settings with recording duration of 7 hours and 40 minutes, average saturation 94%. Low saturation 63%. Time with saturation less than or equal to 88% 6 minutes, oxygen desaturation index 5.1. ABG 7.36/55/78. Levalbuterol and Tessalon Perles added. 01/05/2024: Patient tells me she is breathing better today. Her cough persists but is better. Her shortness of breath and wheezing persists. She is afebrile. her weight today is 117.4 kg, yesterday she was 1.4 L positive on Lasix 20 p.o. b.i.d.. She used the hospital noninvasive ventilator with the AVAPS mode rate of 14, tidal volume 500, EPAP 5, minimal inspiratory pressure 6, maximal inspiratory pressure 25, I-time 1.0, rise of 1 and 32% FiO2. Patient said she slept well and could tolerate this machine. There was no leak. Patient had an overnight oximetry on these settings with recording duration of 6 hours and 56 minutes, average saturation 95%, low saturation 89%, time with saturation less than or equal to 88% was 0 minutes, oxygen desaturation index 2.1. ABG prior to removal was 7.35/53/85. DATA: 12/28/24: CT chest CLINICAL INDICATION: Pneumonia suspected clinically COMPARISON: Reference is made to plain film evaluation of the chest, performed approximately 12 hours earlier and dating back to 12/05/2024. Reference is also made to a CT angiogram of the chest dated 10/20/2022 FINDINGS/OBSERVATIONS: Lung: bibasilar atelectasis, unchanged from chest radiograph. The remainder the lungs are clear. HEART: The heart is borderline enlarged, without pericardial effusion. MEDIASTINUM: Redemonstration of a large left thyroid nodule, increased in size from 2022 examination. No pathologically enlarged or morphologically suspicious lymph nodes are identified within the mediastinum, bilateral axilla, within the soft tissues of the anterior chest wall. SOFT TISSUES OF THE CHEST: Unremarkable. BONES OF THE CHEST: No acute fracture. No lytic or blastic lesions are identified. IMPRESSION: No cross-sectional imaging evidence to suggest the presence of pneumonia. Bibasilar atelectasis, unchanged from a recent radiograph, as detailed above.. 12/08/2024: Home O2 assessment: Rest room air saturation 87%. Rest nasal cannula 1 L saturation 88%. Rest nasal cannula saturation 93%. Exercise nasal cannula 2 L saturation 94%. Patient requires 2 L with rest and with activity. 12/07/24: Patient had an overnight oximetry on 5 L nasal cannula with recording duration of 6 hours and 58 minutes. Average saturation 98%. Low saturation 95%. Time with saturation less than or equal to 88% was 0 minutes. Oxygen desaturation index 0. 12/06/2024: ABG on 5 L nasal cannula pH 7.39/48/97. ? 12/02/2024: Alpha 1 anti trypsin genotype capital MZ. 12/02/2024: Alpha 1 anti trypsin level 135, normal 83-199. 12/02/24: CTA chest PE protocol History: 64 years Female with . R/O PE . Findings: PULMONARY ARTERIES: No pulmonary embolus. VISUALIZED THORACIC INLET: Left thyroid nodule is noted. Ultrasound evaluation advised. MEDIASTINUM: Aorta/coronary arteries: Mild atheromatous disease. Heart/other: The heart is not enlarged. Lymph nodes: No mediastinal or hilar adenopathy. Precarinal lymph node measuring 1.6 cm noted. LUNGS: Atelectasis versus pneumonia seen in the right lung base inferiorly. Minimal atelectasis versus pneumonia in the left lung base is also noted. No pulmonary nodules or masses. No effusions. No pneumothorax. VISUALIZED UPPER abdomen: the visualized upper abdomen is normal. MUSCULOSKELETAL: Soft tissues: The superficial soft tissues are normal. Bones: Age appropriate degenerative changes of the spine. IMPRESSION: 1. No pulmonary embolism. 2. Bilateral basal atelectasis versus pneumonia. Clinical correlation advised. 12/02/2024: Echo Summary 1. The left ventricle is normal in size and systolic function. The left ventricular ejection fraction visually estimated to be 60-60%. 2. The right ventricle is dilated with normal systolic function. 3. There are no significant valvular abnormalities. 4. Technically difficult study. Left Ventricle The left ventricle is normal in size and systolic function. The left ventricular ejection fraction visually estimated to be 60-60%. Diastolic dysfunction is present. Right Ventricle The right ventricle is dilated with normal systolic function. Left Atria The left atrium is normal size. Right Atria The right atrium is normal size. RVSP 27 12/17/2023: CT Scan of the Chest without Contrast: Clinical Indication: Lung cancer screening, nicotine dependence COMPARISON: 04/06/2023 Findings: Stable enlarged left thyroid lobe. There is no evidence of any significant mediastinal, hilar or axillary lymphadenopathy. Atherosclerotic calcifications of the aorta are present. There is no evidence of pleural or pericardial effusion. There is irregular airspace opacity in the posterior right lower lobe, improved from prior exam, likely representing postinflammatory change, as there is a previous more extensive area of consolidation in this location. Mild emphysema. Images through the upper abdomen reveal no abnormalities. Impression: Lung RADS 2: Benign appearance. 12 month follow-up screening CT advised. 09/10/2022: Echo Summary 1. Technically difficult study with limited views. Regional wall motion assessment limited due to poor endomyocardial border definition despite definity contrast enhancement. 2. Left ventricular chamber dimension is normal. 3. Left ventricular systolic function is normal, estimated at 65-70%. 4. There is mildly increased left ventricular wall thickness. 5. Right ventricular chamber dimension is normal. 6. Right ventricular systolic function is moderately reduced. TAPSE 1.3. 7. There is trace tricuspid valve regurgitation. 8. Mild pulmonary hypertension, estimated pulmonary arterial systolic pressure is 37 mmHg. 9. Normal inferior vena cava with <50% collapse upon inspiration consistent with elevated right atrial pressure, 10 mmHg. 08/28/2022: Summary 1. Left ventricular chamber dimension is normal. 2. Left ventricular systolic function is normal, estimated at 60-65%. 3. The left ventricular diastolic function is grade I diastolic dysfunction. 4. Right ventricular chamber dimension is moderately enlarged. 5. Right ventricular systolic function is normal. 6. There is moderate tricuspid valve regurgitation, which may be underestimated due to the eccentricity of the jet. 7. Dilated inferior vena cava with no collapse upon inspiration consistent with elevated right atrial pressure, 15 mmHg. 8. Pulmonary hypertension with an estimated PASP of 59mmHg. Right Ventricle Right ventricular chamber dimension is moderately enlarged. Right ventricular systolic function is normal. Right Atria Right atrial chamber dimension is normal. Atrial Septum Intact interatrial septum visualized by color flow imaging. 08/27/2022: EXAMINATION: CT chest high resolution wo co DATE: 08/27/2022 16:07 INDICATION: respiratory failure TECHNIQUE: Computed tomography (CT) of the chest was performed without intravenous contrast. Automated exposure control and iterative reconstruction technique were employed. The dose-length product was 818.52 mGy-cm. COMPARISON: X-ray chest 08/27/2022 and CTA chest 07/21/2018. FINDINGS: CHEST: Endotracheal tube terminating 2.5 cm above the maria esther. Thoracic aorta: No significant dilation. Moderate arch calcification. Lung parenchyma and airways: Diffuse tree-in-bud opacities most evident in the right lung. Scattered centrilobular nodular opacities measuring up to 11 mm in the right upper lobe. Mild interlobular septal thickening. Bibasilar dependent opacities likely representing atelectasis. Mild emphysematous change. Thoracic inlet, axillae and chest wall: No thyroid or soft tissue mass. No axillary lymphadenopathy. Mediastinum: Mediastinal lymphadenopathy. Dilated central pulmonary arteries as can be seen with pulmonary arterial hypertension. Heart and pericardium: Normal heart size. Aortic valve calcification. No pericardial effusion. Coronary artery calcifications: Mild. Pleura: Trace bilateral pleural fluid. Upper abdomen: No significant finding. Thoracic bones: No acute osseous finding in the chest. IMPRESSION: 1. Tree-in-bud opacities as can be seen with atypical infection (including but not limited to: MAC, TB, fungal), ABPA, airways disease, and less likely aspiration. 2. Nodular opacity in right upper lobe should be followed after the appropriate therapy and cessation of symptoms to ensure resolution. 3. Mediastinal lymphadenopathy. 4. Trace bilateral pleural effusions. 5. Mild interstitial edema. Review of Systems Constitutional: Constitutional: Reports no additional constitutional complaints Eyes: Eyes: Reports no additional eye complaints ENT: Reports system reviewed and no additional complaints, except as documented Cardiovascular: Cardiovascular: Reports no additional cardiovascular complaints Respiratory: Respiratory: Reports no additional respiratory complaints Gastrointestinal: Gastrointestinal: Reports no additional gastrointestinal complaints Musculoskeletal: Musculoskeletal: Reports no additional musculoskeletal complaints Neurologic: Reports system reviewed and no additional complaints, except as documented Psychiatric: Psychiatric: Reports no additional psychiatric complaints Endocrine: Endocrine: Reports no additional endocrine complaints Hematologic/Lymphatic: Hematologic/Lymphatic: Reports no additional hematologic/lymphatic complaints Allergic/Immunologic: Allergic/Immunologic: Reports no additional allergic/immunologic complaints Exam Const: General: cooperative, healthy appearing and comfortable Orientation/consciousness: oriented to person, oriented to place and oriented to time HENMT: Head: normal to inspection Ears: hearing grossly normal bilaterally Eyes: General: appearance normal, both eyes and all related structures Neck: Neck: normal visual inspection Chest: Chest palpation & inspection: normal inspection of the chest Resp: Effort & Inspection: normal respiratory effort and able to speak in com plete sentences Auscultation: no crackles, no rales, no rhonchi, no wheezes and diminished lung sounds Other: wheezes Cardio: Jugular venous distension: no JVD GI: Inspection: normal to inspection Skin: General skin exam: normal color Neuro: General: oriented to person, oriented to place and oriented to time Extrem: General: edema Other: Psych: Appearance: grossly normal Objective Data Vital Signs Vital Signs: Vital Signs - 24 hr 01/03/25 08:54 01/03/25 08:55 01/03/25 14:00 Temperature 36.7 C Pulse Rate 60 60 61 Respiratory Rate 18 Blood Pressure 111/73 Pulse Oximetry 94 Oxygen Delivery Oxygen Flow Rate Fraction of Inspired Oxygen 01/03/25 16:35 01/03/25 16:35 01/03/25 20:00 Temperature Pulse Rate 70 63 Respiratory Rate 16 14 Blood Pressure Pulse Oximetry 95 97 Oxygen Delivery Nasal Cannula BiPAP Oxygen Flow Rate 3 Fraction of Inspired Oxygen 32 01/03/25 20:02 01/03/25 20:06 01/03/25 20:19 Temperature Pulse Rate 67 70 Respiratory Rate 20 20 Blood Pressure Pulse Oximetry 99 Oxygen Delivery Nasal Cannula Oxygen Flow Rate 3 Fraction of Inspired Oxygen 01/03/25 21:32 01/03/25 22:00 01/04/25 04:20 Temperature 36.7 C Pulse Rate 63 67 60 Respiratory Rate 14 18 16 Blood Pressure 102/88 Pulse Oximetry 97 92 92 Oxygen Delivery BiPAP BiPAP Oxygen Flow Rate Fraction of Inspired Oxygen 01/04/25 04:20 01/04/25 04:39 01/04/25 06:00 Temperature 36.3 C L Pulse Rate 60 66 Respiratory Rate 16 18 Blood Pressure 113/60 Pulse Oximetry 92 97 Oxygen Delivery Oxygen Flow Rate Fraction of Inspired Oxygen 01/04/25 07:25 01/04/25 07:25 01/04/25 07:40 Temperature Pulse Rate 59 L 60 Respiratory Rate 18 18 Blood Pressure Pulse Oximetry 95 Oxygen Delivery Nasal Cannula Oxygen Flow Rate 3 Fraction of Inspired Oxygen Intake/Output Intake/Output: Intake & Output 01/01/25 01/02/25 01/03/25 01/04/25 23:59 23:59 23:59 23:59 Intake Total 2490 2770 3150 Output Total 2950 1300 3200 Balance -460 1470 -50 Meds/Results Medications: Active Medications Generic Name Dose Route Start Last Admin Trade Name Alisa PRN Reason Stop Dose Admin Hydrocodone Bitart/Acetaminophen 1 tab 12/31/24 09:42 12/31/24 10:10 Hydrocodone/Acetaminophen (*Crx) 5-325 Mg Tablet PO 1 tab Q4H PRN Administration Pain Rated 4-6 Amiodarone HCl 200 mg 12/29/24 09:00 01/03/25 08:54 Amiodarone Hcl 200 Mg Tablet PO 200 mg DAILY YODIT Administration Amitriptyline HCl 10 mg 12/28/24 21:00 01/03/25 20:34 Amitriptyline Hcl 10 Mg Tablet PO 10 mg HS YODIT Administration Benzonatate 200 mg 01/03/25 09:00 01/04/25 08:25 Benzonatate 100 Mg Capsule PO 200 mg TID YODIT Administration Duloxetine HCl 40 mg 12/28/24 17:00 01/04/25 08:25 Duloxetine Hcl 20 Mg Capsule.Dr PO 40 mg BID YODIT Administration Escitalopram Oxalate 20 mg 12/28/24 15:30 01/04/25 08:25 Escitalopram Oxalate 10 Mg Tablet PO 20 mg DAILY YODIT Administration Ferrous Sulfate 325 mg 12/28/24 17:00 01/04/25 08:25 Ferrous Sulfate [address] BY MOUTH 325 mg BID YODIT Administration Furosemide 20 mg 12/28/24 17:00 01/04/25 08:25 Furosemide 20 Mg Tablet PO 20 mg BID YODIT Administration Guaifenesin 1,200 mg 12/28/24 21:00 01/04/25 08:24 Guaifenesin 12 Hr 600 Mg Tabcr PO 1,200 mg Q12HR YODIT Administration Ceftriaxone Sodium 1 gm in 50 mls @ 100 mls/hr 01/01/25 09:40 01/04/25 08:26 Rocephin 1 Gm/Ns 50 Ml IVPB 100 mls/hr QAM YODIT Administration Ipratropium [place] 0.5 mg 12/29/24 12:00 01/04/25 07:24 Ipratropium Br 0.02% Inh Soln 0.5 Mg/2.5 Ml Vial INHALATION 0.5 mg Q4HRT YODIT Administration Levalbuterol HCl 0.63 mg 01/03/25 12:00 01/04/25 07:24 Levalbuterol Neb 1.25 Mg/3 Ml INHALATION 0.63 mg Q4HRT YODIT Administration Lidocaine 1 patch 12/31/24 11:55 01/04/25 08:26 Lidocaine 5% Patch TRANSDERM Not Given DAILY YODIT Magnesium Hydroxide 30 ml 12/28/24 14:40 Magnesium Hydroxide Susp 30 Ml Udc PO HS PRN Constipation Melatonin 5 mg 12/28/24 14:40 01/03/25 20:32 Melatonin 5 Mg Tablet PO 5 mg HS PRN Administration Insomnia Metoprolol Tartrate 100 mg 12/28/24 21:00 01/03/25 20:34 Metoprolol Tartrate 50 Mg Tab PO 100 mg Q12HR YODIT Administration Montelukast Sodium 10 mg 12/29/24 09:00 01/04/25 08:25 Montelukast Sodium 10 Mg Tablet PO 10 mg DAILY YODIT Administration Pantoprazole Sodium 40 mg 12/28/24 21:00 01/04/25 08:24 Pantoprazole 40 Mg Tablet PO 40 mg Q12HR YODIT Administration Prednisone 40 mg 01/03/25 09:15 01/04/25 08:25 Prednisone 20 Mg Tablet PO 40 mg DAILY@0800 YODIT Administration Quetiapine Fumarate 25 mg 12/28/24 21:00 01/03/25 20:34 Quetiapine Fumarate 25 Mg Tablet PO 25 mg HS YODIT Administration Ropinirole HCl 4 mg 12/28/24 21:00 01/03/25 20:32 Ropinirole Hcl 1 Mg Tablet PO 4 mg HS YODIT Administration Topiramate 200 mg 12/28/24 21:00 01/04/25 08:25 Topiramate 100 Mg Tablet PO 200 mg Q12HR YODIT Administration Trazodone HCl 50 mg 12/28/24 21:00 01/03/25 20:34 Trazodone Hcl 50 Mg Tablet PO 50 mg HS YODIT Administration Trazodone HCl 150 mg 01/03/25 13:16 01/03/25 20:33 Trazodone Hcl 50 Mg Tablet PO 150 mg HS PRN Administration Insomnia Radiology Results: ITS Impressions Chest CT 12/28/24 15:42 IMPRESSION: No cross-sectional imaging evidence to suggest the presence of pneumonia. Bibasilar atelectasis, unchanged from a recent radiograph, as detailed above.. Chest X-Ray 01/02/25 09:39 IMPRESSION: 1. Increasing opacities in the right mid and bilateral lower lung zones which could represent worsening atelectasis or pneumonia. Modified Barium Swallow 01/03/25 15:10 IMPRESSION: Patient tolerated regular consistency oral feedings in the upright position. Please correlate with speech pathologist findings and specific feeding recommendations. Labs Labs: Laboratory Results - last 24 hr 01/04/25 04:13 Puncture Site Right brachial ABG pH 7.350 ABG pCO2 53.4 H ABG pO2 85.3 ABG PO2/FiO2 Ratio 2.67 ABG HCO3 28.8 H ABG O2 Saturation 95.8 ABG O2 Content 15.2 L ABG Base Excess 2.4 A-a Gradient 80.4 Oxyhemoglobin 95.2 Total Hemoglobin 11.3 L O2 Delivery Device Bipap O2 Liters/Min Not Reportable FiO2 32 Expiratory Pressure 5 Inspiratory Pressure Not Reportable
--- NOTE | 2025-01-04 12:20 | P.PNIM_ITS ---
Progress Note: A&P Assessment and Plan (1) Acute exacerbation of chronic obstructive pulmonary disease: Code(s): J44.1 - Chronic obstructive pulmonary disease with (acute) exacerbation Status: Acute Assessment and Plan: Has been on oxygen for over 5 years. 50 pack year hx tobacco use, quit 08/23/2022. Home meds: Trelegy, montelukast 10, albuterol PRN Was intitially on Bipap, 5/10 abg worse on bipap 15/5,28%. will use 20/5, 32% tonight with repeat abg in am and apnea link overnight. --stopped solumedrol and start prednisone 40 mg po starting today. Pulm continues to follow --Pulmonology following, appreciate recommendations: Could not tolerate bipap but tolerating noninvasive ventillation with AVAPs (2) Iron deficiency anemia: Code(s): D50.9 - Iron deficiency anemia, unspecified Status: Chronic Assessment and Plan: * Continue home meds once they are confirmed. * Monitor and trend CBC. (3) Atrial fibrillation: Code(s): I48.91 - Unspecified atrial fibrillation Status: Chronic Assessment and Plan: Home meds: amiodarone 200mg daily, metoprolol 100mg BID * Rate controlled, decrease metoprolol to 50mg BID * Continue amiodarone * Cardiology consulted, appreciate recommendations * NSR. (4) Acute on chronic congestive heart failure: Code(s): I50.9 - Heart failure, unspecified Status: Chronic Assessment and Plan: * Chronic heart failure * Last ECHO showing normal LVSF w/EF of 60-65% on 12/02/24. * Daily weight * Accurate Intake and output * stable (5) Insomnia: Code(s): G47.00 - Insomnia, unspecified Status: Acute Assessment and Plan: insomnia- melatonin doesnot help much added trazadone 12/29- helped-will continue avoid atarax - 01/03 wants dose increase as did not help much last night -will increase to 150 mg and monitor (6) Hallucination: Code(s): R44.3 - Hallucinations, unspecified Status: Acute Assessment and Plan: Reports shadows/smoke in her vision intermittently, has noticed when she has a UTI in the past. Intermittent, but started about [address] no acute fidnings. 01/01 UA negative (7) Thyroid nodule: Code(s): E04.1 - Nontoxic single thyroid nodule Status: Acute Assessment and Plan: CT Chest showed a large left thyroid nodule, increased in size since 2022 --Check TSH (8) Weakness: Code(s): R53.1 - Weakness Status: Acute Assessment and Plan: Lower extremity weakness, gradually worsening in the last 2 years. Differential includes deconditioning, autoimmune, paraneoplastic, steroid related --Check VIRIDIANA, TSH --Follow up thyroid nodule --PT/OT Plan 62 minutes Time Spent With Patient Time: 58 minutes Subjective Date/time seen: 01/04/25 12:20 Interval history: Still short of breath with activity. Notes generalized weakness in the last 2 years, progressing gradually Review of Systems Review of Systems: All systems reviewed & are unremarkable except as noted in HPI and below Exam Narrative: General - Awake and alert. No acute distress Eyes - PERRLA, EOM intact ENT - No thrush, No erythema Neck - No noticeable or palpable swelling Lymph Nodes - No lymphadenopathy Cardiovascular - RRR no m/r/g, no JVD Lungs: Decreased, No wheezing, use of accessory muscles, no crackles Skin - Skin warm and dry, no wounds or rashes Abdomen - Normal bowel sounds, abdomen soft and nontender Extremities - No edema, cyanosis or clubbing Musculoskeletal - 2/5 strength lower extremities, normal range of motion, no swollen or erythematous joints. Neurological ? Alert and oriented x 3, CN 2-12 grossly intact. Psych: Normal mood and affect Objective Data Vital Signs Vital Signs: Vital Signs - 24 hr 01/03/25 14:00 01/03/25 16:35 01/03/25 16:35 Temperature 98.1 F Pulse Rate 61 70 Respiratory Rate 18 16 Blood Pressure 111/73 Pulse Oximetry 94 95 Oxygen Delivery Nasal Cannula Oxygen Flow Rate 3 Fraction of Inspired Oxygen 01/03/25 20:00 01/03/25 20:02 01/03/25 20:06 Temperature Pulse Rate 63 67 Respiratory Rate 14 20 Blood Pressure Pulse Oximetry 97 99 Oxygen Delivery BiPAP Nasal Cannula Oxygen Flow Rate 3 Fraction of Inspired Oxygen 32 01/03/25 20:19 01/03/25 21:32 01/03/25 22:00 Temperature 98.1 F Pulse Rate 70 63 67 Respiratory Rate 20 14 18 Blood Pressure 102/88 Pulse Oximetry 97 92 Oxygen Delivery BiPAP Oxygen Flow Rate Fraction of Inspired Oxygen 01/04/25 04:20 01/04/25 04:20 01/04/25 04:39 Temperature Pulse Rate 60 60 Respiratory Rate 16 16 Blood Pressure Pulse Oximetry 92 92 Oxygen Delivery BiPAP Oxygen Flow Rate Fraction of Inspired Oxygen 01/04/25 06:00 01/04/25 07:25 01/04/25 07:25 Temperature 97.4 F L Pulse Rate 66 59 L Respiratory Rate 18 18 Blood Pressure 113/60 Pulse Oximetry 97 95 Oxygen Delivery Nasal Cannula Oxygen Flow Rate 3 Fraction of Inspired Oxygen 01/04/25 07:40 01/04/25 08:30 01/04/25 11:21 Temperature Pulse Rate 60 60 62 Respiratory Rate 18 18 18 Blood Pressure Pulse Oximetry 95 Oxygen Delivery Nasal Cannula Oxygen Flow Rate 3 Fraction of Inspired Oxygen 32 01/04/25 11:34 Temperature Pulse Rate 60 Respiratory Rate 18 Blood Pressure Pulse Oximetry Oxygen Delivery Oxygen Flow Rate Fraction of Inspired Oxygen Intake/Output Intake/Output: Intake & Output 01/01/25 01/02/25 01/03/25 01/04/25 23:59 23:59 23:59 23:59 Intake Total 2490 2770 3150 1030 Output Total 2950 1300 3200 Balance -460 1470 -50 1030 Meds/Results Medications: Active Medications Generic Name Dose Route Start Last Admin Trade Name Freq PRN Reason Stop Dose Admin Hydrocodone Bitart/Acetaminophen 1 tab 12/31/24 09:42 12/31/24 10:10 Hydrocodone/Acetaminophen (*Crx) 5-325 Mg Tablet PO 1 tab Q4H PRN Administration Pain Rated 4-6 Amiodarone HCl 200 mg 12/29/24 09:00 01/03/25 08:54 Amiodarone Hcl 200 Mg Tablet PO 200 mg DAILY YODIT Administration Amitriptyline HCl 10 mg 12/28/24 21:00 01/03/25 20:34 Amitriptyline Hcl 10 Mg Tablet PO 10 mg HS YODIT Administration Benzonatate 200 mg 01/03/25 09:00 01/04/25 08:25 Benzonatate 100 Mg Capsule PO 200 mg TID YODIT Administration Duloxetine HCl 40 mg 12/28/24 17:00 01/04/25 08:25 Duloxetine Hcl 20 Mg Capsule.Dr PO 40 mg BID YODIT Administration Escitalopram Oxalate 20 mg 12/28/24 15:30 01/04/25 08:25 Escitalopram Oxalate 10 Mg Tablet PO 20 mg DAILY YODIT Administration Ferrous Sulfate 325 mg 12/28/24 17:00 01/04/25 08:25 Ferrous Sulfate [address] BY MOUTH 325 mg BID YODIT Administration Furosemide 20 mg 12/28/24 17:00 01/04/25 08:25 Furosemide 20 Mg Tablet PO 20 mg BID YODIT Administration Guaifenesin 1,200 mg 12/28/24 21:00 01/04/25 08:24 Guaifenesin 12 Hr 600 Mg Tabcr PO 1,200 mg Q12HR YODIT Administration Ceftriaxone Sodium 1 gm in 50 mls @ 100 mls/hr 01/01/25 09:40 01/04/25 08:26 Rocephin 1 Gm/Ns 50 Ml IVPB 100 mls/hr QAM YODIT Administration Ipratropium [place] 0.5 mg 12/29/24 12:00 01/04/25 11:20 Ipratropium Br 0.02% Inh Soln 0.5 Mg/2.5 Ml Vial INHALATION 0.5 mg Q4HRT YODIT Administration Levalbuterol HCl 0.63 mg 01/03/25 12:00 01/04/25 11:20 Levalbuterol Neb 1.25 Mg/3 Ml INHALATION 0.63 mg Q4HRT YODIT Administration Lidocaine 1 patch 12/31/24 11:55 01/04/25 08:26 Lidocaine 5% Patch TRANSDERM Not Given DAILY YODIT Magnesium Hydroxide 30 ml 12/28/24 14:40 Magnesium Hydroxide Susp 30 Ml Udc PO HS PRN Constipation Melatonin 5 mg 12/28/24 14:40 01/03/25 20:32 Melatonin 5 Mg Tablet PO 5 mg HS PRN Administration Insomnia Metoprolol Tartrate 100 mg 12/28/24 21:00 01/03/25 20:34 Metoprolol Tartrate 50 Mg Tab PO 100 mg Q12HR YODIT Administration Montelukast Sodium 10 mg 12/29/24 09:00 01/04/25 08:25 Montelukast Sodium 10 Mg Tablet PO 10 mg DAILY YODIT Administration Pantoprazole Sodium 40 mg 12/28/24 21:00 01/04/25 08:24 Pantoprazole 40 Mg Tablet PO 40 mg Q12HR YODIT Administration Prednisone 40 mg 01/03/25 09:15 01/04/25 08:25 Prednisone 20 Mg Tablet PO 40 mg DAILY@0800 YODIT Administration Quetiapine Fumarate 25 mg 12/28/24 21:00 01/03/25 20:34 Quetiapine Fumarate 25 Mg Tablet PO 25 mg HS YODIT Administration Ropinirole HCl 4 mg 12/28/24 21:00 01/03/25 20:32 Ropinirole Hcl 1 Mg Tablet PO 4 mg HS YODIT Administration Topiramate 200 mg 12/28/24 21:00 01/04/25 08:25 Topiramate 100 Mg Tablet PO 200 mg Q12HR YODIT Administration Trazodone HCl 50 mg 12/28/24 21:00 01/03/25 20:34 Trazodone Hcl 50 Mg Tablet PO 50 mg HS YODIT Administration Trazodone HCl 150 mg 01/03/25 13:16 01/03/25 20:33 Trazodone Hcl 50 Mg Tablet PO 150 mg HS PRN Administration Insomnia Radiology Results: ITS Impressions Chest CT 12/28/24 15:42 IMPRESSION: No cross-sectional imaging evidence to suggest the presence of pneumonia. Bibasilar atelectasis, unchanged from a recent radiograph, as detailed above.. Chest X-Ray 01/02/25 09:39 IMPRESSION: 1. Increasing opacities in the right mid and bilateral lower lung zones which could represent worsening atelectasis or pneumonia. Modified Barium Swallow 01/03/25 15:10 IMPRESSION: Patient tolerated regular consistency oral feedings in the upright position. Please correlate with speech pathologist findings and specific feeding recommendations. Labs Labs: Laboratory Results - last 24 hr 01/04/25 04:13 Puncture Site Right brachial ABG pH 7.350 ABG pCO2 53.4 H ABG pO2 85.3 ABG PO2/FiO2 Ratio 2.67 ABG HCO3 28.8 H ABG O2 Saturation 95.8 ABG O2 Content 15.2 L ABG Base Excess 2.4 A-a Gradient 80.4 Oxyhemoglobin 95.2 Total Hemoglobin 11.3 L O2 Delivery Device Bipap O2 Liters/Min Not Reportable FiO2 32 Expiratory Pressure 5 Inspiratory Pressure Not Reportable Quality VTE Prophylaxis VTE prophylaxis: mechanical ordered Hospitalist MIPS Advance Care Plan I have confirmed that the patient's Advanced Care Plan is present, code status is documented, or surrogate decision maker is listed in patient medical record.: Yes Medication Reconciliation I have utilized all available resources to obtain, update and review the patients current medications (includes all prescriptions, OTC, herbals, cannabis, and nutritional supplements).: Yes
--- NOTE | 2025-01-04 15:51 | PM.CNCAR ---
Assessment and Plan Assessment and plan (1) Atrial flutter with rapid ventricular response: Code(s): I48.92 - Unspecified atrial flutter Status: Acute (2) Acute on chronic congestive heart failure: Code(s): I50.9 - Heart failure, unspecified Status: Chronic (3) Atrial fibrillation: Code(s): I48.91 - Unspecified atrial fibrillation Status: Chronic (4) Chronic kidney disease, stage 3: Code(s): N18.30 - Chronic kidney disease, stage 3 unspecified Status: Acute (5) Acute on chronic respiratory failure with hypoxia and hypercapnia: Code(s): J96.21 - Acute and chronic respiratory failure with hypoxia; J96.22 - Acute and chronic respiratory failure with hypercapnia Status: Acute Plan Problem list: AFib on amiodarone (initiated during recent hospitalization in November) but not on Eliquis for 2 years due to rectal sheath hematoma Acute on chronic diastolic heart failure COPD exacerbation Pneumonia Acute on chronic hypoxic hypercapnic respiratory failure on 5 L oxygen at home Hypokalemia with potassium of 3.4-3.5 FARZANEH on CKD with creatinine 1.4 to today History of CVA Former smoker quit in 2021 Anemia Plan: -In general, beta-blockers particularly beta 1 selective agents are relatively safe in COPD. They do not affect the FEV1 treatment response to inhaled beta agonists in patients with COPD. It is preferred not to use beta-blockers in patient with asthma as they can increased bronchial obstruction, airway reactivity, and resistance to the effects of inhaled or oral beta receptor agonists. Given patient has COPD but no asthma (no expiratory wheezing), metoprolol which is a beta 1 selective agent may be safe to use. However, I recommend getting PFTs after discharge to confirm that there is no bronchial obstruction, airway reactivity i.e. there is no asthma. -One randomized trial in patients with moderate to severe COPD and no primary cardiovascular indication for beta-blockers showed metoprolol did not affect the time until 1st COPD exacerbation or rate of exacerbations but increased risk of severe COPD exacerbation leading to hospitalization (doi: [id number].?Epub 2018Jun 12.). Patient had 2 episodes of COPD exacerbation leading to hospitalization. In this situation I would recommend stopping metoprolol. Metoprolol may be resumed at a later date if patient COPD stable and PFTs confirm there is no asthma. -Patient reports significant symptomatic benefit with no AFib exacerbations (no racing heart/indigestion/palpitations) after amiodarone was started in November,. Prior to that she would have multiple episodes during the week. Also, I would not like to stop both metoprolol and amiodarone at the same time as this would may cause rebound tachycardia and AFib exacerbations. Thus I recommend continuing amiodarone for now. Check PFTs serially every 6 months and stop amiodarone if there is a decline in DLCO of greater than 20%. Note that amiodarone induced pulmonary toxicity associated with a restrictive pattern but these findings are nonspecific. -PFT's serially to follow-up lung function while on amiodarone -IV Lasix 40 mg b.i.d. -Check and replace electrolytes to keep potassium greater than 4 and magnesium greater than 2 -Daily ins and outs and weights. Check renal function daily -Management of other medical problems per primary team History of Present Illness History of Present Illness Consult date/time: 01/04/25 15:51 Reason For Visit: COPD exac Narrative: 64-year-old female with history of diastolic heart failure, paroxysmal AFib on amiodarone but off of Eliquis for 2 years secondary to record abdominal rectal sheath hematoma, former smoker quit in 2021, history of CVA, regular venous thrombosis, normocytic anemia, obesity, GERD, COPD with recent hospital admission in November, for acute COPD exacerbation, chronic respiratory failure with hypoxia and hypercapnia on 5 L oxygen presented with dyspnea and fatigue. Pulmonary was consulted and she is being treated with DuoNebs, steroids for COPD exacerbation and antibiotic for pneumonia. She is noted to have an elevated BNP of 859. Chest x-ray showed increasing opacities in the right mid and bilateral lower lung zones suggestive of atelectasis or pneumonia. Cardiology is consulted for alternative medication recommendation to metoprolol and amiodarone in the setting of COPD and respiratory failure. Patient reports chronic shortness of breath with acute worsening during her last hospitalization and again at the present hospitalization. She cannot walk a block or go up and down stairs without becoming short of breath and chest tightness. She reports cough that is worse over the past few weeks. She reports worsening lower extremity swelling over the past few weeks. She reports palpitations, chest tightness that feels like a heartburn when she has AFib episodes are tachycardia. She usually has AFib episodes a couple of times a week. She states that she was started on amiodarone during recent hospitalization in November after which she has not felt AFib episodes. She tolerates the beta-polina and amiodarone without any major side effects. She does not think that these meds have caused her COPD exacerbation. She states that she is dizzy and lightheaded all the time. She feels dizzy when she leans forward and also has chest tightness when she leans forward. She has never had a syncopal episode. She states that she has never had a cardiac catheterization before. Her last PFTs were 5 years ago. She states she has COPD but no asthma. Workup: WBC: 15.7 Hemoglobin: 10.5 Potassium: 3.5 Creatinine: 1.42 (at baseline) BNP: 859 Troponin: Not checked EKg 12/28/2024: Sinus rhythm, right bundle-branch block; a 2nd EKG done same day showed supraventricular tachycardia with rate of 161, right bundle branch block, diffuse ST depression EKG 12/31/2024: Sinus bradycardia with heart rate of 56, right bundle branch block Chest x-ray: Increasing opacities in the right mid and bilateral lower lung zones which could represent worsening atelectasis or pneumonia. Prior workup: TTE 12/28/2024: Normal LVEF of 60-65%, dilated RV with normal systolic function, no significant valvular pathology Review of Systems Review of Systems: A complete review of systems was performed and negative other than those mentioned in [facility] Past Medical History Medical History (Updated 01/01/25 @ 09:40 by Nicky Rock APRN) Hypoxic respiratory failure Atrial flutter with rapid ventricular response Acute exacerbation of chronic obstructive pulmonary disease C. difficile colitis Renal failure Requiring temporary dialysis and CRRT in 09/15. Staphylococcus epidermidis bacteremia (08/2022) Diastolic dysfunction Echo in August 2022 showed normal LV function with an EF of 60 to 65%, grade 1 diastolic dysfunction, moderate enlarged right ventricular chamber, normal right ventricular systolic function, moderate tricuspid valve regurgitation, and pulmonary hypertension with an estimated PASP of 59 mmHg. Normocytic anemia Bacteremia Shock Obesity (BMI 30-39.9) Sepsis Urinary tract infection Acute kidney injury Encephalopathy Chronic anticoagulation Gastroesophageal reflux disease Cerebrovascular accident Pneumonia Chronic obstructive pulmonary disease Acute on chronic respiratory failure with hypoxia and hypercapnia Jugular vein thrombosis 2019 novel coronavirus-infected pneumonia (NCIP) Congestive heart failure COPD (chronic obstructive pulmonary disease) Surgical History Surgical History History of cholecystectomy History of 3 sections History of left knee replacement Family History Family History Father Hypertension Acute myocardial infarction Sibling Hypertension Mother Family history of heart disease in male family member before age 55 Brother Acute myocardial infarction Father Acute myocardial infarction Other Cerebrovascular accident Family history of cardiovascular disease Social History Social History Social History: Surrogate medical decision maker: Sainestor Shin, brother. Code status: Full code. Smoking packs per day: 1 Smoking cigarettes per day: 20.0 Years smoked: 50 Smoking pack-years: 50.00 Smoking status: Former smoker Tobacco type: cigarettes Second hand tobacco smoke exposure: No Smoking end date: 08/23/22 Alcohol intake: never Drinks per week: 0 Substance use: never Substance use type: does not use Do You Feel Safe in your Home?: Yes Lack of Transportation: No Lack of Food: Never True Current Housing: I Have Housing Concerned About Future Housing: No Difficulty Paying Gas/Electric Bills: No Difficulty Paying for Meds: No Currently Unemployed: No Education: High School Diploma/GED Difficulty w/ Childcare or Family Care: No Living arrangements: with family Additional living arrangements comments: Lives with family in [place]. 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 Spiritual care concerns: No Meds Home Medications and Allergies Home Medications ?Medication ?Instructions ?Recorded ?Confirmed ?Type escitalopram oxalate 20 mg tablet 20 mg PO DAILY 09/07/21 12/28/24 History montelukast 10 mg tablet 10 mg PO DAILY 09/07/21 12/28/24 History omeprazole 40 mg capsule,delayed 40 mg PO DAILY 09/07/21 12/28/24 History release trazodone 50 mg tablet 50 mg PO HS 09/07/21 12/28/24 History albuterol sulfate 90 mcg/actuation 2 puff inhalation QID PRN 09/16/21 12/28/24 Rx aerosol inhaler (Proventil HFA) shortness of breath #1 BA unit magnesium hydroxide 400 mg/5 mL 30 ml PO HS PRN Constipation 10/09/22 12/28/24 History oral suspension (Milk of Magnesia) melatonin 5 mg capsule 5 mg PO HS PRN Insomnia 10/09/22 12/28/24 History quetiapine 25 mg tablet 25 mg PO HS 10/09/22 12/28/24 History furosemide 20 mg tablet 20 mg PO BID #60 tabs 10/10/22 12/28/24 Rx amitriptyline 10 mg tablet 10 mg PO HS 10/20/22 12/28/24 History ropinirole 4 mg tablet 4 mg PO HS 10/20/22 12/28/24 History topiramate 100 mg tablet 200 mg PO BID 10/20/22 12/28/24 History potassium chloride 20 mEq oral 20 meq PO DAILY #30 ea 10/23/22 12/28/24 Rx packet ferrous sulfate 325 mg (65 mg 325 mg PO BID #60 tabs 10/25/22 12/28/24 Rx iron) tablet duloxetine 20 mg capsule,delayed 40 mg PO BID 12/02/24 12/28/24 History release amiodarone 200 mg tablet 200 mg PO DAILY 30 days #30 tabs 12/08/24 12/28/24 Rx fluticasone fur. 100 mcg-umeclid 1 inh inhalation DAILY #28 ea 12/08/24 12/28/24 Rx 62.5 mcg-vilant 25 mcg inhalat.powder (Trelegy Ellipta) metoprolol tartrate 50 mg tablet 100 mg (2 x 50 mg) PO Q12HR 30 12/08/24 12/28/24 Rx days #120 tabs prednisone 10 mg tablet 10 mg PO DIRECTED #32 tabs 12/08/24 12/28/24 Rx Allergies Allergy/AdvReac Type Severity Reaction Status Date / Time No Known Drug Allergies Allergy Unknown Verified 12/28/24 00:51 Vital Signs Vital Signs - 24 hr 01/03/25 16:35 01/03/25 16:35 01/03/25 20:00 Temperature Pulse Rate 70 63 Respiratory Rate 16 14 Blood Pressure Pulse Oximetry 95 97 Oxygen Delivery Nasal Cannula BiPAP Oxygen Flow Rate 3 Fraction of Inspired Oxygen 32 01/03/25 20:02 01/03/25 20:06 01/03/25 20:19 Temperature Pulse Rate 67 70 Respiratory Rate 20 20 Blood Pressure Pulse Oximetry 99 Oxygen Delivery Nasal Cannula Oxygen Flow Rate 3 Fraction of Inspired Oxygen 01/03/25 21:32 01/03/25 22:00 01/04/25 04:20 Temperature 36.7 C Pulse Rate 63 67 60 Respiratory Rate 14 18 16 Blood Pressure 102/88 Pulse Oximetry 97 92 92 Oxygen Delivery BiPAP BiPAP Oxygen Flow Rate Fraction of Inspired Oxygen 01/04/25 04:20 01/04/25 04:39 01/04/25 06:00 Temperature 36.3 C L Pulse Rate 60 66 Respiratory Rate 16 18 Blood Pressure 113/60 Pulse Oximetry 92 97 Oxygen Delivery Oxygen Flow Rate Fraction of Inspired Oxygen 01/04/25 07:25 01/04/25 07:25 01/04/25 07:40 Temperature Pulse Rate 59 L 60 Respiratory Rate 18 18 Blood Pressure Pulse Oximetry 95 Oxygen Delivery Nasal Cannula Oxygen Flow Rate 3 Fraction of Inspired Oxygen 01/04/25 08:30 01/04/25 11:21 01/04/25 11:34 Temperature Pulse Rate 60 62 60 Respiratory Rate 18 18 18 Blood Pressure Pulse Oximetry 95 Oxygen Delivery Nasal Cannula Oxygen Flow Rate 3 Fraction of Inspired Oxygen 32 01/04/25 15:17 01/04/25 15:29 Temperature Pulse Rate 68 67 Respiratory Rate 18 18 Blood Pressure Pulse Oximetry Oxygen Delivery Oxygen Flow Rate Fraction of Inspired Oxygen Exam Narrative: General: Alert oriented x3, no acute distress Neck: Supple, JVD + Chest: Right middle lobe and bibasilar rales, no expiratory wheezing, no rhonchi Cardiac: S1, S2 +, regular rate, regular rhythm, no murmurs or rubs Extremities: Bilateral lower extremity edema 1+, no skin rash Neurologic: Alert and oriented x3, no focal neurological deficits Results Labs and Meds 01/03/25 06:37 01/03/25 06:37 Lab results: Intake and Output 01/03/25 01/04/25 01/04/25 23:59 07:59 15:59 Intake Total 401 324 3198 Output Total 1200 Balance 585 670 7660 Intake: Oral 038 724 2209 Output: Catheter Urine 1200 External/Condom 1200 Patient Weight 01/04/25 23:59 Weight 117.4 kg
[2025-01-04] MEDS: AMITRIPTYLINE HCL 10 MG TABLET PO (21:28)
[2025-01-04] MEDS: QUEtiapine FUMARATE 25 MG TABLET PO (21:29)
[2025-01-04] MEDS: traZODone HCL 50 MG TABLET 150 MG PO (21:29)
[2025-01-04] MEDS: traZODone HCL 50 MG TABLET PO (21:29)
[2025-01-04] MEDS: rOPINIRole HCL 1 MG TABLET 4 MG PO (21:29)
[2025-01-04] MEDS: MELATONIN 5 MG TABLET PO (21:30)
[2025-01-05] VITALS (20 sets, daily range): BP systolic 111–125; BP diastolic 40–59; PULSE 63–94; RESP 17–23; TEMP 36.3–36.7; O2SAT 92–96
[2025-01-05] MEDS: IPRATROPIUM BR 0.02% INH SOLN 0.5 MG/2.5 ML VIAL INHALATION ×6 (01:50→23:12)
[2025-01-05] MEDS: LEVALBUTEROL NEB 1.25 MG/3 ML 0.63 MG INHALATION ×7 (01:50→23:30)
[2025-01-05 04:27] LABS: Basophils Absolute Auto 0.1 K/mm3 (0.0-0.1); Basophils Percent Auto 0.6 % (0.2-1.2); Eosinophils Absolute Auto 0.2 K/mm3 (0-0.3); Eosinophils Percent Auto 1.4 % (0-4.4); Hematocrit 35.2 % (37.0-47.0); Hemoglobin 10.6 g/dL (12.0-15.0); Immature Granulocyte Absolute 1.49 K/mm3 (0.00-0.031); Immature Granulocyte Percent A 9.3 % (0-0.5); Lymphocytes Absolute Auto 3.06 K/mm3 (0.9-3.2); Mean Corpuscular HGB Conc 30.1 g/dl (32-36); Mean Corpuscular Hemoglobin 26.5 pg (26-34); Mean Platelet Volume 9.1 fl (7.4-10.4); Monocytes Absolute Auto 0.8 K/mm3 (0.1-0.6); Monocytes Percent Auto 5.2 % (2.6-8.5); Neutrophils Absolute Auto 10.4 K/mm3 (1.3-6.7); Neutrophils Percent Auto 64.5 % (45.5-73.1); Platelet Count Result 303 k/mm3 (150-375); Red Cell Distribution Width 14.6 % (11.5-14.5); White Blood Count 16.1 K/mm3 (4.5-10.0)
[2025-01-05 04:36] LABS: Hemoglobin A1C 5.9 % (<5.7)
[2025-01-05 04:50] LABS: Alanine Aminotransferase 16 U/L (6-35); Albumin Level 3.2 g/dL (3.5-5.1); Alkaline Phosphatase 83 U/L (38-126); Anion Gap 4 mmol/L (4-12); Aspartate Amino Transferase 17 U/L (14-36); Bilirubin,Total 0.3 mg/dL (0.2-1.3); Blood Urea Nitrogen 25 mg/dL (7-17); CRP 2.3 mg/dL (<1.0); Calcium 8.5 mg/dL (8.4-10.2); Carbon Dioxide 37 mmol/L (22-30); Chloride 96 mmol/L (98-107); Estimated CRCL calculation 44 ml/min; Estimated Glomerular Filt Rate 36; Glucose 121 mg/dL (65-110); Potassium 3.5 mmol/L (3.4-5.0); Sodium 137 mmol/L (137-145)
[2025-01-05 05:16] LABS: Erythrocyte Sedimentation Rate 60 mm/hr (0-20)
[2025-01-05 07:10] LABS: NT Pro B Type Natriuretic Pept 614 pg/mL (19.9-100)
--- NOTE | 2025-01-05 07:29 | P.PNIM_ITS ---
Progress Note: A&P Assessment and Plan (1) Acute exacerbation of chronic obstructive pulmonary disease: Code(s): J44.1 - Chronic obstructive pulmonary disease with (acute) exacerbation Status: Acute Assessment and Plan: Has been on oxygen for over 5 years. 50 pack year hx tobacco use, quit 08/23/2022. Home meds: Trelegy, montelukast 10, albuterol PRN Was intitially on Bipap, 5/10 abg worse on bipap 15/5,28%. will use 20/5, 32% tonight with repeat abg in am and apnea link overnight. --stopped solumedrol and started prednisone 40 mg po. Pulm continues to follow --Pulmonology following, appreciate recommendations: Could not tolerate bipap but tolerating noninvasive ventillation with AVAPs (2) Iron deficiency anemia: Code(s): D50.9 - Iron deficiency anemia, unspecified Status: Chronic Assessment and Plan: * Continue home meds once they are confirmed. * Monitor and trend CBC. (3) Atrial fibrillation: Code(s): I48.91 - Unspecified atrial fibrillation Status: Chronic Assessment and Plan: Home meds: amiodarone 200mg daily, metoprolol 100mg BID * Rate controlled, decreased metoprolol to 50mg BID yesterday, pulmonary holding amiodarone for concern for subacute amiodarone toxicity * Monitor on tele. Half life of amiodarone is very prolonged so may not see changes in heart rate short term. Could consider event monitor for discharge if not resumed. Will need close cardiology follow up * Cardiology consulted yesterday and appreciate recommendations * RRR, Monitor on tele (4) Acute on chronic congestive heart failure: Code(s): I50.9 - Heart failure, unspecified Status: Chronic Assessment and Plan: * Chronic heart failure * Last ECHO showing normal LVSF w/EF of 60-65% on 12/02/24. * Daily weight * Accurate Intake and output * stable (5) Insomnia: Code(s): G47.00 - Insomnia, unspecified Status: Acute Assessment and Plan: insomnia- melatonin doesnot help much added trazadone 12/29- helped-will continue avoid atarax - 01/03 wants dose increase as did not help much last night -will increase to 150 mg and monitor (6) Hallucination: Code(s): R44.3 - Hallucinations, unspecified Status: Acute Assessment and Plan: Reports shadows/smoke in her vision intermittently, has noticed when she has a UTI in the past. Intermittent, but started about [address] no acute fidnings. 01/01 UA negative (7) Thyroid nodule: Code(s): E04.1 - Nontoxic single thyroid nodule Status: Acute Assessment and Plan: CT Chest showed a large left thyroid nodule, increased in size since 2022, 3.5cm mass --Check TSH --following with endocrinology outpatient for thyroid mass (8) Weakness: Code(s): R53.1 - Weakness Status: Acute Assessment and Plan: Patient reports cardiac arrest 3 years ago that required CPR. Subsequently had lower extremity weakness and noticed jerking movements to lower extremities. Cardiac arrest was in the setting of renal failure but records are not available. Reports gradually increased weakness and associated with myalgias. Differential includes deconditioning, autoimmune, paraneoplastic, steroid related --Check VIRIDIANA, TSH, CK, aldolase --PT/OT Plan 62 minutes Time Spent With Patient Time: 63 minutes Subjective Date/time seen: 01/05/25 07:29 Interval history: Still short of breath with activity, about the same CT chest done today, showed 3.5cm left thyroid mass, mild emphysema Concern for subacute reaction to amiodarone by pulmonary, amiodarone on hold Monitoring on tele since also off metoprolol Review of Systems Review of Systems: All systems reviewed & are unremarkable except as noted in HPI and below Exam Narrative: General - Awake and alert. No acute distress Eyes - PERRLA, EOM intact ENT - No thrush, No erythema Neck - No noticeable or palpable swelling Lymph Nodes - No lymphadenopathy Cardiovascular - RRR no m/r/g, no JVD Lungs: Decreased, No wheezing, use of accessory muscles, no crackles Skin - Skin warm and dry, no wounds or rashes Abdomen - Normal bowel sounds, abdomen soft and nontender Extremities - No edema, cyanosis or clubbing Musculoskeletal - 2/5 strength lower extremities, normal range of motion, no swollen or erythematous joints. Neurological ? Alert and oriented x 3, CN 2-12 grossly intact. Psych: Normal mood and affect Objective Data Vital Signs Vital Signs: Vital Signs - 24 hr 01/04/25 07:40 01/04/25 08:30 01/04/25 11:21 Temperature Pulse Rate 60 60 62 Respiratory Rate 18 18 18 Blood Pressure Pulse Oximetry 95 Oxygen Delivery Nasal Cannula Oxygen Flow Rate 3 Fraction of Inspired Oxygen 32 01/04/25 11:34 01/04/25 14:00 01/04/25 15:17 Temperature 98.0 F Pulse Rate 60 67 68 Respiratory Rate 18 16 18 Blood Pressure 104/56 L Pulse Oximetry 94 Oxygen Delivery Oxygen Flow Rate Fraction of Inspired Oxygen 01/04/25 15:29 01/04/25 20:45 01/04/25 21:20 Temperature Pulse Rate 67 72 Respiratory Rate 18 17 Blood Pressure Pulse Oximetry 96 Oxygen Delivery Nasal Cannula Oxygen Flow Rate 3 Fraction of Inspired Oxygen 01/04/25 21:28 01/04/25 22:20 01/05/25 01:50 Temperature 97.8 F Pulse Rate 69 Respiratory Rate 20 22 H 18 Blood Pressure 123/74 Pulse Oximetry 96 Oxygen Delivery BiPAP BiPAP Oxygen Flow Rate Fraction of Inspired Oxygen 01/05/25 02:54 01/05/25 06:00 Temperature 98.0 F Pulse Rate 70 68 Respiratory Rate 18 20 Blood Pressure 118/50 L Pulse Oximetry 96 Oxygen Delivery Oxygen Flow Rate Fraction of Inspired Oxygen Intake/Output Intake/Output: Intake & Output 01/02/25 01/03/25 01/04/25 01/05/25 23:59 23:59 23:59 23:59 Intake Total 2770 3150 5090 650 Output Total 1300 3200 2000 1300 Balance 1470 -50 3090 -650 Meds/Results Medications: Active Medications Generic Name Dose Route Start Last Admin Trade Name Freq PRN Reason Stop Dose Admin Hydrocodone Bitart/Acetaminophen 1 tab 12/31/24 09:42 12/31/24 10:10 Hydrocodone/Acetaminophen (*Crx) 5-325 Mg Tablet PO 1 tab Q4H PRN Administration Pain Rated 4-6 Amitriptyline HCl 10 mg 12/28/24 21:00 01/04/25 21:28 Amitriptyline Hcl 10 Mg Tablet PO 10 mg HS YODIT Administration Benzonatate 200 mg 01/03/25 09:00 01/04/25 17:11 Benzonatate 100 Mg Capsule PO 200 mg TID YODIT Administration Duloxetine HCl 40 mg 12/28/24 17:00 01/04/25 17:11 Duloxetine Hcl 20 Mg Capsule.Dr PO 40 mg BID YODIT Administration Escitalopram Oxalate 20 mg 12/28/24 15:30 01/04/25 08:25 Escitalopram Oxalate 10 Mg Tablet PO 20 mg DAILY YODIT Administration Ferrous Sulfate 325 mg 12/28/24 17:00 01/04/25 17:11 Ferrous Sulfate [address] BY MOUTH 325 mg BID YODIT Administration Furosemide 20 mg 12/28/24 17:00 01/04/25 17:11 Furosemide 20 Mg Tablet PO 20 mg BID YODIT Administration Guaifenesin 1,200 mg 12/28/24 21:00 01/04/25 21:29 Guaifenesin 12 Hr 600 Mg Tabcr PO 1,200 mg Q12HR YODIT Administration Ceftriaxone Sodium 1 gm in 50 mls @ 100 mls/hr 01/01/25 09:40 01/04/25 08:26 Rocephin 1 Gm/Ns 50 Ml IVPB 100 mls/hr QAM YODIT Administration Ipratropium [place] 0.5 mg 12/29/24 12:00 01/05/25 01:50 Ipratropium Br 0.02% Inh Soln 0.5 Mg/2.5 Ml Vial INHALATION 0.5 mg Q4HRT YODIT Administration Levalbuterol HCl 0.63 mg 01/03/25 12:00 01/05/25 01:50 Levalbuterol Neb 1.25 Mg/3 Ml INHALATION 0.63 mg Q4HRT YODIT Administration Lidocaine 1 patch 12/31/24 11:55 01/04/25 08:26 Lidocaine 5% Patch TRANSDERM Not Given DAILY YODIT Magnesium Hydroxide 30 ml 12/28/24 14:40 Magnesium Hydroxide Susp 30 Ml Udc PO HS PRN Constipation Melatonin 5 mg 12/28/24 14:40 01/04/25 21:30 Melatonin 5 Mg Tablet PO 5 mg HS PRN Administration Insomnia Montelukast Sodium 10 mg 12/29/24 09:00 01/04/25 08:25 Montelukast Sodium 10 Mg Tablet PO 10 mg DAILY YODIT Administration Pantoprazole Sodium 40 mg 12/28/24 21:00 01/04/25 21:29 Pantoprazole 40 Mg Tablet PO 40 mg Q12HR YODIT Administration Prednisone 40 mg 01/03/25 09:15 01/04/25 08:25 Prednisone 20 Mg Tablet PO 40 mg DAILY@0800 YODIT Administration Quetiapine Fumarate 25 mg 12/28/24 21:00 01/04/25 21:29 Quetiapine Fumarate 25 Mg Tablet PO 25 mg HS YODIT Administration Ropinirole HCl 4 mg 12/28/24 21:00 01/04/25 21:29 Ropinirole Hcl 1 Mg Tablet PO 4 mg HS YODIT Administration Topiramate 200 mg 12/28/24 21:00 01/04/25 21:28 Topiramate 100 Mg Tablet PO 200 mg Q12HR YODIT Administration Trazodone HCl 50 mg 12/28/24 21:00 01/04/25 21:29 Trazodone Hcl 50 Mg Tablet PO 50 mg HS YODIT Administration Trazodone HCl 150 mg 01/03/25 13:16 01/04/25 21:29 Trazodone Hcl 50 Mg Tablet PO 150 mg HS PRN Administration Insomnia Radiology Results: ITS Impressions Chest CT 12/28/24 15:42 IMPRESSION: No cross-sectional imaging evidence to suggest the presence of pneumonia. Bibasilar atelectasis, unchanged from a recent radiograph, as detailed above.. Chest X-Ray 01/02/25 09:39 IMPRESSION: 1. Increasing opacities in the right mid and bilateral lower lung zones which could represent worsening atelectasis or pneumonia. Modified Barium Swallow 01/03/25 15:10 IMPRESSION: Patient tolerated regular consistency oral feedings in the upright position. Please correlate with speech pathologist findings and specific feeding recommendations. Labs Labs: Laboratory Results - last 24 hr 01/05/25 04:14 WBC 16.1 H RBC 4.00 L Hgb 10.6 L Hct 35.2 L MCV 88.0 MCH 26.5 MCHC 30.1 L RDW 14.6 H Plt Count 303 MPV 9.1 Immature Gran % (Auto) 9.3 H Neut % (Auto) 64.5 Lymph % (Auto) 19.0 Harris % (Auto) 5.2 Eos % (Auto) 1.4 Baso % (Auto) 0.6 Lymph # (Auto) 3.06 Harris # (Auto) 0.8 H Eos # (Auto) 0.2 Baso # (Auto) 0.1 Abs Immat Gran (auto) 1.49 H Absolute Neuts (auto) 10.4 H Absolute Nucleated RBC 0.000 Nucleated RBC % 0.0 ESR 60 H Sodium 137 Potassium 3.5 Chloride 96 L Carbon Dioxide 37 H Anion Gap 4 BUN 25 H Creatinine 1.46 H Estim Creat Clear Calc 44 Estimated GFR 36 L Glucose 121 H Hemoglobin A1c 5.9 H Calcium 8.5 Total Bilirubin 0.3 AST 17 ALT 16 Alkaline Phosphatase 83 C-Reactive Protein 2.3 H NT-Pro-B Natriuret Pep 614 H Total Protein 6.0 L Albumin 3.2 L Quality VTE Prophylaxis VTE prophylaxis: mechanical ordered Hospitalist MIPS Advance Care Plan I have confirmed that the patient's Advanced Care Plan is present, code status is documented, or surrogate decision maker is listed in patient medical record.: Yes Medication Reconciliation I have utilized all available resources to obtain, update and review the patients current medications (includes all prescriptions, OTC, herbals, cannabis, and nutritional supplements).: Yes
[2025-01-05] MEDS: PANTOPRAZOLE 40 MG TABLET PO ×2 (08:41→21:31)
[2025-01-05] MEDS: TOPIRAMATE 100 MG TABLET 200 MG PO ×2 (08:41→21:31)
[2025-01-05] MEDS: MONTELUKAST SODIUM 10 MG TABLET PO (08:41)
[2025-01-05] MEDS: guaiFENesin 12 HR 600 MG TABCR 1200 MG PO ×2 (08:41→21:31)
[2025-01-05] MEDS: ESCITALOPRAM OXALATE 10 MG TABLET 20 MG PO (08:41)
[2025-01-05] MEDS: FERROUS SULFATE 325 MG TABLET DR BY MOUTH ×2 (08:42→17:19)
[2025-01-05] MEDS: predniSONE 20 MG TABLET 40 MG PO (08:42)
[2025-01-05] MEDS: FUROSEMIDE 20 MG TABLET PO ×2 (08:42→10:55)
[2025-01-05] MEDS: DULoxetine HCL 20 MG CAPSULE.DR 40 MG PO ×2 (08:42→17:19)
[2025-01-05] MEDS: BENZONATATE 100 MG CAPSULE 200 MG PO ×3 (08:42→17:19)
--- NOTE | 2025-01-05 09:46 | P.PNPL_ITS ---
Progress Note: A&P Assessment and Plan (1) Chronic obstructive pulmonary disease: Code(s): J44.9 - Chronic obstructive pulmonary disease, unspecified Status: Chronic Assessment and Plan: Regarding her COPD, 50 pack year tobacco use, quit 08/23/2022, alpha 1 anti trypsin genotype MZ, alpha 1 anti trypsin level 134, normal. The patient has been on oxygen for the last 5 years. I have no PFTs. She is using 5 L at rest with home saturations 92-96%. First CT scan in our system is from 08/27/2022 shows mild apical predominant centrilobular emphysema. Repeat CT angiogram of the chest on 12/02/2024 demonstrates mild apical predominant centrilobular emphysema. Patient is maintained on trelegy inhaler but she does not use a because of the taste. Patient takes Trelegy 100, montelukast 10 and albuterol p.r.n.. Patient tells me she wheezes every day when she takes rescue albuterol at home it relieves her wheezing for 1-2 minutes. 12/01/2024: White blood cell count 14.8, eosinophils 0.6%= 89 per micro L. patient presents with shortness of breath, no change in phlegm production or color, worsening shortness of breath and hypoxemic respiratory failure. Patient treated with bronchodilators, steroids and BiPAP. 12/28/24: The patient tells me that the day after she left the hospital she started getting worse with fatigue and then worsening oxygenation about 5 days ago. On her prescribed 2 L her saturations were in the 80s and then as low as 79%. She denied fever, chills, rigors. She had a dry cough with no phlegm and no hemoptysis. Currently says she is improved and breathing 50% back to her normal but she feels still feels tired and short of breath. The patient told me she had improved and could come off of the mask and she was placed on 3 L nasal cannula with saturations 91% Plan: Will continue treatment for possible COPD exacerbation. Patient has wheezing but has wheezing every day. I will decrease her Solu-Medrol to 20 mg IV q.6 hours. Continue DuoNebs q.6 hours. Patient is on levofloxacin for possible pneumonia and bronchitis. I will obtain a D-dimer and if positive will get a CT angiogram of the chest. If negative will get a CT scan of the chest looking for focal infiltrates consistent with a pneumonia. Goal saturation 90- 94%, Adjust oxygen accordingly. Will add guaifenesin 1200 mg p.o. b.i.d. Later in the day patient had a CT scan of the chest with moderate apical predominant centrilobular emphysema and bibasilar atelectasis with no evidence of pneumonia. 12/29/2024: Patient states she had a bad night and his breathing worse today. Her cough is increased with no phlegm and no blood. She is afebrile. White blood cell count 15.2, creatinine 1.61. Currently patient is on 4 L nasal cannula saturations 94%. Patient received a Xopenex treatment and had a heart rate 160 that decreased on its own and required no medical intervention. Plan: I will continue Solu-Medrol 20 mg IV q.6. I will discontinue her levalbuterol due to the tachy arrhythmia increase her ipratropium nebulizers to q.4 hours. No evidence of pneumonia. Will treat for tracheobronchitis with Levaquin 750 mg p.o. q.48h, day 2. Continue guaifenesin 12 50 b.i.d., montelukast 10. Patient is on Lasix 20 p.o. b.i.d.. 12/30/24: Patient tells me she is having a better day today. She says that her breathing is 75% back to her normal. Her cough is improved but increased from baseline. She has no phlegm and no hemoptysis. She is afebrile. Her weight today is 112.7 kg. Patient wore the hospital noninvasive ventilator with the AVAPS mode and said that she slept well. Plan: I will change the patient to prednisone 40 mg p.o. q.day, Day 3 of steroids. I will continue ipratropium nebulizers q.4 hours. Continue montelukast 10 q day and guaifenesin 1200 p.o. b.i.d.. continue Levaquin for tracheobronchitis, day 3. Encouraged her out of bed to chair, ambulation as tolerated, physical therapy has been ordered on 12/29/2024. Respiratory path ogen panel, urine Legionella, urine pneumococcal antigen pending. pulmonary inpatient services will resume on 01/02/2025, call with questions. 01/03/2024 patient states that she is breathing 75% back to her normal. Her dyspnea on exertion is back at her normal. His cough is persistent but improved. She is afebrile. White blood cell count 14.1, creatinine 1.46. Her weight is 114. Her currently the patient is on 3 L with saturation 95%. Patient wore the hospital BiPAP with a rate of 20 pressures 20/5 and 32% FiO2 and said that she could not sleep last night because the pressure was too high and the machine had a loud leak and kept her up. BNP 859 which is increased from 563. Continue Lasix 20 p.o. b.i.d.. Plan: Patient continues to improve. Today is day 6 of prednisone and will discontinue after today's dose. Continue ipratropium q.4 hours. Patient is on Levaquin day 6. She is on ceftriaxone day 2 for UTI. Goal saturation 90- 94%, adjust oxygen accordingly. 01/04/2024: Patient tells me she is breathing worse today. She says her cough is more persistent and heavier, remains dry with no phlegm. Her breathing is worse. She is able to walk with physical therapy yesterday and did well. White blood cell count 15.7, creatinine 1.42. Respiratory pathogen panel is negative. Plan. Patient worse today and will restart prednisone 40. Her respiratory pathogen panel is negative. I will obtain a modified barium swallow. Will begin Tessalon Perles 200 t.i.d. standing. Will start levalbuterol 0.63 mcg q.4 hours to see if this will provide some relief. Patient remains on Lasix 20 p.o. b.i.d. she is status post 7 days of levofloxacin and now on ceftriaxone for UTI, day 2. Continue guaifenesin 1200 q.12 hours, Vest therapy, montelukast. Patient is on metoprolol 100 q.12 hours as well as amiodarone 200, Later in the day patient had a modified barium swallow with no evidence of aspiration. 01/05/2024: Patient tells me she is breathing better today. Her cough persists but is better. Her shortness of breath and wheezing persists. She is afebrile. her weight today is 117.4 kg, yesterday she was 1.4 L positive on Lasix 20 p.o. b.i.d.. Plan: Patient had just received vest therapy as well as a nebulized treatment and she still had diffuse wheezing. Overall she is no better after 8 days of steroids, course of levofloxacin and now on ceftriaxone, bronchodilators, Lasix, montelukast and guaifenesin. Last admission on 12/02/2024 patient had AFib with RVR and her metoprolol was increased from 25 XL a day to 100 p.o. b.i.d. and she was started on amiodarone. She tells me she has had persistent symptoms since then. I have placed a hold on the metoprolol and amiodarone. Discussed with Lesley Rock and she will consult Cardiology regarding AFib management. 01/05/25: Overall the patient states that her breathing remains compromised but about the same as yesterday. Her cough has improved and she has no phlegm. Her dyspnea on exertion is the same. Currently she is on 3 L nasal cannula saturations 95%. I decreased her to 2 L. Her white blood cell count is 16.1, creatinine is 1.46. She is positive 3 L yesterday and 4.1 L since admission. Her weight is 117.2 kg her BNP is 614 which is improved from 859 on 01/02/2025. Plan: Patient has not improved. Continue prednisone 40 mg p.o. q.day, day 9, nebulized ipratropium and levalbuterol q.4 hours, montelukast 10, guaifenesin 1200 p.o. b.i.d.. Completed levofloxacin for 7 days and now on ceftriaxone for UTI day 5. I will order CT scan of the chest today. Will try Lasix 40 p.o. b.i.d. to see if she improves with diuresis. Metoprolol and amiodarone have been held since 01/04. Cardiology consult obtained yesterday and appreciate their very detailed and thoughtful consult. Regarding the amiodarone, I agree with her consult note regarding chronic amiodaarone toxicity but I am more worried about a subacute reaction to amiodarone rather than chronic amiodarone lung toxicity. Since patient still has respiratory distress I recommend discontinuation of amiodarone at this time. Discussed with Lesley Rock. Will follow with you. (2) Chronic hypercapnic respiratory failure: Code(s): J96.12 - Chronic respiratory failure with hypercapnia Status: Acute Assessment and Plan: Last admission 12/02/2024 to 12/08/2024) patient presented with hypercarbic respiratory failure with ABG 7.33/65/103 and serum bicarb > 40. 12/28/2024: She again presents with shortness of breath, hypoxemic and hypercarbic respiratory failure. Current venous blood gas listed as room air 7.33/72/ 43. Patient has chronic hypercarbic respiratory failure from her COPD with a room air blood gas of 7.33/72/43 (venous) and a serum bicarbonate greater than 37. She would benefit from a noninvasive ventilation as this is her 2nd hospitalization in the last month for hypercarbic respiratory failure. noninvasive ventilation would prevent further hospitalizations and deterioration. Patient was placed on BiPAP With no rate and pressures 15/5 with 28% with blood gas of 7.37/64/69. Patient was then placed on BiPAP with no rate and pressure 20/5 and 32% with a blood gas of 7.38/64/74. ApneaLink on these settings demonstrated adequate oxygenation. Patient was then placed on BiPAP rate of 20 pressures 20/5 and she said she could not tolerate these settings as it was too much pressure, high leak and she could not sleep at night. I will initiate the process for a home noninvasive ventilator with the AVAPS mode through her [employer], oxygen DME is [employer] who we will use. The patient told me she had improved and could come off of the mask and she was placed on 3 L nasal cannula with saturations 91% 12/28/24: Currently the patient is on BiPAP rate of 18, pressures 14/8 with 40% FiO2. Patient told me these settings were uncomfortable for her and I changed them to noninvasive ventilation with the AVAPS mode rate of 14, tidal volume 500, EPAP 5, minimal inspiratory pressure 6, maximal inspiratory pressure 25, inspiratory time 1.0, rise of 1 which is the fastest and 40% FiO2. She said this was more comfortable. The patient told me she had improved and could come off of the mask and she was placed on 3 L nasal cannula with saturations 91%. Plan: noninvasive ventilation with the AVAPS mode p.r.n. during the day. I recommend she wear this tonight. After she has improved will repeat ABG during the day. 12/29/24: Patient attempted to wear the fullface mask with the AVAPS settings as above and she did wear the mask but she could not sleep. plan: Patient says she will try to wear the AVAPS again tonight. I told her if she can not sleep with the mask on that she needs to take the mask off so that she can try to sleep. 12/30/24: Patient wore the hospital noninvasive ventilator with the AVAPS mode and said that she slept well. Plan: Patient tells me she still requires breathing support at night. If the patient qualifies for ventilatory support with a home machine it will need to be BiPAP with no rate. Tonight will place the patient on BiPAP no rate, pressures 15/5 and 28% FiO2 with overnight oximetry and ABG in the morning. 12/31/24: Patient wore a hospital BiPAP with no rate pressures 15/5 with 28% with blood gas the next morning 7.37/64/69 and overnight oximetry with hypoxia. 01/02/2024: Patient wore the hospital BiPAP with no rate pressures 20/5 with 32% a blood gas of 7.38/64/74 and overnight oximetry with adequate saturations. 01/03/2024 Patient wore the hospital BiPAP with a rate of 20 pressures 20/5 and 32% FiO2 and said that she could not sleep last night because the pressure was too high and the machine had a loud leak and kept her up. Plan: I will place the patient on noninvasive ventilation with the AVAPS mode rate of 14, tidal volume 500, EPAP 5, minimum inspiratory pressure 6, maximum inspiratory pressure 25, inspiratory time 1.0, rise of 1 and 32% FiO2. I will obtain an overnight oximetry and ABG on these settings. I will initiate home noninvasive ventilation through [facility] and her insurance [employer]. Later in the day filled out a home noninvasive ventilator form for [facility] through [employer] insurance for IVAPS with AE: Rate 14, tidal volume 500, minimum EPAP 5, maximum EPAP 15, minimum pressure support 6, maximum pressure support 25, 3 L bleed in. 01/03/25: Patient wore the hospital machine BiPAP rate of 20, pressures 20/5, inspiratory time 1, rise of 3 and 32% FiO2. She said she had a difficult time sleeping in the mask did not fit with a large leak. Overnight oximetry on these settings with recording duration of 7 hours and 40 minutes, average saturation 94%. Low saturation 63%. Time with saturation less than or equal to 88% 6 minutes, oxygen desaturation index 5.1. ABG 7.36/55/78. Plan: Waiting to hear back from his DME [employer] regarding a home machine. tonight AVAPS mode rate of 14, tidal volume 500, EPAP 5, minimum inspiratory pressure 6, maximum inspiratory pressure 25, inspiratory time 1.0, rise of 1 and 32% FiO2. I will obtain an overnight oximetry and ABG on these settings. 01/04/25: Patient could not tolerate the BiPAP but does tolerate noninvasive ventilation with the AVAPS mode. She used the hospital noninvasive ventilator with the AVAPS mode rate of 14, tidal volume 500, EPAP 5, minimal inspiratory pressure 6, maximal inspiratory pressure 25, I-time 1.0, rise of 1 and 32% FiO2. Patient said she slept well and could tolerate this machine. There was no leak. Patient had an overnight oximetry on these settings with recording duration of 6 hours and 56 minutes, average saturation 95%, low saturation 89%, time with saturation less than or equal to 88% was 0 minutes, oxygen desaturation index 2.1. ABG prior to removal was 7.35/53/85. Plan: Current noninvasive ventilation with the AVAPS mode provide adequate ventilation and oxygenation. Waiting to hear from [facility] regarding home noninvasive ventilation approval. 01/05/25: patient tells me she wore the hospital noninvasive ventilation with the AVAPS mode last night and slept well. Plan: Patient has been denied a noninvasive ventilator by [employer], her insurance company. This has been of relate to us verbally and we are waiting for the formal denial. Once this is in place will obtain a phone number for a peer to peer review. While she is in the hospital continue hospital noninvasive ventilator with 32% FiO2. Subjective Date/time seen: 01/05/25 09:46 Interval history: 12/28/2024: This is a new pulmonary consult for COPD exacerbation. 64-year-old with a history of AFib off anticoagulation for 2 years secondary to abdominal rectal sheath hematoma, diastolic dysfunction, GERD, HTN, restless legs syndrome, anxiety and COPD with chronic hypoxemic respiratory failure on 5 L at Night and 2 L with rest and activity per home O2 assessment on 12/08/2024. I previously saw the patient as an inpatient on 12/02/2024 when she was admitted for COPD exacerbation. Regarding her COPD, 50 pack year tobacco use, quit 08/23/2022, alpha 1 anti trypsin genotype MZ, alpha 1 anti trypsin level 134, normal. The patient has been on oxygen for the last 5 years. I have no PFTs. She is using 5 L at rest with home saturations 92-96%. First CT scan in our system is from 08/27/2022 shows mild apical predominant centrilobular emphysema. Repeat CT angiogram of the chest on 12/02/2024 demonstrates mild apical predominant centrilobular emphysema. Patient is maintained on trelegy inhaler but she does not use a because of the taste. Patient takes Trelegy 100, montelukast 10 and albuterol p.r.n.. Patient tells me she wheezes every day when she takes rescue albuterol at home it relieves her wheezing for 1-2 minutes. 12/01/2024: White blood cell count 14.8, eosinophils 0.6%= 89 per micro L. 12/02/2024 through 12/08/2024:? Presented to the emergency room with COPD exacerbation, hypercarbic and hypoxemic respiratory failure, AFib with RVR, and fluid overload.? Treated with BiPAP, steroids, bronchodilators, antibiotics, and diuretics.? CTA of the chest with no PE, mild apical predominant centrilobular emphysema, ?upper and lower extremity Dopplers negative for DVT.? Echocardiogram with LVEF 60-65%, RV was dilated with normal systolic function.? Left atrium normal, right atrium normal, RVSP 27. ?After she improved clinically on 12/06/2024: ABG on 5 L nasal cannula pH 7.39/48/97. ?Patient improved and was discharged on 12/08/24 on trelegy 100, rescue albuterol, montelukast 10, guaifenesin 600 b.i.d. p.r.n. congestion, no Lasix, amiodarone 200 b.i.d., metoprolol 100 q.12, she had completed 5 days of steroids in house and I did not recommend a discharge taper, however, the hospitalist discharge her on a 15 day prednisone taper. Required 2 L oxygen at rest and with activity per home O2 assessment and per overnight oximetry required 5 L NC when she naps or sleeps. ?12/08/24: creatinine 1.68. Her weight is 120.8 kg.? 12/28/2024: Presented to the emergency room with shortness of breath. blood pressure 136/117, heart rate 76, nasal cannula saturation 93%. Patient had wheezing throughout all lung paul. White blood cell count 13.4 with eosinophils 1.8%=241/ul. creatinine 1.34, serum bicarbonate 37, BNP 563. Venous blood gas listed as room air 7.33/72/ 43. patient placed on BiPAP, treated with bronchodilators, received IV steroids per EMS, lasix 40 IV. 12/28/24: Currently the patient is on BiPAP rate of 18, pressures 14/8 with 40% FiO2. Patient told me these settings were uncomfortable for her and I changed them to noninvasive ventilation with the AVAPS mode rate of 14, tidal volume 500, EPAP 5, minimal inspiratory pressure 6, maximal inspiratory pressure 25, inspiratory time 1.0, rise of 1 which is the fastest and 40% FiO2. She said this was more comfortable. The patient told me she had improved and could come off of the mask and she was placed on 3 L nasal cannula with saturations 91% The patient tells me that the day after she left the hospital she started getting worse with fatigue and then worsening oxygenation about 5 days ago. On her prescribed 2 L her saturations were in the 80s and then as low as 79%. She denied fever, chills, rigors. She had a dry cough with no phlegm and no hemoptysis. Currently says she is improved and breathing 50% back to her normal but she feels still feels tired and short of breath. Later in the day patient had a CT scan of the chest with moderate apical predominant centrilobular emphysema and bibasilar atelectasis with no evidence of pneumonia. 12/29/2024: Patient states she had a bad night and his breathing worse today. Her cough is increased with no phlegm and no blood. She is afebrile. White blood cell count 15.2, creatinine 1.61. Currently patient is on 4 L nasal cannula saturations 94%. Patient tempted to wear the fullface mask with the AVAPS settings as above and she did wear the mask but she could not sleep. Alem ent received a Xopenex treatment and had a heart rate 160 that decreased on its own and required no medical intervention. 12/30/24: Patient tells me she is having a better day today. She says that her breathing is 75% back to her normal. Her cough is improved but increased from baseline. She has no phlegm and no hemoptysis. She is afebrile. Her weight today is 112.7 kg. Patient wore the hospital noninvasive ventilator with the AVAPS mode and said that she slept well. 12/31/24: Patient wore a hospital BiPAP with no rate pressures 15/5 with 28% with blood gas the next morning 7.37/64/69 and overnight oximetry with hypoxia. 01/02/2024: Patient wore the hospital BiPAP with no rate pressures 20/5 with 32% a blood gas of 7.38/64/74 and overnight oximetry with adequate saturations. 01/03/2024 patient states that she is breathing 75% back to her normal. Her dyspnea on exertion is back at her normal. His cough is persistent but improved. She is afebrile. White blood cell count 14.1, creatinine 1.46. Her weight is 114. Patient wore the hospital BiPAP with a rate of 20 pressures 20/5 and 32% FiO2 and said that she could not sleep last night because the pressure was too high and the machine had a loud leak and kept her up. Later in the day filled out a home noninvasive ventilator form for [facility] through [employer] insurance for IVAPS with AE: Rate 14, tidal volume 500, minimum EPAP 5, maximum EPAP 15, minimum pressure support 6, maximum pressure support 25, 3 L bleed in. 01/04/2024: Patient tells me she is breathing worse today. She says her cough is more persistent and heavier, remains dry with no phlegm. Her breathing is worse. She is able to walk with physical therapy yesterday and did well. White blood cell count 15.7, creatinine 1.42. Respiratory pathogen panel is negative. Patient wore the hospital machine BiPAP rate of 20, pressures 20/5, inspiratory time 1, rise of 3 and 32% FiO2. She said she had a difficult time sleeping in the mask did not fit with a large leak. She cannot sleep with this machine. Overnight oximetry on these settings with recording duration of 7 hours and 40 minutes, average saturation 94%. Low saturation 63%. Time with saturation less than or equal to 88% 6 minutes, oxygen desaturation index 5.1. ABG 7.36/55/78. Levalbuterol and Tessalon Perles added. 01/05/2024: Patient tells me she is breathing better today. Her cough persists but is better. Her shortness of breath and wheezing persists. She is afebrile. her weight today is 117.4 kg, yesterday she was 1.4 L positive on Lasix 20 p.o. b.i.d.. She used the hospital noninvasive ventilator with the AVAPS mode rate of 14, tidal volume 500, EPAP 5, minimal inspiratory pressure 6, maximal inspiratory pressure 25, I-time 1.0, rise of 1 and 32% FiO2. Patient said she slept well and could tolerate this machine. There was no leak. Patient had an overnight oximetry on these settings with recording duration of 6 hours and 56 minutes, average saturation 95%, low saturation 89%, time with saturation less than or equal to 88% was 0 minutes, oxygen desaturation index 2.1. ABG prior to removal was 7.35/53/85. Metoprolol and amiodarone held. 01/05/25: Overall the patient states that her breathing remains compromised but about the same as yesterday. Her cough has improved and she has no phlegm. Her dyspnea on exertion is the same. Currently she is on 3 L nasal cannula saturations 95%. I decreased her to 2 L. Her white blood cell count is 16.1, creatinine is 1.46. She is positive 3 L yesterday and 4.1 L since admission. Her weight is 117.2 kg her BNP is 614 which is improved from 859 on 01/02/2025. patient tells me she wore the hospital noninvasive ventilation with the AVAPS mode last night and slept well. DATA: 12/28/24: CT chest CLINICAL INDICATION: Pneumonia suspected clinically COMPARISON: Reference is made to plain film evaluation of the chest, performed approximately 12 hours earlier and dating back to 12/05/2024. Reference is also made to a CT angiogram of the chest dated 10/20/2022 FINDINGS/OBSERVATIONS: Lung: bibasilar atelectasis, unchanged from chest radiograph. The remainder the lungs are clear. HEART: The heart is borderline enlarged, without pericardial effusion. MEDIASTINUM: Redemonstration of a large left thyroid nodule, increased in size from 2022 examination. No pathologically enlarged or morphologically suspicious lymph nodes are identified within the mediastinum, bilateral axilla, within the soft tissues of the anterior chest wall. SOFT TISSUES OF THE CHEST: Unremarkable. BONES OF THE CHEST: No acute fracture. No lytic or blastic lesions are identified. IMPRESSION: No cross-sectional imaging evidence to suggest the presence of pneumonia. Bibasilar atelectasis, unchanged from a recent radiograph, as detailed above.. 12/08/2024: Home O2 assessment: Rest room air saturation 87%. Rest nasal cannula 1 L saturation 88%. Rest nasal cannula saturation 93%. Exercise nasal cannula 2 L saturation 94%. Patient requires 2 L with rest and with activity. 12/07/24: Patient had an overnight oximetry on 5 L nasal cannula with recording duration of 6 hours and 58 minutes. Average saturation 98%. Low saturation 95%. Time with saturation less than or equal to 88% was 0 minutes. Oxygen desaturation index 0. 12/06/2024: ABG on 5 L nasal cannula pH 7.39/48/97. ? 12/02/2024: Alpha 1 anti trypsin genotype capital MZ. 12/02/2024: Alpha 1 anti trypsin level 135, normal 83-199. 12/02/24: CTA chest PE protocol History: 64 years Female with . R/O PE . Findings: PULMONARY ARTERIES: No pulmonary embolus. VISUALIZED THORACIC INLET: Left thyroid nodule is noted. Ultrasound evaluation advised. MEDIASTINUM: Aorta/coronary arteries: Mild atheromatous disease. Heart/other: The heart is not enlarged. Lymph nodes: No mediastinal or hilar adenopathy. Precarinal lymph node measuring 1.6 cm noted. LUNGS: Atelectasis versus pneumonia seen in the right lung base inferiorly. Minimal atelectasis versus pneumonia in the left lung base is also noted. No pulmonary nodules or masses. No effusions. No pneumothorax. VISUALIZED UPPER abdomen: the visualized upper abdomen is normal. MUSCULOSKELETAL: Soft tissues: The superficial soft tissues are normal. Bones: Age appropriate degenerative changes of the spine. IMPRESSION: 1. No pulmonary embolism. 2. Bilateral basal atelectasis versus pneumonia. Clinical correlation advised. 12/02/2024: Echo Summary 1. The left ventricle is normal in size and systolic function. The left ventricular ejection fraction visually estimated to be 60-60%. 2. The right ventricle is dilated with normal systolic function. 3. There are no significant valvular abnormalities. 4. Technically difficult study. Left Ventricle The left ventricle is normal in size and systolic function. The left ventricular ejection fraction visually estimated to be 60-60%. Diastolic dysfunction is present. Right Ventricle The right ventricle is dilated with normal systolic function. Left Atria The left atrium is normal size. Right Atria The right atrium is normal size. RVSP 27 12/17/2023: CT Scan of the Chest without Contrast: Clinical Indication: Lung cancer screening, nicotine dependence COMPARISON: 04/06/2023 Findings: Stable enlarged left thyroid lobe. There is no evidence of any significant mediastinal, hilar or axillary lymphadenopathy. Atherosclerotic calcifications of the aorta are present. There is no evidence of pleural or pericardial effusion. There is irregular airspace opacity in the posterior right lower lobe, improved from prior exam, likely representing postinflammatory change, as there is a previous more extensive area of consolidation in this location. Mild emphysema. Images through the upper abdomen reveal no abnormalities. Impression: Lung RADS 2: Benign appearance. 12 month follow-up screening CT advised. 09/10/2022: Echo Summary 1. Technically difficult study with limited views. Regional wall motion assessment limited due to poor endomyocardial border definition despite definity contrast enhancement. 2. Left ventricular chamber dimension is normal. 3. Left ventricular systolic function is normal, estimated at 65-70%. 4. There is mildly increased left ventricular wall thickness. 5. Right ventricular chamber dimension is normal. 6. Right ventricular systolic function is moderately reduced. TAPSE 1.3. 7. There is trace tricuspid valve regurgitation. 8. Mild pulmonary hypertension, estimated pulmonary arterial systolic pressure is 37 mmHg. 9. Normal inferior vena cava with <50% collapse upon inspiration consistent with elevated right atrial pressure, 10 mmHg. 08/28/2022: Summary 1. Left ventricular chamber dimension is normal. 2. Left ventricular systolic function is normal, estimated at 60-65%. 3. The left ventricular diastolic function is grade I diastolic dysfunction. 4. Right ventricular chamber dimension is moderately enlarged. 5. Right ventricular systolic function is normal. 6. There is moderate tricuspid valve regurgitation, which may be underestimated due to the eccentricity of the jet. 7. Dilated inferior vena cava with no collapse upon inspiration consistent with elevated right atrial pressure, 15 mmHg. 8. Pulmonary hypertension with an estimated PASP of 59mmHg. Right Ventricle Right ventricular chamber dimension is moderately enlarged. Right ventricular systolic function is normal. Right Atria Right atrial chamber dimension is normal. Atrial Septum Intact interatrial septum visualized by color flow imaging. 08/27/2022: EXAMINATION: CT chest high resolution wo co DATE: 08/27/2022 16:07 INDICATION: respiratory failure TECHNIQUE: Computed tomography (CT) of the chest was performed without intravenous contrast. Automated exposure control and iterative reconstruction technique were employed. The dose-length product was 818.52 mGy-cm. COMPARISON: X-ray chest 08/27/2022 and CTA chest 07/21/2018. FINDINGS: CHEST: Endotracheal tube terminating 2.5 cm above the maria esther. Thoracic aorta: No significant dilation. Moderate arch calcification. Lung parenchyma and airways: Diffuse tree-in-bud opacities most evident in the right lung. Scattered centrilobular nodular opacities measuring up to 11 mm in the right upper lobe. Mild interlobular septal thickening. Bibasilar dependent opacities likely representing atelectasis. Mild emphysematous change. Thoracic inlet, axillae and chest wall: No thyroid or soft tissue mass. No axillary lymphadenopathy. Mediastinum: Mediastinal lymphadenopathy. Dilated central pulmonary arteries as can be seen with pulmonary arterial hypertension. Heart and pericardium: Normal heart size. Aortic valve calcification. No pericardial effusion. Coronary artery calcifications: Mild. Pleura: Trace bilateral pleural fluid. Upper abdomen: No significant finding. Thoracic bones: No acute osseous finding in the chest. IMPRESSION: 1. Tree-in-bud opacities as can be seen with atypical infection (including but not limited to: MAC, TB, fungal), ABPA, airways disease, and less likely aspiration. 2. Nodular opacity in right upper lobe should be followed after the appropriate therapy and cessation of symptoms to ensure resolution. 3. Mediastinal lymphadenopathy. 4. Trace bilateral pleural effusions. 5. Mild interstitial edema. Review of Systems Constitutional: Constitutional: Reports no additional constitutional complaints Eyes: Eyes: Reports no additional eye complaints ENT: Reports system reviewed and no additional complaints, except as documented Cardiovascular: Cardiovascular: Reports no additional cardiovascular complaints Respiratory: Respiratory: Reports no additional respiratory complaints Gastrointestinal: Gastrointestinal: Reports no additional gastrointestinal complaints Musculoskeletal: Musculoskeletal: Reports no additional musculoskeletal complaints Neurologic: Reports system reviewed and no additional complaints, except as documented Psychiatric: Psychiatric: Reports no additional psychiatric complaints Endocrine: Endocrine: Reports no additional endocrine complaints Hematologic/Lymphatic: Hematologic/Lymphatic: Reports no additional hematologic/lymphatic complaints Allergic/Immunologic: Allergic/Immunologic: Reports no additional allergic/immunologic complaints Exam Const: General: cooperative, healthy appearing and comfortable Orientation/consciousness: oriented to person, oriented to place and oriented to time [facility]: Head: normal to inspection Ears: hearing grossly normal bilaterally Eyes: General: appearance normal, both eyes and all related structures Neck: Neck: normal visual inspection Chest: Chest palpation & inspection: normal inspection of the chest Resp: Effort & Inspection: normal respiratory effort and able to speak in complete sentences Auscultation: no crackles, no rales, no rhonchi, no wheezes and diminished lung sounds Other: wheezes Cardio: Jugular venous distension: no JVD GI: Inspection: normal to inspection Skin: General skin exam: normal color Neuro: General: oriented to person, oriented to place and oriented to time Extrem: General: edema Other: Psych: Appearance: grossly normal Objective Data Vital Signs Vital Signs: Vital Signs - 24 hr 01/04/25 11:21 01/04/25 11:34 01/04/25 14:00 Temperature 36.7 C Pulse Rate 62 60 67 Respiratory Rate 18 18 16 Blood Pressure 104/56 L Pulse Oximetry 94 Oxygen Delivery Oxygen Flow Rate 01/04/25 15:17 01/04/25 15:29 01/04/25 20:45 Temperature Pulse Rate 68 67 72 Respiratory Rate 18 18 17 Blood Pressure Pulse Oximetry Oxygen Delivery Oxygen Flow Rate 01/04/25 21:20 01/04/25 21:28 01/04/25 22:20 Temperature 36.6 C Pulse Rate 69 Respiratory Rate 20 22 H Blood Pressure 123/74 Pulse Oximetry 96 96 Oxygen Delivery Nasal Cannula BiPAP Oxygen Flow Rate 3 01/05/25 01:50 01/05/25 02:54 01/05/25 06:00 Temperature 36.7 C Pulse Rate 70 68 Respiratory Rate 18 18 20 Blood Pressure 118/50 L Pulse Oximetry 96 Oxygen Delivery BiPAP Oxygen Flow Rate 01/05/25 07:47 01/05/25 07:47 01/05/25 08:03 Temperature Pulse Rate 82 83 Respiratory Rate 18 20 Blood Pressure Pulse Oximetry 92 Oxygen Delivery Nasal Cannula Oxygen Flow Rate 3 Intake/Output Intake/Output: Intake & Output 01/02/25 01/03/25 01/04/25 01/05/25 23:59 23:59 23:59 23:59 Intake Total 2770 3150 5140 890 Output Total 1300 3200 2000 1300 Balance 1470 -50 3140 -410 Meds/Results Medications: Active Medications Generic Name Dose Route Start Last Admin Trade Name Freq PRN Reason Stop Dose Admin Hydrocodone Bitart/Acetaminophen 1 tab 12/31/24 09:42 12/31/24 10:10 Hydrocodone/Acetaminophen (*Crx) 5-325 Mg Tablet PO 1 tab Q4H PRN Administration Pain Rated 4-6 Amitriptyline HCl 10 mg 12/28/24 21:00 01/04/25 21:28 Amitriptyline Hcl 10 Mg Tablet PO 10 mg HS YODIT Administration Benzonatate 200 mg 01/03/25 09:00 01/05/25 08:42 Benzonatate 100 Mg Capsule PO 200 mg TID YODIT Administration Duloxetine HCl 40 mg 12/28/24 17:00 01/05/25 08:42 Duloxetine Hcl 20 Mg Capsule.Dr PO 40 mg BID YODIT Administration Escitalopram Oxalate 20 mg 12/28/24 15:30 01/05/25 08:41 Escitalopram Oxalate 10 Mg Tablet PO 20 mg DAILY YODIT Administration Ferrous Sulfate 325 mg 12/28/24 17:00 01/05/25 08:42 Ferrous Sulfate [address] BY MOUTH 325 mg BID YODIT Administration Furosemide 40 mg 01/05/25 17:00 Furosemide 40 Mg Tablet PO BID YODIT Guaifenesin 1,200 mg 12/28/24 21:00 01/05/25 08:41 Guaifenesin 12 Hr 600 Mg Tabcr PO 1,200 mg Q12HR YODIT Administration Ceftriaxone Sodium 1 gm in 50 mls @ 100 mls/hr 01/01/25 09:40 01/05/25 09:21 Rocephin 1 Gm/Ns 50 Ml IVPB 100 mls/hr QAM YODIT Administration Ipratropium [place] 0.5 mg 12/29/24 12:00 01/05/25 07:46 Ipratropium Br 0.02% Inh Soln 0.5 Mg/2.5 Ml Vial INHALATION 0.5 mg Q4HRT YODIT Administration Levalbuterol HCl 0.63 mg 01/03/25 12:00 01/05/25 07:45 Levalbuterol Neb 1.25 Mg/3 Ml INHALATION 0.63 mg Q4HRT YODIT Administration Lidocaine 1 patch 12/31/24 11:55 01/05/25 08:43 Lidocaine 5% Patch TRANSDERM Not Given DAILY YODIT Magnesium Hydroxide 30 ml 12/28/24 14:40 Magnesium Hydroxide Susp 30 Ml Udc PO HS PRN Constipation Melatonin 5 mg 12/28/24 14:40 01/04/25 21:30 Melatonin 5 Mg Tablet PO 5 mg HS PRN Administration Insomnia Montelukast Sodium 10 mg 12/29/24 09:00 01/05/25 08:41 Montelukast Sodium 10 Mg Tablet PO 10 mg DAILY YODIT Administration Pantoprazole Sodium 40 mg 12/28/24 21:00 01/05/25 08:41 Pantoprazole 40 Mg Tablet PO 40 mg Q12HR YODIT Administration Prednisone 40 mg 01/03/25 09:15 01/05/25 08:42 Prednisone 20 Mg Tablet PO 40 mg DAILY@0800 YODIT Administration Quetiapine Fumarate 25 mg 12/28/24 21:00 01/04/25 21:29 Quetiapine Fumarate 25 Mg Tablet PO 25 mg HS YODIT Administration Ropinirole HCl 4 mg 12/28/24 21:00 01/04/25 21:29 Ropinirole Hcl 1 Mg Tablet PO 4 mg HS YODIT Administration Topiramate 200 mg 12/28/24 21:00 01/05/25 08:41 Topiramate 100 Mg Tablet PO 200 mg Q12HR YODIT Administration Trazodone HCl 50 mg 12/28/24 21:00 01/04/25 21:29 Trazodone Hcl 50 Mg Tablet PO 50 mg HS YODIT Administration Trazodone HCl 150 mg 01/03/25 13:16 01/04/25 21:29 Trazodone Hcl 50 Mg Tablet PO 150 mg HS PRN Administration Insomnia Radiology Results: ITS Impressions Chest CT 12/28/24 15:42 IMPRESSION: No cross-sectional imaging evidence to suggest the presence of pneumonia. Bibasilar atelectasis, unchanged from a recent radiograph, as detailed above.. Chest X-Ray 01/02/25 09:39 IMPRESSION: 1. Increasing opacities in the right mid and bilateral lower lung zones which could represent worsening atelectasis or pneumonia. Modified Barium Swallow 01/03/25 15:10 IMPRESSION: Patient tolerated regular consistency oral feedings in the upright position. Please correlate with speech pathologist findings and specific feeding recommendations. Labs Labs: Laboratory Results - last 24 hr 01/05/25 04:14 WBC 16.1 H RBC 4.00 L Hgb 10.6 L Hct 35.2 L MCV 88.0 MCH 26.5 MCHC 30.1 L RDW 14.6 H Plt Count 303 MPV 9.1 Immature Gran % (Auto) 9.3 H Neut % (Auto) 64.5 Lymph % (Auto) 19.0 Bailey % (Auto) 5.2 Eos % (Auto) 1.4 Baso % (Auto) 0.6 Lymph # (Auto) 3.06 Bailey # (Auto) 0.8 H Eos # (Auto) 0.2 Baso # (Auto) 0.1 Abs Immat Gran (auto) 1.49 H Absolute Neuts (auto) 10.4 H Absolute Nucleated RBC 0.000 Nucleated RBC % 0.0 ESR 60 H Sodium 137 Potassium 3.5 Chloride 96 L Carbon Dioxide 37 H Anion Gap 4 BUN 25 H Creatinine 1.46 H Estim Creat Clear Calc 44 Estimated GFR 36 L Glucose 121 H Hemoglobin A1c 5.9 H Calcium 8.5 Total Bilirubin 0.3 AST 17 ALT 16 Alkaline Phosphatase 83 C-Reactive Protein 2.3 H NT-Pro-B Natriuret Pep 614 H Total Protein 6.0 L Albumin 3.2 L
--- NOTE | 2025-01-05 11:09 | PCNWS ---
Weekly nutritional screen. Patient is tolerating current diet with adequate intake. No weight loss reported. No nutritional needs at this time.
[2025-01-05] MEDS: FUROSEMIDE 40 MG TABLET PO (17:19)
[2025-01-05] MEDS: traZODone HCL 50 MG TABLET PO (21:30)
[2025-01-05] MEDS: traZODone HCL 50 MG TABLET 150 MG PO (21:30)
[2025-01-05] MEDS: QUEtiapine FUMARATE 25 MG TABLET PO (21:30)
[2025-01-05] MEDS: rOPINIRole HCL 1 MG TABLET 4 MG PO (21:31)
[2025-01-05] MEDS: AMITRIPTYLINE HCL 10 MG TABLET PO (21:31)
[2025-01-05] MEDS: MELATONIN 5 MG TABLET PO (21:31)
[2025-01-06] VITALS (21 sets, daily range): BP systolic 109–125; BP diastolic 44–54; PULSE 65–127; RESP 17–28; TEMP 36.4–36.6; O2SAT 90–96
[2025-01-06] MEDS: LEVALBUTEROL NEB 1.25 MG/3 ML 0.63 MG INHALATION ×4 (03:30→21:03)
[2025-01-06] MEDS: IPRATROPIUM BR 0.02% INH SOLN 0.5 MG/2.5 ML VIAL INHALATION ×6 (03:30→21:03)
[2025-01-06 05:28] LABS: Hematocrit 36.5 % (37.0-47.0); Hemoglobin 10.3 g/dL (12.0-15.0); Mean Corpuscular HGB Conc 28.2 g/dl (32-36); Mean Corpuscular Hemoglobin 25.8 pg (26-34); Mean Corpuscular Volume 91.3 fl (80-100); Mean Platelet Volume 9.3 fl (7.4-10.4); Platelet Count Result 344 k/mm3 (150-375); Red Cell Distribution Width 14.7 % (11.5-14.5); White Blood Count 18.4 K/mm3 (4.5-10.0)
[2025-01-06 05:45] LABS: Anion Gap 7 mmol/L (4-12); Blood Urea Nitrogen 24 mg/dL (7-17); Calcium 8.7 mg/dL (8.4-10.2); Carbon Dioxide 34 mmol/L (22-30); Chloride 97 mmol/L (98-107); Estimated CRCL calculation 46 ml/min; Estimated Glomerular Filt Rate 37; Glucose 121 mg/dL (65-110); Potassium 3.3 mmol/L (3.4-5.0); Sodium 138 mmol/L (137-145)
[2025-01-06 05:48] LABS: Creatine Kinase < 20 U/L (30-135)
[2025-01-06 05:53] LABS: Anisocytosis 1+; Band Neutrophils Percent 1 % (0-6); Eosinophils Absolute Manual 0.18 K/mm3 (0.02-0.50); Eosinophils Percent Manual 1 % (0-4); Giant Platelets Present; Large Platelets Present; Lymphocytes Absolute Manual 3.49 K/mm3 (1.1-4.5); Monocytes Absolute Manual 0.55 K/mm3 (0.1-0.90); Monocytes Percent Manual 3 % (3-9); Neutrophils Absolute Manual 14.16 K/mm3 (1.7-7.2); Neutrophils Percent Manual 76 % (46-73); Platelet Clumps Present; Platelet Estimate Increased (Adequate); Total Cells Counted 100
[2025-01-06 05:54] LABS: Schistocytes None Seen; Smudge Cells PRESENT
[2025-01-06 06:15] LABS: Thyroid Stimulating Hormone 0.965 uIU/mL (0.465-4.680)
[2025-01-06] MEDS: DOXYCYCLINE 100 MG/NS 100 ML 100 MG/100 ML BAG IVPB ×2 (08:26→21:05)
[2025-01-06] MEDS: BENZONATATE 100 MG CAPSULE 200 MG PO ×3 (08:26→16:44)
[2025-01-06] MEDS: DULoxetine HCL 20 MG CAPSULE.DR 40 MG PO ×2 (08:26→16:44)
[2025-01-06] MEDS: ESCITALOPRAM OXALATE 10 MG TABLET 20 MG PO (08:27)
[2025-01-06] MEDS: FERROUS SULFATE 325 MG TABLET DR BY MOUTH ×2 (08:27→16:44)
[2025-01-06] MEDS: FUROSEMIDE 40 MG TABLET PO ×2 (08:28→16:44)
[2025-01-06] MEDS: MONTELUKAST SODIUM 10 MG TABLET PO (08:28)
[2025-01-06] MEDS: guaiFENesin 12 HR 600 MG TABCR 1200 MG PO ×2 (08:28→21:03)
[2025-01-06] MEDS: PANTOPRAZOLE 40 MG TABLET PO ×2 (08:28→21:03)
[2025-01-06] MEDS: TOPIRAMATE 100 MG TABLET 200 MG PO ×2 (08:28→21:03)
--- NOTE | 2025-01-06 09:40 | PM.PNPUL ---
Progress Note: A&P Assessment and Plan (1) Chronic obstructive pulmonary disease: Code(s): J44.9 - Chronic obstructive pulmonary disease, unspecified Status: Chronic Assessment and Plan: Regarding her COPD, 50 pack year tobacco use, quit 08/23/2022, alpha 1 anti trypsin genotype MZ, alpha 1 anti trypsin level 134, normal. The patient has been on oxygen for the last 5 years. I have no PFTs. She is using 5 L at rest with home saturations 92-96%. First CT scan in our system is from 08/27/2022 shows mild apical predominant centrilobular emphysema. Repeat CT angiogram of the chest on 12/02/2024 demonstrates mild apical predominant centrilobular emphysema. Patient is maintained on trelegy inhaler but she does not use a because of the taste. Patient takes Trelegy 100, montelukast 10 and albuterol p.r.n.. Patient tells me she wheezes every day when she takes rescue albuterol at home it relieves her wheezing for 1-2 minutes. 12/01/2024: White blood cell count 14.8, eosinophils 0.6%= 89 per micro L. patient presents with shortness of breath, no change in phlegm production or color, worsening shortness of breath and hypoxemic respiratory failure. Patient treated with bronchodilators, steroids and BiPAP. 12/28/24: The patient tells me that the day after she left the hospital she started getting worse with fatigue and then worsening oxygenation about 5 days ago. On her prescribed 2 L her saturations were in the 80s and then as low as 79%. She denied fever, chills, rigors. She had a dry cough with no phlegm and no hemoptysis. Currently says she is improved and breathing 50% back to her normal but she feels still feels tired and short of breath. The patient told me she had improved and could come off of the mask and she was placed on 3 L nasal cannula with saturations 91% Plan: Will continue treatment for possible COPD exacerbation. Patient has wheezing but has wheezing every day. I will decrease her Solu-Medrol to 20 mg IV q.6 hours. Continue DuoNebs q.6 hours. Patient is on levofloxacin for possible pneumonia and bronchitis. I will obtain a D-dimer and if positive will get a CT angiogram of the chest. If negative will get a CT scan of the chest looking for focal infiltrates consistent with a pneumonia. Goal saturation 90-94%, Adjust oxygen accordingly. Will add guaifenesin 1200 mg p.o. b.i.d. Later in the day patient had a CT scan of the chest with moderate apical predominant centrilobular emphysema and bibasilar atelectasis with no evidence of pneumonia. 12/29/2024: Patient states she had a bad night and his breathing worse today. Her cough is increased with no phlegm and no blood. She is afebrile. White blood cell count 15.2, creatinine 1.61. Currently patient is on 4 L nasal cannula saturations 94%. Patient received a Xopenex treatment and had a heart rate 160 that decreased on its own and required no medical intervention. Plan: I will continue Solu-Medrol 20 mg IV q.6. I will discontinue her levalbuterol due to the tachy arrhythmia increase her ipratropium nebulizers to q.4 hours. No evidence of pneumonia. Will treat for tracheobronchitis with Levaquin 750 mg p.o. q.48h, day 2. Continue guaifenesin 12 50 b.i.d., montelukast 10. Patient is on Lasix 20 p.o. b.i.d.. 12/30/24: Patient tells me she is having a better day today. She says that her breathing is 75% back to her normal. Her cough is improved but increased from baseline. She has no phlegm and no hemoptysis. She is afebrile. Her weight today is 112.7 kg. Patient wore the hospital noninvasive ventilator with the AVAPS mode and said that she slept well. Plan: I will change the patient to prednisone 40 mg p.o. q.day, Day 3 of steroids. I will continue ipratropium nebulizers q.4 hours. Continue montelukast 10 q day and guaifenesin 1200 p.o. b.i.d.. continue Levaquin for tracheobronchitis, day 3. Encouraged her out of bed to chair, ambulation as tolerated, physical therapy has been ordered on 12/29/2024. Respiratory pathogen panel, urine Legionella, urine pneumococcal antigen pending. pulmonary inpatient services will resume on 01/02/2025, call with questions. 01/03/2024 patient states that she is breathing 75% back to her normal. Her dyspnea on exertion is back at her normal. His cough is persistent but improved. She is afebrile. White blood cell count 14.1, creatinine 1.46. Her weight is 114. Her currently the patient is on 3 L with saturation 95%. Patient wore the hospital BiPAP with a rate of 20 pressures 20/5 and 32% FiO2 and said that she could not sleep last night because the pressure was too high and the machine had a loud leak and kept her up. BNP 859 which is increased from 563. Continue Lasix 20 p.o. b.i.d.. Plan: Patient continues to improve. Today is day 6 of prednisone and will discontinue after today's dose. Continue ipratropium q.4 hours. Patient is on Levaquin day 6. She is on ceftriaxone day 2 for UTI. Goal saturation 90-94%, adjust oxygen accordingly. 01/04/2024: Patient tells me she is breathing worse today. She says her cough is more persistent and heavier, remains dry with no phlegm. Her breathing is worse. She is able to walk with physical therapy yesterday and did well. White blood cell count 15.7, creatinine 1.42. Respiratory pathogen panel is negative. Plan. Patient worse today and will restart prednisone 40. Her respiratory pathogen panel is negative. I will obtain a modified barium swallow. Will begin Tessalon Perles 200 t.i.d. standing. Will start levalbuterol 0.63 mcg q.4 hours to see if this will provide some relief. Patient remains on Lasix 20 p.o. b.i.d. she is status post 7 days of levofloxacin and now on ceftriaxone for UTI, day 2. Continue guaifenesin 1200 q.12 hours, Vest therapy, montelukast. Patient is on metoprolol 100 q.12 hours as well as amiodarone 200, Later in the day patient had a modified barium swallow with no evidence of aspiration. 01/05/2024: Patient tells me she is breathing better today. Her cough persists but is better. Her shortness of breath and wheezing persists. She is afebrile. her weight today is 117.4 kg, yesterday she was 1.4 L positive on Lasix 20 p.o. b.i.d.. Plan: Patient had just received vest therapy as well as a nebulized treatment and she still had diffuse wheezing. Overall she is no better after 8 days of steroids, course of levofloxacin and now on ceftriaxone, bronchodilators, Lasix, montelukast and guaifenesin. Last admission on 12/02/2024 patient had AFib with RVR and her metoprolol was increased from 25 XL a day to 100 p.o. b.i.d. and she was started on amiodarone. She tells me she has had persistent symptoms since then. I have placed a hold on the metoprolol and amiodarone. Discussed with Lesley Rock and she will consult Cardiology regarding AFib management. 01/05/25: Overall the patient states that her breathing remains compromised but about the same as yesterday. Her cough has improved and she has no phlegm. Her dyspnea on exertion is the same. Currently she is on 3 L nasal cannula saturations 95%. I decreased her to 2 L. Her white blood cell count is 16.1, creatinine is 1.46. She is positive 3 L yesterday and 4.1 L since admission. Her weight is 117.2 kg her BNP is 614 which is improved from 859 on 01/02/2025. Plan: Patient has not improved. Continue prednisone 40 mg p.o. q.day, day 9, nebulized ipratropium and levalbuterol q.4 hours, montelukast 10, guaifenesin 1200 p.o. b.i.d.. Completed levofloxacin for 7 days and now on ceftriaxone for UTI day 5. I will order CT scan of the chest today. Will try Lasix 40 p.o. b.i.d. to see if she improves with diuresis. Metoprolol and amiodarone have been held since 01/04. Cardiology consult obtained yesterday and appreciate their very detailed and thoughtful consult. Regarding the amiodarone, I agree with her consult note regarding chronic amiodaarone toxicity but I am more worried about a subacute reaction to amiodarone rather than chronic amiodarone lung toxicity. Since patient still has respiratory distress I recommend discontinuation of amiodarone at this time. Later in the day patient had a CT scan of the chest with mild apical predominant centrilobular emphysema, small area of atelectasis versus infiltrate posterior segment right upper lobe. There is no pleural disease, interstitial lung disease, masses, or nodules. 01/06/25: patient tells me she is breathing a little bit better today. She is able to take deeper breaths. Her dry cough persists. She has no phlegm or hemoptysis. She is afebrile. White blood cell count 18.4, creatinine 1.42. Patient is on 2 L nasal cannula saturations 94%. I turned her to room air and after 4 minutes her saturations decreased to 88% and I turned her back to 1 L and her saturations were 92%. Yesterday she diuresed 2.4 L and cumulative she is positive 1.3 L since admission. Her weight today is 119 kg. Plan: overall patient is a little bit better today. She has received 9 days of prednisone and I will discontinue today. I will add nebulized budesonide 500 b.i.d. and continued ipratropium and levalbuterol nebulizers q.4 hours, montelukast 10, guaifenesin 1200. Patient Has completed 7 days of levofloxacin, last dose 01/03/2025, is on ceftriaxone for UTI day 6 an doxycycline started on 01/06/2025. She has no clinical evidence of pneumonia. will check procalcitonin. Continue Lasix 40 p.o. b.i.d.. Discussed with Dr. Crawford. Will follow with you. (2) Chronic hypercapnic respiratory failure: Code(s): J96.12 - Chronic respiratory failure with hypercapnia Status: Acute Assessment and Plan: Last admission 12/02/2024 to 12/08/2024) patient presented with hypercarbic respiratory failure with ABG 7.33/65/103 and serum bicarb > 40. 12/28/2024: She again presents with shortness of breath, hypoxemic and hypercarbic respiratory failure. Current venous blood gas listed as room air 7.33/72/ 43. Patient has chronic hypercarbic respiratory failure from her COPD with a room air blood gas of 7.33/72/43 (venous) and a serum bicarbonate greater than 37. She would benefit from a noninvasive ventilation as this is her 2nd hospitalization in the last month for hypercarbic respiratory failure. noninvasive ventilation would prevent further hospitalizations and deterioration. Patient was placed on BiPAP With no rate and pressures 15/5 with 28% with blood gas of 7.37/64/69. Patient was then placed on BiPAP with no rate and pressure 20/5 and 32% with a blood gas of 7.38/64/74. [employer] on these settings demonstrated adequate oxygenation. Patient was then placed on BiPAP rate of 20 pressures 20/5 and she said she could not tolerate these settings as it was too much pressure, high leak and she could not sleep at night. I will initiate the process for a home noninvasive ventilator with the AVAPS mode through her [employer] company, oxygen DME is [employer] who we will use. The patient told me she had improved and could come off of the mask and she was placed on 3 L nasal cannula with saturations 91% 12/28/24: Currently the patient is on BiPAP rate of 18, pressures 14/8 with 40% FiO2. Patient told me these settings were uncomfortable for her and I changed them to noninvasive ventilation with the AVAPS mode rate of 14, tidal volume 500, EPAP 5, minimal inspiratory pressure 6, maximal inspiratory pressure 25, inspiratory time 1.0, rise of 1 which is the fastest and 40% FiO2. She said this was more comfortable. The patient told me she had improved and could come off of the mask and she was placed on 3 L nasal cannula with saturations 91%. Plan: noninvasive ventilation with the AVAPS mode p.r.n. during the day. I recommend she wear this tonight. After she has improved will repeat ABG during the day. 12/29/24: Patient attempted to wear the fullface mask with the AVAPS settings as above and she did wear the mask but she could not sleep. plan: Patient says she will try to wear the AVAPS again tonight. I told her if she can not sleep with the mask on that she needs to take the mask off so that she can try to sleep. 12/30/24: Patient wore the hospital noninvasive ventilator with the AVAPS mode and said that she slept well. Plan: Patient tells me she still requires breathing support at night. If the patient qualifies for ventilatory support with a home machine it will need to be BiPAP with no rate. [place] will place the patient on BiPAP no rate, pressures 15/5 and 28% FiO2 with overnight oximetry and ABG in the morning. 12/31/24: Patient wore a hospital BiPAP with no rate pressures 15/5 with 28% with blood gas the next morning 7.37/64/69 and overnight oximetry with hypoxia. 01/02/2024: Patient wore the hospital BiPAP with no rate pressures 20/5 with 32% a blood gas of 7.38/64/74 and overnight oximetry with adequate saturations. 01/03/2024 Patient wore the hospital BiPAP with a rate of 20 pressures 20/5 and 32% FiO2 and said that she could not sleep last night because the pressure was too high and the machine had a loud leak and kept her up. Plan: I will place the patient on noninvasive ventilation with the AVAPS mode rate of 14, tidal volume 500, EPAP 5, minimum inspiratory pressure 6, maximum inspiratory pressure 25, inspiratory time 1.0, rise of 1 and 32% FiO2. I will obtain an overnight oximetry and ABG on these settings. I will initiate home noninvasive ventilation through [facility] and her insurance [facility]. Later in the day filled out a home noninvasive ventilator form for [facility] through [facility] insurance for IVAPS with AE: Rate 14, tidal volume 500, minimum EPAP 5, maximum EPAP 15, minimum pressure support 6, maximum pressure support 25, 3 L bleed in. 01/03/25: Patient wore the hospital machine BiPAP rate of 20, pressures 20/5, inspiratory time 1, rise of 3 and 32% FiO2. She said she had a difficult time sleeping in the mask did not fit with a large leak. Overnight oximetry on these settings with recording duration of 7 hours and 40 minutes, average saturation 94%. Low saturation 63%. Time with saturation less than or equal to 88% 6 minutes, oxygen desaturation index 5.1. ABG 7.36//78. Plan: Waiting to hear back from his [facility] regarding a home machine. uche AVAPS mode rate of 14, tidal volume 500, EPAP 5, minimum inspiratory pressure 6, maximum inspiratory pressure 25, inspiratory time 1.0, rise of 1 and 32% FiO2. I will obtain an overnight oximetry and ABG on these settings. 01/04/25: Patient could not tolerate the BiPAP but does tolerate noninvasive ventilation with the AVAPS mode. She used the hospital noninvasive ventilator with the AVAPS mode rate of 14, tidal volume 500, EPAP 5, minimal inspiratory pressure 6, maximal inspiratory pressure 25, I-time 1.0, rise of 1 and 32% FiO2. Patient said she slept well and could tolerate this machine. There was no leak. Patient had an overnight oximetry on these settings with recording duration of 6 hours and 56 minutes, average saturation 95%, low saturation 89%, time with saturation less than or equal to 88% was 0 minutes, oxygen desaturation index 2.1. ABG prior to removal was 7.35/53/85. Plan: Current noninvasive ventilation with the AVAPS mode provide adequate ventilation and oxygenation. Waiting to hear from [facility] regarding home noninvasive ventilation approval. 01/05/25: patient tells me she wore the hospital noninvasive ventilation with the AVAPS mode last night and slept well. Plan: Patient has been denied a noninvasive ventilator by [facility], her insurance company. This has been of relate to us verbally and we are waiting for the formal denial. Once this is in place will obtain a phone number for a peer to peer review. While she is in the hospital continue hospital noninvasive ventilator with 32% FiO2. 01/06/2025: Patient wore the hospital noninvasive ventilator with the AVAPS mode fullface mask and said she slept well and tolerated this. Plan: Patient's request for noninvasive ventilation was denied by [facility]. They requested a peer to peer. I spent the last 50 minutes trying to complete appear to peer process through the see phone number with the Case record for the peer to peer review that I was given and was told this is the incorrect information. Peer to peer review was unsuccessful. Will contact [facility] again to try to get correct information. Subjective Date/time seen: 01/06/25 09:40 Interval history: 12/28/2024: This is a new pulmonary consult for COPD exacerbation. 64-year-old with a history of AFib off anticoagulation for 2 years secondary to abdominal rectal sheath hematoma, diastolic dysfunction, GERD, HTN, restless legs syndrome, anxiety and COPD with chronic hypoxemic respiratory failure on 5 L at Night and 2 L with rest and activity per home O2 assessment on 12/08/2024. I previously saw the patient as an inpatient on 12/02/2024 when she was admitted for COPD exacerbation. Regarding her COPD, 50 pack year tobacco use, quit 08/23/2022, alpha 1 anti trypsin genotype MZ, alpha 1 anti trypsin level 134, normal. The patient has been on oxygen for the last 5 years. I have no PFTs. She is using 5 L at rest with home saturations 92-96%. First CT scan in our system is from 08/27/2022 shows mild apical predominant centrilobular emphysema. Repeat CT angiogram of the chest on 12/02/2024 demonstrates mild apical predominant centrilobular emphysema. Patient is maintained on trelegy inhaler but she does not use a because of the taste. Patient takes Trelegy 100, montelukast 10 and albuterol p.r.n.. Patient tells me she wheezes every day when she takes rescue albuterol at home it relieves her wheezing for 1-2 minutes. 12/01/2024: White blood cell count 14.8, eosinophils 0.6%= 89 per micro L. 12/02/2024 through 12/08/2024:? Presented to the emergency room with COPD exacerbation, hypercarbic and hypoxemic respiratory failure, AFib with RVR, and fluid overload.? Treated with BiPAP, steroids, bronchodilators, antibiotics, and diuretics.? CTA of the chest with no PE, mild apical predominant centrilobular emphysema, ?upper and lower extremity Dopplers negative for DVT.? Echocardiogram with LVEF 60-65%, RV was dilated with normal systolic function.? Left atrium normal, right atrium normal, RVSP 27. ?After she improved clinically on 12/06/2024: ABG on 5 L nasal cannula pH 7.39/48/97. ?Patient improved and was discharged on 12/08/24 on trelegy 100, rescue albuterol, montelukast 10, guaifenesin 600 b.i.d. p.r.n. congestion, no Lasix, amiodarone 200 b.i.d., metoprolol 100 q.12, she had completed 5 days of steroids in house and I did not recommend a discharge taper, however, the hospitalist discharge her on a 15 day prednisone taper. Required 2 L oxygen at rest and with activity per home O2 assessment and per overnight oximetry required 5 L NC when she naps or sleeps. ?12/08/24: creatinine 1.68. Her weight is 120.8 kg.? 12/28/2024: Presented to the emergency room with shortness of breath. blood pressure 136/117, heart rate 76, nasal cannula saturation 93%. Patient had wheezing throughout all lung paul. White blood cell count 13.4 with eosinophils 1.8%=241/ul. creatinine 1.34, serum bicarbonate 37, BNP 563. Venous blood gas listed as room air 7.33/72/ 43. patient placed on BiPAP, treated with bronchodilators, received IV steroids per EMS, lasix 40 IV. 12/28/24: Currently the patient is on BiPAP rate of 18, pressures 14/8 with 40% FiO2. Patient told me these settings were uncomfortable for her and I changed them to noninvasive ventilation with the AVAPS mode rate of 14, tidal volume 500, EPAP 5, minimal inspiratory pressure 6, maximal inspiratory pressure 25, inspiratory time 1.0, rise of 1 which is the fastest and 40% FiO2. She said this was more comfortable. The patient told me she had improved and could come off of the mask and she was placed on 3 L nasal cannula with saturations 91% The patient tells me that the day after she left the hospital she started getting worse with fatigue and then worsening oxygenation about 5 days ago. On her prescribed 2 L her saturations were in the 80s and then as low as 79%. She denied fever, chills, rigors. She had a dry cough with no phlegm and no hemoptysis. Currently says she is improved and breathing 50% back to her normal but she feels still feels tired and short of breath. Later in the day patient had a CT scan of the chest with moderate apical predominant centrilobular emphysema and bibasilar atelectasis with no evidence of pneumonia. 12/29/2024: Patient states she had a bad night and his breathing worse today. Her cough is increased with no phlegm and no blood. She is afebrile. White blood cell count 15.2, creatinine 1.61. Currently patient is on 4 L nasal cannula saturations 94%. Patient tempted to wear the fullface mask with the AVAPS settings as above and she did wear the mask but she could not sleep. Patient received a Xopenex treatment and had a heart rate 160 that decreased on its own and required no medical intervention. 12/30/24: Patient tells me she is having a better day today. She says that her breathing is 75% back to her normal. Her cough is improved but increased from baseline. She has no phlegm and no hemoptysis. She is afebrile. Her weight today is 112.7 kg. Patient wore the hospital noninvasive ventilator with the AVAPS mode and said that she slept well. 12/31/24: Patient wore a hospital BiPAP with no rate pressures 15/5 with 28% with blood gas the next morning 7.37/64/69 and overnight oximetry with hypoxia. 01/02/2024: Patient wore the hospital BiPAP with no rate pressures 20/5 with 32% a blood gas of 7.38/64/74 and overnight oximetry with adequate saturations. 01/03/2024 patient states that she is breathing 75% back to her normal. Her dyspnea on exertion is back at her normal. His cough is persistent but improved. She is afebrile. White blood cell count 14.1, creatinine 1.46. Her weight is 114. Patient wore the hospital BiPAP with a rate of 20 pressures 20/5 and 32% FiO2 and said that she could not sleep last night because the pressure was too high and the machine had a loud leak and kept her up. Later in the day filled out a home noninvasive ventilator form for [facility] through [facility] insurance for IVAPS with AE: Rate 14, tidal volume 500, minimum EPAP 5, maximum EPAP 15, minimum pressure support 6, maximum pressure support 25, 3 L bleed in. 01/04/2024: Patient tells me she is breathing worse today. She says her cough is more persistent and heavier, remains dry with no phlegm. Her breathing is worse. She is able to walk with physical therapy yesterday and did well. White blood cell count 15.7, creatinine 1.42. Respiratory pathogen panel is negative. Patient wore the hospital machine BiPAP rate of 20, pressures 20/5, inspiratory time 1, rise of 3 and 32% FiO2. She said she had a difficult time sleeping in the mask did not fit with a large leak. She cannot sleep with this machine. Overnight oximetry on these settings with recording duration of 7 hours and 40 minutes, average saturation 94%. Low saturation 63%. Time with saturation less than or equal to 88% 6 minutes, oxygen desaturation index 5.1. ABG 7.36/55/78. Levalbuterol and Tessalon Perles added. 01/05/2024: Patient tells me she is breathing better today. Her cough persists but is better. Her shortness of breath and wheezing persists. She is afebrile. her weight today is 117.4 kg, yesterday she was 1.4 L positive on Lasix 20 p.o. b.i.d.. She used the hospital noninvasive ventilator with the AVAPS mode rate of 14, tidal volume 500, EPAP 5, minimal inspiratory pressure 6, maximal inspiratory pressure 25, I-time 1.0, rise of 1 and 32% FiO2. Patient said she slept well and could tolerate this machine. There was no leak. Patient had an overnight oximetry on these settings with recording duration of 6 hours and 56 minutes, average saturation 95%, low saturation 89%, time with saturation less than or equal to 88% was 0 minutes, oxygen desaturation index 2.1. ABG prior to removal was 7.35/53/85. Metoprolol and amiodarone held. 01/05/25: Overall the patient states that her breathing remains compromised but about the same as yesterday. Her cough has improved and she has no phlegm. Her dyspnea on exertion is the same. Currently she is on 3 L nasal cannula saturations 95%. I decreased her to 2 L. Her white blood cell count is 16.1, creatinine is 1.46. She is positive 3 L yesterday and 4.1 L since admission. Her weight is 117.2 kg her BNP is 614 which is improved from 859 on 01/02/2025. patient tells me she wore the hospital noninvasive ventilation with the AVAPS mode last night and slept well. Lasix 20 p.o. b.i.d. increased to Lasix 40 p.o. b.i.d. Later in the day patient had a CT scan of the chest with mild apical predominant centrilobular emphysema, small area of atelectasis versus infiltrate posterior segment right upper lobe. There is no pleural disease, interstitial lung disease, masses, or nodules. 01/06/25: patient tells me she is breathing a little bit better today. She is able to take deeper breaths. Her dry cough persists. She has no phlegm or hemoptysis. She is afebrile. White blood cell count 18.4, creatinine 1.42. Patient is on 2 L nasal cannula saturations 94%. I turned her to room air and after 4 minutes her saturations decreased to 88% and I turned her back to 1 L and her saturations were 92%. Yesterday she diuresed 2.4 L and cumulative she is positive 1.3 L since admission. Her weight today is 119 kg. DATA: 01/05/25: EXAMINATION: CT diagnostic chest wo con INDICATION: RIGGINS, wheezing COMPARISON: 12/28/2024 FINDINGS: Mild emphysema. Small region with increased reticulonodular pattern at the posterior segment of the right upper lobe consistent with progression of pneumonia. Linear and bandlike atelectasis in the bilateral lower lobes and in the lingula. No pulmonary edema or pleural effusion. Heart size is normal. Atherosclerotic coronary artery calcium location and aortic valve calcification. Thoracic aorta normal in caliber. No pathologically enlarged thoracic lymphadenopathy. Again seen is a 3.5 cm mass extending posteriorly from the left thyroid lobe. Cholecystectomy clips at the gallbladder fossa. Moderate thoracic spondylosis. IMPRESSION: 1. Mild emphysema with right upper lobe pneumonia. 2. 3.5 cm left thyroid mass. 01/03/25: MODIFIED ESOPHAGRAM HISTORY: Coughing when swallowing TECHNIQUE: Modified barium esophagram was performed on 01/03/2025. I administered fluoroscopy and performed the exam with speech pathologist. Patient was seated for lateral fluoroscopic imaging for ingestion of thin liquids, pudding, solids and quantified amounts, followed by thin liquids in uncontrolled amounts. This was recorded on tape. A single fluoroscopic spot image was also recorded. The DAP for this procedure was 2.267 Gycm2. The amount of fluoroscopy time used during this procedure was 2.0 minutes. FINDINGS: Oral stage: Adequate function. Pharyngeal stage: Adequate function. Cervical/esophageal stage: Adequate function. IMPRESSION: Patient tolerated regular consistency oral feedings in the upright position. Please correlate with speech pathologist findings and specific feeding recommendations. 12/28/24: CT chest CLINICAL INDICATION: Pneumonia suspected clinically COMPARISON: Reference is made to plain film evaluation of the chest, performed approximately 12 hours earlier and dating back to 12/05/2024. Reference is also made to a CT angiogram of the chest dated 10/20/2022 FINDINGS/OBSERVATIONS: Lung: bibasilar atelectasis, unchanged from chest radiograph. The remainder the lungs are clear. HEART: The heart is borderline enlarged, without pericardial effusion. MEDIASTINUM: Redemonstration of a large left thyroid nodule, increased in size from 2022 examination. No pathologically enlarged or morphologically suspicious lymph nodes are identified within the mediastinum, bilateral axilla, within the soft tissues of the anterior chest wall. SOFT TISSUES OF THE CHEST: Unremarkable. BONES OF THE CHEST: No acute fracture. No lytic or blastic lesions are identified. IMPRESSION: No cross-sectional imaging evidence to suggest the presence of pneumonia. Bibasilar atelectasis, unchanged from a recent radiograph, as detailed above.. 12/08/2024: Home O2 assessment: Rest room air saturation 87%. Rest nasal cannula 1 L saturation 88%. Rest nasal cannula saturation 93%. Exercise nasal cannula 2 L saturation 94%. Patient requires 2 L with rest and with activity. 12/07/24: Patient had an overnight oximetry on 5 L nasal cannula with recording duration of 6 hours and 58 minutes. Average saturation 98%. Low saturation 95%. Time with saturation less than or equal to 88% was 0 minutes. Oxygen desaturation index 0. 12/06/2024: ABG on 5 L nasal cannula pH 7.39/48/97. ? 12/02/2024: Alpha 1 anti trypsin genotype ruthie LEWIS. 12/02/2024: Alpha 1 anti trypsin level 135, normal 83-199. 12/02/24: CTA chest PE protocol History: 64 years Female with . R/O PE . Findings: PULMONARY ARTERIES: No pulmonary embolus. VISUALIZED THORACIC INLET: Left thyroid nodule is noted. Ultrasound evaluation advised. MEDIASTINUM: Aorta/coronary arteries: Mild atheromatous disease. Heart/other: The heart is not enlarged. Lymph nodes: No mediastinal or hilar adenopathy. Precarinal lymph node measuring 1.6 cm noted. LUNGS: Atelectasis versus pneumonia seen in the right lung base inferiorly. Minimal atelectasis versus pneumonia in the left lung base is also noted. No pulmonary nodules or masses. No effusions. No pneumothorax. VISUALIZED UPPER abdomen: the visualized upper abdomen is normal. MUSCULOSKELETAL: Soft tissues: The superficial soft tissues are normal. Bones: Age appropriate degenerative changes of the spine. IMPRESSION: 1. No pulmonary embolism. 2. Bilateral basal atelectasis versus pneumonia. Clinical correlation advised. 12/02/2024: Echo Summary 1. The left ventricle is normal in size and systolic function. The left ventricular ejection fraction visually estimated to be 60-60%. 2. The right ventricle is dilated with normal systolic function. 3. There are no significant valvular abnormalities. 4. Technically difficult study. Left Ventricle The left ventricle is normal in size and systolic function. The left ventricular ejection fraction visually estimated to be 60-60%. Diastolic dysfunction is present. Right Ventricle The right ventricle is dilated with normal systolic function. Left Atria The left atrium is normal size. Right Atria The right atrium is normal size. RVSP 27 12/17/2023: CT Scan of the Chest without Contrast: Clinical Indication: Lung cancer screening, nicotine dependence COMPARISON: 04/06/2023 Findings: Stable enlarged left thyroid lobe. There is no evidence of any significant mediastinal, hilar or axillary lymphadenopathy. Atherosclerotic calcifications of the aorta are present. There is no evidence of pleural or pericardial effusion. There is irregular airspace opacity in the posterior right lower lobe, improved from prior exam, likely representing postinflammatory change, as there is a previous more extensive area of consolidation in this location. Mild emphysema. Images through the upper abdomen reveal no abnormalities. Impression: Lung RADS 2: Benign appearance. 12 month follow-up screening CT advised. 09/10/2022: Echo Summary 1. Technically difficult study with limited views. Regional wall motion assessment limited due to poor endomyocardial border definition despite definity contrast enhancement. 2. Left ventricular chamber dimension is normal. 3. Left ventricular systolic function is normal, estimated at 65-70%. 4. There is mildly increased left ventricular wall thickness. 5. Right ventricular chamber dimension is normal. 6. Right ventricular systolic function is moderately reduced. TAPSE 1.3. 7. There is trace tricuspid valve regurgitation. 8. Mild pulmonary hypertension, estimated pulmonary arterial systolic pressure is 37 mmHg. 9. Normal inferior vena cava with <50% collapse upon inspiration consistent with elevated right atrial pressure, 10 mmHg. 08/28/2022: Summary 1. Left ventricular chamber dimension is normal. 2. Left ventricular systolic function is normal, estimated at 60-65%. 3. The left ventricular diastolic function is grade I diastolic dysfunction. 4. Right ventricular chamber dimension is moderately enlarged. 5. Right ventricular systolic function is normal. 6. There is moderate tricuspid valve regurgitation, which may be underestimated due to the eccentricity of the jet. 7. Dilated inferior vena cava with no collapse upon inspiration consistent with elevated right atrial pressure, 15 mmHg. 8. Pulmonary hypertension with an estimated PASP of 59mmHg. Right Ventricle Right ventricular chamber dimension is moderately enlarged. Right ventricular systolic function is normal. Right Atria Right atrial chamber dimension is normal. Atrial Septum Intact interatrial septum visualized by color flow imaging. 08/27/2022: EXAMINATION: CT chest high resolution wo co DATE: 08/27/2022 16:07 INDICATION: respiratory failure TECHNIQUE: Computed tomography (CT) of the chest was performed without intravenous contrast. Automated exposure control and iterative reconstruction technique were employed. The dose-length product was 818.52 mGy-cm. COMPARISON: X-ray chest 08/27/2022 and CTA chest 07/21/2018. FINDINGS: CHEST: Endotracheal tube terminating 2.5 cm above the maria esther. Thoracic aorta: No significant dilation. Moderate arch calcification. Lung parenchyma and airways: Diffuse tree-in-bud opacities most evident in the right lung. Scattered centrilobular nodular opacities measuring up to 11 mm in the right upper lobe. Mild interlobular septal thickening. Bibasilar dependent opacities likely representing atelectasis. Mild emphysematous change. Thoracic inlet, axillae and chest wall: No thyroid or soft tissue mass. No axillary lymphadenopathy. Mediastinum: Mediastinal lymphadenopathy. Dilated central pulmonary arteries as can be seen with pulmonary arterial hypertension. Heart and pericardium: Normal heart size. Aortic valve calcification. No pericardial effusion. Coronary artery calcifications: Mild. Pleura: Trace bilateral pleural fluid. Upper abdomen: No significant finding. Thoracic bones: No acute osseous finding in the chest. IMPRESSION: 1. Tree-in-bud opacities as can be seen with atypical infection (including but not limited to: MAC, TB, fungal), ABPA, airways disease, and less likely aspiration. 2. Nodular opacity in right upper lobe should be followed after the appropriate therapy and cessation of symptoms to ensure resolution. 3. Mediastinal lymphadenopathy. 4. Trace bilateral pleural effusions. 5. Mild interstitial edema. Review of Systems Constitutional: Constitutional: Reports no additional constitutional complaints Eyes: Eyes: Reports no additional eye complaints ENT: Reports system reviewed and no additional complaints, except as documented Cardiovascular: Cardiovascular: Reports no additional cardiovascular complaints Respiratory: Respiratory: Reports no additional respiratory complaints Gastrointestinal: Gastrointestinal: Reports no additional gastrointestinal complaints Musculoskeletal: Musculoskeletal: Reports no additional musculoskeletal complaints Neurologic: Reports system reviewed and no additional complaints, except as documented Psychiatric: Psychiatric: Reports no additional psychiatric complaints Endocrine: Endocrine: Reports no additional endocrine complaints Hematologic/Lymphatic: Hematologic/Lymphatic: Reports no additional hematologic/lymphatic complaints Allergic/Immunologic: Allergic/Immunologic: Reports no additional allergic/immunologic complaints Exam Const: General: cooperative, healthy appearing and comfortable Orientation/consciousness: oriented to person, oriented to place and oriented to time HENMT: Head: normal to inspection Ears: hearing grossly normal bilaterally Eyes: General: appearance normal, both eyes and all related structures Neck: Neck: normal visual inspection Chest: Chest palpation & inspection: normal inspection of the chest Resp: Effort & Inspection: normal respiratory effort and able to speak in complete sentences Auscultation: no crackles, no rales, no rhonchi, no wheezes and diminished lung sounds Other: wheezes Cardio: Jugular venous distension: no JVD GI: Inspection: normal to inspection Skin: General skin exam: normal color Neuro: General: oriented to person, oriented to place and oriented to time Extrem: General: edema Other: Psych: Appearance: grossly normal Objective Data Vital Signs Vital Signs: Vital Signs - 24 hr 01/05/25 11:08 01/05/25 11:22 01/05/25 14:00 Temperature 36.3 C L Pulse Rate 84 63 79 Respiratory Rate 20 20 22 H Blood Pressure 111/59 L Pulse Oximetry 95 Oxygen Delivery Oxygen Flow Rate Fraction of Inspired Oxygen 01/05/25 15:54 01/05/25 15:54 01/05/25 16:06 Temperature Pulse Rate 73 76 Respiratory Rate 20 20 Blood Pressure Pulse Oximetry 93 Oxygen Delivery Nasal Cannula Oxygen Flow Rate 2 Fraction of Inspired Oxygen 01/05/25 19:32 01/05/25 20:00 01/05/25 20:03 Temperature 36.5 C Pulse Rate 77 86 94 Respiratory Rate 20 20 Blood Pressure 125/40 L Pulse Oximetry 92 94 Oxygen Delivery Nasal Cannula Oxygen Flow Rate 2 Fraction of Inspired Oxygen 01/05/25 20:03 01/05/25 20:20 01/05/25 21:25 Temperature Pulse Rate 81 87 Respiratory Rate 20 20 Blood Pressure Pulse Oximetry 92 Oxygen Delivery Nasal Cannula Oxygen Flow Rate 2 Fraction of Inspired Oxygen 01/05/25 21:35 01/05/25 23:15 01/05/25 23:29 Temperature Pulse Rate 84 76 73 Respiratory Rate 23 H 17 17 Blood Pressure Pulse Oximetry 95 Oxygen Delivery BiPAP Oxygen Flow Rate Fraction of Inspired Oxygen 01/05/25 23:35 01/06/25 00:00 01/06/25 03:30 Temperature Pulse Rate 69 81 72 Respiratory Rate 19 17 Blood Pressure Pulse Oximetry 95 94 Oxygen Delivery BiPAP BiPAP Oxygen Flow Rate Fraction of Inspired Oxygen 01/06/25 04:00 01/06/25 04:21 01/06/25 07:51 Temperature 36.6 C Pulse Rate 82 80 65 Respiratory Rate 20 17 Blood Pressure 125/54 L Pulse Oximetry 95 Oxygen Delivery Oxygen Flow Rate Fraction of Inspired Oxygen 01/06/25 07:53 01/06/25 08:00 01/06/25 08:19 Temperature Pulse Rate 65 89 65 Respiratory Rate 17 Blood Pressure Pulse Oximetry 96 Oxygen Delivery BiPAP Oxygen Flow Rate Fraction of Inspired Oxygen 32 Intake/Output Intake/Output: Intake & Output 01/03/25 01/04/25 01/05/25 01/06/25 23:59 23:59 23:59 23:59 Intake Total 3150 5140 3920 480 Output Total 3200 2000 6400 1250 Balance -50 3140 -2480 -770 Meds/Results Medications: Active Medications Generic Name Dose Route Start Last Admin Trade Name Freq PRN Reason Stop Dose Admin Hydrocodone Bitart/Acetaminophen 1 tab 12/31/24 09:42 12/31/24 10:10 Hydrocodone/Acetaminophen (*Crx) 5-325 Mg Tablet PO 1 tab Q4H PRN Administration Pain Rated 4-6 Amitriptyline HCl 10 mg 12/28/24 21:00 01/05/25 21:31 Amitriptyline Hcl 10 Mg Tablet PO 10 mg HS YODIT Administration Benzonatate 200 mg 01/03/25 09:00 01/06/25 08:26 Benzonatate 100 Mg Capsule PO 200 mg TID YODIT Administration Budesonide 0.5 mg 01/06/25 08:00 01/06/25 08:55 Budesonide Respule Neb 0.5 Mg/2 Ml Amp INHALATION Not Given Q12HRT YODIT Duloxetine HCl 40 mg 12/28/24 17:00 01/06/25 08:26 Duloxetine Hcl 20 Mg Capsule.Dr PO 40 mg BID YODIT Administration Escitalopram Oxalate 20 mg 12/28/24 15:30 01/06/25 08:27 Escitalopram Oxalate 10 Mg Tablet PO 20 mg DAILY YODIT Administration Ferrous Sulfate 325 mg 12/28/24 17:00 01/06/25 08:27 Ferrous Sulfate [address] BY MOUTH 325 mg BID YODIT Administration Furosemide 40 mg 01/05/25 17:00 01/06/25 08:28 Furosemide 40 Mg Tablet PO 40 mg BID YODIT Administration Guaifenesin 1,200 mg 12/28/24 21:00 01/06/25 08:28 Guaifenesin 12 Hr 600 Mg Tabcr PO 1,200 mg Q12HR YODIT Administration Ceftriaxone Sodium 1 gm in 50 mls @ 100 mls/hr 01/01/25 09:40 01/06/25 09:33 Rocephin 1 Gm/Ns 50 Ml IVPB 100 mls/hr QAM YODIT Administration Doxycycline Hyclate 100 mg in 100 mls @ 100 mls/hr 01/06/25 08:00 01/06/25 08:26 Vibramycin 100 Mg/Ns 100 Ml IVPB 100 mls/hr Q12H YODIT Administration Ipratropium [place] 0.5 mg 12/29/24 12:00 01/06/25 07:49 Ipratropium Br 0.02% Inh Soln 0.5 Mg/2.5 Ml Vial INHALATION 0.5 mg Q4HRT YODIT Administration Levalbuterol HCl 0.63 mg 01/03/25 12:00 01/06/25 07:49 Levalbuterol Neb 1.25 Mg/3 Ml INHALATION 0.63 mg Q4HRT YODIT Administration Lidocaine 1 patch 12/31/24 11:55 01/06/25 08:29 Lidocaine 5% Patch TRANSDERM Not Given DAILY YODIT Magnesium Hydroxide 30 ml 12/28/24 14:40 Magnesium Hydroxide Susp 30 Ml Udc PO HS PRN Constipation Melatonin 5 mg 12/28/24 14:40 01/05/25 21:31 Melatonin 5 Mg Tablet PO 5 mg HS PRN Administration Insomnia Montelukast Sodium 10 mg 12/29/24 09:00 01/06/25 08:28 Montelukast Sodium 10 Mg Tablet PO 10 mg DAILY YODIT Administration Pantoprazole Sodium 40 mg 12/28/24 21:00 01/06/25 08:28 Pantoprazole 40 Mg Tablet PO 40 mg Q12HR YODIT Administration Prednisone 40 mg 01/03/25 09:15 01/05/25 08:42 Prednisone 20 Mg Tablet PO 40 mg DAILY@0800 YODIT Administration Quetiapine Fumarate 25 mg 12/28/24 21:00 01/05/25 21:30 Quetiapine Fumarate 25 Mg Tablet PO 25 mg HS YODIT Administration Ropinirole HCl 4 mg 12/28/24 21:00 01/05/25 21:31 Ropinirole Hcl 1 Mg Tablet PO 4 mg HS YODIT Administration Topiramate 200 mg 12/28/24 21:00 01/06/25 08:28 Topiramate 100 Mg Tablet PO 200 mg Q12HR YODIT Administration Trazodone HCl 50 mg 12/28/24 21:00 01/05/25 21:30 Trazodone Hcl 50 Mg Tablet PO 50 mg HS YODIT Administration Trazodone HCl 150 mg 01/03/25 13:16 01/05/25 21:30 Trazodone Hcl 50 Mg Tablet PO 150 mg HS PRN Administration Insomnia Radiology Results: ITS Impressions Chest X-Ray 01/02/25 09:39 IMPRESSION: 1. Increasing opacities in the right mid and bilateral lower lung zones which could represent worsening atelectasis or pneumonia. Modified Barium Swallow 01/03/25 15:10 IMPRESSION: Patient tolerated regular consistency oral feedings in the upright position. Please correlate with speech pathologist findings and specific feeding recommendations. Chest CT 01/05/25 17:10 IMPRESSION: 1. Mild emphysema with right upper lobe pneumonia. 2. 3.5 cm left thyroid mass. Labs Labs: Laboratory Results - last 24 hr 01/06/25 04:39 WBC 18.4 H RBC 4.00 L Hgb 10.3 L Hct 36.5 L MCV 91.3 MCH 25.8 L MCHC 28.2 L RDW 14.7 H Plt Count 344 MPV 9.3 Immature Gran % (Auto) Not Reportable Neut % (Auto) Not Reportable Lymph % (Auto) Not Reportable [place] % (Auto) Not Reportable Eos % (Auto) Not Reportable Baso % (Auto) Not Reportable Lymph # (Auto) Not Reportable [place] # (Auto) Not Reportable Eos # (Auto) Not Reportable Baso # (Auto) Not Reportable Abs Immat Gran (auto) Not Reportable Absolute Neuts (auto) Not Reportable Absolute Nucleated RBC Not Reportable Total Counted 100 Neutrophils % (Manual) 76 H Band Neutrophils % 1 Lymphocytes % (Manual) 19.0 Monocytes % (Manual) 3 Eosinophils % (Manual) 1 Nucleated RBC % Not Reportable Abs Neuts (Manual) 14.16 H Abs Lymphs (Manual) 3.49 Abs Monocytes (Manual) 0.55 Absolute Eos (Manual) 0.18 Smudge Cells Present Platelet Estimate Increased Clumped Platelets Present Large Platelets Present Giant Platelets Present Anisocytosis 1+ Schistocytes None seen Sodium 138 Potassium 3.3 L Chloride 97 L Carbon Dioxide 34 H Anion Gap 7 BUN 24 H Creatinine 1.42 H Estim Creat Clear Calc 46 Estimated GFR 37 L Glucose 121 H Calcium 8.7 Total Creatine Kinase < 20 L Vitamin B12 365.0 TSH 0.965
--- NOTE | 2025-01-06 11:28 | P.PNIM_ITS ---
Progress Note: A&P Assessment and Plan (1) Acute exacerbation of chronic obstructive pulmonary disease: Code(s): J44.1 - Chronic obstructive pulmonary disease with (acute) exacerbation Status: Acute Assessment and Plan: Has been on oxygen for over 5 years. 50 pack year hx tobacco use, quit 08/23/2022. Home meds: Trelegy, montelukast 10, albuterol PRN Was intitially on Bipap, 5/10 abg worse on bipap 15/5,28%. will use 20/5, 32% tonight with repeat abg in am and apnea link overnight. --stopped solumedrol and started prednisone 40 mg po. Pulm continues to follow --Pulmonology following, appreciate recommendations: Could not tolerate bipap but tolerating noninvasive ventillation with AVAPs Pulmonology will do peer to peer for NIVV (2) Iron deficiency anemia: Code(s): D50.9 - Iron deficiency anemia, unspecified Status: Chronic Assessment and Plan: * Continue home meds once they are confirmed. * Monitor and trend CBC. (3) Atrial fibrillation: Code(s): I48.91 - Unspecified atrial fibrillation Status: Chronic Assessment and Plan: Held amiodarone 200mg daily, metoprolol 100mg BID due to Possible Amiodarone toxicity and COPD worsening with Metoprolol * Rate controlled, decreased metoprolol to 50mg BID yesterday, pulmonary holding amiodarone for concern for subacute amiodarone toxicity Cardiology following (4) Acute on chronic congestive heart failure: Code(s): I50.9 - Heart failure, unspecified Status: Chronic Assessment and Plan: * Chronic heart failure * Last ECHO showing normal LVSF w/EF of 60-65% on 12/02/24. * Daily weight * Accurate Intake and output * stable (5) Insomnia: Code(s): G47.00 - Insomnia, unspecified Status: Acute Assessment and Plan: insomnia- melatonin doesnot help much added trazadone 12/29- helped-will continue avoid atarax - 01/03 wants dose increase as did not help much last night -will increase to 150 mg and monitor (6) Hallucination: Code(s): R44.3 - Hallucinations, unspecified Status: Acute Assessment and Plan: Reports shadows/smoke in her vision intermittently, has noticed when she has a UTI in the past. Intermittent, but started about [address] no acute fidnings. 01/01 UA negative (7) Thyroid nodule: Code(s): E04.1 - Nontoxic single thyroid nodule Status: Acute Assessment and Plan: CT Chest showed a large left thyroid nodule, increased in size since 2022, 3.5cm mass --Check TSH --following with endocrinology outpatient for thyroid mass (8) Weakness: Code(s): R53.1 - Weakness Status: Acute Assessment and Plan: Patient reports cardiac arrest 3 years ago that required CPR. Subsequently had lower extremity weakness and noticed jerking movements to lower extremities. Cardiac arrest was in the setting of renal failure but records are not available. Reports gradually increased weakness and associated with myalgias. Differential includes deconditioning, autoimmune, paraneoplastic, steroid related --Check VIRIDIANA, TSH, CK, aldolase --PT/OT Plan DVT prophylaxis on Sq Lovenox Subjective Date/time seen: 01/06/25 11:28 Interval history: Comfortable at bedside Review of Systems Review of Systems: All systems reviewed & are unremarkable except as noted in HPI and below Exam Narrative: General - Awake and alert. No acute distress Eyes - PERRLA, EOM intact ENT - No thrush, No erythema Neck - No noticeable or palpable swelling Lymph Nodes - No lymphadenopathy Cardiovascular - RRR no m/r/g, no JVD Lungs: Decreased, No wheezing, use of accessory muscles, no crackles Skin - Skin warm and dry, no wounds or rashes Abdomen - Normal bowel sounds, abdomen soft and nontender Extremities - No edema, cyanosis or clubbing Musculoskeletal - 2/5 strength lower extremities, normal range of motion, no swollen or erythematous joints. Neurological ? Alert and oriented x 3, CN 2-12 grossly intact. Psych: Normal mood and affect Const: General: comfortable Other: Obese, somnolent HENMT: Face/Nose/Sinus: Normal nares present Mouth: Yes dry mucous membranes Eyes: General: appearance normal, both eyes and all related structures Sclera: sclerae normal Pupils: Equal, round and reactive pupils present EOM: EOMs intact bilaterally Neck: Neck: supple and no JVD Lymphatic: lymphadenopathy not noted Chest: Other: not tender Resp: Effort & Inspection: abnormal respiratory effort (Increased effort) Auscultation: diminished lung sounds bilateral (Bases) Other: scattered wheezing Cardio: Rate: regular rate Rhythm: regular rhythm Heart sounds: no gallops, no murmurs and no rubs GI: Inspection: non-distended Auscultation: normal bowel sounds Skin: General skin exam: No normal color (pale), No lesion and No rashes Lesions: no lesions noted Rashes: no rashes noted Wounds: no wounds Neuro: Cranial nerves: Yes Equal, round and reactive pupils present Speech: normal speech Motor exam (neuro): Abnormal motor strength present (Generalized weakness) Extrem: General: edema Other: BLE edema. Not pitting Psych: Mental Status: mental status grossly normal Affect: normal affect Objective Data Vital Signs Vital Signs: Vital Signs - 24 hr 01/05/25 14:00 01/05/25 15:54 01/05/25 15:54 Temperature 97.4 F L Pulse Rate 79 73 Respiratory Rate 22 H 20 Blood Pressure 111/59 L Pulse Oximetry 95 93 Oxygen Delivery Nasal Cannula Oxygen Flow Rate 2 Fraction of Inspired Oxygen 01/05/25 16:06 01/05/25 19:32 01/05/25 20:00 Temperature 97.7 F Pulse Rate 76 77 86 Respiratory Rate 20 20 Blood Pressure 125/40 L Pulse Oximetry 92 Oxygen Delivery Oxygen Flow Rate Fraction of Inspired Oxygen 01/05/25 20:03 01/05/25 20:03 01/05/25 20:20 Temperature Pulse Rate 94 81 87 Respiratory Rate 20 20 20 Blood Pressure Pulse Oximetry 94 Oxygen Delivery Nasal Cannula Oxygen Flow Rate 2 Fraction of Inspired Oxygen 01/05/25 21:25 01/05/25 21:35 01/05/25 23:15 Temperature Pulse Rate 84 76 Respiratory Rate 23 H 17 Blood Pressure Pulse Oximetry 92 95 Oxygen Delivery Nasal Cannula BiPAP Oxygen Flow Rate 2 Fraction of Inspired Oxygen 01/05/25 23:29 01/05/25 23:35 01/06/25 00:00 Temperature Pulse Rate 73 69 81 Respiratory Rate 17 19 Blood Pressure Pulse Oximetry 95 Oxygen Delivery BiPAP Oxygen Flow Rate Fraction of Inspired Oxygen 01/06/25 03:30 01/06/25 04:00 01/06/25 04:21 Temperature 97.8 F Pulse Rate 72 82 80 Respiratory Rate 17 20 Blood Pressure 125/54 L Pulse Oximetry 94 95 Oxygen Delivery BiPAP Oxygen Flow Rate Fraction of Inspired Oxygen 01/06/25 07:51 01/06/25 07:53 01/06/25 08:00 Temperature Pulse Rate 65 65 89 Respiratory Rate 17 17 Blood Pressure Pulse Oximetry Oxygen Delivery Oxygen Flow Rate Fraction of Inspired Oxygen 01/06/25 08:19 01/06/25 08:30 Temperature Pulse Rate 65 Respiratory Rate Blood Pressure Pulse Oximetry 96 92 Oxygen Delivery BiPAP Nasal Cannula Oxygen Flow Rate 1 Fraction of Inspired Oxygen 32 Intake/Output Intake/Output: Intake & Output 01/03/25 01/04/25 01/05/25 01/06/25 23:59 23:59 23:59 23:59 Intake Total 3150 5140 3920 630 Output Total 3200 8291 6400 1250 Balance -50 1382 -5760 -620 Meds/Results Medications: Active Medications Generic Name Dose Route Start Last Admin Trade Name Freq PRN Reason Stop Dose Admin Hydrocodone Bitart/Acetaminophen 1 tab 12/31/24 09:42 12/31/24 10:10 Hydrocodone/Acetaminophen (*Crx) 5-325 Mg Tablet PO 1 tab Q4H PRN Administration Pain Rated 4-6 Amitriptyline HCl 10 mg 12/28/24 21:00 01/05/25 21:31 Amitriptyline Hcl 10 Mg Tablet PO 10 mg HS YODIT Administration Benzonatate 200 mg 01/03/25 09:00 01/06/25 08:26 Benzonatate 100 Mg Capsule PO 200 mg TID YODIT Administration Budesonide 0.5 mg 01/06/25 08:00 01/06/25 08:55 Budesonide Respule Neb 0.5 Mg/2 Ml Amp INHALATION Not Given Q12HRT YODIT Duloxetine HCl 40 mg 12/28/24 17:00 01/06/25 08:26 Duloxetine Hcl 20 Mg Capsule.Dr PO 40 mg BID YODIT Administration Escitalopram Oxalate 20 mg 12/28/24 15:30 01/06/25 08:27 Escitalopram Oxalate 10 Mg Tablet PO 20 mg DAILY YODIT Administration Ferrous Sulfate 325 mg 12/28/24 17:00 01/06/25 08:27 Ferrous Sulfate [address] BY MOUTH 325 mg BID YODIT Administration Furosemide 40 mg 01/05/25 17:00 01/06/25 08:28 Furosemide 40 Mg Tablet PO 40 mg BID YODIT Administration Guaifenesin 1,200 mg 12/28/24 21:00 01/06/25 08:28 Guaifenesin 12 Hr 600 Mg Tabcr PO 1,200 mg Q12HR YODIT Administration Ceftriaxone Sodium 1 gm in 50 mls @ 100 mls/hr 01/01/25 09:40 01/06/25 10:05 Rocephin 1 Gm/Ns 50 Ml IVPB Infused QAM YODIT Infusion Doxycycline Hyclate 100 mg in 100 mls @ 100 mls/hr 01/06/25 08:00 01/06/25 09:25 Vibramycin 100 Mg/Ns 100 Ml IVPB Infused Q12H YODIT Infusion Ipratropium [place] 0.5 mg 12/29/24 12:00 01/06/25 07:49 Ipratropium Br 0.02% Inh Soln 0.5 Mg/2.5 Ml Vial INHALATION 0.5 mg Q4HRT YODIT Administration Levalbuterol HCl 0.63 mg 01/03/25 12:00 01/06/25 07:49 Levalbuterol Neb 1.25 Mg/3 Ml INHALATION 0.63 mg Q4HRT YODIT Administration Lidocaine 1 patch 12/31/24 11:55 01/06/25 08:29 Lidocaine 5% Patch TRANSDERM Not Given DAILY YODIT Magnesium Hydroxide 30 ml 12/28/24 14:40 Magnesium Hydroxide Susp 30 Ml Udc PO HS PRN Constipation Melatonin 5 mg 12/28/24 14:40 01/05/25 21:31 Melatonin 5 Mg Tablet PO 5 mg HS PRN Administration Insomnia Montelukast Sodium 10 mg 12/29/24 09:00 01/06/25 08:28 Montelukast Sodium 10 Mg Tablet PO 10 mg DAILY YODIT Administration Pantoprazole Sodium 40 mg 12/28/24 21:00 01/06/25 08:28 Pantoprazole 40 Mg Tablet PO 40 mg Q12HR YODIT Administration Prednisone 40 mg 01/03/25 09:15 01/05/25 08:42 Prednisone 20 Mg Tablet PO 40 mg DAILY@0800 YODIT Administration Quetiapine Fumarate 25 mg 12/28/24 21:00 01/05/25 21:30 Quetiapine Fumarate 25 Mg Tablet PO 25 mg HS YODIT Administration Ropinirole HCl 4 mg 12/28/24 21:00 01/05/25 21:31 Ropinirole Hcl 1 Mg Tablet PO 4 mg HS YODIT Administration Topiramate 200 mg 12/28/24 21:00 01/06/25 08:28 Topiramate 100 Mg Tablet PO 200 mg Q12HR YODIT Administration Trazodone HCl 50 mg 12/28/24 21:00 01/05/25 21:30 Trazodone Hcl 50 Mg Tablet PO 50 mg HS YODIT Administration Trazodone HCl 150 mg 01/03/25 13:16 01/05/25 21:30 Trazodone Hcl 50 Mg Tablet PO 150 mg HS PRN Administration Insomnia Radiology Results: ITS Impressions Chest X-Ray 01/02/25 09:39 IMPRESSION: 1. Increasing opacities in the right mid and bilateral lower lung zones which could represent worsening atelectasis or pneumonia. Modified Barium Swallow 01/03/25 15:10 IMPRESSION: Patient tolerated regular consistency oral feedings in the upright position. Please correlate with speech pathologist findings and specific feeding recommendations. Chest CT 01/05/25 17:10 IMPRESSION: 1. Mild emphysema with right upper lobe pneumonia. 2. 3.5 cm left thyroid mass. Labs Labs: Laboratory Results - last 24 hr 01/06/25 04:39 WBC 18.4 H RBC 4.00 L Hgb 10.3 L Hct 36.5 L MCV 91.3 MCH 25.8 L MCHC 28.2 L RDW 14.7 H Plt Count 344 MPV 9.3 Immature Gran % (Auto) Not Reportable Neut % (Auto) Not Reportable Lymph % (Auto) Not Reportable [place] % (Auto) Not Reportable Eos % (Auto) Not Reportable Baso % (Auto) Not Reportable Lymph # (Auto) Not Reportable [place] # (Auto) Not Reportable Eos # (Auto) Not Reportable Baso # (Auto) Not Reportable Abs Immat Gran (auto) Not Reportable Absolute Neuts (auto) Not Reportable Absolute Nucleated RBC Not Reportable Total Counted 100 Neutrophils % (Manual) 76 H Band Neutrophils % 1 Lymphocytes % (Manual) 19.0 Monocytes % (Manual) 3 Eosinophils % (Manual) 1 Nucleated RBC % Not Reportable Abs Neuts (Manual) 14.16 H Abs Lymphs (Manual) 3.49 Abs Monocytes (Manual) 0.55 Absolute Eos (Manual) 0.18 Smudge Cells Present Platelet Estimate Increased Clumped Platelets Present Large Platelets Present Giant Platelets Present Anisocytosis 1+ Schistocytes None seen Sodium 138 Potassium 3.3 L Chloride 97 L Carbon Dioxide 34 H Anion Gap 7 BUN 24 H Creatinine 1.42 H Estim Creat Clear Calc 46 Estimated GFR 37 L Glucose 121 H Calcium 8.7 Total Creatine Kinase < 20 L Vitamin B12 365.0 TSH 0.965 Quality VTE Prophylaxis VTE prophylaxis: mechanical ordered
[2025-01-06 12:01] LABS: Procalcitonin 0.1 ng/mL
[2025-01-06 13:28] LABS: ANA Cascade Screen NEGATIVE (NEGATIVE)
[2025-01-06] MEDS: BUDESONIDE RESPULE NEB 0.5 MG/2 ML AMP INHALATION (21:02)
[2025-01-06] MEDS: rOPINIRole HCL 1 MG TABLET 4 MG PO (21:03)
[2025-01-06] MEDS: AMITRIPTYLINE HCL 10 MG TABLET PO (21:03)
[2025-01-06] MEDS: traZODone HCL 50 MG TABLET 150 MG PO (21:04)
[2025-01-06] MEDS: QUEtiapine FUMARATE 25 MG TABLET PO (21:04)
[2025-01-06] MEDS: traZODone HCL 50 MG TABLET PO (21:04)
[2025-01-06] MEDS: MELATONIN 5 MG TABLET PO (21:04)
[2025-01-07] VITALS (24 sets, daily range): BP systolic 114–136; BP diastolic 44–53; PULSE 87–109; RESP 12–20; TEMP 36.3–36.5; O2SAT 91–95
[2025-01-07] MEDS: LEVALBUTEROL NEB 1.25 MG/3 ML 0.63 MG INHALATION ×7 (00:10→20:18)
[2025-01-07] MEDS: IPRATROPIUM BR 0.02% INH SOLN 0.5 MG/2.5 ML VIAL INHALATION ×6 (00:15→20:18)
[2025-01-07 04:40] LABS: Basophils Absolute Auto 0.1 K/mm3 (0.0-0.1); Basophils Percent Auto 0.7 % (0.2-1.2); Eosinophils Absolute Auto 0.3 K/mm3 (0-0.3); Eosinophils Percent Auto 1.9 % (0-4.4); Hematocrit 37.4 % (37.0-47.0); Hemoglobin 10.5 g/dL (12.0-15.0); Immature Granulocyte Absolute 1.42 K/mm3 (0.00-0.031); Immature Granulocyte Percent A 9.4 % (0-0.5); Lymphocytes Absolute Auto 3.23 K/mm3 (0.9-3.2); Lymphocytes Percent Auto 21.4 % (18.3-44.2); Mean Corpuscular HGB Conc 28.1 g/dl (32-36); Mean Corpuscular Hemoglobin 25.9 pg (26-34); Mean Corpuscular Volume 92.1 fl (80-100); Mean Platelet Volume 9.1 fl (7.4-10.4); Monocytes Percent Auto 6.9 % (2.6-8.5); Neutrophils Percent Auto 59.7 % (45.5-73.1); Platelet Count Result 330 k/mm3 (150-375); Red Blood Count 4.06 M/mm3 (4.2-5.4); White Blood Count 15.1 K/mm3 (4.5-10.0)
[2025-01-07 04:49] LABS: Anion Gap 5 mmol/L (4-12); Blood Urea Nitrogen 23 mg/dL (7-17); Calcium 8.9 mg/dL (8.4-10.2); Carbon Dioxide 36 mmol/L (22-30); Chloride 99 mmol/L (98-107); Estimated CRCL calculation 47 ml/min; Estimated Glomerular Filt Rate 39; Glucose 130 mg/dL (65-110); Potassium 3.6 mmol/L (3.4-5.0); Sodium 140 mmol/L (137-145)
[2025-01-07] MEDS: BUDESONIDE RESPULE NEB 0.5 MG/2 ML AMP INHALATION ×2 (07:32→20:19)
--- NOTE | 2025-01-07 09:11 | P.PNIM_ITS ---
Progress Note: A&P Assessment and Plan (1) Acute exacerbation of chronic obstructive pulmonary disease: Code(s): J44.1 - Chronic obstructive pulmonary disease with (acute) exacerbation Status: Acute Assessment and Plan: Has been on oxygen for over 5 years. 50 pack year hx tobacco use, quit 08/23/2022. Home meds: Trelegy, montelukast 10, albuterol PRN Was intitially on Bipap, 5/10 abg worse on bipap 15/5,28%. will use 20/5, 32% tonight with repeat abg in am and apnea link overnight. --stopped solumedrol and started prednisone 40 mg po. Pulm continues to follow --Pulmonology following, appreciate recommendations: Could not tolerate bipap but tolerating noninvasive ventillation with AVAPs Pulmonology will do peer to peer for NIVV (2) Iron deficiency anemia: Code(s): D50.9 - Iron deficiency anemia, unspecified Status: Chronic Assessment and Plan: * Continue home meds once they are confirmed. * Monitor and trend CBC. (3) Atrial fibrillation: Code(s): I48.91 - Unspecified atrial fibrillation Status: Chronic Assessment and Plan: Held amiodarone 200mg daily, metoprolol 100mg BID due to Possible Amiodarone toxicity and COPD worsening with Metoprolol * Rate controlled, decreased metoprolol to 50mg BID yesterday, pulmonary holding amiodarone for concern for subacute amiodarone toxicity Cardiology following (4) Acute on chronic congestive heart failure: Code(s): I50.9 - Heart failure, unspecified Status: Chronic Assessment and Plan: * Chronic heart failure * Last ECHO showing normal LVSF w/EF of 60-65% on 12/02/24. * Daily weight * Accurate Intake and output * stable (5) Insomnia: Code(s): G47.00 - Insomnia, unspecified Status: Acute Assessment and Plan: insomnia- melatonin doesnot help much added trazadone 12/29- helped-will continue avoid atarax - 01/03 wants dose increase as did not help much last night -will increase to 150 mg and monitor (6) Hallucination: Code(s): R44.3 - Hallucinations, unspecified Status: Acute Assessment and Plan: Reports shadows/smoke in her vision intermittently, has noticed when she has a UTI in the past. Intermittent, but started about [address] no acute fidnings. 01/01 UA negative (7) Thyroid nodule: Code(s): E04.1 - Nontoxic single thyroid nodule Status: Acute Assessment and Plan: CT Chest showed a large left thyroid nodule, increased in size since 2022, 3.5cm mass --Check TSH --following with endocrinology outpatient for thyroid mass (8) Weakness: Code(s): R53.1 - Weakness Status: Acute Assessment and Plan: Patient reports cardiac arrest 3 years ago that required CPR. Subsequently had lower extremity weakness and noticed jerking movements to lower extremities. Cardiac arrest was in the setting of renal failure but records are not available. Reports gradually increased weakness and associated with myalgias. Differential includes deconditioning, autoimmune, paraneoplastic, steroid related --Check VIRIDIANA, TSH, CK, aldolase --PT/OT Plan DVT prophylaxis on Sq Lovenox Awaiting Pulmonology clearance for discharge Subjective Date/time seen: 01/07/25 09:11 Interval history: Comfortable at bedside Review of Systems Review of Systems: All systems reviewed & are unremarkable except as noted in HPI and below Exam Narrative: General - Awake and alert. No acute distress Eyes - PERRLA, EOM intact ENT - No thrush, No erythema Neck - No noticeable or palpable swelling Lymph Nodes - No lymphadenopathy Cardiovascular - RRR no m/r/g, no JVD Lungs: Decreased, No wheezing, use of accessory muscles, no crackles Skin - Skin warm and dry, no wounds or rashes Abdomen - Normal bowel sounds, abdomen soft and nontender Extremities - No edema, cyanosis or clubbing Musculoskeletal - 2/5 strength lower extremities, normal range of motion, no swollen or erythematous joints. Neurological ? Alert and oriented x 3, CN 2-12 grossly intact. Psych: Normal mood and affect Const: General: comfortable Other: Obese, somnolent HENMT: Face/Nose/Sinus: Normal nares present Mouth: Yes dry mucous membranes Eyes: General: appearance normal, both eyes and all related structures Sclera: sclerae normal Pupils: Equal, round and reactive pupils present EOM: EOMs intact bilaterally Neck: Neck: supple and no JVD Lymphatic: lymphadenopathy not noted Chest: Other: not tender Resp: Effort & Inspection: abnormal respiratory effort (Increased effort) Auscultation: diminished lung sounds bilateral (Bases) Other: scattered wheezing Cardio: Rate: regular rate Rhythm: regular rhythm Heart sounds: no gallops, no murmurs and no rubs GI: Inspection: non-distended Auscultation: normal bowel sounds Skin: General skin exam: No normal color (pale), No lesion and No rashes Lesions: no lesions noted Rashes: no rashes noted Wounds: no wounds Neuro: Cranial nerves: Yes Equal, round and reactive pupils present Speech: normal speech Motor exam (neuro): Abnormal motor strength present (Generalized weakness) Extrem: General: edema Other: BLE edema. Not pitting Psych: Mental Status: mental status grossly normal Affect: normal affect Objective Data Vital Signs Vital Signs: Vital Signs - 24 hr 01/06/25 12:00 01/06/25 14:00 01/06/25 14:33 Temperature Pulse Rate 83 96 127 H Respiratory Rate 28 H Blood Pressure 120/49 L Pulse Oximetry 94 Oxygen Delivery Oxygen Flow Rate Fraction of Inspired Oxygen 01/06/25 14:41 01/06/25 16:00 01/06/25 20:00 Temperature Pulse Rate 105 H 102 H 95 Respiratory Rate 22 H Blood Pressure Pulse Oximetry Oxygen Delivery Oxygen Flow Rate Fraction of Inspired Oxygen 01/06/25 20:54 01/06/25 21:03 01/06/25 21:10 Temperature Pulse Rate 105 H 105 H Respiratory Rate 20 Blood Pressure Pulse Oximetry 90 95 Oxygen Delivery Nasal Cannula Nasal Cannula Oxygen Flow Rate 1 2 Fraction of Inspired Oxygen 32 01/06/25 21:26 01/06/25 21:36 01/06/25 22:22 Temperature 97.6 F Pulse Rate 99 105 H 106 H Respiratory Rate 20 20 19 Blood Pressure 109/44 L Pulse Oximetry 90 94 Oxygen Delivery BiPAP Oxygen Flow Rate Fraction of Inspired Oxygen 01/07/25 00:00 01/07/25 00:10 01/07/25 00:10 Temperature Pulse Rate 89 88 88 Respiratory Rate 16 16 Blood Pressure Pulse Oximetry 95 Oxygen Delivery BiPAP Oxygen Flow Rate Fraction of Inspired Oxygen 01/07/25 00:18 01/07/25 03:31 01/07/25 04:00 Temperature 97.7 F Pulse Rate 87 96 91 Respiratory Rate 18 20 Blood Pressure 114/44 L Pulse Oximetry 94 Oxygen Delivery Oxygen Flow Rate Fraction of Inspired Oxygen 01/07/25 04:04 01/07/25 04:05 01/07/25 04:12 Temperature Pulse Rate 103 H 103 H 96 Respiratory Rate 18 18 17 Blood Pressure Pulse Oximetry 91 Oxygen Delivery BiPAP Oxygen Flow Rate Fraction of Inspired Oxygen 01/07/25 07:36 01/07/25 07:36 01/07/25 07:49 Temperature Pulse Rate 97 108 H Respiratory Rate 20 20 Blood Pressure Pulse Oximetry 93 Oxygen Delivery Nasal Cannula Oxygen Flow Rate 2 Fraction of Inspired Oxygen 28 Intake/Output Intake/Output: Intake & Output 01/04/25 01/05/25 01/06/25 01/07/25 23:59 23:59 23:59 23:59 Intake Total 5140 3920 4510 390 Output Total 1999 6409 7700 1500 Balance 5567 -3481 -7747 -8076 Meds/Results Medications: Active Medications Generic Name Dose Route Start Last Admin Trade Name Freq PRN Reason Stop Dose Admin Hydrocodone Bitart/Acetaminophen 1 tab 12/31/24 09:42 12/31/24 10:10 Hydrocodone/Acetaminophen (*Crx) 5-325 Mg Tablet PO 1 tab Q4H PRN Administration Pain Rated 4-6 Amitriptyline HCl 10 mg 12/28/24 21:00 01/06/25 21:03 Amitriptyline Hcl 10 Mg Tablet PO 10 mg HS YODIT Administration Benzonatate 200 mg 01/03/25 09:00 01/06/25 16:44 Benzonatate 100 Mg Capsule PO 200 mg TID YODIT Administration Budesonide 0.5 mg 01/06/25 08:00 01/07/25 07:32 Budesonide Respule Neb 0.5 Mg/2 Ml Amp INHALATION 0.5 mg Q12HRT YODIT Administration Duloxetine HCl 40 mg 12/28/24 17:00 01/06/25 16:44 Duloxetine Hcl 20 Mg Capsule.Dr PO 40 mg BID YODIT Administration Enoxaparin Sodium 40 mg 01/07/25 09:00 Enoxaparin 40 Mg/0.4 Ml Syringe SUB-Q DAILY [facility] Escitalopram Oxalate 20 mg 12/28/24 15:30 01/06/25 08:27 Escitalopram Oxalate 10 Mg Tablet PO 20 mg DAILY YODIT Administration Ferrous Sulfate 325 mg 12/28/24 17:00 01/06/25 16:44 Ferrous Sulfate [address] BY MOUTH 325 mg BID YODIT Administration Furosemide 40 mg 01/05/25 17:00 01/06/25 16:44 Furosemide 40 Mg Tablet PO 40 mg BID YODIT Administration Guaifenesin 1,200 mg 12/28/24 21:00 01/06/25 21:03 Guaifenesin 12 Hr 600 Mg Tabcr PO 1,200 mg Q12HR YODIT Administration Ceftriaxone Sodium 1 gm in 50 mls @ 100 mls/hr 01/01/25 09:40 01/06/25 10:05 Rocephin 1 Gm/Ns 50 Ml IVPB Infused QAM YODIT Infusion Doxycycline Hyclate 100 mg in 100 mls @ 100 mls/hr 01/06/25 08:00 01/06/25 22:05 Vibramycin 100 Mg/Ns 100 Ml IVPB Infused Q12H YODIT Infusion Ipratropium [place] 0.5 mg 12/29/24 12:00 01/07/25 07:32 Ipratropium Br 0.02% Inh Soln 0.5 Mg/2.5 Ml Vial INHALATION 0.5 mg Q4HRT YODIT Administration Levalbuterol HCl 0.63 mg 01/03/25 12:00 01/07/25 07:32 Levalbuterol Neb 1.25 Mg/3 Ml INHALATION 0.63 mg Q4HRT YODIT Administration Lidocaine 1 patch 12/31/24 11:55 01/06/25 08:29 Lidocaine 5% Patch TRANSDERM Not Given DAILY YDOIT Magnesium Hydroxide 30 ml 12/28/24 14:40 Magnesium Hydroxide Susp 30 Ml Udc PO HS PRN Constipation Melatonin 5 mg 12/28/24 14:40 01/06/25 21:04 Melatonin 5 Mg Tablet PO 5 mg HS PRN Administration Insomnia Montelukast Sodium 10 mg 12/29/24 09:00 01/06/25 08:28 Montelukast Sodium 10 Mg Tablet PO 10 mg DAILY YODIT Administration Pantoprazole Sodium 40 mg 12/28/24 21:00 01/06/25 21:03 Pantoprazole 40 Mg Tablet PO 40 mg Q12HR YODIT Administration Quetiapine Fumarate 25 mg 12/28/24 21:00 01/06/25 21:04 Quetiapine Fumarate 25 Mg Tablet PO 25 mg HS YODIT Administration Ropinirole HCl 4 mg 12/28/24 21:00 01/06/25 21:03 Ropinirole Hcl 1 Mg Tablet PO 4 mg HS YODIT Administration Topiramate 200 mg 12/28/24 21:00 01/06/25 21:03 Topiramate 100 Mg Tablet PO 200 mg Q12HR YODIT Administration Trazodone HCl 50 mg 12/28/24 21:00 01/06/25 21:04 Trazodone Hcl 50 Mg Tablet PO 50 mg HS YODIT Administration Trazodone HCl 150 mg 01/03/25 13:16 01/06/25 21:04 Trazodone Hcl 50 Mg Tablet PO 150 mg HS PRN Administration Insomnia Radiology Results: ITS Impressions Chest X-Ray 01/02/25 09:39 IMPRESSION: 1. Increasing opacities in the right mid and bilateral lower lung zones which could represent worsening atelectasis or pneumonia. Modified Barium Swallow 01/03/25 15:10 IMPRESSION: Patient tolerated regular consistency oral feedings in the upright position. Please correlate with speech pathologist findings and specific feeding recommendations. Chest CT 01/05/25 17:10 IMPRESSION: 1. Mild emphysema with right upper lobe pneumonia. 2. 3.5 cm left thyroid mass. Labs Labs: Laboratory Results - last 24 hr 01/05/25 01/06/25 01/07/25 04:14 04:35 04:15 WBC 15.1 H RBC 4.06 L Hgb 10.5 L Hct 37.4 MCV 92.1 MCH 25.9 L MCHC 28.1 L RDW 15.0 H Plt Count 330 MPV 9.1 Immature Gran % (Auto) 9.4 H Neut % (Auto) 59.7 Lymph % (Auto) 21.4 [place] % (Auto) 6.9 Eos % (Auto) 1.9 Baso % (Auto) 0.7 Lymph # (Auto) 3.23 H [place] # (Auto) 1.0 H Eos # (Auto) 0.3 Baso # (Auto) 0.1 Abs Immat Gran (auto) 1.42 H Absolute Neuts (auto) 9.0 H Absolute Nucleated RBC 0.000 Nucleated RBC % 0.0 Sodium 140 Potassium 3.6 Chloride 99 Carbon Dioxide 36 H Anion Gap 5 BUN 23 H Creatinine 1.37 H Estim Creat Clear Calc 47 Estimated GFR 39 L Glucose 130 H Calcium 8.9 Procalcitonin 0.1 VIRIDIANA Scrn Qualitative Negative Quality VTE Prophylaxis VTE prophylaxis: mechanical ordered
[2025-01-07] MEDS: PANTOPRAZOLE 40 MG TABLET PO ×2 (09:26→20:40)
[2025-01-07] MEDS: DULoxetine HCL 20 MG CAPSULE.DR 40 MG PO ×2 (09:26→16:56)
[2025-01-07] MEDS: guaiFENesin 12 HR 600 MG TABCR 1200 MG PO ×2 (09:26→20:40)
[2025-01-07] MEDS: ESCITALOPRAM OXALATE 10 MG TABLET 20 MG PO (09:27)
[2025-01-07] MEDS: MONTELUKAST SODIUM 10 MG TABLET PO (09:27)
[2025-01-07] MEDS: FERROUS SULFATE 325 MG TABLET DR BY MOUTH ×2 (09:27→16:56)
[2025-01-07] MEDS: TOPIRAMATE 100 MG TABLET 200 MG PO ×2 (09:27→20:41)
[2025-01-07] MEDS: FUROSEMIDE 40 MG TABLET PO ×2 (09:27→16:56)
[2025-01-07] MEDS: BENZONATATE 100 MG CAPSULE 200 MG PO ×3 (09:27→16:55)
[2025-01-07] MEDS: ENOXAPARIN 40 MG/0.4 ML SYRINGE SUB-Q (09:29)
[2025-01-07] MEDS: DOXYCYCLINE 100 MG/NS 100 ML 100 MG/100 ML BAG IVPB ×2 (09:29→20:39)
--- NOTE | 2025-01-07 10:05 | PM.PNPUL ---
Progress Note: A&P Assessment and Plan (1) Chronic obstructive pulmonary disease: Code(s): J44.9 - Chronic obstructive pulmonary disease, unspecified Status: Chronic Assessment and Plan: Regarding her COPD, 50 pack year tobacco use, quit 08/23/2022, alpha 1 anti trypsin genotype MZ, alpha 1 anti trypsin level 134, normal. The patient has been on oxygen for the last 5 years. I have no PFTs. She is using 5 L at rest with home saturations 92-96%. First CT scan in our system is from 08/27/2022 shows mild apical predominant centrilobular emphysema. Repeat CT angiogram of the chest on 12/02/2024 demonstrates mild apical predominant centrilobular emphysema. Patient is maintained on trelegy inhaler but she does not use a because of the taste. Patient takes Trelegy 100, montelukast 10 and albuterol p.r.n.. Patient tells me she wheezes every day when she takes rescue albuterol at home it relieves her wheezing for 1-2 minutes. 12/01/2024: White blood cell count 14.8, eosinophils 0.6%= 89 per micro L. patient presents with shortness of breath, no change in phlegm production or color, worsening shortness of breath and hypoxemic respiratory failure. Patient treated with bronchodilators, steroids and BiPAP. 12/28/24: The patient tells me that the day after she left the hospital she started getting worse with fatigue and then worsening oxygenation about 5 days ago. On her prescribed 2 L her saturations were in the 80s and then as low as 79%. She denied fever, chills, rigors. She had a dry cough with no phlegm and no hemoptysis. Currently says she is improved and breathing 50% back to her normal but she feels still feels tired and short of breath. The patient told me she had improved and could come off of the mask and she was placed on 3 L nasal cannula with saturations 91% Plan: Will continue treatment for possible COPD exacerbation. Patient has wheezing but has wheezing every day. I will decrease her Solu-Medrol to 20 mg IV q.6 hours. Continue DuoNebs q.6 hours. Patient is on levofloxacin for possible pneumonia and bronchitis. I will obtain a D-dimer and if positive will get a CT angiogram of the chest. If negative will get a CT scan of the chest looking for focal infiltrates consistent with a pneumonia. Goal saturation 90-94%, Adjust oxygen accordingly. Will add guaifenesin 1200 mg p.o. b.i.d. Later in the day patient had a CT scan of the chest with moderate apical predominant centrilobular emphysema and bibasilar atelectasis with no evidence of pneumonia. 12/29/2024: Patient states she had a bad night and his breathing worse today. Her cough is increased with no phlegm and no blood. She is afebrile. White blood cell count 15.2, creatinine 1.61. Currently patient is on 4 L nasal cannula saturations 94%. Patient received a Xopenex treatment and had a heart rate 160 that decreased on its own and required no medical intervention. Plan: I will continue Solu-Medrol 20 mg IV q.6. I will discontinue her levalbuterol due to the tachy arrhythmia increase her ipratropium nebulizers to q.4 hours. No evidence of pneumonia. Will treat for tracheobronchitis with Levaquin 750 mg p.o. q.48h, day 2. Continue guaifenesin 12 50 b.i.d., montelukast 10. Patient is on Lasix 20 p.o. b.i.d.. 12/30/24: Patient tells me she is having a better day today. She says that her breathing is 75% back to her normal. Her cough is improved but increased from baseline. She has no phlegm and no hemoptysis. She is afebrile. Her weight today is 112.7 kg. Patient wore the hospital noninvasive ventilator with the AVAPS mode and said that she slept well. Plan: I will change the patient to prednisone 40 mg p.o. q.day, Day 3 of steroids. I will continue ipratropium nebulizers q.4 hours. Continue montelukast 10 q day and guaifenesin 1200 p.o. b.i.d.. continue Levaquin for tracheobronchitis, day 3. Encouraged her out of bed to chair, ambulation as tolerated, physical therapy has been ordered on 12/29/2024. Respiratory pathogen panel, urine Legionella, urine pneumococcal antigen pending. pulmonary inpatient services will resume on 01/02/2025, call with questions. 01/03/2024 patient states that she is breathing 75% back to her normal. Her dyspnea on exertion is back at her normal. His cough is persistent but improved. She is afebrile. White blood cell count 14.1, creatinine 1.46. Her weight is 114. Her currently the patient is on 3 L with saturation 95%. Patient wore the hospital BiPAP with a rate of 20 pressures 20/5 and 32% FiO2 and said that she could not sleep last night because the pressure was too high and the machine had a loud leak and kept her up. BNP 859 which is increased from 563. Continue Lasix 20 p.o. b.i.d.. Plan: Patient continues to improve. Today is day 6 of prednisone and will discontinue after today's dose. Continue ipratropium q.4 hours. Patient is on Levaquin day 6. She is on ceftriaxone day 2 for UTI. Goal saturation 90-94%, adjust oxygen accordingly. 01/04/2024: Patient tells me she is breathing worse today. She says her cough is more persistent and heavier, remains dry with no phlegm. Her breathing is worse. She is able to walk with physical therapy yesterday and did well. White blood cell count 15.7, creatinine 1.42. Respiratory pathogen panel is negative. Plan. Patient worse today and will restart prednisone 40. Her respiratory pathogen panel is negative. I will obtain a modified barium swallow. Will begin Tessalon Perles 200 t.i.d. standing. Will start levalbuterol 0.63 mcg q.4 hours to see if this will provide some relief. Patient remains on Lasix 20 p.o. b.i.d. she is status post 7 days of levofloxacin and now on ceftriaxone for UTI, day 2. Continue guaifenesin 1200 q.12 hours, Vest therapy, montelukast. Patient is on metoprolol 100 q.12 hours as well as amiodarone 200, Later in the day patient had a modified barium swallow with no evidence of aspiration. 01/05/2024: Patient tells me she is breathing better today. Her cough persists but is better. Her shortness of breath and wheezing persists. She is afebrile. her weight today is 117.4 kg, yesterday she was 1.4 L positive on Lasix 20 p.o. b.i.d.. Plan: Patient had just received vest therapy as well as a nebulized treatment and she still had diffuse wheezing. Overall she is no better after 8 days of steroids, course of levofloxacin and now on ceftriaxone, bronchodilators, Lasix, montelukast and guaifenesin. Last admission on 12/02/2024 patient had AFib with RVR and her metoprolol was increased from 25 XL a day to 100 p.o. b.i.d. and she was started on amiodarone. She tells me she has had persistent symptoms since then. I have placed a hold on the metoprolol and amiodarone. Discussed with Lesley Rock and she will consult Cardiology regarding AFib management. 01/05/25: Overall the patient states that her breathing remains compromised but about the same as yesterday. Her cough has improved and she has no phlegm. Her dyspnea on exertion is the same. Currently she is on 3 L nasal cannula saturations 95%. I decreased her to 2 L. Her white blood cell count is 16.1, creatinine is 1.46. She is positive 3 L yesterday and 4.1 L since admission. Her weight is 117.2 kg her BNP is 614 which is improved from 859 on 01/02/2025. Plan: Patient has not improved. Continue prednisone 40 mg p.o. q.day, day 9, then discontinue. nebulized ipratropium and levalbuterol q.4 hours, montelukast 10, guaifenesin 1200 p.o. b.i.d.. Completed levofloxacin for 7 days and now on ceftriaxone for UTI day 5. I will order CT scan of the chest today. Will try Lasix 40 p.o. b.i.d. to see if she improves with diuresis. Metoprolol and amiodarone have been held since 01/04. Cardiology consult obtained yesterday and appreciate their very detailed and thoughtful consult. Regarding the amiodarone, I agree with her consult note regarding chronic amiodaarone toxicity but I am more worried about a subacute reaction to amiodarone rather than chronic amiodarone lung toxicity. Since patient still has respiratory distress I recommend discontinuation of amiodarone at this time. Later in the day patient had a CT scan of the chest with mild apical predominant centrilobular emphysema, small area of atelectasis versus infiltrate posterior segment right upper lobe. There is no pleural disease, interstitial lung disease, masses, or nodules. 01/06/25: patient tells me she is breathing a little bit better today. She is able to take deeper breaths. Her dry cough persists. She has no phlegm or hemoptysis. She is afebrile. White blood cell count 18.4, creatinine 1.42. Patient is on 2 L nasal cannula saturations 94%. I turned her to room air and after 4 minutes her saturations decreased to 88% and I turned her back to 1 L and her saturations were 92%. Yesterday she diuresed 2.4 L and cumulative she is positive 1.3 L since admission. Her weight today is 119 kg. Plan: overall patient is a little bit better today. She has received 9 days of prednisone and I will discontinue today. I will add nebulized budesonide 500 b.i.d. and continued ipratropium and levalbuterol nebulizers q.4 hours, montelukast 10, guaifenesin 1200. Patient Has completed 7 days of levofloxacin, last dose 01/03/2025, is on ceftriaxone for UTI day 6 an doxycycline started on 01/06/2025. She has no clinical evidence of pneumonia. will check procalcitonin. Continue Lasix 40 p.o. b.i.d.. walked 120 ft and rested once, required 4 L to maintain saturations 89-90% 01/07/25: overall the patient tells me that her breathing is pretty good. She has a cough And states this is not the deep painful cough anymore with no phlegm or hemoptysis. She is afebrile. White blood cell count 15.1, creatinine 1.37, on 2 L nasal cannula saturations are 93%. Patient use a hospital noninvasive ventilation with the AVAPS mode and 32% FiO2 and tolerated this well. diurese 2.4 L yesterday cumulative she is positive 1.3 L since admission. Her weight today is 119 kilos. Wheezes unchanged. Plan: Patient is stable off of prednisone for 48 hours. She requests to continue levalbuterol and ipratropium q.4 hours. continue budesonide nebulizers. Continue montelukast, Tessalon Perles 200 t.i.d. , guaifenesin 1200 b.i.d., and Lasix 40 IV b.i.d. Discussed with Dr. Crawford. Will follow with you. (2) Chronic hypercapnic respiratory failure: Code(s): J96.12 - Chronic respiratory failure with hypercapnia Status: Acute Assessment and Plan: Last admission 12/02/2024 to 12/08/2024) patient presented with hypercarbic respiratory failure with ABG 7.33/65/103 and serum bicarb > 40. 12/28/2024: She again presents with shortness of breath, hypoxemic and hypercarbic respiratory failure. Current venous blood gas listed as room air 7.33/72/ 43. Patient has chronic hypercarbic respiratory failure from her COPD with a room air blood gas of 7.33/72/43 (venous) and a serum bicarbonate greater than 37. She would benefit from a noninvasive ventilation as this is her 2nd hospitalization in the last month for hypercarbic respiratory failure. noninvasive ventilation would prevent further hospitalizations and deterioration. Patient was placed on BiPAP With no rate and pressures 15/5 with 28% with blood gas of 7.37/64/69. Patient was then placed on BiPAP with no rate and pressure 20/5 and 32% with a blood gas of 7.38/64/74. [employer] on these settings demonstrated adequate oxygenation. Patient was then placed on BiPAP rate of 20 pressures 20/5 and she said she could not tolerate these settings as it was too much pressure, high leak and she could not sleep at night. I will initiate the process for a home noninvasive ventilator with the AVAPS mode through her [employer], oxygen DME is [employer] who we will use. The patient told me she had improved and could come off of the mask and she was placed on 3 L nasal cannula with saturations 91% 12/28/24: Currently the patient is on BiPAP rate of 18, pressures 14/8 with 40% FiO2. Patient told me these settings were uncomfortable for her and I changed them to noninvasive ventilation with the AVAPS mode rate of 14, tidal volume 500, EPAP 5, minimal inspiratory pressure 6, maximal inspiratory pressure 25, inspiratory time 1.0, rise of 1 which is the fastest and 40% FiO2. She said this was more comfortable. The patient told me she had improved and could come off of the mask and she was placed on 3 L nasal cannula with saturations 91%. Plan: noninvasive ventilation with the AVAPS mode p.r.n. during the day. I recommend she wear this tonight. After she has improved will repeat ABG during the day. 12/29/24: Patient attempted to wear the fullface mask with the AVAPS settings as above and she did wear the mask but she could not sleep. plan: Patient says she will try to wear the AVAPS again tonight. I told her if she can not sleep with the mask on that she needs to take the mask off so that she can try to sleep. 12/30/24: Patient wore the hospital noninvasive ventilator with the AVAPS mode and said that she slept well. Plan: Patient tells me she still requires breathing support at night. If the patient qualifies for ventilatory support with a home machine it will need to be BiPAP with no rate. Tonight will place the patient on BiPAP no rate, pressures 15/5 and 28% FiO2 with overnight oximetry and ABG in the morning. 12/31/24: Patient wore a hospital BiPAP with no rate pressures 15/5 with 28% with blood gas the next morning 7.37/64/69 and overnight oximetry with hypoxia. 01/02/2024: Patient wore the hospital BiPAP with no rate pressures 20/5 with 32% a blood gas of 7.38/64/74 and overnight oximetry with adequate saturations. 01/03/2024 Patient wore the hospital BiPAP with a rate of 20 pressures 20/5 and 32% FiO2 and said that she could not sleep last night because the pressure was too high and the machine had a loud leak and kept her up. Plan: I will place the patient on noninvasive ventilation with the AVAPS mode rate of 14, tidal volume 500, EPAP 5, minimum inspiratory pressure 6, maximum inspiratory pressure 25, inspiratory time 1.0, rise of 1 and 32% FiO2. I will obtain an overnight oximetry and ABG on these settings. I will initiate home noninvasive ventilation through [facility] and her insurance [facility]. Later in the day filled out a home noninvasive ventilator form for [facility] through [facility] insurance for IVAPS with AE: Rate 14, tidal volume 500, minimum EPAP 5, maximum EPAP 15, minimum pressure support 6, maximum pressure support 25, 3 L bleed in. 01/03/25: Patient wore the hospital machine BiPAP rate of 20, pressures 20/5, inspiratory time 1, rise of 3 and 32% FiO2. She said she had a difficult time sleeping in the mask did not fit with a large leak. Overnight oximetry on these settings with recording duration of 7 hours and 40 minutes, average saturation 94%. Low saturation 63%. Time with saturation less than or equal to 88% 6 minutes, oxygen desaturation index 5.1. ABG 7.36/55/78. Plan: Waiting to hear back from his DME [employer] regarding a home machine. tonight AVAPS mode rate of 14, tidal volume 500, EPAP 5, minimum inspiratory pressure 6, maximum inspiratory pressure 25, inspiratory time 1.0, rise of 1 and 32% FiO2. I will obtain an overnight oximetry and ABG on these settings. 01/04/25: Patient could not tolerate the BiPAP but does tolerate noninvasive ventilation with the AVAPS mode. She used the hospital noninvasive ventilator with the AVAPS mode rate of 14, tidal volume 500, EPAP 5, minimal inspiratory pressure 6, maximal inspiratory pressure 25, I-time 1.0, rise of 1 and 32% FiO2. Patient said she slept well and could tolerate this machine. There was no leak. Patient had an overnight oximetry on these settings with recording duration of 6 hours and 56 minutes, average saturation 95%, low saturation 89%, time with saturation less than or equal to 88% was 0 minutes, oxygen desaturation index 2.1. ABG prior to removal was 7.35/53/85. Plan: Current noninvasive ventilation with the AVAPS mode provide adequate ventilation and oxygenation. Waiting to hear from [facility] regarding home noninvasive ventilation approval. 01/05/25: patient tells me she wore the hospital noninvasive ventilation with the AVAPS mode last night and slept well. Plan: Patient has been denied a noninvasive ventilator by [facility], her insurance company. This has been of relate to us verbally and we are waiting for the formal denial. Once this is in place will obtain a phone number for a peer to peer review. While she is in the hospital continue hospital noninvasive ventilator with 32% FiO2. 01/06/2025: Patient wore the hospital noninvasive ventilator with the AVAPS mode fullface mask and said she slept well and tolerated this. Plan: Patient's request for noninvasive ventilation was denied by [facility]. They requested a peer to peer. I spent the last 50 minutes trying to complete appear to peer process through the see phone number with the Case record for the peer to peer review that I was given and was told this is the incorrect information. Peer to peer review was unsuccessful. Will contact [facility] again to try to get correct information. attempted to perform peer to peer review for 50 minutes on the phone with various [facility] representatives without success. I talked to our clinical psychologist private practice will also try to coordinate this. 01/07/25: Need to perform peer to peer review with [facility] representatives prior to discharge. Subjective Date/time seen: 01/07/25 10:05 Interval history: 12/28/2024: This is a new pulmonary consult for COPD exacerbation. 64-year-old with a history of AFib off anticoagulation for 2 years secondary to abdominal rectal sheath hematoma, diastolic dysfunction, GERD, HTN, restless legs syndrome, anxiety and COPD with chronic hypoxemic respiratory failure on 5 L at Night and 2 L with rest and activity per home O2 assessment on 12/08/2024. I previously saw the patient as an inpatient on 12/02/2024 when she was admitted for COPD exacerbation. Regarding her COPD, 50 pack year tobacco use, quit 08/23/2022, alpha 1 anti trypsin genotype MZ, alpha 1 anti trypsin level 134, normal. The patient has been on oxygen for the last 5 years. I have no PFTs. She is using 5 L at rest with home saturations 92-96%. First CT scan in our system is from 08/27/2022 shows mild apical predominant centrilobular emphysema. Repeat CT angiogram of the chest on 12/02/2024 demonstrates mild apical predominant centrilobular emphysema. Patient is maintained on trelegy inhaler but she does not use a because of the taste. Patient takes Trelegy 100, montelukast 10 and albuterol p.r.n.. Patient tells me she wheezes every day when she takes rescue albuterol at home it relieves her wheezing for 1-2 minutes. 12/01/2024: White blood cell count 14.8, eosinophils 0.6%= 89 per micro L. 12/02/2024 through 12/08/2024:? Presented to the emergency room with COPD exacerbation, hypercarbic and hypoxemic respiratory failure, AFib with RVR, and fluid overload.? Treated with BiPAP, steroids, bronchodilators, antibiotics, and diuretics.? CTA of the chest with no PE, mild apical predominant centrilobular emphysema, ?upper and lower extremity Dopplers negative for DVT.? Echocardiogram with LVEF 60-65%, RV was dilated with normal systolic function.? Left atrium normal, right atrium normal, RVSP 27. ?After she improved clinically on 12/06/2024: ABG on 5 L nasal cannula pH 7.39/48/97. ?Patient improved and was discharged on 12/08/24 on trelegy 100, rescue albuterol, montelukast 10, guaifenesin 600 b.i.d. p.r.n. congestion, no Lasix, amiodarone 200 b.i.d., metoprolol 100 q.12, she had completed 5 days of steroids in house and I did not recommend a discharge taper, however, the hospitalist discharge her on a 15 day prednisone taper. Required 2 L oxygen at rest and with activity per home O2 assessment and per overnight oximetry required 5 L NC when she naps or sleeps. ?12/08/24: creatinine 1.68. Her weight is 120.8 kg.? 12/28/2024: Presented to the emergency room with shortness of breath. blood pressure 136/117, heart rate 76, nasal cannula saturation 93%. Patient had wheezing throughout all lung paul. White blood cell count 13.4 with eosinophils 1.8%=241/ul. creatinine 1.34, serum bicarbonate 37, BNP 563. Venous blood gas listed as room air 7.33/72/ 43. patient placed on BiPAP, treated with bronchodilators, received IV steroids per EMS, lasix 40 IV. 12/28/24: Currently the patient is on BiPAP rate of 18, pressures 14/8 with 40% FiO2. Patient told me these settings were uncomfortable for her and I changed them to noninvasive ventilation with the AVAPS mode rate of 14, tidal volume 500, EPAP 5, minimal inspiratory pressure 6, maximal inspiratory pressure 25, inspiratory time 1.0, rise of 1 which is the fastest and 40% FiO2. She said this was more comfortable. The patient told me she had improved and could come off of the mask and she was placed on 3 L nasal cannula with saturations 91% The patient tells me that the day after she left the hospital she started getting worse with fatigue and then worsening oxygenation about 5 days ago. On her prescribed 2 L her saturations were in the 80s and then as low as 79%. She denied fever, chills, rigors. She had a dry cough with no phlegm and no hemoptysis. Currently says she is improved and breathing 50% back to her normal but she feels still feels tired and short of breath. Later in the day patient had a CT scan of the chest with moderate apical predominant centrilobular emphysema and bibasilar atelectasis with no evidence of pneumonia. 12/29/2024: Patient states she had a bad night and his breathing worse today. Her cough is increased with no phlegm and no blood. She is afebrile. White blood cell count 15.2, creatinine 1.61. Currently patient is on 4 L nasal cannula saturations 94%. Patient tempted to wear the fullface mask with the AVAPS settings as above and she did wear the mask but she could not sleep. Patient received a Xopenex treatment and had a heart rate 160 that decreased on its own and required no medical intervention. 12/30/24: Patient tells me she is having a better day today. She says that her breathing is 75% back to her normal. Her cough is improved but increased from baseline. She has no phlegm and no hemoptysis. She is afebrile. Her weight today is 112.7 kg. Patient wore the hospital noninvasive ventilator with the AVAPS mode and said that she slept well. 12/31/24: Patient wore a hospital BiPAP with no rate pressures 15/5 with 28% with blood gas the next morning 7.37/64/69 and overnight oximetry with hypoxia. 01/02/2024: Patient wore the hospital BiPAP with no rate pressures 20/5 with 32% a blood gas of 7.38/64/74 and overnight oximetry with adequate saturations. 01/03/2024 patient states that she is breathing 75% back to her normal. Her dyspnea on exertion is back at her normal. His cough is persistent but improved. She is afebrile. White blood cell count 14.1, creatinine 1.46. Her weight is 114. Patient wore the hospital BiPAP with a rate of 20 pressures 20/5 and 32% FiO2 and said that she could not sleep last night because the pressure was too high and the machine had a loud leak and kept her up. Later in the day filled out a home noninvasive ventilator form for [facility] through [facility] insurance for IVAPS with AE: Rate 14, tidal volume 500, minimum EPAP 5, maximum EPAP 15, minimum pressure support 6, maximum pressure support 25, 3 L bleed in. 01/04/2024: Patient tells me she is breathing worse today. She says her cough is more persistent and heavier, remains dry with no phlegm. Her breathing is worse. She is able to walk with physical therapy yesterday and did well. White blood cell count 15.7, creatinine 1.42. Respiratory pathogen panel is negative. Patient wore the hospital machine BiPAP rate of 20, pressures 20/5, inspiratory time 1, rise of 3 and 32% FiO2. She said she had a difficult time sleeping in the mask did not fit with a large leak. She cannot sleep with this machine. Overnight oximetry on these settings with recording duration of 7 hours and 40 minutes, average saturation 94%. Low saturation 63%. Time with saturation less than or equal to 88% 6 minutes, oxygen desaturation index 5.1. ABG 7.36/55/78. Levalbuterol and Tessalon Perles added. 01/05/2024: Patient tells me she is breathing better today. Her cough persists but is better. Her shortness of breath and wheezing persists. She is afebrile. her weight today is 117.4 kg, yesterday she was 1.4 L positive on Lasix 20 p.o. b.i.d.. She used the hospital noninvasive ventilator with the AVAPS mode rate of 14, tidal volume 500, EPAP 5, minimal inspiratory pressure 6, maximal inspiratory pressure 25, I-time 1.0, rise of 1 and 32% FiO2. Patient said she slept well and could tolerate this machine. There was no leak. Patient had an overnight oximetry on these settings with recording duration of 6 hours and 56 minutes, average saturation 95%, low saturation 89%, time with saturation less than or equal to 88% was 0 minutes, oxygen desaturation index 2.1. ABG prior to removal was 7.35/53/85. Metoprolol and amiodarone held. walked 116 ft. 01/05/25: Overall the patient states that her breathing remains compromised but about the same as yesterday. Her cough has improved and she has no phlegm. Her dyspnea on exertion is the same. Currently she is on 3 L nasal cannula saturations 95%. I decreased her to 2 L. Her white blood cell count is 16.1, creatinine is 1.46. She is positive 3 L yesterday and 4.1 L since admission. Her weight is 117.2 kg her BNP is 614 which is improved from 859 on 01/02/2025. patient tells me she wore the hospital noninvasive ventilation with the AVAPS mode last night and slept well. Lasix 20 p.o. b.i.d. increased to Lasix 40 p.o. b.i.d. Last dose of prednisone 40 given. Later in the day patient had a CT scan of the chest with mild apical predominant centrilobular emphysema, small area of atelectasis versus infiltrate posterior segment right upper lobe. There is no pleural disease, interstitial lung disease, masses, or nodules. 01/06/25: patient tells me she is breathing a little bit better today. She is able to take deeper breaths. Her dry cough persists. She has no phlegm or hemoptysis. She is afebrile. White blood cell count 18.4, creatinine 1.42. Patient is on 2 L nasal cannula saturations 94%. I turned her to room air and after 4 minutes her saturations decreased to 88% and I turned her back to 1 L and her saturations were 92%. Yesterday she diuresed 2.4 L and cumulative she is positive 1.3 L since admission. Her weight today is 119 kg. Ventilator declined by insurance, attempted peer to peer for 50 minutes and was unable to schedule. walked 120 ft and rested once, required 4 L to maintain saturations 89-90% 01/07/25: overall the patient tells me that her breathing is pretty good. She has a cough And states this is not the deep painful cough anymore with no phlegm or hemoptysis. She is afebrile. White blood cell count 15.1, creatinine 1.37, on 2 L nasal cannula saturations are 93%. Patient use a hospital noninvasive ventilation with the AVAPS mode and 32% FiO2 and tolerated this well. diurese 2.4 L yesterday cumulative she is positive 1.3 L since admission. Her weight today is 119 kilos. Wheezes unchanged. DATA: 01/05/25: EXAMINATION: CT diagnostic chest wo con INDICATION: RIGGINS, wheezing COMPARISON: 12/28/2024 FINDINGS: Mild emphysema. Small region with increased reticulonodular pattern at the posterior segment of the right upper lobe consistent with progression of pneumonia. Linear and bandlike atelectasis in the bilateral lower lobes and in the lingula. No pulmonary edema or pleural effusion. Heart size is normal. Atherosclerotic coronary artery calcium location and aortic valve calcification. Thoracic aorta normal in caliber. No pathologically enlarged thoracic lymphadenopathy. Again seen is a 3.5 cm mass extending posteriorly from the left thyroid lobe. Cholecystectomy clips at the gallbladder fossa. Moderate thoracic spondylosis. IMPRESSION: 1. Mild emphysema with right upper lobe pneumonia. 2. 3.5 cm left thyroid mass. 01/03/25: MODIFIED ESOPHAGRAM HISTORY: Coughing when swallowing TECHNIQUE: Modified barium esophagram was performed on 01/03/2025. I administered fluoroscopy and performed the exam with speech pathologist. Patient was seated for lateral fluoroscopic imaging for ingestion of thin liquids, pudding, solids and quantified amounts, followed by thin liquids in uncontrolled amounts. This was recorded on tape. A single fluoroscopic spot image was also recorded. The DAP for this procedure was 2.267 Gycm2. The amount of fluoroscopy time used during this procedure was 2.0 minutes. FINDINGS: Oral stage: Adequate function. Pharyngeal stage: Adequate function. Cervical/esophageal stage: Adequate function. IMPRESSION: Patient tolerated regular consistency oral feedings in the upright position. Please correlate with speech pathologist findings and specific feeding recommendations. 12/28/24: CT chest CLINICAL INDICATION: Pneumonia suspected clinically COMPARISON: Reference is made to plain film evaluation of the chest, performed approximately 12 hours earlier and dating back to 12/05/2024. Reference is also made to a CT angiogram of the chest dated 10/20/2022 FINDINGS/OBSERVATIONS: Lung: bibasilar atelectasis, unchanged from chest radiograph. The remainder the lungs are clear. HEART: The heart is borderline enlarged, without pericardial effusion. MEDIASTINUM: Redemonstration of a large left thyroid nodule, increased in size from 2022 examination. No pathologically enlarged or morphologically suspicious lymph nodes are identified within the mediastinum, bilateral axilla, within the soft tissues of the anterior chest wall. SOFT TISSUES OF THE CHEST: Unremarkable. BONES OF THE CHEST: No acute fracture. No lytic or blastic lesions are identified. IMPRESSION: No cross-sectional imaging evidence to suggest the presence of pneumonia. Bibasilar atelectasis, unchanged from a recent radiograph, as detailed above.. 12/08/2024: Home O2 assessment: Rest room air saturation 87%. Rest nasal cannula 1 L saturation 88%. Rest nasal cannula saturation 93%. Exercise nasal cannula 2 L saturation 94%. Patient requires 2 L with rest and with activity. 12/07/24: Patient had an overnight oximetry on 5 L nasal cannula with recording duration of 6 hours and 58 minutes. Average saturation 98%. Low saturation 95%. Time with saturation less than or equal to 88% was 0 minutes. Oxygen desaturation index 0. 12/06/2024: ABG on 5 L nasal cannula pH 7.39/48/97. ? 12/02/2024: Alpha 1 anti trypsin genotype ruthie LEWIS. 12/02/2024: Alpha 1 anti trypsin level 135, normal 83-199. 12/02/24: CTA chest PE protocol History: 64 years Female with . R/O PE . Findings: PULMONARY ARTERIES: No pulmonary embolus. VISUALIZED THORACIC INLET: Left thyroid nodule is noted. Ultrasound evaluation advised. MEDIASTINUM: Aorta/coronary arteries: Mild atheromatous disease. Heart/other: The heart is not enlarged. Lymph nodes: No mediastinal or hilar adenopathy. Precarinal lymph node measuring 1.6 cm noted. LUNGS: Atelectasis versus pneumonia seen in the right lung base inferiorly. Minimal atelectasis versus pneumonia in the left lung base is also noted. No pulmonary nodules or masses. No effusions. No pneumothorax. VISUALIZED UPPER abdomen: the visualized upper abdomen is normal. MUSCULOSKELETAL: Soft tissues: The superficial soft tissues are normal. Bones: Age appropriate degenerative changes of the spine. IMPRESSION: 1. No pulmonary embolism. 2. Bilateral basal atelectasis versus pneumonia. Clinical correlation advised. 12/02/2024: Echo Summary 1. The left ventricle is normal in size and systolic function. The left ventricular ejection fraction visually estimated to be 60-60%. 2. The right ventricle is dilated with normal systolic function. 3. There are no significant valvular abnormalities. 4. Technically difficult study. Left Ventricle The left ventricle is normal in size and systolic function. The left ventricular ejection fraction visually estimated to be 60-60%. Diastolic dysfunction is present. Right Ventricle The right ventricle is dilated with normal systolic function. Left Atria The left atrium is normal size. Right Atria The right atrium is normal size. RVSP 27 12/17/2023: CT Scan of the Chest without Contrast: Clinical Indication: Lung cancer screening, nicotine dependence COMPARISON: 04/06/2023 Findings: Stable enlarged left thyroid lobe. There is no evidence of any significant mediastinal, hilar or axillary lymphadenopathy. Atherosclerotic calcifications of the aorta are present. There is no evidence of pleural or pericardial effusion. There is irregular airspace opacity in the posterior right lower lobe, improved from prior exam, likely representing postinflammatory change, as there is a previous more extensive area of consolidation in this location. Mild emphysema. Images through the upper abdomen reveal no abnormalities. Impression: Lung RADS 2: Benign appearance. 12 month follow-up screening CT advised. 09/10/2022: Echo Summary 1. Technically difficult study with limited views. Regional wall motion assessment limited due to poor endomyocardial border definition despite definity contrast enhancement. 2. Left ventricular chamber dimension is normal. 3. Left ventricular systolic function is normal, estimated at 65-70%. 4. There is mildly increased left ventricular wall thickness. 5. Right ventricular chamber dimension is normal. 6. Right ventricular systolic function is moderately reduced. TAPSE 1.3. 7. There is trace tricuspid valve regurgitation. 8. Mild pulmonary hypertension, estimated pulmonary arterial systolic pressure is 37 mmHg. 9. Normal inferior vena cava with <50% collapse upon inspiration consistent with elevated right atrial pressure, 10 mmHg. 08/28/2022: Summary 1. Left ventricular chamber dimension is normal. 2. Left ventricular systolic function is normal, estimated at 60-65%. 3. The left ventricular diastolic function is grade I diastolic dysfunction. 4. Right ventricular chamber dimension is moderately enlarged. 5. Right ventricular systolic function is normal. 6. There is moderate tricuspid valve regurgitation, which may be underestimated due to the eccentricity of the jet. 7. Dilated inferior vena cava with no collapse upon inspiration consistent with elevated right atrial pressure, 15 mmHg. 8. Pulmonary hypertension with an estimated PASP of 59mmHg. Right Ventricle Right ventricular chamber dimension is moderately enlarged. Right ventricular systolic function is normal. Right Atria Right atrial chamber dimension is normal. Atrial Septum Intact interatrial septum visualized by color flow imaging. 08/27/2022: EXAMINATION: CT chest high resolution wo co DATE: 08/27/2022 16:07 INDICATION: respiratory failure TECHNIQUE: Computed tomography (CT) of the chest was performed without intravenous contrast. Automated exposure control and iterative reconstruction technique were employed. The dose-length product was 818.52 mGy-cm. COMPARISON: X-ray chest 08/27/2022 and CTA chest 07/21/2018. FINDINGS: CHEST: Endotracheal tube terminating 2.5 cm above the maria esther. Thoracic aorta: No significant dilation. Moderate arch calcification. Lung parenchyma and airways: Diffuse tree-in-bud opacities most evident in the right lung. Scattered centrilobular nodular opacities measuring up to 11 mm in the right upper lobe. Mild interlobular septal thickening. Bibasilar dependent opacities likely representing atelectasis. Mild emphysematous change. Thoracic inlet, axillae and chest wall: No thyroid or soft tissue mass. No axillary lymphadenopathy. Mediastinum: Mediastinal lymphadenopathy. Dilated central pulmonary arteries as can be seen with pulmonary arterial hypertension. Heart and pericardium: Normal heart size. Aortic valve calcification. No pericardial effusion. Coronary artery calcifications: Mild. Pleura: Trace bilateral pleural fluid. Upper abdomen: No significant finding. Thoracic bones: No acute osseous finding in the chest. IMPRESSION: 1. Tree-in-bud opacities as can be seen with atypical infection (including but not limited to: MAC, TB, fungal), ABPA, airways disease, and less likely aspiration. 2. Nodular opacity in right upper lobe should be followed after the appropriate therapy and cessation of symptoms to ensure resolution. 3. Mediastinal lymphadenopathy. 4. Trace bilateral pleural effusions. 5. Mild interstitial edema. Review of Systems Constitutional: Constitutional: Reports no additional constitutional complaints Eyes: Eyes: Reports no additional eye complaints ENT: Reports system reviewed and no additional complaints, except as documented Cardiovascular: Cardiovascular: Reports no additional cardiovascular complaints Respiratory: Respiratory: Reports no additional respiratory complaints Gastrointestinal: Gastrointestinal: Reports no additional gastrointestinal complaints Musculoskeletal: Musculoskeletal: Reports no additional musculoskeletal complaints Neurologic: Reports system reviewed and no additional complaints, except as documented Psychiatric: Psychiatric: Reports no additional psychiatric complaints Endocrine: Endocrine: Reports no additional endocrine complaints Hematologic/Lymphatic: Hematologic/Lymphatic: Reports no additional hematologic/lymphatic complaints Allergic/Immunologic: Allergic/Immunologic: Reports no additional allergic/immunologic complaints Exam Const: General: cooperative, healthy appearing and comfortable Orientation/consciousness: oriented to person, oriented to place and oriented to time HENMT: Head: normal to inspection Ears: hearing grossly normal bilaterally Eyes: General: appearance normal, both eyes and all related structures Neck: Neck: normal visual inspection Chest: Chest palpation & inspection: normal inspection of the chest Resp: Effort & Inspection: normal respiratory effort and able to speak in complete sentences Auscultation: no crackles, no rales, no rhonchi, no wheezes and diminished lung sounds Other: wheezes Cardio: Jugular venous distension: no JVD GI: Inspection: normal to inspection Skin: General skin exam: normal color Neuro: General: oriented to person, oriented to place and oriented to time Extrem: General: edema Other: Psych: Appearance: grossly normal Objective Data Vital Signs Vital Signs: Vital Signs - 24 hr 01/06/25 12:00 01/06/25 14:00 01/06/25 14:33 Temperature Pulse Rate 83 96 127 H Respiratory Rate 28 H Blood Pressure 120/49 L Pulse Oximetry 94 Oxygen Delivery Oxygen Flow Rate Fraction of Inspired Oxygen 01/06/25 14:41 01/06/25 16:00 01/06/25 20:00 Temperature Pulse Rate 105 H 102 H 95 Respiratory Rate 22 H Blood Pressure Pulse Oximetry Oxygen Delivery Oxygen Flow Rate Fraction of Inspired Oxygen 01/06/25 20:54 01/06/25 21:03 01/06/25 21:10 Temperature Pulse Rate 105 H 105 H Respiratory Rate 20 Blood Pressure Pulse Oximetry 90 95 Oxygen Delivery Nasal Cannula Nasal Cannula Oxygen Flow Rate 1 2 Fraction of Inspired Oxygen 32 01/06/25 21:26 01/06/25 21:36 01/06/25 22:22 Temperature 36.4 C Pulse Rate 99 105 H 106 H Respiratory Rate 20 20 19 Blood Pressure 109/44 L Pulse Oximetry 90 94 Oxygen Delivery BiPAP Oxygen Flow Rate Fraction of Inspired Oxygen 01/07/25 00:00 01/07/25 00:10 01/07/25 00:10 Temperature Pulse Rate 89 88 88 Respiratory Rate 16 16 Blood Pressure Pulse Oximetry 95 Oxygen Delivery BiPAP Oxygen Flow Rate Fraction of Inspired Oxygen 01/07/25 00:18 01/07/25 03:31 01/07/25 04:00 Temperature 36.5 C Pulse Rate 87 96 91 Respiratory Rate 18 20 Blood Pressure 114/44 L Pulse Oximetry 94 Oxygen Delivery Oxygen Flow Rate Fraction of Inspired Oxygen 01/07/25 04:04 01/07/25 04:05 01/07/25 04:12 Temperature Pulse Rate 103 H 103 H 96 Respiratory Rate 18 18 17 Blood Pressure Pulse Oximetry 91 Oxygen Delivery BiPAP Oxygen Flow Rate Fraction of Inspired Oxygen 01/07/25 07:36 01/07/25 07:36 01/07/25 07:49 Temperature Pulse Rate 97 108 H Respiratory Rate 20 20 Blood Pressure Pulse Oximetry 93 Oxygen Delivery Nasal Cannula Oxygen Flow Rate 2 Fraction of Inspired Oxygen 28 Intake/Output Intake/Output: Intake & Output 01/04/25 01/05/25 01/06/25 01/07/25 23:59 23:59 23:59 23:59 Intake Total 5140 3920 4510 390 Output Total 1999 6400 5831 1500 Balance 3140 -2480 -1340 -1110 Meds/Results Medications: Active Medications Generic Name Dose Route Start Last Admin Trade Name Freq PRN Reason Stop Dose Admin Hydrocodone Bitart/Acetaminophen 1 tab 12/31/24 09:42 12/31/24 10:10 Hydrocodone/Acetaminophen (*Crx) 5-325 Mg Tablet PO 1 tab Q4H PRN Administration Pain Rated 4-6 Amitriptyline HCl 10 mg 12/28/24 21:00 01/06/25 21:03 Amitriptyline Hcl 10 Mg Tablet PO 10 mg HS YODIT Administration Benzonatate 200 mg 01/03/25 09:00 01/07/25 09:27 Benzonatate 100 Mg Capsule PO 200 mg TID YODIT Administration Budesonide 0.5 mg 01/06/25 08:00 01/07/25 07:32 Budesonide Respule Neb 0.5 Mg/2 Ml Amp INHALATION 0.5 mg Q12HRT YODIT Administration Duloxetine HCl 40 mg 12/28/24 17:00 01/07/25 09:26 Duloxetine Hcl 20 Mg Capsule.Dr PO 40 mg BID YODIT Administration Enoxaparin Sodium 40 mg 01/07/25 09:00 01/07/25 09:29 Enoxaparin 40 Mg/0.4 Ml Syringe SUB-Q 40 mg DAILY YODIT Administration Escitalopram Oxalate 20 mg 12/28/24 15:30 01/07/25 09:27 Escitalopram Oxalate 10 Mg Tablet PO 20 mg DAILY YODIT Administration Ferrous Sulfate 325 mg 12/28/24 17:00 01/07/25 09:27 Ferrous Sulfate [address] BY MOUTH 325 mg BID YODIT Administration Furosemide 40 mg 01/05/25 17:00 01/07/25 09:27 Furosemide 40 Mg Tablet PO 40 mg BID YODIT Administration Guaifenesin 1,200 mg 12/28/24 21:00 01/07/25 09:26 Guaifenesin 12 Hr 600 Mg Tabcr PO 1,200 mg Q12HR YODIT Administration Ceftriaxone Sodium 1 gm in 50 mls @ 100 mls/hr 01/01/25 09:40 01/06/25 10:05 Rocephin 1 Gm/Ns 50 Ml IVPB Infused QAM YODIT Infusion Doxycycline Hyclate 100 mg in 100 mls @ 100 mls/hr 01/06/25 08:00 01/07/25 09:29 Vibramycin 100 Mg/Ns 100 Ml IVPB 100 mls/hr Q12H YODIT Administration Ipratropium Tanner 0.5 mg 12/29/24 12:00 01/07/25 07:32 Ipratropium Br 0.02% Inh Soln 0.5 Mg/2.5 Ml Vial INHALATION 0.5 mg Q4HRT YODIT Administration Levalbuterol HCl 0.63 mg 01/03/25 12:00 01/07/25 07:32 Levalbuterol Neb 1.25 Mg/3 Ml INHALATION 0.63 mg Q4HRT YODIT Administration Lidocaine 1 patch 12/31/24 11:55 01/07/25 09:29 Lidocaine 5% Patch TRANSDERM Not Given DAILY OYDIT Magnesium Hydroxide 30 ml 12/28/24 14:40 Magnesium Hydroxide Susp 30 Ml Udc PO HS PRN Constipation Melatonin 5 mg 12/28/24 14:40 01/06/25 21:04 Melatonin 5 Mg Tablet PO 5 mg HS PRN Administration Insomnia Montelukast Sodium 10 mg 12/29/24 09:00 01/07/25 09:27 Montelukast Sodium 10 Mg Tablet PO 10 mg DAILY YODIT Administration Pantoprazole Sodium 40 mg 12/28/24 21:00 01/07/25 09:26 Pantoprazole 40 Mg Tablet PO 40 mg Q12HR YODIT Administration Quetiapine Fumarate 25 mg 12/28/24 21:00 01/06/25 21:04 Quetiapine Fumarate 25 Mg Tablet PO 25 mg HS YODIT Administration Ropinirole HCl 4 mg 12/28/24 21:00 01/06/25 21:03 Ropinirole Hcl 1 Mg Tablet PO 4 mg HS YODIT Administration Topiramate 200 mg 12/28/24 21:00 01/07/25 09:27 Topiramate 100 Mg Tablet PO 200 mg Q12HR YODIT Administration Trazodone HCl 50 mg 12/28/24 21:00 01/06/25 21:04 Trazodone Hcl 50 Mg Tablet PO 50 mg HS YODIT Administration Trazodone HCl 150 mg 01/03/25 13:16 01/06/25 21:04 Trazodone Hcl 50 Mg Tablet PO 150 mg HS PRN Administration Insomnia Radiology Results: ITS Impressions Chest X-Ray 01/02/25 09:39 IMPRESSION: 1. Increasing opacities in the right mid and bilateral lower lung zones which could represent worsening atelectasis or pneumonia. Modified Barium Swallow 01/03/25 15:10 IMPRESSION: Patient tolerated regular consistency oral feedings in the upright position. Please correlate with speech pathologist findings and specific feeding recommendations. Chest CT 01/05/25 17:10 IMPRESSION: 1. Mild emphysema with right upper lobe pneumonia. 2. 3.5 cm left thyroid mass. Labs Labs: Laboratory Results - last 24 hr 01/05/25 01/06/25 01/07/25 04:14 04:35 04:15 WBC 15.1 H RBC 4.06 L Hgb 10.5 L Hct 37.4 MCV 92.1 MCH 25.9 L MCHC 28.1 L RDW 15.0 H Plt Count 330 MPV 9.1 Immature Gran % (Auto) 9.4 H Neut % (Auto) 59.7 Lymph % (Auto) 21.4 [place] % (Auto) 6.9 Eos % (Auto) 1.9 Baso % (Auto) 0.7 Lymph # (Auto) 3.23 H [place] # (Auto) 1.0 H Eos # (Auto) 0.3 Baso # (Auto) 0.1 Abs Immat Gran (auto) 1.42 H Absolute Neuts (auto) 9.0 H Absolute Nucleated RBC 0.000 Nucleated RBC % 0.0 Sodium 140 Potassium 3.6 Chloride 99 Carbon Dioxide 36 H Anion Gap 5 BUN 23 H Creatinine 1.37 H Estim Creat Clear Calc 47 Estimated GFR 39 L Glucose 130 H Calcium 8.9 Procalcitonin 0.1 VIRIDIANA Scrn Qualitative Negative
[2025-01-07] MEDS: AMITRIPTYLINE HCL 10 MG TABLET PO (20:39)
[2025-01-07] MEDS: QUEtiapine FUMARATE 25 MG TABLET PO (20:40)
[2025-01-07] MEDS: rOPINIRole HCL 1 MG TABLET 4 MG PO (20:41)
[2025-01-07] MEDS: traZODone HCL 50 MG TABLET PO (20:42)
[2025-01-07] MEDS: MELATONIN 5 MG TABLET PO (20:44)
[2025-01-08] VITALS (20 sets, daily range): BP systolic 111–166; BP diastolic 59–78; PULSE 79–114; RESP 17–20; TEMP 36.3–36.6; O2SAT 90–96
[2025-01-08] MEDS: LEVALBUTEROL NEB 1.25 MG/3 ML 0.63 MG INHALATION ×5 (00:31→20:12)
[2025-01-08] MEDS: IPRATROPIUM BR 0.02% INH SOLN 0.5 MG/2.5 ML VIAL INHALATION ×5 (00:31→20:15)
[2025-01-08 05:02] LABS: Basophils Absolute Auto 0.1 K/mm3 (0.0-0.1); Basophils Percent Auto 0.5 % (0.2-1.2); Eosinophils Absolute Auto 0.3 K/mm3 (0-0.3); Eosinophils Percent Auto 1.5 % (0-4.4); Hematocrit 37.2 % (37.0-47.0); Hemoglobin 10.5 g/dL (12.0-15.0); Immature Granulocyte Absolute 1.07 K/mm3 (0.00-0.031); Immature Granulocyte Percent A 6.5 % (0-0.5); Lymphocytes Absolute Auto 3.19 K/mm3 (0.9-3.2); Lymphocytes Percent Auto 19.3 % (18.3-44.2); Mean Corpuscular HGB Conc 28.2 g/dl (32-36); Mean Corpuscular Hemoglobin 26.1 pg (26-34); Mean Corpuscular Volume 92.5 fl (80-100); Mean Platelet Volume 9.4 fl (7.4-10.4); Monocytes Absolute Auto 1.1 K/mm3 (0.1-0.6); Monocytes Percent Auto 6.7 % (2.6-8.5); Neutrophils Absolute Auto 10.8 K/mm3 (1.3-6.7); Neutrophils Percent Auto 65.5 % (45.5-73.1); Platelet Count Result 348 k/mm3 (150-375); Red Blood Count 4.02 M/mm3 (4.2-5.4); Red Cell Distribution Width 15.2 % (11.5-14.5); White Blood Count 16.5 K/mm3 (4.5-10.0)
[2025-01-08 05:21] LABS: Anion Gap 6 mmol/L (4-12); Blood Urea Nitrogen 23 mg/dL (7-17); Calcium 9.1 mg/dL (8.4-10.2); Carbon Dioxide 36 mmol/L (22-30); Chloride 99 mmol/L (98-107); Estimated CRCL calculation 47 ml/min; Estimated Glomerular Filt Rate 38; Glucose 129 mg/dL (65-110); Potassium 4.1 mmol/L (3.4-5.0); Sodium 141 mmol/L (137-145)
[2025-01-08] MEDS: BUDESONIDE RESPULE NEB 0.5 MG/2 ML AMP INHALATION ×2 (07:55→20:11)
[2025-01-08] MEDS: TOPIRAMATE 100 MG TABLET 200 MG PO ×2 (09:08→20:03)
[2025-01-08] MEDS: BENZONATATE 100 MG CAPSULE 200 MG PO ×3 (09:09→17:45)
[2025-01-08] MEDS: DULoxetine HCL 20 MG CAPSULE.DR 40 MG PO ×2 (09:09→17:46)
[2025-01-08] MEDS: MONTELUKAST SODIUM 10 MG TABLET PO (09:09)
[2025-01-08] MEDS: FERROUS SULFATE 325 MG TABLET DR BY MOUTH ×2 (09:09→17:45)
[2025-01-08] MEDS: PANTOPRAZOLE 40 MG TABLET PO ×2 (09:09→20:03)
[2025-01-08] MEDS: guaiFENesin 12 HR 600 MG TABCR 1200 MG PO ×2 (09:09→20:03)
[2025-01-08] MEDS: ESCITALOPRAM OXALATE 10 MG TABLET 20 MG PO (09:09)
[2025-01-08] MEDS: ENOXAPARIN 40 MG/0.4 ML SYRINGE SUB-Q (09:10)
[2025-01-08 09:11] LABS: NT Pro B Type Natriuretic Pept 271 pg/mL (19.9-100)
[2025-01-08] MEDS: FUROSEMIDE 40 MG TABLET PO ×2 (09:15→17:46)
--- NOTE | 2025-01-08 10:32 | P.PNIM_ITS ---
Progress Note: A&P Assessment and Plan (1) Acute exacerbation of chronic obstructive pulmonary disease: Code(s): J44.1 - Chronic obstructive pulmonary disease with (acute) exacerbation Status: Acute Assessment and Plan: Has been on oxygen for over 5 years. 50 pack year hx tobacco use, quit 08/23/2022. Home meds: Trelegy, montelukast 10, albuterol PRN Was intitially on Bipap, 5/10 abg worse on bipap 15/5,28%. will use 20/5, 32% tonight with repeat abg in am and apnea link overnight. --stopped solumedrol and started prednisone 40 mg po. Pulm continues to follow --Pulmonology following, appreciate recommendations: Could not tolerate bipap but tolerating noninvasive ventillation with AVAPs Pulmonology will do peer to peer for NIVV (2) Iron deficiency anemia: Code(s): D50.9 - Iron deficiency anemia, unspecified Status: Chronic Assessment and Plan: * Continue home meds once they are confirmed. * Monitor and trend CBC. (3) Atrial fibrillation: Code(s): I48.91 - Unspecified atrial fibrillation Status: Chronic Assessment and Plan: Held amiodarone 200mg daily, metoprolol 100mg BID due to Possible Amiodarone toxicity and COPD worsening with Metoprolol * Rate controlled, decreased metoprolol to 50mg BID yesterday, pulmonary holding amiodarone for concern for subacute amiodarone toxicity Cardiology following (4) Acute on chronic congestive heart failure: Code(s): I50.9 - Heart failure, unspecified Status: Chronic Assessment and Plan: * Chronic heart failure * Last ECHO showing normal LVSF w/EF of 60-65% on 12/02/24. * Daily weight * Accurate Intake and output * stable (5) Insomnia: Code(s): G47.00 - Insomnia, unspecified Status: Acute Assessment and Plan: insomnia- melatonin doesnot help much added trazadone 12/29- helped-will continue avoid atarax - 01/03 wants dose increase as did not help much last night -will increase to 150 mg and monitor (6) Hallucination: Code(s): R44.3 - Hallucinations, unspecified Status: Acute Assessment and Plan: Reports shadows/smoke in her vision intermittently, has noticed when she has a UTI in the past. Intermittent, but started about [address] no acute fidnings. 01/01 UA negative (7) Thyroid nodule: Code(s): E04.1 - Nontoxic single thyroid nodule Status: Acute Assessment and Plan: CT Chest showed a large left thyroid nodule, increased in size since 2022, 3.5cm mass --Check TSH --following with endocrinology outpatient for thyroid mass (8) Weakness: Code(s): R53.1 - Weakness Status: Acute Assessment and Plan: Patient reports cardiac arrest 3 years ago that required CPR. Subsequently had lower extremity weakness and noticed jerking movements to lower extremities. Cardiac arrest was in the setting of renal failure but records are not available. Reports gradually increased weakness and associated with myalgias. Differential includes deconditioning, autoimmune, paraneoplastic, steroid related --Check VIRIDIANA, TSH, CK, aldolase --PT/OT Plan DVT prophylaxis on Sq Lovenox Awaiting Pulmonology clearance for discharge Subjective Date/time seen: 01/08/25 10:32 Interval history: Comfortable at bedside Pulmonology will discussed with Insurance for approval of NIVV nighttime tomorrow possible discharge after than Review of Systems Review of Systems: All systems reviewed & are unremarkable except as noted in HPI and below Exam Narrative: General - Awake and alert. No acute distress Eyes - PERRLA, EOM intact ENT - No thrush, No erythema Neck - No noticeable or palpable swelling Lymph Nodes - No lymphadenopathy Cardiovascular - RRR no m/r/g, no JVD Lungs: Decreased, No wheezing, use of accessory muscles, no crackles Skin - Skin warm and dry, no wounds or rashes Abdomen - Normal bowel sounds, abdomen soft and nontender Extremities - No edema, cyanosis or clubbing Musculoskeletal - 2/5 strength lower extremities, normal range of motion, no swollen or erythematous joints. Neurological ? Alert and oriented x 3, CN 2-12 grossly intact. Psych: Normal mood and affect Const: General: comfortable Other: Obese, somnolent HENMT: Face/Nose/Sinus: Normal nares present Mouth: Yes dry mucous membranes Eyes: General: appearance normal, both eyes and all related structures Sclera: sclerae normal Pupils: Equal, round and reactive pupils present EOM: EOMs intact bilaterally Neck: Neck: supple and no JVD Lymphatic: lymphadenopathy not noted Chest: Other: not tender Resp: Effort & Inspection: abnormal respiratory effort (Increased effort) Auscultation: diminished lung sounds bilateral (Bases) Other: scattered wheezing Cardio: Rate: regular rate Rhythm: regular rhythm Heart sounds: no gallops, no murmurs and no rubs GI: Inspection: non-distended Auscultation: normal bowel sounds Skin: General skin exam: No normal color (pale), No lesion and No rashes Lesions: no lesions noted Rashes: no rashes noted Wounds: no wounds Neuro: Cranial nerves: Yes Equal, round and reactive pupils present Speech: normal speech Motor exam (neuro): Abnormal motor strength present (Generalized weakness) Extrem: General: edema Other: BLE edema. Not pitting Psych: Mental Status: mental status grossly normal Affect: normal affect Objective Data Vital Signs Vital Signs: Vital Signs - 24 hr 01/07/25 11:20 01/07/25 11:20 01/07/25 11:38 Temperature Pulse Rate 93 90 Respiratory Rate 20 20 Blood Pressure Pulse Oximetry 94 Oxygen Delivery Nasal Cannula Oxygen Flow Rate 2 Fraction of Inspired Oxygen 01/07/25 12:00 01/07/25 14:00 01/07/25 15:14 Temperature Pulse Rate 107 H 102 H Respiratory Rate Blood Pressure 129/48 L Pulse Oximetry 93 95 Oxygen Delivery Nasal Cannula Oxygen Flow Rate 2 Fraction of Inspired Oxygen 01/07/25 15:14 01/07/25 15:26 01/07/25 16:00 Temperature Pulse Rate 102 H 97 97 Respiratory Rate 20 20 Blood Pressure Pulse Oximetry Oxygen Delivery Oxygen Flow Rate Fraction of Inspired Oxygen 01/07/25 19:59 01/07/25 20:00 01/07/25 20:00 Temperature 97.3 F L Pulse Rate 101 H 103 H 103 H Respiratory Rate 12 18 Blood Pressure 136/53 L Pulse Oximetry 93 95 Oxygen Delivery Nasal Cannula Oxygen Flow Rate 2 Fraction of Inspired Oxygen 01/07/25 20:18 01/07/25 20:30 01/07/25 21:03 Temperature Pulse Rate 103 H 103 H Respiratory Rate 18 18 Blood Pressure Pulse Oximetry 95 Oxygen Delivery Nasal Cannula Oxygen Flow Rate 2 Fraction of Inspired Oxygen 01/07/25 22:15 01/08/25 00:00 01/08/25 00:30 Temperature Pulse Rate 103 H 96 103 H Respiratory Rate 18 18 Blood Pressure Pulse Oximetry 93 Oxygen Delivery BiPAP Oxygen Flow Rate Fraction of Inspired Oxygen 01/08/25 00:50 01/08/25 01:12 01/08/25 03:50 Temperature Pulse Rate 103 H 103 H 103 H Respiratory Rate 18 17 18 Blood Pressure Pulse Oximetry 93 Oxygen Delivery BiPAP Oxygen Flow Rate Fraction of Inspired Oxygen 01/08/25 04:00 01/08/25 04:10 01/08/25 04:34 Temperature Pulse Rate 98 103 H 103 H Respiratory Rate 18 18 Blood Pressure Pulse Oximetry Oxygen Delivery BiPAP Oxygen Flow Rate Fraction of Inspired Oxygen 01/08/25 05:38 01/08/25 07:59 01/08/25 07:59 Temperature 97.3 F L Pulse Rate 79 111 H 111 H Respiratory Rate 20 20 20 Blood Pressure 166/59 H Pulse Oximetry 96 93 Oxygen Delivery Nasal Cannula Oxygen Flow Rate 2 Fraction of Inspired Oxygen 01/08/25 08:23 Temperature Pulse Rate 114 H Respiratory Rate 20 Blood Pressure Pulse Oximetry Oxygen Delivery Oxygen Flow Rate Fraction of Inspired Oxygen Intake/Output Intake/Output: Intake & Output 01/05/25 01/06/25 01/07/25 01/08/25 23:59 23:59 23:59 23:59 Intake Total 3920 4510 4660 840 Output Total 6400 5850 5150 1200 Balance -2480 -1340 -490 -360 Meds/Results Medications: Active Medications Generic Name Dose Route Start Last Admin Trade Name Freq PRN Reason Stop Dose Admin Hydrocodone Bitart/Acetaminophen 1 tab 12/31/24 09:42 12/31/24 10:10 Hydrocodone/Acetaminophen (*Crx) 5-325 Mg Tablet PO 1 tab Q4H PRN Administration Pain Rated 4-6 Amitriptyline HCl 10 mg 12/28/24 21:00 01/07/25 20:39 Amitriptyline Hcl 10 Mg Tablet PO 10 mg HS YODIT Administration Benzonatate 200 mg 01/03/25 09:00 01/08/25 09:09 Benzonatate 100 Mg Capsule PO 200 mg TID YODIT Administration Budesonide 0.5 mg 01/06/25 08:00 01/08/25 07:55 Budesonide Respule Neb 0.5 Mg/2 Ml Amp INHALATION 0.5 mg Q12HRT YODIT Administration Duloxetine HCl 40 mg 12/28/24 17:00 01/08/25 09:09 Duloxetine Hcl 20 Mg Capsule.Dr PO 40 mg BID YODIT Administration Enoxaparin Sodium 40 mg 01/07/25 09:00 01/08/25 09:10 Enoxaparin 40 Mg/0.4 Ml Syringe SUB-Q 40 mg DAILY YODIT Administration Escitalopram Oxalate 20 mg 12/28/24 15:30 01/08/25 09:09 Escitalopram Oxalate 10 Mg Tablet PO 20 mg DAILY YODIT Administration Ferrous Sulfate 325 mg 12/28/24 17:00 01/08/25 09:09 Ferrous Sulfate [address] BY MOUTH 325 mg BID YODIT Administration Furosemide 40 mg 01/05/25 17:00 01/08/25 09:15 Furosemide 40 Mg Tablet PO 40 mg BID YODIT Administration Guaifenesin 1,200 mg 12/28/24 21:00 01/08/25 09:09 Guaifenesin 12 Hr 600 Mg Tabcr PO 1,200 mg Q12HR YODIT Administration Ceftriaxone Sodium 1 gm in 50 mls @ 100 mls/hr 01/01/25 09:40 01/08/25 09:07 Rocephin 1 Gm/Ns 50 Ml IVPB 100 mls/hr QAM YODIT Administration Doxycycline Hyclate 100 mg in 100 mls @ 100 mls/hr 01/06/25 08:00 01/07/25 21:39 Vibramycin 100 Mg/Ns 100 Ml IVPB Infused Q12H YODIT Infusion Ipratropium [place] 0.5 mg 12/29/24 12:00 01/08/25 07:54 Ipratropium Br 0.02% Inh Soln 0.5 Mg/2.5 Ml Vial INHALATION 0.5 mg Q4HRT YODIT Administration Levalbuterol HCl 0.63 mg 01/03/25 12:00 01/08/25 07:54 Levalbuterol Neb 1.25 Mg/3 Ml INHALATION 0.63 mg Q4HRT YODIT Administration Lidocaine 1 patch 12/31/24 11:55 01/08/25 09:11 Lidocaine 5% Patch TRANSDERM Not Given DAILY YODIT Magnesium Hydroxide 30 ml 12/28/24 14:40 Magnesium Hydroxide Susp 30 Ml Udc PO HS PRN Constipation Melatonin 5 mg 12/28/24 14:40 01/07/25 20:44 Melatonin 5 Mg Tablet PO 5 mg HS PRN Administration Insomnia Montelukast Sodium 10 mg 12/29/24 09:00 01/08/25 09:09 Montelukast Sodium 10 Mg Tablet PO 10 mg DAILY YODIT Administration Pantoprazole Sodium 40 mg 12/28/24 21:00 01/08/25 09:09 Pantoprazole 40 Mg Tablet PO 40 mg Q12HR YODIT Administration Quetiapine Fumarate 25 mg 12/28/24 21:00 01/07/25 20:40 Quetiapine Fumarate 25 Mg Tablet PO 25 mg HS YODIT Administration Ropinirole HCl 4 mg 12/28/24 21:00 01/07/25 20:41 Ropinirole Hcl 1 Mg Tablet PO 4 mg HS YODIT Administration Topiramate 200 mg 12/28/24 21:00 01/08/25 09:08 Topiramate 100 Mg Tablet PO 200 mg Q12HR YODIT Administration Trazodone HCl 50 mg 12/28/24 21:00 01/07/25 20:42 Trazodone Hcl 50 Mg Tablet PO 50 mg HS YODIT Administration Trazodone HCl 150 mg 01/03/25 13:16 01/06/25 21:04 Trazodone Hcl 50 Mg Tablet PO 150 mg HS PRN Administration Insomnia Radiology Results: ITS Impressions Chest X-Ray 01/02/25 09:39 IMPRESSION: 1. Increasing opacities in the right mid and bilateral lower lung zones which could represent worsening atelectasis or pneumonia. Modified Barium Swallow 01/03/25 15:10 IMPRESSION: Patient tolerated regular consistency oral feedings in the upright position. Please correlate with speech pathologist findings and specific feeding recommendations. Chest CT 01/05/25 17:10 IMPRESSION: 1. Mild emphysema with right upper lobe pneumonia. 2. 3.5 cm left thyroid mass. Labs Labs: Laboratory Results - last 24 hr 01/08/25 01/08/25 04:11 04:15 WBC 16.5 H RBC 4.02 L Hgb 10.5 L Hct 37.2 MCV 92.5 MCH 26.1 MCHC 28.2 L RDW 15.2 H Plt Count 348 MPV 9.4 Immature Gran % (Auto) 6.5 H Neut % (Auto) 65.5 Lymph % (Auto) 19.3 [place] % (Auto) 6.7 Eos % (Auto) 1.5 Baso % (Auto) 0.5 Lymph # (Auto) 3.19 [place] # (Auto) 1.1 H Eos # (Auto) 0.3 Baso # (Auto) 0.1 Abs Immat Gran (auto) 1.07 H Absolute Neuts (auto) 10.8 H Absolute Nucleated RBC 0.000 Nucleated RBC % 0.0 Sodium 141 Potassium 4.1 Chloride 99 Carbon Dioxide 36 H Anion Gap 6 BUN 23 H Creatinine 1.38 H Estim Creat Clear Calc 47 Estimated GFR 38 L Glucose 129 H Calcium 9.1 NT-Pro-B Natriuret Pep 271 H Quality VTE Prophylaxis VTE prophylaxis: mechanical ordered
[2025-01-08] MEDS: DOXYCYCLINE 100 MG/NS 100 ML 100 MG/100 ML BAG IVPB (10:40)
--- NOTE | 2025-01-08 11:04 | P.PNPL_ITS ---
Progress Note: A&P Assessment and Plan (1) Chronic obstructive pulmonary disease: Code(s): J44.9 - Chronic obstructive pulmonary disease, unspecified Status: Chronic Assessment and Plan: Regarding her COPD, 50 pack year tobacco use, quit 08/23/2022, alpha 1 anti trypsin genotype MZ, alpha 1 anti trypsin level 134, normal. The patient has been on oxygen for the last 5 years. I have no PFTs. She is using 5 L at rest with home saturations 92-96%. First CT scan in our system is from 08/27/2022 shows mild apical predominant centrilobular emphysema. Repeat CT angiogram of the chest on 12/02/2024 demonstrates mild apical predominant centrilobular emphysema. Patient is maintained on trelegy inhaler but she does not use a because of the taste. Patient takes Trelegy 100, montelukast 10 and albuterol p.r.n.. Patient tells me she wheezes every day when she takes rescue albuterol at home it relieves her wheezing for 1-2 minutes. 12/01/2024: White blood cell count 14.8, eosinophils 0.6%= 89 per micro L. patient presents with shortness of breath, no change in phlegm production or color, worsening shortness of breath and hypoxemic respiratory failure. Patient treated with bronchodilators, steroids and BiPAP. 12/28/24: The patient tells me that the day after she left the hospital she started getting worse with fatigue and then worsening oxygenation about 5 days ago. On her prescribed 2 L her saturations were in the 80s and then as low as 79%. She denied fever, chills, rigors. She had a dry cough with no phlegm and no hemoptysis. Currently says she is improved and breathing 50% back to her normal but she feels still feels tired and short of breath. The patient told me she had improved and could come off of the mask and she was placed on 3 L nasal cannula with saturations 91% Plan: Will continue treatment for possible COPD exacerbation. Patient has wheezing but has wheezing every day. I will decrease her Solu-Medrol to 20 mg IV q.6 hours. Continue DuoNebs q.6 hours. Patient is on levofloxacin for possible pneumonia and bronchitis. I will obtain a D-dimer and if positive will get a CT angiogram of the chest. If negative will get a CT scan of the chest looking for focal infiltrates consistent with a pneumonia. Goal saturation 90- 94%, Adjust oxygen accordingly. Will add guaifenesin 1200 mg p.o. b.i.d. Later in the day patient had a CT scan of the chest with moderate apical predominant centrilobular emphysema and bibasilar atelectasis with no evidence of pneumonia. 12/29/2024: Patient states she had a bad night and his breathing worse today. Her cough is increased with no phlegm and no blood. She is afebrile. White blood cell count 15.2, creatinine 1.61. Currently patient is on 4 L nasal cannula saturations 94%. Patient received a Xopenex treatment and had a heart rate 160 that decreased on its own and required no medical intervention. Plan: I will continue Solu-Medrol 20 mg IV q.6. I will discontinue her levalbuterol due to the tachy arrhythmia increase her ipratropium nebulizers to q.4 hours. No evidence of pneumonia. Will treat for tracheobronchitis with Levaquin 750 mg p.o. q.48h, day 2. Continue guaifenesin 12 50 b.i.d., montelukast 10. Patient is on Lasix 20 p.o. b.i.d.. 12/30/24: Patient tells me she is having a better day today. She says that her breathing is 75% back to her normal. Her cough is improved but increased from baseline. She has no phlegm and no hemoptysis. She is afebrile. Her weight today is 112.7 kg. Patient wore the hospital noninvasive ventilator with the AVAPS mode and said that she slept well. Plan: I will change the patient to prednisone 40 mg p.o. q.day, Day 3 of steroids. I will continue ipratropium nebulizers q.4 hours. Continue montelukast 10 q day and guaifenesin 1200 p.o. b.i.d.. continue Levaquin for tracheobronchitis, day 3. Encouraged her out of bed to chair, ambulation as tolerated, physical therapy has been ordered on 12/29/2024. Respiratory path ogen panel, urine Legionella, urine pneumococcal antigen pending. pulmonary inpatient services will resume on 01/02/2025, call with questions. 01/03/2024 patient states that she is breathing 75% back to her normal. Her dyspnea on exertion is back at her normal. His cough is persistent but improved. She is afebrile. White blood cell count 14.1, creatinine 1.46. Her weight is 114. Her currently the patient is on 3 L with saturation 95%. Patient wore the hospital BiPAP with a rate of 20 pressures 20/5 and 32% FiO2 and said that she could not sleep last night because the pressure was too high and the machine had a loud leak and kept her up. BNP 859 which is increased from 563. Continue Lasix 20 p.o. b.i.d.. Plan: Patient continues to improve. Today is day 6 of prednisone and will discontinue after today's dose. Continue ipratropium q.4 hours. Patient is on Levaquin day 6. She is on ceftriaxone day 2 for UTI. Goal saturation 90- 94%, adjust oxygen accordingly. 01/04/2024: Patient tells me she is breathing worse today. She says her cough is more persistent and heavier, remains dry with no phlegm. Her breathing is worse. She is able to walk with physical therapy yesterday and did well. White blood cell count 15.7, creatinine 1.42. Respiratory pathogen panel is negative. Plan. Patient worse today and will restart prednisone 40. Her respiratory pathogen panel is negative. I will obtain a modified barium swallow. Will begin Tessalon Perles 200 t.i.d. standing. Will start levalbuterol 0.63 mcg q.4 hours to see if this will provide some relief. Patient remains on Lasix 20 p.o. b.i.d. she is status post 7 days of levofloxacin and now on ceftriaxone for UTI, day 2. Continue guaifenesin 1200 q.12 hours, Vest therapy, montelukast. Patient is on metoprolol 100 q.12 hours as well as amiodarone 200, Later in the day patient had a modified barium swallow with no evidence of aspiration. 01/05/2024: Patient tells me she is breathing better today. Her cough persists but is better. Her shortness of breath and wheezing persists. She is afebrile. her weight today is 117.4 kg, yesterday she was 1.4 L positive on Lasix 20 p.o. b.i.d.. Plan: Patient had just received vest therapy as well as a nebulized treatment and she still had diffuse wheezing. Overall she is no better after 8 days of steroids, course of levofloxacin and now on ceftriaxone, bronchodilators, Lasix, montelukast and guaifenesin. Last admission on 12/02/2024 patient had AFib with RVR and her metoprolol was increased from 25 XL a day to 100 p.o. b.i.d. and she was started on amiodarone. She tells me she has had persistent symptoms since then. I have placed a hold on the metoprolol and amiodarone. Discussed with Lesley Rock and she will consult Cardiology regarding AFib management. 01/05/25: Overall the patient states that her breathing remains compromised but about the same as yesterday. Her cough has improved and she has no phlegm. Her dyspnea on exertion is the same. Currently she is on 3 L nasal cannula saturations 95%. I decreased her to 2 L. Her white blood cell count is 16.1, creatinine is 1.46. She is positive 3 L yesterday and 4.1 L since admission. Her weight is 117.2 kg her BNP is 614 which is improved from 859 on 01/02/2025. Plan: Patient has not improved. Continue prednisone 40 mg p.o. q.day, day 9, then discontinue. nebulized ipratropium and levalbuterol q.4 hours, montelukast 10, guaifenesin 1200 p.o. b.i.d.. Completed levofloxacin for 7 days and now on ceftriaxone for UTI day 5. I will order CT scan of the chest today. Will try Lasix 40 p.o. b.i.d. to see if she improves with diuresis. Metoprolol and amiodarone have been held since 01/04. Cardiology consult obtained yesterday and appreciate their very detailed and thoughtful consult. Regarding the amiodarone, I agree with her consult note regarding chronic amiodaarone toxicity but I am more worried about a subacute reaction to amiodarone rather than chronic amiodarone lung toxicity. Since patient still has respiratory distress I recommend discontinuation of amiodarone at this time. Later in the day patient had a CT scan of the chest with mild apical predominant centrilobular emphysema, small area of atelectasis versus infiltrate posterior segment right upper lobe. There is no pleural disease, interstitial lung disease, masses, or nodules. 01/06/25: patient tells me she is breathing a little bit better today. She is able to take deeper breaths. Her dry cough persists. She has no phlegm or hemoptysis. She is afebrile. White blood cell count 18.4, creatinine 1.42. Patient is on 2 L nasal cannula saturations 94%. I turned her to room air and after 4 minutes her saturations decreased to 88% and I turned her back to 1 L and her saturations were 92%. Yesterday she diuresed 2.4 L and cumulative she is positive 1.3 L since admission. Her weight today is 119 kg. Plan: overall patient is a little bit better today. She has received 9 days of prednisone and I will discontinue today. I will add nebulized budesonide 500 b.i.d. and continued ipratropium and levalbuterol nebulizers q.4 hours, montelukast 10, guaifenesin 1200. Patient Has completed 7 days of levofloxacin, last dose 01/03/2025, is on ceftriaxone for UTI day 6 an doxycycline started on 01/06/2025. She has no clinical evidence of pneumonia. will check procalcitonin. Continue Lasix 40 p.o. b.i.d.. walked 120 ft and rested once, required 4 L to maintain saturations 89-90% 01/07/25: overall the patient tells me that her breathing is pretty good. She has a cough And states this is not the deep painful cough anymore with no phlegm or hemoptysis. She is afebrile. White blood cell count 15.1, creatinine 1.37, on 2 L nasal cannula saturations are 93%. Patient use a hospital noninvasive ventilation with the AVAPS mode and 32% FiO2 and tolerated this well. diurese 2.4 L yesterday cumulative she is positive 1.3 L since admission. Her weight today is 119 kilos. Wheezes unchanged. Plan: Patient is stable off of prednisone for 48 hours. She requests to continue levalbuterol and ipratropium q.4 hours. continue budesonide nebulizers. Continue montelukast, Tessalon Perles 200 t.i.d. , guaifenesin 1200 b.i.d., and Lasix 40 IV b.i.d. 01/08/25: overall the patient tells me that her breathing is pretty good. She has a cough And states this is not the deep painful cough anymore with no phlegm or hemoptysis. She is afebrile. White blood cell count 15.1, creatinine 1.37, on 2 L nasal cannula saturations are 93%. Patient use a hospital noninvasive ventilation with the AVAPS mode and 32% FiO2 and tolerated this well. diurese 2.4 L yesterday cumulative she is positive 1.3 L since admission. Her weight today is 119 kilos. Wheezes unchanged. Plan: Patient is stable off of prednisone for 3 hours. she has some body tremors and will decrease levalbuterol and ipratropium from q.4 hours to Q 6 hours. Continue budesonide nebulizers. Continue montelukast, Tessalon Perles 200 t.i.d. , guaifenesin 1200 b.i.d., and Lasix 40 IV b.i.d. Discussed with Dr. Crawford. Will follow with you. (2) Chronic hypercapnic respiratory failure: Code(s): J96.12 - Chronic respiratory failure with hypercapnia Status: Acute Assessment and Plan: Last admission 12/02/2024 to 12/08/2024) patient presented with hypercarbic respiratory failure with ABG 7.33/65/103 and serum bicarb > 40. 12/28/2024: She again presents with shortness of breath, hypoxemic and hypercarbic respiratory failure. Current venous blood gas listed as room air 7.33/72/ 43. Patient has chronic hypercarbic respiratory failure from her COPD with a room air blood gas of 7.33/72/43 (venous) and a serum bicarbonate greater than 37. She would benefit from a noninvasive ventilation as this is her 2nd hospitalization in the last month for hypercarbic respiratory failure. noninvasive ventilation would prevent further hospitalizations and deterioration. Patient was placed on BiPAP With no rate and pressures 15/5 with 28% with blood gas of 7.37/64/69. Patient was then placed on BiPAP with no rate and pressure 20/5 and 32% with a blood gas of 7.38/64/74. [employer] on these settings demonstrated adequate oxygenation. Patient was then placed on BiPAP rate of 20 pressures 20/5 and she said she could not tolerate these settings as it was too much pressure, high leak and she could not sleep at night. I will initiate the process for a home noninvasive ventilator with the AVAPS mode through her [employer], oxygen DME is [employer] who we will use. The patient told me she had improved and could come off of the mask and she was placed on 3 L nasal cannula with saturations 91% 12/28/24: Currently the patient is on BiPAP rate of 18, pressures 14/8 with 40% FiO2. Patient told me these settings were uncomfortable for her and I changed them to noninvasive ventilation with the AVAPS mode rate of 14, tidal volume 500, EPAP 5, minimal inspiratory pressure 6, maximal inspiratory pressure 25, inspiratory time 1.0, rise of 1 which is the fastest and 40% FiO2. She said this was more comfortable. The patient told me she had improved and could come off of the mask and she was placed on 3 L nasal cannula with saturations 91%. Plan: noninvasive ventilation with the AVAPS mode p.r.n. during the day. I recommend she wear this tonight. After she has improved will repeat ABG during the day. 12/29/24: Patient attempted to wear the fullface mask with the AVAPS settings as above and she did wear the mask but she could not sleep. plan: Patient says she will try to wear the AVAPS again tonight. I told her if she can not sleep with the mask on that she needs to take the mask off so that she can try to sleep. 12/30/24: Patient wore the hospital noninvasive ventilator with the AVAPS mode and said that she slept well. Plan: Patient tells me she still requires breathing support at night. If the patient qualifies for ventilatory support with a home machine it will need to be BiPAP with no rate. Tonight will place the patient on BiPAP no rate, pressures 15/5 and 28% FiO2 with overnight oximetry and ABG in the morning. 12/31/24: Patient wore a hospital BiPAP with no rate pressures 15/5 with 28% with blood gas the next morning 7.37/64/69 and overnight oximetry with hypoxia. 01/02/2024: Patient wore the hospital BiPAP with no rate pressures 20/5 with 32% a blood gas of 7.38/64/74 and overnight oximetry with adequate saturations. 01/03/2024 Patient wore the hospital BiPAP with a rate of 20 pressures 20/5 and 32% FiO2 and said that she could not sleep last night because the pressure was too high and the machine had a loud leak and kept her up. Plan: I will place the patient on noninvasive ventilation with the AVAPS mode rate of 14, tidal volume 500, EPAP 5, minimum inspiratory pressure 6, maximum inspiratory pressure 25, inspiratory time 1.0, rise of 1 and 32% FiO2. I will obtain an overnight oximetry and ABG on these settings. I will initiate home noninvasive ventilation through [facility] and her insurance [facility]. Later in the day filled out a home noninvasive ventilator form for [facility] through [facility] insurance for IVAPS with AE: Rate 14, tidal volume 500, minimum EPAP 5, maximum EPAP 15, minimum pressure support 6, maximum pressure support 25, 3 L bleed in. 01/03/25: Patient wore the hospital machine BiPAP rate of 20, pressures 20/5, inspiratory time 1, rise of 3 and 32% FiO2. She said she had a difficult time sleeping in the mask did not fit with a large leak. Overnight oximetry on these settings with recording duration of 7 hours and 40 minutes, average saturation 94%. Low saturation 63%. Time with saturation less than or equal to 88% 6 minutes, oxygen desaturation index 5.1. ABG 7.36/55/78. Plan: Waiting to hear back from his [facility] regarding a home machine. tonight AVAPS mode rate of 14, tidal volume 500, EPAP 5, minimum inspiratory pressure 6, maximum inspiratory pressure 25, inspiratory time 1.0, rise of 1 and 32% FiO2. I will obtain an overnight oximetry and ABG on these settings. 01/04/25: Patient could not tolerate the BiPAP but does tolerate noninvasive ventilation with the AVAPS mode. She used the hospital noninvasive ventilator with the AVAPS mode rate of 14, tidal volume 500, EPAP 5, minimal inspiratory pressure 6, maximal inspiratory pressure 25, I-time 1.0, rise of 1 and 32% FiO2. Patient said she slept well and could tolerate this machine. There was no leak. Patient had an overnight oximetry on these settings with recording duration of 6 hours and 56 minutes, average saturation 95%, low saturation 89%, time with saturation less than or equal to 88% was 0 minutes, oxygen desaturation index 2.1. ABG prior to removal was 7.35/53/85. Plan: Current noninvasive ventilation with the AVAPS mode provide adequate ventilation and oxygenation. Waiting to hear from [facility] regarding home noninvasive ventilation approval. 01/05/25: patient tells me she wore the hospital noninvasive ventilation with the AVAPS mode last night and slept well. Plan: Patient has been denied a noninvasive ventilator by [facility], her insurance company. This has been of relate to us verbally and we are waiting for the formal denial. Once this is in place will obtain a phone number for a peer to peer review. While she is in the hospital continue hospital noninvasive ventilator with 32% FiO2. 01/06/2025: Patient wore the hospital noninvasive ventilator with the AVAPS mode fullface mask and said she slept well and tolerated this. Plan: Patient's request for noninvasive ventilation was denied by [facility]. They requested a peer to peer. I spent the last 50 minutes trying to complete appear to peer process through the [facility] phone number with the Case record for the peer to peer review that I was given and was told this is the incorrect information. Peer to peer review was unsuccessful. Will contact [facility] again to try to get correct information. attempted to perform peer to peer review for 50 minutes on the phone with various [facility] representatives without success. I talked to our clinical manager home care will also try to coordinate this. 01/07/25: Need to perform peer to peer review with [facility] representatives prior to discharge. 01/08/25: patient tolerated hospital noninvasive ventilation with the AVAPS mode and 32% FiO2. Feels she can go without the noninvasive ventilation tonight. Plan: Tonight the patient will wear 4 L nasal cannula and I will check an ABG at 8:00 a.m. tomorrow 24 hours off of the noninvasive ventilation to reassess her hypercarbic respiratory failure. I will obtain an overnight oximetry on 4 L nasal cannula. Subjective Date/time seen: 01/08/25 11:04 Interval history: 12/28/2024: This is a new pulmonary consult for COPD exacerbation. 64-year-old with a history of AFib off anticoagulation for 2 years secondary to abdominal rectal sheath hematoma, diastolic dysfunction, GERD, HTN, restless legs syndrome, anxiety and COPD with chronic hypoxemic respiratory failure on 5 L at Night and 2 L with rest and activity per home O2 assessment on 12/08/2024. I previously saw the patient as an inpatient on 12/02/2024 when she was admitted for COPD exacerbation. Regarding her COPD, 50 pack year tobacco use, quit 08/23/2022, alpha 1 anti trypsin genotype MZ, alpha 1 anti trypsin level 134, normal. The patient has been on oxygen for the last 5 years. I have no PFTs. She is using 5 L at rest with home saturations 92-96%. First CT scan in our system is from 08/27/2022 shows mild apical predominant centrilobular emphysema. Repeat CT angiogram of the chest on 12/02/2024 demonstrates mild apical predominant centrilobular emphysema. Patient is maintained on trelegy inhaler but she does not use a because of the taste. Patient takes Trelegy 100, montelukast 10 and albuterol p.r.n.. Patient tells me she wheezes every day when she takes rescue albuterol at home it relieves her wheezing for 1-2 minutes. 12/01/2024: White blood cell count 14.8, eosinophils 0.6%= 89 per micro L. 12/02/2024 through 12/08/2024:? Presented to the emergency room with COPD exacerbation, hypercarbic and hypoxemic respiratory failure, AFib with RVR, and fluid overload.? Treated with BiPAP, steroids, bronchodilators, antibiotics, and diuretics.? CTA of the chest with no PE, mild apical predominant centrilobular emphysema, ?upper and lower extremity Dopplers negative for DVT.? Echocardiogram with LVEF 60-65%, RV was dilated with normal systolic function.? Left atrium normal, right atrium normal, RVSP 27. ?After she improved clinically on 12/06/2024: ABG on 5 L nasal cannula pH 7.39/48/97. ?Patient improved and was discharged on 12/08/24 on trelegy 100, rescue albuterol, montelukast 10, guaifenesin 600 b.i.d. p.r.n. congestion, no Lasix, amiodarone 200 b.i.d., metoprolol 100 q.12, she had completed 5 days of steroids in house and I did not recommend a discharge taper, however, the hospitalist discharge her on a 15 day prednisone taper. Required 2 L oxygen at rest and with activity per home O2 assessment and per overnight oximetry required 5 L NC when she naps or sleeps. ?12/08/24: creatinine 1.68. Her weight is 120.8 kg.? 12/28/2024: Presented to the emergency room with shortness of breath. blood pressure 136/117, heart rate 76, nasal cannula saturation 93%. Patient had wheezing throughout all lung paul. White blood cell count 13.4 with eosinophils 1.8%=241/ul. creatinine 1.34, serum bicarbonate 37, BNP 563. Venous blood gas listed as room air 7.33/72/ 43. patient placed on BiPAP, treated with bronchodilators, received IV steroids per EMS, lasix 40 IV. 12/28/24: Currently the patient is on BiPAP rate of 18, pressures 14/8 with 40% FiO2. Patient told me these settings were uncomfortable for her and I changed them to noninvasive ventilation with the AVAPS mode rate of 14, tidal volume 500, EPAP 5, minimal inspiratory pressure 6, maximal inspiratory pressure 25, inspiratory time 1.0, rise of 1 which is the fastest and 40% FiO2. She said this was more comfortable. The patient told me she had improved and could come off of the mask and she was placed on 3 L nasal cannula with saturations 91% The patient tells me that the day after she left the hospital she started getting worse with fatigue and then worsening oxygenation about 5 days ago. On her prescribed 2 L her saturations were in the 80s and then as low as 79%. She denied fever, chills, rigors. She had a dry cough with no phlegm and no hemoptysis. Currently says she is improved and breathing 50% back to her normal but she feels still feels tired and short of breath. Later in the day patient had a CT scan of the chest with moderate apical predominant centrilobular emphysema and bibasilar atelectasis with no evidence of pneumonia. 12/29/2024: Patient states she had a bad night and his breathing worse today. Her cough is increased with no phlegm and no blood. She is afebrile. White blood cell count 15.2, creatinine 1.61. Currently patient is on 4 L nasal cannula saturations 94%. Patient tempted to wear the fullface mask with the AVAPS settings as above and she did wear the mask but she could not sleep. Patient received a Xopenex treatment and had a heart rate 160 that decreased on its own and required no medical intervention. 12/30/24: Patient tells me she is having a better day today. She says that her breathing is 75% back to her normal. Her cough is improved but increased from baseline. She has no phlegm and no hemoptysis. She is afebrile. Her weight today is 112.7 kg. Patient wore the hospital noninvasive ventilator with the AVAPS mode and said that she slept well. 12/31/24: Patient wore a hospital BiPAP with no rate pressures 15/5 with 28% with blood gas the next morning 7.37/64/69 and overnight oximetry with hypoxia. 01/02/2024: Patient wore the hospital BiPAP with no rate pressures 20/5 with 32% a blood gas of 7.38/64/74 and overnight oximetry with adequate saturations. 01/03/2024 patient states that she is breathing 75% back to her normal. Her dyspnea on exertion is back at her normal. His cough is persistent but improved. She is afebrile. White blood cell count 14.1, creatinine 1.46. Her weight is 114. Patient wore the hospital BiPAP with a rate of 20 pressures 20/5 and 32% FiO2 and said that she could not sleep last night because the pressure was too high and the machine had a loud leak and kept her up. Later in the day filled out a home noninvasive ventilator form for Rene through [facility] insurance for IVAPS with AE: Rate 14, tidal volume 500, minimum EPAP 5, maximum EPAP 15, minimum pressure support 6, maximum pressure support 25, 3 L bleed in. 01/04/2024: Patient tells me she is breathing worse today. She says her cough is more persistent and heavier, remains dry with no phlegm. Her breathing is worse. She is able to walk with physical therapy yesterday and did well. White blood cell count 15.7, creatinine 1.42. Respiratory pathogen panel is negative. Patient wore the hospital machine BiPAP rate of 20, pressures 20/5, inspiratory time 1, rise of 3 and 32% FiO2. She said she had a difficult time sleeping in the mask did not fit with a large leak. She cannot sleep with this machine. Overnight oximetry on these settings with recording duration of 7 hours and 40 minutes, average saturation 94%. Low saturation 63%. Time with saturation less than or equal to 88% 6 minutes, oxygen desaturation index 5.1. ABG 7.36/55/78. Levalbuterol and Tessalon Perles added. 01/05/2024: Patient tells me she is breathing better today. Her cough persists but is better. Her shortness of breath and wheezing persists. She is afebrile. her weight today is 117.4 kg, yesterday she was 1.4 L positive on Lasix 20 p.o. b.i.d.. She used the hospital noninvasive ventilator with the AVAPS mode rate of 14, tidal volume 500, EPAP 5, minimal inspiratory pressure 6, maximal inspiratory pressure 25, I-time 1.0, rise of 1 and 32% FiO2. Patient said she slept well and could tolerate this machine. There was no leak. Patient had an overnight oximetry on these settings with recording duration of 6 hours and 56 minutes, average saturation 95%, low saturation 89%, time with saturation less than or equal to 88% was 0 minutes, oxygen desaturation index 2.1. ABG prior to removal was 7.35/53/85. Metoprolol and amiodarone held. walked 116 ft. 01/05/25: Overall the patient states that her breathing remains compromised but about the same as yesterday. Her cough has improved and she has no phlegm. Her dyspnea on exertion is the same. Currently she is on 3 L nasal cannula saturations 95%. I decreased her to 2 L. Her white blood cell count is 16.1, creatinine is 1.46. She is positive 3 L yesterday and 4.1 L since admission. Her weight is 117.2 kg her BNP is 614 which is improved from 859 on 01/02/2025. patient tells me she wore the hospital noninvasive ventilation with the AVAPS mode last night and slept well. Lasix 20 p.o. b.i.d. increased to Lasix 40 p.o. b.i.d. Last dose of prednisone 40 given. Later in the day patient had a CT scan of the chest with mild apical predominant centrilobular emphysema, small area of atelectasis versus infiltrate posterior segment right upper lobe. There is no pleural disease, interstitial lung disease, masses, or nodules. 01/06/25: patient tells me she is breathing a little bit better today. She is able to take deeper breaths. Her dry cough persists. She has no phlegm or hemoptysis. She is afebrile. White blood cell count 18.4, creatinine 1.42. Patient is on 2 L nasal cannula saturations 94%. I turned her to room air and after 4 minutes her saturations decreased to 88% and I turned her back to 1 L and her saturations were 92%. Yesterday she diuresed 2.4 L and cumulative she is positive 1.3 L since admission. Her weight today is 119 kg. Ventilator declined by insurance, attempted peer to peer for 50 minutes and was unable to schedule. walked 120 ft and rested once, required 4 L to maintain saturations 89-90% 01/07/25: overall the patient tells me that her breathing is pretty good. She has a cough And states this is not the deep painful cough anymore with no phlegm or hemoptysis. She is afebrile. White blood cell count 15.1, creatinine 1.37, on 2 L nasal cannula saturations are 93%. Patient use a hospital noninvasive ventilation with the AVAPS mode and 32% FiO2 and tolerated this well. diurese 2.4 L yesterday cumulative she is positive 1.3 L since admission. Her weight today is 119 kilos. Wheezes unchanged. 01/08/25: overall the patient tells me that her breathing is pretty good. She has a unchanged cough. She is afebrile. White blood cell count 16.5, creatinine 1.38, on 2 L nasal cannula saturations are 92%. Patient use a hospital noninvasive ventilation with the AVAPS mode and 32% FiO2 and tolerated this well. diurese 490 L yesterday cumulative she is positive 145 ml since admission. Her weight today is 116 kilos. BNP has improved to 271. Wheezes unchanged. DATA: 01/05/25: EXAMINATION: CT diagnostic chest wo con INDICATION: RIGGINS, wheezing COMPARISON: 12/28/2024 FINDINGS: Mild emphysema. Small region with increased reticulonodular pattern at the posterior segment of the right upper lobe consistent with progression of pneumonia. Linear and bandlike atelectasis in the bilateral lower lobes and in the lingula. No pulmonary edema or pleural effusion. Heart size is normal. Atherosclerotic coronary artery calcium location and aortic valve calcification. Thoracic aorta normal in caliber. No pathologically enlarged thoracic lymphadenopathy. Again seen is a 3.5 cm mass extending posteriorly from the left thyroid lobe. Cholecystectomy clips at the gallbladder fossa. Moderate thoracic spondylosis. IMPRESSION: 1. Mild emphysema with right upper lobe pneumonia. 2. 3.5 cm left thyroid mass. 01/03/25: MODIFIED ESOPHAGRAM HISTORY: Coughing when swallowing TECHNIQUE: Modified barium esophagram was performed on 01/03/2025. I administered fluoroscopy and performed the exam with speech pathologist. Patient was seated for lateral fluoroscopic imaging for ingestion of thin liquids, pudding, solids and quantified amounts, followed by thin liquids in uncontrolled amounts. This was recorded on tape. A single fluoroscopic spot image was also recorded. The DAP for this procedure was 2.267 Gycm2. The amount of fluoroscopy time used during this procedure was 2.0 minutes. FINDINGS: Oral stage: Adequate function. Pharyngeal stage: Adequate function. Cervical/esophageal stage: Adequate function. IMPRESSION: Patient tolerated regular consistency oral feedings in the upright position. Please correlate with speech pathologist findings and specific feeding recommendations. 12/28/24: CT chest CLINICAL INDICATION: Pneumonia suspected clinically COMPARISON: Reference is made to plain film evaluation of the chest, performed approximately 12 hours earlier and dating back to 12/05/2024. Reference is also made to a CT angiogram of the chest dated 10/20/2022 FINDINGS/OBSERVATIONS: Lung: bibasilar atelectasis, unchanged from chest radiograph. The remainder the lungs are clear. HEART: The heart is borderline enlarged, without pericardial effusion. MEDIASTINUM: Redemonstration of a large left thyroid nodule, increased in size from 2022 examination. No pathologically enlarged or morphologically suspicious lymph nodes are identified within the mediastinum, bilateral axilla, within the soft tissues of the anterior chest wall. SOFT TISSUES OF THE CHEST: Unremarkable. BONES OF THE CHEST: No acute fracture. No lytic or blastic lesions are identified. IMPRESSION: No cross-sectional imaging evidence to suggest the presence of pneumonia. Bibasilar atelectasis, unchanged from a recent radiograph, as detailed above.. 12/08/2024: Home O2 assessment: Rest room air saturation 87%. Rest nasal cannula 1 L saturation 88%. Rest nasal cannula saturation 93%. Exercise nasal cannula 2 L saturation 94%. Patient requires 2 L with rest and with activity. 12/07/24: Patient had an overnight oximetry on 5 L nasal cannula with recording duration of 6 hours and 58 minutes. Average saturation 98%. Low saturation 95%. Time with saturation less than or equal to 88% was 0 minutes. Oxygen desaturation index 0. 12/06/2024: ABG on 5 L nasal cannula pH 7.39/48/97. ? 12/02/2024: Alpha 1 anti trypsin genotype capital MZ. 12/02/2024: Alpha 1 anti trypsin level 135, normal 83-199. 12/02/24: CTA chest PE protocol History: 64 years Female with . R/O PE . Findings: PULMONARY ARTERIES: No pulmonary embolus. VISUALIZED THORACIC INLET: Left thyroid nodule is noted. Ultrasound evaluation advised. MEDIASTINUM: Aorta/coronary arteries: Mild atheromatous disease. Heart/other: The heart is not enlarged. Lymph nodes: No mediastinal or hilar adenopathy. Precarinal lymph node measuring 1.6 cm noted. LUNGS: Atelectasis versus pneumonia seen in the right lung base inferiorly. Minimal atelectasis versus pneumonia in the left lung base is also noted. No pulmonary nodules or masses. No effusions. No pneumothorax. VISUALIZED UPPER abdomen: the visualized upper abdomen is normal. MUSCULOSKELETAL: Soft tissues: The superficial soft tissues are normal. Bones: Age appropriate degenerative changes of the spine. IMPRESSION: 1. No pulmonary embolism. 2. Bilateral basal atelectasis versus pneumonia. Clinical correlation advised. 12/02/2024: Echo Summary 1. The left ventricle is normal in size and systolic function. The left ventricular ejection fraction visually estimated to be 60-60%. 2. The right ventricle is dilated with normal systolic function. 3. There are no significant valvular abnormalities. 4. Technically difficult study. Left Ventricle The left ventricle is normal in size and systolic function. The left ventricular ejection fraction visually estimated to be 60-60%. Diastolic dysfunction is present. Right Ventricle The right ventricle is dilated with normal systolic function. Left Atria The left atrium is normal size. Right Atria The right atrium is normal size. RVSP 27 12/17/2023: CT Scan of the Chest without Contrast: Clinical Indication: Lung cancer screening, nicotine dependence COMPARISON: 04/06/2023 Findings: Stable enlarged left thyroid lobe. There is no evidence of any significant mediastinal, hilar or axillary lymphadenopathy. Atherosclerotic calcifications of the aorta are present. There is no evidence of pleural or pericardial effusion. There is irregular airspace opacity in the posterior right lower lobe, improved from prior exam, likely representing postinflammatory change, as there is a previous more extensive area of consolidation in this location. Mild emphysema. Images through the upper abdomen reveal no abnormalities. Impression: Lung RADS 2: Benign appearance. 12 month follow-up screening CT advised. 09/10/2022: Echo Summary 1. Technically difficult study with limited views. Regional wall motion assessment limited due to poor endomyocardial border definition despite definity contrast enhancement. 2. Left ventricular chamber dimension is normal. 3. Left ventricular systolic function is normal, estimated at 65-70%. 4. There is mildly increased left ventricular wall thickness. 5. Right ventricular chamber dimension is normal. 6. Right ventricular systolic function is moderately reduced. TAPSE 1.3. 7. There is trace tricuspid valve regurgitation. 8. Mild pulmonary hypertension, estimated pulmonary arterial systolic pressure is 37 mmHg. 9. Normal inferior vena cava with <50% collapse upon inspiration consistent with elevated right atrial pressure, 10 mmHg. 08/28/2022: Summary 1. Left ventricular chamber dimension is normal. 2. Left ventricular systolic function is normal, estimated at 60-65%. 3. The left ventricular diastolic function is grade I diastolic dysfunction. 4. Right ventricular chamber dimension is moderately enlarged. 5. Right ventricular systolic function is normal. 6. There is moderate tricuspid valve regurgitation, which may be underestimated due to the eccentricity of the jet. 7. Dilated inferior vena cava with no collapse upon inspiration consistent with elevated right atrial pressure, 15 mmHg. 8. Pulmonary hypertension with an estimated PASP of 59mmHg. Right Ventricle Right ventricular chamber dimension is moderately enlarged. Right ventricular systolic function is normal. Right Atria Right atrial chamber dimension is normal. Atrial Septum Intact interatrial septum visualized by color flow imaging. 08/27/2022: EXAMINATION: CT chest high resolution wo co DATE: 08/27/2022 16:07 INDICATION: respiratory failure TECHNIQUE: Computed tomography (CT) of the chest was performed without intravenous contrast. Automated exposure control and iterative reconstruction technique were employed. The dose-length product was 818.52 mGy-cm. COMPARISON: X-ray chest 08/27/2022 and CTA chest 07/21/2018. FINDINGS: CHEST: Endotracheal tube terminating 2.5 cm above the maria esther. Thoracic aorta: No significant dilation. Moderate arch calcification. Lung parenchyma and airways: Diffuse tree-in-bud opacities most evident in the right lung. Scattered centrilobular nodular opacities measuring up to 11 mm in the right upper lobe. Mild interlobular septal thickening. Bibasilar dependent opacities likely representing atelectasis. Mild emphysematous change. Thoracic inlet, axillae and chest wall: No thyroid or soft tissue mass. No axillary lymphadenopathy. Mediastinum: Mediastinal lymphadenopathy. Dilated central pulmonary arteries as can be seen with pulmonary arterial hypertension. Heart and pericardium: Normal heart size. Aortic valve calcification. No pericardial effusion. Coronary artery calcifications: Mild. Pleura: Trace bilateral pleural fluid. Upper abdomen: No significant finding. Thoracic bones: No acute osseous finding in the chest. IMPRESSION: 1. Tree-in-bud opacities as can be seen with atypical infection (including but not limited to: MAC, TB, fungal), ABPA, airways disease, and less likely aspiration. 2. Nodular opacity in right upper lobe should be followed after the appropriate therapy and cessation of symptoms to ensure resolution. 3. Mediastinal lymphadenopathy. 4. Trace bilateral pleural effusions. 5. Mild interstitial edema. Review of Systems Constitutional: Constitutional: Reports no additional constitutional complaints Eyes: Eyes: Reports no additional eye complaints ENT: Reports system reviewed and no additional complaints, except as documented Cardiovascular: Cardiovascular: Reports no additional cardiovascular complaints Respiratory: Respiratory: Reports no additional respiratory complaints Gastrointestinal: Gastrointestinal: Reports no additional gastrointestinal complaints Musculoskeletal: Musculoskeletal: Reports no additional musculoskeletal complaints Neurologic: Reports system reviewed and no additional complaints, except as documented Psychiatric: Psychiatric: Reports no additional psychiatric complaints Endocrine: Endocrine: Reports no additional endocrine complaints Hematologic/Lymphatic: Hematologic/Lymphatic: Reports no additional hematologic/lymphatic complaints Allergic/Immunologic: Allergic/Immunologic: Reports no additional allergic/immunologic complaints Exam Const: General: cooperative, healthy appearing and comfortable Orientation/consciousness: oriented to person, oriented to place and oriented to time HENMT: Head: normal to inspection Ears: hearing grossly normal bilaterally Eyes: General: appearance normal, both eyes and all related structures Neck: Neck: normal visual inspection Chest: Chest palpation & inspection: normal inspection of the chest Resp: Effort & Inspection: normal respiratory effort and able to speak in complete sentences Auscultation: no crackles, no rales, no rhonchi, no wheezes and diminished lung sounds Other: wheezes Cardio: Jugular venous distension: no JVD GI: Inspection: normal to inspection Skin: General skin exam: normal color Neuro: General: oriented to person, oriented to place and oriented to time Extrem: General: edema Other: Psych: Appearance: grossly normal Objective Data Vital Signs Vital Signs: Vital Signs - 24 hr 01/07/25 11:20 01/07/25 11:20 01/07/25 11:38 Temperature Pulse Rate 93 90 Respiratory Rate 20 20 Blood Pressure Pulse Oximetry 94 Oxygen Delivery Nasal Cannula Oxygen Flow Rate 2 Fraction of Inspired Oxygen 01/07/25 12:00 01/07/25 14:00 01/07/25 15:14 Temperature Pulse Rate 107 H 102 H Respiratory Rate Blood Pressure 129/48 L Pulse Oximetry 93 95 Oxygen Delivery Nasal Cannula Oxygen Flow Rate 2 Fraction of Inspired Oxygen 01/07/25 15:14 01/07/25 15:26 01/07/25 16:00 Temperature Pulse Rate 102 H 97 97 Respiratory Rate 20 20 Blood Pressure Pulse Oximetry Oxygen Delivery Oxygen Flow Rate Fraction of Inspired Oxygen 01/07/25 19:59 01/07/25 20:00 01/07/25 20:00 Temperature 36.3 C L Pulse Rate 101 H 103 H 103 H Respiratory Rate 12 18 Blood Pressure 136/53 L Pulse Oximetry 93 95 Oxygen Delivery Nasal Cannula Oxygen Flow Rate 2 Fraction of Inspired Oxygen 01/07/25 20:18 01/07/25 20:30 01/07/25 21:03 Temperature Pulse Rate 103 H 103 H Respiratory Rate 18 18 Blood Pressure Pulse Oximetry 95 Oxygen Delivery Nasal Cannula Oxygen Flow Rate 2 Fraction of Inspired Oxygen 01/07/25 22:15 01/08/25 00:00 01/08/25 00:30 Temperature Pulse Rate 103 H 96 103 H Respiratory Rate 18 18 Blood Pressure Pulse Oximetry 93 Oxygen Delivery BiPAP Oxygen Flow Rate Fraction of Inspired Oxygen 01/08/25 00:50 01/08/25 01:12 01/08/25 03:50 Temperature Pulse Rate 103 H 103 H 103 H Respiratory Rate 18 17 18 Blood Pressure Pulse Oximetry 93 Oxygen Delivery BiPAP Oxygen Flow Rate Fraction of Inspired Oxygen 01/08/25 04:00 01/08/25 04:10 01/08/25 04:34 Temperature Pulse Rate 98 103 H 103 H Respiratory Rate 18 18 Blood Pressure Pulse Oximetry Oxygen Delivery BiPAP Oxygen Flow Rate Fraction of Inspired Oxygen 01/08/25 05:38 01/08/25 07:59 01/08/25 07:59 Temperature 36.3 C L Pulse Rate 79 111 H 111 H Respiratory Rate 20 20 20 Blood Pressure 166/59 H Pulse Oximetry 96 93 Oxygen Delivery Nasal Cannula Oxygen Flow Rate 2 Fraction of Inspired Oxygen 01/08/25 08:23 Temperature Pulse Rate 114 H Respiratory Rate 20 Blood Pressure Pulse Oximetry Oxygen Delivery Oxygen Flow Rate Fraction of Inspired Oxygen Intake/Output Intake/Output: Intake & Output 01/05/25 01/06/25 01/07/25 01/08/25 23:59 23:59 23:59 23:59 Intake Total 3920 4510 4660 840 Output Total 6400 5850 5150 1200 Balance -2480 -1340 -490 -360 Meds/Results Medications: Active Medications Generic Name Dose Route Start Last Admin Trade Name Freq PRN Reason Stop Dose Admin Hydrocodone Bitart/Acetaminophen 1 tab 12/31/24 09:42 12/31/24 10:10 Hydrocodone/Acetaminophen (*Crx) 5-325 Mg Tablet PO 1 tab Q4H PRN Administration Pain Rated 4-6 Amitriptyline HCl 10 mg 12/28/24 21:00 01/07/25 20:39 Amitriptyline Hcl 10 Mg Tablet PO 10 mg HS YODIT Administration Benzonatate 200 mg 01/03/25 09:00 01/08/25 09:09 Benzonatate 100 Mg Capsule PO 200 mg TID YODIT Administration Budesonide 0.5 mg 01/06/25 08:00 01/08/25 07:55 Budesonide Respule Neb 0.5 Mg/2 Ml Amp INHALATION 0.5 mg Q12HRT YODIT Administration Duloxetine HCl 40 mg 12/28/24 17:00 01/08/25 09:09 Duloxetine Hcl 20 Mg Capsule.Dr PO 40 mg BID YODIT Administration Enoxaparin Sodium 40 mg 01/07/25 09:00 01/08/25 09:10 Enoxaparin 40 Mg/0.4 Ml Syringe SUB-Q 40 mg DAILY YODIT Administration Escitalopram Oxalate 20 mg 12/28/24 15:30 01/08/25 09:09 Escitalopram Oxalate 10 Mg Tablet PO 20 mg DAILY YODIT Administration Ferrous Sulfate 325 mg 12/28/24 17:00 01/08/25 09:09 Ferrous Sulfate [address] BY MOUTH 325 mg BID YODIT Administration Furosemide 40 mg 01/05/25 17:00 01/08/25 09:15 Furosemide 40 Mg Tablet PO 40 mg BID YODIT Administration Guaifenesin 1,200 mg 12/28/24 21:00 01/08/25 09:09 Guaifenesin 12 Hr 600 Mg Tabcr PO 1,200 mg Q12HR YODIT Administration Ceftriaxone Sodium 1 gm in 50 mls @ 100 mls/hr 01/01/25 09:40 01/08/25 09:07 Rocephin 1 Gm/Ns 50 Ml IVPB 100 mls/hr QAM YODIT Administration Doxycycline Hyclate 100 mg in 100 mls @ 100 mls/hr 01/06/25 08:00 01/08/25 10:40 Vibramycin 100 Mg/Ns 100 Ml IVPB 100 mls/hr Q12H YODIT Administration Ipratropium [place] 0.5 mg 12/29/24 12:00 01/08/25 07:54 Ipratropium Br 0.02% Inh Soln 0.5 Mg/2.5 Ml Vial INHALATION 0.5 mg Q4HRT YODIT Administration Levalbuterol HCl 0.63 mg 01/03/25 12:00 01/08/25 07:54 Levalbuterol Neb 1.25 Mg/3 Ml INHALATION 0.63 mg Q4HRT YODIT Administration Lidocaine 1 patch 12/31/24 11:55 01/08/25 09:11 Lidocaine 5% Patch TRANSDERM Not Given DAILY YODIT Magnesium Hydroxide 30 ml 12/28/24 14:40 Magnesium Hydroxide Susp 30 Ml Udc PO HS PRN Constipation Melatonin 5 mg 12/28/24 14:40 01/07/25 20:44 Melatonin 5 Mg Tablet PO 5 mg HS PRN Administration Insomnia Montelukast Sodium 10 mg 12/29/24 09:00 01/08/25 09:09 Montelukast Sodium 10 Mg Tablet PO 10 mg DAILY YODIT Administration Pantoprazole Sodium 40 mg 12/28/24 21:00 01/08/25 09:09 Pantoprazole 40 Mg Tablet PO 40 mg Q12HR YODIT Administration Quetiapine Fumarate 25 mg 12/28/24 21:00 01/07/25 20:40 Quetiapine Fumarate 25 Mg Tablet PO 25 mg HS YODIT Administration Ropinirole HCl 4 mg 12/28/24 21:00 01/07/25 20:41 Ropinirole Hcl 1 Mg Tablet PO 4 mg HS YODIT Administration Topiramate 200 mg 12/28/24 21:00 01/08/25 09:08 Topiramate 100 Mg Tablet PO 200 mg Q12HR YODIT Administration Trazodone HCl 50 mg 12/28/24 21:00 01/07/25 20:42 Trazodone Hcl 50 Mg Tablet PO 50 mg HS YODIT Administration Trazodone HCl 150 mg 01/03/25 13:16 01/06/25 21:04 Trazodone Hcl 50 Mg Tablet PO 150 mg HS PRN Administration Insomnia Radiology Results: ITS Impressions Chest X-Ray 01/02/25 09:39 IMPRESSION: 1. Increasing opacities in the right mid and bilateral lower lung zones which could represent worsening atelectasis or pneumonia. Modified Barium Swallow 01/03/25 15:10 IMPRESSION: Patient tolerated regular consistency oral feedings in the upright position. Please correlate with speech pathologist findings and specific feeding recommendations. Chest CT 01/05/25 17:10 IMPRESSION: 1. Mild emphysema with right upper lobe pneumonia. 2. 3.5 cm left thyroid mass. Labs Labs: Laboratory Results - last 24 hr 01/08/25 01/08/25 04:11 04:15 WBC 16.5 H RBC 4.02 L Hgb 10.5 L Hct 37.2 MCV 92.5 MCH 26.1 MCHC 28.2 L RDW 15.2 H Plt Count 348 MPV 9.4 Immature Gran % (Auto) 6.5 H Neut % (Auto) 65.5 Lymph % (Auto) 19.3 [place] % (Auto) 6.7 Eos % (Auto) 1.5 Baso % (Auto) 0.5 Lymph # (Auto) 3.19 [place] # (Auto) 1.1 H Eos # (Auto) 0.3 Baso # (Auto) 0.1 Abs Immat Gran (auto) 1.07 H Absolute Neuts (auto) 10.8 H Absolute Nucleated RBC 0.000 Nucleated RBC % 0.0 Sodium 141 Potassium 4.1 Chloride 99 Carbon Dioxide 36 H Anion Gap 6 BUN 23 H Creatinine 1.38 H Estim Creat Clear Calc 47 Estimated GFR 38 L Glucose 129 H Calcium 9.1 NT-Pro-B Natriuret Pep 271 H
[2025-01-08] MEDS: traZODone HCL 50 MG TABLET PO (20:03)
[2025-01-08] MEDS: rOPINIRole HCL 1 MG TABLET 4 MG PO (20:03)
[2025-01-08] MEDS: AMITRIPTYLINE HCL 10 MG TABLET PO (20:03)
[2025-01-08] MEDS: QUEtiapine FUMARATE 25 MG TABLET PO (20:03)
[2025-01-08] MEDS: MELATONIN 5 MG TABLET PO (20:06)
[2025-01-08] MEDS: traZODone HCL 50 MG TABLET 150 MG PO (20:06)
[2025-01-09] VITALS (18 sets, daily range): BP systolic 108–120; BP diastolic 51–70; PULSE 88–116; RESP 18–20; TEMP 36.3–36.5; O2SAT 91–96
[2025-01-09 05:26] LABS: Alveolar/Arterial O2 Gradient 102.4 mmHg; Base Excess ABG 8.8 mEq/l (+/-2.0); Fractional Inspired Oxygen 36 %; HCO3 ABG 36.5 mEq/l (22.0-26.0); Oxygen Content ABG 15.8 %vol (16.0-22.0); Oxygen Saturation ABG 94.2 % (95.0-100.0); Oxyhemoglobin 94.1 % THb (90.0-100.0); PO2 ABG 76.2 mmHg (80.0-100.0); PO2 FiO2 Ratio Arterial Blood 2.12 %; Total Hemoglobin 11.9 g/dL (12.0-18.0); pH ABG 7.352 (7.350-7.450)
[2025-01-09 05:31] LABS: Device NASAL CANNULA; Modified Allen's Test Pass; PCO2 ABG 67.3 mmHg (35.0-45.0); Site Drawn RIGHT BRACHIAL
[2025-01-09 07:12] LABS: Basophils Absolute Auto 0.1 K/mm3 (0.0-0.1); Basophils Percent Auto 0.4 % (0.2-1.2); Eosinophils Absolute Auto 0.2 K/mm3 (0-0.3); Eosinophils Percent Auto 1.4 % (0-4.4); Hematocrit 37.5 % (37.0-47.0); Hemoglobin 10.6 g/dL (12.0-15.0); Immature Granulocyte Absolute 0.76 K/mm3 (0.00-0.031); Immature Granulocyte Percent A 4.8 % (0-0.5); Lymphocytes Percent Auto 13.9 % (18.3-44.2); Mean Corpuscular HGB Conc 28.3 g/dl (32-36); Mean Corpuscular Hemoglobin 26.1 pg (26-34); Mean Corpuscular Volume 92.4 fl (80-100); Mean Platelet Volume 9.4 fl (7.4-10.4); Monocytes Absolute Auto 1.1 K/mm3 (0.1-0.6); Monocytes Percent Auto 6.7 % (2.6-8.5); Neutrophils Absolute Auto 11.6 K/mm3 (1.3-6.7); Neutrophils Percent Auto 72.8 % (45.5-73.1); Platelet Count Result 333 k/mm3 (150-375); Red Blood Count 4.06 M/mm3 (4.2-5.4); Red Cell Distribution Width 15.2 % (11.5-14.5); White Blood Count 15.9 K/mm3 (4.5-10.0)
[2025-01-09 07:25] LABS: Anion Gap 8 mmol/L (4-12); Blood Urea Nitrogen 24 mg/dL (7-17); Calcium 9.2 mg/dL (8.4-10.2); Carbon Dioxide 34 mmol/L (22-30); Chloride 95 mmol/L (98-107); Estimated CRCL calculation 52 ml/min; Estimated Glomerular Filt Rate 44; Glucose 146 mg/dL (65-110); Potassium 3.8 mmol/L (3.4-5.0); Sodium 137 mmol/L (137-145)
[2025-01-09] MEDS: BUDESONIDE RESPULE NEB 0.5 MG/2 ML AMP INHALATION ×2 (07:41→21:11)
[2025-01-09] MEDS: IPRATROPIUM BR 0.02% INH SOLN 0.5 MG/2.5 ML VIAL INHALATION ×4 (07:41→21:11)
[2025-01-09] MEDS: LEVALBUTEROL NEB 1.25 MG/3 ML 0.63 MG INHALATION ×3 (07:41→21:11)
[2025-01-09 08:14] LABS: Hypochromasia 1+; Platelet Estimate Adequate (Adequate); Schistocytes None Seen
[2025-01-09] MEDS: DULoxetine HCL 20 MG CAPSULE.DR 40 MG PO ×2 (08:26→16:47)
[2025-01-09] MEDS: ESCITALOPRAM OXALATE 10 MG TABLET 20 MG PO (08:26)
[2025-01-09] MEDS: BENZONATATE 100 MG CAPSULE 200 MG PO ×3 (08:26→16:47)
[2025-01-09] MEDS: ENOXAPARIN 40 MG/0.4 ML SYRINGE SUB-Q (08:26)
[2025-01-09] MEDS: guaiFENesin 12 HR 600 MG TABCR 1200 MG PO ×2 (08:27→19:59)
[2025-01-09] MEDS: FERROUS SULFATE 325 MG TABLET DR BY MOUTH ×2 (08:27→16:47)
[2025-01-09] MEDS: TOPIRAMATE 100 MG TABLET 200 MG PO ×2 (08:27→19:59)
[2025-01-09] MEDS: FUROSEMIDE 40 MG TABLET PO ×2 (08:27→16:47)
[2025-01-09] MEDS: PANTOPRAZOLE 40 MG TABLET PO ×2 (08:27→20:00)
[2025-01-09] MEDS: MONTELUKAST SODIUM 10 MG TABLET PO (08:27)
--- NOTE | 2025-01-09 10:10 | P.PNIM_ITS ---
Progress Note: A&P Assessment and Plan (1) Acute exacerbation of chronic obstructive pulmonary disease: Code(s): J44.1 - Chronic obstructive pulmonary disease with (acute) exacerbation Status: Acute Assessment and Plan: Has been on oxygen for over 5 years. 50 pack year hx tobacco use, quit 08/23/2022. Home meds: Trelegy, montelukast 10, albuterol PRN Was intitially on Bipap, 5/10 abg worse on bipap 15/5,28%. will use 20/5, 32% tonight with repeat abg in am and apnea link overnight. --stopped solumedrol and started prednisone 40 mg po. Pulm continues to follow --Pulmonology following, appreciate recommendations: Could not tolerate bipap but tolerating noninvasive ventillation with AVAPs Awaiting pulm recs today (2) Iron deficiency anemia: Code(s): D50.9 - Iron deficiency anemia, unspecified Status: Chronic Assessment and Plan: * Continue home meds once they are confirmed. * Monitor and trend CBC. (3) Atrial fibrillation: Code(s): I48.91 - Unspecified atrial fibrillation Status: Chronic Assessment and Plan: Held amiodarone 200mg daily, metoprolol 100mg BID due to Possible Amiodarone t oxicity and COPD worsening with Metoprolol * Rate controlled, decreased metoprolol to 50mg BID yesterday, pulmonary holding amiodarone for concern for subacute amiodarone toxicity Cardiology following (4) Acute on chronic congestive heart failure: Code(s): I50.9 - Heart failure, unspecified Status: Chronic Assessment and Plan: * Chronic heart failure * Last ECHO showing normal LVSF w/EF of 60-65% on 12/02/24. * Daily weight * Accurate Intake and output * stable (5) Insomnia: Code(s): G47.00 - Insomnia, unspecified Status: Acute Assessment and Plan: insomnia- melatonin doesnot help much added trazadone 12/29- helped-will continue avoid atarax - 01/03 wants dose increase as did not help much last night -will increase to 150 mg and monitor (6) Hallucination: Code(s): R44.3 - Hallucinations, unspecified Status: Acute Assessment and Plan: Reports shadows/smoke in her vision intermittently, has noticed when she has a UTI in the past. Intermittent, but started about [address] no acute fidnings. 01/01 UA negative (7) Thyroid nodule: Code(s): E04.1 - Nontoxic single thyroid nodule Status: Acute Assessment and Plan: CT Chest showed a large left thyroid nodule, increased in size since 2022, 3.5cm mass --Check TSH --following with endocrinology outpatient for thyroid mass (8) Weakness: Code(s): R53.1 - Weakness Status: Acute Assessment and Plan: Patient reports cardiac arrest 3 years ago that required CPR. Subsequently had lower extremity weakness and noticed jerking movements to lower extremities. Cardiac arrest was in the setting of renal failure but records are not available. Reports gradually increased weakness and associated with myalgias. Differential includes deconditioning, autoimmune, paraneoplastic, steroid related --Check VIRIDIANA, TSH, CK, aldolase --PT/OT Plan DVT prophylaxis on Sq Lovenox Awaiting Pulmonology clearance for discharge Subjective Date/time seen: 01/09/25 10:10 Interval history: Comfortable at bedside abg this morning showded pCO2 67.3 awaiting pulmonology recs todya Review of Systems Review of Systems: All systems reviewed & are unremarkable except as noted in HPI and below Exam Narrative: General - Awake and alert. No acute distress Eyes - PERRLA, EOM intact ENT - No thrush, No erythema Neck - No noticeable or palpable swelling Lymph Nodes - No lymphadenopathy Cardiovascular - RRR no m/r/g, no JVD Lungs: Decreased, No wheezing, use of accessory muscles, no crackles Skin - Skin warm and dry, no wounds or rashes Abdomen - Normal bowel sounds, abdomen soft and nontender Extremities - No edema, cyanosis or clubbing Musculoskeletal - 2/5 strength lower extremities, normal range of motion, no swollen or erythematous joints. Neurological ? Alert and oriented x 3, CN 2-12 grossly intact. Psych: Normal mood and affect Const: General: comfortable Other: Obese, somnolent HENMT: Face/Nose/Sinus: Normal nares present Mouth: Yes dry mucous membranes Eyes: General: appearance normal, both eyes and all related structures Sclera: sclerae normal Pupils: Equal, round and reactive pupils present EOM: EOMs intact bilaterally Neck: Neck: supple and no JVD Lymphatic: lymphadenopathy not noted Chest: Other: not tender Resp: Effort & Inspection: abnormal respiratory effort (Increased effort) Auscultation: diminished lung sounds bilateral (Bases) Other: scattered wheezing Cardio: Rate: regular rate Rhythm: regular rhythm Heart sounds: no gallops, no murmurs and no rubs GI: Inspection: non-distended Auscultation: normal bowel sounds Skin: General skin exam: No normal color (pale), No lesion and No rashes Lesions: no lesions noted Rashes: no rashes noted Wounds: no wounds Neuro: Cranial nerves: Yes Equal, round and reactive pupils present Speech: normal speech Motor exam (neuro): Abnormal motor strength present (Generalized weakness) Extrem: General: edema Other: BLE edema. Not pitting Psych: Mental Status: mental status grossly normal Affect: normal affect Objective Data Vital Signs Vital Signs: Vital Signs - 24 hr 01/08/25 14:00 01/08/25 14:17 01/08/25 14:17 Temperature Pulse Rate 102 H 85 85 Respiratory Rate 20 20 Blood Pressure 117/74 Pulse Oximetry 90 94 Oxygen Delivery Nasal Cannula Oxygen Flow Rate 2 Fraction of Inspired Oxygen 01/08/25 14:40 01/08/25 19:59 01/08/25 20:00 Temperature 97.8 F Pulse Rate 92 110 H 105 H Respiratory Rate 20 20 20 Blood Pressure 111/78 Pulse Oximetry 96 96 Oxygen Delivery Nasal Cannula Oxygen Flow Rate 2 Fraction of Inspired Oxygen 28 01/08/25 20:00 01/08/25 20:16 01/08/25 20:19 Temperature Pulse Rate 105 H 92 92 Respiratory Rate 20 20 Blood Pressure Pulse Oximetry 96 Oxygen Delivery Nasal Cannula Oxygen Flow Rate 2 Fraction of Inspired Oxygen 01/08/25 20:44 01/09/25 00:00 01/09/25 04:00 Temperature Pulse Rate 93 88 93 Respiratory Rate 20 Blood Pressure Pulse Oximetry Oxygen Delivery Oxygen Flow Rate Fraction of Inspired Oxygen 01/09/25 05:30 01/09/25 07:41 01/09/25 07:41 Temperature 97.7 F Pulse Rate 96 101 H Respiratory Rate 20 20 Blood Pressure 117/51 L Pulse Oximetry 93 96 Oxygen Delivery Nasal Cannula Oxygen Flow Rate 3 Fraction of Inspired Oxygen 32 01/09/25 08:00 01/09/25 08:02 01/09/25 08:05 Temperature Pulse Rate 102 H 98 Respiratory Rate 20 Blood Pressure Pulse Oximetry 96 Oxygen Delivery Nasal Cannula Oxygen Flow Rate 2 Fraction of Inspired Oxygen Intake/Output Intake/Output: Intake & Output 01/06/25 01/07/25 01/08/25 01/09/25 23:59 23:59 23:59 23:59 Intake Total 4510 4660 3340 590 Output Total 5850 5150 2900 1200 Balance -1340 -490 440 -610 Meds/Results Medications: Active Medications Generic Name Dose Route Start Last Admin Trade Name Freq PRN Reason Stop Dose Admin Hydrocodone Bitart/Acetaminophen 1 tab 12/31/24 09:42 12/31/24 10:10 Hydrocodone/Acetaminophen (*Crx) 5-325 Mg Tablet PO 1 tab Q4H PRN Administration Pain Rated 4-6 Amitriptyline HCl 10 mg 12/28/24 21:00 01/08/25 20:03 Amitriptyline Hcl 10 Mg Tablet PO 10 mg HS YODIT Administration Benzonatate 200 mg 01/03/25 09:00 01/09/25 08:26 Benzonatate 100 Mg Capsule PO 200 mg TID YODIT Administration Budesonide 0.5 mg 01/06/25 08:00 01/09/25 07:41 Budesonide Respule Neb 0.5 Mg/2 Ml Amp INHALATION 0.5 mg Q12HRT YODIT Administration Duloxetine HCl 40 mg 12/28/24 17:00 01/09/25 08:26 Duloxetine Hcl 20 Mg Capsule.Dr PO 40 mg BID YODIT Administration Enoxaparin Sodium 40 mg 01/07/25 09:00 01/09/25 08:26 Enoxaparin 40 Mg/0.4 Ml Syringe SUB-Q 40 mg DAILY YODIT Administration Escitalopram Oxalate 20 mg 12/28/24 15:30 01/09/25 08:26 Escitalopram Oxalate 10 Mg Tablet PO 20 mg DAILY YODIT Administration Ferrous Sulfate 325 mg 12/28/24 17:00 01/09/25 08:27 Ferrous Sulfate [address] BY MOUTH 325 mg BID YODIT Administration Furosemide 40 mg 01/05/25 17:00 01/09/25 08:27 Furosemide 40 Mg Tablet PO 40 mg BID YODIT Administration Guaifenesin 1,200 mg 12/28/24 21:00 01/09/25 08:27 Guaifenesin 12 Hr 600 Mg Tabcr PO 1,200 mg Q12HR YODIT Administration Ipratropium [place] 0.5 mg 01/08/25 14:00 01/09/25 07:41 Ipratropium Br 0.02% Inh Soln 0.5 Mg/2.5 Ml Vial INHALATION 0.5 mg Q6HRT YODIT Administration Levalbuterol HCl 0.63 mg 01/08/25 14:00 01/09/25 07:41 Levalbuterol Neb 1.25 Mg/3 Ml INHALATION 0.63 mg Q6HRT YODIT Administration Lidocaine 1 patch 12/31/24 11:55 01/09/25 08:28 Lidocaine 5% Patch TRANSDERM Not Given DAILY YODIT Magnesium Hydroxide 30 ml 12/28/24 14:40 Magnesium Hydroxide Susp 30 Ml Udc PO HS PRN Constipation Melatonin 5 mg 12/28/24 14:40 01/08/25 20:06 Melatonin 5 Mg Tablet PO 5 mg HS PRN Administration Insomnia Montelukast Sodium 10 mg 12/29/24 09:00 01/09/25 08:27 Montelukast Sodium 10 Mg Tablet PO 10 mg DAILY YODIT Administration Pantoprazole Sodium 40 mg 12/28/24 21:00 01/09/25 08:27 Pantoprazole 40 Mg Tablet PO 40 mg Q12HR YODIT Administration Quetiapine Fumarate 25 mg 12/28/24 21:00 01/08/25 20:03 Quetiapine Fumarate 25 Mg Tablet PO 25 mg HS YODIT Administration Ropinirole HCl 4 mg 12/28/24 21:00 01/08/25 20:03 Ropinirole Hcl 1 Mg Tablet PO 4 mg HS YODIT Administration Topiramate 200 mg 12/28/24 21:00 01/09/25 08:27 Topiramate 100 Mg Tablet PO 200 mg Q12HR YODIT Administration Trazodone HCl 50 mg 12/28/24 21:00 01/08/25 20:03 Trazodone Hcl 50 Mg Tablet PO 50 mg HS YODIT Administration Trazodone HCl 150 mg 01/03/25 13:16 01/08/25 20:06 Trazodone Hcl 50 Mg Tablet PO 150 mg HS PRN Administration Insomnia Radiology Results: ITS Impressions Chest X-Ray 01/02/25 09:39 IMPRESSION: 1. Increasing opacities in the right mid and bilateral lower lung zones which could represent worsening atelectasis or pneumonia. Modified Barium Swallow 01/03/25 15:10 IMPRESSION: Patient tolerated regular consistency oral feedings in the upright position. Please correlate with speech pathologist findings and specific feeding recommendations. Chest CT 01/05/25 17:10 IMPRESSION: 1. Mild emphysema with right upper lobe pneumonia. 2. 3.5 cm left thyroid mass. Labs Labs: Laboratory Results - last 24 hr 01/09/25 01/09/25 05:09 06:54 WBC 15.9 H RBC 4.06 L Hgb 10.6 L Hct 37.5 MCV 92.4 MCH 26.1 MCHC 28.3 L RDW 15.2 H Plt Count 333 MPV 9.4 Immature Gran % (Auto) 4.8 H Neut % (Auto) 72.8 Lymph % (Auto) 13.9 L [place] % (Auto) 6.7 Eos % (Auto) 1.4 Baso % (Auto) 0.4 Lymph # (Auto) 2.20 [place] # (Auto) 1.1 H Eos # (Auto) 0.2 Baso # (Auto) 0.1 Abs Immat Gran (auto) 0.76 H Absolute Neuts (auto) 11.6 H Absolute Nucleated RBC 0.000 Band Neutrophils % Not Reportable Nucleated RBC % 0.0 Platelet Estimate Adequate Hypochromasia 1+ Schistocytes None seen Puncture Site Right brachial ABG pH 7.352 ABG pCO2 67.3 H* ABG pO2 76.2 L ABG PO2/FiO2 Ratio 2.12 ABG HCO3 36.5 H ABG O2 Saturation 94.2 L ABG O2 Content 15.8 L ABG Base Excess 8.8 A-a Gradient 102.4 Oxyhemoglobin 94.1 Total Hemoglobin 11.9 L O2 Delivery Device Nasal cannula O2 Liters/Min 4.0 FiO2 36 Sodium 137 Potassium 3.8 Chloride 95 L Carbon Dioxide 34 H Anion Gap 8 BUN 24 H Creatinine 1.23 H Estim Creat Clear Calc 52 Estimated GFR 44 L Glucose 146 H Calcium 9.2 Quality VTE Prophylaxis VTE prophylaxis: mechanical ordered
--- NOTE | 2025-01-09 10:50 | P.PNPL_ITS ---
Progress Note: A&P Assessment and Plan (1) Chronic obstructive pulmonary disease: Code(s): J44.9 - Chronic obstructive pulmonary disease, unspecified Status: Chronic Assessment and Plan: Regarding her COPD, 50 pack year tobacco use, quit 08/23/2022, alpha 1 anti trypsin genotype MZ, alpha 1 anti trypsin level 134, normal. The patient has been on oxygen for the last 5 years. I have no PFTs. She is using 5 L at rest with home saturations 92-96%. First CT scan in our system is from 08/27/2022 shows mild apical predominant centrilobular emphysema. Repeat CT angiogram of the chest on 12/02/2024 demonstrates mild apical predominant centrilobular emphysema. Patient is maintained on trelegy inhaler but she does not use a because of the taste. Patient takes Trelegy 100, montelukast 10 and albuterol p.r.n.. Patient tells me she wheezes every day when she takes rescue albuterol at home it relieves her wheezing for 1-2 minutes. 12/01/2024: White blood cell count 14.8, eosinophils 0.6%= 89 per micro L. patient presents with shortness of breath, no change in phlegm production or color, worsening shortness of breath and hypoxemic respiratory failure. Patient treated with bronchodilators, steroids and BiPAP. 12/28/24: The patient tells me that the day after she left the hospital she started getting worse with fatigue and then worsening oxygenation about 5 days ago. On her prescribed 2 L her saturations were in the 80s and then as low as 79%. She denied fever, chills, rigors. She had a dry cough with no phlegm and no hemoptysis. Currently says she is improved and breathing 50% back to her normal but she feels still feels tired and short of breath. The patient told me she had improved and could come off of the mask and she was placed on 3 L nasal cannula with saturations 91% Plan: Will continue treatment for possible COPD exacerbation. Patient has wheezing but has wheezing every day. I will decrease her Solu-Medrol to 20 mg IV q.6 hours. Continue DuoNebs q.6 hours. Patient is on levofloxacin for possible pneumonia and bronchitis. I will obtain a D-dimer and if positive will get a CT angiogram of the chest. If negative will get a CT scan of the chest looking for focal infiltrates consistent with a pneumonia. Goal saturation 90- 94%, Adjust oxygen accordingly. Will add guaifenesin 1200 mg p.o. b.i.d. Later in the day patient had a CT scan of the chest with moderate apical predominant centrilobular emphysema and bibasilar atelectasis with no evidence of pneumonia. 12/29/2024: Patient states she had a bad night and his breathing worse today. Her cough is increased with no phlegm and no blood. She is afebrile. White blood cell count 15.2, creatinine 1.61. Currently patient is on 4 L nasal cannula saturations 94%. Patient received a Xopenex treatment and had a heart rate 160 that decreased on its own and required no medical intervention. Plan: I will continue Solu-Medrol 20 mg IV q.6. I will discontinue her levalbuterol due to the tachy arrhythmia increase her ipratropium nebulizers to q.4 hours. No evidence of pneumonia. Will treat for tracheobronchitis with Levaquin 750 mg p.o. q.48h, day 2. Continue guaifenesin 12 50 b.i.d., montelukast 10. Patient is on Lasix 20 p.o. b.i.d.. 12/30/24: Patient tells me she is having a better day today. She says that her breathing is 75% back to her normal. Her cough is improved but increased from baseline. She has no phlegm and no hemoptysis. She is afebrile. Her weight today is 112.7 kg. Patient wore the hospital noninvasive ventilator with the AVAPS mode and said that she slept well. Plan: I will change the patient to prednisone 40 mg p.o. q.day, Day 3 of steroids. I will continue ipratropium nebulizers q.4 hours. Continue montelukast 10 q day and guaifenesin 1200 p.o. b.i.d.. continue Levaquin for tracheobronchitis, day 3. Encouraged her out of bed to chair, ambulation as tolerated, physical therapy has been ordered on 12/29/2024. Respiratory path ogen panel, urine Legionella, urine pneumococcal antigen pending. pulmonary inpatient services will resume on 01/02/2025, call with questions. 01/03/2024 patient states that she is breathing 75% back to her normal. Her dyspnea on exertion is back at her normal. His cough is persistent but improved. She is afebrile. White blood cell count 14.1, creatinine 1.46. Her weight is 114. Her currently the patient is on 3 L with saturation 95%. Patient wore the hospital BiPAP with a rate of 20 pressures 20/5 and 32% FiO2 and said that she could not sleep last night because the pressure was too high and the machine had a loud leak and kept her up. BNP 859 which is increased from 563. Continue Lasix 20 p.o. b.i.d.. Plan: Patient continues to improve. Today is day 6 of prednisone and will discontinue after today's dose. Continue ipratropium q.4 hours. Patient is on Levaquin day 6. She is on ceftriaxone day 2 for UTI. Goal saturation 90- 94%, adjust oxygen accordingly. 01/04/2024: Patient tells me she is breathing worse today. She says her cough is more persistent and heavier, remains dry with no phlegm. Her breathing is worse. She is able to walk with physical therapy yesterday and did well. White blood cell count 15.7, creatinine 1.42. Respiratory pathogen panel is negative. Plan. Patient worse today and will restart prednisone 40. Her respiratory pathogen panel is negative. I will obtain a modified barium swallow. Will begin Tessalon Perles 200 t.i.d. standing. Will start levalbuterol 0.63 mcg q.4 hours to see if this will provide some relief. Patient remains on Lasix 20 p.o. b.i.d. she is status post 7 days of levofloxacin and now on ceftriaxone for UTI, day 2. Continue guaifenesin 1200 q.12 hours, Vest therapy, montelukast. Patient is on metoprolol 100 q.12 hours as well as amiodarone 200, Later in the day patient had a modified barium swallow with no evidence of aspiration. 01/05/2024: Patient tells me she is breathing better today. Her cough persists but is better. Her shortness of breath and wheezing persists. She is afebrile. her weight today is 117.4 kg, yesterday she was 1.4 L positive on Lasix 20 p.o. b.i.d.. Plan: Patient had just received vest therapy as well as a nebulized treatment and she still had diffuse wheezing. Overall she is no better after 8 days of steroids, course of levofloxacin and now on ceftriaxone, bronchodilators, Lasix, montelukast and guaifenesin. Last admission on 12/02/2024 patient had AFib with RVR and her metoprolol was increased from 25 XL a day to 100 p.o. b.i.d. and she was started on amiodarone. She tells me she has had persistent symptoms since then. I have placed a hold on the metoprolol and amiodarone. Discussed with Lesley Rock and she will consult Cardiology regarding AFib management. 01/05/25: Overall the patient states that her breathing remains compromised but about the same as yesterday. Her cough has improved and she has no phlegm. Her dyspnea on exertion is the same. Currently she is on 3 L nasal cannula saturations 95%. I decreased her to 2 L. Her white blood cell count is 16.1, creatinine is 1.46. She is positive 3 L yesterday and 4.1 L since admission. Her weight is 117.2 kg her BNP is 614 which is improved from 859 on 01/02/2025. Plan: Patient has not improved. Continue prednisone 40 mg p.o. q.day, day 9, then discontinue. nebulized ipratropium and levalbuterol q.4 hours, montelukast 10, guaifenesin 1200 p.o. b.i.d.. Completed levofloxacin for 7 days and now on ceftriaxone for UTI day 5. I will order CT scan of the chest today. Will try Lasix 40 p.o. b.i.d. to see if she improves with diuresis. Metoprolol and amiodarone have been held since 01/04. Cardiology consult obtained yesterday and appreciate their very detailed and thoughtful consult. Regarding the amiodarone, I agree with her consult note regarding chronic amiodaarone toxicity but I am more worried about a subacute reaction to amiodarone rather than chronic amiodarone lung toxicity. Since patient still has respiratory distress I recommend discontinuation of amiodarone at this time. Later in the day patient had a CT scan of the chest with mild apical predominant centrilobular emphysema, small area of atelectasis versus infiltrate posterior segment right upper lobe. There is no pleural disease, interstitial lung disease, masses, or nodules. 01/06/25: patient tells me she is breathing a little bit better today. She is able to take deeper breaths. Her dry cough persists. She has no phlegm or hemoptysis. She is afebrile. White blood cell count 18.4, creatinine 1.42. Patient is on 2 L nasal cannula saturations 94%. I turned her to room air and after 4 minutes her saturations decreased to 88% and I turned her back to 1 L and her saturations were 92%. Yesterday she diuresed 2.4 L and cumulative she is positive 1.3 L since admission. Her weight today is 119 kg. Plan: overall patient is a little bit better today. She has received 9 days of prednisone and I will discontinue today. I will add nebulized budesonide 500 b.i.d. and continued ipratropium and levalbuterol nebulizers q.4 hours, montelukast 10, guaifenesin 1200. Patient Has completed 7 days of levofloxacin, last dose 01/03/2025, is on ceftriaxone for UTI day 6 an doxycycline started on 01/06/2025. She has no clinical evidence of pneumonia. will check procalcitonin. Continue Lasix 40 p.o. b.i.d.. walked 120 ft and rested once, required 4 L to maintain saturations 89-90% 01/07/25: overall the patient tells me that her breathing is pretty good. She has a cough And states this is not the deep painful cough anymore with no phlegm or hemoptysis. She is afebrile. White blood cell count 15.1, creatinine 1.37, on 2 L nasal cannula saturations are 93%. Patient use a hospital noninvasive ventilation with the AVAPS mode and 32% FiO2 and tolerated this well. diurese 2.4 L yesterday cumulative she is positive 1.3 L since admission. Her weight today is 119 kilos. Wheezes unchanged. Plan: Patient is stable off of prednisone for 48 hours. She requests to continue levalbuterol and ipratropium q.4 hours. continue budesonide nebulizers. Continue montelukast, Tessalon Perles 200 t.i.d. , guaifenesin 1200 b.i.d., and Lasix 40 IV b.i.d. 01/08/25: overall the patient tells me that her breathing is pretty good. She has a cough And states this is not the deep painful cough anymore with no phlegm or hemoptysis. She is afebrile. White blood cell count 15.1, creatinine 1.37, on 2 L nasal cannula saturations are 93%. Patient use a hospital noninvasive ventilation with the AVAPS mode and 32% FiO2 and tolerated this well. diurese 2.4 L yesterday cumulative she is positive 1.3 L since admission. Her weight today is 119 kilos. Wheezes unchanged. Plan: Patient is stable off of prednisone for 3 days. she has some body tremors and will decrease levalbuterol and ipratropium from q.4 hours to Q 6 hours. Continue budesonide nebulizers. Continue montelukast, Tessalon Perles 200 t.i.d. , guaifenesin 1200 b.i.d., and Lasix 40 IV b.i.d. 01/09/25: Patient tells me her breathing is stable.. She has a unchanged cough. She is afebrile. White blood cell count 15.9, creatinine 1.23, on 2 L nasal cannula saturations are 94%. Patient Slept with 4 L nasal cannula overnight and said that she did okay. ABG off of AVAPS for 24 hours 7.35//76. Overnight oximetry on 4 L with recording duration 6 hours and 48 minutes, average saturation 94%. Low saturation 88%. Time with saturation less than or equal to 88% was 0 minutes. Oxygen desaturation index 1.7. Positive 440 mL yesterday. Cumulative she is positive 585 since admission. Her weight today is 116.6. Wheezes unchanged. Plan: Patient is stable off of prednisone for 4 days. tremors mildly better on levalbuterol and ipratropium Q 6 hours. Continue budesonide nebulizers. Continue montelukast, Tessalon Perles 200 t.i.d. , guaifenesin 1200 b.i.d., Protonix 40 b.i.d., and Lasix 40 IV b.i.d. I will add loratadine 10 mg p.o. q.day as patient says she has sinus congestion and allergies uncontrolled with the montelukast. Discussed with Dr. Crawford. Will follow with you. (2) Chronic hypercapnic respiratory failure: Code(s): J96.12 - Chronic respiratory failure with hypercapnia Status: Acute Assessment and Plan: Last admission 12/02/2024 to 12/08/2024) patient presented with hypercarbic respiratory failure with ABG 7.33/65/103 and serum bicarb > 40. 12/28/2024: She again presents with shortness of breath, hypoxemic and hypercarbic respiratory failure. Current venous blood gas listed as room air 7.33/72/ 43. Patient has chronic hypercarbic respiratory failure from her COPD with a room air blood gas of 7.33/72/43 (venous) and a serum bicarbonate greater than 37. She would benefit from a noninvasive ventilation as this is her 2nd hospitalization in the last month for hypercarbic respiratory failure. noninvasive ventilation would prevent further hospitalizations and deterioration. Patient was placed on BiPAP With no rate and pressures 15/5 with 28% with blood gas of 7.37/64/69. Patient was then placed on BiPAP with no rate and pressure 20/5 and 32% with a blood gas of 7.38/64/74. ApneaLink on these settings demonstrated adequate oxygenation. Patient was then placed on BiPAP rate of 20 pressures 20/5 and she said she could not tolerate these settings as it was too much pressure, high leak and she could not sleep at night. I will initiate the process for a home noninvasive ventilator with the AVAPS mode through her [employer] company, [facility] will [facility]. The patient told me she had improved and could come off of the mask and she was placed on 3 L nasal cannula with saturations 91% 12/28/24: Currently the patient is on BiPAP rate of 18, pressures 14/8 with 40% FiO2. Patient told me these settings were uncomfortable for her and I changed them to noninvasive ventilation with the AVAPS mode rate of 14, tidal volume 500, EPAP 5, minimal inspiratory pressure 6, maximal inspiratory pressure 25, inspiratory time 1.0, rise of 1 which is the fastest and 40% FiO2. She said this was more comfortable. The patient told me she had improved and could come off of the mask and she was placed on 3 L nasal cannula with saturations 91%. Plan: noninvasive ventilation with the AVAPS mode p.r.n. during the day. I recommend she wear this tonight. After she has improved will repeat ABG during the day. 12/29/24: Patient attempted to wear the fullface mask with the AVAPS settings as above and she did wear the mask but she could not sleep. plan: Patient says she will try to wear the AVAPS again tonight. I told her if she can not sleep with the mask on that she needs to take the mask off so that she can try to sleep. 12/30/24: Patient wore the hospital noninvasive ventilator with the AVAPS mode and said that she slept well. Plan: Patient tells me she still requires breathing support at night. If the patient qualifies for ventilatory support with a home machine it will need to be BiPAP with no rate. Tonight will place the patient on BiPAP no rate, pressures 15/5 and 28% FiO2 with overnight oximetry and ABG in the morning. 12/31/24: Patient wore a hospital BiPAP with no rate pressures 15/5 with 28% with blood gas the next morning 7.37/64/69 and overnight oximetry with hypoxia. 01/02/2024: Patient wore the hospital BiPAP with no rate pressures 20/5 with 32% a blood gas of 7.38/64/74 and overnight oximetry with adequate saturations. 01/03/2024 Patient wore the hospital BiPAP with a rate of 20 pressures 20/5 and 32% FiO2 and said that she could not sleep last night because the pressure was too high and the machine had a loud leak and kept her up. Plan: I will place the patient on noninvasive ventilation with the AVAPS mode rate of 14, tidal volume 500, EPAP 5, minimum inspiratory pressure 6, maximum inspiratory pressure 25, inspiratory time 1.0, rise of 1 and 32% FiO2. I will obtain an overnight oximetry and ABG on these settings. I will initiate home noninvasive ventilation through [facility] and her insurance [facility]. Later in the day filled out a home noninvasive ventilator form for Rene through [facility] insurance for IVAPS with AE: Rate 14, tidal volume 500, minimum EPAP 5, maximum EPAP 15, minimum pressure support 6, maximum pressure support 25, 3 L bleed in. 01/03/25: Patient wore the hospital machine BiPAP rate of 20, pressures 20/5, inspiratory time 1, rise of 3 and 32% FiO2. She said she had a difficult time sleeping in the mask did not fit with a large leak. Overnight oximetry on these settings with recording duration of 7 hours and 40 minutes, average saturation 94%. Low saturation 63%. Time with saturation less than or equal to 88% 6 minutes, oxygen desaturation index 5.1. ABG 7.36/55/78. Plan: Waiting to hear back from his DME [employer] regarding a home machine. tonight AVAPS mode rate of 14, tidal volume 500, EPAP 5, minimum inspiratory pressure 6, maximum inspiratory pressure 25, inspiratory time 1.0, rise of 1 and 32% FiO2. I will obtain an overnight oximetry and ABG on these settings. 01/04/25: Patient could not tolerate the BiPAP but does tolerate noninvasive ventilation with the AVAPS mode. She used the hospital noninvasive ventilator with the AVAPS mode rate of 14, tidal volume 500, EPAP 5, minimal inspiratory pressure 6, maximal inspiratory pressure 25, I-time 1.0, rise of 1 and 32% FiO2. Patient said she slept well and could tolerate this machine. There was no leak. Patient had an overnight oximetry on these settings with recording duration of 6 hours and 56 minutes, average saturation 95%, low saturation 89%, time with saturation less than or equal to 88% was 0 minutes, oxygen desaturation index 2.1. ABG prior to removal was 7.35/53/85. Plan: Current noninvasive ventilation with the AVAPS mode provide adequate ventilation and oxygenation. Waiting to hear from [facility] regarding home noninvasive ventilation approval. 01/05/25: patient tells me she wore the hospital noninvasive ventilation with the AVAPS mode last night and slept well. Plan: Patient has been denied a noninvasive ventilator by [facility], her insurance company. This has been of relate to us verbally and we are waiting for the formal denial. Once this is in place will obtain a phone number for a peer to peer review. While she is in the hospital continue hospital noninvasive ventil ator with 32% FiO2. 01/06/2025: Patient wore the hospital noninvasive ventilator with the AVAPS mode fullface mask and said she slept well and tolerated this. Plan: Patient's request for noninvasive ventilation was denied by [facility]. They requested a peer to peer. I spent the last 50 minutes trying to complete appear to peer process through the see phone number with the Case record for the p eer to peer review that I was given and was told this is the incorrect information. Peer to peer review was unsuccessful. Will contact [facility] again to try to get correct information. Attempted to perform peer to peer review for 50 minutes on the phone with various [facility] representatives without success. I talked to our clinical research manager will also try to coordinate this peer to peer. 01/07/25: Need to perform peer to peer review with [facility] representatives prior to discharge. 01/08/25: patient tolerated hospital noninvasive ventilation with the AVAPS mode and 32% FiO2. Feels she can go without the noninvasive ventilation tonight. Plan: Tonight the patient will wear 4 L nasal cannula and I will check an ABG at 8:00 a.m. tomorrow 24 hours off of the noninvasive ventilation to reassess her hypercarbic respiratory failure. I will obtain an overnight oximetry on 4 L nasal cannula. 01/09/25: Patient slept with 4 L nasal cannula overnight and said that she did okay. ABG off of AVAPS for 24 hours 7.35/67/76. Overnight oximetry on 4 L with recording duration 6 hours and 48 minutes, average saturation 94%. Low saturation 88%. Time with saturation less than or equal to 88% was 0 minutes. Plan: Off of noninvasive ventilation for 24 hours patient remains hypercarbic and requires noninvasive ventilation. Have spoken to child care education coordinator, outpatient clinical research manager and care coordination regarding arranging peer to peer review of her case prior to discharge. Waiting for this to be scheduled. Subjective Date/time seen: 01/09/25 10:50 Interval history: 12/28/2024: This is a new pulmonary consult for COPD exacerbation. 64-year-old with a history of AFib off anticoagulation for 2 years secondary to abdominal rectal sheath hematoma, diastolic dysfunction, GERD, HTN, restless legs syndrome, anxiety and COPD with chronic hypoxemic respiratory failure on 5 L at Night and 2 L with rest and activity per home O2 assessment on 12/08/2024. I previously saw the patient as an inpatient on 12/02/2024 when she was admitted for COPD exacerbation. Regarding her COPD, 50 pack year tobacco use, quit 08/23/2022, alpha 1 anti trypsin genotype MZ, alpha 1 anti trypsin level 134, normal. The patient has been on oxygen for the last 5 years. I have no PFTs. She is using 5 L at rest with home saturations 92-96%. First CT scan in our system is from 08/27/2022 shows mild apical predominant centrilobular emphysema. Repeat CT angiogram of the chest on 12/02/2024 demonstrates mild apical predominant centrilobular emphysema. Patient is maintained on trelegy inhaler but she does not use a because of the taste. Patient takes Trelegy 100, montelukast 10 and albuterol p.r.n.. Patient tells me she wheezes every day when she takes rescue albuterol at home it relieves her wheezing for 1-2 minutes. 12/01/2024: White blood cell count 14.8, eosinophils 0.6%= 89 per micro L. 12/02/2024 through 12/08/2024:? Presented to the emergency room with COPD exacerbation, hypercarbic and hypoxemic respiratory failure, AFib with RVR, and fluid overload.? Treated with BiPAP, steroids, bronchodilators, antibiotics, and diuretics.? CTA of the chest with no PE, mild apical predominant centrilobular emphysema, ?upper and lower extremity Dopplers negative for DVT.? Echocardiogram with LVEF 60-65%, RV was dilated with normal systolic function.? Left atrium normal, right atrium normal, RVSP 27. ?After she improved clinically on 12/06/2024: ABG on 5 L nasal cannula pH 7.39/48/97. ?Patient improved and was discharged on 12/08/24 on trelegy 100, rescue albuterol, montelukast 10, guaifenesin 600 b.i.d. p.r.n. congestion, no Lasix, amiodarone 200 b.i.d., metoprolol 100 q.12, she had completed 5 days of steroids in house and I did not recommend a discharge taper, however, the hospitalist discharge her on a 15 day prednisone taper. Required 2 L oxygen at rest and with activity per home O2 assessment and per overnight oximetry required 5 L NC when she naps or sleeps. ?12/08/24: creatinine 1.68. Her weight is 120.8 kg.? 12/28/2024: Presented to the emergency room with shortness of breath. blood pressure 136/117, heart rate 76, nasal cannula saturation 93%. Patient had wheezing throughout all lung paul. White blood cell count 13.4 with eosinophils 1.8%=241/ul. creatinine 1.34, serum bicarbonate 37, BNP 563. Venous blood gas listed as room air 7.33/72/ 43. patient placed on BiPAP, treated with bronchodilators, received IV steroids per EMS, lasix 40 IV. 12/28/24: Currently the patient is on BiPAP rate of 18, pressures 14/8 with 40% FiO2. Patient told me these settings were uncomfortable for her and I changed them to noninvasive ventilation with the AVAPS mode rate of 14, tidal volume 500, EPAP 5, minimal inspiratory pressure 6, maximal inspiratory pressure 25, inspiratory time 1.0, rise of 1 which is the fastest and 40% FiO2. She said this was more comfortable. The patient told me she had improved and could come off of the mask and she was placed on 3 L nasal cannula with saturations 91% The patient tells me that the day after she left the hospital she started getting worse with fatigue and then worsening oxygenation about 5 days ago. On her prescribed 2 L her saturations were in the 80s and then as low as 79%. She denied fever, chills, rigors. She had a dry cough with no phlegm and no hemoptysis. Currently says she is improved and breathing 50% back to her normal but she feels still feels tired and short of breath. Later in the day patient had a CT scan of the chest with moderate apical predominant centrilobular emphysema and bibasilar atelectasis with no evidence of pneumonia. 12/29/2024: Patient states she had a bad night and his breathing worse today. Her cough is increased with no phlegm and no blood. She is afebrile. White blood cell count 15.2, creatinine 1.61. Currently patient is on 4 L nasal cannula saturations 94%. Patient tempted to wear the fullface mask with the AVAPS settings as above and she did wear the mask but she could not sleep. Patient received a Xopenex treatment and had a heart rate 160 that decreased on its own and required no medical intervention. 12/30/24: Patient tells me she is having a better day today. She says that her breathing is 75% back to her normal. Her cough is improved but increased from baseline. She has no phlegm and no hemoptysis. She is afebrile. Her weight today is 112.7 kg. Patient wore the hospital noninvasive ventilator with the AVAPS mode and said that she slept well. 12/31/24: Patient wore a hospital BiPAP with no rate pressures 15/5 with 28% with blood gas the next morning 7.37/64/69 and overnight oximetry with hypoxia. 01/02/2024: Patient wore the hospital BiPAP with no rate pressures 20/5 with 32% a blood gas of 7.38/64/74 and overnight oximetry with adequate saturations. 01/03/2024 patient states that she is breathing 75% back to her normal. Her dyspnea on exertion is back at her normal. His cough is persistent but improved. She is afebrile. White blood cell count 14.1, creatinine 1.46. Her weight is 114. Patient wore the hospital BiPAP with a rate of 20 pressures 20/5 and 32% FiO2 and said that she could not sleep last night because the pressure was too high and the machine had a loud leak and kept her up. Later in the day filled out a home noninvasive ventilator form for [facility] through [facility] insurance for IVAPS with AE: Rate 14, tidal volume 500, minimum EPAP 5, maximum EPAP 15, minimum pressure support 6, maximum pressure support 25, 3 L bleed in. 01/04/2024: Patient tells me she is breathing worse today. She says her cough is more persistent and heavier, remains dry with no phlegm. Her breathing is worse. She is able to walk with physical therapy yesterday and did well. White blood cell count 15.7, creatinine 1.42. Respiratory pathogen panel is negative. Patient wore the hospital machine BiPAP rate of 20, pressures 20/5, inspiratory time 1, rise of 3 and 32% FiO2. She said she had a difficult time sleeping in the mask did not fit with a large leak. She cannot sleep with this machine. Overnight oximetry on these settings with recording duration of 7 hours and 40 minutes, average saturation 94%. Low saturation 63%. Time with saturation less than or equal to 88% 6 minutes, oxygen desaturation index 5.1. ABG 7.36/55/78. Levalbuterol and Tessalon Perles added. 01/05/2024: Patient tells me she is breathing better today. Her cough persists but is better. Her shortness of breath and wheezing persists. She is afebrile. her weight today is 117.4 kg, yesterday she was 1.4 L positive on Lasix 20 p.o. b.i.d.. She used the hospital noninvasive ventilator with the AVAPS mode rate of 14, tidal volume 500, EPAP 5, minimal inspiratory pressure 6, maximal inspiratory pressure 25, I-time 1.0, rise of 1 and 32% FiO2. Patient said she slept well and could tolerate this machine. There was no leak. Marleni alas had an overnight oximetry on these settings with recording duration of 6 hours and 56 minutes, average saturation 95%, low saturation 89%, time with saturation less than or equal to 88% was 0 minutes, oxygen desaturation index 2.1. ABG prior to removal was 7.35/53/85. Metoprolol and amiodarone held. walked 116 ft. 01/05/25: Overall the patient states that her breathing remains compromised but about the same as yesterday. Her cough has improved and she has no phlegm. Her dyspnea on exertion is the same. Currently she is on 3 L nasal cannula saturations 95%. I decreased her to 2 L. Her white blood cell count is 16.1, creatinine is 1.46. She is positive 3 L yesterday and 4.1 L since admission. Her weight is 117.2 kg her BNP is 614 which is improved from 859 on 01/02/2025. patient tells me she wore the hospital noninvasive ventilation with the AVAPS mode last night and slept well. Lasix 20 p.o. b.i.d. increased to Lasix 40 p.o. b.i.d. Last dose of prednisone 40 given. Later in the day patient had a CT scan of the chest with mild apical predominant centrilobular emphysema, small area of atelectasis versus infiltrate posterior segment right upper lobe. There is no pleural disease, interstitial lung disease, masses, or nodules. 01/06/25: patient tells me she is breathing a little bit better today. She is able to take deeper breaths. Her dry cough persists. She has no phlegm or hemoptysis. She is afebrile. White blood cell count 18.4, creatinine 1.42. Patient is on 2 L nasal cannula saturations 94%. I turned her to room air and after 4 minutes her saturations decreased to 88% and I turned her back to 1 L and her saturations were 92%. Yesterday she diuresed 2.4 L and cumulative she is positive 1.3 L since admission. Her weight today is 119 kg. Ventilator declined by insurance, attempted peer to peer for 50 minutes and was unable to schedule. walked 120 ft and rested once, required 4 L to maintain saturations 89-90% 01/07/25: overall the patient tells me that her breathing is pretty good. She has a cough And states this is not the deep painful cough anymore with no phlegm or hemoptysis. She is afebrile. White blood cell count 15.1, creatinine 1.37, on 2 L nasal cannula saturations are 93%. Patient use a hospital noninvas faheem ventilation with the AVAPS mode and 32% FiO2 and tolerated this well. diurese 2.4 L yesterday cumulative she is positive 1.3 L since admission. Her weight today is 119 kilos. Wheezes unchanged. 01/08/25: overall the patient tells me that her breathing is pretty good. She has a unchanged cough. She is afebrile. White blood cell count 16.5, creatinine 1.38, on 2 L nasal cannula saturations are 92%. Patient use a hospital noninvasive ventilation with the AVAPS mode and 32% FiO2 and tolerated this well. diurese 490 L yesterday cumulative she is positive 145 ml since admission. Her weight today is 116 kilos. BNP has improved to 271. Wheezes unchanged. 01/09/25: Patient tells me her breathing is stable.. She has a unchanged cough. She is afebrile. White blood cell count 15.9, creatinine 1.23, on 2 L nasal cannula saturations are 94%. Patient Slept with 4 L nasal cannula overnight and said that she did okay. ABG off of AVAPS for 24 hours 7.35/67/76. Overnight oximetry on 4 L with recording duration 6 hours and 48 minutes, average saturation 94%. Low saturation 88%. Time with saturation less than or equal to 88% was 0 minutes. Oxygen desaturation index 1.7. Positive 440 mL yesterday. Cumulative she is positive 585 since admission. Her weight today is 116.6. Wheezes unchanged. DATA: 01/05/25: EXAMINATION: CT diagnostic chest wo con INDICATION: RIGGINS, wheezing COMPARISON: 12/28/2024 FINDINGS: Mild emphysema. Small region with increased reticulonodular pattern at the posterior segment of the right upper lobe consistent with progression of pneumonia. Linear and bandlike atelectasis in the bilateral lower lobes and in the lingula. No pulmonary edema or pleural effusion. Heart size is normal. Atherosclerotic coronary artery calcium location and aortic valve calcification. Thoracic aorta normal in caliber. No pathologically enlarged thoracic lymphadenopathy. Again seen is a 3.5 cm mass extending posteriorly from the left thyroid lobe. Cholecystectomy clips at the gallbladder fossa. Moderate thoracic spondylosis. IMPRESSION: 1. Mild emphysema with right upper lobe pneumonia. 2. 3.5 cm left thyroid mass. 01/03/25: MODIFIED ESOPHAGRAM HISTORY: Coughing when swallowing TECHNIQUE: Modified barium esophagram was performed on 01/03/2025. I administered fluoroscopy and performed the exam with speech pathologist. Patient was seated for lateral fluoroscopic imaging for ingestion of thin liquids, pudding, solids and quantified amounts, followed by thin liquids in uncontrolled amounts. This was recorded on tape. A single fluoroscopic spot image was also recorded. The DAP for this procedure was 2.267 Gycm2. The amount of fluoroscopy time used during this procedure was 2.0 minutes. FINDINGS: Oral stage: Adequate function. Pharyngeal stage: Adequate function. Cervical/esophageal stage: Adequate function. IMPRESSION: Patient tolerated regular consistency oral feedings in the upright position. Please correlate with speech pathologist findings and specific feeding recommendations. 12/28/24: CT chest CLINICAL INDICATION: Pneumonia suspected clinically COMPARISON: Reference is made to plain film evaluation of the chest, performed approximately 12 hours earlier and dating back to 12/05/2024. Reference is also made to a CT angiogram of the chest dated 10/20/2022 FINDINGS/OBSERVATIONS: Lung: bibasilar atelectasis, unchanged from chest radiograph. The remainder the lungs are clear. HEART: The heart is borderline enlarged, without pericardial effusion. MEDIASTINUM: Redemonstration of a large left thyroid nodule, increased in size from 2022 examination. No pathologically enlarged or morphologically suspicious lymph nodes are identified within the mediastinum, bilateral axilla, within the soft tissues of the anterior chest wall. SOFT TISSUES OF THE CHEST: Unremarkable. BONES OF THE CHEST: No acute fracture. No lytic or blastic lesions are identified. IMPRESSION: No cross-sectional imaging evidence to suggest the presence of pneumonia. Bibasilar atelectasis, unchanged from a recent radiograph, as detailed above.. 12/08/2024: Home O2 assessment: Rest room air saturation 87%. Rest nasal cannula 1 L saturation 88%. Rest nasal cannula saturation 93%. Exercise nasal cannula 2 L saturation 94%. Patient requires 2 L with rest and with activity. 12/07/24: Patient had an overnight oximetry on 5 L nasal cannula with recording duration of 6 hours and 58 minutes. Average saturation 98%. Low saturation 95%. Time with saturation less than or equal to 88% was 0 minutes. Oxygen desaturation index 0. 12/06/2024: ABG on 5 L nasal cannula pH 7.39/48/97. ? 12/02/2024: Alpha 1 anti trypsin genotype ruthie LEWIS. 12/02/2024: Alpha 1 anti trypsin level 135, normal 83-199. 12/02/24: CTA chest PE protocol History: 64 years Female with . R/O PE . Findings: PULMONARY ARTERIES: No pulmonary embolus. VISUALIZED THORACIC INLET: Left thyroid nodule is noted. Ultrasound evaluation advised. MEDIASTINUM: Aorta/coronary arteries: Mild atheromatous disease. Heart/other: The heart is not enlarged. Lymph nodes: No mediastinal or hilar adenopathy. Precarinal lymph node measuring 1.6 cm noted. LUNGS: Atelectasis versus pneumonia seen in the right lung base inferiorly. Minimal atelectasis versus pneumonia in the left lung base is also noted. No pulmonary nodules or masses. No effusions. No pneumothorax. VISUALIZED UPPER abdomen: the visualized upper abdomen is normal. MUSCULOSKELETAL: Soft tissues: The superficial soft tissues are normal. Bones: Age appropriate degenerative changes of the spine. IMPRESSION: 1. No pulmonary embolism. 2. Bilateral basal atelectasis versus pneumonia. Clinical correlation advised. 12/02/2024: Echo Summary 1. The left ventricle is normal in size and systolic function. The left ventricular ejection fraction visually estimated to be 60-60%. 2. The right ventricle is dilated with normal systolic function. 3. There are no significant valvular abnormalities. 4. Technically difficult study. Left Ventricle The left ventricle is normal in size and systolic function. The left ventricular ejection fraction visually estimated to be 60-60%. Diastolic dysfunction is present. Right Ventricle The right ventricle is dilated with normal systolic function. Left Atria The left atrium is normal size. Right Atria The right atrium is normal size. RVSP 27 12/17/2023: CT Scan of the Chest without Contrast: Clinical Indication: Lung cancer screening, nicotine dependence COMPARISON: 04/06/2023 Findings: Stable enlarged left thyroid lobe. There is no evidence of any significant mediastinal, hilar or axillary lymph adenopathy. Atherosclerotic calcifications of the aorta are present. There is no evidence of pleural or pericardial effusion. There is irregular airspace opacity in the posterior right lower lobe, improved from prior exam, likely representing postinflammatory change, as there is a previous more extensive area of consolidation in this location. Mild emphysema. Images through the upper abdomen reveal no abnormalities. Impression: Lung RADS 2: Benign appearance. 12 month follow-up screening CT advised. 09/10/2022: Echo Summary 1. Technically difficult study with limited views. Regional wall motion assessment limited due to poor endomyocardial border definition despite definity contrast enhancement. 2. Left ventricular chamber dimension is normal. 3. Left ventricular systolic function is normal, estimated at 65-70%. 4. There is mildly increased left ventricular wall thickness. 5. Right ventricular chamber dimension is normal. 6. Right ventricular systolic function is moderately reduced. TAPSE 1.3. 7. There is trace tricuspid valve regurgitation. 8. Mild pulmonary hypertension, estimated pulmonary arterial systolic pressure is 37 mmHg. 9. Normal inferior vena cava with <50% collapse upon inspiration consistent with elevated right atrial pressure, 10 mmHg. 08/28/2022: Summary 1. Left ventricular chamber dimension is normal. 2. Left ventricular systolic function is normal, estimated at 60-65%. 3. The left ventricular diastolic function is grade I diastolic dysfunction. 4. Right ventricular chamber dimension is moderately enlarged. 5. Right ventricular systolic function is normal. 6. There is moderate tricuspid valve regurgitation, which may be underestimated due to the eccentricity of the jet. 7. Dilated inferior vena cava with no collapse upon inspiration consistent with elevated right atrial pressure, 15 mmHg. 8. Pulmonary hypertension with an estimated PASP of 59mmHg. Right Ventricle Right ventricular chamber dimension is moderately enlarged. Right ventricular systolic function is normal. Right Atria Right atrial chamber dimension is normal. Atrial Septum Intact interatrial septum visualized by color flow imaging. 08/27/2022: EXAMINATION: CT chest high resolution wo co DATE: 08/27/2022 16:07 INDICATION: respiratory failure TECHNIQUE: Computed tomography (CT) of the chest was performed without intravenous contrast. Automated exposure control and iterative reconstruction technique were employed. The dose-length product was 818.52 mGy-cm. COMPARISON: X-ray chest 08/27/2022 and CTA chest 07/21/2018. FINDINGS: CHEST: Endotracheal tube terminating 2.5 cm above the maria esther. Thoracic aorta: No significant dilation. Moderate arch calcification. Lung parenchyma and airways: Diffuse tree-in-bud opacities most evident in the right lung. Scattered centrilobular nodular opacities measuring up to 11 mm in the right upper lobe. Mild interlobular septal thickening. Bibasilar dependent opacities likely representing atelectasis. Mild emphysematous change. Thoracic inlet, axillae and chest wall: No thyroid or soft tissue mass. No axillary lymphadenopathy. Mediastinum: Mediastinal lymphadenopathy. Dilated central pulmonary arteries as can be seen with pulmonary arterial hypertension. Heart and pericardium: Normal heart size. Aortic valve calcification. No pericardial effusion. Coronary artery calcifications: Mild. Pleura: Trace bilateral pleural fluid. Upper abdomen: No significant finding. Thoracic bones: No acute osseous finding in the chest. IMPRESSION: 1. Tree-in-bud opacities as can be seen with atypical infection (including but not limited to: MAC, TB, fungal), ABPA, airways disease, and less likely aspiration. 2. Nodular opacity in right upper lobe should be followed after the appropriate therapy and cessation of symptoms to ensure resolution. 3. Mediastinal lymphadenopathy. 4. Trace bilateral pleural effusions. 5. Mild interstitial edema. Review of Systems Constitutional: Constitutional: Reports no additional constitutional complaints Eyes: Eyes: Reports no additional eye complaints ENT: Reports system reviewed and no additional complaints, except as documented Cardiovascular: Cardiovascular: Reports no additional cardiovascular compl aints Respiratory: Respiratory: Reports no additional respiratory complaints Gastrointestinal: Gastrointestinal: Reports no additional gastrointestinal complaints Musculoskeletal: Musculoskeletal: Reports no additional musculoskeletal com plaints Neurologic: Reports system reviewed and no additional complaints, except as documented Psychiatric: Psychiatric: Reports no additional psychiatric complaints Endocrine: Endocrine: Reports no additional endocrine complaints Hematologic/Lymphatic: Hematologic/Lymphatic: Reports no additional hematologic/lymphatic complaints Allergic/Immunologic: Allergic/Immunologic: Reports no additional allergic/immunologic complaints Exam Const: General: cooperative, healthy appearing and comfortable Orientation/consciousness: oriented to person, oriented to place and oriented to time HENMT: Head: normal to inspection Ears: hearing grossly normal bilaterally Eyes: General: appearance normal, both eyes and all related structures Neck: Neck: normal visual inspection Chest: Chest palpation & inspection: normal inspection of the chest Resp: Effort & Inspection: normal respiratory effort and able to speak in complete sentences Auscultation: no crackles, no rales, no rhonchi, no wheezes and diminished lung sounds Other: wheezes And coughing with any deep breathing Cardio: Jugular venous distension: no JVD GI: Inspection: normal to inspection Skin: General skin exam: normal color Neuro: General: oriented to person, oriented to place and oriented to time Extrem: General: edema Other: Psych: Appearance: grossly normal Objective Data Vital Signs Vital Signs: Vital Signs - 24 hr 01/08/25 14:00 01/08/25 14:17 01/08/25 14:17 Temperature Pulse Rate 102 H 85 85 Respiratory Rate 20 20 Blood Pressure 117/74 Pulse Oximetry 90 94 Oxygen Delivery Nasal Cannula Oxygen Flow Rate 2 Fraction of Inspired Oxygen 01/08/25 14:40 01/08/25 19:59 01/08/25 20:00 Temperature 36.6 C Pulse Rate 92 110 H 105 H Respiratory Rate 20 20 20 Blood Pressure 111/78 Pulse Oximetry 96 96 Oxygen Delivery Nasal Cannula Oxygen Flow Rate 2 Fraction of Inspired Oxygen 28 01/08/25 20:00 01/08/25 20:16 01/08/25 20:19 Temperature Pulse Rate 105 H 92 92 Respiratory Rate 20 20 Blood Pressure Pulse Oximetry 96 Oxygen Delivery Nasal Cannula Oxygen Flow Rate 2 Fraction of Inspired Oxygen 28 01/08/25 20:44 01/09/25 00:00 01/09/25 04:00 Temperature Pulse Rate 93 88 93 Respiratory Rate 20 Blood Pressure Pulse Oximetry Oxygen Delivery Oxygen Flow Rate Fraction of Inspired Oxygen 01/09/25 05:30 01/09/25 07:41 01/09/25 07:41 Temperature 36.5 C Pulse Rate 96 101 H Respiratory Rate 20 20 Blood Pressure 117/51 L Pulse Oximetry 93 96 Oxygen Delivery Nasal Cannula Oxygen Flow Rate 3 Fraction of Inspired Oxygen 32 01/09/25 08:00 01/09/25 08:02 01/09/25 08:05 Temperature Pulse Rate 102 H 98 Respiratory Rate 20 Blood Pressure Pulse Oximetry 96 Oxygen Delivery Nasal Cannula Oxygen Flow Rate 2 Fraction of Inspired Oxygen Intake/Output Intake/Output: Intake & Output 01/06/25 01/07/25 01/08/25 01/09/25 23:59 23:59 23:59 23:59 Intake Total 4510 4660 3340 590 Output Total 5850 5150 2900 1200 Balance -1340 -490 440 -610 Meds/Results Medications: Active Medications Generic Name Dose Route Start Last Admin Trade Name Freq PRN Reason Stop Dose Admin Hydrocodone Bitart/Acetaminophen 1 tab 12/31/24 09:42 12/31/24 10:10 Hydrocodone/Acetaminophen (*Crx) 5-325 Mg Tablet PO 1 tab Q4H PRN Administration Pain Rated 4-6 Amitriptyline HCl 10 mg 12/28/24 21:00 01/08/25 20:03 Amitriptyline Hcl 10 Mg Tablet PO 10 mg HS YODIT Administration Benzonatate 200 mg 01/03/25 09:00 01/09/25 08:26 Benzonatate 100 Mg Capsule PO 200 mg TID YODIT Administration Budesonide 0.5 mg 01/06/25 08:00 01/09/25 07:41 Budesonide Respule Neb 0.5 Mg/2 Ml Amp INHALATION 0.5 mg Q12HRT YODIT Administration Duloxetine HCl 40 mg 12/28/24 17:00 01/09/25 08:26 Duloxetine Hcl 20 Mg Capsule.Dr PO 40 mg BID YODIT Administration Enoxaparin Sodium 40 mg 01/07/25 09:00 01/09/25 08:26 Enoxaparin 40 Mg/0.4 Ml Syringe SUB-Q 40 mg DAILY YODIT Administration Escitalopram Oxalate 20 mg 12/28/24 15:30 01/09/25 08:26 Escitalopram Oxalate 10 Mg Tablet PO 20 mg DAILY YODIT Administration Ferrous Sulfate 325 mg 12/28/24 17:00 01/09/25 08:27 Ferrous Sulfate [address] BY MOUTH 325 mg BID YODIT Administration Furosemide 40 mg 01/05/25 17:00 01/09/25 08:27 Furosemide 40 Mg Tablet PO 40 mg BID YODIT Administration Guaifenesin 1,200 mg 12/28/24 21:00 01/09/25 08:27 Guaifenesin 12 Hr 600 Mg Tabcr PO 1,200 mg Q12HR YODIT Administration Ipratropium Neal 0.5 mg 01/08/25 14:00 01/09/25 07:41 Ipratropium Br 0.02% Inh Soln 0.5 Mg/2.5 Ml Vial INHALATION 0.5 mg Q6HRT YODIT Administration Levalbuterol HCl 0.63 mg 01/08/25 14:00 01/09/25 07:41 Levalbuterol Neb 1.25 Mg/3 Ml INHALATION 0.63 mg Q6HRT YODIT Administration Lidocaine 1 patch 12/31/24 11:55 01/09/25 08:28 Lidocaine 5% Patch TRANSDERM Not Given DAILY YODIT Loratadine 10 mg 01/09/25 10:30 Loratadine 10 Mg Tablet PO QAM YODIT Magnesium Hydroxide 30 ml 12/28/24 14:40 Magnesium Hydroxide Susp 30 Ml Udc PO HS PRN Constipation Melatonin 5 mg 12/28/24 14:40 01/08/25 20:06 Melatonin 5 Mg Tablet PO 5 mg HS PRN Administration Insomnia Montelukast Sodium 10 mg 12/29/24 09:00 01/09/25 08:27 Montelukast Sodium 10 Mg Tablet PO 10 mg DAILY YODIT Administration Pantoprazole Sodium 40 mg 12/28/24 21:00 01/09/25 08:27 Pantoprazole 40 Mg Tablet PO 40 mg Q12HR YODIT Administration Quetiapine Fumarate 25 mg 12/28/24 21:00 01/08/25 20:03 Quetiapine Fumarate 25 Mg Tablet PO 25 mg HS YODIT Administration Ropinirole HCl 4 mg 12/28/24 21:00 01/08/25 20:03 Ropinirole Hcl 1 Mg Tablet PO 4 mg HS YODIT Administration Topiramate 200 mg 12/28/24 21:00 01/09/25 08:27 Topiramate 100 Mg Tablet PO 200 mg Q12HR YODIT Administration Trazodone HCl 50 mg 12/28/24 21:00 01/08/25 20:03 Trazodone Hcl 50 Mg Tablet PO 50 mg HS YODIT Administration Trazodone HCl 150 mg 01/03/25 13:16 01/08/25 20:06 Trazodone Hcl 50 Mg Tablet PO 150 mg HS PRN Administration Insomnia Radiology Results: ITS Impressions Chest X-Ray 01/02/25 09:39 IMPRESSION: 1. Increasing opacities in the right mid and bilateral lower lung zones which could represent worsening atelectasis or pneumonia. Modified Barium Swallow 01/03/25 15:10 IMPRESSION: Patient tolerated regular consistency oral feedings in the upright position. Please correlate with speech pathologist findings and specific feeding recommendations. Chest CT 01/05/25 17:10 IMPRESSION: 1. Mild emphysema with right upper lobe pneumonia. 2. 3.5 cm left thyroid mass. Labs Labs: Laboratory Results - last 24 hr 01/09/25 01/09/25 05:09 06:54 WBC 15.9 H RBC 4.06 L Hgb 10.6 L Hct 37.5 MCV 92.4 MCH 26.1 MCHC 28.3 L RDW 15.2 H Plt Count 333 MPV 9.4 Immature Gran % (Auto) 4.8 H Neut % (Auto) 72.8 Lymph % (Auto) 13.9 L Moore % (Auto) 6.7 Eos % (Auto) 1.4 Baso % (Auto) 0.4 Lymph # (Auto) 2.20 Moore # (Auto) 1.1 H Eos # (Auto) 0.2 Baso # (Auto) 0.1 Abs Immat Gran (auto) 0.76 H Absolute Neuts (auto) 11.6 H Absolute Nucleated RBC 0.000 Band Neutrophils % Not Reportable Nucleated RBC % 0.0 Platelet Estimate Adequate Hypochromasia 1+ Schistocytes None seen Puncture Site Right brachial ABG pH 7.352 ABG pCO2 67.3 H* ABG pO2 76.2 L ABG PO2/FiO2 Ratio 2.12 ABG HCO3 36.5 H ABG O2 Saturation 94.2 L ABG O2 Content 15.8 L ABG Base Excess 8.8 A-a Gradient 102.4 Oxyhemoglobin 94.1 Total Hemoglobin 11.9 L O2 Delivery Device Nasal cannula O2 Liters/Min 4.0 FiO2 36 Sodium 137 Potassium 3.8 Chloride 95 L Carbon Dioxide 34 H Anion Gap 8 BUN 24 H Creatinine 1.23 H Estim Creat Clear Calc 52 Estimated GFR 44 L Glucose 146 H Calcium 9.2
[2025-01-09] MEDS: LORATADINE 10 MG TABLET PO (11:48)
[2025-01-09] MEDS: traZODone HCL 50 MG TABLET 150 MG PO (19:59)
[2025-01-09] MEDS: MELATONIN 5 MG TABLET PO (19:59)
[2025-01-09] MEDS: QUEtiapine FUMARATE 25 MG TABLET PO (20:00)
[2025-01-09] MEDS: traZODone HCL 50 MG TABLET PO (20:00)
[2025-01-09] MEDS: rOPINIRole HCL 1 MG TABLET 4 MG PO (20:00)
[2025-01-09] MEDS: AMITRIPTYLINE HCL 10 MG TABLET PO (20:00)
[2025-01-10] VITALS (14 sets, daily range): BP systolic 124; BP diastolic 59; PULSE 86–106; RESP 16–20; TEMP 36.5; O2SAT 85–93
[2025-01-10] MEDS: IPRATROPIUM BR 0.02% INH SOLN 0.5 MG/2.5 ML VIAL INHALATION ×2 (02:00→09:20)
[2025-01-10] MEDS: LEVALBUTEROL NEB 1.25 MG/3 ML 0.63 MG INHALATION ×2 (02:00→09:19)
--- NOTE | 2025-01-10 03:13 | PCRCNOTE ---
Respiratory treatments omitted due to apnea link procedure
[2025-01-10 05:01] LABS: Alveolar/Arterial O2 Gradient 103.5 mmHg; Base Excess ABG 6.6 mEq/l (+/-2.0); Fractional Inspired Oxygen 32 %; HCO3 ABG 33.2 mEq/l (22.0-26.0); Oxygen Content ABG 14.6 %vol (16.0-22.0); Oxygen Saturation ABG 88.5 % (95.0-100.0); PCO2 ABG 57.7 mmHg (35.0-45.0); PO2 ABG 57.2 mmHg (80.0-100.0); PO2 FiO2 Ratio Arterial Blood 1.79 %; Total Hemoglobin 11.8 g/dL (12.0-18.0); pH ABG 7.378 (7.350-7.450)
[2025-01-10 05:05] LABS: Device BIPAP; Modified Allen's Test Pass; Oxyhemoglobin 87.7 % THb (90.0-100.0); Site Drawn RIGHT RADIAL
[2025-01-10 05:06] LABS: Expiratory Pressure 5 cmH2O; Inspiratory Pressure 15 cmH2O
[2025-01-10 07:26] LABS: Basophils Absolute Auto 0.1 K/mm3 (0.0-0.1); Basophils Percent Auto 0.4 % (0.2-1.2); Eosinophils Absolute Auto 0.2 K/mm3 (0-0.3); Eosinophils Percent Auto 1.3 % (0-4.4); Hematocrit 37.2 % (37.0-47.0); Hemoglobin 10.5 g/dL (12.0-15.0); Immature Granulocyte Absolute 0.57 K/mm3 (0.00-0.031); Immature Granulocyte Percent A 3.8 % (0-0.5); Lymphocytes Absolute Auto 2.05 K/mm3 (0.9-3.2); Lymphocytes Percent Auto 13.6 % (18.3-44.2); Mean Corpuscular HGB Conc 28.2 g/dl (32-36); Mean Corpuscular Hemoglobin 25.8 pg (26-34); Mean Corpuscular Volume 91.4 fl (80-100); Mean Platelet Volume 9.5 fl (7.4-10.4); Monocytes Absolute Auto 1.1 K/mm3 (0.1-0.6); Neutrophils Absolute Auto 11.1 K/mm3 (1.3-6.7); Neutrophils Percent Auto 73.9 % (45.5-73.1); Platelet Count Result 315 k/mm3 (150-375); Red Blood Count 4.07 M/mm3 (4.2-5.4); Red Cell Distribution Width 15.3 % (11.5-14.5)
[2025-01-10 07:39] LABS: Alanine Aminotransferase 13 U/L (6-35); Albumin Level 3.5 g/dL (3.5-5.1); Alkaline Phosphatase 88 U/L (38-126); Anion Gap 6 mmol/L (4-12); Aspartate Amino Transferase 14 U/L (14-36); Bilirubin,Total 0.4 mg/dL (0.2-1.3); Blood Urea Nitrogen 24 mg/dL (7-17); Calcium 9.1 mg/dL (8.4-10.2); Carbon Dioxide 35 mmol/L (22-30); Chloride 96 mmol/L (98-107); Estimated CRCL calculation 51 ml/min; Estimated Glomerular Filt Rate 42; Glucose 146 mg/dL (65-110); Magnesium 2.2 mg/dL (1.6-2.3); Potassium 3.2 mmol/L (3.4-5.0); Sodium 137 mmol/L (137-145)
[2025-01-10 07:50] LABS: Hypochromasia 1+; Platelet Estimate Adequate (Adequate)
[2025-01-10 07:51] LABS: Schistocytes None Seen; Stomatocytes 1+
[2025-01-10] MEDS: ENOXAPARIN 40 MG/0.4 ML SYRINGE SUB-Q (08:09)
[2025-01-10] MEDS: guaiFENesin 12 HR 600 MG TABCR 1200 MG PO (08:09)
[2025-01-10] MEDS: DULoxetine HCL 20 MG CAPSULE.DR 40 MG PO (08:09)
[2025-01-10] MEDS: FERROUS SULFATE 325 MG TABLET DR BY MOUTH (08:09)
[2025-01-10] MEDS: ESCITALOPRAM OXALATE 10 MG TABLET 20 MG PO (08:09)
[2025-01-10] MEDS: FUROSEMIDE 40 MG TABLET PO (08:09)
[2025-01-10] MEDS: BENZONATATE 100 MG CAPSULE 200 MG PO (08:09)
[2025-01-10] MEDS: TOPIRAMATE 100 MG TABLET 200 MG PO (08:10)
[2025-01-10] MEDS: MONTELUKAST SODIUM 10 MG TABLET PO (08:10)
[2025-01-10] MEDS: LORATADINE 10 MG TABLET PO (08:10)
[2025-01-10] MEDS: PANTOPRAZOLE 40 MG TABLET PO (08:10)
[2025-01-10] MEDS: BUDESONIDE RESPULE NEB 0.5 MG/2 ML AMP INHALATION (09:23)
--- NOTE | 2025-01-10 09:50 | PM.PNPUL ---
Progress Note: A&P Assessment and Plan (1) Chronic obstructive pulmonary disease: Code(s): J44.9 - Chronic obstructive pulmonary disease, unspecified Status: Chronic Assessment and Plan: Regarding her COPD, 50 pack year tobacco use, quit 08/23/2022, alpha 1 anti trypsin genotype MZ, alpha 1 anti trypsin level 134, normal. The patient has been on oxygen for the last 5 years. I have no PFTs. She is using 5 L at rest with home saturations 92-96%. First CT scan in our system is from 08/27/2022 shows mild apical predominant centrilobular emphysema. Repeat CT angiogram of the chest on 12/02/2024 demonstrates mild apical predominant centrilobular emphysema. Patient is maintained on trelegy inhaler but she does not use a because of the taste. Patient takes Trelegy 100, montelukast 10 and albuterol p.r.n.. Patient tells me she wheezes every day when she takes rescue albuterol at home it relieves her wheezing for 1-2 minutes. 12/01/2024: White blood cell count 14.8, eosinophils 0.6%= 89 per micro L. patient presents with shortness of breath, no change in phlegm production or color, worsening shortness of breath and hypoxemic respiratory failure. Patient treated with bronchodilators, steroids and BiPAP. 12/28/24: The patient tells me that the day after she left the hospital she started getting worse with fatigue and then worsening oxygenation about 5 days ago. On her prescribed 2 L her saturations were in the 80s and then as low as 79%. She denied fever, chills, rigors. She had a dry cough with no phlegm and no hemoptysis. Currently says she is improved and breathing 50% back to her normal but she feels still feels tired and short of breath. The patient told me she had improved and could come off of the mask and she was placed on 3 L nasal cannula with saturations 91% Plan: Will continue treatment for possible COPD exacerbation. Patient has wheezing but has wheezing every day. I will decrease her Solu-Medrol to 20 mg IV q.6 hours. Continue DuoNebs q.6 hours. Patient is on levofloxacin for possible pneumonia and bronchitis. I will obtain a D-dimer and if positive will get a CT angiogram of the chest. If negative will get a CT scan of the chest looking for focal infiltrates consistent with a pneumonia. Goal saturation 90-94%, Adjust oxygen accordingly. Will add guaifenesin 1200 mg p.o. b.i.d. Later in the day patient had a CT scan of the chest with moderate apical predominant centrilobular emphysema and bibasilar atelectasis with no evidence of pneumonia. 12/29/2024: Patient states she had a bad night and his breathing worse today. Her cough is increased with no phlegm and no blood. She is afebrile. White blood cell count 15.2, creatinine 1.61. Currently patient is on 4 L nasal cannula saturations 94%. Patient received a Xopenex treatment and had a heart rate 160 that decreased on its own and required no medical intervention. Plan: I will continue Solu-Medrol 20 mg IV q.6. I will discontinue her levalbuterol due to the tachy arrhythmia increase her ipratropium nebulizers to q.4 hours. No evidence of pneumonia. Will treat for tracheobronchitis with Levaquin 750 mg p.o. q.48h, day 2. Continue guaifenesin 12 50 b.i.d., montelukast 10. Patient is on Lasix 20 p.o. b.i.d.. 12/30/24: Patient tells me she is having a better day today. She says that her breathing is 75% back to her normal. Her cough is improved but increased from baseline. She has no phlegm and no hemoptysis. She is afebrile. Her weight today is 112.7 kg. Patient wore the hospital noninvasive ventilator with the AVAPS mode and said that she slept well. Plan: I will change the patient to prednisone 40 mg p.o. q.day, Day 3 of steroids. I will continue ipratropium nebulizers q.4 hours. Continue montelukast 10 q day and guaifenesin 1200 p.o. b.i.d.. continue Levaquin for tracheobronchitis, day 3. Encouraged her out of bed to chair, ambulation as tolerated, physical therapy has been ordered on 12/29/2024. Respiratory pathogen panel, urine Legionella, urine pneumococcal antigen pending. pulmonary inpatient services will resume on 01/02/2025, call with questions. 01/03/2024 patient states that she is breathing 75% back to her normal. Her dyspnea on exertion is back at her normal. His cough is persistent but improved. She is afebrile. White blood cell count 14.1, creatinine 1.46. Her weight is 114. Her currently the patient is on 3 L with saturation 95%. Patient wore the hospital BiPAP with a rate of 20 pressures 20/5 and 32% FiO2 and said that she could not sleep last night because the pressure was too high and the machine had a loud leak and kept her up. BNP 859 which is increased from 563. Continue Lasix 20 p.o. b.i.d.. Plan: Patient continues to improve. Today is day 6 of prednisone and will discontinue after today's dose. Continue ipratropium q.4 hours. Patient is on Levaquin day 6. She is on ceftriaxone day 2 for UTI. Goal saturation 90-94%, adjust oxygen accordingly. 01/04/2024: Patient tells me she is breathing worse today. She says her cough is more persistent and heavier, remains dry with no phlegm. Her breathing is worse. She is able to walk with physical therapy yesterday and did well. White blood cell count 15.7, creatinine 1.42. Respiratory pathogen panel is negative. Plan. Patient worse today and will restart prednisone 40. Her respiratory pathogen panel is negative. I will obtain a modified barium swallow. Will begin Tessalon Perles 200 t.i.d. standing. Will start levalbuterol 0.63 mcg q.4 hours to see if this will provide some relief. Patient remains on Lasix 20 p.o. b.i.d. she is status post 7 days of levofloxacin and now on ceftriaxone for UTI, day 2. Continue guaifenesin 1200 q.12 hours, Vest therapy, montelukast. Patient is on metoprolol 100 q.12 hours as well as amiodarone 200, Later in the day patient had a modified barium swallow with no evidence of aspiration. 01/05/2024: Patient tells me she is breathing better today. Her cough persists but is better. Her shortness of breath and wheezing persists. She is afebrile. her weight today is 117.4 kg, yesterday she was 1.4 L positive on Lasix 20 p.o. b.i.d.. Plan: Patient had just received vest therapy as well as a nebulized treatment and she still had diffuse wheezing. Overall she is no better after 8 days of steroids, course of levofloxacin and now on ceftriaxone, bronchodilators, Lasix, montelukast and guaifenesin. Last admission on 12/02/2024 patient had AFib with RVR and her metoprolol was increased from 25 XL a day to 100 p.o. b.i.d. and she was started on amiodarone. She tells me she has had persistent symptoms since then. I have placed a hold on the metoprolol and amiodarone. Discussed with Lesley Rock and she will consult Cardiology regarding AFib management. 01/05/25: Overall the patient states that her breathing remains compromised but about the same as yesterday. Her cough has improved and she has no phlegm. Her dyspnea on exertion is the same. Currently she is on 3 L nasal cannula saturations 95%. I decreased her to 2 L. Her white blood cell count is 16.1, creatinine is 1.46. She is positive 3 L yesterday and 4.1 L since admission. Her weight is 117.2 kg her BNP is 614 which is improved from 859 on 01/02/2025. Plan: Patient has not improved. Continue prednisone 40 mg p.o. q.day, day 9, then discontinue. nebulized ipratropium and levalbuterol q.4 hours, montelukast 10, guaifenesin 1200 p.o. b.i.d.. Completed levofloxacin for 7 days and now on ceftriaxone for UTI day 5. I will order CT scan of the chest today. Will try Lasix 40 p.o. b.i.d. to see if she improves with diuresis. Metoprolol and amiodarone have been held since 01/04. Cardiology consult obtained yesterday and appreciate their very detailed and thoughtful consult. Regarding the amiodarone, I agree with her consult note regarding chronic amiodaarone toxicity but I am more worried about a subacute reaction to amiodarone rather than chronic amiodarone lung toxicity. Since patient still has respiratory distress I recommend discontinuation of amiodarone at this time. Later in the day patient had a CT scan of the chest with mild apical predominant centrilobular emphysema, small area of atelectasis versus infiltrate posterior segment right upper lobe. There is no pleural disease, interstitial lung disease, masses, or nodules. 01/06/25: patient tells me she is breathing a little bit better today. She is able to take deeper breaths. Her dry cough persists. She has no phlegm or hemoptysis. She is afebrile. White blood cell count 18.4, creatinine 1.42. Patient is on 2 L nasal cannula saturations 94%. I turned her to room air and after 4 minutes her saturations decreased to 88% and I turned her back to 1 L and her saturations were 92%. Yesterday she diuresed 2.4 L and cumulative she is positive 1.3 L since admission. Her weight today is 119 kg. Plan: overall patient is a little bit better today. She has received 9 days of prednisone and I will discontinue today. I will add nebulized budesonide 500 b.i.d. and continued ipratropium and levalbuterol nebulizers q.4 hours, montelukast 10, guaifenesin 1200. Patient Has completed 7 days of levofloxacin, last dose 01/03/2025, is on ceftriaxone for UTI day 6 an doxycycline started on 01/06/2025. She has no clinical evidence of pneumonia. will check procalcitonin. Continue Lasix 40 p.o. b.i.d.. walked 120 ft and rested once, required 4 L to maintain saturations 89-90% 01/07/25: overall the patient tells me that her breathing is pretty good. She has a cough And states this is not the deep painful cough anymore with no phlegm or hemoptysis. She is afebrile. White blood cell count 15.1, creatinine 1.37, on 2 L nasal cannula saturations are 93%. Patient use a hospital noninvasive ventilation with the AVAPS mode and 32% FiO2 and tolerated this well. diurese 2.4 L yesterday cumulative she is positive 1.3 L since admission. Her weight today is 119 kilos. Wheezes unchanged. Plan: Patient is stable off of prednisone for 48 hours. She requests to continue levalbuterol and ipratropium q.4 hours. continue budesonide nebulizers. Continue montelukast, Tessalon Perles 200 t.i.d. , guaifenesin 1200 b.i.d., and Lasix 40 IV b.i.d. 01/08/25: overall the patient tells me that her breathing is pretty good. She has a cough And states this is not the deep painful cough anymore with no phlegm or hemoptysis. She is afebrile. White blood cell count 15.1, creatinine 1.37, on 2 L nasal cannula saturations are 93%. Patient use a hospital noninvasive ventilation with the AVAPS mode and 32% FiO2 and tolerated this well. diurese 2.4 L yesterday cumulative she is positive 1.3 L since admission. Her weight today is 119 kilos. Wheezes unchanged. Plan: Patient is stable off of prednisone for 3 days. she has some body tremors and will decrease levalbuterol and ipratropium from q.4 hours to Q 6 hours. Continue budesonide nebulizers. Continue montelukast, Tessalon Perles 200 t.i.d. , guaifenesin 1200 b.i.d., and Lasix 40 IV b.i.d. 01/09/25: Patient tells me her breathing is stable.. She has a unchanged cough. She is afebrile. White blood cell count 15.9, creatinine 1.23, on 2 L nasal cannula saturations are 94%. Patient Slept with 4 L nasal cannula overnight and said that she did okay. ABG off of AVAPS for 24 hours 7.35/67/76. Overnight oximetry on 4 L with recording duration 6 hours and 48 minutes, average saturation 94%. Low saturation 88%. Time with saturation less than or equal to 88% was 0 minutes. Oxygen desaturation index 1.7. Positive 440 mL yesterday. Cumulative she is positive 585 since admission. Her weight today is 116.6. Wheezes unchanged. Plan: Patient is stable off of prednisone for 4 days. tremors mildly better on levalbuterol and ipratropium Q 6 hours. Continue budesonide nebulizers. Continue montelukast, Tessalon Perles 200 t.i.d. , guaifenesin 1200 b.i.d., Protonix 40 b.i.d., and Lasix 40 IV b.i.d. I will add loratadine 10 mg p.o. q.day as patient says she has sinus congestion and allergies uncontrolled with the montelukast. 01/10/2025: Patient tells me she is breathing normal. Patient has been walking in the halls and does have dyspnea on exertion. She denies rest cough, phlegm or hemoptysis. When she takes a deep breath this does elicit coughing. Currently she is on 2 L nasal cannula saturations 91%. Her weight is 116.3. Yesterday she walked 145 ft. patient tells me she is making no sputum and does not need guaifenesin. From a pulmonary perspective patient can be discharged on these pulmonary medications Trelegy 100-60 2.5-25 at 1 puff q.day Rescue levalbuterol 2 puffs q.4 hours p.r.n. shortness of breath or wheezing benzonatate 200 mg p.o. t.i.d. Montelukast 10 mg q.day Loratadine 10 mg p.o. q.day Oxygen at rest and with activity per formal home O2 assessment which I have ordered. BiPAP at night per [employer] machine through [facility] with set rate 14, pressures 15/5 and 5 L bleed in. formal Letter of appeal to [facility] paperwork was turned in on 01/09/2025. Patient to follow-up in the Pulmonary Clinic in 3-4 weeks. I gave her our business card and informed our environmental monitoring technician. Discussed with Dr. Farfan. Will follow with you. (2) Chronic hypercapnic respiratory failure: Code(s): J96.12 - Chronic respiratory failure with hypercapnia Status: Acute Assessment and Plan: Last admission 12/02/2024 to 12/08/2024) patient presented with hypercarbic respiratory failure with ABG 7.33/65/103 and serum bicarb > 40. 12/28/2024: She again presents with shortness of breath, hypoxemic and hypercarbic respiratory failure. Current venous blood gas listed as room air 7.33/72/ 43. Patient has chronic hypercarbic respiratory failure from her COPD with a room air blood gas of 7.33/72/43 (venous) and a serum bicarbonate greater than 37. She would benefit from a noninvasive ventilation as this is her 2nd hospitalization in the last month for hypercarbic respiratory failure. noninvasive ventilation would prevent further hospitalizations and deterioration. Patient was placed on BiPAP With no rate and pressures 15/5 with 28% with blood gas of 7.37/64/69. Patient was then placed on BiPAP with no rate and pressure 20/5 and 32% with a blood gas of 7.38/64/74. ApneaLink on these settings demonstrated adequate oxygenation. Patient was then placed on BiPAP rate of 20 pressures 20/5 and she said she could not tolerate these settings as it was too much pressure, high leak and she could not sleep at night. I will initiate the process for a home noninvasive ventilator with the AVAPS mode through her [employer], oxygen DME is [employer] who we will use. The patient told me she had improved and could come off of the mask and she was placed on 3 L nasal cannula with saturations 91% 12/28/24: Currently the patient is on BiPAP rate of 18, pressures 14/8 with 40% FiO2. Patient told me these settings were uncomfortable for her and I changed them to noninvasive ventilation with the AVAPS mode rate of 14, tidal volume 500, EPAP 5, minimal inspiratory pressure 6, maximal inspiratory pressure 25, inspiratory time 1.0, rise of 1 which is the fastest and 40% FiO2. She said this was more comfortable. The patient told me she had improved and could come off of the mask and she was placed on 3 L nasal cannula with saturations 91%. Plan: noninvasive ventilation with the AVAPS mode p.r.n. during the day. I recommend she wear this tonight. After she has improved will repeat ABG during the day. 12/29/24: Patient attempted to wear the fullface mask with the AVAPS settings as above and she did wear the mask but she could not sleep. plan: Patient says she will try to wear the AVAPS again tonight. I told her if she can not sleep with the mask on that she needs to take the mask off so that she can try to sleep. 12/30/24: Patient wore the hospital noninvasive ventilator with the AVAPS mode and said that she slept well. Plan: Patient tells me she still requires breathing support at night. If the patient qualifies for ventilatory support with a home machine it will need to be BiPAP with no rate. [place] will place the patient on BiPAP no rate, pressures 15/5 and 28% FiO2 with overnight oximetry and ABG in the morning. 12/31/24: Patient wore a hospital BiPAP with no rate pressures 15/5 with 28% with blood gas the next morning 7.37/64/69 and overnight oximetry with hypoxia. 01/02/2024: Patient wore the hospital BiPAP with no rate pressures 20/5 with 32% a blood gas of 7.38/64/74 and overnight oximetry with adequate saturations. 01/03/2024 Patient wore the hospital BiPAP with a rate of 20 pressures 20/5 and 32% FiO2 and said that she could not sleep last night because the pressure was too high and the machine had a loud leak and kept her up. Plan: I will place the patient on noninvasive ventilation with the AVAPS mode rate of 14, tidal volume 500, EPAP 5, minimum inspiratory pressure 6, maximum inspiratory pressure 25, inspiratory time 1.0, rise of 1 and 32% FiO2. I will obtain an overnight oximetry and ABG on these settings. I will initiate home noninvasive ventilation through [facility] and her insurance [facility]. Later in the day filled out a home noninvasive ventilator form for [facility] through [facility] insurance for IVAPS with AE: Rate 14, tidal volume 500, minimum EPAP 5, maximum EPAP 15, minimum pressure support 6, maximum pressure support 25, 3 L bleed in. 01/03/25: Patient wore the hospital machine BiPAP rate of 20, pressures 20/5, inspiratory time 1, rise of 3 and 32% FiO2. She said she had a difficult time sleeping in the mask did not fit with a large leak. Overnight oximetry on these settings with recording duration of 7 hours and 40 minutes, average saturation 94%. Low saturation 63%. Time with saturation less than or equal to 88% 6 minutes, oxygen desaturation index 5.1. ABG 7.36/55/78. Plan: Waiting to hear back from his DME Rene regarding a home machine. tonight AVAPS mode rate of 14, tidal volume 500, EPAP 5, minimum inspiratory pressure 6, maximum inspiratory pressure 25, inspiratory time 1.0, rise of 1 and 32% FiO2. I will obtain an overnight oximetry and ABG on these settings. 01/04/25: Patient could not tolerate the BiPAP but does tolerate noninvasive ventilation with the AVAPS mode. She used the hospital noninvasive ventilator with the AVAPS mode rate of 14, tidal volume 500, EPAP 5, minimal inspiratory pressure 6, maximal inspiratory pressure 25, I-time 1.0, rise of 1 and 32% FiO2. Patient said she slept well and could tolerate this machine. There was no leak. Patient had an overnight oximetry on these settings with recording duration of 6 hours and 56 minutes, average saturation 95%, low saturation 89%, time with saturation less than or equal to 88% was 0 minutes, oxygen desaturation index 2.1. ABG prior to removal was 7.35/53/85. Plan: Current noninvasive ventilation with the AVAPS mode provide adequate ventilation and oxygenation. Waiting to hear from [facility] regarding home noninvasive ventilation approval. 01/05/25: patient tells me she wore the hospital noninvasive ventilation with the AVAPS mode last night and slept well. Plan: Patient has been denied a noninvasive ventilator by [facility], her insurance company. This has been of relate to us verbally and we are waiting for the formal denial. Once this is in place will obtain a phone number for a peer to peer review. While she is in the hospital continue hospital noninvasive ventilator with 32% FiO2. 01/06/2025: Patient wore the hospital noninvasive ventilator with the AVAPS mode fullface mask and said she slept well and tolerated this. Plan: Patient's request for noninvasive ventilation was denied by [facility]. They requested a peer to peer. I spent the last 50 minutes trying to complete appear to peer process through the [facility] [place] with the Case record for the peer to peer review that I was given and was told this is the incorrect information. Peer to peer review was unsuccessful. Will contact [facility] [place] to try to get correct information. Attempted to perform peer to peer review for 50 minutes on the phone with various [facility] representatives without success. I talked to our clinical supervisor will also try to coordinate this peer to peer. 01/07/25: Need to perform peer to peer review with [facility] representatives prior to discharge. 01/08/25: patient tolerated hospital noninvasive ventilation with the AVAPS mode and 32% FiO2. Feels she can go without the noninvasive ventilation tonight. Plan: Tonight the patient will wear 4 L nasal cannula and I will check an ABG at 8:00 a.m. tomorrow 24 hours off of the noninvasive ventilation to reassess her hypercarbic respiratory failure. I will obtain an overnight oximetry on 4 L nasal cannula. 01/09/25: Patient slept with 4 L nasal cannula overnight and said that she did okay. ABG off of AVAPS for 24 hours 7.35/67/76. Overnight oximetry on 4 L with recording duration 6 hours and 48 minutes, average saturation 94%. Low saturation 88%. Time with saturation less than or equal to 88% was 0 minutes. Plan: Off of noninvasive ventilation for 24 hours patient remains hypercarbic and requires noninvasive ventilation. Have spoken to hospice home care coordinator, outpatient clinical supervisor and care coordination regarding arranging peer to peer review of her case prior to discharge. Waiting for this to be scheduled. Later in the day peer to peer will was not possible because we are outside of the window so that a formal appeal must be requested. A formal letter of appeal was drafted by myself and sent to [facility]. 01/10/25: Patient wore the hospital BiPAP rate of 14 pressures 15/5 with 3 L bleed in And said that his was comfortable and she was able to get some sleep. She had an overnight oximetry with recording duration of 7 hours and 31 minutes. Average saturation 88%. Low saturation 63%. Time with saturation less than or equal to 88% was 232 minutes. Oxygen desaturation index 15.1. ABG prior to removal of the mass with 7.38/58/57. plan: BiPAP rate of 14 pressures 15/5 and 3 L bleed in provide adequate oxygenation and ventilation. Subjective Date/time seen: 01/10/25 09:50 Interval history: 12/28/2024: This is a new pulmonary consult for COPD exacerbation. 64-year-old with a history of AFib off anticoagulation for 2 years secondary to abdominal rectal sheath hematoma, diastolic dysfunction, GERD, HTN, restless legs syndrome, anxiety and COPD with chronic hypoxemic respiratory failure on 5 L at Night and 2 L with rest and activity per home O2 assessment on 12/08/2024. I previously saw the patient as an inpatient on 12/02/2024 when she was admitted for COPD exacerbation. Regarding her COPD, 50 pack year tobacco use, quit 08/23/2022, alpha 1 anti trypsin genotype MZ, alpha 1 anti trypsin level 134, normal. The patient has been on oxygen for the last 5 years. I have no PFTs. She is using 5 L at rest with home saturations 92-96%. First CT scan in our system is from 08/27/2022 shows mild apical predominant centrilobular emphysema. Repeat CT angiogram of the chest on 12/02/2024 demonstrates mild apical predominant centrilobular emphysema. Patient is maintained on trelegy inhaler but she does not use a because of the taste. Patient takes Trelegy 100, montelukast 10 and albuterol p.r.n.. Patient tells me she wheezes every day when she takes rescue albuterol at home it relieves her wheezing for 1-2 minutes. 12/01/2024: White blood cell count 14.8, eosinophils 0.6%= 89 per micro L. 12/02/2024 through 12/08/2024:? Presented to the emergency room with COPD exacerbation, hypercarbic and hypoxemic respiratory failure, AFib with RVR, and fluid overload.? Treated with BiPAP, steroids, bronchodilators, antibiotics, and diuretics.? CTA of the chest with no PE, mild apical predominant centrilobular emphysema, ?upper and lower extremity Dopplers negative for DVT.? Echocardiogram with LVEF 60-65%, RV was dilated with normal systolic function.? Left atrium normal, right atrium normal, RVSP 27. ?After she improved clinically on 12/06/2024: ABG on 5 L nasal cannula pH 7.39/48/97. ?Patient improved and was discharged on 12/08/24 on trelegy 100, rescue albuterol, montelukast 10, guaifenesin 600 b.i.d. p.r.n. congestion, no Lasix, amiodarone 200 b.i.d., metoprolol 100 q.12, she had completed 5 days of steroids in house and I did not recommend a discharge taper, however, the hospitalist discharge her on a 15 day prednisone taper. Required 2 L oxygen at rest and with activity per home O2 assessment and per overnight oximetry required 5 L NC when she naps or sleeps. ?12/08/24: creatinine 1.68. Her weight is 120.8 kg.? 12/28/2024: Presented to the emergency room with shortness of breath. blood pressure 136/117, heart rate 76, nasal cannula saturation 93%. Patient had wheezing throughout all lung paul. White blood cell count 13.4 with eosinophils 1.8%=241/ul. creatinine 1.34, serum bicarbonate 37, BNP 563. Venous blood gas listed as room air 7.33/72/ 43. patient placed on BiPAP, treated with bronchodilators, received IV steroids per EMS, lasix 40 IV. 12/28/24: Currently the patient is on BiPAP rate of 18, pressures 14/8 with 40% FiO2. Patient told me these settings were uncomfortable for her and I changed them to noninvasive ventilation with the AVAPS mode rate of 14, tidal volume 500, EPAP 5, minimal inspiratory pressure 6, maximal inspiratory pressure 25, inspiratory time 1.0, rise of 1 which is the fastest and 40% FiO2. She said this was more comfortable. The patient told me she had improved and could come off of the mask and she was placed on 3 L nasal cannula with saturations 91% The patient tells me that the day after she left the hospital she started getting worse with fatigue and then worsening oxygenation about 5 days ago. On her prescribed 2 L her saturations were in the 80s and then as low as 79%. She denied fever, chills, rigors. She had a dry cough with no phlegm and no hemoptysis. Currently says she is improved and breathing 50% back to her normal but she feels still feels tired and short of breath. Later in the day patient had a CT scan of the chest with moderate apical predominant centrilobular emphysema and bibasilar atelectasis with no evidence of pneumonia. 12/29/2024: Patient states she had a bad night and his breathing worse today. Her cough is increased with no phlegm and no blood. She is afebrile. White blood cell count 15.2, creatinine 1.61. Currently patient is on 4 L nasal cannula saturations 94%. Patient tempted to wear the fullface mask with the AVAPS settings as above and she did wear the mask but she could not sleep. Patient received a Xopenex treatment and had a heart rate 160 that decreased on its own and required no medical intervention. 12/30/24: Patient tells me she is having a better day today. She says that her breathing is 75% back to her normal. Her cough is improved but increased from baseline. She has no phlegm and no hemoptysis. She is afebrile. Her weight today is 112.7 kg. Patient wore the hospital noninvasive ventilator with the AVAPS mode and said that she slept well. 12/31/24: Patient wore a hospital BiPAP with no rate pressures 15/5 with 28% with blood gas the next morning 7.37/64/69 and overnight oximetry with hypoxia. 01/02/2024: Patient wore the hospital BiPAP with no rate pressures 20/5 with 32% a blood gas of 7.38/64/74 and overnight oximetry with adequate saturations. 01/03/2024 patient states that she is breathing 75% back to her normal. Her dyspnea on exertion is back at her normal. His cough is persistent but improved. She is afebrile. White blood cell count 14.1, creatinine 1.46. Her weight is 114. Patient wore the hospital BiPAP with a rate of 20 pressures 20/5 and 32% FiO2 and said that she could not sleep last night because the pressure was too high and the machine had a loud leak and kept her up. Later in the day filled out a home noninvasive ventilator form [facility] insurance for IVAPS with AE: Rate 14, tidal volume 500, minimum EPAP 5, maximum EPAP 15, minimum pressure support 6, maximum pressure support 25, 3 L bleed in. 01/04/2024: Patient tells me she is breathing worse today. She says her cough is more persistent and heavier, remains dry with no phlegm. Her breathing is worse. She is able to walk with physical therapy yesterday and did well. White blood cell count 15.7, creatinine 1.42. Respiratory pathogen panel is negative. Patient wore the hospital machine BiPAP rate of 20, pressures 20/5, inspiratory time 1, rise of 3 and 32% FiO2. She said she had a difficult time sleeping in the mask did not fit with a large leak. She cannot sleep with this machine. Overnight oximetry on these settings with recording duration of 7 hours and 40 minutes, average saturation 94%. Low saturation 63%. Time with saturation less than or equal to 88% 6 minutes, oxygen desaturation index 5.1. ABG 7.36/55/78. Levalbuterol and Tessalon Perles added. 01/05/2024: Patient tells me she is breathing better today. Her cough persists but is better. Her shortness of breath and wheezing persists. She is afebrile. her weight today is 117.4 kg, yesterday she was 1.4 L positive on Lasix 20 p.o. b.i.d.. She used the hospital noninvasive ventilator with the AVAPS mode rate of 14, tidal volume 500, EPAP 5, minimal inspiratory pressure 6, maximal inspiratory pressure 25, I-time 1.0, rise of 1 and 32% FiO2. Patient said she slept well and could tolerate this machine. There was no leak. Patient had an overnight oximetry on these settings with recording duration of 6 hours and 56 minutes, average saturation 95%, low saturation 89%, time with saturation less than or equal to 88% was 0 minutes, oxygen desaturation index 2.1. ABG prior to removal was 7.35/53/85. Metoprolol and amiodarone held. walked 116 ft. 01/05/25: Overall the patient states that her breathing remains compromised but about the same as yesterday. Her cough has improved and she has no phlegm. Her dyspnea on exertion is the same. Currently she is on 3 L nasal cannula saturations 95%. I decreased her to 2 L. Her white blood cell count is 16.1, creatinine is 1.46. She is positive 3 L yesterday and 4.1 L since admission. Her weight is 117.2 kg her BNP is 614 which is improved from 859 on 01/02/2025. patient tells me she wore the hospital noninvasive ventilation with the AVAPS mode last night and slept well. Lasix 20 p.o. b.i.d. increased to Lasix 40 p.o. b.i.d. Last dose of prednisone 40 given. Later in the day patient had a CT scan of the chest with mild apical predominant centrilobular emphysema, small area of atelectasis versus infiltrate posterior segment right upper lobe. There is no pleural disease, interstitial lung disease, masses, or nodules. 01/06/25: patient tells me she is breathing a little bit better today. She is able to take deeper breaths. Her dry cough persists. She has no phlegm or hemoptysis. She is afebrile. White blood cell count 18.4, creatinine 1.42. Patient is on 2 L nasal cannula saturations 94%. I turned her to room air and after 4 minutes her saturations decreased to 88% and I turned her back to 1 L and her saturations were 92%. Yesterday she diuresed 2.4 L and cumulative she is positive 1.3 L since admission. Her weight today is 119 kg. Ventilator declined by insurance, attempted peer to peer for 50 minutes and was unable to schedule. walked 120 ft and rested once, required 4 L to maintain saturations 89-90% 01/07/25: overall the patient tells me that her breathing is pretty good. She has a cough And states this is not the deep painful cough anymore with no phlegm or hemoptysis. She is afebrile. White blood cell count 15.1, creatinine 1.37, on 2 L nasal cannula saturations are 93%. Patient use a hospital noninvasive ventilation with the AVAPS mode and 32% FiO2 and tolerated this well. diurese 2.4 L yesterday cumulative she is positive 1.3 L since admission. Her weight today is 119 kilos. Wheezes unchanged. 01/08/25: overall the patient tells me that her breathing is pretty good. She has a unchanged cough. She is afebrile. White blood cell count 16.5, creatinine 1.38, on 2 L nasal cannula saturations are 92%. Patient use a hospital noninvasive ventilation with the AVAPS mode and 32% FiO2 and tolerated this well. diurese 490 L yesterday cumulative she is positive 145 ml since admission. Her weight today is 116 kilos. BNP has improved to 271. Wheezes unchanged. 01/09/25: Patient tells me her breathing is stable.. She has a unchanged cough. She is afebrile. White blood cell count 15.9, creatinine 1.23, on 2 L nasal cannula saturations are 94%. Patient Slept with 4 L nasal cannula overnight and said that she did okay. ABG off of AVAPS for 24 hours 7.35//76. Overnight oximetry on 4 L with recording duration 6 hours and 48 minutes, average saturation 94%. Low saturation 88%. Time with saturation less than or equal to 88% was 0 minutes. Oxygen desaturation index 1.7. Positive 440 mL yesterday. Cumulative she is positive 585 since admission. Her weight today is 116.6. Wheezes unchanged. Later id day: formal letter of appeal to [facility] paperwork was turned in to Rene. 01/10/2025: Patient tells me she is breathing normal. Patient has been walking in the halls and does have dyspnea on exertion. She denies rest cough, phlegm or hemoptysis. When she takes a deep breath this does elicit coughing. Currently she is on 2 L nasal cannula saturations 91%. Her weight is 116.3. Patient wore the hospital BiPAP rate of 14 pressures 15/5 with 3 L bleed in and had an overnight oximetry with recording duration of 7 hours and 31 minutes. Average saturation 88%. Low saturation 63%. Time with saturation less than or equal to 88% was 232 minutes. Oxygen desaturation index 15.1. ABG prior to removal of the mass with 7.38/58/57. DATA: 01/05/25: EXAMINATION: CT diagnostic chest wo con INDICATION: RIGGINS, wheezing COMPARISON: 12/28/2024 FINDINGS: Mild emphysema. Small region with increased reticulonodular pattern at the posterior segment of the right upper lobe consistent with progression of pneumonia. Linear and bandlike atelectasis in the bilateral lower lobes and in the lingula. No pulmonary edema or pleural effusion. Heart size is normal. Atherosclerotic coronary artery calcium location and aortic valve calcification. Thoracic aorta normal in caliber. No pathologically enlarged thoracic lymphadenopathy. Again seen is a 3.5 cm mass extending posteriorly from the left thyroid lobe. Cholecystectomy clips at the gallbladder fossa. Moderate thoracic spondylosis. IMPRESSION: 1. Mild emphysema with right upper lobe pneumonia. 2. 3.5 cm left thyroid mass. 01/03/25: MODIFIED ESOPHAGRAM HISTORY: Coughing when swallowing TECHNIQUE: Modified barium esophagram was performed on 01/03/2025. I administered fluoroscopy and performed the exam with speech pathologist. Patient was seated for lateral fluoroscopic imaging for ingestion of thin liquids, pudding, solids and quantified amounts, followed by thin liquids in uncontrolled amounts. This was recorded on tape. A single fluoroscopic spot image was also recorded. The DAP for this procedure was 2.267 Gycm2. The amount of fluoroscopy time used during this procedure was 2.0 minutes. FINDINGS: Oral stage: Adequate function. Pharyngeal stage: Adequate function. Cervical/esophageal stage: Adequate function. IMPRESSION: Patient tolerated regular consistency oral feedings in the upright position. Please correlate with speech pathologist findings and specific feeding recommendations. 12/28/24: CT chest CLINICAL INDICATION: Pneumonia suspected clinically COMPARISON: Reference is made to plain film evaluation of the chest, performed approximately 12 hours earlier and dating back to 12/05/2024. Reference is also made to a CT angiogram of the chest dated 10/20/2022 FINDINGS/OBSERVATIONS: Lung: bibasilar atelectasis, unchanged from chest radiograph. The remainder the lungs are clear. HEART: The heart is borderline enlarged, without pericardial effusion. MEDIASTINUM: Redemonstration of a large left thyroid nodule, increased in size from 2022 examination. No pathologically enlarged or morphologically suspicious lymph nodes are identified within the mediastinum, bilateral axilla, within the soft tissues of the anterior chest wall. SOFT TISSUES OF THE CHEST: Unremarkable. BONES OF THE CHEST: No acute fracture. No lytic or blastic lesions are identified. IMPRESSION: No cross-sectional imaging evidence to suggest the presence of pneumonia. Bibasilar atelectasis, unchanged from a recent radiograph, as detailed above.. 12/08/2024: Home O2 assessment: Rest room air saturation 87%. Rest nasal cannula 1 L saturation 88%. Rest nasal cannula saturation 93%. Exercise nasal cannula 2 L saturation 94%. Patient requires 2 L with rest and with activity. 12/07/24: Patient had an overnight oximetry on 5 L nasal cannula with recording duration of 6 hours and 58 minutes. Average saturation 98%. Low saturation 95%. Time with saturation less than or equal to 88% was 0 minutes. Oxygen desaturation index 0. 12/06/2024: ABG on 5 L nasal cannula pH 7.39/48/97. ? 12/02/2024: Alpha 1 anti trypsin genotype capital MZ. 12/02/2024: Alpha 1 anti trypsin level 135, normal 83-199. 12/02/24: CTA chest PE protocol History: 64 years Female with . R/O PE . Findings: PULMONARY ARTERIES: No pulmonary embolus. VISUALIZED THORACIC INLET: Left thyroid nodule is noted. Ultrasound evaluation advised. MEDIASTINUM: Aorta/coronary arteries: Mild atheromatous disease. Heart/other: The heart is not enlarged. Lymph nodes: No mediastinal or hilar adenopathy. Precarinal lymph node measuring 1.6 cm noted. LUNGS: Atelectasis versus pneumonia seen in the right lung base inferiorly. Minimal atelectasis versus pneumonia in the left lung base is also noted. No pulmonary nodules or masses. No effusions. No pneumothorax. VISUALIZED UPPER abdomen: the visualized upper abdomen is normal. MUSCULOSKELETAL: Soft tissues: The superficial soft tissues are normal. Bones: Age appropriate degenerative changes of the spine. IMPRESSION: 1. No pulmonary embolism. 2. Bilateral basal atelectasis versus pneumonia. Clinical correlation advised. 12/02/2024: Echo Summary 1. The left ventricle is normal in size and systolic function. The left ventricular ejection fraction visually estimated to be 60-60%. 2. The right ventricle is dilated with normal systolic function. 3. There are no significant valvular abnormalities. 4. Technically difficult study. Left Ventricle The left ventricle is normal in size and systolic function. The left ventricular ejection fraction visually estimated to be 60-60%. Diastolic dysfunction is present. Right Ventricle The right ventricle is dilated with normal systolic function. Left Atria The left atrium is normal size. Right Atria The right atrium is normal size. RVSP 27 12/17/2023: CT Scan of the Chest without Contrast: Clinical Indication: Lung cancer screening, nicotine dependence COMPARISON: 04/06/2023 Findings: Stable enlarged left thyroid lobe. There is no evidence of any significant mediastinal, hilar or axillary lymphadenopathy. Atherosclerotic calcifications of the aorta are present. There is no evidence of pleural or pericardial effusion. There is irregular airspace opacity in the posterior right lower lobe, improved from prior exam, likely representing postinflammatory change, as there is a previous more extensive area of consolidation in this location. Mild emphysema. Images through the upper abdomen reveal no abnormalities. Impression: Lung RADS 2: Benign appearance. 12 month follow-up screening CT advised. 09/10/2022: Echo Summary 1. Technically difficult study with limited views. Regional wall motion assessment limited due to poor endomyocardial border definition despite definity contrast enhancement. 2. Left ventricular chamber dimension is normal. 3. Left ventricular systolic function is normal, estimated at 65-70%. 4. There is mildly increased left ventricular wall thickness. 5. Right ventricular chamber dimension is normal. 6. Right ventricular systolic function is moderately reduced. TAPSE 1.3. 7. There is trace tricuspid valve regurgitation. 8. Mild pulmonary hypertension, estimated pulmonary arterial systolic pressure is 37 mmHg. 9. Normal inferior vena cava with <50% collapse upon inspiration consistent with elevated right atrial pressure, 10 mmHg. 08/28/2022: Summary 1. Left ventricular chamber dimension is normal. 2. Left ventricular systolic function is normal, estimated at 60-65%. 3. The left ventricular diastolic function is grade I diastolic dysfunction. 4. Right ventricular chamber dimension is moderately enlarged. 5. Right ventricular systolic function is normal. 6. There is moderate tricuspid valve regurgitation, which may be underestimated due to the eccentricity of the jet. 7. Dilated inferior vena cava with no collapse upon inspiration consistent with elevated right atrial pressure, 15 mmHg. 8. Pulmonary hypertension with an estimated PASP of 59mmHg. Right Ventricle Right ventricular chamber dimension is moderately enlarged. Right ventricular systolic function is normal. Right Atria Right atrial chamber dimension is normal. Atrial Septum Intact interatrial septum visualized by color flow imaging. 08/27/2022: EXAMINATION: CT chest high resolution wo co DATE: 08/27/2022 16:07 INDICATION: respiratory failure TECHNIQUE: Computed tomography (CT) of the chest was performed without intravenous contrast. Automated exposure control and iterative reconstruction technique were employed. The dose-length product was 818.52 mGy-cm. COMPARISON: X-ray chest 08/27/2022 and CTA chest 07/21/2018. FINDINGS: CHEST: Endotracheal tube terminating 2.5 cm above the maria esther. Thoracic aorta: No significant dilation. Moderate arch calcification. Lung parenchyma and airways: Diffuse tree-in-bud opacities most evident in the right lung. Scattered centrilobular nodular opacities measuring up to 11 mm in the right upper lobe. Mild interlobular septal thickening. Bibasilar dependent opacities likely representing atelectasis. Mild emphysematous change. Thoracic inlet, axillae and chest wall: No thyroid or soft tissue mass. No axillary lymphadenopathy. Mediastinum: Mediastinal lymphadenopathy. Dilated central pulmonary arteries as can be seen with pulmonary arterial hypertension. Heart and pericardium: Normal heart size. Aortic valve calcification. No pericardial effusion. Coronary artery calcifications: Mild. Pleura: Trace bilateral pleural fluid. Upper abdomen: No significant finding. Thoracic bones: No acute osseous finding in the chest. IMPRESSION: 1. Tree-in-bud opacities as can be seen with atypical infection (including but not limited to: MAC, TB, fungal), ABPA, airways disease, and less likely aspiration. 2. Nodular opacity in right upper lobe should be followed after the appropriate therapy and cessation of symptoms to ensure resolution. 3. Mediastinal lymphadenopathy. 4. Trace bilateral pleural effusions. 5. Mild interstitial edema. Review of Systems Constitutional: Constitutional: Reports no additional constitutional complaints Eyes: Eyes: Reports no additional eye complaints ENT: Reports system reviewed and no additional complaints, except as documented Cardiovascular: Cardiovascular: Reports no additional cardiovascular complaints Respiratory: Respiratory: Reports no additional respiratory complaints Gastrointestinal: Gastrointestinal: Reports no additional gastrointestinal complaints Musculoskeletal: Musculoskeletal: Reports no additional musculoskeletal complaints Neurologic: Reports system reviewed and no additional complaints, except as documented Psychiatric: Psychiatric: Reports no additional psychiatric complaints Endocrine: Endocrine: Reports no additional endocrine complaints Hematologic/Lymphatic: Hematologic/Lymphatic: Reports no additional hematologic/lymphatic complaints Allergic/Immunologic: Allergic/Immunologic: Reports no additional allergic/immunologic complaints Exam Const: General: cooperative, healthy appearing and comfortable Orientation/consciousness: oriented to person, oriented to place and oriented to time HENMT: Head: normal to inspection Ears: hearing grossly normal bilaterally Eyes: General: appearance normal, both eyes and all related structures Neck: Neck: normal visual inspection Chest: Chest palpation & inspection: normal inspection of the chest Resp: Effort & Inspection: normal respiratory effort and able to speak in complete sentences Auscultation: no crackles, no rales, no rhonchi, no wheezes and diminished lung sounds Other: wheezes and coughing with any deep breathing Cardio: Jugular venous distension: no JVD GI: Inspection: normal to inspection Skin: General skin exam: normal color Neuro: General: oriented to person, oriented to place and oriented to time Extrem: General: edema Other: Psych: Appearance: grossly normal Objective Data Vital Signs Vital Signs: Vital Signs - 24 hr 01/09/25 12:00 01/09/25 13:38 01/09/25 13:55 Temperature 36.3 C L Pulse Rate 116 H 103 H Respiratory Rate 18 Blood Pressure 108/70 Pulse Oximetry 94 94 Oxygen Delivery Nasal Cannula Oxygen Flow Rate 2 Fraction of Inspired Oxygen 28 01/09/25 13:55 01/09/25 14:04 01/09/25 16:00 Temperature Pulse Rate 99 93 105 H Respiratory Rate 20 20 Blood Pressure Pulse Oximetry Oxygen Delivery Oxygen Flow Rate Fraction of Inspired Oxygen 01/09/25 19:47 01/09/25 20:00 01/09/25 20:00 Temperature 36.5 C Pulse Rate 113 H 98 106 H Respiratory Rate 20 18 Blood Pressure 120/58 L Pulse Oximetry 91 91 Oxygen Delivery Nasal Cannula Oxygen Flow Rate 2 Fraction of Inspired Oxygen 28 01/09/25 21:11 01/09/25 21:25 01/09/25 22:10 Temperature Pulse Rate 98 98 104 H Respiratory Rate 18 18 18 Blood Pressure Pulse Oximetry Oxygen Delivery BiPAP Oxygen Flow Rate Fraction of Inspired Oxygen 01/09/25 22:20 01/10/25 00:00 01/10/25 03:20 Temperature Pulse Rate 95 100 Respiratory Rate 20 Blood Pressure Pulse Oximetry 96 Oxygen Delivery Nasal Cannula BiPAP Oxygen Flow Rate 3 Fraction of Inspired Oxygen 32 01/10/25 04:00 01/10/25 05:59 01/10/25 08:00 Temperature 36.5 C Pulse Rate 96 94 Respiratory Rate 20 Blood Pressure 124/59 L Pulse Oximetry 91 92 Oxygen Delivery Nasal Cannula Oxygen Flow Rate 2 Fraction of Inspired Oxygen 01/10/25 08:00 01/10/25 09:24 01/10/25 09:24 Temperature Pulse Rate 100 105 H Respiratory Rate 16 Blood Pressure Pulse Oximetry 93 Oxygen Delivery Nasal Cannula Oxygen Flow Rate 2 Fraction of Inspired Oxygen Intake/Output Intake/Output: Intake & Output 01/07/25 01/08/25 01/09/25 01/10/25 23:59 23:59 23:59 23:59 Intake Total 4660 3340 1180 360 Output Total 5150 2900 3150 400 Balance -490 440 -1970 -40 Meds/Results Medications: Active Medications Generic Name Dose Route Start Last Admin Trade Name Freq PRN Reason Stop Dose Admin Amitriptyline HCl 10 mg 12/28/24 21:00 01/09/25 20:00 Amitriptyline Hcl 10 Mg Tablet PO 10 mg HS YODIT Administration Benzonatate 200 mg 01/03/25 09:00 01/10/25 08:09 Benzonatate 100 Mg Capsule PO 200 mg TID YODIT Administration Budesonide 0.5 mg 01/06/25 08:00 01/10/25 09:23 Budesonide Respule Neb 0.5 Mg/2 Ml Amp INHALATION 0.5 mg Q12HRT YODIT Administration Duloxetine HCl 40 mg 12/28/24 17:00 01/10/25 08:09 Duloxetine Hcl 20 Mg Capsule.Dr PO 40 mg BID YODIT Administration Enoxaparin Sodium 40 mg 01/07/25 09:00 01/10/25 08:09 Enoxaparin 40 Mg/0.4 Ml Syringe SUB-Q 40 mg DAILY YODIT Administration Escitalopram Oxalate 20 mg 12/28/24 15:30 01/10/25 08:09 Escitalopram Oxalate 10 Mg Tablet PO 20 mg DAILY YODIT Administration Ferrous Sulfate 325 mg 12/28/24 17:00 01/10/25 08:09 Ferrous Sulfate [address] BY MOUTH 325 mg BID YODIT Administration Furosemide 40 mg 01/05/25 17:00 01/10/25 08:09 Furosemide 40 Mg Tablet PO 40 mg BID YODIT Administration Guaifenesin 1,200 mg 12/28/24 21:00 01/10/25 08:09 Guaifenesin 12 Hr 600 Mg Tabcr PO 1,200 mg Q12HR YODIT Administration Ipratropium [place] 0.5 mg 01/08/25 14:00 01/10/25 09:20 Ipratropium Br 0.02% Inh Soln 0.5 Mg/2.5 Ml Vial INHALATION 0.5 mg Q6HRT YODIT Administration Levalbuterol HCl 0.63 mg 01/08/25 14:00 01/10/25 09:19 Levalbuterol Neb 1.25 Mg/3 Ml INHALATION 0.63 mg Q6HRT YODIT Administration Lidocaine 1 patch 12/31/24 11:55 01/10/25 08:10 Lidocaine 5% Patch TRANSDERM Not Given DAILY YODIT Loratadine 10 mg 01/09/25 10:30 01/10/25 08:10 Loratadine 10 Mg Tablet PO 10 mg QAM YODIT Administration Magnesium Hydroxide 30 ml 12/28/24 14:40 Magnesium Hydroxide Susp 30 Ml Udc PO HS PRN Constipation Melatonin 5 mg 12/28/24 14:40 01/09/25 19:59 Melatonin 5 Mg Tablet PO 5 mg HS PRN Administration Insomnia Montelukast Sodium 10 mg 12/29/24 09:00 01/10/25 08:10 Montelukast Sodium 10 Mg Tablet PO 10 mg DAILY YODIT Administration Pantoprazole Sodium 40 mg 12/28/24 21:00 01/10/25 08:10 Pantoprazole 40 Mg Tablet PO 40 mg Q12HR YODIT Administration Quetiapine Fumarate 25 mg 12/28/24 21:00 01/09/25 20:00 Quetiapine Fumarate 25 Mg Tablet PO 25 mg HS YODIT Administration Ropinirole HCl 4 mg 12/28/24 21:00 01/09/25 20:00 Ropinirole Hcl 1 Mg Tablet PO 4 mg HS YODIT Administration Topiramate 200 mg 12/28/24 21:00 01/10/25 08:10 Topiramate 100 Mg Tablet PO 200 mg Q12HR YODIT Administration Trazodone HCl 50 mg 12/28/24 21:00 01/09/25 20:00 Trazodone Hcl 50 Mg Tablet PO 50 mg HS YODIT Administration Trazodone HCl 150 mg 01/03/25 13:16 01/09/25 19:59 Trazodone Hcl 50 Mg Tablet PO 150 mg HS PRN Administration Insomnia Radiology Results: ITS Impressions Chest X-Ray 01/02/25 09:39 IMPRESSION: 1. Increasing opacities in the right mid and bilateral lower lung zones which could represent worsening atelectasis or pneumonia. Modified Barium Swallow 01/03/25 15:10 IMPRESSION: Patient tolerated regular consistency oral feedings in the upright position. Please correlate with speech pathologist findings and specific feeding recommendations. Chest CT 01/05/25 17:10 IMPRESSION: 1. Mild emphysema with right upper lobe pneumonia. 2. 3.5 cm left thyroid mass. Labs Labs: Laboratory Results - last 24 hr 01/10/25 01/10/25 04:58 07:18 WBC 15.0 H RBC 4.07 L Hgb 10.5 L Hct 37.2 MCV 91.4 MCH 25.8 L MCHC 28.2 L RDW 15.3 H Plt Count 315 MPV 9.5 Immature Gran % (Auto) 3.8 H Neut % (Auto) 73.9 H Lymph % (Auto) 13.6 L [place] % (Auto) 7.0 Eos % (Auto) 1.3 Baso % (Auto) 0.4 Lymph # (Auto) 2.05 [place] # (Auto) 1.1 H Eos # (Auto) 0.2 Baso # (Auto) 0.1 Abs Immat Gran (auto) 0.57 H Absolute Neuts (auto) 11.1 H Absolute Nucleated RBC 0.000 Band Neutrophils % Not Reportable Nucleated RBC % 0.0 Platelet Estimate Adequate Hypochromasia 1+ Stomatocytes 1+ Schistocytes None seen Puncture Site Right radial ABG pH 7.378 ABG pCO2 57.7 H ABG pO2 57.2 L ABG PO2/FiO2 Ratio 1.79 ABG HCO3 33.2 H ABG O2 Saturation 88.5 L ABG O2 Content 14.6 L ABG Base Excess 6.6 A-a Gradient 103.5 Oxyhemoglobin 87.7 L* Total Hemoglobin 11.8 L O2 Delivery Device Bipap O2 Liters/Min 3.0 FiO2 32 Expiratory Pressure 5 Inspiratory Pressure 15 Sodium 137 Potassium 3.2 L Chloride 96 L Carbon Dioxide 35 H Anion Gap 6 BUN 24 H Creatinine 1.27 H Estim Creat Clear Calc 51 Estimated GFR 42 L Glucose 146 H Calcium 9.1 Magnesium 2.2 Total Bilirubin 0.4 AST 14 ALT 13 Alkaline Phosphatase 88 Total Protein 7.0 Albumin 3.5
--- NOTE | 2025-01-10 12:49 | P.DS_ITS ---
DS: Admitting Diagnosis Discharge Date 01/10/2025 Admitting Diagnosis Fatigued and hypoxic DS: Discharge Diagnosis Discharge Diagnosis (1) Acute exacerbation of chronic obstructive pulmonary disease: Code(s): J44.1 - Chronic obstructive pulmonary disease with (acute) exacerbation Status: Acute Assessment and Plan: Please refer to hospital course for brief summary Has been on oxygen for over 5 years. 50 pack year hx tobacco use, quit 08/23/2022. Home meds: Trelegy, montelukast 10, albuterol PRN Was intitially on Bipap, 5/10 abg worse on bipap 15/5,28%. will use 20/5, 32% tonight with repeat abg in am and apnea link overnight. --stopped solumedrol and started prednisone 40 mg po. Pulm continues to follow --Pulmonology following, appreciate recommendations: Could not tolerate bipap but tolerating noninvasive ventillation with AVAPs Awaiting pulm recs today (2) Iron deficiency anemia: Code(s): D50.9 - Iron deficiency anemia, unspecified Status: Chronic Assessment and Plan: * Continue home meds once they are confirmed. * Monitor and trend CBC. (3) Atrial fibrillation: Code(s): I48.91 - Unspecified atrial fibrillation Status: Chronic Assessment and Plan: Held amiodarone 200mg daily, metoprolol 100mg BID due to Possible Amiodarone toxicity and COPD worsening with Metoprolol * Rate controlled, decreased metoprolol to 50mg BID yesterday, pulmonary holding amiodarone for concern for subacute amiodarone toxicity Cardiology following (4) Acute on chronic congestive heart failure: Code(s): I50.9 - Heart failure, unspecified Status: Chronic Assessment and Plan: * Chronic heart failure * Last ECHO showing normal LVSF w/EF of 60-65% on 12/02/24. * Daily weight * Accurate Intake and output * stable (5) Insomnia: Code(s): G47.00 - Insomnia, unspecified Status: Acute Assessment and Plan: insomnia- melatonin doesnot help much added trazadone 12/29- helped-will continue avoid atarax - 01/03 wants dose increase as did not help much last night -will increase to 150 mg and monitor (6) Hallucination: Code(s): R44.3 - Hallucinations, unspecified Status: Acute Assessment and Plan: Reports shadows/smoke in her vision intermittently, has noticed when she has a UTI in the past. Intermittent, but started about [address] no acute fidnings. 01/01 UA negative (7) Thyroid nodule: Code(s): E04.1 - Nontoxic single thyroid nodule Status: Acute Assessment and Plan: CT Chest showed a large left thyroid nodule, increased in size since 2022, 3.5cm mass --Check TSH --following with endocrinology outpatient for thyroid mass (8) Weakness: Code(s): R53.1 - Weakness Status: Acute Assessment and Plan: Patient reports cardiac arrest 3 years ago that required CPR. Subsequently had lower extremity weakness and noticed jerking movements to lower extremities. Cardiac arrest was in the setting of renal failure but records are not available. Reports gradually increased weakness and associated with myalgias. Differential includes deconditioning, autoimmune, paraneoplastic, steroid related --Check VIRIDIANA, TSH, CK, aldolase --PT/OT DS: Summary Hospital Course Hospital Course: 64 year old female pt with PMH of A-fib off of Eliquis for two years secondary to abdominal rectal sheath hematoma, COPD, Diastolic dysfunction, anemia, GERD, CVA and HF came to the ER from home with complaints of feeling fatigued and dyspneic. She was recently admitted and was just discharged on 12/08/24 w/acute COPD exacerbation. She was determined to need 5L oxygen per nocturnal oximetry and completed abx and discharged to follow up with Oncology Radiation Physician as outpt as well as Cardiology as outpt. Patient is a former smoker that quit 2021, she does not use alcohol or any illicit drugs. Patient was recently treated with steroids at the time of discharge. She denies any chest pain but is very fatigued and difficult to awaken. She was requiring BiPAP to maintain her saturations. Emergency room workup was performed with labs, imaging. Chest x-ray is pending but appears similar to most recent chest x-ray. CBC showing leukocytosis at 13.4 otherwise unremarkable, metabolic panel unremarkable. BNP is 563, magnesium is 1.7. Patient on BiPAP with settings 14/8, respiratory rate of 21 and 40% FiO2 with pH of 7.329, pCO2 of 72.1 PO2 of 42.9 bicarb of 37.1. Patient given a Xopenex treatment and received IV steroids. I assumed care on 01/10/2025 the of discharge Cardiology evaluated the patient in regards to AFib. Patient is not on any anticoagulant due to rectal sheath hematoma. Recommend to discontinue metoprolol and can be resumed later date if patient COPD stable and PFTs can confirm there is no asthma. They recommend to continue amiodarone for now and check PFTs serially every 6 months and stop if amiodarone there is a declining DLCO of greater than 20%. Pulmonology evaluated the patient in regards to COPD. Following a the recommendation from pulmonology:Trelegy 100-60 2.5-25 at 1 puff q.day Rescue levalbuterol 2 puffs q.4 hours p.r.n. shortness of breath or wheezing benzonatate 200 mg p.o. t.i.d. Montelukast 10 mg q.day Loratadine 10 mg p.o. q.day Oxygen at rest and with activity per formal home O2 assessment which I have ordered. [facility], pressures 15/5 and 5 L bleed in. formal Letter of appeal to [facility] paperwork was turned in on 01/09/2025. On the day of discharge, the patient was seen and examined. Vital signs were stable. Physical exam were stable and labs were reviewed at length. Discharge instructions, medications, and follow-up appointments were discussed with the patient at length and all day questions were answered. ER warnings were given. Status at Discharge Cognitive/behavioral status at discharge: Stable Time Spent with Patient Time attestation: Total time spent providing and/or coordinating discharge services: 45 minutes Exam Narrative: General - Awake and alert. No acute distress Eyes - PERRLA, EOM intact ENT - No thrush, No erythema Neck - No noticeable or palpable swelling Lymph Nodes - No lymphadenopathy Cardiovascular - RRR no m/r/g, no JVD Lungs: Decreased, No wheezing, use of accessory muscles, no crackles Skin - Skin warm and dry, no wounds or rashes Abdomen - Normal bowel sounds, abdomen soft and nontender Extremities - No edema, cyanosis or clubbing Musculoskeletal - 2/5 strength lower extremities, normal range of motion, no swollen or erythematous joints. Neurological ? Alert and oriented x 3, CN 2-12 grossly intact. Psych: Normal mood and affect Const: General: comfortable Other: Obese, somnolent HENMT: Face/Nose/Sinus: Normal nares present Mouth: Yes dry mucous membranes Eyes: General: appearance normal, both eyes and all related structures Sclera: sclerae normal Pupils: Equal, round and reactive pupils present EOM: EOMs intact bilaterally Neck: Neck: supple and no JVD Lymphatic: lymphadenopathy not noted Chest: Other: not tender Resp: Effort & Inspection: abnormal respiratory effort (Increased effort) Auscultation: diminished lung sounds bilateral (Bases) Other: scattered wheezing Cardio: Rate: regular rate Rhythm: regular rhythm Heart sounds: no gallops, no murmurs and no rubs GI: Inspection: non-distended Auscultation: normal bowel sounds Skin: General skin exam: No normal color (pale), No lesion and No rashes Lesions: no lesions noted Rashes: no rashes noted Wounds: no wounds Neuro: Cranial nerves: Yes Equal, round and reactive pupils present Speech: normal speech Motor exam (neuro): Abnormal motor strength present (Generalized weakness) Extrem: General: edema Other: BLE edema. Not pitting Psych: Mental Status: mental status grossly normal Affect: normal affect DS: Data Data Completed and Pending Labs on day of discharge: Labs from last 24 hours 01/10/25 01/10/25 07:18 04:58 WBC 15.0 H RBC 4.07 L Hgb 10.5 L Hct 37.2 MCV 91.4 MCH 25.8 L MCHC 28.2 L RDW 15.3 H Plt Count 315 MPV 9.5 Immature Gran % (Auto) 3.8 H Neut % (Auto) 73.9 H Lymph % (Auto) 13.6 L [place] % (Auto) 7.0 Eos % (Auto) 1.3 Baso % (Auto) 0.4 Lymph # (Auto) 2.05 [place] # (Auto) 1.1 H Eos # (Auto) 0.2 Baso # (Auto) 0.1 Abs Immat Gran (auto) 0.57 H Absolute Neuts (auto) 11.1 H Absolute Nucleated RBC 0.000 Band Neutrophils % Not Reportable Nucleated RBC % 0.0 Platelet Estimate Adequate Hypochromasia 1+ Stomatocytes 1+ Schistocytes None seen Puncture Site Right radial ABG pH 7.378 ABG pCO2 57.7 H ABG pO2 57.2 L ABG PO2/FiO2 Ratio 1.79 ABG HCO3 33.2 H ABG O2 Saturation 88.5 L ABG O2 Content 14.6 L ABG Base Excess 6.6 A-a Gradient 103.5 Oxyhemoglobin 87.7 L* Total Hemoglobin 11.8 L O2 Delivery Device Bipap O2 Liters/Min 3.0 FiO2 32 Expiratory Pressure 5 Inspiratory Pressure 15 Sodium 137 Potassium 3.2 L Chloride 96 L Carbon Dioxide 35 H Anion Gap 6 BUN 24 H Creatinine 1.27 H Estim Creat Clear Calc 51 Estimated GFR 42 L Glucose 146 H Calcium 9.1 Magnesium 2.2 Total Bilirubin 0.4 AST 14 ALT 13 Alkaline Phosphatase 88 Total Protein 7.0 Albumin 3.5 Imaging Radiologist's impression: ITS Impressions Chest X-Ray 12/28/24 05:22 Impression: Probable chronic interstitial disease with basilar predominance. Chest CT 12/28/24 15:42 IMPRESSION: No cross-sectional imaging evidence to suggest the presence of pneumonia. Bibasilar atelectasis, unchanged from a recent radiograph, as detailed above.. Chest X-Ray 01/02/25 09:39 IMPRESSION: 1. Increasing opacities in the right mid and bilateral lower lung zones which could represent worsening atelectasis or pneumonia. Modified Barium Swallow 01/03/25 15:10 IMPRESSION: Patient tolerated regular consistency oral feedings in the upright position. Please correlate with speech pathologist findings and specific feeding recommendations. Chest CT 01/05/25 17:10 IMPRESSION: 1. Mild emphysema with right upper lobe pneumonia. 2. 3.5 cm left thyroid mass. Discharge Plan Discharge Attending physician on discharge: Teofilo Farfan Consulting providers: Zay rGay; Kendal Lopez Discharging Clinician: Teofilo Farfan Anticipated Discharge Date/Time: 01/10/25 12:58 Patient Disposition: Home Activity: as tolerated Diet: heart healthy Discharge Instructions: Need to check PFTs serially every 6 months and stop if amiodarone there is a declining DLCO of greater than 20% BiPAP at night per [employer] Direct machine through [facility] with set rate 14, pressures 15/5 and 5 L bleed in. formal Letter of appeal to [facility] paperwork was turned in on 01/09/2025. Check blood pressure 1 to 2 times a day. Record and bring into your doctor for review. Call your doctor if your blood pressure is greater than 180/110 or less than 90/45. Walk with cane or other assist device. Take precautions to avoid falls. Rise slowly from a lying or sitting position. Pause before standing or walking. Contact your doctor or call 911 and come to the Emergency Room if you have any type of trauma, lightheadedness with standing or other worrisome symptoms. Avoid NSAIDs (ibuprofen, naproxen, Aleve). Tylenol is safe to take. Follow-up with your primary care provider in 1-2 weeks. Please call for appointment. Follow-up with Cardiology in 2-4 weeks. Please call for an appointment. Thank you for using [facility] for your health care needs. oxygen 2 liters at rset 4 liters with activity. Patient Instructions: Antibiotic Form Patient Language: French Stand Alone Forms: General Discharge Information Follow-up/Referrals: Ben Golden MD [Primary Care Provider] - (check PFTs serially every 6 months and stop if amiodarone there is a declining DLCO of greater than 20%.) Kendal Lopez MD [Physician] - (check PFTs serially every 6 months and stop if amiodarone there is a declining DLCO of greater than 20%.) Zay Gray MD [Physician] - (check PFTs serially every 6 months and stop if amiodarone there is a declining DLCO of greater than 20%.) Discharge Medications: New benzonatate 100 mg Capsule 200 mg PO TID Qty: 30 0RF levalbuterol HCl 1.25 mg/3 mL Solution For Nebulization 0.63 mg inhalation Q6HRT Qty: 30 0RF loratadine 10 mg Tablet 10 mg PO QAM Qty: 30 0RF Continued amitriptyline 10 mg tablet 10 mg PO HS topiramate 100 mg tablet 200 mg PO BID ropinirole 4 mg tablet 4 mg PO HS trazodone 50 mg tablet 50 mg PO HS omeprazole 40 mg capsule,delayed release(DR/EC) 40 mg PO DAILY montelukast 10 mg tablet 10 mg PO DAILY escitalopram oxalate 20 mg tablet 20 mg PO DAILY potassium chloride 20 mEq Packet 20 meq PO DAILY Qty: 30 0RF ferrous sulfate 325 mg (65 mg iron) tablet 325 mg PO BID Qty: 60 0RF duloxetine 20 mg capsule,delayed release(DR/EC) 40 mg PO BID amiodarone 200 mg tablet 200 mg PO DAILY 30 Days Qty: 30 0RF Rx Instructions: Start 200mg daily from 12/15/24 Trelegy Ellipta 100-62.5-25 mcg blister with device 1 inh inhalation DAILY Qty: 28 1RF quetiapine 25 mg tablet 25 mg PO HS magnesium hydroxide [Milk of Magnesia] 400 mg/5 mL Suspension 30 ml PO HS PRN (Reason: Constipation) melatonin 5 mg Capsule 5 mg PO HS PRN (Reason: Insomnia) furosemide 20 mg Tablet 20 mg PO BID Qty: 60 0RF Discontinued albuterol sulfate [Proventil HFA] 90 mcg/actuation Hfa Aerosol Inhaler 2 puff inhalation QID PRN (Reason: shortness of breath) Qty: 1 0RF metoprolol tartrate 50 mg Tablet 100 mg PO Q12HR 30 Days Qty: 120 0RF prednisone 10 mg tablet 10 mg PO DIRECTED Qty: 32 0RF Rx Instructions: see taper instructions 4 tabs daily x 3 days, then, 3 tabs daily x 3 days, 2 tabs daily x 3days, 1 tab daily x 3 days, then 5mg daily x 3 days, then stop. Date of admission: 12/29/24 14:07 Primary Care Provider: Ben Golden Admitting Provider: Beto Mullen Attending physician on admission: Emani Rock Condition: Stable
--- NOTE | 2025-01-10 14:05 | HOMEO2EVAL ---
Evaluation was performed at [facility] Home Oxygen Evaluation RC: Home Oxygen (O2) Evaluation Start: 01/10/25 09:29 Freq: ONCE Status: Active Protocol: RPE Activity Type Activity Date Activity User E-sign Co-sign Detail Recorded Client Recorded Date Recorded By Document 01/10/25 13:15 CARMEN [email or web address] 01/10/25 14:05 CARMEN Document 01/10/25 13:16 CARMEN [email or web address] 01/10/25 14:05 CARMEN Document 01/10/25 13:17 CARMEN [email or web address] 01/10/25 14:05 CARMEN Document 01/10/25 13:20 CARMEN [email or web address] 01/10/25 14:05 CARMEN Document 01/10/25 13:21 CARMEN [email or web address] 01/10/25 14:05 CARMEN Document 01/10/25 13:22 CARMEN [email or web address] 01/10/25 14:05 CARMEN Document 01/10/25 13:30 CARMEN [email or web address] 01/10/25 14:05 CARMEN 01/10/25 01/10/25 01/10/25 13:15 13:16 13:17 Home O2 Evaluation [Oxygen] -Test Phase Resting Resting Resting -Oxygen Delivery Room Air Nasal Cannula Nasal Cannula -Oxygen Flow Rate (L/min) 1 2 [Pulse Oximetry] -Pulse Oximetry (90-100 %) 87 L 88 L 92 [Pulse Rate] -Pulse Rate (60-100 beats/min) 86 [Evaluation] -Activity Tolerance [Exercise] -Ambulation Distance (feet) -Ambulation Distance (meters) [Comments] -Home Oxygen Evaluation Comments [Charges] -Evaluation Charges O2 Evaluation by Pulmonary 01/10/25 01/10/25 01/10/25 13:20 13:21 13:22 Home O2 Evaluation [Oxygen] -Test Phase Exercise Exercise Exercise -Oxygen Delivery Nasal Cannula Nasal Cannula Nasal Cannula -Oxygen Flow Rate (L/min) 2 3 4 [Pulse Oximetry] -Pulse Oximetry (90-100 %) 85 L 87 L 92 [Pulse Rate] -Pulse Rate (60-100 beats/min) 99 101 H 100 [Evaluation] -Activity Tolerance Good [Exercise] -Ambulation Distance (feet) 50 -Ambulation Distance (meters) 15.23 [Comments] -Home Oxygen Evaluation Comments Pt requires 2 liters at rest and 4 liters with activity [Charges] -Evaluation Charges 01/10/25 13:30 Home O2 Evaluation [Oxygen] -Test Phase Resting -Oxygen Delivery Nasal Cannula -Oxygen Flow Rate (L/min) 2 [Pulse Oximetry] -Pulse Oximetry (90-100 %) 93 [Pulse Rate] -Pulse Rate (60-100 beats/min) 93 [Evaluation] -Activity Tolerance [Exercise] -Ambulation Distance (feet) -Ambulation Distance (meters) [Comments] -Home Oxygen Evaluation Comments [Charges] -Evaluation Charges
--- NOTE | 2025-01-10 14:06 | PCRCNOTE ---
Home O2 eval done, 2 liters at rest, 4 liters with activity, 5 liters nocturnally with niv/bipap. RN notified. Pt has tank for transport home. Pt has [facility]
== END 2025-01-10 15:06 | disposition home or self-care (01) | DRG 190 ==
LOC: ANHED 04:23 → ANHIMU 09:34 → ANH2MED 12-29 23:01
PROVIDERS: Internal Medicine; Internal Medicine Pulmonary Disease; Nurse Practitioner; Nurse Practitioner Acute Care; Nurse Practitioner Adult Health; Admitting Provider Internal Medicine; Emergency Provider Emergency Medicine; PCP Internal Medicine; Visit Provider General Practice
DX: J44.1 Chronic obstructive pulmonary disease with (acute) exacerbation (principal); I50.33 Acute on chronic diastolic (congestive) heart failure; J96.21 Acute and chronic respiratory failure with hypoxia; I13.0 Hypertensive heart and chronic kidney disease with heart failure and stage 1 through stage 4 chronic kidney disease, or unspecified chronic kidney disease; R44.3 Hallucinations, unspecified; D50.9 Iron deficiency anemia, unspecified; I48.91 Unspecified atrial fibrillation; J43.2 Centrilobular emphysema; Z87.891 Personal history of nicotine dependence; Z99.81 Dependence on supplemental oxygen; K21.9 Gastro-esophageal reflux disease without esophagitis; G25.81 Restless legs syndrome; F41.9 Anxiety disorder, unspecified; N18.30 Chronic kidney disease, stage 3 unspecified; G47.00 Insomnia, unspecified; R53.1 Weakness; Z20.822 Contact with and (suspected) exposure to COVID-19
CPT/HCPCS: 36415; 36600; 71045; 71250; 80048; 80053; 81001; 82085; 82550; 82607; 82803; 82805; 83036; 83735; 83880; 84145; 84443; 85018; 85025; 85027; 85380; 85652; 86038; 86140; 86225; 86235; 86364; 87449; 87633; 87637; 87899; 92611; 93005; 94002; 94003; 94618; 94640; 94668; 94669; 94762; 96374; 96375; 96376; 97110; 97116; 97161; 97530; 99285; A9270; G0378; J0696; J1650; J1938; J2919; J7512

== ENCOUNTER 2025-04-19 08:56 | Outpatient (CLI) | payer MEDICARE, MEDICAID, SELFPAY ==
--- NOTE | ~2025-04-19 | US_ITS ---
Exam: US thyroid INDICATION: Thyroid mass TECHNIQUE: Real-time sonographic images of the thyroid gland were obtained. COMPARISON: None available FINDINGS: The right thyroid lobe measures 4.3 x 2.1 x 2.3 cm. The left thyroid lobe measures 5.5 x 3.3 x 3.4 cm. There is a 3.8 x 2.6 x 3.7 cm solid hypoechoic left thyroid nodule. There is a 5 x 4 x 4 mm mixed cystic and solid in the right thyroid lobe. There is a 3.8 x 2.6 x 3.7 cm complex nodule in the left mid thyroid lobe. There is a 10 x 9 x 6 mm cystic and solid oval nodule in the left thyroid lobe with a few punctate echogenic foci likely calcifications. IMPRESSION: 1. There is a 3.8 cm left thyroid nodule. TR 4. A fine-needle aspiration is recommended. 2. There is a 1.0 cm partially calcified left thyroid nodule. TR 4. A fine- needle aspiration is recommended. Reviewed, dictated and finalized at location Q. IMPRESSION: 1. There is a 3.8 cm left thyroid nodule. TR 4. A fine-needle aspiration is re commended. 2. There is a 1.0 cm partially calcified left thyroid nodule. TR 4. A fine-need le aspiration is recommended.
--- OUTSIDE RECORDS SUMMARY | 2025-04-19 09:05 | XMS_ITS | Clinical Summary ---
Author Organization [facility] Address [address] [address] Phone Care Team Providers Care Distiller Name Role Phone Unavailable Primary Care Provider [...]
--- OUTSIDE RECORDS SUMMARY | 2025-04-19 09:05 | XMS_ITS | Clinical Summary ---
Author Organization [facility] Address [address] [place] [address] Phone Care Team Providers Care Volunteer Specialist Name Role Phone Unavailable Primary Care Provider [...] on file Legal Sex Female 10:10 AM DIRECT CARE WORKER Gender Identity Not on file Sexual Orientation Not on file Last Filed Vital Signs Vital Sign Reading Time Taken Comments Blood Pressure 116/68 09/24/2022 11:01 AM DIRECT CARE WORKER Pulse 96 09/24/2022 11:01 AM DIRECT CARE WORKER Temperature 36.3 C (97.4 F) 09/24/2022 11:01 AM DIRECT CARE WORKER Respiratory Rate 16 09/24/2022 11:0 1 AM DIRECT CARE WORKER Oxygen Saturation 92% 09/24/2022 4:5 5 PM DIRECT CARE WORKER Inhaled Oxygen Concentration - - Weight 99.8 kg (220 lb) 09/22/2022 6:00 AM DIRECT CARE WORKER bedscale not zeroed Height 167.6 cm (5' 6) 09/17/2022 10:2 8 AM DIRECT CARE WORKER Body Mass Index 35.51 09/17/2022 10:28 AM DIRECT CARE WORKER Plan of Treatment Health Maintenance Due Date [...] 2018 OSTEOPOROSIS SCREENING 2023 INFLUENZA VACCINE (#1) 2025 Insurance MEDICAID [place] [facility] Advance Directives For more information, please contact: [phone] * Full Code (Latest Code Status on File) Date Activated Date Inactivated Comments 09/11/2022 7:58 PM 09/24/2022 7:43 PM
== END 2025-04-19 08:57 | disposition home or self-care (01) ==
LOC: CHSIMG 08:58
PROVIDERS: PCP Internal Medicine; Visit Provider Internal Medicine
DX: E04.1 Nontoxic single thyroid nodule (principal)
CPT/HCPCS: 76536

== ENCOUNTER 2025-05-25 14:43 | Inpatient (IN) | payer MEDICARE, MEDICAID, SELFPAY ==
[2025-05-25] VITALS (45 sets, daily range): BP systolic 120–158; BP diastolic 67–105; PULSE 120–128; RESP 12–26; TEMP 37.3; O2SAT 88–98; BMI 50.9
--- NOTE | ~2025-05-25 | XR_ITS ---
EXAMINATION: XR chest 1V portable COMPARISON: No comparisons available. HISTORY: SOB FINDINGS: Moderate pulmonary venous congestion. Bilateral interstitial airspace opacities. Nodular density left upper lobe 7 x 8 mm. No pneumothorax. Moderate cardiomegaly. Mediastinal and hilar contours are within normal limits. Bony thorax no acute abnormality. Miscellaneous: None Impression: CHF. Superimposed probable pneumonia. Left lung nodule. CT chest recommended Reviewed, dictated and finalized at location P. Impression: CHF. Superimposed probable pneumonia. Left lung nodule. CT chest recommended
--- NOTE | ~2025-05-25 | CT_ITS ---
CTA CHEST CLINICAL HISTORY: sob, pul edema . COMPARISON: Chest x-ray today CT chest 01/05/2025 TECHNIQUE: Helical CTA performed from thoracic inlet to upper abdomen IV contrast information not listed in PACS Coronal, sagittal reformats. Multiplanar MIPS CT images acquired with automatic exposure control for dose reduction DLP: 1088 mGy-cm FINDINGS: Pulmonary arteries: No PE. Thoracic Aorta: No dissection or aneurysm. Heart/pericardium: Coronary artery calcifications.. RV/LV ratio: Mildly elevated. Lungs/Pleura: Emphysema. Interlobular septal thickening. Large right pleural effusion, associated dependent atelectasis. Tracheobronchial tree: Patent. Nodes: No enlarged nodes. Small right hilar nodes Bones: No acute bony abnormality. Soft tissues: Large left thyroid nodule as before. Visualized upper abdomen: Hepatomegaly. IMPRESSION: 1. No PE. 2. Large right pleural effusion. 3. Interstitial pulmonary edema. 4. Emphysema. Recommend annual screening CT chest. Reviewed, dictated and finalized at location R.
--- NOTE | 2025-05-25 14:52 | ECG_ITS ---
Test Date: 2025-05-25 14:54:40 Measurements Intervals [facility] Rate: 124 P: 0 W[place]: 0 QRS: 25 QRSD: 166 T: -28 QT: 316 QTc: 455 Interpretive Statements ATRIAL FLUTTER/TACHYCARDIA WITH RAPID VENTRICULAR RESPONSE RIGHT BUNDLE BRANCH BLOCK ABNORMAL ECG Compared to ECG 12/31/2024 11:08:19 SINUS RHYTHM NO LONGER PRESENT Electronically Signed On 05-25-2025 15:15:58 CDT by Hong Meade D.O.
--- OUTSIDE RECORDS SUMMARY | 2025-05-25 15:35 | XMS_ITS | Clinical Summary ---
Author Organization [facility] Address [address] [address] Phone Care Team Providers Care Loom Blower Name Role Phone Unavailable Primary Care Provider [...]
--- OUTSIDE RECORDS SUMMARY | 2025-05-25 15:35 | XMS_ITS | Clinical Summary ---
Author Organization [facility] Address [address] [place] [address] Phone Care Team Providers Care Fire Supervisor Name Role Phone Unavailable Primary Care [...] on file Legal Sex Female 10:10 AM AGRISCIENCE TECHNOLOGY INSTRUCTOR Gender Identity Not on file Sexual Orientation Not on file Last Filed Vital Signs Vital Sign Reading Time Taken Comments Blood Pressure 116/68 09/24/2022 11:01 AM AGRISCIENCE TECHNOLOGY INSTRUCTOR Pulse 96 09/24/2022 11:01 AM AGRISCIENCE TECHNOLOGY INSTRUCTOR Temperature 36.3 C (97.4 F) 09/24/2022 11:01 AM AGRISCIENCE TECHNOLOGY INSTRUCTOR Respiratory Rate 16 09/24/2022 11:0 1 AM AGRISCIENCE TECHNOLOGY INSTRUCTOR Oxygen Saturation 92% 09/24/2022 4:5 5 PM AGRISCIENCE TECHNOLOGY INSTRUCTOR Inhaled Oxygen Concentration - - Weight 99.8 kg (220 lb) 09/22/2022 6:00 AM AGRISCIENCE TECHNOLOGY INSTRUCTOR bedscale not zeroed Height 167.6 cm (5' 6) 09/17/2022 10:2 8 AM AGRISCIENCE TECHNOLOGY INSTRUCTOR Body Mass Index 35.51 09/17/2022 10:28 AM AGRISCIENCE TECHNOLOGY INSTRUCTOR Plan of Treatment Health Maintenance Due Date [...] INFLUENZA VACCINE (#1) 2025 Insurance MEDICAID [place] [employer] [facility] [facility] Advance Directives For more information, please contact: [phone] * Full Code (Latest Code Status on File) Date Activated Date Inactivated Comments 09/11/2022 7:58 PM 09/24/2022 7:43 PM
--- OUTSIDE RECORDS SUMMARY | 2025-05-25 15:35 | XMS_ITS | Clinical Summary ---
Author Organization [facility] Address [address] [place] [address] Care Team Providers Care Finish Inspector Name Role Phone Heri Juarez MD Unavailable Lucho Golden MD Primary Care Provider [phone] Allergies No known active allergies Medications furosemide [...] of other vein of right upper extremity ([facility]),PAD (peripheral artery disease) 20-30 MMHg [...] (DVT) of right upper extremity, unspecified vein ([facility]) 11/27/2020 Acute deep vein thrombosis ( DVT) of other vein of right upper extremity ([facility]) 10/12/2018 PAD (peripheral artery disease) 10/12/2018 Thrombus 09/15/2018 Jugular vein occlusion ([facility]) 019 Family History Relation Status Comments Father Maternal Grandfather Maternal Grandmother Mother Paternal Grandfather Paternal Grandmother Sister 1 Alive Sister 2 Alive Social History Tobacco Use Types Packs/Day Years Used Date Smoking Tobacco: Former Cigarettes Q uit: 2015 Smokeless Tobacco: Never Alcohol Use Standard Drinks/Week Comments No 0 (1 standard drink = 0.6 oz pur e alcohol) [facility] Utilities Answer Date Recorded In the [...] place to sleep or slept in a penitentiary (including now)? 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 Gender Identity Not on file Sexual Orientation Not on file Occupation Industry Job Start Date Job End Date Not on file Not on file Not on file Not on file Last Filed Vital Signs Vital Sign Reading Time Taken Comments Blood Pressure 154/46 07/20/2023 7:51 AM COAL CHUTE WORKER Pulse 94 07/20/2023 7:59 AM COAL CHUTE WORKER Temperature 36.8 C (98.2 F) 07/20/2023 7:51 AM COAL CHUTE WORKER Respiratory Rate 18 07/19/2023 4:11 AM COAL CHUTE WORKER Oxygen Saturation 95% 07/20/2023 7:51 AM COAL CHUTE WORKER Inhaled Oxygen Concentration - - Weight 115.8 kg (255 lb 4.7 oz) 07/15/2023 2:53 AM COAL CHUTE WORKER Height 165.1 cm (5' 5) 07/13/2023 9:51 PM COAL CHUTE WORKER Body Mass Index 42.48 07/13/2023 9:51 PM COAL CHUTE WORKER Plan of Treatment Health Maintenance Due [...] Scan (General) 2023 COVID-19 Vaccine (1 - season) 2025 Hepatitis C Completed 09/16/2022, 08/25, 09/16/2022, Additional [...] planning Lifestyle No Gricelda Arreaga, RN Insurance [employer] MEDICARE Advance Directives * Full Code (Latest Code Status on File) Date Activated Date Inactivated Comments 07/13/2023 7:44 PM 07/20/2023 3:30 PM * Full Code Date Activated Date Inactivated Comments 09/14/2018 7:08 PM 09/19/2018 4:55 PM Care Teams Finish Inspector Relationship Specialty Start Date End Date Lucho Golden MD [address] [place] [address] PCP - General INTERNAL MEDICINE 07/14/23 Heri Juarez MD Vascular/Ticket Sales Agent INTERNAL MEDICINE 09/21/18
[2025-05-25] MEDS: FUROSEMIDE INJ 40 MG/4 ML VIAL IV PUSH ×2 (15:56→21:15)
[2025-05-25 16:15] LABS: Hematocrit 37.8 % (37.0-47.0); Hemoglobin 10.3 g/dL (12.0-15.0); Immature Granulocyte Percent A 0.7 % (0-0.5); Lymphocytes Absolute Auto 0.67 K/mm3 (0.9-3.2); Mean Corpuscular HGB Conc 27.2 g/dl (32-36); Mean Corpuscular Hemoglobin 24.3 pg (26-34); Mean Corpuscular Volume 89.4 fl (80-100); Nucleated Red Blood Cells Absolute Auto 0.000 K/mm3 (0.0-0.012); Nucleated Red Blood Cells Perc 0.0 % (0.0-0.2); Platelet Count Result 244 k/mm3 (150-375); Red Blood Count 4.23 M/mm3 (4.2-5.4); White Blood Count 10.5 K/mm3 (4.5-10.0)
[2025-05-25 16:29] LABS: INR 1.0; Prothrombin Time 12.9 Seconds (11.1-14.7)
[2025-05-25 16:30] LABS: Partial Thromboplastin Time 27.7 Seconds (22.3-36.8)
[2025-05-25 16:42] LABS: Alanine Aminotransferase 13 U/L (6-35); Albumin Level 4.1 g/dL (3.5-5.1); Alkaline Phosphatase 108 U/L (38-126); Anion Gap 4 mmol/L (4-12); Aspartate Amino Transferase 17 U/L (14-36); Bilirubin,Total 0.3 mg/dL (0.2-1.3); Blood Urea Nitrogen 14 mg/dL (7-17); Calcium 9.3 mg/dL (8.4-10.2); Carbon Dioxide 39 mmol/L (22-30); Chloride 93 mmol/L (98-107); Estimated CRCL calculation 63 ml/min; Estimated Glomerular Filt Rate 49; Glucose 104 mg/dL (65-110); Potassium 5.0 mmol/L (3.4-5.0); Sodium 136 mmol/L (137-145); Total Protein 8.2 g/dL (6.3-8.2)
[2025-05-25 16:44] LABS: NT Pro B Type Natriuretic Pept 475 pg/mL (19.9-100)
[2025-05-25 17:17] LABS: Hypochromasia 1+; Ovalocytes 1+; Schistocytes None Seen
--- NOTE | 2025-05-25 18:32 | ED.GENADULT ---
HPI - General Adult General Chief complaint: Shortness of Breath/Dyspnea Stated complaint: SOB Time Seen by Provider: 05/25/25 14:49 History of Present Illness HPI narrative: 65-year-old female with history of congestive heart failure and AFib presents emergency department for evaluation for worsening shortness of breath and water weight gain over the last 2 months. Patient states that she has approximately 40 lb of weight gain before this month and approximately additional 30 lb of water weight gain this month. Patient did have follow-up with her leather tanner today and patient was referred to the emergency department for dissipated admission for diuresis. Reports he typically has a heart rate in the 120s and that is worried as today. Patient reports he is typically on 3-4 L of oxygen but is requiring 6 L of oxygen today Related Data Home Medications ?Medication ?Instructions ?Recorded ?Confirmed ?Last Taken ?Type montelukast 10 mg tablet 10 mg PO DAILY 09/07/21 05/25/25 12/27/24 History omeprazole 40 mg capsule,delayed 40 mg PO DAILY 09/07/21 05/25/25 12/27/24 History release magnesium hydroxide 400 mg/5 mL 30 ml PO HS PRN Constipation 10/09/22 05/25/25 12/27/24 History oral suspension (Milk of Magnesia) melatonin 5 mg capsule 5 mg PO HS PRN Insomnia 10/09/22 05/25/25 12/27/24 History quetiapine 25 mg tablet 25 mg PO HS 10/09/22 05/25/25 12/27/24 History ropinirole 4 mg tablet 4 mg PO HS 10/20/22 05/25/25 12/27/24 History topiramate 100 mg tablet 200 mg PO BID 10/20/22 05/25/25 12/27/24 History duloxetine 20 mg capsule,delayed 20 mg PO 03/16/25 05/25/25 Unknown History release Allergies Allergy/AdvReac Type Severity Reaction Status Date / Time No Known Drug Allergies Allergy Unknown Verified 05/25/25 15:03 Review of Systems Review of Systems: All systems reviewed & are unremarkable except as noted in HPI and below PMFSH Past Medical History Medical History Diastolic dysfunction Echo in August 2022 showed normal LV function with an EF of 60 to 65%, grade 1 diastolic dysfunction, moderate enlarged right ventricular chamber, normal right ventricular systolic function, moderate tricuspid valve regurgitation, and pulmonary hypertension with an estimated PASP of 59 mmHg. Hypoxic respiratory failure Atrial flutter with rapid ventricular response Acute exacerbation of chronic obstructive pulmonary disease C. difficile colitis Renal failure Requiring temporary dialysis and CRRT in 09/15. 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) Congestive heart failure COPD (chronic obstructive pulmonary disease) Surgical History Surgical History History of cholecystectomy History of 3 sections History of left knee replacement Family History Family History Father Hypertension Acute myocardial infarction Sibling Hypertension Mother Family history of heart disease in male family member before age 55 Brother Acute myocardial infarction Father Acute myocardial infarction Other Cerebrovascular accident Family history of cardiovascular disease Social History Social History Social History: Surrogate medical decision maker: Sainestor Shin, brother. Code status: Full code. Smoking packs per day: 1 Smoking cigarettes per day: 20.0 Years smoked: 50 Smoking pack-years: 50.00 Smoking status: Former smoker Tobacco type: cigarettes Second hand tobacco smoke exposure: No Smoking end date: 08/23/22 Alcohol intake: never Drinks per week: 0 Substance use: never Substance use type: does not use Do You Feel Safe in your Home?: Yes Lack of Transportation: No Lack of Food: Never True Current Housing: I Have Housing Concerned About Future Housing: No Difficulty Paying Gas/Electric Bills: No Difficulty Paying for Meds: No Currently Unemployed: No Education: High School Diploma/GED Difficulty w/ Childcare or Family Care: No Living arrangements: with family Additional living arrangements comments: Lives with family in [place]. 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 Spiritual care concerns: No Exam Narrative: APPEARANCE: Ill-appearing HEAD: normocephalic, atraumatic. EYES: PERRLA/EOMI, conjunctivae clear. NOSE: Normal no drainage EARS:TMS clear with good light reflex. THROAT: Pharynx clear, no exudate. NECK: Supple. No adenopathy, no masses. RESPIRATORY: Congested lung sounds with expiratory CARDIOVASCULAR: Regular rate and rhythm without murmurs rubs or gallops. ABDOMINAL: Soft, nontender, nondistended, normal bowel sounds MUSCULOSKELETAL: Lower extremity edema NEURO: Alert. Cranial nerves II through XII intact. Good gait. Good coordination SKIN: Warm, dry. Normal Color Course Vital Signs Vital signs: Vital Signs Temperature 99.1 F 05/25/25 14:45 Pulse Rate 123 H 05/25/25 14:45 Respiratory Rate 20 05/25/25 14:45 Blood Pressure 144/81 H 05/25/25 14:45 Pulse Oximetry 95 05/25/25 14:45 Oxygen Delivery Nasal Cannula 05/25/25 14:45 Oxygen Flow Rate 6 05/25/25 14:45 Temperature 99.1 F 05/25/25 14:45 Pulse Rate 123 H 05/25/25 14:45 Respiratory Rate 20 05/25/25 14:45 Blood Pressure 144/81 H 05/25/25 14:45 Pulse Oximetry 95 05/25/25 15:02 Oxygen Delivery Nasal Cannula 05/25/25 15:02 Oxygen Flow Rate 6 05/25/25 15:02 Medical Decision Making [facility] Narrative Medical decision making narrative: 65-year-old female presents emergency department for evaluation for worsening shortness of breath. Patient is currently afebrile but does have a leukocytosis 10.5 hemoglobin 10.3. Patient's INR is 1.0. Patient has a creatinine of 1.1 which is better than her baseline and may reflect fluid overload. Patient's proBNP is mildly elevated at 475. Patient does have congested lung sounds and bilateral lower extremity edema. Chest x-ray was concerning for CHF and possible pneumonia CTA was recommended. CTA showed no pulmonary embolism, large right pleural effusion, interstitial pulmonary edema and emphysema. Patient was treated with IV Lasix, nebulized albuterol. Patient follows up with Dr. Meade for cardiology. Differential Diagnosis Differential Diagnosis: COVID, RSV, influenza, pneumonia, CHF, pulmonary embolism Vital Signs Vital Signs: Vital Signs Temperature 99.1 F 05/25/25 14:45 Pulse Rate 123 H 05/25/25 14:45 Respiratory Rate 20 05/25/25 14:45 Blood Pressure 144/81 H 05/25/25 14:45 Pulse Oximetry 95 05/25/25 14:45 Oxygen Delivery Nasal Cannula 05/25/25 14:45 Oxygen Flow Rate 6 05/25/25 14:45 Temperature 99.1 F 05/25/25 14:45 Pulse Rate 123 H 05/25/25 14:45 Respiratory Rate 20 05/25/25 14:45 Blood Pressure 144/81 H 05/25/25 14:45 Pulse Oximetry 95 05/25/25 15:02 Oxygen Delivery Nasal Cannula 05/25/25 15:02 Oxygen Flow Rate 6 05/25/25 15:02 Lab Data Lab results reviewed: Yes I reviewed the patient's lab results. 05/25/25 16:06 05/25/25 16:06 Labs: Lab Results 05/25/25 Range/Units 16:06 WBC 10.5 H (4.5-10.0) K/mm3 RBC 4.23 (4.2-5.4) M/mm3 Hgb 10.3 L (12.0-15.0) g/dL Hct 37.8 (37.0-47.0) % MCV 89.4 (80-100) fl MCH 24.3 L (26-34) pg MCHC 27.2 L (32-36) g/dl RDW 15.1 H (11.5-14.5) % Plt Count 244 (150-375) k/mm3 MPV 9.0 (7.4-10.4) fl Immature Gran % (Auto) 0.7 H (0-0.5) % Neut % (Auto) 88.7 H (45.5-73.1) % Lymph % (Auto) 6.4 L (18.3-44.2) % Knott % (Auto) 2.9 (2.6-8.5) % Eos % (Auto) 0.8 (0-4.4) % Baso % (Auto) 0.5 (0.2-1.2) % Lymph # (Auto) 0.67 L (0.9-3.2) K/mm3 Knott # (Auto) 0.3 (0.1-0.6) K/mm3 Eos # (Auto) 0.1 (0-0.3) K/mm3 Baso # (Auto) 0.1 (0.0-0.1) K/mm3 Abs Immat Gran (auto) 0.07 H (0.00-0.031) K/mm3 Absolute Neuts (auto) 9.3 H (1.3-6.7) K/mm3 Absolute Nucleated RBC 0.000 (0.0-0.012) K/mm3 Band Neutrophils % Not Reportable Nucleated RBC % 0.0 (0.0-0.2) % Platelet Estimate Adequate (Adequate) Hypochromasia 1+ Ovalocytes 1+ Schistocytes None seen PT 12.9 (11.1-14.7) Seconds INR 1.0 APTT 27.7 (22.3-36.8) Seconds Sodium 136 L (137-145) mmol/L Potassium 5.0 (3.4-5.0) mmol/L Chloride 93 L (98-107) mmol/L Carbon Dioxide 39 H (22-30) mmol/L Anion Gap 4 (4-12) mmol/L BUN 14 D (7-17) mg/dL Creatinine 1.11 H (0.7-1.0) mg/dL Estim Creat Clear Calc 63 ml/min Estimated GFR 49 L (59 - ) Glucose 104 (65-110) mg/dL Calcium 9.3 (8.4-10.2) mg/dL Total Bilirubin 0.3 (0.2-1.3) mg/dL AST 17 (14-36) U/L ALT 13 (6-35) U/L Alkaline Phosphatase 108 (38-126) U/L NT-Pro-B Natriuret Pep 475 H (19.9-100) pg/mL Total Protein 8.2 (6.3-8.2) g/dL Albumin 4.1 (3.5-5.1) g/dL Imaging Data Radiologist's impression: Impressions Chest X-Ray 05/25/25 15:22 Impression: CHF. Superimposed probable pneumonia. Left lung nodule. CT chest recommended Chest CTA 05/25/25 18:03 IMPRESSION: 1. No PE. 2. Large right pleural effusion. 3. Interstitial pulmonary edema. 4. Emphysema. Recommend annual screening CT chest. Discharge Plan Discharge Clinical Impression: CHF (congestive heart failure) Patient Disposition: Still a Patient Condition: Serious Patient Language: Chilean Prescriptions: No Action topiramate 100 mg tablet 200 mg PO BID ropinirole 4 mg tablet 4 mg PO HS omeprazole 40 mg capsule,delayed release(DR/EC) 40 mg PO DAILY montelukast 10 mg tablet 10 mg PO DAILY prednisone 20 mg tablet 40 mg PO DAILY 5 Days Qty: 10 0RF azelastine 137 mcg (0.1 %) spray,non-aerosol 1 spray intranasal Q12H Qty: 30 5RF Rx Instructions: administer into each nostril fluticasone propionate [Flonase Allergy Relief] 50 mcg/actuation spray,suspension 1 spray intranasal BID Qty: 16 5RF Rx Instructions: administer into each nostril doxycycline hyclate 100 mg tablet 100 mg PO BID Qty: 14 0RF duloxetine 20 mg capsule,delayed release(DR/EC) 20 mg PO amiodarone 200 mg tablet 200 mg PO DAILY Qty: 30 5RF diltiazem HCl [Cardizem CD] 240 mg capsule,extended release 24hr 240 mg PO DAILY Qty: 30 5RF levalbuterol tartrate [Xopenex HFA] 45 mcg/actuation HFA aerosol inhaler 2 inh inhalation Q6H PRN (Reason: shortness of breath or wheezing) Qty: 15 6RF benzonatate 200 mg capsule 200 mg PO BID PRN (Reason: cough) Qty: 90 6RF loratadine [Claritin] 10 mg tablet 10 mg PO DAILY Qty: 30 6RF levalbuterol HCl 0.63 mg/3 mL solution for nebulization 0.63 mg inhalation Q6H Qty: 90 6RF Rx Instructions: Q6 hours as needed for shortness of breath and wheezing potassium chloride 20 mEq Packet 20 meq PO DAILY Qty: 30 0RF ferrous sulfate 325 mg (65 mg iron) tablet 325 mg PO BID Qty: 60 0RF Trelegy Ellipta 100-62.5-25 mcg blister with device 1 inh inhalation DAILY Qty: 28 1RF quetiapine 25 mg tablet 25 mg PO HS magnesium hydroxide [Milk of Magnesia] 400 mg/5 mL Suspension 30 ml PO HS PRN (Reason: Constipation) melatonin 5 mg Capsule 5 mg PO HS PRN (Reason: Insomnia) furosemide 20 mg Tablet 20 mg PO BID Qty: 60 0RF loratadine 10 mg Tablet 10 mg PO QAM Qty: 30 0RF Follow-up/Referrals: Ben Golden MD [Primary Care Provider, Internal Medicine]
--- NOTE | 2025-05-25 18:44 | PC.NURSE ---
Pt's linen was saturated after purewick got out of place. Pt cleaned up, clean linens and gown applied, new depends and new purewick placed on pt. Pt repositioned for comfort. Call light in reach. Pt denies any further needs at this time.
--- NOTE | 2025-05-25 23:25 | ADMGEN ---
This patient, Cony Shin, was admitted to IMU Room 202-. Patient/family oriented to hospital policies and general routines including ID bracelet, bed and alarms, visiting hours, pain management, procedures, bathroom and other care routines, personal items, smoking policy, room service/diet, and visiting hours. Information on how to activate the Rapid Response Team has been discussed. Patient/Family are encouraged to report perceived risks to care and to ask questions if they do not understand what they are told or what they should do.
[2025-05-26] VITALS (24 sets, daily range): BP systolic 128–157; BP diastolic 56–92; PULSE 123–130; RESP 19–26; TEMP 36.6–37.4; O2SAT 90–98
--- NOTE | 2025-05-26 | ECHO_ITS ---
Patient Info Name: Cony Shin Age: 65 years : 1960 Gender: Female Ht: 64 in Wt: 296 lbs BSA: 2.55 m2 HR: 128 bpm BP: 151 / 79 mmHg Technical Quality: Fair Exam Date: 05/26/2025 2:00 PM Patient Status: I Admit Date: 05/26/2025 Exam Type: CA echo doppler color flow Complete two-dimensional, color flow and Doppler transthoracic echocardiogram is performed. Staff Referring Physician: Joanna Garrett SOFTWARE DESIGN ENGINEER Business Planner: Pranav Booker III Attending Provider: Al Crawford Summary 1. Complete two-dimensional, color flow and Doppler transthoracic echocardiogram is performed. 2. Left ventricular systolic function is normal, estimated at 60-65. 3. Right ventricular chamber dimension is mildly enlarged. 4. Right ventricular systolic function is normal. 5. Left atrial chamber dimension is mildly enlarged. 6. There is trace aortic valve regurgitation. 7. There is mild mitral valve regurgitation. 8. There is mild tricuspid valve regurgitation. 9. Moderate pulmonary hypertension, estimated pulmonary arterial systolic pressure is 55 mmHg. Left Ventricle Left ventricular chamber dimension is normal. Left ventricular systolic function is normal, estimated at 60-65. There is no increased left ventricular wall thickness. Left ventricular septal wall motion is normal. The left ventricular diastolic function is abnormal. Right Ventricle Right ventricular chamber dimension is mildly enlarged. Right ventricular systolic function is normal. Left Atria Left atrial chamber dimension is mildly enlarged. Right Atria Right atrial chamber dimension is normal. Aortic Valve The aortic valve is trileaflet. There is no aortic valve sclerosis. There is no aortic valve stenosis. There is trace aortic valve regurgitation. There is mild aortic valve calcification. Pulmonic Valve The pulmonic valve is normal. There is no pulmonic valve stenosis. There is no pulmonic regurgitation. Mitral Valve The mitral valve has normal leaflets. There is no mitral valve stenosis. There is mild mitral valve regurgitation. There is mild mitral valve calcification. Tricuspid Valve The tricuspid valve leaflets are normal. There is no significant tricuspid valve stenosis. There is mild tricuspid valve regurgitation. Moderate pulmonary hypertension, estimated pulmonary arterial systolic pressure is 55 mmHg. Pericardium/Pleural The pericardium appears normal. There is no pericardial effusion. Inferior Vena Cava Normal inferior vena cava with <50% collapse upon inspiration consistent with elevated right atrial pressure, 10 mmHg. Aorta The aortic root size at the sinus of Valsalva is normal. The prox ascending aorta size is normal. Left Ventricular Outflow Tract Name Value Normal LVOT 2D LVOT Diameter 2.0 cm LVOT Doppler LVOT Peak Velocity 129 cm/s LVOT Peak Gradient 7 mmHg LVOT Mean Gradient 3 mmHg LVOT VTI 22 cm LVOT VTI/AV VTI Ratio 0.6 LVOT Stroke Volume 65 ml LVOT CO 8.0 l/min LVOT CI 3.2 l/min/m2 Pulmonic Valve Name Value Normal PV Doppler PV Peak Velocity 127 cm/s PV Peak Gradient 6 mmHg PV Mean Gradient 1 mmHg Mitral Valve Name Value Normal MV Doppler MV Peak Gradient 15 mmHg MV Mean Gradient 9 mmHg MV Area (Cont Eq VTI) 2.5 cm2 MV Regurgitation Doppler MR Peak Gradient 128 mmHg MV Diastolic Function MV E Peak Velocity 149 cm/s MV Decel Time (PW) 173 ms MV Annular TDI MV E/e' (Septal) 17.0 MV E/e' (Lateral) 13.9 MV E/e' (Average) 15.5 Tricuspid Valve Name Value Normal TV Regurgitation Doppler TR Peak Velocity 335 cm/s TR Peak Gradient 45 mmHg Estimated PAP/RSVP RA Pressure 10 mmHg <=5 PA Systolic Pressure 55 mmHg <36 RV Systolic Pressure 55 mmHg <36 TV Annular TDI TV Lateral Queenie s' Velocity 14.0 cm/s >=9.5 Aortic Valve Name Value Normal AV Doppler AV Peak Velocity 238 cm/s AV Peak Gradient 23 mmHg AV Mean Gradient 11 mmHg AV VTI 39 cm AV Area (Cont Eq VTI) 1.7 cm2 >=3.0 AV Area (Cont Eq Frank) 1.6 cm2 AV DI (Frank) 0.54 AV Regurgitation 2D LVOT Area 3.0 cm2 Ventricles Name Value Normal LV Dimensions 2D/MM IVS Diastolic Thickness (2D) 0.9 cm 0.6-1.0 LVID Diastole (2D) 5.3 cm 3.8-5.2 LVIW Diastolic Thickness (2D) 1.1 cm 0.6-0.9 LVID Systole (2D) 3.6 cm 2.2-3.5 LVOT Diameter 2.0 cm LV Mass (2D Cubed) 204.93 g 67.00-162.00 LV Mass Index (2D Cubed) 80 g/m2 43-95 Relative Wall Thickness (2D) 0.41 <=0.42 LV Fractional Shortening/Ejection Fraction 2D/MM LV Fractional Shortening (2D) 32 % 27-45 LV EF (2D Teichholz) 59 % LV Diastolic Volume (4C MOD) 69 ml LV EF (4C MOD) 66 % LV Diastolic Volume (2C MOD) 103 ml LV EF (2C MOD) 53 % LV Diastolic Volume (BP MOD) 92 ml 46-106 LV Diastolic Volume Index (BP MOD) 36 ml/m2 29-61 LV Systolic Volume (BP MOD) 35 ml 14-42 LV Systolic Volume Index (BP MOD) 14 ml/m2 8-24 LV EF (BP MOD) 63 % 54-74 LV Diastolic Length (4C) 7.5 cm LV Systolic Length (4C) 6.0 cm LV Stroke Volume (4C MOD) 45 ml Atria Name Value Normal LA Dimensions LA Volume (4C A-L) 59 ml LA Volume (BP A-L) 65 ml RA Dimensions RA Systolic Major M[place]ips Length (4C) 5.7 cm 2.2-2.8 RA Area (4C) 32.9 cm2 <=18.0 Report Signatures
--- NOTE | 2025-05-26 02:23 | PM.IMHP ---
H&P: HPI History of Present Illness Date/Time: 05/26/25 02:23 Chief Complaint: Shortness of breath Narrative: This is a 65-year-old female patient who has a history of congestive heart failure and atrial fibrillation. She was seen by her juvenile probation officer today and she stated that she had gained 32 lb in 1 month. The patient has lower extremity edema and is short of breath with exertion. She has COPD and is chronically on oxygen. Her last echo 12/02/24 Echo: TDS. EF 60-65%, diastolic dysfunction, RVE, trace MR/TR. The patient was sent to the emergency room from her juvenile probation officer's office today. The patient is typically on oxygen 3-4 L but was requiring 6 L today. Her white count was noted to be 10.5. Her sodium was 136, chloride 93, carbon dioxide 39, creatinine 1.11 with a normal BUN of 14. GFR is 49 which is improved from her baseline. BNP 475. Chest x-ray was read as CHF superimposed probable pneumonia. Left lung nodule. CT chest recommended. CTA was read as no PE, large right pleural effusion, interstitial pulmonary edema, and emphysema. Recommend annual screening at [address] CT chest. The patient was given a nebulizer treatment, and Lasix in the emergency room. The patient is being admitted to observation status on the date of service of 05/26/2025. Review of Systems Constitutional: Constitutional: Reports as per HPI and Reports no additional constitutional complaints Eyes: Eyes: Reports as per HPI and Reports no additional eye complaints ENT: Reports system reviewed and no additional complaints, except as documented and Reports Normal hearing present Cardiovascular: Cardiovascular: Reports no additional cardiovascular complaints Respiratory: Respiratory: Reports as per HPI and Reports no additional respiratory complaints Gastrointestinal: Gastrointestinal: Reports as per HPI and Reports no additional gastrointestinal complaints Genitourinary: Genitourinary: Reports no additional female genitourinary complaints Musculoskeletal: Musculoskeletal: Reports no additional musculoskeletal complaints Integumentary/Breasts: Skin/Breast: Reports system reviewed and no additional complaints, except as docu Neurologic: Reports system reviewed and no additional complaints, except as documented and Reports Normal hearing present Psychiatric: Psychiatric: Reports no additional psychiatric complaints and Reports as per HPI Hematologic/Lymphatic: Hematologic/Lymphatic: Reports no additional hematologic/lymphatic complaints Allergic/Immunologic: Allergic/Immunologic: Reports no additional allergic/immunologic complaints [facility] Past Medical History Medical History Diastolic dysfunction Echo in August 2022 showed normal LV function with an EF of 60 to 65%, grade 1 diastolic dysfunction, moderate enlarged right ventricular chamber, normal right ventricular systolic function, moderate tricuspid valve regurgitation, and pulmonary hypertension with an estimated PASP of 59 mmHg. Hypoxic respiratory failure Atrial flutter with rapid ventricular response Acute exacerbation of chronic obstructive pulmonary disease C. difficile colitis Renal failure Requiring temporary dialysis and CRRT in 09/15. 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) Congestive heart failure COPD (chronic obstructive pulmonary disease) Surgical History Surgical History (Updated 05/26/25 @ 02:53 by Joanna Garrett APRN) History of tonsillectomy and adenoidectomy History of cholecystectomy History of 3 sections History of left knee replacement Family History Family History Father Hypertension Acute myocardial infarction Sibling Hypertension Mother Family history of heart disease in male family member before age 55 Brother Acute myocardial infarction Father Acute myocardial infarction Other Cerebrovascular accident Family history of cardiovascular disease Social History Social History (Updated 05/26/25 @ 02:53 by Joanna Garrett APRN) Social History: She is from her Sai and they live in separate homes. She has 3 sons with kidney. She is disabled. Surrogate medical decision maker: Sai Shin, Code status: Full code. Smoking packs per day: 1 Smoking cigarettes per day: 20.0 Years smoked: 50 Smoking pack-years: 50.00 Smoking status: Former smoker Tobacco type: cigarettes Second hand tobacco smoke exposure: Yes Smoking end date: 08/23/22 Alcohol intake: never Drinks per week: 0 Substance use: never Substance use type: does not use Do You Feel Safe in your Home?: Yes Lack of Transportation: No Lack of Food: Never True Current Housing: I Have Housing Concerned About Future Housing: No Difficulty Paying Gas/Electric Bills: No Difficulty Paying for Meds: No Currently Unemployed: No Education: High School Diploma/GED Difficulty w/ Childcare or Family Care: No Living arrangements: with family Additional living arrangements comments: Lives with family in [place]. 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 Spiritual care concerns: No Meds Home Medications and Allergies Home Medications ?Medication ?Instructions ?Recorded ?Confirmed ?Type montelukast 10 mg tablet 10 mg PO DAILY 09/07/21 05/26/25 History omeprazole 40 mg capsule,delayed 40 mg PO DAILY 09/07/21 05/26/25 History release melatonin 5 mg capsule 5 mg PO HS PRN Insomnia 10/09/22 05/26/25 History quetiapine 25 mg tablet 25 mg PO HS 10/09/22 05/26/25 History furosemide 20 mg tablet 20 mg PO BID #60 tabs 10/10/22 05/26/25 Rx ropinirole 4 mg tablet 4 mg PO HS 10/20/22 05/26/25 History topiramate 100 mg tablet 200 mg PO BID 10/20/22 05/26/25 History potassium chloride 20 mEq oral 20 meq PO DAILY #30 ea 10/23/22 05/26/25 Rx packet ferrous sulfate 325 mg (65 mg 325 mg PO BID #60 tabs 10/25/22 05/26/25 Rx iron) tablet fluticasone fur. 100 mcg-umeclid 1 inh inhalation DAILY #28 ea 12/08/24 05/26/25 Rx 62.5 mcg-vilant 25 mcg inhalat.powder (Trelegy Ellipta) loratadine 10 mg tablet 10 mg PO QAM #30 tabs 01/10/25 05/26/25 Rx benzonatate 200 mg capsule 200 mg PO BID PRN cough #90 caps 01/31/25 05/26/25 Rx loratadine 10 mg tablet (Claritin) 10 mg PO DAILY #30 tabs 01/31/25 05/26/25 Rx amiodarone 200 mg tablet 200 mg PO DAILY #30 tabs 03/16/25 05/26/25 Rx duloxetine 20 mg capsule,delayed 20 mg PO DAILY 03/16/25 05/26/25 History release diltiazem HCl 240 mg 240 mg PO DAILY #30 caps 04/13/25 05/26/25 Rx capsule,extended release 24 hr (Cardizem CD) azelastine 137 mcg (0.1 %) nasal 1 spray intranasal Q12H #30 mL 05/23/25 05/26/25 Rx spray doxycycline hyclate 100 mg tablet 100 mg PO BID #14 tabs 05/23/25 05/26/25 Rx fluticasone propionate 50 1 spray intranasal BID #16 grams 05/23/25 05/26/25 Rx mcg/actuation nasal spray,suspension (Flonase Allergy Relief) spironolactone 25 mg tablet 25 mg PO DAILY 05/25/25 05/26/25 History trazodone 100 mg tablet 100 mg PO HS 05/25/25 05/26/25 History Allergies Allergy/AdvReac Type Severity Reaction Status Date / Time No Known Drug Allergies Allergy Unknown Verified 05/25/25 15:03 Vital Signs Vital Signs - 24 hr 05/25/25 14:45 05/25/25 14:50 05/25/25 15:00 Temperature 99.1 F Pulse Rate 123 H 123 H Respiratory Rate 20 14 Blood Pressure 144/81 H Pulse Oximetry 95 95 95 Oxygen Delivery Nasal Cannula Nasal Cannula Oxygen Flow Rate 6 6 05/25/25 15:00 05/25/25 15:01 05/25/25 15:02 Temperature Pulse Rate 124 H 124 H Respiratory Rate 21 H 23 H Blood Pressure 150/100 H Pulse Oximetry 98 97 95 Oxygen Delivery Nasal Cannula Oxygen Flow Rate 6 05/25/25 15:17 05/25/25 15:31 05/25/25 15:45 Temperature Pulse Rate 124 H Respiratory Rate 20 Blood Pressure Pulse Oximetry 96 96 Oxygen Delivery Oxygen Flow Rate 05/25/25 15:46 05/25/25 16:02 05/25/25 16:17 Temperature Pulse Rate Respiratory Rate Blood Pressure 120/105 H Pulse Oximetry 94 97 94 Oxygen Delivery Oxygen Flow Rate 05/25/25 16:36 05/25/25 16:46 05/25/25 17:16 Temperature Pulse Rate Respiratory Rate Blood Pressure Pulse Oximetry 96 93 88 L Oxygen Delivery Oxygen Flow Rate 05/25/25 17:30 05/25/25 17:49 05/25/25 18:00 Temperature Pulse Rate Respiratory Rate Blood Pressure Pulse Oximetry 96 96 95 Oxygen Delivery Oxygen Flow Rate 05/25/25 18:00 05/25/25 18:01 05/25/25 18:17 Temperature Pulse Rate 124 H Respiratory Rate Blood Pressure 148/78 H Pulse Oximetry 96 95 Oxygen Delivery Oxygen Flow Rate 05/25/25 18:41 05/25/25 18:45 05/25/25 19:00 Temperature Pulse Rate 123 H Respiratory Rate 15 Blood Pressure Pulse Oximetry 94 95 96 Oxygen Delivery Oxygen Flow Rate 05/25/25 19:01 05/25/25 19:02 05/25/25 19:15 Temperature Pulse Rate 124 H Respiratory Rate 20 Blood Pressure 132/67 Pulse Oximetry 96 96 96 Oxygen Delivery Oxygen Flow Rate 05/25/25 19:16 05/25/25 19:20 05/25/25 19:24 Temperature Pulse Rate 123 H 123 H 120 H Respiratory Rate 24 H 26 H 26 H Blood Pressure 158/93 H Pulse Oximetry 95 96 Oxygen Delivery Nasal Cannula Oxygen Flow Rate 5 05/25/25 19:30 05/25/25 19:31 05/25/25 19:55 Temperature Pulse Rate 124 H Respiratory Rate Blood Pressure 131/76 Pulse Oximetry 92 90 91 Oxygen Delivery Oxygen Flow Rate 05/25/25 20:02 05/25/25 20:15 05/25/25 20:30 Temperature Pulse Rate Respiratory Rate Blood Pressure Pulse Oximetry 91 91 92 Oxygen Delivery Oxygen Flow Rate 05/25/25 20:45 05/25/25 21:01 05/25/25 21:14 Temperature Pulse Rate 126 H Respiratory Rate 22 H Blood Pressure 149/71 H Pulse Oximetry 95 91 91 Oxygen Delivery Oxygen Flow Rate 05/25/25 21:15 05/25/25 21:23 05/25/25 21:30 Temperature Pulse Rate 127 H 127 H 127 H Respiratory Rate 20 25 H 17 Blood Pressure 149/82 H Pulse Oximetry 90 92 94 Oxygen Delivery Oxygen Flow Rate 05/25/25 21:45 05/25/25 22:04 05/25/25 22:29 Temperature Pulse Rate 127 H 128 H Respiratory Rate 13 14 Blood Pressure Pulse Oximetry 95 95 94 Oxygen Delivery Oxygen Flow Rate 05/25/25 22:30 05/25/25 23:11 05/26/25 00:00 Temperature Pulse Rate 128 H 128 H Respiratory Rate 12 15 24 H Blood Pressure Pulse Oximetry 95 94 90 Oxygen Delivery Nasal Cannula Oxygen Flow Rate 4 05/26/25 00:05 Temperature 99.3 F Pulse Rate 128 H Respiratory Rate 20 Blood Pressure 134/92 H Pulse Oximetry 93 Oxygen Delivery Oxygen Flow Rate Exam Const: General: cooperative, comfortable, no acute distress, well developed, awake and Physically active Orientation/consciousness: oriented to person, oriented to place, oriented to time and patient oriented x3 Limitations: no limitations HENMT: Head: normal to inspection, No palpable skull fracture present, normocephalic and atraumatic Eyes: General: appearance normal, both eyes and all related structures Alignment and Position: alignment normal Periorbital: periorbital findings normal Eyelids: eyelids normal Neck: Neck: normal visual inspection, full ROM, no lymphadenopathy, trachea midline and supple Chest: Chest palpation & inspection: normal inspection of the chest Resp: Effort & Inspection: normal respiratory effort Auscultation: clear to auscultation bilaterally Percussion: percussion normal Cardio: Palpation: normal PMI Rate: regular rate and tachycardic Rhythm: regular rhythm Heart sounds: S1 normal heart sound present and S2 normal heart sound present Peripheral pulses: Peripheral pulses 2+ throughout GI: Inspection: normal to inspection Percussion: Yes normal to percussion Auscultation: normal bowel sounds Rectal Exam: deferred : General: Yes no CVA tenderness Back/Spine/Pelvis: Back: no CVA tenderness Cervical Spine: cervical ROM normal Skin: General skin exam: normal color Lesions: no lesions Rashes: no rashes Trauma: no lacerations or abrasions Wounds: no wounds Hair: normal Nails: normal Neuro: General: oriented to person, oriented to place, oriented to time and patient oriented x3 Cranial nerves: Yes Equal, round and reactive pupils present and Yes Normal hearing present Cognition (Neuro): normal cognition Speech: normal speech Motor exam (neuro): 5/5 motor strength present throughout Sensory Exam: normal sensation Extrem: General: normal to inspection Right upper extremity: normal to inspection and shoulder/upper arm Left upper extremity: normal to inspection and shoulder/upper arm Other: 3+ pitting edema bilaterally Psych: Appearance: grossly normal Mental Status: mental status grossly normal Speech and movement: Normal speech and movement present Affect: normal affect Attitude: cooperative Thought process: Normal thought process present Thought content: Yes Normal thought content present Insight: Good insight present (Psych) Judgement: Good judgement present (Psych) H&P: Results Labs Labs: Short CBC 05/25/25 Range/Units 16:06 WBC 10.5 H (4.5-10.0) K/mm3 Hgb 10.3 L (12.0-15.0) g/dL Hct 37.8 (37.0-47.0) % Plt Count 244 (150-375) k/mm3 BMP 05/25/25 16:06 Sodium 136 L Potassium 5.0 Chloride 93 L Carbon Dioxide 39 H BUN 14 D Creatinine 1.11 H Glucose 104 Calcium 9.3 Liver Function 05/25/25 Range/Units 16:06 Total Bilirubin 0.3 (0.2-1.3) mg/dL AST 17 (14-36) U/L ALT 13 (6-35) U/L Alkaline Phosphatase 108 (38-126) U/L Albumin 4.1 (3.5-5.1) g/dL ECG Interpretation: Test Date: 2025-05-25 14:54:40 Measurements Intervals [place] Rate: 124 P: 0 MO: 0 QRS: 25 QRSD: 166 T: -28 QT: 316 QTc: 455 Interpretive Statements ATRIAL FLUTTER/TACHYCARDIA WITH RAPID VENTRICULAR RESPONSE RIGHT BUNDLE BRANCH BLOCK ABNORMAL ECG Compared to ECG 12/31/2024 11:08:19 SINUS RHYTHM NO LONGER PRESENT Electronically Signed On 05-25-2025 15:15:58 CDT by Hong Meade D.O. Imaging Chest x-ray: Radiologist's impression: Impressions Chest X-Ray 05/25/25 15:22 Impression: CHF. Superimposed probable pneumonia. Left lung nodule. CT chest recommended Chest CTA 05/25/25 18:03 IMPRESSION: 1. No PE. 2. Large right pleural effusion. 3. Interstitial pulmonary edema. 4. Emphysema. Recommend annual screening CT chest. Assessment and Plan Assessment and plan (1) Acute on chronic congestive heart failure: Code(s): I50.9 - Heart failure, unspecified Status: Chronic Assessment and Plan: -the patient was seen in Dr. Meade's office yesterday and he referred her to the emergency room. -the patient stated that she has gained 32 lb in 1 month. -the patient stated that she has been taking her Lasix as prescribed. -continue with a cardiac diet/heart healthy diet -strict I and O. she is currently using a PureWick -fluid restrictions -daily weights -Lasix IV daily -a large pleural effusion was seen on the CT scan. Since the patient is requiring more oxygen I felt that it was best that we proceed with a thoracentesis. -cardiology has been consulted she sees Dr. Meade -12/02/24 Echo: TDS. EF 60-65%, diastolic dysfunction, RVE, trace MR/TR. Retrieved from Cardiology note -the patient stated that she is getting some relief with the IV Lasix. -monitor BMPs daily -her BNP is 475. Her BnPs are typically elevated at between 614 and 859. -she has 2+ to 3+ pitting edema to lower extremities. - (2) Atrial flutter with rapid ventricular response: Code(s): I48.92 - Unspecified atrial flutter Status: Acute Assessment and Plan: -according to her records the patient's heart rate is typically fast -patient is no longer on anticoagulation as she refuses since she has had prior rectus sheath hematoma twice on Eliquis. Angel Vasc score is 3. -patient's heart rate remains in the 120s. -she is on amiodarone and diltiazem (3) Chronic kidney disease, stage 3: Code(s): N18.30 - Chronic kidney disease, stage 3 unspecified Status: Acute Assessment and Plan: -monitor BMP daily. -patient's creatinine is 1.11 which is improved from her baseline of 1.23-1.38. -BUN is 14 which is improved from her baseline of 23-24. Her estimated creatinine clearance. Is now 63 compared her baseline of 47-52. Her estimated GFR is 49 which has improved from her baseline of 04/22/2042. (4) Chronic obstructive pulmonary disease: Code(s): J44.9 - Chronic obstructive pulmonary disease, unspecified Status: Chronic Assessment and Plan: -the patient is typically on oxygen at 2-3 L at home. She was turned up to 6 L when she came into the emergency room. However after reviewing her pulmonology office visit on 05/23/2025 it was noted that the patient has a 5 mL bleed into her BiPAP at night. She was getting resting asses in saturations at 80% on 3 L. while walking her O2 saturations were 70% while walking with 5 L. it was also noted that pulmonology wanted to continue with her trilogy in the patient stated she is no longer taking it. -wean O2 to maintain oxygen levels greater than 90%. -was noted that the patient has chronic hypercapnia respiratory failure from her COPD. - (5) Acute on chronic respiratory failure with hypoxia and hypercapnia: Code(s): J96.21 - Acute and chronic respiratory failure with hypoxia; J96.22 - Acute and chronic respiratory failure with hypercapnia Status: Acute
[2025-05-26] MEDS: MELATONIN 5 MG TABLET PO (02:30)
[2025-05-26 04:16] LABS: Hematocrit 35.1 % (37.0-47.0); Hemoglobin 9.7 g/dL (12.0-15.0); Immature Granulocyte Percent A 0.8 % (0-0.5); Lymphocytes Absolute Auto 0.51 K/mm3 (0.9-3.2); Mean Corpuscular HGB Conc 27.6 g/dl (32-36); Mean Corpuscular Hemoglobin 24.3 pg (26-34); Mean Corpuscular Volume 88.0 fl (80-100); Nucleated Red Blood Cells Absolute Auto 0.000 K/mm3 (0.0-0.012); Nucleated Red Blood Cells Perc 0.0 % (0.0-0.2); Platelet Count Result 223 k/mm3 (150-375); Red Blood Count 3.99 M/mm3 (4.2-5.4); White Blood Count 8.3 K/mm3 (4.5-10.0)
[2025-05-26 04:30] LABS: Blood Urea Nitrogen 19 mg/dL (7-17); Calcium 9.1 mg/dL (8.4-10.2); Carbon Dioxide > 40 mmol/L (22-30); Chloride 89 mmol/L (98-107); Estimated CRCL calculation 59 ml/min; Estimated Glomerular Filt Rate 48; Glucose 183 mg/dL (65-110); Potassium 4.5 mmol/L (3.4-5.0); Sodium 135 mmol/L (137-145)
[2025-05-26 04:37] LABS: Hypochromasia 1+; Schistocytes None Seen; Stomatocytes 1+
--- NOTE | 2025-05-26 06:47 | ECG_ITS ---
Test Date: 2025-05-26 06:55:04 Measurements Intervals [place] Rate: 126 P: 0 MS: 0 QRS: 24 QRSD: 145 T: 15 QT: 316 QTc: 458 Interpretive Statements ATRIAL FLUTTER/TACHYCARDIA WITH RAPID VENTRICULAR RESPONSE RIGHT BUNDLE BRANCH BLOCK BASELINE ARTIFACT- I, II, III, AVR, AVL, AVF, V3-V4 ABNORMAL ECG Compared to ECG 05/25/2025 14:54:40 NO SIGNIFICANT CHANGE Electronically Signed On 05-26-2025 08:21:11 CDT by Hong Meade D.O.
[2025-05-26] MEDS: DOXYCYCLINE HYCLATE 100 MG TABLET PO ×2 (08:09→16:13)
--- NOTE | 2025-05-26 08:11 | PM.CNCAR ---
Assessment and Plan Assessment and plan (1) Atrial flutter with rapid ventricular response: Code(s): I48.92 - Unspecified atrial flutter Status: Acute Assessment and Plan: In atrial flutter. [id number] 3. On Amiodarone and aspirin. On Diltiazem for rate control. Refused anticoagulation due to prior rectus sheath hematoma twice on Eliquis. Start Amiodarone drip for 24 hours to restore sinus rhythm and maintain it. Start Aspirin 325 mg daily to reduce risk of cardioembolism. (2) PAF (paroxysmal atrial fibrillation): Code(s): I48.0 - Paroxysmal atrial fibrillation Status: Acute (3) Acute on chronic congestive heart failure: Code(s): I50.9 - Heart failure, unspecified Status: Chronic Assessment and Plan: Right thoracentesis been ordered by hospitalist. On Lasix 40 mg IV BID and on Spironolactone 25 mg daily. Start Jardiance. Obtain echo. (4) Hypertension: Code(s): I10 - Essential (primary) hypertension Status: Acute Assessment and Plan: High. Start Losartan 50 mg daily. History of Present Illness History of Present Illness Consult date/time: 05/26/25 08:11 Reason For Visit: Dyspnea and fluid overload Narrative: 65 yr old woman who is my regular cardiology patient and a patient of Dr. Golden presents to ER with sob. She has a history of PAF in 2022, diastolic dysfunction, COPD on oxygen, former smoking. I saw her in office yesterday and directed her to go to ER for diuresis. She gained 32 pounds of weight in a month. Since being diuresed she is feeling better with less sob and edema of legs. She feels palpitations daily and in atrial fib/flutter now. She is on oxygen 6 l/m. She can walk short distance with a walker and oxygen in the house. Has had severe edema of both legs. Denies chest pain, orthopnea, dizziness. Cardiovascular Procedures Echo/MUGA:: 12/02/24 Echo: TDS. EF 60-65%, diastolic dysfunction, RVE, trace MR/TR. Electrophysiology:: 12/31/24 EKG: Sinus bradycardia at 56 bpm, IVCD. Stress Tests:: 01/05/25 CT chest: Mild emphysema. RUL pneumonia. Review of Systems Review of Systems: All systems reviewed & are unremarkable except as noted in HPI and below Constitutional: Constitutional: Reports as per HPI, Denies chills, Reports fatigue and Denies fever(s) Cardiovascular: Cardiovascular: Reports as per HPI, Denies chest pain and Reports irregular heart rhythm Respiratory: Respiratory: Reports as per HPI and Reports dyspnea Gastrointestinal: Gastrointestinal: Reports as per HPI and Denies abdominal pain Genitourinary: Genitourinary: Reports as per HPI and Denies dysuria Musculoskeletal: Musculoskeletal: Reports as per HPI Neurologic: Reports as per HPI, Denies dizziness and Denies syncope [facility] Past Medical History Medical History Diastolic dysfunction Echo in August 2022 showed normal LV function with an EF of 60 to 65%, grade 1 diastolic dysfunction, moderate enlarged right ventricular chamber, normal right ventricular systolic function, moderate tricuspid valve regurgitation, and pulmonary hypertension with an estimated PASP of 59 mmHg. Hypoxic respiratory failure Atrial flutter with rapid ventricular response Acute exacerbation of chronic obstructive pulmonary disease C. difficile colitis Renal failure Requiring temporary dialysis and CRRT in 09/15. 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) Congestive heart failure COPD (chronic obstructive pulmonary disease) Surgical History Surgical History (Updated 05/26/25 @ 02:53 by Joanna Garrett APRN) History of tonsillectomy and adenoidectomy History of cholecystectomy History of 3 sections History of left knee replacement Family History Family History Father Hypertension Acute myocardial infarction Sibling Hypertension Mother Family history of heart disease in male family member before age 55 Brother Acute myocardial infarction Father Acute myocardial infarction Other Cerebrovascular accident Family history of cardiovascular disease Social History Social History (Updated 05/26/25 @ 02:53 by Joanna Garrett APRN) Social History: She is from her Sai and they live in separate homes. She has 3 sons with kidney. She is disabled. Surrogate medical decision maker: Sai Shin, Code status: Full code. Smoking packs per day: 1 Smoking cigarettes per day: 20.0 Years smoked: 50 Smoking pack-years: 50.00 Smoking status: Former smoker Tobacco type: cigarettes Second hand tobacco smoke exposure: Yes Smoking end date: 08/23/22 Alcohol intake: never Drinks per week: 0 Substance use: never Substance use type: does not use Do You Feel Safe in your Home?: Yes Lack of Transportation: No Lack of Food: Never True Current Housing: I Have Housing Concerned About Future Housing: No Difficulty Paying Gas/Electric Bills: No Difficulty Paying for Meds: No Currently Unemployed: No Education: High School Diploma/GED Difficulty w/ Childcare or Family Care: No Living arrangements: with family Additional living arrangements comments: Lives with family in [place]. 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 Spiritual care concerns: No Meds Home Medications and Allergies Home Medications ?Medication ?Instructions ?Recorded ?Confirmed ?Type montelukast 10 mg tablet 10 mg PO DAILY 09/07/21 05/26/25 History omeprazole 40 mg capsule,delayed 40 mg PO DAILY 09/07/21 05/26/25 History release melatonin 5 mg capsule 5 mg PO HS PRN Insomnia 10/09/22 05/26/25 History quetiapine 25 mg tablet 25 mg PO HS 10/09/22 05/26/25 History furosemide 20 mg tablet 20 mg PO BID #60 tabs 10/10/22 05/26/25 Rx ropinirole 4 mg tablet 4 mg PO HS 10/20/22 05/26/25 History topiramate 100 mg tablet 200 mg PO BID 10/20/22 05/26/25 History potassium chloride 20 mEq oral 20 meq PO DAILY #30 ea 10/23/22 05/26/25 Rx packet ferrous sulfate 325 mg (65 mg 325 mg PO BID #60 tabs 10/25/22 05/26/25 Rx iron) tablet fluticasone fur. 100 mcg-umeclid 1 inh inhalation DAILY #28 ea 12/08/24 05/26/25 Rx 62.5 mcg-vilant 25 mcg inhalat.powder (Trelegy Ellipta) loratadine 10 mg tablet 10 mg PO QAM #30 tabs 01/10/25 05/26/25 Rx benzonatate 200 mg capsule 200 mg PO BID PRN cough #90 caps 01/31/25 05/26/25 Rx loratadine 10 mg tablet (Claritin) 10 mg PO DAILY #30 tabs 01/31/25 05/26/25 Rx amiodarone 200 mg tablet 200 mg PO DAILY #30 tabs 03/16/25 05/26/25 Rx duloxetine 20 mg capsule,delayed 20 mg PO DAILY 03/16/25 05/26/25 History release diltiazem HCl 240 mg 240 mg PO DAILY #30 caps 04/13/25 05/26/25 Rx capsule,extended release 24 hr (Cardizem CD) azelastine 137 mcg (0.1 %) nasal 1 spray intranasal Q12H #30 mL 05/23/25 05/26/25 Rx spray doxycycline hyclate 100 mg tablet 100 mg PO BID #14 tabs 05/23/25 05/26/25 Rx fluticasone propionate 50 1 spray intranasal BID #16 grams 05/23/25 05/26/25 Rx mcg/actuation nasal spray,suspension (Flonase Allergy Relief) spironolactone 25 mg tablet 25 mg PO DAILY 05/25/25 05/26/25 History trazodone 100 mg tablet 100 mg PO HS 05/25/25 05/26/25 History Allergies Allergy/AdvReac Type Severity Reaction Status Date / Time No Known Drug Allergies Allergy Unknown Verified 05/25/25 15:03 Vital Signs Vital Signs - 24 hr 05/25/25 14:45 05/25/25 14:50 05/25/25 15:00 Temperature 99.1 F Pulse Rate 123 H 123 H Respiratory Rate 20 14 Blood Pressure 144/81 H Pulse Oximetry 95 95 95 Oxygen Delivery Nasal Cannula Nasal Cannula Oxygen Flow Rate 6 6 05/25/25 15:00 05/25/25 15:01 05/25/25 15:02 Temperature Pulse Rate 124 H 124 H Respiratory Rate 21 H 23 H Blood Pressure 150/100 H Pulse Oximetry 98 97 95 Oxygen Delivery Nasal Cannula Oxygen Flow Rate 6 05/25/25 15:17 05/25/25 15:31 05/25/25 15:45 Temperature Pulse Rate 124 H Respiratory Rate 20 Blood Pressure Pulse Oximetry 96 96 Oxygen Delivery Oxygen Flow Rate 05/25/25 15:46 05/25/25 16:02 05/25/25 16:17 Temperature Pulse Rate Respiratory Rate Blood Pressure 120/105 H Pulse Oximetry 94 97 94 Oxygen Delivery Oxygen Flow Rate 05/25/25 16:36 05/25/25 16:46 05/25/25 17:16 Temperature Pulse Rate Respiratory Rate Blood Pressure Pulse Oximetry 96 93 88 L Oxygen Delivery Oxygen Flow Rate 05/25/25 17:30 05/25/25 17:49 05/25/25 18:00 Temperature Pulse Rate Respiratory Rate Blood Pressure Pulse Oximetry 96 96 95 Oxygen Delivery Oxygen Flow Rate 05/25/25 18:00 05/25/25 18:01 05/25/25 18:17 Temperature Pulse Rate 124 H Respiratory Rate Blood Pressure 148/78 H Pulse Oximetry 96 95 Oxygen Delivery Oxygen Flow Rate 05/25/25 18:41 05/25/25 18:45 05/25/25 19:00 Temperature Pulse Rate 123 H Respiratory Rate 15 Blood Pressure Pulse Oximetry 94 95 96 Oxygen Delivery Oxygen Flow Rate 05/25/25 19:01 05/25/25 19:02 05/25/25 19:15 Temperature Pulse Rate 124 H Respiratory Rate 20 Blood Pressure 132/67 Pulse Oximetry 96 96 96 Oxygen Delivery Oxygen Flow Rate 05/25/25 19:16 05/25/25 19:20 05/25/25 19:24 Temperature Pulse Rate 123 H 123 H 120 H Respiratory Rate 24 H 26 H 26 H Blood Pressure 158/93 H Pulse Oximetry 95 96 Oxygen Delivery Nasal Cannula Oxygen Flow Rate 5 05/25/25 19:30 05/25/25 19:31 05/25/25 19:55 Temperature Pulse Rate 124 H Respiratory Rate Blood Pressure 131/76 Pulse Oximetry 92 90 91 Oxygen Delivery Oxygen Flow Rate 05/25/25 20:02 05/25/25 20:15 05/25/25 20:30 Temperature Pulse Rate Respiratory Rate Blood Pressure Pulse Oximetry 91 91 92 Oxygen Delivery Oxygen Flow Rate 05/25/25 20:45 05/25/25 21:01 05/25/25 21:14 Temperature Pulse Rate 126 H Respiratory Rate 22 H Blood Pressure 149/71 H Pulse Oximetry 95 91 91 Oxygen Delivery Oxygen Flow Rate 05/25/25 21:15 05/25/25 21:23 05/25/25 21:30 Temperature Pulse Rate 127 H 127 H 127 H Respiratory Rate 20 25 H 17 Blood Pressure 149/82 H Pulse Oximetry 90 92 94 Oxygen Delivery Oxygen Flow Rate 05/25/25 21:45 05/25/25 22:04 05/25/25 22:29 Temperature Pulse Rate 127 H 128 H Respiratory Rate 13 14 Blood Pressure Pulse Oximetry 95 95 94 Oxygen Delivery Oxygen Flow Rate 05/25/25 22:30 05/25/25 23:11 05/26/25 00:00 Temperature Pulse Rate 128 H 128 H Respiratory Rate 12 15 24 H Blood Pressure Pulse Oximetry 95 94 90 Oxygen Delivery Nasal Cannula Oxygen Flow Rate 4 05/26/25 00:05 05/26/25 02:00 05/26/25 04:00 Temperature 99.3 F Pulse Rate 128 H 128 H Respiratory Rate 20 20 Blood Pressure 134/92 H Pulse Oximetry 93 93 Oxygen Delivery Nasal Cannula Oxygen Flow Rate 4 05/26/25 04:00 05/26/25 05:01 05/26/25 06:00 Temperature 98.1 F Pulse Rate 125 H 123 H 126 H Respiratory Rate 20 Blood Pressure 154/78 H Pulse Oximetry 94 Oxygen Delivery Oxygen Flow Rate 05/26/25 08:08 05/26/25 08:09 Temperature Pulse Rate 128 H 128 H Respiratory Rate Blood Pressure 157/79 H 157/59 H Pulse Oximetry Oxygen Delivery Oxygen Flow Rate Exam Const: General: cooperative, healthy appearing, comfortable and obese Resp: Auscultation: crackles, rhonchi and diminished lung sounds Cardio: Rate: tachycardic Rhythm: abnormal rhythm Heart sounds: no murmurs Peripheral pulses: dorsalis pedis present GI: GI Palp: No abdominal tenderness and Yes Soft to palpation Neuro: General: oriented to person, oriented to place and oriented to time Extrem: Right lower extremity: edema Left lower extremity: edema Other: Mod-severe edema of both legs Results Labs and Meds 05/26/25 03:53 05/26/25 03:53 Lab results: Cardiac Enzymes 05/25/25 Range/Units 16:06 AST 17 (14-36) U/L Coagulation 05/25/25 Range/Units 16:06 PT 12.9 (11.1-14.7) Seconds APTT 27.7 (22.3-36.8) Seconds CBC 05/25/25 05/26/25 Range/Units 16:06 03:53 WBC 10.5 H 8.3 (4.5-10.0) K/mm3 RBC 4.23 3.99 L (4.2-5.4) M/mm3 Hgb 10.3 L 9.7 L (12.0-15.0) g/dL Hct 37.8 35.1 L (37.0-47.0) % Plt Count 244 223 (150-375) k/mm3 Lymph # (Auto) 0.67 L 0.51 L (0.9-3.2) K/mm3 [place] # (Auto) 0.3 0.2 (0.1-0.6) K/mm3 Eos # (Auto) 0.1 0.0 (0-0.3) K/mm3 Baso # (Auto) 0.1 0.0 (0.0-0.1) K/mm3 Comprehensive Metabolic Panel 05/25/25 05/26/25 Range/Units 16:06 03:53 Sodium 136 L 135 L (137-145) mmol/L Potassium 5.0 4.5 (3.4-5.0) mmol/L Chloride 93 L 89 L (98-107) mmol/L Carbon Dioxide 39 H > 40 H (22-30) mmol/L BUN 14 D 19 H (7-17) mg/dL Creatinine 1.11 H 1.13 H (0.7-1.0) mg/dL Glucose 104 183 H (65-110) mg/dL Calcium 9.3 9.1 (8.4-10.2) mg/dL AST 17 (14-36) U/L ALT 13 (6-35) U/L Alkaline Phosphatase 108 (38-126) U/L Total Protein 8.2 (6.3-8.2) g/dL Albumin 4.1 (3.5-5.1) g/dL Intake and Output 05/25/25 05/26/25 05/26/25 23:59 07:59 15:59 Intake Total 237 400 Output Total 2100 350 Balance -1863 50 Intake: Oral 237 400 Output: Urine 2100 350 Other: # Incontinent Voids 2 Patient Weight 05/26/25 23:59 Weight 134.6 kg
[2025-05-26] MEDS: FLUTICASONE/UMECLIDIN/VILANTER 100-62.5-25 MCG ELLIPTA 1 PUFF INHALATION (08:32)
[2025-05-26] MEDS: FUROSEMIDE INJ 40 MG/4 ML VIAL IV PUSH ×2 (08:48→20:42)
[2025-05-26] MEDS: LOSARTAN POTASSIUM 50 MG TABLET PO (08:48)
[2025-05-26] MEDS: POTASSIUM CHLORIDE 20 MEQ PACKET (FOR LIQUID) PO (08:48)
[2025-05-26] MEDS: TOPIRAMATE 100 MG TABLET 200 MG PO ×2 (08:48→20:42)
[2025-05-26] MEDS: SPIRONOLACTONE 25 MG TABLET PO (08:48)
[2025-05-26] MEDS: FERROUS SULFATE 325 MG TABLET BY MOUTH ×2 (08:48→16:13)
[2025-05-26] MEDS: MONTELUKAST SODIUM 10 MG TABLET PO (08:48)
[2025-05-26] MEDS: AZELASTINE HCL NASAL 0.1% 137 MCG/SPR 30 ML BTL 1 SPRAY NASAL ×2 (08:49→20:42)
[2025-05-26] MEDS: ASPIRIN 325 MG ENTERIC TABLET PO (08:49)
[2025-05-26] MEDS: EMPAGLIFLOZIN 10 MG TABLET PO (08:49)
[2025-05-26] MEDS: dilTIAZem HCL CD 240 MG CAP.24HR PO (08:49)
--- NOTE | 2025-05-26 12:52 | PM.IMPN ---
Progress Note: A&P Assessment and Plan (1) Acute on chronic congestive heart failure: Code(s): I50.9 - Heart failure, unspecified Status: Chronic Assessment and Plan: ECHo pending continue Lasix 40mg iv bid and Spironolactone cardiology following - (2) Atrial flutter with rapid ventricular response: Code(s): I48.92 - Unspecified atrial flutter Status: Acute Assessment and Plan: -according to her records the patient's heart rate is typically fast -patient is no longer on anticoagulation as she refuses since she has had prior rectus sheath hematoma twice on Eliquis. Angel Vasc score is 3. -patient's heart rate remains in the 120s. -om Amiodarone infusion per cards (3) Chronic kidney disease, stage 3: Code(s): N18.30 - Chronic kidney disease, stage 3 unspecified Status: Acute Assessment and Plan: -monitor BMP daily. -patient's creatinine is 1.11 which is improved from her baseline of 1.23-1.38. -BUN is 14 which is improved from her baseline of 23-24. Her estimated creatinine clearance. Is now 63 compared her baseline of 47-52. Her estimated GFR is 49 which has improved from her baseline of 04/22/2042. (4) Chronic obstructive pulmonary disease: Code(s): J44.9 - Chronic obstructive pulmonary disease, unspecified Status: Chronic Assessment and Plan: -the patient is typically on oxygen at 2-3 L at home. She was turned up to 6 L when she came into the emergency room. On baseline oxygen currently - (5) Acute on chronic respiratory failure with hypoxia and hypercapnia: Code(s): J96.21 - Acute and chronic respiratory failure with hypoxia; J96.22 - Acute and chronic respiratory failure with hypercapnia Status: Acute Assessment and Plan: Now at baseline oxygen resolved Plan Right pleural effusion Patient declined thoracentesis Continue diuretics monitor DVT prophylaxis on Sq Lovenox Subjective Date/time seen: 05/26/25 12:52 Interval history: Comfortable at bedside declines thoracentesis Review of Systems Constitutional: Constitutional: Reports as per HPI and Reports no additional constitutional complaints Eyes: Eyes: Reports as per HPI and Reports no additional eye complaints ENT: Reports system reviewed and no additional complaints, except as documented and Reports Normal hearing present Cardiovascular: Cardiovascular: Reports no additional cardiovascular complaints Respiratory: Respiratory: Reports as per HPI and Reports no additional respiratory complaints Gastrointestinal: Gastrointestinal: Reports as per HPI and Reports no additional gastrointestinal complaints Genitourinary: Genitourinary: Reports no additional female genitourinary complaints Musculoskeletal: Musculoskeletal: Reports no additional musculoskeletal complaints Integumentary/Breasts: Skin/Breast: Reports system reviewed and no additional complaints, except as docu Neurologic: Reports system reviewed and no additional complaints, except as documented and Reports Normal hearing present Psychiatric: Psychiatric: Reports no additional psychiatric complaints and Reports as per HPI Hematologic/Lymphatic: Hematologic/Lymphatic: Reports no additional hematologic/lymphatic complaints Allergic/Immunologic: Allergic/Immunologic: Reports no additional allergic/immunologic complaints Exam Const: General: cooperative, comfortable, no acute distress, well developed, awake and Physically active Orientation/consciousness: oriented to person, oriented to place, oriented to time and patient oriented x3 Limitations: no limitations HENMT: Head: normal to inspection, No palpable skull fracture present, normocephalic and atraumatic Eyes: General: appearance normal, both eyes and all related structures Alignment and Position: alignment normal Periorbital: periorbital findings normal Eyelids: eyelids normal Pupils: Equal, round and reactive pupils present Neck: Neck: normal visual inspection, full ROM, no lymphadenopathy, trachea midline and supple Chest: Chest palpation & inspection: normal inspection of the chest Resp: Effort & Inspection: normal respiratory effort Auscultation: clear to auscultation bilaterally Percussion: percussion normal Cardio: Palpation: normal PMI Rate: regular rate and tachycardic Rhythm: regular rhythm Heart sounds: S1 normal heart sound present and S2 normal heart sound present Peripheral pulses: Peripheral pulses 2+ throughout GI: Inspection: normal to inspection Auscultation: normal bowel sounds Rectal Exam: deferred : General: Yes no CVA tenderness Back/Spine/Pelvis: Back: no CVA tenderness Cervical Spine: cervical ROM normal Skin: General skin exam: normal color Lesions: no lesions Rashes: no rashes Trauma: no lacerations or abrasions Wounds: no wounds Hair: normal Nails: normal Neuro: General: oriented to person, oriented to place, oriented to time and patient oriented x3 Cranial nerves: Yes Equal, round and reactive pupils present and Yes Normal hearing present Cognition (Neuro): normal cognition Speech: normal speech Gait exam (Neuro): Normal gait present Motor exam (neuro): 12/26 motor strength present throughout Sensory Exam: normal sensation Extrem: General: normal to inspection Right upper extremity: normal to inspection and shoulder/upper arm Left upper extremity: normal to inspection and shoulder/upper arm Other: 3+ pitting edema bilaterally Psych: Appearance: grossly normal Mental Status: mental status grossly normal Speech and movement: Normal speech and movement present Affect: normal affect Attitude: cooperative Thought process: Normal thought process present Insight: Good insight present (Psych) Judgement: Good judgement present (Psych) Objective Data Vital Signs Vital Signs: Vital Signs - 24 hr 05/25/25 14:45 05/25/25 14:50 05/25/25 15:00 Temperature 99.1 F Pulse Rate 123 H 123 H Respiratory Rate 20 14 Blood Pressure 144/81 H Pulse Oximetry 95 95 95 Oxygen Delivery Nasal Cannula Nasal Cannula Oxygen Flow Rate 6 6 05/25/25 15:00 05/25/25 15:01 05/25/25 15:02 Temperature Pulse Rate 124 H 124 H Respiratory Rate 21 H 23 H Blood Pressure 150/100 H Pulse Oximetry 98 97 95 Oxygen Delivery Nasal Cannula Oxygen Flow Rate 6 05/25/25 15:17 05/25/25 15:31 05/25/25 15:45 Temperature Pulse Rate 124 H Respiratory Rate 20 Blood Pressure Pulse Oximetry 96 96 Oxygen Delivery Oxygen Flow Rate 05/25/25 15:46 05/25/25 16:02 05/25/25 16:17 Temperature Pulse Rate Respiratory Rate Blood Pressure 120/105 H Pulse Oximetry 94 97 94 Oxygen Delivery Oxygen Flow Rate 05/25/25 16:36 05/25/25 16:46 05/25/25 17:16 Temperature Pulse Rate Respiratory Rate Blood Pressure Pulse Oximetry 96 93 88 L Oxygen Delivery Oxygen Flow Rate 05/25/25 17:30 05/25/25 17:49 05/25/25 18:00 Temperature Pulse Rate Respiratory Rate Blood Pressure Pulse Oximetry 96 96 95 Oxygen Delivery Oxygen Flow Rate 05/25/25 18:00 05/25/25 18:01 05/25/25 18:17 Temperature Pulse Rate 124 H Respiratory Rate Blood Pressure 148/78 H Pulse Oximetry 96 95 Oxygen Delivery Oxygen Flow Rate 05/25/25 18:41 05/25/25 18:45 05/25/25 19:00 Temperature Pulse Rate 123 H Respiratory Rate 15 Blood Pressure Pulse Oximetry 94 95 96 Oxygen Delivery Oxygen Flow Rate 05/25/25 19:01 05/25/25 19:02 05/25/25 19:15 Temperature Pulse Rate 124 H Respiratory Rate 20 Blood Pressure 132/67 Pulse Oximetry 96 96 96 Oxygen Delivery Oxygen Flow Rate 05/25/25 19:16 05/25/25 19:20 05/25/25 19:24 Temperature Pulse Rate 123 H 123 H 120 H Respiratory Rate 24 H 26 H 26 H Blood Pressure 158/93 H Pulse Oximetry 95 96 Oxygen Delivery Nasal Cannula Oxygen Flow Rate 5 05/25/25 19:30 05/25/25 19:31 05/25/25 19:55 Temperature Pulse Rate 124 H Respiratory Rate Blood Pressure 131/76 Pulse Oximetry 92 90 91 Oxygen Delivery Oxygen Flow Rate 05/25/25 20:02 05/25/25 20:15 05/25/25 20:30 Temperature Pulse Rate Respiratory Rate Blood Pressure Pulse Oximetry 91 91 92 Oxygen Delivery Oxygen Flow Rate 05/25/25 20:45 05/25/25 21:01 05/25/25 21:14 Temperature Pulse Rate 126 H Respiratory Rate 22 H Blood Pressure 149/71 H Pulse Oximetry 95 91 91 Oxygen Delivery Oxygen Flow Rate 05/25/25 21:15 05/25/25 21:23 05/25/25 21:30 Temperature Pulse Rate 127 H 127 H 127 H Respiratory Rate 20 25 H 17 Blood Pressure 149/82 H Pulse Oximetry 90 92 94 Oxygen Delivery Oxygen Flow Rate 05/25/25 21:45 05/25/25 22:04 05/25/25 22:29 Temperature Pulse Rate 127 H 128 H Respiratory Rate 13 14 Blood Pressure Pulse Oximetry 95 95 94 Oxygen Delivery Oxygen Flow Rate 05/25/25 22:30 05/25/25 23:11 05/26/25 00:00 Temperature Pulse Rate 128 H 128 H Respiratory Rate 12 15 24 H Blood Pressure Pulse Oximetry 95 94 90 Oxygen Delivery Nasal Cannula Oxygen Flow Rate 4 05/26/25 00:05 05/26/25 02:00 05/26/25 04:00 Temperature 99.3 F Pulse Rate 128 H 128 H Respiratory Rate 20 20 Blood Pressure 134/92 H Pulse Oximetry 93 93 Oxygen Delivery Nasal Cannula Oxygen Flow Rate 4 05/26/25 04:00 05/26/25 05:01 05/26/25 06:00 Temperature 98.1 F Pulse Rate 125 H 123 H 126 H Respiratory Rate 20 Blood Pressure 154/78 H Pulse Oximetry 94 Oxygen Delivery Oxygen Flow Rate 05/26/25 08:00 05/26/25 08:00 05/26/25 08:08 Temperature Pulse Rate 128 H 128 H Respiratory Rate Blood Pressure 157/79 H Pulse Oximetry 95 Oxygen Delivery Nasal Cannula Oxygen Flow Rate 4 05/26/25 08:09 05/26/25 08:14 05/26/25 08:20 Temperature 98.1 F Pulse Rate 128 H 128 H 128 H Respiratory Rate 22 H Blood Pressure 157/59 H 151/79 H 139/77 Pulse Oximetry 95 Oxygen Delivery Oxygen Flow Rate 05/26/25 08:32 05/26/25 08:36 05/26/25 10:00 Temperature Pulse Rate 125 H 125 H 128 H Respiratory Rate 19 Blood Pressure Pulse Oximetry 95 Oxygen Delivery Nasal Cannula Oxygen Flow Rate 3 05/26/25 10:00 05/26/25 10:00 05/26/25 12:00 Temperature 98.5 F 98.4 F Pulse Rate 128 H 130 H 130 H Respiratory Rate 22 H 20 Blood Pressure 139/77 139/77 142/67 H Pulse Oximetry 94 92 Oxygen Delivery Oxygen Flow Rate Intake/Output Intake/Output: Intake & Output 05/23/25 05/24/25 05/25/25 05/26/25 23:59 23:59 23:59 23:59 Intake Total 237 1041.7 Output Total 2100 2350 [facility] -6012 -3667.3 Meds/Results Medications: Active Medications Generic Name Dose Route Start Last Admin Trade Name Freq PRN Reason Stop Dose Admin Aspirin 325 mg 05/26/25 09:00 05/26/25 08:49 Aspirin 325 Mg Enteric Tablet PO 325 mg QAM [facility] Administration Azelastine HCl 1 spray 05/26/25 09:00 05/26/25 08:49 Azelastine Hcl Nasal 0.1% 137 Mcg/Spr 30 Ml Btl NASAL 1 spray Q12HR YODIT Administration Benzonatate 200 mg 05/26/25 03:04 Benzonatate 100 Mg Capsule PO BID PRN cough Diltiazem HCl 240 mg 05/26/25 09:00 05/26/25 08:49 Diltiazem Hcl Cd 240 Mg Cap.24hr PO 240 mg DAILY YODIT Administration Doxycycline Hyclate 100 mg 05/26/25 07:00 05/26/25 08:09 Doxycycline Hyclate 100 Mg Tablet PO 100 mg 0700,1600 YODIT Administration Duloxetine HCl 20 mg 05/26/25 09:00 05/26/25 08:49 Duloxetine Hcl 20 Mg Capsule.Dr PO 20 mg DAILY YODIT Administration Empagliflozin 10 mg 05/26/25 09:00 05/26/25 08:49 Empagliflozin 10 Mg Tablet PO 10 mg DAILY YODIT Administration Ferrous Sulfate 325 mg 05/26/25 09:00 05/26/25 08:48 Ferrous Sulfate 325 Mg Tablet BY MOUTH 325 mg BID YODIT Administration Fluticasone/Umeclidinium/Vilanterol 1 puff 05/26/25 08:00 05/26/25 08:32 Fluticasone/Umeclidin/Vilanter 100-62.5-25 Mcg Ellipta INHALATION 1 puff DAILYRT YODIT Administration Furosemide 40 mg 05/25/25 21:00 05/26/25 08:48 Furosemide Inj 40 Mg/4 Ml Vial IV PUSH 40 mg Q12HR YODIT Administration Amiodarone HCl/Dextrose 360 mg in 200 mls @ 16.667 mls/hr 05/26/25 12:30 Nexterone 360 Mg/D5w 200 Ml IV CONT .Q12H YODIT 0.5 MG/MIN Losartan Potassium 50 mg 05/26/25 09:00 05/26/25 08:48 Losartan Potassium 50 Mg Tablet PO 50 mg DAILY YODIT Administration Melatonin 5 mg 05/26/25 02:23 Melatonin 5 Mg Tablet PO HS PRN Insomnia Montelukast Sodium 10 mg 05/26/25 09:00 05/26/25 08:48 Montelukast Sodium 10 Mg Tablet PO 10 mg DAILY YODIT Administration Perflutren Lipid Microsphere 0 ml 05/26/25 08:16 Perflutren Lipid Microspheres 1.5 Ml Vial Diluted To 10 Ml Total Volume IV PUSH 05/29/25 08:16 ONCE PRN adequate visualization Protocol Potassium Chloride 20 meq 05/26/25 09:00 05/26/25 08:48 Potassium Chloride 20 Meq Packet (For Liquid) PO 20 meq DAILY YODIT Administration Quetiapine Fumarate 25 mg 05/26/25 21:00 Quetiapine Fumarate 25 Mg Tablet PO HS YODIT Ropinirole HCl 4 mg 05/26/25 21:00 Ropinirole Hcl 1 Mg Tablet PO HS YODIT Spironolactone 25 mg 05/26/25 09:00 05/26/25 08:48 Spironolactone 25 Mg Tablet PO 25 mg DAILY YODIT Administration Topiramate 200 mg 05/26/25 09:00 05/26/25 08:48 Topiramate 100 Mg Tablet PO 200 mg Q12HR YODIT Administration Trazodone HCl 100 mg 05/26/25 21:00 Trazodone Hcl 50 Mg Tablet PO HS [facility] Radiology Results: ITS Impressions Chest X-Ray 05/25/25 15:22 Impression: CHF. Superimposed probable pneumonia. Left lung nodule. CT chest recommended Chest CTA 05/25/25 18:03 IMPRESSION: 1. No PE. 2. Large right pleural effusion. 3. Interstitial pulmonary edema. 4. Emphysema. Recommend annual screening CT chest. Labs Labs: Laboratory Results - last 24 hr 05/25/25 05/26/25 16:06 03:53 WBC 10.5 H 8.3 RBC 4.23 3.99 L Hgb 10.3 L 9.7 L Hct 37.8 35.1 L MCV 89.4 88.0 MCH 24.3 L 24.3 L MCHC 27.2 L 27.6 L RDW 15.1 H 15.0 H Plt Count 244 223 MPV 9.0 9.3 Immature Gran % (Auto) 0.7 H 0.8 H Neut % (Auto) 88.7 H 90.8 H Lymph % (Auto) 6.4 L 6.2 L [place] % (Auto) 2.9 2.1 L Eos % (Auto) 0.8 0.0 Baso % (Auto) 0.5 0.1 L Lymph # (Auto) 0.67 L 0.51 L [place] # (Auto) 0.3 0.2 Eos # (Auto) 0.1 0.0 Baso # (Auto) 0.1 0.0 Abs Immat Gran (auto) 0.07 H 0.07 H Absolute Neuts (auto) 9.3 H 7.5 H Absolute Nucleated RBC 0.000 0.000 Band Neutrophils % Not Reportable Not Reportable Nucleated RBC % 0.0 0.0 Platelet Estimate Adequate Adequate Hypochromasia 1+ 1+ Ovalocytes 1+ Stomatocytes 1+ Schistocytes None seen None seen PT 12.9 INR 1.0 APTT 27.7 Sodium 136 L 135 L Potassium 5.0 4.5 Chloride 93 L 89 L Carbon Dioxide 39 H > 40 H Anion Gap 4 BUN 14 D 19 H Creatinine 1.11 H 1.13 H Estim Creat Clear Calc 63 59 Estimated GFR 49 L 48 L Glucose 104 183 H Calcium 9.3 9.1 Total Bilirubin 0.3 AST 17 ALT 13 Alkaline Phosphatase 108 NT-Pro-B Natriuret Pep 475 H Total Protein 8.2 Albumin 4.1
[2025-05-26] MEDS: METOPROLOL TARTRATE 25 MG TABLET PO (16:13)
--- NOTE | 2025-05-26 23:43 | PCRCNOTE ---
Patient declines the use of hospital CPAP machine; expecting her home machine tomorrow, Thursday
[2025-05-27] VITALS (31 sets, daily range): BP systolic 96–145; BP diastolic 54–89; PULSE 106–126; RESP 16–22; TEMP 36.1–37.2; O2SAT 92–98
[2025-05-27] MEDS: METOPROLOL TARTRATE 50 MG TAB PO ×2 (00:24→06:23)
[2025-05-27 04:10] LABS: Hematocrit 38.3 % (37.0-47.0); Hemoglobin 10.6 g/dL (12.0-15.0); Immature Granulocyte Percent A 0.5 % (0-0.5); Lymphocytes Absolute Auto 2.70 K/mm3 (0.9-3.2); Mean Corpuscular HGB Conc 27.7 g/dl (32-36); Mean Corpuscular Hemoglobin 24.3 pg (26-34); Mean Corpuscular Volume 87.6 fl (80-100); Nucleated Red Blood Cells Absolute Auto 0.000 K/mm3 (0.0-0.012); Nucleated Red Blood Cells Perc 0.0 % (0.0-0.2); Platelet Count Result 264 k/mm3 (150-375); Red Blood Count 4.37 M/mm3 (4.2-5.4); White Blood Count 12.0 K/mm3 (4.5-10.0)
[2025-05-27 04:25] LABS: Alanine Aminotransferase 13 U/L (6-35); Albumin Level 3.8 g/dL (3.5-5.1); Alkaline Phosphatase 84 U/L (38-126); Aspartate Amino Transferase 25 U/L (14-36); Bilirubin,Total 0.5 mg/dL (0.2-1.3); Blood Urea Nitrogen 26 mg/dL (7-17); Calcium 9.1 mg/dL (8.4-10.2); Carbon Dioxide > 40 mmol/L (22-30); Chloride 90 mmol/L (98-107); Estimated CRCL calculation 52 ml/min; Estimated Glomerular Filt Rate 41; Glucose 126 mg/dL (65-110); Magnesium 2.2 mg/dL (1.6-2.3); Potassium 4.2 mmol/L (3.4-5.0); Sodium 137 mmol/L (137-145); Total Protein 7.6 g/dL (6.3-8.2)
[2025-05-27] MEDS: DOXYCYCLINE HYCLATE 100 MG TABLET PO ×2 (07:06→16:16)
--- NOTE | 2025-05-27 07:23 | ECG_ITS ---
Test Date: 2025-05-27 08:14:25 Measurements Intervals Sanders Rate: 122 P: 95 VA: 144 QRS: 14 QRSD: 173 T: -51 QT: 424 QTc: 606 Interpretive Statements ATRIAL FLUTTER/TACHYCARDIA WITH RAPID VENTRICULAR RESPONSE RIGHT BUNDLE BRANCH BLOCK CONSIDER INFERIOR INFARCT, AGE INDETERMINATE BASELINE ARTIFACT- I, III, AVL ABNORMAL ECG Compared to ECG 05/26/2025 06:55:04 NO SIGNIFICANT CHANGE Electronically Signed On 05-27-2025 09:59:59 CDT by Hong Meade D.O.
[2025-05-27] MEDS: FLUTICASONE/UMECLIDIN/VILANTER 100-62.5-25 MCG ELLIPTA 1 PUFF INHALATION (07:50)
--- NOTE | 2025-05-27 08:38 | PM.PNCARD ---
Progress Note: A&P Assessment and Plan (1) Atrial flutter with rapid ventricular response: Code(s): I48.92 - Unspecified atrial flutter Status: Acute Assessment and Plan: In atrial flutter at 123 bpm. [id number] 3. On Amiodarone and aspirin. On Diltiazem and Metoprolol for rate control. 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 Start 05/26/25 Amiodarone drip restore sinus rhythm and maintain it or improve HR control with it. Discuss SRIDEVI/DC cardioversion on Thursday if she is still in atrial flutter, but she adamantly declines. (2) PAF (paroxysmal atrial fibrillation): Code(s): I48.0 - Paroxysmal atrial fibrillation Status: Acute (3) Acute on chronic congestive heart failure: Code(s): I50.9 - Heart failure, unspecified Status: Chronic Assessment and Plan: Right thoracentesis been ordered by hospitalist. On Lasix 40 mg IV BID and on Spironolactone 25 mg daily. Start Jardiance. Obtain echo. (4) Hypertension: Code(s): I10 - Essential (primary) hypertension Status: Acute Assessment and Plan: Stable. Subjective Date/time seen: 05/27/25 08:38 Interval history: Reports breathing is improving with diuresis. No chest pains. Exam Const: General: cooperative, healthy appearing, comfortable and obese Nutritional Appearance: obese Orientation/consciousness: oriented to person, oriented to place and oriented to time Resp: Auscultation: no crackles, no rales, no rhonchi, no wheezes and diminished lung sounds Cardio: Rate: tachycardic Rhythm: abnormal rhythm Heart sounds: no murmurs Peripheral pulses: dorsalis pedis present Neuro: General: oriented to person, oriented to place and oriented to time Extrem: Right lower extremity: edema Left lower extremity: edema Other: Mod edema of both legs Objective Data Vital Signs Vital Signs: Vital Signs - 24 hr 05/26/25 10:05/26/25 10:05/26/25 10:00 Temperature 98.5 F Pulse Rate 128 H 128 H 130 H Respiratory Rate 22 H Blood Pressure 139/77 139/77 Pulse Oximetry 94 Oxygen Delivery Oxygen Flow Rate 05/26/25 12:00 05/26/25 12:00 05/26/25 12:00 Temperature 98.4 F Pulse Rate 130 H 130 H Respiratory Rate 20 Blood Pressure 142/67 H 142/67 H Pulse Oximetry 92 90 Oxygen Delivery Nasal Cannula Oxygen Flow Rate 4 05/26/25 12:00 05/26/25 14:00 05/26/25 14:00 Temperature Pulse Rate 130 H 128 H 128 H Respiratory Rate 20 Blood Pressure 133/78 133/78 Pulse Oximetry 90 Oxygen Delivery Oxygen Flow Rate 05/26/25 14:00 05/26/25 14:15 05/26/25 14:15 Temperature Pulse Rate 128 H 128 H 128 H Respiratory Rate Blood Pressure 133/78 133/78 Pulse Oximetry Oxygen Delivery Oxygen Flow Rate 05/26/25 16:00 05/26/25 16:00 05/26/25 16:00 Temperature Pulse Rate 130 H 129 H Respiratory Rate Blood Pressure 129/56 L Pulse Oximetry 93 Oxygen Delivery Nasal Cannula Oxygen Flow Rate 4 05/26/25 16:00 05/26/25 16:13 05/26/25 18:00 Temperature 98.5 F Pulse Rate 130 H 129 H 130 H Respiratory Rate 26 H Blood Pressure 129/86 Pulse Oximetry 97 Oxygen Delivery Oxygen Flow Rate 05/26/25 18:00 05/26/25 18:00 05/26/25 19:55 Temperature 97.8 F Pulse Rate 130 H 126 H Respiratory Rate 20 Blood Pressure 137/70 137/70 135/80 Pulse Oximetry 96 Oxygen Delivery Oxygen Flow Rate 05/26/25 20:00 05/26/25 20:00 05/26/25 20:00 Temperature Pulse Rate 126 H 126 H Respiratory Rate Blood Pressure 135/80 Pulse Oximetry 98 Oxygen Delivery Nasal Cannula Oxygen Flow Rate 4 05/26/25 22:00 05/26/25 22:00 05/26/25 22:34 Temperature Pulse Rate 126 H 126 H Respiratory Rate Blood Pressure 128/74 128/74 Pulse Oximetry Oxygen Delivery Oxygen Flow Rate 05/27/25 00:00 05/27/25 00:00 05/27/25 00:00 Temperature 97.7 F Pulse Rate 126 H 126 H Respiratory Rate 20 Blood Pressure 145/89 H Pulse Oximetry 96 96 Oxygen Delivery Nasal Cannula Oxygen Flow Rate 4 05/27/25 00:24 05/27/25 00:28 05/27/25 01:01 Temperature Pulse Rate 125 H 125 H 126 H Respiratory Rate Blood Pressure 145/89 H Pulse Oximetry Oxygen Delivery Oxygen Flow Rate 05/27/25 01:01 05/27/25 02:00 05/27/25 02:00 Temperature Pulse Rate 126 H 125 H 125 H Respiratory Rate Blood Pressure 138/76 Pulse Oximetry Oxygen Delivery Oxygen Flow Rate 05/27/25 02:11 05/27/25 04:00 05/27/25 04:00 Temperature Pulse Rate 125 H 124 H Respiratory Rate Blood Pressure 138/76 Pulse Oximetry 97 Oxygen Delivery Nasal Cannula Oxygen Flow Rate 4 05/27/25 04:22 05/27/25 04:47 05/27/25 06:00 Temperature 97.8 F Pulse Rate 122 H 126 H 124 H Respiratory Rate 20 Blood Pressure 137/74 137/74 Pulse Oximetry 98 Oxygen Delivery Oxygen Flow Rate 05/27/25 06:00 05/27/25 06:19 05/27/25 06:23 Temperature Pulse Rate 124 H 124 H 123 H Respiratory Rate Blood Pressure 128/75 128/75 Pulse Oximetry Oxygen Delivery Oxygen Flow Rate 05/27/25 07:28 05/27/25 07:51 05/27/25 07:52 Temperature 99.0 F Pulse Rate 123 H 106 H 112 H Respiratory Rate 22 H 19 19 Blood Pressure 116/80 Pulse Oximetry 93 Oxygen Delivery Oxygen Flow Rate 05/27/25 07:52 Temperature Pulse Rate Respiratory Rate Blood Pressure Pulse Oximetry 94 Oxygen Delivery Nasal Cannula Oxygen Flow Rate 4 Intake/Output Intake/Output: Intake & Output 05/24/25 05/25/25 05/26/25 05/27/25 23:59 23:59 23:59 23:59 Intake Total 237 2158.6 529.2 Output Total 2100 2550 2300 [facility]1863 -391.4 -1770.8 Meds/Results Medications: Active Medications Generic Name Dose Route Start Last Admin Trade Name Freq PRN Reason Stop Dose Admin Aspirin 325 mg 05/26/25 09:00 05/26/25 08:49 Aspirin 325 Mg Enteric Tablet PO 325 mg QAM YODIT Administration Azelastine HCl 1 spray 05/26/25 09:00 05/26/25 20:42 Azelastine Hcl Nasal 0.1% 137 Mcg/Spr 30 Ml Btl NASAL 1 spray Q12HR YODIT Administration Benzonatate 200 mg 05/26/25 03:04 Benzonatate 100 Mg Capsule PO BID PRN cough Diltiazem HCl 240 mg 05/26/25 09:00 05/26/25 08:49 Diltiazem Hcl Cd 240 Mg Cap.24hr PO 240 mg DAILY YODIT Administration Doxycycline Hyclate 100 mg 05/26/25 07:00 05/27/25 07:06 Doxycycline Hyclate 100 Mg Tablet PO 100 mg 0700,1600 YODIT Administration Duloxetine HCl 20 mg 05/26/25 09:00 05/26/25 08:49 Duloxetine Hcl 20 Mg Capsule.Dr PO 20 mg DAILY YODIT Administration Empagliflozin 10 mg 05/26/25 09:00 05/26/25 08:49 Empagliflozin 10 Mg Tablet PO 10 mg DAILY YODIT Administration Ferrous Sulfate 325 mg 05/26/25 09:00 05/26/25 16:13 Ferrous Sulfate 325 Mg Tablet BY MOUTH 325 mg BID YODIT Administration Fluticasone/Umeclidinium/Vilanterol 1 puff 05/26/25 08:00 05/27/25 07:50 Fluticasone/Umeclidin/Vilanter 100-62.5-25 Mcg Ellipta INHALATION 1 puff DAILYRT YODIT Administration Furosemide 40 mg 05/25/25 21:00 05/26/25 20:42 Furosemide Inj 40 Mg/4 Ml Vial IV PUSH 40 mg Q12HR YODIT Administration Amiodarone HCl/Dextrose 360 mg in 200 mls @ 16.667 mls/hr 05/26/25 12:30 05/27/25 06:19 Nexterone 360 Mg/D5w 200 Ml IV CONT 0.5 mg/min .Q12H YODIT 16.67 mls/hr 0.5 MG/MIN Infusion Losartan Potassium 50 mg 05/26/25 09:00 05/26/25 08:48 Losartan Potassium 50 Mg Tablet PO 50 mg DAILY YODIT Administration Melatonin 5 mg 05/26/25 02:23 Melatonin 5 Mg Tablet PO HS PRN Insomnia Metoprolol Tartrate 50 mg 05/27/25 00:00 05/27/25 06:23 Metoprolol Tartrate 50 Mg Tab PO 50 mg Q6HR YODIT Administration Montelukast Sodium 10 mg 05/26/25 09:00 05/26/25 08:48 Montelukast Sodium 10 Mg Tablet PO 10 mg DAILY YODIT Administration Perflutren Lipid Microsphere 0 ml 05/26/25 08:16 Perflutren Lipid Microspheres 1.5 Ml Vial Diluted To 10 Ml Total Volume IV PUSH 05/29/25 08:16 ONCE PRN adequate visualization Protocol Potassium Chloride 20 meq 05/26/25 09:00 05/26/25 08:48 Potassium Chloride 20 Meq Packet (For Liquid) PO 20 meq DAILY YODIT Administration Quetiapine Fumarate 25 mg 05/26/25 21:00 05/26/25 20:43 Quetiapine Fumarate 25 Mg Tablet PO 25 mg HS YODIT Administration Ropinirole HCl 4 mg 05/26/25 21:00 05/26/25 20:42 Ropinirole Hcl 1 Mg Tablet PO 4 mg HS YODIT Administration Spironolactone 25 mg 05/26/25 09:00 05/26/25 08:48 Spironolactone 25 Mg Tablet PO 25 mg DAILY YODIT Administration Topiramate 200 mg 05/26/25 09:00 05/26/25 20:42 Topiramate 100 Mg Tablet PO 200 mg Q12HR YODIT Administration Trazodone HCl 100 mg 05/26/25 21:00 05/26/25 20:43 Trazodone Hcl 50 Mg Tablet PO 100 mg HS YODIT Administration Radiology Results: ITS Impressions Chest X-Ray 05/25/25 15:22 Impression: CHF. Superimposed probable pneumonia. Left lung nodule. CT chest recommended Chest CTA 05/25/25 18:03 IMPRESSION: 1. No PE. 2. Large right pleural effusion. 3. Interstitial pulmonary edema. 4. Emphysema. Recommend annual screening CT chest. Labs Labs: Laboratory Results - last 24 hr 05/27/25 03:50 WBC 12.0 H RBC 4.37 Hgb 10.6 L Hct 38.3 MCV 87.6 MCH 24.3 L MCHC 27.7 L RDW 15.5 H Plt Count 264 MPV 9.2 Immature Gran % (Auto) 0.5 Neut % (Auto) 65.8 Lymph % (Auto) 22.5 [place] % (Auto) 8.8 H Eos % (Auto) 1.9 Baso % (Auto) 0.5 Lymph # (Auto) 2.70 [place] # (Auto) 1.1 H Eos # (Auto) 0.2 Baso # (Auto) 0.1 Abs Immat Gran (auto) 0.06 H Absolute Neuts (auto) 7.9 H Absolute Nucleated RBC 0.000 Nucleated RBC % 0.0 Sodium 137 Potassium 4.2 Chloride 90 L Carbon Dioxide > 40 H Anion Gap BUN 26 H Creatinine 1.29 H Estim Creat Clear Calc 52 Estimated GFR 41 L Glucose 126 H Lactic Acid 0.7 Calcium 9.1 Magnesium 2.2 Total Bilirubin 0.5 AST 25 ALT 13 Alkaline Phosphatase 84 Total Protein 7.6 Albumin 3.8
[2025-05-27] MEDS: AZELASTINE HCL NASAL 0.1% 137 MCG/SPR 30 ML BTL 1 SPRAY NASAL ×2 (08:41→20:03)
[2025-05-27] MEDS: LOSARTAN POTASSIUM 50 MG TABLET PO (08:42)
[2025-05-27] MEDS: ASPIRIN 325 MG ENTERIC TABLET PO (08:42)
[2025-05-27] MEDS: FERROUS SULFATE 325 MG TABLET BY MOUTH ×2 (08:42→16:16)
[2025-05-27] MEDS: POTASSIUM CHLORIDE 20 MEQ PACKET (FOR LIQUID) PO (08:42)
[2025-05-27] MEDS: EMPAGLIFLOZIN 10 MG TABLET PO (08:42)
[2025-05-27] MEDS: MONTELUKAST SODIUM 10 MG TABLET PO (08:42)
[2025-05-27] MEDS: dilTIAZem HCL CD 240 MG CAP.24HR PO (08:42)
[2025-05-27] MEDS: FUROSEMIDE INJ 40 MG/4 ML VIAL IV PUSH ×2 (08:42→20:04)
[2025-05-27] MEDS: TOPIRAMATE 100 MG TABLET 200 MG PO ×2 (08:43→20:04)
[2025-05-27] MEDS: SPIRONOLACTONE 25 MG TABLET PO (08:43)
[2025-05-28] VITALS (28 sets, daily range): BP systolic 94–115; BP diastolic 49–69; PULSE 73–124; RESP 16–22; TEMP 36.4–36.8; O2SAT 91–96
[2025-05-28] MEDS: METOPROLOL TARTRATE 50 MG TAB PO ×4 (00:19→23:59)
[2025-05-28] MEDS: DOXYCYCLINE HYCLATE 100 MG TABLET PO ×2 (06:15→16:14)
[2025-05-28] MEDS: FLUTICASONE/UMECLIDIN/VILANTER 100-62.5-25 MCG ELLIPTA 1 PUFF INHALATION (08:09)
[2025-05-28] MEDS: SPIRONOLACTONE 25 MG TABLET PO (08:49)
[2025-05-28] MEDS: ASPIRIN 325 MG ENTERIC TABLET PO (08:49)
[2025-05-28] MEDS: MONTELUKAST SODIUM 10 MG TABLET PO (08:49)
[2025-05-28] MEDS: EMPAGLIFLOZIN 10 MG TABLET PO (08:50)
[2025-05-28] MEDS: TOPIRAMATE 100 MG TABLET 200 MG PO ×2 (08:50→20:50)
[2025-05-28] MEDS: LOSARTAN POTASSIUM 50 MG TABLET PO (08:50)
[2025-05-28] MEDS: AZELASTINE HCL NASAL 0.1% 137 MCG/SPR 30 ML BTL 1 SPRAY NASAL ×2 (08:50→20:49)
[2025-05-28] MEDS: dilTIAZem HCL CD 240 MG CAP.24HR PO (08:50)
[2025-05-28] MEDS: FERROUS SULFATE 325 MG TABLET BY MOUTH ×2 (08:50→16:14)
[2025-05-28] MEDS: FUROSEMIDE INJ 40 MG/4 ML VIAL IV PUSH ×2 (08:53→20:51)
[2025-05-28] MEDS: POTASSIUM CHLORIDE 20 MEQ PACKET (FOR LIQUID) PO (08:53)
--- NOTE | 2025-05-28 10:16 | PM.PNCARD ---
Progress Note: A&P Assessment and Plan (1) Atrial flutter with rapid ventricular response: Code(s): I48.92 - Unspecified atrial flutter Status: Acute Assessment and Plan: In atrial flutter at 123 bpm. [id number] 3. On Amiodarone and aspirin. On Diltiazem and Metoprolol for rate control. 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 Start 05/26/25 Amiodarone drip restore sinus rhythm and maintain it or improve HR control with it. Discuss SRIDEVI/DC cardioversion on Thursday if she is still in atrial flutter, but she adamantly declines. (2) PAF (paroxysmal atrial fibrillation): Code(s): I48.0 - Paroxysmal atrial fibrillation Status: Acute (3) Acute on chronic congestive heart failure: Code(s): I50.9 - Heart failure, unspecified Status: Chronic Assessment and Plan: Right thoracentesis been ordered by hospitalist. On Lasix 40 mg IV BID and on Spironolactone 25 mg daily. Start Jardiance. Obtain echo. (4) Hypertension: Code(s): I10 - Essential (primary) hypertension Status: Acute Assessment and Plan: Stable. Subjective Date/time seen: 05/28/25 10:16 Interval history: Reports breathing is improving with diuresis. No chest pains. Exam Const: General: cooperative, healthy appearing, comfortable and obese Nutritional Appearance: obese Orientation/consciousness: oriented to person, oriented to place and oriented to time Resp: Auscultation: no crackles, no rales, no rhonchi, no wheezes and diminished lung sounds Cardio: Rate: tachycardic Rhythm: abnormal rhythm Heart sounds: no murmurs Peripheral pulses: dorsalis pedis present Neuro: General: oriented to person, oriented to place and oriented to time Extrem: Right lower extremity: edema Left lower extremity: edema Other: Mod edema of both legs Objective Data Vital Signs Vital Signs: Vital Signs - 24 hr 05/27/25 11:03 05/27/25 11:34 05/27/25 12:00 Temperature 98.3 F Pulse Rate 124 H 124 H Respiratory Rate 20 Blood Pressure 103/60 103/60 Pulse Oximetry 96 Oxygen Delivery Nasal Cannula Oxygen Flow Rate 4 05/27/25 12:00 05/27/25 12:00 05/27/25 12:27 Temperature Pulse Rate 122 H 114 H Respiratory Rate Blood Pressure Pulse Oximetry 96 Oxygen Delivery Nasal Cannula Oxygen Flow Rate 4 05/27/25 13:02 05/27/25 13:06 05/27/25 14:00 Temperature Pulse Rate 122 H 122 H 120 H Respiratory Rate Blood Pressure 103/60 103/60 101/67 Pulse Oximetry Oxygen Delivery Oxygen Flow Rate 05/27/25 14:00 05/27/25 14:00 05/27/25 16:00 Temperature Pulse Rate 120 H 120 H 123 H Respiratory Rate Blood Pressure 101/67 102/59 L Pulse Oximetry Oxygen Delivery Oxygen Flow Rate 05/27/25 16:00 05/27/25 16:00 05/27/25 16:26 Temperature 97.0 F L Pulse Rate 122 H 123 H Respiratory Rate 20 Blood Pressure 102/59 L Pulse Oximetry 92 92 Oxygen Delivery Nasal Cannula Oxygen Flow Rate 4 05/27/25 18:00 05/27/25 18:00 05/27/25 18:10 Temperature 97.4 F L Pulse Rate 123 H 123 H 123 H Respiratory Rate 16 Blood Pressure 125/64 125/64 Pulse Oximetry 95 Oxygen Delivery Oxygen Flow Rate 05/27/25 19:39 05/27/25 19:59 05/27/25 20:00 Temperature Pulse Rate 124 H Respiratory Rate 18 Blood Pressure 99/54 L Pulse Oximetry 93 95 95 Oxygen Delivery Nasal Cannula Nasal Cannula Oxygen Flow Rate 4 4 05/27/25 20:00 05/27/25 20:00 05/27/25 22:00 Temperature Pulse Rate 124 H 124 H 124 H Respiratory Rate Blood Pressure 99/54 L 102/63 Pulse Oximetry Oxygen Delivery Oxygen Flow Rate 05/27/25 22:00 05/27/25 22:00 05/28/25 00:00 Temperature 97.5 F L Pulse Rate 124 H 124 H 123 H Respiratory Rate 19 Blood Pressure 102/63 110/69 Pulse Oximetry 95 Oxygen Delivery Oxygen Flow Rate 05/28/25 00:00 05/28/25 00:00 05/28/25 00:19 Temperature Pulse Rate 124 H 123 H Respiratory Rate Blood Pressure Pulse Oximetry 95 Oxygen Delivery Nasal Cannula Oxygen Flow Rate 4 05/28/25 00:33 05/28/25 00:33 05/28/25 01:53 Temperature Pulse Rate 123 H 123 H 91 Respiratory Rate Blood Pressure 110/69 110/69 94/56 L Pulse Oximetry Oxygen Delivery Oxygen Flow Rate 05/28/25 02:00 05/28/25 02:05 05/28/25 04:00 Temperature Pulse Rate 90 91 Respiratory Rate Blood Pressure 94/56 L Pulse Oximetry 94 Oxygen Delivery Nasal Cannula Oxygen Flow Rate 4 05/28/25 04:00 05/28/25 04:00 05/28/25 04:00 Temperature 98.2 F Pulse Rate 118 H 121 H 121 H Respiratory Rate 22 H Blood Pressure 106/67 106/67 Pulse Oximetry 92 Oxygen Delivery Oxygen Flow Rate 05/28/25 06:00 05/28/25 06:00 05/28/25 06:14 Temperature Pulse Rate 118 H 118 H Respiratory Rate Blood Pressure 108/60 108/60 Pulse Oximetry Oxygen Delivery Oxygen Flow Rate 05/28/25 06:15 05/28/25 07:30 05/28/25 08:00 Temperature 98.2 F Pulse Rate 118 H 73 94 Respiratory Rate 18 Blood Pressure 111/61 111/61 Pulse Oximetry 96 Oxygen Delivery Oxygen Flow Rate 05/28/25 08:00 05/28/25 08:00 05/28/25 08:09 Temperature Pulse Rate 94 102 H Respiratory Rate 20 Blood Pressure Pulse Oximetry 96 Oxygen Delivery Nasal Cannula Oxygen Flow Rate 4 Intake/Output Intake/Output: Intake & Output 05/25/25 05/26/25 05/27/25 05/28/25 23:59 23:59 23:59 23:59 Intake Total 237 2158.6 1509.1 586.8 Output Total 2100 2550 3650 525 Balance -1863 -391.4 -2140.9 61.8 Meds/Results Medications: Active Medications Generic Name Dose Route Start Last Admin Trade Name Freq PRN Reason Stop Dose Admin Aspirin 325 mg 05/26/25 09:00 05/28/25 08:49 Aspirin 325 Mg Enteric Tablet PO 325 mg QAM YODIT Administration Azelastine HCl 1 spray 05/26/25 09:00 05/28/25 08:50 Azelastine Hcl Nasal 0.1% 137 Mcg/Spr 30 Ml Btl NASAL 1 spray Q12HR YODIT Administration Benzonatate 200 mg 05/26/25 03:04 Benzonatate 100 Mg Capsule PO BID PRN cough Diltiazem HCl 240 mg 05/26/25 09:00 05/28/25 08:50 Diltiazem Hcl Cd 240 Mg Cap.24hr PO 240 mg DAILY OYDIT Administration Doxycycline Hyclate 100 mg 05/26/25 07:00 05/28/25 06:15 Doxycycline Hyclate 100 Mg Tablet PO 100 mg 0700,1600 YODIT Administration Duloxetine HCl 20 mg 05/26/25 09:00 05/28/25 08:49 Duloxetine Hcl 20 Mg Capsule.Dr PO 20 mg DAILY YODIT Administration Empagliflozin 10 mg 05/26/25 09:00 05/28/25 08:50 Empagliflozin 10 Mg Tablet PO 10 mg DAILY YODIT Administration Ferrous Sulfate 325 mg 05/26/25 09:00 05/28/25 08:50 Ferrous Sulfate 325 Mg Tablet BY MOUTH 325 mg BID YODIT Administration Fluticasone/Umeclidinium/Vilanterol 1 puff 05/26/25 08:00 05/28/25 08:09 Fluticasone/Umeclidin/Vilanter 100-62.5-25 Mcg Ellipta INHALATION 1 puff DAILYRT YODIT Administration Furosemide 40 mg 05/25/25 21:00 05/28/25 08:53 Furosemide Inj 40 Mg/4 Ml Vial IV PUSH 40 mg Q12HR YODIT Administration Amiodarone HCl/Dextrose 360 mg in 200 mls @ 16.667 mls/hr 05/26/25 12:30 05/28/25 08:00 Nexterone 360 Mg/D5w 200 Ml IV CONT 0.5 mg/min .Q12H YODIT 16.67 mls/hr 0.5 MG/MIN Infusion Losartan Potassium 50 mg 05/26/25 09:00 05/28/25 08:50 Losartan Potassium 50 Mg Tablet PO 50 mg DAILY YODIT Administration Melatonin 5 mg 05/26/25 02:23 Melatonin 5 Mg Tablet PO HS PRN Insomnia Metoprolol Tartrate 50 mg 05/27/25 00:00 05/28/25 06:15 Metoprolol Tartrate 50 Mg Tab PO 50 mg Q6HR YODIT Administration Montelukast Sodium 10 mg 05/26/25 09:00 05/28/25 08:49 Montelukast Sodium 10 Mg Tablet PO 10 mg DAILY YODIT Administration Perflutren Lipid Microsphere 0 ml 05/26/25 08:16 Perflutren Lipid Microspheres 1.5 Ml Vial Diluted To 10 Ml Total Volume IV PUSH 05/29/25 08:16 ONCE PRN adequate visualization Protocol Potassium Chloride 20 meq 05/26/25 09:00 05/28/25 08:53 Potassium Chloride 20 Meq Packet (For Liquid) PO 20 meq DAILY YODIT Administration Quetiapine Fumarate 25 mg 05/26/25 21:00 05/27/25 20:04 Quetiapine Fumarate 25 Mg Tablet PO 25 mg HS YODIT Administration Ropinirole HCl 4 mg 05/26/25 21:00 05/27/25 20:04 Ropinirole Hcl 1 Mg Tablet PO 4 mg HS YODIT Administration Spironolactone 25 mg 05/26/25 09:00 05/28/25 08:49 Spironolactone 25 Mg Tablet PO 25 mg DAILY YODIT Administration Topiramate 200 mg 05/26/25 09:00 05/28/25 08:50 Topiramate 100 Mg Tablet PO 200 mg Q12HR YODIT Administration Trazodone HCl 100 mg 05/26/25 21:00 05/27/25 20:04 Trazodone Hcl 50 Mg Tablet PO 100 mg HS YODIT Administration Radiology Results: ITS Impressions Chest X-Ray 05/25/25 15:22 Impression: CHF. Superimposed probable pneumonia. Left lung nodule. CT chest recommended Chest CTA 05/25/25 18:03 IMPRESSION: 1. No PE. 2. Large right pleural effusion. 3. Interstitial pulmonary edema. 4. Emphysema. Recommend annual screening CT chest.
--- NOTE | 2025-05-28 10:27 | PM.IMPN ---
Progress Note: A&P Assessment and Plan (1) Acute on chronic congestive heart failure: Code(s): I50.9 - Heart failure, unspecified Status: Chronic Assessment and Plan: ECHo pending continue Lasix 40mg iv bid and Spironolactone cardiology following - (2) Atrial flutter with rapid ventricular response: Code(s): I48.92 - Unspecified atrial flutter Status: Acute Assessment and Plan: -according to her records the patient's heart rate is typically fast -patient is no longer on anticoagulation as she refuses since she has had prior rectus sheath hematoma twice on Eliquis. Angel Vasc score is 3. -patient's heart rate remains in the 120s. -om Amiodarone infusion per cards (3) Chronic kidney disease, stage 3: Code(s): N18.30 - Chronic kidney disease, stage 3 unspecified Status: Acute Assessment and Plan: -monitor BMP daily. -patient's creatinine is 1.11 which is improved from her baseline of 1.23-1.38. -BUN is 14 which is improved from her baseline of 23-24. Her estimated creatinine clearance. Is now 63 compared her baseline of 47-52. Her estimated GFR is 49 which has improved from her baseline of 04/22/2042. (4) Chronic obstructive pulmonary disease: Code(s): J44.9 - Chronic obstructive pulmonary disease, unspecified Status: Chronic Assessment and Plan: -the patient is typically on oxygen at 2-3 L at home. She was turned up to 6 L when she came into the emergency room. On baseline oxygen currently - (5) Acute on chronic respiratory failure with hypoxia and hypercapnia: Code(s): J96.21 - Acute and chronic respiratory failure with hypoxia; J96.22 - Acute and chronic respiratory failure with hypercapnia Status: Acute Assessment and Plan: Now at baseline oxygen resolved Plan Right pleural effusion Patient declined thoracentesis Continue diuretics monitor DVT prophylaxis on Sq Lovenox Subjective Date/time seen: 05/27/25 10:27 Interval history: Comfortable at bedside adn still declines thoracentesis Review of Systems Constitutional: Constitutional: Reports as per HPI and Reports no additional constitutional complaints Eyes: Eyes: Reports as per HPI and Reports no additional eye complaints ENT: Reports system reviewed and no additional complaints, except as documented and Reports Normal hearing present Cardiovascular: Cardiovascular: Reports no additional cardiovascular complaints Respiratory: Respiratory: Reports as per HPI and Reports no additional respiratory complaints Gastrointestinal: Gastrointestinal: Reports as per HPI and Reports no additional gastrointestinal complaints Genitourinary: Genitourinary: Reports no additional female genitourinary complaints Musculoskeletal: Musculoskeletal: Reports no additional musculoskeletal complaints Integumentary/Breasts: Skin/Breast: Reports system reviewed and no additional complaints, except as docu Neurologic: Reports system reviewed and no additional complaints, except as documented and Reports Normal hearing present Psychiatric: Psychiatric: Reports no additional psychiatric complaints and Reports as per HPI Hematologic/Lymphatic: Hematologic/Lymphatic: Reports no additional hematologic/lymphatic complaints Allergic/Immunologic: Allergic/Immunologic: Reports no additional allergic/immunologic complaints Exam Const: General: cooperative, comfortable, no acute distress, well developed, awake and Physically active Orientation/consciousness: oriented to person, oriented to place, oriented to time and patient oriented x3 Limitations: no limitations HENMT: Head: normal to inspection, No palpable skull fracture present, normocephalic and atraumatic Eyes: General: appearance normal, both eyes and all related structures Alignment and Position: alignment normal Periorbital: periorbital findings normal Eyelids: eyelids normal Pupils: Equal, round and reactive pupils present Neck: Neck: normal visual inspection, full ROM, no lymphadenopathy, trachea midline and supple Chest: Chest palpation & inspection: normal inspection of the chest Resp: Effort & Inspection: normal respiratory effort Auscultation: clear to auscultation bilaterally Percussion: percussion normal Cardio: Palpation: normal PMI Rate: regular rate and tachycardic Rhythm: regular rhythm Heart sounds: S1 normal heart sound present and S2 normal heart sound present Peripheral pulses: Peripheral pulses 2+ throughout GI: Inspection: normal to inspection Auscultation: normal bowel sounds Rectal Exam: deferred : General: Yes no CVA tenderness Back/Spine/Pelvis: Back: no CVA tenderness Cervical Spine: cervical ROM normal Skin: General skin exam: normal color Lesions: no lesions Rashes: no rashes Trauma: no lacerations or abrasions Wounds: no wounds Hair: normal Nails: normal Neuro: General: oriented to person, oriented to place, oriented to time and patient oriented x3 Cranial nerves: Yes Equal, round and reactive pupils present and Yes Normal hearing present Cognition (Neuro): normal cognition Speech: normal speech Gait exam (Neuro): Normal gait present Motor exam (neuro): 5/5 motor strength present throughout Sensory Exam: normal sensation Extrem: General: normal to inspection Right upper extremity: normal to inspection and shoulder/upper arm Left upper extremity: normal to inspection and shoulder/upper arm Other: 3+ pitting edema bilaterally Psych: Appearance: grossly normal Mental Status: mental status grossly normal Speech and movement: Normal speech and movement present Affect: normal affect Attitude: cooperative Thought process: Normal thought process present Insight: Good insight present (Psych) Judgement: Good judgement present (Psych) Objective Data Vital Signs Vital Signs: Vital Signs - 24 hr 05/27/25 11:03 05/27/25 11:34 05/27/25 12:00 Temperature 98.3 F Pulse Rate 124 H 124 H Respiratory Rate 20 Blood Pressure 103/60 103/60 Pulse Oximetry 96 Oxygen Delivery Nasal Cannula Oxygen Flow Rate 4 05/27/25 12:00 05/27/25 12:00 05/27/25 12:27 Temperature Pulse Rate 122 H 114 H Respiratory Rate Blood Pressure Pulse Oximetry 96 Oxygen Delivery Nasal Cannula Oxygen Flow Rate 4 05/27/25 13:02 05/27/25 13:06 05/27/25 14:00 Temperature Pulse Rate 122 H 122 H 120 H Respiratory Rate Blood Pressure 103/60 103/60 101/67 Pulse Oximetry Oxygen Delivery Oxygen Flow Rate 05/27/25 14:00 05/27/25 14:00 05/27/25 16:00 Temperature Pulse Rate 120 H 120 H 123 H Respiratory Rate Blood Pressure 101/67 102/59 L Pulse Oximetry Oxygen Delivery Oxygen Flow Rate 05/27/25 16:00 05/27/25 16:00 05/27/25 16:26 Temperature 97.0 F L Pulse Rate 122 H 123 H Respiratory Rate 20 Blood Pressure 102/59 L Pulse Oximetry 92 92 Oxygen Delivery Nasal Cannula Oxygen Flow Rate 4 05/27/25 18:00 05/27/25 18:00 05/27/25 18:10 Temperature 97.4 F L Pulse Rate 123 H 123 H 123 H Respiratory Rate 16 Blood Pressure 125/64 125/64 Pulse Oximetry 95 Oxygen Delivery Oxygen Flow Rate 05/27/25 19:39 05/27/25 19:59 05/27/25 20:00 Temperature Pulse Rate 124 H Respiratory Rate 18 Blood Pressure 99/54 L Pulse Oximetry 93 95 95 Oxygen Delivery Nasal Cannula Nasal Cannula Oxygen Flow Rate 4 4 10/04/25 20:00 05/27/25 20:00 05/27/25 22:00 Temperature Pulse Rate 124 H 124 H 124 H Respiratory Rate Blood Pressure 99/54 L 102/63 Pulse Oximetry Oxygen Delivery Oxygen Flow Rate 05/27/25 22:00 05/27/25 22:00 05/28/25 00:00 Temperature 97.5 F L Pulse Rate 124 H 124 H 123 H Respiratory Rate 19 Blood Pressure 102/63 110/69 Pulse Oximetry 95 Oxygen Delivery Oxygen Flow Rate 05/28/25 00:00 05/28/25 00:00 05/28/25 00:19 Temperature Pulse Rate 124 H 123 H Respiratory Rate Blood Pressure Pulse Oximetry 95 Oxygen Delivery Nasal Cannula Oxygen Flow Rate 4 05/28/25 00:33 05/28/25 00:33 05/28/25 01:53 Temperature Pulse Rate 123 H 123 H 91 Respiratory Rate Blood Pressure 110/69 110/69 94/56 L Pulse Oximetry Oxygen Delivery Oxygen Flow Rate 05/28/25 02:00 05/28/25 02:05 05/28/25 04:00 Temperature Pulse Rate 90 91 Respiratory Rate Blood Pressure 94/56 L Pulse Oximetry 94 Oxygen Delivery Nasal Cannula Oxygen Flow Rate 4 05/28/25 04:00 05/28/25 04:00 05/28/25 04:00 Temperature 98.2 F Pulse Rate 118 H 121 H 121 H Respiratory Rate 22 H Blood Pressure 106/67 106/67 Pulse Oximetry 92 Oxygen Delivery Oxygen Flow Rate 05/28/25 06:00 05/28/25 06:00 05/28/25 06:14 Temperature Pulse Rate 118 H 118 H Respiratory Rate Blood Pressure 108/60 108/60 Pulse Oximetry Oxygen Delivery Oxygen Flow Rate 05/28/25 06:15 05/28/25 07:30 05/28/25 08:00 Temperature 98.2 F Pulse Rate 118 H 73 94 Respiratory Rate 18 Blood Pressure 111/61 111/61 Pulse Oximetry 96 Oxygen Delivery Oxygen Flow Rate 05/28/25 08:00 05/28/25 08:00 05/28/25 08:09 Temperature Pulse Rate 94 102 H Respiratory Rate 20 Blood Pressure Pulse Oximetry 96 Oxygen Delivery Nasal Cannula Oxygen Flow Rate 4 Intake/Output Intake/Output: Intake & Output 05/25/25 05/26/25 05/27/25 05/28/25 23:59 23:59 23:59 23:59 Intake Total 237 2158.6 1509.1 586.8 Output Total 2100 9170 3650 525 Balance -1863 -391.4 -2140.9 61.8 Meds/Results Medications: Active Medications Generic Name Dose Route Start Last Admin Trade Name Freq PRN Reason Stop Dose Admin Aspirin 325 mg 05/26/25 09:00 05/28/25 08:49 Aspirin 325 Mg Enteric Tablet PO 325 mg QAM YODIT Administration Azelastine HCl 1 spray 05/26/25 09:00 05/28/25 08:50 Azelastine Hcl Nasal 0.1% 137 Mcg/Spr 30 Ml Btl NASAL 1 spray Q12HR YODIT Administration Benzonatate 200 mg 05/26/25 03:04 Benzonatate 100 Mg Capsule PO BID PRN cough Diltiazem HCl 240 mg 05/26/25 09:00 05/28/25 08:50 Diltiazem Hcl Cd 240 Mg Cap.24hr PO 240 mg DAILY YODIT Administration Doxycycline Hyclate 100 mg 05/26/25 07:00 05/28/25 06:15 Doxycycline Hyclate 100 Mg Tablet PO 100 mg 0700,1600 YODIT Administration Duloxetine HCl 20 mg 05/26/25 09:00 05/28/25 08:49 Duloxetine Hcl 20 Mg Capsule.Dr PO 20 mg DAILY YODIT Administration Empagliflozin 10 mg 05/26/25 09:00 05/28/25 08:50 Empagliflozin 10 Mg Tablet PO 10 mg DAILY YODIT Administration Ferrous Sulfate 325 mg 05/26/25 09:00 05/28/25 08:50 Ferrous Sulfate 325 Mg Tablet BY MOUTH 325 mg BID YODIT Administration Fluticasone/Umeclidinium/Vilanterol 1 puff 05/26/25 08:00 05/28/25 08:09 Fluticasone/Umeclidin/Vilanter 100-62.5-25 Mcg Ellipta INHALATION 1 puff DAILYRT YODIT Administration Furosemide 40 mg 05/25/25 21:00 05/28/25 08:53 Furosemide Inj 40 Mg/4 Ml Vial IV PUSH 40 mg Q12HR YODIT Administration Amiodarone HCl/Dextrose 360 mg in 200 mls @ 16.667 mls/hr 05/26/25 12:30 05/28/25 08:00 Nexterone 360 Mg/D5w 200 Ml IV CONT 0.5 mg/min .Q12H YODIT 16.67 mls/hr 0.5 MG/MIN Infusion Losartan Potassium 50 mg 05/26/25 09:00 05/28/25 08:50 Losartan Potassium 50 Mg Tablet PO 50 mg DAILY YODIT Administration Melatonin 5 mg 05/26/25 02:23 Melatonin 5 Mg Tablet PO HS PRN Insomnia Metoprolol Tartrate 50 mg 05/27/25 00:00 05/28/25 06:15 Metoprolol Tartrate 50 Mg Tab PO 50 mg Q6HR YODIT Administration Montelukast Sodium 10 mg 05/26/25 09:00 05/28/25 08:49 Montelukast Sodium 10 Mg Tablet PO 10 mg DAILY YODIT Administration Perflutren Lipid Microsphere 0 ml 05/26/25 08:16 Perflutren Lipid Microspheres 1.5 Ml Vial Diluted To 10 Ml Total Volume IV PUSH 05/29/25 08:16 ONCE PRN adequate visualization Protocol Potassium Chloride 20 meq 05/26/25 09:00 05/28/25 08:53 Potassium Chloride 20 Meq Packet (For Liquid) PO 20 meq DAILY YODIT Administration Quetiapine Fumarate 25 mg 05/26/25 21:00 05/27/25 20:04 Quetiapine Fumarate 25 Mg Tablet PO 25 mg HS YODIT Administration Ropinirole HCl 4 mg 05/26/25 21:00 05/27/25 20:04 Ropinirole Hcl 1 Mg Tablet PO 4 mg HS YODIT Administration Spironolactone 25 mg 05/26/25 09:00 05/28/25 08:49 Spironolactone 25 Mg Tablet PO 25 mg DAILY YODIT Administration Topiramate 200 mg 05/26/25 09:00 05/28/25 08:50 Topiramate 100 Mg Tablet PO 200 mg Q12HR YODIT Administration Trazodone HCl 100 mg 05/26/25 21:00 05/27/25 20:04 Trazodone Hcl 50 Mg Tablet PO 100 mg HS YODIT Administration Radiology Results: ITS Impressions Chest X-Ray 05/25/25 15:22 Impression: CHF. Superimposed probable pneumonia. Left lung nodule. CT chest recommended Chest CTA 05/25/25 18:03 IMPRESSION: 1. No PE. 2. Large right pleural effusion. 3. Interstitial pulmonary edema. 4. Emphysema. Recommend annual screening CT chest.
--- NOTE | 2025-05-28 14:37 | P.PNIM_ITS ---
Progress Note: A&P Assessment and Plan (1) Acute on chronic congestive heart failure: Code(s): I50.9 - Heart failure, unspecified Status: Chronic Assessment and Plan: ECHO EF 60-65% and PASP 55mmHg continue Lasix 40mg iv bid and Spironolactone cardiology following - (2) Atrial flutter with rapid ventricular response: Code(s): I48.92 - Unspecified atrial flutter Status: Acute Assessment and Plan: -according to her records the patient's heart rate is typically fast -patient is no longer on anticoagulation as she refuses since she has had prior rectus sheath hematoma twice on Eliquis. Angel Vasc score is 3. -patient's heart rate remains in the 120s. -on Amiodarone infusion per cards -for SRIDEVI/DCCV (3) Chronic kidney disease, stage 3: Code(s): N18.30 - Chronic kidney disease, stage 3 unspecified Status: Acute Assessment and Plan: -monitor BMP daily. -patient's creatinine is 1.11 which is improved from her baseline of 1.23-1.38. -BUN is 14 which is improved from her baseline of 23-24. Her estimated creatinine clearance. Is now 63 compared her baseline of 47-52. Her estimated GFR is 49 which has improved from her baseline of 04/22/2042. (4) Chronic obstructive pulmonary disease: Code(s): J44.9 - Chronic obstructive pulmonary disease, unspecified Status: Chronic Assessment and Plan: -the patient is typically on oxygen at 2-3 L at home. She was turned up to 6 L when she came into the emergency room. On baseline oxygen currently - (5) Acute on chronic respiratory failure with hypoxia and hypercapnia: Code(s): J96.21 - Acute and chronic respiratory failure with hypoxia; J96.22 - Acute and chronic respiratory failure with hypercapnia Status: Acute Assessment and Plan: Now at baseline oxygen resolved Plan Right pleural effusion Patient declined thoracentesis Continue diuretics monitor DVT prophylaxis on Sq Lovenox Subjective Date/time seen: 05/28/25 14:37 Interval history: Comfortable at bedside For SRIDEVI with DCCV Review of Systems 2 Constitutional: Constitutional: Reports as per HPI and Reports no additional constitutional complaints Eyes: Eyes: Reports as per HPI and Reports no additional eye complaints ENT: Reports system reviewed and no additional complaints, except as documented and Reports Normal hearing present Cardiovascular: Cardiovascular: Reports no additional cardiovascular complaints Respiratory: Respiratory: Reports as per HPI and Reports no additional respiratory complaints Gastrointestinal: Gastrointestinal: Reports as per HPI and Reports no additional gastrointestinal complaints Genitourinary: Genitourinary: Reports no additional female genitourinary c omplaints Musculoskeletal: Musculoskeletal: Reports no additional musculoskeletal complaints Integumentary/Breasts: Skin/Breast: Reports system reviewed and no additional complaints, except as docu Neurologic: Reports system reviewed and no additional complaints, except as documented and Reports Normal hearing present Psychiatric: Psychiatric: Reports no additional psychiatric complaints and Reports as per HPI Hematologic/Lymphatic: Hematologic/Lymphatic: Reports no additional hematologic/lymphatic complaints Allergic/Immunologic: Allergic/Immunologic: Reports no additional allergic/immunologic complaints Exam Const: General: cooperative, comfortable, no acute distress, well developed, awake and Physically active Orientation/consciousness: oriented to person, oriented to place, oriented to time and patient oriented x3 Limitations: no limitations HENMT: Head: normal to inspection, No palpable skull fracture present, normocephalic and atraumatic Eyes: General: appearance normal, both eyes and all related structures Alignment and Position: alignment normal Periorbital: periorbital findings normal Eyelids: eyelids normal Pupils: Equal, round and reactive pupils present Neck: Neck: normal visual inspection, full ROM, no lymphadenopathy, trachea midline and supple Chest: Chest palpation & inspection: normal inspection of the chest Resp: Effort & Inspection: normal respiratory effort Auscultation: clear to auscultation bilaterally Percussion: percussion normal Cardio: Palpation: normal PMI Rate: regular rate and tachycardic Rhythm: regular rhythm Heart sounds: S1 normal heart sound present and S2 normal heart sound present Peripheral pulses: Peripheral pulses 2+ throughout GI: Inspection: normal to inspection Auscultation: normal bowel sounds Rectal Exam: deferred : General: Yes no CVA tenderness Back/Spine/Pelvis: Back: no CVA tenderness Cervical Spine: cervical ROM normal Skin: General skin exam: normal color Lesions: no lesions Rashes: no rashes Trauma: no lacerations or abrasions Wounds: no wounds Hair: normal Nails: normal Neuro: General: oriented to person, oriented to place, oriented to time and patient oriented x3 Cranial nerves: Yes Equal, round and reactive pupils present and Yes Normal hearing present Cognition (Neuro): normal cognition Speech: normal speech Gait exam (Neuro): Normal gait present Motor exam (neuro): 5/5 motor strength present throughout Sensory Exam: normal sensation Extrem: General: normal to inspection Right upper extremity: normal to inspection and shoulder/upper arm Left upper extremity: normal to inspection and shoulder/upper arm Other: 3+ pitting edema bilaterally Psych: Appearance: grossly normal Mental Status: mental status grossly normal Speech and movement: Normal speech and movement present Affect: n ormal affect Attitude: cooperative Thought process: Normal thought process present Insight: Good insight present (Psych) Judgement: Good judgement present (Psych) Objective Data Vital Signs Vital Signs: Vital Signs - 24 hr 05/27/25 16:00 05/27/25 16:00 05/27/25 16:00 Temperature Pulse Rate 123 H 122 H Respiratory Rate Blood Pressure 102/59 L Pulse Oximetry 92 Oxygen Delivery Nasal Cannula Oxygen Flow Rate 4 05/27/25 16:26 05/27/25 18:00 05/27/25 18:00 Temperature 97.0 F L Pulse Rate 123 H 123 H 123 H Respiratory Rate 20 Blood Pressure 102/59 L 125/64 Pulse Oximetry 92 Oxygen Delivery Oxygen Flow Rate 05/27/25 18:10 05/27/25 19:39 05/27/25 19:59 Temperature 97.4 F L Pulse Rate 123 H 124 H Respiratory Rate 16 18 Blood Pressure 125/64 99/54 L Pulse Oximetry 95 93 95 Oxygen Delivery Nasal Cannula Oxygen Flow Rate 4 05/27/25 20:00 05/27/25 20:00 05/27/25 20:00 Temperature Pulse Rate 124 H 124 H Respiratory Rate Blood Pressure 99/54 L Pulse Oximetry 95 Oxygen Delivery Nasal Cannula Oxygen Flow Rate 4 05/27/25 22:00 05/27/25 22:00 05/27/25 22:00 Temperature Pulse Rate 124 H 124 H 124 H Respiratory Rate Blood Pressure 102/63 102/63 Pulse Oximetry Oxygen Delivery Oxygen Flow Rate 05/28/25 00:00 05/28/25 00:00 05/28/25 00:00 Temperature 97.5 F L Pulse Rate 123 H 124 H Respiratory Rate 19 Blood Pressure 110/69 Pulse Oximetry 95 95 Oxygen Delivery Nasal Cannula Oxygen Flow Rate 4 05/28/25 00:19 05/28/25 00:33 05/28/25 00:33 Temperature Pulse Rate 123 H 123 H 123 H Respiratory Rate Blood Pressure 110/69 110/69 Pulse Oximetry Oxygen Delivery Oxygen Flow Rate 05/28/25 01:53 05/28/25 02:00 05/28/25 02:05 Temperature Pulse Rate 91 90 91 Respiratory Rate Blood Pressure 94/56 L 94/56 L Pulse Oximetry Oxygen Delivery Oxygen Flow Rate 05/28/25 04:00 05/28/25 04:00 05/28/25 04:00 Temperature Pulse Rate 118 H 121 H Respiratory Rate Blood Pressure 106/67 Pulse Oximetry 94 Oxygen Delivery Nasal Cannula Oxygen Flow Rate 4 05/28/25 04:00 05/28/25 06:00 05/28/25 06:00 Temperature 98.2 F Pulse Rate 121 H 118 H Respiratory Rate 22 H Blood Pressure 106/67 108/60 Pulse Oximetry 92 Oxygen Delivery Oxygen Flow Rate 05/28/25 06:14 05/28/25 06:15 05/28/25 07:30 Temperature 98.2 F Pulse Rate 118 H 118 H 73 Respiratory Rate 18 Blood Pressure 108/60 111/61 Pulse Oximetry 96 Oxygen Delivery Oxygen Flow Rate 05/28/25 08:00 05/28/25 08:00 05/28/25 08:00 Temperature Pulse Rate 94 94 Respiratory Rate Blood Pressure 111/61 Pulse Oximetry 96 Oxygen Delivery Nasal Cannula Oxygen Flow Rate 4 05/28/25 08:09 05/28/25 10:00 05/28/25 10:00 Temperature Pulse Rate 102 H 118 H 109 H Respiratory Rate 20 20 Blood Pressure 105/58 L 105/58 L Pulse Oximetry 92 Oxygen Delivery Oxygen Flow Rate 05/28/25 10:00 05/28/25 12:00 05/28/25 12:00 Temperature 98.2 F Pulse Rate 109 H 117 H 117 H Respiratory Rate 18 Blood Pressure 115/68 Pulse Oximetry 94 Oxygen Delivery Oxygen Flow Rate 05/28/25 12:00 05/28/25 12:00 05/28/25 12:33 Temperature Pulse Rate 117 H 117 H Respiratory Rate Blood Pressure 115/68 115/68 Pulse Oximetry 94 Oxygen Delivery Nasal Cannula Oxygen Flow Rate 4 05/28/25 12:57 05/28/25 12:57 05/28/25 14:00 Temperature Pulse Rate 117 H 117 H 120 H Respiratory Rate Blood Pressure 115/68 Pulse Oximetry Oxygen Delivery Oxygen Flow Rate 05/28/25 14:00 Temperature Pulse Rate Respiratory Rate Blood Pressure 94/55 L Pulse Oximetry Oxygen Delivery Oxygen Flow Rate Intake/Output Intake/Output: Intake & Output 05/25/25 05/26/25 05/27/25 05/28/25 23:59 23:59 23:59 23:59 Intake Total 237 2158.6 1509.1 902.5 Output Total 2100 2550 3650 525 Balance -1863 -391.4 -2140.9 377.5 Meds/Results Medications: Active Medications Generic Name Dose Route Start Last Admin Trade Name Freq PRN Reason Stop Dose Admin Aspirin 325 mg 05/26/25 09:00 05/28/25 08:49 Aspirin 325 Mg Enteric Tablet PO 325 mg QAM YODIT Administration Azelastine HCl 1 spray 05/26/25 09:00 05/28/25 08:50 Azelastine Hcl Nasal 0.1% 137 Mcg/Spr 30 Ml Btl NASAL 1 spray Q12HR YODIT Administration Benzonatate 200 mg 05/26/25 03:04 Benzonatate 100 Mg Capsule PO BID PRN cough Diltiazem HCl 240 mg 05/26/25 09:00 05/28/25 08:50 Diltiazem Hcl Cd 240 Mg Cap.24hr PO 240 mg DAILY YODIT Administration Doxycycline Hyclate 100 mg 05/26/25 07:00 05/28/25 06:15 Doxycycline Hyclate 100 Mg Tablet PO 100 mg 0700,1600 YODIT Administration Duloxetine HCl 20 mg 05/26/25 09:00 05/28/25 08:49 Duloxetine Hcl 20 Mg Capsule.Dr PO 20 mg DAILY YODIT Administration Empagliflozin 10 mg 05/26/25 09:00 05/28/25 08:50 Empagliflozin 10 Mg Tablet PO 10 mg DAILY YODIT Administration Ferrous Sulfate 325 mg 05/26/25 09:00 05/28/25 08:50 Ferrous Sulfate 325 Mg Tablet BY MOUTH 325 mg BID YODIT Administration Fluticasone/Umeclidinium/Vilanterol 1 puff 05/26/25 08:00 05/28/25 08:09 Fluticasone/Umeclidin/Vilanter 100-62.5-25 Mcg Ellipta INHALATION 1 puff DAILYRT YODIT Administration Furosemide 40 mg 05/25/25 21:00 05/28/25 08:53 Furosemide Inj 40 Mg/4 Ml Vial IV PUSH 40 mg Q12HR YODIT Administration Amiodarone HCl/Dextrose 360 mg in 200 mls @ 16.667 mls/hr 05/26/25 12:30 05/28/25 12:57 Nexterone 360 Mg/D5w 200 Ml IV CONT 0.5 mg/min .Q12H YODIT 16.67 mls/hr 0.5 MG/MIN Administration Losartan Potassium 50 mg 05/26/25 09:00 05/28/25 08:50 Losartan Potassium 50 Mg Tablet PO 50 mg DAILY YODIT Administration Melatonin 5 mg 05/26/25 02:23 Melatonin 5 Mg Tablet PO HS PRN Insomnia Metoprolol Tartrate 50 mg 05/27/25 00:00 05/28/25 12:57 Metoprolol Tartrate 50 Mg Tab PO 50 mg Q6HR YODIT Administration Montelukast Sodium 10 mg 05/26/25 09:00 05/28/25 08:49 Montelukast Sodium 10 Mg Tablet PO 10 mg DAILY YODIT Administration Perflutren Lipid Microsphere 0 ml 05/26/25 08:16 Perflutren Lipid Microspheres 1.5 Ml Vial Diluted To 10 Ml Total Volume IV PUSH 05/29/25 08:16 ONCE PRN adequate visualization Protocol Potassium Chloride 20 meq 05/26/25 09:00 05/28/25 08:53 Potassium Chloride 20 Meq Packet (For Liquid) PO 20 meq DAILY YODIT Administration Quetiapine Fumarate 25 mg 05/26/25 21:00 05/27/25 20:04 Quetiapine Fumarate 25 Mg Tablet PO 25 mg HS YODIT Administration Ropinirole HCl 4 mg 05/26/25 21:00 05/27/25 20:04 Ropinirole Hcl 1 Mg Tablet PO 4 mg HS YODIT Administration Spironolactone 25 mg 05/26/25 09:00 05/28/25 08:49 Spironolactone 25 Mg Tablet PO 25 mg DAILY YODIT Administration Topiramate 200 mg 05/26/25 09:00 05/28/25 08:50 Topiramate 100 Mg Tablet PO 200 mg Q12HR YODIT Administration Trazodone HCl 100 mg 05/26/25 21:00 05/27/25 20:04 Trazodone Hcl 50 Mg Tablet PO 100 mg HS YODIT Administration Radiology Results: ITS Impressions Chest X-Ray 05/25/25 15:22 Impression: CHF. Superimposed probable pneumonia. Left lung nodule. CT chest recommended Chest CTA 05/25/25 18:03 IMPRESSION: 1. No PE. 2. Large right pleural effusion. 3. Interstitial pulmonary edema. 4. Emphysema. Recommend annual screening CT chest.
[2025-05-29] VITALS (27 sets, daily range): BP systolic 93–112; BP diastolic 53–84; PULSE 68–119; RESP 16–20; TEMP 36.2–36.9; O2SAT 90–98
[2025-05-29 04:44] LABS: Hematocrit 36.1 % (37.0-47.0); Hemoglobin 10.3 g/dL (12.0-15.0); Immature Granulocyte Percent A 0.4 % (0-0.5); Lymphocytes Absolute Auto 1.89 K/mm3 (0.9-3.2); Mean Corpuscular HGB Conc 28.5 g/dl (32-36); Mean Corpuscular Hemoglobin 24.3 pg (26-34); Mean Corpuscular Volume 85.3 fl (80-100); Nucleated Red Blood Cells Absolute Auto 0.000 K/mm3 (0.0-0.012); Nucleated Red Blood Cells Perc 0.0 % (0.0-0.2); Platelet Count Result 244 k/mm3 (150-375); Red Blood Count 4.23 M/mm3 (4.2-5.4); White Blood Count 11.7 K/mm3 (4.5-10.0)
[2025-05-29 05:03] LABS: Alanine Aminotransferase 12 U/L (6-35); Albumin Level 3.6 g/dL (3.5-5.1); Alkaline Phosphatase 81 U/L (38-126); Aspartate Amino Transferase 15 U/L (14-36); Bilirubin,Total 0.4 mg/dL (0.2-1.3); Blood Urea Nitrogen 45 mg/dL (7-17); Calcium 8.1 mg/dL (8.4-10.2); Carbon Dioxide > 40 mmol/L (22-30); Chloride 91 mmol/L (98-107); Estimated CRCL calculation 34 ml/min; Estimated Glomerular Filt Rate 26; Glucose 115 mg/dL (65-110); Magnesium 2.1 mg/dL (1.6-2.3); Potassium 3.9 mmol/L (3.4-5.0); Sodium 135 mmol/L (137-145); Total Protein 6.9 g/dL (6.3-8.2)
[2025-05-29 05:13] LABS: Anisocytosis 1+; Hypochromasia 1+
[2025-05-29 05:14] LABS: Ovalocytes Occasional; Schistocytes None Seen
--- NOTE | 2025-05-29 06:05 | ECG_ITS ---
Test Date: 2025-05-29 06:46:24 Measurements Intervals Norris Rate: 115 P: 0 WA: 0 QRS: 14 QRSD: 172 T: -60 QT: 412 QTc: 570 Interpretive Statements ATRIAL FLUTTER/TACHYCARDIA WITH RAPID VENTRICULAR RESPONSE RIGHT BUNDLE BRANCH BLOCK BASELINE ARTIFACT- I, III, AVR, AVL, AVF ABNORMAL ECG Compared to ECG 05/27/2025 08:14:25 HEART RATE HAS DECREASED Electronically Signed On 05-29-2025 06:58:34 CDT by Hong Meade D.O.
[2025-05-29] MEDS: METOPROLOL TARTRATE 50 MG TAB PO (06:23)
[2025-05-29] MEDS: DOXYCYCLINE HYCLATE 100 MG TABLET PO ×2 (06:25→17:14)
--- NOTE | 2025-05-29 07:43 | PM.PNCARD ---
Progress Note: A&P Assessment and Plan (1) Atrial flutter with rapid ventricular response: Code(s): I48.92 - Unspecified atrial flutter Status: Acute Assessment and Plan: In atrial flutter at 113 bpm. [id number] 3. On Amiodarone and aspirin. On Diltiazem and Metoprolol for rate control. 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 Start 05/26/25 Amiodarone drip restore sinus rhythm and maintain it or improve HR control with it. Discuss SRIDEVI/DC cardioversion on Thursday if she is still in atrial flutter, but she adamantly declines. Stop Amiodarone drip and resume Amiodarone 200 mg PO daily. Change Metoprolol 50 mg every 6 hours to 100 mg BID. (2) PAF (paroxysmal atrial fibrillation): Code(s): I48.0 - Paroxysmal atrial fibrillation Status: Acute (3) Acute on chronic congestive heart failure: Code(s): I50.9 - Heart failure, unspecified Status: Chronic Assessment and Plan: Right thoracentesis been ordered by hospitalist. On Lasix 40 mg IV BID and on Spironolactone 25 mg daily, on Jardiance. Due to worsening kidney function, change Lasix to 40 mg PO BID. (4) Hypertension: Code(s): I10 - Essential (primary) hypertension Status: Acute Assessment and Plan: Stable. Subjective Date/time seen: 05/29/25 07:43 Interval history: Reports breathing is improving with diuresis. No chest pains. Exam Const: General: cooperative, healthy appearing, comfortable and obese Nutritional Appearance: obese Orientation/consciousness: oriented to person, oriented to place and oriented to time Resp: Auscultation: no crackles, no rales, no rhonchi, no wheezes and diminished lung sounds Cardio: Rate: tachycardic Rhythm: abnormal rhythm Heart sounds: no murmurs Peripheral pulses: dorsalis pedis present Neuro: General: oriented to person, oriented to place and oriented to time Extrem: Right lower extremity: edema Left lower extremity: edema Other: Mod edema of both legs Objective Data Vital Signs Vital Signs: Vital Signs - 24 hr 05/28/25 08:00 05/28/25 08:00 05/28/25 08:00 Temperature Pulse Rate 94 94 Respiratory Rate Blood Pressure 111/61 Pulse Oximetry 96 Oxygen Delivery Nasal Cannula Oxygen Flow Rate 4 Fraction of Inspired Oxygen 05/28/25 08:09 05/28/25 10:00 05/28/25 10:00 Temperature Pulse Rate 102 H 118 H 109 H Respiratory Rate 20 20 Blood Pressure 105/58 L 105/58 L Pulse Oximetry 92 Oxygen Delivery Oxygen Flow Rate Fraction of Inspired Oxygen 05/28/25 10:00 05/28/25 12:00 05/28/25 12:00 Temperature 98.2 F Pulse Rate 109 H 117 H 117 H Respiratory Rate 18 Blood Pressure 115/68 Pulse Oximetry 94 Oxygen Delivery Oxygen Flow Rate Fraction of Inspired Oxygen 05/28/25 12:00 05/28/25 12:00 05/28/25 12:33 Temperature Pulse Rate 117 H 117 H Respiratory Rate Blood Pressure 115/68 115/68 Pulse Oximetry 94 Oxygen Delivery Nasal Cannula Oxygen Flow Rate 4 Fraction of Inspired Oxygen 05/28/25 12:57 05/28/25 12:57 05/28/25 14:00 Temperature Pulse Rate 117 H 117 H 120 H Respiratory Rate Blood Pressure 115/68 Pulse Oximetry Oxygen Delivery Oxygen Flow Rate Fraction of Inspired Oxygen 05/28/25 14:00 05/28/25 14:00 05/28/25 16:00 Temperature 98 F Pulse Rate 120 H 118 H Respiratory Rate 20 Blood Pressure 94/55 L 94/55 L 102/59 L Pulse Oximetry 94 Oxygen Delivery Oxygen Flow Rate Fraction of Inspired Oxygen 05/28/25 16:00 05/28/25 16:00 05/28/25 16:00 Temperature Pulse Rate 118 H 119 H Respiratory Rate Blood Pressure 102/59 L Pulse Oximetry 94 Oxygen Delivery Nasal Cannula Oxygen Flow Rate 4 Fraction of Inspired Oxygen 05/28/25 18:00 05/28/25 18:00 05/28/25 18:06 Temperature Pulse Rate 101 H 101 H 101 H Respiratory Rate Blood Pressure 99/63 L 99/63 L Pulse Oximetry Oxygen Delivery Oxygen Flow Rate Fraction of Inspired Oxygen 05/28/25 19:46 05/28/25 19:56 05/28/25 19:57 Temperature 98.0 F Pulse Rate 118 H 115 H 116 H Respiratory Rate 20 20 16 Blood Pressure 99/54 L Pulse Oximetry 95 94 91 Oxygen Delivery Nasal Cannula Autopap Oxygen Flow Rate 4 Fraction of Inspired Oxygen 36 05/28/25 20:00 05/28/25 20:00 05/28/25 20:00 Temperature Pulse Rate 118 H 109 H Respiratory Rate Blood Pressure 99/54 L Pulse Oximetry 94 Oxygen Delivery Nasal Cannula Oxygen Flow Rate 4 Fraction of Inspired Oxygen 05/28/25 21:58 05/28/25 22:00 05/28/25 22:00 Temperature Pulse Rate 110 H 111 H 110 H Respiratory Rate Blood Pressure 95/49 L 95/49 L Pulse Oximetry Oxygen Delivery Oxygen Flow Rate Fraction of Inspired Oxygen 05/28/25 23:59 05/29/25 00:00 05/29/25 00:00 Temperature 98.1 F Pulse Rate 120 H 119 H 119 H Respiratory Rate 20 Blood Pressure 108/61 108/61 Pulse Oximetry 91 Oxygen Delivery Oxygen Flow Rate Fraction of Inspired Oxygen 05/29/25 00:00 05/29/25 00:00 05/29/25 01:02 Temperature Pulse Rate 119 H 94 Respiratory Rate Blood Pressure 108/61 Pulse Oximetry 91 Oxygen Delivery Nasal Cannula Oxygen Flow Rate 4 Fraction of Inspired Oxygen 05/29/25 01:02 05/29/25 01:20 05/29/25 02:00 Temperature Pulse Rate 94 117 H 95 Respiratory Rate 16 Blood Pressure 108/61 109/66 Pulse Oximetry 92 Oxygen Delivery Autopap Oxygen Flow Rate Fraction of Inspired Oxygen 05/29/25 02:00 05/29/25 02:00 05/29/25 03:59 Temperature 97.9 F Pulse Rate 95 95 118 H Respiratory Rate 19 Blood Pressure 109/66 104/74 Pulse Oximetry 91 Oxygen Delivery Oxygen Flow Rate Fraction of Inspired Oxygen 05/29/25 04:00 05/29/25 04:00 05/29/25 04:00 Temperature Pulse Rate 118 H 100 Respiratory Rate Blood Pressure 104/74 Pulse Oximetry 92 Oxygen Delivery Nasal Cannula Oxygen Flow Rate 4 Fraction of Inspired Oxygen 05/29/25 04:22 05/29/25 05:55 05/29/25 05:55 Temperature Pulse Rate 116 H 116 H Respiratory Rate 16 Blood Pressure 112/84 Pulse Oximetry 92 Oxygen Delivery Autopap Oxygen Flow Rate Fraction of Inspired Oxygen 05/29/25 05:56 05/29/25 06:23 Temperature Pulse Rate 116 H 115 H Respiratory Rate Blood Pressure 112/84 Pulse Oximetry Oxygen Delivery Oxygen Flow Rate Fraction of Inspired Oxygen Intake/Output Intake/Output: Intake & Output 05/26/25 05/27/25 05/28/25 05/29/25 23:59 23:59 23:59 23:59 Intake Total 2158.6 1509.1 1293.3 520.8 Output Total 2550 3650 725 675 Balance -391.4 -2140.9 568.3 -154.2 Meds/Results Medications: Active Medications Generic Name Dose Route Start Last Admin Trade Name Freq PRN Reason Stop Dose Admin Amiodarone HCl 200 mg 05/29/25 08:00 Amiodarone Hcl 200 Mg Tablet PO DAILY@0800 YODIT Aspirin 325 mg 05/26/25 09:00 05/28/25 08:49 Aspirin 325 Mg Enteric Tablet PO 325 mg QAM YODIT Administration Azelastine HCl 1 spray 05/26/25 09:00 05/28/25 20:49 Azelastine Hcl Nasal 0.1% 137 Mcg/Spr 30 Ml Btl NASAL 1 spray Q12HR YODIT Administration Benzonatate 200 mg 05/26/25 03:04 Benzonatate 100 Mg Capsule PO BID PRN cough Diltiazem HCl 240 mg 05/26/25 09:00 05/28/25 08:50 Diltiazem Hcl Cd 240 Mg Cap.24hr PO 240 mg DAILY YODIT Administration Doxycycline Hyclate 100 mg 05/26/25 07:00 05/29/25 06:25 Doxycycline Hyclate 100 Mg Tablet PO 100 mg 0700,1600 YODIT Administration Duloxetine HCl 20 mg 05/26/25 09:00 05/28/25 08:49 Duloxetine Hcl 20 Mg Capsule.Dr PO 20 mg DAILY YODIT Administration Empagliflozin 10 mg 05/26/25 09:00 05/28/25 08:50 Empagliflozin 10 Mg Tablet PO 10 mg DAILY YODIT Administration Ferrous Sulfate 325 mg 05/26/25 09:00 05/28/25 16:14 Ferrous Sulfate 325 Mg Tablet BY MOUTH 325 mg BID YODIT Administration Fluticasone/Umeclidinium/Vilanterol 1 puff 05/26/25 08:00 05/28/25 08:09 Fluticasone/Umeclidin/Vilanter 100-62.5-25 Mcg Ellipta INHALATION 1 puff DAILYRT YODIT Administration Furosemide 40 mg 05/29/25 09:00 Furosemide 40 Mg Tablet PO BID YODIT Losartan Potassium 50 mg 05/26/25 09:00 05/28/25 08:50 Losartan Potassium 50 Mg Tablet PO 50 mg DAILY YODIT Administration Melatonin 5 mg 05/26/25 02:23 Melatonin 5 Mg Tablet PO HS PRN Insomnia Montelukast Sodium 10 mg 05/26/25 09:00 05/28/25 08:49 Montelukast Sodium 10 Mg Tablet PO 10 mg DAILY YODIT Administration Perflutren Lipid Microsphere 0 ml 05/26/25 08:16 Perflutren Lipid Microspheres 1.5 Ml Vial Diluted To 10 Ml Total Volume IV PUSH 05/29/25 08:16 ONCE PRN adequate visualization Protocol Potassium Chloride 20 meq 05/26/25 09:00 05/28/25 08:53 Potassium Chloride 20 Meq Packet (For Liquid) PO 20 meq DAILY YODIT Administration Quetiapine Fumarate 25 mg 05/26/25 21:00 05/28/25 20:50 Quetiapine Fumarate 25 Mg Tablet PO 25 mg HS YODIT Administration Ropinirole HCl 4 mg 05/26/25 21:00 05/28/25 20:50 Ropinirole Hcl 1 Mg Tablet PO 4 mg HS YODIT Administration Spironolactone 25 mg 05/26/25 09:00 05/28/25 08:49 Spironolactone 25 Mg Tablet PO 25 mg DAILY YODIT Administration Topiramate 200 mg 05/26/25 09:00 05/28/25 20:50 Topiramate 100 Mg Tablet PO 200 mg Q12HR YODIT Administration Trazodone HCl 100 mg 05/26/25 21:00 05/28/25 20:50 Trazodone Hcl 50 Mg Tablet PO 100 mg HS YODIT Administration Radiology Results: ITS Impressions Chest X-Ray 05/25/25 15:22 Impression: CHF. Superimposed probable pneumonia. Left lung nodule. CT chest recommended Chest CTA 05/25/25 18:03 IMPRESSION: 1. No PE. 2. Large right pleural effusion. 3. Interstitial pulmonary edema. 4. Emphysema. Recommend annual screening CT chest. Labs Labs: Laboratory Results - last 24 hr 05/29/25 04:11 WBC 11.7 H RBC 4.23 Hgb 10.3 L Hct 36.1 L MCV 85.3 MCH 24.3 L MCHC 28.5 L RDW 15.7 H Plt Count 244 MPV 9.4 Immature Gran % (Auto) 0.4 Neut % (Auto) 72.1 Lymph % (Auto) 16.2 L Petroleum % (Auto) 8.9 H Eos % (Auto) 1.9 Baso % (Auto) 0.5 Lymph # (Auto) 1.89 Petroleum # (Auto) 1.0 H Eos # (Auto) 0.2 Baso # (Auto) 0.1 Abs Immat Gran (auto) 0.05 H Absolute Neuts (auto) 8.4 H Absolute Nucleated RBC 0.000 Band Neutrophils % Not Reportable Nucleated RBC % 0.0 Platelet Estimate Adequate Hypochromasia 1+ Anisocytosis 1+ Ovalocytes Occasional Schistocytes None seen Sodium 135 L Potassium 3.9 Chloride 91 L Carbon Dioxide > 40 H Anion Gap BUN 45 H D Creatinine 1.95 H Estim Creat Clear Calc 34 Estimated GFR 26 L Glucose 115 H Calcium 8.1 L Magnesium 2.1 Total Bilirubin 0.4 AST 15 ALT 12 Alkaline Phosphatase 81 Total Protein 6.9 Albumin 3.6
[2025-05-29] MEDS: FLUTICASONE/UMECLIDIN/VILANTER 100-62.5-25 MCG ELLIPTA 1 PUFF INHALATION (08:09)
[2025-05-29] MEDS: AZELASTINE HCL NASAL 0.1% 137 MCG/SPR 30 ML BTL 1 SPRAY NASAL ×2 (08:28→20:29)
[2025-05-29] MEDS: SPIRONOLACTONE 25 MG TABLET PO (08:28)
[2025-05-29] MEDS: AMIODARONE HCL 200 MG TABLET PO (08:28)
[2025-05-29] MEDS: ASPIRIN 325 MG ENTERIC TABLET PO (08:28)
[2025-05-29] MEDS: EMPAGLIFLOZIN 10 MG TABLET PO (08:29)
[2025-05-29] MEDS: LOSARTAN POTASSIUM 50 MG TABLET PO (08:29)
[2025-05-29] MEDS: TOPIRAMATE 100 MG TABLET 200 MG PO ×2 (08:29→20:22)
[2025-05-29] MEDS: POTASSIUM CHLORIDE 20 MEQ PACKET (FOR LIQUID) PO (08:29)
[2025-05-29] MEDS: dilTIAZem HCL CD 240 MG CAP.24HR PO (08:29)
[2025-05-29] MEDS: FERROUS SULFATE 325 MG TABLET BY MOUTH ×2 (08:29→17:15)
[2025-05-29] MEDS: MONTELUKAST SODIUM 10 MG TABLET PO (08:29)
[2025-05-29] MEDS: FUROSEMIDE 40 MG TABLET PO ×2 (08:29→17:15)
--- NOTE | 2025-05-29 08:40 | PC.NURSE ---
upon entry to the room for medication pass, the patient stated that her arm at the IV site was hurting. This RN assessed the IV site and noted it to be warm to touch and a knot had formed. Discussed with the patient that it appears that her IV had infiltrated. This RN called the Pharmacist to verify protocol for amiodarone infiltration, and was informed to place a warm compress on the site. The IV was removed, intact, clean dressing applied to the area and a warm compress was placed over the site. Informed the patient that another IV would need to be placed. Verbalized understanding at this time.
--- NOTE | 2025-05-29 08:46 | PC.NURSE ---
At approximately 0800am this RN called the hospitalist assigned to patient to inform them of the increase of BUN and creatinine. Verbalizes understanding at this time.
[2025-05-29] MEDS: METOPROLOL TARTRATE 50 MG TAB 100 MG PO ×2 (11:40→20:23)
--- NOTE | 2025-05-29 12:33 | P.PNIM_ITS ---
Progress Note: A&P Assessment and Plan (1) Acute on chronic congestive heart failure: Code(s): I50.9 - Heart failure, unspecified Status: Chronic Assessment and Plan: ECHo pending continue Lasix 40mg iv bid and Spironolactone cardiology following - (2) Atrial flutter with rapid ventricular response: Code(s): I48.92 - Unspecified atrial flutter Status: Acute Assessment and Plan: -according to her records the patient's heart rate is typically fast -patient is no longer on anticoagulation as she refuses since she has had prior rectus sheath hematoma twice on Eliquis. Angel Vasc score is 3. -S/p Amio infusion - Now on AMio PO 200mg daily, Metoprolol 100mg q12 and Cardizem 240 daily -cards following, HR still in 110s Patient declined SRIDEVI/DCCV today (3) Chronic kidney disease, stage 3: Code(s): N18.30 - Chronic kidney disease, stage 3 unspecified Status: Acute Assessment and Plan: -monitor BMP daily. -patient's creatinine is 1.11 which is improved from her baseline of 1.23-1.38. -BUN is 14 which is improved from her baseline of 23-24. Her estimated creatinine clearance. Is now 63 compared her baseline of 47-52. Her estimated GFR is 49 which has improved from her baseline of 04/22/2042. (4) Chronic obstructive pulmonary disease: Code(s): J44.9 - Chronic obstructive pulmonary disease, unspecified Status: Chronic Assessment and Plan: -the patient is typically on oxygen at 2-3 L at home. She was turned up to 6 L when she came into the emergency room. On baseline oxygen currently - (5) Acute on chronic respiratory failure with hypoxia and hypercapnia: Code(s): J96.21 - Acute and chronic respiratory failure with hypoxia; J96.22 - Acute and chronic respiratory failure with hypercapnia Status: Acute Assessment and Plan: Now at baseline oxygen resolved Plan Right pleural effusion Patient declined thoracentesis Continue diuretics monitor Jil on CKD likely from diuresis Changed IV lasix to PO 40mg bid per cards cr 1.95 from 1.29 monitor DVT prophylaxis on Sq Lovenox Discharge pending control of Afib Subjective Date/time seen: 05/29/25 12:33 Interval history: Comfortable at bedside and declined SRIDEVI/DCCV scheduled for today HR still evelated Review of Systems Constitutional: Constitutional: Reports as per HPI and Reports no additional constitutional complaints Eyes: Eyes: Reports as per HPI and Reports no additional eye complaints ENT: Reports system reviewed and no additional complaints, except as documented and Reports Normal hearing present Cardiovascular: Cardiovascular: Reports no additional cardiovascular complaints Respiratory: Respiratory: Reports as per HPI and Reports no additional respiratory complaints Gastrointestinal: Gastrointestinal: Reports as per HPI and Reports no additional gastrointestinal complaints Genitourinary: Genitourinary: Reports no additional female genitourinary complaints Musculoskeletal: Musculoskeletal: Reports no additional musculoskeletal complaints Integumentary/Breasts: Skin/Breast: Reports system reviewed and no additional complaints, except as docu Neurologic: Reports system reviewed and no additional complaints, except as documented and Reports Normal hearing present Psychiatric: Psychiatric: Reports no additional psychiatric complaints and Reports as per HPI Hematologic/Lymphatic: Hematologic/Lymphatic: Reports no additional hematologic/lymphatic complaints Allergic/Immunologic: Allergic/Immunologic: Reports no additional allergic/immunologic complaints Exam Const: General: cooperative, comfortable, no acute distress, well developed, awake and Physically active Orientation/consciousness: oriented to person, oriented to place, oriented to time and patient oriented x3 Limitations: no limitations HENMT: Head: normal to inspection, No palpable skull fracture present, normocephalic and atraumatic Eyes: General: appearance normal, both eyes and all related structures Alignment and Position: alignment normal Periorbital: periorbital findings normal Eyelids: eyelids normal Pupils: Equal, round and reactive pupils present Neck: Neck: normal visual inspection, full ROM, no lymphadenopathy, trachea midline and supple Chest: Chest palpation & inspection: normal inspection of the chest Resp: Effort & Inspection: normal respiratory effort Auscultation: clear to auscultation bilaterally Percussion: percussion normal Cardio: Palpation: normal PMI Rate: regular rate and tachycardic Rhythm: regular rhythm Heart sounds: S1 normal heart sound present and S2 normal heart sound present Peripheral pulses: Peripheral pulses 2+ throughout GI: Inspection: normal to inspection Auscultation: normal bowel sounds Rectal Exam: deferred : General: Yes no CVA tenderness Back/Spine/Pelvis: Back: no CVA tenderness Cervical Spine: cervical ROM normal Skin: General skin exam: normal color Lesions: no lesions Rashes: no rashes Trauma: no lacerations or abrasions Wounds: no wounds Hair: normal Nails: normal Neuro: General: oriented to person, oriented to place, oriented to time and patient oriented x3 Cranial nerves: Yes Equal, round and reactive pupils present and Yes Normal hearing present Cognition (Neuro): normal cognition Speech: normal speech Gait exam (Neuro): Normal gait present Motor exam (neuro): 5/5 motor strength present throughout Sensory Exam: normal sensation Extrem: General: normal to inspection Right upper extremity: normal to inspection and shoulder/upper arm Left upper extremity: normal to inspection and shoulder/upper arm Other: 3+ pitting edema bilaterally Psych: Appearance: grossly normal Mental Status: mental status grossly normal Speech and movement: Normal speech and movement present Affect: normal affect Attitude: cooperative Thought process: Normal thought process present Insight: Good insight present (Psych) Judgement: Good judgement present (Psych) Objective Data Vital Signs Vital Signs: Vital Signs - 24 hr 05/28/25 12:57 05/28/25 12:57 05/28/25 14:00 Temperature Pulse Rate 117 H 117 H 120 H Respiratory Rate Blood Pressure 115/68 Pulse Oximetry Oxygen Delivery Oxygen Flow Rate Fraction of Inspired Oxygen 05/28/25 14:00 05/28/25 14:00 05/28/25 16:00 Temperature 98 F Pulse Rate 120 H 118 H Respiratory Rate 20 Blood Pressure 94/55 L 94/55 L 102/59 L Pulse Oximetry 94 Oxygen Delivery Oxygen Flow Rate Fraction of Inspired Oxygen 05/28/25 16:00 05/28/25 16:00 05/28/25 16:00 Temperature Pulse Rate 118 H 119 H Respiratory Rate Blood Pressure 102/59 L Pulse Oximetry 94 Oxygen Delivery Nasal Cannula Oxygen Flow Rate 4 Fraction of Inspired Oxygen 05/28/25 18:00 05/28/25 18:00 05/28/25 18:06 Temperature Pulse Rate 101 H 101 H 101 H Respiratory Rate Blood Pressure 99/63 L 99/63 L Pulse Oximetry Oxygen Delivery Oxygen Flow Rate Fraction of Inspired Oxygen 05/28/25 19:46 05/28/25 19:56 05/28/25 19:57 Temperature 98.0 F Pulse Rate 118 H 115 H 116 H Respiratory Rate 20 20 16 Blood Pressure 99/54 L Pulse Oximetry 95 94 91 Oxygen Delivery Nasal Cannula Autopap Oxygen Flow Rate 4 Fraction of Inspired Oxygen 36 05/28/25 20:00 05/28/25 20:00 05/28/25 20:00 Temperature Pulse Rate 118 H 109 H Respiratory Rate Blood Pressure 99/54 L Pulse Oximetry 94 Oxygen Delivery Nasal Cannula Oxygen Flow Rate 4 Fraction of Inspired Oxygen 05/28/25 21:58 05/28/25 22:00 05/28/25 22:00 Temperature Pulse Rate 110 H 111 H 110 H Respiratory Rate Blood Pressure 95/49 L 95/49 L Pulse Oximetry Oxygen Delivery Oxygen Flow Rate Fraction of Inspired Oxygen 05/28/25 23:59 05/29/25 00:00 05/29/25 00:00 Temperature 98.1 F Pulse Rate 120 H 119 H 119 H Respiratory Rate 20 Blood Pressure 108/61 108/61 Pulse Oximetry 91 Oxygen Delivery Oxygen Flow Rate Fraction of Inspired Oxygen 05/29/25 00:00 05/29/25 00:00 05/29/25 01:02 Temperature Pulse Rate 119 H 94 Respiratory Rate Blood Pressure 108/61 Pulse Oximetry 91 Oxygen Delivery Nasal Cannula Oxygen Flow Rate 4 Fraction of Inspired Oxygen 05/29/25 01:02 05/29/25 01:20 05/29/25 02:00 Temperature Pulse Rate 94 117 H 95 Respiratory Rate 16 Blood Pressure 108/61 109/66 Pulse Oximetry 92 Oxygen Delivery Autopap Oxygen Flow Rate Fraction of Inspired Oxygen 05/29/25 02:00 05/29/25 02:00 05/29/25 03:59 Temperature 97.9 F Pulse Rate 95 95 118 H Respiratory Rate 19 Blood Pressure 109/66 104/74 Pulse Oximetry 91 Oxygen Delivery Oxygen Flow Rate Fraction of Inspired Oxygen 05/29/25 04:00 05/29/25 04:00 05/29/25 04:00 Temperature Pulse Rate 118 H 100 Respiratory Rate Blood Pressure 104/74 Pulse Oximetry 92 Oxygen Delivery Nasal Cannula Oxygen Flow Rate 4 Fraction of Inspired Oxygen 05/29/25 04:22 05/29/25 05:55 05/29/25 05:55 Temperature Pulse Rate 116 H 116 H Respiratory Rate 16 Blood Pressure 112/84 Pulse Oximetry 92 Oxygen Delivery Autopap Oxygen Flow Rate Fraction of Inspired Oxygen 05/29/25 05:56 05/29/25 06:23 05/29/25 07:49 Temperature 97.7 F Pulse Rate 116 H 115 H 98 Respiratory Rate 18 Blood Pressure 112/84 102/70 Pulse Oximetry 94 Oxygen Delivery Oxygen Flow Rate Fraction of Inspired Oxygen 05/29/25 08:00 05/29/25 08:00 05/29/25 08:09 Temperature Pulse Rate 113 H 113 H 104 H Respiratory Rate 20 20 Blood Pressure Pulse Oximetry 91 Oxygen Delivery Nasal Cannula Oxygen Flow Rate 4 Fraction of Inspired Oxygen 36 05/29/25 08:12 05/29/25 08:28 05/29/25 10:00 Temperature Pulse Rate 115 H 113 H 115 H Respiratory Rate 20 18 Blood Pressure 100/59 L Pulse Oximetry 91 93 Oxygen Delivery Nasal Cannula Oxygen Flow Rate 4 Fraction of Inspired Oxygen 36 05/29/25 10:00 05/29/25 11:26 05/29/25 11:40 Temperature 97.9 F Pulse Rate 115 H 115 H 113 H Respiratory Rate 18 Blood Pressure 101/56 L Pulse Oximetry 94 Oxygen Delivery Oxygen Flow Rate Fraction of Inspired Oxygen 05/29/25 12:00 05/29/25 12:00 Temperature Pulse Rate 114 H 114 H Respiratory Rate 18 Blood Pressure Pulse Oximetry 94 Oxygen Delivery Nasal Cannula Oxygen Flow Rate 4 Fraction of Inspired Oxygen 36 Intake/Output Intake/Output: Intake & Output 05/26/25 05/27/25 05/28/25 05/29/25 23:59 23:59 23:59 23:59 Intake Total 2158.6 1509.1 1293.3 640.8 Output Total 2550 3650 725 675 Balance -391.4 -2140.9 568.3 -34.2 Meds/Results Medications: Active Medications Generic Name Dose Route Start Last Admin Trade Name Freq PRN Reason Stop Dose Admin Amiodarone HCl 200 mg 05/29/25 08:00 05/29/25 08:28 Amiodarone Hcl 200 Mg Tablet PO 200 mg DAILY@0800 COUNT INCLUDES THE [facility] Administration Aspirin 325 mg 05/26/25 09:00 05/29/25 08:28 Aspirin 325 Mg Enteric Tablet PO 325 mg QAM COUNT INCLUDES THE [facility] Administration Azelastine HCl 1 spray 05/26/25 09:00 05/29/25 08:28 Azelastine Hcl Nasal 0.1% 137 Mcg/Spr 30 Ml Btl NASAL 1 spray Q12HR YOIDT Administration Benzonatate 200 mg 05/26/25 03:04 Benzonatate 100 Mg Capsule PO BID PRN cough Diltiazem HCl 240 mg 05/26/25 09:00 05/29/25 08:29 Diltiazem Hcl Cd 240 Mg Cap.24hr PO 240 mg DAILY YODIT Administration Doxycycline Hyclate 100 mg 05/26/25 07:00 05/29/25 06:25 Doxycycline Hyclate 100 Mg Tablet PO 100 mg 0700,1600 YODIT Administration Duloxetine HCl 20 mg 05/26/25 09:00 05/29/25 08:29 Duloxetine Hcl 20 Mg Capsule.Dr PO 20 mg DAILY YODIT Administration Empagliflozin 10 mg 05/26/25 09:00 05/29/25 08:29 Empagliflozin 10 Mg Tablet PO 10 mg DAILY YODIT Administration Ferrous Sulfate 325 mg 05/26/25 09:00 05/29/25 08:29 Ferrous Sulfate 325 Mg Tablet BY MOUTH 325 mg BID YODIT Administration Fluticasone/Umeclidinium/Vilanterol 1 puff 05/26/25 08:00 05/29/25 08:09 Fluticasone/Umeclidin/Vilanter 100-62.5-25 Mcg Ellipta INHALATION 1 puff DAILYRT YODIT Administration Furosemide 40 mg 05/29/25 09:00 05/29/25 08:29 Furosemide 40 Mg Tablet PO 40 mg BID YODIT Administration Losartan Potassium 50 mg 05/26/25 09:00 05/29/25 08:29 Losartan Potassium 50 Mg Tablet PO 50 mg DAILY YODIT Administration Melatonin 5 mg 05/26/25 02:23 Melatonin 5 Mg Tablet PO HS PRN Insomnia Metoprolol Tartrate 100 mg 05/29/25 12:00 05/29/25 11:40 Metoprolol Tartrate 50 Mg Tab PO 100 mg Q12HR YODIT Administration Montelukast Sodium 10 mg 05/26/25 09:00 05/29/25 08:29 Montelukast Sodium 10 Mg Tablet PO 10 mg DAILY YODIT Administration Potassium Chloride 20 meq 05/26/25 09:00 05/29/25 08:29 Potassium Chloride 20 Meq Packet (For Liquid) PO 20 meq DAILY YODIT Administration Quetiapine Fumarate 25 mg 05/26/25 21:00 05/28/25 20:50 Quetiapine Fumarate 25 Mg Tablet PO 25 mg HS YODIT Administration Ropinirole HCl 4 mg 05/26/25 21:00 05/28/25 20:50 Ropinirole Hcl 1 Mg Tablet PO 4 mg HS YODIT Administration Spironolactone 25 mg 05/26/25 09:00 05/29/25 08:28 Spironolactone 25 Mg Tablet PO 25 mg DAILY YODIT Administration Topiramate 200 mg 05/26/25 09:00 05/29/25 08:29 Topiramate 100 Mg Tablet PO 200 mg Q12HR YODIT Administration Trazodone HCl 100 mg 05/26/25 21:00 05/28/25 20:50 Trazodone Hcl 50 Mg Tablet PO 100 mg HS YODIT Administration Radiology Results: ITS Impressions Chest X-Ray 05/25/25 15:22 Impression: CHF. Superimposed probable pneumonia. Left lung nodule. CT chest recommended Chest CTA 05/25/25 18:03 IMPRESSION: 1. No PE. 2. Large right pleural effusion. 3. Interstitial pulmonary edema. 4. Emphysema. Recommend annual screening CT chest. Labs Labs: Laboratory Results - last 24 hr 05/29/25 04:11 WBC 11.7 H RBC 4.23 Hgb 10.3 L Hct 36.1 L MCV 85.3 MCH 24.3 L MCHC 28.5 L RDW 15.7 H Plt Count 244 MPV 9.4 Immature Gran % (Auto) 0.4 Neut % (Auto) 72.1 Lymph % (Auto) 16.2 L [place] % (Auto) 8.9 H Eos % (Auto) 1.9 Baso % (Auto) 0.5 Lymph # (Auto) 1.89 [place] # (Auto) 1.0 H Eos # (Auto) 0.2 Baso # (Auto) 0.1 Abs Immat Gran (auto) 0.05 H Absolute Neuts (auto) 8.4 H Absolute Nucleated RBC 0.000 Band Neutrophils % Not Reportable Nucleated RBC % 0.0 Platelet Estimate Adequate Hypochromasia 1+ Anisocytosis 1+ Ovalocytes Occasional Schistocytes None seen Sodium 135 L Potassium 3.9 Chloride 91 L Carbon Dioxide > 40 H Anion Gap BUN 45 H D Creatinine 1.95 H Estim Creat Clear Calc 34 Estimated GFR 26 L Glucose 115 H Calcium 8.1 L Magnesium 2.1 Total Bilirubin 0.4 AST 15 ALT 12 Alkaline Phosphatase 81 Total Protein 6.9 Albumin 3.6
--- NOTE | 2025-05-29 17:11 | PC.NURSE ---
Report called to nurse on 3rd floor. Denies further questions at this time. Patient will be transported in the bed.
--- NOTE | 2025-05-29 23:06 | PM.EVENT ---
Event Note Event Note Event Note: Nurse asked me if the vital signs could be less frequent as they do not do q2h vital signs on the medical-surgical floor. She reports the vital signs have been stable and the patient has been clinically stable. Q 4 vital signs have been entered, day hospitalist team to further assess and manage.
[2025-05-30] VITALS (13 sets, daily range): BP systolic 99–108; BP diastolic 44–67; PULSE 11–116; RESP 16–24; TEMP 35.2–37.1; O2SAT 90–97
[2025-05-30 05:47] LABS: Hematocrit 37.5 % (37.0-47.0); Hemoglobin 10.9 g/dL (12.0-15.0); Immature Granulocyte Percent A 0.4 % (0-0.5); Lymphocytes Absolute Auto 2.28 K/mm3 (0.9-3.2); Mean Corpuscular HGB Conc 29.1 g/dl (32-36); Mean Corpuscular Hemoglobin 24.8 pg (26-34); Mean Corpuscular Volume 85.2 fl (80-100); Nucleated Red Blood Cells Absolute Auto 0.000 K/mm3 (0.0-0.012); Nucleated Red Blood Cells Perc 0.0 % (0.0-0.2); Platelet Count Result 232 k/mm3 (150-375); Red Blood Count 4.40 M/mm3 (4.2-5.4); White Blood Count 11.0 K/mm3 (4.5-10.0)
[2025-05-30] MEDS: DOXYCYCLINE HYCLATE 100 MG TABLET PO ×2 (06:05→16:30)
[2025-05-30 06:09] LABS: Alanine Aminotransferase 12 U/L (6-35); Albumin Level 3.6 g/dL (3.5-5.1); Alkaline Phosphatase 82 U/L (38-126); Anion Gap 6 mmol/L (4-12); Aspartate Amino Transferase 19 U/L (14-36); Bilirubin,Total 0.8 mg/dL (0.2-1.3); Blood Urea Nitrogen 54 mg/dL (7-17); Calcium 7.9 mg/dL (8.4-10.2); Carbon Dioxide 36 mmol/L (22-30); Chloride 93 mmol/L (98-107); Estimated CRCL calculation 32 ml/min; Estimated Glomerular Filt Rate 23; Glucose 100 mg/dL (65-110); Magnesium 2.2 mg/dL (1.6-2.3); Potassium 4.1 mmol/L (3.4-5.0); Sodium 135 mmol/L (137-145); Total Protein 7.1 g/dL (6.3-8.2)
[2025-05-30 06:37] LABS: Hypochromasia 1+; Schistocytes None Seen
--- NOTE | 2025-05-30 07:56 | ECG_ITS ---
Test Date: 2025-05-30 09:26:26 Measurements Intervals Moran Rate: 99 P: 0 LA: 0 QRS: -21 QRSD: 164 T: 33 QT: 414 QTc: 534 Interpretive Statements ATRIAL FLUTTER/TACHYCARDIA RIGHT BUNDLE BRANCH BLOCK BASELINE ARTIFACT- I, II, AVR ABNORMAL ECG Compared to ECG 05/29/2025 06:46:24 HEART RATE HAS DECREASED Electronically Signed On 05-30-2025 09:36:58 CDT by Hong Meade D.O.
--- NOTE | 2025-05-30 07:56 | PM.PNCARD ---
Progress Note: A&P Assessment and Plan (1) Atrial flutter with rapid ventricular response: Code(s): I48.92 - Unspecified atrial flutter Status: Acute Assessment and Plan: In atrial flutter at 87 bpm. [id number] 3. On Amiodarone and aspirin. On Diltiazem and Metoprolol 100 mg BID for rate control. 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 Discuss SRIDEVI/DC cardioversion on Thursday if she is still in atrial flutter, but she adamantly declines. Change Diltiazem 240 mg daily to 60 mg BID. (2) PAF (paroxysmal atrial fibrillation): Code(s): I48.0 - Paroxysmal atrial fibrillation Status: Acute (3) Acute on chronic congestive heart failure: Code(s): I50.9 - Heart failure, unspecified Status: Chronic Assessment and Plan: Right thoracentesis been ordered by hospitalist. On Lasix 40 mg PO BID and on Spironolactone 25 mg daily, on Jardiance. Due to worsening kidney function, hold Lasix to 40 mg PO BID and Spironolactone 25 mg daily and Jardiance. Check kidney function tomorrow and if OK may d/c home tomorrow. (4) Hypertension: Code(s): I10 - Essential (primary) hypertension Status: Acute Assessment and Plan: Low normal. Subjective Date/time seen: 05/30/25 07:56 Interval history: Reports breathing is improving with diuresis. No chest pains. Exam Const: General: cooperative, healthy appearing, comfortable and obese Nutritional Appearance: obese Orientation/consciousness: oriented to person, oriented to place and oriented to time Resp: Auscultation: no crackles, no rales, no rhonchi, no wheezes and diminished lung sounds Cardio: Rate: regular rate Rhythm: abnormal rhythm Heart sounds: no murmurs Peripheral pulses: dorsalis pedis present Neuro: General: oriented to person, oriented to place and oriented to time Extrem: Right lower extremity: edema Left lower extremity: edema Other: Mild edema of both legs Objective Data Vital Signs Vital Signs: Vital Signs - 24 hr 05/29/25 08:00 05/29/25 08:00 05/29/25 08:09 Temperature Pulse Rate 113 H 113 H 104 H Respiratory Rate 20 20 Blood Pressure Pulse Oximetry 91 Oxygen Delivery Nasal Cannula Oxygen Flow Rate 4 Fraction of Inspired Oxygen 36 05/29/25 08:12 05/29/25 08:28 05/29/25 10:00 Temperature Pulse Rate 115 H 113 H 115 H Respiratory Rate 20 18 Blood Pressure 100/59 L Pulse Oximetry 91 93 Oxygen Delivery Nasal Cannula Oxygen Flow Rate 4 Fraction of Inspired Oxygen 36 05/29/25 10:00 05/29/25 11:26 05/29/25 11:40 Temperature 97.9 F Pulse Rate 115 H 115 H 113 H Respiratory Rate 18 Blood Pressure 101/56 L Pulse Oximetry 94 Oxygen Delivery Oxygen Flow Rate Fraction of Inspired Oxygen 05/29/25 12:00 05/29/25 12:00 05/29/25 14:00 Temperature 98.5 F Pulse Rate 114 H 114 H 93 Respiratory Rate 18 18 Blood Pressure 93/53 L Pulse Oximetry 94 97 Oxygen Delivery Nasal Cannula Oxygen Flow Rate 4 Fraction of Inspired Oxygen 36 05/29/25 16:00 05/29/25 16:00 05/29/25 16:00 Temperature 98 F Pulse Rate 87 79 87 Respiratory Rate 18 18 Blood Pressure 102/60 Pulse Oximetry 98 98 Oxygen Delivery Nasal Cannula Oxygen Flow Rate 4 Fraction of Inspired Oxygen 36 05/29/25 19:32 05/29/25 20:04 05/29/25 20:23 Temperature Pulse Rate 116 H 108 H 115 H Respiratory Rate 20 Blood Pressure Pulse Oximetry 94 Oxygen Delivery Nasal Cannula Oxygen Flow Rate 4 Fraction of Inspired Oxygen 36 05/29/25 20:28 05/29/25 20:36 05/29/25 22:42 Temperature 97.1 F L Pulse Rate 103 H 68 Respiratory Rate 18 17 Blood Pressure 112/76 Pulse Oximetry 97 94 90 Oxygen Delivery Nasal Cannula Autopap Oxygen Flow Rate 4 Fraction of Inspired Oxygen 05/30/25 00:02 05/30/25 00:29 05/30/25 03:18 Temperature 98.6 F Pulse Rate 78 116 H 79 Respiratory Rate 16 24 H Blood Pressure 102/44 L Pulse Oximetry 92 92 Oxygen Delivery Autopap Oxygen Flow Rate Fraction of Inspired Oxygen 05/30/25 04:04 05/30/25 04:49 Temperature 97.2 F L Pulse Rate 75 71 Respiratory Rate 16 Blood Pressure 106/46 L Pulse Oximetry 93 Oxygen Delivery Oxygen Flow Rate Fraction of Inspired Oxygen Intake/Output Intake/Output: Intake & Output 05/27/25 05/28/25 05/29/25 05/30/25 23:59 23:59 23:59 23:59 Intake Total 1509.1 1293.3 1760.8 Output Total 3650 725 1300 375 Balance -2140.9 568.3 460.8 -375 Meds/Results Medications: Active Medications Generic Name Dose Route Start Last Admin Trade Name Freq PRN Reason Stop Dose Admin Amiodarone HCl 200 mg 05/29/25 08:00 05/29/25 08:28 Amiodarone Hcl 200 Mg Tablet PO 200 mg DAILY@0800 YODIT Administration Aspirin 325 mg 05/26/25 09:00 05/29/25 08:28 Aspirin 325 Mg Enteric Tablet PO 325 mg QAM YODIT Administration Azelastine HCl 1 spray 05/26/25 09:00 05/29/25 20:29 Azelastine Hcl Nasal 0.1% 137 Mcg/Spr 30 Ml Btl NASAL 1 spray Q12HR YODIT Administration Benzonatate 200 mg 05/26/25 03:04 Benzonatate 100 Mg Capsule PO BID PRN cough Diltiazem HCl 60 mg 05/30/25 09:00 Diltiazem Hcl 60 Mg Tablet PO Q12HR [facility] Doxycycline Hyclate 100 mg 05/26/25 07:00 05/30/25 06:05 Doxycycline Hyclate 100 Mg Tablet PO 100 mg 0700,1600 YODIT Administration Duloxetine HCl 20 mg 05/26/25 09:00 05/29/25 08:29 Duloxetine Hcl 20 Mg Capsule.Dr PO 20 mg DAILY YODIT Administration Empagliflozin 10 mg 05/26/25 09:00 05/29/25 08:29 Empagliflozin 10 Mg Tablet PO 10 mg DAILY YODIT Administration Ferrous Sulfate 325 mg 05/26/25 09:00 05/29/25 17:15 Ferrous Sulfate 325 Mg Tablet BY MOUTH 325 mg BID YODIT Administration Fluticasone/Umeclidinium/Vilanterol 1 puff 05/26/25 08:00 05/29/25 08:09 Fluticasone/Umeclidin/Vilanter 100-62.5-25 Mcg Ellipta INHALATION 1 puff DAILYRT YODIT Administration Furosemide 40 mg 05/29/25 09:00 05/29/25 17:15 Furosemide 40 Mg Tablet PO 40 mg On Hold: 05/30/25 07:55 BID YODIT Administration Melatonin 5 mg 05/26/25 02:23 Melatonin 5 Mg Tablet PO HS PRN Insomnia Metoprolol Tartrate 100 mg 05/29/25 12:00 05/29/25 20:23 Metoprolol Tartrate 50 Mg Tab PO 100 mg Q12HR YODIT Administration Montelukast Sodium 10 mg 05/26/25 09:00 05/29/25 08:29 Montelukast Sodium 10 Mg Tablet PO 10 mg DAILY YODIT Administration Potassium Chloride 20 meq 05/26/25 09:00 05/29/25 08:29 Potassium Chloride 20 Meq Packet (For Liquid) PO 20 meq DAILY YODIT Administration Quetiapine Fumarate 25 mg 05/26/25 21:00 05/29/25 20:23 Quetiapine Fumarate 25 Mg Tablet PO 25 mg HS YODIT Administration Ropinirole HCl 4 mg 05/26/25 21:00 05/29/25 20:23 Ropinirole Hcl 1 Mg Tablet PO 4 mg HS YODIT Administration Spironolactone 25 mg 05/26/25 09:00 05/29/25 08:28 Spironolactone 25 Mg Tablet PO 25 mg On Hold: 05/30/25 07:00 DAILY YODIT Administration Topiramate 200 mg 05/26/25 09:00 05/29/25 20:22 Topiramate 100 Mg Tablet PO 200 mg Q12HR YODIT Administration Trazodone HCl 100 mg 05/26/25 21:00 05/29/25 20:22 Trazodone Hcl 50 Mg Tablet PO 100 mg HS YODIT Administration Radiology Results: ITS Impressions Chest X-Ray 05/25/25 15:22 Impression: CHF. Superimposed probable pneumonia. Left lung nodule. CT chest recommended Chest CTA 05/25/25 18:03 IMPRESSION: 1. No PE. 2. Large right pleural effusion. 3. Interstitial pulmonary edema. 4. Emphysema. Recommend annual screening CT chest. Labs Labs: Laboratory Results - last 24 hr 05/30/25 05:37 WBC 11.0 H RBC 4.40 Hgb 10.9 L Hct 37.5 MCV 85.2 MCH 24.8 L MCHC 29.1 L RDW 15.7 H Plt Count 232 MPV 9.6 Immature Gran % (Auto) 0.4 Neut % (Auto) 66.7 Lymph % (Auto) 20.7 [place] % (Auto) 9.7 H Eos % (Auto) 2.0 Baso % (Auto) 0.5 Lymph # (Auto) 2.28 [place] # (Auto) 1.1 H Eos # (Auto) 0.2 Baso # (Auto) 0.1 Abs Immat Gran (auto) 0.04 H Absolute Neuts (auto) 7.4 H Absolute Nucleated RBC 0.000 Band Neutrophils % Not Reportable Nucleated RBC % 0.0 Platelet Estimate Adequate Hypochromasia 1+ Schistocytes None seen Sodium 135 L Potassium 4.1 Chloride 93 L Carbon Dioxide 36 H Anion Gap 6 BUN 54 H Creatinine 2.12 H Estim Creat Clear Calc 32 Estimated GFR 23 L Glucose 100 Lactic Acid 0.9 Calcium 7.9 L Magnesium 2.2 Total Bilirubin 0.8 AST 19 ALT 12 Alkaline Phosphatase 82 Total Protein 7.1 Albumin 3.6
[2025-05-30] MEDS: TOPIRAMATE 100 MG TABLET 200 MG PO ×2 (08:17→20:56)
[2025-05-30] MEDS: METOPROLOL TARTRATE 50 MG TAB 100 MG PO ×2 (08:17→20:57)
[2025-05-30] MEDS: FERROUS SULFATE 325 MG TABLET BY MOUTH ×2 (08:18→16:30)
[2025-05-30] MEDS: POTASSIUM CHLORIDE 20 MEQ PACKET (FOR LIQUID) PO (08:18)
[2025-05-30] MEDS: AMIODARONE HCL 200 MG TABLET PO (08:18)
[2025-05-30] MEDS: MONTELUKAST SODIUM 10 MG TABLET PO (08:18)
[2025-05-30] MEDS: ASPIRIN 325 MG ENTERIC TABLET PO (08:18)
--- NOTE | 2025-05-30 09:10 | PM.IMPN ---
Progress Note: A&P Assessment and Plan (1) Acute on chronic congestive heart failure: Code(s): I50.9 - Heart failure, unspecified Status: Chronic Assessment and Plan: ECHo pending continue Lasix 40mg iv bid and Spironolactone cardiology following - (2) Atrial flutter with rapid ventricular response: Code(s): I48.92 - Unspecified atrial flutter Status: Acute Assessment and Plan: -according to her records the patient's heart rate is typically fast -patient is no longer on anticoagulation as she refuses since she has had prior rectus sheath hematoma twice on Eliquis. Angel Vasc score is 3. -S/p Amio infusion - Now on AMio PO 200mg daily, Metoprolol 100mg q12 and Cardizem 240 daily -cards following, HR still in 110s Patient declined SRIDEVI/DCCV today (3) Chronic kidney disease, stage 3: Code(s): N18.30 - Chronic kidney disease, stage 3 unspecified Status: Acute Assessment and Plan: -monitor BMP daily. -patient's creatinine is 1.11 which is improved from her baseline of 1.23-1.38. -BUN is 14 which is improved from her baseline of 23-24. Her estimated creatinine clearance. Is now 63 compared her baseline of 47-52. Her estimated GFR is 49 which has improved from her baseline of 04/22/2042. (4) Chronic obstructive pulmonary disease: Code(s): J44.9 - Chronic obstructive pulmonary disease, unspecified Status: Chronic Assessment and Plan: -the patient is typically on oxygen at 2-3 L at home. She was turned up to 6 L when she came into the emergency room. On baseline oxygen currently - (5) Acute on chronic respiratory failure with hypoxia and hypercapnia: Code(s): J96.21 - Acute and chronic respiratory failure with hypoxia; J96.22 - Acute and chronic respiratory failure with hypercapnia Status: Acute Assessment and Plan: Now at baseline oxygen resolved Plan Right pleural effusion Patient declined thoracentesis Continue diuretics monitor Jil on CKD likely from diuresis Changed IV lasix to PO 40mg bid per cards cr 2 from 1.29 monitor DVT prophylaxis on Sq Lovenox Discharge pending control of Afib Subjective Date/time seen: 05/30/25 09:10 Interval history: No acute events overnight. Patient creatinine today is 2.12. Currently holding furosemide, spironolactone. Continue monitor creatinine. Review of Systems Constitutional: Constitutional: Reports as per HPI and Reports no additional constitutional complaints Eyes: Eyes: Reports as per HPI and Reports no additional eye complaints ENT: Reports system reviewed and no additional complaints, except as documented and Reports Normal hearing present Cardiovascular: Cardiovascular: Reports no additional cardiovascular complaints Respiratory: Respiratory: Reports as per HPI and Reports no additional respiratory complaints Gastrointestinal: Gastrointestinal: Reports as per HPI and Reports no additional gastrointestinal complaints Genitourinary: Genitourinary: Reports no additional female genitourinary complaints Musculoskeletal: Musculoskeletal: Reports no additional musculoskeletal complaints Integumentary/Breasts: Skin/Breast: Reports system reviewed and no additional complaints, except as docu Neurologic: Reports system reviewed and no additional complaints, except as documented and Reports Normal hearing present Psychiatric: Psychiatric: Reports no additional psychiatric complaints and Reports as per HPI Hematologic/Lymphatic: Hematologic/Lymphatic: Reports no additional hematologic/lymphatic complaints Allergic/Immunologic: Allergic/Immunologic: Reports no additional allergic/immunologic complaints Exam Const: General: cooperative, comfortable, no acute distress, well developed, awake and Physically active Orientation/consciousness: oriented to person, oriented to place, oriented to time and patient oriented x3 Limitations: no limitations HENMT: Head: normal to inspection, No palpable skull fracture present, normocephalic and atraumatic Eyes: General: appearance normal, both eyes and all related structures Alignment and Position: alignment normal Periorbital: periorbital findings normal Eyelids: eyelids normal Pupils: Equal, round and reactive pupils present Neck: Neck: normal visual inspection, full ROM, no lymphadenopathy, trachea midline and supple Chest: Chest palpation & inspection: normal inspection of the chest Resp: Effort & Inspection: normal respiratory effort Auscultation: clear to auscultation bilaterally Percussion: percussion normal Cardio: Palpation: normal PMI Rate: regular rate and tachycardic Rhythm: regular rhythm Heart sounds: S1 normal heart sound present and S2 normal heart sound present Peripheral pulses: Peripheral pulses 2+ throughout GI: Inspection: normal to inspection Auscultation: normal bowel sounds Rectal Exam: deferred : General: Yes no CVA tenderness Back/Spine/Pelvis: Back: no CVA tenderness Cervical Spine: cervical ROM normal Skin: General skin exam: normal color Lesions: no lesions Rashes: no rashes Trauma: no lacerations or abrasions Wounds: no wounds Hair: normal Nails: normal Neuro: General: oriented to person, oriented to place, oriented to time and patient oriented x3 Cranial nerves: Yes Equal, round and reactive pupils present and Yes Normal hearing present Cognition (Neuro): normal cognition Speech: normal speech Gait exam (Neuro): Normal gait present Motor exam (neuro): 5/5 motor strength present throughout Sensory Exam: normal sensation Extrem: General: normal to inspection Right upper extremity: normal to inspection and shoulder/upper arm Left upper extremity: normal to inspection and shoulder/upper arm Other: 3+ pitting edema bilaterally Psych: Appearance: grossly normal Mental Status: mental status grossly normal Speech and movement: Normal speech and movement present Affect: normal affect Attitude: cooperative Thought process: Normal thought process present Insight: Good insight present (Psych) Judgement: Good judgement present (Psych) Objective Data Vital Signs Vital Signs: Vital Signs - 24 hr 05/29/25 10:00 05/29/25 10:00 05/29/25 11:26 Temperature 97.9 F Pulse Rate 115 H 115 H 115 H Respiratory Rate 18 18 Blood Pressure 100/59 L 101/56 L Pulse Oximetry 93 94 Oxygen Delivery Oxygen Flow Rate Fraction of Inspired Oxygen 05/29/25 11:40 05/29/25 12:00 05/29/25 12:00 Temperature Pulse Rate 113 H 114 H 114 H Respiratory Rate 18 Blood Pressure Pulse Oximetry 94 Oxygen Delivery Nasal Cannula Oxygen Flow Rate 4 Fraction of Inspired Oxygen 36 05/29/25 14:00 05/29/25 16:00 05/29/25 16:00 Temperature 98.5 F 98 F Pulse Rate 93 87 79 Respiratory Rate 18 18 Blood Pressure 93/53 L 102/60 Pulse Oximetry 97 98 Oxygen Delivery Oxygen Flow Rate Fraction of Inspired Oxygen 05/29/25 16:00 05/29/25 19:32 05/29/25 20:04 Temperature Pulse Rate 87 116 H 108 H Respiratory Rate 18 20 Blood Pressure Pulse Oximetry 98 94 Oxygen Delivery Nasal Cannula Nasal Cannula Oxygen Flow Rate 4 4 Fraction of Inspired Oxygen 36 36 05/29/25 20:23 05/29/25 20:28 05/29/25 20:36 Temperature 97.1 F L Pulse Rate 115 H 103 H Respiratory Rate 18 Blood Pressure 112/76 Pulse Oximetry 97 94 Oxygen Delivery Nasal Cannula Oxygen Flow Rate 4 Fraction of Inspired Oxygen 05/29/25 22:42 05/30/25 00:02 05/30/25 00:29 Temperature 98.6 F Pulse Rate 68 78 116 H Respiratory Rate 17 16 Blood Pressure 102/44 L Pulse Oximetry 90 92 Oxygen Delivery Autopap Oxygen Flow Rate Fraction of Inspired Oxygen 05/30/25 03:18 05/30/25 04:04 05/30/25 04:49 Temperature 97.2 F L Pulse Rate 79 75 71 Respiratory Rate 24 H 16 Blood Pressure 106/46 L Pulse Oximetry 92 93 Oxygen Delivery Autopap Oxygen Flow Rate Fraction of Inspired Oxygen 05/30/25 08:00 05/30/25 08:17 05/30/25 08:18 Temperature 95.3 F L Pulse Rate 115 H 115 H 115 H Respiratory Rate 18 Blood Pressure 101/62 Pulse Oximetry 90 Oxygen Delivery Oxygen Flow Rate Fraction of Inspired Oxygen Intake/Output Intake/Output: Intake & Output 05/27/25 05/28/25 05/29/25 05/30/25 23:59 23:59 23:59 23:59 Intake Total 1509.1 1293.3 1760.8 420 Output Total 3650 725 1300 375 Balance -2140.9 568.3 460.8 45 Meds/Results Medications: Active Medications Generic Name Dose Route Start Last Admin Trade Name Freq PRN Reason Stop Dose Admin Amiodarone HCl 200 mg 05/29/25 08:00 05/30/25 08:18 Amiodarone Hcl 200 Mg Tablet PO 200 mg DAILY@0800 [facility] Administration Aspirin 325 mg 05/26/25 09:00 05/30/25 08:18 Aspirin 325 Mg Enteric Tablet PO 325 mg QAM [facility] Administration Azelastine HCl 1 spray 05/26/25 09:00 05/29/25 20:29 Azelastine Hcl Nasal 0.1% 137 Mcg/Spr 30 Ml Btl NASAL 1 spray Q12HR YODIT Administration Benzonatate 200 mg 05/26/25 03:04 Benzonatate 100 Mg Capsule PO BID PRN cough Diltiazem HCl 30 mg 05/30/25 09:00 05/30/25 08:27 Diltiazem Hcl 30 Mg Tablet PO 30 mg Q12HR YODIT Administration Doxycycline Hyclate 100 mg 05/26/25 07:00 05/30/25 06:05 Doxycycline Hyclate 100 Mg Tablet PO 100 mg 0700,1600 YODIT Administration Duloxetine HCl 20 mg 05/26/25 09:00 05/30/25 08:17 Duloxetine Hcl 20 Mg Capsule.Dr PO 20 mg DAILY YODIT Administration Ferrous Sulfate 325 mg 05/26/25 09:00 05/30/25 08:18 Ferrous Sulfate 325 Mg Tablet BY MOUTH 325 mg BID YODIT Administration Fluticasone/Umeclidinium/Vilanterol 1 puff 05/26/25 08:00 05/29/25 08:09 Fluticasone/Umeclidin/Vilanter 100-62.5-25 Mcg Ellipta INHALATION 1 puff DAILYRT YODIT Administration Furosemide 40 mg 05/29/25 09:00 05/29/25 17:15 Furosemide 40 Mg Tablet PO 40 mg On Hold: 05/30/25 07:55 BID YODIT Administration Melatonin 5 mg 05/26/25 02:23 Melatonin 5 Mg Tablet PO HS PRN Insomnia Metoprolol Tartrate 100 mg 05/29/25 12:00 05/30/25 08:17 Metoprolol Tartrate 50 Mg Tab PO 100 mg Q12HR YODIT Administration Montelukast Sodium 10 mg 05/26/25 09:00 05/30/25 08:18 Montelukast Sodium 10 Mg Tablet PO 10 mg DAILY YODIT Administration Potassium Chloride 20 meq 05/26/25 09:00 05/30/25 08:18 Potassium Chloride 20 Meq Packet (For Liquid) PO 20 meq DAILY YODIT Administration Quetiapine Fumarate 25 mg 05/26/25 21:00 05/29/25 20:23 Quetiapine Fumarate 25 Mg Tablet PO 25 mg HS YODIT Administration Ropinirole HCl 4 mg 05/26/25 21:00 05/29/25 20:23 Ropinirole Hcl 1 Mg Tablet PO 4 mg HS YODIT Administration Spironolactone 25 mg 05/26/25 09:00 05/29/25 08:28 Spironolactone 25 Mg Tablet PO 25 mg On Hold: 05/30/25 07:00 DAILY YODIT Administration Topiramate 200 mg 05/26/25 09:00 05/30/25 08:17 Topiramate 100 Mg Tablet PO 200 mg Q12HR YODIT Administration Trazodone HCl 100 mg 05/26/25 21:00 05/29/25 20:22 Trazodone Hcl 50 Mg Tablet PO 100 mg HS YODIT Administration Radiology Results: ITS Impressions Chest X-Ray 05/25/25 15:22 Impression: CHF. Superimposed probable pneumonia. Left lung nodule. CT chest recommended Chest CTA 05/25/25 18:03 IMPRESSION: 1. No PE. 2. Large right pleural effusion. 3. Interstitial pulmonary edema. 4. Emphysema. Recommend annual screening CT chest. Labs Labs: Laboratory Results - last 24 hr 05/30/25 05:37 WBC 11.0 H RBC 4.40 Hgb 10.9 L Hct 37.5 MCV 85.2 MCH 24.8 L MCHC 29.1 L RDW 15.7 H Plt Count 232 MPV 9.6 Immature Gran % (Auto) 0.4 Neut % (Auto) 66.7 Lymph % (Auto) 20.7 [place] % (Auto) 9.7 H Eos % (Auto) 2.0 Baso % (Auto) 0.5 Lymph # (Auto) 2.28 [place] # (Auto) 1.1 H Eos # (Auto) 0.2 Baso # (Auto) 0.1 Abs Immat Gran (auto) 0.04 H Absolute Neuts (auto) 7.4 H Absolute Nucleated RBC 0.000 Band Neutrophils % Not Reportable Nucleated RBC % 0.0 Platelet Estimate Adequate Hypochromasia 1+ Schistocytes None seen Sodium 135 L Potassium 4.1 Chloride 93 L Carbon Dioxide 36 H Anion Gap 6 BUN 54 H Creatinine 2.12 H Estim Creat Clear Calc 32 Estimated GFR 23 L Glucose 100 Lactic Acid 0.9 Calcium 7.9 L Magnesium 2.2 Total Bilirubin 0.8 AST 19 ALT 12 Alkaline Phosphatase 82 Total Protein 7.1 Albumin 3.6 Hospitalist MIPS Advance Care Plan I have confirmed that the patient's Advanced Care Plan is present, code status is documented, or surrogate decision maker is listed in patient medical record.: Yes Medication Reconciliation I have utilized all available resources to obtain, update and review the patients current medications (includes all prescriptions, OTC, herbals, cannabis, and nutritional supplements).: Yes
[2025-05-30] MEDS: FLUTICASONE/UMECLIDIN/VILANTER 100-62.5-25 MCG ELLIPTA 1 PUFF INHALATION (10:02)
[2025-05-30] MEDS: AZELASTINE HCL NASAL 0.1% 137 MCG/SPR 30 ML BTL 1 SPRAY NASAL ×2 (16:30→20:56)
[2025-05-31] VITALS (11 sets, daily range): BP systolic 100–125; BP diastolic 50–70; PULSE 75–118; RESP 17–20; TEMP 35.8–37.2; O2SAT 91–99
--- NOTE | 2025-05-31 06:08 | ECG_ITS ---
Test Date: 2025-05-31 08:17:01 Measurements Intervals [place] Rate: 117 P: 0 AR: 0 QRS: 15 QRSD: 163 T: 32 QT: 348 QTc: 486 Interpretive Statements ATRIAL FLUTTER/TACHYCARDIA WITH RAPID VENTRICULAR RESPONSE RIGHT BUNDLE BRANCH BLOCK ABNORMAL ECG Compared to ECG 05/30/2025 09:26:26 HEART RATE HAS INCREASED Electronically Signed On 05-31-2025 08:21:12 CDT by Hong Meade D.O.
[2025-05-31] MEDS: DOXYCYCLINE HYCLATE 100 MG TABLET PO ×2 (06:14→16:23)
[2025-05-31 06:56] LABS: Anion Gap 6 mmol/L (4-12); Blood Urea Nitrogen 45 mg/dL (7-17); Calcium 8.4 mg/dL (8.4-10.2); Carbon Dioxide 36 mmol/L (22-30); Chloride 94 mmol/L (98-107); Estimated CRCL calculation 37 ml/min; Estimated Glomerular Filt Rate 28; Glucose 100 mg/dL (65-110); Potassium 4.1 mmol/L (3.4-5.0); Sodium 136 mmol/L (137-145)
--- NOTE | 2025-05-31 08:01 | PM.PNCARD ---
Progress Note: A&P Assessment and Plan (1) Atrial flutter with rapid ventricular response: Code(s): I48.92 - Unspecified atrial flutter Status: Acute Assessment and Plan: In atrial flutter at 92 bpm. [id number] 3. On Amiodarone and aspirin. On Diltiazem and Metoprolol 100 mg BID for rate control. 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 Discussed SRIDEVI/DC cardioversion on Thursday if she is still in atrial flutter, but she adamantly declined. Decreased Diltiazem 30 mg BID. (2) PAF (paroxysmal atrial fibrillation): Code(s): I48.0 - Paroxysmal atrial fibrillation Status: Acute (3) Acute on chronic congestive heart failure: Code(s): I50.9 - Heart failure, unspecified Status: Chronic Assessment and Plan: Right thoracentesis been ordered by hospitalist. On Lasix 40 mg PO BID and on Spironolactone 25 mg daily, on Jardiance. Due to worsening kidney function, hold Lasix to 40 mg PO BID and Spironolactone 25 mg daily and Jardiance. Resume Lasix 20 mg PO daily. Monitor kidney function and if improving tomorrow, then may d/c home. (4) Hypertension: Code(s): I10 - Essential (primary) hypertension Status: Acute Assessment and Plan: Low normal. Subjective Date/time seen: 05/31/25 08:01 Interval history: Reports breathing is improving with diuresis. No chest pains. Exam Const: General: cooperative, healthy appearing, comfortable and obese Nutritional Appearance: obese Orientation/consciousness: oriented to person, oriented to place and oriented to time Resp: Auscultation: no crackles, no rales, no rhonchi, no wheezes and diminished lung sounds Cardio: Rate: regular rate Rhythm: abnormal rhythm Heart sounds: no murmurs Peripheral pulses: dorsalis pedis present Neuro: General: oriented to person, oriented to place and oriented to time Extrem: Right lower extremity: edema Left lower extremity: edema Other: Mild-mod edema of both legs Objective Data Vital Signs Vital Signs: Vital Signs - 24 hr 05/30/25 08:17 05/30/25 08:18 05/30/25 10:03 Temperature Pulse Rate 115 H 115 H Respiratory Rate Blood Pressure Pulse Oximetry 96 Oxygen Delivery Nasal Cannula Oxygen Flow Rate 4 Fraction of Inspired Oxygen 05/30/25 12:00 05/30/25 12:00 05/30/25 16:00 Temperature 98.8 F 97.6 F Pulse Rate 88 11 L 116 H Respiratory Rate 18 20 Blood Pressure 99/67 L 108/65 Pulse Oximetry 96 97 Oxygen Delivery Oxygen Flow Rate Fraction of Inspired Oxygen 05/30/25 16:00 05/30/25 20:00 05/30/25 20:00 Temperature 97 F L Pulse Rate 114 H 110 H 115 H Respiratory Rate 20 20 Blood Pressure 108/65 Pulse Oximetry 96 96 Oxygen Delivery Nasal Cannula Oxygen Flow Rate 4 Fraction of Inspired Oxygen 36 05/30/25 20:00 05/30/25 20:57 05/31/25 00:00 Temperature Pulse Rate 115 H 115 H 108 H Respiratory Rate Blood Pressure Pulse Oximetry Oxygen Delivery Oxygen Flow Rate Fraction of Inspired Oxygen 05/31/25 00:00 05/31/25 03:53 05/31/25 04:00 Temperature 98.9 F 98.5 F Pulse Rate 75 79 95 Respiratory Rate 20 20 Blood Pressure 100/50 L 100/60 Pulse Oximetry 94 99 Oxygen Delivery Oxygen Flow Rate Fraction of Inspired Oxygen Intake/Output Intake/Output: Intake & Output 05/28/25 05/29/25 05/30/25 05/31/25 23:59 23:59 23:59 23:59 Intake Total 1293.3 1760.8 1450 150 Output Total 725 1300 1375 300 Balance 568.3 460.8 75 -150 Meds/Results Medications: Active Medications Generic Name Dose Route Start Last Admin Trade Name Freq PRN Reason Stop Dose Admin Amiodarone HCl 200 mg 05/29/25 08:00 05/30/25 08:18 Amiodarone Hcl 200 Mg Tablet PO 200 mg DAILY@0800 [facility] Administration Aspirin 325 mg 05/26/25 09:00 05/30/25 08:18 Aspirin 325 Mg Enteric Tablet PO 325 mg QAM YODIT Administration Azelastine HCl 1 spray 05/26/25 09:00 05/30/25 20:56 Azelastine Hcl Nasal 0.1% 137 Mcg/Spr 30 Ml Btl NASAL 1 spray Q12HR YODIT Administration Benzonatate 200 mg 05/26/25 03:04 Benzonatate 100 Mg Capsule PO BID PRN cough Diltiazem HCl 30 mg 05/30/25 09:00 05/30/25 20:57 Diltiazem Hcl 30 Mg Tablet PO 30 mg Q12HR YODIT Administration Doxycycline Hyclate 100 mg 05/26/25 07:00 05/31/25 06:14 Doxycycline Hyclate 100 Mg Tablet PO 100 mg 0700,1600 YODIT Administration Duloxetine HCl 20 mg 05/26/25 09:00 05/30/25 08:17 Duloxetine Hcl 20 Mg Capsule.Dr PO 20 mg DAILY YODIT Administration Ferrous Sulfate 325 mg 05/26/25 09:00 05/30/25 16:30 Ferrous Sulfate 325 Mg Tablet BY MOUTH 325 mg BID YODIT Administration Fluticasone/Umeclidinium/Vilanterol 1 puff 05/26/25 08:00 05/30/25 10:02 Fluticasone/Umeclidin/Vilanter 100-62.5-25 Mcg Ellipta INHALATION 1 puff DAILYRT YODIT Administration Furosemide 20 mg 05/31/25 09:00 Furosemide 20 Mg Tablet PO DAILY YODIT Melatonin 5 mg 05/26/25 02:23 Melatonin 5 Mg Tablet PO HS PRN Insomnia Metoprolol Tartrate 100 mg 05/29/25 12:00 05/30/25 20:57 Metoprolol Tartrate 50 Mg Tab PO 100 mg Q12HR YODIT Administration Montelukast Sodium 10 mg 05/26/25 09:00 05/30/25 08:18 Montelukast Sodium 10 Mg Tablet PO 10 mg DAILY YODIT Administration Potassium Chloride 20 meq 05/26/25 09:00 05/30/25 08:18 Potassium Chloride 20 Meq Packet (For Liquid) PO 20 meq DAILY YODIT Administration Quetiapine Fumarate 25 mg 05/26/25 21:00 05/30/25 20:57 Quetiapine Fumarate 25 Mg Tablet PO 25 mg HS YODIT Administration Ropinirole HCl 4 mg 05/26/25 21:00 05/30/25 20:57 Ropinirole Hcl 1 Mg Tablet PO 4 mg HS YODIT Administration Spironolactone 25 mg 05/26/25 09:00 05/29/25 08:28 Spironolactone 25 Mg Tablet PO 25 mg On Hold: 05/30/25 07:00 DAILY YODIT Administration Topiramate 200 mg 05/26/25 09:00 05/30/25 20:56 Topiramate 100 Mg Tablet PO 200 mg Q12HR YODIT Administration Trazodone HCl 100 mg 05/26/25 21:00 05/30/25 20:57 Trazodone Hcl 50 Mg Tablet PO 100 mg HS YODIT Administration Radiology Results: ITS Impressions Chest X-Ray 05/25/25 15:22 Impression: CHF. Superimposed probable pneumonia. Left lung nodule. CT chest recommended Chest CTA 05/25/25 18:03 IMPRESSION: 1. No PE. 2. Large right pleural effusion. 3. Interstitial pulmonary edema. 4. Emphysema. Recommend annual screening CT chest. Labs Labs: Laboratory Results - last 24 hr 05/31/25 06:29 Sodium 136 L Potassium 4.1 Chloride 94 L Carbon Dioxide 36 H Anion Gap 6 BUN 45 H Creatinine 1.82 H Estim Creat Clear Calc 37 Estimated GFR 28 L Glucose 100 Calcium 8.4
[2025-05-31] MEDS: MONTELUKAST SODIUM 10 MG TABLET PO (08:30)
[2025-05-31] MEDS: ASPIRIN 325 MG ENTERIC TABLET PO (08:30)
[2025-05-31] MEDS: FLUTICASONE/UMECLIDIN/VILANTER 100-62.5-25 MCG ELLIPTA 1 PUFF INHALATION (08:34)
[2025-05-31] MEDS: AMIODARONE HCL 200 MG TABLET PO (08:38)
[2025-05-31] MEDS: TOPIRAMATE 100 MG TABLET 200 MG PO ×2 (08:39→20:41)
[2025-05-31] MEDS: FERROUS SULFATE 325 MG TABLET BY MOUTH ×2 (08:39→16:22)
[2025-05-31] MEDS: METOPROLOL TARTRATE 50 MG TAB 100 MG PO ×2 (08:40→20:40)
[2025-05-31] MEDS: FUROSEMIDE 20 MG TABLET PO (08:42)
[2025-05-31] MEDS: POTASSIUM CHLORIDE 20 MEQ PACKET (FOR LIQUID) PO (08:43)
[2025-05-31] MEDS: AZELASTINE HCL NASAL 0.1% 137 MCG/SPR 30 ML BTL 1 SPRAY NASAL ×2 (08:47→20:40)
--- NOTE | 2025-05-31 17:40 | P.PNIM_ITS ---
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 Angel Vasc score is 3. -S/p Amio infusion - Now on AMio PO 200mg daily, Metoprolol 100mg q12 and Cardizem 240 daily -cards following, HR still in 110s Patient declined SRIDEVI/DCCV (3) Chronic kidney disease, stage 3: Code(s): N18.30 - Chronic kidney disease, stage 3 unspecified Status: Acute Assessment and Plan: -monitor BMP daily. -patient's creatinine is 1.1 >> 1.95 > 2.12 >1.82, improved, worsened, then improving again as above meds are held -Daily renal function panel to assess, will follow cardiology recommendations given need for core measures Consider nephrology follow up on discharge (4) Chronic obstructive pulmonary disease: Code(s): J44.9 - Chronic obstructive pulmonary disease, unspecified Status: Chronic Assessment and Plan: -the patient is typically on oxygen at 2-3 L at home. She was turned up to 6 L when she came into the emergency room. On baseline oxygen currently - (5) Acute on chronic respiratory failure with hypoxia and hypercapnia: Code(s): J96.21 - Acute and chronic respiratory failure with hypoxia; J96.22 - Acute and chronic respiratory failure with hypercapnia Status: Acute Assessment and Plan: Now at baseline oxygen resolved Plan Right pleural effusion Patient declined thoracentesis Continue diuretics - now on furosemide 20mg po qd monitor Jil on CKD likely from diuresis cr 2 from 1.29 now 1.82 monitor DVT prophylaxis on Sq Lovenox Discharge pending control of Afib Subjective Date/time seen: 05/31/25 17:40 Interval history: Reports breathing is improving with diuresis. No chest pains. Review of Systems Constitutional: Constitutional: Reports as per HPI and Reports no additional constitutional complaints Eyes: Eyes: Reports as per HPI and Reports no additional eye complaints ENT: Reports system reviewed and no additional complaints, except as documented and Reports Normal hearing present Cardiovascular: Cardiovascular: Reports no additional cardiovascular complaints Respiratory: Respiratory: Reports as per HPI and Reports no additional respiratory complaints Gastrointestinal: Gastrointestinal: Reports as per HPI and Reports no additional gastrointestinal complaints Genitourinary: Genitourinary: Reports no additional female genitourinary compl aints Musculoskeletal: Musculoskeletal: Reports no additional musculoskeletal complaints Integumentary/Breasts: Skin/Breast: Reports system reviewed and no additional complaints, except as docu Neurologic: Reports system reviewed and no additional complaints, except as documented and Reports Normal hearing present Psychiatric: Psychiatric: Reports no additional psychiatric complaints and Reports as per HPI Hematologic/Lymphatic: Hematologic/Lymphatic: Reports no additional hematologic/lymphatic complaints Allergic/Immunologic: Allergic/Immunologic: Reports no additional allergic/immunologic complaints Exam Const: General: cooperative, comfortable, no acute distress, well developed, awake and Physically active Orientation/consciousness: oriented to person, oriented to place, oriented to time and patient oriented x3 Limitations: no limitations HENMT: Head: normal to inspection, No palpable skull fracture present, normocephalic and atraumatic Eyes: General: appearance normal, both eyes and all related structures Ali gnment and Position: alignment normal Periorbital: periorbital findings normal Eyelids: eyelids normal Pupils: Equal, round and reactive pupils present Neck: Neck: normal visual inspection, full ROM, no lymphadenopathy, trachea midline and supple Chest: Chest palpation & inspection: normal inspection of the chest Resp: Effort & Inspection: normal respiratory effort Auscultation: clear to auscultation bilaterally Percussion: percussion normal Cardio: Palpation: normal PMI Rate: regular rate and tachycardic Rhythm: regular rhythm Heart sounds: S1 normal heart sound present and S2 normal heart sound present Peripheral pulses: Peripheral pulses 2+ throughout GI: Inspection: normal to inspection Auscultation: normal bowel sounds Rectal Exam: deferred : General: Yes no CVA tenderness Back/Spine/Pelvis: Back: no CVA tenderness Cervical Spine: cervical ROM normal Skin: General skin exam: normal color Lesions: no lesions Rashes: no rashes Trauma: no lacerations or abrasions Wounds: no wounds Hair: normal Nails: normal Neuro: General: oriented to person, oriented to place, oriented to time and patient oriented x3 Cranial nerves: Yes Equal, round and reactive pupils present and Yes Normal hearing present Cognition (Neuro): normal cognition Speech: normal speech Gait exam (Neuro): Normal gait present Motor exam (neuro): 5/5 motor strength present throughout Sensory Exam: normal sensation Extrem: General: normal to inspection Right upper extremity: normal to inspection and shoulder/upper arm Left upper extremity: normal to inspection and shoulder/upper arm Other: 3+ pitting edema bilaterally Psych: Appearance: grossly normal Mental Status: mental status grossly normal Speech and movement: Normal speech and movement present Affect: normal affect Attitude: cooperative Thought process: Normal thought process present Insight: Good insight present (Psych) Judgement: Good judgement present (Psych) Objective Data Vital Signs Vital Signs: Vital Signs - 24 hr 05/30/25 20:00 05/30/25 20:00 05/30/25 20:00 Temperature 97 F L Pulse Rate 110 H 115 H 115 H Respiratory Rate 20 20 Blood Pressure 108/65 Pulse Oximetry 96 96 Oxygen Delivery Nasal Cannula Oxygen Flow Rate 4 Fraction of Inspired Oxygen 36 05/30/25 20:57 05/31/25 00:00 05/31/25 00:00 Temperature 98.9 F Pulse Rate 115 H 108 H 75 Respiratory Rate 20 Blood Pressure 100/50 L Pulse Oximetry 94 Oxygen Delivery Oxygen Flow Rate Fraction of Inspired Oxygen 05/31/25 03:53 05/31/25 04:00 05/31/25 08:00 Temperature 98.5 F Pulse Rate 79 95 Respiratory Rate 20 Blood Pressure 100/60 Pulse Oximetry 99 91 Oxygen Delivery Nasal Cannula Oxygen Flow Rate 4 Fraction of Inspired Oxygen 05/31/25 08:00 05/31/25 08:00 05/31/25 08:35 Temperature 97.6 F Pulse Rate 108 H 112 H 82 Respiratory Rate 18 20 Blood Pressure 123/65 Pulse Oximetry 91 94 Oxygen Delivery Nasal Cannula Oxygen Flow Rate 4 Fraction of Inspired Oxygen 05/31/25 08:35 05/31/25 12:00 05/31/25 12:00 Temperature 97.2 F L Pulse Rate 82 118 H 100 Respiratory Rate 20 18 Blood Pressure 125/70 Pulse Oximetry 98 Oxygen Delivery Oxygen Flow Rate Fraction of Inspired Oxygen Intake/Output Intake/Output: Intake & Output 05/28/25 05/29/25 05/30/25 05/31/25 23:59 23:59 23:59 23:59 Intake Total 1293.3 1760.8 1450 630 Output Total 725 1300 1375 300 Balance 568.3 460.8 75 330 Meds/Results Medications: Active Medications Generic Name Dose Route Start Last Admin Trade Name Freq PRN Reason Stop Dose Admin Amiodarone HCl 200 mg 05/29/25 08:00 05/31/25 08:38 Amiodarone Hcl 200 Mg Tablet PO 200 mg DAILY@0800 YODIT Administration Aspirin 325 mg 05/26/25 09:00 05/31/25 08:30 Aspirin 325 Mg Enteric Tablet PO 325 mg QAM YODIT Administration Azelastine HCl 1 spray 05/26/25 09:00 05/31/25 08:47 Azelastine Hcl Nasal 0.1% 137 Mcg/Spr 30 Ml Btl NASAL 1 spray Q12HR YODIT Administration Benzonatate 200 mg 05/26/25 03:04 Benzonatate 100 Mg Capsule PO BID PRN cough Diltiazem HCl 30 mg 05/30/25 09:00 05/31/25 08:40 Diltiazem Hcl 30 Mg Tablet PO 30 mg Q12HR YODIT Administration Doxycycline Hyclate 100 mg 05/26/25 07:00 05/31/25 16:23 Doxycycline Hyclate 100 Mg Tablet PO 100 mg 0700,1600 YODIT Administration Duloxetine HCl 20 mg 05/26/25 09:00 05/31/25 08:39 Duloxetine Hcl 20 Mg Capsule.Dr PO 20 mg DAILY YODIT Administration Ferrous Sulfate 325 mg 05/26/25 09:00 05/31/25 16:22 Ferrous Sulfate 325 Mg Tablet BY MOUTH 325 mg BID YODIT Administration Fluticasone/Umeclidinium/Vilanterol 1 puff 05/26/25 08:00 05/31/25 08:34 Fluticasone/Umeclidin/Vilanter 100-62.5-25 Mcg Ellipta INHALATION 1 puff DAILYRT YODIT Administration Furosemide 20 mg 05/31/25 09:00 05/31/25 08:42 Furosemide 20 Mg Tablet PO 20 mg DAILY YODIT Administration Melatonin 5 mg 05/26/25 02:23 Melatonin 5 Mg Tablet PO HS PRN Insomnia Metoprolol Tartrate 100 mg 05/29/25 12:00 05/31/25 08:40 Metoprolol Tartrate 50 Mg Tab PO 100 mg Q12HR YODIT Administration Montelukast Sodium 10 mg 05/26/25 09:00 05/31/25 08:30 Montelukast Sodium 10 Mg Tablet PO 10 mg DAILY YODIT Administration Potassium Chloride 20 meq 05/26/25 09:00 05/31/25 08:43 Potassium Chloride 20 Meq Packet (For Liquid) PO 20 meq DAILY YODIT Administration Quetiapine Fumarate 25 mg 05/26/25 21:00 05/30/25 20:57 Quetiapine Fumarate 25 Mg Tablet PO 25 mg HS YODIT Administration Ropinirole HCl 4 mg 05/26/25 21:00 05/30/25 20:57 Ropinirole Hcl 1 Mg Tablet PO 4 mg HS YODIT Administration Spironolactone 25 mg 05/26/25 09:00 05/29/25 08:28 Spironolactone 25 Mg Tablet PO 25 mg On Hold: 05/30/25 07:00 DAILY YODIT Administration Topiramate 200 mg 05/26/25 09:00 05/31/25 08:39 Topiramate 100 Mg Tablet PO 200 mg Q12HR YODIT Administration Trazodone HCl 100 mg 05/26/25 21:00 05/30/25 20:57 Trazodone Hcl 50 Mg Tablet PO 100 mg HS YODIT Administration Radiology Results: ITS Impressions Chest X-Ray 05/25/25 15:22 Impression: CHF. Superimposed probable pneumonia. Left lung nodule. CT chest recommended Chest CTA 05/25/25 18:03 IMPRESSION: 1. No PE. 2. Large right pleural effusion. 3. Interstitial pulmonary edema. 4. Emphysema. Recommend annual screening CT chest. Labs Labs: Laboratory Results - last 24 hr 05/31/25 06:29 Sodium 136 L Potassium 4.1 Chloride 94 L Carbon Dioxide 36 H Anion Gap 6 BUN 45 H Creatinine 1.82 H Estim Creat Clear Calc 37 Estimated GFR 28 L Glucose 100 Calcium 8.4 Hospitalist [facility] Advance Care Plan I have confirmed that the patient's Advanced Care Plan is present, code status is documented, or surrogate decision maker is listed in patient medical record.: Yes Medication Reconciliation I have utilized all available resources to obtain, update and review the patients current medications (includes all prescriptions, OTC, herbals, cannabis, and nutritional supplements).: Yes
[2025-06-01] VITALS (10 sets, daily range): BP systolic 100–132; BP diastolic 65–78; PULSE 52–117; RESP 16–19; TEMP 35.9–36.2; O2SAT 90–96
[2025-06-01 05:44] LABS: Hematocrit 36.0 % (37.0-47.0); Hemoglobin 10.1 g/dL (12.0-15.0); Immature Granulocyte Percent A 0.5 % (0-0.5); Lymphocytes Absolute Auto 2.17 K/mm3 (0.9-3.2); Mean Corpuscular HGB Conc 28.1 g/dl (32-36); Mean Corpuscular Hemoglobin 24.2 pg (26-34); Mean Corpuscular Volume 86.3 fl (80-100); Nucleated Red Blood Cells Absolute Auto 0.000 K/mm3 (0.0-0.012); Nucleated Red Blood Cells Perc 0.0 % (0.0-0.2); Platelet Count Result 218 k/mm3 (150-375); Red Blood Count 4.17 M/mm3 (4.2-5.4); White Blood Count 10.3 K/mm3 (4.5-10.0)
--- NOTE | 2025-06-01 05:55 | ECG_ITS ---
Test Date: 2025-06-01 07:42:44 Measurements Intervals [place] Rate: 102 P: 257 NH: 262 QRS: 20 QRSD: 158 T: 21 QT: 366 QTc: 478 Interpretive Statements ATRIAL FLUTTER/TACHYCARDIA WITH RAPID VENTRICULAR RESPONSE RIGHT BUNDLE BRANCH BLOCK ABNORMAL ECG Compared to ECG 05/31/2025 08:17:01 HEART RATE HAS DECREASED Electronically Signed On 06-01-2025 07:50:49 CDT by Hong Meade D.O.
[2025-06-01 06:03] LABS: Alanine Aminotransferase 10 U/L (6-35); Albumin Level 3.4 g/dL (3.5-5.1); Alkaline Phosphatase 79 U/L (38-126); Anion Gap 5 mmol/L (4-12); Aspartate Amino Transferase 16 U/L (14-36); Bilirubin,Total 0.6 mg/dL (0.2-1.3); Blood Urea Nitrogen 42 mg/dL (7-17); Calcium 8.7 mg/dL (8.4-10.2); Carbon Dioxide 37 mmol/L (22-30); Chloride 96 mmol/L (98-107); Estimated CRCL calculation 36 ml/min; Estimated Glomerular Filt Rate 27; Glucose 110 mg/dL (65-110); Sodium 138 mmol/L (137-145); Total Protein 6.7 g/dL (6.3-8.2)
[2025-06-01 06:10] LABS: Potassium 4.5 mmol/L (3.4-5.0)
[2025-06-01] MEDS: DOXYCYCLINE HYCLATE 100 MG TABLET PO (06:14)
[2025-06-01 06:21] LABS: Anisocytosis 1+; Hypochromasia 2+; Schistocytes None Seen
--- NOTE | 2025-06-01 07:45 | PM.PNCARD ---
Progress Note: A&P Assessment and Plan (1) Atrial flutter with rapid ventricular response: Code(s): I48.92 - Unspecified atrial flutter Status: Acute Assessment and Plan: In atrial flutter at 95 bpm. [id number] 3. On Amiodarone and aspirin. On Diltiazem 30 mg BID and Metoprolol 100 mg BID for rate control. 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 Discussed SRIDEVI/DC cardioversion on Thursday if she is still in atrial flutter, but she adamantly declined. (2) PAF (paroxysmal atrial fibrillation): Code(s): I48.0 - Paroxysmal atrial fibrillation Status: Acute (3) Acute on chronic congestive heart failure: Code(s): I50.9 - Heart failure, unspecified Status: Chronic Assessment and Plan: Refused thoracentesis. On Lasix 20 mg PO daily. Holding off on Spironolactone 25 mg daily and Jardiance due to renal impairment. Cr 1.88/GFR 27 is stabilizing. Advise to wear compression stockings at home and elevate legs while seated. May d/c home from cardiology standpoint and f/u with me in 2 weeks. (4) Hypertension: Code(s): I10 - Essential (primary) hypertension Status: Acute Assessment and Plan: Stable. Subjective Date/time seen: 06/01/25 07:45 Interval history: Denies chest pain or sob. Exam Const: General: cooperative, healthy appearing, comfortable and obese Nutritional Appearance: obese Orientation/consciousness: oriented to person, oriented to place and oriented to time Resp: Auscultation: no crackles, no rales, no rhonchi, no wheezes and diminished lung sounds Cardio: Rate: regular rate Rhythm: abnormal rhythm Heart sounds: no murmurs Peripheral pulses: dorsalis pedis present Neuro: General: oriented to person, oriented to place and oriented to time Extrem: Right lower extremity: edema Left lower extremity: edema Other: Mild edema of both legs Objective Data Vital Signs Vital Signs: Vital Signs - 24 hr 05/31/25 08:00 05/31/25 08:00 05/31/25 08:00 Temperature 97.6 F Pulse Rate 108 H 112 H Respiratory Rate 18 Blood Pressure 123/65 Pulse Oximetry 91 91 Oxygen Delivery Nasal Cannula Oxygen Flow Rate 4 Fraction of Inspired Oxygen 05/31/25 08:35 05/31/25 08:35 05/31/25 12:00 Temperature Pulse Rate 82 82 118 H Respiratory Rate 20 20 Blood Pressure Pulse Oximetry 94 Oxygen Delivery Nasal Cannula Oxygen Flow Rate 4 Fraction of Inspired Oxygen 05/31/25 12:00 05/31/25 16:00 05/31/25 16:00 Temperature 97.2 F L 98.7 F Pulse Rate 100 102 H 116 H Respiratory Rate 18 18 Blood Pressure 125/70 105/66 Pulse Oximetry 98 97 Oxygen Delivery Oxygen Flow Rate Fraction of Inspired Oxygen 05/31/25 20:00 05/31/25 20:00 05/31/25 20:40 Temperature Pulse Rate 110 H 107 H 110 H Respiratory Rate 18 Blood Pressure Pulse Oximetry 97 Oxygen Delivery Nasal Cannula Oxygen Flow Rate 4 Fraction of Inspired Oxygen 36 05/31/25 21:25 05/31/25 22:25 05/31/25 22:25 Temperature 96.5 F L Pulse Rate 114 H 106 H 106 H Respiratory Rate 17 17 17 Blood Pressure 104/69 Pulse Oximetry 97 96 96 Oxygen Delivery Autopap CPAP Oxygen Flow Rate 4 Fraction of Inspired Oxygen 06/01/25 00:00 06/01/25 01:03 06/01/25 02:00 Temperature 96.6 F L Pulse Rate 87 116 H Respiratory Rate 17 16 Blood Pressure 132/74 Pulse Oximetry 96 Oxygen Delivery Autopap Oxygen Flow Rate Fraction of Inspired Oxygen 06/01/25 04:00 06/01/25 06:05 Temperature 96.6 F L Pulse Rate 81 52 L Respiratory Rate 18 Blood Pressure 100/78 Pulse Oximetry 90 Oxygen Delivery Oxygen Flow Rate Fraction of Inspired Oxygen Intake/Output Intake/Output: Intake & Output 05/29/25 05/30/25 05/31/25 06/01/25 23:59 23:59 23:59 23:59 Intake Total 1760.8 1450 870 Output Total 1300 1375 1500 300 Balance 460.8 11 -513 -300 Meds/Results Medications: Active Medications Generic Name Dose Route Start Last Admin Trade Name Freq PRN Reason Stop Dose Admin Amiodarone HCl 200 mg 05/29/25 08:00 05/31/25 08:38 Amiodarone Hcl 200 Mg Tablet PO 200 mg DAILY@0800 YODIT Administration Aspirin 325 mg 05/26/25 09:00 05/31/25 08:30 Aspirin 325 Mg Enteric Tablet PO 325 mg QAM YODIT Administration Azelastine HCl 1 spray 05/26/25 09:00 05/31/25 20:40 Azelastine Hcl Nasal 0.1% 137 Mcg/Spr 30 Ml Btl NASAL 1 spray Q12HR OYDIT Administration Benzonatate 200 mg 05/26/25 03:04 Benzonatate 100 Mg Capsule PO BID PRN cough Diltiazem HCl 30 mg 05/30/25 09:00 05/31/25 20:41 Diltiazem Hcl 30 Mg Tablet PO 30 mg Q12HR YODIT Administration Doxycycline Hyclate 100 mg 05/26/25 07:00 06/01/25 06:14 Doxycycline Hyclate 100 Mg Tablet PO 100 mg 0700,1600 YODIT Administration Duloxetine HCl 20 mg 05/26/25 09:00 05/31/25 08:39 Duloxetine Hcl 20 Mg Capsule.Dr PO 20 mg DAILY YODIT Administration Ferrous Sulfate 325 mg 05/26/25 09:00 05/31/25 16:22 Ferrous Sulfate 325 Mg Tablet BY MOUTH 325 mg BID YODIT Administration Fluticasone/Umeclidinium/Vilanterol 1 puff 05/26/25 08:00 05/31/25 08:34 Fluticasone/Umeclidin/Vilanter 100-62.5-25 Mcg Ellipta INHALATION 1 puff DAILYRT YODIT Administration Furosemide 20 mg 05/31/25 09:00 05/31/25 08:42 Furosemide 20 Mg Tablet PO 20 mg DAILY YODIT Administration Melatonin 5 mg 05/26/25 02:23 Melatonin 5 Mg Tablet PO HS PRN Insomnia Metoprolol Tartrate 100 mg 05/29/25 12:00 05/31/25 20:40 Metoprolol Tartrate 50 Mg Tab PO 100 mg Q12HR YODIT Administration Montelukast Sodium 10 mg 05/26/25 09:00 05/31/25 08:30 Montelukast Sodium 10 Mg Tablet PO 10 mg DAILY YODIT Administration Potassium Chloride 20 meq 05/26/25 09:00 05/31/25 08:43 Potassium Chloride 20 Meq Packet (For Liquid) PO 20 meq DAILY YODIT Administration Quetiapine Fumarate 25 mg 05/26/25 21:00 05/31/25 20:41 Quetiapine Fumarate 25 Mg Tablet PO 25 mg HS YODIT Administration Ropinirole HCl 4 mg 05/26/25 21:00 05/31/25 20:41 Ropinirole Hcl 1 Mg Tablet PO 4 mg HS YODIT Administration Spironolactone 25 mg 05/26/25 09:00 05/29/25 08:28 Spironolactone 25 Mg Tablet PO 25 mg On Hold: 05/30/25 07:00 DAILY YODIT Administration Topiramate 200 mg 05/26/25 09:00 05/31/25 20:41 Topiramate 100 Mg Tablet PO 200 mg Q12HR YODIT Administration Trazodone HCl 100 mg 05/26/25 21:00 05/31/25 20:41 Trazodone Hcl 50 Mg Tablet PO 100 mg HS YODIT Administration Radiology Results: ITS Impressions Chest X-Ray 05/25/25 15:22 Impression: CHF. Superimposed probable pneumonia. Left lung nodule. CT chest recommended Chest CTA 05/25/25 18:03 IMPRESSION: 1. No PE. 2. Large right pleural effusion. 3. Interstitial pulmonary edema. 4. Emphysema. Recommend annual screening CT chest. Labs Labs: Laboratory Results - last 24 hr 06/01/25 05:21 WBC 10.3 H RBC 4.17 L Hgb 10.1 L Hct 36.0 L MCV 86.3 MCH 24.2 L MCHC 28.1 L RDW 16.0 H Plt Count 218 MPV 9.5 Immature Gran % (Auto) 0.5 Neut % (Auto) 64.7 Lymph % (Auto) 21.0 [place] % (Auto) 11.0 H Eos % (Auto) 2.1 Baso % (Auto) 0.7 Lymph # (Auto) 2.17 [place] # (Auto) 1.1 H Eos # (Auto) 0.2 Baso # (Auto) 0.1 Abs Immat Gran (auto) 0.05 H Absolute Neuts (auto) 6.7 Absolute Nucleated RBC 0.000 Band Neutrophils % Not Reportable Nucleated RBC % 0.0 Platelet Estimate Adequate Hypochromasia 2+ Anisocytosis 1+ Schistocytes None seen Sodium 138 Potassium 4.5 Chloride 96 L Carbon Dioxide 37 H Anion Gap 5 BUN 42 H Creatinine 1.88 H Estim Creat Clear Calc 36 Estimated GFR 27 L Glucose 110 Calcium 8.7 Total Bilirubin 0.6 AST 16 ALT 10 Alkaline Phosphatase 79 Total Protein 6.7 Albumin 3.4 L
[2025-06-01] MEDS: FLUTICASONE/UMECLIDIN/VILANTER 100-62.5-25 MCG ELLIPTA 1 PUFF INHALATION (08:08)
[2025-06-01] MEDS: AMIODARONE HCL 200 MG TABLET PO (08:41)
[2025-06-01] MEDS: MONTELUKAST SODIUM 10 MG TABLET PO (08:43)
[2025-06-01] MEDS: FUROSEMIDE 20 MG TABLET PO (08:44)
[2025-06-01] MEDS: ASPIRIN 325 MG ENTERIC TABLET PO (08:45)
[2025-06-01] MEDS: TOPIRAMATE 100 MG TABLET 200 MG PO (08:45)
[2025-06-01] MEDS: POTASSIUM CHLORIDE 20 MEQ PACKET (FOR LIQUID) PO (08:46)
[2025-06-01] MEDS: AZELASTINE HCL NASAL 0.1% 137 MCG/SPR 30 ML BTL 1 SPRAY NASAL (09:30)
[2025-06-01] MEDS: FERROUS SULFATE 325 MG TABLET BY MOUTH (09:30)
--- NOTE | 2025-06-01 10:56 | PCNWS ---
Weekly nutritional screen. Patient is tolerating current Heart Healthy diet with adequate intake, 100% all meals. Fluid restriction 1600 ml/d. No weight loss reported. No nutritional needs at this time.
--- NOTE | 2025-06-01 12:24 | P.DS_ITS ---
DS: Admitting Diagnosis Discharge Date 06/01/25 Admitting Diagnosis CHF Exacerbation DS: Discharge Diagnosis Discharge Diagnosis (1) Acute on chronic congestive heart failure: Code(s): I50.9 - Heart failure, unspecified Status: Chronic Assessment and Plan: continue Lasix 20mg po qd Spironolactone and Jardiance remains on hold (2) Atrial flutter with rapid ventricular response: Code(s): I48.92 - Unspecified atrial flutter Status: Acute Assessment and Plan: -according to her records the patient's heart rate is typically fast -patient is no longer on anticoagulation as she declines since she has had prior rectus sheath hematoma twice on Eliquis. Angel Vasc score is 3. -S/p Amio infusion - Now on AMio PO 200mg daily, Metoprolol 100mg q12 and Cardizem 240 daily -cards following, HR still in 110s Patient declined AMRIK/DCCV Follow-up with cardiology in 2 weeks after discharge (3) Chronic kidney disease, stage 3: Code(s): N18.30 - Chronic kidney disease, stage 3 unspecified Status: Acute Assessment and Plan: -monitor BMP daily. -patient's creatinine is 1.1 >> 1.95 > 2.12 >1.82, improved, worsened, then improving again as above meds are held Nephrology follow up on discharge (4) Chronic obstructive pulmonary disease: Code(s): J44.9 - Chronic obstructive pulmonary disease, unspecified Status: Chronic Assessment and Plan: -the patient is typically on oxygen at 2-3 L at home. She was turned up to 6 L when she came into the emergency room. On baseline oxygen currently - (5) Acute on chronic respiratory failure with hypoxia and hypercapnia: Code(s): J96.21 - Acute and chronic respiratory failure with hypoxia; J96.22 - Acute and chronic respiratory failure with hypercapnia Status: Acute Assessment and Plan: Now at baseline oxygen resolved Plan Right pleural effusion Patient declined thoracentesis Continue diuretics - now on furosemide 20mg po qd monitor Farzaneh on CKD likely from diuresis cr 2 from 1.29 now 1.82 Nephrology follow-up on discharge DVT prophylaxis on Sq Lovenox Discharge pending control of Afib DS: Summary Hospital Course Hospital Course: Patient is a 65-year-old female patient with history of congestive heart failure and atrial fibrillation she was seen by her turbine operator stated that she gets 32 lb in 1 month. To follow the lower extremity edema and shortness of breath with exertion. Also has history of COPD on home oxygen. To sent here from her turbine operator's office for CHF exacerbation. X-ray in the ED shows superimposed possible pneumonia. CT angiogram ruled out PE but a large right pleural effusion was detected and emphysema. Thoracentesis was offered to patient she declined. She was initially started on Lasix 40 mg IV b.i.d. and spironolactone 25 mg daily as well as Jardiance. She was noted to be in atrial flutter and was also started on amiodarone drip. 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 Amrik/cardioversion was offered but she declined as well. Patient developed FARZANEH on CKD during hospitalization, her creatinine peaked to 2.12, now at 1.88 today GFR went from base of 49-27. Spironolactone shortness for held given FARZANEH. She was stopped eventually on the amiodarone drip and transition to oral amiodarone 200 mg daily. Furosemide was transitioned to 20 mg once daily, and monitor her renal function was continued. Currently remain elevated to 1.88 with GFR 271 prior baseline with creatinine 1.27 and GFR of 42 back in December of this year. Patient denies having a field representative/health education. Time Spent with Patient Time attestation: Total time spent providing and/or coordinating discharge services: Exam Const: General: cooperative, comfortable, no acute distress, well developed, awake and Physically active Orientation/consciousness: oriented to person, oriented to place, oriented to time and patient oriented x3 Limitations: no limitations HENMT: Head: normal to inspection, No palpable skull fracture present, normocephalic and atraumatic Eyes: General: appearance normal, both eyes and all related structures Alignment and Position: alignment normal Periorbital: periorbital findings normal Eyelids: eyelids normal Pupils: Equal, round and reactive pupils present Neck: Neck: normal visual inspection, full ROM, no lymphadenopathy, trachea midline and supple Chest: Chest palpation & inspection: normal inspection of the chest Resp: Effort & Inspection: normal respiratory effort Auscultation: clear to auscultation bilaterally Percussion: percussion normal Cardio: Palpation: normal PMI Rate: regular rate and tachycardic Rhythm: regular rhythm Heart sounds: S1 normal heart sound present and S2 normal heart sound present Peripheral pulses: Peripheral pulses 2+ throughout GI: Inspection: normal to inspection Auscultation: normal bowel sounds Rectal Exam: deferred : General: Yes no CVA tenderness Back/Spine/Pelvis: Back: no CVA tenderness Cervical Spine: cervical ROM normal Skin: General skin exam: normal color Lesions: no lesions Rashes: no rashes Trauma: no lacerations or abrasions Wounds: no wounds Hair: normal Nails: normal Neuro: General: oriented to person, oriented to place, oriented to time and patient oriented x3 Cranial nerves: Yes Equal, round and reactive pupils present and Yes Normal hearing present Cognition (Neuro): normal cognition Speech: normal speech Gait exam (Neuro): Normal gait present Motor exam (neuro): 5/5 motor strength present throughout Sensory Exam: normal sensation Extrem: General: normal to inspection Right upper extremity: normal to inspection and shoulder/upper arm Left upper extremity: normal to inspection and shoulder/upper arm Other: 3+ pitting edema bilaterally Psych: Appearance: grossly normal Mental Status: mental status grossly normal Speech and movement: Normal speech and movement present Affect: normal affect Attitude: cooperative Thought process: Normal thought process present Insight: Good insight present (Psych) Judgement: Good judgement present (Psych) DS: Data Data Completed and Pending Pending studies at discharge: Pending at discharge 05/26/25 02:51 Cytology [PTH] Routine Labs on day of discharge: Labs from last 24 hours 06/01/25 05:21 WBC 10.3 H RBC 4.17 L Hgb 10.1 L Hct 36.0 L MCV 86.3 MCH 24.2 L MCHC 28.1 L RDW 16.0 H Plt Count 218 MPV 9.5 Immature Gran % (Auto) 0.5 Neut % (Auto) 64.7 Lymph % (Auto) 21.0 [place] % (Auto) 11.0 H Eos % (Auto) 2.1 Baso % (Auto) 0.7 Lymph # (Auto) 2.17 [place] # (Auto) 1.1 H Eos # (Auto) 0.2 Baso # (Auto) 0.1 Abs Immat Gran (auto) 0.05 H Absolute Neuts (auto) 6.7 Absolute Nucleated RBC 0.000 Band Neutrophils % Not Reportable Nucleated RBC % 0.0 Platelet Estimate Adequate Hypochromasia 2+ Anisocytosis 1+ Schistocytes None seen Sodium 138 Potassium 4.5 Chloride 96 L Carbon Dioxide 37 H Anion Gap 5 BUN 42 H Creatinine 1.88 H Estim Creat Clear Calc 36 Estimated GFR 27 L Glucose 110 Calcium 8.7 Total Bilirubin 0.6 AST 16 ALT 10 Alkaline Phosphatase 79 Total Protein 6.7 Albumin 3.4 L Discharge Plan Discharge Attending physician on discharge: Brett Arenas Oca Consulting providers: Hong Meade Discharging Clinician: Brett Arenas Oca Patient Disposition: Home Activity: as tolerated Diet: heart healthy and renal Patient Instructions: Antibiotic Form, Heart Failure (GEN), Atrial Flutter (GEN), Heart Healthy Diet (GEN) Patient Language: Turkmen Stand Alone Forms: General Discharge Information Follow-up/Referrals: Hong Meade DO [Physician, Cardiology] - 2 Weeks Alec Hernadez MD [Physician, Nephrology] - 1 Week Discharge Medications: New montelukast [Singulair] 10 mg Tablet 10 mg PO DAILY 30 Days Qty: 30 0RF potassium chloride 20 mEq Packet 20 meq PO DAILY 30 Days Qty: 30 0RF aspirin 325 mg Tablet,Delayed Release (Dr/Ec) 325 mg PO QAM 30 Days Qty: 30 0RF metoprolol tartrate 50 mg Tablet 100 mg PO Q12HR 30 Days Qty: 120 0RF Continued benzonatate 200 mg capsule 200 mg PO BID PRN (Reason: cough) Qty: 90 6RF montelukast 10 mg tablet 10 mg PO DAILY 30 Days Qty: 0 0RF omeprazole 40 mg capsule,delayed release(DR/EC) 40 mg PO DAILY 30 Days Qty: 30 0RF ropinirole 4 mg tablet 4 mg PO HS 30 Days Qty: 30 0RF topiramate 100 mg tablet 200 mg PO BID 30 Days Qty: 0 0RF loratadine [Claritin] 10 mg tablet 10 mg PO DAILY 30 Days Qty: 30 6RF duloxetine 20 mg capsule,delayed release(DR/EC) 20 mg PO DAILY 30 Days Qty: 30 0RF amiodarone 200 mg tablet 200 mg PO DAILY 30 Days Qty: 30 5RF azelastine 137 mcg (0.1 %) spray,non-aerosol 1 spray intranasal Q12H 30 Days Qty: 30 5RF Rx Instructions: administer into each nostril fluticasone propionate [Flonase Allergy Relief] 50 mcg/actuation spray,suspension 1 spray intranasal BID 30 Days Qty: 16 5RF Rx Instructions: administer into each nostril furosemide 20 mg Tablet 20 mg PO BID 30 Days Qty: 60 0RF ferrous sulfate 325 mg (65 mg iron) tablet 325 mg PO BID 30 Days Qty: 60 0RF Trelegy Ellipta 100-62.5-25 mcg blister with device 1 inh inhalation DAILY 30 Days Qty: 28 1RF trazodone 100 mg tablet 100 mg PO HS 30 Days Qty: 0 0RF quetiapine 25 mg tablet 25 mg PO HS 30 Days Qty: 30 0RF potassium chloride 20 mEq Packet 20 meq PO DAILY 30 Days Qty: 30 0RF Discontinued doxycycline hyclate 100 mg tablet 100 mg PO BID Qty: 14 0RF diltiazem HCl [Cardizem CD] 240 mg capsule,extended release 24hr 240 mg PO DAILY Qty: 30 5RF spironolactone 25 mg tablet 25 mg PO DAILY melatonin 5 mg Capsule 5 mg PO HS PRN (Reason: Insomnia) loratadine 10 mg Tablet 10 mg PO QAM Qty: 30 0RF Date of admission: 05/26/25 08:05 Primary Care Provider: Ben Golden Admitting Provider: Al Crawford Attending physician on admission: Al Crawford Condition: Serious Hospitalist MIPS Heart Failure (Exclusion) Patient has history of Heart Transplant or Left Ventricular Assistive Device?: No IF YES, STOP HERE Heart Failure (Qualifier) Patient has current or prior documentation of LVEF less than or equal to 40%, or mod/servere depressed LVSF?: No IF NO, STOP HERE
[2025-06-01] MEDS: METOPROLOL TARTRATE 50 MG TAB 100 MG PO (14:06)
== END 2025-06-01 14:55 | disposition home or self-care (01) | DRG 291 ==
LOC: ANHED 18:59 → ANH3MEDSUR 20:40 → ANHIMU 22:51 → ANH3MEDSUR 05-29 17:20
PROVIDERS: Internal Medicine Cardiovascular Disease; Student in an Organized Health Care Education/Training Program; Admitting Provider Internal Medicine; Emergency Provider Emergency Medicine; PCP Internal Medicine; Visit Provider Student in an Organized Health Care Education/Training Program
DX: I13.0 Hypertensive heart and chronic kidney disease with heart failure and stage 1 through stage 4 chronic kidney disease, or unspecified chronic kidney disease (principal); I50.33 Acute on chronic diastolic (congestive) heart failure; J96.21 Acute and chronic respiratory failure with hypoxia; J96.22 Acute and chronic respiratory failure with hypercapnia; J18.9 Pneumonia, unspecified organism; I48.92 Unspecified atrial flutter; J90 Pleural effusion, not elsewhere classified; N17.9 Acute kidney failure, unspecified; J44.0 Chronic obstructive pulmonary disease with (acute) lower respiratory infection; Z53.29 Procedure and treatment not carried out because of patient's decision for other reasons; N18.30 Chronic kidney disease, stage 3 unspecified; K21.9 Gastro-esophageal reflux disease without esophagitis; I48.0 Paroxysmal atrial fibrillation; Z86.73 Personal history of transient ischemic attack (TIA), and cerebral infarction without residual deficits; Z79.01 Long term (current) use of anticoagulants; Z96.652 Presence of left artificial knee joint; Z90.49 Acquired absence of other specified parts of digestive tract; Z87.891 Personal history of nicotine dependence; Z99.81 Dependence on supplemental oxygen
CPT/HCPCS: 36415; 71045; 71275; 80048; 80053; 83605; 83735; 83880; 85025; 85610; 85730; 87040; 93005; 93306; 94640; 96374; 96376; 97110; 97161; 97165; 97530; 97535; 99285; A9270; G0378; J0283; J1938; Q9967

== ENCOUNTER 2025-06-08 20:33 | Inpatient (IN) | payer MEDICARE, MEDICAID, SELFPAY ==
--- NOTE | ~2025-06-08 | US_ITS ---
EXAMINATION: US thoracentesis DATE: 06/09/2025 15:06 INDICATION: Right pleural effusion TECHNIQUE: The procedure and its risks and benefits were discussed with the patient. Potential risks discussed included bleeding, infection, and pneumothorax. The patient understood the risks and agreed to proceed. The skin was prepped and draped in sterile fashion. 1% lidocaine was used for local anes thesia. Under ultrasound guidance, a 5 Fr catheter with trochar was advanced into the right pleural effusion. Fluid was aspirated. The catheter was removed, and a dressing was applied. There were no immediate complications. FINDINGS: Ultrasound images demonstrate a small right pleural effusion and the catheter within the fluid. IMPRESSION: 1. Successful ultrasound-guided thoracentesis yielding 600 mL of tex-colored fluid. Reviewed, dictated and finalized at location A.
--- NOTE | ~2025-06-08 | XR_ITS ---
XR chest 1V portable INDICATION:SOB . REFERENCE: None FINDINGS: A single AP of the chest demonstrates enlarged heart. Bilateral lower lobe infiltrates. There is no evidence of pneumothorax or pleural effusion. IMPRESSION: Bilateral lower lobe infiltrates. Reviewed, dictated and finalized at location S.
--- NOTE | ~2025-06-08 | XR_ITS ---
EXAMINATION: [id number] DATE: 06/09/2025 15:14 INDICATION: Status post right thoracentesis TECHNIQUE: frontal view of the chest was obtained. COMPARISON: Chest radiograph dated 06/08/[address] dated 06/09/2025 FINDINGS: Interval resolution of the previously seen small right pleural effusion. Mild increased initial pattern in the bilateral lower lungs, left and right which could represent mild pulmonary edema, atelectasis or less likely pneumonia. No pneumothorax. The cardiomediastinal silhouette is normal. IMPRESSION: 1. Resolution of prior right pleural effusion with no pneumothorax post thoracentesis. 2. Mild increased initial pattern at the bilateral lung bases and favor mild pulmonary edema and/or atelectasis over pneumonia. Reviewed, dictated and finalized at location A. IMPRESSION: 1. Resolution of prior right pleural effusion with no pneumothorax post thorace ntesis. 2. Mild increased initial pattern at the bilateral lung bases and favor mild pu lmonary edema and/or atelectasis over pneumonia.
--- NOTE | ~2025-06-08 | CT_ITS ---
CTA CHEST CLINICAL HISTORY: sob, recent hospitalization, +dimer . COMPARISON: Chest x-ray hours prior CTA chest 05/25/2025 TECHNIQUE: Helical CTA performed from thoracic inlet to upper abdomen 100 mL Omnipaque 350 Coronal, sagittal reformats. Multiplanar MIPS CT images acquired with automatic exposure control for dose reduction DLP: 1206 mGy-cm FINDINGS: Pulmonary arteries: No PE. Thoracic Aorta: No dissection or aneurysm. Heart/pericardium: Enlarged. Coronary artery calcification. RV/LV ratio: Normal. Lungs/Pleura: Emphysema. Interlobular septal thickening. Large right effusion, associated dependent atelectasis. Tracheobronchial tree: Patent. Nodes: No enlarged nodes. Bones: No acute bony abnormality. Soft tissues: Large left thyroid nodule as before. Visualized upper abdomen: Hepatomegaly. IMPRESSION: 1. No PE. No significant change from 2 weeks prior. 2. Large right pleural effusion, and interstitial pulmonary edema. Reviewed, dictated and finalized at location R.
[2025-06-08 20:34] VITALS: BP 121/70; PULSE 122; RESP 22; TEMP 37.2; O2SAT 96
--- OUTSIDE RECORDS SUMMARY | 2025-06-08 20:35 | XMS_ITS | Clinical Summary ---
Author Organization [facility] Address [address] [place] [address] Care Team Providers Care Medical Imaging Director Name Role Phone Heri Juarez MD Unavailable Lucho Golden MD Primary Care Provider [phone] Allergies No known active allergies Medications furosemide [...] of other vein of right upper extremity (CMS/HCC HHS/HCC),PAD (peripheral artery disease) 20-30 MMHg Compression Stocking [...] (DVT) of right upper extremity, unspecified vein 11/27/2020 Acute deep vein thrombosis ( DVT) of other vein of right upper extremity 10/12/2018 PAD (peripheral artery disease) 10/12/2018 Thrombus 09/15/2018 Jugular vein occlusion 09/14/2018 Family History Relation Status Comments Father Maternal Grandfather Maternal Grandmother Mother Paternal Grandfather Paternal Grandmother Sister 1 Alive Sister 2 Alive Social History Tobacco Use Types Packs/Day Years Used Date Smoking Tobacco: Former Cigarettes Q uit: 2014 Smokeless Tobacco: Never Alcohol Use Standard Drinks/Week Comments No 0 (1 standard drink = 0.6 oz pur e alcohol) [facility] Utilities Answer Date Recorded In the past [...] place to sleep or slept in a half-way (including now)? No 07/13/2023 Comments No Sex and Gender Information Value Date Recorded Sex Assigned at Not on file Legal Sex Female 3:29 PM DIVINITY TEACHER Gender Identity Not on file Sexual Orientation Not on file Occupation Industry Job Start Date Job End Date Not on file Not on file Not on file Not on file Last Filed Vital Signs Vital Sign Reading Time Taken Comments Blood Pressure 154/46 07/20/2023 7:51 AM DIVINITY TEACHER Pulse 94 07/20/2023 7:59 AM DIVINITY TEACHER Temperature 36.8 C (98.2 F) 07/20/2023 7:51 AM DIVINITY TEACHER Respiratory Rate 18 07/19/2023 4:11 AM DIVINITY TEACHER Oxygen Saturation 95% 07/20/2023 7:51 AM DIVINITY TEACHER Inhaled Oxygen Concentration - - Weight 115.8 kg (255 lb 4.7 oz) 07/15/2023 2:53 AM DIVINITY TEACHER Height 165.1 cm (5' 5) 07/13/2023 9:51 PM DIVINITY TEACHER Body Mass Index 42.48 07/13/2023 9:51 PM DIVINITY TEACHER Plan of Treatment Health Maintenance Due Date [...] 2023 COVID-19 Vaccine (1 - season) 2025 Influenza Adult (#1) 2025 Hepatitis C Completed 09/16/2022, 08/25, 09/16/2022, [...] 7:08 PM 09/19/2018 4:55 PM Care Teams Medical Imaging Director Relationship Specialty Start Date End Date Lucho Golden MD [address] [place] [address] PCP - General INTERNAL MEDICINE 07/14/23 Heri Juarez MD Vascular/[facility] INTERNAL MEDICINE 09/21/18
--- OUTSIDE RECORDS SUMMARY | 2025-06-08 20:35 | XMS_ITS | Clinical Summary ---
Author Organization [facility] Address [address] [address] Phone Care Team Providers Care Cashier Greeter Name Role Phone Unavailable Primary Care Provider [...]
--- NOTE | 2025-06-08 21:56 | ECG_ITS ---
Test Date: 2025-06-08 23:22:41 Measurements Intervals [place] Rate: 117 P: 0 ND: 0 QRS: 9 QRSD: 162 T: -46 QT: 346 QTc: 484 Interpretive Statements ATRIAL FLUTTER/TACHYCARDIA WITH RAPID VENTRICULAR RESPONSE RIGHT BUNDLE BRANCH BLOCK BASELINE ARTIFACT- I, II, III, AVR, AVL, AVF ABNORMAL ECG Compared to ECG 06/01/2025 07:42:44 HEART RATE HAS INCREASED Electronically Signed On 06-09-2025 06:34:51 CDT by Hong Meade D.O.
[2025-06-08 23:06] VITALS: BP 134/91; PULSE 118; RESP 17; O2SAT 97
[2025-06-08 23:16] VITALS: PULSE 117; RESP 27; O2SAT 96
[2025-06-08 23:21] VITALS: PULSE 115; O2SAT 93
[2025-06-08 23:24] LABS: Hematocrit 38.2 % (37.0-47.0); Hemoglobin 10.4 g/dL (12.0-15.0); Immature Granulocyte Percent A 0.5 % (0-0.5); Lymphocytes Absolute Auto 1.46 K/mm3 (0.9-3.2); Mean Corpuscular HGB Conc 27.2 g/dl (32-36); Mean Corpuscular Hemoglobin 24.2 pg (26-34); Mean Corpuscular Volume 89.0 fl (80-100); Nucleated Red Blood Cells Absolute Auto 0.000 K/mm3 (0.0-0.012); Nucleated Red Blood Cells Perc 0.0 % (0.0-0.2); Platelet Count Result 314 k/mm3 (150-375); Red Blood Count 4.29 M/mm3 (4.2-5.4); White Blood Count 13.1 K/mm3 (4.5-10.0)
--- OUTSIDE RECORDS SUMMARY | 2025-06-08 23:25 | XMS_ITS | Clinical Summary ---
Author Organization [facility] Address [address] [place] [address] Care Team Providers Care Assistant Plant Manager Name Role Phone Heri Juarez MD Unavailable Lucho Golden MD Primary Care Provider [phone] Allergies No known active allergies Medications furosemide [...] drink = 0.6 oz pur e alcohol) [facility] Utilities Answer Date Recorded In the [...] place to sleep or slept in a mcc (including now)? No 07/13/2023 Comments No Sex and Gender Information Value Date Recorded Sex Assigned at Not on file Legal Sex Female 3:29 PM RETAIL BUSINESS ANALYST Gender Identity Not on file Sexual Orientation Not on file Occupation Industry Job Start Date Job End Date Not on file Not on file Not on file Not on file Last Filed Vital Signs Vital Sign Reading Time Taken Comments Blood Pressure 154/46 07/20/2023 7:51 AM RETAIL BUSINESS ANALYST Pulse 94 07/20/2023 7:59 AM RETAIL BUSINESS ANALYST Temperature 36.8 C (98.2 F) 07/20/2023 7:51 AM RETAIL BUSINESS ANALYST Respiratory Rate 18 07/19/2023 4:11 AM RETAIL BUSINESS ANALYST Oxygen Saturation 95% 07/20/2023 7:51 AM RETAIL BUSINESS ANALYST Inhaled Oxygen Concentration - - Weight 115.8 kg (255 lb 4.7 oz) 07/15/2023 2:53 AM RETAIL BUSINESS ANALYST Height 165.1 cm (5' 5) 07/13/2023 9:51 PM RETAIL BUSINESS ANALYST Body Mass Index 42.48 07/13/2023 9:51 PM RETAIL BUSINESS ANALYST Plan of Treatment Health Maintenance Due Date [...] 7:08 PM 09/19/2018 4:55 PM Care Teams Assistant Plant Manager Relationship Specialty Start Date End Date Lucho Golden MD [address] [place] [address] PCP - General INTERNAL MEDICINE 07/14/23 Heri Juarez MD Vascular/Campus Receptionist INTERNAL MEDICINE 09/21/18
--- OUTSIDE RECORDS SUMMARY | 2025-06-08 23:25 | XMS_ITS | Clinical Summary ---
Author Organization [facility] Address [address] [address] Phone Care Team Providers Care Preparer Samples And Repairs Name Role Phone Unavailable Primary Care Provider [...]
--- OUTSIDE RECORDS SUMMARY | 2025-06-08 23:25 | XMS_ITS | Clinical Summary ---
Author Organization [facility] Address [address] [place] [address] Phone Care Team Providers Care Flooring Installer Name Role Phone Unavailable Primary Care Provider [...] on file Legal Sex Female 10:10 AM PROFESSOR OF COMMUNICATION AND WRITING Gender Identity Not on file Sexual Orientation Not on file Last Filed Vital Signs Vital Sign Reading Time Taken Comments Blood Pressure 116/68 09/24/2022 11:01 AM PROFESSOR OF COMMUNICATION AND WRITING Pulse 96 09/24/2022 11:01 AM PROFESSOR OF COMMUNICATION AND WRITING Temperature 36.3 C (97.4 F) 09/24/2022 11:01 AM PROFESSOR OF COMMUNICATION AND WRITING Respiratory Rate 16 09/24/2022 11:0 1 AM PROFESSOR OF COMMUNICATION AND WRITING Oxygen Saturation 92% 09/24/2022 4:5 5 PM PROFESSOR OF COMMUNICATION AND WRITING Inhaled Oxygen Concentration - - Weight 99.8 kg (220 lb) 09/22/2022 6:00 AM PROFESSOR OF COMMUNICATION AND WRITING bedscale not zeroed Height 167.6 cm (5' 6) 09/17/2022 10:2 8 AM PROFESSOR OF COMMUNICATION AND WRITING Body Mass Index 35.51 09/17/2022 10:28 AM PROFESSOR OF COMMUNICATION AND WRITING Plan of Treatment Health Maintenance Due Date [...] INFLUENZA VACCINE (#1) 2025 Insurance MEDICAID [place] [facility] Advance Directives For more information, please contact: [phone] * Full Code (Latest Code Status on File) Date Activated Date Inactivated Comments 09/11/2022 7:58 PM 09/24/2022 7:43 PM
[2025-06-08 23:37] LABS: Alanine Aminotransferase 14 U/L (6-35); Albumin Level 3.9 g/dL (3.5-5.1); Alkaline Phosphatase 104 U/L (38-126); Anion Gap 3 mmol/L (4-12); Aspartate Amino Transferase 14 U/L (14-36); Bilirubin,Total 0.3 mg/dL (0.2-1.3); Blood Urea Nitrogen 24 mg/dL (7-17); Calcium 8.7 mg/dL (8.4-10.2); Carbon Dioxide 37 mmol/L (22-30); Chloride 99 mmol/L (98-107); Estimated CRCL calculation 46 ml/min; Estimated Glomerular Filt Rate 34; Glucose 132 mg/dL (65-110); Magnesium 2.1 mg/dL (1.6-2.3); Potassium 4.8 mmol/L (3.4-5.0); Sodium 139 mmol/L (137-145); Total Protein 7.6 g/dL (6.3-8.2)
[2025-06-08 23:41] LABS: Anisocytosis 1+; Hypochromasia 1+
[2025-06-08 23:42] LABS: Schistocytes None Seen; Stomatocytes Occasional
--- NOTE | 2025-06-08 23:46 | ED_ITS ---
HPI - SOB/Dyspnea General Chief Complaint: Shortness of Breath/Dyspnea <RED Badillo Last Filed: 06/12/25 09:10> Stated Complaint: flu like symp <RED Badillo Last Filed: 06/12/25 09:10> Time Seen by Provider: 06/08/25 22:58 <RED Badillo Last Filed: 06/12/25 09:10> Source: patient and old records reviewed <RED Badillo Filed: 06/12/25 09:10> Mode of arrival: ambulatory <RED Badillo Filed: 06/12/25 09:10> Limitations: no limitations <RED Badillo Filed: 06/12/25 09:10> History of Present Illness HPI Narrative: Patient is a 65-year-old male, with past medical history of CHF, COPD, chronic hypoxic resp failure on 4L NC, AFIB/aflutter not on anticoagulation, CKD, who presents to the ED with c/o SOB, fatigue. Patient reports she was recently admitted to the hospital here for prolonged period for a CHF exacerbation. She was started on new medications at that time to control her heart rate. She states her heart rate is typically in the 120s to 160s. She is unsure which medication she was started on. Per records, patient appeared stable been started on amiodarone and metoprolol. She states these medications have made her very sleepy. She has had trouble staying awake throughout the day since being started on these medications. She also reports feeling increasingly short of breath. Denies cough, fevers. Denies CP. Does report some ongoing swelling in BLE. <RED aBdillo Last Filed: 06/12/25 09:10> Related Data Allergies/Adverse Reactions: Allergies Allergy/AdvReac Type Severity Reaction Status Date / Time No Known Drug Allergies Allergy Unknown Verified 06/09/25 10:36 <RED Badillo Last Filed: 06/12/25 09:10> Review of Systems 2 Review of Systems: All systems reviewed & are unremarkable except as noted in HPI. <Izabel Porras PA-C - Last Filed: 06/12/25 09:10> All systems reviewed & are unremarkable except as noted in HPI and below < Izabel Porras PA-C - Last Filed: 06/12/25 09:10> [facility] Past Medical History Medical History: Medical History Diastolic dysfunction Echo in August 2022 showed normal LV function with an EF of 60 to 65%, grade 1 diastolic dysfunction, moderate enlarged right ventricular chamber, normal right ventricular systolic function, moderate tricuspid valve regurgitation, and pulmonary hypertension with an estimated PASP of 59 mmHg. Hypoxic respiratory failure Atrial flutter with rapid ventricular response Acute exacerbation of chronic obstructive pulmonary disease C. difficile colitis Renal failure Requiring temporary dialysis and CRRT in 09/15. 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) Congestive heart failure COPD (chronic obstructive pulmonary disease) <Izabel Porras PA-C - Last Filed: 06/12/25 09:10> Surgical History Surgical History: Surgical History History of tonsillectomy and adenoidectomy History of cholecystectomy History of 3 sections History of left knee replacement <Izabel Porras PA-C - Last Filed: 06/12/25 09:10> Family History Family History: Family History Father Hypertension Acute myocardial infarction Sibling Hypertension Mother Family history of heart disease in male family member before age 55 Brother Acute myocardial infarction Father Acute myocardial infarction Other Cerebrovascular accident Family history of cardiovascular disease <Izabel Porras PA-C - Last Filed: 06/12/25 09:10> Social History Social History: Social History Social History: She is from her Sai and they live in separate homes. She has 3 sons with kidney. She is disabled. Surrogate medical decision maker: Sai Shin, Code status: Full code. Smoking packs per day: 3 Smoking cigarettes per day: 60.0 Years smoked: 50 Smoking pack-years: 150.00 Smoking status: Former smoker Tobacco type: cigarettes Second hand tobacco smoke exposure: Yes Smoking end date: 08/23/22 Alcohol intake: never Drinks per week: 0 Substance use: never Substance use type: does not use Do You Feel Safe in your Home?: Yes Lack of Transportation: No Lack of Food: Never True Current Housing: I Have Housing Concerned About Future Housing: No Difficulty Paying Gas/Electric Bills: YES Difficulty Paying for Meds: No Currently Unemployed: No Education: High School Diploma/GED Difficulty w/ Childcare or Family Care: No Living arrangements: with family Additional living arrangements comments: Lives with family in [place]. 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 Spiritual care concerns: No <Izabel Porras PA-C - Last Filed: 06/12/25 09:10> Exam 2 Narrative: GENERAL: Appears older than stated age, morbidly obese with BMI of 48.9, non- toxic, in no acute distress. HEAD: Normocephalic, atraumatic. RESPIRATORY: Airway patent, respirations tachypneic and slightly labored. Decreased lung sounds throughout. Faint expiratory wheezing in all lung paul. Rhonchi throughout bases. CARDIOVASCULAR: Tachycardic with irregular rhythm without murmurs, rubs, or gallops. ABDOMINAL: Soft, nontender, nondistended. Normoactive BS. MUSCULOSKELETAL: Moves all extremities. No gross deformities. Trace peripheral edema. No significant calf tenderness. SKIN: Warm, dry, normal color. NEURO: A&O X3. Speech clear. Cranial nerves II-XII grossly intact. Steady gait. No ataxic movements. PSYCHIATRIC: Appropriate mood and affect. Normal interaction. <Izabel Porras PA-C - Last Filed: 06/12/25 09:10> Course CORRECTIONAL NURSE/PA Physician Supervision This visit was performed by both a physician and an APC. I performed all aspects of the MDM as documented. <Ben Martin MD - Last Filed: 06/09/25 06:35> Vital Signs Vital signs: Vital Signs Temperature 98.9 F 06/08/25 20:34 Pulse Rate 122 H 06/08/25 20:34 Respiratory Rate 22 H 06/08/25 20:34 Blood Pressure 121/70 06/08/25 20:34 Pulse Oximetry 96 06/08/25 20:34 Oxygen Delivery Nasal Cannula 06/08/25 20:34 Oxygen Flow Rate 4 06/08/25 20:34 Temperature 97.5 F L 06/12/25 08:15 Pulse Rate 100 06/12/25 08:15 Respiratory Rate 20 06/12/25 08:15 Blood Pressure 118/65 06/12/25 08:15 Pulse Oximetry 95 06/12/25 08:15 Oxygen Delivery Nasal Cannula 06/11/25 21:30 Oxygen Flow Rate 2 06/11/25 21:30 <Izabel Porras PA-C - Last Filed: 06/12/25 09:10> Vital Signs Temperature 98.9 F 06/08/25 20:34 Pulse Rate 122 H 06/08/25 20:34 Respiratory Rate 22 H 06/08/25 20:34 Blood Pressure 121/70 06/08/25 20:34 Pulse Oximetry 96 06/08/25 20:34 Oxygen Delivery Nasal Cannula 06/08/25 20:34 Oxygen Flow Rate 4 06/08/25 20:34 Temperature 97.5 F L 06/12/25 08:15 Pulse Rate 100 06/12/25 08:15 Respiratory Rate 20 06/12/25 08:15 Blood Pressure 118/65 06/12/25 08:15 Pulse Oximetry 95 06/12/25 08:15 Oxygen Delivery Nasal Cannula 06/11/25 21:30 Oxygen Flow Rate 2 06/11/25 21:30 <Ben Martin MD - Last Filed: 06/09/25 06:35> MDM - SOB/Dyspnea MDM Narrative Medical decision making narrative: Patient presented to ED with shortness breath, fatigue, recent hospitalization for CHF exacerbation. Patient tachycardic on arrival. This does appear fairly chronic for her. She states her heart rate is typically around 120. She has history of AFib/a flutter, but has declined anticoagulation in the past per records. She was recently started on amiodarone and metoprolol after recent admission. She states these medications have been making her extremely fatigued to the point she is having trouble staying awake throughout the day. She is tachypneic here, diffuse rhonchi and wheezing. Oxygen is stable on her home 4 L. She is afebrile. Laboratory studies with leukocytosis of 13.1. H&H is stable. CMP with bicarb of 37. Kidney function is stable. Consistent previous records. Lactic acid within normal range. Mag normal. Viral swabs are negative. EKG with atrial flutter, rate 117, right bundle. Appears fairly consistent to recent EKGs. Troponin undetectable. Patient denying chest pain at this time. BNP is elevated to nearly 3000. Chest x-ray showing bilateral lower lobe infiltrates. D-dimer was elevated at 1.22. CTA of chest was obtained, negative for PE, showing infiltrates/pulmonary edema. ABG obtained and showing CO2 retention with pCO2 of 67.7. PH 7.27. Patient started on BiPAP. Blood cultures obtained. Started on Rocephin, azithromycin, vancomycin for pneumonia with coverage for hospital-acquired pathogens. Given IV Lasix. Given hour long nebulizer treatment. Discussed case with hospitalist, accepted patient for admission. Patient in agreement with plan. < Izabel Porras PA-C - Last Filed: 06/12/25 09:10> Medical Records Attestation: I reviewed the patient's medical records. <RED Badillo Last Filed: 06/12/25 09:10> Lab Data Attestation: I reviewed the patient's lab results. <Izabel Porras PA-C - Last Filed: 06/12/25 09:10> Result diagrams: 06/12/25 03:45 06/12/25 03:45 <RED Badillo Last Filed: 06/12/25 09:10> Labs: Lab Results 06/08/25 06/08/25 06/09/25 Range/Units 23:16 23:37 00:17 WBC 13.1 H (4.5-10.0) K/mm3 RBC 4.29 (4.2-5.4) M/mm3 Hgb 10.4 L (12.0-15.0) g/dL Hct 38.2 (37.0-47.0) % MCV 89.0 (80-100) fl MCH 24.2 L (26-34) pg MCHC 27.2 L (32-36) g/dl RDW 15.7 H (11.5-14.5) % Plt Count 314 (150-375) k/mm3 MPV 9.6 (7.4-10.4) fl Immature Gran % (Auto) 0.5 (0-0.5) % Neut % (Auto) 81.3 H (45.5-73.1) % Lymph % (Auto) 11.2 L (18.3-44.2) % [place] % (Auto) 5.6 (2.6-8.5) % Eos % (Auto) 1.0 (0-4.4) % Baso % (Auto) 0.4 (0.2-1.2) % Lymph # (Auto) 1.46 (0.9-3.2) K/mm3 [place] # (Auto) 0.7 H (0.1-0.6) K/mm3 Eos # (Auto) 0.1 (0-0.3) K/mm3 Baso # (Auto) 0.1 (0.0-0.1) K/mm3 Abs Immat Gran (auto) 0.07 H (0.00-0.031) K/mm3 Absolute Neuts (auto) 10.7 H (1.3-6.7) K/mm3 Absolute Nucleated RBC 0.000 (0.0-0.012) K/mm3 Band Neutrophils % Not Reportable Nucleated RBC % 0.0 (0.0-0.2) % Platelet Estimate Adequate (Adequate) Hypochromasia 1+ Anisocytosis 1+ Stomatocytes Occasional Schistocytes None seen PT 14.0 (11.1-14.7) Seconds INR 1.1 APTT 33.4 (22.3-36.8) Seconds D-Dimer 1.22 H (<0.48) ug/mL Methemoglobin 0.2 (0-1.5) %THb Sodium 139 (137-145) mmol/L Potassium 4.8 (3.4-5.0) mmol/L Chloride 99 (98-107) mmol/L Carbon Dioxide 37 H (22-30) mmol/L Anion Gap 3 L (4-12) mmol/L BUN 24 H D (7-17) mg/dL Creatinine 1.53 H (0.7-1.0) mg/dL Estim Creat Clear Calc 46 ml/min Estimated GFR 34 L (59 - ) Glucose 132 H (65-110) mg/dL Lactic Acid 1.0 (0.7-2.0) mmol/L Calcium 8.7 (8.4-10.2) mg/dL Magnesium 2.1 (1.6-2.3) mg/dL Total Bilirubin 0.3 (0.2-1.3) mg/dL AST 14 (14-36) U/L ALT 14 (6-35) U/L Alkaline Phosphatase 104 (38-126) U/L Troponin I < 0.012 (0.000-0.034) ng/mL NT-Pro-B Natriuret Pep 2960 H (19.9-100) pg/mL Total Protein 7.6 (6.3-8.2) g/dL Albumin 3.9 (3.5-5.1) g/dL Nasal MRSA (PCR) Detected A* (NOT DETECTE) Influenza A (RT-PCR) Negative (Negative) Influenza B (RT-PCR) Negative (Negative) RSV (RT-PCR) Negative (Negative) SARS-CoV-2 RNA (RT-PCR) Negative (Negative) 06/09/25 06/09/25 Range/Units 05:53 08:14 WBC 10.1 H (4.5-10.0) K/mm3 RBC 4.10 L (4.2-5.4) M/mm3 Hgb 10.2 L (12.0-15.0) g/dL Hct 36.4 L (37.0-47.0) % MCV 88.8 (80-100) fl MCH 24.9 L (26-34) pg MCHC 28.0 L (32-36) g/dl RDW 15.8 H (11.5-14.5) % Plt Count 275 (150-375) k/mm3 MPV 9.0 (7.4-10.4) fl Immature Gran % (Auto) (0-0.5) % Neut % (Auto) (45.5-73.1) % Lymph % (Auto) (18.3-44.2) % [place] % (Auto) (2.6-8.5) % Eos % (Auto) (0-4.4) % Baso % (Auto) (0.2-1.2) % Lymph # (Auto) (0.9-3.2) K/mm3 [place] # (Auto) (0.1-0.6) K/mm3 Eos # (Auto) (0-0.3) K/mm3 Baso # (Auto) (0.0-0.1) K/mm3 Abs Immat Gran (auto) (0.00-0.031) K/mm3 Absolute Neuts (auto) (1.3-6.7) K/mm3 Absolute Nucleated RBC (0.0-0.012) K/mm3 Band Neutrophils % Nucleated RBC % (0.0-0.2) % Platelet Estimate (Adequate) Hypochromasia Anisocytosis Stomatocytes Schistocytes PT (11.1-14.7) Seconds INR APTT (22.3-36.8) Seconds D-Dimer (<0.48) ug/mL Methemoglobin (0-1.5) %THb Sodium 140 (137-145) mmol/L Potassium 3.8 (3.4-5.0) mmol/L Chloride 98 (98-107) mmol/L Carbon Dioxide 38 H (22-30) mmol/L Anion Gap 4 (4-12) mmol/L BUN 21 H (7-17) mg/dL Creatinine 1.50 H (0.7-1.0) mg/dL Estim Creat Clear Calc 47 ml/min Estimated GFR 35 L (59 - ) Glucose 110 (65-110) mg/dL Lactic Acid (0.7-2.0) mmol/L Calcium 8.8 (8.4-10.2) mg/dL Magnesium (1.6-2.3) mg/dL Total Bilirubin (0.2-1.3) mg/dL AST (14-36) U/L ALT (6-35) U/L Alkaline Phosphatase (38-126) U/L Troponin I < 0.012 0.013 (0.000-0.034) ng/mL NT-Pro-B Natriuret Pep (19.9-100) pg/mL Total Protein (6.3-8.2) g/dL Albumin (3.5-5.1) g/dL Nasal MRSA (PCR) (NOT DETECTE) Influenza A (RT-PCR) (Negative) Influenza B (RT-PCR) (Negative) RSV (RT-PCR) (Negative) SARS-CoV-2 RNA (RT-PCR) (Negative) <Izabel Porras PA-C - Last Filed: 06/12/25 09:10> Lab Results 06/08/25 06/08/25 06/09/25 Range/Units 23:16 23:37 00:17 WBC 13.1 H (4.5-10.0) K/mm3 RBC 4.29 (4.2-5.4) M/mm3 Hgb 10.4 L (12.0-15.0) g/dL Hct 38.2 (37.0-47.0) % MCV 89.0 (80-100) fl MCH 24.2 L (26-34) pg MCHC 27.2 L (32-36) g/dl RDW 15.7 H (11.5-14.5) % Plt Count 314 (150-375) k/mm3 MPV 9.6 (7.4-10.4) fl Immature Gran % (Auto) 0.5 (0-0.5) % Neut % (Auto) 81.3 H (45.5-73.1) % Lymph % (Auto) 11.2 L (18.3-44.2) % [place] % (Auto) 5.6 (2.6-8.5) % Eos % (Auto) 1.0 (0-4.4) % Baso % (Auto) 0.4 (0.2-1.2) % Lymph # (Auto) 1.46 (0.9-3.2) K/mm3 [place] # (Auto) 0.7 H (0.1-0.6) K/mm3 Eos # (Auto) 0.1 (0-0.3) K/mm3 Baso # (Auto) 0.1 (0.0-0.1) K/mm3 Abs Immat Gran (auto) 0.07 H (0.00-0.031) K/mm3 Absolute Neuts (auto) 10.7 H (1.3-6.7) K/mm3 Absolute Nucleated RBC 0.000 (0.0-0.012) K/mm3 Band Neutrophils % Not Reportable Nucleated RBC % 0.0 (0.0-0.2) % Platelet Estimate Adequate (Adequate) Hypochromasia 1+ Anisocytosis 1+ Stomatocytes Occasional Schistocytes None seen PT 14.0 (11.1-14.7) Seconds INR 1.1 APTT 33.4 (22.3-36.8) Seconds D-Dimer 1.22 H (<0.48) ug/mL Methemoglobin 0.2 (0-1.5) %THb Sodium 139 (137-145) mmol/L Potassium 4.8 (3.4-5.0) mmol/L Chloride 99 (98-107) mmol/L Carbon Dioxide 37 H (22-30) mmol/L Anion Gap 3 L (4-12) mmol/L BUN 24 H D (7-17) mg/dL Creatinine 1.53 H (0.7-1.0) mg/dL Estim Creat Clear Calc 46 ml/min Estimated GFR 34 L (59 - ) Glucose 132 H (65-110) mg/dL Lactic Acid 1.0 (0.7-2.0) mmol/L Calcium 8.7 (8.4-10.2) mg/dL Magnesium 2.1 (1.6-2.3) mg/dL Total Bilirubin 0.3 (0.2-1.3) mg/dL AST 14 (14-36) U/L ALT 14 (6-35) U/L Alkaline Phosphatase 104 (38-126) U/L Troponin I < 0.012 (0.000-0.034) ng/mL NT-Pro-B Natriuret Pep 2960 H (19.9-100) pg/mL Total Protein 7.6 (6.3-8.2) g/dL Albumin 3.9 (3.5-5.1) g/dL Nasal MRSA (PCR) Detected A* (NOT DETECTE) Influenza A (RT-PCR) Negative (Negative) Influenza B (RT-PCR) Negative (Negative) RSV (RT-PCR) Negative (Negative) SARS-CoV-2 RNA (RT-PCR) Negative (Negative) 06/09/25 06/09/25 Range/Units 05:53 08:14 WBC 10.1 H (4.5-10.0) K/mm3 RBC 4.10 L (4.2-5.4) M/mm3 Hgb 10.2 L (12.0-15.0) g/dL Hct 36.4 L (37.0-47.0) % MCV 88.8 (80-100) fl MCH 24.9 L (26-34) pg MCHC 28.0 L (32-36) g/dl RDW 15.8 H (11.5-14.5) % Plt Count 275 (150-375) k/mm3 MPV 9.0 (7.4-10.4) fl Immature Gran % (Auto) (0-0.5) % Neut % (Auto) (45.5-73.1) % Lymph % (Auto) (18.3-44.2) % [place] % (Auto) (2.6-8.5) % Eos % (Auto) (0-4.4) % Baso % (Auto) (0.2-1.2) % Lymph # (Auto) (0.9-3.2) K/mm3 [place] # (Auto) (0.1-0.6) K/mm3 Eos # (Auto) (0-0.3) K/mm3 Baso # (Auto) (0.0-0.1) K/mm3 Abs Immat Gran (auto) (0.00-0.031) K/mm3 Absolute Neuts (auto) (1.3-6.7) K/mm3 Absolute Nucleated RBC (0.0-0.012) K/mm3 Band Neutrophils % Nucleated RBC % (0.0-0.2) % Platelet Estimate (Adequate) Hypochromasia Anisocytosis Stomatocytes Schistocytes PT (11.1-14.7) Seconds INR APTT (22.3-36.8) Seconds D-Dimer (<0.48) ug/mL Methemoglobin (0-1.5) %THb Sodium 140 (137-145) mmol/L Potassium 3.8 (3.4-5.0) mmol/L Chloride 98 (98-107) mmol/L Carbon Dioxide 38 H (22-30) mmol/L Anion Gap 4 (4-12) mmol/L BUN 21 H (7-17) mg/dL Creatinine 1.50 H (0.7-1.0) mg/dL Estim Creat Clear Calc 47 ml/min Estimated GFR 35 L (59 - ) Glucose 110 (65-110) mg/dL Lactic Acid (0.7-2.0) mmol/L Calcium 8.8 (8.4-10.2) mg/dL Magnesium (1.6-2.3) mg/dL Total Bilirubin (0.2-1.3) mg/dL AST (14-36) U/L ALT (6-35) U/L Alkaline Phosphatase (38-126) U/L Troponin I < 0.012 0.013 (0.000-0.034) ng/mL NT-Pro-B Natriuret Pep (19.9-100) pg/mL Total Protein (6.3-8.2) g/dL Albumin (3.5-5.1) g/dL Nasal MRSA (PCR) (NOT DETECTE) Influenza A (RT-PCR) (Negative) Influenza B (RT-PCR) (Negative) RSV (RT-PCR) (Negative) SARS-CoV-2 RNA (RT-PCR) (Negative) <Ben Martin MD - Last Filed: 06/09/25 06:35> ABG Data ABG results: 06/08/25 23:37 Puncture Site Right radial ABG pH 7.278 L* ABG pCO2 67.7 H* ABG pO2 80.7 ABG PO2/FiO2 Ratio 2.24 ABG HCO3 31.0 H ABG O2 Saturation 94.1 L ABG O2 Content 15.3 L ABG Base Excess 2.7 A-a Gradient 97.5 Oxyhemoglobin 94.2 Carboxyhemoglobin 1.1 Reduced Hemoglobin 4.5 Total Hemoglobin 11.5 L O2 Delivery Device Nasal cannula O2 Liters/Min 4.0 FiO2 36 <Izabel Porras PA-C - Last Filed: 06/12/25 09:10> 06/08/25 23:37 Puncture Site Right radial ABG pH 7.278 L* ABG pCO2 67.7 H* ABG pO2 80.7 ABG PO2/FiO2 Ratio 2.24 ABG HCO3 31.0 H ABG O2 Saturation 94.1 L ABG O2 Content 15.3 L ABG Base Excess 2.7 A-a Gradient 97.5 Oxyhemoglobin 94.2 Carboxyhemoglobin 1.1 Reduced Hemoglobin 4.5 Total Hemoglobin 11.5 L O2 Delivery Device Nasal cannula O2 Liters/Min 4.0 FiO2 36 <Ben Martin MD - Last Filed: 06/09/25 06:35> Attestation: I personally reviewed and interpreted this ABG as follows: <Izabel Porras PA-C - Last Filed: 06/12/25 09:10> Imaging Data Attestation: I personally reviewed and interpreted this imaging study as follows: < Izabel Porras PA-C - Last Filed: 06/12/25 09:10> Critical Care Time Critical Care Time Critical Care Time: Yes <Ben Martin MD - Last Filed: 06/09/25 06:35> Total Critical Care Time: 75 <Ben Martin MD - Last Filed: 06/09/25 06:35> Discharge Plan Discharge Clinical Impression: Acute on chronic respiratory failure with hypoxia and hypercapnia, Atrial flutter with rapid ventricular response Pneumonia Qualifiers: Pneumonia type: due to unspecified organism Laterality: bilateral Lung location: lower lobe of lung Qualified Code(s): J18.9 - Pneumonia, unspecified organism Acute exacerbation of CHF (congestive heart failure) Qualifiers: Heart failure type: unspecified Qualified Code(s): I50.9 - Heart failure, unspecified <Izabel Porras PA-C - Last Filed: 06/12/25 09:10> Patient Disposition: Still a Patient <RED Badillo Last Filed: 06/12/25 09:10> Condition: Stable <Izabel Porras PA-C - Last Filed: 06/12/25 09:10>
[2025-06-08 23:47] LABS: Troponin I < 0.012 ng/mL (0.000-0.034)
[2025-06-08 23:48] LABS: Alveolar/Arterial O2 Gradient 97.5 mmHg; Carboxyhemoglobin 1.1 % THb (0-2.0); Fractional Inspired Oxygen 36 %; HCO3 ABG 31.0 mEq/l (22.0-26.0); Methemoglobin ABG 0.2 %THb (0-1.5); Oxygen Content ABG 15.3 %vol (16.0-22.0); Oxygen Saturation ABG 94.1 % (95.0-100.0); PO2 ABG 80.7 mmHg (80.0-100.0); PO2 FiO2 Ratio Arterial Blood 2.24 %; Reduced Hemoglobin 4.5 %THb (0-5.0)
[2025-06-08 23:49] LABS: NT Pro B Type Natriuretic Pept 2960 pg/mL (19.9-100)
[2025-06-08 23:51] LABS: Modified Allen's Test Pass; PCO2 ABG 67.7 mmHg (35.0-45.0); Site Drawn RIGHT RADIAL
[2025-06-08 23:52] LABS: Liters per Minute 4.0 LPM
[2025-06-09] VITALS (31 sets, daily range): BP systolic 91–149; BP diastolic 60–87; PULSE 78–125; RESP 12–26; TEMP 36.7; O2SAT 87–100
[2025-06-09] LABS: INR 1.1; Prothrombin Time 14.0 Seconds (11.1-14.7)
[2025-06-09 00:01] LABS: Partial Thromboplastin Time 33.4 Seconds (22.3-36.8)
[2025-06-09 00:03] LABS: Influenza A QL RT-PCR Negative (Negative); Influenza B QL RT-PCR Negative (Negative); RSV RNA, RT-PCR Negative (Negative); SARS-CoV-2 RNA PCR Negative (Negative)
[2025-06-09] MEDS: IPRATROPIUM BR 0.02% INH SOLN 0.5 MG/2.5 ML VIAL 1.5 MG INHALATION (00:20)
[2025-06-09] MEDS: cefTRIAXone 1 GM in SODIUM CHLORIDE 0.9% IV 50 ML 100 ML IVPB ×2 (00:34→23:24)
[2025-06-09] MEDS: FUROSEMIDE INJ 40 MG/4 ML VIAL IV PUSH ×2 (00:34→17:27)
[2025-06-09] MEDS: AZITHROMYCIN IV 500 MG in SODIUM CHLORIDE 0.9% IV 250 ML IVPB (01:04)
[2025-06-09 01:31] LABS: MRSA (PCR) DETECTED (NOT DETECTE)
[2025-06-09] MEDS: VANCOMYCIN 1,250 MG/NS 250 ML 1,250 MG/250 ML BAG 166.67 MG IVPB ×2 (02:02→03:32)
[2025-06-09 06:38] LABS: Troponin I < 0.012 ng/mL (0.000-0.034)
--- NOTE | 2025-06-09 07:15 | PC.NURSE ---
Assumed care of pt from [facility]. Pt resting.
--- NOTE | 2025-06-09 08:08 | ECG_ITS ---
Test Date: 2025-06-09 08:20:00 Measurements Intervals [place] Rate: 122 P: 0 SC: 0 QRS: 16 QRSD: 160 T: -68 QT: 370 QTc: 528 Interpretive Statements ATRIAL FLUTTER/TACHYCARDIA WITH RAPID VENTRICULAR RESPONSE RIGHT BUNDLE BRANCH BLOCK BASELINE ARTIFACT- I, II, III, AVR, AVL, AVF, V4-V6 ABNORMAL ECG Compared to ECG 06/08/2025 23:22:41 NO SIGNIFICANT CHANGE Electronically Signed On 06-09-2025 10:14:04 CDT by Hong Meade D.O.
[2025-06-09 08:28] LABS: Hematocrit 36.4 % (37.0-47.0); Hemoglobin 10.2 g/dL (12.0-15.0); Mean Corpuscular HGB Conc 28.0 g/dl (32-36); Mean Corpuscular Hemoglobin 24.9 pg (26-34); Mean Corpuscular Volume 88.8 fl (80-100); Platelet Count Result 275 k/mm3 (150-375); Red Blood Count 4.10 M/mm3 (4.2-5.4); White Blood Count 10.1 K/mm3 (4.5-10.0)
[2025-06-09 08:51] LABS: Anion Gap 4 mmol/L (4-12); Blood Urea Nitrogen 21 mg/dL (7-17); Calcium 8.8 mg/dL (8.4-10.2); Carbon Dioxide 38 mmol/L (22-30); Chloride 98 mmol/L (98-107); Estimated CRCL calculation 47 ml/min; Estimated Glomerular Filt Rate 35; Glucose 110 mg/dL (65-110); Potassium 3.8 mmol/L (3.4-5.0); Sodium 140 mmol/L (137-145)
[2025-06-09 09:00] LABS: Troponin I 0.013 ng/mL (0.000-0.034)
--- NOTE | 2025-06-09 10:23 | P.HP_ITS ---
H&P: HPI History of Present Illness Date/Time: 06/09/25 10:23 Chief Complaint: Confusion Narrative: This is a 65-year-old female who presents to the ER with shortness of breath sleepiness and fatigue. She was recently admitted for CHF exacerbation. She also had a flutter with RVR at that time. In the ED she was noted to be in respiratory distress with expiratory wheezing tachycardic in 120s. Laboratory study showed WBC of 13.1 hemoglobin of 10.4 platelet count of 314. Chem panel showed sodium 139 potassium 4.8 chloride 99 bicarbonate 37 BUN 24 creatinine 1.53 blood glucose 132. Kidney function stable. Lactic acid normal. Mag was normal. Viral swab was negative. EKG showed atrial flutter with rate of 117. Troponin negative. BNP elevated nearly 3000. Chest x-ray showed bilateral lower lobe infiltrates. D-dimer was elevated at 1.22. CTA was obtained which showed no PE but showed large right pleural effusion with interstitial edema. ABG showed 7.27/67/80/31. She was placed on a BiPAP due to hypercapnia. She had been started on Rocephin azithromycin and vancomycin for pneumonia for hospital-acquired pathogen. She received a dose of IV Lasix in the ED and nebulizer treatment. She is more alert since then. She is admitted to the hospital for further treatment. Review of Systems Review of Systems: - CONSTITUTIONAL: Denies weight loss, fe keysha and chills. - HEENT: Denies changes in vision and he aring - RESPIRATORY: Denies SOB and cough. - CV: Denies palpitations and CP. - GI: Denies abdominal pain, nausea, vom iting and diarrhea. - : Denies dysuria and urinary frequen cy. - MSK: Denies myalgia and joint pain. - SKIN: Denies rash and pruritus. - NEUROLOGICAL: Denies headache and sync ope. - PSYCHIATRIC: Denies recent changes in mood. Denies anxiety and depression. [facility] Past Medical History Medical History Diastolic dysfunction Echo in August 2022 showed normal LV function with an EF of 60 to 65%, grade 1 diastolic dysfunction, moderate enlarged right ventricular chamber, normal right ventricular systolic function, moderate tricuspid valve regurgitation, and pulmonary hypertension with an estimated PASP of 59 mmHg. Hypoxic respiratory failure Atrial flutter with rapid ventricular response Acute exacerbation of chronic obstructive pulmonary disease C. difficile colitis Renal failure Requiring temporary dialysis and CRRT in 09/15. 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) Congestive heart failure COPD (chronic obstructive pulmonary disease) Surgical History Surgical History History of tonsillectomy and adenoidectomy History of cholecystectomy History of 3 sections History of left knee replacement Family History Family History Father Hypertension Acute myocardial infarction Sibling Hypertension Mother Family history of heart disease in male family member before age 55 Brother Acute myocardial infarction Father Acute myocardial infarction Other Cerebrovascular accident Family history of cardiovascular disease Social History Social History Social History: She is from her Sai and they live in separate homes. She has 3 sons with kidney. She is disabled. Surrogate medical decision maker: Sai Shin, Code status: Full code. Smoking packs per day: 1 Smoking cigarettes per day: 20.0 Years smoked: 50 Smoking pack-years: 50.00 Smoking status: Former smoker Tobacco type: cigarettes Second hand tobacco smoke exposure: Yes Smoking end date: 08/23/22 Alcohol intake: never Drinks per week: 0 Substance use: never Substance use type: does not use Do You Feel Safe in your Home?: Yes Lack of Transportation: No Lack of Food: Never True Current Housing: I Have Housing Concerned About Future Housing: No Difficulty Paying Gas/Electric Bills: No Difficulty Paying for Meds: No Currently Unemployed: No Education: High School Diploma/GED Difficulty w/ Childcare or Family Care: No Living arrangements: with family Additional living arrangements comments: Lives with family in [place]. 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 Spiritual care concerns: No Meds Home Medications and Allergies Home Medications ?Medication ?Instructions ?Recorded ?Confirmed ?Type benzonatate 200 mg capsule 200 mg PO BID PRN cough #90 caps 01/31/25 06/09/25 Rx amiodarone 200 mg tablet 200 mg PO DAILY 30 days #30 tabs 06/01/25 06/09/25 Rx aspirin 325 mg tablet,delayed 325 mg PO QAM 30 days #3 0 tabs 06/01/25 06/09/25 Rx release azelastine 137 mcg (0.1 %) nasal 1 spray intranasal Q1 2H 30 days 06/01/25 06/09/25 Rx spray #30 mL duloxetine 20 mg capsule,delayed 20 mg PO DAILY 30 day s #30 caps 06/01/25 06/09/25 Rx release ferrous sulfate 325 mg (65 mg 325 mg PO BID 30 days #6 0 tabs 06/01/25 06/09/25 Rx iron) tablet fluticasone fur. 100 mcg-umeclid 1 inh inhalation JULIA Y 30 days #28 06/01/25 06/09/25 Rx 62.5 mcg-vilant 25 mcg ea inhalat.powder (Trelegy Ellipta) fluticasone propionate 50 1 spray intranasal BID 30 da ys #16 06/01/25 06/09/25 Rx mcg/actuation nasal grams spray,suspension (Flonase Allergy Relief) furosemide 20 mg tablet 20 mg PO BID 30 days #60 tab s 06/01/25 06/09/25 Rx loratadine 10 mg tablet (Claritin) 10 mg PO DAILY 30 d ays #30 tabs 06/01/25 06/09/25 Rx metoprolol tartrate 50 mg tablet 100 mg (2 x 50 mg) PO Q12HR 30 06/01/25 06/09/25 Rx days #120 tabs montelukast 10 mg tablet 10 mg PO DAILY 30 days #0 ta bs 06/01/25 06/09/25 Rx montelukast 10 mg tablet 10 mg PO DAILY 30 days #30 t abs 06/01/25 06/09/25 Rx (Singulair) omeprazole 40 mg capsule,delayed 40 mg PO DAILY 30 day s #30 caps 06/01/25 06/09/25 Rx release potassium chloride 20 mEq oral 20 meq PO DAILY 30 days #30 ea 06/01/25 06/09/25 Rx packet potassium chloride 20 mEq oral 20 meq PO DAILY 30 days #30 ea 06/01/25 06/09/25 Rx packet quetiapine 25 mg tablet 25 mg PO HS 30 days #30 tabs 06/01/25 06/09/25 Rx ropinirole 4 mg tablet 4 mg PO HS 30 days #30 tabs 06/01/25 06/09/25 Rx topiramate 100 mg tablet 200 mg (2 x 100 mg) PO BID 3 0 days 06/01/25 06/09/25 Rx #0 tabs trazodone 100 mg tablet 100 mg PO HS 30 days #0 tabs 06/01/25 06/09/25 Rx Allergies Allergy/AdvReac Type Severity Reaction Status Date / Time No Known Drug Allergies Allergy Unknown Verified 06/09/25 08:40 Vital Signs Vital Signs - 24 hr 06/08/25 20:34 06/08/25 23:06 06/08/25 23:16 Temperature 98.9 F Pulse Rate 122 H 118 H 117 H Respiratory Rate 22 H 17 27 H Blood Pressure 121/70 134/91 H Pulse Oximetry 96 97 96 Oxygen Delivery Nasal Cannula Oxygen Flow Rate 4 06/08/25 23:21 06/08/25 23:21 06/09/25 00:10 Temperature Pulse Rate 115 H 83 Respiratory Rate 17 Blood Pressure Pulse Oximetry 93 Oxygen Delivery Nasal Cannula Oxygen Flow Rate 4 06/09/25 00:17 06/09/25 00:25 06/09/25 00:34 Temperature Pulse Rate 78 119 H Respiratory Rate 19 19 16 Blood Pressure 149/82 H Pulse Oximetry 98 96 Oxygen Delivery BiPAP Oxygen Flow Rate 06/09/25 01:47 06/09/25 03:18 06/09/25 04:21 Temperature Pulse Rate 120 H 119 H Respiratory Rate 13 20 22 H Blood Pressure 130/85 125/74 Pulse Oximetry 100 99 99 Oxygen Delivery BiPAP Oxygen Flow Rate 06/09/25 04:32 06/09/25 06:47 06/09/25 06:48 Temperature Pulse Rate 120 H 125 H 122 H Respiratory Rate 14 23 H 22 H Blood Pressure 138/68 110/87 Pulse Oximetry 98 99 Oxygen Delivery Oxygen Flow Rate 06/09/25 06:49 06/09/25 07:02 06/09/25 07:21 Temperature Pulse Rate 123 H 122 H 117 H Respiratory Rate 15 19 14 Blood Pressure 91/76 L Pulse Oximetry 87 L 97 Oxygen Delivery Oxygen Flow Rate 06/09/25 07:46 06/09/25 07:47 06/09/25 08:07 Temperature Pulse Rate 122 H 112 H 122 H Respiratory Rate 16 18 18 Blood Pressure Pulse Oximetry 98 Oxygen Delivery BiPAP Oxygen Flow Rate 06/09/25 08:21 06/09/25 08:30 06/09/25 09:12 Temperature Pulse Rate 123 H 123 H 122 H Respiratory Rate 22 H 12 26 H Blood Pressure 92/60 L Pulse Oximetry 98 97 97 Oxygen Delivery BiPAP Oxygen Flow Rate Exam Narrative: GENERAL: The patient is well developed, not in acute distress currently on BiPAP HEENT: Nonicteric sclerae, PERRLA, EOMI. CHEST: Chest wall is nontender. HEART: Tachycardic, regular rhythm without murmur, rubs, or gallops LUNGS: Diminished breath sounds bilaterally. no respiratory distress mild crackles in the bases ABDOMEN: Soft, positive bowel sounds, non-tender, no organomegaly. SKIN: No rash, no excessive bruising, petechiae, or purpura. NEUROLOGIC: Cranial nerves II-XII intact, alert and oriented x 3, no gross motor deficits EXTREMITIES: Bilateral trace edema, no cyanosis or clubbing H&P: Results Labs Labs: Short CBC 06/08/25 06/09/25 Range/Units 23:16 08:14 WBC 13.1 H 10.1 H (4.5-10.0) K/mm3 Hgb 10.4 L 10.2 L (12.0-15.0) g/dL Hct 38.2 36.4 L (37.0-47.0) % Plt Count 314 275 (150-375) k/mm3 [facility] 06/08/25 06/09/25 23:16 08:14 Sodium 139 140 Potassium 4.8 3.8 Chloride 99 98 Carbon Dioxide 37 H 38 H BUN 24 H D 21 H Creatinine 1.53 H 1.50 H Glucose 132 H 110 Calcium 8.7 8.8 Cardiac Enzymes 06/08/25 06/09/25 06/09/25 Range/Units 23:16 05:53 08:14 Troponin I < 0.012 < 0.012 0.013 (0.000-0.034) ng/mL Liver Function 10/16/25 Range/Units 23:16 Total Bilirubin 0.3 (0.2-1.3) mg/dL AST 14 (14-36) U/L ALT 14 (6-35) U/L Alkaline Phosphatase 104 (38-126) U/L Albumin 3.9 (3.5-5.1) g/dL Assessment and Plan Assessment and plan (1) Hypertension: Code(s): I10 - Essential (primary) hypertension Status: Acute (2) Diastolic dysfunction: Code(s): I51.89 - Other ill-defined heart diseases Status: Acute (3) Acute on chronic congestive heart failure: Code(s): I50.9 - Heart failure, unspecified Status: Chronic (4) Atrial flutter with rapid ventricular response: Code(s): I48.92 - Unspecified atrial flutter Status: Acute (5) Elevated d-dimer: Code(s): R79.89 - Other specified abnormal findings of blood chemistry Status: Acute (6) Chronic kidney disease, stage 3: Code(s): N18.30 - Chronic kidney disease, stage 3 unspecified Status: Acute (7) Restless leg syndrome: Code(s): G25.81 - Restless legs syndrome Status: Acute (8) Acute on chronic respiratory failure with hypoxia and hypercapnia: Code(s): J96.21 - Acute and chronic respiratory failure with hypoxia; J96.22 - Acute and chronic respiratory failure with hypercapnia Status: Acute (9) Tobacco use: Code(s): Z72.0 - Tobacco use Status: Acute Plan This is a 65-year-old female who presents to the ER with shortness of breath sleepiness and fatigue. She was recently admitted for CHF exacerbation. She also had a flutter with RVR at that time. In the ED she was noted to be in respiratory distress with expiratory wheezing tachycardic in 120s. Laboratory study showed WBC of 13.1 hemoglobin of 10.4 platelet count of 314. Chem panel showed sodium 139 potassium 4.8 chloride 99 bicarbonate 37 BUN 24 creatinine 1.53 blood glucose 132. Kidney function stable. Lactic acid normal. Mag was normal. Viral swab was negative. EKG showed atrial flutter with rate of 117. Troponin negative. BNP elevated nearly 3000. Chest x-ray showed bilateral lower lobe infiltrates. D-dimer was elevated at 1.22. CTA was obtained which showed no PE but showed large right pleural effusion with interstitial edema. ABG showed 7.27/67/80/31. She was placed on a BiPAP due to hypercapnia. She had been started on Rocephin azithromycin and vancomycin for pneumonia for hospital-acquired pathogen. She received a dose of IV Lasix in the ED and nebulizer treatment. She is more alert since then. She is admitted to the hospital for further treatment. Acute on chronic hypoxic hypercapnic respiratory failure. Will recheck ABG if improved will get off of BiPAP Right pleural effusion refused thoracentesis last admission. Agreeable today. Likely related to CHF exacerbation Acute on chronic congestive heart failure. Diastolic. Recent echo with EF 60- 65% moderate pulmonary hypertension mild MR mild TR Atrial flutter/fibrillation with RVR resume amiodarone and metoprolol. Cardiology consult. Chads Vasc score 3. On aspirin as she refused anticoagulation History of rectus sheath hematoma while on Eliquis refused anticoagulation CKD stage 3 Hypertension COPD Chronic respiratory failure on home oxygen 4 L DVT prophylaxis Lovenox Code status full code [facility] Advance Care Plan I have confirmed that the patient's Advanced Care Plan is present, code status is documented, or surrogate decision maker is listed in patient medical record.: Yes Medication Reconciliation I have utilized all available resources to obtain, update and review the patients current medications (includes all prescriptions, OTC, herbals, cannabis, and nutritional supplements).: Yes
[2025-06-09 10:32] LABS: Alveolar/Arterial O2 Gradient 84.6 mmHg; Fractional Inspired Oxygen 35 %; HCO3 ABG 34.8 mEq/l (22.0-26.0); Oxygen Content ABG 14.4 %vol (16.0-22.0); Oxygen Saturation ABG 96.0 % (95.0-100.0); PO2 ABG 88.6 mmHg (80.0-100.0); PO2 FiO2 Ratio Arterial Blood 2.53 %
[2025-06-09 10:34] LABS: Modified Allen's Test Pass; PCO2 ABG 65.7 mmHg (35.0-45.0); Site Drawn LEFT RADIAL
[2025-06-09 10:35] LABS: Non-Invasive Expiratory Pressure 8 CMH2O; Non-Invasive Inspiratory Pressure 16 CMH2O; Non-Invasive Vent Rate 16 /MIN
[2025-06-09 12:02] LABS: Procalcitonin 0.1 ng/mL
[2025-06-09] MEDS: AMIODARONE HCL 200 MG TABLET PO (14:54)
[2025-06-09] MEDS: PANTOPRAZOLE 40 MG TABLET PO (14:54)
[2025-06-09] MEDS: POTASSIUM CHLORIDE 20 MEQ PACKET (FOR LIQUID) PO (14:54)
[2025-06-09] MEDS: ASPIRIN 325 MG ENTERIC TABLET PO (14:55)
[2025-06-09] MEDS: LORATADINE 10 MG TABLET PO (14:55)
[2025-06-09] MEDS: MONTELUKAST SODIUM 10 MG TABLET PO (14:55)
[2025-06-09 15:43] LABS: Appearance Pleural Fluid Cloudy (Clear); Color Pleural Fluid Yellow (Colorless); Lymphocytes Pleural Fluid 21 %; Macrophages Pleural Fluid 76 %; Monocytes Pleural Fluid 1 %; Neutrophils Pleural Fluid 2 % (0-25); Nucleated Cell Pleural Fluid 1578 /uL (0-1000)
--- NOTE | 2025-06-09 15:58 | P.CONCA_ITS ---
Assessment and Plan Assessment and plan (1) Atrial flutter with rapid ventricular response: Code(s): I48.92 - Unspecified atrial flutter Status: Acute Assessment and Plan: Rapid in atrial flutter at 123 bpm. [id number] 3. On Amiodarone and Metoprolol 100 mg BID and aspirin. 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 Discussed SRIDEVI/DC cardioversion, but she adamantly declined. Increase Metoprolol Tartate 150 mg BID. (2) Acute exacerbation of CHF (congestive heart failure): Qualifiers: Heart failure type: unspecified Qualified Code(s): I50.9 - Heart failure, unspecified Code(s): I50.9 - Heart failure, unspecified Status: Acute Assessment and Plan: Acute on chronic diastolic HF. S/P right thoracentesis of 600 ml fluid. On Lasix 40 mg IV BID. Monitor renal function and electrolytes. (3) Pneumonia: Qualifiers: Laterality: bilateral Lung location: lower lobe of lung Pneumonia type: due to unspecified organism Qualified Code(s): J18.9 - Pneumonia, unspecified organism Code(s): J18.9 - Pneumonia, unspecified organism Status: Acute Assessment and Plan: On antibiotic as per hospitalist. (4) Chronic obstructive pulmonary disease: Code(s): J44.9 - Chronic obstructive pulmonary disease, unspecified Status: Chronic Assessment and Plan: Chronically on oxygen. History of Present Illness History of Present Illness Consult date/time: 06/09/25 15:58 Reason For Visit: acute hypoxid/hypercapnic resp fail, CHF, PNA, afl Narrative: 65 yr old woman who is my regular cardiology patient and a patient of Dr. Golden presents to ER with fatigue. She has a history of atrial flutter, PAF in 2022, diastolic dysfunction, COPD on oxygen, former smoking. Reports she has fatigue and wanting to sleep all the time was the reason she came to ER. It was found she was still in atrial flutter at 123 bpm, she has large right pleural effusion and pneumonia. She just got thoracentesis today. She feels palpitations daily and in atrial fib/flutter now. She is on oxygen 6 l/m. She can walk short distance with a walker and oxygen in the house. Has mild edema of both legs. Denies chest pain, orthopnea, dizziness. Cardiovascular Procedures Echo/MUGA:: 12/02/24 Echo: TDS. EF 60-65%, diastolic dysfunction, RVE, trace MR/TR. Electrophysiology:: 12/31/24 EKG: Sinus bradycardia at 56 bpm, IVCD. Stress Tests:: 01/05/25 CT chest: Mild emphysema. RUL pneumonia. Review of Systems 2 Review of Systems: All systems reviewed & are unremarkable except as noted in HPI and below Constitutional: Constitutional: Reports as per HPI, Denies chills, Reports fatigue and Denies fever(s) Cardiovascular: Cardiovascular: Reports as per HPI, Denies chest pain, Reports irregular heart rhythm and Reports leg edema Respiratory: Respiratory: Reports as per HPI and Reports dyspnea Gastrointestinal: Gastrointestinal: Reports as per HPI and Denies abdominal pain Genitourinary: Genitourinary: Reports as per HPI and Denies dysuria Musculoskeletal: Musculoskeletal: Reports as per HPI Neurologic: Reports as per HPI, Denies dizziness and Denies syncope REPLACED BY [facility] Past Medical History Medical History Diastolic dysfunction Echo in August 2022 showed normal LV function with an EF of 60 to 65%, grade 1 diastolic dysfunction, moderate enlarged right ventricular chamber, normal right ventricular systolic function, moderate tricuspid valve regurgitation, and pulmonary hypertension with an estimated PASP of 59 mmHg. Hypoxic respiratory failure Atrial flutter with rapid ventricular response Acute exacerbation of chronic obstructive pulmonary disease C. difficile colitis Renal failure Requiring temporary dialysis and CRRT in 09/15. 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) Congestive heart failure COPD (chronic obstructive pulmonary disease) Surgical History Surgical History History of tonsillectomy and adenoidectomy History of cholecystectomy History of 3 sections History of left knee replacement Family History Family History Father Hypertension Acute myocardial infarction Sibling Hypertension Mother Family history of heart disease in male family member before age 55 Brother Acute myocardial infarction Father Acute myocardial infarction Other Cerebrovascular accident Family history of cardiovascular disease Social History Social History Social History: She is from her Sai and they live in separate homes. She has 3 sons with kidney. She is disabled. Surrogate medical decision maker: Sai Shin, Code status: Full code. Smoking packs per day: 3 Smoking cigarettes per day: 60.0 Years smoked: 50 Smoking pack-years: 150.00 Smoking status: Former smoker Tobacco type: cigarettes Second hand tobacco smoke exposure: Yes Smoking end date: 08/23/22 Alcohol intake: never Drinks per week: 0 Substance use: never Substance use type: does not use Do You Feel Safe in your Home?: Yes Lack of Transportation: No Lack of Food: Never True Current Housing: I Have Housing Concerned About Future Housing: No Difficulty Paying Gas/Electric Bills: YES Difficulty Paying for Meds: No Currently Unemployed: No Education: High School Diploma/GED Difficulty w/ Childcare or Family Care: No Living arrangements: with family Additional living arrangements comments: Lives with family in [place]. 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 Spiritual care concerns: No Meds Home Medications and Allergies Home Medications ?Medication ?Instructions ?Recorded ?Confirmed ?Type benzonatate 200 mg capsule 200 mg PO BID PRN cough #90 caps 01/31/25 06/09/25 Rx amiodarone 200 mg tablet 200 mg PO DAILY 30 days #30 tabs 06/01/25 06/09/25 Rx aspirin 325 mg tablet,delayed 325 mg PO QAM 30 days #3 0 tabs 06/01/25 06/09/25 Rx release azelastine 137 mcg (0.1 %) nasal 1 spray intranasal Q1 2H 30 days 06/01/25 06/09/25 Rx spray #30 mL duloxetine 20 mg capsule,delayed 20 mg PO DAILY 30 day s #30 caps 06/01/25 06/09/25 Rx release ferrous sulfate 325 mg (65 mg 325 mg PO BID 30 days #6 0 tabs 06/01/25 06/09/25 Rx iron) tablet fluticasone fur. 100 mcg-umeclid 1 inh inhalation JULIA Y 30 days #28 06/01/25 06/09/25 Rx 62.5 mcg-vilant 25 mcg ea inhalat.powder (Trelegy Ellipta) fluticasone propionate 50 1 spray intranasal BID 30 da ys #16 06/01/25 06/09/25 Rx mcg/actuation nasal grams spray,suspension (Flonase Allergy Relief) furosemide 20 mg tablet 20 mg PO BID 30 days #60 tab s 06/01/25 06/09/25 Rx loratadine 10 mg tablet (Claritin) 10 mg PO DAILY 30 d ays #30 tabs 06/01/25 06/09/25 Rx metoprolol tartrate 50 mg tablet 100 mg (2 x 50 mg) PO Q12HR 30 06/01/25 06/09/25 Rx days #120 tabs montelukast 10 mg tablet 10 mg PO DAILY 30 days #0 ta bs 06/01/25 06/09/25 Rx montelukast 10 mg tablet 10 mg PO DAILY 30 days #30 t abs 06/01/25 06/09/25 Rx (Singulair) omeprazole 40 mg capsule,delayed 40 mg PO DAILY 30 day s #30 caps 06/01/25 06/09/25 Rx release potassium chloride 20 mEq oral 20 meq PO DAILY 30 days #30 ea 06/01/25 06/09/25 Rx packet potassium chloride 20 mEq oral 20 meq PO DAILY 30 days #30 ea 06/01/25 06/09/25 Rx packet quetiapine 25 mg tablet 25 mg PO HS 30 days #30 tabs 06/01/25 06/09/25 Rx ropinirole 4 mg tablet 4 mg PO HS 30 days #30 tabs 06/01/25 06/09/25 Rx topiramate 100 mg tablet 200 mg (2 x 100 mg) PO BID 3 0 days 06/01/25 06/09/25 Rx #0 tabs trazodone 100 mg tablet 100 mg PO HS 30 days #0 tabs 06/01/25 06/09/25 Rx Allergies Allergy/AdvReac Type Severity Reaction Status Date / Time No Known Drug Allergies Allergy Unknown Verified 06/09/25 10:36 Vital Signs Vital Signs - 24 hr 06/08/25 20:34 06/08/25 23:06 06/08/25 23:16 Temperature 98.9 F Pulse Rate 122 H 118 H 117 H Respiratory Rate 22 H 17 27 H Blood Pressure 121/70 134/91 H Pulse Oximetry 96 97 96 Oxygen Delivery Nasal Cannula Oxygen Flow Rate 4 06/08/25 23:21 06/08/25 23:21 06/09/25 00:10 Temperature Pulse Rate 115 H 83 Respiratory Rate 17 Blood Pressure Pulse Oximetry 93 Oxygen Delivery Nasal Cannula Oxygen Flow Rate 4 06/09/25 00:17 06/09/25 00:25 06/09/25 00:34 Temperature Pulse Rate 78 119 H Respiratory Rate 19 19 16 Blood Pressure 149/82 H Pulse Oximetry 98 96 Oxygen Delivery BiPAP Oxygen Flow Rate 06/09/25 01:47 06/09/25 03:18 06/09/25 04:21 Temperature Pulse Rate 120 H 119 H Respiratory Rate 13 20 22 H Blood Pressure 130/85 125/74 Pulse Oximetry 100 99 99 Oxygen Delivery BiPAP Oxygen Flow Rate 06/09/25 04:32 06/09/25 06:47 06/09/25 06:48 Temperature Pulse Rate 120 H 125 H 122 H Respiratory Rate 14 23 H 22 H Blood Pressure 138/68 110/87 Pulse Oximetry 98 99 Oxygen Delivery Oxygen Flow Rate 06/09/25 06:49 06/09/25 07:02 06/09/25 07:21 Temperature Pulse Rate 123 H 122 H 117 H Respiratory Rate 15 19 14 Blood Pressure 91/76 L Pulse Oximetry 87 L 97 Oxygen Delivery Oxygen Flow Rate 06/09/25 07:46 06/09/25 07:47 06/09/25 08:07 Temperature Pulse Rate 122 H 112 H 122 H Respiratory Rate 16 18 18 Blood Pressure Pulse Oximetry 98 Oxygen Delivery BiPAP Oxygen Flow Rate 06/09/25 08:21 06/09/25 08:30 06/09/25 09:12 Temperature Pulse Rate 123 H 123 H 122 H Respiratory Rate 22 H 12 26 H Blood Pressure 92/60 L Pulse Oximetry 98 97 97 Oxygen Delivery BiPAP Oxygen Flow Rate 06/09/25 10:00 06/09/25 11:00 06/09/25 12:00 Temperature Pulse Rate 121 H 121 H 122 H Respiratory Rate 12 20 Blood Pressure 106/71 Pulse Oximetry 91 98 Oxygen Delivery Nasal Cannula Oxygen Flow Rate 2 06/09/25 12:00 06/09/25 12:00 06/09/25 14:07 Temperature Pulse Rate 122 H 119 H 123 H Respiratory Rate 18 15 20 Blood Pressure 122/66 Pulse Oximetry 94 92 94 Oxygen Delivery Nasal Cannula Nasal Cannula Oxygen Flow Rate 2 2 06/09/25 14:54 Temperature Pulse Rate 123 H Respiratory Rate Blood Pressure Pulse Oximetry Oxygen Delivery Oxygen Flow Rate Exam 2 Const: General: cooperative, healthy appearing and comfortable Resp: Auscultation: no rhonchi, no wheezes and diminished lung sounds Cardio: Rate: tachycardic Rhythm: regular rhythm Heart sounds: no murmurs Peripheral pulses: dorsalis pedis present GI: GI Palp: No abdominal tenderness and Yes Soft to palpation Neuro: General: oriented to person, oriented to place and oriented to time Extrem: Right lower extremity: edema Left lower extremity: edema Other: Mild edema of both legs Results Labs and Meds 06/09/25 08:14 06/09/25 08:14 Lab results: Cardiac Enzymes 06/08/25 06/09/25 06/09/25 Range/Units 23:16 05:53 08:14 AST 14 (14-36) U/L Lactate Dehydrogenase (120-246) U/L Troponin I < 0.012 < 0.012 0.013 (0.000-0.034) ng/mL 06/09/25 Range/Units 10:59 AST (14-36) U/L Lactate Dehydrogenase 149 (120-246) U/L Troponin I (0.000-0.034) ng/mL Coagulation 06/08/25 Range/Units 23:16 PT 14.0 (11.1-14.7) Seconds APTT 33.4 (22.3-36.8) Seconds CBC 06/08/25 06/09/25 Range/Units 23:16 08:14 WBC 13.1 H 10.1 H (4.5-10.0) K/mm3 RBC 4.29 4.10 L (4.2-5.4) M/mm3 Hgb 10.4 L 10.2 L (12.0-15.0) g/dL Hct 38.2 36.4 L (37.0-47.0) % Plt Count 314 275 (150-375) k/mm3 Lymph # (Auto) 1.46 (0.9-3.2) K/mm3 [place] # (Auto) 0.7 H (0.1-0.6) K/mm3 Eos # (Auto) 0.1 (0-0.3) K/mm3 Baso # (Auto) 0.1 (0.0-0.1) K/mm3 Comprehensive Metabolic Panel 06/08/25 06/09/25 Range/Units 23:16 08:14 Sodium 139 140 (137-145) mmol/L Potassium 4.8 3.8 (3.4-5.0) mmol/L Chloride 99 98 (98-107) mmol/L Carbon Dioxide 37 H 38 H (22-30) mmol/L BUN 24 H D 21 H (7-17) mg/dL Creatinine 1.53 H 1.50 H (0.7-1.0) mg/dL Glucose 132 H 110 (65-110) mg/dL Calcium 8.7 8.8 (8.4-10.2) mg/dL AST 14 (14-36) U/L ALT 14 (6-35) U/L Alkaline Phosphatase 104 (38-126) U/L Total Protein 7.6 (6.3-8.2) g/dL Albumin 3.9 (3.5-5.1) g/dL Intake and Output 06/08/25 06/09/25 06/09/25 23:59 07:59 15:59 Intake Total 800 Output Total 1200 600 Balance -400 -600 Intake: IV 800 Azithromycin IV 500 mg In 250 Sodium Chloride 0.9% IV 250 ml @ 250 mls/hr IVPB ONCE STA Rx#: [id number] Vancomycin 1,250 mg/Ns 250 ml 1 500 ,250 mg In 250 ml @ 166.667 mls /hr IVPB ONCE ONE Rx#:[id number] cefTRIAXone 1 gm In Sodium 50 Chloride 0.9% IV 50 ml @ 100 mls/hr IVPB ONCE STA Rx#: [id number] Output: Catheter Urine 1200 External/Condom 1200 Pleural Fluid 600 Patient Weight 06/09/25 23:59 Weight 137.3 kg
--- NOTE | 2025-06-09 16:46 | PCRCNOTE ---
Window of time for administration has passed. See next scheduled administration.
[2025-06-09] MEDS: FERROUS SULFATE 325 MG TABLET BY MOUTH (17:27)
[2025-06-09] MEDS: AZELASTINE HCL NASAL 0.1% 137 MCG/SPR 30 ML BTL 1 SPRAY NASAL (20:43)
[2025-06-09] MEDS: METOPROLOL TARTRATE 50 MG TAB 150 MG PO (20:43)
[2025-06-10] VITALS (21 sets, daily range): BP systolic 116–148; BP diastolic 74–93; PULSE 112–122; RESP 14–25; TEMP 36.3–36.8; O2SAT 92–99; BMI 46.6
[2025-06-10] MEDS: AZITHROMYCIN IV 500 MG in SODIUM CHLORIDE 0.9% IV 250 ML IVPB (00:22)
--- NOTE | 2025-06-10 01:14 | PC.NURSE ---
This patient, Cony Shin, was transferred to [facility] on 06/10/25 at 0114. Personal belongings sent with patient. Report given to ROX Hull. Appropriate documentation sent with patient.
[2025-06-10] MEDS: VANCOMYCIN 1,500 MG/NS 500 ML 1,500 MG/500 ML BAG 250 MG IVPB (01:38)
[2025-06-10 05:15] LABS: Estimated CRCL calculation 55 ml/min; Estimated Glomerular Filt Rate 43
--- NOTE | 2025-06-10 07:43 | PM.PNCARD ---
Progress Note: A&P Assessment and Plan (1) Atrial flutter with rapid ventricular response: Code(s): I48.92 - Unspecified atrial flutter Status: Acute Assessment and Plan: Rapid in atrial flutter at 115 bpm. [id number] 3. On Amiodarone and Metoprolol 150 mg BID and aspirin. 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 Discussed SRIDEVI/DC cardioversion, but she adamantly declined. Discussed referral for ablation and she adamantly declined this also. Increased Metoprolol Tartate 150 mg BID and HR at 115 bpm. (2) Acute exacerbation of CHF (congestive heart failure): Qualifiers: Heart failure type: unspecified Qualified Code(s): I50.9 - Heart failure, unspecified Code(s): I50.9 - Heart failure, unspecified Status: Acute Assessment and Plan: Improved. Acute on chronic diastolic HF. S/P right thoracentesis of 600 ml fluid. On Lasix 40 mg IV BID. Change Lasix 40 mg PO BID. Will sign off, please call with any questions. Upon discharge have her f/u with me in 1-2 weeks. (3) Pneumonia: Qualifiers: Laterality: bilateral Lung location: lower lobe of lung Pneumonia type: due to unspecified organism Qualified Code(s): J18.9 - Pneumonia, unspecified organism Code(s): J18.9 - Pneumonia, unspecified organism Status: Acute Assessment and Plan: On antibiotic as per hospitalist. (4) Chronic obstructive pulmonary disease: Code(s): J44.9 - Chronic obstructive pulmonary disease, unspecified Status: Chronic Assessment and Plan: Chronically on oxygen. Subjective Date/time seen: 06/10/25 07:43 Interval history: Denies chest pain or sob. Exam Const: General: cooperative, healthy appearing and comfortable Orientation/consciousness: oriented to person, oriented to place and oriented to time Resp: Auscultation: clear to auscultation bilaterally, no rhonchi and no wheezes Cardio: Rate: tachycardic Rhythm: regular rhythm Heart sounds: no murmurs Peripheral pulses: dorsalis pedis present Neuro: General: oriented to person, oriented to place and oriented to time Extrem: Right lower extremity: edema Left lower extremity: edema Other: Mild edema of both legs Objective Data Vital Signs Vital Signs: Vital Signs - 24 hr 06/09/25 07:46 06/09/25 07:47 06/09/25 08:07 Temperature Pulse Rate 122 H 112 H 122 H Respiratory Rate 16 18 18 Blood Pressure Pulse Oximetry 98 Oxygen Delivery BiPAP Oxygen Flow Rate 06/09/25 08:21 06/09/25 08:30 06/09/25 09:12 Temperature Pulse Rate 123 H 123 H 122 H Respiratory Rate 22 H 12 26 H Blood Pressure 92/60 L Pulse Oximetry 98 97 97 Oxygen Delivery BiPAP Oxygen Flow Rate 06/09/25 10:00 06/09/25 11:00 06/09/25 12:00 Temperature Pulse Rate 121 H 121 H 122 H Respiratory Rate 12 20 Blood Pressure 106/71 Pulse Oximetry 91 98 Oxygen Delivery Nasal Cannula Oxygen Flow Rate 2 06/09/25 12:00 06/09/25 12:00 06/09/25 14:07 Temperature Pulse Rate 122 H 119 H 123 H Respiratory Rate 18 15 20 Blood Pressure 122/66 Pulse Oximetry 94 92 94 Oxygen Delivery Nasal Cannula Nasal Cannula Oxygen Flow Rate 2 2 06/09/25 14:54 06/09/25 16:00 06/09/25 16:00 Temperature Pulse Rate 123 H 123 H 122 H Respiratory Rate 17 Blood Pressure 131/81 Pulse Oximetry 97 Oxygen Delivery Oxygen Flow Rate 06/09/25 16:00 06/09/25 16:37 06/09/25 20:00 Temperature 98.1 F Pulse Rate 122 H 124 H 123 H Respiratory Rate 17 20 21 H Blood Pressure 105/72 Pulse Oximetry 98 95 91 Oxygen Delivery Nasal Cannula Nasal Cannula Oxygen Flow Rate 2 2 06/09/25 20:00 06/09/25 20:00 06/09/25 20:30 Temperature Pulse Rate 123 H 124 H Respiratory Rate Blood Pressure Pulse Oximetry 92 92 Oxygen Delivery Nasal Cannula Nasal Cannula Oxygen Flow Rate 2 2 06/09/25 20:43 06/09/25 22:00 06/09/25 23:30 Temperature Pulse Rate 123 H 118 H Respiratory Rate Blood Pressure Pulse Oximetry 94 Oxygen Delivery Nasal Cannula Oxygen Flow Rate 2 06/10/25 00:00 06/10/25 00:00 06/10/25 01:28 Temperature 98.0 F 97.8 F Pulse Rate 114 H 118 H 117 H Respiratory Rate 25 H 23 H Blood Pressure 116/79 135/78 Pulse Oximetry 92 96 Oxygen Delivery Oxygen Flow Rate 06/10/25 01:29 06/10/25 02:00 06/10/25 04:00 Temperature Pulse Rate 116 H Respiratory Rate Blood Pressure Pulse Oximetry 96 99 Oxygen Delivery Nasal Cannula Nasal Cannula Oxygen Flow Rate 3 3 06/10/25 04:00 06/10/25 04:00 06/10/25 06:00 Temperature 97.5 F L Pulse Rate 116 H 117 H 116 H Respiratory Rate 19 Blood Pressure 141/74 H Pulse Oximetry 95 Oxygen Delivery Oxygen Flow Rate Intake/Output Intake/Output: Intake & Output 06/07/25 06/08/25 06/09/25 06/10/25 23:59 23:59 23:59 23:59 Intake Total 1280 900 Output Total 2400 1575 Balance -1120 -575 Meds/Results Medications: Active Medications Generic Name Dose Route Start Last Admin Trade Name Freq PRN Reason Stop Dose Admin Acetaminophen 650 mg 06/09/25 01:33 Acetaminophen 325 Mg Tablet PO Q4H PRN Mild Pain (1-3) or Fever Amiodarone HCl 200 mg 06/09/25 10:45 06/09/25 14:54 Amiodarone Hcl 200 Mg Tablet PO 200 mg DAILY YODIT Administration Aspirin 325 mg 06/09/25 10:45 06/09/25 14:55 Aspirin 325 Mg Enteric Tablet PO 325 mg QAM YODIT Administration Azelastine HCl 1 spray 06/09/25 21:00 06/09/25 20:43 Azelastine Hcl Nasal 0.1% 137 Mcg/Spr 30 Ml Btl NASAL 1 spray Q12HR YODIT Administration Benzonatate 200 mg 06/09/25 10:43 Benzonatate 100 Mg Capsule PO BID PRN cough Duloxetine HCl 20 mg 06/09/25 10:45 06/09/25 14:54 Duloxetine Hcl 20 Mg Capsule.Dr PO 20 mg DAILY YODIT Administration Enoxaparin Sodium 40 mg 06/09/25 10:45 06/09/25 14:55 Enoxaparin 40 Mg/0.4 Ml Syringe SUB-Q Not Given DAILY YODIT Ferrous Sulfate 325 mg 06/09/25 17:00 06/09/25 17:27 Ferrous Sulfate 325 Mg Tablet BY MOUTH 325 mg BID YODIT Administration Fluticasone Propionate 1 spray 06/09/25 17:00 06/09/25 18:05 Fluticasone Propionate 0.05% Na Spr 16 Gm Btl (*Bkc) NASAL Not Given BID YODIT Fluticasone/Umeclidinium/Vilanterol 1 puff 06/09/25 10:45 06/09/25 16:45 Fluticasone/Umeclidin/Vilanter 100-62.5-25 Mcg Ellipta INHALATION Not Given DAILY [facility], [facility] Furosemide 40 mg 06/10/25 09:00 Furosemide 40 Mg Tablet PO BID YODIT Ceftriaxone Sodium 1 gm/ 50 mls @ 100 mls/hr 06/10/25 00:00 06/10/25 00:24 Sodium Chloride IVPB Infused Q24H YODIT Infusion Azithromycin 500 mg/ Sodium 250 mls @ 250 mls/hr 06/10/25 00:00 06/10/25 01:22 Chloride IVPB 06/13/25 00:59 Infused Q24H YODIT Infusion Vancomycin HCl 1,500 mg in 500 mls @ 250 mls/hr 06/10/25 01:00 06/10/25 03:38 Vancomycin 1,500 Mg/Ns 500 Ml IVPB Infused Q24H YODIT Infusion Loratadine 10 mg 06/09/25 10:45 06/09/25 14:55 Loratadine 10 Mg Tablet PO 10 mg DAILY YODIT Administration Metoprolol Tartrate 150 mg 06/09/25 21:00 06/09/25 20:43 Metoprolol Tartrate 50 Mg Tab PO 150 mg Q12HR YODIT Administration Montelukast Sodium 10 mg 06/09/25 10:45 06/09/25 14:55 Montelukast Sodium 10 Mg Tablet PO 10 mg DAILY YODIT Administration Ondansetron HCl 4 mg 06/09/25 01:33 Ondansetron Inj 4 Mg/2 Ml Vial IV PUSH Q4H PRN Nausea Pantoprazole Sodium 40 mg 06/09/25 10:45 06/09/25 14:54 Pantoprazole 40 Mg Tablet PO 40 mg QAM YODIT Administration Potassium Chloride 20 meq 06/09/25 10:45 06/09/25 14:54 Potassium Chloride 20 Meq Packet (For Liquid) PO 20 meq DAILY YODIT Administration Topiramate 200 mg 06/09/25 17:00 06/09/25 17:27 Topiramate 100 Mg Tablet PO Not Given BID [facility], [facility] Radiology Results: ITS Impressions Chest CTA 06/09/25 07:45 IMPRESSION: 1. No PE. No significant change from 2 weeks prior. 2. Large right pleural effusion, and interstitial pulmonary edema. Chest X-Ray 06/09/25 15:18 IMPRESSION: 1. Resolution of prior right pleural effusion with no pneumothorax post thoracentesis. 2. Mild increased initial pattern at the bilateral lung bases and favor mild pulmonary edema and/or atelectasis over pneumonia. Thoracentesis Ultrasound 06/09/25 15:59 IMPRESSION: 1. Successful ultrasound-guided thoracentesis yielding 600 mL of tex-colored fluid. Labs Labs: Laboratory Results - last 24 hr 06/09/25 06/09/25 06/09/25 08:14 10:29 10:59 WBC 10.1 H RBC 4.10 L Hgb 10.2 L Hct 36.4 L MCV 88.8 MCH 24.9 L MCHC 28.0 L RDW 15.8 H Plt Count 275 MPV 9.0 Puncture Site Left radial ABG pH 7.342 L ABG pCO2 65.7 H* ABG pO2 88.6 ABG PO2/FiO2 Ratio 2.53 ABG HCO3 34.8 H ABG O2 Saturation 96.0 ABG O2 Content 14.4 L ABG Base Excess 7.4 A-a Gradient 84.6 Oxyhemoglobin 95.6 Total Hemoglobin 10.6 L O2 Delivery Device Non-invasive vent O2 Liters/Min Not Reportable Vent Rate 16 FiO2 35 Expiratory Pressure 8 Inspiratory Pressure 16 Sodium 140 Potassium 3.8 Chloride 98 Carbon Dioxide 38 H Anion Gap 4 BUN 21 H Creatinine 1.50 H Estim Creat Clear Calc 47 Estimated GFR 35 L Glucose 110 Calcium 8.8 Lactate Dehydrogenase 149 Troponin I 0.013 Procalcitonin Pleural Fluid Source Pleural Color Pleural Appearance Pleural pH Pleural RBC Pleural Nuc Cells Pleural Neutrophils Pleural Lymphocytes Pleural Monocytes Pleural Macrophages Pleural Total Protein 06/09/25 06/09/25 06/10/25 11:13 14:26 03:53 WBC RBC Hgb Hct MCV MCH MCHC RDW Plt Count MPV Puncture Site ABG pH ABG pCO2 ABG pO2 ABG PO2/FiO2 Ratio ABG HCO3 ABG O2 Saturation ABG O2 Content ABG Base Excess A-a Gradient Oxyhemoglobin Total Hemoglobin O2 Delivery Device O2 Liters/Min Vent Rate FiO2 Expiratory Pressure Inspiratory Pressure Sodium Potassium Chloride Carbon Dioxide Anion Gap BUN Creatinine 1.24 H Estim Creat Clear Calc 55 Estimated GFR 43 L Glucose Calcium Lactate Dehydrogenase Troponin I Procalcitonin 0.1 Pleural Fluid Source Pleural fluid Pleural Color Yellow Pleural Appearance Cloudy Pleural pH 7.441 Pleural RBC 5000 Pleural Nuc Cells 1578 H Pleural Neutrophils 2 Pleural Lymphocytes 21 Pleural Monocytes 1 Pleural Macrophages 76 Pleural Total Protein Cancelled
[2025-06-10] MEDS: FLUTICASONE/UMECLIDIN/VILANTER 100-62.5-25 MCG ELLIPTA 1 PUFF INHALATION (08:03)
[2025-06-10] MEDS: MONTELUKAST SODIUM 10 MG TABLET PO (09:29)
[2025-06-10] MEDS: AMIODARONE HCL 200 MG TABLET PO (09:29)
[2025-06-10] MEDS: ASPIRIN 325 MG ENTERIC TABLET PO (09:29)
[2025-06-10] MEDS: METOPROLOL TARTRATE 50 MG TAB 150 MG PO ×2 (09:29→21:16)
[2025-06-10] MEDS: PANTOPRAZOLE 40 MG TABLET PO (09:29)
[2025-06-10] MEDS: TOPIRAMATE 100 MG TABLET 200 MG PO ×2 (09:30→17:51)
[2025-06-10] MEDS: FUROSEMIDE 40 MG TABLET PO ×2 (09:30→17:52)
[2025-06-10] MEDS: LORATADINE 10 MG TABLET PO (09:30)
[2025-06-10] MEDS: FERROUS SULFATE 325 MG TABLET BY MOUTH ×2 (09:30→17:52)
[2025-06-10] MEDS: AZELASTINE HCL NASAL 0.1% 137 MCG/SPR 30 ML BTL 1 SPRAY NASAL ×2 (09:30→20:42)
[2025-06-10] MEDS: FLUTICASONE PROPIONATE 0.05% NA SPR 16 GM BTL (*BKC) 1 SPRAY NASAL ×2 (09:30→17:53)
[2025-06-10] MEDS: ENOXAPARIN 40 MG/0.4 ML SYRINGE SUB-Q (09:30)
[2025-06-10] MEDS: POTASSIUM CHLORIDE 20 MEQ PACKET (FOR LIQUID) PO (09:30)
--- NOTE | 2025-06-10 14:08 | P.PNIM_ITS ---
Progress Note: A&P Assessment and Plan (1) Acute on chronic congestive heart failure: Code(s): I50.9 - Heart failure, unspecified Status: Chronic (2) Atrial flutter with rapid ventricular response: Code(s): I48.92 - Unspecified atrial flutter Status: Acute (3) Chronic kidney disease, stage 3: Code(s): N18.30 - Chronic kidney disease, stage 3 unspecified Status: Acute (4) Chronic obstructive pulmonary disease: Code(s): J44.9 - Chronic obstructive pulmonary disease, unspecified Status: Chronic (5) Acute on chronic respiratory failure with hypoxia and hypercapnia: Code(s): J96.21 - Acute and chronic respiratory failure with hypoxia; J96.22 - Acute and chronic respiratory failure with hypercapnia Status: Acute (6) Hypertension: Code(s): I10 - Essential (primary) hypertension Status: Acute (7) Diastolic dysfunction: Code(s): I51.89 - Other ill-defined heart diseases Status: Acute (8) Elevated d-dimer: Code(s): R79.89 - Other specified abnormal findings of blood chemistry Status: Acute (9) Restless leg syndrome: Code(s): G25.81 - Restless legs syndrome Status: Acute (10) Tobacco use: Code(s): Z72.0 - Tobacco use Status: Acute Plan This is a 65-year-old female who presents to the ER with shortness of breath sleepiness and fatigue. She was recently admitted for CHF exacerbation. She also had a flutter with RVR at that time. In the ED she was noted to be in respiratory distress with expiratory wheezing tachycardic in 120s. Laboratory study showed WBC of 13.1 hemoglobin of 10.4 platelet count of 314. Chem panel showed sodium 139 potassium 4.8 chloride 99 bicarbonate 37 BUN 24 creatinine 1.53 blood glucose 132. Kidney function stable. Lactic acid normal. Mag was normal. Viral swab was negative. EKG showed atrial flutter with rate of 117. Troponin negative. BNP elevated nearly 3000. Chest x-ray showed bilateral lower lobe infiltrates. D-dimer was elevated at 1.22. CTA was obtained which showed no PE but showed large right pleural effusion with interstitial edema. ABG showed 7.27/67/80/31. She was placed on a BiPAP due to hypercapnia. She had been started on Rocephin azithromycin and vancomycin for pneumonia for hospital-acquired pathogen. She received a dose of IV Lasix in the ED and nebulizer treatment. She is more alert since then. She is admitted to the hospital for further treatment. Acute on chronic hypoxic hypercapnic respiratory failure. ABG with improvement and hence taken off BiPAP and on oxygen via nasal cannula which is chronic and stable. Continue BiPAP at night home setting Right pleural effusion refused thoracentesis last admission. Agreeable and underwent thoracentesis 06/09/2025 with removal of 600 cc of pleural fluid.. Likely related to CHF exacerbation Acute on chronic congestive heart failure. Diastolic. Recent echo with EF 60- 65% moderate pulmonary hypertension mild MR mild TR Atrial flutter/fibrillation with RVR resume amiodarone and metoprolol. Cardiology consult. Chads Vasc score 3. On aspirin as she refused anticoagulation History of rectus sheath hematoma while on Eliquis refused anticoagulation CKD stage 3 Hypertension COPD Chronic respiratory failure on home oxygen 4 L DVT prophylaxis Lovenox Code status full code GERD Subjective Date/time seen: 06/10/25 14:08 Interval history: No overnight events. Breathing has improved. Reports no chest pain. Did not use BiPAP last night. She is going to get her home unit tonight. Review of Systems Review of Systems: All systems reviewed & are unremarkable except as noted in HPI and below Exam Narrative: GENERAL: The patient is well developed, not in acute distress currently on BiPAP HEENT: Nonicteric sclerae, PERRLA, EOMI. CHEST: Chest wall is nontender. HEART: Tachycardic, regular rhythm without murmur, rubs, or gallops LUNGS: Diminished breath sounds bilaterally. no respiratory distress mild crackles in the bases ABDOMEN: Soft, positive bowel sounds, non-tender, no organomegaly. SKIN: No rash, no excessive bruising, petechiae, or purpura. NEUROLOGIC: Cranial nerves II-XII intact, alert and oriented x 3, no gross motor deficits EXTREMITIES: Bilateral trace edema, no cyanosis or clubbing Objective Data Vital Signs Vital Signs: Vital Signs - 24 hr 06/09/25 14:54 06/09/25 16:00 06/09/25 16:00 Temperature Pulse Rate 123 H 123 H 122 H Respiratory Rate 17 Blood Pressure 131/81 Pulse Oximetry 97 Oxygen Delivery Oxygen Flow Rate 06/09/25 16:00 06/09/25 16:37 06/09/25 20:00 Temperature 98.1 F Pulse Rate 122 H 124 H 123 H Respiratory Rate 17 20 21 H Blood Pressure 105/72 Pulse Oximetry 98 95 91 Oxygen Delivery Nasal Cannula Nasal Cannula Oxygen Flow Rate 2 2 06/09/25 20:00 06/09/25 20:00 06/09/25 20:30 Temperature Pulse Rate 123 H 124 H Respiratory Rate Blood Pressure Pulse Oximetry 92 92 Oxygen Delivery Nasal Cannula Nasal Cannula Oxygen Flow Rate 2 2 06/09/25 20:43 06/09/25 22:00 06/09/25 23:30 Temperature Pulse Rate 123 H 118 H Respiratory Rate Blood Pressure Pulse Oximetry 94 Oxygen Delivery Nasal Cannula Oxygen Flow Rate 2 06/10/25 00:00 06/10/25 00:00 06/10/25 01:28 Temperature 98.0 F 97.8 F Pulse Rate 114 H 118 H 117 H Respiratory Rate 25 H 23 H Blood Pressure 116/79 135/78 Pulse Oximetry 92 96 Oxygen Delivery Oxygen Flow Rate 06/10/25 01:29 06/10/25 02:00 06/10/25 04:00 Temperature Pulse Rate 116 H Respiratory Rate Blood Pressure Pulse Oximetry 96 99 Oxygen Delivery Nasal Cannula Nasal Cannula Oxygen Flow Rate 3 3 06/10/25 04:00 06/10/25 04:00 06/10/25 06:00 Temperature 97.5 F L Pulse Rate 116 H 117 H 116 H Respiratory Rate 19 Blood Pressure 141/74 H Pulse Oximetry 95 Oxygen Delivery Oxygen Flow Rate 06/10/25 07:51 06/10/25 08:00 06/10/25 08:04 Temperature 98.3 F Pulse Rate 117 H 117 H 112 H Respiratory Rate 22 H 20 Blood Pressure 138/88 Pulse Oximetry 96 Oxygen Delivery Oxygen Flow Rate 06/10/25 09:29 06/10/25 09:29 06/10/25 10:00 Temperature Pulse Rate 115 H 115 H 116 H Respiratory Rate Blood Pressure Pulse Oximetry Oxygen Delivery Oxygen Flow Rate 06/10/25 11:30 06/10/25 12:00 Temperature 97.9 F Pulse Rate 120 H 118 H Respiratory Rate 22 H Blood Pressure 136/85 Pulse Oximetry 98 Oxygen Delivery Oxygen Flow Rate Intake/Output Intake/Output: Intake & Output 06/07/25 06/08/25 06/09/2506/10/25 23:59 23:59 23:59 23:59 Intake Total 1280 1500 Output Total 2400 3715 [facility] -[id number] -49 Meds/Results Medications: Active Medications Generic Name Dose Route Start Last Admin Trade Name Freq PRN Reason Stop Dose Admin Acetaminophen 650 mg 06/09/25 01:33 Acetaminophen 325 Mg Tablet PO Q4H PRN Mild Pain (1-3) or Fever Amiodarone HCl 200 mg 06/09/25 10:45 06/10/25 09:29 Amiodarone Hcl 200 Mg Tablet PO 200 mg DAILY YODIT Administration Aspirin 325 mg 06/09/25 10:45 06/10/25 09:29 Aspirin 325 Mg Enteric Tablet PO 325 mg QAM YODIT Administration Azelastine HCl 1 spray 06/09/25 21:00 06/10/25 09:30 Azelastine Hcl Nasal 0.1% 137 Mcg/Spr 30 Ml Btl NASAL 1 spray Q12HR YODIT Administration Benzonatate 200 mg 06/09/25 10:43 Benzonatate 100 Mg Capsule PO BID PRN cough Duloxetine HCl 20 mg 06/09/25 10:45 06/10/25 09:30 Duloxetine Hcl 20 Mg Capsule.Dr PO 20 mg DAILY YODIT Administration Enoxaparin Sodium 40 mg 06/09/25 10:45 06/10/25 09:30 Enoxaparin 40 Mg/0.4 Ml Syringe SUB-Q 40 mg DAILY YODIT Administration Ferrous Sulfate 325 mg 06/09/25 17:00 06/10/25 09:30 Ferrous Sulfate 325 Mg Tablet BY MOUTH 325 mg BID YODIT Administration Fluticasone Propionate 1 spray 06/09/25 17:00 06/10/25 09:30 Fluticasone Propionate 0.05% Na Spr 16 Gm Btl (*Bkc) NASAL 1 spray BID YODIT Administration Fluticasone/Umeclidinium/Vilanterol 1 puff 06/09/25 10:45 06/10/25 08:03 Fluticasone/Umeclidin/Vilanter 100-62.5-25 Mcg Ellipta INHALATION 1 puff DAILY YODIT Administration Furosemide 40 mg 06/10/25 09:00 06/10/25 09:30 Furosemide 40 Mg Tablet PO 40 mg BID YODIT Administration Ceftriaxone Sodium 1 gm/ 50 mls @ 100 mls/hr 06/10/25 00:00 10/18/25 00:24 Sodium Chloride IVPB Infused Q24H YODIT Infusion Azithromycin 500 mg/ Sodium 250 mls @ 250 mls/hr 06/10/25 00:00 06/10/25 01:22 Chloride IVPB 06/13/25 00:59 Infused Q24H YODIT Infusion Vancomycin HCl 1,500 mg in 500 mls @ 250 mls/hr 06/10/25 01:00 06/10/25 03:38 Vancomycin 1,500 Mg/Ns 500 Ml IVPB Infused Q24H YODIT Infusion Loratadine 10 mg 06/09/25 10:45 06/10/25 09:30 Loratadine 10 Mg Tablet PO 10 mg DAILY YODIT Administration Metoprolol Tartrate 150 mg 06/09/25 21:00 06/10/25 09:29 Metoprolol Tartrate 50 Mg Tab PO 150 mg Q12HR YODIT Administration Montelukast Sodium 10 mg 06/09/25 10:45 06/10/25 09:29 Montelukast Sodium 10 Mg Tablet PO 10 mg DAILY YODIT Administration Ondansetron HCl 4 mg 06/09/25 01:33 Ondansetron Inj 4 Mg/2 Ml Vial IV PUSH Q4H PRN Nausea Pantoprazole Sodium 40 mg 06/09/25 10:45 06/10/25 09:29 Pantoprazole 40 Mg Tablet PO 40 mg QAM YODIT Administration Potassium Chloride 20 meq 06/09/25 10:45 06/10/25 09:30 Potassium Chloride 20 Meq Packet (For Liquid) PO 20 meq DAILY YODIT Administration Topiramate 200 mg 06/09/25 17:00 06/10/25 09:30 Topiramate 100 Mg Tablet PO 200 mg BID YODIT Administration Radiology Results: ITS Impressions Chest CTA 06/09/25 07:45 IMPRESSION: 1. No PE. No significant change from 2 weeks prior. 2. Large right pleural effusion, and interstitial pulmonary edema. Chest X-Ray 06/09/25 15:18 IMPRESSION: 1. Resolution of prior right pleural effusion with no pneumothorax post thoracentesis. 2. Mild increased initial pattern at the bilateral lung bases and favor mild pulmonary edema and/or atelectasis over pneumonia. Thoracentesis Ultrasound 06/09/25 15:59 IMPRESSION: 1. Successful ultrasound-guided thoracentesis yielding 600 mL of tex-colored fluid. Labs Labs: Laboratory Results - last 24 hr 10/17/25 10/18/25 14:26 03:53 Creatinine 1.24 H Estim Creat Clear Calc 55 Estimated GFR 43 L Pleural Fluid Source Pleural fluid Pleural Color Yellow Pleural Appearance Cloudy Pleural pH 7.441 Pleural RBC 5000 Pleural Nuc Cells 1578 H Pleural Neutrophils 2 Pleural Lymphocytes 21 Pleural Monocytes 1 Pleural Macrophages 76 Pleural Total Protein Cancelled Hospitalist MIPS Advance Care Plan I have confirmed that the patient's Advanced Care Plan is present, code status is documented, or surrogate decision maker is listed in patient medical record.: Yes Medication Reconciliation I have utilized all available resources to obtain, update and review the patients current medications (includes all prescriptions, OTC, herbals, cannabis, and nutritional supplements).: Yes
--- NOTE | 2025-06-10 21:25 | PC.NURSE ---
Long discussion with pt regarding current medications. Pt upset that home doses of seroquel, requip, and trazodone have not been reordered. Discussed with UQE Samuels. After reviewing pt's chart, a one time dose of trazodone was ordered and administered. QUE Samuels unable to restart other medications due to possible interaction (QT prolongation) with amiodarone and azithromycin. Pt verbalized understanding of explaination.
[2025-06-10] MEDS: cefTRIAXone 1 GM in SODIUM CHLORIDE 0.9% IV 50 ML 100 ML IVPB (23:47)
[2025-06-11] VITALS (22 sets, daily range): BP systolic 106–143; BP diastolic 57–89; PULSE 116–123; RESP 17–22; TEMP 36.4–36.9; O2SAT 94–99
[2025-06-11] MEDS: AZITHROMYCIN IV 500 MG in SODIUM CHLORIDE 0.9% IV 250 ML IVPB (00:16)
[2025-06-11 00:51] LABS: Hematocrit 37.6 % (37.0-47.0); Hemoglobin 10.4 g/dL (12.0-15.0); Immature Granulocyte Percent A 0.4 % (0-0.5); Lymphocytes Absolute Auto 1.67 K/mm3 (0.9-3.2); Mean Corpuscular HGB Conc 27.7 g/dl (32-36); Mean Corpuscular Hemoglobin 24.2 pg (26-34); Mean Corpuscular Volume 87.4 fl (80-100); Nucleated Red Blood Cells Absolute Auto 0.000 K/mm3 (0.0-0.012); Nucleated Red Blood Cells Perc 0.0 % (0.0-0.2); Platelet Count Result 252 k/mm3 (150-375); Red Blood Count 4.30 M/mm3 (4.2-5.4); White Blood Count 10.0 K/mm3 (4.5-10.0)
[2025-06-11 01:02] LABS: Alanine Aminotransferase 11 U/L (6-35); Albumin Level 3.7 g/dL (3.5-5.1); Alkaline Phosphatase 97 U/L (38-126); Anion Gap 6 mmol/L (4-12); Aspartate Amino Transferase 12 U/L (14-36); Bilirubin,Total 0.5 mg/dL (0.2-1.3); Blood Urea Nitrogen 20 mg/dL (7-17); Calcium 8.9 mg/dL (8.4-10.2); Carbon Dioxide 36 mmol/L (22-30); Chloride 98 mmol/L (98-107); Estimated CRCL calculation 46 ml/min; Estimated Glomerular Filt Rate 35; Glucose 110 mg/dL (65-110); Magnesium 2.0 mg/dL (1.6-2.3); Potassium 3.4 mmol/L (3.4-5.0); Sodium 140 mmol/L (137-145); Total Protein 7.1 g/dL (6.3-8.2)
[2025-06-11 01:13] LABS: Anisocytosis 1+; Microcytosis 1+ (NORMAL); Schistocytes None Seen
[2025-06-11] MEDS: VANCOMYCIN 1,750 MG/NS 500 ML 1,750 MG/500 ML BAG 250 MG IVPB (01:42)
[2025-06-11] MEDS: FLUTICASONE/UMECLIDIN/VILANTER 100-62.5-25 MCG ELLIPTA 1 PUFF INHALATION (07:14)
[2025-06-11] MEDS: METOPROLOL TARTRATE 50 MG TAB 150 MG PO ×2 (09:24→21:06)
[2025-06-11] MEDS: PANTOPRAZOLE 40 MG TABLET PO (09:24)
[2025-06-11] MEDS: POTASSIUM CHLORIDE 20 MEQ PACKET (FOR LIQUID) PO (09:24)
[2025-06-11] MEDS: LORATADINE 10 MG TABLET PO (09:24)
[2025-06-11] MEDS: MONTELUKAST SODIUM 10 MG TABLET PO (09:25)
[2025-06-11] MEDS: AMIODARONE HCL 200 MG TABLET PO (09:25)
[2025-06-11] MEDS: ASPIRIN 325 MG ENTERIC TABLET PO (09:25)
[2025-06-11] MEDS: FERROUS SULFATE 325 MG TABLET BY MOUTH ×2 (09:25→17:19)
[2025-06-11] MEDS: FUROSEMIDE 40 MG TABLET PO ×2 (09:25→17:19)
[2025-06-11] MEDS: TOPIRAMATE 100 MG TABLET 200 MG PO ×2 (09:25→17:19)
[2025-06-11] MEDS: FLUTICASONE PROPIONATE 0.05% NA SPR 16 GM BTL (*BKC) 1 SPRAY NASAL ×2 (09:26→17:19)
[2025-06-11] MEDS: AZELASTINE HCL NASAL 0.1% 137 MCG/SPR 30 ML BTL 1 SPRAY NASAL (09:26)
[2025-06-11] MEDS: ENOXAPARIN 40 MG/0.4 ML SYRINGE SUB-Q (09:27)
--- NOTE | 2025-06-11 12:55 | P.PNIM_ITS ---
Progress Note: A&P Assessment and Plan (1) Acute on chronic congestive heart failure: Code(s): I50.9 - Heart failure, unspecified Status: Chronic (2) Atrial flutter with rapid ventricular response: Code(s): I48.92 - Unspecified atrial flutter Status: Acute (3) Chronic kidney disease, stage 3: Code(s): N18.30 - Chronic kidney disease, stage 3 unspecified Status: Acute (4) Chronic obstructive pulmonary disease: Code(s): J44.9 - Chronic obstructive pulmonary disease, unspecified Status: Chronic (5) Acute on chronic respiratory failure with hypoxia and hypercapnia: Code(s): J96.21 - Acute and chronic respiratory failure with hypoxia; J96.22 - Acute and chronic respiratory failure with hypercapnia Status: Acute (6) Hypertension: Code(s): I10 - Essential (primary) hypertension Status: Acute (7) Diastolic dysfunction: Code(s): I51.89 - Other ill-defined heart diseases Status: Acute (8) Elevated d-dimer: Code(s): R79.89 - Other specified abnormal findings of blood chemistry Status: Acute (9) Restless leg syndrome: Code(s): G25.81 - Restless legs syndrome Status: Acute (10) Tobacco use: Code(s): Z72.0 - Tobacco use Status: Acute Plan This is a 65-year-old female who presents to the ER with shortness of breath sleepiness and fatigue. She was recently admitted for CHF exacerbation. She also had a flutter with RVR at that time. In the ED she was noted to be in respiratory distress with expiratory wheezing tachycardic in 120s. Laboratory study showed WBC of 13.1 hemoglobin of 10.4 platelet count of 314. Chem panel showed sodium 139 potassium 4.8 chloride 99 bicarbonate 37 BUN 24 creatinine 1.53 blood glucose 132. Kidney function stable. Lactic acid normal. Mag was normal. Viral swab was negative. EKG showed atrial flutter with rate of 117. Troponin negative. BNP elevated nearly 3000. Chest x-ray showed bilateral lower lobe infiltrates. D-dimer was elevated at 1.22. CTA was obtained which showed no PE but showed large right pleural effusion with interstitial edema. ABG showed 7.27/67/80/31. She was placed on a BiPAP due to hypercapnia. She had been started on Rocephin azithromycin and vancomycin for pneumonia for hospital-acquired pathogen. She received a dose of IV Lasix in the ED and nebulizer treatment. She is more alert since then. She is admitted to the hospital for further treatment. Acute on chronic hypoxic hypercapnic respiratory failure. ABG with improvement and hence taken off BiPAP and on oxygen via nasal cannula which is chronic and stable. Continue BiPAP at night home setting. Suspicion for pneumonia is less and hence will stop antibiotics. Right pleural effusion refused thoracentesis last admission. Agreeable and underwent thoracentesis 06/09/2025 with removal of 600 cc of pleural fluid.. Likely related to CHF exacerbation Acute on chronic congestive heart failure. Diastolic. Recent echo with EF 60- 65% moderate pulmonary hypertension mild MR mild TR Atrial flutter/fibrillation with RVR resume amiodarone and metoprolol. Cardiology consult. Chads Vasc score 3. On aspirin as she refused anticoagulation. Discussed cardioversion again however she refuses. Per Cardiology see has been chronically RVR. History of rectus sheath hematoma while on Eliquis refused anticoagulation CKD stage 3 Hypertension COPD Chronic respiratory failure on home oxygen 4 L DVT prophylaxis Lovenox Code status full code GERD Subjective Date/time seen: 06/11/25 12:55 Interval history: No overnight events. Breathing has improved. Reports no chest pain. Did not use BiPAP last night. She did not Get her unit from home. Heart rate remains elevated but has been the same. Discussed with Cardiology as well. Review of Systems Review of Systems: All systems reviewed & are unremarkable except as noted in HPI and below Exam Narrative: GENERAL: The patient is well developed, not in acute distress HEENT: Nonicteric sclerae, PERRLA, EOMI. CHEST: Chest wall is nontender. HEART: Tachycardic, regular rhythm without murmur, rubs, or gallops LUNGS: Diminished breath sounds bilaterally. no respiratory distress mild crackles in the bases ABDOMEN: Soft, positive bowel sounds, non-tender, no organomegaly. SKIN: No rash, no excessive bruising, petechiae, or purpura. NEUROLOGIC: Cranial nerves II-XII intact, alert and oriented x 3, no gross motor deficits EXTREMITIES: Bilateral trace edema, no cyanosis or clubbing Objective Data Vital Signs Vital Signs: Vital Signs - 24 hr 06/10/25 14:00 06/10/25 16:00 06/10/25 16:00 Temperature Pulse Rate 119 H 120 H Respiratory Rate Blood Pressure Pulse Oximetry 99 Oxygen Delivery Nasal Cannula Oxygen Flow Rate 3 06/10/25 16:06 06/10/25 18:00 06/10/25 20:00 Temperature 97.4 F L 98.3 F Pulse Rate 120 H 120 H 120 H Respiratory Rate 20 19 Blood Pressure 148/86 H 143/93 H Pulse Oximetry 99 99 Oxygen Delivery Oxygen Flow Rate 06/10/25 20:00 06/10/25 20:00 06/10/25 21:16 Temperature Pulse Rate 120 H 122 H Respiratory Rate Blood Pressure Pulse Oximetry 99 Oxygen Delivery Nasal Cannula Oxygen Flow Rate 3 06/10/25 22:00 06/10/25 23:49 06/11/25 00:00 Temperature 98.1 F Pulse Rate 120 H 119 H Respiratory Rate 14 Blood Pressure 147/79 H Pulse Oximetry 97 97 Oxygen Delivery Nasal Cannula Oxygen Flow Rate 3 06/11/25 00:00 06/11/25 02:00 06/11/25 03:39 Temperature 98.2 F Pulse Rate 120 H 116 H 120 H Respiratory Rate 17 Blood Pressure 119/70 Pulse Oximetry 96 Oxygen Delivery Oxygen Flow Rate 06/11/25 04:00 06/11/25 04:00 06/11/25 06:00 Temperature Pulse Rate 120 H 117 H Respiratory Rate Blood Pressure Pulse Oximetry 96 Oxygen Delivery Nasal Cannula Oxygen Flow Rate 3 06/11/25 07:14 06/11/25 07:59 06/11/25 08:00 Temperature 98.5 F Pulse Rate 119 H 120 H Respiratory Rate 20 20 Blood Pressure 124/79 Pulse Oximetry 97 97 Oxygen Delivery Nasal Cannula Oxygen Flow Rate 3 06/11/25 09:24 06/11/25 09:25 06/11/25 11:53 Temperature 98.0 F Pulse Rate 123 H 123 H 121 H Respiratory Rate 22 H Blood Pressure 138/89 Pulse Oximetry 97 Oxygen Delivery Oxygen Flow Rate Intake/Output Intake/Output: Intake & Output 06/08/25 06/09/25 06/10/25 06/11/25 23:59 23:59 23:59 23:59 Intake Total 1280 2800 1340 Output Total 2400 4025 1500 Balance -1120 -1225 -160 Meds/Results Medications: Active Medications Generic Name Dose Route Start Last Admin Trade Name Freq PRN Reason Stop Dose Admin Acetaminophen 650 mg 06/09/25 01:33 Acetaminophen 325 Mg Tablet PO Q4H PRN Mild Pain (1-3) or Fever Amiodarone HCl 200 mg 06/09/25 10:45 06/11/25 09:25 Amiodarone Hcl 200 Mg Tablet PO 200 mg DAILY YODIT Administration Aspirin 325 mg 06/09/25 10:45 06/11/25 09:25 Aspirin 325 Mg Enteric Tablet PO 325 mg QAM YODIT Administration Azelastine HCl 1 spray 06/09/25 21:00 06/11/25 09:26 Azelastine Hcl Nasal 0.1% 137 Mcg/Spr 30 Ml Btl NASAL 1 spray Q12HR YODIT Administration Benzonatate 200 mg 06/09/25 10:43 Benzonatate 100 Mg Capsule PO BID PRN cough Duloxetine HCl 20 mg 06/09/25 10:45 06/11/25 09:25 Duloxetine Hcl 20 Mg Capsule.Dr PO 20 mg DAILY YODIT Administration Enoxaparin Sodium 40 mg 06/09/25 10:45 06/11/25 09:27 Enoxaparin 40 Mg/0.4 Ml Syringe SUB-Q 40 mg DAILY YODIT Administration Ferrous Sulfate 325 mg 06/09/25 17:00 06/11/25 09:25 Ferrous Sulfate 325 Mg Tablet BY MOUTH 325 mg BID YODIT Administration Fluticasone Propionate 1 spray 06/09/25 17:00 06/11/25 09:26 Fluticasone Propionate 0.05% Na Spr 16 Gm Btl (*Bkc) NASAL 1 spray BID YODIT Administration Fluticasone/Umeclidinium/Vilanterol 1 puff 06/09/25 10:45 06/11/25 07:14 Fluticasone/Umeclidin/Vilanter 100-62.5-25 Mcg Ellipta INHALATION 1 puff DAILY YODIT Administration Furosemide 40 mg 06/10/25 09:00 06/11/25 09:25 Furosemide 40 Mg Tablet PO 40 mg BID YODIT Administration Ceftriaxone Sodium 1 gm/ 50 mls @ 100 mls/hr 06/10/25 00:00 06/11/25 00:17 Sodium Chloride IVPB Infused Q24H YODIT Infusion Azithromycin 500 mg/ Sodium 250 mls @ 250 mls/hr 06/10/25 00:00 06/11/25 01:15 Chloride IVPB 10/21/25 00:59 Infused Q24H YODIT Infusion Vancomycin HCl 1,750 mg in 500 mls @ 250 mls/hr 06/11/25 02:00 06/11/25 03:42 Vancomycin 1,750 Mg/Ns 500 Ml IVPB Infused Q24H YODIT Infusion Loratadine 10 mg 06/09/25 10:45 06/11/25 09:24 Loratadine 10 Mg Tablet PO 10 mg DAILY YODIT Administration Metoprolol Tartrate 150 mg 06/09/25 21:00 06/11/25 09:24 Metoprolol Tartrate 50 Mg Tab PO 150 mg Q12HR YODIT Administration Montelukast Sodium 10 mg 06/09/25 10:45 06/11/25 09:25 Montelukast Sodium 10 Mg Tablet PO 10 mg DAILY YODIT Administration Ondansetron HCl 4 mg 06/09/25 01:33 Ondansetron Inj 4 Mg/2 Ml Vial IV PUSH Q4H PRN Nausea Pantoprazole Sodium 40 mg 06/09/25 10:45 06/11/25 09:24 Pantoprazole 40 Mg Tablet PO 40 mg QAM YODIT Administration Potassium Chloride 20 meq 06/09/25 10:45 06/11/25 09:24 Potassium Chloride 20 Meq Packet (For Liquid) PO 20 meq DAILY YODIT Administration Topiramate 200 mg 06/09/25 17:00 06/11/25 09:25 Topiramate 100 Mg Tablet PO 200 mg BID YODIT Administration Radiology Results: ITS Impressions Chest CTA 06/09/25 07:45 IMPRESSION: 1. No PE. No significant change from 2 weeks prior. 2. Large right pleural effusion, and interstitial pulmonary edema. Chest X-Ray 06/09/25 15:18 IMPRESSION: 1. Resolution of prior right pleural effusion with no pneumothorax post thoracentesis. 2. Mild increased initial pattern at the bilateral lung bases and favor mild pulmonary edema and/or atelectasis over pneumonia. Thoracentesis Ultrasound 06/09/25 15:59 IMPRESSION: 1. Successful ultrasound-guided thoracentesis yielding 600 mL of tex-colored fluid. Labs Labs: Laboratory Results - last 24 hr 06/09/25 06/11/25 14:26 00:43 WBC 10.0 RBC 4.30 Hgb 10.4 L Hct 37.6 MCV 87.4 MCH 24.2 L MCHC 27.7 L RDW 16.1 H Plt Count 252 MPV 9.5 Immature Gran % (Auto) 0.4 Neut % (Auto) 72.4 Lymph % (Auto) 16.7 L [place] % (Auto) 7.1 Eos % (Auto) 2.8 Baso % (Auto) 0.6 Lymph # (Auto) 1.67 [place] # (Auto) 0.7 H Eos # (Auto) 0.3 Baso # (Auto) 0.1 Abs Immat Gran (auto) 0.04 H Absolute Neuts (auto) 7.2 H Absolute Nucleated RBC 0.000 Band Neutrophils % Not Reportable Nucleated RBC % 0.0 Platelet Estimate Adequate Anisocytosis 1+ Microcytosis 1+ Schistocytes None seen Sodium 140 Potassium 3.4 Chloride 98 Carbon Dioxide 36 H Anion Gap 6 BUN 20 H Creatinine 1.48 H Estim Creat Clear Calc 46 Estimated GFR 35 L Glucose 110 Calcium 8.9 Magnesium 2.0 Total Bilirubin 0.5 AST 12 L ALT 11 Alkaline Phosphatase 97 Total Protein 7.1 Albumin 3.7 Fluid Total Protein 2.9 Vancomycin Trough 13.9 Hospitalist MIPS Advance Care Plan I have confirmed that the patient's Advanced Care Plan is present, code status is documented, or surrogate decision maker is listed in patient medical record.: Yes Medication Reconciliation I have utilized all available resources to obtain, update and review the patients current medications (includes all prescriptions, OTC, herbals, cannabis, and nutritional supplements).: Yes
[2025-06-12] VITALS (10 sets, daily range): BP systolic 118; BP diastolic 65; PULSE 100–121; RESP 20; TEMP 36.4; O2SAT 95
[2025-06-12] MEDS: VANCOMYCIN 1,750 MG/NS 500 ML 1,750 MG/500 ML BAG 250 MG IVPB (02:10)
[2025-06-12 04:27] LABS: Hematocrit 34.6 % (37.0-47.0); Hemoglobin 9.7 g/dL (12.0-15.0); Immature Granulocyte Percent A 0.4 % (0-0.5); Lymphocytes Absolute Auto 2.03 K/mm3 (0.9-3.2); Mean Corpuscular HGB Conc 28.0 g/dl (32-36); Mean Corpuscular Hemoglobin 24.3 pg (26-34); Mean Corpuscular Volume 86.5 fl (80-100); Nucleated Red Blood Cells Absolute Auto 0.000 K/mm3 (0.0-0.012); Nucleated Red Blood Cells Perc 0.0 % (0.0-0.2); Platelet Count Result 249 k/mm3 (150-375); Red Blood Count 4.00 M/mm3 (4.2-5.4); White Blood Count 7.5 K/mm3 (4.5-10.0)
[2025-06-12 04:48] LABS: Alanine Aminotransferase 10 U/L (6-35); Albumin Level 3.3 g/dL (3.5-5.1); Alkaline Phosphatase 82 U/L (38-126); Anion Gap 4 mmol/L (4-12); Aspartate Amino Transferase 14 U/L (14-36); Bilirubin,Total 0.5 mg/dL (0.2-1.3); Blood Urea Nitrogen 18 mg/dL (7-17); Calcium 8.6 mg/dL (8.4-10.2); Carbon Dioxide 37 mmol/L (22-30); Chloride 99 mmol/L (98-107); Estimated CRCL calculation 47 ml/min; Estimated Glomerular Filt Rate 36; Glucose 104 mg/dL (65-110); Magnesium 2.1 mg/dL (1.6-2.3); Potassium 3.5 mmol/L (3.4-5.0); Sodium 140 mmol/L (137-145); Total Protein 6.4 g/dL (6.3-8.2)
[2025-06-12] MEDS: FLUTICASONE/UMECLIDIN/VILANTER 100-62.5-25 MCG ELLIPTA 1 PUFF INHALATION (07:54)
[2025-06-12] MEDS: POTASSIUM CHLORIDE 20 MEQ PACKET (FOR LIQUID) PO (09:41)
[2025-06-12] MEDS: ENOXAPARIN 40 MG/0.4 ML SYRINGE SUB-Q (09:41)
[2025-06-12] MEDS: METOPROLOL TARTRATE 50 MG TAB 150 MG PO (09:42)
[2025-06-12] MEDS: LORATADINE 10 MG TABLET PO (09:42)
[2025-06-12] MEDS: FERROUS SULFATE 325 MG TABLET BY MOUTH (09:42)
[2025-06-12] MEDS: MONTELUKAST SODIUM 10 MG TABLET PO (09:42)
[2025-06-12] MEDS: ASPIRIN 325 MG ENTERIC TABLET PO (09:42)
[2025-06-12] MEDS: FUROSEMIDE 40 MG TABLET PO (09:42)
[2025-06-12] MEDS: AMIODARONE HCL 200 MG TABLET PO (09:42)
[2025-06-12] MEDS: AZELASTINE HCL NASAL 0.1% 137 MCG/SPR 30 ML BTL 1 SPRAY NASAL (09:43)
[2025-06-12] MEDS: PANTOPRAZOLE 40 MG TABLET PO (09:43)
[2025-06-12] MEDS: FLUTICASONE PROPIONATE 0.05% NA SPR 16 GM BTL (*BKC) 1 SPRAY NASAL (09:43)
--- NOTE | 2025-06-12 12:07 | PM.DS ---
DS: Admitting Diagnosis Discharge Date 06/12/2025 Admitting Diagnosis Shortness of breath DS: Discharge Diagnosis Discharge Diagnosis (1) Acute on chronic congestive heart failure: Code(s): I50.9 - Heart failure, unspecified Status: Chronic (2) Atrial flutter with rapid ventricular response: Code(s): I48.92 - Unspecified atrial flutter Status: Acute (3) Chronic kidney disease, stage 3: Code(s): N18.30 - Chronic kidney disease, stage 3 unspecified Status: Acute (4) Chronic obstructive pulmonary disease: Code(s): J44.9 - Chronic obstructive pulmonary disease, unspecified Status: Chronic (5) Acute on chronic respiratory failure with hypoxia and hypercapnia: Code(s): J96.21 - Acute and chronic respiratory failure with hypoxia; J96.22 - Acute and chronic respiratory failure with hypercapnia Status: Acute (6) Hypertension: Code(s): I10 - Essential (primary) hypertension Status: Acute (7) Diastolic dysfunction: Code(s): I51.89 - Other ill-defined heart diseases Status: Acute (8) Elevated d-dimer: Code(s): R79.89 - Other specified abnormal findings of blood chemistry Status: Acute (9) Restless leg syndrome: Code(s): G25.81 - Restless legs syndrome Status: Acute (10) Tobacco use: Code(s): Z72.0 - Tobacco use Status: Acute DS: Summary Hospital Course Hospital Course: This is a 65-year-old female who presents to the ER with shortness of breath sleepiness and fatigue. She was recently admitted for CHF exacerbation. She also had a flutter with RVR at that time. In the ED she was noted to be in respiratory distress with expiratory wheezing tachycardic in 120s. Laboratory study showed WBC of 13.1 hemoglobin of 10.4 platelet count of 314. Chem panel showed sodium 139 potassium 4.8 chloride 99 bicarbonate 37 BUN 24 creatinine 1.53 blood glucose 132. Kidney function stable. Lactic acid normal. Mag was normal. Viral swab was negative. EKG showed atrial flutter with rate of 117. Troponin negative. BNP elevated nearly 3000. Chest x-ray showed bilateral lower lobe infiltrates. D-dimer was elevated at 1.22. CTA was obtained which showed no PE but showed large right pleural effusion with interstitial edema. ABG showed 7.27/67/80/31. She was placed on a BiPAP due to hypercapnia. She had been started on Rocephin azithromycin and vancomycin for pneumonia for hospital-acquired pathogen. She received a dose of IV Lasix in the ED and nebulizer treatment. She is more alert since then. She is admitted to the hospital for further treatment. Acute on chronic hypoxic hypercapnic respiratory failure. ABG with improvement and hence taken off BiPAP and on oxygen via nasal cannula which is chronic and stable. Continue BiPAP at night home setting. Suspicion for pneumonia is less and hence antibiotics were stopped. Right pleural effusion refused thoracentesis last admission. Agreeable and underwent thoracentesis 06/09/2025 with removal of 600 cc of pleural fluid.. Likely related to CHF exacerbation. Lasix increased to 40 mg twice a day Acute on chronic congestive heart failure. Diastolic. Recent echo with EF 60-65% moderate pulmonary hypertension mild MR mild TR. Increase Lasix to 40 mg twice a day at discharge Atrial flutter/fibrillation with RVR resume amiodarone and metoprolol. Cardiology consult. Chads Vasc score 3. On aspirin as she refused anticoagulation. Discussed cardioversion again however she refuses. Per Cardiology see has been chronically RVR. She has chronically elevated heart rate in 1 teens to 120s refuses cardioversion. History of rectus sheath hematoma while on Eliquis refused anticoagulation CKD stage 3 Hypertension COPD Chronic respiratory failure on home oxygen 4 L DVT prophylaxis Lovenox Code status full code GERD Time Spent with Patient Time attestation: Total time spent providing and/or coordinating discharge services: Exam Narrative: GENERAL: The patient is well developed, not in acute distress HEENT: Nonicteric sclerae, PERRLA, EOMI. CHEST: Chest wall is nontender. HEART: Tachycardic, regular rhythm without murmur, rubs, or gallops LUNGS: Diminished breath sounds bilaterally. no respiratory distress mild crackles in the bases ABDOMEN: Soft, positive bowel sounds, non-tender, no organomegaly. SKIN: No rash, no excessive bruising, petechiae, or purpura. NEUROLOGIC: Cranial nerves II-XII intact, alert and oriented x 3, no gross motor deficits EXTREMITIES: Bilateral trace edema, no cyanosis or clubbing DS: Data Data Completed and Pending Labs on day of discharge: Labs from last 24 hours 06/12/25 03:45 WBC 7.5 RBC 4.00 L Hgb 9.7 L Hct 34.6 L MCV 86.5 MCH 24.3 L MCHC 28.0 L RDW 16.0 H Plt Count 249 MPV 9.6 Immature Gran % (Auto) 0.4 Neut % (Auto) 58.8 Lymph % (Auto) 27.0 [place] % (Auto) 9.4 H Eos % (Auto) 3.7 Baso % (Auto) 0.7 Lymph # (Auto) 2.03 [place] # (Auto) 0.7 H Eos # (Auto) 0.3 Baso # (Auto) 0.1 Abs Immat Gran (auto) 0.03 Absolute Neuts (auto) 4.4 Absolute Nucleated RBC 0.000 Nucleated RBC % 0.0 Sodium 140 Potassium 3.5 Chloride 99 Carbon Dioxide 37 H Anion Gap 4 BUN 18 H Creatinine 1.46 H Estim Creat Clear Calc 47 Estimated GFR 36 L Glucose 104 Calcium 8.6 Magnesium 2.1 Total Bilirubin 0.5 AST 14 ALT 10 Alkaline Phosphatase 82 Total Protein 6.4 Albumin 3.3 L Preliminary micro results at discharge 06/08/25 23:34 Blood Culture - Preliminary Blood 06/08/25 23:16 Blood Culture - Preliminary Blood 06/09/25 14:26 Sterile Body Fluid Culture - Preliminary Pleural Fluid Imaging Radiologist's impression: ITS Impressions Chest X-Ray 06/08/25 22:26 IMPRESSION: Bilateral lower lobe infiltrates. Chest CTA 06/09/25 07:45 IMPRESSION: 1. No PE. No significant change from 2 weeks prior. 2. Large right pleural effusion, and interstitial pulmonary edema. Chest X-Ray 06/09/25 15:18 IMPRESSION: 1. Resolution of prior right pleural effusion with no pneumothorax post thoracentesis. 2. Mild increased initial pattern at the bilateral lung bases and favor mild pulmonary edema and/or atelectasis over pneumonia. Thoracentesis Ultrasound 06/09/25 15:59 IMPRESSION: 1. Successful ultrasound-guided thoracentesis yielding 600 mL of tex-colored fluid. Discharge Plan Discharge Attending physician on discharge: Beto Mullen Consulting providers: Hong Meade Discharging Clinician: Beto Mullen Anticipated Discharge Date/Time: 06/12/25 12:10 Patient Disposition: Home with Home Health Service Activity: as tolerated Diet: heart healthy Discharge Instructions: BiPAP at night as previously ordered. Oxygen via nasal cannula 4 L at home as previously ordered Patient Instructions: Antibiotic Form Patient Language: Croatian Stand Alone Forms: General Discharge Information Follow-up/Referrals: Hong Meade DO [Physician, Cardiology] - 2 Weeks Ben Golden MD [Primary Care Provider, Internal Medicine] - 1 Week Discharge Medications: New metoprolol tartrate 50 mg Tablet 150 mg PO Q12HR Qty: 180 0RF furosemide 40 mg Tablet 40 mg PO BID Qty: 60 0RF Continued benzonatate 200 mg capsule 200 mg PO BID PRN (Reason: cough) Qty: 90 6RF aspirin 325 mg Tablet,Delayed Release (Dr/Ec) 325 mg PO QAM 30 Days Qty: 30 0RF amiodarone 200 mg tablet 200 mg PO DAILY 30 Days Qty: 30 5RF trazodone 100 mg tablet 100 mg PO HS 30 Days Qty: 0 0RF ferrous sulfate 325 mg (65 mg iron) tablet 325 mg PO BID 30 Days Qty: 60 0RF montelukast 10 mg tablet 10 mg PO DAILY 30 Days Qty: 0 0RF azelastine 137 mcg (0.1 %) spray,non-aerosol 1 spray intranasal Q12H 30 Days Qty: 30 5RF Rx Instructions: administer into each nostril topiramate 100 mg tablet 200 mg PO BID 30 Days Qty: 0 0RF fluticasone propionate [Flonase Allergy Relief] 50 mcg/actuation spray,suspension 1 spray intranasal BID 30 Days Qty: 16 5RF Rx Instructions: administer into each nostril Trelegy Ellipta 100-62.5-25 mcg blister with device 1 inh inhalation DAILY 30 Days Qty: 28 1RF quetiapine 25 mg tablet 25 mg PO HS 30 Days Qty: 30 0RF omeprazole 40 mg capsule,delayed release(DR/EC) 40 mg PO DAILY 30 Days Qty: 30 0RF loratadine [Claritin] 10 mg tablet 10 mg PO DAILY 30 Days Qty: 30 6RF ropinirole 4 mg tablet 4 mg PO HS 30 Days Qty: 30 0RF duloxetine 20 mg capsule,delayed release(DR/EC) 20 mg PO DAILY 30 Days Qty: 30 0RF Changed potassium chloride 20 mEq Packet 20 meq PO BID 30 Days Qty: 60 0RF Discontinued montelukast [Singulair] 10 mg Tablet 10 mg PO DAILY 30 Days Qty: 30 0RF potassium chloride 20 mEq Packet 20 meq PO DAILY 30 Days Qty: 30 0RF furosemide 20 mg Tablet 20 mg PO BID 30 Days Qty: 60 0RF No Action metoprolol tartrate 50 mg Tablet 100 mg PO Q12HR 30 Days Qty: 120 0RF Other Ambulatory Orders: Complete Blood Count with Diff (Routine) Timeframe: 1 Week Location: Determined by Patient Ordered By: Beto Mullen Comprehensive Metabolic Panel (Routine) Timeframe: 1 Week Location: Determined by Patient Ordered By: Beto Mullen Date of admission: 06/09/25 10:14 Primary Care Provider: Ben Golden Admitting Provider: Al Crawford Attending physician on admission: lA Crawford Condition: Stable
== END 2025-06-12 14:00 | disposition home health service (06) | DRG 291 ==
LOC: ANHED 06-09 00:01 → ANHIMU 06-09 04:45 → ANHICU 06-09 08:35 → ANHIMU 06-12 12:10 → ANHICU 06-14 13:25 → ANHIMU 06-14 13:25
PROVIDERS: Nurse Practitioner; Admitting Provider Internal Medicine; Emergency Provider Physician Assistant; PCP Internal Medicine; Visit Provider Internal Medicine
DX: I13.0 Hypertensive heart and chronic kidney disease with heart failure and stage 1 through stage 4 chronic kidney disease, or unspecified chronic kidney disease (principal); I50.33 Acute on chronic diastolic (congestive) heart failure; J18.9 Pneumonia, unspecified organism; J96.21 Acute and chronic respiratory failure with hypoxia; J96.22 Acute and chronic respiratory failure with hypercapnia; J44.0 Chronic obstructive pulmonary disease with (acute) lower respiratory infection; I48.92 Unspecified atrial flutter; Z68.42 Body mass index [BMI] 45.0-49.9, adult; N18.9 Chronic kidney disease, unspecified; K21.9 Gastro-esophageal reflux disease without esophagitis; E66.01 Morbid (severe) obesity due to excess calories; G25.81 Restless legs syndrome; Z20.822 Contact with and (suspected) exposure to COVID-19; Z96.652 Presence of left artificial knee joint; Z99.81 Dependence on supplemental oxygen; Z86.73 Personal history of transient ischemic attack (TIA), and cerebral infarction without residual deficits; Z87.891 Personal history of nicotine dependence
CPT/HCPCS: 32555; 36415; 36600; 71045; 71275; 80048; 80053; 80202; 82375; 82565; 82805; 83050; 83605; 83615; 83735; 83880; 83986; 84145; 84157; 84484; 85018; 85025; 85027; 85380; 85610; 85730; 87040; 87637; 87641; 89051; 93005; 94002; 94640; 94660; 96365; 96366; 96367; 96375; 97161; 97165; 99285; A9270; G0378; J0456; J0696; J1650; J1938; J3373; J7050; Q9967

== ENCOUNTER 2025-07-06 20:33 | Inpatient (IN) | payer MEDICARE, MEDICAID, SELFPAY ==
[2025-07-06] VITALS (20 sets, daily range): BP systolic 123–148; BP diastolic 61–90; PULSE 86–99; RESP 12–24; TEMP 37.1; O2SAT 84–95
--- NOTE | ~2025-07-06 | XR_ITS ---
XR chest 1V portable INDICATION:SOB . REFERENCE: 06/09/2025 FINDINGS: A single AP of the chest demonstrates enlarged heart. Chronic interstitial changes are present bilaterally. There is interval right pleural effusion with groundglass opacities bilaterally. No pneumothorax. IMPRESSION: Cardiomegaly with pulmonary edema suggestive of congestive heart failure. Reviewed, dictated and finalized at location S. LT WORKER
--- NOTE | 2025-07-06 20:40 | ECG_ITS ---
Test Date: 2025-07-06 21:20:31 Measurements Intervals [place] Rate: 88 P: 51 OR: 174 QRS: 27 QRSD: 162 T: 25 QT: 408 QTc: 495 Interpretive Statements SINUS RHYTHM RIGHT BUNDLE BRANCH BLOCK ABNORMAL ECG Compared to ECG 06/09/2025 08:20:00 SINUS RHYTHM REPLACES ATRIAL FLUTTER Electronically Signed On 07-07-2025 13:08:11 INSTRUMENTAL TEACHER by Zay Bridges M.D.
[2025-07-06] MEDS: ALBUTEROL SULFATE NEB 2.5 MG/3 ML INH 5 MG INHALATION (20:53)
[2025-07-06 21:04] LABS: Hematocrit 37.5 % (37.0-47.0); Hemoglobin 10.2 g/dL (12.0-15.0); Immature Granulocyte Percent A 1.0 % (0-0.5); Lymphocytes Absolute Auto 1.27 K/mm3 (0.9-3.2); Mean Corpuscular HGB Conc 27.2 g/dl (32-36); Mean Corpuscular Hemoglobin 24.2 pg (26-34); Mean Corpuscular Volume 89.1 fl (80-100); Nucleated Red Blood Cells Absolute Auto 0.000 K/mm3 (0.0-0.012); Nucleated Red Blood Cells Perc 0.0 % (0.0-0.2); Platelet Count Result 234 k/mm3 (150-375); Red Blood Count 4.21 M/mm3 (4.2-5.4); White Blood Count 10.2 K/mm3 (4.5-10.0)
[2025-07-06 21:16] LABS: INR 1.0; Prothrombin Time 13.1 Seconds (11.1-14.7)
[2025-07-06 21:17] LABS: Partial Thromboplastin Time 33.1 Seconds (22.3-36.8)
[2025-07-06 21:19] LABS: Alanine Aminotransferase 12 U/L (6-35); Albumin Level 4.1 g/dL (3.5-5.1); Alkaline Phosphatase 103 U/L (38-126); Aspartate Amino Transferase 20 U/L (14-36); Bilirubin,Total 0.6 mg/dL (0.2-1.3); Blood Urea Nitrogen 23 mg/dL (7-17); Calcium 9.0 mg/dL (8.4-10.2); Chloride 88 mmol/L (98-107); Estimated CRCL calculation 49 ml/min; Estimated Glomerular Filt Rate 38; Glucose 152 mg/dL (65-110); Potassium 4.4 mmol/L (3.4-5.0); Sodium 135 mmol/L (137-145); Total Protein 8.0 g/dL (6.3-8.2)
[2025-07-06 21:24] LABS: Hypochromasia 2+; Ovalocytes Occasional; Schistocytes None Seen; Stomatocytes 1+
[2025-07-06 21:27] LABS: NT Pro B Type Natriuretic Pept 2600 pg/mL (19.9-100)
--- NOTE | 2025-07-06 21:34 | ED.GENADULT ---
HPI - General Adult General Chief complaint: Shortness of Breath/Dyspnea Stated complaint: respiratory distress Time Seen by Provider: 07/06/25 20:39 History of Present Illness HPI narrative: 65-year-old female with history of COPD, CHF some a chronic kidney disease, atrial flutter with RVR, presented emergency department for evaluation for worsening shortness of breath tonight. The did have follow-up with her risk and insurance consultant today and patient had no significant crackles rales rhonchi or wheezes on exam. Patient did have some mild bilateral lower extremity edema. Patient states this evening she had worsening congestive symptoms and had increased shortness of breath. Patient was saturating at 80% on 5 L of oxygen by nasal cannula. Patient was placed on CPAP by EMS and this did help with her oxygenation. Patient was transitioned to BiPAP upon arrival to the emergency department. Upon arrival patient was alert and orientated. Related Data Home Medications ?Medication ?Instructions ?Recorded ?Confirmed ?Last Taken ?Type levalbuterol tartrate 45 2 puff inhalation Q6H PRN 07/07/25 07/10/25 Unknown History mcg/actuation aerosol inhaler shortness of breath or wheezing Allergies Allergy/AdvReac Type Severity Reaction Status Date / Time No Known Drug Allergies Allergy Unknown Verified 07/10/25 10:11 Review of Systems Review of Systems: All systems reviewed & are unremarkable except as noted in HPI and below PMFSH Past Medical History Medical History (Updated 07/12/25 @ 18:58 by Jessica Hancock MD) CKD (chronic kidney disease) Diastolic dysfunction Echo in August 2022 showed normal LV function with an EF of 60 to 65%, grade 1 diastolic dysfunction, moderate enlarged right ventricular chamber, normal right ventricular systolic function, moderate tricuspid valve regurgitation, and pulmonary hypertension with an estimated PASP of 59 mmHg. Hypoxic respiratory failure Atrial flutter with rapid ventricular response Acute exacerbation of chronic obstructive pulmonary disease C. difficile colitis Renal failure Requiring temporary dialysis and CRRT in 09/15. 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) Congestive heart failure COPD (chronic obstructive pulmonary disease) Surgical History Surgical History History of tonsillectomy and adenoidectomy History of cholecystectomy History of 3 sections History of left knee replacement Family History Family History Father Hypertension Acute myocardial infarction Sibling Hypertension Mother Family history of heart disease in male family member before age 55 Brother Acute myocardial infarction Father Acute myocardial infarction Other Cerebrovascular accident Family history of cardiovascular disease Social History Social History Social History: She is from her Sai and they live in separate homes. She has 3 sons with kidney. She is disabled. Surrogate medical decision maker: Sai Shin, Code status: Full code. Smoking packs per day: 3 Smoking cigarettes per day: 60.0 Years smoked: 50 Smoking pack-years: 150.00 Smoking status: Former smoker Tobacco type: cigarettes Second hand tobacco smoke exposure: Yes Smoking end date: 08/23/22 Alcohol intake: never Drinks per week: 0 Substance use: never Substance use type: does not use Do You Feel Safe in your Home?: Yes Lack of Transportation: No Lack of Food: Never True Current Housing: I Have Housing Concerned About Future Housing: No Difficulty Paying Gas/Electric Bills: No Difficulty Paying for Meds: No Currently Unemployed: No Education: High School Diploma/GED Difficulty w/ Childcare or Family Care: No Living arrangements: with family Additional living arrangements comments: Lives with family in [place]. 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 Spiritual care concerns: No Exam Narrative: APPEARANCE: Uncomfortable appearing HEAD: normocephalic, atraumatic. EYES: PERRLA/EOMI, conjunctivae clear. NOSE: Normal no drainage EARS:TMS clear with good light reflex. THROAT: Pharynx clear, no exudate. NECK: Supple. No adenopathy, no masses. RESPIRATORY: Congested lung sounds bilaterally CARDIOVASCULAR: Regular rate and rhythm without murmurs rubs or gallops. ABDOMINAL: Soft, nontender, nondistended, normal bowel sounds MUSCULOSKELETAL: Moves all extremities. Strength/ROM intact, No edema, No calf tenderness. NEURO: Alert. Cranial nerves II through XII intact. Good gait. Good coordination SKIN: Warm, dry. Normal Color Course Vital Signs Vital signs: Vital Signs Temperature 98.8 F 07/06/25 20:30 Pulse Rate 94 07/06/25 20:30 Respiratory Rate 24 H 07/06/25 20:30 Blood Pressure 148/69 H 07/06/25 20:30 Pulse Oximetry 94 07/06/25 20:30 Oxygen Delivery BiPAP 07/06/25 20:30 Temperature 97.8 F 07/09/25 07:26 Pulse Rate 55 L 07/09/25 12:00 Respiratory Rate 18 07/09/25 08:57 Blood Pressure 148/57 H 07/09/25 07:26 Pulse Oximetry 88 L 07/09/25 10:51 Oxygen Delivery Nasal Cannula 07/09/25 10:51 Oxygen Flow Rate 3 07/09/25 10:51 Fraction of Inspired Oxygen 40 07/09/25 04:00 Medical Decision Making MDM Narrative Medical decision making narrative: 65-year-old female presents emergency department for evaluation for increased shortness of breath. Patient does does have history of chronic hypoxic hypercapnia and respiratory failure due to CHF. Patient did feel improved on BiPAP and was alert appropriate. Patient states she did see Cardiology for her lower leg swelling and she is advised to limit her fluid intake. Patient states after her doctor's appointment her breathing did worsen. ABG does show a pCO2 of 74.7. Patient was treated with Lasix and IV Solu-Medrol. Patient does feel better on BiPAP but is still tachypneic. I did discuss case with hospitalist patient was accepted for admission. Patient was updated on the plan for admission. All questions concerns were addressed patient was well-appearing at time of admission. Differential Diagnosis Differential Diagnosis: CHF, pneumonia, ACS, pneumothorax, pulmonary embolism Vital Signs Vital Signs: Vital Signs Temperature 98.8 F 07/06/25 20:30 Pulse Rate 94 07/06/25 20:30 Respiratory Rate 24 H 07/06/25 20:30 Blood Pressure 148/69 H 07/06/25 20:30 Pulse Oximetry 94 07/06/25 20:30 Oxygen Delivery BiPAP 07/06/25 20:30 Temperature 97.8 F 07/09/25 07:26 Pulse Rate 55 L 07/09/25 12:00 Respiratory Rate 18 07/09/25 08:57 Blood Pressure 148/57 H 07/09/25 07:26 Pulse Oximetry 88 L 07/09/25 10:51 Oxygen Delivery Nasal Cannula 07/09/25 10:51 Oxygen Flow Rate 3 07/09/25 10:51 Fraction of Inspired Oxygen 40 07/09/25 04:00 Lab Data Lab results reviewed: Yes I reviewed the patient's lab results. 07/09/25 04:28 07/09/25 04:28 Labs: Lab Results 07/06/25 07/06/25 07/06/25 Range/Units 20:44 21:52 22:01 WBC 10.2 H (4.5-10.0) K/mm3 RBC 4.21 (4.2-5.4) M/mm3 Hgb 10.2 L (12.0-15.0) g/dL Hct 37.5 (37.0-47.0) % MCV 89.1 (80-100) fl MCH 24.2 L (26-34) pg MCHC 27.2 L (32-36) g/dl RDW 16.2 H (11.5-14.5) % Plt Count 234 (150-375) k/mm3 MPV 9.1 (7.4-10.4) fl Immature Gran % (Auto) 1.0 H (0-0.5) % Neut % (Auto) 77.4 H (45.5-73.1) % Lymph % (Auto) 12.4 L (18.3-44.2) % [place] % (Auto) 7.4 (2.6-8.5) % Eos % (Auto) 1.3 (0-4.4) % Baso % (Auto) 0.5 (0.2-1.2) % Lymph # (Auto) 1.27 (0.9-3.2) K/mm3 [place] # (Auto) 0.8 H (0.1-0.6) K/mm3 Eos # (Auto) 0.1 (0-0.3) K/mm3 Baso # (Auto) 0.1 (0.0-0.1) K/mm3 Abs Immat Gran (auto) 0.10 H (0.00-0.031) K/mm3 Absolute Neuts (auto) 7.9 H (1.3-6.7) K/mm3 Absolute Nucleated RBC 0.000 (0.0-0.012) K/mm3 Band Neutrophils % Not Reportable Nucleated RBC % 0.0 (0.0-0.2) % Platelet Estimate Adequate (Adequate) Hypochromasia 2+ Ovalocytes Occasional Stomatocytes 1+ Schistocytes None seen PT 13.1 (11.1-14.7) Seconds INR 1.0 APTT 33.1 (22.3-36.8) Seconds Methemoglobin 0.2 (0-1.5) %THb Expiratory Pressure 6 CMH2O Inspiratory Pressure 16 CMH2O Sodium 135 L (137-145) mmol/L Potassium 4.4 (3.4-5.0) mmol/L Chloride 88 L (98-107) mmol/L Carbon Dioxide 38 H (22-30) mmol/L Anion Gap 9 (4-12) mmol/L BUN 23 H (7-17) mg/dL Creatinine 1.38 H (0.7-1.0) mg/dL Estim Creat Clear Calc 49 ml/min Estimated GFR 38 L (59 - ) Glucose 152 H (65-110) mg/dL Calcium 9.0 (8.4-10.2) mg/dL Magnesium (1.6-2.3) mg/dL Total Bilirubin 0.6 (0.2-1.3) mg/dL AST 20 (14-36) U/L ALT 12 (6-35) U/L Alkaline Phosphatase 103 (38-126) U/L NT-Pro-B Natriuret Pep 2600 H (19.9-100) pg/mL Total Protein 8.0 (6.3-8.2) g/dL Albumin 4.1 (3.5-5.1) g/dL Influenza A (RT-PCR) Negative (Negative) Influenza B (RT-PCR) Negative (Negative) RSV (RT-PCR) Negative (Negative) SARS-CoV-2 RNA (RT-PCR) Negative (Negative) 07/07/25 Range/Units 03:55 WBC 8.8 (4.5-10.0) K/mm3 RBC 4.02 L (4.2-5.4) M/mm3 Hgb 9.9 L (12.0-15.0) g/dL Hct 35.6 L (37.0-47.0) % MCV 88.6 (80-100) fl MCH 24.6 L (26-34) pg MCHC 27.8 L (32-36) g/dl RDW 16.2 H (11.5-14.5) % Plt Count 187 (150-375) k/mm3 MPV 9.1 (7.4-10.4) fl Immature Gran % (Auto) 0.9 H (0-0.5) % Neut % (Auto) 94.4 H (45.5-73.1) % Lymph % (Auto) 3.6 L (18.3-44.2) % [place] % (Auto) 0.8 L (2.6-8.5) % Eos % (Auto) 0.1 (0-4.4) % Baso % (Auto) 0.2 (0.2-1.2) % Lymph # (Auto) 0.32 L (0.9-3.2) K/mm3 [place] # (Auto) 0.1 (0.1-0.6) K/mm3 Eos # (Auto) 0.0 (0-0.3) K/mm3 Baso # (Auto) 0.0 (0.0-0.1) K/mm3 Abs Immat Gran (auto) 0.08 H (0.00-0.031) K/mm3 Absolute Neuts (auto) 8.3 H (1.3-6.7) K/mm3 Absolute Nucleated RBC 0.000 (0.0-0.012) K/mm3 Band Neutrophils % Nucleated RBC % 0.0 (0.0-0.2) % Platelet Estimate (Adequate) Hypochromasia Ovalocytes Stomatocytes Schistocytes PT (11.1-14.7) Seconds INR APTT (22.3-36.8) Seconds Methemoglobin (0-1.5) %THb Expiratory Pressure CMH2O Inspiratory Pressure CMH2O Sodium 135 L (137-145) mmol/L Potassium 4.3 (3.4-5.0) mmol/L Chloride 89 L (98-107) mmol/L Carbon Dioxide > 40 H (22-30) mmol/L Anion Gap (4-12) mmol/L BUN 23 H (7-17) mg/dL Creatinine 1.31 H (0.7-1.0) mg/dL Estim Creat Clear Calc 51 ml/min Estimated GFR 40 L (59 - ) Glucose 219 H (65-110) mg/dL Calcium 8.9 (8.4-10.2) mg/dL Magnesium 2.0 (1.6-2.3) mg/dL Total Bilirubin 0.5 (0.2-1.3) mg/dL AST 16 (14-36) U/L ALT 13 (6-35) U/L Alkaline Phosphatase 107 (38-126) U/L NT-Pro-B Natriuret Pep (19.9-100) pg/mL Total Protein 7.5 (6.3-8.2) g/dL Albumin 3.9 (3.5-5.1) g/dL Influenza A (RT-PCR) (Negative) Influenza B (RT-PCR) (Negative) RSV (RT-PCR) (Negative) SARS-CoV-2 RNA (RT-PCR) (Negative) ABG Data ABG results: 07/06/25 21:52 Puncture Site Right radial ABG pH 7.322 L ABG pCO2 74.7 H* ABG pO2 63.1 L ABG PO2/FiO2 Ratio 1.80 ABG HCO3 37.8 H ABG O2 Saturation 89.4 L ABG O2 Content 14.6 L ABG Base Excess 9.3 A-a Gradient 99.6 Oxyhemoglobin 90.0 Carboxyhemoglobin 1.8 Reduced Hemoglobin 8.0 H Total Hemoglobin 11.5 L O2 Delivery Device Non-invasive vent O2 Liters/Min Not Reportable Vent Rate 18 FiO2 35 Imaging Data Attestation: I personally reviewed and interpreted this imaging study as follows: My impression: Chest x-ray: Pulmonary edema and cardiomegaly Discharge Plan Discharge Clinical Impression: COPD (chronic obstructive pulmonary disease), CHF (congestive heart failure) Patient Disposition: Still a Patient Condition: Stable
[2025-07-06 21:55] LABS: Alveolar/Arterial O2 Gradient 99.6 mmHg; Carboxyhemoglobin 1.8 % THb (0-2.0); Fractional Inspired Oxygen 35 %; HCO3 ABG 37.8 mEq/l (22.0-26.0); Methemoglobin ABG 0.2 %THb (0-1.5); Oxygen Content ABG 14.6 %vol (16.0-22.0); Oxygen Saturation ABG 89.4 % (95.0-100.0); PO2 ABG 63.1 mmHg (80.0-100.0); PO2 FiO2 Ratio Arterial Blood 1.80 %; Reduced Hemoglobin 8.0 %THb (0-5.0)
[2025-07-06 21:57] LABS: Modified Allen's Test Pass; Non-Invasive Expiratory Pressure 6 CMH2O; Non-Invasive Inspiratory Pressure 16 CMH2O; Non-Invasive Vent Rate 18 /MIN; PCO2 ABG 74.7 mmHg (35.0-45.0); Site Drawn RIGHT RADIAL
[2025-07-06 22:43] LABS: Influenza A QL RT-PCR Negative (Negative); Influenza B QL RT-PCR Negative (Negative); RSV RNA, RT-PCR Negative (Negative); SARS-CoV-2 RNA PCR Negative (Negative)
[2025-07-06] MEDS: FUROSEMIDE INJ 40 MG/4 ML VIAL IV PUSH (22:48)
--- NOTE | 2025-07-06 22:59 | PM.IMHP ---
H&P: HPI History of Present Illness Date/Time: 07/06/25 22:59 Chief Complaint: Shortness of breath Narrative: 65-year-old female presents to [facility] on 07/06/2025 with 1 day of shortness of breath. PMH obesity class 3, COPD, chronic hypoxic and hypercarbic respiratory failure on 4 L nasal cannula during the day, 5 L with activity and sleep, DOMINIC compliant with CPAP, atrial fibrillation declining anticoagulation/cardioversion on aspirin due to history of rectus sheath hematoma CKD stage 3, hypertension, GERD, CHF, anemia. Recent admission at [facility] discharge on 06/12/2025, acute on chronic hypoxic hypercapnic respiratory failure likely due to CHF exacerbation. Patient reports she has had some shortness of breath recently at baseline, she saw her door closer Dr. Meade on this day of admission and reported swelling of her lower extremities. She was advised to limit her fluid intake to 1.5 L per day. Afterwards, her shortness of breath worsen. She denies chest pain, fever, coughing, abdominal pain, wheezing, nausea or vomiting, diarrhea, syncope. Patient desaturating in the ER. Placed on BiPAP. ABG demonstrates pH 7.322, pCO2 74.7, PO2 63 on FiO2 35%, bicarb 37.8. Patient received albuterol nebulization, Lasix 40 mg IV x1, Solu-Medrol 125 mg IV x1. Patient reports feeling much better after BiPAP in the therapies. However, still tachypneic. Review of Systems Review of Systems: All systems reviewed & are unremarkable except as noted in HPI and below (Subjective) [facility] Past Medical History Medical History Diastolic dysfunction Echo in August 2022 showed normal LV function with an EF of 60 to 65%, grade 1 diastolic dysfunction, moderate enlarged right ventricular chamber, normal right ventricular systolic function, moderate tricuspid valve regurgitation, and pulmonary hypertension with an estimated PASP of 59 mmHg. Hypoxic respiratory failure Atrial flutter with rapid ventricular response Acute exacerbation of chronic obstructive pulmonary disease C. difficile colitis Renal failure Requiring temporary dialysis and CRRT in 09/15. 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) Congestive heart failure COPD (chronic obstructive pulmonary disease) Surgical History Surgical History History of tonsillectomy and adenoidectomy History of cholecystectomy History of 3 sections History of left knee replacement Family History Family History Father Hypertension Acute myocardial infarction Sibling Hypertension Mother Family history of heart disease in male family member before age 55 Brother Acute myocardial infarction Father Acute myocardial infarction Other Cerebrovascular accident Family history of cardiovascular disease Social History Social History Social History: She is from her Sai and they live in separate homes. She has 3 sons with kidney. She is disabled. Surrogate medical decision maker: Sai Shin, Code status: Full code. Smoking packs per day: 3 Smoking cigarettes per day: 60.0 Years smoked: 50 Smoking pack-years: 150.00 Smoking status: Former smoker Tobacco type: cigarettes Second hand tobacco smoke exposure: Yes Smoking end date: 08/23/22 Alcohol intake: never Drinks per week: 0 Substance use: never Substance use type: does not use Do You Feel Safe in your Home?: Yes Lack of Transportation: No Lack of Food: Never True Current Housing: I Have Housing Concerned About Future Housing: No Difficulty Paying Gas/Electric Bills: YES Difficulty Paying for Meds: No Currently Unemployed: No Education: High School Diploma/GED Difficulty w/ Childcare or Family Care: No Living arrangements: with family Additional living arrangements comments: Lives with family in [place]. 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 Spiritual care concerns: No Meds Home Medications and Allergies Home Medications ?Medication ?Instructions ?Recorded ?Confirmed ?Type benzonatate 200 mg capsule 200 mg PO BID PRN cough #90 caps 01/31/25 07/06/25 Rx amiodarone 200 mg tablet 200 mg PO DAILY 30 days #30 tabs 06/01/25 07/06/25 Rx aspirin 325 mg tablet,delayed 325 mg PO QAM 30 days #30 tabs 06/01/25 07/06/25 Rx release azelastine 137 mcg (0.1 %) nasal 1 spray intranasal Q12H 30 days 06/01/25 07/06/25 Rx spray #30 mL duloxetine 20 mg capsule,delayed 20 mg PO DAILY 30 days #30 caps 06/01/25 07/06/25 Rx release ferrous sulfate 325 mg (65 mg 325 mg PO BID 30 days #60 tabs 06/01/25 07/06/25 Rx iron) tablet fluticasone fur. 100 mcg-umeclid 1 inh inhalation DAILY 30 days #28 06/01/25 07/06/25 Rx 62.5 mcg-vilant 25 mcg ea inhalat.powder (Trelegy Ellipta) fluticasone propionate 50 1 spray intranasal BID 30 days #16 06/01/25 07/06/25 Rx mcg/actuation nasal grams spray,suspension (Flonase Allergy Relief) loratadine 10 mg tablet (Claritin) 10 mg PO DAILY 30 days #30 tabs 06/01/25 07/06/25 Rx montelukast 10 mg tablet 10 mg PO DAILY 30 days #0 tabs 06/01/25 07/06/25 Rx omeprazole 40 mg capsule,delayed 40 mg PO DAILY 30 days #30 caps 06/01/25 07/06/25 Rx release quetiapine 25 mg tablet 25 mg PO HS 30 days #30 tabs 06/01/25 07/06/25 Rx ropinirole 4 mg tablet 4 mg PO HS 30 days #30 tabs 06/01/25 07/06/25 Rx topiramate 100 mg tablet 200 mg (2 x 100 mg) PO BID 30 days 06/01/25 07/06/25 Rx #0 tabs trazodone 100 mg tablet 100 mg PO HS 30 days #0 tabs 06/01/25 07/06/25 Rx furosemide 40 mg tablet 40 mg PO BID #60 tabs 06/12/25 07/06/25 Rx metoprolol tartrate 50 mg tablet 150 mg (3 x 50 mg) PO Q12HR #180 06/12/25 07/06/25 Rx tabs potassium chloride 20 mEq oral 20 meq PO BID 30 days #60 ea 06/12/25 07/06/25 Rx packet Allergies Allergy/AdvReac Type Severity Reaction Status Date / Time No Known Drug Allergies Allergy Unknown Verified 06/09/25 10:36 Vital Signs Vital Signs - 24 hr 07/06/25 20:30 07/06/25 20:39 07/06/25 20:57 Temperature 98.8 F Pulse Rate 94 91 Respiratory Rate 24 H 21 H 21 H Blood Pressure 148/69 H Pulse Oximetry 94 Oxygen Delivery BiPAP BiPAP Exam Const: General: comfortable and no acute distress Other: A&O x3 HENMT: Mouth: Yes moist mucous membranes Eyes: Pupils: Equal, round and reactive pupils present EOM: EOMs intact bilaterally Resp: Other: Tachypneic. Severely decreased breath sounds, inspiratory/expiratory wheeze. Coarse breath sounds. Cardio: Rate: regular rate Rhythm: regular rhythm Heart sounds: no murmurs GI: Other: Distended, reported to be her usual. Soft. Nontender. : General: Yes bladder normal to palpation Neuro: Motor exam (neuro): 5/5 motor strength present throughout Extrem: Other: Tight 2+ pitting edema of her bilateral lower extremities below the knees. Lipodermatosclerosis of the lower extremities below the knees and extending into the posterior portions above the knees. H&P: Results Labs Labs: Short CBC 07/06/25 Range/Units 20:44 WBC 10.2 H (4.5-10.0) K/mm3 Hgb 10.2 L (12.0-15.0) g/dL Hct 37.5 (37.0-47.0) % Plt Count 234 (150-375) k/mm3 BMP 07/06/25 20:44 Sodium 135 L Potassium 4.4 Chloride 88 L BUN 23 H Creatinine 1.38 H Glucose 152 H Calcium 9.0 Liver Function 07/06/25 Range/Units 20:44 Total Bilirubin 0.6 (0.2-1.3) mg/dL AST 20 (14-36) U/L ALT 12 (6-35) U/L Alkaline Phosphatase 103 (38-126) U/L Albumin 4.1 (3.5-5.1) g/dL Assessment and Plan Assessment and plan (1) Acute exacerbation of CHF (congestive heart failure): Qualifiers: Heart failure type: unspecified Qualified Code(s): I50.9 - Heart failure, unspecified Code(s): I50.9 - Heart failure, unspecified Status: Acute (2) PAF (paroxysmal atrial fibrillation): Code(s): I48.0 - Paroxysmal atrial fibrillation Status: Acute (3) Acute on chronic respiratory failure with hypoxia and hypercapnia: Code(s): J96.21 - Acute and chronic respiratory failure with hypoxia; J96.22 - Acute and chronic respiratory failure with hypercapnia Status: Acute Plan 65-year-old female presents to [facility] on 07/06/2025 with 1 day of shortness of breath. PMH obesity class 3, COPD, chronic hypoxic and hypercarbic respiratory failure on 4 L nasal cannula during the day, 5 L with activity and sleep, DOMINIC compliant with CPAP, atrial fibrillation declining anticoagulation/cardioversion on aspirin due to history of rectus sheath hematoma CKD stage 3, hypertension, GERD, CHF, anemia. Recent admission at [facility] discharge on 06/12/2025, acute on chronic hypoxic hypercapnic respiratory failure likely due to CHF exacerbation. Patient reports she has had some shortness of breath recently at baseline, she saw her door closer Dr. Meade on this day of admission and reported swelling of her lower extremities. She was advised to limit her fluid intake to 1.5 L per day. Afterwards, her shortness of breath worsen. She denies chest pain, fever, coughing, abdominal pain, wheezing, nausea or vomiting, diarrhea, syncope. Patient desaturating in the ER. Placed on BiPAP. ABG demonstrates pH 7.322, pCO2 74.7, PO2 63 on FiO2 35%, bicarb 37.8. Patient received albuterol nebulization, Lasix 40 mg IV x1, Solu-Medrol 125 mg IV x1. Patient reports feeling much better after BiPAP in the therapies. However, still tachypneic. ---- Keep BiPAP on tonight. Trial off of BiPAP in the morning if patient is looking better. Obtain ABG if necessary. consultation placed for her door closer Dr. Meade Daily weights, strict intake/output. Heart healthy diet. Diuresed with Lasix 40 mg IV b.i.d.. Continue DIESEL TRACTOR OPERATOR heart failure medications otherwise with blood pressure/heart rate allows. CKD stable, continue to monitor. COPD exacerbation with wheezing, decreased air intake. Continue Solu-Medrol, DuoNebs. No cough. Currently normal sinus rhythm. Continue DIESEL TRACTOR OPERATOR atrial fibrillation medications if heart rate and blood pressure allow. Monitor magnesium and potassium. ----- Full code. SCDs. Resume DIESEL TRACTOR OPERATOR aspirin 325 mg p.o. q.day. patient previously refused Eliquis as she had rectus sheath hematoma x2. Saline lock IV. Heart healthy diet. Fall precaution, ambulate with assistance. Greater than 55 minute spent. Hospitalist MIPS Advance Care Plan I have confirmed that the patient's Advanced Care Plan is present, code status is documented, or surrogate decision maker is listed in patient medical record.: Yes Medication Reconciliation I have utilized all available resources to obtain, update and review the patients current medications (includes all prescriptions, OTC, herbals, cannabis, and nutritional supplements).: Yes
--- NOTE | 2025-07-06 23:21 | WPCEDHO ---
ED Hand Off Checklist All vitals saved: yes IV Site documented: yes All med administrations documented: yes Triage Note Triage Note Pt brought in by EMS from home 07/06/25 20:30 for shortness of breath that started at 1300 this afternoon and progressively worsened this evening. Pt has hx COPD, emphysema, CHF on 3L NC at baseline. Upon EMS arrival, pt was wearing 5L NC and initial SpO2 was 68%. Pt did duoneb prior to EMS arrival to house. Pt placed on cpap for transport to hospital, upon arrival to ED placed on bipap. BLE edema present. A&Ox4, speaking partial sentences on bipap FiO2 30%. Pt reports she was discharged from inpatient stay for a heart something and that she needed a thoracentesis. Afebrile. Bilateral inspiratory and expiratory wheezing upon auscultation. Allergies No Known Drug Allergies Allergy (Verified 06/09/25 10:36) Unknown Current Diagnoses Paroxysmal atrial fibrillation (07/06/25) Heart failure, unspecified (07/06/25) Acute and chronic respiratory failure with hypoxia (07/06/25) Acute and chronic respiratory failure with hypercapnia (07/06/25) Family History (Last Reviewed 06/08/25 @ 23:54 by Izabel Porras PA-C) Father Hypertension Acute myocardial infarction Sibling Hypertension Mother Family history of heart disease in male family member before age 55 Brother Acute myocardial infarction Father Acute myocardial infarction Other Cerebrovascular accident Family history of cardiovascular disease Administered/Completed Medications Discontinued Medications Albuterol (Albuterol Sulfate Neb 2.5 Mg/3 Ml Inh) 5 mg INHALATION ONCE STA Stop: 07/06/25 20:41 Last Admin: 07/06/25 20:53 Dose: 5 mg Documented By: VEDA Furosemide (Furosemide Inj 40 Mg/4 Ml Vial) 40 mg IV PUSH ONCE STA Stop: 07/06/25 21:39 Last Admin: 07/06/25 22:48 Dose: 40 mg Documented By: JUAN Methylprednisolone Sodium Succinate (Methylprednisolone Sod Succ 125 Mg Vial) 125 mg IV PUSH ONCE STA Stop: 07/06/25 20:41 Last Admin: 07/06/25 21:19 Dose: 125 mg Documented By: JUAN Interventions/Assessments IV / Saline Lock, Insert Start: 07/06/25 20:23 Freq: Status: Active Protocol: Document 07/06/25 20:42 JUAN (Rec: 07/06/25 20:42 JUAN [id number]) IV Assessment Peripheral Access Right Proximal Forearm IV Catheter Access Initiated IV Insertion Date 07/06/25 IV Insertion Time 20:42 Catheter Gauge 20 IV Insertion 1 Attempts Ultrasound Used for No Placement IV Site Assessment WNL IV Care and WNL,Dressing Applied, Dated, Timed, and Initialed Maintenance PA: Cardiovascular Assessment Start: 07/06/25 20:23 Freq: Status: Active Protocol: Document 07/06/25 21:00 JUAN (Rec: 07/06/25 23:19 JUAN [id number]) Cardiovascular Assessment Cardiovascular Dyspnea,Edema Symptoms Skin Description Normal Color Rhythm/Strength Monitor Rhythm Regular EKG Rythm Sinus Rhythm PA: Respiratory Assessment Start: 07/06/25 20:23 Freq: Status: Active Protocol: Document 07/06/25 23:19 JUAN (Rec: 07/06/25 23:19 JUAN [id number]) Respiratory Assessment Bilateral Throughout Phase Expiratory Lung Sounds Improved Aeration,Wheezes Oxygen Delivery Oxygen Delivery BiPAP Pulse Oximetry (90- 93 100) Fraction of Inspired 40 Oxygen Last Vital Signs Temperature 98.8 F 07/06/25 20:30 Pulse Rate 87 07/06/25 23:14 Respiratory Rate 22 H 07/06/25 23:14 Pulse Oximetry 93 07/06/25 23:19 Blood Pressure 134/72 07/06/25 23:14 Blood Pressure Mean 92 07/06/25 23:14 Blood Pressure Position Sitting 07/06/25 20:30 Oxygen Delivery BiPAP 07/06/25 23:19 Fraction of Inspired Oxygen 40 07/06/25 23:19 Weight 130 kg 07/06/25 20:30 Last Result - Abnormals Only WBC 10.2 K/mm3 (4.5-10.0) H 07/06/25 20:44 Hgb 10.2 g/dL (12.0-15.0) L 07/06/25 20:44 MCH 24.2 pg (26-34) L 07/06/25 20:44 MCHC 27.2 g/dl (32-36) L 07/06/25 20:44 RDW 16.2 % (11.5-14.5) H 07/06/25 20:44 Immature Gran % (Auto) 1.0 % (0-0.5) H 07/06/25 20:44 Neut % (Auto) 77.4 % (45.5-73.1) H 07/06/25 20:44 Lymph % (Auto) 12.4 % (18.3-44.2) L 07/06/25 20:44 [place] # (Auto) 0.8 K/mm3 (0.1-0.6) H 07/06/25 20:44 Abs Immat Gran (auto) 0.10 K/mm3 (0.00-0.031) H 07/06/25 20:44 Absolute Neuts (auto) 7.9 K/mm3 (1.3-6.7) H 07/06/25 20:44 ABG pH 7.322 (7.350-7.450) L 07/06/25 21:52 ABG pCO2 74.7 mmHg (35.0-45.0) H* 07/06/25 21:52 ABG pO2 63.1 mmHg (80.0-100.0) L 07/06/25 21:52 ABG HCO3 37.8 mEq/l (22.0-26.0) H 07/06/25 21:52 ABG O2 Saturation 89.4 % (95.0-100.0) L 07/06/25 21:52 ABG O2 Content 14.6 %vol (16.0-22.0) L 07/06/25 21:52 Reduced Hemoglobin 8.0 %THb (0-5.0) H 07/06/25 21:52 Total Hemoglobin 11.5 g/dL (12.0-18.0) L 07/06/25 21:52 Sodium 135 mmol/L (137-145) L 07/06/25 20:44 Chloride 88 mmol/L (98-107) L 07/06/25 20:44 BUN 23 mg/dL (7-17) H 07/06/25 20:44 Creatinine 1.38 mg/dL (0.7-1.0) H 07/06/25 20:44 Estimated GFR 38 (59-) L 07/06/25 20:44 Glucose 152 mg/dL (65-110) H 07/06/25 20:44 NT-Pro-B Natriuret Pep 2600 pg/mL (19.9-100) H 07/06/25 20:44 Most Recent Suicide Severity Rating Suicide Severity Rating NO RISK INDICATED 07/06/25 20:30
[2025-07-06 23:33] LABS: Anion Gap 9 mmol/L (4-12); Carbon Dioxide 38 mmol/L (22-30)
[2025-07-07] VITALS (35 sets, daily range): BP systolic 104–166; BP diastolic 48–70; PULSE 70–143; RESP 15–28; TEMP 36.4–37; O2SAT 90–100; BMI 45.6
--- NOTE | 2025-07-07 00:29 | ADMGEN ---
This patient, Cony Shin, was admitted to IMU Room 232-01. Patient/family oriented to hospital policies and general routines including ID bracelet, bed and alarms, visiting hours, pain management, procedures, bathroom and other care routines, personal items, smoking policy, room service/diet, and visiting hours. Information on how to activate the Rapid Response Team has been discussed. Patient/Family are encouraged to report perceived risks to care and to ask questions if they do not understand what they are told or what they should do.
[2025-07-07] MEDS: IPRATROPIUM BR 0.02% INH SOLN 0.5 MG/2.5 ML VIAL INHALATION ×5 (01:33→20:23)
[2025-07-07 04:15] LABS: Hematocrit 35.6 % (37.0-47.0); Hemoglobin 9.9 g/dL (12.0-15.0); Immature Granulocyte Percent A 0.9 % (0-0.5); Lymphocytes Absolute Auto 0.32 K/mm3 (0.9-3.2); Mean Corpuscular HGB Conc 27.8 g/dl (32-36); Mean Corpuscular Hemoglobin 24.6 pg (26-34); Mean Corpuscular Volume 88.6 fl (80-100); Nucleated Red Blood Cells Absolute Auto 0.000 K/mm3 (0.0-0.012); Nucleated Red Blood Cells Perc 0.0 % (0.0-0.2); Platelet Count Result 187 k/mm3 (150-375); Red Blood Count 4.02 M/mm3 (4.2-5.4); White Blood Count 8.8 K/mm3 (4.5-10.0)
[2025-07-07] MEDS: FUROSEMIDE INJ 40 MG/4 ML VIAL IV PUSH ×3 (04:27→21:33)
[2025-07-07 04:32] LABS: Alanine Aminotransferase 13 U/L (6-35); Albumin Level 3.9 g/dL (3.5-5.1); Alkaline Phosphatase 107 U/L (38-126); Aspartate Amino Transferase 16 U/L (14-36); Bilirubin,Total 0.5 mg/dL (0.2-1.3); Blood Urea Nitrogen 23 mg/dL (7-17); Calcium 8.9 mg/dL (8.4-10.2); Chloride 89 mmol/L (98-107); Estimated CRCL calculation 51 ml/min; Estimated Glomerular Filt Rate 40; Glucose 219 mg/dL (65-110); Magnesium 2.0 mg/dL (1.6-2.3); Potassium 4.3 mmol/L (3.4-5.0); Sodium 135 mmol/L (137-145); Total Protein 7.5 g/dL (6.3-8.2)
[2025-07-07 04:33] LABS: Carbon Dioxide > 40 mmol/L (22-30)
--- NOTE | 2025-07-07 08:17 | P.CONCA_ITS ---
Assessment and Plan Assessment and plan (1) CHF (congestive heart failure): Code(s): I50.9 - Heart failure, unspecified Status: Acute Assessment and Plan: Due to acute on chronic diastolic HF. Advise to limit fluid intake to 1.5 l/day, but she drinks at least 2 l/day. Start Jardiance 10 mg daily. On Lasix 40 mg IV BID. Monitor renal function and electrolytes. Upon discharge would change Lasix to Bumetanide 1 mg BID. (2) Paroxysmal atrial flutter: Code(s): I48.92 - Unspecified atrial flutter Status: Acute Assessment and Plan: Back in sinus rhythm. On Amiodarone and Metoprolol. [id number] 3. On Amiodarone and aspirin. Refused anticoagulation due to prior rectus sheath hematoma twice on Eliquis. Refuses DC cardioversion and ablation in past. (3) Hypertension: Code(s): I10 - Essential (primary) hypertension Status: Acute Assessment and Plan: Stable. (4) COPD (chronic obstructive pulmonary disease): Code(s): J44.9 - Chronic obstructive pulmonary disease, unspecified Status: Acute Assessment and Plan: On neb treatments, solumedrol. History of Present Illness History of Present Illness Consult date/time: 07/07/25 08:17 Reason For Visit: CHF, copd Narrative: 65 yr old woman who is my regular cardiology patient and a patient of Dr. Golden presents to ER with sob. She has a history of PAF in 2022, diastolic dysfunction, COPD on oxygen, former smoking. She went to ER for sob and found to have CHF and COPD exacerbation. She is on oxygen 5 l/m. She can walk short distance with a walker and oxygen in the house. Has mild-mod edema of both legs. Denies chest pain, orthopnea, dizziness. Cardiovascular Procedures Echo/MUGA:: 05/26/25 Echo: EF 60-65%, mild RVE, mild LAE, trace AI, mild MR/TR, RVSP 55 mmHg. 12/02/24 Echo: TDS. EF 60-65%, diastolic dysfunction, RVE, trace MR/TR. Electrophysiology:: 07/06/25 EKG: Sinus rhythm at 69 bpm, RBBB, QTc 460 ms. 12/31/24 EKG: Sinus bradycardia at 56 bpm, IVCD. Stress Tests:: 01/05/25 CT chest: Mild emphysema. RUL pneumonia. Review of Systems 2 Review of Systems: All systems reviewed & are unremarkable except as noted in HPI and below Constitutional: Constitutional: Reports as per HPI, Denies chills, Reports fatigue and Denies fever(s) Cardiovascular: Cardiovascular: Reports as per HPI, Denies chest pain and Denies irregular heart rhythm Respiratory: Respiratory: Reports as per HPI and Reports dyspnea Gastrointestinal: Gastrointestinal: Reports as per HPI and Denies abdominal pain Genitourinary: Genitourinary: Reports as per HPI and Denies dysuria Musculoskeletal: Musculoskeletal: Reports as per HPI Neurologic: Reports as per HPI, Denies dizziness and Denies syncope [facility] Past Medical History Medical History Diastolic dysfunction Echo in August 2022 showed normal LV function with an EF of 60 to 65%, grade 1 diastolic dysfunction, moderate enlarged right ventricular chamber, normal right ventricular systolic function, moderate tricuspid valve regurgitation, and pulmonary hypertension with an estimated PASP of 59 mmHg. Hypoxic respiratory failure Atrial flutter with rapid ventricular response Acute exacerbation of chronic obstructive pulmonary disease C. difficile colitis Renal failure Requiring temporary dialysis and CRRT in 09/15. 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) Congestive heart failure COPD (chronic obstructive pulmonary disease) Surgical History Surgical History History of tonsillectomy and adenoidectomy History of cholecystectomy History of 3 sections History of left knee replacement Family History Family History Father Hypertension Acute myocardial infarction Sibling Hypertension Mother Family history of heart disease in male family member before age 55 Brother Acute myocardial infarction Father Acute myocardial infarction Other Cerebrovascular accident Family history of cardiovascular disease Social History Social History Social History: She is from her Sai and they live in separate homes. She has 3 sons with kidney. She is disabled. Surrogate medical decision maker: Sai Shin, Code status: Full code. Smoking packs per day: 3 Smoking cigarettes per day: 60.0 Years smoked: 50 Smoking pack-years: 150.00 Smoking status: Former smoker Tobacco type: cigarettes Second hand tobacco smoke exposure: Yes Smoking end date: 08/23/22 Alcohol intake: never Drinks per week: 0 Substance use: never Substance use type: does not use Do You Feel Safe in your Home?: Yes Lack of Transportation: No Lack of Food: Never True Current Housing: I Have Housing Concerned About Future Housing: No Difficulty Paying Gas/Electric Bills: No Difficulty Paying for Meds: No Currently Unemployed: No Education: High School Diploma/GED Difficulty w/ Childcare or Family Care: No Living arrangements: with family Additional living arrangements comments: Lives with family in [place]. 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 Spiritual care concerns: No Meds Home Medications and Allergies Home Medications ?Medication ?Instructions ?Recorded ?Confirmed ?Type benzonatate 200 mg capsule 200 mg PO BID PRN cough #90 caps 01/31/25 07/07/25 Rx amiodarone 200 mg tablet 200 mg PO DAILY 30 days #30 tabs 06/01/25 07/07/25 Rx aspirin 325 mg tablet,delayed 325 mg PO QAM 30 days #3 0 tabs 06/01/25 07/07/25 Rx release azelastine 137 mcg (0.1 %) nasal 1 spray intranasal Q1 2H 30 days 06/01/25 07/07/25 Rx spray #30 mL duloxetine 20 mg capsule,delayed 20 mg PO DAILY 30 day s #30 caps 06/01/25 07/07/25 Rx release ferrous sulfate 325 mg (65 mg 325 mg PO BID 30 days #6 0 tabs 06/01/25 07/07/25 Rx iron) tablet fluticasone fur. 100 mcg-umeclid 1 inh inhalation JULIA Y 30 days #28 06/01/25 07/07/25 Rx 62.5 mcg-vilant 25 mcg ea inhalat.powder (Trelegy Ellipta) fluticasone propionate 50 1 spray intranasal BID 30 da ys #16 06/01/25 07/07/25 Rx mcg/actuation nasal grams spray,suspension (Flonase Allergy Relief) loratadine 10 mg tablet (Claritin) 10 mg PO DAILY 30 d ays #30 tabs 06/01/25 07/07/25 Rx montelukast 10 mg tablet 10 mg PO DAILY 30 days #0 ta bs 06/01/25 07/07/25 Rx omeprazole 40 mg capsule,delayed 40 mg PO DAILY 30 day s #30 caps 06/01/25 07/07/25 Rx release quetiapine 25 mg tablet 25 mg PO HS 30 days #30 tabs 06/01/25 07/07/25 Rx ropinirole 4 mg tablet 4 mg PO HS 30 days #30 tabs 06/01/25 07/07/25 Rx topiramate 100 mg tablet 200 mg (2 x 100 mg) PO BID 3 0 days 06/01/25 07/07/25 Rx #0 tabs trazodone 100 mg tablet 100 mg PO HS 30 days #0 tabs 06/01/25 07/07/25 Rx furosemide 40 mg tablet 40 mg PO BID #60 tabs 07/07/25 Rx metoprolol tartrate 50 mg tablet 150 mg (3 x 50 mg) PO Q12HR #180 06/12/25 07/07/25 Rx tabs potassium chloride 20 mEq oral 20 meq PO BID 30 days # 60 ea 06/12/25 07/07/25 Rx packet levalbuterol tartrate 45 2 puff inhalation Q6H PRN 07/07/25 History mcg/actuation aerosol inhaler shortness of breath or w heezing Allergies Allergy/AdvReac Type Severity Reaction Status Date / Time No Known Drug Allergies Allergy Unknown Verified 07/07/25 00:29 Vital Signs Vital Signs - 24 hr 07/06/25 20:30 07/06/25 20:39 07/06/25 20:57 Temperature 98.8 F Pulse Rate 94 91 Respiratory Rate 24 H 21 H 21 H Blood Pressure 148/69 H Pulse Oximetry 94 Oxygen Delivery BiPAP BiPAP Oxygen Flow Rate Fraction of Inspired Oxygen 07/06/25 20:57 07/06/25 21:00 07/06/25 21:00 Temperature Pulse Rate 93 89 Respiratory Rate 23 H 13 Blood Pressure 140/70 Pulse Oximetry 84 L Oxygen Delivery BiPAP Oxygen Flow Rate Fraction of Inspired Oxygen 07/06/25 21:01 07/06/25 21:15 07/06/25 21:16 Temperature Pulse Rate 90 89 89 Respiratory Rate 12 17 14 Blood Pressure 140/70 148/84 H Pulse Oximetry 84 L 86 L 86 L Oxygen Delivery Oxygen Flow Rate Fraction of Inspired Oxygen 07/06/25 21:30 07/06/25 21:32 07/06/25 21:47 Temperature Pulse Rate 94 95 Respiratory Rate 16 18 Blood Pressure 148/84 H Pulse Oximetry 90 91 95 Oxygen Delivery Oxygen Flow Rate Fraction of Inspired Oxygen 07/06/25 22:00 07/06/25 22:01 07/06/25 22:13 Temperature Pulse Rate 99 97 90 Respiratory Rate 17 15 17 Blood Pressure 123/61 Pulse Oximetry 93 93 89 L Oxygen Delivery Oxygen Flow Rate Fraction of Inspired Oxygen 07/06/25 22:33 07/06/25 22:36 07/06/25 22:45 Temperature Pulse Rate 91 91 94 Respiratory Rate 22 H 14 14 Blood Pressure 123/90 Pulse Oximetry 91 88 L 90 Oxygen Delivery Oxygen Flow Rate Fraction of Inspired Oxygen 07/06/25 23:00 07/06/25 23:06 07/06/25 23:14 Temperature Pulse Rate 98 86 87 Respiratory Rate 22 H 17 22 H Blood Pressure 134/72 Pulse Oximetry 92 93 94 Oxygen Delivery BiPAP Oxygen Flow Rate Fraction of Inspired Oxygen 07/06/25 23:19 07/07/25 00:24 07/07/25 00:30 Temperature 98.4 F Pulse Rate 117 H 95 Respiratory Rate 20 26 H Blood Pressure 109/70 Pulse Oximetry 93 98 90 Oxygen Delivery BiPAP BiPAP Oxygen Flow Rate Fraction of Inspired Oxygen 40 07/07/25 00:30 07/07/25 00:30 07/07/25 01:33 Temperature Pulse Rate 92 92 84 Respiratory Rate 26 H 19 Blood Pressure Pulse Oximetry 90 Oxygen Delivery BiPAP Oxygen Flow Rate Fraction of Inspired Oxygen 40 07/07/25 01:35 07/07/25 01:40 07/07/25 02:00 Temperature Pulse Rate 84 86 86 Respiratory Rate 19 20 Blood Pressure Pulse Oximetry 95 Oxygen Delivery BiPAP Oxygen Flow Rate Fraction of Inspired Oxygen 07/07/25 04:00 07/07/25 04:00 07/07/25 04:00 Temperature Pulse Rate 93 93 Respiratory Rate 19 15 Blood Pressure Pulse Oximetry 100 Oxygen Delivery BiPAP BiPAP Oxygen Flow Rate Fraction of Inspired Oxygen 40 07/07/25 04:31 07/07/25 04:45 07/07/25 05:09 Temperature 98.4 F Pulse Rate 112 H 89 82 Respiratory Rate 19 28 H 24 H Blood Pressure 161/55 H Pulse Oximetry 100 92 Oxygen Delivery Nasal Cannula Oxygen Flow Rate 5 Fraction of Inspired Oxygen 07/07/25 05:09 07/07/25 05:09 07/07/25 05:15 Temperature Pulse Rate 82 82 89 Respiratory Rate 24 H 24 H 20 Blood Pressure Pulse Oximetry 96 96 Oxygen Delivery BiPAP BiPAP Oxygen Flow Rate Fraction of Inspired Oxygen 40 07/07/25 06:00 07/07/25 08:00 07/07/25 08:05 Temperature 97.5 F L Pulse Rate 84 88 93 Respiratory Rate 18 Blood Pressure 155/58 H Pulse Oximetry 100 97 Oxygen Delivery High Flow Nasal Cannula Oxygen Flow Rate 8 Fraction of Inspired Oxygen 07/07/25 08:05 Temperature Pulse Rate 93 Respiratory Rate 18 Blood Pressure Pulse Oximetry Oxygen Delivery Oxygen Flow Rate Fraction of Inspired Oxygen Exam 2 Const: General: cooperative, healthy appearing and comfortable Resp: Auscultation: crackles, wheezes and diminished lung sounds Cardio: Rate: regular rate Rhythm: regular rhythm Heart sounds: no murmurs Peripheral pulses: dorsalis pedis present GI: GI Palp: No abdominal tenderness and Yes Soft to palpation Neuro: General: oriented to person, oriented to place and oriented to time Extrem: Right lower extremity: edema Left lower extremity: edema Other: Mod edema of both legs Results Labs and Meds 07/07/25 03:55 07/07/25 03:55 Lab results: Cardiac Enzymes 07/06/25 07/07/25 Range/Units 20:44 03:55 AST 20 16 (14-36) U/L Coagulation 07/06/25 Range/Units 20:44 PT 13.1 (11.1-14.7) Seconds APTT 33.1 (22.3-36.8) Seconds CBC 07/06/25 07/07/25 Range/Units 20:44 03:55 WBC 10.2 H 8.8 (4.5-10.0) K/mm3 RBC 4.21 4.02 L (4.2-5.4) M/mm3 Hgb 10.2 L 9.9 L (12.0-15.0) g/dL Hct 37.5 35.6 L (37.0-47.0) % Plt Count 234 187 (150-375) k/mm3 Lymph # (Auto) 1.27 0.32 L (0.9-3.2) K/mm3 Wheeler # (Auto) 0.8 H 0.1 (0.1-0.6) K/mm3 Eos # (Auto) 0.1 0.0 (0-0.3) K/mm3 Baso # (Auto) 0.1 0.0 (0.0-0.1) K/mm3 Comprehensive Metabolic Panel 07/06/25 07/07/25 Range/Units 20:44 03:55 Sodium 135 L 135 L (137-145) mmol/L Potassium 4.4 4.3 (3.4-5.0) mmol/L Chloride 88 L 89 L (98-107) mmol/L Carbon Dioxide 38 H > 40 H (22-30) mmol/L BUN 23 H 23 H (7-17) mg/dL Creatinine 1.38 H 1.31 H (0.7-1.0) mg/dL Glucose 152 H 219 H (65-110) mg/dL Calcium 9.0 8.9 (8.4-10.2) mg/dL AST 20 16 (14-36) U/L ALT 12 13 (6-35) U/L Alkaline Phosphatase 103 107 (38-126) U/L Total Protein 8.0 7.5 (6.3-8.2) g/dL Albumin 4.1 3.9 (3.5-5.1) g/dL Intake and Output 07/06/25 07/07/25 07/07/25 23:59 07:59 15:59 Intake Total 350 Output Total 800 Balance -450 Intake: Oral 350 Output: Urine 800 Patient Weight 07/07/25 23:59 Weight 128.2 kg
[2025-07-07] MEDS: AMIODARONE HCL 200 MG TABLET PO (09:37)
[2025-07-07] MEDS: FERROUS SULFATE 325 MG TABLET BY MOUTH ×2 (09:38→16:55)
[2025-07-07] MEDS: LORATADINE 10 MG TABLET PO (09:38)
[2025-07-07] MEDS: TOPIRAMATE 100 MG TABLET 200 MG PO ×2 (09:38→21:35)
[2025-07-07] MEDS: FLUTICASONE PROPIONATE 0.05% NA SPR 16 GM BTL (*BKC) 1 SPRAY NASAL ×2 (09:38→16:57)
[2025-07-07] MEDS: POTASSIUM CHLORIDE 20 MEQ PACKET (FOR LIQUID) PO ×2 (09:38→16:55)
[2025-07-07] MEDS: ASPIRIN 325 MG ENTERIC TABLET PO (09:38)
[2025-07-07] MEDS: MONTELUKAST SODIUM 10 MG TABLET PO (09:38)
[2025-07-07] MEDS: PANTOPRAZOLE 40 MG TABLET PO ×2 (09:38→16:56)
[2025-07-07] MEDS: EMPAGLIFLOZIN 10 MG TABLET PO (09:40)
[2025-07-07] MEDS: METOPROLOL TARTRATE 50 MG TAB 150 MG PO ×2 (09:40→21:34)
[2025-07-07] MEDS: AZELASTINE HCL NASAL 0.1% 137 MCG/SPR 30 ML BTL 1 SPRAY NASAL (09:40)
[2025-07-07] MEDS: FLUTICASONE/UMECLIDIN/VILANTER 100-62.5-25 MCG ELLIPTA 1 PUFF INHALATION (11:46)
--- NOTE | 2025-07-07 12:38 | P.PNIM_ITS ---
Progress Note: A&P Assessment and Plan (1) Acute on chronic congestive heart failure: Code(s): I50.9 - Heart failure, unspecified Status: Chronic (2) Atrial flutter with rapid ventricular response: Code(s): I48.92 - Unspecified atrial flutter Status: Acute Plan Acute on chronic heart failure exacerbation Acute COPD exacerbation? Acute on chronic hypoxic and hypercarbic respiratory failure -patient at baseline uses 5 L oxygen, her home [employer] machine is not working, will need a new order on discharge -recently hospitalized here for same issue, discharged on 06/12/25 -wean O2 as tolerated, currently on 8 L oxygen nasal cannula, at home on 5 L -BNP elevated 2600 -steroids: Solu-Medrol 40 mg q.8 hours, no wheezing on my exam, will re-evaluate tomorrow -nebs: Ipratropium, levalbuterol -antibiotics: Not indicated -diuresis: IV Lasix 40 mg b.i.d. with potassium supplement -appreciate cardiology consultation: Start Jardiance, continue Lasix IV 40 mg b.i.d., fluid restriction 1.5L/day -on Trelegy inhaler, Singulair -ABG with pH 7.3, pCO2 74.7, chronic component of hypercapnia Chronic conditions -atrial fibrillation: Rate control with metoprolol 150mg BID, amiodarone, not on anticoagulation due to complication with hematoma in rectus sheath -CAD: Aspirin full-dose -depression, mood disorder: Duloxetine, Seroquel, topiramate -supplements: Ferrous sulfate -allergies: Claritin -GERD: Protonix -RLS: requip -insomnia: Trazodone -morbid obesity: BMI 45.6, will need weight loss plan -DOMINIC with CPAP Diet: Heart healthy with 1500 cc fluid restriction DVT prophylaxis: SCDs Code status: Full code Disposition: home in 2-4 days Time Spent With Patient Time: 35 minutes Subjective Date/time seen: 07/07/25 12:38 Interval history: Patient seen and examined. Patient states she chronically uses 5 L oxygen at home and will need new line care order on discharge due to some malfunction with her machine. She has 8 L. We are continuing steroids for COPD. Diuresing with IV Lasix. Cardiology adding Jardiance and continuing rate control for atrial fibrillation. Patient sources dyspnea. She denies fever, chills, nausea vomiting diarrhea. Review of Systems Review of Systems: 10 point ROS complete, negative other th an what is specified in HPI. Exam Narrative: - GENERAL: Pleasant elderly woman and N o acute distress - EYES: EOMI. - HENT: Moist mucous membranes. Edentul ous - LUNGS: Clear to auscultation bilateral ly, no wheezing on my exam - CARDIOVASCULAR: Regular rate and rhyth m. - ABDOMEN: Soft, non-tender and non-dist ended. - EXTREMITIES: Peripheral pulses 2+. - NEUROLOGIC: No focal neurological defi cits. - PSYCHIATRIC: Awake, Alert and oriented x 3. Appropriate mood and affect. Objective Data Vital Signs Vital Signs: Vital Signs - 24 hr 07/06/25 20:30 07/06/25 20:39 07/06/25 20:57 Temperature 37.1 C Pulse Rate 94 91 Respiratory Rate 24 H 21 H 21 H Blood Pressure 148/69 H Pulse Oximetry 94 Oxygen Delivery BiPAP BiPAP Oxygen Flow Rate Fraction of Inspired Oxygen 07/06/25 20:57 07/06/25 21:00 07/06/25 21:00 Temperature Pulse Rate 93 89 Respiratory Rate 23 H 13 Blood Pressure 140/70 Pulse Oximetry 84 L Oxygen Delivery BiPAP Oxygen Flow Rate Fraction of Inspired Oxygen 07/06/25 21:01 07/06/25 21:15 07/06/25 21:16 Temperature Pulse Rate 90 89 89 Respiratory Rate 12 17 14 Blood Pressure 140/70 148/84 H Pulse Oximetry 84 L 86 L 86 L Oxygen Delivery Oxygen Flow Rate Fraction of Inspired Oxygen 07/06/25 21:30 07/06/25 21:32 07/06/25 21:47 Temperature Pulse Rate 94 95 Respiratory Rate 16 18 Blood Pressure 148/84 H Pulse Oximetry 90 91 95 Oxygen Delivery Oxygen Flow Rate Fraction of Inspired Oxygen 07/06/25 22:00 07/06/25 22:01 07/06/25 22:13 Temperature Pulse Rate 99 97 90 Respiratory Rate 17 15 17 Blood Pressure 123/61 Pulse Oximetry 93 93 89 L Oxygen Delivery Oxygen Flow Rate Fraction of Inspired Oxygen 07/06/25 22:33 07/06/25 22:36 07/06/25 22:45 Temperature Pulse Rate 91 91 94 Respiratory Rate 22 H 14 14 Blood Pressure 123/90 Pulse Oximetry 91 88 L 90 Oxygen Delivery Oxygen Flow Rate Fraction of Inspired Oxygen 07/06/25 23:00 07/06/25 23:06 07/06/25 23:14 Temperature Pulse Rate 98 86 87 Respiratory Rate 22 H 17 22 H Blood Pressure 134/72 Pulse Oximetry 92 93 94 Oxygen Delivery BiPAP Oxygen Flow Rate Fraction of Inspired Oxygen 07/06/25 23:19 07/07/25 00:24 07/07/25 00:30 Temperature 36.9 C Pulse Rate 117 H 95 Respiratory Rate 20 26 H Blood Pressure 109/70 Pulse Oximetry 93 98 90 Oxygen Delivery BiPAP BiPAP Oxygen Flow Rate Fraction of Inspired Oxygen 40 07/07/25 00:30 07/07/25 00:30 07/07/25 01:33 Temperature Pulse Rate 92 92 84 Respiratory Rate 26 H 19 Blood Pressure Pulse Oximetry 90 Oxygen Delivery BiPAP Oxygen Flow Rate Fraction of Inspired Oxygen 40 07/07/25 01:35 07/07/25 01:40 07/07/25 02:00 Temperature Pulse Rate 84 86 86 Respiratory Rate 19 20 Blood Pressure Pulse Oximetry 95 Oxygen Delivery BiPAP Oxygen Flow Rate Fraction of Inspired Oxygen 07/07/25 04:00 07/07/25 04:00 07/07/25 04:00 Temperature Pulse Rate 93 93 Respiratory Rate 19 15 Blood Pressure Pulse Oximetry 100 Oxygen Delivery BiPAP BiPAP Oxygen Flow Rate Fraction of Inspired Oxygen 40 07/07/25 04:31 07/07/25 04:45 07/07/25 05:09 Temperature 36.9 C Pulse Rate 112 H 89 82 Respiratory Rate 19 28 H 24 H Blood Pressure 161/55 H Pulse Oximetry 100 92 Oxygen Delivery Nasal Cannula Oxygen Flow Rate 5 Fraction of Inspired Oxygen 07/07/25 05:09 07/07/25 05:09 07/07/25 05:15 Temperature Pulse Rate 82 82 89 Respiratory Rate 24 H 24 H 20 Blood Pressure Pulse Oximetry 96 96 Oxygen Delivery BiPAP BiPAP Oxygen Flow Rate Fraction of Inspired Oxygen 40 07/07/25 06:00 07/07/25 08:00 07/07/25 08:00 Temperature 36.4 C L Pulse Rate 84 88 Respiratory Rate 18 Blood Pressure 155/58 H Pulse Oximetry 100 97 Oxygen Delivery High Flow Nasal Cannula Oxygen Flow Rate 8 Fraction of Inspired Oxygen 07/07/25 08:00 07/07/25 08:05 07/07/25 08:05 Temperature Pulse Rate 85 93 93 Respiratory Rate 18 Blood Pressure Pulse Oximetry 97 Oxygen Delivery High Flow Nasal Cannula Oxygen Flow Rate 8 Fraction of Inspired Oxygen 07/07/25 08:16 07/07/25 09:37 07/07/25 09:40 Temperature Pulse Rate 115 H 95 95 Respiratory Rate 18 Blood Pressure Pulse Oximetry Oxygen Delivery Oxygen Flow Rate Fraction of Inspired Oxygen 07/07/25 10:00 07/07/25 11:46 07/07/25 12:00 Temperature 36.8 C Pulse Rate 83 85 84 Respiratory Rate 18 20 Blood Pressure 156/62 H Pulse Oximetry 95 Oxygen Delivery Oxygen Flow Rate Fraction of Inspired Oxygen Intake/Output Intake/Output: Intake & Output 07/04/25 07/05/25 07/06/25 07/07/25 23:59 23:59 23:59 23:59 Intake Total 590 Output Total 800 Balance -210 Meds/Results Medications: Active Medications Generic Name Dose Route Start Last Admin Trade Name Freq PRN Reason Stop Dose Admin Amiodarone HCl 200 mg 07/07/25 08:00 07/07/25 09:37 Amiodarone Hcl 200 Mg Tablet PO 200 mg DAILY@0800 YODIT Administration Aspirin 325 mg 07/07/25 09:00 07/07/25 09:38 Aspirin 325 Mg Enteric Tablet PO 325 mg QAM YODIT Administration Azelastine HCl 1 spray 07/07/25 09:00 07/07/25 09:40 Azelastine Hcl Nasal 0.1% 137 Mcg/Spr 30 Ml Btl NASAL 1 spray Q12HR YODIT Administration Duloxetine HCl 20 mg 07/07/25 09:00 07/07/25 09:37 Duloxetine Hcl 20 Mg Capsule.Dr PO 20 mg DAILY YODIT Administration Empagliflozin 10 mg 07/07/25 09:00 07/07/25 09:40 Empagliflozin 10 Mg Tablet PO 10 mg DAILY YODIT Administration Ferrous Sulfate 325 mg 07/07/25 09:00 07/07/25 09:38 Ferrous Sulfate 325 Mg Tablet BY MOUTH 325 mg BID YODIT Administration Fluticasone Propionate 1 spray 07/07/25 09:00 07/07/25 09:38 Fluticasone Propionate 0.05% Na Spr 16 Gm Btl (*Bkc) NASAL 1 spray BID YODIT Administration Fluticasone/Umeclidinium/Vilanterol 1 puff 07/07/25 09:00 07/07/25 11:46 Fluticasone/Umeclidin/Vilanter 100-62.5-25 Mcg Ellipta INHALATION 1 puff DAILYRT YODIT Administration Furosemide 40 mg 07/07/25 09:00 07/07/25 09:38 Furosemide Inj 40 Mg/4 Ml Vial IV PUSH 40 mg Q12HR YODIT Administration Ipratropium [place] 0.5 mg 07/07/25 02:00 07/07/25 08:04 Ipratropium Br 0.02% Inh Soln 0.5 Mg/2.5 Ml Vial INHALATION 0.5 mg Q6HRT YODIT Administration Ipratropium [place] 0.5 mg 07/07/25 04:38 07/07/25 05:09 Ipratropium Br 0.02% Inh Soln 0.5 Mg/2.5 Ml Vial INHALATION 0.5 mg Q6HRT PRN Administration Shortness Of Breath Levalbuterol HCl 1.25 mg 07/07/25 02:00 07/07/25 08:04 Levalbuterol Neb 1.25 Mg/3 Ml INHALATION 1.25 mg Q6HRT YODIT Administration Levalbuterol HCl 1.25 mg 07/07/25 04:35 07/07/25 05:08 Levalbuterol Neb 1.25 Mg/3 Ml INHALATION 1.25 mg Q6HRT PRN Administration Wheezing Levalbuterol HCl 2 puff 07/07/25 08:28 Levalbuterol Hfa (*Sp) 15 Gm Inhaler INHALATION Q6H PRN Shortness Of Breath Or Wheezing Loratadine 10 mg 07/07/25 09:00 07/07/25 09:38 Loratadine 10 Mg Tablet PO 10 mg DAILY YODIT Administration Methylprednisolone Sodium Succinate 40 mg 07/07/25 14:00 Methylprednisolone Sod Succ 40 Mg Vial IV PUSH Q8HR YODIT Metoprolol Tartrate 150 mg 07/07/25 09:00 07/07/25 09:40 Metoprolol Tartrate 50 Mg Tab PO 150 mg Q12HR YODIT Administration Montelukast Sodium 10 mg 07/07/25 09:00 07/07/25 09:38 Montelukast Sodium 10 Mg Tablet PO 10 mg DAILY YODIT Administration Pantoprazole Sodium 40 mg 07/07/25 09:00 07/07/25 09:38 Pantoprazole 40 Mg Tablet PO 40 mg BID YODIT Administration Potassium Chloride 20 meq 07/07/25 09:00 07/07/25 09:38 Potassium Chloride 20 Meq Packet (For Liquid) PO 20 meq BID YODIT Administration Quetiapine Fumarate 25 mg 07/07/25 21:00 Quetiapine Fumarate 25 Mg Tablet PO HS YODIT Ropinirole HCl 4 mg 07/07/25 21:00 Ropinirole Hcl 1 Mg Tablet PO HS YODTI Topiramate 200 mg 07/07/25 09:00 07/07/25 09:38 Topiramate 100 Mg Tablet PO 200 mg Q12HR YODIT Administration Trazodone HCl 100 mg 07/07/25 21:00 Trazodone Hcl 50 Mg Tablet PO HS YODIT Radiology Results: ITS Impressions Chest X-Ray 07/06/25 21:16 IMPRESSION: Cardiomegaly with pulmonary edema suggestive of congestive heart failure. Labs Labs: Laboratory Results - last 24 hr 07/06/25 07/06/25 07/06/25 20:44 21:52 22:01 WBC 10.2 H RBC 4.21 Hgb 10.2 L Hct 37.5 MCV 89.1 MCH 24.2 L MCHC 27.2 L RDW 16.2 H Plt Count 234 MPV 9.1 Immature Gran % (Auto) 1.0 H Neut % (Auto) 77.4 H Lymph % (Auto) 12.4 L [place] % (Auto) 7.4 Eos % (Auto) 1.3 Baso % (Auto) 0.5 Lymph # (Auto) 1.27 [place] # (Auto) 0.8 H Eos # (Auto) 0.1 Baso # (Auto) 0.1 Abs Immat Gran (auto) 0.10 H Absolute Neuts (auto) 7.9 H Absolute Nucleated RBC 0.000 Band Neutrophils % Not Reportable Nucleated RBC % 0.0 Platelet Estimate Adequate Hypochromasia 2+ Ovalocytes Occasional Stomatocytes 1+ Schistocytes None seen PT 13.1 INR 1.0 APTT 33.1 Puncture Site Right radial ABG pH 7.322 L ABG pCO2 74.7 H* ABG pO2 63.1 L ABG PO2/FiO2 Ratio 1.80 ABG HCO3 37.8 H ABG O2 Saturation 89.4 L ABG O2 Content 14.6 L ABG Base Excess 9.3 A-a Gradient 99.6 Oxyhemoglobin 90.0 Carboxyhemoglobin 1.8 Methemoglobin 0.2 Reduced Hemoglobin 8.0 H Total Hemoglobin 11.5 L O2 Delivery Device Non-invasive vent O2 Liters/Min Not Reportable Vent Rate 18 FiO2 35 Expiratory Pressure 6 Inspiratory Pressure 16 Sodium 135 L Potassium 4.4 Chloride 88 L Carbon Dioxide 38 H Anion Gap 9 BUN 23 H Creatinine 1.38 H Estim Creat Clear Calc 49 Estimated GFR 38 L Glucose 152 H Calcium 9.0 Magnesium Total Bilirubin 0.6 AST 20 ALT 12 Alkaline Phosphatase 103 NT-Pro-B Natriuret Pep 2600 H Total Protein 8.0 Albumin 4.1 Influenza A (RT-PCR) Negative Influenza B (RT-PCR) Negative RSV (RT-PCR) Negative SARS-CoV-2 RNA (RT-PCR) Negative 07/07/25 03:55 WBC 8.8 RBC 4.02 L Hgb 9.9 L Hct 35.6 L MCV 88.6 MCH 24.6 L MCHC 27.8 L RDW 16.2 H Plt Count 187 MPV 9.1 Immature Gran % (Auto) 0.9 H Neut % (Auto) 94.4 H Lymph % (Auto) 3.6 L [place] % (Auto) 0.8 L Eos % (Auto) 0.1 Baso % (Auto) 0.2 Lymph # (Auto) 0.32 L [place] # (Auto) 0.1 Eos # (Auto) 0.0 Baso # (Auto) 0.0 Abs Immat Gran (auto) 0.08 H Absolute Neuts (auto) 8.3 H Absolute Nucleated RBC 0.000 Band Neutrophils % Nucleated RBC % 0.0 Platelet Estimate Hypochromasia Ovalocytes Stomatocytes Schistocytes PT INR APTT Puncture Site ABG pH ABG pCO2 ABG pO2 ABG PO2/FiO2 Ratio ABG HCO3 ABG O2 Saturation ABG O2 Content ABG Base Excess A-a Gradient Oxyhemoglobin Carboxyhemoglobin Methemoglobin Reduced Hemoglobin Total Hemoglobin O2 Delivery Device O2 Liters/Min Vent Rate FiO2 Expiratory Pressure Inspiratory Pressure Sodium 135 L Potassium 4.3 Chloride 89 L Carbon Dioxide > 40 H Anion Gap BUN 23 H Creatinine 1.31 H Estim Creat Clear Calc 51 Estimated GFR 40 L Glucose 219 H Calcium 8.9 Magnesium 2.0 Total Bilirubin 0.5 AST 16 ALT 13 Alkaline Phosphatase 107 NT-Pro-B Natriuret Pep Total Protein 7.5 Albumin 3.9 Influenza A (RT-PCR) Influenza B (RT-PCR) RSV (RT-PCR) SARS-CoV-2 RNA (RT-PCR)
[2025-07-08] VITALS (24 sets, daily range): BP systolic 144–153; BP diastolic 47–71; PULSE 59–72; RESP 14–20; TEMP 36.5–36.8; O2SAT 94–100
[2025-07-08] MEDS: IPRATROPIUM BR 0.02% INH SOLN 0.5 MG/2.5 ML VIAL INHALATION ×4 (01:39→20:11)
[2025-07-08 03:54] LABS: Hematocrit 35.0 % (37.0-47.0); Hemoglobin 10.0 g/dL (12.0-15.0); Mean Corpuscular HGB Conc 28.6 g/dl (32-36); Mean Corpuscular Hemoglobin 24.6 pg (26-34); Mean Corpuscular Volume 86.0 fl (80-100); Platelet Count Result 207 k/mm3 (150-375); Red Blood Count 4.07 M/mm3 (4.2-5.4); White Blood Count 15.4 K/mm3 (4.5-10.0)
[2025-07-08 04:15] LABS: Blood Urea Nitrogen 31 mg/dL (7-17); Calcium 9.3 mg/dL (8.4-10.2); Carbon Dioxide > 40 mmol/L (22-30); Chloride 87 mmol/L (98-107); Estimated CRCL calculation 48 ml/min; Estimated Glomerular Filt Rate 38; Glucose 176 mg/dL (65-110); Magnesium 2.1 mg/dL (1.6-2.3); Potassium 4.4 mmol/L (3.4-5.0); Sodium 131 mmol/L (137-145)
--- NOTE | 2025-07-08 08:02 | PM.PNCARD ---
Progress Note: A&P Assessment and Plan (1) CHF (congestive heart failure): Code(s): I50.9 - Heart failure, unspecified Status: Acute Assessment and Plan: Due to acute on chronic diastolic HF. Advise to limit fluid intake to 1.5 l/day, but she drinks at least 2 l/day. On Jardiance 10 mg daily. On Lasix 40 mg IV BID. Monitor renal function and electrolytes. Negative 6.5 L fluid balancec. OK to be discharged from cardiology standpoint. Upon discharge would change Lasix to Bumetanide 1 mg BID. (2) Paroxysmal atrial flutter: Code(s): I48.92 - Unspecified atrial flutter Status: Acute Assessment and Plan: Back in sinus rhythm. On Amiodarone and Metoprolol. [id number] 3. On Amiodarone and aspirin. Refused anticoagulation due to prior rectus sheath hematoma twice on Eliquis. Refuses DC cardioversion and ablation in past. (3) Hypertension: Code(s): I10 - Essential (primary) hypertension Status: Acute Assessment and Plan: Stable. (4) COPD (chronic obstructive pulmonary disease): Code(s): J44.9 - Chronic obstructive pulmonary disease, unspecified Status: Acute Assessment and Plan: On neb treatments, solumedrol. Subjective Date/time seen: 07/08/25 08:02 Interval history: Denies chest pain or sob. Exam Const: General: cooperative, healthy appearing and comfortable Orientation/consciousness: oriented to person, oriented to place and oriented to time Resp: Auscultation: no crackles, no rales, no rhonchi, no wheezes and diminished lung sounds Cardio: Rate: regular rate Rhythm: regular rhythm Heart sounds: no murmurs Peripheral pulses: dorsalis pedis present Neuro: General: oriented to person, oriented to place and oriented to time Extrem: Right lower extremity: edema Left lower extremity: edema Other: Mild edema of both legs Objective Data Vital Signs Vital Signs: Vital Signs - 24 hr 07/07/25 08:05 07/07/25 08:05 07/07/25 08:16 Temperature Pulse Rate 93 93 115 H Respiratory Rate 18 18 Blood Pressure Pulse Oximetry 97 Oxygen Delivery High Flow Nasal Cannula Oxygen Flow Rate 8 07/07/25 09:37 07/07/25 09:40 07/07/25 10:00 Temperature Pulse Rate 95 95 83 Respiratory Rate Blood Pressure Pulse Oximetry Oxygen Delivery Oxygen Flow Rate 07/07/25 11:46 07/07/25 12:00 07/07/25 12:00 Temperature 98.2 F Pulse Rate 85 84 143 H Respiratory Rate 18 20 Blood Pressure 156/62 H Pulse Oximetry 95 Oxygen Delivery Oxygen Flow Rate 07/07/25 12:00 07/07/25 14:00 07/07/25 14:08 Temperature Pulse Rate 80 89 83 Respiratory Rate 18 Blood Pressure Pulse Oximetry 92 Oxygen Delivery Nasal Cannula Oxygen Flow Rate 6 07/07/25 14:15 07/07/25 16:00 07/07/25 16:00 Temperature 98.1 F Pulse Rate 79 84 82 Respiratory Rate 20 24 H Blood Pressure 104/49 L Pulse Oximetry 93 96 Oxygen Delivery Nasal Cannula Oxygen Flow Rate 6 07/07/25 16:00 07/07/25 18:00 07/07/25 19:59 Temperature 98.6 F Pulse Rate 116 H 86 74 Respiratory Rate 22 H Blood Pressure 166/53 H Pulse Oximetry 93 Oxygen Delivery Oxygen Flow Rate 07/07/25 20:00 07/07/25 20:23 07/07/25 20:26 Temperature Pulse Rate 80 96 Respiratory Rate 20 Blood Pressure Pulse Oximetry 96 Oxygen Delivery High Flow Nasal Cannula Oxygen Flow Rate 6 07/07/25 20:38 07/07/25 21:11 07/07/25 21:34 Temperature Pulse Rate 90 74 77 Respiratory Rate 20 22 H Blood Pressure Pulse Oximetry 93 Oxygen Delivery High Flow Nasal Cannula Oxygen Flow Rate 5 07/07/25 21:51 07/07/25 22:00 07/07/25 23:47 Temperature 97.7 F Pulse Rate 90 74 70 Respiratory Rate 18 20 Blood Pressure 150/48 H Pulse Oximetry 97 98 Oxygen Delivery BiPAP Oxygen Flow Rate 07/08/25 00:00 07/08/25 01:40 07/08/25 01:43 Temperature Pulse Rate 69 66 66 Respiratory Rate 14 14 Blood Pressure Pulse Oximetry 99 Oxygen Delivery BiPAP Oxygen Flow Rate 07/08/25 01:56 07/08/25 04:00 Temperature Pulse Rate 70 68 Respiratory Rate 15 Blood Pressure Pulse Oximetry Oxygen Delivery Oxygen Flow Rate Intake/Output Intake/Output: Intake & Output 07/05/25 07/06/25 07/07/25 07/08/25 23:59 23:59 23:59 23:59 Intake Total 2270 Output Total 7065 1150 Balance -5330 -1150 Meds/Results Medications: Active Medications Generic Name Dose Route Start Last Admin Trade Name [place]isa PRN Reason Stop Dose Admin Amiodarone HCl 200 mg 07/07/25 08:00 07/07/25 09:37 Amiodarone Hcl 200 Mg Tablet PO 200 mg DAILY@0800 YODIT Administration Aspirin 325 mg 07/07/25 09:00 07/07/25 09:38 Aspirin 325 Mg Enteric Tablet PO 325 mg QAM YODIT Administration Azelastine HCl 1 spray 07/07/25 09:00 07/07/25 21:32 Azelastine Hcl Nasal 0.1% 137 Mcg/Spr 30 Ml Btl NASAL Not Given Q12HR YODIT Duloxetine HCl 20 mg 07/07/25 09:00 07/07/25 09:37 Duloxetine Hcl 20 Mg Capsule.Dr PO 20 mg DAILY YODIT Administration Empagliflozin 10 mg 07/07/25 09:00 07/07/25 09:40 Empagliflozin 10 Mg Tablet PO 10 mg DAILY YODIT Administration Ferrous Sulfate 325 mg 07/07/25 09:00 07/07/25 16:55 Ferrous Sulfate 325 Mg Tablet BY MOUTH 325 mg BID YODIT Administration Fluticasone Propionate 1 spray 07/07/25 09:00 07/07/25 16:57 Fluticasone Propionate 0.05% Na Spr 16 Gm Btl (*Bkc) NASAL 1 spray BID YODIT Administration Fluticasone/Umeclidinium/Vilanterol 1 puff 07/07/25 09:00 07/07/25 11:46 Fluticasone/Umeclidin/Vilanter 100-62.5-25 Mcg Ellipta INHALATION 1 puff DAILYRT YODIT Administration Furosemide 40 mg 07/07/25 09:00 07/07/25 21:33 Furosemide Inj 40 Mg/4 Ml Vial IV PUSH 40 mg Q12HR YODIT Administration Ipratropium [place] 0.5 mg 07/07/25 02:00 07/08/25 01:39 Ipratropium Br 0.02% Inh Soln 0.5 Mg/2.5 Ml Vial INHALATION 0.5 mg Q6HRT YODIT Administration Ipratropium [place] 0.5 mg 07/07/25 04:38 07/07/25 05:09 Ipratropium Br 0.02% Inh Soln 0.5 Mg/2.5 Ml Vial INHALATION 0.5 mg Q6HRT PRN Administration Shortness Of Breath Levalbuterol HCl 1.25 mg 07/07/25 02:00 07/08/25 01:39 Levalbuterol Neb 1.25 Mg/3 Ml INHALATION 1.25 mg Q6HRT YODIT Administration Levalbuterol HCl 1.25 mg 07/07/25 04:35 07/07/25 05:08 Levalbuterol Neb 1.25 Mg/3 Ml INHALATION 1.25 mg Q6HRT PRN Administration Wheezing Levalbuterol HCl 2 puff 07/07/25 08:28 Levalbuterol Hfa (*Sp) 15 Gm Inhaler INHALATION Q6H PRN Shortness Of Breath Or Wheezing Loratadine 10 mg 07/07/25 09:00 07/07/25 09:38 Loratadine 10 Mg Tablet PO 10 mg DAILY YODIT Administration Methylprednisolone Sodium Succinate 40 mg 07/07/25 14:00 07/08/25 06:03 Methylprednisolone Sod Succ 40 Mg Vial IV PUSH 40 mg Q8HR YODIT Administration Metoprolol Tartrate 150 mg 07/07/25 09:00 07/07/25 21:34 Metoprolol Tartrate 50 Mg Tab PO 150 mg Q12HR YODIT Administration Montelukast Sodium 10 mg 07/07/25 09:00 07/07/25 09:38 Montelukast Sodium 10 Mg Tablet PO 10 mg DAILY YODIT Administration Pantoprazole Sodium 40 mg 07/07/25 09:00 07/07/25 16:56 Pantoprazole 40 Mg Tablet PO 40 mg BID YODIT Administration Potassium Chloride 20 meq 07/07/25 09:00 07/07/25 16:55 Potassium Chloride 20 Meq Packet (For Liquid) PO 20 meq BID YODIT Administration Quetiapine Fumarate 25 mg 07/07/25 21:00 07/07/25 21:35 Quetiapine Fumarate 25 Mg Tablet PO 25 mg HS YODIT Administration Ropinirole HCl 4 mg 07/07/25 21:00 07/07/25 21:34 Ropinirole Hcl 1 Mg Tablet PO 4 mg HS YODIT Administration Topiramate 200 mg 07/07/25 09:00 07/07/25 21:35 Topiramate 100 Mg Tablet PO 200 mg Q12HR YODIT Administration Trazodone HCl 100 mg 07/07/25 21:00 07/07/25 21:35 Trazodone Hcl 50 Mg Tablet PO 100 mg HS YODIT Administration Radiology Results: ITS Impressions Chest X-Ray 07/06/25 21:16 IMPRESSION: Cardiomegaly with pulmonary edema suggestive of congestive heart failure. Labs Labs: Laboratory Results - last 24 hr 07/08/25 03:43 WBC 15.4 H RBC 4.07 L Hgb 10.0 L Hct 35.0 L MCV 86.0 MCH 24.6 L MCHC 28.6 L RDW 16.1 H Plt Count 207 MPV 9.1 Sodium 131 L Potassium 4.4 Chloride 87 L Carbon Dioxide > 40 H Anion Gap BUN 31 H Creatinine 1.39 H Estim Creat Clear Calc 48 Estimated GFR 38 L Glucose 176 H Calcium 9.3 Magnesium 2.1
[2025-07-08] MEDS: AMIODARONE HCL 200 MG TABLET PO (09:04)
[2025-07-08] MEDS: LORATADINE 10 MG TABLET PO (09:04)
[2025-07-08] MEDS: PANTOPRAZOLE 40 MG TABLET PO ×2 (09:04→16:46)
[2025-07-08] MEDS: FERROUS SULFATE 325 MG TABLET BY MOUTH ×2 (09:04→16:47)
[2025-07-08] MEDS: MONTELUKAST SODIUM 10 MG TABLET PO (09:04)
[2025-07-08] MEDS: METOPROLOL TARTRATE 50 MG TAB 150 MG PO ×2 (09:05→20:24)
[2025-07-08] MEDS: ASPIRIN 325 MG ENTERIC TABLET PO (09:05)
[2025-07-08] MEDS: TOPIRAMATE 100 MG TABLET 200 MG PO ×2 (09:05→20:25)
[2025-07-08] MEDS: POTASSIUM CHLORIDE 20 MEQ PACKET (FOR LIQUID) PO ×2 (09:05→16:46)
[2025-07-08] MEDS: EMPAGLIFLOZIN 10 MG TABLET PO (09:05)
[2025-07-08] MEDS: FUROSEMIDE INJ 40 MG/4 ML VIAL IV PUSH (09:06)
--- NOTE | 2025-07-08 09:14 | PM.IMPN ---
Progress Note: A&P Assessment and Plan (1) Acute on chronic congestive heart failure: Code(s): I50.9 - Heart failure, unspecified Status: Chronic (2) Atrial flutter with rapid ventricular response: Code(s): I48.92 - Unspecified atrial flutter Status: Acute Plan Acute on chronic heart failure exacerbation Acute COPD exacerbation? Acute on chronic hypoxic and hypercarbic respiratory failure -patient at baseline uses 5 L oxygen, her home [employer] machine is not working, will need a new order on discharge, home O2 eval ordered -recently hospitalized here for same issue, discharged on 06/12/25 -wean O2 as tolerated, currently on 8->5 L oxygen nasal cannula, at home on 5 L -BNP elevated 2600 on presentation -diuresing well net -6 L -steroids: Solu-Medrol -> prednisone 60mg daily -nebs: Ipratropium, levalbuterol -antibiotics: Not indicated -diuresis: IV Lasix 40 mg-> bumex 1mg BID with potassium supplement. plan to discharge on bumex 1mg BID -appreciate cardiology consultation: Start Jardiance, continue Lasix IV 40 mg b.i.d., fluid restriction 1.5L/day -on Trelegy inhaler, Singulair -ABG with pH 7.3, pCO2 74.7, chronic component of hypercapnia Chronic conditions -atrial fibrillation: Rate control with metoprolol 150mg BID, amiodarone, not on anticoagulation due to complication with hematoma in rectus sheath -CAD: Aspirin full-dose -depression, mood disorder: Duloxetine, Seroquel, topiramate -supplements: Ferrous sulfate -allergies: Claritin -GERD: Protonix -RLS: requip -insomnia: Trazodone -morbid obesity: BMI 45.6, will need weight loss plan -DOMINIC with CPAP Diet: Heart healthy with 1500 cc fluid restriction DVT prophylaxis: SCDs Code status: Full code Disposition: home tomorrow Time Spent With Patient Time: 35 minutes Subjective Date/time seen: 07/08/25 09:14 Interval history: Patient seen and examined. She is doing well with no new complaints. Back to baseline 5 L oxygen by nasal cannula. She is diuresing well -6 L. recommendation cardiology is discharged on Bumex 1 mg twice daily. I will titrate down the steroids to prednisone p.o. and plan for discharge tomorrow. Will do a home O2 eval. Patient feels very weak up otherwise feels her breathing is improved. Review of Systems Review of Systems: 10 point ROS complete, negative other than what is specified in HPI. Exam Narrative: - GENERAL: Pleasant elderly woman - EYES: EOMI. - HENT: Moist mucous membranes. Edentulous - LUNGS: Clear to auscultation bilaterally, breathing comfortably on 5 L oxygen nasal cannula - CARDIOVASCULAR: Regular rate and rhythm. - ABDOMEN: Soft, non-tender and non-distended. - EXTREMITIES: Peripheral pulses 2+. - NEUROLOGIC: No focal neurological deficits. - PSYCHIATRIC: Awake, Alert and oriented x 3. Appropriate mood and affect. Objective Data Vital Signs Vital Signs: Vital Signs - 24 hr 07/07/25 09:37 07/07/25 09:40 07/07/25 10:00 Temperature Pulse Rate 95 95 83 Respiratory Rate Blood Pressure Pulse Oximetry Oxygen Delivery Oxygen Flow Rate 07/07/25 11:46 07/07/25 12:00 07/07/25 12:00 Temperature 36.8 C Pulse Rate 85 84 143 H Respiratory Rate 18 20 Blood Pressure 156/62 H Pulse Oximetry 95 Oxygen Delivery Oxygen Flow Rate 07/07/25 12:00 07/07/25 14:00 07/07/25 14:08 Temperature Pulse Rate 80 89 83 Respiratory Rate 18 Blood Pressure Pulse Oximetry 92 Oxygen Delivery Nasal Cannula Oxygen Flow Rate 6 07/07/25 14:15 07/07/25 16:00 07/07/25 16:00 Temperature 36.7 C Pulse Rate 79 84 82 Respiratory Rate 20 24 H Blood Pressure 104/49 L Pulse Oximetry 93 96 Oxygen Delivery Nasal Cannula Oxygen Flow Rate 6 07/07/25 16:00 07/07/25 18:00 07/07/25 19:59 Temperature 37.0 C Pulse Rate 116 H 86 74 Respiratory Rate 22 H Blood Pressure 166/53 H Pulse Oximetry 93 Oxygen Delivery Oxygen Flow Rate 07/07/25 20:00 07/07/25 20:23 07/07/25 20:26 Temperature Pulse Rate 80 96 Respiratory Rate 20 Blood Pressure Pulse Oximetry 96 Oxygen Delivery High Flow Nasal Cannula Oxygen Flow Rate 6 07/07/25 20:38 07/07/25 21:11 07/07/25 21:34 Temperature Pulse Rate 90 74 77 Respiratory Rate 20 22 H Blood Pressure Pulse Oximetry 93 Oxygen Delivery High Flow Nasal Cannula Oxygen Flow Rate 5 07/07/25 21:51 07/07/25 22:00 07/07/25 23:47 Temperature 36.5 C Pulse Rate 90 74 70 Respiratory Rate 18 20 Blood Pressure 150/48 H Pulse Oximetry 97 98 Oxygen Delivery BiPAP Oxygen Flow Rate 07/08/25 00:00 07/08/25 01:40 07/08/25 01:43 Temperature Pulse Rate 69 66 66 Respiratory Rate 14 14 Blood Pressure Pulse Oximetry 99 Oxygen Delivery BiPAP Oxygen Flow Rate 07/08/25 01:56 07/08/25 04:00 07/08/25 08:00 Temperature 36.5 C Pulse Rate 70 68 71 Respiratory Rate 15 20 Blood Pressure 144/71 H Pulse Oximetry 96 Oxygen Delivery Oxygen Flow Rate 07/08/25 08:15 07/08/25 08:16 07/08/25 09:04 Temperature Pulse Rate 72 66 Respiratory Rate 18 Blood Pressure Pulse Oximetry 100 Oxygen Delivery High Flow Therapy with Na Oxygen Flow Rate 5 07/08/25 09:05 Temperature Pulse Rate 66 Respiratory Rate Blood Pressure Pulse Oximetry Oxygen Delivery Oxygen Flow Rate Intake/Output Intake/Output: Intake & Output 07/05/25 07/06/25 07/07/25 07/08/25 23:59 23:59 23:59 23:59 Intake Total 2270 240 Output Total 7600 1150 Balance -5330 -910 Meds/Results Medications: Active Medications Generic Name Dose Route Start Last Admin Trade Name Freq PRN Reason Stop Dose Admin Amiodarone HCl 200 mg 07/07/25 08:00 07/08/25 09:04 Amiodarone Hcl 200 Mg Tablet PO 200 mg DAILY@0800 [facility] Administration Aspirin 325 mg 07/07/25 09:00 07/08/25 09:05 Aspirin 325 Mg Enteric Tablet PO 325 mg QAM YODIT Administration Azelastine HCl 1 spray 07/07/25 09:00 07/07/25 21:32 Azelastine Hcl Nasal 0.1% 137 Mcg/Spr 30 Ml Btl NASAL Not Given Q12HR [facility] Duloxetine HCl 20 mg 07/07/25 09:00 07/08/25 09:04 Duloxetine Hcl 20 Mg Capsule.Dr PO 20 mg DAILY YODIT Administration Empagliflozin 10 mg 07/07/25 09:00 07/08/25 09:05 Empagliflozin 10 Mg Tablet PO 10 mg DAILY YODIT Administration Ferrous Sulfate 325 mg 07/07/25 09:00 07/08/25 09:04 Ferrous Sulfate 325 Mg Tablet BY MOUTH 325 mg BID YODIT Administration Fluticasone Propionate 1 spray 07/07/25 09:00 07/07/25 16:57 Fluticasone Propionate 0.05% Na Spr 16 Gm Btl (*Bkc) NASAL 1 spray BID YODIT Administration Fluticasone/Umeclidinium/Vilanterol 1 puff 07/07/25 09:00 07/07/25 11:46 Fluticasone/Umeclidin/Vilanter 100-62.5-25 Mcg Ellipta INHALATION 1 puff DAILYRT YODIT Administration Furosemide 40 mg 07/07/25 09:00 07/08/25 09:06 Furosemide Inj 40 Mg/4 Ml Vial IV PUSH 40 mg Q12HR YODIT Administration Ipratropium Homer 0.5 mg 07/07/25 02:00 07/08/25 08:12 Ipratropium Br 0.02% Inh Soln 0.5 Mg/2.5 Ml Vial INHALATION 0.5 mg Q6HRT YODIT Administration Ipratropium Homer 0.5 mg 07/07/25 04:38 07/07/25 05:09 Ipratropium Br 0.02% Inh Soln 0.5 Mg/2.5 Ml Vial INHALATION 0.5 mg Q6HRT PRN Administration Shortness Of Breath Levalbuterol HCl 1.25 mg 07/07/25 02:00 07/08/25 08:12 Levalbuterol Neb 1.25 Mg/3 Ml INHALATION 1.25 mg Q6HRT YODIT Administration Levalbuterol HCl 1.25 mg 07/07/25 04:35 07/07/25 05:08 Levalbuterol Neb 1.25 Mg/3 Ml INHALATION 1.25 mg Q6HRT PRN Administration Wheezing Levalbuterol HCl 2 puff 07/07/25 08:28 Levalbuterol Hfa (*Sp) 15 Gm Inhaler INHALATION Q6H PRN Shortness Of Breath Or Wheezing Loratadine 10 mg 07/07/25 09:00 07/08/25 09:04 Loratadine 10 Mg Tablet PO 10 mg DAILY YODIT Administration Metoprolol Tartrate 150 mg 07/07/25 09:00 07/08/25 09:05 Metoprolol Tartrate 50 Mg Tab PO 150 mg Q12HR YODIT Administration Montelukast Sodium 10 mg 07/07/25 09:00 07/08/25 09:04 Montelukast Sodium 10 Mg Tablet PO 10 mg DAILY YODIT Administration Pantoprazole Sodium 40 mg 07/07/25 09:00 07/08/25 09:04 Pantoprazole 40 Mg Tablet PO 40 mg BID YODIT Administration Potassium Chloride 20 meq 07/07/25 09:00 07/08/25 09:05 Potassium Chloride 20 Meq Packet (For Liquid) PO 20 meq BID YODIT Administration Prednisone 60 mg 07/09/25 08:00 Prednisone 20 Mg Tablet PO DAILY@0800 YODIT Quetiapine Fumarate 25 mg 07/07/25 21:00 07/07/25 21:35 Quetiapine Fumarate 25 Mg Tablet PO 25 mg HS YODIT Administration Ropinirole HCl 4 mg 07/07/25 21:00 07/07/25 21:34 Ropinirole Hcl 1 Mg Tablet PO 4 mg HS YODIT Administration Topiramate 200 mg 07/07/25 09:00 07/08/25 09:05 Topiramate 100 Mg Tablet PO 200 mg Q12HR YODIT Administration Trazodone HCl 100 mg 07/07/25 21:00 07/07/25 21:35 Trazodone Hcl 50 Mg Tablet PO 100 mg HS YODIT Administration Radiology Results: ITS Impressions Chest X-Ray 07/06/25 21:16 IMPRESSION: Cardiomegaly with pulmonary edema suggestive of congestive heart failure. Labs Labs: Laboratory Results - last 24 hr 07/08/25 03:43 WBC 15.4 H RBC 4.07 L Hgb 10.0 L Hct 35.0 L MCV 86.0 MCH 24.6 L MCHC 28.6 L RDW 16.1 H Plt Count 207 MPV 9.1 Sodium 131 L Potassium 4.4 Chloride 87 L Carbon Dioxide > 40 H Anion Gap BUN 31 H Creatinine 1.39 H Estim Creat Clear Calc 48 Estimated GFR 38 L Glucose 176 H Calcium 9.3 Magnesium 2.1
[2025-07-08] MEDS: FLUTICASONE/UMECLIDIN/VILANTER 100-62.5-25 MCG ELLIPTA 1 PUFF INHALATION (13:43)
[2025-07-08] MEDS: BUMETANIDE 1 MG TABLET PO (16:46)
[2025-07-08] MEDS: AZELASTINE HCL NASAL 0.1% 137 MCG/SPR 30 ML BTL 1 SPRAY NASAL (20:24)
[2025-07-09] VITALS (21 sets, daily range): BP systolic 136–148; BP diastolic 57–60; PULSE 54–100; RESP 14–19; TEMP 36.6–36.7; O2SAT 87–98
[2025-07-09] MEDS: IPRATROPIUM BR 0.02% INH SOLN 0.5 MG/2.5 ML VIAL INHALATION ×2 (02:57→08:49)
[2025-07-09 04:45] LABS: Hematocrit 39.3 % (37.0-47.0); Hemoglobin 10.8 g/dL (12.0-15.0); Mean Corpuscular HGB Conc 27.5 g/dl (32-36); Mean Corpuscular Hemoglobin 24.2 pg (26-34); Mean Corpuscular Volume 87.9 fl (80-100); Platelet Count Result 257 k/mm3 (150-375); Red Blood Count 4.47 M/mm3 (4.2-5.4); White Blood Count 15.0 K/mm3 (4.5-10.0)
[2025-07-09 05:13] LABS: Anion Gap 5 mmol/L (4-12); Blood Urea Nitrogen 43 mg/dL (7-17); Calcium 9.5 mg/dL (8.4-10.2); Carbon Dioxide 38 mmol/L (22-30); Chloride 91 mmol/L (98-107); Estimated CRCL calculation 44 ml/min; Estimated Glomerular Filt Rate 34; Glucose 131 mg/dL (65-110); Magnesium 2.6 mg/dL (1.6-2.3); Potassium 4.1 mmol/L (3.4-5.0); Sodium 134 mmol/L (137-145)
[2025-07-09] MEDS: FLUTICASONE/UMECLIDIN/VILANTER 100-62.5-25 MCG ELLIPTA 1 PUFF INHALATION (08:50)
[2025-07-09] MEDS: AMIODARONE HCL 200 MG TABLET PO (09:01)
[2025-07-09] MEDS: EMPAGLIFLOZIN 10 MG TABLET PO (09:06)
[2025-07-09] MEDS: BUMETANIDE 1 MG TABLET PO (09:06)
[2025-07-09] MEDS: TOPIRAMATE 100 MG TABLET 200 MG PO (09:06)
[2025-07-09] MEDS: PANTOPRAZOLE 40 MG TABLET PO (09:07)
[2025-07-09] MEDS: METOPROLOL TARTRATE 50 MG TAB 150 MG PO (09:07)
[2025-07-09] MEDS: LORATADINE 10 MG TABLET PO (09:07)
[2025-07-09] MEDS: FERROUS SULFATE 325 MG TABLET BY MOUTH (09:07)
[2025-07-09] MEDS: MONTELUKAST SODIUM 10 MG TABLET PO (09:07)
[2025-07-09] MEDS: ASPIRIN 325 MG ENTERIC TABLET PO (09:08)
[2025-07-09] MEDS: POTASSIUM CHLORIDE 20 MEQ PACKET (FOR LIQUID) PO (09:17)
[2025-07-09] MEDS: FLUTICASONE PROPIONATE 0.05% NA SPR 16 GM BTL (*BKC) 1 SPRAY NASAL (09:20)
[2025-07-09] MEDS: AZELASTINE HCL NASAL 0.1% 137 MCG/SPR 30 ML BTL 1 SPRAY NASAL (09:20)
--- NOTE | 2025-07-09 11:04 | HOMEO2EVAL ---
Evaluation was performed at [facility] Home Oxygen Evaluation RC: Home Oxygen (O2) Evaluation Start: 07/08/25 09:13 Freq: ONCE Status: Active Protocol: RPE Activity Type Activity Date Activity User E-sign Co-sign Detail Recorded Client Recorded Date Recorded By Document 07/09/25 09:55 SATNAM [email or web address] 07/09/25 10:47 SATNAM Document 07/09/25 10:07 SATNAM [email or web address] 07/09/25 10:58 SATNAM Document 07/09/25 10:10 SATNAM [email or web address] 07/09/25 10:59 [facility] Document 07/09/25 10:12 [facility] [email or web address] 07/09/25 11:00 [facility] Document 07/09/25 10:15 [facility] [email or web address] 07/09/25 11:03 [facility] Document 07/09/25 10:00 [facility] [email or web address] 07/09/25 10:51 [facility] Document 07/09/25 10:02 [facility] [email or web address] 07/09/25 10:52 [facility] Document 07/09/25 10:05 [facility] [email or web address] 07/09/25 10:51 SATNAM 07/09/25 07/09/25 07/09/25 09:55 10:07 10:10 Home O2 Evaluation [Oxygen] -Test Phase Resting Exercise Exercise -Oxygen Delivery Room Air Nasal Cannula Nasal Cannula -Oxygen Flow Rate (L/min) 5 6 [Pulse Oximetry] -Pulse Oximetry (90-100 %) 87 L 87 L 91 [Pulse Rate] -Pulse Rate (60-100 beats/min) 58 L 68 70 [Evaluation] -Activity Tolerance -Rating of Perceived Dyspnea (PD) -Rate of Perceived Exertion (PE) Query Text:Click the Protocol Button to View the RPE Scale [Exercise] -Ambulation Distance (feet) -Ambulation Distance (meters) [Comments] -Home Oxygen Evaluation Comments [Charges] -Evaluation Charges 07/09/25 07/09/25 07/09/25 10:12 10:15 10:00 Home O2 Evaluation [Oxygen] -Test Phase Exercise Resting Resting -Oxygen Delivery Nasal Cannula Nasal Cannula Nasal Cannula -Oxygen Flow Rate (L/min) 6 6 2 [Pulse Oximetry] -Pulse Oximetry (90-100 %) 92 91 89 L [Pulse Rate] -Pulse Rate (60-100 beats/min) 70 72 61 [Evaluation] -Activity Tolerance Good -Rating of Perceived Dyspnea (PD) +2 Mild, Some Difficulty, Noticeable to the Observer -Rate of Perceived Exertion (PE) 11 Fairly light Query Text:Click the Protocol Button to View the RPE Scale [Exercise] -Ambulation Distance (feet) 200 -Ambulation Distance (meters) 60.95 [Comments] -Home Oxygen Evaluation Comments Patient required 6l with activity 5 l at rest [Charges] -Evaluation Charges O2 Evaluation by 07/09/25 07/09/25 10:02 10:05 Home O2 Evaluation [Oxygen] -Test Phase Exercise Exercise -Oxygen Delivery Nasal Cannula Nasal Cannula -Oxygen Flow Rate (L/min) 3 4 [Pulse Oximetry] -Pulse Oximetry (90-100 %) 88 L 88 L [Pulse Rate] -Pulse Rate (60-100 beats/min) 65 61 [Evaluation] -Activity Tolerance -Rating of Perceived Dyspnea (PD) -Rate of Perceived Exertion (PE) Query Text:Click the Protocol Button to View the RPE Scale [Exercise] -Ambulation Distance (feet) -Ambulation Distance (meters) [Comments] -Home Oxygen Evaluation Comments [Charges] -Evaluation Charges
--- NOTE | 2025-07-09 13:03 | P.DS_ITS ---
DS: Admitting Diagnosis Discharge Date 07/09/25 Admitting Diagnosis Acute CHF exacerbation, acute on chronic hypoxic and hypercarbic respiratory failure DS: Discharge Diagnosis Discharge Diagnosis (1) Acute exacerbation of CHF (congestive heart failure): Qualifiers: Heart failure type: unspecified Qualified Code(s): I50.9 - Heart failure, unspecified Code(s): I50.9 - Heart failure, unspecified Status: Acute (2) PAF (paroxysmal atrial fibrillation): Code(s): I48.0 - Paroxysmal atrial fibrillation Status: Acute (3) Acute on chronic respiratory failure with hypoxia and hypercapnia: Code(s): J96.21 - Acute and chronic respiratory failure with hypoxia; J96.22 - Acute and chronic respiratory failure with hypercapnia Status: Acute Plan Acute on chronic heart failure exacerbation Acute COPD exacerbation Acute on chronic hypoxic and hypercarbic respiratory failure -patient at baseline uses 5 L oxygen, she requested new [facility] orders, home O2 eval 07/09 -recently hospitalized here for same issue, discharged on 06/12/25 -wean O2 as tolerated, currently on 8->5 L oxygen nasal cannula, at home on 5 L -BNP elevated 2600 on presentation, total net -7540cc output -echocardiogram 05/26/2025: EF 60-65%, mild RVE, mild LAE, trace AI, mild MR/TR, RVSP 55 mmHg. -steroids: prednisone 60mg for 5 day course -nebs: DuoNeb p.r.n. -antibiotics: Not indicated -diuresis: bumex 1mg BID with potassium supplement. plan to discharge on bumex 1mg BID -appreciate cardiology Dr. Meade consultation: Start Jardiance, change Lasix to Bumex, fluid restriction 1.5L/day -on Trelegy inhaler, Singulair -ABG with pH 7.3, pCO2 74.7, chronic component of hypercapnia Chronic conditions -atrial fibrillation: Rate control with metoprolol 150mg BID, amiodarone, not on anticoagulation due to complication with hematoma in rectus sheath -CAD: Aspirin full-dose -depression, mood disorder: Duloxetine, Seroquel, topiramate -supplements: Ferrous sulfate -allergies: Claritin -GERD: Protonix -RLS: requip -insomnia: Trazodone -morbid obesity: BMI 45.6, will need weight loss plan -DOMINIC with CPAP Diet: Heart healthy with 1500 cc fluid restriction DVT prophylaxis: SCDs Code status: Full code Disposition: home DS: Summary Hospital Course Reason for hospitalization: Acute on chronic hypoxic and hypercapnic respiratory failure Hospital Course: Patient is a 65-year-old female with past medical history of obesity class 3, COPD, chronic hypoxic and hypercarbic respiratory failure on 5 L home oxygen therapy, DOMINIC on CPAP, atrial fibrillation, CKD stage 3, hypertension, GERD, anemia, HFpEF who presents to ED on 07/06 with dyspnea. Patient found to have CHF exacerbation and COPD exacerbation. She was treated with IV Lasix and Cardiology consultation recommended adding Jardiance and discharging on Bumex 1 mg b.i.d. during hospitalization she had net -7500 cc output. For her atrial fibrillation heart rate was stable on her home metoprolol 150 mg twice daily and amiodarone. Patient does not want to be on anticoagulation for atrial fibrillation due to issue with a rectal sheath hematoma. We also gave her steroids for COPD exacerbation which will be titrated down to prednisone 60 mg daily. We also treated with nebulized treatments as needed. No antibiotics were indicated during hospitalization. She was hospitalized from 07/06-07/09. At time of discharge, her labs are stable, vitals stable, patient is stable for discharge home. She will follow-up with her PCP and water pollution scientist. She understands agrees with plan Status at Discharge Cognitive/behavioral status at discharge: Baseline Time Spent with Patient Time attestation: Total time spent providing and/or coordinating discharge services: 40 minutes Exam Narrative: - GENERAL: Pleasant elderly woman - EYES: EOMI. - HENT: Moist mucous membranes. Edentul ous - LUNGS: Clear to auscultation bilateral ly, breathing comfortably on 5 L oxygen nasal cannula - CARDIOVASCULAR: Regular rate and rhyth m. - ABDOMEN: Soft, non-tender and non-dist ended. - EXTREMITIES: Peripheral pulses 2+. - NEUROLOGIC: No focal neurological defi cits. - PSYCHIATRIC: Awake, Alert and oriented x 3. Appropriate mood and affect. DS: Data Data Completed and Pending Labs on day of discharge: Labs from last 24 hours 07/09/25 04:28 WBC 15.0 H RBC 4.47 Hgb 10.8 L Hct 39.3 MCV 87.9 MCH 24.2 L MCHC 27.5 L RDW 16.6 H Plt Count 257 MPV 9.2 Sodium 134 L Potassium 4.1 Chloride 91 L Carbon Dioxide 38 H Anion Gap 5 BUN 43 H D Creatinine 1.53 H Estim Creat Clear Calc 44 Estimated GFR 34 L Glucose 131 H Calcium 9.5 Magnesium 2.6 H Imaging Radiologist's impression: CXR 07/06 IMPRESSION: Cardiomegaly with pulmonary edema suggestive of congestive heart failure. Discharge Plan Discharge Attending physician on discharge: Brandan Jin Consulting providers: Hong Meade Discharging Clinician: Brandan Jin Anticipated Discharge Date/Time: 07/09/25 12:54 Patient Disposition: Home Activity: as tolerated Diet: heart healthy Discharge Instructions: For heart failure we are changing the Lasix to Bumex 1 mg twice daily. Cardiology also is recommending adding Jardiance. Please follow-up with Dr. Meade cardiology. For COPD we will continue with DuoNebs as needed to short course steroid prednisone. Follow up to PCP in 1 week Patient Instructions: Antibiotic Form, Heart Failure (GEN), COPD (Chronic Obstructive Pulmonary Disease) (GEN), Low-Sodium Diet (GEN) Patient Language: German Stand Alone Forms: General Discharge Information Follow-up/Referrals: Hong Meade DO [Physician, Cardiology] - 2 Weeks Ben Golden MD [Primary Care Provider, Internal Medicine] - 1 Week Discharge Medications: New ipratropium-albuterol 0.5 mg-3 mg(2.5 mg base)/3 mL solution for nebulization 3 ml inhalation QID PRN (Reason: shortness of breath or wheezing) Qty: 180 0RF Jardiance 10 mg Tablet 10 mg PO DAILY 30 Days Qty: 30 0RF prednisone 20 mg Tablet 60 mg PO DAILY@0800 4 Days Qty: 12 0RF bumetanide 1 mg Tablet 1 mg PO BID 30 Days Qty: 60 0RF Continued benzonatate 200 mg capsule 200 mg PO BID PRN (Reason: cough) Qty: 90 6RF aspirin 325 mg Tablet,Delayed Release (Dr/Ec) 325 mg PO QAM 30 Days Qty: 30 0RF amiodarone 200 mg tablet 200 mg PO DAILY 30 Days Qty: 30 5RF trazodone 100 mg tablet 100 mg PO HS 30 Days Qty: 0 0RF ferrous sulfate 325 mg (65 mg iron) tablet 325 mg PO BID 30 Days Qty: 60 0RF montelukast 10 mg tablet 10 mg PO DAILY 30 Days Qty: 0 0RF azelastine 137 mcg (0.1 %) spray,non-aerosol 1 spray intranasal Q12H 30 Days Qty: 30 5RF Rx Instructions: administer into each nostril topiramate 100 mg tablet 200 mg PO BID 30 Days Qty: 0 0RF fluticasone propionate [Flonase Allergy Relief] 50 mcg/actuation spray,suspension 1 spray intranasal BID 30 Days Qty: 16 5RF Rx Instructions: administer into each nostril Trelegy Ellipta 100-62.5-25 mcg blister with device 1 inh inhalation DAILY 30 Days Qty: 28 1RF quetiapine 25 mg tablet 25 mg PO HS 30 Days Qty: 30 0RF omeprazole 40 mg capsule,delayed release(DR/EC) 40 mg PO DAILY 30 Days Qty: 30 0RF loratadine [Claritin] 10 mg tablet 10 mg PO DAILY 30 Days Qty: 30 6RF ropinirole 4 mg tablet 4 mg PO HS 30 Days Qty: 30 0RF duloxetine 20 mg capsule,delayed release(DR/EC) 20 mg PO DAILY 30 Days Qty: 30 0RF metoprolol tartrate 50 mg Tablet 150 mg PO Q12HR Qty: 180 0RF potassium chloride 20 mEq Packet 20 meq PO BID 30 Days Qty: 60 0RF levalbuterol tartrate 45 mcg/actuation HFA aerosol inhaler 2 puff INHALATION Q6H PRN (Reason: shortness of breath or wheezing) Discontinued furosemide 40 mg Tablet 40 mg PO BID Qty: 60 0RF Date of admission: 07/07/25 07:58 Primary Care Provider: Ben Golden Admitting Provider: Angie Art Attending physician on admission: Angie Art Condition: Stable Hospitalist MIPS Heart Failure (Exclusion) Patient has history of Heart Transplant or Left Ventricular Assistive Device?: No IF YES, STOP HERE Heart Failure (Qualifier) Patient has current or prior documentation of LVEF less than or equal to 40%, or mod/servere depressed LVSF?: No IF NO, STOP HERE
== END 2025-07-09 14:40 | disposition home or self-care (01) | DRG 291 ==
LOC: ANHED 21:44 → ANHIMU 22:38
PROVIDERS: Admitting Provider General Practice; Emergency Provider Emergency Medicine; PCP Internal Medicine; Visit Provider Student in an Organized Health Care Education/Training Program
DX: I13.0 Hypertensive heart and chronic kidney disease with heart failure and stage 1 through stage 4 chronic kidney disease, or unspecified chronic kidney disease (principal); I50.33 Acute on chronic diastolic (congestive) heart failure; J96.21 Acute and chronic respiratory failure with hypoxia; J96.22 Acute and chronic respiratory failure with hypercapnia; I48.92 Unspecified atrial flutter; Z68.42 Body mass index [BMI] 45.0-49.9, adult; D63.1 Anemia in chronic kidney disease; E66.01 Morbid (severe) obesity due to excess calories; J44.9 Chronic obstructive pulmonary disease, unspecified; G47.33 Obstructive sleep apnea (adult) (pediatric); I48.0 Paroxysmal atrial fibrillation; K21.9 Gastro-esophageal reflux disease without esophagitis; N18.30 Chronic kidney disease, stage 3 unspecified; Z99.81 Dependence on supplemental oxygen; Z99.89 Dependence on other enabling machines and devices; Z79.01 Long term (current) use of anticoagulants; Z79.82 Long term (current) use of aspirin; Z86.73 Personal history of transient ischemic attack (TIA), and cerebral infarction without residual deficits; Z90.49 Acquired absence of other specified parts of digestive tract; Z96.652 Presence of left artificial knee joint; Z87.891 Personal history of nicotine dependence; Z20.822 Contact with and (suspected) exposure to COVID-19; Z79.84 Long term (current) use of oral hypoglycemic drugs
CPT/HCPCS: 36415; 36600; 71045; 80048; 80053; 82375; 82805; 83050; 83735; 83880; 85018; 85025; 85027; 85610; 85730; 87637; 93005; 94002; 94003; 94618; 94640; 96374; 96375; 96376; 99285; A9270; G0378; J1938; J2919; J7512